=== PATIENT | male | born 1965 | race Caucasian/White ===

== ENCOUNTER 2016-10-26 11:47 | Emergency (ER) | payer MEDICAID, OTHER ==
[~2016-10-26 11:47] MED LIST: AMMO12CR4 TOP; ARTI99.0 OU; BUSP10TA PO; CETI10TA PO; COLA100C PO; DOCU100C PO; FLOM5CAP PO; FLUTISP; GABA300C3 PO; HYDR-3713 PO; IBUP600T26 PO; IRON65TA PO; LEVO75TA4 PO; LEXA1TAB PO; NAPR500T2 PO; OMEP40CA2 PO; ONDA4TAB6 PO; PERC5TAB6 PO; RISP0.5T3 PO; RISP2TAB3 PO; VITA500046 PO; VITMTA PO; ZOCO40TA PO
[2016-10-26] MEDS ORDERED: ONDANSETRON 4 MG ORAL DISINTEGRATING TAB (S0181) As Ordered ONE (12:34)
[2016-10-26] MEDS ORDERED: ACETAMINOPHEN 325 MG TAB As Ordered ONE (12:35)
--- NOTE | 2016-10-26 13:59 | EDDOCDS ---
Physician Documentation [facility] Name: Rinku Whelan Age: 51 yrs Sex: Male : 1965 Arrival Date: 10/26/2016 Time: 11:47 Bed I6 / 28 Private MD: Bladimir Ramirez MD Disposition: 10/26/16 13:41 Discharged to Home/Self Care. Impression: Nausea and vomiting - likely viral gastroenteritis, Diarrhea, unspecified, Other hemorrhoids - external, inflammed with mild bleeding. - Condition is Stable. - Discharge Instructions: Hemorrhoids, Viral Gastroenteritis. - Prescriptions for Anusol- HC 2.5 % Rectal Cream - Apply to affected area 1 application by TOPICAL route every 8 hours As needed; 30 gram. ZOFRAN ODT 4 mg Oral - dissolve 1 tablet by ORAL route every 8 hours As needed do not chew, do not swallow whole; 10 tablet. - Medication Reconciliation, Local Pharmacy Hours form. - Follow up: Bladimir Ramirez; When: Call to arrange an appointment; Reason: Recheck today's complaints. Follow up: Emergency Department; When: As needed; Reason: Worsening of conditions. - Problem is new. - Symptoms have improved. Historical: - Allergies: Codeine Sulfate (Vomit); - Home Meds: 1. buspirone 5 mg Oral tab 1 tab 2 times per day (Last dose: 10/26/2016 07:00) 2. docusate sodium 100 mg Oral cap 1 cap 2 times per day (Last dose: 10/26/2016 07:00) 3. ferrous sulfate 325 mg (65 mg iron) Oral tab 325 mg twice a day (Last dose: 10/26/2016 07:00) 4. Fish Oil 360-1,200 mg Oral cap twice a day (Last dose: 10/26/2016 07:00) 5. gabapentin 300 mg Oral cap 2 caps 2 caps in am, 2 caps at noon and 3 caps at HS (Last dose: 10/26/2016 07:00) 6. Lexapro 30 mg Oral once daily HS (Last dose: 10/25/2016) 7. risperidone 0.5 mg oral tab once daily HS (Last dose: 10/25/2016) 8. Synthroid 75 mcg Oral tab 1 tab once daily (Last dose: 10/26/2016 07:00) 9. tizanidine 4 mg oral cap 1 cap daily (Last dose: 10/25/2016) 10. Vitamin D Oral 1000 unit daily (Last dose: 10/26/2016 07:00) 11. Zocor 40 mg Oral tab 1 tab once daily (Last dose: 10/26/2016 07:00) 12. Zyrtec 10 mg Oral chew 1 tab once daily (Last dose: 10/26/2016 07:00) 13. aspirin 81 mg Oral tab 1 tab once daily (Last dose: 10/26/2016 07:00) 14. Protonix 40 mg Oral TbEC 1 tab once daily (Last dose: 10/26/2016 07:00) - PMHx: Depression; GERD; Hypercholesterolemia; Hypertension; Hypothyroidism; Kidney stones; Panic Attacks; Sciatica; - PSHx: Left foot surgery; Hemorrhoidectomy; Carpal Tunnel Repair- Right; - Social history: Smoking status: Patient states former smoker of tobacco. No barriers to communication noted, The patient speaks fluent Chilean, Speaks appropriately for age. - Family history: Not pertinent. - : The pt / caregiver states he / she is not on anticoagulants. Home medication list is obtained from the patient. - Exposure Risk Screening:: None identified. Vital Signs: 10/26 11:48 BP 134 / 83; Pulse 84; Resp 18 S; Temp 97.1(O); Pulse Ox 97% on R/A; Weight 129.27 kg / gr2 284.99 lbs (R); Height 5 ft. 8 in. (172.72 cm) (R); Pain 4/10; 13:41 BP 151 / 80; Pulse 57; Resp 20; Temp 97.6; Pulse Ox 96% ; Pain 4/10; jam1 11:48 Body Mass Index 43.33 (129.27 kg, 172.72 cm) gr2 MDM: 12:08 [facility] [place] was scanned into [employer] and attached to record. lg 12:32 Ondansetron ODT Oral Disintegrating Tablet 4 mg PO once ordered. ar2 12:32 Acetaminophen Tablet 975 mg PO once ordered. ar2 12:32 Undress patient appropriately for examination ordered. ar2 12:32 Misc. Nursing Order ordered. ar2 12:34 Financial registration complete. lg 13:00 Fluid Challenge ordered. ar2 Administered Medications: 12:38 Drug: Ondansetron ODT 4 mg [ondansetron 4 mg disintegrating tablet (1 tabs)] Route: PO; pml 12:38 Drug: Acetaminophen 975 mg [acetaminophen 325 mg tablet (3 tabs)] Route: PO; pml Signatures: Vivi Griffin RN RN dls Thom Curiel, Reg Reg lg Mariana Gallagher RN RN jo3 Rinku Alegria PA-C PAKeyshawn ar2 Fina Peterson RN RN pml The chart was reviewed and I authenticate all verbal orders and agree with the evaluation and treatment provided.Attachments: 12:08 [facility] Payment Agreement lg MTDD
--- NOTE | 2016-10-26 13:59 | EDDOCDS ---
Nurse's Notes [facility] Name: Rinku Whelan Age: 51 yrs Sex: Male : 1965 Arrival Date: 10/26/2016 Time: 11:47 Bed I6 / 28 Private MD: Bladimir Ramirez MD Diagnosis: Nausea and vomiting-likely viral gastroenteritis;Diarrhea, unspecified;Other hemorrhoids-external, inflammed with mild bleeding Presentation: 10/26 11:52 Presenting complaint: Patient states: Stomach cramps, STYLES and bright red blood rectally. jo3 No significant blood noted in toilet but has blood after a BM. History of bleeding hemorrhoids and hemorrhoidectomy. This patient has no additional risk factors. Adult Sepsis Screening: The patient does not have new or worsening altered mentation. Patient's respiratory rate is less than 22. Systolic blood pressure is greater than 100. Patient has a qSOFA score of 0- Negative Sepsis Screen. Suicide/Homicide risk assessment- the patient denies having any suicidal and/or homicidal ideations and does not present with any other emotional, behavioral or mental health complaints. Status: Patient is not a fast food services manager or dependent. Transition of care: patient was not received from another setting of care. 11:52 Acuity: PAULA Level 3 jo3 11:52 Method Of Arrival: Walkin/Carried/Asstd jo3 Triage Assessment: 11:58 Headache History: This headache is like all previous headaches. General: Appears in no jo3 apparent distress, comfortable, Behavior is appropriate for age, cooperative. Pain: Pain currently is 6 out of 10 on a pain scale. HIV screening NA for this visit Offered previously. Neurological: Level of Consciousness is awake, alert, Oriented to person, place, time. Respiratory: Airway is patent Respiratory effort is even, unlabored. Derm: Skin is pink, warm & dry. Historical: - Allergies: Codeine Sulfate (Vomit); - Home Meds: 1. buspirone 5 mg Oral tab 1 tab 2 times per day (Last dose: 10/26/2016 07:00) 2. docusate sodium 100 mg Oral cap 1 cap 2 times per day (Last dose: 10/26/2016 07:00) 3. ferrous sulfate 325 mg (65 mg iron) Oral tab 325 mg twice a day (Last dose: 10/26/2016 07:00) 4. Fish Oil 360-1,200 mg Oral cap twice a day (Last dose: 10/26/2016 07:00) 5. gabapentin 300 mg Oral cap 2 caps 2 caps in am, 2 caps at noon and 3 caps at HS (Last dose: 10/26/2016 07:00) 6. Lexapro 30 mg Oral once daily HS (Last dose: 10/25/2016) 7. risperidone 0.5 mg oral tab once daily HS (Last dose: 10/25/2016) 8. Synthroid 75 mcg Oral tab 1 tab once daily (Last dose: 10/26/2016 07:00) 9. tizanidine 4 mg oral cap 1 cap daily (Last dose: 10/25/2016) 10. Vitamin D Oral 1000 unit daily (Last dose: 10/26/2016 07:00) 11. Zocor 40 mg Oral tab 1 tab once daily (Last dose: 10/26/2016 07:00) 12. Zyrtec 10 mg Oral chew 1 tab once daily (Last dose: 10/26/2016 07:00) 13. aspirin 81 mg Oral tab 1 tab once daily (Last dose: 10/26/2016 07:00) 14. Protonix 40 mg Oral TbEC 1 tab once daily (Last dose: 10/26/2016 07:00) - PMHx: Depression; GERD; Hypercholesterolemia; Hypertension; Hypothyroidism; Kidney stones; Panic Attacks; Sciatica; - PSHx: Left foot surgery; Hemorrhoidectomy; Carpal Tunnel Repair- Right; - Social history: Smoking status: Patient states former smoker of tobacco. No barriers to communication noted, The patient speaks fluent French, Speaks appropriately for age. - Family history: Not pertinent. - : The pt / caregiver states he / she is not on anticoagulants. Home medication list is obtained from the patient. - Exposure Risk Screening:: None identified. Screenin:38 Screening information is obtained from the patient. Fall risk: No risks identified. pml Assistance ADL's: requires no assistance with activities of daily living. Abuse/DV Screen: The patient / caregiver reports he/she is: not in a situation that causes fear, pain or injury. Nutritional screening: No deficits noted. Advance Directives: Currently, there is no health care proxy. home support is adequate. Assessment: 12:38 General: Appears in no apparent distress, comfortable, Behavior is appropriate for age, pml cooperative. Pain: Location: scalp and abdomen Pain currently is 6 out of 10 on a pain scale. Neurological: Level of Consciousness is awake, alert, Oriented to person, place, time. Cardiovascular: Capillary refill < 3 seconds. Respiratory: Airway is patent Respiratory effort is even, unlabored, Respiratory pattern is regular, symmetrical. GI: Abdomen is non- distended. GI: Reports bloody stools. Derm: Skin is pink, warm & dry. Vital Signs: 11:48 BP 134 / 83; Pulse 84; Resp 18 S; Temp 97.1(O); Pulse Ox 97% on R/A; Weight 129.27 kg gr2 (R); Height 5 ft. 8 in. (172.72 cm) (R); Pain 4/10; 13:41 BP 151 / 80; Pulse 57; Resp 20; Temp 97.6; Pulse Ox 96% ; Pain 4/10; jam1 11:48 Body Mass Index 43.33 (129.27 kg, 172.72 cm) gr2 Vitals: 11:48 Log In Time: October 26, 2016 at 11:48. gr2 ED Course: 11:48 Patient visited by Marjorie Watts. gr2 11:48 Bladimir Ramirez is Private Physician. gr2 11:48 Patient moved to Waiting gr2 11:49 Patient visited by Marjorie Watts. gr2 11:49 Patient moved to Pre RCE gr2 11:54 Triage Initiated jo3 11:59 Patient visited by Mariana Gallagher RN. jo3 11:59 Patient moved to Triage 3 jo3 12:07 Patient name changed from Rinku\S\Shane\S\Eckerman\S\ to Rinku\S\J\S\Tip. EDMS 12:08 [facility] Payment Agreement was scanned into [employer] and attached to record. lg 12:26 Rinku Alegria PA-C is PHCP. ar2 12:26 Jordan Sy MD is Attending Physician. ar2 12:26 Patient visited by Rinku Alegria PA-C. ar2 12:36 Patient moved to I pml 12:38 The patient / caregiver is instructed regarding the plan of care and ED course. Patient pml has correct armband on for positive identification. Placed in gown. Bed in low position. Call light in reach. 12:40 Patient visited by Fina Peterson,ANNE. pml 13:40 Bladimir Ramirez is Referral Physician. ar2 13:58 No IV's were initiated during this patient's visit. No procedures done that require dls assistance. Administered Medications: 12:38 Drug: Ondansetron ODT 4 mg [ondansetron 4 mg disintegrating tablet (1 tabs)] Route: PO; pml 12:38 Drug: Acetaminophen 975 mg [acetaminophen 325 mg tablet (3 tabs)] Route: PO; pml Order Results: There are currently no results for this order. Outcome: 13:41 Discharge ordered by Provider. ar2 13:57 Discharge Assessment: Patient awake, alert and oriented x 3. No cognitive and/or dls functional deficits noted. Patient verbalized understanding of disposition instructions. patient administered narcotics - no. The following High Risk Discharge criteria are identified: None. Discharged to home ambulatory. Condition: stable. Discharge instructions given to patient, Instructed on discharge instructions, follow up and referral plans. medication usage, Demonstrated understanding of instructions, medications, Pt was receptive of discharge instructions/ teaching. Prescriptions given X 2. No special radiology studies were completed. Property :Personal belongings accompany Pt. 13:58 Patient left the ED. dls Signatures: Dispatcher [employer] EDMS Vivi Griffin RN RN Prerna Angeles, SYSTEMS ADMINISTRATOR SYSTEMS ADMINISTRATOR jam1 Thom Curiel, Reg Reg lg Mariana Gallagher RN RN jo3 Robertshaw, Aaron, PA-Renzo PA-C ar2 Fina Peterson,Marjorie Hernandez RN gr2 MTDD
--- NOTE | 2016-10-28 15:00 | EDDOCDS ---
Nurse's Notes [facility] Name: Rinku Whelan Age: 51 yrs Sex: Male : 1965 Arrival Date: 10/26/2016 Time: 11:47 Bed I6 / 28 Private MD: Bladimir Ramirez MD Diagnosis: Nausea and vomiting-likely viral gastroenteritis;Diarrhea, unspecified;Other hemorrhoids-external, inflammed with mild bleeding Presentation: 10/26 11:52 Presenting complaint: Patient states: Stomach cramps, STYLES and bright red blood rectally. jo3 No significant blood noted in toilet but has blood after a BM. History of bleeding hemorrhoids and hemorrhoidectomy. This patient has no additional risk factors. Adult Sepsis Screening: The patient does not have new or worsening altered mentation. Patient's respiratory rate is less than 22. Systolic blood pressure is greater than 100. Patient has a qSOFA score of 0- Negative Sepsis Screen. Suicide/Homicide risk assessment- the patient denies having any suicidal and/or homicidal ideations and does not present with any other emotional, behavioral or mental health complaints. Status: Patient is not a insurance service representative or dependent. Transition of care: patient was not received from another setting of care. 11:52 Acuity: PAULA Level 3 jo3 11:52 Method Of Arrival: Walkin/Carried/Asstd jo3 Triage Assessment: 11:58 Headache History: This headache is like all previous headaches. General: Appears in no jo3 apparent distress, comfortable, Behavior is appropriate for age, cooperative. Pain: Pain currently is 6 out of 10 on a pain scale. HIV screening NA for this visit Offered previously. Neurological: Level of Consciousness is awake, alert, Oriented to person, place, time. Respiratory: Airway is patent Respiratory effort is even, unlabored. Derm: Skin is pink, warm & dry. Historical: - Allergies: Codeine Sulfate (Vomit); - Home Meds: 1. buspirone 5 mg Oral tab 1 tab 2 times per day (Last dose: 10/26/2016 07:00) 2. docusate sodium 100 mg Oral cap 1 cap 2 times per day (Last dose: 10/26/2016 07:00) 3. ferrous sulfate 325 mg (65 mg iron) Oral tab 325 mg twice a day (Last dose: 10/26/2016 07:00) 4. Fish Oil 360-1,200 mg Oral cap twice a day (Last dose: 10/26/2016 07:00) 5. gabapentin 300 mg Oral cap 2 caps 2 caps in am, 2 caps at noon and 3 caps at HS (Last dose: 10/26/2016 07:00) 6. Lexapro 30 mg Oral once daily HS (Last dose: 10/25/2016) 7. risperidone 0.5 mg oral tab once daily HS (Last dose: 10/25/2016) 8. Synthroid 75 mcg Oral tab 1 tab once daily (Last dose: 10/26/2016 07:00) 9. tizanidine 4 mg oral cap 1 cap daily (Last dose: 10/25/2016) 10. Vitamin D Oral 1000 unit daily (Last dose: 10/26/2016 07:00) 11. Zocor 40 mg Oral tab 1 tab once daily (Last dose: 10/26/2016 07:00) 12. Zyrtec 10 mg Oral chew 1 tab once daily (Last dose: 10/26/2016 07:00) 13. aspirin 81 mg Oral tab 1 tab once daily (Last dose: 10/26/2016 07:00) 14. Protonix 40 mg Oral TbEC 1 tab once daily (Last dose: 10/26/2016 07:00) - PMHx: Depression; GERD; Hypercholesterolemia; Hypertension; Hypothyroidism; Kidney stones; Panic Attacks; Sciatica; - PSHx: Left foot surgery; Hemorrhoidectomy; Carpal Tunnel Repair- Right; - Social history: Smoking status: Patient states former smoker of tobacco. No barriers to communication noted, The patient speaks fluent Yoruba, Speaks appropriately for age. - Family history: Not pertinent. - : The pt / caregiver states he / she is not on anticoagulants. Home medication list is obtained from the patient. - Exposure Risk Screening:: None identified. Screenin:38 Screening information is obtained from the patient. Fall risk: No risks identified. pml Assistance ADL's: requires no assistance with activities of daily living. Abuse/DV Screen: The patient / caregiver reports he/she is: not in a situation that causes fear, pain or injury. Nutritional screening: No deficits noted. Advance Directives: Currently, there is no health care proxy. home support is adequate. Assessment: 12:38 General: Appears in no apparent distress, comfortable, Behavior is appropriate for age, pml cooperative. Pain: Location: scalp and abdomen Pain currently is 6 out of 10 on a pain scale. Neurological: Level of Consciousness is awake, alert, Oriented to person, place, time. Cardiovascular: Capillary refill < 3 seconds. Respiratory: Airway is patent Respiratory effort is even, unlabored, Respiratory pattern is regular, symmetrical. GI: Abdomen is non- distended. GI: Reports bloody stools. Derm: Skin is pink, warm & dry. Vital Signs: 11:48 BP 134 / 83; Pulse 84; Resp 18 S; Temp 97.1(O); Pulse Ox 97% on R/A; Weight 129.27 kg gr2 (R); Height 5 ft. 8 in. (172.72 cm) (R); Pain 4/10; 13:41 BP 151 / 80; Pulse 57; Resp 20; Temp 97.6; Pulse Ox 96% ; Pain 4/10; jam1 11:48 Body Mass Index 43.33 (129.27 kg, 172.72 cm) gr2 Vitals: 11:48 Log In Time: October 26, 2016 at 11:48. gr2 ED Course: 11:48 Patient visited by Marjorie Watts. gr2 11:48 Bladimir Ramirez is Private Physician. gr2 11:48 Patient moved to Waiting gr2 11:49 Patient visited by Marjorie Watts. gr2 11:49 Patient moved to Pre RCE gr2 11:54 Triage Initiated jo3 11:59 Patient visited by Mariana Gallagher RN. jo3 11:59 Patient moved to Triage 3 jo3 12:07 Patient name changed from Rinku\S\Shane\S\[place]\S\ to Rinku\S\J\S\Tip. EDMS 12:08 [facility] Payment Agreement was scanned into [employer] and attached to record. lg 12:26 Rinku Alegria PA-C is PHCP. ar2 12:26 Jordan Sy MD is Attending Physician. ar2 12:26 Patient visited by Rinku Alegria PA-C. ar2 12:36 Patient moved to I pml 12:38 The patient / caregiver is instructed regarding the plan of care and ED course. Patient pml has correct armband on for positive identification. Placed in gown. Bed in low position. Call light in reach. 12:40 Patient visited by Fina Peterson,ANNE. pml 13:40 Bladimir Ramirez is Referral Physician. ar2 13:58 No IV's were initiated during this patient's visit. No procedures done that require dls assistance. 20:47 T-Sheet-- Draft Copy was scanned into [employer] and attached to record. klr Administered Medications: 12:38 Drug: Ondansetron ODT 4 mg [ondansetron 4 mg disintegrating tablet (1 tabs)] Route: PO; pml 12:38 Drug: Acetaminophen 975 mg [acetaminophen 325 mg tablet (3 tabs)] Route: PO; pml Order Results: There are currently no results for this order. Outcome: 13:41 Discharge ordered by Provider. ar2 13:57 Discharge Assessment: Patient awake, alert and oriented x 3. No cognitive and/or dls functional deficits noted. Patient verbalized understanding of disposition instructions. patient administered narcotics - no. The following High Risk Discharge criteria are identified: None. Discharged to home ambulatory. Condition: stable. Discharge instructions given to patient, Instructed on discharge instructions, follow up and referral plans. medication usage, Demonstrated understanding of instructions, medications, Pt was receptive of discharge instructions/ teaching. Prescriptions given X 2. No special radiology studies were completed. Property :Personal belongings accompany Pt. 13:58 Patient left the ED. dls Signatures: Dispatcher [employer] EDMS Vivi Griffin RN RN dls Murphy, Jane, COOK PRESSURE COOK PRESSURE jam1 Thom Curiel, Colten Reg Mariana Marr RN RN jo3 Robertshaw, Aaron, PA-C PA-C ar2 Fina Peterson,Marjorie Hernandez RN gr2 Aster Andrade Chart Complete MTDD
--- NOTE | 2016-10-28 15:00 | EDDOCDS ---
Physician Documentation [facility] Name: Rinku Whelan Age: 51 yrs Sex: Male : 1965 Arrival Date: 10/26/2016 Time: 11:47 Bed I6 / 28 Private MD: Bladimir Ramirez MD Disposition: 10/26/16 13:41 Discharged to Home/Self Care. Impression: Nausea and vomiting - likely viral gastroenteritis, Diarrhea, unspecified, Other hemorrhoids - external, inflammed with mild bleeding. - Condition is Stable. - Discharge Instructions: Hemorrhoids, Viral Gastroenteritis. - Prescriptions for Anusol- HC 2.5 % Rectal Cream - Apply to affected area 1 application by TOPICAL route every 8 hours As needed; 30 gram. ZOFRAN ODT 4 mg Oral - dissolve 1 tablet by ORAL route every 8 hours As needed do not chew, do not swallow whole; 10 tablet. - Medication Reconciliation, Local Pharmacy Hours form. - Follow up: Bladimir Ramirez; When: Call to arrange an appointment; Reason: Recheck today's complaints. Follow up: Emergency Department; When: As needed; Reason: Worsening of conditions. - Problem is new. - Symptoms have improved. Historical: - Allergies: Codeine Sulfate (Vomit); - Home Meds: 1. buspirone 5 mg Oral tab 1 tab 2 times per day (Last dose: 10/26/2016 07:00) 2. docusate sodium 100 mg Oral cap 1 cap 2 times per day (Last dose: 10/26/2016 07:00) 3. ferrous sulfate 325 mg (65 mg iron) Oral tab 325 mg twice a day (Last dose: 10/26/2016 07:00) 4. Fish Oil 360-1,200 mg Oral cap twice a day (Last dose: 10/26/2016 07:00) 5. gabapentin 300 mg Oral cap 2 caps 2 caps in am, 2 caps at noon and 3 caps at HS (Last dose: 10/26/2016 07:00) 6. Lexapro 30 mg Oral once daily HS (Last dose: 10/25/2016) 7. risperidone 0.5 mg oral tab once daily HS (Last dose: 10/25/2016) 8. Synthroid 75 mcg Oral tab 1 tab once daily (Last dose: 10/26/2016 07:00) 9. tizanidine 4 mg oral cap 1 cap daily (Last dose: 10/25/2016) 10. Vitamin D Oral 1000 unit daily (Last dose: 10/26/2016 07:00) 11. Zocor 40 mg Oral tab 1 tab once daily (Last dose: 10/26/2016 07:00) 12. Zyrtec 10 mg Oral chew 1 tab once daily (Last dose: 10/26/2016 07:00) 13. aspirin 81 mg Oral tab 1 tab once daily (Last dose: 10/26/2016 07:00) 14. Protonix 40 mg Oral TbEC 1 tab once daily (Last dose: 10/26/2016 07:00) - PMHx: Depression; GERD; Hypercholesterolemia; Hypertension; Hypothyroidism; Kidney stones; Panic Attacks; Sciatica; - PSHx: Left foot surgery; Hemorrhoidectomy; Carpal Tunnel Repair- Right; - Social history: Smoking status: Patient states former smoker of tobacco. No barriers to communication noted, The patient speaks fluent Malian, Speaks appropriately for age. - Family history: Not pertinent. - : The pt / caregiver states he / she is not on anticoagulants. Home medication list is obtained from the patient. - Exposure Risk Screening:: None identified. Vital Signs: 10/26 11:48 BP 134 / 83; Pulse 84; Resp 18 S; Temp 97.1(O); Pulse Ox 97% on R/A; Weight 129.27 kg / gr2 284.99 lbs (R); Height 5 ft. 8 in. (172.72 cm) (R); Pain 4/10; 13:41 BP 151 / 80; Pulse 57; Resp 20; Temp 97.6; Pulse Ox 96% ; Pain 4/10; jam1 11:48 Body Mass Index 43.33 (129.27 kg, 172.72 cm) gr2 MDM: 12:08 [facility] [place] [place] Payment Agreement was scanned into [employer] and attached to record. lg 12:32 Ondansetron ODT Oral Disintegrating Tablet 4 mg PO once ordered. ar2 12:32 Acetaminophen Tablet 975 mg PO once ordered. ar2 12:32 Undress patient appropriately for examination ordered. ar2 12:32 Misc. Nursing Order ordered. ar2 12:34 Financial registration complete. lg 13:00 Fluid Challenge ordered. ar2 20:47 T-Sheet-- Draft Copy was scanned into [employer] and attached to record. klr Administered Medications: 12:38 Drug: Ondansetron ODT 4 mg [ondansetron 4 mg disintegrating tablet (1 tabs)] Route: PO; pml 12:38 Drug: Acetaminophen 975 mg [acetaminophen 325 mg tablet (3 tabs)] Route: PO; pml Signatures: Vivi Griffin RN RN dls Thom Curiel, Colten Reg lg Mariana Gallagher RN RN jo3 Rinku Alegria PA-C PAKeyshawn ar2 Fina Peterson RN RN pml Redder, Kathie klr The chart was reviewed and I authenticate all verbal orders and agree with the evaluation and treatment provided.Attachments: 12:08 [facility] Payment Agreement lg 20:47 T-Sheet-- Draft Copy klr Chart Complete MTDD
--- NOTE | 2016-10-28 15:00 | EDDOCDS ---
Physician Documentation [facility] Name: Rinku Whelan Age: 51 yrs Sex: Male : 1965 Arrival Date: 10/26/2016 Time: 11:47 Bed I6 / 28 Private MD: Bladimir Ramirez MD Disposition: 10/26/16 13:41 Discharged to Home/Self Care. Impression: Nausea and vomiting - likely viral gastroenteritis, Diarrhea, unspecified, Other hemorrhoids - external, inflammed with mild bleeding. - Condition is Stable. - Discharge Instructions: Hemorrhoids, Viral Gastroenteritis. - Prescriptions for Anusol- HC 2.5 % Rectal Cream - Apply to affected area 1 application by TOPICAL route every 8 hours As needed; 30 gram. ZOFRAN ODT 4 mg Oral - dissolve 1 tablet by ORAL route every 8 hours As needed do not chew, do not swallow whole; 10 tablet. - Medication Reconciliation, Local Pharmacy Hours form. - Follow up: Bladimir Ramirez; When: Call to arrange an appointment; Reason: Recheck today's complaints. Follow up: Emergency Department; When: As needed; Reason: Worsening of conditions. - Problem is new. - Symptoms have improved. Historical: - Allergies: Codeine Sulfate (Vomit); - Home Meds: 1. buspirone 5 mg Oral tab 1 tab 2 times per day (Last dose: 10/26/2016 07:00) 2. docusate sodium 100 mg Oral cap 1 cap 2 times per day (Last dose: 10/26/2016 07:00) 3. ferrous sulfate 325 mg (65 mg iron) Oral tab 325 mg twice a day (Last dose: 10/26/2016 07:00) 4. Fish Oil 360-1,200 mg Oral cap twice a day (Last dose: 10/26/2016 07:00) 5. gabapentin 300 mg Oral cap 2 caps 2 caps in am, 2 caps at noon and 3 caps at HS (Last dose: 10/26/2016 07:00) 6. Lexapro 30 mg Oral once daily HS (Last dose: 10/25/2016) 7. risperidone 0.5 mg oral tab once daily HS (Last dose: 10/25/2016) 8. Synthroid 75 mcg Oral tab 1 tab once daily (Last dose: 10/26/2016 07:00) 9. tizanidine 4 mg oral cap 1 cap daily (Last dose: 10/25/2016) 10. Vitamin D Oral 1000 unit daily (Last dose: 10/26/2016 07:00) 11. Zocor 40 mg Oral tab 1 tab once daily (Last dose: 10/26/2016 07:00) 12. Zyrtec 10 mg Oral chew 1 tab once daily (Last dose: 10/26/2016 07:00) 13. aspirin 81 mg Oral tab 1 tab once daily (Last dose: 10/26/2016 07:00) 14. Protonix 40 mg Oral TbEC 1 tab once daily (Last dose: 10/26/2016 07:00) - PMHx: Depression; GERD; Hypercholesterolemia; Hypertension; Hypothyroidism; Kidney stones; Panic Attacks; Sciatica; - PSHx: Left foot surgery; Hemorrhoidectomy; Carpal Tunnel Repair- Right; - Social history: Smoking status: Patient states former smoker of tobacco. No barriers to communication noted, The patient speaks fluent Ecuadorean, Speaks appropriately for age. - Family history: Not pertinent. - : The pt / caregiver states he / she is not on anticoagulants. Home medication list is obtained from the patient. - Exposure Risk Screening:: None identified. Vital Signs: 10/26 11:48 BP 134 / 83; Pulse 84; Resp 18 S; Temp 97.1(O); Pulse Ox 97% on R/A; Weight 129.27 kg / gr2 284.99 lbs (R); Height 5 ft. 8 in. (172.72 cm) (R); Pain 4/10; 13:41 BP 151 / 80; Pulse 57; Resp 20; Temp 97.6; Pulse Ox 96% ; Pain 4/10; jam1 11:48 Body Mass Index 43.33 (129.27 kg, 172.72 cm) gr2 MDM: 12:08 [facility] [place] Payment Agreement was scanned into [employer] and attached to record. lg 12:32 Ondansetron ODT Oral Disintegrating Tablet 4 mg PO once ordered. ar2 12:32 Acetaminophen Tablet 975 mg PO once ordered. ar2 12:32 Undress patient appropriately for examination ordered. ar2 12:32 Misc. Nursing Order ordered. ar2 12:34 Financial registration complete. lg 13:00 Fluid Challenge ordered. ar2 20:47 T-Sheet-- Draft Copy was scanned into [employer] and attached to record. klr Administered Medications: 12:38 Drug: Ondansetron ODT 4 mg [ondansetron 4 mg disintegrating tablet (1 tabs)] Route: PO; pml 12:38 Drug: Acetaminophen 975 mg [acetaminophen 325 mg tablet (3 tabs)] Route: PO; pml Signatures: Vivi Griffin RN RN dls Thom Curiel, Colten Reg lg Mariana Gallagher RN RN jo3 Rinku Alegria PA-C PAKeyshawn ar2 Fina Peterson RN RN pml Redder, Kathie klr The chart was reviewed and I authenticate all verbal orders and agree with the evaluation and treatment provided.Attachments: 12:08 [facility] Payment Agreement lg 20:47 T-Sheet-- Draft Copy klr Chart Complete MTDD
== END 2016-10-26 13:58 | disposition home or self-care (01) ==
LOC: M ED 11:47
DX: A08.4 Viral intestinal infection, unspecified (principal); K64.4 Residual hemorrhoidal skin tags; F32.9 Major depressive disorder, single episode, unspecified; K21.9 Gastro-esophageal reflux disease without esophagitis; E78.00 Pure hypercholesterolemia, unspecified; I10 Essential (primary) hypertension; F41.0 Panic disorder [episodic paroxysmal anxiety]; Z87.891 Personal history of nicotine dependence; Z79.82 Long term (current) use of aspirin; Z79.899 Other long term (current) drug therapy; Z88.5 Allergy status to narcotic agent

== ENCOUNTER 2016-11-05 10:01 | Emergency (ER) | payer OTHER ==
[2016-11-05] MEDS ORDERED: NITROGLYCERIN 0.4 MG SUBL TABLET As Ordered ONE (12:10)
[2016-11-05 12:15] LABS: BASO % 0.3 % (0.0-1.0); EOS # 0.1 K/mm3 (0.0-0.50); EOS % 1.2 % (0.0-3.0); LARGE UNSTAINED CELL # 0.2 K/mm3 (0.0-0.4); LYMPH # 1.1 K/mm3 (1.5-4.5); LYMPH % 15.8 % (24.0-44.0); MEAN CORPUSCULAR HEMOGLOBIN 30.7 pg (27.0-33.0); MEAN CORPUSCULAR VOLUME 93.1 fl (80.0-96.0); MONO # 0.7 K/mm3 (0.0-0.8); MONO % 9.2 % (0.0-5.0); NEUTROPHILS % 70.4 % (36.0-66.0); PLATELET COUNT, AUTOMATED 190 k/mm3 (150-450); WHITE BLOOD COUNT 7.2 K/mm3 (4.0-10.0)
[2016-11-05 12:28] LABS: ANION GAP 5 MEQ/L (8-16); BLOOD UREA NITROGEN 16 MG/DL (7-18); CALCIUM LEVEL 9.2 MG/DL (8.5-10.1); CARBON DIOXIDE LEVEL 30 MEQ/L (21-32); CHLORIDE LEVEL 106 MEQ/L (98-107); CREATININE FOR GFR 1.33 MG/DL (0.70-1.30); GLOMERULAR FILTRATION RATE > 60.0 (>60); GLUCOSE, FASTING 119 MG/DL (70-105); POTASSIUM SERUM 4.4 MEQ/L (3.5-5.1); SODIUM LEVEL 141 MEQ/L (136-145)
[2016-11-05] MEDS ORDERED: ACETAMINOPHEN 325 MG TAB As Ordered ONE (12:41)
--- NOTE | 2016-11-05 13:26 | REP ---
CHEST PA AND LATERAL: 11/05/2016. Clinical history: Chest pain. Comparison: portable chest 07/17/2016, two-view chest 07/16/2016. Findings: The lung johnson are well inflated. There is a bilateral lateral pleural thickening unchanged. There is no effusion or acute infiltrate. The heart, mediastinal and hilar contours are normal. I see no parenchymal nodule or mass. The airway is intact. The aorta is normal for age. There is no widening of the mediastinum. The bony thorax shows no compression deformity. There is no free air under the diaphragm. Impression: 1. No acute cardiopulmonary disease, stable chest compared to 07/2016 priors. Signed by Brannon Kim MD 11/05/2016 04:45 P
--- NOTE | 2016-11-05 16:55 | EDDOCDS ---
Physician Documentation [facility] Name: Rinku Whelan Age: 51 yrs Sex: Male : 1965 Arrival Date: 11/05/2016 Time: 10:01 Bed 14 Private MD: Bladimir Ramirez Disposition: 11/05/16 16:34 Discharged to Home/Self Care. Impression: Chest pain, unspecified. - Condition is Stable. - Discharge Instructions: Nonspecific Chest Pain. - Medication Reconciliation, Local Pharmacy Hours form. - Follow up: Bladimir Ramirez MD; When: 2 - 3 days; Reason: Recheck today's complaints. Follow up: Yasir Juárez MD; When: 2 - 3 days; Reason: Recheck today's complaints. - Problem is new. - Symptoms are resolved. - Notes: You were seen in the ED for chest pain. Bloodwork along with EKG of the heart and chest XRay showed no acute findings. We have discussed the case with your advertising columnist as well. As you are feeling better you may return home to follow up with your primary doctor and your advertising columnist for further evaluation - please call to arrange to be seen.
Return to the ED for any return of chest pain, trouble breathing, lightheadedness, loss of consciousness or any other concerns. Historical: - Allergies: Codeine Sulfate (Vomit); - Home Meds: 1. gabapentin 300 mg Oral cap 2 caps 2 caps in am, 2 caps at noon and 3 caps at HS (Last dose: 11/05/2016 06:30) 2. aspirin 81 mg Oral tab 1 tab once daily (Last dose: 11/05/2016 06:30) 3. docusate sodium 100 mg Oral cap 1 cap 2 times per day (Last dose: 11/04/2016) 4. buspirone 5 mg Oral tab 1 tab 2 times per day (Last dose: 11/05/2016 06:30) 5. ferrous sulfate 325 mg (65 mg iron) Oral tab 325 mg twice a day (Last dose: 11/05/2016 06:30) 6. Fish Oil 360-1,200 mg Oral cap twice a day (Last dose: 11/05/2016 06:30) 7. Synthroid 75 mcg Oral tab 1 tab once daily (Last dose: 11/05/2016 06:30) 8. risperidone 0.5 mg oral tab once daily HS (Last dose: 11/04/2016) 9. Lexapro 30 mg Oral once daily HS (Last dose: 11/04/2016) 10. Protonix 40 mg Oral TbEC 1 tab once daily (Last dose: 11/05/2016 06:30) 11. tizanidine 4 mg oral cap 1 cap daily (Last dose: 11/05/2016 06:30) 12. Vitamin D Oral 1000 unit daily (Last dose: 11/05/2016 06:30) 13. Zocor 40 mg Oral tab 1 tab once daily (Last dose: 11/05/2016 06:30) 14. Zyrtec 10 mg Oral chew 1 tab once daily (Last dose: 11/04/2016) - PMHx: GERD; Hypercholesterolemia; Hypertension; Depression; Panic Attacks; Hypothyroidism; Kidney stones; Sciatica; - PSHx: Left foot surgery; Hemorrhoidectomy; Carpal Tunnel Repair- Right; - Social history: Smoking status: Patient states former smoker of tobacco. No barriers to communication noted, The patient speaks fluent Beninese, Speaks appropriately for age. - Family history: Not pertinent. - : The pt / caregiver states he / she is not on anticoagulants. Home medication list is obtained from the patient. - Exposure Risk Screening:: None identified. Vital Signs: 11/05 10:10 BP 135 / 90 (auto/); Pulse 73; Pulse Ox 96% on R/A; Pain 7/10; dsf 10:14 Resp 18; Temp 98(O); Weight 117.03 kg / 258.01 lbs; Height 5 ft. 8 in. (172.72 cm); cmb Pain 7/10; 10:55 BP 137 / 85 (auto/); dsf 10:55 Pulse 64 MON; Pulse Ox 95% ; dsf 11:10 BP 126 / 78 (auto/); dsf 11:10 Pulse 64 MON; Pulse Ox 95% ; dsf 11:25 BP 132 / 80 (auto/); dsf 11:25 Pulse 64 MON; Pulse Ox 94% ; dsf 11:40 BP 120 / 73 (auto/); dsf 11:40 Pulse 60 MON; Pulse Ox 94% ; dsf 11:55 BP 126 / 75 (auto/); dsf 11:55 Pulse 60 MON; Pulse Ox 95% ; dsf 12:10 BP 128 / 73 (auto/); dsf 12:10 Pulse 64 MON; Pulse Ox 95% ; dsf 12:16 Pain 0/10; dsf 12:25 BP 120 / 74 (auto/); dsf 12:25 Pulse 58 MON; Pulse Ox 94% ; dsf 12:40 BP 124 / 77 (auto/); dsf 12:40 Pulse 64 MON; Pulse Ox 94% ; dsf 12:55 BP 132 / 81 (auto/); dsf 12:55 Pulse 58 MON; Pulse Ox 94% ; dsf 13:10 BP 126 / 76 (auto/); dsf 13:10 Pulse 60 MON; Pulse Ox 95% ; dsf 13:24 Pain 5/10; dsf 13:25 Pulse 76 MON; Pulse Ox 92% ; dsf 13:25 BP 117 / 74 (auto/); dsf 13:26 Pulse 74 MON; Pulse Ox 92% ; dsf 13:31 Pain 2/10; dsf 13:40 BP 109 / 61 (auto/); dsf 13:40 Pulse 66 MON; Pulse Ox 93% ; dsf 13:55 BP 105 / 63 (auto/); dsf 13:55 Pulse 58 MON; Pulse Ox 95% ; dsf 14:10 Pulse 64 MON; Pulse Ox 94% ; dsf 14:10 BP 109 / 71 (auto/); Resp 20; Temp 98.0(TE); Pain 2/10; dsf 14:25 BP 108 / 69 (auto/); dsf 14:25 Pulse 64 MON; Pulse Ox 94% ; dsf 14:40 BP 118 / 70 (auto/); dsf 14:40 Pulse 64 MON; Pulse Ox 95% ; dsf 14:55 BP 111 / 67 (auto/); dsf 14:55 Pulse 62 MON; Pulse Ox 95% ; dsf 15:10 Pulse 62 MON; Pulse Ox 95% ; dsf 15:10 BP 116 / 71 (auto/); dsf 15:25 BP 118 / 73 (auto/); dsf 15:25 Pulse 64 MON; Pulse Ox 94% ; dsf 15:39 Pulse 60 MON; Pulse Ox 95% ; dsf 15:40 Pulse 62 MON; Pulse Ox 95% ; dsf 15:40 BP 111 / 75 (auto/); dsf 15:55 BP 111 / 73 (auto/); dsf 15:55 Pulse 62 MON; Pulse Ox 95% ; dsf 16:10 BP 113 / 73 (auto/); dsf 16:10 Pulse 62 MON; Pulse Ox 95% ; dsf 16:43 BP 118 / 72; Pulse 69; Resp 20; Temp 98.9(TE); Pulse Ox 96% on R/A; Pain 0/10; dsf 10:14 Body Mass Index 39.23 (117.03 kg, 172.72 cm) cmb MDM: 10:07 ECG WITH READING ER PHYS+CARDIAG ordered. EDMS 12:04 Nitrostat 0.4 mg Sublingual every 5 minutes; hold if SBP<90mmHg.Document Pain Score br1 Response to Each Dose x3 ordered. 12:04 Web Retailer/Pulse Ox/q 30 min VS ordered. br1 12:04 IV Saline Lock ordered. br1 12:04 Rhythm Strip to chart ordered. br1 12:04 Undress patient appropriately for examination ordered. br1 12:05 Basic Metabolic Profile Ordered. EDMS 12:05 CBC with Diff Ordered. EDMS 12:05 Cardiac Injury Profile Ordered. EDMS 12:05 D-Dimer Quant Ordered. EDMS 12:05 Troponin Ordered. EDMS 12:05 Chest, 2 View (pa\E\lat) Ordered. EDMS 12:28 Acetaminophen Tablet 650 mg PO once; prn pain ordered. br1 12:28 CBC with Diff Reviewed. br1 12:28 D-Dimer Quant Reviewed. br1 13:07 Financial registration complete. mm15 13:17 Basic Metabolic Profile Reviewed. br1 13:17 Cardiac Injury Profile Reviewed. br1 13:17 Troponin Reviewed. br1 13:20 Repeat EKG (put time details section) ordered. br1 13:20 Redraw CIP &Troponin (put time in details section) ordered. br1 13:20 Admit to ED Observation status ordered. br1 13:27 Redraw CIP &Troponin (put time in details section) complete. cmb 13:27 Repeat EKG (put time details section) complete. cmb 13:27 CARDIAC INJURY PROFILE Ordered. EDMS 13:28 ECG WITH READING ER PHYS ordered. EDMS 13:34 TROPONIN Ordered. EDMS 14:17 [facility] [place] Payment Agreement was scanned into [employer] and attached to record. mm15 16:19 CARDIAC INJURY PROFILE Reviewed. br1 16:19 TROPONIN Reviewed. br1 16:19 Chest, 2 View (pa\E\lat) Reviewed. br1 Administered Medications: 12:11 Drug: Nitrostat 0.4 mg [Nitrostat 0.4 mg sublingual tablet (1 tabs)] Route: Sublingual; dsf 12:16 Follow up: Pain 0/10 Adult; see charted VS dsf 13:00 Drug: Acetaminophen 650 mg [acetaminophen 325 mg tablet (2 tabs)] Route: PO; dsf 13:19 Drug: Nitrostat 0.4 mg [Nitrostat 0.4 mg sublingual tablet (1 tabs)] Route: Sublingual; dsf 13:24 Follow up: Pain 5/10 Adult; see trend VS dsf 13:26 Drug: Nitrostat 0.4 mg [Nitrostat 0.4 mg sublingual tablet (1 tabs)] Route: Sublingual; dsf 13:31 Follow up: Pain 2/10 Adult dsf Signatures: Dispatcher [employer] EDMS Jordan Sy MD MD br1 Kathy Onofre RN RN dsf Nona Lopes Marlynn mm15 The chart was reviewed and I authenticate all verbal orders and agree with the evaluation and treatment provided.Corrections: (The following items were deleted from the chart) 13:32 13:27 TROPONIN ordered. EDMS EDMS Attachments: 14:17 [facility] [place] Payment Agreement mm15 MTDD
--- NOTE | 2016-11-05 16:55 | EDDOCDS ---
Nurse's Notes [facility] Name: Rinku Whelan Age: 51 yrs Sex: Male : 1965 Arrival Date: 11/05/2016 Time: 10:01 Bed 14 Private MD: Bladimir Ramirez Diagnosis: Chest pain, unspecified Presentation: 11/05 10:05 Presenting complaint: EMS states: pt woke up not feeling well this morning., pt c/o dsf chest pain 10. Pt tried to eat breakfast and vomited. EMS gave ASA. Aspirin was taken [employer]. Suicide/Homicide risk assessment- the patient denies having any suicidal and/or homicidal ideations and does not present with any other emotional, behavioral or mental health complaints. Status: Patient is not a patient service representative or dependent. Transition of care: patient was not received from another setting of care. 10:05 Acuity: PAULA Level 3 dsf 10:05 Method Of Arrival: Ambulance dsf 10:14 Adult Sepsis Screening: The patient does not have new or worsening altered mentation. dsf Patient's respiratory rate is less than 22. Systolic blood pressure is greater than 100. Patient has a qSOFA score of 0- Negative Sepsis Screen. Triage Assessment: 10:10 General: Appears in no apparent distress, Behavior is appropriate for age, cooperative. dsf Pain: Location: anterior aspect of left upper chest Pain currently is 7 out of 10 on a pain scale. Pain does not radiate. Quality of pain is described as sharp, Pain began 4 hours ago Is continuous Alleviated by nothing. Aggravated by nothing. HIV screening NA for this visit Offered previously. The patient is triaged at the bedside. See Assessment in Nurses Notes section of ED record. Neurological: Level of Consciousness is awake, alert, Oriented to person, place, time. Cardiovascular: Capillary refill < 3 seconds Heart tones S1 S2 present Rhythm is sinus rhythm No ectopy. Chest pain is described as Pain is 7 out of 10 on a pain scale. quality is sharp is located in left anterior chest wall radiates Does not radiate. episodes are continuous began 4 hours prior to arrival is aggravated by nothing is alleviated by nothing. Respiratory: Airway is patent Respiratory effort is even, unlabored, Respiratory pattern is regular, symmetrical, Breath sounds are clear bilaterally. Denies shortness of breath. GI: Abdomen is obese, Bowel sounds present X 4 quads. Abd is soft and non tender X 4 quads. Reports nausea. Derm: Skin is pink, warm & dry. Historical: - Allergies: Codeine Sulfate (Vomit); - Home Meds: 1. gabapentin 300 mg Oral cap 2 caps 2 caps in am, 2 caps at noon and 3 caps at HS (Last dose: 11/05/2016 06:30) 2. aspirin 81 mg Oral tab 1 tab once daily (Last dose: 11/05/2016 06:30) 3. docusate sodium 100 mg Oral cap 1 cap 2 times per day (Last dose: 11/04/2016) 4. buspirone 5 mg Oral tab 1 tab 2 times per day (Last dose: 11/05/2016 06:30) 5. ferrous sulfate 325 mg (65 mg iron) Oral tab 325 mg twice a day (Last dose: 11/05/2016 06:30) 6. Fish Oil 360-1,200 mg Oral cap twice a day (Last dose: 11/05/2016 06:30) 7. Synthroid 75 mcg Oral tab 1 tab once daily (Last dose: 11/05/2016 06:30) 8. risperidone 0.5 mg oral tab once daily HS (Last dose: 11/04/2016) 9. Lexapro 30 mg Oral once daily HS (Last dose: 11/04/2016) 10. Protonix 40 mg Oral TbEC 1 tab once daily (Last dose: 11/05/2016 06:30) 11. tizanidine 4 mg oral cap 1 cap daily (Last dose: 11/05/2016 06:30) 12. Vitamin D Oral 1000 unit daily (Last dose: 11/05/2016 06:30) 13. Zocor 40 mg Oral tab 1 tab once daily (Last dose: 11/05/2016 06:30) 14. Zyrtec 10 mg Oral chew 1 tab once daily (Last dose: 11/04/2016) - PMHx: GERD; Hypercholesterolemia; Hypertension; Depression; Panic Attacks; Hypothyroidism; Kidney stones; Sciatica; - PSHx: Left foot surgery; Hemorrhoidectomy; Carpal Tunnel Repair- Right; - Social history: Smoking status: Patient states former smoker of tobacco. No barriers to communication noted, The patient speaks fluent Uzbek, Speaks appropriately for age. - Family history: Not pertinent. - : The pt / caregiver states he / she is not on anticoagulants. Home medication list is obtained from the patient. - Exposure Risk Screening:: None identified. Screenin:12 Screening information is obtained from the patient. Fall risk: No risks identified. dsf Assistance ADL's: requires no assistance with activities of daily living. Abuse/DV Screen: The patient / caregiver reports he/she is: not in a situation that causes fear, pain or injury. Nutritional screening: No deficits noted. Advance Directives: Currently, there is no health care proxy. home support is adequate. Assessment: 10:10 General: see triage assessment . dsf 11:07 Adult Sepsis Screening: The patient does not have new or worsening altered mentation. dsf Patient's respiratory rate is less than 22. Systolic blood pressure is greater than 100. Patient has a qSOFA score of 0- Negative Sepsis Screen. General: Appears in no apparent distress, Behavior is appropriate for age, cooperative. Neurological: Level of Consciousness is awake, alert. Cardiovascular: Capillary refill < 3 seconds Rhythm is sinus rhythm No ectopy. Respiratory: Airway is patent Respiratory effort is even, unlabored, Respiratory pattern is regular, symmetrical. Derm: Skin is pink, warm & dry. 12:07 General: Appears in no apparent distress, comfortable, Behavior is appropriate for age, dsf cooperative. Pain: Location: anterior aspect of left upper chest Pain currently is 9 out of 10 on a pain scale. Quality of pain is described as sharp. Neurological: Level of Consciousness is awake, alert, Oriented to person, place, time. Cardiovascular: Capillary refill < 3 seconds Rhythm is sinus rhythm No ectopy. Respiratory: Airway is patent Respiratory effort is even, unlabored, Respiratory pattern is regular, symmetrical. Derm: Skin is pink, warm & dry. 12:37 Adult Sepsis Screening: The patient does not have new or worsening altered mentation. dsf Patient's respiratory rate is less than 22. Systolic blood pressure is greater than 100. Patient has a qSOFA score of 0- Negative Sepsis Screen. General: Appears in no apparent distress, comfortable, Behavior is appropriate for age, cooperative. Pain: Location: head Pain currently is 10 out of 10 on a pain scale. Neurological: Level of Consciousness is awake, alert. Cardiovascular: Capillary refill < 3 seconds Rhythm is sinus rhythm No ectopy. Chest pain is denied. Respiratory: Airway is patent Respiratory effort is even, unlabored, Respiratory pattern is regular, symmetrical. Derm: Skin is pink, warm & dry. 13:01 General: Appears in no apparent distress, comfortable, Behavior is appropriate for age, dsf cooperative. Pain: Location: anterior aspect of left upper chest Pain currently is 3 out of 10 on a pain scale. Cardiovascular: Capillary refill < 3 seconds Heart tones S1 S2 present Rhythm is sinus rhythm No ectopy. Respiratory: Airway is patent Respiratory effort is even, unlabored, Respiratory pattern is regular, symmetrical, Breath sounds are clear bilaterally. GI: Abdomen is non- distended Bowel sounds present X 4 quads. Abd is soft and non tender X 4 quads. Derm: Skin is pink, warm & dry. 14:01 General: Appears in no apparent distress, Behavior is appropriate for age, cooperative. dsf Neurological: Level of Consciousness is awake, alert. Cardiovascular: Capillary refill < 3 seconds Rhythm is sinus rhythm No ectopy. Respiratory: Airway is patent Respiratory effort is even, unlabored, Respiratory pattern is regular, symmetrical. Derm: Skin is pink, warm & dry. 15:01 General: Appears in no apparent distress, Behavior is appropriate for age, cooperative. dsf Neurological: Level of Consciousness is awake, alert. Cardiovascular: Capillary refill < 3 seconds Rhythm is sinus rhythm No ectopy. Respiratory: Airway is patent Respiratory effort is even, unlabored, Respiratory pattern is regular, symmetrical. Derm: Skin is pink, warm & dry. 16:01 Adult Sepsis Screening: The patient does not have new or worsening altered mentation. dsf Patient's respiratory rate is less than 22. Systolic blood pressure is greater than 100. Patient has a qSOFA score of 0- Negative Sepsis Screen. General: Appears in no apparent distress, Behavior is appropriate for age, cooperative. Neurological: Level of Consciousness is awake, alert. Cardiovascular: Capillary refill < 3 seconds Rhythm is sinus rhythm No ectopy. Respiratory: Airway is patent Respiratory effort is even, unlabored, Respiratory pattern is regular, symmetrical. Derm: Skin is pink, warm & dry. 16:44 General: Appears in no apparent distress, comfortable, Behavior is appropriate for age, dsf cooperative. Pain: Denies pain. Neurological: Level of Consciousness is awake, alert, Oriented to person, place, time. Cardiovascular: No deficits noted. Respiratory: No deficits noted. Derm: Skin is pink, warm & dry. Vital Signs: 10:10 BP 135 / 90 (auto/); Pulse 73; Pulse Ox 96% on R/A; Pain 7/10; dsf 10:14 Resp 18; Temp 98(O); Weight 117.03 kg; Height 5 ft. 8 in. (172.72 cm); Pain 7/10; cmb 10:55 BP 137 / 85 (auto/); dsf 10:55 Pulse 64 MON; Pulse Ox 95% ; dsf 11:10 BP 126 / 78 (auto/); dsf 11:10 Pulse 64 MON; Pulse Ox 95% ; dsf 11:25 BP 132 / 80 (auto/); dsf 11:25 Pulse 64 MON; Pulse Ox 94% ; dsf 11:40 BP 120 / 73 (auto/); dsf 11:40 Pulse 60 MON; Pulse Ox 94% ; dsf 11:55 BP 126 / 75 (auto/); dsf 11:55 Pulse 60 MON; Pulse Ox 95% ; dsf 12:10 BP 128 / 73 (auto/); dsf 12:10 Pulse 64 MON; Pulse Ox 95% ; dsf 12:16 Pain 0/10; dsf 12:25 BP 120 / 74 (auto/); dsf 12:25 Pulse 58 MON; Pulse Ox 94% ; dsf 12:40 BP 124 / 77 (auto/); dsf 12:40 Pulse 64 MON; Pulse Ox 94% ; dsf 12:55 BP 132 / 81 (auto/); dsf 12:55 Pulse 58 MON; Pulse Ox 94% ; dsf 13:10 BP 126 / 76 (auto/); dsf 13:10 Pulse 60 MON; Pulse Ox 95% ; dsf 13:24 Pain 5/10; dsf 13:25 Pulse 76 MON; Pulse Ox 92% ; dsf 13:25 BP 117 / 74 (auto/); dsf 13:26 Pulse 74 MON; Pulse Ox 92% ; dsf 13:31 Pain 2/10; dsf 13:40 BP 109 / 61 (auto/); dsf 13:40 Pulse 66 MON; Pulse Ox 93% ; dsf 13:55 BP 105 / 63 (auto/); dsf 13:55 Pulse 58 MON; Pulse Ox 95% ; dsf 14:10 Pulse 64 MON; Pulse Ox 94% ; dsf 14:10 BP 109 / 71 (auto/); Resp 20; Temp 98.0(TE); Pain 2/10; dsf 14:25 BP 108 / 69 (auto/); dsf 14:25 Pulse 64 MON; Pulse Ox 94% ; dsf 14:40 BP 118 / 70 (auto/); dsf 14:40 Pulse 64 MON; Pulse Ox 95% ; dsf 14:55 BP 111 / 67 (auto/); dsf 14:55 Pulse 62 MON; Pulse Ox 95% ; dsf 15:10 Pulse 62 MON; Pulse Ox 95% ; dsf 15:10 BP 116 / 71 (auto/); dsf 15:25 BP 118 / 73 (auto/); dsf 15:25 Pulse 64 MON; Pulse Ox 94% ; dsf 15:39 Pulse 60 MON; Pulse Ox 95% ; dsf 15:40 Pulse 62 MON; Pulse Ox 95% ; dsf 15:40 BP 111 / 75 (auto/); dsf 15:55 BP 111 / 73 (auto/); dsf 15:55 Pulse 62 MON; Pulse Ox 95% ; dsf 16:10 BP 113 / 73 (auto/); dsf 16:10 Pulse 62 MON; Pulse Ox 95% ; dsf 16:43 BP 118 / 72; Pulse 69; Resp 20; Temp 98.9(TE); Pulse Ox 96% on R/A; Pain 0/10; dsf 10:14 Body Mass Index 39.23 (117.03 kg, 172.72 cm) cmb Vitals: 10:12 Log In Time N/A - ambulance arrival. dsf ED Course: 10:02 Patient visited by Aide Vazquez, Jewel Supervisor. lbd 10:02 Patient moved to Waiting lbd 10:03 Bladimir Ramirez MD is Private Physician. lbd 10:03 Patient moved to 14 lbd 10:06 Triage Initiated dsf 10:09 EKG done. (by ED staff). Reviewed by Phuc Rosen MD. cmb 10:13 The patient / caregiver is instructed regarding the plan of care and ED course. Patient dsf has correct armband on for positive identification. Placed in gown. Bed in low position. Call light in reach. Side rails up X2. bus driver/monitor on. Pulse ox on. NIBP on. 10:14 No procedures done that require assistance. dsf 10:15 Patient visited by Nona Lopes. cmb 10:21 Inserted saline lock: 20 gauge in right antecubital area The patient tolerated the dsf procedure well. 11:07 Patient visited by Kathy Onofre RN. dsf 11:16 Patient visited by Nona Lopes. cmb 11:40 Phuc Rosen MD is Attending Physician. pc 11:58 Jordan Sy MD is Attending Physician. br1 12:04 Patient visited by Jordan Sy MD. br1 12:09 Basic Metabolic Profile Sent. dsf 12:09 CBC with Diff Sent. dsf 12:09 D-Dimer Quant Sent. dsf 12:09 Cardiac Injury Profile Sent. dsf 12:09 Troponin Sent. dsf 12:38 Patient visited by Kathy Onofre RN. dsf 12:46 Patient moved to Radiology dsf 13:01 Patient visited by Kathy Onofre RN. dsf 13:01 Patient moved to 14 dsf 14:16 Patient visited by Kathy Onofre RN. dsf 14:[address] [facility] Payment Agreement was scanned into [employer] and attached to record. mm15 14:18 Chest, 2 View (pa\E\lat) Returned. EDMS 14:19 Patient visited by Kathy Onofre RN. dsf 15:03 Patient visited by Kathy Onofre RN. dsf 15:55 Patient visited by Nona Lopes. cmb 15:55 EKG done. (by ED staff). Reviewed by Jordan Sy MD. cmb 16:20 Patient visited by Jordan Sy MD. br1 16:31 Patient visited by Kathy Onofre RN. dsf 16:34 Bladimir Ramirez MD is Referral Physician. br1 16:34 Yasir Juárez MD is Referral Physician. br1 16:44 Discontinued lock intact, bleeding controlled, pressure dressing applied, No dsf redness/swelling at site. Administered Medications: 12:11 Drug: Nitrostat 0.4 mg [Nitrostat 0.4 mg sublingual tablet (1 tabs)] Route: Sublingual; dsf 12:16 Follow up: Pain 0/10 Adult; see charted VS dsf 13:00 Drug: Acetaminophen 650 mg [acetaminophen 325 mg tablet (2 tabs)] Route: PO; dsf 13:19 Drug: Nitrostat 0.4 mg [Nitrostat 0.4 mg sublingual tablet (1 tabs)] Route: Sublingual; dsf 13:24 Follow up: Pain 5/10 Adult; see trend VS dsf 13:26 Drug: Nitrostat 0.4 mg [Nitrostat 0.4 mg sublingual tablet (1 tabs)] Route: Sublingual; dsf 13:31 Follow up: Pain 2/10 Adult dsf Intake: Output: 12:52 Urine: 225.00ml (Voided); Total: 225.00ml. dsf Order Results: Lab Order: Basic Metabolic Profile; SPEC'M 11/05/16 10:19 Test: GLUCOSE, FASTING; Value: 119; Range: 70-105; Abnormal: Above high normal; Units: MG/DL; Status: F Test: BLOOD UREA NITROGEN; Value: 16; Range: 7-18; Units: MG/DL; Status: F Test: CREATININE FOR GFR; Value: 1.33; Range: 0.70-1.30; Abnormal: Above high normal; Units: MG/DL; Status: F Test: GLOMERULAR FILTRATION RATE; Value: > 60.0; Range: >60; Status: F Test: SODIUM LEVEL; Value: 141; Range: 136-145; Units: MEQ/L; Status: F Test: POTASSIUM SERUM; Value: 4.4; Range: 3.5-5.1; Units: MEQ/L; Status: F Test: CHLORIDE LEVEL; Value: 106; Range: 98-107; Units: MEQ/L; Status: F Test: CARBON DIOXIDE LEVEL; Value: 30; Range: 21-32; Units: MEQ/L; Status: F Test: ANION GAP; Value: 5; Range: 8-16; Abnormal: Below low normal; Units: MEQ/L; Status: F Test: CALCIUM LEVEL; Value: 9.2; Range: 8.5-10.1; Units: MG/DL; Status: F Test Note: ; Units are mL/min/1.73 m2 Chronic Kidney Disease Staging per NKF: Stage I & II GFR >=60 Normal to Mildly Decreased Stage III GFR 30-59 Moderately Decreased Stage IV GFR 15-29 Severely Decreased Stage V GFR <15 Very Little GFR Left ESRD GFR <15 on 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 Lab Order: CBC with Diff; SPEC'M 11/05/16 10:19 Test: WHITE BLOOD COUNT; Value: 7.2; Range: 4.0-10.0; Units: K/mm3; Status: F Test: RED BLOOD COUNT; Value: 5.19; Range: 4.30-6.10; Units: M/mm3; Status: F Test: HEMOGLOBIN; Value: 15.9; Range: 14.0-18.0; Units: g/dl; Status: F Test: HEMATOCRIT; Value: 48.3; Range: 42.0-52.0; Units: %; Status: F Test: MEAN CORPUSCULAR VOLUME; Value: 93.1; Range: 80.0-96.0; Units: fl; Status: F Test: MEAN CORPUSCULAR HEMOGLOBIN; Value: 30.7; Range: 27.0-33.0; Units: pg; Status: F Test: MEAN CORPUSCULAR HGB CONC; Value: 33.0; Range: 32.0-36.5; Units: g/dl; Status: F Test: RED CELL DISTRIBUTION WIDTH; Value: 13.0; Range: 11.5-14.5; Units: %; Status: F Test: PLATELET COUNT, AUTOMATED; Value: 190; Range: 150-450; Units: k/mm3; Status: F Test: NEUTROPHILS %; Value: 70.4; Range: 36.0-66.0; Abnormal: Above high normal; Units: %; Status: F Test: LYMPH %; Value: 15.8; Range: 24.0-44.0; Abnormal: Below low normal; Units: %; Status: F Test: MONO %; Value: 9.2; Range: 0.0-5.0; Abnormal: Above high normal; Units: %; Status: F Test: EOS %; Value: 1.2; Range: 0.0-3.0; Units: %; Status: F Test: BASO %; Value: 0.3; Range: 0.0-1.0; Units: %; Status: F Test: LARGE UNSTAINED CELL %; Value: 3.0; Range: 0.0-4.0; Units: %; Status: F Test: NEUTROPHILS #; Value: 5.0; Range: 1.8-7.7; Units: K/mm3; Status: F Test: LYMPH #; Value: 1.1; Range: 1.5-4.5; Abnormal: Below low normal; Units: K/mm3; Status: F Test: MONO #; Value: 0.7; Range: 0.0-0.8; Units: K/mm3; Status: F Test: EOS #; Value: 0.1; Range: 0.0-0.50; Units: K/mm3; Status: F Test: BASO #; Value: 0.0; Range: 0.0-0.2; Units: K/mm3; Status: F Test: LARGE UNSTAINED CELL #; Value: 0.2; Range: 0.0-0.4; Units: K/mm3; Status: F Lab Order: Cardiac Injury Profile; [facility]' 11/05/16 10:19 Test: CPK CREATINE PHOSPHOKINASE; Value: 392; Range: 39-308; Abnormal: Above high normal; Units: U/L; Status: F Test: CK-MB VALUE MASS; Value: 3.4; Range: 0.0-3.6; Units: NG/ML; Status: F Test: MB/CK RELATIVE INDEX; Value: 0.86; Range: < OR =4; Status: F Test Note: ; DIAGNOSIS CRITERIA MMB ng/ml Relative Index (RI) NON-AMI < or = 5 N/A PAVON ZONE > 5 < or = 4 AMI > 5 > 4 Lab Order: D-Dimer Quant; [facility]' 11/05/16 10:19 Test: D-DIMER QUANT; Value: < 270.0; Range: <500; Units: ng/ml; Status: F Lab Order: Troponin; [facility]' 11/05/16 10:19 Test: TROPONIN I; Value: < 0.02; Range: < 0.10; Units: NG/ML; Status: F Test Note: ; Troponin I Reference Interval for Differential Dynamics LOCI: 99th Percentile= 0.00-0.045 ng/ml Risk Stratification: <= 0.10 ng/ml Decreased Risk for Adverse Clinical Events. 0.10-1.50 ng/ml Increased Risk for Adverse Clinical Events. Evaluation of additional criterion and/or repeat testing in 2-6 hours is suggested to rule out myocardial damage. >= 1.50 ng/ml Indicative of Myocardial Injury. Lab Order: CARDIAC INJURY PROFILE; SPEC'M 11/05/16 15:48 Test: CPK CREATINE PHOSPHOKINASE; Value: 346; Range: 39-308; Abnormal: Above high normal; Units: U/L; Status: F Test: CK-MB VALUE MASS; Value: 2.8; Range: 0.0-3.6; Units: NG/ML; Status: F Test: MB/CK RELATIVE INDEX; Value: 0.80; Range: < OR =4; Status: F Test Note: ; DIAGNOSIS CRITERIA MMB ng/ml Relative Index (RI) NON-AMI < or = 5 N/A PAVON ZONE > 5 < or = 4 AMI > 5 > 4 Lab Order: TROPONIN; SPEC'M 11/05/16 15:48 Test: TROPONIN I; Value: < 0.02; Range: < 0.10; Units: NG/ML; Status: F Test Note: ; Troponin I Reference Interval for Differential Dynamics LOCI: 99th Percentile= 0.00-0.045 ng/ml Risk Stratification: <= 0.10 ng/ml Decreased Risk for Adverse Clinical Events. 0.10-1.50 ng/ml Increased Risk for Adverse Clinical Events. Evaluation of additional criterion and/or repeat testing in 2-6 hours is suggested to rule out myocardial damage. >= 1.50 ng/ml Indicative of Myocardial Injury. Radiology Order: Chest, 2 View (pa\E\lat) Test: Chest, 2 View (pa\E\lat) REASON FOR EXAMINATION: Chest Pain; CHEST PA AND LATERAL: 11/05/2016.; ; Clinical history: Chest pain.; ; Comparison: portable chest 07/17/2016, two-view chest 07/16/2016.; ; Findings: The lung johnson are well inflated. There is a bilateral lateral; pleural thickening unchanged. There is no effusion or acute infiltrate. The; heart, mediastinal and hilar contours are normal. I see no parenchymal nodule or; mass. The airway is intact. The aorta is normal for age. There is no widening; of the mediastinum. The bony thorax shows no compression deformity. There is no; free air under the diaphragm.; ; Impression:; 1. No acute cardiopulmonary disease, stable chest compared to 07/2016 priors.; ; ; ; ; ; ; Unreviewed; Outcome: 16:34 Discharge ordered by Provider. br1 16:44 Discharge Assessment: Patient awake, alert and oriented x 3. No cognitive and/or dsf functional deficits noted. Patient verbalized understanding of disposition instructions. patient administered narcotics - no. The following High Risk Discharge criteria are identified: None. Discharged to home ambulatory. Condition: stable. Discharge instructions given to patient, Instructed on discharge instructions, follow up and referral plans. Demonstrated understanding of instructions, Pt was receptive of discharge instructions/ teaching. No special radiology studies were completed. Property sent home with patient. 16:54 Patient left the ED. dsf Signatures: Dispatcher [employer] EDMS Phuc Rosen MD MD pc Daly, Linda, Jewel Supervisor Unit lbd Jordan Sy MD MD br1 Kathy Onofre RN RN dsf Nona Lopes Marlynn mm15 GERALD
--- NOTE | 2016-11-07 08:54 | ECGEPIP ---
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
--- NOTE | 2016-11-07 08:58 | ECGEPIP ---
Stationary ECG Study [facility] - ED Test Date: 2016-11-05 Pat Name: DEANNA AN Department: Room: - Gender: M Pit Hand: : 1965 Requested By: MELISSA Guerrero Order Number: [id number] Reading MD: Purvi Cox Measurements Intervals [place] Rate: 59 P: -16 NH: 114 QRS: -21 QRSD: 82 T: 30 QT: 408 QTc: 405 Interpretive Statements SINUS BRADYCARDIA WITH SHORT NH INTERVAL BORDERLINE LEFT AXIS DEVIATION LOW QRS VOLTAGE IN PRECORDIAL LEADS DECREASED RATE 11/05/16 Electronically Signed On 11-07-2016 8:58:28 EST by Purvi Cox
--- NOTE | 2016-11-07 17:54 | EDDOCDS ---
Physician Documentation [facility] Name: Rinku Whelan Age: 51 yrs Sex: Male : 1965 Arrival Date: 11/05/2016 Time: 10:01 Bed 14 Private MD: Bladimir Ramirez Disposition: 11/05/16 16:34 Discharged to Home/Self Care. Impression: Chest pain, unspecified. - Condition is Stable. - Discharge Instructions: Nonspecific Chest Pain. - Medication Reconciliation, Local Pharmacy Hours form. - Follow up: Bladimir Ramirez MD; When: 2 - 3 days; Reason: Recheck today's complaints. Follow up: Yasir Juárez MD; When: 2 - 3 days; Reason: Recheck today's complaints. - Problem is new. - Symptoms are resolved. - Notes: You were seen in the ED for chest pain. Bloodwork along with EKG of the heart and chest XRay showed no acute findings. We have discussed the case with your airplane electrical repairer as well. As you are feeling better you may return home to follow up with your primary doctor and your airplane electrical repairer for further evaluation - please call to arrange to be seen.
Return to the ED for any return of chest pain, trouble breathing, lightheadedness, loss of consciousness or any other concerns. Historical: - Allergies: Codeine Sulfate (Vomit); - Home Meds: 1. gabapentin 300 mg Oral cap 2 caps 2 caps in am, 2 caps at noon and 3 caps at HS (Last dose: 11/05/2016 06:30) 2. aspirin 81 mg Oral tab 1 tab once daily (Last dose: 11/05/2016 06:30) 3. docusate sodium 100 mg Oral cap 1 cap 2 times per day (Last dose: 11/04/2016) 4. buspirone 5 mg Oral tab 1 tab 2 times per day (Last dose: 11/05/2016 06:30) 5. ferrous sulfate 325 mg (65 mg iron) Oral tab 325 mg twice a day (Last dose: 11/05/2016 06:30) 6. Fish Oil 360-1,200 mg Oral cap twice a day (Last dose: 11/05/2016 06:30) 7. Synthroid 75 mcg Oral tab 1 tab once daily (Last dose: 11/05/2016 06:30) 8. risperidone 0.5 mg oral tab once daily HS (Last dose: 11/04/2016) 9. Lexapro 30 mg Oral once daily HS (Last dose: 11/04/2016) 10. Protonix 40 mg Oral TbEC 1 tab once daily (Last dose: 11/05/2016 06:30) 11. tizanidine 4 mg oral cap 1 cap daily (Last dose: 11/05/2016 06:30) 12. Vitamin D Oral 1000 unit daily (Last dose: 11/05/2016 06:30) 13. Zocor 40 mg Oral tab 1 tab once daily (Last dose: 11/05/2016 06:30) 14. Zyrtec 10 mg Oral chew 1 tab once daily (Last dose: 11/04/2016) - PMHx: GERD; Hypercholesterolemia; Hypertension; Depression; Panic Attacks; Hypothyroidism; Kidney stones; Sciatica; - PSHx: Left foot surgery; Hemorrhoidectomy; Carpal Tunnel Repair- Right; - Social history: Smoking status: Patient states former smoker of tobacco. No barriers to communication noted, The patient speaks fluent Uzbek, Speaks appropriately for age. - Family history: Not pertinent. - : The pt / caregiver states he / she is not on anticoagulants. Home medication list is obtained from the patient. - Exposure Risk Screening:: None identified. Vital Signs: 11/05 10:10 BP 135 / 90 (auto/); Pulse 73; Pulse Ox 96% on R/A; Pain 7/10; dsf 10:14 Resp 18; Temp 98(O); Weight 117.03 kg / 258.01 lbs; Height 5 ft. 8 in. (172.72 cm); cmb Pain 7/10; 10:55 BP 137 / 85 (auto/); dsf 10:55 Pulse 64 MON; Pulse Ox 95% ; dsf 11:10 BP 126 / 78 (auto/); dsf 11:10 Pulse 64 MON; Pulse Ox 95% ; dsf 11:25 BP 132 / 80 (auto/); dsf 11:25 Pulse 64 MON; Pulse Ox 94% ; dsf 11:40 BP 120 / 73 (auto/); dsf 11:40 Pulse 60 MON; Pulse Ox 94% ; dsf 11:55 BP 126 / 75 (auto/); dsf 11:55 Pulse 60 MON; Pulse Ox 95% ; dsf 12:10 BP 128 / 73 (auto/); dsf 12:10 Pulse 64 MON; Pulse Ox 95% ; dsf 12:16 Pain 0/10; dsf 12:25 BP 120 / 74 (auto/); dsf 12:25 Pulse 58 MON; Pulse Ox 94% ; dsf 12:40 BP 124 / 77 (auto/); dsf 12:40 Pulse 64 MON; Pulse Ox 94% ; dsf 12:55 BP 132 / 81 (auto/); dsf 12:55 Pulse 58 MON; Pulse Ox 94% ; dsf 13:10 BP 126 / 76 (auto/); dsf 13:10 Pulse 60 MON; Pulse Ox 95% ; dsf 13:24 Pain 5/10; dsf 13:25 Pulse 76 MON; Pulse Ox 92% ; dsf 13:25 BP 117 / 74 (auto/); dsf 13:26 Pulse 74 MON; Pulse Ox 92% ; dsf 13:31 Pain 2/10; dsf 13:40 BP 109 / 61 (auto/); dsf 13:40 Pulse 66 MON; Pulse Ox 93% ; dsf 13:55 BP 105 / 63 (auto/); dsf 13:55 Pulse 58 MON; Pulse Ox 95% ; dsf 14:10 Pulse 64 MON; Pulse Ox 94% ; dsf 14:10 BP 109 / 71 (auto/); Resp 20; Temp 98.0(TE); Pain 2/10; dsf 14:25 BP 108 / 69 (auto/); dsf 14:25 Pulse 64 MON; Pulse Ox 94% ; dsf 14:40 BP 118 / 70 (auto/); dsf 14:40 Pulse 64 MON; Pulse Ox 95% ; dsf 14:55 BP 111 / 67 (auto/); dsf 14:55 Pulse 62 MON; Pulse Ox 95% ; dsf 15:10 Pulse 62 MON; Pulse Ox 95% ; dsf 15:10 BP 116 / 71 (auto/); dsf 15:25 BP 118 / 73 (auto/); dsf 15:25 Pulse 64 MON; Pulse Ox 94% ; dsf 15:39 Pulse 60 MON; Pulse Ox 95% ; dsf 15:40 Pulse 62 MON; Pulse Ox 95% ; dsf 15:40 BP 111 / 75 (auto/); dsf 15:55 BP 111 / 73 (auto/); dsf 15:55 Pulse 62 MON; Pulse Ox 95% ; dsf 16:10 BP 113 / 73 (auto/); dsf 16:10 Pulse 62 MON; Pulse Ox 95% ; dsf 16:43 BP 118 / 72; Pulse 69; Resp 20; Temp 98.9(TE); Pulse Ox 96% on R/A; Pain 0/10; dsf 10:14 Body Mass Index 39.23 (117.03 kg, 172.72 cm) cmb MDM: 10:07 ECG WITH READING ER PHYS+CARDIAG ordered. EDMS 12:04 Nitrostat 0.4 mg Sublingual every 5 minutes; hold if SBP<90mmHg.Document Pain Score br1 Response to Each Dose x3 ordered. 12:04 Dirt Contractor/Pulse Ox/q 30 min VS ordered. br1 12:04 IV Saline Lock ordered. br1 12:04 Rhythm Strip to chart ordered. br1 12:04 Undress patient appropriately for examination ordered. br1 12:05 Basic Metabolic Profile Ordered. EDMS 12:05 CBC with Diff Ordered. EDMS 12:05 Cardiac Injury Profile Ordered. EDMS 12:05 D-Dimer Quant Ordered. EDMS 12:05 Troponin Ordered. EDMS 12:05 Chest, 2 View (pa\E\lat) Ordered. EDMS 12:28 Acetaminophen Tablet 650 mg PO once; prn pain ordered. br1 12:28 CBC with Diff Reviewed. br1 12:28 D-Dimer Quant Reviewed. br1 13:07 Financial registration complete. mm15 13:17 Basic Metabolic Profile Reviewed. br1 13:17 Cardiac Injury Profile Reviewed. br1 13:17 Troponin Reviewed. br1 13:20 Repeat EKG (put time details section) ordered. br1 13:20 Redraw CIP &Troponin (put time in details section) ordered. br1 13:20 Admit to ED Observation status ordered. br1 13:27 Redraw CIP &Troponin (put time in details section) complete. cmb 13:27 Repeat EKG (put time details section) complete. cmb 13:27 CARDIAC INJURY PROFILE Ordered. EDMS 13:28 ECG WITH READING ER PHYS ordered. EDMS 13:34 TROPONIN Ordered. EDMS 14:17 [facility] Payment Agreement was scanned into [employer] and attached to record. mm15 16:19 CARDIAC INJURY PROFILE Reviewed. br1 16:19 TROPONIN Reviewed. br1 16:19 Chest, 2 View (pa\E\lat) Reviewed. br1 11/06 12:16 T-Sheet-- Draft Copy was scanned into [employer] and attached to record. gb 12:16 ECG/EKG was scanned into [employer] and attached to record. gb 12:17 Radiology Report was scanned into [employer] and attached to record. gb 12:17 Rhythm Strip was scanned into [employer] and attached to record. gb Administered Medications: 11/05 12:11 Drug: Nitrostat 0.4 mg [Nitrostat 0.4 mg sublingual tablet (1 tabs)] Route: Sublingual; dsf 12:16 Follow up: Pain 0/10 Adult; see charted VS dsf 13:00 Drug: Acetaminophen 650 mg [acetaminophen 325 mg tablet (2 tabs)] Route: PO; dsf 13:19 Drug: Nitrostat 0.4 mg [Nitrostat 0.4 mg sublingual tablet (1 tabs)] Route: Sublingual; dsf 13:24 Follow up: Pain 5/10 Adult; see trend VS dsf 13:26 Drug: Nitrostat 0.4 mg [Nitrostat 0.4 mg sublingual tablet (1 tabs)] Route: Sublingual; dsf 13:31 Follow up: Pain 2/10 Adult dsf Signatures: Dispatcher [employer] EDMS Evon Valverde, Reg Reg gb Jordan Sy MD MD br1 Kathy Onofre RN RN dsf Nona Lopes Marlynn mm15 The chart was reviewed and I authenticate all verbal orders and agree with the evaluation and treatment provided.Corrections: (The following items were deleted from the chart) 13:32 13:27 TROPONIN ordered. EDMS EDMS Attachments: 14:17 [facility] Payment Agreement mm15 11/06 12:16 T-Sheet-- Draft Copy gb 12:16 ECG/EKG gb Chart Complete MTDD
--- NOTE | 2016-11-07 17:54 | EDDOCDS ---
Physician Documentation [facility] Name: Rinku Whelan Age: 51 yrs Sex: Male : 1965 Arrival Date: 11/05/2016 Time: 10:01 Bed 14 Private MD: Bladimir Ramirez Disposition: 11/05/16 16:34 Discharged to Home/Self Care. Impression: Chest pain, unspecified. - Condition is Stable. - Discharge Instructions: Nonspecific Chest Pain. - Medication Reconciliation, Local Pharmacy Hours form. - Follow up: Bladimir Ramirez MD; When: 2 - 3 days; Reason: Recheck today's complaints. Follow up: Yasir Juárez MD; When: 2 - 3 days; Reason: Recheck today's complaints. - Problem is new. - Symptoms are resolved. - Notes: You were seen in the ED for chest pain. Bloodwork along with EKG of the heart and chest XRay showed no acute findings. We have discussed the case with your instrument/control technician as well. As you are feeling better you may return home to follow up with your primary doctor and your instrument/control technician for further evaluation - please call to arrange to be seen.
Return to the ED for any return of chest pain, trouble breathing, lightheadedness, loss of consciousness or any other concerns. Historical: - Allergies: Codeine Sulfate (Vomit); - Home Meds: 1. gabapentin 300 mg Oral cap 2 caps 2 caps in am, 2 caps at noon and 3 caps at HS (Last dose: 11/05/2016 06:30) 2. aspirin 81 mg Oral tab 1 tab once daily (Last dose: 11/05/2016 06:30) 3. docusate sodium 100 mg Oral cap 1 cap 2 times per day (Last dose: 11/04/2016) 4. buspirone 5 mg Oral tab 1 tab 2 times per day (Last dose: 11/05/2016 06:30) 5. ferrous sulfate 325 mg (65 mg iron) Oral tab 325 mg twice a day (Last dose: 11/05/2016 06:30) 6. Fish Oil 360-1,200 mg Oral cap twice a day (Last dose: 11/05/2016 06:30) 7. Synthroid 75 mcg Oral tab 1 tab once daily (Last dose: 11/05/2016 06:30) 8. risperidone 0.5 mg oral tab once daily HS (Last dose: 11/04/2016) 9. Lexapro 30 mg Oral once daily HS (Last dose: 11/04/2016) 10. Protonix 40 mg Oral TbEC 1 tab once daily (Last dose: 11/05/2016 06:30) 11. tizanidine 4 mg oral cap 1 cap daily (Last dose: 11/05/2016 06:30) 12. Vitamin D Oral 1000 unit daily (Last dose: 11/05/2016 06:30) 13. Zocor 40 mg Oral tab 1 tab once daily (Last dose: 11/05/2016 06:30) 14. Zyrtec 10 mg Oral chew 1 tab once daily (Last dose: 11/04/2016) - PMHx: GERD; Hypercholesterolemia; Hypertension; Depression; Panic Attacks; Hypothyroidism; Kidney stones; Sciatica; - PSHx: Left foot surgery; Hemorrhoidectomy; Carpal Tunnel Repair- Right; - Social history: Smoking status: Patient states former smoker of tobacco. No barriers to communication noted, The patient speaks fluent [place]inean, Speaks appropriately for age. - Family history: Not pertinent. - : The pt / caregiver states he / she is not on anticoagulants. Home medication list is obtained from the patient. - Exposure Risk Screening:: None identified. Vital Signs: 11/05 10:10 BP 135 / 90 (auto/); Pulse 73; Pulse Ox 96% on R/A; Pain 7/10; dsf 10:14 Resp 18; Temp 98(O); Weight 117.03 kg / 258.01 lbs; Height 5 ft. 8 in. (172.72 cm); cmb Pain 7/10; 10:55 BP 137 / 85 (auto/); dsf 10:55 Pulse 64 MON; Pulse Ox 95% ; dsf 11:10 BP 126 / 78 (auto/); dsf 11:10 Pulse 64 MON; Pulse Ox 95% ; dsf 11:25 BP 132 / 80 (auto/); dsf 11:25 Pulse 64 MON; Pulse Ox 94% ; dsf 11:40 BP 120 / 73 (auto/); dsf 11:40 Pulse 60 MON; Pulse Ox 94% ; dsf 11:55 BP 126 / 75 (auto/); dsf 11:55 Pulse 60 MON; Pulse Ox 95% ; dsf 12:10 BP 128 / 73 (auto/); dsf 12:10 Pulse 64 MON; Pulse Ox 95% ; dsf 12:16 Pain 0/10; dsf 12:25 BP 120 / 74 (auto/); dsf 12:25 Pulse 58 MON; Pulse Ox 94% ; dsf 12:40 BP 124 / 77 (auto/); dsf 12:40 Pulse 64 MON; Pulse Ox 94% ; dsf 12:55 BP 132 / 81 (auto/); dsf 12:55 Pulse 58 MON; Pulse Ox 94% ; dsf 13:10 BP 126 / 76 (auto/); dsf 13:10 Pulse 60 MON; Pulse Ox 95% ; dsf 13:24 Pain 5/10; dsf 13:25 Pulse 76 MON; Pulse Ox 92% ; dsf 13:25 BP 117 / 74 (auto/); dsf 13:26 Pulse 74 MON; Pulse Ox 92% ; dsf 13:31 Pain 2/10; dsf 13:40 BP 109 / 61 (auto/); dsf 13:40 Pulse 66 MON; Pulse Ox 93% ; dsf 13:55 BP 105 / 63 (auto/); dsf 13:55 Pulse 58 MON; Pulse Ox 95% ; dsf 14:10 Pulse 64 MON; Pulse Ox 94% ; dsf 14:10 BP 109 / 71 (auto/); Resp 20; Temp 98.0(TE); Pain 2/10; dsf 14:25 BP 108 / 69 (auto/); dsf 14:25 Pulse 64 MON; Pulse Ox 94% ; dsf 14:40 BP 118 / 70 (auto/); dsf 14:40 Pulse 64 MON; Pulse Ox 95% ; dsf 14:55 BP 111 / 67 (auto/); dsf 14:55 Pulse 62 MON; Pulse Ox 95% ; dsf 15:10 Pulse 62 MON; Pulse Ox 95% ; dsf 15:10 BP 116 / 71 (auto/); dsf 15:25 BP 118 / 73 (auto/); dsf 15:25 Pulse 64 MON; Pulse Ox 94% ; dsf 15:39 Pulse 60 MON; Pulse Ox 95% ; dsf 15:40 Pulse 62 MON; Pulse Ox 95% ; dsf 15:40 BP 111 / 75 (auto/); dsf 15:55 BP 111 / 73 (auto/); dsf 15:55 Pulse 62 MON; Pulse Ox 95% ; dsf 16:10 BP 113 / 73 (auto/); dsf 16:10 Pulse 62 MON; Pulse Ox 95% ; dsf 16:43 BP 118 / 72; Pulse 69; Resp 20; Temp 98.9(TE); Pulse Ox 96% on R/A; Pain 0/10; dsf 10:14 Body Mass Index 39.23 (117.03 kg, 172.72 cm) cmb MDM: 10:07 ECG WITH READING ER PHYS+CARDIAG ordered. EDMS 12:04 Nitrostat 0.4 mg Sublingual every 5 minutes; hold if SBP<90mmHg.Document Pain Score br1 Response to Each Dose x3 ordered. 12:04 Finish Production Manager/Pulse Ox/q 30 min VS ordered. br1 12:04 IV Saline Lock ordered. br1 12:04 Rhythm Strip to chart ordered. br1 12:04 Undress patient appropriately for examination ordered. br1 12:05 Basic Metabolic Profile Ordered. EDMS 12:05 CBC with Diff Ordered. EDMS 12:05 Cardiac Injury Profile Ordered. EDMS 12:05 D-Dimer Quant Ordered. EDMS 12:05 Troponin Ordered. EDMS 12:05 Chest, 2 View (pa\E\lat) Ordered. EDMS 12:28 Acetaminophen Tablet 650 mg PO once; prn pain ordered. br1 12:28 CBC with Diff Reviewed. br1 12:28 D-Dimer Quant Reviewed. br1 13:07 Financial registration complete. mm15 13:17 Basic Metabolic Profile Reviewed. br1 13:17 Cardiac Injury Profile Reviewed. br1 13:17 Troponin Reviewed. br1 13:20 Repeat EKG (put time details section) ordered. br1 13:20 Redraw CIP &Troponin (put time in details section) ordered. br1 13:20 Admit to ED Observation status ordered. br1 13:27 Redraw CIP &Troponin (put time in details section) complete. cmb 13:27 Repeat EKG (put time details section) complete. cmb 13:27 CARDIAC INJURY PROFILE Ordered. EDMS 13:28 ECG WITH READING ER PHYS ordered. EDMS 13:34 TROPONIN Ordered. EDMS 14:17 [facility] Payment Agreement was scanned into [employer] and attached to record. mm15 16:19 CARDIAC INJURY PROFILE Reviewed. br1 16:19 TROPONIN Reviewed. br1 16:19 Chest, 2 View (pa\E\lat) Reviewed. br1 11/06 12:16 T-Sheet-- Draft Copy was scanned into [employer] and attached to record. gb 12:16 ECG/EKG was scanned into [employer] and attached to record. gb 12:17 Radiology Report was scanned into [employer] and attached to record. gb 12:17 Rhythm Strip was scanned into [employer] and attached to record. gb Administered Medications: 11/05 12:11 Drug: Nitrostat 0.4 mg [Nitrostat 0.4 mg sublingual tablet (1 tabs)] Route: Sublingual; dsf 12:16 Follow up: Pain 0/10 Adult; see charted VS dsf 13:00 Drug: Acetaminophen 650 mg [acetaminophen 325 mg tablet (2 tabs)] Route: PO; dsf 13:19 Drug: Nitrostat 0.4 mg [Nitrostat 0.4 mg sublingual tablet (1 tabs)] Route: Sublingual; dsf 13:24 Follow up: Pain 5/10 Adult; see trend VS dsf 13:26 Drug: Nitrostat 0.4 mg [Nitrostat 0.4 mg sublingual tablet (1 tabs)] Route: Sublingual; dsf 13:31 Follow up: Pain 2/10 Adult dsf Signatures: Dispatcher [employer] EDMS Evon Valverde, Reg Reg gb Jordan Sy MD MD br1 Kathy Onofre RN RN dsf Nona Lopes Marlynn mm15 The chart was reviewed and I authenticate all verbal orders and agree with the evaluation and treatment provided.Corrections: (The following items were deleted from the chart) 13:32 13:27 TROPONIN ordered. EDMS EDMS Attachments: 14:17 [facility] Payment Agreement mm15 11/06 12:16 T-Sheet-- Draft Copy gb 12:16 ECG/EKG gb Chart Complete MTDD
--- NOTE | 2016-11-07 17:54 | EDDOCDS ---
Nurse's Notes [facility] Name: Rinku An Age: 51 yrs Sex: Male : 1965 Arrival Date: 11/05/2016 Time: 10:01 Bed 14 Private MD: Bladimir Ramirez Diagnosis: Chest pain, unspecified Presentation: 11/05 10:05 Presenting complaint: EMS states: pt woke up not feeling well this morning., pt c/o dsf chest pain 10. Pt tried to eat breakfast and vomited. EMS gave ASA. Aspirin was taken RHIA. Suicide/Homicide risk assessment- the patient denies having any suicidal and/or homicidal ideations and does not present with any other emotional, behavioral or mental health complaints. Status: Patient is not a healthcare advisory services manager or dependent. Transition of care: patient was not received from another setting of care. 10:05 Acuity: PAULA Level 3 dsf 10:05 Method Of Arrival: Ambulance dsf 10:14 Adult Sepsis Screening: The patient does not have new or worsening altered mentation. dsf Patient's respiratory rate is less than 22. Systolic blood pressure is greater than 100. Patient has a qSOFA score of 0- Negative Sepsis Screen. Triage Assessment: 10:10 General: Appears in no apparent distress, Behavior is appropriate for age, cooperative. dsf Pain: Location: anterior aspect of left upper chest Pain currently is 7 out of 10 on a pain scale. Pain does not radiate. Quality of pain is described as sharp, Pain began 4 hours ago Is continuous Alleviated by nothing. Aggravated by nothing. HIV screening NA for this visit Offered previously. The patient is triaged at the bedside. See Assessment in Nurses Notes section of ED record. Neurological: Level of Consciousness is awake, alert, Oriented to person, place, time. Cardiovascular: Capillary refill < 3 seconds Heart tones S1 S2 present Rhythm is sinus rhythm No ectopy. Chest pain is described as Pain is 7 out of 10 on a pain scale. quality is sharp is located in left anterior chest wall radiates Does not radiate. episodes are continuous began 4 hours prior to arrival is aggravated by nothing is alleviated by nothing. Respiratory: Airway is patent Respiratory effort is even, unlabored, Respiratory pattern is regular, symmetrical, Breath sounds are clear bilaterally. Denies shortness of breath. GI: Abdomen is obese, Bowel sounds present X 4 quads. Abd is soft and non tender X 4 quads. Reports nausea. Derm: Skin is pink, warm & dry. Historical: - Allergies: Codeine Sulfate (Vomit); - Home Meds: 1. gabapentin 300 mg Oral cap 2 caps 2 caps in am, 2 caps at noon and 3 caps at HS (Last dose: 11/05/2016 06:30) 2. aspirin 81 mg Oral tab 1 tab once daily (Last dose: 11/05/2016 06:30) 3. docusate sodium 100 mg Oral cap 1 cap 2 times per day (Last dose: 11/04/2016) 4. buspirone 5 mg Oral tab 1 tab 2 times per day (Last dose: 11/05/2016 06:30) 5. ferrous sulfate 325 mg (65 mg iron) Oral tab 325 mg twice a day (Last dose: 11/05/2016 06:30) 6. Fish Oil 360-1,200 mg Oral cap twice a day (Last dose: 11/05/2016 06:30) 7. Synthroid 75 mcg Oral tab 1 tab once daily (Last dose: 11/05/2016 06:30) 8. risperidone 0.5 mg oral tab once daily HS (Last dose: 11/04/2016) 9. Lexapro 30 mg Oral once daily HS (Last dose: 11/04/2016) 10. Protonix 40 mg Oral TbEC 1 tab once daily (Last dose: 11/05/2016 06:30) 11. tizanidine 4 mg oral cap 1 cap daily (Last dose: 11/05/2016 06:30) 12. Vitamin D Oral 1000 unit daily (Last dose: 11/05/2016 06:30) 13. Zocor 40 mg Oral tab 1 tab once daily (Last dose: 11/05/2016 06:30) 14. Zyrtec 10 mg Oral chew 1 tab once daily (Last dose: 11/04/2016) - PMHx: GERD; Hypercholesterolemia; Hypertension; Depression; Panic Attacks; Hypothyroidism; Kidney stones; Sciatica; - PSHx: Left foot surgery; Hemorrhoidectomy; Carpal Tunnel Repair- Right; - Social history: Smoking status: Patient states former smoker of tobacco. No barriers to communication noted, The patient speaks fluent Czech, Speaks appropriately for age. - Family history: Not pertinent. - : The pt / caregiver states he / she is not on anticoagulants. Home medication list is obtained from the patient. - Exposure Risk Screening:: None identified. Screenin:12 Screening information is obtained from the patient. Fall risk: No risks identified. dsf Assistance ADL's: requires no assistance with activities of daily living. Abuse/DV Screen: The patient / caregiver reports he/she is: not in a situation that causes fear, pain or injury. Nutritional screening: No deficits noted. Advance Directives: Currently, there is no health care proxy. home support is adequate. Assessment: 10:10 General: see triage assessment . dsf 11:07 Adult Sepsis Screening: The patient does not have new or worsening altered mentation. dsf Patient's respiratory rate is less than 22. Systolic blood pressure is greater than 100. Patient has a qSOFA score of 0- Negative Sepsis Screen. General: Appears in no apparent distress, Behavior is appropriate for age, cooperative. Neurological: Level of Consciousness is awake, alert. Cardiovascular: Capillary refill < 3 seconds Rhythm is sinus rhythm No ectopy. Respiratory: Airway is patent Respiratory effort is even, unlabored, Respiratory pattern is regular, symmetrical. Derm: Skin is pink, warm & dry. 12:07 General: Appears in no apparent distress, comfortable, Behavior is appropriate for age, dsf cooperative. Pain: Location: anterior aspect of left upper chest Pain currently is 9 out of 10 on a pain scale. Quality of pain is described as sharp. Neurological: Level of Consciousness is awake, alert, Oriented to person, place, time. Cardiovascular: Capillary refill < 3 seconds Rhythm is sinus rhythm No ectopy. Respiratory: Airway is patent Respiratory effort is even, unlabored, Respiratory pattern is regular, symmetrical. Derm: Skin is pink, warm & dry. 12:37 Adult Sepsis Screening: The patient does not have new or worsening altered mentation. dsf Patient's respiratory rate is less than 22. Systolic blood pressure is greater than 100. Patient has a qSOFA score of 0- Negative Sepsis Screen. General: Appears in no apparent distress, comfortable, Behavior is appropriate for age, cooperative. Pain: Location: head Pain currently is 10 out of 10 on a pain scale. Neurological: Level of Consciousness is awake, alert. Cardiovascular: Capillary refill < 3 seconds Rhythm is sinus rhythm No ectopy. Chest pain is denied. Respiratory: Airway is patent Respiratory effort is even, unlabored, Respiratory pattern is regular, symmetrical. Derm: Skin is pink, warm & dry. 13:01 General: Appears in no apparent distress, comfortable, Behavior is appropriate for age, dsf cooperative. Pain: Location: anterior aspect of left upper chest Pain currently is 3 out of 10 on a pain scale. Cardiovascular: Capillary refill < 3 seconds Heart tones S1 S2 present Rhythm is sinus rhythm No ectopy. Respiratory: Airway is patent Respiratory effort is even, unlabored, Respiratory pattern is regular, symmetrical, Breath sounds are clear bilaterally. GI: Abdomen is non- distended Bowel sounds present X 4 quads. Abd is soft and non tender X 4 quads. Derm: Skin is pink, warm & dry. 14:01 General: Appears in no apparent distress, Behavior is appropriate for age, cooperative. dsf Neurological: Level of Consciousness is awake, alert. Cardiovascular: Capillary refill < 3 seconds Rhythm is sinus rhythm No ectopy. Respiratory: Airway is patent Respiratory effort is even, unlabored, Respiratory pattern is regular, symmetrical. Derm: Skin is pink, warm & dry. 15:01 General: Appears in no apparent distress, Behavior is appropriate for age, cooperative. dsf Neurological: Level of Consciousness is awake, alert. Cardiovascular: Capillary refill < 3 seconds Rhythm is sinus rhythm No ectopy. Respiratory: Airway is patent Respiratory effort is even, unlabored, Respiratory pattern is regular, symmetrical. Derm: Skin is pink, warm & dry. 16:01 Adult Sepsis Screening: The patient does not have new or worsening altered mentation. dsf Patient's respiratory rate is less than 22. Systolic blood pressure is greater than 100. Patient has a qSOFA score of 0- Negative Sepsis Screen. General: Appears in no apparent distress, Behavior is appropriate for age, cooperative. Neurological: Level of Consciousness is awake, alert. Cardiovascular: Capillary refill < 3 seconds Rhythm is sinus rhythm No ectopy. Respiratory: Airway is patent Respiratory effort is even, unlabored, Respiratory pattern is regular, symmetrical. Derm: Skin is pink, warm & dry. 16:44 General: Appears in no apparent distress, comfortable, Behavior is appropriate for age, dsf cooperative. Pain: Denies pain. Neurological: Level of Consciousness is awake, alert, Oriented to person, place, time. Cardiovascular: No deficits noted. Respiratory: No deficits noted. Derm: Skin is pink, warm & dry. Vital Signs: 10:10 BP 135 / 90 (auto/); Pulse 73; Pulse Ox 96% on R/A; Pain 7/10; dsf 10:14 Resp 18; Temp 98(O); Weight 117.03 kg; Height 5 ft. 8 in. (172.72 cm); Pain 7/10; cmb 10:55 BP 137 / 85 (auto/); dsf 10:55 Pulse 64 MON; Pulse Ox 95% ; dsf 11:10 BP 126 / 78 (auto/); dsf 11:10 Pulse 64 MON; Pulse Ox 95% ; dsf 11:25 BP 132 / 80 (auto/); dsf 11:25 Pulse 64 MON; Pulse Ox 94% ; dsf 11:40 BP 120 / 73 (auto/); dsf 11:40 Pulse 60 MON; Pulse Ox 94% ; dsf 11:55 BP 126 / 75 (auto/); dsf 11:55 Pulse 60 MON; Pulse Ox 95% ; dsf 12:10 BP 128 / 73 (auto/); dsf 12:10 Pulse 64 MON; Pulse Ox 95% ; dsf 12:16 Pain 0/10; dsf 12:25 BP 120 / 74 (auto/); dsf 12:25 Pulse 58 MON; Pulse Ox 94% ; dsf 12:40 BP 124 / 77 (auto/); dsf 12:40 Pulse 64 MON; Pulse Ox 94% ; dsf 12:55 BP 132 / 81 (auto/); dsf 12:55 Pulse 58 MON; Pulse Ox 94% ; dsf 13:10 BP 126 / 76 (auto/); dsf 13:10 Pulse 60 MON; Pulse Ox 95% ; dsf 13:24 Pain 5/10; dsf 13:25 Pulse 76 MON; Pulse Ox 92% ; dsf 13:25 BP 117 / 74 (auto/); dsf 13:26 Pulse 74 MON; Pulse Ox 92% ; dsf 13:31 Pain 2/10; dsf 13:40 BP 109 / 61 (auto/); dsf 13:40 Pulse 66 MON; Pulse Ox 93% ; dsf 13:55 BP 105 / 63 (auto/); dsf 13:55 Pulse 58 MON; Pulse Ox 95% ; dsf 14:10 Pulse 64 MON; Pulse Ox 94% ; dsf 14:10 BP 109 / 71 (auto/); Resp 20; Temp 98.0(TE); Pain 2/10; dsf 14:25 BP 108 / 69 (auto/); dsf 14:25 Pulse 64 MON; Pulse Ox 94% ; dsf 14:40 BP 118 / 70 (auto/); dsf 14:40 Pulse 64 MON; Pulse Ox 95% ; dsf 14:55 BP 111 / 67 (auto/); dsf 14:55 Pulse 62 MON; Pulse Ox 95% ; dsf 15:10 Pulse 62 MON; Pulse Ox 95% ; dsf 15:10 BP 116 / 71 (auto/); dsf 15:25 BP 118 / 73 (auto/); dsf 15:25 Pulse 64 MON; Pulse Ox 94% ; dsf 15:39 Pulse 60 MON; Pulse Ox 95% ; dsf 15:40 Pulse 62 MON; Pulse Ox 95% ; dsf 15:40 BP 111 / 75 (auto/); dsf 15:55 BP 111 / 73 (auto/); dsf 15:55 Pulse 62 MON; Pulse Ox 95% ; dsf 16:10 BP 113 / 73 (auto/); dsf 16:10 Pulse 62 MON; Pulse Ox 95% ; dsf 16:43 BP 118 / 72; Pulse 69; Resp 20; Temp 98.9(TE); Pulse Ox 96% on R/A; Pain 0/10; dsf 10:14 Body Mass Index 39.23 (117.03 kg, 172.72 cm) cmb Vitals: 10:12 Log In Time N/A - ambulance arrival. dsf ED Course: 10:02 Patient visited by Aide Vazquez, Aircraft Log Clerk. lbd 10:02 Patient moved to Waiting lbd 10:03 Bladimir Ramirez MD is Private Physician. lbd 10:03 Patient moved to 14 lbd 10:06 Triage Initiated dsf 10:09 EKG done. (by ED staff). Reviewed by Phuc Rosen MD. cmb 10:13 The patient / caregiver is instructed regarding the plan of care and ED course. Patient dsf has correct armband on for positive identification. Placed in gown. Bed in low position. Call light in reach. Side rails up X2. lunchroom monitor on. Pulse ox on. NIBP on. 10:14 No procedures done that require assistance. dsf 10:15 Patient visited by Nona Lopes. cmb 10:21 Inserted saline lock: 20 gauge in right antecubital area The patient tolerated the dsf procedure well. 11:07 Patient visited by Kathy Onofre RN. dsf 11:16 Patient visited by Nona Lopes. cmb 11:40 Phuc Rosen MD is Attending Physician. pc 11:58 Jordan Sy MD is Attending Physician. br1 12:04 Patient visited by Jordan Sy MD. br1 12:09 Basic Metabolic Profile Sent. dsf 12:09 CBC with Diff Sent. dsf 12:09 D-Dimer Quant Sent. dsf 12:09 Cardiac Injury Profile Sent. dsf 12:09 Troponin Sent. dsf 12:38 Patient visited by Kathy Onofre RN. dsf 12:46 Patient moved to Radiology dsf 13:01 Patient visited by Kathy Onofre RN. dsf 13:01 Patient moved to 14 dsf 14:16 Patient visited by Kathy Onofre RN. dsf 14:17 [facility] [place] was scanned into Watch-Sites and attached to record. mm15 14:18 Chest, 2 View (pa\E\lat) Returned. EDMS 14:19 Patient visited by Kathy Onofre RN. dsf 15:03 Patient visited by Kathy Onofre RN. dsf 15:55 Patient visited by Nona Lopes. cmb 15:55 EKG done. (by ED staff). Reviewed by Jordan Sy MD. cmb 16:20 Patient visited by Jordan Sy MD. br1 16:31 Patient visited by Kathy Onofre RN. dsf 16:34 Bladimir Ramirez MD is Referral Physician. br1 16:34 Yasir Juárez MD is Referral Physician. br1 16:44 Discontinued lock intact, bleeding controlled, pressure dressing applied, No dsf redness/swelling at site. 17:15 Chest, 2 View (pa\E\lat) Returned. EDMS 02 12:16 T-Sheet-- Draft Copy was scanned into Watch-Sites and attached to record. gb 12:16 ECG/EKG was scanned into Watch-Sites and attached to record. gb 12:17 Radiology Report was scanned into Watch-Sites and attached to record. gb 12:17 Rhythm Strip was scanned into Watch-Sites and attached to record. gb 11/07 09:16 EKG-ADULT Returned. EDMS 09:17 ECG WITH READING ER PHYS Returned. EDMS Administered Medications: 11/05 12:11 Drug: Nitrostat 0.4 mg [Nitrostat 0.4 mg sublingual tablet (1 tabs)] Route: Sublingual; dsf 12:16 Follow up: Pain 0/10 Adult; see charted VS dsf 13:00 Drug: Acetaminophen 650 mg [acetaminophen 325 mg tablet (2 tabs)] Route: PO; dsf 13:19 Drug: Nitrostat 0.4 mg [Nitrostat 0.4 mg sublingual tablet (1 tabs)] Route: Sublingual; dsf 13:24 Follow up: Pain 5/10 Adult; see trend VS dsf 13:26 Drug: Nitrostat 0.4 mg [Nitrostat 0.4 mg sublingual tablet (1 tabs)] Route: Sublingual; dsf 13:31 Follow up: Pain 2/10 Adult dsf Attachments: 12:17 Rhythm Strip gb Intake: Output: 11/05 12:52 Urine: 225.00ml (Voided); Total: 225.00ml. dsf Order Results: Lab Order: Basic Metabolic Profile; SPEC'M 11/05/16 10:19 Test: GLUCOSE, FASTING; Value: 119; Range: 70-105; Abnormal: Above high normal; Units: MG/DL; Status: F Test: BLOOD UREA NITROGEN; Value: 16; Range: 7-18; Units: MG/DL; Status: F Test: CREATININE FOR GFR; Value: 1.33; Range: 0.70-1.30; Abnormal: Above high normal; Units: MG/DL; Status: F Test: GLOMERULAR FILTRATION RATE; Value: > 60.0; Range: >60; Status: F Test: SODIUM LEVEL; Value: 141; Range: 136-145; Units: MEQ/L; Status: F Test: POTASSIUM SERUM; Value: 4.4; Range: 3.5-5.1; Units: MEQ/L; Status: F Test: CHLORIDE LEVEL; Value: 106; Range: 98-107; Units: MEQ/L; Status: F Test: CARBON DIOXIDE LEVEL; Value: 30; Range: 21-32; Units: MEQ/L; Status: F Test: ANION GAP; Value: 5; Range: 8-16; Abnormal: Below low normal; Units: MEQ/L; Status: F Test: CALCIUM LEVEL; Value: 9.2; Range: 8.5-10.1; Units: MG/DL; Status: F Test Note: ; Units are mL/min/1.73 m2 Chronic Kidney Disease Staging per NKF: Stage I & II GFR >=60 Normal to Mildly Decreased Stage III GFR 30-59 Moderately Decreased Stage IV GFR 15-29 Severely Decreased Stage V GFR <15 Very Little GFR Left ESRD GFR <15 on POWER SHOVEL ENGINEER Lab Order: CBC with Diff; SPEC'M 11/05/16 10:19 Test: WHITE BLOOD COUNT; Value: 7.2; Range: 4.0-10.0; Units: K/mm3; Status: F Test: RED BLOOD COUNT; Value: 5.19; Range: 4.30-6.10; Units: M/mm3; Status: F Test: HEMOGLOBIN; Value: 15.9; Range: 14.0-18.0; Units: g/dl; Status: F Test: HEMATOCRIT; Value: 48.3; Range: 42.0-52.0; Units: %; Status: F Test: MEAN CORPUSCULAR VOLUME; Value: 93.1; Range: 80.0-96.0; Units: fl; Status: F Test: MEAN CORPUSCULAR HEMOGLOBIN; Value: 30.7; Range: 27.0-33.0; Units: pg; Status: F Test: MEAN CORPUSCULAR HGB CONC; Value: 33.0; Range: 32.0-36.5; Units: g/dl; Status: F Test: RED CELL DISTRIBUTION WIDTH; Value: 13.0; Range: 11.5-14.5; Units: %; Status: F Test: PLATELET COUNT, AUTOMATED; Value: 190; Range: 150-450; Units: k/mm3; Status: F Test: NEUTROPHILS %; Value: 70.4; Range: 36.0-66.0; Abnormal: Above high normal; Units: %; Status: F Test: LYMPH %; Value: 15.8; Range: 24.0-44.0; Abnormal: Below low normal; Units: %; Status: F Test: MONO %; Value: 9.2; Range: 0.0-5.0; Abnormal: Above high normal; Units: %; Status: F Test: EOS %; Value: 1.2; Range: 0.0-3.0; Units: %; Status: F Test: BASO %; Value: 0.3; Range: 0.0-1.0; Units: %; Status: F Test: LARGE UNSTAINED CELL %; Value: 3.0; Range: 0.0-4.0; Units: %; Status: F Test: NEUTROPHILS #; Value: 5.0; Range: 1.8-7.7; Units: K/mm3; Status: F Test: LYMPH #; Value: 1.1; Range: 1.5-4.5; Abnormal: Below low normal; Units: K/mm3; Status: F Test: MONO #; Value: 0.7; Range: 0.0-0.8; Units: K/mm3; Status: F Test: EOS #; Value: 0.1; Range: 0.0-0.50; Units: K/mm3; Status: F Test: BASO #; Value: 0.0; Range: 0.0-0.2; Units: K/mm3; Status: F Test: LARGE UNSTAINED CELL #; Value: 0.2; Range: 0.0-0.4; Units: K/mm3; Status: F Lab Order: Cardiac Injury Profile; SPEC'M 11/05/16 10:19 Test: CPK CREATINE PHOSPHOKINASE; Value: 392; Range: 39-308; Abnormal: Above high normal; Units: U/L; Status: F Test: CK-MB VALUE MASS; Value: 3.4; Range: 0.0-3.6; Units: NG/ML; Status: F Test: MB/CK RELATIVE INDEX; Value: 0.86; Range: < OR =4; Status: F Test Note: ; DIAGNOSIS CRITERIA MMB ng/ml Relative Index (RI) NON-AMI < or = 5 N/A PAVON ZONE > 5 < or = 4 AMI > 5 > 4 Lab Order: D-Dimer Quant; SPEC'M 11/05/16 10:19 Test: D-DIMER QUANT; Value: < 270.0; Range: <500; Units: ng/ml; Status: F Lab Order: Troponin; [facility] 11/05/16 10:19 Test: TROPONIN I; Value: < 0.02; Range: < 0.10; Units: NG/ML; Status: F Test Note: ; Troponin I Reference Interval for [employer]: 99th Percentile= 0.00-0.045 ng/ml Risk Stratification: <= 0.10 ng/ml Decreased Risk for Adverse Clinical Events. 0.10-1.50 ng/ml Increased Risk for Adverse Clinical Events. Evaluation of additional criterion and/or repeat testing in 2-6 hours is suggested to rule out myocardial damage. >= 1.50 ng/ml Indicative of Myocardial Injury. Lab Order: CARDIAC INJURY PROFILE; [facility] 11/05/16 15:48 Test: CPK CREATINE PHOSPHOKINASE; Value: 346; Range: 39-308; Abnormal: Above high normal; Units: U/L; Status: F Test: CK-MB VALUE MASS; Value: 2.8; Range: 0.0-3.6; Units: NG/ML; Status: F Test: MB/CK RELATIVE INDEX; Value: 0.80; Range: < OR =4; Status: F Test Note: ; DIAGNOSIS CRITERIA MMB ng/ml Relative Index (RI) NON-AMI < or = 5 N/A PAVON ZONE > 5 < or = 4 AMI > 5 > 4 Lab Order: TROPONIN; [facility] 11/05/16 15:48 Test: TROPONIN I; Value: < 0.02; Range: < 0.10; Units: NG/ML; Status: F Test Note: ; Troponin I Reference Interval for [employer]: 99th Percentile= 0.00-0.045 ng/ml Risk Stratification: <= 0.10 ng/ml Decreased Risk for Adverse Clinical Events. 0.10-1.50 ng/ml Increased Risk for Adverse Clinical Events. Evaluation of additional criterion and/or repeat testing in 2-6 hours is suggested to rule out myocardial damage. >= 1.50 ng/ml Indicative of Myocardial Injury. 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[place]; : 1965 Requested By: Phuc Benedict; Order Number: [id number] Reading MD: Purvi Cox; Measurements; Intervals [place]; Rate: 69 P: -4; OK: 121 QRS: -19; QRSD: 83 T: 29; QT: 393; QTc: 423; Interpretive Statements; SINUS RHYTHM; LOW QRS VOLTAGE IN PRECORDIAL LEADS; PRWP; INCREASED RATE 07/17/16; Electronically Signed On 11-07-2016 8:54:15 EST by Purvi Cox; Radiology Order: Chest, 2 View (pa\E\lat) Test: Chest, 2 View (pa\E\lat) REASON FOR EXAMINATION: Chest Pain; CHEST PA AND LATERAL: 11/05/2016.; ; Clinical history: Chest pain.; ; Comparison: portable chest 07/17/2016, two-view chest 07/16/2016.; ; Findings: The lung johnson are well inflated. There is a bilateral lateral; pleural thickening unchanged. There is no effusion or acute infiltrate. The; heart, mediastinal and hilar contours are normal. I see no parenchymal nodule or; mass. The airway is intact. The aorta is normal for age. There is no widening; of the mediastinum. The bony thorax shows no compression deformity. There is no; free air under the diaphragm.; ; Impression:; ; 1. 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 br1 16:44 Discharge Assessment: Patient awake, alert and oriented x 3. No cognitive and/or dsf functional deficits noted. Patient verbalized understanding of disposition instructions. patient administered narcotics - no. The following High Risk Discharge criteria are identified: None. Discharged to home ambulatory. Condition: stable. Discharge instructions given to patient, Instructed on discharge instructions, follow up and referral plans. Demonstrated understanding of instructions, Pt was receptive of discharge instructions/ teaching. No special radiology studies were completed. Property sent home with patient. 16:54 Patient left the ED. dsf Signatures: Dispatcher [employer] EDMS Phuc Rosen MD MD pc Daly, Linda, Aircraft Log Clerk Unit lbd Evon Valverde, Reg Reg gb Jordan Sy MD MD br1 Kathy Onofre,RN RN dsf Nona Lopes cmKarin Moreira mm15 Chart Complete MTDD
== END 2016-11-05 16:54 | disposition home or self-care (01) ==
LOC: M ED 10:01
DX: R07.9 Chest pain, unspecified (principal); K21.9 Gastro-esophageal reflux disease without esophagitis; E78.00 Pure hypercholesterolemia, unspecified; I10 Essential (primary) hypertension; F32.9 Major depressive disorder, single episode, unspecified; F41.0 Panic disorder [episodic paroxysmal anxiety]; E03.9 Hypothyroidism, unspecified; M54.30 Sciatica, unspecified side; Z87.442 Personal history of urinary calculi; Z87.891 Personal history of nicotine dependence; Z79.82 Long term (current) use of aspirin; Z79.899 Other long term (current) drug therapy; Z88.5 Allergy status to narcotic agent

== ENCOUNTER 2016-11-10 11:20 | Emergency (ER) | payer OTHER ==
[2016-11-10] MEDS ORDERED: NITROGLYCERIN 0.4 MG SUBL TABLET As Ordered ONE (12:10)
[2016-11-10] MEDS ORDERED: ASPIRIN 81 MG CHEW TABLET As Ordered ONE (12:10)
[2016-11-10 12:27] LABS: BASO % 0.3 % (0.0-1.0); EOS # 0.1 K/mm3 (0.0-0.50); EOS % 1.7 % (0.0-3.0); LARGE UNSTAINED CELL # 0.1 K/mm3 (0.0-0.4); LARGE UNSTAINED CELL % 1.7 % (0.0-4.0); LYMPH # 1.7 K/mm3 (1.5-4.5); LYMPH % 23.1 % (24.0-44.0); MEAN CORPUSCULAR HEMOGLOBIN 30.9 pg (27.0-33.0); MEAN CORPUSCULAR HGB CONC 33.3 g/dl (32.0-36.5); MONO # 0.6 K/mm3 (0.0-0.8); MONO % 9.5 % (0.0-5.0); NEUTROPHILS # 4.3 K/mm3 (1.8-7.7); NEUTROPHILS % 63.7 % (36.0-66.0); PLATELET COUNT, AUTOMATED 192 k/mm3 (150-450); RED CELL DISTRIBUTION WIDTH 13.4 % (11.5-14.5); WHITE BLOOD COUNT 6.7 K/mm3 (4.0-10.0)
--- NOTE | 2016-11-10 12:29 | REP ---
Chest one-view HISTORY: Chest pain Comparison: 11/05/2016 The lungs are clear. The heart is normal in size. The pulmonary vasculature is normal in appearance. Impression: No acute disease. Signed by Mitch Blum MD 11/10/2016 12:19 P
[2016-11-10 12:31] LABS: INR 1.04
[2016-11-10 12:42] LABS: ALBUMIN 3.9 GM/DL (3.2-5.2); ALBUMIN/GLOBULIN RATIO 1.08 (1.00-1.93); ALKALINE PHOSPHATASE 76 U/L (45-117); ALT/SGPT 40 U/L (12-78); ANION GAP 6 MEQ/L (8-16); AST/SGOT 29 U/L (15-37); BILIRUBIN,DIRECT < 0.1 MG/DL (0.0-0.2); BILIRUBIN,TOTAL 0.4 MG/DL (0.2-1.0); BLOOD UREA NITROGEN 14 MG/DL (7-18); CALCIUM LEVEL 8.8 MG/DL (8.5-10.1); CARBON DIOXIDE LEVEL 30 MEQ/L (21-32); CHLORIDE LEVEL 102 MEQ/L (98-107); CREATININE FOR GFR 1.37 MG/DL (0.70-1.30); GLOMERULAR FILTRATION RATE 58.8 (>60); GLUCOSE, FASTING 91 MG/DL (70-105); POTASSIUM SERUM 4.1 MEQ/L (3.5-5.1); SODIUM LEVEL 138 MEQ/L (136-145); TOTAL PROTEIN 7.5 GM/DL (6.4-8.2)
[2016-11-10] MEDS ORDERED: MORPHINE 2 MG/ML 1ML SYRINGE As Ordered ONE ×2 (13:13→14:07)
[2016-11-10] MEDS ORDERED: ISOVUE-370 76% 100ML VIAL (Q9967) As Ordered ONE (13:15)
--- NOTE | 2016-11-10 14:06 | REP ---
CT ANGIOGRAM OF THE CHEST: 11/10/2016. Comparison portable chest 11/10/2016, 11/05/2016. Clinical history: Chest pain, dyspnea. Technique. The patient received a bolus of 75 mL Isovue [address] angiogram protocol with coronal and sagittal thick slab reconstructions with MIP reformatting. Findings: Lung bases show dependent atelectatic change mid and posterior lower lung zones. There is no pleural effusion, acute infiltrate, parenchymal nodule or mass. Heart not grossly enlarged. There is no pericardial thickening or effusion. I see no hiatal hernia. The aorta is without aneurysm or dissection. The main, right and left pulmonary arteries and the mediastinum are without filling defect. The lobar, segmental pulmonary arteries and visible subsegmental arteries are without airspace opacification. There is no vessel cutoff or definite filling defect that would suggest pulmonary embolism in the lobar and segmental arteries. Those visible subsegmental arteries are intact. There is no pathologic sized mediastinal or hilar adenopathy and no axillary or supraclavicular mass. The bone windows show the sternum, manubrium, clavicles, humeral heads and scapula without any acute fracture. Spine was grossly intact. Visualized ribs without acute finding. Some respiratory motion limits evaluation of the upper abdomen and the chest that said adrenal glands are grossly normal. Upper poles of the kidneys, spleen and pancreas seen were unremarkable. Portion of the gallbladder is present and intact without calcified stone. Impression: 1. No compelling CT evidence for pulmonary thromboembolism in the central pulmonary arteries, lobar and segmental arteries as well as those visible subsegmental arteries. 2. There is no pleural effusion, definite infiltrate, pulmonary nodule or parenchymal mass. Minor dependent atelectatic changes are seen. There is some motion artifact limiting this evaluation. 3. No hiatal hernia. Upper abdomen grossly intact. No compression deformity or focal lesion in the spine. Signed by Brannon Kim MD 11/10/2016 04:25 P
[2016-11-10] MEDS ORDERED: CLOPIDOGREL 300 MG TAB (PLAVIX) As Ordered ONE (14:07)
--- NOTE | 2016-11-10 18:57 | EDDOCDS ---
Physician Documentation [facility] Name: Rinku Whelan Age: 51 yrs Sex: Male : 1965 Arrival Date: 11/10/2016 Time: 11:20 Bed 19 Private MD: Disposition: 11/10 14:12 Critical Care:. ml Disposition: 11/10/16 14:11 Transfer ordered to [facility]. Diagnosis is Other chest pain. - Reason for transfer: Higher level of care. - Accepting physician is Dr sade villaseñor. - Condition is Stable. - Problem is new. - Symptoms are unchanged. Historical: - Allergies: Codeine Sulfate (Vomit); - Home Meds: 1. aspirin 81 mg Oral tab 1 tab once daily (Last dose: 11/10/2016 06:00) 2. buspirone 5 mg Oral tab 1 tab 2 times per day (Last dose: 11/10/2016 06:00) 3. docusate sodium 100 mg Oral cap 1 cap once daily (Last dose: 11/09/2016) 4. ferrous sulfate 325 mg (65 mg iron) Oral tab 325 mg twice a day (Last dose: 11/10/2016 06:00) 5. Fish Oil 360-1,200 mg Oral cap twice a day 6. gabapentin 300 mg Oral cap 2 caps 2 caps in am, 2 caps at noon and 3 caps at HS (Last dose: 11/10/2016 06:00) 7. Lexapro 30 mg Oral once daily HS (Last dose: 11/09/2016) 8. Protonix 40 mg Oral TbEC 1 tab once daily (Last dose: 11/10/2016 06:00) 9. risperidone 0.5 mg oral tab once daily HS (Last dose: 11/09/2016) 10. Synthroid 75 mcg Oral tab 1 tab once daily (Last dose: 11/10/2016 06:00) 11. tizanidine 4 mg oral cap 1 cap daily (Last dose: 11/09/2016 19:00) 12. Vitamin D Oral 1000 unit daily (Last dose: 11/10/2016 06:00) 13. Zocor 40 mg Oral tab 1 tab once daily (Last dose: 11/10/2016 06:00) 14. Zyrtec 10 mg Oral chew 1 tab once daily (Last dose: 11/09/2016 19:00) - PMHx: Depression; GERD; Hypercholesterolemia; Hypertension; Hypothyroidism; Kidney stones; Panic Attacks; Sciatica; - PSHx: Left foot surgery; Hemorrhoidectomy; Carpal Tunnel Repair- Right; - Social history: Smoking status: Patient states former smoker of tobacco. No barriers to communication noted, The patient speaks fluent Yi. - Family history: Not pertinent. - : The pt / caregiver states he / she is not on anticoagulants. Home medication list is obtained from the patient, [email or web address] import data. - Exposure Risk Screening:: None identified. Vital Signs: 11:31 BP 126 / 86; Pulse 74; Resp 20; Temp 98.0(TE); Pulse Ox 97% on R/A; Weight 128.82 kg / jml1 284 lbs; Height 5 ft. 8 in. (172.72 cm); Pain 5/10; 11:42 Pulse 74 MON; Pulse Ox 96% ; jf3 11:43 BP 136 / 94 (auto/); jf3 11:58 BP 133 / 92 (auto/); jf3 11:58 Pulse 70 MON; Pulse Ox 98% ; jf3 12:13 BP 155 / 86 (auto/); jf3 12:13 Pulse 76 MON; Pulse Ox 97% ; jf3 12:19 BP 131 / 87 (auto/); jf3 12:19 Pulse 82 MON; Pulse Ox 97% ; jf3 12:21 BP 131 / 87; Pulse 76; Pain 5/10; jf3 12:28 BP 117 / 82 (auto/); jf3 12:28 Pulse 96 MON; Pulse Ox 95% ; jf3 12:28 BP 122 / 82; Pulse 96; Pain 4/10; jf3 12:29 BP 122 / 82 (auto/); jf3 12:29 Pulse 90 MON; Pulse Ox 96% ; jf3 12:35 Pulse 84 MON; Pulse Ox 96% ; jf3 12:36 BP 104 / 63 (auto/); jf3 12:36 BP 104 / 63; Pulse 87; Pain 2/10; jf3 12:42 Pulse 72 MON; Pulse Ox 96% ; jf3 12:43 BP 103 / 66 (auto/); jf3 12:57 Pulse 60 MON; Pulse Ox 96% ; jf3 12:58 BP 111 / 77 (auto/); jf3 13:12 Pulse 62 MON; Pulse Ox 97% ; jf3 13:13 BP 119 / 77 (auto/); jf3 13:24 Pulse 86 MON; Pulse Ox 96% ; jf3 13:28 BP 131 / 73 (auto/); jf3 13:43 BP 128 / 64 (auto/); jf3 13:43 Pulse 68 MON; Pulse Ox 98% ; jf3 13:53 BP 118 / 69 (auto/); jf3 13:54 Pulse 62 MON; Pulse Ox 99% ; jf3 13:57 Pulse 66 MON; Pulse Ox 98% ; jf3 13:58 BP 127 / 73 (auto/); jf3 14:08 BP 114 / 67 (auto/); jf3 14:09 Pulse 62 MON; Pulse Ox 100% ; jf3 14:12 Pulse 66 MON; Pulse Ox 98% ; jf3 14:13 BP 123 / 76 (auto/); jf3 14:23 BP 108 / 58 (auto/); jf3 14:24 Pulse 60 MON; Pulse Ox 99% ; jf3 14:27 Pulse 70 MON; Pulse Ox 98% ; jf3 14:28 BP 127 / 81 (auto/); jf3 14:38 BP 105 / 58 (auto/); jf3 14:38 Pulse 60 MON; Pulse Ox 99% ; jf3 14:40 Pulse 60 MON; Pulse Ox 98% ; jf3 14:42 Pulse 70 MON; Pulse Ox 98% ; jf3 14:43 BP 161 / 93 (auto/); jf3 15:01 BP 119 / 69 (auto/); jf3 15:08 BP 123 / 70 (auto/); jf3 15:08 Pulse 60 MON; Pulse Ox 96% ; jf3 15:23 BP 119 / 71 (auto/); jf3 15:23 Pulse 64 MON; Pulse Ox 95% ; jf3 16:54 Pulse 74 MON; Pulse Ox 97% ; jf3 16:56 BP 139 / 89 (auto/); jf3 18:40 Pulse 66 MON; Pulse Ox 98% ; jf3 18:41 BP 148 / 88 (auto/); jf3 18:53 BP 134 / 91; Pulse 75; Resp 18; Temp 97(O); Pulse Ox 98% on 2 lpm NC; Pain 0/10; jf3 11:31 Body Mass Index 43.18 (128.82 kg, 172.72 cm) jml1 12:21 pre NTG jf3 MDM: 11:35 ECG WITH READING ER PHYS+CARDIAG ordered. EDMS 11:44 Aspirin Chewable Tablet 243 mg PO once ordered. ml 11:44 Nitrostat 0.4 mg Sublingual every 5 minutes; hold if SBP<90mmHg.Document Pain Score ml Response to Each Dose x3 ordered. 11:44 Contracts Manager/Pulse Ox/q 15 min VS ordered. ml 11:44 IV Saline Lock ordered. ml 11:44 Oxygen at 4L/Min NC or Home dosage ordered. ml 11:44 Rhythm Strip to chart ordered. ml 11:44 Undress patient appropriately for examination ordered. ml 11:45 portable chest Ordered. EDMS 11:45 B-Type Natiuretic Peptide Ordered. EDMS 11:45 Basic Metabolic Profile Ordered. EDMS 11:45 CBC with Diff Ordered. EDMS 11:45 Cardiac Injury Profile Ordered. EDMS 11:45 D-Dimer Quant Ordered. EDMS 11:45 Partial Thromboplastin Time Ordered. EDMS 11:45 Prothrombin Time Profile\E\INR Ordered. EDMS 11:45 Troponin Ordered. EDMS 11:45 Liver Profile Ordered. EDMS 11:56 NS 0.9% 500 ml IV at 100 mL/hr once ordered. ml 13:05 Basic Metabolic Profile Reviewed. ml 13:05 CBC with Diff Reviewed. ml 13:05 B-Type Natiuretic Peptide Reviewed. ml 13:05 Cardiac Injury Profile Reviewed. ml 13:05 D-Dimer Quant Reviewed. ml 13:05 Partial Thromboplastin Time Reviewed. ml 13:05 Prothrombin Time Profile\E\INR Reviewed. ml 13:05 Troponin Reviewed. ml 13:05 Liver Profile Reviewed. ml 13:05 portable chest Reviewed. ml 13:07 CT Chest Angio R/O PE Ordered. EDMS 13:09 morphine 2 mg IVP every 5 minutes; Document pain score/vitals after each dose (Hold if ml SBP < 90mmHg) x5 ordered. 13:56 Plavix - Clopidogrel 300 mg PO once ordered. ml 13:58 Misc. Nursing Order ordered. ml 14:36 REGULAR+DIET ordered. EDMS 15:25 Financial registration complete. gjb 15:40 CT-[facility] Payment Agreement was scanned into [employer] and attached to record. gjb 16:33 T-Sheet-- Draft Copy was scanned into [employer] and attached to record. klr Administered Medications: 12:19 Drug: NS 0.9% 500 ml [sodium chloride 0.9 % injection solution] Route: IV; Rate: 100 jf3 mL/hr; Site: right antecubital; 12:20 Drug: Aspirin 243 mg [aspirin 81 mg chewable tablet (3 tabs)] Route: PO; jf3 12:21 Drug: Nitrostat 0.4 mg [Nitrostat 0.4 mg sublingual tablet (1 tabs)] Route: Sublingual; jf3 12:28 Follow up: BP 122 / 82; Pulse 96 bpm; Pain 4/10 Adult; Response: Pain is decreased jf3 12:30 Drug: Nitrostat 0.4 mg [Nitrostat 0.4 mg sublingual tablet (1 tabs)] Route: Sublingual; jf3 12:36 Follow up: BP 104 / 63; Pulse 87 bpm; Pain 2/10 Adult; Response: Pain is decreased jf3 13:18 Drug: morphine 2 mg [morphine 2 mg/mL intravenous cartridge (1 mL)] Route: IVP; Site: jf3 right antecubital; 13:46 Follow up: Response: Pain is decreased jf3 14:11 Drug: Plavix - Clopidogrel 300 mg [clopidogrel 75 mg tablet (4 tabs)] Route: PO; jf3 18:54 Follow up: Response: No Adverse Reaction jf3 14:12 Drug: morphine 2 mg [morphine 2 mg/mL intravenous cartridge (1 mL)] Route: IVP; Site: jf3 right antecubital; Critical Care Time: 14:12 Critical care time: Bedside Care: 90 minutes, Consultation: 10 minutes. Total time: 100 ml minutes Signatures: Dispatcher [employer] Yoshi Vasquez MD MD ml Farman, Justin, RN RN jf3 Lyssa Carpenter Aster Katz chalo The chart was reviewed and I authenticate all verbal orders and agree with the evaluation and treatment provided.Corrections: (The following items were deleted from the chart) 11:50 11:44 Contracts Manager/Pulse Ox/q 30 min VS ordered. ml jf3 Attachments: 15:40 [facility] Payment Agreement rebel 16:33 T-Sheet-- [facility]
--- NOTE | 2016-11-10 18:58 | EDDOCDS ---
Nurse's Notes [facility] Name: Rinku Whelan Age: 51 yrs Sex: Male : 1965 Arrival Date: 11/10/2016 Time: 11:20 Bed 19 Private MD: Diagnosis: Other chest pain Presentation: 11/10 11:29 Presenting complaint: Patient states: CP light headedness and dizziness that woke him jf3 up at [address] Juárez's office and was told to come to ER is having CP. Pt states he is going to [facility] for a cardiac cath that is scheduled for tomorrow at 1100. 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 pt took 81mg ASA x1 this AM. Adult Sepsis Screening: The patient jf3 does not have new or worsening altered mentation. Patient's respiratory rate is less than 22. Systolic blood pressure is greater than 100. Patient has a qSOFA score of 0- Negative Sepsis Screen. Suicide/Homicide risk assessment- the patient denies having any suicidal and/or homicidal ideations and does not present with any other emotional, behavioral or mental health complaints. 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 Transition of care: patient was not received from another setting of care. Care prior to arrival: See EMS report. IV initiated. Saline lock initiated. Glucose check. 123 mg/dl. 11:34 Acuity: PAULA Level 2 3 11:34 Method Of Arrival: Ambulance 3 Triage Assessment: 11:37 General: Appears in no apparent distress, comfortable, Behavior is cooperative. Pain: jf3 Location: anterior aspect of left upper chest Pain currently is 5 out of 10 on a pain scale. Pt Declines HIV testing. The patient is triaged at the bedside. See Assessment in Nurses Notes section of ED record. Cardiovascular: Chest pain is described as mild, radiates Does not radiate. episodes are continuous began 0200 today. Respiratory: Airway is patent Respiratory effort is even, unlabored, Respiratory pattern is regular, symmetrical. Respiratory: Reports shortness of breath. Derm: Skin is normal. Historical: - Allergies: Codeine Sulfate (Vomit); - Home Meds: 1. aspirin 81 mg Oral tab 1 tab once daily (Last dose: 11/10/2016 06:00) 2. buspirone 5 mg Oral tab 1 tab 2 times per day (Last dose: 11/10/2016 06:00) 3. docusate sodium 100 mg Oral cap 1 cap once daily (Last dose: 11/09/2016) 4. ferrous sulfate 325 mg (65 mg iron) Oral tab 325 mg twice a day (Last dose: 11/10/2016 06:00) 5. Fish Oil 360-1,200 mg Oral cap twice a day 6. gabapentin 300 mg Oral cap 2 caps 2 caps in am, 2 caps at noon and 3 caps at HS (Last dose: 11/10/2016 06:00) 7. Lexapro 30 mg Oral once daily HS (Last dose: 11/09/2016) 8. Protonix 40 mg Oral TbEC 1 tab once daily (Last dose: 11/10/2016 06:00) 9. risperidone 0.5 mg oral tab once daily HS (Last dose: 11/09/2016) 10. Synthroid 75 mcg Oral tab 1 tab once daily (Last dose: 11/10/2016 06:00) 11. tizanidine 4 mg oral cap 1 cap daily (Last dose: 11/09/2016 19:00) 12. Vitamin D Oral 1000 unit daily (Last dose: 11/10/2016 06:00) 13. Zocor 40 mg Oral tab 1 tab once daily (Last dose: 11/10/2016 06:00) 14. Zyrtec 10 mg Oral chew 1 tab once daily (Last dose: 11/09/2016 19:00) - PMHx: Depression; GERD; Hypercholesterolemia; Hypertension; Hypothyroidism; Kidney stones; Panic Attacks; Sciatica; - PSHx: Left foot surgery; Hemorrhoidectomy; Carpal Tunnel Repair- Right; - Social history: Smoking status: Patient states former smoker of tobacco. No barriers to communication noted, The patient speaks fluent Romansh. - Family history: Not pertinent. - : The pt / caregiver states he / she is not on anticoagulants. Home medication list is obtained from the patient, [employer] import data. - Exposure Risk Screening:: None identified. Screenin:42 Screening information is obtained from the patient. Fall risk: No risks identified. jf3 Assistance ADL's: requires no assistance with activities of daily living. Abuse/DV Screen: The patient / caregiver reports he/she is: not in a situation that causes fear, pain or injury. Nutritional screening: No deficits noted. Advance Directives: Currently, there is no health care proxy. There is no active DNR order. home support is adequate. Assessment: 11:44 General: Appears in no apparent distress, comfortable, Behavior is cooperative. Pain: jf3 Location: anterior aspect of left upper chest Pain currently is 5 out of 10 on a pain scale. Pain does not radiate. Pain began 0200 today. Neurological: Level of Consciousness is awake, alert, Oriented to person, place, time. Cardiovascular: Capillary refill < 3 seconds Heart tones S1 S2 present Rhythm is sinus rhythm Chest pain is described as mild, is located in left chest wall radiates Does not radiate. Respiratory: Airway is patent Respiratory effort is even, unlabored, Respiratory pattern is regular, symmetrical, Breath sounds are clear bilaterally. Reports shortness of breath. GI: Abdomen is obese, Bowel sounds present X 4 quads. Abd is soft and non tender X 4 quads. Derm: Skin is normal. 12:45 General: Appears in no apparent distress, comfortable, Behavior is cooperative, pt jf3 resting supine on stretcher. respirations easy and unlabored. CP decreased to 2/10, provider aware. Call light in reach. Will continue to monitor. 13:45 General: Appears in no apparent distress, comfortable, Behavior is cooperative. jf3 General: resting supine on stretcher with mother at bedside. Pt states pain is now 1-2/10 after morphine. Pt states he does not want any more pain meds at this time, his pain is tolerable. Respirations easy and unlabored. Call light in reach. Will continue to monitor. Pain:. 15:00 General: Appears in no apparent distress, comfortable, Behavior is cooperative. Pain: jf3 Denies pain. Neurological: Level of Consciousness is awake, alert, Oriented to person, place, time. Cardiovascular: Capillary refill < 3 seconds Chest pain is denied. Respiratory: Airway is patent Respiratory effort is even, unlabored, Respiratory pattern is regular, symmetrical. Derm: Skin is pink, warm & dry. 16:00 General: Appears in no apparent distress, comfortable, Behavior is cooperative, pt jf3 sitting at side of bed. Mother at bedside. respirations easy an unlabored. Denies CP. Call light in reach. 16:00 General: Call placed to [facility] to give report, nurse unavailable at this time. jf3 16:52 General: Appears in no apparent distress, comfortable, Behavior is cooperative, Pt jf3 supine on stretcher with mother at bedside. Respirations easy and unlabored. Denies CP. Call placed to [facility], nurse unavailable. 18:00 General: Appears in no apparent distress, comfortable, Behavior is cooperative, Mother jf3 at bedside. Respirations easy and unlabored. Call light in reach. Will continue to monitor. 18:50 Adult Sepsis Screening: The patient does not have new or worsening altered mentation. jf3 Patient's respiratory rate is less than 22. Systolic blood pressure is greater than 100. Patient has a qSOFA score of 0- Negative Sepsis Screen. General: Appears in no apparent distress, comfortable, Behavior is cooperative. Pain: Denies pain. Neurological: Level of Consciousness is awake, alert, Oriented to person, place, time. Cardiovascular: Capillary refill < 3 seconds Chest pain is denied. Respiratory: Airway is patent Respiratory effort is even, unlabored, Respiratory pattern is regular, symmetrical. Derm: Skin is pink, warm & dry. Vital Signs: 11:31 BP 126 / 86; Pulse 74; Resp 20; Temp 98.0(TE); Pulse Ox 97% on R/A; Weight 128.82 kg; jml1 Height 5 ft. 8 in. (172.72 cm); Pain 5/10; 11:42 Pulse 74 MON; Pulse Ox 96% ; jf3 11:43 BP 136 / 94 (auto/); jf3 11:58 BP 133 / 92 (auto/); jf3 11:58 Pulse 70 MON; Pulse Ox 98% ; jf3 12:13 BP 155 / 86 (auto/); jf3 12:13 Pulse 76 MON; Pulse Ox 97% ; jf3 12:19 BP 131 / 87 (auto/); jf3 12:19 Pulse 82 MON; Pulse Ox 97% ; jf3 12:21 BP 131 / 87; Pulse 76; Pain 5/10; jf3 12:28 BP 117 / 82 (auto/); jf3 12:28 Pulse 96 MON; Pulse Ox 95% ; jf3 12:28 BP 122 / 82; Pulse 96; Pain 4/10; jf3 12:29 BP 122 / 82 (auto/); jf3 12:29 Pulse 90 MON; Pulse Ox 96% ; jf3 12:35 Pulse 84 MON; Pulse Ox 96% ; jf3 12:36 BP 104 / 63 (auto/); jf3 12:36 BP 104 / 63; Pulse 87; Pain 2/10; jf3 12:42 Pulse 72 MON; Pulse Ox 96% ; jf3 12:43 BP 103 / 66 (auto/); jf3 12:57 Pulse 60 MON; Pulse Ox 96% ; jf3 12:58 BP 111 / 77 (auto/); jf3 13:12 Pulse 62 MON; Pulse Ox 97% ; jf3 13:13 BP 119 / 77 (auto/); jf3 13:24 Pulse 86 MON; Pulse Ox 96% ; jf3 13:28 BP 131 / 73 (auto/); jf3 13:43 BP 128 / 64 (auto/); jf3 13:43 Pulse 68 MON; Pulse Ox 98% ; jf3 13:53 BP 118 / 69 (auto/); jf3 13:54 Pulse 62 MON; Pulse Ox 99% ; jf3 13:57 Pulse 66 MON; Pulse Ox 98% ; jf3 13:58 BP 127 / 73 (auto/); jf3 14:08 BP 114 / 67 (auto/); jf3 14:09 Pulse 62 MON; Pulse Ox 100% ; jf3 14:12 Pulse 66 MON; Pulse Ox 98% ; jf3 14:13 BP 123 / 76 (auto/); jf3 14:23 BP 108 / 58 (auto/); jf3 14:24 Pulse 60 MON; Pulse Ox 99% ; jf3 14:27 Pulse 70 MON; Pulse Ox 98% ; jf3 14:28 BP 127 / 81 (auto/); jf3 14:38 BP 105 / 58 (auto/); jf3 14:38 Pulse 60 MON; Pulse Ox 99% ; jf3 14:40 Pulse 60 MON; Pulse Ox 98% ; jf3 14:42 Pulse 70 MON; Pulse Ox 98% ; jf3 14:43 BP 161 / 93 (auto/); jf3 15:01 BP 119 / 69 (auto/); jf3 15:08 BP 123 / 70 (auto/); jf3 15:08 Pulse 60 MON; Pulse Ox 96% ; jf3 15:23 BP 119 / 71 (auto/); jf3 15:23 Pulse 64 MON; Pulse Ox 95% ; jf3 16:54 Pulse 74 MON; Pulse Ox 97% ; jf3 16:56 BP 139 / 89 (auto/); jf3 18:40 Pulse 66 MON; Pulse Ox 98% ; jf3 18:41 BP 148 / 88 (auto/); jf3 18:53 BP 134 / 91; Pulse 75; Resp 18; Temp 97(O); Pulse Ox 98% on 2 lpm NC; Pain 0/10; jf3 11:31 Body Mass Index 43.18 (128.82 kg, 172.72 cm) jml1 12:21 pre NTG jf3 Vitals: 11:37 Log In Time N/A - ambulance arrival. jf3 ED Course: 11:21 Patient visited by Alise Mary, Applications Development Analyst. deg 11:21 Patient moved to Waiting deg 11:29 Patient moved to 19 deg 11:32 Patient visited by Miguel Russell. jml1 11:34 Yoshi Medina MD is Attending Physician. ml 11:34 Patient visited by Yoshi Medina MD. ml 11:35 Triage Initiated jf3 11:42 The patient / caregiver is instructed regarding the plan of care and ED course. Cardiac jf3 monitor on. Pulse ox on. Sitter at bedside. NIBP on. 11:42 Maintain field IV. Dressing intact. Good blood return noted. Site clean & dry. Gauge & jf3 site: 18g right AC. No procedures done that require assistance. 11:45 Patient visited by Miguel Russell. jml1 11:45 EKG done. (by ED staff). Reviewed by Yoshi Medina MD. jml1 11:52 Patient visited by Kb Dejesus,ANNE. jf3 12:07 Liver Profile Sent. jf3 12:07 B-Type Natiuretic Peptide Sent. jf3 12:07 Basic Metabolic Profile Sent. jf3 12:07 CBC with Diff Sent. jf3 12:07 Cardiac Injury Profile Sent. jf3 12:07 D-Dimer Quant Sent. jf3 12:07 Partial Thromboplastin Time Sent. jf3 12:07 Prothrombin Time Profile\E\INR Sent. jf3 12:08 Troponin Sent. jf3 12:24 Patient visited by Kb Dejesus,RN. jf3 12:33 Patient visited by Kb Dejesus,ANNE. jf3 12:39 portable chest Returned. EDMS 12:51 O2 via nasal cannula \T\ 2L/min. jf3 13:48 Patient visited by Kb Dejesus RN. jf3 14:42 CT Chest Angio R/O PE Returned. EDMS 15:33 Patient visited by Kb Dejesus RN. jf3 15:40 [facility] Payment Agreement was scanned into [employer] and attached to record. gjb 16:33 T-Sheet-- Draft Copy was scanned into [employer] and attached to record. klr 16:53 Patient visited by Kb Dejesus RN. jf3 Administered Medications: 12:19 Drug: NS 0.9% 500 ml [sodium chloride 0.9 % injection solution] Route: IV; Rate: 100 jf3 mL/hr; Site: right antecubital; 12:20 Drug: Aspirin 243 mg [aspirin 81 mg chewable tablet (3 tabs)] Route: PO; jf3 12:21 Drug: Nitrostat 0.4 mg [Nitrostat 0.4 mg sublingual tablet (1 tabs)] Route: Sublingual; jf3 12:28 Follow up: BP 122 / 82; Pulse 96 bpm; Pain 4/10 Adult; Response: Pain is decreased jf3 12:30 Drug: Nitrostat 0.4 mg [Nitrostat 0.4 mg sublingual tablet (1 tabs)] Route: Sublingual; jf3 12:36 Follow up: BP 104 / 63; Pulse 87 bpm; Pain 2/10 Adult; Response: Pain is decreased jf3 13:18 Drug: morphine 2 mg [morphine 2 mg/mL intravenous cartridge (1 mL)] Route: IVP; Site: jf3 right antecubital; 13:46 Follow up: Response: Pain is decreased jf3 14:11 Drug: Plavix - Clopidogrel 300 mg [clopidogrel 75 mg tablet (4 tabs)] Route: PO; jf3 18:54 Follow up: Response: No Adverse Reaction jf3 14:12 Drug: morphine 2 mg [morphine 2 mg/mL intravenous cartridge (1 mL)] Route: IVP; Site: 3 right antecubital; Order Results: Lab Order: B-Type Natiuretic Peptide; SPEC'M 11/10/16 12:04 Test: BRAIN NATRIURETIC PEPTIDE; Value: < 5.0; Range: <100; Units: PG/ML; Status: F Lab Order: Basic Metabolic Profile; SPEC'M 11/10/16 12:04 Test: GLUCOSE, FASTING; Value: 91; Range: 70-105; Units: MG/DL; Status: F Test: BLOOD UREA NITROGEN; Value: 14; Range: 7-18; Units: MG/DL; Status: F Test: CREATININE FOR GFR; Value: 1.37; Range: 0.70-1.30; Abnormal: Above high normal; Units: MG/DL; Status: F Test: GLOMERULAR FILTRATION RATE; Value: 58.8; Range: >60; Abnormal: Below low normal; Status: F Test: SODIUM LEVEL; Value: 138; Range: 136-145; Units: MEQ/L; Status: F Test: POTASSIUM SERUM; Value: 4.1; Range: 3.5-5.1; Units: MEQ/L; Status: F Test: CHLORIDE LEVEL; Value: 102; Range: 98-107; Units: MEQ/L; Status: F Test: CARBON DIOXIDE LEVEL; Value: 30; Range: 21-32; Units: MEQ/L; Status: F Test: ANION GAP; Value: 6; Range: 8-16; Abnormal: Below low normal; Units: MEQ/L; Status: F Test: CALCIUM LEVEL; Value: 8.8; Range: 8.5-10.1; Units: MG/DL; Status: F Test Note: ; Units are mL/min/1.73 m2 Chronic Kidney Disease Staging per NKF: Stage I & II GFR >=60 Normal to Mildly Decreased Stage III GFR 30-59 Moderately Decreased Stage IV GFR 15-29 Severely Decreased Stage V GFR <15 Very Little GFR Left ESRD GFR <15 on AUTOMOTIVE METALSMITH Lab Order: CBC with Diff; SPEC'M 11/10/16 12:04 Test: WHITE BLOOD COUNT; Value: 6.7; Range: 4.0-10.0; Units: K/mm3; Status: F Test: RED BLOOD COUNT; Value: 5.06; Range: 4.30-6.10; Units: M/mm3; Status: F Test: HEMOGLOBIN; Value: 15.6; Range: 14.0-18.0; Units: g/dl; Status: F Test: HEMATOCRIT; Value: 47.0; Range: 42.0-52.0; Units: %; Status: F Test: MEAN CORPUSCULAR VOLUME; Value: 93.0; Range: 80.0-96.0; Units: fl; Status: F Test: MEAN CORPUSCULAR HEMOGLOBIN; Value: 30.9; Range: 27.0-33.0; Units: pg; Status: F Test: MEAN CORPUSCULAR HGB CONC; Value: 33.3; Range: 32.0-36.5; Units: g/dl; Status: F Test: RED CELL DISTRIBUTION WIDTH; Value: 13.4; Range: 11.5-14.5; Units: %; Status: F Test: PLATELET COUNT, AUTOMATED; Value: 192; Range: 150-450; Units: k/mm3; Status: F Test: NEUTROPHILS %; Value: 63.7; Range: 36.0-66.0; Units: %; Status: F Test: LYMPH %; Value: 23.1; Range: 24.0-44.0; Abnormal: Below low normal; Units: %; Status: F Test: MONO %; Value: 9.5; Range: 0.0-5.0; Abnormal: Above high normal; Units: %; Status: F Test: EOS %; Value: 1.7; Range: 0.0-3.0; Units: %; Status: F Test: BASO %; Value: 0.3; Range: 0.0-1.0; Units: %; Status: F Test: LARGE UNSTAINED CELL %; Value: 1.7; Range: 0.0-4.0; Units: %; Status: F Test: NEUTROPHILS #; Value: 4.3; Range: 1.8-7.7; Units: K/mm3; Status: F Test: LYMPH #; Value: 1.7; Range: 1.5-4.5; Units: K/mm3; Status: F Test: MONO #; Value: 0.6; Range: 0.0-0.8; Units: K/mm3; Status: F Test: EOS #; Value: 0.1; Range: 0.0-0.50; Units: K/mm3; Status: F Test: BASO #; Value: 0.0; Range: 0.0-0.2; Units: K/mm3; Status: F Test: LARGE UNSTAINED CELL #; Value: 0.1; Range: 0.0-0.4; Units: K/mm3; Status: F Lab Order: Cardiac Injury Profile; [facility] 11/10/16 12:04 Test: CPK CREATINE PHOSPHOKINASE; Value: 270; Range: 39-308; Units: U/L; Status: F Test: CK-MB VALUE MASS; Value: 2.0; Range: 0.0-3.6; Units: NG/ML; Status: F Test: MB/CK RELATIVE INDEX; Value: 0.74; Range: < OR =4; Status: F Test Note: ; DIAGNOSIS CRITERIA MMB ng/ml Relative Index (RI) NON-AMI < or = 5 N/A PAVON ZONE > 5 < or = 4 AMI > 5 > 4 Lab Order: D-Dimer Quant; 11/10/16 12:04 Test: D-DIMER QUANT; Value: < 270.0; Range: <500; Units: ng/ml; Status: F Lab Order: Partial Thromboplastin Time; [facility] 11/10/16 12:04 Test: PARTIAL THROMBOPLASTIN TIME; Value: 29.0; Range: 26.6-37.1; Units: SECONDS; Status: F Lab Order: Prothrombin Time Profile\E\INR; [facility] 11/10/16 12:04 Test: PROTHROMBIN TIME; Value: 13.7; Range: 12.3-14.5; Units: SECONDS; Status: F Test: INR; Value: 1.04; Status: F Test Note: ; THERAPUTIC HUMAN INR VALUES INDICATIONS NORMAL RANGES PROPHYLAXIS/TREATMENT OF: VENOUS THROMBOSIS 2.0-3.0 PULMONARY EMBOLISM 2.0-3.0 PREVENTION OF SYSTEMIC EMBOLISM FROM: TISSUE HEART VALVES 2.0-3.0 ACUTE MYOCARDIAL INFARCTION 2.0-3.0 VALVULAR HEART DISEASE 2.0-3.0 ATRIAL FIBRILLATION 2.0-3.0 MECHANICAL VALVES(HIGH RISK) 2.5-3.5 RECURRENT MYOCARDIAL INFARCTION 2.5-3.5 Lab Order: Troponin; [facility]04 Test: TROPONIN I; Value: < 0.02; Range: < 0.10; Units: NG/ML; Status: F Test Note: ; Troponin I Reference Interval for [email or web address] LOCI: 99th Percentile= 0.00-0.045 ng/ml Risk Stratification: <= 0.10 ng/ml Decreased Risk for Adverse Clinical Events. 0.10-1.50 ng/ml Increased Risk for Adverse Clinical Events. Evaluation of additional criterion and/or repeat testing in 2-6 hours is suggested to rule out myocardial damage. >= 1.50 ng/ml Indicative of Myocardial Injury. Lab Order: Liver Profile; SPEC'M 11/10/16 12:04 Test: AST/SGOT; Value: 29; Range: 15-37; Units: U/L; Status: F Test: ALT/SGPT; Value: 40; Range: 12-78; Units: U/L; Status: F Test: ALKALINE PHOSPHATASE; Value: 76; Range: 45-117; Units: U/L; Status: F Test: BILIRUBIN,TOTAL; Value: 0.4; Range: 0.2-1.0; Units: MG/DL; Status: F Test: BILIRUBIN,DIRECT; Value: < 0.1; Range: 0.0-0.2; Units: MG/DL; Status: F Test: TOTAL PROTEIN; Value: 7.5; Range: 6.4-8.2; Units: GM/DL; Status: F Test: ALBUMIN; Value: 3.9; Range: 3.2-5.2; Units: GM/DL; Status: F Test: ALBUMIN/GLOBULIN RATIO; Value: 1.08; Range: 1.00-1.93; Status: F Radiology Order: portable chest Test: portable chest REASON FOR EXAMINATION: chst pain; Chest one-view; ; HISTORY: Chest pain; ; Comparison: 11/05/2016; ; The lungs are clear. The heart is normal in size. The pulmonary vasculature is; normal in appearance.; ; Impression: No acute disease.; ; ; Signed by; Mitch Blum MD 11/10/2016 12:19 P; Radiology Order: CT Chest Angio R/O PE Test: CT Chest Angio R/O PE REASON FOR EXAMINATION: Chest Pain; CT ANGIOGRAM OF THE CHEST: 11/10/2016.; ; Comparison portable chest 11/10/2016, 11/05/2016.; ; Clinical history: Chest pain, dyspnea.; ; Technique. The patient received a bolus of 75 mL Isovue 370 with our pulmonary; CT angiogram protocol with coronal and sagittal thick slab reconstructions with; MIP reformatting.; ; Findings: Lung bases show dependent atelectatic change mid and posterior lower; lung zones. There is no pleural effusion, acute infiltrate, parenchymal nodule; or mass. Heart not grossly enlarged. There is no pericardial thickening or; effusion. I see no hiatal hernia. The aorta is without aneurysm or dissection.; The main, right and left pulmonary arteries and the mediastinum are without; filling defect. The lobar, segmental pulmonary arteries and visible subsegmental; arteries are without airspace opacification. There is no vessel cutoff or; definite filling defect that would suggest pulmonary embolism in the lobar and; segmental arteries. Those visible subsegmental arteries are intact. There is no; pathologic sized mediastinal or hilar adenopathy and no axillary or; supraclavicular mass. The bone windows show the sternum, manubrium, clavicles,; humeral heads and scapula without any acute fracture. Spine was grossly intact.; Visualized ribs without acute finding. Some respiratory motion limits evaluation; of the upper abdomen and the chest that said adrenal glands are grossly normal.; Upper poles of the kidneys, spleen and pancreas seen were unremarkable. Portion; of the gallbladder is present and intact without calcified stone.; ; Impression:; ; 1. No compelling CT evidence for pulmonary thromboembolism in the central; pulmonary arteries, lobar and segmental arteries as well as those visible; subsegmental arteries.; ; 2. There is no pleural effusion, definite infiltrate, pulmonary nodule or; parenchymal mass. Minor dependent atelectatic changes are seen. There is some; motion artifact limiting this evaluation.; ; 3. No hiatal hernia. Upper abdomen grossly intact. No compression deformity or; focal lesion in the spine.; ; ; Signed by; Brannon Kim MD 11/10/2016 04:25 P; Outcome: 14:11 ER care complete, transfer ordered by Provider. 17:06 Admission hand-off: Report called to Antoinette Leiva RN \T\ [place] [id number] 18:51 Discharge Assessment: patient administered narcotics - yes. Patient was admitted to the [address] or transferred to another facility. The following High Risk Discharge criteria are identified: None. [facility] to accompanying personnel Jeronimo Muñiz Ship Mate, Transfer form completed. x-rays sent w/ patient. Condition: good. CT Study completed. Property :Personal belongings accompany Pt. 18:57 Patient left the ED. jf3 Signatures: Dispatcher [employer] Yoshi Vasquez MD MD ml Murray, Denise, Applications Development Analyst Unit deg Miguel Russelll1 Kb Dejesus RN RN jf3 Lyssa Carpenter Kathie klr Corrections: (The following items were deleted from the chart) 13:47 13:45 General: resting supine on stretcher with mother at bedside. Pt states pain is jf3 now 1-210 after morphine. Respirations easy and unlabored. Call light in reach. Will continue to monitor. jf3 MTDD
--- NOTE | 2016-11-10 20:06 | ECGEPIP ---
Stationary ECG Study [facility] - ED Test Date: 2016-11-10 Pat Name: DEANNA AN Department: Room: - Gender: M Slurry Control Tender: KULDEEP : 1965 Requested By: Yoshi Medina Order Number: [id number] Reading MD: Purvi Cox Measurements Intervals [place] Rate: 70 P: -21 PA: 113 QRS: -26 QRSD: 85 T: 29 QT: 370 QTc: 400 Interpretive Statements SINUS RHYTHM WITH SINUS ARRHYTHMIA WITH SHORT PA INTERVAL BORDERLINE LEFT AXIS DEVIATION LOW QRS VOLTAGE IN PRECORDIAL LEADS INCREASED RATE 11/05/16 Electronically Signed On 11-10-2016 20:05:53 EST by Purvi Cox
--- NOTE | 2016-11-12 19:57 | EDDOCDS ---
Physician Documentation [facility] Name: Rinku Whelan Age: 51 yrs Sex: Male : 1965 Arrival Date: 11/10/2016 Time: 11:20 Bed 19 Private MD: Disposition: 11/10 14:12 Critical Care:. ml Disposition: 11/10/16 14:11 Transfer ordered to [facility]. Diagnosis is Other chest pain. - Reason for transfer: Higher level of care. - Accepting physician is Dr sade villaseñor. - Condition is Stable. - Problem is new. - Symptoms are unchanged. Historical: - Allergies: Codeine Sulfate (Vomit); - Home Meds: 1. aspirin 81 mg Oral tab 1 tab once daily (Last dose: 11/10/2016 06:00) 2. buspirone 5 mg Oral tab 1 tab 2 times per day (Last dose: 11/10/2016 06:00) 3. docusate sodium 100 mg Oral cap 1 cap once daily (Last dose: 11/09/2016) 4. ferrous sulfate 325 mg (65 mg iron) Oral tab 325 mg twice a day (Last dose: 11/10/2016 06:00) 5. Fish Oil 360-1,200 mg Oral cap twice a day 6. gabapentin 300 mg Oral cap 2 caps 2 caps in am, 2 caps at noon and 3 caps at HS (Last dose: 11/10/2016 06:00) 7. Lexapro 30 mg Oral once daily HS (Last dose: 11/09/2016) 8. Protonix 40 mg Oral TbEC 1 tab once daily (Last dose: 11/10/2016 06:00) 9. risperidone 0.5 mg oral tab once daily HS (Last dose: 11/09/2016) 10. Synthroid 75 mcg Oral tab 1 tab once daily (Last dose: 11/10/2016 06:00) 11. tizanidine 4 mg oral cap 1 cap daily (Last dose: 11/09/2016 19:00) 12. Vitamin D Oral 1000 unit daily (Last dose: 11/10/2016 06:00) 13. Zocor 40 mg Oral tab 1 tab once daily (Last dose: 11/10/2016 06:00) 14. Zyrtec 10 mg Oral chew 1 tab once daily (Last dose: 11/09/2016 19:00) - PMHx: Depression; GERD; Hypercholesterolemia; Hypertension; Hypothyroidism; Kidney stones; Panic Attacks; Sciatica; - PSHx: Left foot surgery; Hemorrhoidectomy; Carpal Tunnel Repair- Right; - Social history: Smoking status: Patient states former smoker of tobacco. No barriers to communication noted, The patient speaks fluent Serbian. - Family history: Not pertinent. - : The pt / caregiver states he / she is not on anticoagulants. Home medication list is obtained from the patient, [email or web address] import data. - Exposure Risk Screening:: None identified. Vital Signs: 11:31 BP 126 / 86; Pulse 74; Resp 20; Temp 98.0(TE); Pulse Ox 97% on R/A; Weight 128.82 kg / jml1 284 lbs; Height 5 ft. 8 in. (172.72 cm); Pain 5/10; 11:42 Pulse 74 MON; Pulse Ox 96% ; jf3 11:43 BP 136 / 94 (auto/); jf3 11:58 BP 133 / 92 (auto/); jf3 11:58 Pulse 70 MON; Pulse Ox 98% ; jf3 12:13 BP 155 / 86 (auto/); jf3 12:13 Pulse 76 MON; Pulse Ox 97% ; jf3 12:19 BP 131 / 87 (auto/); jf3 12:19 Pulse 82 MON; Pulse Ox 97% ; jf3 12:21 BP 131 / 87; Pulse 76; Pain 5/10; jf3 12:28 BP 117 / 82 (auto/); jf3 12:28 Pulse 96 MON; Pulse Ox 95% ; jf3 12:28 BP 122 / 82; Pulse 96; Pain 4/10; jf3 12:29 BP 122 / 82 (auto/); jf3 12:29 Pulse 90 MON; Pulse Ox 96% ; jf3 12:35 Pulse 84 MON; Pulse Ox 96% ; jf3 12:36 BP 104 / 63 (auto/); jf3 12:36 BP 104 / 63; Pulse 87; Pain 2/10; jf3 12:42 Pulse 72 MON; Pulse Ox 96% ; jf3 12:43 BP 103 / 66 (auto/); jf3 12:57 Pulse 60 MON; Pulse Ox 96% ; jf3 12:58 BP 111 / 77 (auto/); jf3 13:12 Pulse 62 MON; Pulse Ox 97% ; jf3 13:13 BP 119 / 77 (auto/); jf3 13:24 Pulse 86 MON; Pulse Ox 96% ; jf3 13:28 BP 131 / 73 (auto/); jf3 13:43 BP 128 / 64 (auto/); jf3 13:43 Pulse 68 MON; Pulse Ox 98% ; jf3 13:53 BP 118 / 69 (auto/); jf3 13:54 Pulse 62 MON; Pulse Ox 99% ; jf3 13:57 Pulse 66 MON; Pulse Ox 98% ; jf3 13:58 BP 127 / 73 (auto/); jf3 14:08 BP 114 / 67 (auto/); jf3 14:09 Pulse 62 MON; Pulse Ox 100% ; jf3 14:12 Pulse 66 MON; Pulse Ox 98% ; jf3 14:13 BP 123 / 76 (auto/); jf3 14:23 BP 108 / 58 (auto/); jf3 14:24 Pulse 60 MON; Pulse Ox 99% ; jf3 14:27 Pulse 70 MON; Pulse Ox 98% ; jf3 14:28 BP 127 / 81 (auto/); jf3 14:38 BP 105 / 58 (auto/); jf3 14:38 Pulse 60 MON; Pulse Ox 99% ; jf3 14:40 Pulse 60 MON; Pulse Ox 98% ; jf3 14:42 Pulse 70 MON; Pulse Ox 98% ; jf3 14:43 BP 161 / 93 (auto/); jf3 15:01 BP 119 / 69 (auto/); jf3 15:08 BP 123 / 70 (auto/); jf3 15:08 Pulse 60 MON; Pulse Ox 96% ; jf3 15:23 BP 119 / 71 (auto/); jf3 15:23 Pulse 64 MON; Pulse Ox 95% ; jf3 16:54 Pulse 74 MON; Pulse Ox 97% ; jf3 16:56 BP 139 / 89 (auto/); jf3 18:40 Pulse 66 MON; Pulse Ox 98% ; jf3 18:41 BP 148 / 88 (auto/); jf3 18:53 BP 134 / 91; Pulse 75; Resp 18; Temp 97(O); Pulse Ox 98% on 2 lpm NC; Pain 0/10; jf3 11:31 Body Mass Index 43.18 (128.82 kg, 172.72 cm) jml1 12:21 pre NTG jf3 MDM: 11:35 ECG WITH READING ER PHYS+CARDIAG ordered. EDMS 11:44 Aspirin Chewable Tablet 243 mg PO once ordered. ml 11:44 Nitrostat 0.4 mg Sublingual every 5 minutes; hold if SBP<90mmHg.Document Pain Score ml Response to Each Dose x3 ordered. 11:44 Massage Coordinator/Pulse Ox/q 15 min VS ordered. ml 11:44 IV Saline Lock ordered. ml 11:44 Oxygen at 4L/Min NC or Home dosage ordered. ml 11:44 Rhythm Strip to chart ordered. ml 11:44 Undress patient appropriately for examination ordered. ml 11:45 portable chest Ordered. EDMS 11:45 B-Type Natiuretic Peptide Ordered. EDMS 11:45 Basic Metabolic Profile Ordered. EDMS 11:45 CBC with Diff Ordered. EDMS 11:45 Cardiac Injury Profile Ordered. EDMS 11:45 D-Dimer Quant Ordered. EDMS 11:45 Partial Thromboplastin Time Ordered. EDMS 11:45 Prothrombin Time Profile\E\INR Ordered. EDMS 11:45 Troponin Ordered. EDMS 11:45 Liver Profile Ordered. EDMS 11:56 NS 0.9% 500 ml IV at 100 mL/hr once ordered. ml 13:05 Basic Metabolic Profile Reviewed. ml 13:05 CBC with Diff Reviewed. ml 13:05 B-Type Natiuretic Peptide Reviewed. ml 13:05 Cardiac Injury Profile Reviewed. ml 13:05 D-Dimer Quant Reviewed. ml 13:05 Partial Thromboplastin Time Reviewed. ml 13:05 Prothrombin Time Profile\E\INR Reviewed. ml 13:05 Troponin Reviewed. ml 13:05 Liver Profile Reviewed. ml 13:05 portable chest Reviewed. ml 13:07 CT Chest Angio R/O PE Ordered. EDMS 13:09 morphine 2 mg IVP every 5 minutes; Document pain score/vitals after each dose (Hold if ml SBP < 90mmHg) x5 ordered. 13:56 Plavix - Clopidogrel 300 mg PO once ordered. ml 13:58 Misc. Nursing Order ordered. ml 14:36 REGULAR+DIET ordered. EDMS 15:25 Financial registration complete. gjb 15:40 [facility] Payment Agreement was scanned into [employer] and attached to record. gjb 16:33 T-Sheet-- Draft Copy was scanned into [employer] and attached to record. klr 11/11 11:55 ECG/EKG was scanned into [employer] and attached to record. gb 11:55 Trend VS was scanned into [employer] and attached to record. gb 11:56 Rhythm Strip was scanned into [employer] and attached to record. gb 11:56 Radiology Report was scanned into [employer] and attached to record. gb Administered Medications: 11/10 12:19 Drug: NS 0.9% 500 ml [sodium chloride 0.9 % injection solution] Route: IV; Rate: 100 jf3 mL/hr; Site: right antecubital; 12:20 Drug: Aspirin 243 mg [aspirin 81 mg chewable tablet (3 tabs)] Route: PO; jf3 12:21 Drug: Nitrostat 0.4 mg [Nitrostat 0.4 mg sublingual tablet (1 tabs)] Route: Sublingual; jf3 12:28 Follow up: BP 122 / 82; Pulse 96 bpm; Pain 4/10 Adult; Response: Pain is decreased jf3 12:30 Drug: Nitrostat 0.4 mg [Nitrostat 0.4 mg sublingual tablet (1 tabs)] Route: Sublingual; jf3 12:36 Follow up: BP 104 / 63; Pulse 87 bpm; Pain 2/10 Adult; Response: Pain is decreased jf3 13:18 Drug: morphine 2 mg [morphine 2 mg/mL intravenous cartridge (1 mL)] Route: IVP; Site: jf3 right antecubital; 13:46 Follow up: Response: Pain is decreased jf3 14:11 Drug: Plavix - Clopidogrel 300 mg [clopidogrel 75 mg tablet (4 tabs)] Route: PO; jf3 18:54 Follow up: Response: No Adverse Reaction jf3 14:12 Drug: morphine 2 mg [morphine 2 mg/mL intravenous cartridge (1 mL)] Route: IVP; Site: jf3 right antecubital; Critical Care Time: 14:12 Critical care time: Bedside Care: 90 minutes, Consultation: 10 minutes. Total time: 100 ml minutes Signatures: Dispatcher [employer] EDMS Yoshi Medina MD MD ml Barnhardt, Gloria, Reg Kb Rios RN RN jf3 Lyssa Carpenter Kathie klr The chart was reviewed and I authenticate all verbal orders and agree with the evaluation and treatment provided.Corrections: (The following items were deleted from the chart) 11:50 11:44 Massage Coordinator/Pulse Ox/q 30 min VS ordered. ml jf3 Attachments: 15:40 [facility] Payment Agreement gjb 16:33 T-Sheet-- Draft Copy r 11/11 11:55 ECG/EKG gb Chart Complete MTDD
--- NOTE | 2016-11-12 19:57 | EDDOCDS ---
Physician Documentation [facility] Name: Rinku Whelan Age: 51 yrs Sex: Male : 1965 Arrival Date: 11/10/2016 Time: 11:20 Bed 19 Private MD: Disposition: 11/10 14:12 Critical Care:. ml Disposition: 11/10/16 14:11 Transfer ordered to [facility]. Diagnosis is Other chest pain. - Reason for transfer: Higher level of care. - Accepting physician is Dr sade villaseñor. - Condition is Stable. - Problem is new. - Symptoms are unchanged. Historical: - Allergies: Codeine Sulfate (Vomit); - Home Meds: 1. aspirin 81 mg Oral tab 1 tab once daily (Last dose: 11/10/2016 06:00) 2. buspirone 5 mg Oral tab 1 tab 2 times per day (Last dose: 11/10/2016 06:00) 3. docusate sodium 100 mg Oral cap 1 cap once daily (Last dose: 11/09/2016) 4. ferrous sulfate 325 mg (65 mg iron) Oral tab 325 mg twice a day (Last dose: 11/10/2016 06:00) 5. Fish Oil 360-1,200 mg Oral cap twice a day 6. gabapentin 300 mg Oral cap 2 caps 2 caps in am, 2 caps at noon and 3 caps at HS (Last dose: 11/10/2016 06:00) 7. Lexapro 30 mg Oral once daily HS (Last dose: 11/09/2016) 8. Protonix 40 mg Oral TbEC 1 tab once daily (Last dose: 11/10/2016 06:00) 9. risperidone 0.5 mg oral tab once daily HS (Last dose: 11/09/2016) 10. Synthroid 75 mcg Oral tab 1 tab once daily (Last dose: 11/10/2016 06:00) 11. tizanidine 4 mg oral cap 1 cap daily (Last dose: 11/09/2016 19:00) 12. Vitamin D Oral 1000 unit daily (Last dose: 11/10/2016 06:00) 13. Zocor 40 mg Oral tab 1 tab once daily (Last dose: 11/10/2016 06:00) 14. Zyrtec 10 mg Oral chew 1 tab once daily (Last dose: 11/09/2016 19:00) - PMHx: Depression; GERD; Hypercholesterolemia; Hypertension; Hypothyroidism; Kidney stones; Panic Attacks; Sciatica; - PSHx: Left foot surgery; Hemorrhoidectomy; Carpal Tunnel Repair- Right; - Social history: Smoking status: Patient states former smoker of tobacco. No barriers to communication noted, The patient speaks fluent Welsh. - Family history: Not pertinent. - : The pt / caregiver states he / she is not on anticoagulants. Home medication list is obtained from the patient, [employer] import data. - Exposure Risk Screening:: None identified. Vital Signs: 11:31 BP 126 / 86; Pulse 74; Resp 20; Temp 98.0(TE); Pulse Ox 97% on R/A; Weight 128.82 kg / jml1 284 lbs; Height 5 ft. 8 in. (172.72 cm); Pain 5/10; 11:42 Pulse 74 MON; Pulse Ox 96% ; jf3 11:43 BP 136 / 94 (auto/); jf3 11:58 BP 133 / 92 (auto/); jf3 11:58 Pulse 70 MON; Pulse Ox 98% ; jf3 12:13 BP 155 / 86 (auto/); jf3 12:13 Pulse 76 MON; Pulse Ox 97% ; jf3 12:19 BP 131 / 87 (auto/); jf3 12:19 Pulse 82 MON; Pulse Ox 97% ; jf3 12:21 BP 131 / 87; Pulse 76; Pain 5/10; jf3 12:28 BP 117 / 82 (auto/); jf3 12:28 Pulse 96 MON; Pulse Ox 95% ; jf3 12:28 BP 122 / 82; Pulse 96; Pain 4/10; jf3 12:29 BP 122 / 82 (auto/); jf3 12:29 Pulse 90 MON; Pulse Ox 96% ; jf3 12:35 Pulse 84 MON; Pulse Ox 96% ; jf3 12:36 BP 104 / 63 (auto/); jf3 12:36 BP 104 / 63; Pulse 87; Pain 2/10; jf3 12:42 Pulse 72 MON; Pulse Ox 96% ; jf3 12:43 BP 103 / 66 (auto/); jf3 12:57 Pulse 60 MON; Pulse Ox 96% ; jf3 12:58 BP 111 / 77 (auto/); jf3 13:12 Pulse 62 MON; Pulse Ox 97% ; jf3 13:13 BP 119 / 77 (auto/); jf3 13:24 Pulse 86 MON; Pulse Ox 96% ; jf3 13:28 BP 131 / 73 (auto/); jf3 13:43 BP 128 / 64 (auto/); jf3 13:43 Pulse 68 MON; Pulse Ox 98% ; jf3 13:53 BP 118 / 69 (auto/); jf3 13:54 Pulse 62 MON; Pulse Ox 99% ; jf3 13:57 Pulse 66 MON; Pulse Ox 98% ; jf3 13:58 BP 127 / 73 (auto/); jf3 14:08 BP 114 / 67 (auto/); jf3 14:09 Pulse 62 MON; Pulse Ox 100% ; jf3 14:12 Pulse 66 MON; Pulse Ox 98% ; jf3 14:13 BP 123 / 76 (auto/); jf3 14:23 BP 108 / 58 (auto/); jf3 14:24 Pulse 60 MON; Pulse Ox 99% ; jf3 14:27 Pulse 70 MON; Pulse Ox 98% ; jf3 14:28 BP 127 / 81 (auto/); jf3 14:38 BP 105 / 58 (auto/); jf3 14:38 Pulse 60 MON; Pulse Ox 99% ; jf3 14:40 Pulse 60 MON; Pulse Ox 98% ; jf3 14:42 Pulse 70 MON; Pulse Ox 98% ; jf3 14:43 BP 161 / 93 (auto/); jf3 15:01 BP 119 / 69 (auto/); jf3 15:08 BP 123 / 70 (auto/); jf3 15:08 Pulse 60 MON; Pulse Ox 96% ; jf3 15:23 BP 119 / 71 (auto/); jf3 15:23 Pulse 64 MON; Pulse Ox 95% ; jf3 16:54 Pulse 74 MON; Pulse Ox 97% ; jf3 16:56 BP 139 / 89 (auto/); jf3 18:40 Pulse 66 MON; Pulse Ox 98% ; jf3 18:41 BP 148 / 88 (auto/); jf3 18:53 BP 134 / 91; Pulse 75; Resp 18; Temp 97(O); Pulse Ox 98% on 2 lpm NC; Pain 0/10; jf3 11:31 Body Mass Index 43.18 (128.82 kg, 172.72 cm) jml1 12:21 pre NTG jf3 MDM: 11:35 ECG WITH READING ER PHYS+CARDIAG ordered. EDMS 11:44 Aspirin Chewable Tablet 243 mg PO once ordered. ml 11:44 Nitrostat 0.4 mg Sublingual every 5 minutes; hold if SBP<90mmHg.Document Pain Score ml Response to Each Dose x3 ordered. 11:44 Sky Cap/Pulse Ox/q 15 min VS ordered. ml 11:44 IV Saline Lock ordered. ml 11:44 Oxygen at 4L/Min NC or Home dosage ordered. ml 11:44 Rhythm Strip to chart ordered. ml 11:44 Undress patient appropriately for examination ordered. ml 11:45 portable chest Ordered. EDMS 11:45 B-Type Natiuretic Peptide Ordered. EDMS 11:45 Basic Metabolic Profile Ordered. EDMS 11:45 CBC with Diff Ordered. EDMS 11:45 Cardiac Injury Profile Ordered. EDMS 11:45 D-Dimer Quant Ordered. EDMS 11:45 Partial Thromboplastin Time Ordered. EDMS 11:45 Prothrombin Time Profile\E\INR Ordered. EDMS 11:45 Troponin Ordered. EDMS 11:45 Liver Profile Ordered. EDMS 11:56 NS 0.9% 500 ml IV at 100 mL/hr once ordered. ml 13:05 Basic Metabolic Profile Reviewed. ml 13:05 CBC with Diff Reviewed. ml 13:05 B-Type Natiuretic Peptide Reviewed. ml 13:05 Cardiac Injury Profile Reviewed. ml 13:05 D-Dimer Quant Reviewed. ml 13:05 Partial Thromboplastin Time Reviewed. ml 13:05 Prothrombin Time Profile\E\INR Reviewed. ml 13:05 Troponin Reviewed. ml 13:05 Liver Profile Reviewed. ml 13:05 portable chest Reviewed. ml 13:07 CT Chest Angio R/O PE Ordered. EDMS 13:09 morphine 2 mg IVP every 5 minutes; Document pain score/vitals after each dose (Hold if ml SBP < 90mmHg) x5 ordered. 13:56 Plavix - Clopidogrel 300 mg PO once ordered. ml 13:58 Misc. Nursing Order ordered. ml 14:36 REGULAR+DIET ordered. EDMS 15:25 Financial registration complete. gjb 15:40 [facility] Payment Agreement was scanned into [email or web address] and attached to record. gjb 16:33 T-Sheet-- Draft Copy was scanned into [employer] and attached to record. klr 11/11 11:55 ECG/EKG was scanned into [employer] and attached to record. gb 11:55 Trend VS was scanned into [employer] and attached to record. gb 11:56 Rhythm Strip was scanned into [employer] and attached to record. gb 11:56 Radiology Report was scanned into [employer] and attached to record. gb Administered Medications: 11/10 12:19 Drug: NS 0.9% 500 ml [sodium chloride 0.9 % injection solution] Route: IV; Rate: 100 jf3 mL/hr; Site: right antecubital; 12:20 Drug: Aspirin 243 mg [aspirin 81 mg chewable tablet (3 tabs)] Route: PO; jf3 12:21 Drug: Nitrostat 0.4 mg [Nitrostat 0.4 mg sublingual tablet (1 tabs)] Route: Sublingual; jf3 12:28 Follow up: BP 122 / 82; Pulse 96 bpm; Pain 4/10 Adult; Response: Pain is decreased jf3 12:30 Drug: Nitrostat 0.4 mg [Nitrostat 0.4 mg sublingual tablet (1 tabs)] Route: Sublingual; jf3 12:36 Follow up: BP 104 / 63; Pulse 87 bpm; Pain 2/10 Adult; Response: Pain is decreased jf3 13:18 Drug: morphine 2 mg [morphine 2 mg/mL intravenous cartridge (1 mL)] Route: IVP; Site: jf3 right antecubital; 13:46 Follow up: Response: Pain is decreased jf3 14:11 Drug: Plavix - Clopidogrel 300 mg [clopidogrel 75 mg tablet (4 tabs)] Route: PO; jf3 18:54 Follow up: Response: No Adverse Reaction jf3 14:12 Drug: morphine 2 mg [morphine 2 mg/mL intravenous cartridge (1 mL)] Route: IVP; Site: jf3 right antecubital; Critical Care Time: 14:12 Critical care time: Bedside Care: 90 minutes, Consultation: 10 minutes. Total time: 100 ml minutes Signatures: Dispatcher [employer] EDMS Yoshi Medina MD MD ml Barnhardt, Gloria, Reg Kb Rios RN RN jf3 Lyssa Carpenter Kathie klr The chart was reviewed and I authenticate all verbal orders and agree with the evaluation and treatment provided.Corrections: (The following items were deleted from the chart) 11:50 11:44 Sky Cap/Pulse Ox/q 30 min VS ordered. ml jf3 Attachments: 15:40 [facility] Payment Agreement gjb 16:33 T-Sheet-- Draft Copy r 11/11 11:55 ECG/EKG gb Chart Complete MTDD
--- NOTE | 2016-11-12 19:57 | EDDOCDS ---
Nurse's Notes [facility] Name: Rinku An Age: 51 yrs Sex: Male : 1965 Arrival Date: 11/10/2016 Time: 11:20 Bed 19 Private MD: Diagnosis: Other chest pain Presentation: 11/10 11:29 Presenting complaint: Patient states: CP light headedness and dizziness that woke him jf3 up at [address] Juárez's office and was told to come to ER is having CP. Pt states he is going to [facility] for a cardiac cath that is scheduled for tomorrow at 1100. 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 pt took 81mg ASA x1 this AM. Adult Sepsis Screening: The patient jf3 does not have new or worsening altered mentation. Patient's respiratory rate is less than 22. Systolic blood pressure is greater than 100. Patient has a qSOFA score of 0- Negative Sepsis Screen. Suicide/Homicide risk assessment- the patient denies having any suicidal and/or homicidal ideations and does not present with any other emotional, behavioral or mental health complaints. Status: Patient is not a managed services consultant or dependent. Transition of care: patient was not received from another setting of care. Care prior to arrival: See EMS report. IV initiated. Saline lock initiated. Glucose check. 123 mg/dl. 11:34 Acuity: PAULA Level 2 3 11:34 Method Of Arrival: Ambulance 3 Triage Assessment: 11:37 General: Appears in no apparent distress, comfortable, Behavior is cooperative. Pain: jf3 Location: anterior aspect of left upper chest Pain currently is 5 out of 10 on a pain scale. Pt Declines HIV testing. The patient is triaged at the bedside. See Assessment in Nurses Notes section of ED record. Cardiovascular: Chest pain is described as mild, radiates Does not radiate. episodes are continuous began 0200 today. Respiratory: Airway is patent Respiratory effort is even, unlabored, Respiratory pattern is regular, symmetrical. Respiratory: Reports shortness of breath. Derm: Skin is normal. Historical: - Allergies: Codeine Sulfate (Vomit); - Home Meds: 1. aspirin 81 mg Oral tab 1 tab once daily (Last dose: 11/10/2016 06:00) 2. buspirone 5 mg Oral tab 1 tab 2 times per day (Last dose: 11/10/2016 06:00) 3. docusate sodium 100 mg Oral cap 1 cap once daily (Last dose: 11/09/2016) 4. ferrous sulfate 325 mg (65 mg iron) Oral tab 325 mg twice a day (Last dose: 11/10/2016 06:00) 5. Fish Oil 360-1,200 mg Oral cap twice a day 6. gabapentin 300 mg Oral cap 2 caps 2 caps in am, 2 caps at noon and 3 caps at HS (Last dose: 11/10/2016 06:00) 7. Lexapro 30 mg Oral once daily HS (Last dose: 11/09/2016) 8. Protonix 40 mg Oral TbEC 1 tab once daily (Last dose: 11/10/2016 06:00) 9. risperidone 0.5 mg oral tab once daily HS (Last dose: 11/09/2016) 10. Synthroid 75 mcg Oral tab 1 tab once daily (Last dose: 11/10/2016 06:00) 11. tizanidine 4 mg oral cap 1 cap daily (Last dose: 11/09/2016 19:00) 12. Vitamin D Oral 1000 unit daily (Last dose: 11/10/2016 06:00) 13. Zocor 40 mg Oral tab 1 tab once daily (Last dose: 11/10/2016 06:00) 14. Zyrtec 10 mg Oral chew 1 tab once daily (Last dose: 11/09/2016 19:00) - PMHx: Depression; GERD; Hypercholesterolemia; Hypertension; Hypothyroidism; Kidney stones; Panic Attacks; Sciatica; - PSHx: Left foot surgery; Hemorrhoidectomy; Carpal Tunnel Repair- Right; - Social history: Smoking status: Patient states former smoker of tobacco. No barriers to communication noted, The patient speaks fluent Danish. - Family history: Not pertinent. - : The pt / caregiver states he / she is not on anticoagulants. Home medication list is obtained from the patient, [employer] import data. - Exposure Risk Screening:: None identified. Screenin:42 Screening information is obtained from the patient. Fall risk: No risks identified. jf3 Assistance ADL's: requires no assistance with activities of daily living. Abuse/DV Screen: The patient / caregiver reports he/she is: not in a situation that causes fear, pain or injury. Nutritional screening: No deficits noted. Advance Directives: Currently, there is no health care proxy. There is no active DNR order. home support is adequate. Assessment: 11:44 General: Appears in no apparent distress, comfortable, Behavior is cooperative. Pain: jf3 Location: anterior aspect of left upper chest Pain currently is 5 out of 10 on a pain scale. Pain does not radiate. Pain began 0200 today. Neurological: Level of Consciousness is awake, alert, Oriented to person, place, time. Cardiovascular: Capillary refill < 3 seconds Heart tones S1 S2 present Rhythm is sinus rhythm Chest pain is described as mild, is located in left chest wall radiates Does not radiate. Respiratory: Airway is patent Respiratory effort is even, unlabored, Respiratory pattern is regular, symmetrical, Breath sounds are clear bilaterally. Reports shortness of breath. GI: Abdomen is obese, Bowel sounds present X 4 quads. Abd is soft and non tender X 4 quads. Derm: Skin is normal. 12:45 General: Appears in no apparent distress, comfortable, Behavior is cooperative, pt jf3 resting supine on stretcher. respirations easy and unlabored. CP decreased to 2/10, provider aware. Call light in reach. Will continue to monitor. 13:45 General: Appears in no apparent distress, comfortable, Behavior is cooperative. jf3 General: resting supine on stretcher with mother at bedside. Pt states pain is now 1-2/10 after morphine. Pt states he does not want any more pain meds at this time, his pain is tolerable. Respirations easy and unlabored. Call light in reach. Will continue to monitor. Pain:. 15:00 General: Appears in no apparent distress, comfortable, Behavior is cooperative. Pain: jf3 Denies pain. Neurological: Level of Consciousness is awake, alert, Oriented to person, place, time. Cardiovascular: Capillary refill < 3 seconds Chest pain is denied. Respiratory: Airway is patent Respiratory effort is even, unlabored, Respiratory pattern is regular, symmetrical. Derm: Skin is pink, warm & dry. 16:00 General: Appears in no apparent distress, comfortable, Behavior is cooperative, pt jf3 sitting at side of bed. Mother at bedside. respirations easy an unlabored. Denies CP. Call light in reach. 16:00 General: Call placed to [facility] to give report, nurse unavailable at this time. jf3 16:52 General: Appears in no apparent distress, comfortable, Behavior is cooperative, Pt jf3 supine on stretcher with mother at bedside. Respirations easy and unlabored. Denies CP. Call placed to [facility], nurse unavailable. 18:00 General: Appears in no apparent distress, comfortable, Behavior is cooperative, Mother jf3 at bedside. Respirations easy and unlabored. Call light in reach. Will continue to monitor. 18:50 Adult Sepsis Screening: The patient does not have new or worsening altered mentation. jf3 Patient's respiratory rate is less than 22. Systolic blood pressure is greater than 100. Patient has a qSOFA score of 0- Negative Sepsis Screen. General: Appears in no apparent distress, comfortable, Behavior is cooperative. Pain: Denies pain. Neurological: Level of Consciousness is awake, alert, Oriented to person, place, time. Cardiovascular: Capillary refill < 3 seconds Chest pain is denied. Respiratory: Airway is patent Respiratory effort is even, unlabored, Respiratory pattern is regular, symmetrical. Derm: Skin is pink, warm & dry. Vital Signs: 11:31 BP 126 / 86; Pulse 74; Resp 20; Temp 98.0(TE); Pulse Ox 97% on R/A; Weight 128.82 kg; jml1 Height 5 ft. 8 in. (172.72 cm); Pain 5/10; 11:42 Pulse 74 MON; Pulse Ox 96% ; jf3 11:43 BP 136 / 94 (auto/); jf3 11:58 BP 133 / 92 (auto/); jf3 11:58 Pulse 70 MON; Pulse Ox 98% ; jf3 12:13 BP 155 / 86 (auto/); jf3 12:13 Pulse 76 MON; Pulse Ox 97% ; jf3 12:19 BP 131 / 87 (auto/); jf3 12:19 Pulse 82 MON; Pulse Ox 97% ; jf3 12:21 BP 131 / 87; Pulse 76; Pain 5/10; jf3 12:28 BP 117 / 82 (auto/); jf3 12:28 Pulse 96 MON; Pulse Ox 95% ; jf3 12:28 BP 122 / 82; Pulse 96; Pain 4/10; jf3 12:29 BP 122 / 82 (auto/); jf3 12:29 Pulse 90 MON; Pulse Ox 96% ; jf3 12:35 Pulse 84 MON; Pulse Ox 96% ; jf3 12:36 BP 104 / 63 (auto/); jf3 12:36 BP 104 / 63; Pulse 87; Pain 2/10; jf3 12:42 Pulse 72 MON; Pulse Ox 96% ; jf3 12:43 BP 103 / 66 (auto/); jf3 12:57 Pulse 60 MON; Pulse Ox 96% ; jf3 12:58 BP 111 / 77 (auto/); jf3 13:12 Pulse 62 MON; Pulse Ox 97% ; jf3 13:13 BP 119 / 77 (auto/); jf3 13:24 Pulse 86 MON; Pulse Ox 96% ; jf3 13:28 BP 131 / 73 (auto/); jf3 13:43 BP 128 / 64 (auto/); jf3 13:43 Pulse 68 MON; Pulse Ox 98% ; jf3 13:53 BP 118 / 69 (auto/); jf3 13:54 Pulse 62 MON; Pulse Ox 99% ; jf3 13:57 Pulse 66 MON; Pulse Ox 98% ; jf3 13:58 BP 127 / 73 (auto/); jf3 14:08 BP 114 / 67 (auto/); jf3 14:09 Pulse 62 MON; Pulse Ox 100% ; jf3 14:12 Pulse 66 MON; Pulse Ox 98% ; jf3 14:13 BP 123 / 76 (auto/); jf3 14:23 BP 108 / 58 (auto/); jf3 14:24 Pulse 60 MON; Pulse Ox 99% ; jf3 14:27 Pulse 70 MON; Pulse Ox 98% ; jf3 14:28 BP 127 / 81 (auto/); jf3 14:38 BP 105 / 58 (auto/); jf3 14:38 Pulse 60 MON; Pulse Ox 99% ; jf3 14:40 Pulse 60 MON; Pulse Ox 98% ; jf3 14:42 Pulse 70 MON; Pulse Ox 98% ; jf3 14:43 BP 161 / 93 (auto/); jf3 15:01 BP 119 / 69 (auto/); jf3 15:08 BP 123 / 70 (auto/); jf3 15:08 Pulse 60 MON; Pulse Ox 96% ; jf3 15:23 BP 119 / 71 (auto/); jf3 15:23 Pulse 64 MON; Pulse Ox 95% ; jf3 16:54 Pulse 74 MON; Pulse Ox 97% ; jf3 16:56 BP 139 / 89 (auto/); jf3 18:40 Pulse 66 MON; Pulse Ox 98% ; jf3 18:41 BP 148 / 88 (auto/); jf3 18:53 BP 134 / 91; Pulse 75; Resp 18; Temp 97(O); Pulse Ox 98% on 2 lpm NC; Pain 0/10; jf3 11:31 Body Mass Index 43.18 (128.82 kg, 172.72 cm) jml1 12:21 pre NTG jf3 Vitals: 11:37 Log In Time N/A - ambulance arrival. jf3 ED Course: 11:21 Patient visited by Alise Mary, Grounds Maintenance Manager. deg 11:21 Patient moved to Waiting deg 11:29 Patient moved to 19 deg 11:32 Patient visited by Miguel Russell. jml1 11:34 Yoshi Medina MD is Attending Physician. ml 11:34 Patient visited by Yoshi Medina MD. ml 11:35 Triage Initiated jf3 11:42 The patient / caregiver is instructed regarding the plan of care and ED course. Cardiac jf3 monitor on. Pulse ox on. Sitter at bedside. NIBP on. 11:42 Maintain field IV. Dressing intact. Good blood return noted. Site clean & dry. Gauge & jf3 site: 18g right AC. No procedures done that require assistance. 11:45 Patient visited by Miguel Russell. jml1 11:45 EKG done. (by ED staff). Reviewed by Yoshi Medina MD. jml1 11:52 Patient visited by Kb Dejesus,ANNE. jf3 12:07 Liver Profile Sent. jf3 12:07 B-Type Natiuretic Peptide Sent. jf3 12:07 Basic Metabolic Profile Sent. jf3 12:07 CBC with Diff Sent. jf3 12:07 Cardiac Injury Profile Sent. jf3 12:07 D-Dimer Quant Sent. jf3 12:07 Partial Thromboplastin Time Sent. jf3 12:07 Prothrombin Time Profile\E\INR Sent. jf3 12:08 Troponin Sent. jf3 12:24 Patient visited by Kb Dejesus,RN. jf3 12:33 Patient visited by Kb Dejesus,ANNE. jf3 12:39 portable chest Returned. EDMS 12:51 O2 via nasal cannula \T\ 2L/min. jf3 13:48 Patient visited by Kb Dejesus RN. jf3 14:42 CT Chest Angio R/O PE Returned. EDMS 15:33 Patient visited by Kb Dejesus RN. jf3 15:40 [facility] Payment Agreement was scanned into [employer] and attached to record. gjb 16:33 T-Sheet-- Draft Copy was scanned into [employer] and attached to record. klr 16:53 Patient visited by Kb Dejesus RN. jf3 20:54 EKG-ADULT Returned. EDMS 02 11:55 ECG/EKG was scanned into [employer] and attached to record. gb 11:55 Trend VS was scanned into [employer] and attached to record. gb 11:56 Rhythm Strip was scanned into [employer] and attached to record. gb 11:56 Radiology Report was scanned into [employer] and attached to record. gb Administered Medications: 11/10 12:19 Drug: NS 0.9% 500 ml [sodium chloride 0.9 % injection solution] Route: IV; Rate: 100 jf3 mL/hr; Site: right antecubital; 12:20 Drug: Aspirin 243 mg [aspirin 81 mg chewable tablet (3 tabs)] Route: PO; jf3 12:21 Drug: Nitrostat 0.4 mg [Nitrostat 0.4 mg sublingual tablet (1 tabs)] Route: Sublingual; jf3 12:28 Follow up: BP 122 / 82; Pulse 96 bpm; Pain 4/10 Adult; Response: Pain is decreased jf3 12:30 Drug: Nitrostat 0.4 mg [Nitrostat 0.4 mg sublingual tablet (1 tabs)] Route: Sublingual; jf3 12:36 Follow up: BP 104 / 63; Pulse 87 bpm; Pain 2/10 Adult; Response: Pain is decreased jf3 13:18 Drug: morphine 2 mg [morphine 2 mg/mL intravenous cartridge (1 mL)] Route: IVP; Site: jf3 right antecubital; 13:46 Follow up: Response: Pain is decreased jf3 14:11 Drug: Plavix - Clopidogrel 300 mg [clopidogrel 75 mg tablet (4 tabs)] Route: PO; jf3 18:54 Follow up: Response: No Adverse Reaction jf3 14:12 Drug: morphine 2 mg [morphine 2 mg/mL intravenous cartridge (1 mL)] Route: IVP; Site: 3 right antecubital; Attachments: 11:55 Trend VS gb 11:56 Rhythm Strip gb Order Results: Lab Order: B-Type Natiuretic Peptide; SPEC'11/10/16 12:04 Test: BRAIN NATRIURETIC PEPTIDE; Value: < 5.0; Range: <100; Units: PG/ML; Status: F Lab Order: Basic Metabolic Profile; SPEC'11/10/16 12:04 Test: GLUCOSE, FASTING; Value: 91; Range: 70-105; Units: MG/DL; Status: F Test: BLOOD UREA NITROGEN; Value: 14; Range: 7-18; Units: MG/DL; Status: F Test: CREATININE FOR GFR; Value: 1.37; Range: 0.70-1.30; Abnormal: Above high normal; Units: MG/DL; Status: F Test: GLOMERULAR FILTRATION RATE; Value: 58.8; Range: >60; Abnormal: Below low normal; Status: F Test: SODIUM LEVEL; Value: 138; Range: 136-145; Units: MEQ/L; Status: F Test: POTASSIUM SERUM; Value: 4.1; Range: 3.5-5.1; Units: MEQ/L; Status: F Test: CHLORIDE LEVEL; Value: 102; Range: 98-107; Units: MEQ/L; Status: F Test: CARBON DIOXIDE LEVEL; Value: 30; Range: 21-32; Units: MEQ/L; Status: F Test: ANION GAP; Value: 6; Range: 8-16; Abnormal: Below low normal; Units: MEQ/L; Status: F Test: CALCIUM LEVEL; Value: 8.8; Range: 8.5-10.1; Units: MG/DL; Status: F Test Note: ; Units are mL/min/1.73 m2 Chronic Kidney Disease Staging per NKF: Stage I & II GFR >=60 Normal to Mildly Decreased Stage III GFR 30-59 Moderately Decreased Stage IV GFR 15-29 Severely Decreased Stage V GFR <15 Very Little GFR Left ESRD GFR <15 on SHEEP KILLER Lab Order: CBC with Diff; SPEC'11/10/16 12:04 Test: WHITE BLOOD COUNT; Value: 6.7; Range: 4.0-10.0; Units: K/mm3; Status: F Test: RED BLOOD COUNT; Value: 5.06; Range: 4.30-6.10; Units: M/mm3; Status: F Test: HEMOGLOBIN; Value: 15.6; Range: 14.0-18.0; Units: g/dl; Status: F Test: HEMATOCRIT; Value: 47.0; Range: 42.0-52.0; Units: %; Status: F Test: MEAN CORPUSCULAR VOLUME; Value: 93.0; Range: 80.0-96.0; Units: fl; Status: F Test: MEAN CORPUSCULAR HEMOGLOBIN; Value: 30.9; Range: 27.0-33.0; Units: pg; Status: F Test: MEAN CORPUSCULAR HGB CONC; Value: 33.3; Range: 32.0-36.5; Units: g/dl; Status: F Test: RED CELL DISTRIBUTION WIDTH; Value: 13.4; Range: 11.5-14.5; Units: %; Status: F Test: PLATELET COUNT, AUTOMATED; Value: 192; Range: 150-450; Units: k/mm3; Status: F Test: NEUTROPHILS %; Value: 63.7; Range: 36.0-66.0; Units: %; Status: F Test: LYMPH %; Value: 23.1; Range: 24.0-44.0; Abnormal: Below low normal; Units: %; Status: F Test: MONO %; Value: 9.5; Range: 0.0-5.0; Abnormal: Above high normal; Units: %; Status: F Test: EOS %; Value: 1.7; Range: 0.0-3.0; Units: %; Status: F Test: BASO %; Value: 0.3; Range: 0.0-1.0; Units: %; Status: F Test: LARGE UNSTAINED CELL %; Value: 1.7; Range: 0.0-4.0; Units: %; Status: F Test: NEUTROPHILS #; Value: 4.3; Range: 1.8-7.7; Units: K/mm3; Status: F Test: LYMPH #; Value: 1.7; Range: 1.5-4.5; Units: K/mm3; Status: F Test: MONO #; Value: 0.6; Range: 0.0-0.8; Units: K/mm3; Status: F Test: EOS #; Value: 0.1; Range: 0.0-0.50; Units: K/mm3; Status: F Test: BASO #; Value: 0.0; Range: 0.0-0.2; Units: K/mm3; Status: F Test: LARGE UNSTAINED CELL #; Value: 0.1; Range: 0.0-0.4; Units: K/mm3; Status: F Lab Order: Cardiac Injury Profile; [facility] 11/10/16 12:04 Test: CPK CREATINE PHOSPHOKINASE; Value: 270; Range: 39-308; Units: U/L; Status: F Test: CK-MB VALUE MASS; Value: 2.0; Range: 0.0-3.6; Units: NG/ML; Status: F Test: MB/CK RELATIVE INDEX; Value: 0.74; Range: < OR =4; Status: F Test Note: ; DIAGNOSIS CRITERIA MMB ng/ml Relative Index (RI) NON-AMI < or = 5 N/A PAVON ZONE > 5 < or = 4 AMI > 5 > 4 Lab Order: D-Dimer Quant; [facility] 11/10/16 12:04 Test: D-DIMER QUANT; Value: < 270.0; Range: <500; Units: ng/ml; Status: F Lab Order: Partial Thromboplastin Time; [facility] 11/10/16 12:04 Test: PARTIAL THROMBOPLASTIN TIME; Value: 29.0; Range: 26.6-37.1; Units: SECONDS; Status: F Lab Order: Prothrombin Time Profile\E\INR; [facility] 11/10/16 12:04 Test: PROTHROMBIN TIME; Value: 13.7; Range: 12.3-14.5; Units: SECONDS; Status: F Test: INR; Value: 1.04; Status: F Test Note: ; THERAPUTIC HUMAN INR VALUES INDICATIONS NORMAL RANGES PROPHYLAXIS/TREATMENT OF: VENOUS THROMBOSIS 2.0-3.0 PULMONARY EMBOLISM 2.0-3.0 PREVENTION OF SYSTEMIC EMBOLISM FROM: TISSUE HEART VALVES 2.0-3.0 ACUTE MYOCARDIAL INFARCTION 2.0-3.0 VALVULAR HEART DISEASE 2.0-3.0 ATRIAL FIBRILLATION 2.0-3.0 MECHANICAL VALVES(HIGH RISK) 2.5-3.5 RECURRENT MYOCARDIAL INFARCTION 2.5-3.5 Lab Order: Troponin; SPEC'M 11/10/16 12:04 Test: TROPONIN I; Value: < 0.02; Range: < 0.10; Units: NG/ML; Status: F Test Note: ; Troponin I Reference Interval for Siemens [place] LOCI: 99th Percentile= 0.00-0.045 ng/ml Risk Stratification: <= 0.10 ng/ml Decreased Risk for Adverse Clinical Events. 0.10-1.50 ng/ml Increased Risk for Adverse Clinical Events. Evaluation of additional criterion and/or repeat testing in 2-6 hours is suggested to rule out myocardial damage. >= 1.50 ng/ml Indicative of Myocardial Injury. Lab Order: Liver Profile; SPEC'M 11/10/16 12:04 Test: AST/SGOT; Value: 29; Range: 15-37; Units: U/L; Status: F Test: ALT/SGPT; Value: 40; Range: 12-78; Units: U/L; Status: F Test: ALKALINE PHOSPHATASE; Value: 76; Range: 45-117; Units: U/L; Status: F Test: BILIRUBIN,TOTAL; Value: 0.4; Range: 0.2-1.0; Units: MG/DL; Status: F Test: BILIRUBIN,DIRECT; Value: < 0.1; Range: 0.0-0.2; Units: MG/DL; Status: F Test: TOTAL PROTEIN; Value: 7.5; Range: 6.4-8.2; Units: GM/DL; Status: F Test: ALBUMIN; Value: 3.9; Range: 3.2-5.2; Units: GM/DL; Status: F Test: ALBUMIN/GLOBULIN RATIO; Value: 1.08; Range: 1.00-1.93; Status: F Radiology Order: EKG-ADULT Test: EKG-ADULT REASON FOR EXAMINATION: Chest Pain; Stationary ECG Study; [facility] - ED; ; Test Date: 2016-11-10; Pat Name: RINKU AN Department:; Room: -; Gender: M 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: KULDEEP; : 1965 Requested By: Yoshi Medina; Order Number: [id number] Reading MD: Purvi Cox; Measurements; Intervals [place]; Rate: 70 P: -21; OR: 113 QRS: -26; QRSD: 85 T: 29; QT: 370; QTc: 400; Interpretive Statements; SINUS RHYTHM WITH SINUS ARRHYTHMIA WITH SHORT OR INTERVAL; BORDERLINE LEFT AXIS DEVIATION; LOW QRS VOLTAGE IN PRECORDIAL LEADS; INCREASED RATE 11/05/16; Electronically Signed On 11-10-2016 20:05:53 EST by Purvi Cox; Radiology Order: portable chest Test: portable chest REASON FOR EXAMINATION: chst pain; Chest one-view; ; HISTORY: Chest pain; ; Comparison: 11/05/2016; ; The lungs are clear. The heart is normal in size. The pulmonary vasculature is; normal in appearance.; ; Impression: No acute disease.; ; ; Signed by; Mitch Blum MD 11/10/2016 12:19 P; Radiology Order: CT Chest Angio R/O PE Test: CT Chest Angio R/O PE REASON FOR EXAMINATION: Chest Pain; CT ANGIOGRAM OF THE CHEST: 11/10/2016.; ; Comparison portable chest 11/10/2016, 11/05/2016.; ; Clinical history: Chest pain, dyspnea.; ; Technique. The patient received a bolus of 75 mL Isovue 370 with our pulmonary; CT angiogram protocol with coronal and sagittal thick slab reconstructions with; MIP reformatting.; ; Findings: Lung bases show dependent atelectatic change mid and posterior lower; lung zones. There is no pleural effusion, acute infiltrate, parenchymal nodule; or mass. Heart not grossly enlarged. There is no pericardial thickening or; effusion. I see no hiatal hernia. The aorta is without aneurysm or dissection.; The main, right and left pulmonary arteries and the mediastinum are without; filling defect. The lobar, segmental pulmonary arteries and visible subsegmental; arteries are without airspace opacification. There is no vessel cutoff or; definite filling defect that would suggest pulmonary embolism in the lobar and; segmental arteries. Those visible subsegmental arteries are intact. There is no; pathologic sized mediastinal or hilar adenopathy and no axillary or; supraclavicular mass. The bone windows show the sternum, manubrium, clavicles,; humeral heads and scapula without any acute fracture. Spine was grossly intact.; Visualized ribs without acute finding. Some respiratory motion limits evaluation; of the upper abdomen and the chest that said adrenal glands are grossly normal.; Upper poles of the kidneys, spleen and pancreas seen were unremarkable. Portion; of the gallbladder is present and intact without calcified stone.; ; Impression:; ; 1. No compelling CT evidence for pulmonary thromboembolism in the central; pulmonary arteries, lobar and segmental arteries as well as those visible; subsegmental arteries.; ; 2. There is no pleural effusion, definite infiltrate, pulmonary nodule or; parenchymal mass. Minor dependent atelectatic changes are seen. There is some; motion artifact limiting this evaluation.; ; 3. No hiatal hernia. Upper abdomen grossly intact. No compression deformity or; focal lesion in the spine.; ; ; Signed by; Brannon Kim MD 11/10/2016 04:25 P; Outcome: 11/10 14:11 ER care complete, transfer ordered by Provider. 17:06 Admission hand-off: Report called to Antoinette Leiva RN \T\ [facility]. [facility] 18:51 Discharge Assessment: patient administered narcotics - yes. Patient was admitted to the [address] or transferred to another facility. The following High Risk Discharge criteria are identified: None. Transferred to [facility]. by EMS ground [facility] ambulance report to accompanying personnel Jeronimo Muñiz Shingle Grader, Transfer form completed. x-rays sent w/ patient. Condition: good. CT Study completed. Property :Personal belongings accompany Pt. 18:57 Patient left the ED. [facility] Signatures: Dispatcher [employer] EDMS Yoshi Medina MD MD ml Murray, Denise, Grounds Maintenance Manager Unit deg Evon Valverde, Reg Reg Miguel Lopez jml1 Kb Dejesus RN RN brady3 Lyssa Carpenter Kathie klr Corrections: (The following items were deleted from the chart) 13:47 13:45 General: resting supine on stretcher with mother at bedside. Pt states pain is jf3 now 1-2/10 after morphine. Respirations easy and unlabored. Call light in reach. Will continue to monitor. [facility] Chart Complete MTDD
== END 2016-11-10 18:57 | disposition short-term general hospital (02) ==
LOC: M ED 11:20
DX: R07.9 Chest pain, unspecified (principal); F32.9 Major depressive disorder, single episode, unspecified; K21.9 Gastro-esophageal reflux disease without esophagitis; E78.00 Pure hypercholesterolemia, unspecified; I10 Essential (primary) hypertension; E03.9 Hypothyroidism, unspecified; F41.0 Panic disorder [episodic paroxysmal anxiety]; M54.30 Sciatica, unspecified side; Z87.891 Personal history of nicotine dependence; Z79.82 Long term (current) use of aspirin; Z79.899 Other long term (current) drug therapy; Z88.5 Allergy status to narcotic agent
CPT/HCPCS: 71010; 71275; 80048; 80076; 82550; 82553; 83880; 85025; 85379; 85610; 85730; 93005; 93041; 96374; 96376; 99285; Q9967

== ENCOUNTER → 2016-12-03 | Outpatient (REF) | payer OTHER ==
[2016-12-03 14:00] LABS: BASO % 0.6 % (0.0-1.0); EOS # 0.2 K/mm3 (0.0-0.50); EOS % 3.2 % (0.0-3.0); LARGE UNSTAINED CELL # 0.2 K/mm3 (0.0-0.4); LARGE UNSTAINED CELL % 3.3 % (0.0-4.0); LYMPH # 1.1 K/mm3 (1.5-4.5); LYMPH % 17.9 % (24.0-44.0); MEAN CORPUSCULAR HEMOGLOBIN 30.1 pg (27.0-33.0); MEAN CORPUSCULAR HGB CONC 31.9 g/dl (32.0-36.5); MEAN CORPUSCULAR VOLUME 94.5 fl (80.0-96.0); MONO # 0.9 K/mm3 (0.0-0.8); MONO % 14.1 % (0.0-5.0); NEUTROPHILS # 3.8 K/mm3 (1.8-7.7); PLATELET COUNT, AUTOMATED 389 k/mm3 (150-450); WHITE BLOOD COUNT 6.2 K/mm3 (4.0-10.0)
[2016-12-03 14:15] LABS: ALBUMIN 3.9 GM/DL (3.2-5.2); ALBUMIN/GLOBULIN RATIO 1.3 (1.00-1.93); BILIRUBIN,TOTAL 0.4 MG/DL (0.2-1.0); CALCIUM LEVEL 8.9 MG/DL (8.5-10.1); CREATININE FOR GFR 1.35 MG/DL (0.70-1.30); FREE T4 1.16 NG/DL (0.76-1.46); GLOMERULAR FILTRATION RATE 59.8 (>60); POTASSIUM SERUM 4.4 MEQ/L (3.5-5.1); TOTAL PROTEIN 6.9 GM/DL (6.4-8.2)
== END ==
LOC: M SFHCPLAZ 11:23
PROVIDERS: ATTEND Nurse Practitioner Family
DX: D50.0 Iron deficiency anemia secondary to blood loss (chronic) (principal); E78.5 Hyperlipidemia, unspecified; E03.9 Hypothyroidism, unspecified

== ENCOUNTER 2017-01-01 08:47 | Outpatient (RCR) | payer OTHER | END 2017-01-02 | LOC: M CR 08:47 | PROVIDERS: ATTEND Internal Medicine Cardiovascular Disease | DX: Z51.89 Encounter for other specified aftercare (principal); Z95.1 Presence of aortocoronary bypass graft ==

== ENCOUNTER 2017-01-11 08:54 | Emergency (ER) | payer MEDICAID, OTHER ==
[~2017-01-11 08:54] MED LIST changes: -COLA100C PO; +COLA100C3 PO; +GABA-282 PO; -GABA300C3 PO
[2017-01-11] MEDS ORDERED: OXYC1TAB23 PO (09:08)
[2017-01-11] MEDS ORDERED: RANI15TA PO (09:08)
[2017-01-11] MEDS ORDERED: ASPI32ECTA PO (09:08)
[2017-01-11] MEDS ORDERED: METO-346 PO (09:08)
[2017-01-11 10:01] LABS: BASO % 0.6 % (0.0-1.0); EOS # 0.1 K/mm3 (0.0-0.50); EOS % 1.7 % (0.0-3.0); LARGE UNSTAINED CELL # 0.1 K/mm3 (0.0-0.4); LARGE UNSTAINED CELL % 1.4 % (0.0-4.0); LYMPH # 1.4 K/mm3 (1.5-4.5); LYMPH % 18.5 % (24.0-44.0); MEAN CORPUSCULAR HEMOGLOBIN 29.8 pg (27.0-33.0); MEAN CORPUSCULAR HGB CONC 31.9 g/dl (32.0-36.5); MEAN CORPUSCULAR VOLUME 93.3 fl (80.0-96.0); MONO # 0.7 K/mm3 (0.0-0.8); MONO % 9.6 % (0.0-5.0); NEUTROPHILS # 4.7 K/mm3 (1.8-7.7); NEUTROPHILS % 68.2 % (36.0-66.0); PLATELET COUNT, AUTOMATED 232 k/mm3 (150-450); RED CELL DISTRIBUTION WIDTH 13.8 % (11.5-14.5); WHITE BLOOD COUNT 6.9 K/mm3 (4.0-10.0)
[2017-01-11 10:08] LABS: ALBUMIN 3.8 GM/DL (3.2-5.2); ALBUMIN/GLOBULIN RATIO 1.12 (1.00-1.93); ALKALINE PHOSPHATASE 94 U/L (45-117); ALT/SGPT 31 U/L (12-78); ANION GAP 7 MEQ/L (8-16); AST/SGOT 22 U/L (15-37); BILIRUBIN,DIRECT < 0.1 MG/DL (0.0-0.2); BILIRUBIN,TOTAL 0.3 MG/DL (0.2-1.0); BLOOD UREA NITROGEN 23 MG/DL (7-18); CALCIUM LEVEL 8.4 MG/DL (8.5-10.1); CARBON DIOXIDE LEVEL 25 MEQ/L (21-32); CHLORIDE LEVEL 106 MEQ/L (98-107); CREATININE FOR GFR 1.09 MG/DL (0.70-1.30); GLOMERULAR FILTRATION RATE > 60.0 (>60); GLUCOSE, FASTING 112 MG/DL (70-105); POTASSIUM SERUM 4.4 MEQ/L (3.5-5.1); SODIUM LEVEL 138 MEQ/L (136-145); TOTAL PROTEIN 7.2 GM/DL (6.4-8.2)
--- NOTE | 2017-01-11 10:30 | REP ---
AP PORTABLE CHEST: 01/11/2017. Comparison 11/10/2016, 11/05/2016. CTA chest 11/10/2016. Clinical history: Chest pain. Findings: There has been interval sternotomy. A few mediastinal clips are seen. Some minor lateral pleural thickening bilaterally. CP angles are sharply defined without effusion. No dense consolidation. Heart size borderline. The aorta is mildly tortuous without aneurysm. Airway midline. No pulmonary edema or dense consolidation. No pneumothorax or pneumomediastinum. Impression: 1. Interval sternotomy from the November studies with borderline heart size for portable technique. No pulmonary edema, definite effusion or acute infiltrate. There is bilateral lateral pleural thickening noted. 2. No pneumothorax or pneumomediastinum. No widening of the mediastinum. Signed by Brannon Kim MD 01/11/2017 10:56 A
[2017-01-11 14:38] VITALS: BP 147/99
--- NOTE | 2017-01-11 21:08 | ECGEPIP ---
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
--- NOTE | 2017-01-11 21:16 | ECGEPIP ---
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
== END 2017-01-11 14:39 | disposition home or self-care (01) ==
LOC: M ED 09:55
DX: R07.89 Other chest pain (principal); I25.10 Atherosclerotic heart disease of native coronary artery without angina pectoris; G47.33 Obstructive sleep apnea (adult) (pediatric); I10 Essential (primary) hypertension; E78.5 Hyperlipidemia, unspecified; F32.9 Major depressive disorder, single episode, unspecified; F41.9 Anxiety disorder, unspecified; F17.210 Nicotine dependence, cigarettes, uncomplicated; Z88.5 Allergy status to narcotic agent; Z79.899 Other long term (current) drug therapy; Z79.1 Long term (current) use of non-steroidal anti-inflammatories (NSAID); Z79.82 Long term (current) use of aspirin; K21.9 Gastro-esophageal reflux disease without esophagitis

== ENCOUNTER 2017-01-19 12:43 | Emergency (ER) | payer OTHER ==
[~2017-01-19] VITALS: Ht 172.7 cm; Wt 122.5 kg
[~2017-01-19 12:43] MED LIST changes: +ASPI32ECTA PO; +METO-346 PO; +OXYC1TAB23 PO; +RANI15TA PO
[2017-01-19] MEDS ORDERED: FLUT1SPR2 (12:56)
[2017-01-19] MEDS ORDERED: ALBU17IN (12:56)
--- NOTE | 2017-01-19 14:40 | REP ---
Duplex extremity venous ultrasound: Right lower extremity History: Question thrombophlebitis. Findings: The deep veins are anechoic and fully compressible from the groin to the popliteal fossa in the right lower extremity. Color flow imaging is homogeneous. Spectral Doppler interrogation demonstrates intact respiratory variation in flow and normal manual augmentation of flow. There is no evidence of deep vein thrombosis. Scanning in the area of patient's pain in the medial aspect of the proximal calf in the region where by history a vein harvest for cardiac bypass was performed. Soft tissue edema is seen here but no fluid collection or other abnormality. Impression: Negative right lower extremity duplex venous ultrasound. No evidence of deep vein thrombosis. Soft tissue edema is seen in the area the patient's pain in proximal calf. No evidence of abscess or mass or other abnormality. Signed by Timothy Barragan MD 01/19/2017 06:27 P
[2017-01-19 15:13] VITALS: BP 116/85
== END 2017-01-19 15:26 | disposition home or self-care (01) ==
LOC: M ED 14:09
DX: M79.2 Neuralgia and neuritis, unspecified (principal); Z87.891 Personal history of nicotine dependence; Z95.1 Presence of aortocoronary bypass graft; R51 Headache; E78.00 Pure hypercholesterolemia, unspecified; I10 Essential (primary) hypertension; G47.30 Sleep apnea, unspecified; Z87.442 Personal history of urinary calculi; E03.9 Hypothyroidism, unspecified; K76.9 Liver disease, unspecified; M54.9 Dorsalgia, unspecified; F41.9 Anxiety disorder, unspecified; F32.9 Major depressive disorder, single episode, unspecified; Z79.82 Long term (current) use of aspirin; Z79.899 Other long term (current) drug therapy; Z88.5 Allergy status to narcotic agent

== ENCOUNTER 2017-01-30 12:51 | Outpatient (RCR) | payer OTHER ==
[~2017-01-30 12:51] MED LIST changes: +ALBU17IN; +FLUT1SPR2
== END 2017-02-01 ==
LOC: M CR 12:51
PROVIDERS: ATTEND Internal Medicine Cardiovascular Disease
DX: Z51.89 Encounter for other specified aftercare (principal); Z95.1 Presence of aortocoronary bypass graft

== ENCOUNTER 2017-02-11 10:30 | Outpatient (RCR) | payer OTHER ==
[2017-02-13] MEDS ORDERED: ATOR40TA PO (10:16)
[2017-02-13] MEDS ORDERED: FISH1000 PO (11:07)
[2017-02-13] MEDS ORDERED: AMLO25TA PO (11:07)
== END 2017-03-04 ==
LOC: M CR 10:30
PROVIDERS: ATTEND Internal Medicine Cardiovascular Disease
DX: Z51.89 Encounter for other specified aftercare (principal); Z95.1 Presence of aortocoronary bypass graft

== ENCOUNTER 2017-02-13 09:59 | Emergency (ER) | payer OTHER ==
[2017-02-13] MEDS ORDERED: ATOR40TA PO (10:16)
[2017-02-13] MEDS ORDERED: MORPHINE 2 MG/ML 1ML SYRINGE IV ONE (10:45)
[2017-02-13 10:55] LABS: MEAN CORPUSCULAR HEMOGLOBIN 30.2 pg (27.0-33.0); MEAN CORPUSCULAR HGB CONC 32.3 g/dl (32.0-36.5); MEAN CORPUSCULAR VOLUME 93.6 fl (80.0-96.0); RED CELL DISTRIBUTION WIDTH 14.1 % (11.5-14.5); WHITE BLOOD COUNT 8.1 K/mm3 (4.0-10.0)
[2017-02-13] MEDS ORDERED: AMLO25TA PO (11:07)
[2017-02-13] MEDS ORDERED: FISH1000 PO (11:07)
[2017-02-13 11:08] LABS: ANION GAP 4 MEQ/L (8-16); BLOOD UREA NITROGEN 22 MG/DL (7-18); CALCIUM LEVEL 8.6 MG/DL (8.5-10.1); CARBON DIOXIDE LEVEL 31 MEQ/L (21-32); CHLORIDE LEVEL 105 MEQ/L (98-107); CREATININE FOR GFR 1.22 MG/DL (0.70-1.30); GLOMERULAR FILTRATION RATE > 60.0 (>60); GLUCOSE, FASTING 94 MG/DL (70-105); POTASSIUM SERUM 4.4 MEQ/L (3.5-5.1); SODIUM LEVEL 140 MEQ/L (136-145)
--- NOTE | 2017-02-13 11:22 | REP ---
EMERGENCY NONCONTRAST HEAD CT. HISTORY: Headache. Patient on anticoagulant medication. No comparison brain CT. CT FINDINGS: Preliminary digital lateral acid patroller radiograph is unremarkable. Bone window settings demonstrate an intact bony calvarium. No bony destructive lesion is seen. Visualized paranasal sinuses are clear. No intraorbital abnormality is seen. On soft tissue window settings, the lateral, third, and fourth ventricles are normal in size and position. Romeo-white differentiation pattern is normal above below the tentorium. There is no evidence of intracranial hemorrhage. No infarct, extra-axial fluid collection or midline shift is seen. IMPRESSION: Normal noncontrast head CT. Signed by Timothy Barragan MD 02/13/2017 12:57 P
[2017-02-13] MEDS ORDERED: NS 500 ML IV ONE (11:45)
[2017-02-13 12:55] VITALS: BP 112/73
== END 2017-02-13 13:03 | disposition home or self-care (01) ==
LOC: M ED 10:44
DX: R51 Headache (principal); I25.10 Atherosclerotic heart disease of native coronary artery without angina pectoris; I25.2 Old myocardial infarction; F32.9 Major depressive disorder, single episode, unspecified; F41.9 Anxiety disorder, unspecified; F17.200 Nicotine dependence, unspecified, uncomplicated; Z79.82 Long term (current) use of aspirin; Z79.899 Other long term (current) drug therapy; Z88.5 Allergy status to narcotic agent

== ENCOUNTER → 2017-02-25 | Outpatient (CLI) | payer OTHER, MEDICAID ==
[~2017-02-25] MED LIST changes: +AMLO25TA PO; +ATOR40TA PO; +FISH1000 PO
== END ==
LOC: M LAB 11:28
PROVIDERS: ATTEND Podiatrist Foot & Ankle Surgery
DX: M10.079 Idiopathic gout, unspecified ankle and foot (principal)

== ENCOUNTER 2017-03-05 08:59 | Outpatient (RCR) | payer OTHER ==
[~2017-03-05 08:59] MED LIST changes: -ALBU17IN; +ALBU17IN INH; +ASPI325T24 PO; -ASPI32ECTA PO; -ATOR40TA PO; +ATOR40TA75 PO; -COLA100C3 PO; +COLA100C5 PO; -DOCU100C PO; +DOCU100C16 PO; +IBUP-1022 PO; -IBUP600T26 PO; -NAPR500T2 PO; +NAPR500T3 PO; +PERC5TAB12 PO; -PERC5TAB6 PO
[2017-08-03] MEDS ORDERED: OMEP40CA2 PO (17:10)
== END 2017-04-03 ==
LOC: M CR 08:59
PROVIDERS: ATTEND Internal Medicine Cardiovascular Disease
DX: Z51.89 Encounter for other specified aftercare (principal); Z95.1 Presence of aortocoronary bypass graft

== ENCOUNTER → 2017-03-26 | Outpatient (REF) | payer OTHER ==
[~2017-03-26] MED LIST changes: +ALBU17IN; -ALBU17IN INH; -ASPI325T24 PO; +ASPI32ECTA PO; +ATOR40TA PO; -ATOR40TA75 PO; +COLA100C3 PO; -COLA100C5 PO; +DOCU100C PO; -DOCU100C16 PO; -IBUP-1022 PO; +IBUP600T26 PO; +NAPR500T2 PO; -NAPR500T3 PO; -PERC5TAB12 PO; +PERC5TAB6 PO
[2017-03-26 12:21] LABS: ALBUMIN 3.5 GM/DL (3.2-5.2); ALBUMIN/GLOBULIN RATIO 1.09 (1.00-1.93); ALKALINE PHOSPHATASE 94 U/L (45-117); ALT/SGPT 26 U/L (12-78); ANION GAP 8 MEQ/L (8-16); AST/SGOT 16 U/L (15-37); BILIRUBIN,TOTAL 0.5 MG/DL (0.2-1.0); BLOOD UREA NITROGEN 17 MG/DL (7-18); CALCIUM LEVEL 8.7 MG/DL (8.5-10.1); CARBON DIOXIDE LEVEL 31 MEQ/L (21-32); CHLORIDE LEVEL 102 MEQ/L (98-107); CREATININE FOR GFR 1.32 MG/DL (0.70-1.30); GLOMERULAR FILTRATION RATE > 60.0 (>60); GLUCOSE, FASTING 111 MG/DL (70-105); POTASSIUM SERUM 4.4 MEQ/L (3.5-5.1); SODIUM LEVEL 141 MEQ/L (136-145); TOTAL PROTEIN 6.7 GM/DL (6.4-8.2)
== END ==
LOC: M SFHCPLAZ 08:10
PROVIDERS: ATTEND Nurse Practitioner Family
DX: K76.89 Other specified diseases of liver (principal); I10 Essential (primary) hypertension

== ENCOUNTER → 2017-04-08 | Outpatient (REF) | payer OTHER ==
[~2017-04-08] MED LIST changes: -ALBU17IN; +ALBU17IN INH; +ASPI325T24 PO; -ASPI32ECTA PO; -ATOR40TA PO; +ATOR40TA75 PO; +CLEO300C2 PO; -COLA100C3 PO; +COLA100C5 PO; +DIVA500T3 PO; -DOCU100C PO; +DOCU100C16 PO; +DULC5TAB PO; +GABA600T PO; +HYDROCODONE APAP PO; +IBUP-1022 PO; -IBUP600T26 PO; +IBUP80TA PO; +LEVO88TA3 PO; +METO1TAB87 PO; -NAPR500T2 PO; +NAPR500T3 PO; +PANT40TA2 PO; +PERC5TAB12 PO; -PERC5TAB6 PO; +PERCOCET PO; +SYNT75TA PO; +TIZA4CAP3 PO; +TRIH2TAB3 PO
[2017-04-08 11:40] LABS: ALBUMIN 3.3 GM/DL (3.2-5.2); ALBUMIN/GLOBULIN RATIO 1.06 (1.00-1.93); ALKALINE PHOSPHATASE 71 U/L (45-117); ALT/SGPT 39 U/L (12-78); ANION GAP 8 MEQ/L (8-16); AST/SGOT 39 U/L (15-37); BILIRUBIN,TOTAL 0.3 MG/DL (0.2-1.0); BLOOD UREA NITROGEN 16 MG/DL (7-18); CARBON DIOXIDE LEVEL 30 MEQ/L (21-32); CHLORIDE LEVEL 104 MEQ/L (98-107); CHOLESTEROL LEVEL 136 MG/DL (<200); CREATININE FOR GFR 1.24 MG/DL (0.70-1.30); GLOMERULAR FILTRATION RATE > 60.0 (>60); GLUCOSE, FASTING 110 MG/DL (70-105); POTASSIUM SERUM 4.2 MEQ/L (3.5-5.1); SODIUM LEVEL 142 MEQ/L (136-145); TOTAL PROTEIN 6.4 GM/DL (6.4-8.2); TRIGLYCERIDES LEVEL 130 MG/DL (<150)
== END ==
LOC: M SFHCPLAZ 08:23
PROVIDERS: ATTEND Nurse Practitioner Family
DX: I10 Essential (primary) hypertension (principal); E03.9 Hypothyroidism, unspecified; E78.5 Hyperlipidemia, unspecified

== ENCOUNTER → 2017-04-14 | Outpatient (CLI) | payer OTHER ==
--- NOTE | 2017-04-14 23:45 | REP ---
Clinical: Nodule. Technique: Real time frank scale and color evaluation using linear high frequency transducer. Comparison: 03/30/2015. Findings: The thyroid gland is essentially unchanged and appears diffusely heterogeneous with single nodule at the isthmus appearing stable. Right lobe measures 4.1 x 1.8 x 1.7 cm. Left lobe measures 4.5 x 1.5 x 1.7 cm. Isthmus measures 7.9 mm in width and includes 7 x 4 x 7 mm nonspecific nodule. Impression: Heterogeneous thyroid gland with solitary nodule at the isthmus essentially unchanged from 2014. Signed by Costa Meyers MD 04/14/2017 11:37 P
== END ==
LOC: M RAD 12:21
PROVIDERS: ATTEND Internal Medicine Endocrinology, Diabetes & Metabolism
DX: E04.1 Nontoxic single thyroid nodule (principal)

== ENCOUNTER 2017-04-28 08:49 | Emergency (ER) | payer MEDICAID, OTHER ==
[~2017-04-28] VITALS: Ht 172.7 cm; Wt 127.7 kg
[~2017-04-28 08:49] MED LIST changes: -CLEO300C2 PO; -DIVA500T3 PO; -DULC5TAB PO; -GABA600T PO; -HYDROCODONE APAP PO; -IBUP80TA PO; -LEVO88TA3 PO; -METO1TAB87 PO; -PANT40TA2 PO; -PERCOCET PO; -SYNT75TA PO; -TIZA4CAP3 PO; -TRIH2TAB3 PO
[2017-04-28] MEDS ORDERED: ONDANSETRON 4MG/2ML VIAL (J2405) IV ONE (09:00)
--- NOTE | 2017-04-28 09:10 | ECGEPIP ---
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
[2017-04-28] MEDS ORDERED: NS 500 ML IV ONE (09:15)
[2017-04-28] MEDS ORDERED: ASPIRIN 81 MG CHEW TABLET PO ONE (09:15)
[2017-04-28] MEDS ORDERED: DULC5TAB PO (09:16)
[2017-04-28] MEDS: MORPHINE 4 MG/ML 1ML SYRINGE IV PRN ×2 (09:33→10:03)
[2017-04-28 09:40] LABS: BASO % 0.6 % (0.0-1.0); EOS # 0.1 K/mm3 (0.0-0.50); EOS % 1.3 % (0.0-3.0); LARGE UNSTAINED CELL # 0.2 K/mm3 (0.0-0.4); LARGE UNSTAINED CELL % 2.6 % (0.0-4.0); LYMPH # 1.5 K/mm3 (1.5-4.5); LYMPH % 19.1 % (24.0-44.0); MEAN CORPUSCULAR HEMOGLOBIN 31.7 pg (27.0-33.0); MEAN CORPUSCULAR HGB CONC 34.3 g/dl (32.0-36.5); MEAN CORPUSCULAR VOLUME 92.2 fl (80.0-96.0); MONO # 0.9 K/mm3 (0.0-0.8); MONO % 12.8 % (0.0-5.0); NEUTROPHILS # 4.4 K/mm3 (1.8-7.7); NEUTROPHILS % 63.6 % (36.0-66.0); PLATELET COUNT, AUTOMATED 197 k/mm3 (150-450); RED CELL DISTRIBUTION WIDTH 15.9 % (11.5-14.5); WHITE BLOOD COUNT 6.9 K/mm3 (4.0-10.0)
[2017-04-28 09:47] LABS: INR 0.88
[2017-04-28 09:56] LABS: ALBUMIN 3.6 GM/DL (3.2-5.2); ALBUMIN/GLOBULIN RATIO 1.16 (1.00-1.93); ALKALINE PHOSPHATASE 74 U/L (45-117); ALT/SGPT 30 U/L (12-78); ANION GAP 5 MEQ/L (8-16); AST/SGOT 20 U/L (15-37); BILIRUBIN,DIRECT < 0.1 MG/DL (0.0-0.2); BILIRUBIN,TOTAL 0.3 MG/DL (0.2-1.0); BLOOD UREA NITROGEN 14 MG/DL (7-18); CALCIUM LEVEL 8.9 MG/DL (8.5-10.1); CARBON DIOXIDE LEVEL 31 MEQ/L (21-32); CHLORIDE LEVEL 100 MEQ/L (98-107); CREATININE FOR GFR 1.25 MG/DL (0.70-1.30); FREE T4 1.03 NG/DL (0.76-1.46); GLOMERULAR FILTRATION RATE > 60.0 (>60); GLUCOSE, FASTING 90 MG/DL (70-105); POTASSIUM SERUM 4.8 MEQ/L (3.5-5.1); SODIUM LEVEL 136 MEQ/L (136-145); TOTAL PROTEIN 6.7 GM/DL (6.4-8.2)
--- NOTE | 2017-04-28 10:14 | REP ---
PORTABLE CHEST: AP portable view of the chest is performed and compared to prior study of 01/11/2017. There is no evidence of acute infiltrate with mild bibasilar chronic interstitial changes. Cardiomediastinal silhouette is unremarkable and unchanged. Multiple sternal wires are present. IMPRESSION: No evidence of acute infiltrate. Signed by Joaquin Romeo MD 04/28/2017 03:28 P
[2017-04-28] MEDS ORDERED: ISOVUE-370 76% 100ML VIAL (Q9967) As Ordered ONE (10:43)
--- NOTE | 2017-04-28 12:04 | REP ---
CT ANGIOGRAM OF THE CHEST: COMPARISON: 11/10/2016. There has been interval sternotomy and thoracic surgery. I see no evidence of pulmonary embolism or aortic dissection. Heart is normal in size. There is no pleural or pericardial effusion. No adenopathy is seen in the chest. Scattered fibroatelectatic changes are seen bilaterally. The visualized upper abdominal structures are unchanged. IMPRESSION: No CT evidence of pulmonary embolism or aortic dissection. Scattered fibroatelectatic changes. Signed by Joaquin Romeo MD 04/28/2017 03:29 P
[2017-04-28] MEDS ORDERED: PERCOCET 5MG/325MG TAB PO ONE (12:45)
[2017-04-28] MEDS ORDERED: PERCOCET PO (13:43)
[2017-04-28 14:00] VITALS: BP 119/85
--- NOTE | 2017-04-30 11:08 | ECGEPIP ---
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
--- NOTE | 2017-04-30 19:05 | ECGEPIP ---
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
[2017-08-03] MEDS ORDERED: OMEP40CA2 PO (17:10)
== END 2017-04-28 14:21 | disposition home or self-care (01) ==
LOC: M ED 08:49
DX: R07.9 Chest pain, unspecified (principal); I25.10 Atherosclerotic heart disease of native coronary artery without angina pectoris; I25.2 Old myocardial infarction; Z86.73 Personal history of transient ischemic attack (TIA), and cerebral infarction without residual deficits; E78.5 Hyperlipidemia, unspecified; G47.30 Sleep apnea, unspecified; Z95.1 Presence of aortocoronary bypass graft; F17.200 Nicotine dependence, unspecified, uncomplicated; R94.31 Abnormal electrocardiogram [ECG] [EKG]; Z79.82 Long term (current) use of aspirin; Z79.899 Other long term (current) drug therapy; Z88.5 Allergy status to narcotic agent; Z91.89 Other specified personal risk factors, not elsewhere classified
CPT/HCPCS: 71010; 71275; 80048; 80076; 82550; 82553; 83690; 84439; 84443; 85025; 85379; 85610; 85730; 93000; 93041; 94760; 96361; 96374; 96375; 99285; J2405; Q9967

== ENCOUNTER → 2017-04-30 | Outpatient (CLI) | payer OTHER ==
[~2017-04-30] MED LIST changes: +CLEO300C2 PO; +DIVA500T3 PO; +DULC5TAB PO; +GABA600T PO; +HYDROCODONE APAP PO; +IBUP80TA PO; +LEVO88TA3 PO; +METO1TAB87 PO; +PANT40TA2 PO; +PERCOCET PO; +SYNT75TA PO; +TIZA4CAP3 PO; +TRIH2TAB3 PO
[2017-04-30 09:20] LABS: BASO # 0.1 K/mm3 (0.0-0.2); BASO % 0.7 % (0.0-1.0); EOS # 0.1 K/mm3 (0.0-0.50); EOS % 1.1 % (0.0-3.0); LARGE UNSTAINED CELL # 0.2 K/mm3 (0.0-0.4); LARGE UNSTAINED CELL % 2.4 % (0.0-4.0); LYMPH # 1.5 K/mm3 (1.5-4.5); LYMPH % 19.4 % (24.0-44.0); MEAN CORPUSCULAR HEMOGLOBIN 31.1 pg (27.0-33.0); MEAN CORPUSCULAR HGB CONC 33.6 g/dl (32.0-36.5); MEAN CORPUSCULAR VOLUME 92.6 fl (80.0-96.0); MONO # 0.9 K/mm3 (0.0-0.8); MONO % 12.2 % (0.0-5.0); NEUTROPHILS # 4.8 K/mm3 (1.8-7.7); NEUTROPHILS % 64.2 % (36.0-66.0); PLATELET COUNT, AUTOMATED 185 k/mm3 (150-450); RED CELL DISTRIBUTION WIDTH 15.8 % (11.5-14.5); WHITE BLOOD COUNT 7.5 K/mm3 (4.0-10.0)
[2017-04-30 09:47] LABS: ALBUMIN 3.4 GM/DL (3.2-5.2); ALBUMIN/GLOBULIN RATIO 1.21 (1.00-1.93); ALKALINE PHOSPHATASE 69 U/L (45-117); ALT/SGPT 29 U/L (12-78); ANION GAP 7 MEQ/L (8-16); AST/SGOT 31 U/L (15-37); BILIRUBIN,TOTAL 0.3 MG/DL (0.2-1.0); BLOOD UREA NITROGEN 17 MG/DL (7-18); CALCIUM LEVEL 8.6 MG/DL (8.5-10.1); CARBON DIOXIDE LEVEL 32 MEQ/L (21-32); CHLORIDE LEVEL 100 MEQ/L (98-107); CREATININE FOR GFR 1.29 MG/DL (0.70-1.30); GLOMERULAR FILTRATION RATE > 60.0 (>60); GLUCOSE, FASTING 90 MG/DL (70-105); POTASSIUM SERUM 4.4 MEQ/L (3.5-5.1); SODIUM LEVEL 139 MEQ/L (136-145); TOTAL PROTEIN 6.2 GM/DL (6.4-8.2)
== END ==
LOC: M LAB 08:14
PROVIDERS: ATTEND Psychiatry & Neurology Neurology
DX: G43.711 Chronic migraine without aura, intractable, with status migrainosus (principal)

== ENCOUNTER → 2017-04-30 | Outpatient (CLI) | payer OTHER ==
--- NOTE | 2017-04-30 08:15 | REP ---
Clinical: Liver cyst. Technique: Real time frank scale ultrasound examination using curved array transducer. Comparison: CT dated 05/09/2013. Findings: Liver and visualized pancreas are grossly unremarkable and without focal hepatic or pancreatic lesion identified. Exophytic hepatic cyst lateral to the right lobe measures 6 cm and appears stable compared to CT examinations dating through 2012. The gallbladder is contracted and without obvious wall thickening, pericholecystic fluid, or cholelithiasis. No biliary ductal dilatation is appreciated and the common bile duct measures approximately 7 mm maximal diameter. The right kidney is normal in reniform shape without hydronephrosis and measures 10.5 x 6.4 x 7.1 cm. No ascites. Impression: Stable septated and otherwise benign appearing 6 cm exophytic hepatic cyst unchanged compared to CT dated 2012. Signed by Costa Meyers MD 04/30/2017 08:07 A
== END ==
LOC: M RAD 07:12
PROVIDERS: ATTEND Nurse Practitioner Family
DX: K76.89 Other specified diseases of liver (principal)

== ENCOUNTER 2017-05-03 18:27 | Emergency (ER) | payer OTHER ==
[~2017-05-03] VITALS: Ht 172.7 cm; Wt 129.1 kg
[2017-05-03 18:27] VITALS: BP 148/77
[~2017-05-03 18:27] MED LIST changes: -CLEO300C2 PO; -DIVA500T3 PO; -GABA600T PO; -HYDROCODONE APAP PO; -IBUP80TA PO; -LEVO88TA3 PO; -METO1TAB87 PO; -PANT40TA2 PO; -SYNT75TA PO; -TIZA4CAP3 PO; -TRIH2TAB3 PO
[2017-05-03] MEDS ORDERED: CLEO300C2 PO (18:55)
[2017-05-03] MEDS ORDERED: CLINDAMYCIN 150 MG CAP PO ONE (19:00)
[2017-08-03] MEDS ORDERED: OMEP40CA2 PO (17:10)
== END 2017-05-03 19:05 | disposition home or self-care (01) ==
LOC: M ED 18:27
DX: L03.012 Cellulitis of left finger (principal); I51.9 Heart disease, unspecified; I10 Essential (primary) hypertension; Z95.1 Presence of aortocoronary bypass graft; E03.9 Hypothyroidism, unspecified; F41.9 Anxiety disorder, unspecified; F17.200 Nicotine dependence, unspecified, uncomplicated; Z79.82 Long term (current) use of aspirin; Z79.899 Other long term (current) drug therapy; Z88.5 Allergy status to narcotic agent; Z91.89 Other specified personal risk factors, not elsewhere classified

== ENCOUNTER 2017-05-09 11:32 | Emergency (ER) | payer MEDICAID, OTHER ==
[~2017-05-09] VITALS: Ht 172.7 cm; Wt 129.0 kg
[~2017-05-09 11:32] MED LIST changes: +CLEO300C2 PO
[2017-05-09 13:18] LABS: MEAN CORPUSCULAR HEMOGLOBIN 31.3 pg (27.0-33.0); MEAN CORPUSCULAR HGB CONC 34.7 g/dl (32.0-36.5); MEAN CORPUSCULAR VOLUME 90.3 fl (80.0-96.0); WHITE BLOOD COUNT 8.1 K/mm3 (4.0-10.0)
[2017-05-09 13:19] LABS: BASO # 0.1 K/mm3 (0.0-0.2); BASO % 0.6 % (0.0-1.0); EOS # 0.1 K/mm3 (0.0-0.50); EOS % 1.6 % (0.0-3.0); LARGE UNSTAINED CELL # 0.1 K/mm3 (0.0-0.4); LARGE UNSTAINED CELL % 1.1 % (0.0-4.0); LYMPH # 1.6 K/mm3 (1.5-4.5); LYMPH % 19.9 % (24.0-44.0); MONO # 0.8 K/mm3 (0.0-0.8); MONO % 9.6 % (0.0-5.0); NEUTROPHILS # 5.4 K/mm3 (1.8-7.7); NEUTROPHILS % 67.2 % (36.0-66.0); PLATELET COUNT, AUTOMATED 214 k/mm3 (150-450); RED CELL DISTRIBUTION WIDTH 16.1 % (11.5-14.5)
[2017-05-09 13:26] LABS: ANION GAP 8 MEQ/L (8-16); BLOOD UREA NITROGEN 24 MG/DL (7-18); CALCIUM LEVEL 9.1 MG/DL (8.5-10.1); CARBON DIOXIDE LEVEL 27 MEQ/L (21-32); CHLORIDE LEVEL 103 MEQ/L (98-107); CREATININE FOR GFR 1.18 MG/DL (0.70-1.30); GLOMERULAR FILTRATION RATE > 60.0 (>60); GLUCOSE, FASTING 97 MG/DL (70-105); POTASSIUM SERUM 4.2 MEQ/L (3.5-5.1); SODIUM LEVEL 138 MEQ/L (136-145)
[2017-05-09 14:30] LABS: ERYTHROCYTE SEDIMENTATION RATE 3 mm/hr (0-15)
[2017-05-09 14:49] VITALS: BP 124/79
[2017-08-03] MEDS ORDERED: OMEP40CA2 PO (17:10)
== END 2017-05-09 14:50 | disposition home or self-care (01) ==
LOC: M ED 11:32
DX: L03.114 Cellulitis of left upper limb (principal); I10 Essential (primary) hypertension; E78.5 Hyperlipidemia, unspecified; G47.33 Obstructive sleep apnea (adult) (pediatric); E03.9 Hypothyroidism, unspecified; K76.89 Other specified diseases of liver; I25.10 Atherosclerotic heart disease of native coronary artery without angina pectoris; F41.9 Anxiety disorder, unspecified; F33.8 Other recurrent depressive disorders; Z98.61 Coronary angioplasty status; Z87.891 Personal history of nicotine dependence; Z88.5 Allergy status to narcotic agent; Z91.048 Other nonmedicinal substance allergy status; Z79.82 Long term (current) use of aspirin; Z79.899 Other long term (current) drug therapy

== ENCOUNTER 2017-05-12 15:47 | Emergency (ER) | payer OTHER ==
[~2017-05-12] VITALS: Ht 172.7 cm; Wt 131.4 kg
[2017-05-12 15:48] VITALS: BP 109/70
[2017-05-12] MEDS ORDERED: TIZA4CAP3 PO (16:00)
[2017-05-12] MEDS ORDERED: PANT40TA2 PO (16:00)
[2017-05-12] MEDS ORDERED: DIVA500T3 PO (16:00)
[2017-05-12] MEDS ORDERED: SYNT75TA PO (16:00)
[2017-08-03] MEDS ORDERED: OMEP40CA2 PO (17:10)
== END 2017-05-12 17:40 | disposition home or self-care (01) ==
LOC: M ED 15:47
DX: Z47.81 Encounter for orthopedic aftercare following surgical amputation (principal); M96.830 Postprocedural hemorrhage of a musculoskeletal structure following a musculoskeletal system procedure; I25.10 Atherosclerotic heart disease of native coronary artery without angina pectoris; G47.30 Sleep apnea, unspecified; M54.9 Dorsalgia, unspecified; F32.9 Major depressive disorder, single episode, unspecified; F41.9 Anxiety disorder, unspecified; K21.9 Gastro-esophageal reflux disease without esophagitis; Z87.891 Personal history of nicotine dependence; Z79.82 Long term (current) use of aspirin; Z79.899 Other long term (current) drug therapy; Z88.5 Allergy status to narcotic agent; Z91.89 Other specified personal risk factors, not elsewhere classified

== ENCOUNTER 2017-05-13 12:57 | Emergency (ER) | payer OTHER ==
[~2017-05-13] VITALS: Ht 172.7 cm; Wt 131.4 kg
[~2017-05-13 12:57] MED LIST changes: +DIVA500T3 PO; +PANT40TA2 PO; +SYNT75TA PO; +TIZA4CAP3 PO
[2017-05-13] MEDS ORDERED: NS 500 ML IV ONE (14:15)
[2017-05-13 14:40] LABS: BASO % 0.6 % (0.0-1.0); EOS # 0.1 K/mm3 (0.0-0.50); EOS % 1.6 % (0.0-3.0); LARGE UNSTAINED CELL # 0.1 K/mm3 (0.0-0.4); LARGE UNSTAINED CELL % 1.7 % (0.0-4.0); LYMPH % 23.8 % (24.0-44.0); MEAN CORPUSCULAR HGB CONC 33.4 g/dl (32.0-36.5); MEAN CORPUSCULAR VOLUME 92.8 fl (80.0-96.0); MONO # 1.1 K/mm3 (0.0-0.8); MONO % 14.1 % (0.0-5.0); NEUTROPHILS # 4.5 K/mm3 (1.8-7.7); NEUTROPHILS % 58.1 % (36.0-66.0); PLATELET COUNT, AUTOMATED 186 k/mm3 (150-450); RED CELL DISTRIBUTION WIDTH 16.4 % (11.5-14.5); WHITE BLOOD COUNT 7.8 K/mm3 (4.0-10.0)
--- NOTE | 2017-05-13 14:59 | REP ---
Left lower extremity Duplex Doppler venous ultrasound: Real time compression and duplex Doppler interrogation of the left lower extremity deep venous system is performed. The left common femoral, superficial femoral and popliteal veins are fully compressible with transducer pressure and demonstrate normal spontaneous and phasic flow, without evidence of deep venous thrombosis. Impression: No evidence of deep venous thrombosis of the left lower extremity femoral popliteal venous system. Signed by Joaquin Romeo MD 05/13/2017 02:51 P
--- NOTE | 2017-05-13 15:09 | REP ---
PA and lateral chest: Comparison is 04/28/2017. There are sternotomy wires, unchanged. The lung johnson are clear. The cardiac size is normal The uriel, mediastinum, and bony thorax are unremarkable. Impression: Negative PA and lateral chest. There is no interval change. Signed by Joaquin Lundy MD 05/13/2017 03:01 P
[2017-05-13 15:11] LABS: ALBUMIN 3.5 GM/DL (3.2-5.2); ALKALINE PHOSPHATASE 73 U/L (45-117); ALT/SGPT 38 U/L (12-78); ANION GAP 8 MEQ/L (8-16); AST/SGOT 28 U/L (15-37); BILIRUBIN,TOTAL 0.4 MG/DL (0.2-1.0); BLOOD UREA NITROGEN 16 MG/DL (7-18); CALCIUM LEVEL 8.7 MG/DL (8.5-10.1); CARBON DIOXIDE LEVEL 27 MEQ/L (21-32); CHLORIDE LEVEL 105 MEQ/L (98-107); CREATININE FOR GFR 1.32 MG/DL (0.70-1.30); GLOMERULAR FILTRATION RATE > 60.0 (>56); POTASSIUM SERUM 4.5 MEQ/L (3.5-5.1); SODIUM LEVEL 140 MEQ/L (136-145)
[2017-05-13 15:16] LABS: GLUCOSE, FASTING 99 MG/DL (70-105)
--- NOTE | 2017-05-13 15:53 | REP ---
CT Head without contrast HISTORY: Syncope COMPARISON: 02/13/2017 There is no intraparenchymal hemorrhage, acute infarct, mass or midline shift. The ventricular system is normal in appearance. There is no extra cerebral collection. There is no fracture. The visualized sinuses are clear. IMPRESSION: There is no intracranial lesion. Signed by Mitch Blum MD 05/13/2017 03:44 P
[2017-05-13 17:01] VITALS: BP 135/80
--- NOTE | 2017-05-13 17:57 | REP ---
REASON: Pain after trauma. COMPARISON: None. FINDINGS: No acute fracture or destructive osseous lesion. The mortise is intact. There is lateral soft-tissue swelling which should be correlated clinically. Signed by John Fry DO 05/13/2017 06:58 P
--- NOTE | 2017-05-13 20:33 | ECGEPIP ---
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
[2017-08-03] MEDS ORDERED: OMEP40CA2 PO (17:10)
== END 2017-05-13 17:04 | disposition home or self-care (01) ==
LOC: M ED 12:57
DX: R55 Syncope and collapse (principal); E03.9 Hypothyroidism, unspecified; S93.402A Sprain of unspecified ligament of left ankle, initial encounter; X58.XXXA Exposure to other specified factors, initial encounter; Y92.59 Other trade areas as the place of occurrence of the external cause; Y93.89 Activity, other specified; Y99.9 Unspecified external cause status; Z79.82 Long term (current) use of aspirin; Z79.899 Other long term (current) drug therapy; Z88.5 Allergy status to narcotic agent; Z91.89 Other specified personal risk factors, not elsewhere classified

== ENCOUNTER 2017-05-20 11:02 | Inpatient (IN) | payer MEDICAID, OTHER ==
[~2017-05-20] VITALS: Ht 172.7 cm; Wt 133.0 kg
[2017-05-20] MEDS ORDERED: HYDROCODONE APAP PO (11:23)
[2017-05-20] MEDS ORDERED: LEVO88TA3 PO (11:23)
[2017-05-20 12:23] LABS: BASO % 0.6 % (0.0-1.0); EOS # 0.1 K/mm3 (0.0-0.50); EOS % 2.2 % (0.0-3.0); LARGE UNSTAINED CELL # 0.2 K/mm3 (0.0-0.4); LARGE UNSTAINED CELL % 2.8 % (0.0-4.0); LYMPH # 1.4 K/mm3 (1.5-4.5); LYMPH % 21.7 % (24.0-44.0); MEAN CORPUSCULAR HEMOGLOBIN 31.6 pg (27.0-33.0); MEAN CORPUSCULAR HGB CONC 33.5 g/dl (32.0-36.5); MEAN CORPUSCULAR VOLUME 94.3 fl (80.0-96.0); MONO # 0.8 K/mm3 (0.0-0.8); MONO % 12.2 % (0.0-5.0); NEUTROPHILS # 3.9 K/mm3 (1.8-7.7); NEUTROPHILS % 60.5 % (36.0-66.0); PLATELET COUNT, AUTOMATED 194 k/mm3 (150-450); RED CELL DISTRIBUTION WIDTH 15.7 % (11.5-14.5); WHITE BLOOD COUNT 6.4 K/mm3 (4.0-10.0)
--- NOTE | 2017-05-20 13:11 | REP ---
Portable chest x-ray: Single view. History: Syncope. Comparison chest x-ray: May 13, 2017. Findings: EKG monitoring electrodes overlie the chest. The patient is status post prior median sternotomy. Heart is not felt to be enlarged. There is some benign pleural thickening bilaterally unchanged. No pleural effusion is seen. Pulmonary vasculature is not increased. Impression: Prior sternotomy. Benign pleural thickening. No acute disease Signed by Timothy Barragan MD 05/20/2017 03:54 P
[2017-05-20 13:18] LABS: ANION GAP 3 MEQ/L (8-16); BLOOD UREA NITROGEN 12 MG/DL (7-18); CALCIUM LEVEL 9.4 MG/DL (8.5-10.1); CARBON DIOXIDE LEVEL 35 MEQ/L (21-32); CHLORIDE LEVEL 103 MEQ/L (98-107); CREATININE FOR GFR 1.29 MG/DL (0.70-1.30); FREE T4 1.04 NG/DL (0.76-1.46); GLOMERULAR FILTRATION RATE > 60.0 (>56); GLUCOSE, FASTING 84 MG/DL (70-105); MAGNESIUM LEVEL 2.2 MG/DL (1.8-2.4); POTASSIUM SERUM 4.9 MEQ/L (3.5-5.1); SODIUM LEVEL 141 MEQ/L (136-145)
--- NOTE | 2017-05-20 13:32 | REP ---
Head CT without contrast: History: Syncope, head injury. Comparison study: May 13, 2017. CT findings: Bone window settings demonstrate an intact bony calvarium. There is no evidence of skull fracture or incidental bony calvarial lesion. The visualized paranasal sinuses appear clear. No intraorbital abnormality is seen. On soft tissue window setting images; the lateral, third, and fourth ventricles are normal in size and position. Romeo-white differentiation pattern is normal above and below the tentorium. There are is no evidence of intracranial hemorrhage. No mass, edema, infarction, or midline shift is seen. No extra-axial fluid collection is appreciated. Impression: Negative noncontrast head CT. Signed by Timothy Barragan MD 05/20/2017 01:24 P
--- NOTE | 2017-05-20 13:43 | REP ---
Left lower extremity Duplex Doppler venous ultrasound: Real time compression and duplex Doppler interrogation of the left lower extremity deep venous system is performed. The left common femoral, superficial femoral and popliteal veins are fully compressible with transducer pressure and demonstrate normal spontaneous and phasic flow, without evidence of deep venous thrombosis. Impression: No evidence of deep venous thrombosis of the left lower extremity femoral popliteal venous system. Signed by Joaquin Romeo MD 05/20/2017 01:35 P
[2017-05-20] MEDS ORDERED: ISOVUE-370 76% 100ML VIAL (Q9967) As Ordered ONE (13:55)
--- NOTE | 2017-05-20 15:04 | REP ---
CT of the chest with IV contrast, CT pulmonary angiography: Comparisons 11/10/2016. There are no emboli in the pulmonary trunk or central pulmonary arteries. There are no emboli in the pulmonary lobe or segment branches. There are no infiltrates or effusions. There are no masses or nodules. There is a tiny 7 mm enhancing structure immediately adjacent to the anterior portion of the aortic arch of uncertain significance. Was not present previously. There are is a sternotomy and the patient has had an interim coronary bypass surgery with bypass graft seen coursing through the anterior mediastinum. The small enhancing structure could be related to coronary bypass surgery or could represent a tiny aortic arch, diverticulum, not present previously. There is no mediastinal hematoma. There is no adenopathy. There are no infiltrates, effusions, masses or nodules. Cardiac size is normal. In the upper abdomen there is a 6.5 cm cyst, likely arising from the anterior portion of the hepatic right lobe inferiorly. This previously measured 5.6 cm. The gallbladder is distended but otherwise unremarkable. Visualized portions of the pancreas, spleen and adrenals are unremarkable. Impression: There is no pulmonary embolus. There are no infiltrates or effusions. No masses. There is a tiny 7 mm opacifying structure anterior to the aortic arch of uncertain significance. There is may be related to the patient's coronary bypass surgery or possibly a small aortic arch diverticulum. It was not present on the comparison study. There is an hepatic cyst that has increased in size. Signed by Joaquin Lundy MD 05/20/2017 02:56 P
--- NOTE | 2017-05-20 15:20 | HPEPDOC ---
Medical History and Physical Date of Admission 05/20/17 History and Physical ATTENDING: Dr. Collazo PCP: Bhavani Snell WRAPPER OFF CC:Syncopal episode HPI: 52yoM with a past medical history significant for CAD/CABG, hypothyroid, HTN, HLD, FRAN. Pt was seen in ED 05/13/17. [place] syncopal episode. He states "the next thing I knew I was on the ground" He did not realize what had happened. [place] somewhat dizzy and came to ED. Today he states he was coming out of the [place], had LOC and then vomited. He states lasted about 1 min. No nausea prior. Denies unresponsive episodes, tongue biting, incontinence. Denies palpitations, SOB/CP. Denies any fevers, chills, weakness, fatigue, STYLES, cough,abdominal pain, N/V/D or changes in bowel or bladder habits. Upon presentation to the hospital the patient was found to have Syncopal episodes, thus the hospitalist team was consulted. PMHx: anxiety depression allergic rhinitis GERD COPD HLD hypothyroid h/o kidney stone h/o liver cyst CAD/CABG x4 Dr Juárez. FRAN/CPAP obesity BMI 45.3 chronic pain chronic sternum pain s/p CABG Chronic BP. chronic HAs. NCN. 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 SOCHX: Resides in: [facility] Marital Status: single Kids: none Employment: unemployed Tobacco use:denies ETOH: denies Illicit Drugs: Denies Recent travel: denies Advanced directives: denies FAMHX: Mother: Alive, well Father: [place]. Siblings: Alive, well ROS: As noted in HPI, otherwise 11pt ROS of systems reviewed and unremarkable. PE: GEN: 52yoM, appears stated age. Well-nourished, well developed. No acute distress. Alert and oriented x 3. Pleasant, interactive. HEENT: Normocephalic, atraumatic. Pupils are equal, round, and reactive to light. Extraocular movements are intact. No nystagmus appreciated. Sclera are nonicteric. Conjunctiva without injection. Nose midline. Nasal turbinates without bogginess. EACs both patent BL. No facial asymmetry. Moist mucous membranes. Dentition fair. Pharynx pink and moist, no cobblestoning. Neck supple , trachea midline. No lymphadenopathy or thyromegaly appreciated. CHEST: Regular rate and rhythm, +S1, +S2 LUNGS: Clear to auscultation bilaterally. No wheezes, rales, or rhonchi. Breathing appears symmetric and easy. Patient is speaking in full sentences. No accessory muscle use. ABD: Round, soft, non-tender, non-distended. +Bowel sounds throughout. No rebound or guarding. No costovertebral angle tenderness. EXT: Pulses 2+ bilaterally dorsalis pedis and radial. 2 mm lower extremity edema appreciated. SKIN: [place], dry, warm. Capillary refill <2sec. No rashes. NEURO: Alert and oriented x 3. Cranial nerves III-XII are intact. No focal deficits appreciated. CT Head Negative noncontrast head CT. CTA chest: There is no pulmonary embolus. There are no infiltrates or effusions. No masses. There is a tiny 7 mm opacifying structure anterior to the aortic arch of uncertain significance. There is may be related to the patient's coronary bypass surgery or possibly a small aortic arch diverticulum. It was not present on the comparison study. There is an hepatic cyst that has increased in size. EKG: SB 58 bpm. CXR Prior sternotomy. Benign pleural thickening. No acute disease LE U/S No evidence of deep venous thrombosis of the left lower extremity femoral popliteal venous system A&P: 52yoM with a past medical history significant for CAD/CABG, hypothyroid, HTN, HLD, FRAN. Pt was seen in ED 05/13/17. [place] had syncopal episode. He states "the next thing I knew I was on the ground" He did not realize what had happened. [place] somewhat dizzy and came to ED. Today he states he was coming out of the [place], had LOC and then vomited. He states lasted about 1 min. No nausea prior. 1. The patient will be admitted to PCU for at least [address] Collazo's service. 2. Syncopal episodes. Orthostatic VS. PCU/TM. MRI/MRA brain. EEG. Copy of Echo from Dr Juárez. Carotid U/S. 3. 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 Radiology again reviewed CTA chest. Dr Saavedra to review as well. Pending. 4. CAD/CABGx4. Serial CIP/trop. PCU/TM. Metoprolol/ASA. Consider cardiology Clt pending results above. 5. HLD. Statin. 6. hypothyroid. TSH WNL. Continue supplement. 7. Chronic pain/Back pain. Continue outpt regimen. 8. GERD. PPI. 9. Chronic STYLES. Depakote. Level WNL. DVT prophylaxis. Lovenox. MED REC PENDING AT THIS TIME. The patient is a Full code. Vital Signs Vital Signs Date Time Temp Pulse Resp B/P (MAP) Pulse Ox O2 Delivery O2 Flow Rate FiO2 05/20/17 15:06 56 05/20/17 14:10 115/64 (81) 05/20/17 13:51 95 05/20/17 11:03 97.4 18 Room Air Laboratory Data Labs 24H Laboratory Tests 2 05/20/17 12:12: White Blood Count 6.4, Red Blood Count 4.61, Hemoglobin 14.6, Hematocrit 43.5, Mean Corpuscular Volume 94.3, Mean Corpuscular Hemoglobin 31.6, Mean Corpuscular Hemoglobin Concent 33.5, Red Cell Distribution Width 15.7H, Platelet Count 194, Neutrophils (%) (Auto) 60.5, Lymphocytes (%) (Auto) 21.7L, Monocytes (%) (Auto) 12.2H, Eosinophils (%) (Auto) 2.2, Basophils (%) (Auto) 0.6 , Neutrophils # (Auto) 3.9, Lymphocytes # (Auto) 1.4L, Monocytes # (Auto) 0.8, Eosinophils # (Auto) 0.1, Basophils # (Auto) 0.0, Large Unclassified Cells % 2.8 , Large Unclassified Cells # 0.2, Anion Gap 3L, Glomerular Filtration Rate > 60.0, Blood Urea Nitrogen 12, Creatinine 1.29, Sodium Level 141, Potassium Level 4.9, Chloride Level 103, Carbon Dioxide Level 35H, Calcium Level 9.4, Magnesium Level 2.2, Total Creatine Kinase 266, Creatine Kinase MB 4.2H, Creatine Kinase MB Relative Index 1.57, Troponin I < 0.02, Thyroid Stimulating Hormone (TSH) 2.780, Free Thyroxine 1.04, Valproic Acid (Depakene) Level 52.6 CBC/BMP Laboratory Tests 05/20/17 12:12 Red Blood Count 4.61, Mean Corpuscular Volume 94.3, Mean Corpuscular Hemoglobin 31.6, Mean Corpuscular Hemoglobin Concent 33.5, Red Cell Distribution Width 15.7 H, Neutrophils (%) (Auto) 60.5, Lymphocytes (%) (Auto) 21.7 L, Monocytes (% ) (Auto) 12.2 H, Eosinophils (%) (Auto) 2.2, Basophils (%) (Auto) 0.6, Neutrophils # (Auto) 3.9, Lymphocytes # (Auto) 1.4 L, Monocytes # (Auto) 0.8, Eosinophils # (Auto) 0.1, Basophils # (Auto) 0.0, Calcium Level 9.4 Home Medications Scheduled (Risperidone) 0.5 Mg Tab, 0.5 MG PO QPM SEE COMMENTS (Iron) 325 Mg Tab, 325 MG PO BID Aspirin (Aspirin EC) 325 Mg Tabec, 325 MG PO DAILY Atorvastatin Calcium (Atorvastatin Calcium) 40 Mg Tab, 4 MG PO DAILY Buspirone HCl (Buspirone HCl) 10 Mg Tab, 10 MG PO BID Cetirizine HCl (Cetirizine HCl) 10 Mg Tab, 10 MG PO QPM Cholecalciferol (Vitamin D) 5,000 Unit Tab, 5,000 UNIT PO DAILY Escitalopram Oxalate (Lexapro) 10 Mg Tab, 30 MG PO QPM Fish Oil (Fish Oil) 1,000 Mg Cap, 1,200 MG PO BID Gabapentin (Gabapentin) 300 Mg Cap, 600 MG PO TID Metoprolol Tartrate (Metoprolol Tartrate) 12.5 Mg Halftab, 25 MG PO DAILY Multivitamins *[facility] STOCKED* (Thera M Plus *[facility] STOCKED*) 1 Tab Tab, 1 TAB PO DAILY Ranitidine Hcl (Zantac) 150 Mg Tab, 1 TAB PO BID Scheduled PRN Bisacodyl (Dulcolax) 5 Mg Tab, 5 MG PO for CONSTIPATION [---Hydrocodone-Apap] 5-325 , 1 TAB PO PRN PRN for SEE LABEL COMMENTS Miscellaneous Medications Albuterol Sulfate (Ventolin Hfa) 200 Puff/8 Gm Aers Divalproex Sodium (Divalproex Sodium Dr) 500 Mg Tab Fluticasone Propionate (Fluticasone Propionate 0.05%) 120 [place]/16 Gm Naspr Levothyroxine Sodium (Synthroid) 88 Mcg Tab Pantoprazole Sodium (Pantoprazole Sodium) 40 Mg Tab Tizanidine Hydrochloride (Tizanidine HCl) 4 Mg Cap Allergies Coded Allergies: TAPE (Verified Allergy, Mild, rash upon removal, 05/09/17) Codeine (Unverified Adverse Reaction, Mild, VOMIT, 05/09/17) Sole Yates May 20, 2017 15:20
[2017-05-20] MEDS: GABAPENTIN 300 MG CAP PO SCH ×2 (16:00→21:41)
[2017-05-20] MEDS ORDERED: METO1TAB87 PO (16:06)
[2017-05-20] MEDS ORDERED: GABA600T PO (16:06)
[2017-05-20] MEDS ORDERED: HYDR-3713 PO (16:10)
[2017-05-20] MEDS ORDERED: COLA100C5 PO (16:10)
[2017-05-20] MEDS ORDERED: IBUP80TA PO (16:10)
[2017-05-20] MEDS ORDERED: PERC5TAB12 PO (16:10)
[2017-05-20] MEDS ORDERED: TRIH2TAB3 PO (16:10)
[2017-05-20] MEDS ORDERED: BISACODYL 5 MG TAB PO PRN (18:30)
[2017-05-20] MEDS ORDERED: DOCUSATE SODIUM 100 MG CAP PO PRN (18:30)
[2017-05-20] MEDS ORDERED: FLUTICASONE PROP 0.05% NASAL SPRAY 16 GM (FLONASE) PRN (18:30)
[2017-05-20] MEDS ORDERED: ALBUTEROL 90 MCG/ACT 8GM HFA INHALER INH PRN (18:30)
[2017-05-20] MEDS ORDERED: PERCOCET 5MG/325MG TAB PO PRN (18:30)
[2017-05-20 20:49] VITALS: BP 128/73
[2017-05-20] MEDS: TRIHEXYPHENIDYL 2 MG TAB PO SCH (21:41)
[2017-05-20] MEDS: ESCITALOPRAM OXALATE 10 MG TAB (LEXAPRO) PO SCH (21:42)
[2017-05-20] MEDS: PANTOPRAZOLE 40MG TAB (PROTONIX) PO SCH (21:42)
[2017-05-20] MEDS: OMEGA-3 1050MG CAPSULE PO SCH (21:42)
[2017-05-20] MEDS: FAMOTIDINE 20 MG TAB PO SCH (21:42)
[2017-05-20] MEDS: FERROUS SULFATE 325MG TAB PO SCH (21:43)
[2017-05-20] MEDS: busPIRone 10 MG TAB PO SCH (21:43)
[2017-05-20] MEDS: CETIRIZINE (ZyrTEC) 10 MG TAB PO SCH (21:43)
[2017-05-20] MEDS: DIVALPROEX 500 MG TAB PO SCH (21:44)
[2017-05-20] MEDS: tiZANidine 4 MG TAB PO SCH (21:44)
[2017-05-20] MEDS: risperiDONE 0.5 MG TAB PO SCH (21:44)
[2017-05-20 23:59] VITALS: BP_SYST 100; BP_SYST 101; BP_DIAS 55; BP_DIAS 56; BP_DIAS 59
[2017-05-21] VITALS (7 sets, daily range): BP systolic 93–138; BP diastolic 52–78
[2017-05-21] MEDS: LEVOTHYROXINE 88MCG TABLET (0.088 MG) PO SCH (05:51)
[2017-05-21 05:57] LABS: MEAN CORPUSCULAR HEMOGLOBIN 31.3 pg (27.0-33.0); MEAN CORPUSCULAR HGB CONC 33.4 g/dl (32.0-36.5); MEAN CORPUSCULAR VOLUME 93.6 fl (80.0-96.0); RED CELL DISTRIBUTION WIDTH 15.6 % (11.5-14.5); WHITE BLOOD COUNT 5.2 K/mm3 (4.0-10.0)
[2017-05-21 06:16] LABS: ALBUMIN/GLOBULIN RATIO 0.94 (1.00-1.93); ALKALINE PHOSPHATASE 61 U/L (45-117); ALT/SGPT 34 U/L (12-78); ANION GAP 7 MEQ/L (8-16); AST/SGOT 25 U/L (15-37); BILIRUBIN,TOTAL 0.5 MG/DL (0.2-1.0); BLOOD UREA NITROGEN 14 MG/DL (7-18); CALCIUM LEVEL 8.5 MG/DL (8.5-10.1); CARBON DIOXIDE LEVEL 31 MEQ/L (21-32); CHLORIDE LEVEL 104 MEQ/L (98-107); CREATININE FOR GFR 1.11 MG/DL (0.70-1.30); GLOMERULAR FILTRATION RATE > 60.0 (>56); GLUCOSE, FASTING 77 MG/DL (70-105); SODIUM LEVEL 142 MEQ/L (136-145); TOTAL PROTEIN 6.2 GM/DL (6.4-8.2)
[2017-05-21] MEDS: ENOXAPARIN 40 MG/0.4 ML SYRINGE (J1650) SC SCH ×2 (09:27→09:30)
[2017-05-21] MEDS: ATORVASTATIN 20 MG TAB PO SCH (09:27)
[2017-05-21] MEDS: OMEGA-3 1050MG CAPSULE PO SCH ×2 (09:28→20:31)
[2017-05-21] MEDS: METOPROLOL TART 25 MG TABLET PO SCH (09:28)
[2017-05-21] MEDS: DIVALPROEX 500 MG TAB PO SCH ×2 (09:28→20:28)
[2017-05-21] MEDS: ASPIRIN ENTERIC 325 MG TAB PO SCH (09:28)
[2017-05-21] MEDS: GABAPENTIN 300 MG CAP PO SCH ×3 (09:28→20:30)
[2017-05-21] MEDS: PANTOPRAZOLE 40MG TAB (PROTONIX) PO SCH ×2 (09:29→20:31)
[2017-05-21] MEDS: MULTIVITAMINS/MINERALS THERAP 1 TAB PO SCH (09:29)
[2017-05-21] MEDS: VITAMIN D 1,000 INTERNATIONAL UNITS TABLET PO SCH (09:29)
[2017-05-21] MEDS: FERROUS SULFATE 325MG TAB PO SCH ×2 (09:29→20:28)
[2017-05-21] MEDS: busPIRone 10 MG TAB PO SCH ×2 (09:29→20:29)
[2017-05-21] MEDS ORDERED: LORazepam 2 MG/ML VIAL (J2060) IV ONE (10:00)
--- NOTE | 2017-05-21 10:48 | IPNPDOC ---
Subjective Date Seen The patient was seen on 05/21/17. Subjective Chief Complaint/HPI The patient is a 52-year-old male admitted with a reason for visit of Syncopal Episode. Events since last encounter s/p syncopal episode on 05/13 and again on 05/20/17. States no warning, + LOC. MRI/ MRA and EEG pending. Telemetry uneventful since admission. s/p LEft hand 5th digit amputation due to infection hardware and osteomyelitis 05/[address] Sundar Mejía. Organism unknown. Records unavailable. Constitutional: Denies: Chills, Fever, Night Sweats ENT: Denies: Head Aches, Ear Pain, Dysphagia Pulmonary: Denies: Dyspnea, Cough Gastrointestinal: Denies: Nausea, Vomiting, Abdominal Pain, Diarrhea, Constipation Genitourinary: Denies: Dysuria, Frequency, Incontinence, Retention Musculoskeletal: Denies: Neck Pain, Back Pain, Joint Pain, Muscle Pain, Spasms Neurological: Denies: Weakness, Numbness, Change in speech, Confusion Objective Physical Examination General Exam: Positive: Alert, No Acute Distress Eye Exam: Positive: PERRLA, Conjunctiva & lids normal, EOMI, Negative: Sclera icteric Neck Exam: Positive: Supple, Negative: JVD, thyromegaly Chest Exam: Positive: Clear to auscultation, Normal air movement Heart Exam: Positive: Rate Normal, Regular Rhythm, Normal S1, Normal S2, Negative: Murmurs, Rubs Telemetry: Positive: No significant arrhythmia Abdomen Exam: Positive: Normal bowel sounds, Soft, Negative: Tenderness, Hepatospenomegaly Extremity Exam: Positive: Other (Left hand 5th digit: stump erythematous, no warmth or tenderness. ) Skin Exam: Positive: Nl turgor and temperature, Negative: Rash, Breakdown Neuro Exam: Positive: Normal Gait, Normal Speech, Cranial Nerves 3-12 NL, Reflexes 2+ Psych Exam: Positive: Mental status NL, Mood NL, Oriented x 3 Assessment /Plan Problems (1) Syncope and collapse Status: Acute Problem Text: MRI/MRA pending. EEG pending. Eval ESR, CRP, blood cxs due to recent hx of osteomyelitis. will order echo to r/o vegetation. (2) CAD (coronary artery disease) Problem Text: s/p CABG at [facility] 11/2016. Follows with [facility] for cardiology needs. (3) Osteomyelitis of finger of left hand Problem Text: s/p recent amputation of left h and 5th finger with Dr. Sundar Mejía due to osteomyelitis. (4) Migraine Status: Chronic Problem Specific Plan: Monitor Clinically Problem Text: on Depakote for Chronic STYLES and migraine. Levels stable on toxicology (5) HTN (hypertension) Status: Chronic Problem Specific Plan: Monitor Clinically (6) Hypothyroidism Status: Chronic Problem Text: TSH and T4 stable (7) Hyperlipidemia Status: Chronic Problem Specific Plan: Monitor Clinically Problem Text: Atorvastatin 40 mg (8) Depression Status: Chronic Problem Specific Plan: Monitor Clinically (9) Anxiety Status: Chronic Problem Specific Plan: Monitor Clinically Plan/VTE VTE Prophylaxis Ordered?: Yes VS, I&O, 24H, Fishbone Vital Signs/I&O Vital Signs Date Time Temp Pulse Resp B/P (MAP) Pulse Ox O2 Delivery O2 Flow Rate FiO2 05/21/17 09:28 63 127/68 05/21/17 08:13 97.1 18 94 Room Air I&O- Last 24 Hours up to 6 AM 05/21/17 06:00 Intake Total 480 ml Output Total 500 ml Balance -20 ml Laboratory Data 24H LABS Laboratory Tests 2 05/20/17 12:12: White Blood Count 6.4, Red Blood Count 4.61, Hemoglobin 14.6, Hematocrit 43.5, Mean Corpuscular Volume 94.3, Mean Corpuscular Hemoglobin 31.6, Mean Corpuscular Hemoglobin Concent 33.5, Red Cell Distribution Width 15.7H, Platelet Count 194, Neutrophils (%) (Auto) 60.5, Lymphocytes (%) (Auto) 21.7L, Monocytes (%) (Auto) 12.2H, Eosinophils (%) (Auto) 2.2, Basophils (%) (Auto) 0.6 , Neutrophils # (Auto) 3.9, Lymphocytes # (Auto) 1.4L, Monocytes # (Auto) 0.8, Eosinophils # (Auto) 0.1, Basophils # (Auto) 0.0, Large Unclassified Cells % 2.8 , Large Unclassified Cells # 0.2, Anion Gap 3L, Glomerular Filtration Rate > 60.0, Blood Urea Nitrogen 12, Creatinine 1.29, Sodium Level 141, Potassium Level 4.9, Chloride Level 103, Carbon Dioxide Level 35H, Calcium Level 9.4, Magnesium Level 2.2, Total Creatine Kinase 266, Creatine Kinase MB 4.2H, Creatine Kinase MB Relative Index 1.57, Troponin I < 0.02, Thyroid Stimulating Hormone (TSH) 2.780, Free Thyroxine 1.04, Valproic Acid (Depakene) Level 52.6 05/20/17 19:50: Total Creatine Kinase 289, Creatine Kinase MB 3.5, Creatine Kinase MB Relative Index 1.21, Troponin I < 0.02 05/21/17 05:12: Anion Gap 7L, Glomerular Filtration Rate > 60.0, Blood Urea Nitrogen 14, Creatinine 1.11, Sodium Level 142, Potassium Level 4.0, Chloride Level 104, Carbon Dioxide Level 31, Calcium Level 8.5, Total Creatine Kinase 179, Creatine Kinase MB 2.4, Creatine Kinase MB Relative Index 1.34, Troponin I < 0.02, Aspartate Amino Transf (AST/SGOT) 25, Alanine Aminotransferase (ALT/SGPT) 34, Alkaline Phosphatase 61, Total Bilirubin 0.5, Total Protein 6.2L, Albumin 3.0L, Albumin/Globulin Ratio 0.94L CBC/BMP Laboratory Tests 05/20/17 12:12 Red Blood Count 4.61, Mean Corpuscular Volume 94.3, Mean Corpuscular Hemoglobin 31.6, Mean Corpuscular Hemoglobin Concent 33.5, Red Cell Distribution Width 15.7 H, Neutrophils (%) (Auto) 60.5, Lymphocytes (%) (Auto) 21.7 L, Monocytes (% ) (Auto) 12.2 H, Eosinophils (%) (Auto) 2.2, Basophils (%) (Auto) 0.6, Neutrophils # (Auto) 3.9, Lymphocytes # (Auto) 1.4 L, Monocytes # (Auto) 0.8, Eosinophils # (Auto) 0.1, Basophils # (Auto) 0.0, Calcium Level 9.4 05/21/17 05:12 Red Blood Count 4.49, Mean Corpuscular Volume 93.6, Mean Corpuscular Hemoglobin 31.3, Mean Corpuscular Hemoglobin Concent 33.4, Red Cell Distribution Width 15.6 H, Calcium Level 8.5, Aspartate Amino Transf (AST/SGOT) 25, Alanine Aminotransferase (ALT/SGPT) 34, Total Creatine Kinase 179, Alkaline Phosphatase 61, Total Bilirubin 0.5, Total Protein 6.2 L, Albumin 3.0 L Denita Menjivar [facility] May 21, 2017 10:48
[2017-05-21] MEDS: NORCO, ANEXSIA 5/325MG TABLET (HYDROcodone/ACETAMINOPHEN) PO PRN (12:36)
--- NOTE | 2017-05-21 13:16 | REP ---
CAROTID DUPLEX ULTRASOUND: 05/20/2017. Clinical history: Syncope. Findings: No prior study. Standard duplex techniques were utilized. The right common carotid shows no significant intimal thickening or plaque to the CCA. Trace amounts of plaque in the bulb, proximal ICA. No calcific plaque. The left internal carotid shows no significant intimal thickening or plaque. I do not see significant plaque at the bulb, proximal ICA on the left. [employer] RIGHT LEFT CCA Systolic 0.77 0.72 m/s ICA Systolic 0.62 0.42 m/s ICA Diastolic 0.12 0.11 m/s ECA Systolic 0.61 0.52 m/s ICA/CCA Ratio 0.80 0.59 Cranial directional flow in the vertebral arteries noted bilaterally. The Doppler waveform analysis shows no significant spectral broadening or filling in of the systolic window for either internal carotid. Impression: 1. Negative bilateral carotid duplex ultrasound, no evidence of stenosis, aneurysm or any significant plaque. No hemodynamically significant lesion. 2. Cranial direction of flow seen in both vertebral arteries. Signed by Brannon Kim MD 05/21/2017 09:04 A
[2017-05-21] MEDS: TRIHEXYPHENIDYL 2 MG TAB PO SCH ×2 (15:55→20:29)
--- NOTE | 2017-05-21 19:38 | ECHO ---
DATE OF PROCEDURE: 05/21/2017 REFERRING PHYSICIAN: Ki Townsend MD INDICATION: Syncope HEIGHT: 173 cm WEIGHT: 135 kg DIMENSIONS: IVS: 1.4 LV: 4.4 LVPW: 1.3 LA: 3.8 Aorta: 3.4 FINDINGS: The study is of rather limited technical quality corresponding to patient's body habitus. Left ventricle is of normal size and grossly preserved LV systolic function. I certainly cannot rule out subtle wall motion abnormalities with any degree of certainty. Right ventricle does not appear enlarged. Left atrium is at least mildly enlarged. Right atrium is probably normal. Aortic valve is sclerotic but appears to have grossly preserved mobility. Mitral and tricuspid valves appear normal. Pulmonic valve was not seen. No pericardial effusion is noted. Inferior vena cava is normal size. Aortic root is normal. Aortic arch and abdominal aorta were not seen. Doppler interrogation reveals no significant aortic stenosis or insufficiency. There is also no significant mitral valve disease and tricuspid valve disease. Mitral inflow pattern and tissue Doppler imaging of mitral annulus reveal probably normal diastolic function even though septal E prime velocity was reduced at 5.9 cm/s, but lateral was near normal at 10.1 cm/s. CONCLUSION 1. Study is of markedly limited technical quality. 2. Normal left ventricle (LV) size with mild left ventricular hypertrophy (LVH) and grossly preserved LV systolic function. Probably normal diastolic function. 3. Aortic sclerosis, but no significant stenosis. 4. No significant mitral and tricuspid valve disease. 5. Normal central venous pressure. 6. Unable to estimate pulmonary artery pressure. COMMENTS: Subacute bacterial endocarditis (SBE) prophylaxis is not recommended. Study does not provide obvious explanation for syncopal event. [facility]
--- NOTE | 2017-05-21 19:40 | REPUSA ---
CLINICAL HISTORY: Syncope. TECHNIQUE: MRI of the brain was performed without administration of intravenous contrast material. T1 spine echo, T2 fast spin echo, DWI and FLAIR sequences were obtained in sagittal, axial and coronal planes. FINDINGS: The sella and parasellar regions are unremarkable in appearance. The corpus callosum and cerebellar t onsils are of normal configuration and position. There are no intra or extra-axial collections. There is no mass effect or midline shift. There is no evidence of hematoma formation. There is no hydrocep halus. There is no evidence of restricted diffusion. The brain stem shows no mass effects, infarcts or hemorrhage. There are no cerebellopontine tumors. T he acoustic nerves are symmetrical. No cerebellar intra-axial pathology delineated. The fourth ventri gisell and aqueduct are normal. No abnormalities of the optic nerves are identified. There is no evidenc e of atrophic or degenerative changes. No dural or subdural masses or collections are detected. The visualized arterial structures demonstrate normal appearing flow voids. The VII and VIII nerve bu ndles are visualized and are unremarkable in appearance. There are no suspicious signal abnormalities within the infra or supratentorial space. Mucosal thickening is seen involving bilateral ethmoid and maxillary sinuses compatible with chronic sinusitis. IMPRESSION: Chronic ethmoid and maxillary sinusitis, otherwise normal MRI of the brain. Thank you for your kind referral of this patient.
--- NOTE | 2017-05-21 19:40 | REPUSA ---
CLINICAL HISTORY: Syncope. TECHNIQUE: Three dimensional [id number] angiography is performed of the [place]. The irma dy was performed without IV contrast agent. FINDINGS: The supraclinoid portions of the internal carotid arteries are of normal shape. The normal bifurcation is seen. The middle cerebral arteries are unremarkable in appearance. The posterior circu lation is visualized and shows no evidence of occlusion or aneurysm formation. The basilar tip is see n and shows no aneurysm formation. There is no evidence of beading to suggest vasculitis. IMPRESSION: MRA of the [place] is within normal limits. Thank you for your kind referral of this patient.
[2017-05-21] MEDS: ESCITALOPRAM OXALATE 10 MG TAB (LEXAPRO) PO SCH (20:29)
[2017-05-21] MEDS: tiZANidine 4 MG TAB PO SCH (20:30)
[2017-05-21] MEDS: CETIRIZINE (ZyrTEC) 10 MG TAB PO SCH (20:30)
[2017-05-21] MEDS: risperiDONE 0.5 MG TAB PO SCH (20:30)
[2017-05-21] MEDS: FAMOTIDINE 20 MG TAB PO SCH (20:31)
[2017-05-22] VITALS (7 sets, daily range): BP systolic 98–145; BP diastolic 52–90
[2017-05-22 05:41] LABS: MEAN CORPUSCULAR HGB CONC 34.2 g/dl (32.0-36.5); MEAN CORPUSCULAR VOLUME 93.5 fl (80.0-96.0); RED CELL DISTRIBUTION WIDTH 15.8 % (11.5-14.5)
[2017-05-22] MEDS: LEVOTHYROXINE 88MCG TABLET (0.088 MG) PO SCH (05:55)
[2017-05-22 05:56] LABS: ALBUMIN/GLOBULIN RATIO 0.91 (1.00-1.93); ALKALINE PHOSPHATASE 68 U/L (45-117); ALT/SGPT 33 U/L (12-78); ANION GAP 7 MEQ/L (8-16); AST/SGOT 21 U/L (15-37); BILIRUBIN,TOTAL 0.3 MG/DL (0.2-1.0); BLOOD UREA NITROGEN 15 MG/DL (7-18); CALCIUM LEVEL 8.3 MG/DL (8.5-10.1); CARBON DIOXIDE LEVEL 30 MEQ/L (21-32); CHLORIDE LEVEL 105 MEQ/L (98-107); CREATININE FOR GFR 1.26 MG/DL (0.70-1.30); GLOMERULAR FILTRATION RATE > 60.0 (>56); GLUCOSE, FASTING 97 MG/DL (70-105); SODIUM LEVEL 142 MEQ/L (136-145); TOTAL PROTEIN 6.3 GM/DL (6.4-8.2)
--- NOTE | 2017-05-22 08:19 | ECGEPIP ---
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
--- NOTE | 2017-05-22 08:49 | IPNPDOC ---
Subjective Date Seen The patient was seen on 05/22/17. Subjective Chief Complaint/HPI The patient is a 52-year-old male admitted with a reason for visit of Syncopal Episode. Events since last encounter States had approximately 30 second episode of right arm tremors yesterday that woke him out of a sleep. Echo: negative. EEG completed, results pending. ESR and CRP: WNL Constitutional: Denies: Chills, Fever, Night Sweats Eyes: Denies: Pain, Vision change Pulmonary: Denies: Dyspnea, Cough Cardiovascular: Denies: Chest Pain, Palpitations, Orthopnea, Paroxysmal Noc. Dyspnea, Lt Headedness Neurological: Reports: Other Symptoms (RUE tremor) Objective Physical Examination General Exam: Positive: Alert, No Acute Distress Eye Exam: Positive: PERRLA, Conjunctiva & lids normal, EOMI, Negative: Sclera icteric Neck Exam: Positive: Supple, Negative: JVD, thyromegaly Chest Exam: Positive: Clear to auscultation, Normal air movement Heart Exam: Positive: Rate Normal, Regular Rhythm, Normal S1, Normal S2, Negative: Murmurs, Rubs Telemetry: Positive: No significant arrhythmia Abdomen Exam: Positive: Normal bowel sounds, Soft, Negative: Tenderness, Hepatospenomegaly Extremity Exam: Positive: Other (left hand 5th digit amputation. ) Skin Exam: Positive: Nl turgor and temperature, Negative: Rash, Breakdown Neuro Exam: Positive: Normal Gait, Normal Speech, Cranial Nerves 3-12 NL, Reflexes 2+ Psych Exam: Positive: Mental status NL, Mood NL, Oriented x 3 Assessment /Plan Problems (1) Syncope and collapse Status: Acute Problem Text: 05/22/17: MRI/MRA: negative. EchoL negative. ESR and CRP negative. Blood cxs pending. EEG pending. MRI/MRA pending. EEG pending. Eval ESR, CRP, blood cxs due to recent hx of osteomyelitis. will order echo to r/o vegetation. (2) CAD (coronary artery disease) Problem Text: s/p CABG at [facility] 11/2016. Follows with [facility] for cardiology needs. (3) Osteomyelitis of finger of left hand Problem Text: s/p recent amputation of left h and 5th finger with Dr. Sundar Mejía due to osteomyelitis. (4) Migraine Status: Chronic Problem Specific Plan: Monitor Clinically Problem Text: on Depakote for Chronic STYLES and migraine. Levels stable on toxicology (5) HTN (hypertension) Status: Chronic Problem Specific Plan: Monitor Clinically (6) Hypothyroidism Status: Chronic Problem Text: TSH and T4 stable (7) Hyperlipidemia Status: Chronic Problem Specific Plan: Monitor Clinically Problem Text: Atorvastatin 40 mg (8) Depression Status: Chronic Problem Specific Plan: Monitor Clinically (9) Anxiety Status: Chronic Problem Specific Plan: Monitor Clinically Plan/VTE VTE Prophylaxis Ordered?: Yes VS, I&O, 24H, Fishbone Vital Signs/I&O Vital Signs Date Time Temp Pulse Resp B/P (MAP) Pulse Ox O2 Delivery O2 Flow Rate FiO2 05/22/17 08:00 85 132/68 (89) 97 123/80 (94) 122 131/90 (104) 05/22/17 08:00 98.8 20 94 05/22/17 04:00 Room Air I&O- Last 24 Hours up to 6 AM 05/22/17 06:00 Intake Total 1380 ml Output Total 1300 ml Balance 80 ml Laboratory Data 24H LABS Laboratory Tests 2 05/21/17 10:39: Erythrocyte Sedimentation Rate 3, C-Reactive Protein, Quantitative < 0.30 05/21/17 13:03: Total Creatine Kinase 189, Creatine Kinase MB 1.8, Creatine Kinase MB Relative Index 0.95, Troponin I < 0.02 05/22/17 04:58: Anion Gap 7L, Glomerular Filtration Rate > 60.0, Blood Urea Nitrogen 15, Creatinine 1.26, Sodium Level 142, Potassium Level 4.0, Chloride Level 105, Carbon Dioxide Level 30, Calcium Level 8.3L, Aspartate Amino Transf (AST/SGOT) 21, Alanine Aminotransferase (ALT/SGPT) 33, Alkaline Phosphatase 68, Total Bilirubin 0.3, Total Protein 6.3L, Albumin 3.0L, Albumin/Globulin Ratio 0.91L CBC/BMP Laboratory Tests 05/22/17 04:58 Red Blood Count 4.45, Mean Corpuscular Volume 93.5, Mean Corpuscular Hemoglobin 32.0, Mean Corpuscular Hemoglobin Concent 34.2, Red Cell Distribution Width 15.8 H, Calcium Level 8.3 L, Aspartate Amino Transf (AST/SGOT) 21, Alanine Aminotransferase (ALT/SGPT) 33, Alkaline Phosphatase 68, Total Bilirubin 0.3, Total Protein 6.3 L, Albumin 3.0 L Microbiology Microbiology 05/21/17 Blood Culture, Received Pending 05/21/17 Blood Culture, Received Pending Denita Menjivar [employer]PLI[employer] AUDITOR May 22, 2017 08:49
[2017-05-22] MEDS: TRIHEXYPHENIDYL 2 MG TAB PO SCH ×2 (09:17→20:28)
[2017-05-22] MEDS: ENOXAPARIN 40 MG/0.4 ML SYRINGE (J1650) SC SCH (09:17)
[2017-05-22] MEDS: FERROUS SULFATE 325MG TAB PO SCH ×2 (09:17→20:31)
[2017-05-22] MEDS: ASPIRIN ENTERIC 325 MG TAB PO SCH (09:18)
[2017-05-22] MEDS: GABAPENTIN 300 MG CAP PO SCH ×3 (09:18→20:29)
[2017-05-22] MEDS: busPIRone 10 MG TAB PO SCH ×2 (09:18→20:29)
[2017-05-22] MEDS: VITAMIN D 1,000 INTERNATIONAL UNITS TABLET PO SCH (09:18)
[2017-05-22] MEDS: PANTOPRAZOLE 40MG TAB (PROTONIX) PO SCH ×2 (09:19→20:30)
[2017-05-22] MEDS: METOPROLOL TART 25 MG TABLET PO SCH (09:19)
[2017-05-22] MEDS: OMEGA-3 1050MG CAPSULE PO SCH ×2 (09:19→20:29)
[2017-05-22] MEDS: ATORVASTATIN 20 MG TAB PO SCH (09:19)
[2017-05-22] MEDS: MULTIVITAMINS/MINERALS THERAP 1 TAB PO SCH (09:19)
[2017-05-22] MEDS: DIVALPROEX 500 MG TAB PO SCH ×2 (09:20→20:29)
[2017-05-22] MEDS ORDERED: SLF 3 ML SYR IV PRN (09:30)
[2017-05-22] MEDS: NORCO, ANEXSIA 5/325MG TABLET (HYDROcodone/ACETAMINOPHEN) PO PRN (11:36)
[2017-05-22] MEDS: SLF 3 ML SYR IV SCH ×2 (13:26→20:30)
--- NOTE | 2017-05-22 13:45 | REP ---
Right shoulder series: Three views. History: Pain with movement. Findings: The right glenohumeral and acromioclavicular joints are normally aligned. Periarticular soft tissues are unremarkable. No erosive changes seen. There is some pleural thickening along the right lateral chest wall. EKG electrodes are seen. Impression: No bony abnormality. Signed by Timothy Barragan MD 05/22/2017 04:42 P
[2017-05-22] MEDS: tiZANidine 4 MG TAB PO SCH (20:29)
[2017-05-22] MEDS: risperiDONE 0.5 MG TAB PO SCH (20:29)
[2017-05-22] MEDS: FAMOTIDINE 20 MG TAB PO SCH (20:30)
[2017-05-22] MEDS: ESCITALOPRAM OXALATE 10 MG TAB (LEXAPRO) PO SCH (20:30)
[2017-05-22] MEDS: CETIRIZINE (ZyrTEC) 10 MG TAB PO SCH (20:30)
[2017-05-23] MEDS: LEVOTHYROXINE 88MCG TABLET (0.088 MG) PO SCH (04:52)
[2017-05-23] MEDS: SLF 3 ML SYR IV SCH ×3 (04:52→21:58)
[2017-05-23 04:54] VITALS: BP_SYST 114; BP_SYST 95; BP_SYST 97; BP_DIAS 65; BP_DIAS 69; BP_DIAS 70
[2017-05-23 05:41] LABS: MEAN CORPUSCULAR HEMOGLOBIN 31.8 pg (27.0-33.0); MEAN CORPUSCULAR HGB CONC 33.8 g/dl (32.0-36.5); MEAN CORPUSCULAR VOLUME 94.1 fl (80.0-96.0); RED CELL DISTRIBUTION WIDTH 15.6 % (11.5-14.5); WHITE BLOOD COUNT 5.6 K/mm3 (4.0-10.0)
[2017-05-23 05:49] LABS: ALBUMIN 3.1 GM/DL (3.2-5.2); ALBUMIN/GLOBULIN RATIO 0.89 (1.00-1.93); ALKALINE PHOSPHATASE 63 U/L (45-117); ALT/SGPT 33 U/L (12-78); ANION GAP 10 MEQ/L (8-16); AST/SGOT 23 U/L (15-37); BILIRUBIN,TOTAL 0.3 MG/DL (0.2-1.0); BLOOD UREA NITROGEN 15 MG/DL (7-18); CALCIUM LEVEL 8.3 MG/DL (8.5-10.1); CARBON DIOXIDE LEVEL 26 MEQ/L (21-32); CHLORIDE LEVEL 108 MEQ/L (98-107); GLOMERULAR FILTRATION RATE > 60.0 (>56); GLUCOSE, FASTING 90 MG/DL (70-105); SODIUM LEVEL 144 MEQ/L (136-145); TOTAL PROTEIN 6.6 GM/DL (6.4-8.2)
[2017-05-23 08:00] VITALS: BP 111/66
--- NOTE | 2017-05-23 08:23 | EEG ---
DATE OF PROCEDURE: 05/21/2017 REFERRING PHYSICIAN: Ki Collazo MD DIAGNOSIS: Syncope. EEG NUMBER: [id number]. HISTORY: Patient is a 52-year-old man who was admitted at [facility] due to passing out spells. This EEG was done to rule out epileptic potential. He is currently taking aspirin, Lipitor, BuSpar, Depakote, gabapentin, tizanidine, trihexyphenidyl, risperidone, Lexapro, etc. TECHNICAL DESCRIPTION: This digital EEG was recorded by 21 scalp, ear and two EKG electrodes and was reviewed in bipolar and referential montages following reformatting in 10-20 international electrode placement system. INTERPRETATION: The patient was noted to be in awake and drowsy states during this EEG. Resting awake background rhythm consisted of 9 Hz alpha activity measuring 15-40 microvolts in amplitude, which was symmetric and reactive to eye opening. Attenuation of posterior dominant rhythm was seen during transition into drowsiness. Stage 1 and 2 sleep were reviewed and were symmetric bilaterally. Hyperventilation and photic stimulation were declined by the patient. No focal, lateralizing or epileptiform abnormalities were seen. No clinical or electrographic seizures were recorded. CONCLUSION: This EEG in awake, drowsy states, stage 1 and 2 sleep is within normal limits.
[2017-05-23] MEDS: ATORVASTATIN 20 MG TAB PO SCH (08:58)
[2017-05-23] MEDS: OMEGA-3 1050MG CAPSULE PO SCH ×2 (08:58→21:57)
[2017-05-23] MEDS: ENOXAPARIN 40 MG/0.4 ML SYRINGE (J1650) SC SCH (08:58)
[2017-05-23] MEDS: METOPROLOL TART 25 MG TABLET PO SCH (08:59)
[2017-05-23] MEDS: FERROUS SULFATE 325MG TAB PO SCH ×2 (08:59→21:58)
[2017-05-23] MEDS: VITAMIN D 1,000 INTERNATIONAL UNITS TABLET PO SCH (08:59)
[2017-05-23] MEDS: GABAPENTIN 300 MG CAP PO SCH ×3 (08:59→21:57)
[2017-05-23] MEDS: ASPIRIN ENTERIC 325 MG TAB PO SCH (08:59)
[2017-05-23] MEDS: TRIHEXYPHENIDYL 2 MG TAB PO SCH ×2 (09:00→21:56)
[2017-05-23] MEDS: DIVALPROEX 500 MG TAB PO SCH ×2 (09:00→21:57)
[2017-05-23] MEDS: PANTOPRAZOLE 40MG TAB (PROTONIX) PO SCH ×2 (09:00→21:57)
[2017-05-23] MEDS: MULTIVITAMINS/MINERALS THERAP 1 TAB PO SCH (09:00)
[2017-05-23] MEDS: busPIRone 10 MG TAB PO SCH ×2 (09:00→21:58)
[2017-05-23 12:00] VITALS: BP_SYST 117; BP_SYST 123; BP_DIAS 76; BP_DIAS 78; BP_DIAS 79
[2017-05-23 20:00] VITALS: BP_SYST 121; BP_SYST 124; BP_SYST 139; BP_DIAS 67; BP_DIAS 74; BP_DIAS 82
[2017-05-23] MEDS: ESCITALOPRAM OXALATE 10 MG TAB (LEXAPRO) PO SCH (21:57)
[2017-05-23] MEDS: risperiDONE 0.5 MG TAB PO SCH (21:57)
[2017-05-23] MEDS: FAMOTIDINE 20 MG TAB PO SCH (21:57)
[2017-05-23] MEDS: CETIRIZINE (ZyrTEC) 10 MG TAB PO SCH (21:57)
[2017-05-23] MEDS: tiZANidine 4 MG TAB PO SCH (21:57)
[2017-05-23 23:59] VITALS: BP 109/61
[2017-05-24 04:27] VITALS: BP_SYST 104; BP_SYST 112; BP_SYST 115; BP_DIAS 59; BP_DIAS 65; BP_DIAS 69
[2017-05-24] MEDS: LEVOTHYROXINE 88MCG TABLET (0.088 MG) PO SCH (05:06)
[2017-05-24] MEDS: SLF 3 ML SYR IV SCH (05:06)
[2017-05-24 05:42] LABS: MEAN CORPUSCULAR VOLUME 93.9 fl (80.0-96.0); RED CELL DISTRIBUTION WIDTH 15.8 % (11.5-14.5); WHITE BLOOD COUNT 5.5 K/mm3 (4.0-10.0)
[2017-05-24 06:27] LABS: ALBUMIN/GLOBULIN RATIO 0.88 (1.00-1.93); ALKALINE PHOSPHATASE 63 U/L (45-117); ALT/SGPT 32 U/L (12-78); ANION GAP 12 MEQ/L (8-16); AST/SGOT 20 U/L (15-37); BILIRUBIN,TOTAL 0.3 MG/DL (0.2-1.0); BLOOD UREA NITROGEN 13 MG/DL (7-18); CALCIUM LEVEL 8.5 MG/DL (8.5-10.1); CARBON DIOXIDE LEVEL 24 MEQ/L (21-32); CHLORIDE LEVEL 108 MEQ/L (98-107); CREATININE FOR GFR 1.09 MG/DL (0.70-1.30); GLOMERULAR FILTRATION RATE > 60.0 (>56); GLUCOSE, FASTING 94 MG/DL (70-105); POTASSIUM SERUM 3.9 MEQ/L (3.5-5.1); SODIUM LEVEL 144 MEQ/L (136-145); TOTAL PROTEIN 6.4 GM/DL (6.4-8.2)
[2017-05-24 08:00] VITALS: BP 111/65
[2017-05-24] MEDS: ENOXAPARIN 40 MG/0.4 ML SYRINGE (J1650) SC SCH (08:46)
[2017-05-24] MEDS: PANTOPRAZOLE 40MG TAB (PROTONIX) PO SCH (08:47)
[2017-05-24] MEDS: VITAMIN D 1,000 INTERNATIONAL UNITS TABLET PO SCH (08:47)
[2017-05-24] MEDS: TRIHEXYPHENIDYL 2 MG TAB PO SCH (08:47)
[2017-05-24] MEDS: GABAPENTIN 300 MG CAP PO SCH (08:47)
[2017-05-24] MEDS: FERROUS SULFATE 325MG TAB PO SCH (08:47)
[2017-05-24] MEDS: ASPIRIN ENTERIC 325 MG TAB PO SCH (08:47)
[2017-05-24] MEDS: DIVALPROEX 500 MG TAB PO SCH (08:47)
[2017-05-24 08:48] VITALS: BP 111/65
[2017-05-24] MEDS: MULTIVITAMINS/MINERALS THERAP 1 TAB PO SCH (08:48)
[2017-05-24] MEDS: ATORVASTATIN 20 MG TAB PO SCH (08:48)
[2017-05-24] MEDS: METOPROLOL TART 25 MG TABLET PO SCH (08:48)
[2017-05-24] MEDS: busPIRone 10 MG TAB PO SCH (08:48)
[2017-05-24] MEDS: OMEGA-3 1050MG CAPSULE PO SCH (08:48)
[2017-05-24 12:00] VITALS: BP_SYST 117; BP_SYST 119; BP_DIAS 65; BP_DIAS 69; BP_DIAS 72
--- NOTE | 2017-05-25 13:04 | IPN ---
DATE: 05/23/2017 The patient was seen today on rounds. He had been signed out to me by Dr. Collazo. He has a history of two episodes of syncope. He also has been having some issues with tremors in his right arm, which has then going on for few weeks. The neurologist had placed him on some medication, which he found was incompletely effective and seemed to wear off after a short time. Over the last 24 hours, he has not had any shortness of breath. No chest pains. He has not had any arrhythmias detected. He continues on a Holter monitor. He has been up out of bed in a very limited fashion. He was up with physical therapist today. His current medication regimen includes aspirin, Lipitor, vitamin D, metoprolol, multivitamin, Synthroid, BuSpar, cetirizine, Depakote, Lexapro, fish oil, iron, pantoprazole, Pepcid, risperidone, Zanaflex, trihexyphenidyl, [place] which is as needed, gabapentin, Lovenox. He also has as needed medication for Percocet. PHYSICAL EXAMINATION: On examination, his temperature is 97.5, pulse is 56, respiratory rate is 18, blood pressure 120s over 70s. Oxygen saturation 96% on room air. He is awake, alert, oriented and cooperative. He is not in any distress. He is obese. He does have an amputation of his left fifth finger, which is healing. His eyes are clear. There is no nystagmus. He does have some mild tremors of his right hand. No neck masses, tenderness or adenopathy. No carotid bruits. Lungs are clear. Heart has regular rhythm without any murmur, click or gallop. Abdomen is soft and nontender without any masses or organomegaly. Bowel sounds are active. There is no edema. He does have some mild tenderness to palpation of the left ankle. Laboratories today showed a hemoglobin of 15.3, WBCs 5600, BUN 15, creatinine 1.1, potassium 4.0. Liver functions normal. Albumin 3.1. ASSESSMENT: 1. Syncope, not recurrent. Monitors are negative. 2. Coronary artery disease. No chest pain symptoms. 3. Osteomyelitis of left fifth finger, status post amputation, seems to be doing okay 4. Hypertension, stable. 5. Hypothyroidism stable. 6. Hyperlipidemia, stable. 7. Depression and anxiety, stable. PLAN: The resident will continue on his current medication regimen. I have not made any changes today. 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
--- NOTE | 2017-05-26 08:12 | DSES ---
DATE OF ADMISSION: 05/20/2017 DATE OF DISCHARGE: 05/24/2017 DIAGNOSES: Syncopal episodes times two, no specific cause identified. Coronary artery disease status post coronary bypass times four. Hyperlipidemia. Hypothyroidism. Chronic back pain. Gastroesophageal reflux. Chronic headaches. BRIEF HISTORY AND PHYSICAL: This is a 52-year-old gentleman who came to the emergency room reporting two different episodes of syncope in the recent past. He had been seen the emergency room on 05/13 for [place] a bus. The day of this admission, he was coming out of the bathroom, had loss of consciousness and vomited. Denied having bitten his tongue or having been incontinent. He had no chest pains or palpitations. He had not been feverish, feeling like he was coming down with any illness. He had a history of coronary disease with coronary bypass. He had other chronic medical problems including hypothyroidism, chronic back pain, reflux, chronic headaches. Admission examination showed white male, no acute distress, alert, oriented times three. 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 Lungs were clear. Heart had a regular rhythm without any murmur, click or gallop. Abdomen is soft, nontender without any masses or organomegaly. Bowel sounds are active. There is no edema. He had good pedal pulses. LABORATORY DATA: Admission labs showed hemoglobin 14.6, WBCs 6400, BUN 12, creatinine 1.29, glucose 84, potassium 4.9, chloride 103, CO2 35. Chest x-ray showed prior sternotomy, benign pleural thickening, no acute disease process. Lower extremity ultrasound showed no evidence of deep venous thrombosis (DVT). CT angiogram of the chest showed no pulmonary embolism. There was a 7 mm opacifying area anterior to the anterior arch right above the aortic arch. There is a hepatic cyst that has increased in size from prior. CT of his head was negative also. There is no evidence pulmonary embolus, infiltrates or effusion on his CT angiogram of the chest. SUBSEQUENT LABS: His white count was never higher than 5600, his hemoglobin ranged between 13.8 and 15.3, a sed rate was 3. Albumin level 3.0. Liver functions were normal. Cardiac enzymes were negative. Valproic acid level was 52.6. He had two blood cultures that were negative. COURSE IN THE FACILITY: The patient was admitted to [facility] because of the two episodes of syncope within several days. He was kept on his regular medicines, he went to PCU for cardiac monitoring. He also had an MRI and MRA that were negative. He had an EEG that was negative, an echocardiogram that was negative. He has not had significant problems with headaches. Behavior was stable. I should note that his echocardiogram read by Dr. Dodson showed normal left ventricular size with mild left ventricular hypertrophy, preserved left ventricular systolic function, probably normal diastolic function, aortic sclerosis but no significant stenosis, mitral and tricuspid valves are normal. Normal central venous pressure. Unable to estimate pulmonary artery pressure. I first encountered him on rounds on 05/23 and he was quite comfortable and without any cardiac complaints and the staff had no reports of any abnormal rhythms. He was seen by physical therapy who felt that he was fine on basis to be able to return to his home. On 05/24, he was seen for followup and again reported no episodes of chest pain, syncope, shortness of breath, not having any edema or leg pain. Vitals show temperature 98.9, blood pressure 117/72, pulse 52 and regular. He is awake and alert, not in any distress. Lungs were clear. Heart: Regular rhythm without any murmur, click or gallop. Abdomen: Soft and nontender. There was no edema. Plan on discharging him home this date. He is to be on low cholesterol diet. Activity as tolerated. His medication regimen was unchanged from his home medications. He had been taking: - aspirin 325 mg daily - atorvastatin 40 mg daily - vitamin D 5000 units daily - metoprolol tartrate 25 mg daily - multivitamin daily - Synthroid 99 mcg daily - BuSpar 10 mg twice a day - cetirizine 10 mg daily - Depakote 500 mg twice a day - Lexapro 30 mg daily - fish oil 1000 mg twice daily - ferrous sulfate 325 mg daily - pantoprazole 40 mg twice a day - famotidine 40 mg at bedtime - risperidone 0.5 mg at bedtime - tizanidine 4 mg at bedtime - Artane 2 mg twice a day - oxycodone with acetaminophen one every 6 hours as needed for pain - as needed albuterol meter dose inhaler - bisacodyl 5 mg daily as needed for constipation - docusate 100 mg by mouth twice daily - gabapentin 600 mg three times a day He has an appointment already scheduled for followup with Dr. Juárez on 05/27/2017. He should return to see Bhavani Snell of the [facility] office within the next 4 weeks. It may be necessary to run a 1-month long event monitor in order to a catch any syncopal episodes. GERALD
[2017-08-03] MEDS ORDERED: OMEP40CA2 PO (17:10)
== END 2017-05-24 16:21 | disposition home or self-care (01) | DRG 204 ==
LOC: M ED 11:02 → M ED INP 16:05 → M PCU 20:38
PROVIDERS: ADMIT Internal Medicine; ATTEND Family Medicine
DX: R55 Syncope and collapse (principal); Z68.42 Body mass index [BMI] 45.0-49.9, adult; I10 Essential (primary) hypertension; E78.5 Hyperlipidemia, unspecified; E03.9 Hypothyroidism, unspecified; K21.9 Gastro-esophageal reflux disease without esophagitis; I25.10 Atherosclerotic heart disease of native coronary artery without angina pectoris; M54.9 Dorsalgia, unspecified; E66.9 Obesity, unspecified; G43.909 Migraine, unspecified, not intractable, without status migrainosus; G47.33 Obstructive sleep apnea (adult) (pediatric); Z87.442 Personal history of urinary calculi; Z99.89 Dependence on other enabling machines and devices; Z89.021 Acquired absence of right finger(s); Z95.5 Presence of coronary angioplasty implant and graft; Z79.899 Other long term (current) drug therapy; Z88.5 Allergy status to narcotic agent; Z91.048 Other nonmedicinal substance allergy status

== ENCOUNTER → 2017-06-17 | Outpatient (REF) | payer OTHER, MEDICAID ==
[~2017-06-17] MED LIST changes: +GABA600T PO; +HYDROCODONE APAP PO; +IBUP80TA PO; +LEVO88TA3 PO; +METO1TAB87 PO; +TRIH2TAB3 PO
== END ==
LOC: M SFHCPLAZ 15:50
PROVIDERS: ATTEND Nurse Practitioner Family
DX: J02.9 Acute pharyngitis, unspecified (principal); K21.9 Gastro-esophageal reflux disease without esophagitis

== ENCOUNTER → 2017-07-06 | Outpatient (REF) | payer OTHER ==
[2017-07-06 12:43] LABS: ALBUMIN 3.5 GM/DL (3.2-5.2); ALBUMIN/GLOBULIN RATIO 1.09 (1.00-1.93); ALKALINE PHOSPHATASE 71 U/L (45-117); ALT/SGPT 34 U/L (12-78); ANION GAP 6 MEQ/L (8-16); AST/SGOT 15 U/L (15-37); BILIRUBIN,TOTAL 0.4 MG/DL (0.2-1.0); BLOOD UREA NITROGEN 20 MG/DL (7-18); CALCIUM LEVEL 8.4 MG/DL (8.5-10.1); CARBON DIOXIDE LEVEL 33 MEQ/L (21-32); CHLORIDE LEVEL 101 MEQ/L (98-107); CREATININE FOR GFR 1.15 MG/DL (0.70-1.30); FREE T4 1.17 NG/DL (0.76-1.46); GLOMERULAR FILTRATION RATE > 60.0 (>56); GLUCOSE, FASTING 76 MG/DL (70-105); POTASSIUM SERUM 4.6 MEQ/L (3.5-5.1); SODIUM LEVEL 140 MEQ/L (136-145); TOTAL PROTEIN 6.7 GM/DL (6.4-8.2)
== END ==
LOC: M SFHCPLAZ 09:11
PROVIDERS: ATTEND Nurse Practitioner Family
DX: I10 Essential (primary) hypertension (principal); E78.5 Hyperlipidemia, unspecified; E03.9 Hypothyroidism, unspecified

== ENCOUNTER 2017-08-18 07:01 | Day surgery (SDC) | payer OTHER ==
[~2017-08-18] VITALS: Ht 172.7 cm; Wt 136.1 kg
[2017-08-18] MEDS ORDERED: LIDOCAINE 2% INJ 100 MG/5 ML SDV (FOR ANES.) As Ordered ONE (07:04)
[2017-08-18] MEDS ORDERED: PROPOFOL 200 MG/20 ML VIAL As Ordered ONE (07:04)
[2017-08-18] MEDS ORDERED: NS 1,000 ML IV ONE (08:00)
--- NOTE | 2017-08-18 09:39 | ROOR ---
Patient Name: Rinku Whelan Procedure Date: 08/18/2017 9:05 AM Date of : 1965 Age: 52 Room: [facility] Gender: Male Note Status: Finalized Procedure: Upper GI endoscopy Indications: Suspected gastro-esophageal reflux disease Providers: Lizandro Duron MD Referring MD: Bhavani Snell NP Requesting Provider: Medicines: Monitored Anesthesia Care Complications: No immediate complications. Procedure: Pre-Anesthesia Assessment: - Prior to the procedure, a History and Physical was performed, and patient medications and allergies were reviewed. The patient is competent. The risks and benefits of the procedure and the sedation options and risks were discussed with the patient. All questions were answered and informed consent was obtained. Patient identification and proposed procedure were verified by the physician, the nurse and the greenhouse florist in the procedure room. Mental Status Examination: alert and oriented. Airway Examination: normal oropharyngeal airway and neck mobility. Respiratory Examination: clear to auscultation. CV Examination: normal. Prophylactic Antibiotics: The patient does not require prophylactic antibiotics. Prior Anticoagulants: The patient has taken no previous anticoagulant or antiplatelet agents. ASA Grade Assessment: III - A patient with severe systemic disease. After reviewing the risks and benefits, the patient was deemed in satisfactory condition to undergo the procedure. The anesthesia plan was to use monitored anesthesia care (MAC). Immediately prior to administration of medications, the patient was re-assessed for adequacy to receive sedatives. The heart rate, respiratory rate, oxygen saturations, blood pressure, adequacy of pulmonary ventilation, and response to care were monitored throughout the procedure. The physical status of the patient was re-assessed after the procedure. The Endoscope was introduced through the mouth, and advanced to the second part of duodenum. The upper GI endoscopy was accomplished without difficulty. The patient tolerated the procedure well. Findings: Two tongues of salmon-colored mucosa were present from 39 to 41 cm. No other visible abnormalities were present. The maximum longitudinal extent of these esophageal mucosal changes was 2 cm in length. Biopsies were taken with a cold forceps for histology. Verification of patient identification for the specimen was done by the physician and nurse using the patient's name, date and medical record number. Estimated blood loss was minimal. Striped mildly erythematous mucosa without bleeding was found in the gastric antrum. Biopsies were taken with a cold forceps for histology. The duodenal bulb and second portion of the duodenum were normal. The NAVARRO capsule with delivery system was introduced through the mouth and advanced into the esophagus, such that the NAVARRO pH capsule was positioned 34 cm from the incisors, which was 6 cm proximal to the GE junction. Suction was applied to the well of the NAVARRO pH capsule to suck in the adjacent mucosa of the esophagus using the external vacuum pump set at a minimum vacuum pressure of 550 mmHg for 30 seconds. The NAVARRO pH capsule was then deployed by depressing the plunger on top of the handle to advance the locking pin into the mucosa, thereby attaching the capsule to the esophagus. The plunger was then rotated a quarter turn clockwise to release the capsule from the delivery system. The delivery system was then withdrawn. Endoscopy was utilized for placement of the probe only. Impression: - Talpa-colored mucosa classified as Diallo's stage C0-M2 per [place] criteria. Biopsied. - Erythematous mucosa in the antrum. Biopsied. - Normal duodenal bulb and second portion of the duodenum. - The NAVARRO pH capsule was positioned 34 cm from the incisors, which was 6 cm proximal to the GE junction. Recommendation: - Patient has a contact number available for emergencies. The signs and symptoms of potential delayed complications were discussed with the patient. Return to normal activities tomorrow. Written discharge instructions were provided to the patient. - Resume previous diet. - Continue present medications. - Await pathology results. - Return to GI clinic as previously scheduled on 09/14/2017 at 9:00 AM. - Return to primary care physician. Lizandro Duron MD Lizandro Duron MD 08/18/2017 9:39:01 AM This report has been signed electronically. Number of Addenda: 0 Note Initiated On: 08/18/2017 9:05 AM Estimated Blood Loss: Estimated blood loss was minimal.
[2017-08-18 09:50] VITALS: BP 124/80
== END 2017-08-18 10:04 | disposition home or self-care (01) ==
LOC: M OPP 07:01 → EDSTATUS 08-31 10:55
PROVIDERS: ATTEND Internal Medicine Gastroenterology
DX: K21.9 Gastro-esophageal reflux disease without esophagitis (principal); R12 Heartburn; K31.89 Other diseases of stomach and duodenum; K29.70 Gastritis, unspecified, without bleeding; I10 Essential (primary) hypertension; E78.5 Hyperlipidemia, unspecified; D50.9 Iron deficiency anemia, unspecified; Z95.2 Presence of prosthetic heart valve; M10.9 Gout, unspecified; E03.9 Hypothyroidism, unspecified; R11.0 Nausea; Z86.11 Personal history of tuberculosis; M19.90 Unspecified osteoarthritis, unspecified site; L30.9 Dermatitis, unspecified; M41.9 Scoliosis, unspecified; F41.9 Anxiety disorder, unspecified; F32.9 Major depressive disorder, single episode, unspecified; R51 Headache; J45.909 Unspecified asthma, uncomplicated; G47.30 Sleep apnea, unspecified; E66.9 Obesity, unspecified; Z87.891 Personal history of nicotine dependence; Z88.5 Allergy status to narcotic agent; Z91.048 Other nonmedicinal substance allergy status; Z79.82 Long term (current) use of aspirin; Z79.899 Other long term (current) drug therapy

== ENCOUNTER 2017-09-02 10:45 | Outpatient (RCR) | payer OTHER | END 2017-09-03 | LOC: M PT 10:45 | PROVIDERS: ATTEND Physician Assistant Surgical | DX: M25.562 Pain in left knee (principal); M22.42 Chondromalacia patellae, left knee ==

== ENCOUNTER 2017-09-05 11:42 | Emergency (ER) | payer OTHER ==
[~2017-09-05] VITALS: Ht 172.7 cm; Wt 138.6 kg
[2017-09-05] MEDS ORDERED: ZOFR8TAB PO (11:53)
[2017-09-05] MEDS ORDERED: SUCR1TA PO (11:53)
[2017-09-05] MEDS ORDERED: NS 1,000 ML IV ONE (12:15)
[2017-09-05] MEDS ORDERED: GI COCKTAIL 50ML BTL(HYOSCYAMINE/MAALOX/LIDOCAINE VISCOUS)(1:3:1) PO ONE (12:15)
[2017-09-05] MEDS ORDERED: ONDANSETRON 4MG/2ML VIAL (J2405) IV ONE (12:15)
[2017-09-05] MEDS ORDERED: PANTOPRAZOLE 40MG INJ (PROTONIX) (C9113) IV ONE (12:15)
[2017-09-05 12:42] LABS: BASO # 0.1 10^3/uL (0.0-0.2); BASO % 0.8 % (0.0-1.0); EOS # 0.1 10^3/uL (0.0-0.50); EOS % 0.9 % (0.0-3.0); IMMATURE GRANULOCYTE % 1.3 % (0-0); LYMPH # 1.6 10^3/uL (1.5-4.5); LYMPH % 25.7 % (24.0-44.0); MEAN CORPUSCULAR HEMOGLOBIN 31.3 pg (27.0-33.0); MEAN CORPUSCULAR HGB CONC 33.3 g/dl (32.0-36.5); MEAN CORPUSCULAR VOLUME 94.2 fl (80.0-96.0); MONO # 1.2 10^3/uL (0.0-0.8); MONO % 18.2 % (0.0-5.0); NEUTROPHILS # 3.4 10^3/uL (1.8-7.7); NEUTROPHILS % 53.1 % (36.0-66.0); PLATELET COUNT, AUTOMATED 219 10^3/uL (150-450); RED CELL DISTRIBUTION WIDTH 13.8 % (11.5-14.5); WHITE BLOOD COUNT 6.4 10^3/uL (4.0-10.0)
[2017-09-05 12:49] LABS: ALBUMIN 3.4 GM/DL (3.2-5.2); ALBUMIN/GLOBULIN RATIO 0.87 (1.00-1.93); ALKALINE PHOSPHATASE 69 U/L (45-117); ALT/SGPT 30 U/L (12-78); ANION GAP 2 MEQ/L (8-16); AST/SGOT 18 U/L (7-37); BILIRUBIN,DIRECT < 0.1 MG/DL (0.0-0.2); BILIRUBIN,TOTAL 0.3 MG/DL (0.2-1.0); BLOOD UREA NITROGEN 12 MG/DL (7-18); CALCIUM LEVEL 8.8 MG/DL (8.5-10.1); CARBON DIOXIDE LEVEL 33 MEQ/L (21-32); CHLORIDE LEVEL 104 MEQ/L (98-107); CREATININE FOR GFR 1.17 MG/DL (0.70-1.30); GLOMERULAR FILTRATION RATE > 60.0 (>56); GLUCOSE, FASTING 95 MG/DL (70-105); POTASSIUM SERUM 4.7 MEQ/L (3.5-5.1); SODIUM LEVEL 139 MEQ/L (136-145); TOTAL PROTEIN 7.3 GM/DL (6.4-8.2)
[2017-09-05 14:20] VITALS: BP 119/78
== END 2017-09-05 14:24 | disposition home or self-care (01) ==
LOC: M ED 11:42
DX: K29.70 Gastritis, unspecified, without bleeding (principal); I51.9 Heart disease, unspecified; I10 Essential (primary) hypertension; K21.9 Gastro-esophageal reflux disease without esophagitis; Z95.1 Presence of aortocoronary bypass graft; Z87.891 Personal history of nicotine dependence; Z82.49 Family history of ischemic heart disease and other diseases of the circulatory system; Z79.82 Long term (current) use of aspirin; Z79.899 Other long term (current) drug therapy; Z88.5 Allergy status to narcotic agent; Z91.89 Other specified personal risk factors, not elsewhere classified
CPT/HCPCS: 80048; 80076; 83690; 85025; 96374; 96375; 99284; C9113; J2405

== ENCOUNTER 2017-09-07 13:55 | Emergency (ER) | payer MEDICAID, OTHER ==
[~2017-09-07] VITALS: Ht 172.7 cm; Wt 138.6 kg
[~2017-09-07 13:55] MED LIST changes: +SUCR1TA PO; +ZOFR8TAB PO
[2017-09-07] MEDS ORDERED: INDO50CA (14:11)
[2017-09-07] MEDS ORDERED: NS 1,000 ML IV ONE (16:15)
[2017-09-07] MEDS ORDERED: PANTOPRAZOLE 40MG INJ (PROTONIX) (C9113) IV ONE (16:30)
[2017-09-07] MEDS ORDERED: PROMETHAZINE INJ 25 MG/ML VIAL (J2550) IV ONE (16:30)
[2017-09-07 16:47] LABS: BASO % 0.4 % (0.0-1.0); EOS # 0.1 10^3/uL (0.0-0.50); EOS % 0.7 % (0.0-3.0); IMMATURE GRANULOCYTE % 0.7 % (0-0); LYMPH # 1.8 10^3/uL (1.5-4.5); LYMPH % 20.2 % (24.0-44.0); MEAN CORPUSCULAR HEMOGLOBIN 31.1 pg (27.0-33.0); MEAN CORPUSCULAR HGB CONC 33.5 g/dl (32.0-36.5); MEAN CORPUSCULAR VOLUME 92.7 fl (80.0-96.0); MONO # 1.4 10^3/uL (0.0-0.8); MONO % 15.1 % (0.0-5.0); NEUTROPHILS # 5.7 10^3/uL (1.8-7.7); NEUTROPHILS % 62.9 % (36.0-66.0); PLATELET COUNT, AUTOMATED 203 10^3/uL (150-450); RED CELL DISTRIBUTION WIDTH 13.9 % (11.5-14.5); WHITE BLOOD COUNT 9.1 10^3/uL (4.0-10.0)
[2017-09-07 17:02] LABS: INR 1.01
[2017-09-07 17:04] LABS: ALBUMIN 3.6 GM/DL (3.2-5.2); ALBUMIN/GLOBULIN RATIO 1.06 (1.00-1.93); ALKALINE PHOSPHATASE 69 U/L (45-117); ALT/SGPT 35 U/L (12-78); ANION GAP 7 MEQ/L (8-16); AST/SGOT 36 U/L (7-37); BILIRUBIN,DIRECT < 0.1 MG/DL (0.0-0.2); BILIRUBIN,TOTAL 0.5 MG/DL (0.2-1.0); BLOOD UREA NITROGEN 12 MG/DL (7-18); CALCIUM LEVEL 8.8 MG/DL (8.5-10.1); CARBON DIOXIDE LEVEL 29 MEQ/L (21-32); CHLORIDE LEVEL 103 MEQ/L (98-107); CREATININE FOR GFR 1.28 MG/DL (0.70-1.30); GLOMERULAR FILTRATION RATE > 60.0 (>56); GLUCOSE, FASTING 82 MG/DL (70-105); POTASSIUM SERUM 4.9 MEQ/L (3.5-5.1); SODIUM LEVEL 139 MEQ/L (136-145)
[2017-09-07] MEDS ORDERED: ISOVUE-370 76% 100ML VIAL (Q9967) As Ordered ONE (17:10)
[2017-09-07 18:15] VITALS: BP 117/56
[2017-09-07] MEDS ORDERED: PROT1TAB2 PO (18:20)
--- NOTE | 2017-09-07 18:36 | REP ---
REASON FOR EXAM: Rectal bleeding. COMPARISON: Non contrast enhanced examination of 07/28/2016. CONTRAST: Contrast used today 100 mL Isovue-370. The lung bases are essentially clear and unchanged. Minimal subsegmental atelectatic change is seen in the right lower lobe. The liver, gallbladder, spleen, pancreas, adrenal glands, and kidneys are essentially unchanged. The abdominal aorta and paraaortic regions are essentially unchanged. Again remaining in normal limits. There is a cyst in the right upper quadrant of hepatic origin which is unchanged. There is no free fluid or free air. There is no intraabdominal mass or adenopathy. The bowel loops and their mesenteries are within normal limits. CT PELVIS: The bowel loops and their mesenteries are within normal limits. There is no mass or adenopathy. There is no free fluid or free air. Bone window throughout the examination shows the osseous structures to be stable and intact. IMPRESSION: There is no evidence of acute intraabdominal or intrapelvic disease. There is no significant change compared to the prior exam. The findings as described above. Signed by John Fry DO 09/07/2017 06:39 P
== END 2017-09-07 18:47 | disposition home or self-care (01) ==
LOC: M ED 13:55
DX: K92.1 Melena (principal); Z87.891 Personal history of nicotine dependence; Z79.82 Long term (current) use of aspirin; Z79.899 Other long term (current) drug therapy; Z88.5 Allergy status to narcotic agent; Z91.89 Other specified personal risk factors, not elsewhere classified
CPT/HCPCS: 36415; 74177; 80048; 80076; 83605; 83690; 85025; 85610; 85730; 96374; 96375; 99284; C9113; Q9967

== ENCOUNTER 2017-09-09 11:33 | Outpatient (RCR) | payer OTHER | END 2017-10-04 | LOC: M PT 11:33 | DX: Z51.89 Encounter for other specified aftercare (principal); M22.2X2 Patellofemoral disorders, left knee ==

== ENCOUNTER 2017-10-02 16:17 | Emergency (ER) | payer OTHER, MEDICAID ==
[2017-10-02] MEDS: NS 1,000 ML IV (17:39)
[2017-10-02] MEDS: ONDANSETRON 4MG/2ML VIAL (J2405) IV (17:40)
[2017-10-02] MEDS: KETOROLAC 30 MG/ML VIAL (J1885) IV (17:40)
[2017-10-02] MEDS: PANTOPRAZOLE 40MG INJ (PROTONIX) (C9113) IV (17:40)
[2017-10-02 17:50] LABS: BASO % 0.3 % (0.0-1.0); EOS # 0.1 10^3/uL (0.0-0.50); EOS % 1.1 % (0.0-3.0); IMMATURE GRANULOCYTE # 0.1 10^3/uL (0-0); IMMATURE GRANULOCYTE % 0.8 % (0-0); LYMPH # 1.7 10^3/uL (1.5-4.5); MEAN CORPUSCULAR HEMOGLOBIN 31.2 pg (27.0-33.0); MEAN CORPUSCULAR HGB CONC 33.5 g/dl (32.0-36.5); MONO # 1.3 10^3/uL (0.0-0.8); MONO % 19.1 % (0.0-5.0); NEUTROPHILS # 3.5 10^3/uL (1.8-7.7); NEUTROPHILS % 52.7 % (36.0-66.0); PLATELET COUNT, AUTOMATED 220 10^3/uL (150-450); RED CELL DISTRIBUTION WIDTH 14.4 % (11.5-14.5); WHITE BLOOD COUNT 6.6 10^3/uL (4.0-10.0)
[2017-10-02 17:54] LABS: KETONE, URINE AUTO RFX NEGATIVE (NEGATIVE); LEUKOCYTE ESTERASE UR AUTO RFX NEGATIVE (NEGATIVE); NITRITE, URINE AUTO RFX NEGATIVE (NEGATIVE); RBC, URINE AUTO RFX 2 /HPF (0-3); SPECIFIC GRAVITY UR AUTO RFX 1.014 (1.002-1.035); SQUAM EPITHELIAL CELL UR AURFX 0 /HPF (0-6); WBC, URINE AUTO RFX 0 /HPF (0-3)
[2017-10-02 18:17] LABS: ALBUMIN 3.8 GM/DL (3.2-5.2); ALBUMIN/GLOBULIN RATIO 1.19 (1.00-1.93); ALKALINE PHOSPHATASE 76 U/L (45-117); ALT/SGPT 29 U/L (12-78); ANION GAP 6 MEQ/L (8-16); AST/SGOT 17 U/L (7-37); BILIRUBIN,DIRECT 0.1 MG/DL (0.0-0.2); BILIRUBIN,TOTAL 0.4 MG/DL (0.2-1.0); BLOOD UREA NITROGEN 11 MG/DL (7-18); CARBON DIOXIDE LEVEL 31 MEQ/L (21-32); CHLORIDE LEVEL 104 MEQ/L (98-107); GLOMERULAR FILTRATION RATE > 60.0 (>56); GLUCOSE, FASTING 86 MG/DL (70-105); POTASSIUM SERUM 4.3 MEQ/L (3.5-5.1); SODIUM LEVEL 141 MEQ/L (136-145)
[2017-10-02] MEDS ORDERED: ISOVUE-370 76% 100ML VIAL (Q9967) As Ordered (18:19)
[2017-10-02] MEDS: GI COCKTAIL 50ML BTL(HYOSCYAMINE/MAALOX/LIDOCAINE VISCOUS)(1:3:1) PO (19:15)
== END 2017-10-02 20:32 | disposition home or self-care (01) ==
LOC: M ED 16:17
DX: K29.00 Acute gastritis without bleeding (principal); I25.10 Atherosclerotic heart disease of native coronary artery without angina pectoris; E55.9 Vitamin D deficiency, unspecified; I10 Essential (primary) hypertension; Z87.442 Personal history of urinary calculi; K21.9 Gastro-esophageal reflux disease without esophagitis; J45.909 Unspecified asthma, uncomplicated; G47.30 Sleep apnea, unspecified; E03.9 Hypothyroidism, unspecified; G89.29 Other chronic pain; M54.9 Dorsalgia, unspecified; F41.9 Anxiety disorder, unspecified; F32.9 Major depressive disorder, single episode, unspecified; K76.89 Other specified diseases of liver; H40.9 Unspecified glaucoma; Z87.891 Personal history of nicotine dependence; Z82.49 Family history of ischemic heart disease and other diseases of the circulatory system; Z79.82 Long term (current) use of aspirin; Z79.899 Other long term (current) drug therapy; Z88.5 Allergy status to narcotic agent; Z91.89 Other specified personal risk factors, not elsewhere classified
CPT/HCPCS: C9113

== ENCOUNTER 2017-10-09 14:28 | Emergency (ER) | payer OTHER ==
[2017-10-09] MEDS: ASPIRIN 81 MG CHEW TABLET PO (15:00)
[2017-10-09 15:09] LABS: BASO % 0.3 % (0.0-1.0); EOS # 0.1 10^3/uL (0.0-0.50); EOS % 0.8 % (0.0-3.0); HEMOGLOBIN 15.1 g/dl (14.0-18.0); IMMATURE GRANULOCYTE # 0.1 10^3/uL (0-0); IMMATURE GRANULOCYTE % 0.7 % (0-0); LYMPH # 1.6 10^3/uL (1.5-4.5); LYMPH % 21.4 % (24.0-44.0); MEAN CORPUSCULAR HEMOGLOBIN 31.1 pg (27.0-33.0); MEAN CORPUSCULAR HGB CONC 33.6 g/dl (32.0-36.5); MEAN CORPUSCULAR VOLUME 92.8 fl (80.0-96.0); MONO # 1.3 10^3/uL (0.0-0.8); MONO % 17.5 % (0.0-5.0); NEUTROPHILS # 4.5 10^3/uL (1.8-7.7); NEUTROPHILS % 59.3 % (36.0-66.0); PLATELET COUNT, AUTOMATED 199 10^3/uL (150-450); RED BLOOD COUNT 4.85 10^6/uL (4.30-6.10); RED CELL DISTRIBUTION WIDTH 14.3 % (11.5-14.5); WHITE BLOOD COUNT 7.6 10^3/uL (4.0-10.0)
[2017-10-09] MEDS: PANTOPRAZOLE 40MG INJ (PROTONIX) (C9113) IV (15:11)
[2017-10-09] MEDS: GI COCKTAIL 50ML BTL(HYOSCYAMINE/MAALOX/LIDOCAINE VISCOUS)(1:3:1) PO (15:11)
[2017-10-09] MEDS: NS 1,000 ML IV (15:12)
[2017-10-09 15:18] LABS: INR 1.02; PROTHROMBIN TIME 13.5 SECONDS (12.4-14.5)
[2017-10-09 15:36] LABS: ALBUMIN 3.6 GM/DL (3.2-5.2); ALBUMIN/GLOBULIN RATIO 1.13 (1.00-1.93); ALKALINE PHOSPHATASE 73 U/L (45-117); ALT/SGPT 30 U/L (12-78); ANION GAP 5 MEQ/L (8-16); AST/SGOT 21 U/L (7-37); BILIRUBIN,DIRECT < 0.1 MG/DL (0.0-0.2); BILIRUBIN,TOTAL 0.4 MG/DL (0.2-1.0); BLOOD UREA NITROGEN 14 MG/DL (7-18); CALCIUM LEVEL 8.6 MG/DL (8.5-10.1); CARBON DIOXIDE LEVEL 32 MEQ/L (21-32); CHLORIDE LEVEL 102 MEQ/L (98-107); CPK CREATINE PHOSPHOKINASE 162 U/L (39-308); CREATININE FOR GFR 1.29 MG/DL (0.70-1.30); GLOMERULAR FILTRATION RATE > 60.0 (>56); GLUCOSE, FASTING 93 MG/DL (70-105); LIPASE 143 U/L (73-393); POTASSIUM SERUM 4.2 MEQ/L (3.5-5.1); SODIUM LEVEL 139 MEQ/L (136-145); TOTAL PROTEIN 6.8 GM/DL (6.4-8.2); TROPONIN I < 0.02 NG/ML (< 0.10)
[2017-10-09 15:37] LABS: CK-MB VALUE MASS 1.2 NG/ML (0.0-3.6); MB/CK RELATIVE INDEX 0.74 (< OR =4)
== END 2017-10-09 16:40 | disposition home or self-care (01) ==
LOC: M ED 14:28
DX: K21.0 Gastro-esophageal reflux disease with esophagitis (principal); R00.1 Bradycardia, unspecified; E11.9 Type 2 diabetes mellitus without complications; I10 Essential (primary) hypertension; E78.5 Hyperlipidemia, unspecified; Z95.1 Presence of aortocoronary bypass graft; Z79.82 Long term (current) use of aspirin; Z79.899 Other long term (current) drug therapy; Z88.5 Allergy status to narcotic agent; Z91.89 Other specified personal risk factors, not elsewhere classified
CPT/HCPCS: C9113

== ENCOUNTER 2017-10-13 12:19 | Day surgery (SDC) | payer OTHER ==
[2017-10-13] MEDS ORDERED: NS 1,000 ML IV (13:00)
[2017-10-13] MEDS ORDERED: LIDOCAINE 2% INJ 100 MG/5 ML SDV (FOR ANES.) As Ordered (13:37)
[2017-10-13] MEDS ORDERED: PROPOFOL 200 MG/20 ML VIAL As Ordered ×2 (13:37→13:49)
== END 2017-10-13 14:27 | disposition home or self-care (01) ==
LOC: M OPP 12:19
DX: D12.0 Benign neoplasm of cecum (principal); D12.3 Benign neoplasm of transverse colon; K63.3 Ulcer of intestine; K92.1 Melena; K57.30 Diverticulosis of large intestine without perforation or abscess without bleeding; Z86.010 Personal history of colon polyps; R07.89 Other chest pain; K21.0 Gastro-esophageal reflux disease with esophagitis; G47.30 Sleep apnea, unspecified; M19.90 Unspecified osteoarthritis, unspecified site; M54.9 Dorsalgia, unspecified; E03.9 Hypothyroidism, unspecified; D50.0 Iron deficiency anemia secondary to blood loss (chronic); F32.9 Major depressive disorder, single episode, unspecified; I10 Essential (primary) hypertension; E78.00 Pure hypercholesterolemia, unspecified; Z79.82 Long term (current) use of aspirin; Z79.899 Other long term (current) drug therapy; Z88.5 Allergy status to narcotic agent; Z91.048 Other nonmedicinal substance allergy status; Z87.39 Personal history of other diseases of the musculoskeletal system and connective tissue; Z86.11 Personal history of tuberculosis; Z95.1 Presence of aortocoronary bypass graft; Z95.4 Presence of other heart-valve replacement; Z87.442 Personal history of urinary calculi
CPT/HCPCS: 45380

== ENCOUNTER 2017-10-27 18:18 | Emergency (ER) | payer OTHER, MEDICAID ==
[2017-10-27 18:57] LABS: BASO % 0.6 % (0.0-1.0); EOS # 0.1 10^3/uL (0.0-0.50); EOS % 1.1 % (0.0-3.0); HEMATOCRIT 44.3 % (42.0-52.0); HEMOGLOBIN 14.9 g/dl (14.0-18.0); IMMATURE GRANULOCYTE % 0.5 % (0-0); LYMPH # 1.6 10^3/uL (1.5-4.5); LYMPH % 25.9 % (24.0-44.0); MEAN CORPUSCULAR HEMOGLOBIN 31.1 pg (27.0-33.0); MEAN CORPUSCULAR HGB CONC 33.6 g/dl (32.0-36.5); MEAN CORPUSCULAR VOLUME 92.5 fl (80.0-96.0); MONO # 1.2 10^3/uL (0.0-0.8); MONO % 19.3 % (0.0-5.0); NEUTROPHILS # 3.3 10^3/uL (1.8-7.7); NEUTROPHILS % 52.6 % (36.0-66.0); PLATELET COUNT, AUTOMATED 180 10^3/uL (150-450); RED BLOOD COUNT 4.79 10^6/uL (4.30-6.10); RED CELL DISTRIBUTION WIDTH 13.5 % (11.5-14.5); WHITE BLOOD COUNT 6.3 10^3/uL (4.0-10.0)
[2017-10-27] MEDS: NS 1,000 ML IV (18:58)
[2017-10-27 19:14] LABS: INR 1.09; PROTHROMBIN TIME 14.3 SECONDS (12.4-14.5)
[2017-10-27 19:20] LABS: ALBUMIN 3.6 GM/DL (3.2-5.2); ALBUMIN/GLOBULIN RATIO 1.13 (1.00-1.93); ALKALINE PHOSPHATASE 76 U/L (45-117); ALT/SGPT 27 U/L (12-78); ANION GAP 4 MEQ/L (8-16); AST/SGOT 25 U/L (7-37); BILIRUBIN,DIRECT 0.2 MG/DL (0.0-0.2); BILIRUBIN,TOTAL 0.5 MG/DL (0.2-1.0); BLOOD UREA NITROGEN 12 MG/DL (7-18); CALCIUM LEVEL 8.9 MG/DL (8.5-10.1); CARBON DIOXIDE LEVEL 33 MEQ/L (21-32); CHLORIDE LEVEL 103 MEQ/L (98-107); CREATININE FOR GFR 1.36 MG/DL (0.70-1.30); GLOMERULAR FILTRATION RATE 59.1 (>56); GLUCOSE, FASTING 89 MG/DL (70-100); LIPASE 128 U/L (73-393); POTASSIUM SERUM 4.2 MEQ/L (3.5-5.1); SODIUM LEVEL 140 MEQ/L (136-145); TOTAL PROTEIN 6.8 GM/DL (6.4-8.2)
== END 2017-10-27 20:07 | disposition home or self-care (01) ==
LOC: M ED 18:18
DX: K29.50 Unspecified chronic gastritis without bleeding (principal); R00.1 Bradycardia, unspecified; I25.10 Atherosclerotic heart disease of native coronary artery without angina pectoris; I10 Essential (primary) hypertension; K21.9 Gastro-esophageal reflux disease without esophagitis; F32.9 Major depressive disorder, single episode, unspecified; E66.9 Obesity, unspecified; G47.30 Sleep apnea, unspecified; Z95.1 Presence of aortocoronary bypass graft; Z79.82 Long term (current) use of aspirin; Z79.899 Other long term (current) drug therapy; Z88.5 Allergy status to narcotic agent; Z91.89 Other specified personal risk factors, not elsewhere classified
CPT/HCPCS: 93005

== ENCOUNTER → 2017-11-04 | Outpatient (REF) | payer OTHER ==
[2017-11-04 16:20] LABS: ALBUMIN 3.7 GM/DL (3.2-5.2); ALBUMIN/GLOBULIN RATIO 1.23 (1.00-1.93); ALKALINE PHOSPHATASE 67 U/L (45-117); ALT/SGPT 30 U/L (12-78); ANION GAP 5 MEQ/L (8-16); AST/SGOT 25 U/L (7-37); BILIRUBIN,TOTAL 0.4 MG/DL (0.2-1.0); BLOOD UREA NITROGEN 16 MG/DL (7-18); CALCIUM LEVEL 8.6 MG/DL (8.5-10.1); CARBON DIOXIDE LEVEL 30 MEQ/L (21-32); CHLORIDE LEVEL 104 MEQ/L (98-107); GLOMERULAR FILTRATION RATE > 60.0 (>56); GLUCOSE, FASTING 86 MG/DL (70-100); POTASSIUM SERUM 4.5 MEQ/L (3.5-5.1); SODIUM LEVEL 139 MEQ/L (136-145); THYROID STIMULATING HORMONE 0.617 uIU/ML (0.358-3.740); TOTAL PROTEIN 6.7 GM/DL (6.4-8.2)
== END ==
LOC: M SFHCPLAZ 14:00
DX: E03.9 Hypothyroidism, unspecified (principal); I10 Essential (primary) hypertension

== ENCOUNTER 2017-11-18 20:18 | Emergency (ER) | payer OTHER, MEDICAID ==
[2017-11-18] MEDS: NITROGLYCERIN 0.4 MG SUBL TABLET SL (21:11)
[2017-11-18 21:17] LABS: BASO % 0.4 % (0.0-1.0); EOS # 0.1 10^3/uL (0.0-0.50); EOS % 1.3 % (0.0-3.0); HEMATOCRIT 46.8 % (42.0-52.0); HEMOGLOBIN 15.7 g/dl (14.0-18.0); IMMATURE GRANULOCYTE % 0.4 % (0-3.0); LYMPH # 1.9 10^3/uL (1.5-4.5); LYMPH % 26.9 % (24.0-44.0); MEAN CORPUSCULAR HGB CONC 33.5 g/dl (32.0-36.5); MEAN CORPUSCULAR VOLUME 92.5 fl (80.0-96.0); MONO # 1.2 10^3/uL (0.0-0.8); MONO % 16.4 % (0.0-5.0); NEUTROPHILS # 3.9 10^3/uL (1.8-7.7); NEUTROPHILS % 54.6 % (36.0-66.0); PLATELET COUNT, AUTOMATED 208 10^3/uL (150-450); RED BLOOD COUNT 5.06 10^6/uL (4.30-6.10); RED CELL DISTRIBUTION WIDTH 13.8 % (11.5-14.5); WHITE BLOOD COUNT 7.2 10^3/uL (4.0-10.0)
[2017-11-18 21:26] LABS: PROTHROMBIN TIME 13.3 SECONDS (12.4-14.5)
[2017-11-18 21:27] LABS: PARTIAL THROMBOPLASTIN TIME 27.7 SECONDS (26.8-37.9)
[2017-11-18 21:49] LABS: ALBUMIN 3.7 GM/DL (3.2-5.2); ALBUMIN/GLOBULIN RATIO 1.23 (1.00-1.93); ALKALINE PHOSPHATASE 75 U/L (45-117); ALT/SGPT 27 U/L (12-78); ANION GAP 7 MEQ/L (8-16); AST/SGOT 21 U/L (7-37); BILIRUBIN,DIRECT < 0.1 MG/DL (0.0-0.2); BILIRUBIN,TOTAL 0.3 MG/DL (0.2-1.0); BLOOD UREA NITROGEN 16 MG/DL (7-18); CALCIUM LEVEL 8.8 MG/DL (8.5-10.1); CARBON DIOXIDE LEVEL 31 MEQ/L (21-32); CHLORIDE LEVEL 103 MEQ/L (98-107); CK-MB VALUE MASS 1.4 NG/ML (0.0-3.6); CPK CREATINE PHOSPHOKINASE 193 U/L (39-308); CREATININE FOR GFR 1.14 MG/DL (0.70-1.30); GLOMERULAR FILTRATION RATE > 60.0 (>56); GLUCOSE, FASTING 93 MG/DL (70-100); LIPASE 150 U/L (73-393); MB/CK RELATIVE INDEX 0.72 (< OR =4); POTASSIUM SERUM 4.5 MEQ/L (3.5-5.1); SODIUM LEVEL 141 MEQ/L (136-145); TOTAL PROTEIN 6.7 GM/DL (6.4-8.2); TROPONIN I < 0.02 NG/ML (< 0.10)
[2017-11-18] MEDS ORDERED: ISOVUE-370 76% 100ML VIAL (Q9967) As Ordered (22:54)
[2017-11-19 02:34] LABS: CPK CREATINE PHOSPHOKINASE 171 U/L (39-308); TROPONIN I < 0.02 NG/ML (< 0.10)
[2017-11-19 02:35] LABS: CK-MB VALUE MASS 1.1 NG/ML (0.0-3.6); MB/CK RELATIVE INDEX 0.64 (< OR =4)
== END 2017-11-19 02:51 | disposition home or self-care (01) ==
LOC: M ED 11-19 02:51
DX: R00.1 Bradycardia, unspecified (principal); R07.89 Other chest pain; I25.10 Atherosclerotic heart disease of native coronary artery without angina pectoris; G47.30 Sleep apnea, unspecified; F32.9 Major depressive disorder, single episode, unspecified; F41.9 Anxiety disorder, unspecified; E55.9 Vitamin D deficiency, unspecified; Z95.1 Presence of aortocoronary bypass graft; Z87.891 Personal history of nicotine dependence; Z82.49 Family history of ischemic heart disease and other diseases of the circulatory system; Z79.82 Long term (current) use of aspirin; Z79.899 Other long term (current) drug therapy; Z88.5 Allergy status to narcotic agent; Z91.89 Other specified personal risk factors, not elsewhere classified
CPT/HCPCS: Q9967

== ENCOUNTER 2017-11-26 09:37 | Emergency (ER) | payer OTHER, MEDICAID | END 2017-11-26 11:53 | disposition home or self-care (01) | LOC: M ED 09:37 | DX: M79.661 Pain in right lower leg (principal); I10 Essential (primary) hypertension; I25.10 Atherosclerotic heart disease of native coronary artery without angina pectoris; E78.5 Hyperlipidemia, unspecified; F41.9 Anxiety disorder, unspecified; F33.9 Major depressive disorder, recurrent, unspecified; Z79.899 Other long term (current) drug therapy; Z79.82 Long term (current) use of aspirin; Z79.890 Hormone replacement therapy; Z88.5 Allergy status to narcotic agent; Z91.048 Other nonmedicinal substance allergy status; Z87.891 Personal history of nicotine dependence | CPT/HCPCS: 93971 ==

== ENCOUNTER 2017-12-01 18:56 | Emergency (ER) | payer OTHER | END 2017-12-01 20:33 | disposition home or self-care (01) | LOC: M ED 18:56 | DX: J02.9 Acute pharyngitis, unspecified (principal); I10 Essential (primary) hypertension; E03.9 Hypothyroidism, unspecified; E66.9 Obesity, unspecified; Z79.899 Other long term (current) drug therapy; Z79.82 Long term (current) use of aspirin; Z79.890 Hormone replacement therapy; Z88.5 Allergy status to narcotic agent; Z91.048 Other nonmedicinal substance allergy status; Z87.891 Personal history of nicotine dependence | CPT/HCPCS: 87880 ==

== ENCOUNTER → 2017-12-15 | Outpatient (REF) | payer OTHER, MEDICAID ==
[2017-12-15 15:02] LABS: BASO # 0.1 10^3/uL (0.0-0.2); BASO % 0.6 % (0.0-1.0); EOS # 0.1 10^3/uL (0.0-0.50); HEMATOCRIT 49.4 % (42.0-52.0); HEMOGLOBIN 16.3 g/dl (14.0-18.0); IMMATURE GRANULOCYTE % 1.2 % (0-3.0); LYMPH # 1.7 10^3/uL (1.5-4.5); LYMPH % 19.5 % (24.0-44.0); MEAN CORPUSCULAR HEMOGLOBIN 30.9 pg (27.0-33.0); MEAN CORPUSCULAR VOLUME 93.6 fl (80.0-96.0); MONO # 1.1 10^3/uL (0.0-0.8); MONO % 12.2 % (0.0-5.0); NEUTROPHILS # 5.8 10^3/uL (1.8-7.7); NEUTROPHILS % 65.5 % (36.0-66.0); PLATELET COUNT, AUTOMATED 227 10^3/uL (150-450); RED BLOOD COUNT 5.28 10^6/uL (4.30-6.10); RED CELL DISTRIBUTION WIDTH 14.2 % (11.5-14.5); WHITE BLOOD COUNT 8.8 10^3/uL (4.0-10.0)
[2017-12-15 15:33] LABS: ALBUMIN 3.7 GM/DL (3.2-5.2); ALBUMIN/GLOBULIN RATIO 1.06 (1.00-1.93); ALKALINE PHOSPHATASE 87 U/L (45-117); ALT/SGPT 31 U/L (12-78); ANION GAP 7 MEQ/L (8-16); AST/SGOT 23 U/L (7-37); BILIRUBIN,TOTAL 0.3 MG/DL (0.2-1.0); BLOOD UREA NITROGEN 16 MG/DL (7-18); CALCIUM LEVEL 8.8 MG/DL (8.5-10.1); CARBON DIOXIDE LEVEL 31 MEQ/L (21-32); CHLORIDE LEVEL 102 MEQ/L (98-107); CREATININE FOR GFR 1.17 MG/DL (0.70-1.30); GLOMERULAR FILTRATION RATE > 60.0 (>56); GLUCOSE, FASTING 79 MG/DL (70-100); POTASSIUM SERUM 4.7 MEQ/L (3.5-5.1); SODIUM LEVEL 140 MEQ/L (136-145); TOTAL PROTEIN 7.2 GM/DL (6.4-8.2); VALPROIC ACID (DEPAKOTE) 33.4 UG/ML (50.0-100.0)
== END ==
LOC: M LABNEURO 11:05
DX: G43.009 Migraine without aura, not intractable, without status migrainosus (principal); G44.229 Chronic tension-type headache, not intractable

== ENCOUNTER 2018-02-22 10:52 | Emergency (ER) | payer OTHER ==
[2018-02-22] MEDS: PERCOCET 5MG/325MG TAB PO (12:42)
[2018-02-22 14:09] LABS: BASO % 0.5 % (0.0-1.0); EOS # 0.1 10^3/uL (0.0-0.50); EOS % 0.9 % (0.0-3.0); HEMATOCRIT 48.4 % (42.0-52.0); HEMOGLOBIN 16.2 g/dl (13.5-17.5); IMMATURE GRANULOCYTE % 1.5 % (0-3.0); LYMPH % 24.2 % (24.0-44.0); MEAN CORPUSCULAR HEMOGLOBIN 31.2 pg (27.0-33.0); MEAN CORPUSCULAR HGB CONC 33.5 g/dl (32.0-36.5); MEAN CORPUSCULAR VOLUME 93.1 fl (80.0-96.0); MONO % 12.2 % (0.0-5.0); NEUTROPHILS # 4.9 10^3/uL (1.8-7.7); NEUTROPHILS % 60.7 % (36.0-66.0); PLATELET COUNT, AUTOMATED 195 10^3/uL (150-450); RED CELL DISTRIBUTION WIDTH 15.3 % (11.5-14.5); WHITE BLOOD COUNT 8.1 10^3/uL (4.0-10.0)
[2018-02-22 14:12] LABS: KETONE, URINE AUTO RFX NEGATIVE (NEGATIVE); LEUKOCYTE ESTERASE UR AUTO RFX NEGATIVE (NEGATIVE); MUCUS, URINE RFX SMALL (NEGATIVE); NITRITE, URINE AUTO RFX NEGATIVE (NEGATIVE); RBC, URINE AUTO RFX 2 /HPF (0-3); SPECIFIC GRAVITY UR AUTO RFX 1.012 (1.002-1.035); SQUAM EPITHELIAL CELL UR AURFX 0 /HPF (0-6); WBC, URINE AUTO RFX 1 /HPF (0-3)
[2018-02-22 14:24] LABS: ANION GAP 3 MEQ/L (8-16); BLOOD UREA NITROGEN 14 MG/DL (7-18); CALCIUM LEVEL 9.4 MG/DL (8.5-10.1); CARBON DIOXIDE LEVEL 34 MEQ/L (21-32); CHLORIDE LEVEL 103 MEQ/L (98-107); CREATININE FOR GFR 1.24 MG/DL (0.70-1.30); GLOMERULAR FILTRATION RATE > 60.0 (>56); GLUCOSE, FASTING 88 MG/DL (70-100); POTASSIUM SERUM 4.4 MEQ/L (3.5-5.1); SODIUM LEVEL 140 MEQ/L (136-145)
== END 2018-02-22 14:51 | disposition home or self-care (01) ==
LOC: M ED 10:52
DX: M54.5 Low back pain (principal); G89.29 Other chronic pain; R20.0 Anesthesia of skin; N50.82 Scrotal pain; I10 Essential (primary) hypertension; E78.5 Hyperlipidemia, unspecified; K21.9 Gastro-esophageal reflux disease without esophagitis; Z95.1 Presence of aortocoronary bypass graft; Z87.891 Personal history of nicotine dependence; Z88.5 Allergy status to narcotic agent; Z91.048 Other nonmedicinal substance allergy status; Z79.899 Other long term (current) drug therapy; Z79.82 Long term (current) use of aspirin
CPT/HCPCS: 76870

== ENCOUNTER 2018-03-05 16:41 | Emergency (ER) | payer OTHER ==
[2018-03-05] MEDS: GI COCKTAIL 50ML BTL(HYOSCYAMINE/MAALOX/LIDOCAINE VISCOUS)(1:3:1) PO (18:14)
== END 2018-03-05 19:18 | disposition home or self-care (01) ==
LOC: M ED 16:41
DX: K21.0 Gastro-esophageal reflux disease with esophagitis (principal); S39.011A Strain of muscle, fascia and tendon of abdomen, initial encounter; X58.XXXA Exposure to other specified factors, initial encounter; Y92.29 Other specified public building as the place of occurrence of the external cause; R11.2 Nausea with vomiting, unspecified; I10 Essential (primary) hypertension; G47.30 Sleep apnea, unspecified; R51 Headache; Z88.5 Allergy status to narcotic agent; Z91.048 Other nonmedicinal substance allergy status; Z79.899 Other long term (current) drug therapy; Z79.82 Long term (current) use of aspirin
CPT/HCPCS: 99283

== ENCOUNTER → 2018-03-19 | Outpatient (CLI) | payer OTHER | LOC: M PAIN 10:00 | DX: M51.16 Intervertebral disc disorders with radiculopathy, lumbar region (principal); M54.5 Low back pain; G89.29 Other chronic pain; F32.9 Major depressive disorder, single episode, unspecified; F41.9 Anxiety disorder, unspecified; E78.5 Hyperlipidemia, unspecified; E55.9 Vitamin D deficiency, unspecified; K21.9 Gastro-esophageal reflux disease without esophagitis; I10 Essential (primary) hypertension; I25.10 Atherosclerotic heart disease of native coronary artery without angina pectoris; Z79.52 Long term (current) use of systemic steroids; Z79.899 Other long term (current) drug therapy; Z88.5 Allergy status to narcotic agent; Z87.891 Personal history of nicotine dependence | CPT/HCPCS: G0463 ==

== ENCOUNTER 2018-03-20 18:16 | Emergency (ER) | payer OTHER ==
[2018-03-20 20:00] LABS: BASO % 0.5 % (0.0-1.0); EOS % 0.5 % (0.0-3.0); HEMATOCRIT 48.7 % (42.0-52.0); HEMOGLOBIN 16.3 g/dl (13.5-17.5); IMMATURE GRANULOCYTE % 0.8 % (0-3.0); LYMPH # 1.8 10^3/uL (1.5-4.5); MEAN CORPUSCULAR HEMOGLOBIN 31.1 pg (27.0-33.0); MEAN CORPUSCULAR HGB CONC 33.5 g/dl (32.0-36.5); MEAN CORPUSCULAR VOLUME 92.9 fl (80.0-96.0); MONO # 1.1 10^3/uL (0.0-0.8); MONO % 13.4 % (0.0-5.0); NEUTROPHILS # 4.8 10^3/uL (1.8-7.7); NEUTROPHILS % 61.8 % (36.0-66.0); PLATELET COUNT, AUTOMATED 214 10^3/uL (150-450); RED BLOOD COUNT 5.24 10^6/uL (4.30-6.10); RED CELL DISTRIBUTION WIDTH 14.5 % (11.5-14.5); WHITE BLOOD COUNT 7.8 10^3/uL (4.0-10.0)
[2018-03-20] MEDS: ONDANSETRON 4MG/2ML VIAL (J2405) IV (20:05)
[2018-03-20] MEDS: NS 1,000 ML IV (20:05)
[2018-03-20] MEDS: MORPHINE 2 MG/ML 1ML SYRINGE (J2270) IV (20:06)
[2018-03-20 20:08] LABS: KETONE, URINE AUTO RFX NEGATIVE (NEGATIVE); LEUKOCYTE ESTERASE UR AUTO RFX NEGATIVE (NEGATIVE); MUCUS, URINE RFX SMALL (NEGATIVE); NITRITE, URINE AUTO RFX NEGATIVE (NEGATIVE); RBC, URINE AUTO RFX 1 /HPF (0-3); SPECIFIC GRAVITY UR AUTO RFX 1.018 (1.002-1.035); SQUAM EPITHELIAL CELL UR AURFX 0 /HPF (0-6); WBC, URINE AUTO RFX 0 /HPF (0-3)
[2018-03-20 20:26] LABS: ALBUMIN 3.9 GM/DL (3.2-5.2); ALBUMIN/GLOBULIN RATIO 1.03 (1.00-1.93); ALKALINE PHOSPHATASE 75 U/L (45-117); ALT/SGPT 35 U/L (12-78); AMYLASE 34 U/L (25-115); ANION GAP 7 MEQ/L (8-16); AST/SGOT 23 U/L (7-37); BILIRUBIN,DIRECT < 0.1 MG/DL (0.0-0.2); BILIRUBIN,TOTAL 0.3 MG/DL (0.2-1.0); BLOOD UREA NITROGEN 17 MG/DL (7-18); CALCIUM LEVEL 8.9 MG/DL (8.5-10.1); CARBON DIOXIDE LEVEL 32 MEQ/L (21-32); CHLORIDE LEVEL 101 MEQ/L (98-107); CK-MB VALUE MASS 2.4 NG/ML (<3.6); CPK CREATINE PHOSPHOKINASE 256 U/L (39-308); CREATININE FOR GFR 1.22 MG/DL (0.70-1.30); GLOMERULAR FILTRATION RATE > 60.0 (>56); GLUCOSE, FASTING 91 MG/DL (70-100); LIPASE 146 U/L (73-393); MB/CK RELATIVE INDEX 0.93 (< OR =4); POTASSIUM SERUM 4.6 MEQ/L (3.5-5.1); SODIUM LEVEL 140 MEQ/L (136-145); TOTAL PROTEIN 7.7 GM/DL (6.4-8.2); TROPONIN I < 0.02 NG/ML (< 0.10)
== END 2018-03-20 21:12 | disposition home or self-care (01) ==
LOC: M ED 18:16
DX: K82.8 Other specified diseases of gallbladder (principal); R00.1 Bradycardia, unspecified; I10 Essential (primary) hypertension; K21.9 Gastro-esophageal reflux disease without esophagitis; R51 Headache; J45.909 Unspecified asthma, uncomplicated; M54.9 Dorsalgia, unspecified; E03.9 Hypothyroidism, unspecified; F41.9 Anxiety disorder, unspecified; K76.89 Other specified diseases of liver; Z87.442 Personal history of urinary calculi; Z87.891 Personal history of nicotine dependence; Z79.82 Long term (current) use of aspirin; Z79.899 Other long term (current) drug therapy; Z88.5 Allergy status to narcotic agent; Z91.89 Other specified personal risk factors, not elsewhere classified
CPT/HCPCS: J2405

== ENCOUNTER 2018-03-23 05:35 | Emergency (ER) | payer OTHER ==
[2018-03-23 06:29] LABS: BASO % 0.4 % (0.0-1.0); EOS # 0.1 10^3/uL (0.0-0.50); EOS % 1.1 % (0.0-3.0); HEMATOCRIT 46.3 % (42.0-52.0); HEMOGLOBIN 15.5 g/dl (13.5-17.5); IMMATURE GRANULOCYTE % 0.9 % (0-3.0); LYMPH # 1.8 10^3/uL (1.5-4.5); LYMPH % 32.7 % (24.0-44.0); MEAN CORPUSCULAR HEMOGLOBIN 31.4 pg (27.0-33.0); MEAN CORPUSCULAR HGB CONC 33.5 g/dl (32.0-36.5); MEAN CORPUSCULAR VOLUME 93.7 fl (80.0-96.0); MONO # 0.9 10^3/uL (0.0-0.8); MONO % 16.1 % (0.0-5.0); NEUTROPHILS # 2.6 10^3/uL (1.8-7.7); NEUTROPHILS % 48.8 % (36.0-66.0); PLATELET COUNT, AUTOMATED 197 10^3/uL (150-450); RED BLOOD COUNT 4.94 10^6/uL (4.30-6.10); RED CELL DISTRIBUTION WIDTH 14.8 % (11.5-14.5); WHITE BLOOD COUNT 5.4 10^3/uL (4.0-10.0)
[2018-03-23 06:42] LABS: ANION GAP 7 MEQ/L (8-16); BLOOD UREA NITROGEN 17 MG/DL (7-18); CALCIUM LEVEL 8.6 MG/DL (8.5-10.1); CARBON DIOXIDE LEVEL 34 MEQ/L (21-32); CHLORIDE LEVEL 102 MEQ/L (98-107); CREATININE FOR GFR 1.15 MG/DL (0.70-1.30); GLOMERULAR FILTRATION RATE > 60.0 (>56); GLUCOSE, FASTING 96 MG/DL (70-100); POTASSIUM SERUM 4.3 MEQ/L (3.5-5.1); SODIUM LEVEL 143 MEQ/L (136-145)
[2018-03-23 07:04] LABS: ALBUMIN 3.3 GM/DL (3.2-5.2); ALBUMIN/GLOBULIN RATIO 0.92 (1.00-1.93); ALKALINE PHOSPHATASE 68 U/L (45-117); ALT/SGPT 30 U/L (12-78); AST/SGOT 15 U/L (7-37); BILIRUBIN,DIRECT < 0.1 MG/DL (0.0-0.2); BILIRUBIN,TOTAL 0.3 MG/DL (0.2-1.0); LIPASE 112 U/L (73-393); TOTAL PROTEIN 6.9 GM/DL (6.4-8.2)
[2018-03-23 07:09] LABS: INR 0.94; PROTHROMBIN TIME 12.7 SECONDS (12.4-14.5)
[2018-03-23 07:10] LABS: PARTIAL THROMBOPLASTIN TIME 30.6 SECONDS (26.8-37.9)
[2018-03-23] MEDS: NS 1,000 ML IV (07:31)
[2018-03-23] MEDS: ONDANSETRON 4MG/2ML VIAL (J2405) IV (08:49)
[2018-03-23] MEDS: MORPHINE 4 MG/ML 1ML VIAL/SYRINGE (J2270) IV (08:51)
== END 2018-03-23 10:28 | disposition home or self-care (01) ==
LOC: M ED 05:35
DX: K83.8 Other specified diseases of biliary tract (principal); I25.10 Atherosclerotic heart disease of native coronary artery without angina pectoris; I10 Essential (primary) hypertension; E78.5 Hyperlipidemia, unspecified; K21.9 Gastro-esophageal reflux disease without esophagitis; G47.30 Sleep apnea, unspecified; F41.9 Anxiety disorder, unspecified; Z87.891 Personal history of nicotine dependence; Z79.82 Long term (current) use of aspirin; Z79.899 Other long term (current) drug therapy; Z88.5 Allergy status to narcotic agent; Z91.89 Other specified personal risk factors, not elsewhere classified
CPT/HCPCS: J2270

== ENCOUNTER 2018-03-29 15:21 | Emergency (ER) | payer OTHER ==
[2018-03-29 18:46] LABS: BASO % 0.4 % (0.0-1.0); EOS # 0.1 10^3/uL (0.0-0.50); EOS % 1.2 % (0.0-3.0); HEMATOCRIT 46.1 % (42.0-52.0); HEMOGLOBIN 15.7 g/dl (13.5-17.5); IMMATURE GRANULOCYTE % 0.8 % (0-3.0); LYMPH # 2.1 10^3/uL (1.5-4.5); MEAN CORPUSCULAR HEMOGLOBIN 31.8 pg (27.0-33.0); MEAN CORPUSCULAR HGB CONC 34.1 g/dl (32.0-36.5); MEAN CORPUSCULAR VOLUME 93.3 fl (80.0-96.0); MONO # 1.1 10^3/uL (0.0-0.8); MONO % 14.2 % (0.0-5.0); NEUTROPHILS # 4.4 10^3/uL (1.8-7.7); NEUTROPHILS % 56.4 % (36.0-66.0); PLATELET COUNT, AUTOMATED 206 10^3/uL (150-450); RED BLOOD COUNT 4.94 10^6/uL (4.30-6.10); RED CELL DISTRIBUTION WIDTH 14.7 % (11.5-14.5); WHITE BLOOD COUNT 7.7 10^3/uL (4.0-10.0)
[2018-03-29] MEDS: MORPHINE 4 MG/ML 1ML VIAL/SYRINGE (J2270) IV (18:49)
[2018-03-29] MEDS: ONDANSETRON 4MG/2ML VIAL (J2405) IV (18:50)
[2018-03-29] MEDS: NS 1,000 ML IV (19:13)
[2018-03-29 19:19] LABS: ALBUMIN 3.8 GM/DL (3.2-5.2); ALKALINE PHOSPHATASE 79 U/L (45-117); ALT/SGPT 33 U/L (12-78); AMYLASE 29 U/L (25-115); ANION GAP 6 MEQ/L (8-16); AST/SGOT 21 U/L (7-37); BILIRUBIN,DIRECT < 0.1 MG/DL (0.0-0.2); BILIRUBIN,TOTAL 0.3 MG/DL (0.2-1.0); BLOOD UREA NITROGEN 12 MG/DL (7-18); CALCIUM LEVEL 9.1 MG/DL (8.5-10.1); CARBON DIOXIDE LEVEL 33 MEQ/L (21-32); CHLORIDE LEVEL 101 MEQ/L (98-107); CK-MB VALUE MASS 2.4 NG/ML (<3.6); CPK CREATINE PHOSPHOKINASE 283 U/L (39-308); CREATININE FOR GFR 1.31 MG/DL (0.70-1.30); GLOMERULAR FILTRATION RATE > 60.0 (>56); GLUCOSE, FASTING 92 MG/DL (70-100); LIPASE 123 U/L (73-393); MB/CK RELATIVE INDEX 0.84 (< OR =4); POTASSIUM SERUM 4.3 MEQ/L (3.5-5.1); SODIUM LEVEL 140 MEQ/L (136-145); TOTAL PROTEIN 7.6 GM/DL (6.4-8.2); TROPONIN I < 0.02 NG/ML (< 0.10)
[2018-03-29 19:21] LABS: LACTIC ACID SEPSIS PROTOCOL 1.1 MMOL/L (0.4-2.0)
== END 2018-03-29 20:10 | disposition home or self-care (01) ==
LOC: M ED 15:21
DX: K83.8 Other specified diseases of biliary tract (principal); I10 Essential (primary) hypertension; J45.909 Unspecified asthma, uncomplicated; E03.9 Hypothyroidism, unspecified; G47.30 Sleep apnea, unspecified; K21.9 Gastro-esophageal reflux disease without esophagitis; F33.9 Major depressive disorder, recurrent, unspecified; F41.9 Anxiety disorder, unspecified; Z98.0 Intestinal bypass and anastomosis status; Z98.890 Other specified postprocedural states; Z87.442 Personal history of urinary calculi; Z87.19 Personal history of other diseases of the digestive system; Z87.891 Personal history of nicotine dependence; Z88.5 Allergy status to narcotic agent; Z91.048 Other nonmedicinal substance allergy status; Z79.899 Other long term (current) drug therapy; Z79.82 Long term (current) use of aspirin
CPT/HCPCS: J2270

== ENCOUNTER → 2018-04-01 | Outpatient (CLI) | payer OTHER | LOC: M RAD 09:10 | DX: R10.9 Unspecified abdominal pain (principal) | CPT/HCPCS: 74181 ==

== ENCOUNTER 2018-04-04 15:01 | Emergency (ER) | payer OTHER ==
[2018-04-04 16:15] LABS: KETONE, URINE AUTO RFX NEGATIVE (NEGATIVE); LEUKOCYTE ESTERASE UR AUTO RFX NEGATIVE (NEGATIVE); NITRITE, URINE AUTO RFX NEGATIVE (NEGATIVE); RBC, URINE AUTO RFX 2 /HPF (0-3); SPECIFIC GRAVITY UR AUTO RFX 1.012 (1.002-1.035); SQUAM EPITHELIAL CELL UR AURFX 0 /HPF (0-6); WBC, URINE AUTO RFX 0 /HPF (0-3)
[2018-04-04 16:34] LABS: BASO % 0.5 % (0.0-1.0); EOS # 0.1 10^3/uL (0.0-0.50); EOS % 1.1 % (0.0-3.0); HEMATOCRIT 47.3 % (42.0-52.0); HEMOGLOBIN 15.6 g/dl (13.5-17.5); IMMATURE GRANULOCYTE % 0.6 % (0-3.0); LYMPH # 1.8 10^3/uL (1.5-4.5); LYMPH % 28.4 % (24.0-44.0); MEAN CORPUSCULAR HEMOGLOBIN 31.6 pg (27.0-33.0); MEAN CORPUSCULAR VOLUME 95.7 fl (80.0-96.0); MONO # 1.1 10^3/uL (0.0-0.8); MONO % 16.9 % (0.0-5.0); NEUTROPHILS # 3.3 10^3/uL (1.8-7.7); NEUTROPHILS % 52.5 % (36.0-66.0); PLATELET COUNT, AUTOMATED 209 10^3/uL (150-450); RED BLOOD COUNT 4.94 10^6/uL (4.30-6.10); RED CELL DISTRIBUTION WIDTH 14.4 % (11.5-14.5); WHITE BLOOD COUNT 6.2 10^3/uL (4.0-10.0)
[2018-04-04] MEDS: NS 1,000 ML IV (16:39)
[2018-04-04] MEDS: MORPHINE 4 MG/ML 1ML VIAL/SYRINGE (J2270) IV (16:39)
[2018-04-04] MEDS: ONDANSETRON 4MG/2ML VIAL (J2405) IV (16:39)
[2018-04-04 17:05] LABS: ALBUMIN 3.7 GM/DL (3.2-5.2); ALBUMIN/GLOBULIN RATIO 1.06 (1.00-1.93); ALKALINE PHOSPHATASE 79 U/L (45-117); ALT/SGPT 31 U/L (12-78); ANION GAP 6 MEQ/L (8-16); AST/SGOT 23 U/L (7-37); BILIRUBIN,DIRECT < 0.1 MG/DL (0.0-0.2); BILIRUBIN,TOTAL 0.3 MG/DL (0.2-1.0); BLOOD UREA NITROGEN 12 MG/DL (7-18); CARBON DIOXIDE LEVEL 34 MEQ/L (21-32); CHLORIDE LEVEL 102 MEQ/L (98-107); CREATININE FOR GFR 1.29 MG/DL (0.70-1.30); GLOMERULAR FILTRATION RATE > 60.0 (>56); GLUCOSE, FASTING 96 MG/DL (70-100); LIPASE 108 U/L (73-393); POTASSIUM SERUM 4.3 MEQ/L (3.5-5.1); SODIUM LEVEL 142 MEQ/L (136-145); TOTAL PROTEIN 7.2 GM/DL (6.4-8.2)
== END 2018-04-04 17:40 | disposition home or self-care (01) ==
LOC: M ED 15:01
DX: K83.8 Other specified diseases of biliary tract (principal); E66.9 Obesity, unspecified; I10 Essential (primary) hypertension; E78.5 Hyperlipidemia, unspecified; G47.33 Obstructive sleep apnea (adult) (pediatric); E03.9 Hypothyroidism, unspecified; F33.9 Major depressive disorder, recurrent, unspecified; F41.9 Anxiety disorder, unspecified; Z87.442 Personal history of urinary calculi; Z87.891 Personal history of nicotine dependence; Z79.82 Long term (current) use of aspirin; Z79.899 Other long term (current) drug therapy
CPT/HCPCS: J2270

== ENCOUNTER → 2018-04-05 | Outpatient (REF) | payer OTHER | LOC: M SFHCPLAZ 11:49 | DX: R82.90 Unspecified abnormal findings in urine (principal) ==

== ENCOUNTER → 2018-04-13 | Outpatient (CLI) | payer OTHER | LOC: M PAIN 15:30 | DX: M51.16 Intervertebral disc disorders with radiculopathy, lumbar region (principal); G89.29 Other chronic pain; F32.9 Major depressive disorder, single episode, unspecified; F41.9 Anxiety disorder, unspecified; E78.5 Hyperlipidemia, unspecified; K21.9 Gastro-esophageal reflux disease without esophagitis; G47.33 Obstructive sleep apnea (adult) (pediatric); Z79.52 Long term (current) use of systemic steroids; Z79.899 Other long term (current) drug therapy; Z88.5 Allergy status to narcotic agent; Z87.891 Personal history of nicotine dependence | CPT/HCPCS: G0463 ==

== ENCOUNTER 2018-04-19 12:21 | Emergency (ER) | payer OTHER ==
[2018-04-19] MEDS: PERCOCET 5MG/325MG TAB PO (14:15)
== END 2018-04-19 14:22 | disposition home or self-care (01) ==
LOC: M ED 12:21
DX: M79.621 Pain in right upper arm (principal); I10 Essential (primary) hypertension; R51 Headache; J45.909 Unspecified asthma, uncomplicated; G47.33 Obstructive sleep apnea (adult) (pediatric); K21.9 Gastro-esophageal reflux disease without esophagitis; Z87.442 Personal history of urinary calculi; E03.9 Hypothyroidism, unspecified; M54.9 Dorsalgia, unspecified; F41.9 Anxiety disorder, unspecified; F32.9 Major depressive disorder, single episode, unspecified; Z95.1 Presence of aortocoronary bypass graft; Z87.891 Personal history of nicotine dependence; Z79.82 Long term (current) use of aspirin; Z79.899 Other long term (current) drug therapy; Z91.89 Other specified personal risk factors, not elsewhere classified; Z88.5 Allergy status to narcotic agent
CPT/HCPCS: 99283

== ENCOUNTER 2018-04-23 11:37 | Emergency (ER) | payer OTHER ==
[2018-04-23] MEDS: ONDANSETRON 4MG/2ML VIAL (J2405) IV (12:22)
[2018-04-23] MEDS: NS 1,000 ML IV (12:22)
[2018-04-23] MEDS: MORPHINE 4 MG/ML 1ML VIAL/SYRINGE (J2270) IV (12:23)
[2018-04-23 12:26] LABS: BASO % 0.5 % (0.0-1.0); EOS # 0.1 10^3/uL (0.0-0.50); EOS % 0.9 % (0.0-3.0); HEMATOCRIT 46.2 % (42.0-52.0); HEMOGLOBIN 15.8 g/dl (13.5-17.5); IMMATURE GRANULOCYTE % 1.2 % (0-3.0); LYMPH # 1.9 10^3/uL (1.5-4.5); LYMPH % 25.7 % (24.0-44.0); MEAN CORPUSCULAR HEMOGLOBIN 32.4 pg (27.0-33.0); MEAN CORPUSCULAR HGB CONC 34.2 g/dl (32.0-36.5); MEAN CORPUSCULAR VOLUME 94.7 fl (80.0-96.0); MONO % 13.7 % (0.0-5.0); NEUTROPHILS # 4.3 10^3/uL (1.8-7.7); PLATELET COUNT, AUTOMATED 217 10^3/uL (150-450); RED BLOOD COUNT 4.88 10^6/uL (4.30-6.10); RED CELL DISTRIBUTION WIDTH 14.1 % (11.5-14.5); WHITE BLOOD COUNT 7.5 10^3/uL (4.0-10.0)
[2018-04-23 12:49] LABS: ALBUMIN 3.5 GM/DL (3.2-5.2); ALBUMIN/GLOBULIN RATIO 0.95 (1.00-1.93); ALKALINE PHOSPHATASE 91 U/L (45-117); ALT/SGPT 28 U/L (12-78); AMYLASE 29 U/L (25-115); ANION GAP 7 MEQ/L (8-16); AST/SGOT 19 U/L (7-37); BILIRUBIN,DIRECT < 0.1 MG/DL (0.0-0.2); BILIRUBIN,TOTAL 0.3 MG/DL (0.2-1.0); BLOOD UREA NITROGEN 15 MG/DL (7-18); CALCIUM LEVEL 8.6 MG/DL (8.5-10.1); CARBON DIOXIDE LEVEL 30 MEQ/L (21-32); CHLORIDE LEVEL 103 MEQ/L (98-107); CREATININE FOR GFR 1.18 MG/DL (0.70-1.30); GLOMERULAR FILTRATION RATE > 60.0 (>56); GLUCOSE, FASTING 89 MG/DL (70-100); LIPASE 101 U/L (73-393); POTASSIUM SERUM 4.1 MEQ/L (3.5-5.1); SODIUM LEVEL 140 MEQ/L (136-145); TOTAL PROTEIN 7.2 GM/DL (6.4-8.2)
== END 2018-04-23 14:07 | disposition home or self-care (01) ==
LOC: M ED 11:37
DX: K83.8 Other specified diseases of biliary tract (principal); I10 Essential (primary) hypertension; J45.909 Unspecified asthma, uncomplicated; E03.9 Hypothyroidism, unspecified; K21.9 Gastro-esophageal reflux disease without esophagitis; F33.9 Major depressive disorder, recurrent, unspecified; F41.9 Anxiety disorder, unspecified; Z87.442 Personal history of urinary calculi; Z98.890 Other specified postprocedural states; Z95.1 Presence of aortocoronary bypass graft
CPT/HCPCS: J2270

== ENCOUNTER 2018-04-25 12:02 | Emergency (ER) | payer OTHER ==
[2018-04-25] MEDS: ONDANSETRON 4 MG ORAL DISINTEGRATING TAB (Q0162 PER 1MG) PO (14:39)
== END 2018-04-25 14:42 | disposition home or self-care (01) ==
LOC: M ED 12:02
DX: R11.2 Nausea with vomiting, unspecified (principal); R10.31 Right lower quadrant pain; I10 Essential (primary) hypertension; J45.909 Unspecified asthma, uncomplicated; E78.00 Pure hypercholesterolemia, unspecified; G47.30 Sleep apnea, unspecified; H40.9 Unspecified glaucoma; K21.9 Gastro-esophageal reflux disease without esophagitis; E03.9 Hypothyroidism, unspecified; K76.89 Other specified diseases of liver; F41.9 Anxiety disorder, unspecified; Z87.442 Personal history of urinary calculi; Z79.899 Other long term (current) drug therapy; Z79.82 Long term (current) use of aspirin; Z79.890 Hormone replacement therapy; Z88.5 Allergy status to narcotic agent; Z91.040 Latex allergy status; Z91.048 Other nonmedicinal substance allergy status
CPT/HCPCS: Q0162

== ENCOUNTER 2018-04-27 08:08 | Emergency (ER) | payer OTHER ==
[2018-04-27] MEDS: NS 1,000 ML IV (08:30)
[2018-04-27 08:51] LABS: BASO % 0.5 % (0.0-1.0); EOS # 0.1 10^3/uL (0.0-0.50); HEMATOCRIT 50.1 % (42.0-52.0); HEMOGLOBIN 16.5 g/dl (13.5-17.5); IMMATURE GRANULOCYTE % 1.2 % (0-3.0); LYMPH # 1.8 10^3/uL (1.5-4.5); LYMPH % 29.8 % (24.0-44.0); MEAN CORPUSCULAR HEMOGLOBIN 31.9 pg (27.0-33.0); MEAN CORPUSCULAR HGB CONC 32.9 g/dl (32.0-36.5); MEAN CORPUSCULAR VOLUME 96.7 fl (80.0-96.0); MONO # 0.5 10^3/uL (0.0-0.8); MONO % 8.1 % (0.0-5.0); NEUTROPHILS # 3.5 10^3/uL (1.8-7.7); NEUTROPHILS % 59.4 % (36.0-66.0); PLATELET COUNT, AUTOMATED 196 10^3/uL (150-450); RED BLOOD COUNT 5.18 10^6/uL (4.30-6.10); RED CELL DISTRIBUTION WIDTH 14.3 % (11.5-14.5); WHITE BLOOD COUNT 5.9 10^3/uL (4.0-10.0)
[2018-04-27] MEDS: ACETAMINOPHEN 325 MG TAB PO (08:55)
[2018-04-27] MEDS: diphenhydrAMINE INJ 50MG/ML VIAL (J1200) IV (08:58)
[2018-04-27] MEDS: PROMETHAZINE INJ 25 MG/ML VIAL (J2550) IV (08:58)
[2018-04-27 09:10] LABS: ALBUMIN 3.6 GM/DL (3.2-5.2); ALKALINE PHOSPHATASE 91 U/L (45-117); ALT/SGPT 32 U/L (12-78); ANION GAP 5 MEQ/L (8-16); AST/SGOT 21 U/L (7-37); BILIRUBIN,TOTAL 0.3 MG/DL (0.2-1.0); BLOOD UREA NITROGEN 16 MG/DL (7-18); CALCIUM LEVEL 8.8 MG/DL (8.5-10.1); CARBON DIOXIDE LEVEL 30 MEQ/L (21-32); CHLORIDE LEVEL 104 MEQ/L (98-107); CREATININE FOR GFR 1.33 MG/DL (0.70-1.30); GLOMERULAR FILTRATION RATE > 60.0 (>56); GLUCOSE, FASTING 124 MG/DL (70-100); POTASSIUM SERUM 3.9 MEQ/L (3.5-5.1); SODIUM LEVEL 139 MEQ/L (136-145); TOTAL PROTEIN 7.6 GM/DL (6.4-8.2)
[2018-04-27] MEDS: MECLIZINE 25 MG TABLET PO (09:58)
[2018-04-27 10:07] LABS: CK-MB VALUE MASS 2.3 NG/ML (<3.6); CPK CREATINE PHOSPHOKINASE 217 U/L (39-308); MB/CK RELATIVE INDEX 1.05 (< OR =4); TROPONIN I < 0.02 NG/ML (< 0.10)
== END 2018-04-27 13:03 | disposition home or self-care (01) ==
LOC: M ED 08:08
DX: R42 Dizziness and giddiness (principal); E07.9 Disorder of thyroid, unspecified; F99 Mental disorder, not otherwise specified; Z79.899 Other long term (current) drug therapy; Z79.82 Long term (current) use of aspirin; Z79.890 Hormone replacement therapy; Z88.5 Allergy status to narcotic agent; Z91.040 Latex allergy status; Z91.048 Other nonmedicinal substance allergy status; Z87.891 Personal history of nicotine dependence
CPT/HCPCS: J1200

== ENCOUNTER → 2018-04-30 | Outpatient (CLI) | payer OTHER | LOC: M RAD 14:02 | DX: M79.661 Pain in right lower leg (principal) | CPT/HCPCS: 93971 ==

== ENCOUNTER → 2018-05-04 | Outpatient (CLI) | payer OTHER ==
[~2018-05-04] MED LIST changes: -ALBU17IN INH; -AMLO25TA PO; -AMMO12CR4 TOP; -ARTI99.0 OU; -ASPI325T24 PO; -ATOR40TA75 PO; -BUSP10TA PO; -CETI10TA PO; -CLEO300C2 PO; -COLA100C5 PO; -DIVA500T3 PO; -DOCU100C16 PO; -DULC5TAB PO; -FISH1000 PO; -FLOM5CAP PO; -FLUT1SPR2; -FLUTISP; -GABA-282 PO; -GABA600T PO; -HYDR-3713 PO; -HYDROCODONE APAP PO; -IBUP-1022 PO; -IBUP80TA PO; -IRON65TA PO; +ISOVUE-M 300 61% 15ML VIAL (Q9967) As Ordered; -LEVO75TA4 PO; -LEVO88TA3 PO; -LEXA1TAB PO; +LIDOCAINE 1% SDV INJ 30 ML VIAL As Ordered; -METO-346 PO; -METO1TAB87 PO; -NAPR500T3 PO; -OMEP40CA2 PO; -ONDA4TAB6 PO; -OXYC1TAB23 PO; -PANT40TA2 PO; -PERC5TAB12 PO; -PERCOCET PO; -RANI15TA PO; -RISP0.5T3 PO; -RISP2TAB3 PO; -SUCR1TA PO; -SYNT75TA PO; -TIZA4CAP3 PO; -TRIH2TAB3 PO; -VITA500046 PO; -VITMTA PO; -ZOCO40TA PO; -ZOFR8TAB PO; +diazePAM 5 MG TAB As Ordered; +methylPREDNISolone SUSP 40 MG/ML (DEPO-medrol) VIAL (J1030) As Ordered; +oxyCODONE 5MG TAB As Ordered
== END ==
LOC: M PAIN 08:30
DX: G89.29 Other chronic pain (principal); M51.16 Intervertebral disc disorders with radiculopathy, lumbar region; F32.9 Major depressive disorder, single episode, unspecified; F41.9 Anxiety disorder, unspecified; E78.5 Hyperlipidemia, unspecified; K21.9 Gastro-esophageal reflux disease without esophagitis; E55.9 Vitamin D deficiency, unspecified; G47.33 Obstructive sleep apnea (adult) (pediatric); Z79.82 Long term (current) use of aspirin; Z79.899 Other long term (current) drug therapy; Z88.5 Allergy status to narcotic agent; Z91.040 Latex allergy status; Z86.79 Personal history of other diseases of the circulatory system
CPT/HCPCS: J1030

== ENCOUNTER → 2018-05-14 | Outpatient (CLI) | payer OTHER | LOC: M PAIN 09:00 | DX: M53.3 Sacrococcygeal disorders, not elsewhere classified (principal); M47.897 Other spondylosis, lumbosacral region; F32.9 Major depressive disorder, single episode, unspecified; F41.9 Anxiety disorder, unspecified; E78.5 Hyperlipidemia, unspecified; K21.9 Gastro-esophageal reflux disease without esophagitis; K22.70 Barrett's esophagus without dysplasia; E55.9 Vitamin D deficiency, unspecified; G47.33 Obstructive sleep apnea (adult) (pediatric); I25.10 Atherosclerotic heart disease of native coronary artery without angina pectoris; E04.2 Nontoxic multinodular goiter; Z95.1 Presence of aortocoronary bypass graft; Z87.891 Personal history of nicotine dependence; Z79.899 Other long term (current) drug therapy; Z79.82 Long term (current) use of aspirin; Z88.5 Allergy status to narcotic agent; Z91.040 Latex allergy status | CPT/HCPCS: G0463 ==

== ENCOUNTER 2018-05-24 10:47 | Emergency (ER) | payer OTHER ==
[2018-05-24] MEDS: BACLOFEN 10 MG TAB PO (12:53)
[2018-05-24] MEDS: KETOROLAC TROMETHAMINE 10 MG TAB PO (12:53)
== END 2018-05-24 13:00 | disposition home or self-care (01) ==
LOC: M ED 10:47
DX: M54.42 Lumbago with sciatica, left side (principal); G89.29 Other chronic pain; I10 Essential (primary) hypertension; J45.909 Unspecified asthma, uncomplicated; E78.5 Hyperlipidemia, unspecified; G47.33 Obstructive sleep apnea (adult) (pediatric); K21.9 Gastro-esophageal reflux disease without esophagitis; F41.9 Anxiety disorder, unspecified; F33.9 Major depressive disorder, recurrent, unspecified; Z98.890 Other specified postprocedural states; Z79.82 Long term (current) use of aspirin
CPT/HCPCS: 99283

== ENCOUNTER 2018-05-30 17:36 | Emergency (ER) | payer OTHER ==
[2018-05-30] MEDS: ONDANSETRON 4MG/2ML VIAL (J2405) IV (18:49)
[2018-05-30] MEDS: MORPHINE 4 MG/ML 1ML VIAL/SYRINGE (J2270) IV (18:49)
[2018-05-30] MEDS: NS 1,000 ML IV (18:49)
[2018-05-30 18:52] LABS: BASO % 0.4 % (0.0-1.0); EOS % 0.1 % (0.0-3.0); HEMATOCRIT 47.6 % (42.0-52.0); HEMOGLOBIN 15.9 g/dl (13.5-17.5); IMMATURE GRANULOCYTE % 1.3 % (0-3.0); LYMPH # 1.3 10^3/uL (1.5-4.5); LYMPH % 11.8 % (24.0-44.0); MEAN CORPUSCULAR HEMOGLOBIN 31.9 pg (27.0-33.0); MEAN CORPUSCULAR HGB CONC 33.4 g/dl (32.0-36.5); MEAN CORPUSCULAR VOLUME 95.6 fl (80.0-96.0); MONO # 1.7 10^3/uL (0.0-0.8); MONO % 15.1 % (0.0-5.0); NEUTROPHILS # 7.8 10^3/uL (1.8-7.7); NEUTROPHILS % 71.3 % (36.0-66.0); PLATELET COUNT, AUTOMATED 220 10^3/uL (150-450); RED BLOOD COUNT 4.98 10^6/uL (4.30-6.10); RED CELL DISTRIBUTION WIDTH 13.5 % (11.5-14.5)
[2018-05-30 18:53] LABS: KETONE, URINE AUTO RFX NEGATIVE (NEGATIVE); LEUKOCYTE ESTERASE UR AUTO RFX NEGATIVE (NEGATIVE); MUCUS, URINE RFX SMALL (NEGATIVE); NITRITE, URINE AUTO RFX NEGATIVE (NEGATIVE); RBC, URINE AUTO RFX 3 /HPF (0-3); SPECIFIC GRAVITY UR AUTO RFX 1.014 (1.002-1.035); SQUAM EPITHELIAL CELL UR AURFX 0 /HPF (0-6); WBC, URINE AUTO RFX 0 /HPF (0-3)
[2018-05-30] MEDS ORDERED: ISOVUE-370 76% 100ML VIAL (Q9967) As Ordered (19:07)
[2018-05-30 19:13] LABS: ALBUMIN 3.6 GM/DL (3.2-5.2); ALBUMIN/GLOBULIN RATIO 0.95 (1.00-1.93); ALKALINE PHOSPHATASE 76 U/L (45-117); ALT/SGPT 31 U/L (12-78); ANION GAP 7 MEQ/L (8-16); AST/SGOT 23 U/L (7-37); BILIRUBIN,TOTAL 0.3 MG/DL (0.2-1.0); BLOOD UREA NITROGEN 13 MG/DL (7-18); CALCIUM LEVEL 8.9 MG/DL (8.5-10.1); CARBON DIOXIDE LEVEL 32 MEQ/L (21-32); CHLORIDE LEVEL 105 MEQ/L (98-107); CREATININE FOR GFR 1.13 MG/DL (0.70-1.30); GLOMERULAR FILTRATION RATE > 60.0 (>56); GLUCOSE, FASTING 94 MG/DL (70-100); LIPASE 107 U/L (73-393); POTASSIUM SERUM 4.4 MEQ/L (3.5-5.1); SODIUM LEVEL 144 MEQ/L (136-145); TOTAL PROTEIN 7.4 GM/DL (6.4-8.2)
== END 2018-05-30 21:14 | disposition home or self-care (01) ==
LOC: M ED 17:36
DX: K92.1 Melena (principal); R19.4 Change in bowel habit; I10 Essential (primary) hypertension; E78.5 Hyperlipidemia, unspecified; E07.9 Disorder of thyroid, unspecified; K21.9 Gastro-esophageal reflux disease without esophagitis; M54.9 Dorsalgia, unspecified; G89.29 Other chronic pain; F99 Mental disorder, not otherwise specified; Z87.891 Personal history of nicotine dependence; Z95.1 Presence of aortocoronary bypass graft; Z98.890 Other specified postprocedural states; Z87.19 Personal history of other diseases of the digestive system; Z88.5 Allergy status to narcotic agent; Z91.040 Latex allergy status; Z91.048 Other nonmedicinal substance allergy status; Z79.899 Other long term (current) drug therapy; Z79.890 Hormone replacement therapy; Z79.82 Long term (current) use of aspirin; Z79.52 Long term (current) use of systemic steroids
CPT/HCPCS: J2270

== ENCOUNTER 2018-06-07 15:19 | Emergency (ER) | payer OTHER, MEDICAID ==
[2018-06-07 17:50] LABS: BASO % 0.6 % (0.0-1.0); EOS # 0.1 10^3/uL (0.0-0.50); EOS % 1.1 % (0.0-3.0); HEMATOCRIT 48.7 % (42.0-52.0); IMMATURE GRANULOCYTE % 2.5 % (0-3.0); LYMPH % 28.5 % (24.0-44.0); MEAN CORPUSCULAR HEMOGLOBIN 31.7 pg (27.0-33.0); MEAN CORPUSCULAR HGB CONC 32.9 g/dl (32.0-36.5); MEAN CORPUSCULAR VOLUME 96.6 fl (80.0-96.0); MONO # 1.2 10^3/uL (0.0-0.8); NEUTROPHILS # 3.6 10^3/uL (1.8-7.7); NEUTROPHILS % 50.3 % (36.0-66.0); PLATELET COUNT, AUTOMATED 186 10^3/uL (150-450); RED BLOOD COUNT 5.04 10^6/uL (4.30-6.10); RED CELL DISTRIBUTION WIDTH 13.8 % (11.5-14.5); WHITE BLOOD COUNT 7.2 10^3/uL (4.0-10.0)
[2018-06-07 17:55] LABS: KETONE, URINE AUTO RFX NEGATIVE (NEGATIVE); LEUKOCYTE ESTERASE UR AUTO RFX NEGATIVE (NEGATIVE); MUCUS, URINE RFX SMALL (NEGATIVE); NITRITE, URINE AUTO RFX NEGATIVE (NEGATIVE); RBC, URINE AUTO RFX 1 /HPF (0-3); SPECIFIC GRAVITY UR AUTO RFX 1.015 (1.002-1.035); SQUAM EPITHELIAL CELL UR AURFX 0 /HPF (0-6); WBC, URINE AUTO RFX 1 /HPF (0-3)
[2018-06-07 18:00] LABS: INR 0.93; PROTHROMBIN TIME 12.6 SECONDS (12.1-14.4)
[2018-06-07 18:01] LABS: PARTIAL THROMBOPLASTIN TIME 27.2 SECONDS (25.4-37.6)
[2018-06-07 18:11] LABS: ALBUMIN 3.5 GM/DL (3.2-5.2); ALBUMIN/GLOBULIN RATIO 0.97 (1.00-1.93); ALKALINE PHOSPHATASE 77 U/L (45-117); ALT/SGPT 31 U/L (12-78); AMYLASE 24 U/L (25-115); ANION GAP 6 MEQ/L (8-16); AST/SGOT 21 U/L (7-37); BILIRUBIN,DIRECT 0.1 MG/DL (0.0-0.2); BILIRUBIN,TOTAL 0.3 MG/DL (0.2-1.0); BLOOD UREA NITROGEN 9 MG/DL (7-18); CALCIUM LEVEL 8.7 MG/DL (8.5-10.1); CARBON DIOXIDE LEVEL 32 MEQ/L (21-32); CHLORIDE LEVEL 103 MEQ/L (98-107); CREATININE FOR GFR 1.16 MG/DL (0.70-1.30); GLOMERULAR FILTRATION RATE > 60.0 (>56); GLUCOSE, FASTING 83 MG/DL (70-100); LIPASE 122 U/L (73-393); POTASSIUM SERUM 4.4 MEQ/L (3.5-5.1); SODIUM LEVEL 141 MEQ/L (136-145); TOTAL PROTEIN 7.1 GM/DL (6.4-8.2)
[2018-06-07] MEDS: NS 1,000 ML IV (18:28)
[2018-06-07] MEDS ORDERED: ISOVUE-370 76% 100ML VIAL (Q9967) As Ordered (18:35)
[2018-06-07] MEDS: NORCO 5/325MG TABLET (BULK FOR ED) PO (20:48)
[2018-06-07] MEDS: NORCO, ANEXSIA 5/325MG TABLET (HYDROcodone/ACETAMINOPHEN) PO (20:48)
== END 2018-06-07 20:52 | disposition home or self-care (01) ==
LOC: M ED 15:19
DX: R10.31 Right lower quadrant pain (principal); N20.0 Calculus of kidney; E78.5 Hyperlipidemia, unspecified; F32.9 Major depressive disorder, single episode, unspecified; F41.9 Anxiety disorder, unspecified; K21.9 Gastro-esophageal reflux disease without esophagitis; K22.70 Barrett's esophagus without dysplasia; G47.33 Obstructive sleep apnea (adult) (pediatric); M79.606 Pain in leg, unspecified; G89.29 Other chronic pain; Z95.1 Presence of aortocoronary bypass graft; Z88.5 Allergy status to narcotic agent; Z91.040 Latex allergy status; Z91.048 Other nonmedicinal substance allergy status; Z79.899 Other long term (current) drug therapy; Z79.82 Long term (current) use of aspirin
CPT/HCPCS: Q9967

== ENCOUNTER → 2018-06-08 | Outpatient (CLI) | payer OTHER ==
[~2018-06-08] MED LIST changes: +BUPIVACAINE HCL 0.25% 30 ML VIAL As Ordered; +TRIAMCINOLONE ACETONIDE SUSP 40 MG/ML VIAL (J3301) As Ordered; -methylPREDNISolone SUSP 40 MG/ML (DEPO-medrol) VIAL (J1030) As Ordered
== END ==
LOC: M PAIN 10:30
DX: G89.29 Other chronic pain (principal); M46.1 Sacroiliitis, not elsewhere classified; M53.88 Other specified dorsopathies, sacral and sacrococcygeal region; F32.9 Major depressive disorder, single episode, unspecified; F41.9 Anxiety disorder, unspecified; E78.5 Hyperlipidemia, unspecified; K21.9 Gastro-esophageal reflux disease without esophagitis; K22.70 Barrett's esophagus without dysplasia; I25.10 Atherosclerotic heart disease of native coronary artery without angina pectoris; I10 Essential (primary) hypertension; E55.9 Vitamin D deficiency, unspecified; E66.01 Morbid (severe) obesity due to excess calories; Z68.42 Body mass index [BMI] 45.0-49.9, adult; Z79.82 Long term (current) use of aspirin; Z79.899 Other long term (current) drug therapy; Z88.5 Allergy status to narcotic agent; Z91.040 Latex allergy status; Z87.891 Personal history of nicotine dependence
CPT/HCPCS: J3301

== ENCOUNTER 2018-06-09 21:26 | Emergency (ER) | payer OTHER ==
[2018-06-10 00:51] LABS: BASO % 0.2 % (0.0-1.0); HEMATOCRIT 44.7 % (42.0-52.0); HEMOGLOBIN 15.1 g/dl (13.5-17.5); IMMATURE GRANULOCYTE % 1.5 % (0-3.0); LYMPH # 1.2 10^3/uL (1.5-4.5); LYMPH % 8.6 % (24.0-44.0); MEAN CORPUSCULAR HEMOGLOBIN 31.8 pg (27.0-33.0); MEAN CORPUSCULAR HGB CONC 33.8 g/dl (32.0-36.5); MEAN CORPUSCULAR VOLUME 94.1 fl (80.0-96.0); MONO # 1.8 10^3/uL (0.0-0.8); MONO % 12.7 % (0.0-5.0); NEUTROPHILS # 11.1 10^3/uL (1.8-7.7); PLATELET COUNT, AUTOMATED 197 10^3/uL (150-450); RED BLOOD COUNT 4.75 10^6/uL (4.30-6.10); RED CELL DISTRIBUTION WIDTH 13.7 % (11.5-14.5); WHITE BLOOD COUNT 14.4 10^3/uL (4.0-10.0)
[2018-06-10 01:03] LABS: ALBUMIN 3.6 GM/DL (3.2-5.2); ALBUMIN/GLOBULIN RATIO 0.97 (1.00-1.93); ALKALINE PHOSPHATASE 68 U/L (45-117); ALT/SGPT 36 U/L (12-78); ANION GAP 10 MEQ/L (8-16); AST/SGOT 48 U/L (7-37); BILIRUBIN,DIRECT < 0.1 MG/DL (0.0-0.2); BILIRUBIN,TOTAL 0.2 MG/DL (0.2-1.0); BLOOD UREA NITROGEN 14 MG/DL (7-18); CALCIUM LEVEL 8.8 MG/DL (8.5-10.1); CARBON DIOXIDE LEVEL 29 MEQ/L (21-32); CHLORIDE LEVEL 104 MEQ/L (98-107); CREATININE FOR GFR 1.09 MG/DL (0.70-1.30); GLOMERULAR FILTRATION RATE > 60.0 (>56); GLUCOSE, FASTING 127 MG/DL (70-100); LIPASE 99 U/L (73-393); POTASSIUM SERUM 4.6 MEQ/L (3.5-5.1); SODIUM LEVEL 143 MEQ/L (136-145); TOTAL PROTEIN 7.3 GM/DL (6.4-8.2)
[2018-06-10] MEDS: MORPHINE 4 MG/ML 1ML VIAL/SYRINGE (J2270) IV (01:41)
[2018-06-10] MEDS: ONDANSETRON 4MG/2ML VIAL (J2405) IV (01:41)
== END 2018-06-10 04:17 | disposition home or self-care (01) ==
LOC: M ED 21:26
DX: K80.50 Calculus of bile duct without cholangitis or cholecystitis without obstruction (principal); K76.89 Other specified diseases of liver; Z87.19 Personal history of other diseases of the digestive system; Z88.5 Allergy status to narcotic agent; Z91.040 Latex allergy status; Z91.048 Other nonmedicinal substance allergy status; Z79.899 Other long term (current) drug therapy; Z79.82 Long term (current) use of aspirin
CPT/HCPCS: J2270

== ENCOUNTER 2018-06-14 10:56 | Emergency (ER) | payer OTHER ==
[2018-06-14 11:45] LABS: BASO # 0.1 10^3/uL (0.0-0.2); BASO % 0.4 % (0.0-1.0); EOS % 0.3 % (0.0-3.0); HEMATOCRIT 48.1 % (42.0-52.0); HEMOGLOBIN 16.3 g/dl (13.5-17.5); IMMATURE GRANULOCYTE % 2.1 % (0-3.0); LYMPH # 2.1 10^3/uL (1.5-4.5); LYMPH % 16.5 % (24.0-44.0); MEAN CORPUSCULAR HEMOGLOBIN 31.6 pg (27.0-33.0); MEAN CORPUSCULAR HGB CONC 33.9 g/dl (32.0-36.5); MEAN CORPUSCULAR VOLUME 93.2 fl (80.0-96.0); MONO % 16.8 % (0.0-5.0); NEUTROPHILS # 7.9 10^3/uL (1.8-7.7); NEUTROPHILS % 63.9 % (36.0-66.0); PLATELET COUNT, AUTOMATED 226 10^3/uL (150-450); RED BLOOD COUNT 5.16 10^6/uL (4.30-6.10); RED CELL DISTRIBUTION WIDTH 13.6 % (11.5-14.5); WHITE BLOOD COUNT 12.4 10^3/uL (4.0-10.0)
[2018-06-14 11:52] LABS: APPEARANCE, URINE CLEAR (CLEAR); BACTERIA, URINE AUTO NEGATIVE (NEGATIVE); BILIRUBIN, URINE AUTO NEGATIVE (NEGATIVE); BLOOD, URINE BLOOD 1+ (NEGATIVE); COLOR, URINE YELLOW (YELLOW); GLUCOSE, URINE (UA) AUTO NEGATIVE (NEGATIVE); KETONE, URINE AUTO NEGATIVE (NEGATIVE); LEUKOCYTE ESTERASE, URINE AUTO NEGATIVE (NEGATIVE); NITRITE, URINE AUTO NEGATIVE (NEGATIVE); PROTEIN, URINE AUTO NEGATIVE (NEGATIVE); RBC, URINE AUTO 4 /HPF (0-3); SPECIFIC GRAVITY URINE AUTO 1.008 (1.002-1.035); SQUAMOUS EPITHELIAL CELL UR AU 0 /HPF (0-6); UROBILINOGEN, URINE AUTO 0.2 mg/dL (0.0-2.0); WBC, URINE AUTO 1 /HPF (0-3)
[2018-06-14 12:00] LABS: MONO # 2.1 10^3/uL (0.0-0.8); POSITIVE DIFF POS FLAG
[2018-06-14] MEDS: NS 1,000 ML IV (12:00)
[2018-06-14] MEDS: ONDANSETRON 4MG/2ML VIAL (J2405) IV (12:05)
[2018-06-14] MEDS: KETOROLAC 30 MG/ML VIAL (J1885) IV (12:06)
[2018-06-14] MEDS: GASTROGRAFIN SOLUTION 30ML PO ×2 (12:06→12:50)
[2018-06-14 12:09] LABS: ALBUMIN 3.7 GM/DL (3.2-5.2); ALKALINE PHOSPHATASE 71 U/L (45-117); ALT/SGPT 28 U/L (12-78); AST/SGOT 14 U/L (7-37); BILIRUBIN,TOTAL 0.3 MG/DL (0.2-1.0); BLOOD UREA NITROGEN 19 MG/DL (7-18); C REACTIVE PROTEIN QUANTITATIV < 0.30 MG/DL (0.00-0.30); CARBON DIOXIDE LEVEL 30 MEQ/L (21-32); CHLORIDE LEVEL 103 MEQ/L (98-107); CREATININE FOR GFR 1.22 MG/DL (0.70-1.30); GLOMERULAR FILTRATION RATE > 60.0 (>56); GLUCOSE, FASTING 72 MG/DL (70-100); LIPASE 133 U/L (73-393); POTASSIUM SERUM 4.4 MEQ/L (3.5-5.1); SODIUM LEVEL 140 MEQ/L (136-145); TOTAL PROTEIN 7.2 GM/DL (6.4-8.2)
[2018-06-14 12:11] LABS: LACTIC ACID SEPSIS PROTOCOL 1.2 MMOL/L (0.4-2.0)
[2018-06-14 12:23] LABS: ANION GAP 7 MEQ/L (8-16)
[2018-06-14 12:25] LABS: ALBUMIN/GLOBULIN RATIO 1.06 (1.00-1.93)
[2018-06-14] MEDS ORDERED: ISOVUE-370 76% 100ML VIAL (Q9967) As Ordered (13:31)
== END 2018-06-14 14:30 | disposition home or self-care (01) ==
LOC: M ED 10:56
DX: R10.31 Right lower quadrant pain (principal); R11.2 Nausea with vomiting, unspecified; I10 Essential (primary) hypertension; K21.9 Gastro-esophageal reflux disease without esophagitis; G47.30 Sleep apnea, unspecified; F32.9 Major depressive disorder, single episode, unspecified; Z95.1 Presence of aortocoronary bypass graft; Z87.442 Personal history of urinary calculi; Z88.5 Allergy status to narcotic agent; Z91.040 Latex allergy status; Z91.048 Other nonmedicinal substance allergy status; Z79.899 Other long term (current) drug therapy; Z79.82 Long term (current) use of aspirin
CPT/HCPCS: Q9963

== ENCOUNTER → 2018-06-17 | Outpatient (REF) | payer OTHER ==
[2018-06-17 17:02] LABS: FREE T4 0.88 NG/DL (0.76-1.46)
== END ==
LOC: M SFHCPLAZ 13:53
DX: E03.9 Hypothyroidism, unspecified (principal)

== ENCOUNTER → 2018-06-22 | Outpatient (REF) | payer OTHER ==
[2018-06-22 13:44] LABS: BASO # 0.1 10^3/uL (0.0-0.2); BASO % 0.6 % (0.0-1.0); EOS # 0.1 10^3/uL (0.0-0.50); EOS % 0.8 % (0.0-3.0); HEMATOCRIT 47.3 % (42.0-52.0); HEMOGLOBIN 15.5 g/dl (13.5-17.5); IMMATURE GRANULOCYTE % 2.8 % (0-3.0); LYMPH # 2.1 10^3/uL (1.5-4.5); MEAN CORPUSCULAR HEMOGLOBIN 31.4 pg (27.0-33.0); MEAN CORPUSCULAR HGB CONC 32.8 g/dl (32.0-36.5); MEAN CORPUSCULAR VOLUME 95.7 fl (80.0-96.0); MONO # 1.5 10^3/uL (0.0-0.8); MONO % 14.4 % (0.0-5.0); NEUTROPHILS # 6.5 10^3/uL (1.8-7.7); NEUTROPHILS % 61.4 % (36.0-66.0); PLATELET COUNT, AUTOMATED 209 10^3/uL (150-450); RED BLOOD COUNT 4.94 10^6/uL (4.30-6.10); RED CELL DISTRIBUTION WIDTH 14.5 % (11.5-14.5); WHITE BLOOD COUNT 10.6 10^3/uL (4.0-10.0)
[2018-06-22 14:19] LABS: ALBUMIN 3.1 GM/DL (3.2-5.2); ALBUMIN/GLOBULIN RATIO 0.94 (1.00-1.93); ALKALINE PHOSPHATASE 65 U/L (45-117); ALT/SGPT 25 U/L (12-78); AMYLASE 30 U/L (25-115); ANION GAP 6 MEQ/L (8-16); AST/SGOT 17 U/L (7-37); BILIRUBIN,TOTAL 0.4 MG/DL (0.2-1.0); BLOOD UREA NITROGEN 14 MG/DL (7-18); CALCIUM LEVEL 8.4 MG/DL (8.5-10.1); CARBON DIOXIDE LEVEL 33 MEQ/L (21-32); CHLORIDE LEVEL 101 MEQ/L (98-107); GLOMERULAR FILTRATION RATE > 60.0 (>56); GLUCOSE, FASTING 70 MG/DL (70-100); LIPASE 110 U/L (73-393); POTASSIUM SERUM 4.4 MEQ/L (3.5-5.1); SODIUM LEVEL 140 MEQ/L (136-145); TOTAL PROTEIN 6.4 GM/DL (6.4-8.2)
== END ==
LOC: M SFHCPLAZ 11:56
DX: R10.84 Generalized abdominal pain (principal)

== ENCOUNTER 2018-06-27 18:01 | Emergency (ER) | payer OTHER ==
[2018-06-27 19:02] LABS: BASO # 0.1 10^3/uL (0.0-0.2); BASO % 0.6 % (0.0-1.0); EOS # 0.1 10^3/uL (0.0-0.50); HEMATOCRIT 46.1 % (42.0-52.0); IMMATURE GRANULOCYTE % 1.2 % (0-3.0); LYMPH % 22.3 % (24.0-44.0); MEAN CORPUSCULAR HEMOGLOBIN 31.6 pg (27.0-33.0); MEAN CORPUSCULAR HGB CONC 32.5 g/dl (32.0-36.5); MEAN CORPUSCULAR VOLUME 97.3 fl (80.0-96.0); MONO # 1.5 10^3/uL (0.0-0.8); MONO % 16.6 % (0.0-5.0); NEUTROPHILS # 5.3 10^3/uL (1.8-7.7); NEUTROPHILS % 58.3 % (36.0-66.0); PLATELET COUNT, AUTOMATED 184 10^3/uL (150-450); RED BLOOD COUNT 4.74 10^6/uL (4.30-6.10); RED CELL DISTRIBUTION WIDTH 14.6 % (11.5-14.5)
[2018-06-27 19:14] LABS: INR 0.97
[2018-06-27 19:15] LABS: PARTIAL THROMBOPLASTIN TIME 26.6 SECONDS (25.4-37.6)
[2018-06-27] MEDS: ONDANSETRON 4 MG ORAL DISINTEGRATING TAB (Q0162 PER 1MG) PO (19:31)
[2018-06-27 19:42] LABS: ANION GAP 8 MEQ/L (8-16); BLOOD UREA NITROGEN 17 MG/DL (7-18); CALCIUM LEVEL 8.6 MG/DL (8.5-10.1); CARBON DIOXIDE LEVEL 31 MEQ/L (21-32); CHLORIDE LEVEL 105 MEQ/L (98-107); CREATININE FOR GFR 1.33 MG/DL (0.70-1.30); GLOMERULAR FILTRATION RATE > 60.0 (>56); GLUCOSE, FASTING 83 MG/DL (70-100); SODIUM LEVEL 144 MEQ/L (136-145)
== END 2018-06-27 19:57 | disposition home or self-care (01) ==
LOC: M ED 18:01
DX: K64.8 Other hemorrhoids (principal); K92.1 Melena; K62.89 Other specified diseases of anus and rectum; R25.1 Tremor, unspecified; R51 Headache; I10 Essential (primary) hypertension; E78.00 Pure hypercholesterolemia, unspecified; R07.9 Chest pain, unspecified; J45.909 Unspecified asthma, uncomplicated; G47.30 Sleep apnea, unspecified; H40.9 Unspecified glaucoma; K21.9 Gastro-esophageal reflux disease without esophagitis; Z87.442 Personal history of urinary calculi; M54.9 Dorsalgia, unspecified; E03.9 Hypothyroidism, unspecified; E05.90 Thyrotoxicosis, unspecified without thyrotoxic crisis or storm; K76.89 Other specified diseases of liver; F41.0 Panic disorder [episodic paroxysmal anxiety]; F32.9 Major depressive disorder, single episode, unspecified; Z87.891 Personal history of nicotine dependence; Z88.5 Allergy status to narcotic agent; Z91.040 Latex allergy status; Z91.048 Other nonmedicinal substance allergy status; Z79.899 Other long term (current) drug therapy; Z79.82 Long term (current) use of aspirin
CPT/HCPCS: Q0162

== ENCOUNTER 2018-06-29 15:11 | Emergency (ER) | payer OTHER ==
[2018-06-29 15:44] LABS: BASO # 0.1 10^3/uL (0.0-0.2); BASO % 0.6 % (0.0-1.0); EOS # 0.1 10^3/uL (0.0-0.50); EOS % 1.1 % (0.0-3.0); HEMATOCRIT 45.3 % (42.0-52.0); HEMOGLOBIN 14.7 g/dl (13.5-17.5); IMMATURE GRANULOCYTE % 1.3 % (0-3.0); LYMPH # 1.7 10^3/uL (1.5-4.5); LYMPH % 19.9 % (24.0-44.0); MEAN CORPUSCULAR HEMOGLOBIN 31.5 pg (27.0-33.0); MEAN CORPUSCULAR HGB CONC 32.5 g/dl (32.0-36.5); MONO # 1.2 10^3/uL (0.0-0.8); NEUTROPHILS # 5.3 10^3/uL (1.8-7.7); NEUTROPHILS % 63.1 % (36.0-66.0); PLATELET COUNT, AUTOMATED 183 10^3/uL (150-450); RED BLOOD COUNT 4.67 10^6/uL (4.30-6.10); RED CELL DISTRIBUTION WIDTH 14.8 % (11.5-14.5); WHITE BLOOD COUNT 8.4 10^3/uL (4.0-10.0)
[2018-06-29] MEDS: MORPHINE 4 MG/ML 1ML VIAL/SYRINGE (J2270) IV (15:53)
[2018-06-29 16:04] LABS: ANION GAP 8 MEQ/L (8-16); BLOOD UREA NITROGEN 12 MG/DL (7-18); CALCIUM LEVEL 8.6 MG/DL (8.5-10.1); CARBON DIOXIDE LEVEL 31 MEQ/L (21-32); CHLORIDE LEVEL 102 MEQ/L (98-107); GLOMERULAR FILTRATION RATE > 60.0 (>56); GLUCOSE, FASTING 91 MG/DL (70-100); POTASSIUM SERUM 4.3 MEQ/L (3.5-5.1); SODIUM LEVEL 141 MEQ/L (136-145)
== END 2018-06-29 16:32 | disposition home or self-care (01) ==
LOC: M ED 15:11
DX: M54.5 Low back pain (principal); I25.10 Atherosclerotic heart disease of native coronary artery without angina pectoris; E55.9 Vitamin D deficiency, unspecified; G47.30 Sleep apnea, unspecified; F32.9 Major depressive disorder, single episode, unspecified; F41.9 Anxiety disorder, unspecified; K21.9 Gastro-esophageal reflux disease without esophagitis; Z95.1 Presence of aortocoronary bypass graft; Z87.891 Personal history of nicotine dependence; Z79.82 Long term (current) use of aspirin; Z79.899 Other long term (current) drug therapy; Z88.5 Allergy status to narcotic agent; Z91.89 Other specified personal risk factors, not elsewhere classified; Z91.040 Latex allergy status
CPT/HCPCS: J2270

== ENCOUNTER → 2018-07-01 | Outpatient (CLI) | payer OTHER | LOC: M PAIN 08:30 | DX: M53.3 Sacrococcygeal disorders, not elsewhere classified (principal); M47.897 Other spondylosis, lumbosacral region; M51.16 Intervertebral disc disorders with radiculopathy, lumbar region; F32.9 Major depressive disorder, single episode, unspecified; F41.9 Anxiety disorder, unspecified; E78.5 Hyperlipidemia, unspecified; K21.9 Gastro-esophageal reflux disease without esophagitis; E55.9 Vitamin D deficiency, unspecified; G47.33 Obstructive sleep apnea (adult) (pediatric); E66.01 Morbid (severe) obesity due to excess calories; Z68.42 Body mass index [BMI] 45.0-49.9, adult; Z79.82 Long term (current) use of aspirin; Z79.899 Other long term (current) drug therapy; Z88.5 Allergy status to narcotic agent; Z91.040 Latex allergy status; Z87.891 Personal history of nicotine dependence | CPT/HCPCS: G0463 ==

== ENCOUNTER 2018-07-02 11:05 | Emergency (ER) | payer OTHER ==
[2018-07-02] MEDS: NS 1,000 ML IV (12:50)
[2018-07-02 12:58] LABS: BASO % 0.5 % (0.0-1.0); EOS # 0.1 10^3/uL (0.0-0.50); EOS % 0.8 % (0.0-3.0); HEMATOCRIT 48.4 % (42.0-52.0); HEMOGLOBIN 15.9 g/dl (13.5-17.5); IMMATURE GRANULOCYTE % 1.3 % (0-3.0); LYMPH # 1.9 10^3/uL (1.5-4.5); LYMPH % 24.8 % (24.0-44.0); MEAN CORPUSCULAR HEMOGLOBIN 31.5 pg (27.0-33.0); MEAN CORPUSCULAR HGB CONC 32.9 g/dl (32.0-36.5); MONO # 0.8 10^3/uL (0.0-0.8); MONO % 11.1 % (0.0-5.0); NEUTROPHILS # 4.6 10^3/uL (1.8-7.7); NEUTROPHILS % 61.5 % (36.0-66.0); PLATELET COUNT, AUTOMATED 190 10^3/uL (150-450); RED BLOOD COUNT 5.04 10^6/uL (4.30-6.10); RED CELL DISTRIBUTION WIDTH 14.6 % (11.5-14.5); WHITE BLOOD COUNT 7.5 10^3/uL (4.0-10.0)
[2018-07-02 13:01] LABS: APPEARANCE, URINE CLEAR (CLEAR); BACTERIA, URINE AUTO NEGATIVE (NEGATIVE); BILIRUBIN, URINE AUTO NEGATIVE (NEGATIVE); BLOOD, URINE BLOOD NEGATIVE (NEGATIVE); COLOR, URINE YELLOW (YELLOW); GLUCOSE, URINE (UA) AUTO NEGATIVE (NEGATIVE); KETONE, URINE AUTO NEGATIVE (NEGATIVE); LEUKOCYTE ESTERASE, URINE AUTO NEGATIVE (NEGATIVE); NITRITE, URINE AUTO NEGATIVE (NEGATIVE); PROTEIN, URINE AUTO NEGATIVE (NEGATIVE); RBC, URINE AUTO 2 /HPF (0-3); SPECIFIC GRAVITY URINE AUTO 1.008 (1.002-1.035); SQUAMOUS EPITHELIAL CELL UR AU 0 /HPF (0-6); UROBILINOGEN, URINE AUTO 0.2 mg/dL (0.0-2.0); WBC, URINE AUTO 1 /HPF (0-3)
[2018-07-02 13:32] LABS: ALBUMIN 3.4 GM/DL (3.2-5.2); ALBUMIN/GLOBULIN RATIO 0.97 (1.00-1.93); ALKALINE PHOSPHATASE 66 U/L (45-117); ALT/SGPT 25 U/L (12-78); AMYLASE 24 U/L (25-115); ANION GAP 6 MEQ/L (8-16); AST/SGOT 18 U/L (7-37); BILIRUBIN,DIRECT < 0.1 MG/DL (0.0-0.2); BILIRUBIN,TOTAL 0.5 MG/DL (0.2-1.0); BLOOD UREA NITROGEN 13 MG/DL (7-18); CALCIUM LEVEL 8.5 MG/DL (8.5-10.1); CARBON DIOXIDE LEVEL 31 MEQ/L (21-32); CHLORIDE LEVEL 102 MEQ/L (98-107); CREATININE FOR GFR 1.36 MG/DL (0.70-1.30); GLOMERULAR FILTRATION RATE 58.8 (>56); GLUCOSE, FASTING 89 MG/DL (70-100); LIPASE 90 U/L (73-393); SODIUM LEVEL 139 MEQ/L (136-145); TOTAL PROTEIN 6.9 GM/DL (6.4-8.2)
[2018-07-02] MEDS ORDERED: ISOVUE-370 76% 100ML VIAL (Q9967) As Ordered (13:35)
== END 2018-07-02 14:29 | disposition home or self-care (01) ==
LOC: M ED 11:05
DX: R10.31 Right lower quadrant pain (principal); K76.89 Other specified diseases of liver; Z88.5 Allergy status to narcotic agent; Z91.040 Latex allergy status; Z91.048 Other nonmedicinal substance allergy status; Z79.899 Other long term (current) drug therapy; Z79.82 Long term (current) use of aspirin; Z87.891 Personal history of nicotine dependence; Z95.5 Presence of coronary angioplasty implant and graft; Z98.890 Other specified postprocedural states
CPT/HCPCS: Q9967

== ENCOUNTER 2018-07-05 15:51 | Emergency (ER) | payer OTHER ==
[2018-07-05 16:46] LABS: BASO % 0.4 % (0.0-1.0); EOS # 0.1 10^3/uL (0.0-0.50); EOS % 1.3 % (0.0-3.0); HEMATOCRIT 44.7 % (42.0-52.0); HEMOGLOBIN 14.8 g/dl (13.5-17.5); IMMATURE GRANULOCYTE % 0.9 % (0-3.0); LYMPH # 1.6 10^3/uL (1.5-4.5); LYMPH % 20.6 % (24.0-44.0); MEAN CORPUSCULAR HEMOGLOBIN 31.6 pg (27.0-33.0); MEAN CORPUSCULAR HGB CONC 33.1 g/dl (32.0-36.5); MEAN CORPUSCULAR VOLUME 95.3 fl (80.0-96.0); MONO # 1.1 10^3/uL (0.0-0.8); MONO % 14.3 % (0.0-5.0); NEUTROPHILS # 4.9 10^3/uL (1.8-7.7); NEUTROPHILS % 62.5 % (36.0-66.0); PLATELET COUNT, AUTOMATED 192 10^3/uL (150-450); RED BLOOD COUNT 4.69 10^6/uL (4.30-6.10); RED CELL DISTRIBUTION WIDTH 14.5 % (11.5-14.5); WHITE BLOOD COUNT 7.8 10^3/uL (4.0-10.0)
[2018-07-05 17:02] LABS: D-DIMER QUANT 622.2 ng/ml (<500)
[2018-07-05 17:17] LABS: ANION GAP 6 MEQ/L (8-16); BLOOD UREA NITROGEN 15 MG/DL (7-18); CALCIUM LEVEL 8.9 MG/DL (8.5-10.1); CARBON DIOXIDE LEVEL 33 MEQ/L (21-32); CHLORIDE LEVEL 103 MEQ/L (98-107); CPK CREATINE PHOSPHOKINASE 219 U/L (39-308); CREATININE FOR GFR 1.32 MG/DL (0.70-1.30); GLOMERULAR FILTRATION RATE > 60.0 (>56); GLUCOSE, FASTING 85 MG/DL (70-100); POTASSIUM SERUM 4.5 MEQ/L (3.5-5.1); SODIUM LEVEL 142 MEQ/L (136-145); TROPONIN I < 0.02 NG/ML (< 0.10)
[2018-07-05] MEDS: ONDANSETRON 4MG/2ML VIAL (J2405) IV (19:20)
[2018-07-05] MEDS ORDERED: ISOVUE-370 76% 100ML VIAL (Q9967) As Ordered (19:21)
[2018-07-05 19:46] LABS: CPK CREATINE PHOSPHOKINASE 221 U/L (39-308); MB/CK RELATIVE INDEX 1.09 (< OR =4); TROPONIN I < 0.02 NG/ML (< 0.10)
[2018-07-05] MEDS: GI COCKTAIL 50ML BTL(HYOSCYAMINE/MAALOX/LIDOCAINE VISCOUS)(1:3:1) PO (21:03)
== END 2018-07-05 22:28 | disposition home or self-care (01) ==
LOC: M ED 15:51
DX: R10.13 Epigastric pain (principal); I25.10 Atherosclerotic heart disease of native coronary artery without angina pectoris; I10 Essential (primary) hypertension; E78.5 Hyperlipidemia, unspecified; Z95.5 Presence of coronary angioplasty implant and graft; Z79.82 Long term (current) use of aspirin; Z79.899 Other long term (current) drug therapy; Z88.5 Allergy status to narcotic agent; Z91.89 Other specified personal risk factors, not elsewhere classified; Z91.040 Latex allergy status
CPT/HCPCS: J2405

== ENCOUNTER → 2018-07-13 | Outpatient (REF) | payer OTHER ==
[2018-07-15 00:07] LABS: H PYLORI STOOL ANTIGEN Negative (Negative)
== END ==
LOC: M SFHCPLAZ 13:18
DX: K21.9 Gastro-esophageal reflux disease without esophagitis (principal)

== ENCOUNTER 2018-07-16 09:53 | Emergency (ER) | payer OTHER ==
[2018-07-16] MEDS: NS 1,000 ML IV (10:29)
[2018-07-16 10:59] LABS: BASO # 0.1 10^3/uL (0.0-0.2); BASO % 0.8 % (0.0-1.0); EOS # 0.1 10^3/uL (0.0-0.50); EOS % 0.8 % (0.0-3.0); HEMATOCRIT 46.9 % (42.0-52.0); HEMOGLOBIN 15.7 g/dl (13.5-17.5); IMMATURE GRANULOCYTE % 1.5 % (0-3.0); LYMPH # 1.6 10^3/uL (1.5-4.5); MEAN CORPUSCULAR HEMOGLOBIN 32.2 pg (27.0-33.0); MEAN CORPUSCULAR HGB CONC 33.5 g/dl (32.0-36.5); MEAN CORPUSCULAR VOLUME 96.1 fl (80.0-96.0); MONO # 1.3 10^3/uL (0.0-0.8); MONO % 19.6 % (0.0-5.0); NEUTROPHILS # 3.4 10^3/uL (1.8-7.7); NEUTROPHILS % 52.3 % (36.0-66.0); PLATELET COUNT, AUTOMATED 200 10^3/uL (150-450); RED BLOOD COUNT 4.88 10^6/uL (4.30-6.10); RED CELL DISTRIBUTION WIDTH 14.5 % (11.5-14.5); WHITE BLOOD COUNT 6.5 10^3/uL (4.0-10.0)
[2018-07-16 11:18] LABS: ALBUMIN 3.4 GM/DL (3.2-5.2); ALBUMIN/GLOBULIN RATIO 0.97 (1.00-1.93); ALKALINE PHOSPHATASE 61 U/L (45-117); ALT/SGPT 38 U/L (12-78); ANION GAP 6 MEQ/L (8-16); AST/SGOT 24 U/L (7-37); BILIRUBIN,DIRECT 0.1 MG/DL (0.0-0.2); BILIRUBIN,TOTAL 0.3 MG/DL (0.2-1.0); BLOOD UREA NITROGEN 12 MG/DL (7-18); CARBON DIOXIDE LEVEL 32 MEQ/L (21-32); CHLORIDE LEVEL 104 MEQ/L (98-107); CREATININE FOR GFR 1.22 MG/DL (0.70-1.30); GLOMERULAR FILTRATION RATE > 60.0 (>56); GLUCOSE, FASTING 83 MG/DL (70-100); LIPASE 138 U/L (73-393); POTASSIUM SERUM 4.3 MEQ/L (3.5-5.1); SODIUM LEVEL 142 MEQ/L (136-145); TOTAL PROTEIN 6.9 GM/DL (6.4-8.2)
== END 2018-07-16 12:03 | disposition home or self-care (01) ==
LOC: M ED 09:53
DX: R10.9 Unspecified abdominal pain (principal); G89.29 Other chronic pain; R11.10 Vomiting, unspecified; K83.8 Other specified diseases of biliary tract; I25.10 Atherosclerotic heart disease of native coronary artery without angina pectoris; G47.33 Obstructive sleep apnea (adult) (pediatric); F32.9 Major depressive disorder, single episode, unspecified; F41.9 Anxiety disorder, unspecified; K21.9 Gastro-esophageal reflux disease without esophagitis; K22.70 Barrett's esophagus without dysplasia; M54.9 Dorsalgia, unspecified; Z87.891 Personal history of nicotine dependence; Z88.5 Allergy status to narcotic agent; Z91.040 Latex allergy status; Z91.048 Other nonmedicinal substance allergy status; Z79.899 Other long term (current) drug therapy; Z79.82 Long term (current) use of aspirin
CPT/HCPCS: 83690

== ENCOUNTER → 2018-07-21 | Outpatient (CLI) | payer OTHER | LOC: M WUC 14:41 | DX: M79.652 Pain in left thigh (principal) | CPT/HCPCS: 73552 ==

== ENCOUNTER → 2018-07-23 | Outpatient (CLI) | payer OTHER | LOC: M RAD 06:59 | DX: R10.11 Right upper quadrant pain (principal) | CPT/HCPCS: J2805 ==

== ENCOUNTER → 2018-07-26 | Outpatient (REF) | payer OTHER ==
[2018-07-26 11:31] LABS: BASO # 0.1 10^3/uL (0.0-0.2); BASO % 0.8 % (0.0-1.0); EOS # 0.1 10^3/uL (0.0-0.50); EOS % 0.7 % (0.0-3.0); HEMATOCRIT 46.9 % (42.0-52.0); HEMOGLOBIN 15.4 g/dl (13.5-17.5); IMMATURE GRANULOCYTE % 1.4 % (0-3.0); LYMPH # 1.5 10^3/uL (1.5-4.5); LYMPH % 20.1 % (24.0-44.0); MEAN CORPUSCULAR HEMOGLOBIN 31.7 pg (27.0-33.0); MEAN CORPUSCULAR HGB CONC 32.8 g/dl (32.0-36.5); MEAN CORPUSCULAR VOLUME 96.5 fl (80.0-96.0); MONO # 1.1 10^3/uL (0.0-0.8); MONO % 14.6 % (0.0-5.0); NEUTROPHILS # 4.6 10^3/uL (1.8-7.7); NEUTROPHILS % 62.4 % (36.0-66.0); PLATELET COUNT, AUTOMATED 191 10^3/uL (150-450); RED BLOOD COUNT 4.86 10^6/uL (4.30-6.10); WHITE BLOOD COUNT 7.4 10^3/uL (4.0-10.0)
[2018-07-26 12:24] LABS: ALBUMIN 3.2 GM/DL (3.2-5.2); ALBUMIN/GLOBULIN RATIO 0.94 (1.00-1.93); ALKALINE PHOSPHATASE 73 U/L (45-117); ALT/SGPT 28 U/L (12-78); ANION GAP 5 MEQ/L (8-16); AST/SGOT 17 U/L (7-37); BILIRUBIN,TOTAL 0.3 MG/DL (0.2-1.0); BLOOD UREA NITROGEN 12 MG/DL (7-18); CALCIUM LEVEL 8.7 MG/DL (8.5-10.1); CARBON DIOXIDE LEVEL 33 MEQ/L (21-32); CHLORIDE LEVEL 103 MEQ/L (98-107); CHOLESTEROL LEVEL 151 MG/DL (<200); CHOLESTEROL RISK RATIO 3.775 (<5); CREATININE FOR GFR 1.21 MG/DL (0.70-1.30); FREE T4 1.01 NG/DL (0.76-1.46); GLOMERULAR FILTRATION RATE > 60.0 (>56); GLUCOSE, FASTING 90 MG/DL (70-100); HDL CHOLESTEROL 40 MG/DL (>40); IRON (FE) 76 UG/DL (65-175); LDL CHOLESTEROL 58 MG/DL (<100); NON-HDL-C 111 MG/DL; PERCENT SATURATION 22.6 % (19.7-50.0); POTASSIUM SERUM 4.2 MEQ/L (3.5-5.1); SODIUM LEVEL 141 MEQ/L (136-145); TOTAL IRON BINDING CAPACITY 336 UG/DL (250-450); TOTAL PROTEIN 6.6 GM/DL (6.4-8.2); TRIGLYCERIDES LEVEL 267 MG/DL (<150)
[2018-07-26 15:58] LABS: GOLD SPEC TUBE RECIEVED
== END ==
LOC: M SFHCPLAZ 10:08
DX: D50.0 Iron deficiency anemia secondary to blood loss (chronic) (principal); E78.5 Hyperlipidemia, unspecified; E03.9 Hypothyroidism, unspecified

== ENCOUNTER → 2018-07-29 | Outpatient (CLI) | payer OTHER | LOC: M PAIN 15:15 | DX: M47.897 Other spondylosis, lumbosacral region (principal); M51.16 Intervertebral disc disorders with radiculopathy, lumbar region; G89.29 Other chronic pain; F32.9 Major depressive disorder, single episode, unspecified; F41.9 Anxiety disorder, unspecified; E78.5 Hyperlipidemia, unspecified; K21.9 Gastro-esophageal reflux disease without esophagitis; E55.9 Vitamin D deficiency, unspecified; G47.33 Obstructive sleep apnea (adult) (pediatric); Z79.82 Long term (current) use of aspirin; Z79.899 Other long term (current) drug therapy; Z88.5 Allergy status to narcotic agent; Z91.040 Latex allergy status; Z87.891 Personal history of nicotine dependence | CPT/HCPCS: G0463 ==

== ENCOUNTER → 2018-08-02 | Outpatient (CLI) | payer OTHER | LOC: M RAD 11:29 | DX: M47.897 Other spondylosis, lumbosacral region (principal) | CPT/HCPCS: 73502 ==

== ENCOUNTER 2018-08-04 10:46 | Emergency (ER) | payer OTHER ==
[2018-08-04] MEDS: PROMETHAZINE INJ 25 MG/ML VIAL (J2550) IM (11:31)
== END 2018-08-04 12:09 | disposition home or self-care (01) ==
LOC: M ED 10:46
DX: R11.0 Nausea (principal); I50.9 Heart failure, unspecified; E11.9 Type 2 diabetes mellitus without complications; J45.909 Unspecified asthma, uncomplicated; J44.9 Chronic obstructive pulmonary disease, unspecified; E03.9 Hypothyroidism, unspecified; K76.9 Liver disease, unspecified; F41.9 Anxiety disorder, unspecified; F33.9 Major depressive disorder, recurrent, unspecified; G47.33 Obstructive sleep apnea (adult) (pediatric); Z87.442 Personal history of urinary calculi; Z95.1 Presence of aortocoronary bypass graft; Z87.891 Personal history of nicotine dependence; Z88.5 Allergy status to narcotic agent; Z91.040 Latex allergy status; Z91.048 Other nonmedicinal substance allergy status
CPT/HCPCS: 96372

== ENCOUNTER → 2018-08-18 | Outpatient (CLI) | payer OTHER ==
[~2018-08-18] MED LIST changes: -TRIAMCINOLONE ACETONIDE SUSP 40 MG/ML VIAL (J3301) As Ordered; -diazePAM 5 MG TAB As Ordered; -oxyCODONE 5MG TAB As Ordered
== END ==
LOC: M PAIN 11:15
DX: G89.29 Other chronic pain (principal); M47.816 Spondylosis without myelopathy or radiculopathy, lumbar region; M47.817 Spondylosis without myelopathy or radiculopathy, lumbosacral region; F32.9 Major depressive disorder, single episode, unspecified; E78.5 Hyperlipidemia, unspecified; K21.9 Gastro-esophageal reflux disease without esophagitis; K22.70 Barrett's esophagus without dysplasia; E55.9 Vitamin D deficiency, unspecified; G47.33 Obstructive sleep apnea (adult) (pediatric); E66.01 Morbid (severe) obesity due to excess calories; Z68.42 Body mass index [BMI] 45.0-49.9, adult; Z79.82 Long term (current) use of aspirin; Z79.899 Other long term (current) drug therapy; Z88.5 Allergy status to narcotic agent; Z91.040 Latex allergy status; Z87.891 Personal history of nicotine dependence; Z86.79 Personal history of other diseases of the circulatory system
CPT/HCPCS: Q9967

== ENCOUNTER 2018-08-23 19:29 | Emergency (ER) | payer OTHER ==
[2018-08-23] MEDS: ASPIRIN 325 MG TAB PO (19:56)
[2018-08-23 19:59] LABS: BASO % 0.3 % (0.0-1.0); EOS # 0.1 10^3/uL (0.0-0.50); EOS % 0.8 % (0.0-3.0); HEMATOCRIT 45.2 % (42.0-52.0); IMMATURE GRANULOCYTE % 0.6 % (0-3.0); LYMPH # 1.7 10^3/uL (1.5-4.5); LYMPH % 19.3 % (24.0-44.0); MEAN CORPUSCULAR HEMOGLOBIN 31.4 pg (27.0-33.0); MEAN CORPUSCULAR HGB CONC 33.2 g/dl (32.0-36.5); MEAN CORPUSCULAR VOLUME 94.8 fl (80.0-96.0); MONO # 1.5 10^3/uL (0.0-0.8); NEUTROPHILS # 5.5 10^3/uL (1.8-7.7); PLATELET COUNT, AUTOMATED 207 10^3/uL (150-450); RED BLOOD COUNT 4.77 10^6/uL (4.30-6.10); RED CELL DISTRIBUTION WIDTH 14.3 % (11.5-14.5); WHITE BLOOD COUNT 8.9 10^3/uL (4.0-10.0)
[2018-08-23 20:24] LABS: ANION GAP 4 MEQ/L (8-16); BLOOD UREA NITROGEN 13 MG/DL (7-18); CALCIUM LEVEL 8.7 MG/DL (8.5-10.1); CARBON DIOXIDE LEVEL 32 MEQ/L (21-32); CHLORIDE LEVEL 105 MEQ/L (98-107); CPK CREATINE PHOSPHOKINASE 550 U/L (39-308); CREATININE FOR GFR 1.33 MG/DL (0.70-1.30); GLOMERULAR FILTRATION RATE > 60.0 (>56); GLUCOSE, FASTING 91 MG/DL (70-100); MB/CK RELATIVE INDEX 1.22 (< OR =4); POTASSIUM SERUM 4.4 MEQ/L (3.5-5.1); SODIUM LEVEL 141 MEQ/L (136-145); TROPONIN I < 0.02 NG/ML (< 0.10)
[2018-08-23 20:26] LABS: INR 0.93; PROTHROMBIN TIME 12.6 SECONDS (12.1-14.4)
[2018-08-23 20:27] LABS: PARTIAL THROMBOPLASTIN TIME 27.8 SECONDS (25.4-37.6)
[2018-08-23] MEDS: NS 500 ML IV (20:30)
[2018-08-23] MEDS: KETOROLAC 30 MG/ML VIAL (J1885) IV (20:30)
[2018-08-23] MEDS ORDERED: ISOVUE-370 76% 100ML VIAL (Q9967) As Ordered (20:37)
[2018-08-24 00:04] LABS: CPK CREATINE PHOSPHOKINASE 523 U/L (39-308); MB/CK RELATIVE INDEX 0.99 (< OR =4); TROPONIN I < 0.02 NG/ML (< 0.10)
[2018-08-24] MEDS: MORPHINE 2 MG/ML 1ML SYRINGE (J2270) IV (00:15)
== END 2018-08-24 01:01 | disposition home or self-care (01) ==
LOC: M ED 08-24 01:01
DX: M94.0 Chondrocostal junction syndrome [Tietze] (principal); I25.10 Atherosclerotic heart disease of native coronary artery without angina pectoris; I10 Essential (primary) hypertension; E78.5 Hyperlipidemia, unspecified
CPT/HCPCS: Q9967

== ENCOUNTER 2018-08-25 11:53 | Emergency (ER) | payer OTHER ==
[2018-08-25] MEDS: ACETAMINOPHEN 325 MG TAB PO (13:15)
== END 2018-08-25 13:15 | disposition home or self-care (01) ==
LOC: M ED 11:53
DX: M94.0 Chondrocostal junction syndrome [Tietze] (principal); G89.4 Chronic pain syndrome; R00.1 Bradycardia, unspecified; I25.10 Atherosclerotic heart disease of native coronary artery without angina pectoris; I10 Essential (primary) hypertension; E87.5 Hyperkalemia; E11.9 Type 2 diabetes mellitus without complications; E66.9 Obesity, unspecified; F32.9 Major depressive disorder, single episode, unspecified; Z95.5 Presence of coronary angioplasty implant and graft; Z79.82 Long term (current) use of aspirin; Z79.899 Other long term (current) drug therapy; Z88.5 Allergy status to narcotic agent; Z91.89 Other specified personal risk factors, not elsewhere classified; Z91.040 Latex allergy status
CPT/HCPCS: 93005

== ENCOUNTER → 2018-09-01 | Outpatient (CLI) | payer OTHER | LOC: M PAIN 11:30 | DX: M53.3 Sacrococcygeal disorders, not elsewhere classified (principal); E78.5 Hyperlipidemia, unspecified; K21.9 Gastro-esophageal reflux disease without esophagitis; K22.70 Barrett's esophagus without dysplasia; E55.9 Vitamin D deficiency, unspecified; G47.33 Obstructive sleep apnea (adult) (pediatric); I25.10 Atherosclerotic heart disease of native coronary artery without angina pectoris; E03.9 Hypothyroidism, unspecified; E66.01 Morbid (severe) obesity due to excess calories; Z68.42 Body mass index [BMI] 45.0-49.9, adult; Z79.82 Long term (current) use of aspirin; Z79.899 Other long term (current) drug therapy; Z88.5 Allergy status to narcotic agent; Z91.040 Latex allergy status; Z87.891 Personal history of nicotine dependence; Z86.59 Personal history of other mental and behavioral disorders | CPT/HCPCS: G0463 ==

== ENCOUNTER 2018-09-13 13:35 | Emergency (ER) | payer OTHER, MEDICAID ==
[2018-09-13 14:56] LABS: KETONE, URINE AUTO RFX NEGATIVE (NEGATIVE); LEUKOCYTE ESTERASE UR AUTO RFX NEGATIVE (NEGATIVE); MUCUS, URINE RFX SMALL (NEGATIVE); NITRITE, URINE AUTO RFX NEGATIVE (NEGATIVE); RBC, URINE AUTO RFX 1 /HPF (0-3); SPECIFIC GRAVITY UR AUTO RFX 1.016 (1.002-1.035); SQUAM EPITHELIAL CELL UR AURFX 0 /HPF (0-6); WBC, URINE AUTO RFX 0 /HPF (0-3)
[2018-09-13] MEDS: ONDANSETRON 4 MG ORAL DISINTEGRATING TAB (Q0162 PER 1MG) PO (15:13)
[2018-09-13] MEDS: traMADol 50 MG TAB PO (15:16)
[2018-09-13 15:23] LABS: BASO % 0.5 % (0.0-1.0); EOS # 0.1 10^3/uL (0.0-0.50); EOS % 1.2 % (0.0-3.0); HEMATOCRIT 43.6 % (42.0-52.0); HEMOGLOBIN 14.5 g/dl (13.5-17.5); IMMATURE GRANULOCYTE % 0.8 % (0-3.0); LYMPH # 1.7 10^3/uL (1.5-4.5); MEAN CORPUSCULAR HEMOGLOBIN 31.3 pg (27.0-33.0); MEAN CORPUSCULAR HGB CONC 33.3 g/dl (32.0-36.5); MEAN CORPUSCULAR VOLUME 94.2 fl (80.0-96.0); MONO # 1.3 10^3/uL (0.0-0.8); MONO % 19.6 % (0.0-5.0); NEUTROPHILS # 3.3 10^3/uL (1.8-7.7); NEUTROPHILS % 50.9 % (36.0-66.0); PLATELET COUNT, AUTOMATED 208 10^3/uL (150-450); RED BLOOD COUNT 4.63 10^6/uL (4.30-6.10); RED CELL DISTRIBUTION WIDTH 14.4 % (11.5-14.5); WHITE BLOOD COUNT 6.4 10^3/uL (4.0-10.0)
[2018-09-13 15:47] LABS: ALBUMIN 3.5 GM/DL (3.2-5.2); ALBUMIN/GLOBULIN RATIO 1.17 (1.00-1.93); ALKALINE PHOSPHATASE 64 U/L (45-117); ALT/SGPT 31 U/L (12-78); ANION GAP 4 MEQ/L (8-16); AST/SGOT 27 U/L (7-37); BILIRUBIN,DIRECT < 0.1 MG/DL (0.0-0.2); BILIRUBIN,TOTAL 0.4 MG/DL (0.2-1.0); BLOOD UREA NITROGEN 13 MG/DL (7-18); CALCIUM LEVEL 9.1 MG/DL (8.5-10.1); CARBON DIOXIDE LEVEL 32 MEQ/L (21-32); CHLORIDE LEVEL 104 MEQ/L (98-107); CREATININE FOR GFR 1.23 MG/DL (0.70-1.30); GLOMERULAR FILTRATION RATE > 60.0 (>56); GLUCOSE, FASTING 94 MG/DL (70-100); LIPASE 130 U/L (73-393); POTASSIUM SERUM 4.9 MEQ/L (3.5-5.1); SODIUM LEVEL 140 MEQ/L (136-145); TOTAL PROTEIN 6.5 GM/DL (6.4-8.2)
== END 2018-09-13 16:15 | disposition home or self-care (01) ==
LOC: M ED 13:35
DX: R10.9 Unspecified abdominal pain (principal); G89.29 Other chronic pain; R11.0 Nausea; I10 Essential (primary) hypertension; K21.9 Gastro-esophageal reflux disease without esophagitis; F17.200 Nicotine dependence, unspecified, uncomplicated; Z79.890 Hormone replacement therapy; Z79.899 Other long term (current) drug therapy; Z82.49 Family history of ischemic heart disease and other diseases of the circulatory system; Z95.5 Presence of coronary angioplasty implant and graft; Z88.5 Allergy status to narcotic agent; Z91.040 Latex allergy status; Z91.048 Other nonmedicinal substance allergy status
CPT/HCPCS: Q0162

== ENCOUNTER 2018-09-15 10:13 | Emergency (ER) | payer OTHER | END 2018-09-15 13:49 | disposition home or self-care (01) | LOC: M ED 10:13 | DX: R60.9 Edema, unspecified (principal); M79.661 Pain in right lower leg; E11.9 Type 2 diabetes mellitus without complications; I11.0 Hypertensive heart disease with heart failure; I50.9 Heart failure, unspecified; I25.10 Atherosclerotic heart disease of native coronary artery without angina pectoris; Z79.899 Other long term (current) drug therapy; Z79.82 Long term (current) use of aspirin; Z88.8 Allergy status to other drugs, medicaments and biological substances; Z91.040 Latex allergy status; Z91.048 Other nonmedicinal substance allergy status | CPT/HCPCS: 93971 ==

== ENCOUNTER → 2018-09-20 | Outpatient (CLI) | payer OTHER ==
[~2018-09-20] MED LIST changes: +ACET500T15 PO; +ALBU17IN INH; +AMLO25TA PO; +AMMO12CR4 TOP; +AMOX500C; +ANUS25SU PR; +ARTI99.0 OU; +ASPI325T PO; +ASPI325T25 PO; +ATOR40TA75 PO; +BENT10CA PO; -BUPIVACAINE HCL 0.25% 30 ML VIAL As Ordered; +BUSP10TA PO; +BUTA-198 PO; +BUTATAB6 PO; +CETI10TA PO; +CLEO300C2 PO; +COLA100C5 PO; +DIVA250T67 PO; +DIVA500T94 PO; +DOCU100C16 PO; +DULC5TAB PO; +ESCI20TA PO; +FISH1000 PO; +FISH120012 PO; +FLOM0.4C39 PO; +FLUT1SPR2; +FLUTISP; +GABA-843 PO; +GABA600T PO; +HYDR-3713 PO; +HYDR-4571; +HYDROCODONE APAP PO; +IBUP-1022 PO; +IBUP80TA PO; +INDO50CA; +IRON65TA PO; -ISOVUE-M 300 61% 15ML VIAL (Q9967) As Ordered; +KETO10TAB PO; +LEVO75TA4 PO; +LEVO88TA3 PO; +LEXA1TAB PO; +LEXA1TAB2 PO; +LIDO1CRE2 EXT; -LIDOCAINE 1% SDV INJ 30 ML VIAL As Ordered; +MAGICMW SSP; +MESA50SU PR; +METO-346 PO; +METO1TAB87 PO; +MOBI4TAB PO; +NAPR-885 PO; +NORCOTAB PO; +OMEP40CA2 PO; +ONDA4TAB6 PO; +ONDA8TAB8; +OXYC1TAB23 PO; +PANT40TA3 PO; +PERC5TAB12 PO; +PERCOCET PO; +PRED10TA2; +PRED20TA PO; +PROT1TAB2 PO; +PX O20TA PO; +RANI15TA PO; +RISP0.5T3 PO; +RISP2TAB3 PO; +SUCR1TA PO; +SUCR1TAB56; +SYNT75TA PO; +TIZA4CAP PO; +TRIH2TAB3 PO; +TRIH5TAB PO; +VITA500046 PO; +VITMTA PO; +ZOCO40TA PO; +ZOFR4TAB14 PO; +ZOFR8TAB22 PO; +ZOFR8TAB24 PO; +[UNRECOGNIZED DRUG - CODE] EXT; +[UNRECOGNIZED DRUG - CODE] TD
[2018-09-20 15:31] LABS: BASO % 0.4 % (0.0-1.0); EOS # 0.1 10^3/uL (0.0-0.50); EOS % 1.1 % (0.0-3.0); HEMATOCRIT 45.3 % (42.0-52.0); HEMOGLOBIN 14.7 g/dl (13.5-17.5); LYMPH # 1.6 10^3/uL (1.5-4.5); MEAN CORPUSCULAR HEMOGLOBIN 30.8 pg (27.0-33.0); MEAN CORPUSCULAR HGB CONC 32.5 g/dl (32.0-36.5); MEAN CORPUSCULAR VOLUME 94.8 fl (80.0-96.0); MONO # 1.5 10^3/uL (0.0-0.8); MONO % 20.7 % (0.0-5.0); NEUTROPHILS % 54.8 % (36.0-66.0); PLATELET COUNT, AUTOMATED 213 10^3/uL (150-450); RED BLOOD COUNT 4.78 10^6/uL (4.30-6.10); WHITE BLOOD COUNT 7.2 10^3/uL (4.0-10.0)
[2018-09-20 15:39] LABS: ALBUMIN 3.5 GM/DL (3.2-5.2); ALT/SGPT 41 U/L (12-78); BILIRUBIN,TOTAL 0.3 MG/DL (0.2-1.0); BLOOD UREA NITROGEN 17 MG/DL (7-18); CARBON DIOXIDE LEVEL 33 MEQ/L (21-32); CHLORIDE LEVEL 103 MEQ/L (98-107); CREATININE FOR GFR 1.12 MG/DL (0.70-1.30); GLOMERULAR FILTRATION RATE > 60.0 (>56); GLUCOSE, FASTING 86 MG/DL (70-100); LIPASE 184 U/L (73-393); POTASSIUM SERUM 4.4 MEQ/L (3.5-5.1); SODIUM LEVEL 140 MEQ/L (136-145); TOTAL PROTEIN 6.5 GM/DL (6.4-8.2)
== END ==
LOC: M WUC 12:09
PROVIDERS: ATTEND Physician Assistant
DX: R11.2 Nausea with vomiting, unspecified (principal); R10.13 Epigastric pain

== ENCOUNTER → 2018-10-14 | Outpatient (REF) | payer OTHER, MEDICAID ==
[~2018-10-14] MED LIST changes: -GABA600T PO; +GABA600T4 PO
== END ==
LOC: M SFHCPLAZ 17:25
PROVIDERS: ATTEND Dermatology
DX: L13.0 Dermatitis herpetiformis (principal)

== ENCOUNTER → 2018-10-18 | Outpatient (CLI) | payer OTHER | LOC: M PAIN 10:45 | PROVIDERS: ATTEND Anesthesiology | DX: Z53.8 Procedure and treatment not carried out for other reasons (principal) ==

== ENCOUNTER → 2018-10-25 | Outpatient (REF) | payer OTHER ==
[2018-10-25 12:24] LABS: ALBUMIN 3.2 GM/DL (3.2-5.2); ALT/SGPT 36 U/L (12-78); BILIRUBIN,TOTAL 0.3 MG/DL (0.2-1.0); BLOOD UREA NITROGEN 22 MG/DL (7-18); CALCIUM LEVEL 8.8 MG/DL (8.5-10.1); CARBON DIOXIDE LEVEL 28 MEQ/L (21-32); CHLORIDE LEVEL 103 MEQ/L (98-107); CREATININE FOR GFR 1.29 MG/DL (0.70-1.30); GLOMERULAR FILTRATION RATE > 60.0 (>56); GLUCOSE, FASTING 123 MG/DL (70-100); POTASSIUM SERUM 4.2 MEQ/L (3.5-5.1); SODIUM LEVEL 139 MEQ/L (136-145); THYROID STIMULATING HORMONE 0.044 uIU/ML (0.358-3.740); TOTAL PROTEIN 6.3 GM/DL (6.4-8.2)
== END ==
LOC: M SFHCPLAZ 08:47
PROVIDERS: ATTEND Nurse Practitioner Family
DX: E66.9 Obesity, unspecified (principal); I10 Essential (primary) hypertension; R60.9 Edema, unspecified; E03.9 Hypothyroidism, unspecified

== ENCOUNTER → 2018-10-28 | Outpatient (REF) | payer OTHER ==
[2018-10-28 13:44] LABS: HEMATOCRIT 45.5 % (42.0-52.0); HEMOGLOBIN 14.7 g/dl (13.5-17.5); MEAN CORPUSCULAR HEMOGLOBIN 30.3 pg (27.0-33.0); MEAN CORPUSCULAR HGB CONC 32.3 g/dl (32.0-36.5); MEAN CORPUSCULAR VOLUME 93.8 fl (80.0-96.0); PLATELET COUNT, AUTOMATED 218 10^3/uL (150-450); RED BLOOD COUNT 4.85 10^6/uL (4.30-6.10); WHITE BLOOD COUNT 7.5 10^3/uL (4.0-10.0)
[2018-10-30 00:07] LABS: G6PD2 4.81 x10E6/uL (4.14-5.80); G6PD3 324 (146-376); TISSUE TRANSGLUTAMINASE IgA 17 U/mL (0-3); TISSUE TRANSGLUTAMINASE IgG 2 U/mL (0-5); UNITSIGA FOR GLIADIN IGA 179 units (0-19); UNITSIGG FOR GLIADIN IGG 148 units (0-19)
== END ==
LOC: M SFHCPLAZ 10:16
PROVIDERS: ATTEND Dermatology
DX: Z79.899 Other long term (current) drug therapy (principal)

== ENCOUNTER 2018-11-07 15:49 | Emergency (ER) | payer MEDICAID, OTHER ==
[~2018-11-07] VITALS: Ht 172.7 cm; Wt 143.6 kg
[2018-11-07 16:50] LABS: VENOUS BASE EXCESS 0.7 (-2.0-2.0); VENOUS HCO3 27.8 MEQ/L (23.0-27.0); VENOUS O2 SATURATION 55.3 % (60.0-80.0); VENOUS PARTIAL PRESSURE CO2 54.4 mmHg (38.0-50.0); VENOUS PARTIAL PRESSURE O2 31.8 mmHg (30.0-50.0); VENOUS PH 7.327 UNITS (7.330-7.430); VENOUS TOTAL CO2 29.5 MEQ/L (24.0-28.0)
[2018-11-07 16:53] LABS: BASO % 0.3 % (0.0-1.0); EOS # 0.1 10^3/uL (0.0-0.50); EOS % 1.6 % (0.0-3.0); HEMATOCRIT 44.3 % (42.0-52.0); HEMOGLOBIN 14.5 g/dl (13.5-17.5); LYMPH # 1.9 10^3/uL (1.5-4.5); LYMPH % 21.8 % (24.0-44.0); MEAN CORPUSCULAR HEMOGLOBIN 30.3 pg (27.0-33.0); MEAN CORPUSCULAR HGB CONC 32.7 g/dl (32.0-36.5); MEAN CORPUSCULAR VOLUME 92.7 fl (80.0-96.0); MONO # 1.1 10^3/uL (0.0-0.8); MONO % 12.5 % (0.0-5.0); NEUTROPHILS # 5.5 10^3/uL (1.8-7.7); NEUTROPHILS % 62.4 % (36.0-66.0); PLATELET COUNT, AUTOMATED 208 10^3/uL (150-450); RED BLOOD COUNT 4.78 10^6/uL (4.30-6.10); WHITE BLOOD COUNT 8.8 10^3/uL (4.0-10.0)
--- NOTE | 2018-11-07 17:02 | REP ---
Clinical: Syncope. Comparison: 05/20/2017 . Findings: Age-related atrophy and microvascular ischemic changes are appreciated. The ventricles and sulci are symmetric. Romeo-white differentiation is maintained. There is no evidence for acute intracranial hemorrhage, mass/mass effect, pathology or infarction. No extra-axial fluid collection. Calvarium is intact. Paranasal sinuses and mastoid air cells are clear. Impression: Age related atrophy and microvascular ischemic changes. No acute intracranial hemorrhage, infarction, or mass/mass effect. Electronically Signed by Costa Meyers MD 11/07/2018 04:54 P
[2018-11-07 17:03] LABS: INR 0.92; PROTHROMBIN TIME 12.4 SECONDS (12.1-14.4)
[2018-11-07 17:05] LABS: PARTIAL THROMBOPLASTIN TIME 28.7 SECONDS (25.4-37.6)
[2018-11-07 17:24] LABS: BLOOD UREA NITROGEN 13 MG/DL (7-18); CARBON DIOXIDE LEVEL 32 MEQ/L (21-32); CHLORIDE LEVEL 105 MEQ/L (98-107); CREATININE FOR GFR 1.34 MG/DL (0.70-1.30); GLOMERULAR FILTRATION RATE 59.8 (>56); GLUCOSE, FASTING 104 MG/DL (70-100); POTASSIUM SERUM 4.5 MEQ/L (3.5-5.1); SODIUM LEVEL 141 MEQ/L (136-145)
[2018-11-07 17:25] LABS: CALCIUM LEVEL 8.2 MG/DL (8.5-10.1); CK-MB VALUE MASS 2.4 NG/ML (<3.6); CPK CREATINE PHOSPHOKINASE 263 U/L (39-308); MB/CK RELATIVE INDEX 0.01 (< OR =4)
[2018-11-07 17:26] LABS: FREE T4 0.95 NG/DL (0.76-1.46); TROPONIN I < 0.02 NG/ML (< 0.10)
[2018-11-07] MEDS ORDERED: NS 1,000 ML IV ONE (18:00)
[2018-11-07] MEDS ORDERED: ACETAMINOPHEN TAB 650MG DOSE (2X325MG) PO ONE (18:00)
[2018-11-07 19:15] VITALS: BP 119/76
--- NOTE | 2018-11-08 08:24 | REP ---
CT study of the cervical spine without contrast: History: Syncope. Preliminary report is provided at the time examination by Dr. castellanos. Technique: Helical scanning is acquired and overlapping 2 mm high resolution axial images were generated and reviewed at bone and soft tissue window settings. Coronal and sagittal multiplanar re-formations images are generated. CT findings: There is no evidence of cervical spine element fracture. No skull base fracture is seen. Cervical vertebral body heights are preserved. Alignment is normal. Facet joints are normally aligned bilaterally at each cervical level on multiplanar re-formations images. There is no evidence of intraspinal or paraspinal hematoma. No extra vertebral abnormality is seen. There are degenerative spondylosis changes in the cervical spine mode, most pronounced at C5-6 and C6-7 where there is disc space narrowing and some spurring. There is straightening of the normal cervical lordosis. Impression: Degenerative spondylosis changes and straightening. Otherwise negative CT study of the cervical spine without contrast. No fracture seen. Electronically Signed by Timothy Barragan MD 11/08/2018 08:15 A
--- NOTE | 2018-11-08 08:40 | ECGEPIP ---
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
== END 2018-11-07 19:44 | disposition home or self-care (01) ==
LOC: EDBD 15:49 → M ED 15:49
DX: E86.0 Dehydration (principal); R55 Syncope and collapse; M47.812 Spondylosis without myelopathy or radiculopathy, cervical region; I25.10 Atherosclerotic heart disease of native coronary artery without angina pectoris; E03.9 Hypothyroidism, unspecified; K21.9 Gastro-esophageal reflux disease without esophagitis; K22.70 Barrett's esophagus without dysplasia; Z95.1 Presence of aortocoronary bypass graft; G47.30 Sleep apnea, unspecified; Z87.891 Personal history of nicotine dependence; Z79.82 Long term (current) use of aspirin; Z79.899 Other long term (current) drug therapy; Z88.5 Allergy status to narcotic agent; Z91.89 Other specified personal risk factors, not elsewhere classified; Z91.040 Latex allergy status

== ENCOUNTER → 2018-11-16 | Outpatient (REF) | payer OTHER ==
[2018-11-16 16:55] LABS: CREATININE FOR GFR 1.46 MG/DL (0.70-1.30); GLOMERULAR FILTRATION RATE 54.2 (>56); POTASSIUM SERUM 4.7 MEQ/L (3.5-5.1)
[2018-11-16 17:23] LABS: HEMOGLOBIN A1c 6.3 %
== END ==
LOC: M SFHCPLAZ 14:35
PROVIDERS: ATTEND Nurse Practitioner Family
DX: I10 Essential (primary) hypertension (principal); E78.5 Hyperlipidemia, unspecified; Z68.42 Body mass index [BMI] 45.0-49.9, adult; R73.09 Other abnormal glucose

== ENCOUNTER → 2018-11-18 | Outpatient (CLI) | payer OTHER ==
[~2018-11-18] MED LIST changes: +BUPIVACAINE HCL 0.25% 30 ML VIAL As Ordered ONE; +ISOVUE-M 300 61% 15ML VIAL (Q9967) As Ordered ONE; +LIDOCAINE 1% SDV INJ 30 ML VIAL As Ordered ONE; +TRIAMCINOLONE ACETONIDE SUSP 40 MG/ML VIAL (J3301) As Ordered ONE; +diazePAM 5 MG TAB As Ordered ONE; +oxyCODONE 5MG TAB As Ordered ONE
--- NOTE | 2018-11-19 11:41 | REP ---
C-ARM VIEWS RIGHT SACROILIAC JOINT: CLINICAL HISTORY: Pain. Two C-arm views are performed during injection by Dr. Woo. Needle is seen in the region of the right sacroiliac joint. A small amount of contrast is injected. 26 seconds fluoroscopy time utilized. Electronically Signed by Joaquin Romeo MD 11/19/2018 03:59 P
--- NOTE | 2018-12-06 00:49 | ECWPNPC ---
PATIENT NAME: DEANNA AN : 1965 GENDER: MALE VISIT DATE: 11/18/2018 DISCHARGE DATE: 11/18/18 1145 VISIT LOCKED DATE TIME: PHYSICIAN: CATRACHITA WILLIAMSON MD RESOURCE: CATRACHITA WILLIAMSON MD REASON FOR APPOINTMENT 1. SIJ HISTORY OF PRESENT ILLNESS HISTORY OF PRESENT ILLNESS: PAIN THE PATIENT DESCRIBES THE PAIN... 53 YEAR OLD MALE PATIENT WITH A HISTORY OF CHRONIC LOW BACK PAIN. THE PATIENT DESCRIBES THE PAIN SHARP, SHOOTING, AND INTERMITTENT WITH A PAIN SCORE OF 6-10/10 DEPENDING ON PHYSICAL ACTIVITY. THE PATIENT SAYS HIS PAIN IS MAINLY LOCATED OVER THE RIGHT SIDE OF HIS LOW BACK. PATIENT DENIES UNEXPLAINABLE WEIGHT LOSS, FEVER, CHILLS, NEW CHANGES ON HIS URINARY OR BOWEL CONTROL. FALL RISK SCREENING: SCREENING : NO FALLS IN THE PAST YEAR. CURRENT MEDICATIONS TAKING BETAMETHASONE DIPROPIONATE AUG 0.05 % OINTMENT 1 APPLICATION TO AFFECTED AREA EXTERNALLY BID TO RASH ON ELBOW, NOTES: 11/17/18 TAKING VENTOLIN HFA 108 (90 BASE) MCG/ACT AEROSOL SOLUTION INHALE TWO PUFFS BY MOUTH EVERY FOUR HOURS NEEDED INHALATION , NOTES: 11/14/18 TAKING ONDANSETRON HCL 4 MG TABLET TAKE ONE TABLET BY MOUTH 1-2 TIMES A DAY BEFORE MEAL TAKE ONLY WHEN NAUSEOUS ORAL , NOTES: 11/17/18 TAKING TIZANIDINE HCL 4 MG TABLET TAKE ONE TABLET BY MOUTH AT BEDTIME MAX DAILY DOSE ONE TABLET ORAL , NOTES: 11/17/18 TAKING TRIHEXYPHENIDYL HCL 5 MG TABLET TAKE ONE TABLET BY MOUTH TWICE DAILY ORAL , NOTES: 11/18/18 AM TAKING [id number] 50-325-40 MG TABLET TAKE 1 TO 2 TABLETS BY MOUTH TWICE DAILY NEEDED FOR SEVERE HEADACHES (MAX DAILY DOSE FOUR) ORAL , NOTES: NONE LATELY TAKING GABAPENTIN 600 MG TABLET TAKE ONE TABLET BY MOUTH @8AM AND TAKE ONE TABLET @12PM AND TAKE ONE TABLET @8PM ORAL , NOTES: 11/18/18 AM TAKING BUSPIRONE HCL 10 MG TABLET TAKE ONE TABLET BY MOUTH @8AM AND TAKE ONE TABLET @8PM ORAL , NOTES: 11/17/18 TAKING RISPERIDONE 0.5 MG TABLET TAKE ONE TABLET BY MOUTH @8PM ORAL , NOTES: 11/17/18 TAKING ZANTAC 150 MG TABLET 2 TABLET AT BEDTIME ORALLY ONCE A DAY, NOTES: 11/17/18 TAKING DAPSONE 25 MG TABLET 1 TABLET ORALLY ONCE A DAY, NOTES: 11/18/18 TAKING ATORVASTATIN CALCIUM 40 MG TABLET 1 TABLET ORALLY ONCE A DAY, NOTES: 11/18/18 AM TAKING AYR SALINE NASAL - GEL DIRECTED NASALLY TID, NOTES: 11/18/18 AM TAKING SUCRALFATE 1 GM TABLET TAKE ONE TABLET BY MOUTH FOUR TIMES DAILY AFTER MEALS ORAL , NOTES: 11/18/18 AM TAKING OMEPRAZOLE 40 MG CAPSULE DELAYED RELEASE TAKE ONE CAPSULE BY MOUTH @8AM ON AN EMPTY STOMACH ORAL , NOTES: 11/17/18 TAKING ESCITALOPRAM OXALATE 10 MG TABLET TAKE ONE TABLET BY MOUTH ONCE DAILY ORAL , NOTES: 11/18/18 AM TAKING DIVALPROEX SODIUM 250 MG TABLET DELAYED RELEASE TAKE THREE TABLETS BY MOUTH AT BEDTIME ORAL , NOTES: 11/18/18 AM TAKING LEVOTHYROXINE SODIUM 75 MCG TABLET TAKE ONE TABLET BY MOUTH @8AM ORALLY , NOTES: 11/18/18 AM TAKING ZYRTEC ALLERGY 10 MG TABLET 1 TABLET ORALLY ONCE A DAY, NOTES: 11/18/18 AM NOT-TAKING METOPROLOL TARTRATE 25 MG TABLET TAKE ONE TABLET BY MOUTH @8AM ORAL MEDICATION LIST REVIEWED AND RECONCILED WITH THE PATIENT PAST MEDICAL HISTORY DEPRESSION/ANXIETY- DR LAWLER. /THERAPIST Q2 WEEKS HYPERLIPIDEMIA GERD WITH BARRETTS: REPEAT EGD IN 07/2018 VITAMIN D DEF FRAN: FOLLOWING WITH PULMONOLOGY: COMPLIANT WITH CPAP CAD: BYPASS WITH AUTOLOGOUS VEIN: DR. VALENCIA AT [facility] ECHO 10/17/2016. HYPERTENSIVE HEART DISEASE CARDIAC PET NUCLEAR STRESS 09/26/2016. LVEF 66% BACK PAIN HISTORY OF [place], MEASLES, MUMPS LYTIC LESION ADJACENT TO RT LOBE LIVER APPEARING WITHIN GB FOSSA: NO SURGICAL INTERVENTION IDICATED: DR. DOMINIQUE THYROID U/S 09/16 DIFFUSE HETEROGENEITY 2 6MM NODULES AT [facility]. - DR HERMILA RAUSCH CARDIAC CATH WITH CABG 11/13/2016 SPECT STRESS LVEF 55%, NO EVIDENCE OF ISCHEMI, LEFT VENTRICULAR DIALATION WITH STRESS 08/26/2017 EUS HIDA SCAN FATTY LIVER WITH FATTY PANCREAS COLONOSCOPY 2017 UPPER ENDOSCOPY 2018 GALLBLADDER U/S 04/23/18: FATTY INFILTRATE OF LIVER AND EXOPHYTIC CYST ON THE RIGHT LOBE. NO HEPATIC SOLID MASS OR BILLARY DILATATION. GALLBLADDER WITHOUT ACUTE FINDINGS THYROID US WITH SMALL THYROID NODULE UNCHANGED ECHO: 12/20/17-NO SIGNIFICANT VALVULAR DISEASE, LEFT VENTRICULAR SYSTOLIC FUNCTION NORMAL, LEFT VENTRICULAR DIASTOLIC FUNCTION NORMAL, CONCENTRIC LEFT CENTRICULAR HYPERTROPHY MILD, HYPERTNESIVE HEART DISEASE MODERATE. MILDLY DILATED LEFT ATRIUM 4.3CM. MILDLY DILATED AORTIC ROOT AT 4.0CM. TRACE TO SMALL PERICARDAL EFFUSION NOTED POSTERIORLY IN LIMITED VIEWS, NO EVIDENCE OF CARDIAC TAMPONADE. LVEF 55-60% DERMATITIS HERPETIFORMIS ALLERGIES CODEINE PHOSPHATE (FOR ALLERGIES USE ONLY): NAUSEA/VOMITING: SIDE EFFECTS LATEX (FOR ALLERGY USE ONLY): RASH: ALLERGY ADHESIVE TAPE GLUTEN ALLERGY: RASH: ALLERGY SURGICAL HISTORY LEFT HAND, 5TH DIGIT, REMOVED TUMOR 1979 & 2016 TONSILLECTOMY CHILD COLONOSCOPY- INTERNAL HEMORRHOID, POLYP X 1- ADENOMATOUS 02/02/15 COLONOSCOPY - 2 TUBULAR ADENOMAS, MUCOSAL ULCERATION, MODERATE DIVERTICULOSIS IN THE SIGMOID COLON, EXTERNAL HEMORRHOIDS. SIGMOIDOSCOPY DUE 10/2018, REPEAT COLONOSCOPY 5 YRS 10/13/17 EGD- [facility] 02/02/15 HEMORRHOIDECTOMY 4-6-16 LEFT FOOT BUNIONECTOMY WITH FIRST METATARSAL OSTEOSTOMY-DR. IRIZARRY 03/31/16 CABG- 4 VESSEL AT [facility] 11/11/16 LEFT HAND CP SX, AND TENDON REMOVAL. [facility] 01/2018 UPPER ENDOSCOPIC ULTRASOUND WITH ANESTHESIA 07/2018 WIRES REMOVED FROM CHEST 09/29/2018 FAMILY HISTORY FATHER: 79 YRS, MS, HTN, DIAGNOSED WITH HYPERTENSION, HEART DISEASE IN 62 MOTHER: ALIVE 66 YRS, HTN, DIAGNOSED WITH HYPERTENSION, HEART DISEASE 1 BROTHER(S) , 1 SISTER(S) - HEALTHY. 3 HALF BROTHER, 1 HALF SISTER-HEALTHY, NO KNOWN FAMILY HISTORY OF ANY UROLOGICALLY RELATED DISEASES/CANCERS. DENIES ANY FAMILY HX SKIN CANCER OR PANCREATIC CANCER. SOCIAL HISTORY GENERAL: TOBACCO USE ARE YOU A:FORMER SMOKER HOW LONG HAS IT BEEN SINCE YOU LAST SMOKED?5-10 YEARS LUNG CANCER SCREENING SMOKING STATUS:FORMER SMOKER IS THE PATIENT BETWEEN THE AGE OF 57 AND 79?NO BMI CARE GOAL FOLLOW-UP ABOVE NORMAL BMI FOLLOW-UPDIETARY MANAGEMENT EDUCATION, GUIDANCE, AND COUNSELING ALCOHOL SCREENING DID YOU HAVE A DRINK CONTAINING ALCOHOL IN THE PAST YEAR?NO POINTS0 INTERPRETATIONNEGATIVE RECREATIONAL DRUG USE DRUG USE?NO CAFFEINE CAFFEINE USE?YES COFEE: 2 CUPS PER DAY SEXUAL HX HAD SEX IN THE LAST 12 MONTHS (VAGINAL, ORAL, OR ANAL)?: NO, HAVE YOU EVER HAD AN STD?: NO. 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 EDUCATION 3RD GRADE. STATES IS ABLE TO READ NEWSPAPER. WRITES BUT SPELLING IS NOT GOOD. . LEARNING BARRIERS / SPECIAL NEEDS CHANGE FROM LAST VISIT?NO BARRIERS TO LEARNING?YES COMMENTS LEARNING DISABILITY HEARING IMPAIRED?NO VISION IMPAIRED?YES COGNITIVELY IMPAIRED?NO :CORRECTIVE LENSES READINESS TO LEARN?YES LEARNING PREFERENCES?NO LEARNING CAPABILITIES PRESENT?YES EMOTIONAL BARRIERS?NO SPECIAL DEVICES?NO HEAVY EQUIPMENT DIESEL MECHANIC NEEDED?NO DOMESTIC VIOLENCE DO YOU FEEL SAFE IN YOUR ENVIRONMENT?YES OCCUPATION: DISABLED, SSI. DIET: NO ADDED SALT, LOW FAT, LOW CHOLESTEROL. EXERCISE: NO REGULAR EXERCISE. MARITAL STATUS: SINGLE. PAIN CLINIC PFS, CLERGY, PUBLIC HEALTH REFERRALS HAS THE PATIENT BEEN EDUCATED REGARDING HIS/HER PLAN OF CARE?YES HAS THE PATIENT BEEN EDUCATED REGARDING PAIN, THE RISK FOR PAIN, THE IMPORTANCE OF EFFECTIVE PAIN MANAGEMENT, AND THE PAIN ASSESSMENT PROCESS?YES ADVANCE DIRECTIVE ADVANCE DIRECTIVE DISCUSSED WITH PATIENT:YES PT DOES NOT HAVE ANY ADVANCED DIREDTIVES AND HE DECLINES INFORMATION ON HCP AT THIS TIME. REVIEWED WITH PT 05/14/18 0915 LAS09/01/18 1149 REVIEWED WITH PT. AD. HOSPITALIZATION/MAJOR DIAGNOSTIC PROCEDURE [facility]- DEPRESSION/ANXIETY 14 [facility] DEPRESSION 18 [facility]- [place] OF DEPRESSION. [age]YO HEMORRHOIDECTOMY WITH REMOVAL OF A MIXED HEMORRHOIDAL BUNDLES AT THE LEFT LATERAL AND RIGHT ANTERIOR AND POSTERIOR POSITIONS. 01/11/2016 CABG: [facility] 11/11/16 [facility] 11/21 REVIEW OF SYSTEMS REVIEWED BY: PROVIDER: CATRACHITA WILLIAMSON MD . CONSTITUTIONAL: ANY CHANGE IN YOUR MEDICAL CONDITION? NO . CHILLS NO . FEVER NO . INFECTION: DO YOU HAVE NEW INFECTIONS? NO . DO YOU HAVE HISTORY OF MRSA? NO . MUSCULOSKELETAL: ANY NEW PATTERNS OF PAIN OR NUMBNESS? NO . GASTROENTEROLOGY: ANY NEW CHANGE IN BOWEL CONTROL? NO . GENITOURINARY: ANY NEW CHANGE IN BLADDER CONTROL? NO . IS THERE A CHANCE YOU COULD BE ? NO . HEMATOLOGY/LYMPH: DO YOU TAKE ANY BLOOD THINNERS? (FOR EXAMPLE- COUMADIN, PLAVIX, AGGRENOX, PLATEL, PRADAXA, OR XARELTO) NO . WHEN WAS YOUR LAST DOSE? DATE: TIME: . NEUROLOGY: HAVE YOU FALLEN IN THE PAST 12 MONTHS? NO . ANY NEW EXTREMITY NUMBNESS OR WEAKNESS? YES, RIGHT LEG X >1 YEAR . CARDIOLOGY: DO YOU HAVE A PACEMAKER OR DEFIBRILLATOR? NO . RESPIRATORY: HAVE YOU BEEN SICK IN THE PAST WEEK? NO . FEVER NO . FLU LIKE SYMPTOMS? NO . COUGH NO . INTEGUMENTARY: DO YOU HAVE ANY RASHES OR OPEN SORES? NO . ALLERGIC/IMMUNO: ARE YOU ALLERGIC TO IV DYE? NO . ANY NEW ALLERGIES? NO . PSYCHIATRIC: DO YOU HAVE THOUGHTS OF HURTING YOURSELF OR SOMEONE ELSE? NO . ARE YOU ABUSED, NEGLECTED, OR IN AN UNSAFE ENVIRONMENT? NO . ENDOCRINOLOGY: ARE YOU DIABETIC? NO . OTHER: DO YOU NEED ANY PRESCRIPTIONS? NO . IF YES, PLEASE LIST: ____ . ANY NEW PROBLEMS WITH YOUR MEDICATIONS? NO . WHEN DID YOU LAST EAT? 11/17/18 1800 . WHEN DID YOU LAST DRINK? 11/18/18 0600 . WHAT DID YOU LAST DRINK? WATER . NAME OF PERSON DRIVING YOU HOME? [facility] . DO YOU HAVE ANY OTHER QUESTIONS OR CONCERNS NO . VITAL SIGNS WT 328.6 LBS, HT 68 IN, BMI 49.96 INDEX, BP 107/63 MM HG, HR 61 /MIN, RR 18 /MIN, TEMP 99.0 F, OXYGEN SAT % 97%, NA INITIALS SC 09:47, REVIEWED BY: EM. EXAMINATION GENERAL EXAMINATION: PATIENT IS ALERT O X 3 AND COOPERATIVE. TENDERNESS OVER THE RIGHT SACROILIAC JOINT. FABERE TEST IS POSITIVE FOR RIGHT SACROILIAC JOINT DYSFUNCTION. ASSESSMENTS SACROILIITIS, NOT ELSEWHERE CLASSIFIED - M46.1 (PRIMARY) TREATMENT SACROILIITIS, NOT ELSEWHERE CLASSIFIED CLINICAL NOTES: WE DISCUSSED SEVERAL ISSUES WITH MR. AN'S PAIN MANAGEMENT CASE. DUE TO THE SACROILIAC JOINT DYSFUNCTION OVER THE RIGHT SIDE, I WOULD LIKE TO MOVE FORWARD WITH A RIGHT SACROILIAC JOINT BLOCK AT THIS TIME. WE DISCUSSED THE BENEFITS, RISKS, AND ALTERNATIVES OF THE INJECTION AND THE PATIENT WOULD LIKE TO PROCEED. THE PATIENT WILL FOLLOW UP IN A FEW WEEKS. INSTRUCTIONS WERE GIVEN, QUESTIONS WERE ANSWERED, PATIENT REPORTS UNDERSTANDING AND AGREES WITH THE PLAN. I, JAILYN RAE, DOCUMENTED THE ABOVE INFORMATION ACTING A SCRIBE FOR DR. WILLIAMSON. I HAVE REVIEWED THE ABOVE DOCUMENT, WRITTEN BY JAILYN WU AND I VERIFY THAT IT IS ACCURATE. PROCEDURES PN SI PRE PROCEDURE DIAGNOSIS SACROILIITIS, SACROILIAC JOINT DYSFUNCTION POST PROCEDURE DIAGNOSIS SACROILIITIS, SACROILIAC JOINT DYSFUNCTION PROCEDURE RIGHT SACROILIAC JOINT BLOCK SURGEON DR. CATRACHITA WILLIAMSON LOG DATA TECHNICIAN NONE ANESTHESIA LOCAL PRE PROCEDURE NOTE PATIENT WITH HISTORY OF CHRONIC LOW BACK PAIN. I EVALUATED THE PATIENT AND REVIEWED THE CHART. I WENT OVER THE RISKS, ALTERNATIVES, AND BENEFITS ASSOCIATED WITH THIS PROCEDURE. THE PATIENT WOULD LIKE TO PROCEED AND GAVE CONSENT TO PERFORM THE PROCEDURE. THE PATIENT DENIES UNEXPLAINABLE WEIGHT LOSS, FEVER, CHILLS, OR NEW CHANGES IN URINARY OR BOWEL CONTROL DESCRIPTION OF PROCEDURE THE PATIENT WAS BROUGHT TO THE PROCEDURE ROOM AND PLACED IN THE PRONE POSITION. THE LUMBOSACRAL AREA WAS CLEANED WITH CHLORAPREP SOLUTION AND DRAPED ASEPTICALLY. THE PROCEDURE WAS DONE UNDER STERILE CONDITIONS. I CHECKED LATERALITY AND THE LEVEL WHERE THE PROCEDURE WAS GOING TO BE PERFORMED WITH THE PATIENT AND THE SUPPORTING STAFF AT THE MOMENT OF THE TIME OUT IN THE PROCEDURE ROOM. UNDER FLUOROSCOPIC GUIDANCE, TARGET POINT WAS SELECTED AT THE LOWER BORDER OF THE RIGHT SACROILIAC JOINT. TARGET POINT WAS SELECTED AFTER MEDIAL ROTATION AND TILT OF THE MAGNIFIER OF THE C-ARM. LIDOCAINE WAS USED TO NUMB THE SKIN AND SUBCUTANEOUS TISSUE BELOW IT. A SPINAL NEEDLE, 22-GAUGE, WAS ADVANCED UNDER FLUOROSCOPIC GUIDANCE AND FOLLOWING PATIENT FEEDBACK UNTIL THE TARGET AREA WAS TOUCHED. THE POSITION OF THE NEEDLE WAS VERIFIED WITH AP AND LATERAL VIEWS. AFTER PROPER POSITION OF THE NEEDLE WAS ACHIEVED, ISOVUE M DYE 30%, 0.25 ML, WAS INJECTED SHOWING SPREAD OF THE DYE. THEN, A SOLUTION OF 20 MG OF KENALOG WAS INJECTED IN RIGHT JOINT WITH 3 ML OF BUPIVACAINE 0.125%. THERE WAS NO EVIDENCE OF BLOOD, PARESTHESIA OR CEREBROSPINAL FLUID DURING THE PROCEDURE. THE PATIENT WAS SENT TO THE RECOVERY ROOM. THE PATIENT WAS MOVING THE EXTREMITIES AND DOING WELL. THERE WAS NO COMPLICATION DURING THE PROCEDURE. FLUOROSCOPY TIME WAS 26 SECONDS POST PROCEDURE NOTE THE PATIENT WILL BE SEEN IN A FOLLOW UP IN THE NEXT FEW WEEKS. INSTRUCTIONS WERE GIVEN, QUESTIONS WERE ANSWERED, AND THE PATIENT EXPRESSED UNDERSTANDING AND AGREED WITH THE PLAN. I, JAILYN RAE, DOCUMENTED THE ABOVE INFORMATION ACTING A SCRIBE FOR DR. WILLIAMSON. I HAVE REVIEWED THE ABOVE DOCUMENT, WRITTEN BY JAILYN RAE SCRIBE AND I VERIFY THAT IT IS ACCURATE. DIAGNOSTIC IMAGING [facility] FLUORO GUIDANCE (PAIN)[id number] PROCEDURE CODES 6045F RADXPS IN END [id number] PXD [id number] INJECT SACROILIAC JOINT, MODIFIERS: RT DISPOSITION & COMMUNICATION FOLLOW UP 3 WEEKS ELECTRONICALLY SIGNED BY CATRACHITA WILLIAMSON MD, ON 12/05/2018 AT 01:15 PM EST DISCLAIMER : THIS IS A VISIT SUMMARY EXTRACTED FROM THE [employer] CHART. IT IS NOT A COPY OF THE [employer] PROGRESS NOTE. [place]
== END ==
LOC: M PAIN 10:00
PROVIDERS: ATTEND Anesthesiology
DX: G89.29 Other chronic pain (principal); M46.1 Sacroiliitis, not elsewhere classified; M53.88 Other specified dorsopathies, sacral and sacrococcygeal region; F32.9 Major depressive disorder, single episode, unspecified; F41.9 Anxiety disorder, unspecified; E78.5 Hyperlipidemia, unspecified; K21.9 Gastro-esophageal reflux disease without esophagitis; K22.70 Barrett's esophagus without dysplasia; G47.33 Obstructive sleep apnea (adult) (pediatric); E66.01 Morbid (severe) obesity due to excess calories; Z68.42 Body mass index [BMI] 45.0-49.9, adult; Z79.899 Other long term (current) drug therapy; Z88.5 Allergy status to narcotic agent; Z91.040 Latex allergy status; Z91.09 Other allergy status, other than to drugs and biological substances; Z91.018 Allergy to other foods; Z87.891 Personal history of nicotine dependence; Z86.79 Personal history of other diseases of the circulatory system
CPT/HCPCS: 27096; J3301; Q9967

== ENCOUNTER → 2018-11-24 | Outpatient (CLI) | payer OTHER ==
[~2018-11-24] MED LIST changes: -BUPIVACAINE HCL 0.25% 30 ML VIAL As Ordered ONE; -ISOVUE-M 300 61% 15ML VIAL (Q9967) As Ordered ONE; -LIDOCAINE 1% SDV INJ 30 ML VIAL As Ordered ONE; -TRIAMCINOLONE ACETONIDE SUSP 40 MG/ML VIAL (J3301) As Ordered ONE; -diazePAM 5 MG TAB As Ordered ONE; -oxyCODONE 5MG TAB As Ordered ONE
[2018-11-24 15:39] LABS: HEMATOCRIT 47.9 % (42.0-52.0); HEMOGLOBIN 15.8 g/dl (13.5-17.5); MEAN CORPUSCULAR HEMOGLOBIN 30.4 pg (27.0-33.0); MEAN CORPUSCULAR VOLUME 92.3 fl (80.0-96.0); PLATELET COUNT, AUTOMATED 239 10^3/uL (150-450); RED BLOOD COUNT 5.19 10^6/uL (4.30-6.10)
== END ==
LOC: M LAB 14:35
PROVIDERS: ATTEND Dermatology
DX: L13.0 Dermatitis herpetiformis (principal); Z79.899 Other long term (current) drug therapy

== ENCOUNTER → 2018-11-24 | Outpatient (CLI) | payer OTHER ==
--- NOTE | 2018-11-25 05:57 | REP ---
Clinical: Acute renal failure with history of nephroureterolithiasis. Technique: Real time frank scale ultrasound examination using curved array transducer. Findings: Bladder is unremarkable. Bilateral kidneys are normal in reniform shape and demonstrate cortical thinning with increased central sinus fat suggesting chronic age-related changes. Right kidney measures 11.6 x 6.2 x 6.6 cm without hydronephrosis, cystic or renal mass lesion. Left kidney measures 12.3 x 6.0 x 6.3 cm without hydronephrosis, cystic or renal mass lesion. Small bilateral echogenic foci cannot exclude tiny nonobstructing renal calculi. Impression: 1. No hydronephrosis. 2. Findings to suggest chronic age-related changes. 3. No definite renal calcifications are appreciated although tiny nonobstructing intrarenal calculi cannot be excluded. Electronically Signed by Costa Meyers MD 11/25/2018 05:48 A
== END ==
LOC: M RAD 13:32
PROVIDERS: ATTEND Nurse Practitioner Family
DX: N17.9 Acute kidney failure, unspecified (principal); Z87.442 Personal history of urinary calculi

== ENCOUNTER 2018-11-26 09:58 | Emergency (ER) | payer OTHER ==
[~2018-11-26] VITALS: Ht 172.7 cm; Wt 140.0 kg
[2018-11-26 10:45] VITALS: BP 127/58
--- NOTE | 2018-11-26 11:36 | REP ---
PA CHEST AND RIGHT RIBS: 11/26/2018. Clinical history: Chest wall pain. Comparison: AP chest 07/05/2018. Findings: Sternotomy wires are present with no gross cardiomegaly, vascular redistribution or pulmonary edema. Some underlying mild basilar fibrotic changes, stable. No vascular redistribution or pulmonary edema. There is some bilateral lateral pleural thickening unchanged. Aorta is without aneurysm. Airway is intact. The clavicles and visualized portions of scapulae were intact. Visualized ribs show no acute finding. Right rib series: Posterior rib articulations, posterior lateral and anterior ribs all without visible or displaced fracture, focal lesion, pleural effusion or pneumothorax. Spine visualized shows some marginal osteophytes without destructive lesion. Impression: 1. There is no visible displaced fracture, destructive bone lesion, effusion or pneumothorax. Posterior rib articulations were intact. 2. Clavicle, visualized spine and right shoulder grossly intact. 3. Sternotomy wires. No cardiomegaly or edema. Some basilar chronic changes noted along with bilateral lateral pleural thickening also stable. Electronically Signed by Brannon Kim MD 11/26/2018 07:49 P
--- NOTE | 2018-11-26 12:05 | REP ---
RIGHT KNEE, FIVE VIEWS: HISTORY: Trauma. There is no acute fracture or dislocation. The joint spaces are normal in appearance. IMPRESSION: There is no acute fracture or dislocation. Electronically Signed by Mitch Blum MD 11/26/2018 12:10 P
== END 2018-11-26 11:41 | disposition home or self-care (01) ==
LOC: M ED 09:58 → EDBD 09:58 → M ED 11:41
DX: S80.211A Abrasion, right knee, initial encounter (principal); S80.01XA Contusion of right knee, initial encounter; S20.211A Contusion of right front wall of thorax, initial encounter; W00.0XXA Fall on same level due to ice and snow, initial encounter; Y92.410 Unspecified street and highway as the place of occurrence of the external cause; Z91.018 Allergy to other foods; Z88.5 Allergy status to narcotic agent; Z91.040 Latex allergy status; Z91.048 Other nonmedicinal substance allergy status; Z79.899 Other long term (current) drug therapy; Z79.82 Long term (current) use of aspirin

== ENCOUNTER → 2018-12-02 | Outpatient (REF) | payer OTHER ==
[2018-12-02 16:02] LABS: APPEARANCE, URINE CLEAR (CLEAR); BACTERIA, URINE AUTO NEGATIVE (NEGATIVE); BILIRUBIN, URINE AUTO NEGATIVE (NEGATIVE); BLOOD, URINE BLOOD NEGATIVE (NEGATIVE); COLOR, URINE YELLOW (YELLOW); GLUCOSE, URINE (UA) AUTO NEGATIVE (NEGATIVE); KETONE, URINE AUTO NEGATIVE (NEGATIVE); LEUKOCYTE ESTERASE, URINE AUTO NEGATIVE (NEGATIVE); NITRITE, URINE AUTO NEGATIVE (NEGATIVE); PROTEIN, URINE AUTO NEGATIVE (NEGATIVE); RBC, URINE AUTO 1 /HPF (0-3); SPECIFIC GRAVITY URINE AUTO 1.012 (1.002-1.035); SQUAMOUS EPITHELIAL CELL UR AU 0 /HPF (0-6); UROBILINOGEN, URINE AUTO 0.2 mg/dL (0.0-2.0); WBC, URINE AUTO 0 /HPF (0-3)
== END ==
LOC: M SFHCPLAZ 14:40
PROVIDERS: ATTEND Nurse Practitioner Family
DX: Z87.442 Personal history of urinary calculi (principal)

== ENCOUNTER → 2018-12-14 | Outpatient (REF) | payer OTHER ==
[2018-12-14 11:44] LABS: ALBUMIN 3.1 GM/DL (3.2-5.2); BLOOD UREA NITROGEN 17 MG/DL (7-18); CALCIUM LEVEL 8.6 MG/DL (8.5-10.1); CARBON DIOXIDE LEVEL 29 MEQ/L (21-32); CHLORIDE LEVEL 104 MEQ/L (98-107); CREATININE FOR GFR 1.25 MG/DL (0.70-1.30); GLOMERULAR FILTRATION RATE > 60.0 (>56); GLUCOSE, FASTING 93 MG/DL (70-100); PHOSPHORUS LEVEL 2.9 MG/DL (2.5-4.9); SODIUM LEVEL 140 MEQ/L (136-145)
== END ==
LOC: M SFHCPLAZ 08:21
PROVIDERS: ATTEND Nurse Practitioner Family
DX: N17.9 Acute kidney failure, unspecified (principal)

== ENCOUNTER → 2018-12-27 | Outpatient (CLI) | payer OTHER ==
--- NOTE | 2018-12-28 07:56 | REP ---
Chest x-ray: Two views. History: Wheezing. Vinson chest x-ray November 26, 2018. Findings: There is benign pleural thickening noted bilaterally. The patient is status post prior median sternotomy. The heart is not enlarged. Pleural angles are sharp. No infiltrate is seen in the lung johnson. No significant bony abnormality is noted. Impression: No acute disease. Prior sternotomy. Bilateral pleural plaquing. Electronically Signed by Timothy Barragan MD 12/27/2018 10:18 A
== END ==
LOC: M RAD 09:25
PROVIDERS: ATTEND Nurse Practitioner Family
DX: R06.2 Wheezing (principal)

== ENCOUNTER 2018-12-31 13:38 | Emergency (ER) | payer OTHER ==
[~2018-12-31] VITALS: Ht 172.7 cm; Wt 149.0 kg
[~2018-12-31 13:38] MED LIST changes: -AMMO12CR4 TOP; +AMMO12CR7 TOP; +ASPI-1 PO; +ASPI-255 PO; -ASPI325T PO; -ASPI325T25 PO; +FLUT50SP12; -FLUTISP; +HYDR-3715 PO; -NORCOTAB PO
[2018-12-31] MEDS ORDERED: ASPIRIN 81 MG CHEW TABLET PO ONE (14:15)
[2018-12-31] MEDS ORDERED: ONDANSETRON 4MG/2ML VIAL (J2405) IV ONE (14:15)
[2018-12-31] MEDS ORDERED: MORPHINE 2 MG/ML 1ML SYRINGE (J2270) IV ONE (14:15)
[2018-12-31] MEDS ORDERED: GI COCKTAIL 50ML BTL(HYOSCYAMINE/MAALOX/LIDOCAINE VISCOUS)(1:3:1) PO ONE (14:15)
[2018-12-31 14:47] LABS: BASO % 0.4 % (0.0-1.0); EOS % 0.4 % (0.0-3.0); HEMATOCRIT 45.3 % (42.0-52.0); HEMOGLOBIN 14.7 g/dl (13.5-17.5); LYMPH # 1.7 10^3/uL (1.5-4.5); LYMPH % 19.7 % (24.0-44.0); MEAN CORPUSCULAR HEMOGLOBIN 30.6 pg (27.0-33.0); MEAN CORPUSCULAR HGB CONC 32.5 g/dl (32.0-36.5); MEAN CORPUSCULAR VOLUME 94.4 fl (80.0-96.0); MONO # 1.1 10^3/uL (0.0-0.8); MONO % 13.3 % (0.0-5.0); NEUTROPHILS # 5.5 10^3/uL (1.8-7.7); NEUTROPHILS % 64.4 % (36.0-66.0); PLATELET COUNT, AUTOMATED 205 10^3/uL (150-450); WHITE BLOOD COUNT 8.5 10^3/uL (4.0-10.0)
--- NOTE | 2018-12-31 14:55 | REP ---
Clinical: Chest pain. Technique: PA and lateral. Comparison: 12/27/2018. Findings: Mediastinum and cardiac silhouette are stable. Trace basilar atelectasis cannot be excluded. No definite effusion. No pneumothorax. Skeletal structures are intact. Impression: Cannot exclude trace basilar atelectasis. Electronically Signed by Costa Meyers MD 12/31/2018 02:47 P
[2018-12-31 15:11] LABS: BLOOD UREA NITROGEN 12 MG/DL (7-18); CARBON DIOXIDE LEVEL 33 MEQ/L (21-32); CHLORIDE LEVEL 100 MEQ/L (98-107); CPK CREATINE PHOSPHOKINASE 169 U/L (39-308); CREATININE FOR GFR 1.27 MG/DL (0.70-1.30); GLOMERULAR FILTRATION RATE > 60.0 (>56); GLUCOSE, FASTING 81 MG/DL (70-100); MB/CK RELATIVE INDEX 0.83 (< OR =4); NT-PRO BNP 51 PG/ML (<125); POTASSIUM SERUM 4.3 MEQ/L (3.5-5.1); SODIUM LEVEL 139 MEQ/L (136-145); TROPONIN I < 0.02 NG/ML (< 0.10)
[2018-12-31 19:03] LABS: CPK CREATINE PHOSPHOKINASE 205 U/L (39-308); MB/CK RELATIVE INDEX 0.63 (< OR =4); TROPONIN I < 0.02 NG/ML (< 0.10)
[2018-12-31 19:25] VITALS: BP 114/67
--- NOTE | 2018-12-31 19:47 | ECGEPIP ---
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
--- NOTE | 2019-01-01 09:29 | ECGEPIP ---
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
[2019-01-04] MEDS ORDERED: ONDA8TAB8 PO (16:34)
[2019-01-04] MEDS ORDERED: FISH120016 PO (16:34)
[2019-01-04] MEDS ORDERED: PROAAER10 INH (16:34)
[2019-01-12] MEDS ORDERED: CHOL50003 PO (13:09)
== END 2018-12-31 19:34 | disposition home or self-care (01) ==
LOC: M ED 13:38
DX: R07.89 Other chest pain (principal); I10 Essential (primary) hypertension; E78.5 Hyperlipidemia, unspecified; K21.9 Gastro-esophageal reflux disease without esophagitis; E03.9 Hypothyroidism, unspecified; J30.2 Other seasonal allergic rhinitis; G47.30 Sleep apnea, unspecified; K22.70 Barrett's esophagus without dysplasia; E66.01 Morbid (severe) obesity due to excess calories; Z95.1 Presence of aortocoronary bypass graft; Z87.891 Personal history of nicotine dependence; Z79.82 Long term (current) use of aspirin; Z79.899 Other long term (current) drug therapy; Z91.040 Latex allergy status; Z91.018 Allergy to other foods; Z91.89 Other specified personal risk factors, not elsewhere classified; Z88.5 Allergy status to narcotic agent
CPT/HCPCS: 71046; 80048; 82550; 82553; 83880; 85025; 93005; 93041; 94760; 96374; 96375; 99285; J2270; J2405

== ENCOUNTER → 2019-01-04 | Outpatient (CLI) | payer OTHER ==
[~2019-01-04] MED LIST changes: +CHOL50003 PO; +FISH120016 PO; +ONDA8TAB8 PO; +PROAAER10 INH
[2019-01-04 19:46] LABS: BASO % 0.5 % (0.0-1.0); EOS # 0.1 10^3/uL (0.0-0.50); EOS % 1.2 % (0.0-3.0); HEMATOCRIT 45.7 % (42.0-52.0); HEMOGLOBIN 14.7 g/dl (13.5-17.5); LYMPH # 1.5 10^3/uL (1.5-4.5); LYMPH % 19.4 % (24.0-44.0); MEAN CORPUSCULAR HEMOGLOBIN 30.8 pg (27.0-33.0); MEAN CORPUSCULAR HGB CONC 32.2 g/dl (32.0-36.5); MEAN CORPUSCULAR VOLUME 95.8 fl (80.0-96.0); MONO # 1.3 10^3/uL (0.0-0.8); MONO % 16.8 % (0.0-5.0); NEUTROPHILS # 4.7 10^3/uL (1.8-7.7); NEUTROPHILS % 60.5 % (36.0-66.0); PLATELET COUNT, AUTOMATED 216 10^3/uL (150-450); RED BLOOD COUNT 4.77 10^6/uL (4.30-6.10); WHITE BLOOD COUNT 7.7 10^3/uL (4.0-10.0)
[2019-01-04 19:58] LABS: ALBUMIN 3.3 GM/DL (3.2-5.2); BILIRUBIN,TOTAL 0.4 MG/DL (0.2-1.0); CALCIUM LEVEL 8.6 MG/DL (8.5-10.1); CREATININE FOR GFR 1.39 MG/DL (0.70-1.30); GLOMERULAR FILTRATION RATE 57.4 (>56); POTASSIUM SERUM 4.6 MEQ/L (3.5-5.1); THYROID STIMULATING HORMONE 2.31 uIU/ML (0.358-3.740); TOTAL PROTEIN 6.5 GM/DL (6.4-8.2)
== END ==
LOC: M WUC 15:57
PROVIDERS: ATTEND Physician Assistant
DX: R10.13 Epigastric pain (principal)

== ENCOUNTER → 2019-01-13 | Outpatient (CLI) | payer OTHER ==
[~2019-01-13] MED LIST changes: -INDO50CA; +INDO50CA11; +METO25TA4; +TOPI50TA9; +TRIH2TAB3
--- NOTE | 2019-01-31 00:12 | ECWPNPC ---
PATIENT NAME: DEANNA AN : 1965 GENDER: MALE VISIT DATE: 01/13/2019 DISCHARGE DATE: 01/13/19 1542 VISIT LOCKED DATE TIME: PHYSICIAN: MINA HAYWOOD RESOURCE: MINA HAYWOOD REASON FOR APPOINTMENT 1. INCREASED LOW BACK PAIN PER LB HISTORY OF PRESENT ILLNESS HISTORY OF PRESENT ILLNESS: HERE FOR F/U OF CHRONIC LOW BACK PAIN.STATES HIS LEG SYMPTOMS HAVE SUBSIDED SINCE SIJ INJECTION IN NOVEMBER.LOW BACK PAIN PERSISTS R>L.RATING PAIN VAS 7/10.REVIEWED MRI AND DISCUSSED TREATMENT OPTIONS. PAIN THE PATIENT DESCRIBES THE PAIN... FALL RISK SCREENING: SCREENING :NO FALLS REPORTED IN THE LAST YEAR CURRENT MEDICATIONS TAKING DAPSONE 25 MG TABLET 1 TABLET ORALLY ONCE A DAY TAKING BETAMETHASONE DIPROPIONATE AUG 0.05 % OINTMENT 1 APPLICATION TO AFFECTED AREA EXTERNALLY BID TO RASH ON ELBOW TAKING TRIHEXYPHENIDYL HCL 5 MG TABLET TAKE ONE TABLET BY MOUTH TWICE DAILY ORAL TAKING [id number] 50-325-40 MG TABLET TAKE 1 TO 2 TABLETS BY MOUTH TWICE DAILY NEEDED FOR SEVERE HEADACHES (MAX DAILY DOSE FOUR) ORAL TAKING GABAPENTIN 600 MG TABLET TAKE ONE TABLET BY MOUTH @8AM AND TAKE ONE TABLET @12PM AND TAKE ONE TABLET @8PM ORAL TAKING BUSPIRONE HCL 10 MG TABLET TAKE ONE TABLET BY MOUTH @8AM AND TAKE ONE TABLET @8PM ORAL TAKING RISPERIDONE 0.5 MG TABLET TAKE ONE TABLET BY MOUTH @8PM ORAL TAKING AYR SALINE NASAL - GEL DIRECTED NASALLY TID TAKING SUCRALFATE 1 GM TABLET TAKE ONE TABLET BY MOUTH FOUR TIMES DAILY AFTER MEALS ORAL TAKING OMEPRAZOLE 40 MG CAPSULE DELAYED RELEASE TAKE ONE CAPSULE BY MOUTH @8AM ON AN EMPTY STOMACH ORAL TAKING ESCITALOPRAM OXALATE 10 MG TABLET TAKE ONE TABLET BY MOUTH ONCE DAILY ORAL TAKING DIVALPROEX SODIUM 250 MG TABLET DELAYED RELEASE TAKE THREE TABLETS BY MOUTH AT BEDTIME ORAL TAKING LEVOTHYROXINE SODIUM 75 MCG TABLET TAKE ONE TABLET BY MOUTH @8AM ORALLY TAKING ONDANSETRON HCL 4 MG TABLET TAKE ONE TABLET BY MOUTH 1-2 TIMES A DAY BEFORE MEAL TAKE ONLY WHEN NAUSEOUS ORAL TAKING E-Z SPACER - DEVICE DIRECTED _ DAILY TAKING FISH OIL + D3 [id number] MG-UNIT CAPSULE 1 CAPSULE ORALLY BID OTC TAKING MULTIVITAMIN ADULT - TABLET DIRECTED ORALLY TAKING VITAMIN D 1000 UNIT TABLET 1 TABLET ORALLY ONCE A DAY TAKING ZYRTEC ALLERGY 10 MG TABLET 1 TABLET ORALLY ONCE A DAY TAKING SYNTHROID 75 MCG TABLET 1 TABLET ON AN EMPTY STOMACH IN THE MORNING ORALLY ONCE A DAY TAKING ZANTAC 150 MG TABLET 2 TABLET AT BEDTIME ORALLY ONCE A DAY TAKING ATORVASTATIN CALCIUM 40 MG TABLET 1 TABLET ORALLY ONCE A DAY TAKING VENTOLIN HFA 108 (90 BASE) MCG/ACT AEROSOL SOLUTION INHALE TWO PUFFS BY MOUTH EVERY FOUR HOURS NEEDED INHALATION TAKING TIZANIDINE HCL 4 MG TABLET TAKE ONE TABLET BY MOUTH AT BEDTIME MAX DAILY DOSE ONE TABLET ORAL TAKE AT BEDTIME TAKING COLACE 100 MG CAPSULE 1 CAPSULE NEEDED ORALLY BID PRN NOT-TAKING AUGMENTIN 500-125 MG TABLET DIRECTED ORALLY , NOTES: DONE NOT-TAKING METOPROLOL TARTRATE 25 MG TABLET TAKE ONE TABLET BY MOUTH @8AM ORAL MEDICATION LIST REVIEWED AND RECONCILED WITH THE PATIENT PAST MEDICAL HISTORY DEPRESSION/ANXIETY- DR LAWLER. /THERAPIST Q2 WEEKS HYPERLIPIDEMIA GERD WITH BARRETTS: REPEAT EGD IN 07/2018 VITAMIN D DEF FRAN: FOLLOWING WITH PULMONOLOGY: COMPLIANT WITH CPAP CAD: BYPASS WITH AUTOLOGOUS VEIN: DR. VALENCIA AT [facility] ECHO 10/17/2016. HYPERTENSIVE HEART DISEASE CARDIAC PET NUCLEAR STRESS 09/26/2016. LVEF 66% BACK PAIN HISTORY OF CHICKENPOX, MEASLES, MUMPS LYTIC LESION ADJACENT TO RT LOBE LIVER APPEARING WITHIN GB FOSSA: NO SURGICAL INTERVENTION IDICATED: DR. DOMINIQUE THYROID U/S 09/16 DIFFUSE HETEROGENEITY 2 6MM NODULES AT [facility]. - DR HERMILA RAUSCH CARDIAC CATH WITH CABG 11/13/2016 SPECT STRESS LVEF 55%, NO EVIDENCE OF ISCHEMI, LEFT VENTRICULAR DIALATION WITH STRESS 08/26/2017 EUS HIDA SCAN FATTY LIVER WITH FATTY PANCREAS COLONOSCOPY 2017 UPPER ENDOSCOPY 2018 GALLBLADDER U/S 04/23/18: FATTY INFILTRATE OF LIVER AND EXOPHYTIC CYST ON THE RIGHT LOBE. NO HEPATIC SOLID MASS OR BILLARY DILATATION. GALLBLADDER WITHOUT ACUTE FINDINGS THYROID US WITH SMALL THYROID NODULE UNCHANGED ECHO: 12/20/17-NO SIGNIFICANT VALVULAR DISEASE, LEFT VENTRICULAR SYSTOLIC FUNCTION NORMAL, LEFT VENTRICULAR DIASTOLIC FUNCTION NORMAL, CONCENTRIC LEFT CENTRICULAR HYPERTROPHY MILD, HYPERTNESIVE HEART DISEASE MODERATE. MILDLY DILATED LEFT ATRIUM 4.3CM. MILDLY DILATED AORTIC ROOT AT 4.0CM. TRACE TO SMALL PERICARDAL EFFUSION NOTED POSTERIORLY IN LIMITED VIEWS, NO EVIDENCE OF CARDIAC TAMPONADE. LVEF 55-60% DERMATITIS HERPETIFORMIS ALLERGIES CODEINE PHOSPHATE (FOR ALLERGIES USE ONLY): NAUSEA/VOMITING - SIDE EFFECTS LATEX (FOR ALLERGY USE ONLY): RASH - ALLERGY ADHESIVE TAPE GLUTEN ALLERGY: RASH - ALLERGY SURGICAL HISTORY LEFT HAND, 5TH DIGIT, REMOVED TUMOR 1979 & 2016 TONSILLECTOMY CHILD COLONOSCOPY- INTERNAL HEMORRHOID, POLYP X 1- ADENOMATOUS 02/02/15 COLONOSCOPY - 2 TUBULAR ADENOMAS, MUCOSAL ULCERATION, MODERATE DIVERTICULOSIS IN THE SIGMOID COLON, EXTERNAL HEMORRHOIDS. SIGMOIDOSCOPY DUE 10/2018, REPEAT COLONOSCOPY 5 YRS 10/13/17 EGD- [facility] 02/02/15 HEMORRHOIDECTOMY 4-6- LEFT FOOT BUNIONECTOMY WITH FIRST METATARSAL OSTEOSTOMY-DR. IRIZARRY 03/31/16 CABG- 4 VESSEL AT [facility] 11/11/16 LEFT HAND CP SX, AND TENDON REMOVAL. [facility] 01/2018 UPPER ENDOSCOPIC ULTRASOUND WITH ANESTHESIA 07/2018 WIRES REMOVED FROM CHEST 09/29/2018 FAMILY HISTORY FATHER: 79 YRS, [place], HTN, DIAGNOSED WITH HYPERTENSION, HEART DISEASE IN 62 MOTHER: ALIVE 66 YRS, HTN, HYPERTENSION, HEART DISEASE 1 BROTHER(S) , 1 SISTER(S) - HEALTHY. 3 HALF BROTHER, 1 HALF SISTER-HEALTHY, NO KNOWN FAMILY HISTORY OF ANY UROLOGICALLY RELATED DISEASES\\\\\\\/CANCERS. DENIES ANY FAMILY HX SKIN CANCER OR PANCREATIC CANCER. SOCIAL HISTORY GENERAL: TOBACCO USE ARE YOU A:FORMER SMOKER HOW LONG HAS IT BEEN SINCE YOU LAST SMOKED?5-10 YEARS LATEX QUESTIONNAIRE LATEX ALLERGY : HAVE YOU EVER DEVELOPED ANY TYPE OF REACTION AFTER HANDLING LATEX PRODUCTS SUCH RUBBER GLOVES, CONDOMS, DIAPHRAGMS, BALLOONS, SOCKS, OR UNDERWEAR?YES LATEX ALLERGY : HAVE YOU EVER DEVELOPED ANY TYPE OF REACTION DURING OR AFTER DENTAL APPOINTMENT, VAGINAL/RECTAL EXAMINATION, SURGICAL PROCEDURE, OR ANY OTHER EXPOSURE?NO - PLEASE INDICATE :RUBBER GLOVES, CONDOMS, BALLOONS RASH DATE ASKED : 12/30/2018 LATEX RISK : HAVE YOU EVER HAD ANY DIFFICULTY BREATHING OR HIVES AFTER EATING OR HANDLING ANY FRUITS, OR VEGETABLES; SUCH KIWI, BANANAS, STONE FRUITS, OR CHESTNUTSNO LATEX RISK : DO YOU HAVE A PREVIOUS PERSONAL HISTORY OF MORE THAN NINE SURGERIES, SPINA BIFIDA, OR REPEATED CATHERTIZATIONS? NO LATEX RISK : ARE YOU FREQUENTLY EXPOSED TO LATEX PRODUCTS IN YOUR OCCUPATION?NO LUNG CANCER SCREENING SMOKING STATUS:FORMER SMOKER IS THE PATIENT BETWEEN THE AGE OF 57 AND 79?NO BMI CARE GOAL FOLLOW-UP ABOVE NORMAL BMI FOLLOW-UPDIETARY MANAGEMENT EDUCATION, GUIDANCE, AND COUNSELING ALCOHOL SCREENING DID YOU HAVE A DRINK CONTAINING ALCOHOL IN THE PAST YEAR?NO POINTS0 INTERPRETATIONNEGATIVE RECREATIONAL DRUG USE DRUG USE?NO CAFFEINE CAFFEINE USE?YES COFEE: 2 CUPS PER DAY SEXUAL HX HAD SEX IN THE LAST 12 MONTHS (VAGINAL, ORAL, OR ANAL)?: NO, HAVE YOU EVER HAD AN STD?: NO. HIV / HEP-C SCREENING HIV TEST OFFERED TO PATIENT:NO HEP-C TEST OFFERED TO PATIENT:NO CONFUCIANISM [id number] RELIGIOUS LANGUAGE CYMRO. EDUCATION 3RD GRADE. STATES IS ABLE TO READ NEWSPAPER. WRITES BUT SPELLING IS NOT GOOD. . LEARNING BARRIERS / SPECIAL NEEDS CHANGE FROM LAST VISIT?NO BARRIERS TO LEARNING?YES COMMENTS LEARNING DISABILITY HEARING IMPAIRED?NO VISION IMPAIRED?YES COGNITIVELY IMPAIRED?NO :CORRECTIVE LENSES READINESS TO LEARN?YES LEARNING PREFERENCES?NO LEARNING CAPABILITIES PRESENT?YES EMOTIONAL BARRIERS?NO SPECIAL DEVICES?NO PRODUCTION COST ESTIMATOR NEEDED?NO DOMESTIC VIOLENCE DO YOU FEEL SAFE IN YOUR ENVIRONMENT?YES OCCUPATION: DISABLED, SSI. DIET: NO ADDED SALT, LOW FAT, LOW CHOLESTEROL. EXERCISE: NO REGULAR EXERCISE. MARITAL STATUS: SINGLE. PAIN CLINIC PFS, CLERGY, PUBLIC HEALTH REFERRALS HAS THE PATIENT BEEN EDUCATED REGARDING HIS/HER PLAN OF CARE?YES HAS THE PATIENT BEEN EDUCATED REGARDING PAIN, THE RISK FOR PAIN, THE IMPORTANCE OF EFFECTIVE PAIN MANAGEMENT, AND THE PAIN ASSESSMENT PROCESS?YES HOUSING: RENTS APARTMENT. ADVANCE DIRECTIVE ADVANCE DIRECTIVE DISCUSSED WITH PATIENT:YES PT DOES NOT HAVE ANY ADVANCED DIREDTIVES AND HE DECLINES INFORMATION ON HCP AT THIS TIME. REVIEWED WITH PT 05/14/18 4415 [facility]09/01/18 9829 REVIEWED WITH PT. HERMES WITH PATIENT 01/13/19 0002 JS. HOSPITALIZATION/MAJOR DIAGNOSTIC PROCEDURE [facility]- DEPRESSION/ANXIETY 14 YO HOUSE OF KIRSTIN RAUSCH- [place]- DEPRESSION 18 YO FATHER RITA- INGRID- LOCKED FACILTY- [place] OF DEPRESSION. [age]YO HEMORRHOIDECTOMY WITH REMOVAL OF A MIXED HEMORRHOIDAL BUNDLES AT THE LEFT LATERAL AND RIGHT ANTERIOR AND POSTERIOR POSITIONS. 01/11/2016 CABG: [facility] 11/11/16 [facility] 11/21 REVIEW OF SYSTEMS REVIEWED BY: PROVIDER: MINA SHAH . CONSTITUTIONAL: ANY CHANGE IN YOUR MEDICAL CONDITION? NO . CHILLS NO . FEVER NO . INFECTION: DO YOU HAVE NEW INFECTIONS? NO . DO YOU HAVE HISTORY OF MRSA? NO . MUSCULOSKELETAL: ANY NEW PATTERNS OF PAIN OR NUMBNESS? YES, INCREASED LOW BACK PAIN. ALSO STATES WEAKNESS TO RIGHT LOW BACK. STATES PAIN IN LEG HAS BEEN GONE SINCE THE SACROILIAC JOINT INJECTION IN NOVEMBER . GASTROENTEROLOGY: ANY NEW CHANGE IN BOWEL CONTROL? NO . GENITOURINARY: ANY NEW CHANGE IN BLADDER CONTROL? NO . IS THERE A CHANCE YOU COULD BE ? NO . HEMATOLOGY/LYMPH: DO YOU TAKE ANY BLOOD THINNERS? (FOR EXAMPLE- COUMADIN, PLAVIX, AGGRENOX, PLATEL, PRADAXA, OR XARELTO) NO . WHEN WAS YOUR LAST DOSE? DATE: TIME: . NEUROLOGY: HAVE YOU FALLEN IN THE PAST 12 MONTHS? YES, STATES MULTIPLE FALLS IN DECEMBER. WENT TO ED AFTER SLIPPING ON ICE AND HITTING HIS FACE ON A BENCH. ED VISIT AFTER THE FALL WITH HEAD CT, STATES NEGATIVE IMAGING . ANY NEW EXTREMITY NUMBNESS OR WEAKNESS? NO . CARDIOLOGY: DO YOU HAVE A PACEMAKER OR DEFIBRILLATOR? NO . RESPIRATORY: HAVE YOU BEEN SICK IN THE PAST WEEK? NO . FEVER NO . FLU LIKE SYMPTOMS? NO . COUGH NO . INTEGUMENTARY: DO YOU HAVE ANY RASHES OR OPEN SORES? NO . ALLERGIC/IMMUNO: ARE YOU ALLERGIC TO IV DYE? NO . ANY NEW ALLERGIES? YES, GLUTEN . PSYCHIATRIC: DO YOU HAVE THOUGHTS OF HURTING YOURSELF OR SOMEONE ELSE? NO . ARE YOU ABUSED, NEGLECTED, OR IN AN UNSAFE ENVIRONMENT? NO . ENDOCRINOLOGY: ARE YOU DIABETIC? NO . OTHER: DO YOU NEED ANY PRESCRIPTIONS? NO . IF YES, PLEASE LIST: ____ . ANY NEW PROBLEMS WITH YOUR MEDICATIONS? NO . WHEN DID YOU LAST EAT? ____ . WHEN DID YOU LAST DRINK? ____ . WHAT DID YOU LAST DRINK? ____ . NAME OF PERSON DRIVING YOU HOME? ____ . DO YOU HAVE ANY OTHER QUESTIONS OR CONCERNS NO, SHINGLES VACCINE 12/21/18 . VITAL SIGNS WT 328 LBS, HT 68 IN, BMI 49.87 INDEX, BP 128/71 MM HG, HR 55 /MIN, RR 18 /MIN, TEMP 96.5 F, OXYGEN SAT % 96%, SAFE IN ENV? (Y/N) YES, NA INITIALS SC 14:52, REVIEWED BY: RACHELL. EXAMINATION GENERAL EXAMINATION: LUNGS: LUNG SOUNDS ARE CLEAR . HEART: HEART RATE REGULAR . MUSCULOSKELETAL:*, MUSCLE STRENGTH TESTING 5/5 BILATERAL LOWER EXTREMITIES., ,PALPATION: POSITIVE FOR PAIN OVER L/S SPINE. POSITIVE FOR PAIN OVER L/S PARSPINALS.SPECIFIC POINT TENDERNESS OVER BILAT L3/4-L4/5 LUMBR FACETS WITH FACET LOADING R>L. DIAGNOSTIC:MRI L/S SPINE . ASSESSMENTS OTHER SPONDYLOSIS, LUMBOSACRAL REGION - M47.897 (PRIMARY) TREATMENT OTHER SPONDYLOSIS, LUMBOSACRAL REGION NOTES: RIGHT L3/4-/L4/5 DX FACET BLOCK. PREVENTIVE MEDICINE PAIN CLINIC TEACHING: PROCEDURE TEACHING REVIEWED DIAGNOSTIC FACET BLOCK PROCEDURE INFORMATION WITH PATIENT. ALSO REVIEWED PRE-PROCEDURE INSTRUCTIONS. PATIENT VERBALIZED AN UNDERSTANDING. WILBER SANTIAGO 01/13/2019 4:08:25 PM > . PROCEDURE CODES FA211 ESTABILISHED PATIENT [facility] CHARGE DISPOSITION & COMMUNICATION FOLLOW UP POST (REASON: RIGHT L3/4-/L4/5 DX FACET BLOCK) ELECTRONICALLY SIGNED BY PABLO KAM ON 01/30/2019 AT 12:02 PM EDT DISCLAIMER : THIS IS A VISIT SUMMARY EXTRACTED FROM THE [employer] CHART. IT IS NOT A COPY OF THE [employer] PROGRESS NOTE. GERALD
== END ==
LOC: M PAIN 14:15
PROVIDERS: ATTEND Nurse Practitioner Family
DX: M47.897 Other spondylosis, lumbosacral region (principal); G89.29 Other chronic pain; E78.5 Hyperlipidemia, unspecified; K21.9 Gastro-esophageal reflux disease without esophagitis; G47.33 Obstructive sleep apnea (adult) (pediatric); E55.9 Vitamin D deficiency, unspecified; F32.9 Major depressive disorder, single episode, unspecified; F41.9 Anxiety disorder, unspecified; E66.01 Morbid (severe) obesity due to excess calories; Z68.42 Body mass index [BMI] 45.0-49.9, adult; Z79.899 Other long term (current) drug therapy; Z88.5 Allergy status to narcotic agent; Z91.018 Allergy to other foods; Z91.040 Latex allergy status; Z91.09 Other allergy status, other than to drugs and biological substances; Z86.79 Personal history of other diseases of the circulatory system; Z87.891 Personal history of nicotine dependence

== ENCOUNTER 2019-01-14 11:54 | Day surgery (SDC) | payer OTHER ==
[~2019-01-14] VITALS: Ht 172.7 cm; Wt 149.6 kg
[~2019-01-14 11:54] MED LIST changes: +INDO50CA; -INDO50CA11; -METO25TA4; +NS 1,000 ML IV ONE; -TOPI50TA9; -TRIH2TAB3
[2019-01-14] MEDS ORDERED: LIDOCAINE 2% MDV 20 ML VIAL As Ordered ONE (14:16)
[2019-01-14] MEDS ORDERED: PROPOFOL 200 MG/20 ML VIAL As Ordered ONE (14:16)
[2019-01-14 15:14] VITALS: BP 122/67
--- NOTE | 2019-01-14 15:19 | ROOR ---
Patient Name: Rinku Whelan Procedure Date: 01/14/2019 2:40 PM Date of : 1965 Age: 53 Room: [facility] Gender: Male Note Status: Finalized Procedure: Upper GI endoscopy Indications: Suspected celiac disease, Positive celiac serologies Providers: Lizandro Duron MD Referring MD: Bhavani Snell NP Requesting Provider: Medicines: Monitored Anesthesia Care Complications: No immediate complications. Procedure: Pre-Anesthesia Assessment: - Prior to the procedure, a History and Physical was performed, and patient medications and allergies were reviewed. The patient is competent. The risks and benefits of the procedure and the sedation options and risks were discussed with the patient. All questions were answered and informed consent was obtained. Patient identification and proposed procedure were verified by the physician, the nurse and the anesthesiologist in the procedure room. Mental Status Examination: alert and oriented. Airway Examination: normal oropharyngeal airway and neck mobility. Respiratory Examination: clear to auscultation. CV Examination: normal. Prophylactic Antibiotics: The patient does not require prophylactic antibiotics. Prior Anticoagulants: The patient has taken no previous anticoagulant or antiplatelet agents. ASA Grade Assessment: II - A patient with mild systemic disease. After reviewing the risks and benefits, the patient was deemed in satisfactory condition to undergo the procedure. The anesthesia plan was to use monitored anesthesia care (MAC). Immediately prior to administration of medications, the patient was re-assessed for adequacy to receive sedatives. The heart rate, respiratory rate, oxygen saturations, blood pressure, adequacy of pulmonary ventilation, and response to care were monitored throughout the procedure. The physical status of the patient was re-assessed after the procedure. The Endoscope was introduced through the mouth, and advanced to the second part of duodenum. The upper GI endoscopy was accomplished without difficulty. The patient tolerated the procedure well. Findings: One tongue of salmon-colored mucosa was present from 39 to 41 cm. No other visible abnormalities were present. The maximum longitudinal extent of these esophageal mucosal changes was 2 cm in length. Mucosa was biopsied with a cold forceps for histology. One specimen bottle was sent to pathology. Verification of patient identification for the specimen was done by the physician and nurse using the patient's name, date and medical record number. Estimated blood loss was minimal. Striped moderately erythematous mucosa without bleeding was found in the gastric antrum. Decreased folds were found in the duodenal bulb, decreased folds were found in the second portion of the duodenum, scalloped mucosa was found in the duodenal bulb and scalloped mucosa was found in the second portion of the duodenum. Biopsies for histology were taken with a cold forceps for evaluation of celiac disease. 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 Biopsied. - Erythematous mucosa in the antrum. - Duodenal mucosal changes seen, diagnostic of celiac disease. Biopsied. Recommendation: - Patient has a contact number available for emergencies. The signs and symptoms of potential delayed complications were discussed with the patient. Return to normal activities tomorrow. Written discharge instructions were provided to the patient. - Gluten free diet. - Continue present medications. - Follow an antireflux regimen. - Await pathology results. - Repeat upper endoscopy in 3 years for surveillance based on pathology results. - Based on the biopsy results you will receive a phone call from GI clinic in 2-3 weeks to review the pathology results AND/OR your results will be faxed to your Primary care physician. - Return to primary care physician. Lizandro Duron MD Lizandro Duron MD 01/14/2019 3:19:20 PM Electronically signed by Lizandro Duron MD Number of Addenda: 0 Note Initiated On: 01/14/2019 2:40 PM Estimated Blood Loss: Estimated blood loss was minimal.
== END 2019-01-14 15:58 | disposition home or self-care (01) ==
LOC: M OPP 11:54
PROVIDERS: ATTEND Internal Medicine Gastroenterology
DX: K22.70 Barrett's esophagus without dysplasia (principal); K31.89 Other diseases of stomach and duodenum; R76.8 Other specified abnormal immunological findings in serum

== ENCOUNTER 2019-01-31 15:05 | Emergency (ER) | payer MEDICAID, OTHER ==
[~2019-01-31] VITALS: Ht 172.7 cm; Wt 148.4 kg
[~2019-01-31 15:05] MED LIST changes: -INDO50CA; +INDO50CA11; -NS 1,000 ML IV ONE
[2019-01-31 15:39] LABS: BASO # 0.1 10^3/uL (0.0-0.2); BASO % 0.6 % (0.0-1.0); EOS # 0.1 10^3/uL (0.0-0.50); EOS % 0.8 % (0.0-3.0); HEMATOCRIT 48.3 % (42.0-52.0); HEMOGLOBIN 15.7 g/dl (13.5-17.5); LYMPH # 1.8 10^3/uL (1.5-4.5); MEAN CORPUSCULAR HEMOGLOBIN 30.7 pg (27.0-33.0); MEAN CORPUSCULAR HGB CONC 32.5 g/dl (32.0-36.5); MEAN CORPUSCULAR VOLUME 94.3 fl (80.0-96.0); MONO # 1.4 10^3/uL (0.0-0.8); MONO % 16.2 % (0.0-5.0); NEUTROPHILS # 5.4 10^3/uL (1.8-7.7); NEUTROPHILS % 61.1 % (36.0-66.0); PLATELET COUNT, AUTOMATED 210 10^3/uL (150-450); RED BLOOD COUNT 5.12 10^6/uL (4.30-6.10); WHITE BLOOD COUNT 8.8 10^3/uL (4.0-10.0)
[2019-01-31] MEDS ORDERED: TOPI50TA9 (15:42)
[2019-01-31] MEDS ORDERED: METO25TA4 (15:42)
[2019-01-31] MEDS ORDERED: TRIH2TAB3 (15:42)
[2019-01-31 16:18] LABS: ALBUMIN 3.4 GM/DL (3.2-5.2); BILIRUBIN,DIRECT 0.1 MG/DL (0.0-0.2); BILIRUBIN,TOTAL 0.4 MG/DL (0.2-1.0); CALCIUM LEVEL 8.8 MG/DL (8.5-10.1); CREATININE FOR GFR 1.5 MG/DL (0.70-1.30); GLOMERULAR FILTRATION RATE 52.5 (>56); POTASSIUM SERUM 4.7 MEQ/L (3.5-5.1); TOTAL PROTEIN 7.4 GM/DL (6.4-8.2)
[2019-01-31] MEDS ORDERED: ONDANSETRON 4MG/2ML VIAL (J2405) IV ONE (16:30)
[2019-01-31] MEDS ORDERED: NS 1,000 ML IV ONE (16:30)
[2019-01-31] MEDS ORDERED: KETOROLAC 30 MG/ML VIAL (J1885) IV ONE (16:30)
[2019-01-31] MEDS ORDERED: ISOVUE-370 76% 100ML VIAL (Q9967) As Ordered ONE (17:03)
[2019-01-31] MEDS ORDERED: GI COCKTAIL 50ML BTL(HYOSCYAMINE/MAALOX/LIDOCAINE VISCOUS)(1:3:1) PO ONE (18:00)
[2019-01-31 19:56] LABS: CALCIUM LEVEL 8.4 MG/DL (8.5-10.1); CREATININE FOR GFR 1.44 MG/DL (0.70-1.30); GLOMERULAR FILTRATION RATE 55.1 (>56); POTASSIUM SERUM 4.4 MEQ/L (3.5-5.1)
[2019-01-31 20:32] VITALS: BP 114/75
--- NOTE | 2019-02-01 07:21 | REP ---
REASON: Diffuse abdominal pain. COMPARISON: Multiple, the latest 09/13/2018, a noncontrast enhanced examination but the latest contrast enhanced examination of 07/02/2018 were both reviewed. CONTRAST: 100 mL Isovue-370. The lung bases are clear and unchanged. There is an hepatic cyst status quo. There are no enhancing hepatic lesions or significant changes in the appearance of the liver from the prior exam. There is no change in appearance of the gallbladder. There is no evidence of cholelithiasis or gallbladder wall thickening. The pancreas, spleen, adrenal glands and kidneys are unchanged and again seen to be within normal limits with the exception of the a tiny nonobstructing left intrarenal calculus which is stable. The abdominal aorta and paraortic regions are again seen to be within normal limits. They are stable. The bowel loops and the mesenteries are again seen to be within normal limits and unchanged. The appendix is well visualized and is normal. There is no free fluid or free air. There is no evidence of an intraabdominal mass or adenopathy. CT PELVIS: There is no evidence of a pelvic mass or adenopathy. There is no free fluid or free air. The bowel loops and their mesenteries are again seen to be within normal limits. The urinary bladder is decompressed. Bone window technique throughout the examination shows the osseous structures to be stable and intact. IMPRESSION: Essentially unchanged CT examination of the abdomen and pelvis. Findings as described above. There is no evidence of acute disease. Electronically Signed by John Fry DO 02/01/2019 04:29 P
== END 2019-01-31 20:35 | disposition home or self-care (01) ==
LOC: M ED 15:05
DX: R31.9 Hematuria, unspecified (principal); R19.7 Diarrhea, unspecified; R11.0 Nausea; R10.84 Generalized abdominal pain; E78.5 Hyperlipidemia, unspecified; M54.5 Low back pain; K21.9 Gastro-esophageal reflux disease without esophagitis; K76.0 Fatty (change of) liver, not elsewhere classified; K86.9 Disease of pancreas, unspecified; Z95.1 Presence of aortocoronary bypass graft; Z79.51 Long term (current) use of inhaled steroids; Z79.899 Other long term (current) drug therapy; Z79.82 Long term (current) use of aspirin; Z88.5 Allergy status to narcotic agent; Z91.018 Allergy to other foods; Z91.040 Latex allergy status; Z91.048 Other nonmedicinal substance allergy status
CPT/HCPCS: 74177; 80048; 80076; 81001; 83690; 85025; 96361; 96374; 96375; 99284; J1885; J2405; Q9967

== ENCOUNTER → 2019-02-02 | Outpatient (CLI) | payer OTHER ==
[~2019-02-02] MED LIST changes: +BUPIVACAINE HCL 0.25% 30 ML VIAL As Ordered ONE; +ISOVUE-M 300 61% 15ML VIAL (Q9967) As Ordered ONE; +LIDOCAINE 1% SDV INJ 30 ML VIAL As Ordered ONE; +MECL-68 PO; +METO25TA4; +TOPI50TA9; +TRIH2TAB3
--- NOTE | 2019-02-04 11:04 | REP ---
Facet block Images were reviewed with Dr. Romeo. The portable C-arm was provided in the OR for Dr. Volodymyr Cabello for fluoroscopic guidance. Two intraoperative last image hold fluoro spot films were obtained for needle placement verification for right lumbar facet injection. The films are on the PACS system and are available for review. 31 seconds of fluoroscopy time was utilized for this procedure. Reviewed by ALLISON Eli 02/02/2019 04:38 P Electronically Signed by Joaquin Romeo MD 02/04/2019 10:56 A
--- NOTE | 2019-02-21 00:12 | ECWPNPC ---
PATIENT NAME: EDANNA AN : 1965 GENDER: MALE VISIT DATE: 02/02/2019 DISCHARGE DATE: 02/02/19 1209 VISIT LOCKED DATE TIME: PHYSICIAN: CATRACHITA WILLIAMSON MD RESOURCE: CATRACHITA WILLIAMSON MD REASON FOR APPOINTMENT 1. RIGHT DX FACET BLOCK HISTORY OF PRESENT ILLNESS HISTORY OF PRESENT ILLNESS: PAIN THE PATIENT DESCRIBES THE PAIN... FALL RISK SCREENING: SCREENING :NO FALLS REPORTED IN THE LAST YEAR CURRENT MEDICATIONS TAKING DAPSONE 25 MG TABLET 1 TABLET ORALLY ONCE A DAY, NOTES: 02/02/19709 TAKING BETAMETHASONE DIPROPIONATE AUG 0.05 % OINTMENT 1 APPLICATION TO AFFECTED AREA EXTERNALLY BID TO RASH ON ELBOW, NOTES: 02/01/192199 TAKING TRIHEXYPHENIDYL HCL 5 MG TABLET TAKE ONE TABLET BY MOUTH TWICE DAILY ORAL , NOTES: 02/02/191039 TAKING BUSPIRONE HCL 10 MG TABLET TAKE ONE TABLET BY MOUTH @8AM AND TAKE ONE TABLET @8PM ORAL , NOTES: 02/02/19709 TAKING GABAPENTIN 600 MG TABLET TAKE ONE TABLET BY MOUTH @8AM AND TAKE ONE TABLET @12PM AND TAKE ONE TABLET @8PM ORAL , NOTES: 02/02/19709 TAKING RISPERIDONE 0.5 MG TABLET TAKE ONE TABLET BY MOUTH @8PM ORAL , NOTES: 02/01/191999 TAKING AYR SALINE NASAL - GEL DIRECTED NASALLY TID, NOTES: 02/01/192099 TAKING SUCRALFATE 1 GM TABLET TAKE ONE TABLET BY MOUTH FOUR TIMES DAILY AFTER MEALS ORAL , NOTES: 02/01/191999 TAKING OMEPRAZOLE 40 MG CAPSULE DELAYED RELEASE TAKE ONE CAPSULE BY MOUTH @8AM ON AN EMPTY STOMACH ORAL , NOTES: 02/02/19709 TAKING ESCITALOPRAM OXALATE 10 MG TABLET TAKE ONE TABLET BY MOUTH ONCE DAILY ORAL , NOTES: 02/01/192099 TAKING LEVOTHYROXINE SODIUM 75 MCG TABLET TAKE ONE TABLET BY MOUTH @8AM ORALLY , NOTES: 02/02/19709 TAKING ONDANSETRON HCL 4 MG TABLET TAKE ONE TABLET BY MOUTH 1-2 TIMES A DAY BEFORE MEAL TAKE ONLY WHEN NAUSEOUS ORAL , NOTES: >2 WEEKS TAKING E-Z SPACER - DEVICE DIRECTED _ DAILY TAKING FISH OIL + D3 [id number] MG-UNIT CAPSULE 1 CAPSULE ORALLY BID OTC, NOTES: 02/02/19709 TAKING MULTIVITAMIN ADULT - TABLET DIRECTED ORALLY , NOTES: 02/02/19709 TAKING VITAMIN D 1000 UNIT TABLET 1 TABLET ORALLY ONCE A DAY, NOTES: 02/02/19709 TAKING ZANTAC 150 MG TABLET 2 TABLET AT BEDTIME ORALLY ONCE A DAY, NOTES: 02/01/192099 TAKING VENTOLIN HFA 108 (90 BASE) MCG/ACT AEROSOL SOLUTION INHALE TWO PUFFS BY MOUTH EVERY FOUR HOURS NEEDED INHALATION , NOTES: 02/02/19 0800 TAKING TIZANIDINE HCL 4 MG TABLET TAKE ONE TABLET BY MOUTH AT BEDTIME MAX DAILY DOSE ONE TABLET ORAL Q8H, NOTES: 02/01/192099 TAKING ZYRTEC ALLERGY 10 MG TABLET 1 TABLET ORALLY ONCE A DAY, NOTES: 02/01/192099 TAKING ATORVASTATIN CALCIUM 40 MG TABLET 1 TABLET ORALLY ONCE A DAY, NOTES: 02/02/19709 TAKING METOPROLOL TARTRATE 25 MG TABLET TAKE ONE TABLET BY MOUTH @8AM ORAL , NOTES: 02/02/19709 NOT-TAKING [id number] 50-325-40 MG TABLET TAKE 1 TO 2 TABLETS BY MOUTH TWICE DAILY NEEDED FOR SEVERE HEADACHES (MAX DAILY DOSE FOUR) ORAL NOT-TAKING DIVALPROEX SODIUM 250 MG TABLET DELAYED RELEASE TAKE THREE TABLETS BY MOUTH AT BEDTIME ORAL NOT-TAKING COLACE 100 MG CAPSULE 1 CAPSULE NEEDED ORALLY BID PRN NOT-TAKING SYNTHROID 75 MCG TABLET 1 TABLET ON AN EMPTY STOMACH IN THE MORNING ORALLY ONCE A DAY, NOTES: DUPLICATE NOT-TAKING AUGMENTIN 500-125 MG TABLET DIRECTED ORALLY , NOTES: DONE MEDICATION LIST REVIEWED AND RECONCILED WITH THE PATIENT PAST MEDICAL HISTORY DEPRESSION/ANXIETY- DR LAWLER. /THERAPIST Q2 WEEKS HYPERLIPIDEMIA GERD WITH BARRETTS: REPEAT EGD IN 07/2018 VITAMIN D DEF FRAN: FOLLOWING WITH PULMONOLOGY: COMPLIANT WITH CPAP CAD: BYPASS WITH AUTOLOGOUS VEIN: DR. VALENCIA AT [facility] ECHO 10/17/2016. HYPERTENSIVE HEART DISEASE CARDIAC PET NUCLEAR STRESS 09/26/2016. LVEF 66% BACK PAIN HISTORY OF CHICKENPOX, MEASLES, MUMPS LYTIC LESION ADJACENT TO RT LOBE LIVER APPEARING WITHIN GB FOSSA: NO SURGICAL INTERVENTION IDICATED: DR. DOMINIQUE THYROID U/S 09/16 DIFFUSE HETEROGENEITY 2 6MM NODULES AT [facility]. - DR HERMILA RAUSCH CARDIAC CATH WITH CABG 11/13/2016 SPECT STRESS LVEF 55%, NO EVIDENCE OF ISCHEMI, LEFT VENTRICULAR DIALATION WITH STRESS 08/26/2017 EUS HIDA SCAN FATTY LIVER WITH FATTY PANCREAS COLONOSCOPY 2017 UPPER ENDOSCOPY 2018 GALLBLADDER U/S 04/23/18: FATTY INFILTRATE OF LIVER AND EXOPHYTIC CYST ON THE RIGHT LOBE. NO HEPATIC SOLID MASS OR BILLARY DILATATION. GALLBLADDER WITHOUT ACUTE FINDINGS THYROID US WITH SMALL THYROID NODULE UNCHANGED ECHO: 12/20/17-NO SIGNIFICANT VALVULAR DISEASE, LEFT VENTRICULAR SYSTOLIC FUNCTION NORMAL, LEFT VENTRICULAR DIASTOLIC FUNCTION NORMAL, CONCENTRIC LEFT CENTRICULAR HYPERTROPHY MILD, HYPERTNESIVE HEART DISEASE MODERATE. MILDLY DILATED LEFT ATRIUM 4.3CM. MILDLY DILATED AORTIC ROOT AT 4.0CM. TRACE TO SMALL PERICARDAL EFFUSION NOTED POSTERIORLY IN LIMITED VIEWS, NO EVIDENCE OF CARDIAC TAMPONADE. LVEF 55-60% DERMATITIS HERPETIFORMIS ALLERGIES CODEINE PHOSPHATE (FOR ALLERGIES USE ONLY): NAUSEA/VOMITING - SIDE EFFECTS LATEX (FOR ALLERGY USE ONLY): RASH - ALLERGY ADHESIVE TAPE GLUTEN ALLERGY: RASH - ALLERGY SURGICAL HISTORY LEFT HAND, 5TH DIGIT, REMOVED TUMOR 1979 & 2016 TONSILLECTOMY CHILD COLONOSCOPY- INTERNAL HEMORRHOID, POLYP X 1- ADENOMATOUS 02/02/15 COLONOSCOPY - 2 TUBULAR ADENOMAS, MUCOSAL ULCERATION, MODERATE DIVERTICULOSIS IN THE SIGMOID COLON, EXTERNAL HEMORRHOIDS. SIGMOIDOSCOPY DUE 10/2018, REPEAT COLONOSCOPY 5 YRS 10/13/17 EGD- [facility] 02/02/15 HEMORRHOIDECTOMY 4-6-16 LEFT FOOT BUNIONECTOMY WITH FIRST METATARSAL OSTEOSTOMY-DR. IRIZARRY 03/31/16 CABG- 4 VESSEL AT [facility] 11/11/16 LEFT HAND CP SX, AND TENDON REMOVAL. [facility] 01/2018 UPPER ENDOSCOPIC ULTRASOUND WITH ANESTHESIA 07/2018 WIRES REMOVED FROM CHEST 09/29/2018 FAMILY HISTORY FATHER: 79 YRS, [place], HTN, DIAGNOSED WITH HYPERTENSION, HEART DISEASE IN 62 MOTHER: ALIVE 66 YRS, HTN, HYPERTENSION, HEART DISEASE 1 BROTHER(S) , 1 SISTER(S) - HEALTHY. 3 HALF BROTHER, 1 HALF SISTER-HEALTHY, NO KNOWN FAMILY HISTORY OF ANY UROLOGICALLY RELATED DISEASES\\\\\\\\\\\\\\\/CANCERS. DENIES ANY FAMILY HX SKIN CANCER OR PANCREATIC CANCER. SOCIAL HISTORY GENERAL: TOBACCO USE ARE YOU A:FORMER SMOKER HOW LONG HAS IT BEEN SINCE YOU LAST SMOKED?5-10 YEARS HIV / HEP-C SCREENING HIV TEST OFFERED TO PATIENT:NO HEP-C TEST OFFERED TO PATIENT:NO HOUSING: RENTS APARTMENT. EDUCATION 3RD GRADE. STATES IS ABLE TO READ NEWSPAPER. WRITES BUT SPELLING IS NOT GOOD.. DIET: NO ADDED SALT, LOW FAT, LOW CHOLESTEROL. LANGUAGE BELARUSIAN. DOMESTIC VIOLENCE DO YOU FEEL SAFE IN YOUR ENVIRONMENT?YES BMI CARE GOAL FOLLOW-UP ABOVE NORMAL BMI FOLLOW-UPDIETARY MANAGEMENT EDUCATION, GUIDANCE, AND COUNSELING RECREATIONAL DRUG USE DRUG USE?NO EXERCISE: NO REGULAR EXERCISE. LEARNING BARRIERS / SPECIAL NEEDS CHANGE FROM LAST VISIT?NO BARRIERS TO LEARNING?YES COMMENTS LEARNING DISABILITY HEARING IMPAIRED?NO VISION IMPAIRED?YES COGNITIVELY IMPAIRED?NO :CORRECTIVE LENSES READINESS TO LEARN?YES LEARNING PREFERENCES?NO LEARNING CAPABILITIES PRESENT?YES EMOTIONAL BARRIERS?NO SPECIAL DEVICES?NO TRAFFIC ADMINISTRATOR NEEDED?NO LUNG CANCER SCREENING SMOKING STATUS:FORMER SMOKER IS THE PATIENT BETWEEN THE AGE OF 55 AND 77?NO PAIN CLINIC PFS, CLERGY, PUBLIC HEALTH REFERRALS HAS THE PATIENT BEEN EDUCATED REGARDING HIS/HER PLAN OF CARE?YES HAS THE PATIENT BEEN EDUCATED REGARDING PAIN, THE RISK FOR PAIN, THE IMPORTANCE OF EFFECTIVE PAIN MANAGEMENT, AND THE PAIN ASSESSMENT PROCESS?YES LATEX QUESTIONNAIRE LATEX ALLERGY : HAVE YOU EVER DEVELOPED ANY TYPE OF REACTION AFTER HANDLING LATEX PRODUCTS SUCH RUBBER GLOVES, CONDOMS, DIAPHRAGMS, BALLOONS, SOCKS, OR UNDERWEAR?YES LATEX ALLERGY : HAVE YOU EVER DEVELOPED ANY TYPE OF REACTION DURING OR AFTER DENTAL APPOINTMENT, VAGINAL/RECTAL EXAMINATION, SURGICAL PROCEDURE, OR ANY OTHER EXPOSURE?NO - PLEASE INDICATE :RUBBER GLOVES, CONDOMS, BALLOONS RASH DATE ASKED : 12/30/2018 LATEX RISK : HAVE YOU EVER HAD ANY DIFFICULTY BREATHING OR HIVES AFTER EATING OR HANDLING ANY FRUITS, OR VEGETABLES; SUCH KIWI, BANANAS, STONE FRUITS, OR CHESTNUTSNO LATEX RISK : DO YOU HAVE A PREVIOUS PERSONAL HISTORY OF MORE THAN NINE SURGERIES, SPINA BIFIDA, OR REPEATED CATHERTIZATIONS? NO LATEX RISK : ARE YOU FREQUENTLY EXPOSED TO LATEX PRODUCTS IN YOUR OCCUPATION?NO CAFFEINE CAFFEINE USE?YES COFEE: 2 CUPS PER DAY ADVANCE DIRECTIVE ADVANCE DIRECTIVE DISCUSSED WITH PATIENT:YES PT DOES NOT HAVE ANY ADVANCED DIREDTIVES AND HE DECLINES INFORMATION ON HCP AT THIS TIME. SIKHISM [id number] [facility] STATUS: SINGLE. ALCOHOL SCREENING DID YOU HAVE A DRINK CONTAINING ALCOHOL IN THE PAST YEAR?NO POINTS0 INTERPRETATIONNEGATIVE OCCUPATION: DISABLED, SSI. SEXUAL HX HAD SEX IN THE LAST 12 MONTHS (VAGINAL, ORAL, OR ANAL)?: NO, HAVE YOU EVER HAD AN STD?: NO. REVIEWED WITH PT 05/14/18 0915 LAS09/01/18 1149 REVIEWED WITH PT. ADREVIEWED WITH PATIENT 01/13/19 1455 JSREVIEWED WITH PATIENT 02/02/19 1048 LAS. HOSPITALIZATION/MAJOR DIAGNOSTIC PROCEDURE [facility]- DEPRESSION/ANXIETY 14 YO HOUSE OF KIRSTIN RAUSCH- [place]- DEPRESSION 18 YO FATHER RITA- INGRID- LOCKED FACILTY- [place] OF DEPRESSION. [age]YO HEMORRHOIDECTOMY WITH REMOVAL OF A MIXED HEMORRHOIDAL BUNDLES AT THE LEFT LATERAL AND RIGHT ANTERIOR AND POSTERIOR POSITIONS. 01/11/2016 CABG: [facility] 11/11/16 [facility] 11/21 REVIEW OF SYSTEMS REVIEWED BY: PROVIDER: . CONSTITUTIONAL: ANY CHANGE IN YOUR MEDICAL CONDITION? YES PT REPORTS A NEWLY DIAGNOSED GLUTEN ALLERGY . CHILLS NO . FEVER NO . INFECTION: DO YOU HAVE NEW INFECTIONS? NO . DO YOU HAVE HISTORY OF MRSA? NO . MUSCULOSKELETAL: ANY NEW PATTERNS OF PAIN OR NUMBNESS? PT REPORTS AN INCREASE IN PAIN OVER LAST COUPLE OF MONTHS . GASTROENTEROLOGY: ANY NEW CHANGE IN BOWEL CONTROL? NO . GENITOURINARY: ANY NEW CHANGE IN BLADDER CONTROL? NO . IS THERE A CHANCE YOU COULD BE ? NO . HEMATOLOGY/LYMPH: DO YOU TAKE ANY BLOOD THINNERS? (FOR EXAMPLE- COUMADIN, PLAVIX, AGGRENOX, PLATEL, PRADAXA, OR XARELTO) NO . WHEN WAS YOUR LAST DOSE? DATE: TIME: . NEUROLOGY: HAVE YOU FALLEN IN THE PAST 12 MONTHS? YES PT REPORTS HE SLIPPED AND FELL IN A PARKING LOT, PT WENT TO ED, XRAYS DONE ALL NEGATIVE PER PT. PT DENIES INJURY . ANY NEW EXTREMITY NUMBNESS OR WEAKNESS? NO . CARDIOLOGY: DO YOU HAVE A PACEMAKER OR DEFIBRILLATOR? NO . RESPIRATORY: HAVE YOU BEEN SICK IN THE PAST WEEK? NO . FEVER NO . FLU LIKE SYMPTOMS? NO . COUGH NO . INTEGUMENTARY: DO YOU HAVE ANY RASHES OR OPEN SORES? NO . ALLERGIC/IMMUNO: ARE YOU ALLERGIC TO IV DYE? NO . ANY NEW ALLERGIES? NO . PSYCHIATRIC: DO YOU HAVE THOUGHTS OF HURTING YOURSELF OR SOMEONE ELSE? NO . ARE YOU ABUSED, NEGLECTED, OR IN AN UNSAFE ENVIRONMENT? NO . ENDOCRINOLOGY: ARE YOU DIABETIC? NO . OTHER: DO YOU NEED ANY PRESCRIPTIONS? NO . IF YES, PLEASE LIST: ____ . ANY NEW PROBLEMS WITH YOUR MEDICATIONS? NO . WHEN DID YOU LAST EAT? ____02/01/19 1800 . WHEN DID YOU LAST DRINK? ____02/02/19 0700 . WHAT DID YOU LAST DRINK? ____WATER . NAME OF PERSON DRIVING YOU HOME? ____YELLOW CAB . DO YOU HAVE ANY OTHER QUESTIONS OR CONCERNS NO . VITAL SIGNS WT 333.2 LBS, HT 68 IN, BMI 50.66 INDEX, BP 119/88 MM HG, HR 98 /MIN, RR 18 /MIN, TEMP 97.7 F, OXYGEN SAT % 95, NA INITIALS MP 1007. ASSESSMENTS SPONDYLOSIS OF LUMBAR REGION WITHOUT MYELOPATHY OR RADICULOPATHY - M47.816 (PRIMARY) SPONDYLOSIS OF LUMBOSACRAL REGION WITHOUT MYELOPATHY OR RADICULOPATHY - M47.817 PROCEDURES PN LUMBAR FACET BLOCK DIAGNOSTIC PRE PROCEDURE DIAGNOSIS LUMBAR SPONDYLOSIS, LUMBOSACRAL SPONDYLOSIS POST PROCEDURE DIAGNOSIS LUMBAR SPONDYLOSIS, LUMBOSACRAL SPONDYLOSIS PROCEDURE RIGHT L4-L5 AND RIGHT L5-S1 FACET BLOCKS DIAGNOSTIC NUMBER [address] CATRACHITA WILLIAMSON REGULATOR TESTER NONE ANESTHESIA LOCAL PRE PROCEDURE NOTE THE PATIENT WITH HISTORY OF CHRONIC LOW BACK PAIN. I EVALUATED THE PATIENT AND REVIEWED THE CHART. I WENT OVER THE RISKS, ALTERNATIVES, AND BENEFITS ASSOCIATED WITH THIS PROCEDURE. THE PATIENT WOULD LIKE TO PROCEED AND GAVE CONSENT TO PERFORM THE PROCEDURE. AGREED WITH THE PATIENT WE ARE DOING THIS PROCEDURE TO DETERMINE IF THE PATIENT IS A CANDIDATE FOR A RADIOFREQUENCY ABLATION OF THE FACETS JOINTS. THE PATIENT DENIES UNEXPLAINABLE WEIGHT LOSS, FEVER, CHILLS, OR NEW CHANGES IN URINARY OR BOWEL CONTROL DESCRIPTION OF PROCEDURE THE PATIENT WAS BROUGHT TO THE PROCEDURE ROOM AND PLACED IN THE PRONE POSITION. THE LUMBOSACRAL AREA WAS CLEANED WITH CHLORAPREP SOLUTION AND DRAPED ASEPTICALLY. THE PROCEDURE WAS DONE UNDER STERILE CONDITIONS. I CHECKED LATERALITY AND THE LEVEL WHERE THE PROCEDURE WAS GOING TO BE PERFORMED WITH THE PATIENT AND THE SUPPORTING STAFF AT THE MOMENT OF THE TIME OUT IN THE PROCEDURE ROOM. UNDER FLUOROSCOPIC GUIDANCE, TARGETS WERE SELECTED AT THE INTERSECTION OF THE RIGHT TRANSVERSE PROCESS OF L4, L5 AND ALA OF S1 WITH ITS RESPECTIVE SUPERIOR ARTICULAR PROCESS. LIDOCAINE WAS USED TO NUMB THE SKIN AND THE SUBCUTANEOUS TISSUE BELOW IT. SPINAL NEEDLE, 22-GAUGE WAS ADVANCED UNDER FLUOROSCOPIC GUIDANCE AND FOLLOWING PATIENT FEEDBACK UNTIL THE TARGETS WERE REACHED. POSITION OF THE NEEDLES WAS VERIFIED WITH AP AND LATERAL VIEWS. AFTER PROPER POSITION OF THE NEEDLES WAS ACHIEVED, ISOVUE-M DYE 30% 0.1 ML WAS INJECTED AT EACH SITE SHOWING ADEQUATE SPREAD OF THE DYE. THEN A SOLUTION OF 0.4 ML OF BUPIVACAINE 0.25% WAS INJECTED AT EACH SITE. THERE WAS NO EVIDENCE OF BLOOD, PARESTHESIA OR CEREBROSPINAL FLUID DURING THE PROCEDURE. THE PATIENT WAS SENT TO THE RECOVERY ROOM. THE PATIENT WAS MOVING THE EXTREMITIES AND DOING WELL. THERE WAS NO COMPLICATION DURING THE PROCEDURE. FLUOROSCOPY TIME WAS 31 SECONDS POST PROCEDURE NOTE THE PATIENT WILL DOCUMENT HIS PAIN LEVEL AND RESPONSE TO THIS PROCEDURE EVERY 30 MINUTES. THE PATIENT WILL BE SEEN IN A FOLLOW UP IN THE NEXT FEW WEEKS. FURTHER DETERMINATION FOR HIS CASE WILL BE DONE AT THE NEXT VISIT. INSTRUCTIONS WERE GIVEN, QUESTIONS WERE ANSWERED, AND THE PATIENT EXPRESSED UNDERSTANDING AND AGREED WITH THE PLAN. I, ALLISON CHIANG, DOCUMENTED THE ABOVE INFORMATION ACTING A SCRIBE FOR DR. WILLIAMSON. I HAVE REVIEWED THE ABOVE DOCUMENT, WRITTEN BY ALLISON CHIANG SCRIBJuan Manuel AND I VERIFY THAT IT IS ACCURATE. DIAGNOSTIC IMAGING [facility] FACET BLOCK (PAIN)[id number] PROCEDURE CODES 15869 INJ PARAVERT F JNT L/S 1 LEV, [place]IF[place]: [place] [address] INJ PARAVERT F JNT L/S 2 LEV, MODIFIERS: RT [id number] RADXPS IN END [id number] PXD DISPOSITION & COMMUNICATION FOLLOW UP 3 WEEKS ELECTRONICALLY SIGNED BY CATRACHITA WILLIAMSON MD, MD ON 02/20/2019 AT 07:17 PM EDT DISCLAIMER : THIS IS A VISIT SUMMARY EXTRACTED FROM THE [facility] CHART. IT IS NOT A COPY OF THE [employer] PROGRESS NOTE. MTDD
== END ==
LOC: M PAIN 10:15
PROVIDERS: ATTEND Anesthesiology
DX: G89.29 Other chronic pain (principal); M47.816 Spondylosis without myelopathy or radiculopathy, lumbar region; M47.817 Spondylosis without myelopathy or radiculopathy, lumbosacral region; E78.5 Hyperlipidemia, unspecified; K21.9 Gastro-esophageal reflux disease without esophagitis; G47.33 Obstructive sleep apnea (adult) (pediatric); E66.01 Morbid (severe) obesity due to excess calories; Z68.43 Body mass index [BMI] 50.0-59.9, adult; Z79.899 Other long term (current) drug therapy; Z88.5 Allergy status to narcotic agent; Z91.02 Food additives allergy status; Z91.040 Latex allergy status; Z91.09 Other allergy status, other than to drugs and biological substances; Z87.891 Personal history of nicotine dependence; Z86.59 Personal history of other mental and behavioral disorders; Z86.79 Personal history of other diseases of the circulatory system
CPT/HCPCS: 64493; 64494; Q9967

== ENCOUNTER → 2019-02-04 | Outpatient (CLI) | payer OTHER ==
[~2019-02-04] MED LIST changes: -BUPIVACAINE HCL 0.25% 30 ML VIAL As Ordered ONE; -ISOVUE-M 300 61% 15ML VIAL (Q9967) As Ordered ONE; -LIDOCAINE 1% SDV INJ 30 ML VIAL As Ordered ONE; -MECL-68 PO
[2019-02-04 10:37] LABS: CALCIUM LEVEL 8.5 MG/DL (8.5-10.1); CREATININE FOR GFR 1.35 MG/DL (0.70-1.30); GLOMERULAR FILTRATION RATE 59.3 (>56); POTASSIUM SERUM 4.2 MEQ/L (3.5-5.1)
== END ==
LOC: M LAB 09:14
PROVIDERS: ATTEND Physician Assistant Medical
DX: R79.89 Other specified abnormal findings of blood chemistry (principal)

== ENCOUNTER → 2019-02-04 | Outpatient (CLI) | payer OTHER ==
[2019-02-04 10:33] LABS: HEMOGLOBIN A1c 5.8 %
[2019-02-04 10:47] LABS: FREE T4 0.83 NG/DL (0.76-1.46); TOTAL 25(OH) VITAMIN D 35.7 NG/ML (30.0-100.0); TOTAL PROTEIN 6.5 GM/DL (6.4-8.2)
[2019-02-08 13:31] LABS: ALBUMIN 3.64 GM/DL (3.29-5.55); ALPHA-1-GLOBULIN % 4.5 % (2.9-4.9); ALPHA-1-GLOBULINS 0.29 GM/DL (0.17-0.41); ALPHA-2-GLOBULINS 0.72 GM/DL (0.42-0.99); ALPHA-2-GLOBULINS % 11.1 % (7.1-11.8); BETA-1-GLOBULINS 0.44 GM/DL (0.28-0.60); BETA-1-GLOBULINS % 6.7 % (4.7-7.2); BETA-2-GLOBULINS 0.37 GM/DL (0.19-0.55); BETA-2-GLOBULINS % 5.7 % (3.2-6.5); GAMMA GLOBULINS 1.04 GM/DL (0.65-1.58)
[2019-02-09 14:11] LABS: ANTINUCLEAR ANTIBODIES DIRECT Negative (Negative); Methylmalonic Acid 226 nmol/L (0-378)
== END ==
LOC: M LAB 09:17
PROVIDERS: ATTEND Specialist
DX: Z13.1 Encounter for screening for diabetes mellitus (principal); E03.9 Hypothyroidism, unspecified; D51.3 Other dietary vitamin B12 deficiency anemia; D47.2 Monoclonal gammopathy; M12.9 Arthropathy, unspecified; M32.10 Systemic lupus erythematosus, organ or system involvement unspecified; E55.9 Vitamin D deficiency, unspecified

== ENCOUNTER → 2019-02-07 | Outpatient (CLI) | payer OTHER ==
--- NOTE | 2019-02-08 06:56 | PFTRPT ---
Site: [facility], [address] [place] [address], [id number] ID: [id number] Name: DEANNA AN Visit Date: 02/07/2019 Second ID: [id number] Referring Doctor: Bhavani Snell Reviewing Doctor: Haider Puentes MD Jalousie Installer: Rachna JUÁREZ RRT Age: 53 : 1965 Sex: Male Race: Height: 68.00 Inches Weight: 321.00 Lbs BSA: 2.50 Order IDs: [id number] Requested Test(s): <RESP-PFT.DLCO> Diagnosis: R05 of albuterol for postbronchodilator. IVC is less than 85% of VC. DLCO may be underestimated. Review Status: Not Reviewed Pre-Bronch Post-Bronch Pred Actual %Pred Actual %Chng SPIROMETRY FVC (L) 4.68 3.23 69 3.13 -3 FEV1 (L) 3.62 2.48 68 2.42 -2 FEV1/FVC (%) 77 77 99 77 FEF 25% (L/sec) 8.98 5.91 65 6.54 10 FEF 50% (L/sec) 6.08 2.52 41 2.40 -4 FEF 75% (L/sec) 1.90 0.80 42 0.64 -19 FEF 25-75% (L/sec) 3.20 2.03 63 1.83 -10 FEF Max (L/sec) 9.30 5.95 63 6.76 13 FIVC (L) 2.86 3.04 6 FIF 50% (L/sec) 4.93 3.55 72 3.69 3 FIF Max (L/sec) 3.99 4.13 3 MVV (L/min) 144 77 53 Expiratory Time (sec) 7.61 7.16 -5 Back Extrap Vol (L) 0.16 0.13 -23 Time To FEFmax (sec) 0.126 0.101 -20 LUNG VOLUMES SVC (L) 4.60 3.47 75 IC (L) 3.23 2.66 82 ERV (L) 1.37 0.80 58 TGV (L) 3.33 2.87 86 RV (Pleth) (L) 1.96 2.07 105 TLC (Pleth) (L) 6.56 5.53 84 RV/TLC (Pleth) (%) 30 37 124 DIFFUSION DLCOunc (ml/min/mmHg) 29.48 17.30 58 DL/VA (ml/min/mmHg/L) 4.49 4.92 109 VA (L) 6.56 3.52 53 BHT (sec) 10.22 IVC (L) 1.86 TLC (SB) (L) 3.67 AIRWAYS RESISTANCE Raw (cmH2O/L/s) 1.45 1.09 74 Gaw (L/s/cmH2O) 1.03 0.93 90 sRaw (cmH2O*s) 4.76 3.46 72 sGaw (1/cmH2O*s) 0.20 0.29 145
== END ==
LOC: M CARPUL 09:51
PROVIDERS: ATTEND Nurse Practitioner Family
DX: R05 Cough (principal); R06.2 Wheezing

== ENCOUNTER 2019-02-16 10:30 | Emergency (ER) | payer OTHER ==
[~2019-02-16] VITALS: Ht 172.7 cm; Wt 147.6 kg
[~2019-02-16 10:30] MED LIST changes: -MECL-68 PO
[2019-02-16 11:48] LABS: BASO % 0.5 % (0.0-1.0); EOS # 0.1 10^3/uL (0.0-0.50); EOS % 1.1 % (0.0-3.0); HEMOGLOBIN 14.9 g/dl (13.5-17.5); LYMPH # 1.6 10^3/uL (1.5-4.5); LYMPH % 24.9 % (24.0-44.0); MEAN CORPUSCULAR HEMOGLOBIN 31.3 pg (27.0-33.0); MEAN CORPUSCULAR HGB CONC 33.1 g/dl (32.0-36.5); MEAN CORPUSCULAR VOLUME 94.5 fl (80.0-96.0); MONO # 1.1 10^3/uL (0.0-0.8); MONO % 17.2 % (0.0-5.0); NEUTROPHILS # 3.5 10^3/uL (1.8-7.7); NEUTROPHILS % 55.8 % (36.0-66.0); PLATELET COUNT, AUTOMATED 197 10^3/uL (150-450); RED BLOOD COUNT 4.76 10^6/uL (4.30-6.10); WHITE BLOOD COUNT 6.3 10^3/uL (4.0-10.0)
[2019-02-16] MEDS ORDERED: MECLIZINE 25 MG TABLET PO ONE (12:30)
[2019-02-16 13:02] LABS: ALBUMIN 3.3 GM/DL (3.2-5.2); ALT/SGPT 33 U/L (12-78); BILIRUBIN,TOTAL 0.4 MG/DL (0.2-1.0); BLOOD UREA NITROGEN 13 MG/DL (7-18); CALCIUM LEVEL 8.7 MG/DL (8.5-10.1); CARBON DIOXIDE LEVEL 26 MEQ/L (21-32); CHLORIDE LEVEL 108 MEQ/L (98-107); CREATININE FOR GFR 1.33 MG/DL (0.70-1.30); GLOMERULAR FILTRATION RATE > 60.0 (>56); GLUCOSE, FASTING 113 MG/DL (70-100); POTASSIUM SERUM 3.9 MEQ/L (3.5-5.1); SODIUM LEVEL 141 MEQ/L (136-145)
[2019-02-16 13:16] LABS: INR 0.99; PROTHROMBIN TIME 13.2 SECONDS (12.1-14.4)
[2019-02-16 13:24] LABS: CPK CREATINE PHOSPHOKINASE 221 U/L (39-308); MB/CK RELATIVE INDEX 0.95 (< OR =4); TROPONIN I < 0.02 NG/ML (< 0.10)
[2019-02-16] MEDS ORDERED: MECL-68 PO (13:38)
[2019-02-16 13:41] VITALS: BP 120/72
--- NOTE | 2019-02-16 13:41 | ECGEPIP ---
Stationary ECG Study [facility] - ED Test Date: 2019-02-16 Pat Name: DEANNA AN Department: Room: - Gender: M Electrician Sound: : 1965 Requested By: MOISE SHAH Order Number: [id number] Reading MD: Purvi Cox Measurements Intervals [place] Rate: 63 P: -2 [place]: 134 QRS: -7 QRSD: 86 T: 40 QT: 415 QTc: 428 Interpretive Statements SINUS RHYTHM NSTTW ABNORMALITY SIMILAR 12/31/18 Electronically Signed On 02-16-2019 13:41:51 EDT by Purvi Cox
--- NOTE | 2019-02-16 14:08 | REP ---
CT brain without contrast: History: Dizziness. Comparison brain CT study November 07, 2018. Findings: Preliminary digital auto design checker radiograph is unremarkable. Bone window settings demonstrate an intact bony calvarium. There are foci of dural calcification at the vertex and in the anterior falx. There is minimal diffuse cerebral atrophy as before. There is no evidence of intracranial hemorrhage. No extra-axial fluid collection is seen. No mass, edema, or midline shift is seen. Impression: No acute intracranial abnormality. Electronically Signed by Timothy Barragan MD 02/16/2019 04:30 P
== END 2019-02-16 13:48 | disposition home or self-care (01) ==
LOC: M ED 10:30
DX: R42 Dizziness and giddiness (principal); I51.9 Heart disease, unspecified; E11.9 Type 2 diabetes mellitus without complications; I10 Essential (primary) hypertension; Z79.82 Long term (current) use of aspirin; Z79.84 Long term (current) use of oral hypoglycemic drugs; Z79.899 Other long term (current) drug therapy; Z91.89 Other specified personal risk factors, not elsewhere classified; Z91.040 Latex allergy status; Z91.018 Allergy to other foods; Z88.5 Allergy status to narcotic agent

== ENCOUNTER → 2019-02-16 | Outpatient (CLI) | payer OTHER ==
[~2019-02-16] MED LIST changes: +MECL-68 PO
--- NOTE | 2019-03-08 01:22 | ECWPNPC ---
PATIENT NAME: DEANNA AN : 1965 GENDER: MALE VISIT DATE: 02/16/2019 DISCHARGE DATE: 02/16/19 1015 VISIT LOCKED DATE TIME: PHYSICIAN: MINA HAYWOOD RESOURCE: MINA HAYWOOD REASON FOR APPOINTMENT 1. POST PROC HISTORY OF PRESENT ILLNESS HISTORY OF PRESENT ILLNESS: HERE FOR POST PROCEDURE F/U.HAD RIGHT L4/5-L5/S1 LFBDX #1 ON 02/02/19.REPORTING >80% IMPROVEMENT FOR >24HRS POST PROCEDURE.DESCRIBES PAIN INTERMITTENT STABBING ACROSS LOW BACK.PAIN IS AGGREVATED WITH CERTAIN ACTIVIRIES.RATING PAIN VAS 1-3/10.DISCUSSED DIAGNOSTIC TEST #2 AND RF. PAIN THE PATIENT DESCRIBES THE PAIN... FALL RISK SCREENING: SCREENING :NO FALLS REPORTED IN THE LAST YEAR CURRENT MEDICATIONS TAKING DAPSONE 25 MG TABLET 1 TABLET ORALLY ONCE A DAY TAKING BETAMETHASONE DIPROPIONATE AUG 0.05 % OINTMENT 1 APPLICATION TO AFFECTED AREA EXTERNALLY BID TO RASH ON ELBOW TAKING TRIHEXYPHENIDYL HCL 5 MG TABLET TAKE ONE TABLET BY MOUTH TWICE DAILY ORAL TAKING BUSPIRONE HCL 10 MG TABLET TAKE ONE TABLET BY MOUTH @8AM AND TAKE ONE TABLET @8PM ORAL TAKING GABAPENTIN 600 MG TABLET TAKE ONE TABLET BY MOUTH @8AM AND TAKE ONE TABLET @12PM AND TAKE ONE TABLET @8PM ORAL TAKING RISPERIDONE 0.5 MG TABLET TAKE ONE TABLET BY MOUTH @8PM ORAL TAKING AYR SALINE NASAL - GEL DIRECTED NASALLY TID TAKING SUCRALFATE 1 GM TABLET TAKE ONE TABLET BY MOUTH FOUR TIMES DAILY AFTER MEALS ORAL TAKING OMEPRAZOLE 40 MG CAPSULE DELAYED RELEASE TAKE ONE CAPSULE BY MOUTH @8AM ON AN EMPTY STOMACH ORAL TAKING ESCITALOPRAM OXALATE 10 MG TABLET TAKE ONE TABLET BY MOUTH ONCE DAILY ORAL TAKING LEVOTHYROXINE SODIUM 75 MCG TABLET TAKE ONE TABLET BY MOUTH @8AM ORALLY TAKING ONDANSETRON HCL 4 MG TABLET TAKE ONE TABLET BY MOUTH 1-2 TIMES A DAY BEFORE MEAL TAKE ONLY WHEN NAUSEOUS ORAL TAKING E-Z SPACER - DEVICE DIRECTED _ DAILY TAKING FISH OIL + D3 [id number] MG-UNIT CAPSULE 1 CAPSULE ORALLY BID OTC TAKING MULTIVITAMIN ADULT - TABLET DIRECTED ORALLY TAKING VITAMIN D 1000 UNIT TABLET 1 TABLET ORALLY ONCE A DAY TAKING ZANTAC 150 MG TABLET 2 TABLET AT BEDTIME ORALLY ONCE A DAY TAKING VENTOLIN HFA 108 (90 BASE) MCG/ACT AEROSOL SOLUTION INHALE TWO PUFFS BY MOUTH EVERY FOUR HOURS NEEDED INHALATION TAKING ZYRTEC ALLERGY 10 MG TABLET 1 TABLET ORALLY ONCE A DAY TAKING ATORVASTATIN CALCIUM 40 MG TABLET 1 TABLET ORALLY ONCE A DAY TAKING METOPROLOL TARTRATE 25 MG TABLET TAKE ONE TABLET BY MOUTH @8AM ORAL TAKING RANITIDINE HCL 150 MG TABLET TAKE TWO TABLETS BY MOUTH @8PM TAKING TIZANIDINE HCL 4 MG TABLET 1 TAB ORAL Q8H PRN PAIN #45 TAB SHOULD LAST 30 DAYS NOT-TAKING [id number] 50-325-40 MG TABLET TAKE 1 TO 2 TABLETS BY MOUTH TWICE DAILY NEEDED FOR SEVERE HEADACHES (MAX DAILY DOSE FOUR) ORAL NOT-TAKING DIVALPROEX SODIUM 250 MG TABLET DELAYED RELEASE TAKE THREE TABLETS BY MOUTH AT BEDTIME ORAL NOT-TAKING COLACE 100 MG CAPSULE 1 CAPSULE NEEDED ORALLY BID PRN NOT-TAKING SYNTHROID 75 MCG TABLET 1 TABLET ON AN EMPTY STOMACH IN THE MORNING ORALLY ONCE A DAY, NOTES: DUPLICATE NOT-TAKING AUGMENTIN 500-125 MG TABLET DIRECTED ORALLY , NOTES: DONE MEDICATION LIST REVIEWED AND RECONCILED WITH THE PATIENT PAST MEDICAL HISTORY DEPRESSION/ANXIETY- DR LAWLER. /THERAPIST Q2 WEEKS HYPERLIPIDEMIA GERD WITH BARRETTS: REPEAT EGD IN 07/2018 VITAMIN D DEF FRAN: FOLLOWING WITH PULMONOLOGY: COMPLIANT WITH CPAP CAD: BYPASS WITH AUTOLOGOUS VEIN: DR. VALENCIA AT [facility] ECHO 10/17/2016. HYPERTENSIVE HEART DISEASE CARDIAC PET NUCLEAR STRESS 09/26/2016. LVEF 66% BACK PAIN HISTORY OF CHICKENPOX, MEASLES, MUMPS LYTIC LESION ADJACENT TO RT LOBE LIVER APPEARING WITHIN GB FOSSA: NO SURGICAL INTERVENTION IDICATED: DR. DOMINIQUE THYROID U/S 09/16 DIFFUSE HETEROGENEITY 2 6MM NODULES AT [facility]. - DR HERMILA RAUSCH CARDIAC CATH WITH CABG 11/13/2016 SPECT STRESS LVEF 55%, NO EVIDENCE OF ISCHEMI, LEFT VENTRICULAR DIALATION WITH STRESS 08/26/2017 EUS HIDA SCAN FATTY LIVER WITH FATTY PANCREAS COLONOSCOPY 2017 UPPER ENDOSCOPY 2018 GALLBLADDER U/S 04/23/18: FATTY INFILTRATE OF LIVER AND EXOPHYTIC CYST ON THE RIGHT LOBE. NO HEPATIC SOLID MASS OR BILLARY DILATATION. GALLBLADDER WITHOUT ACUTE FINDINGS THYROID US WITH SMALL THYROID NODULE UNCHANGED ECHO: 12/20/17-NO SIGNIFICANT VALVULAR DISEASE, LEFT VENTRICULAR SYSTOLIC FUNCTION NORMAL, LEFT VENTRICULAR DIASTOLIC FUNCTION NORMAL, CONCENTRIC LEFT CENTRICULAR HYPERTROPHY MILD, HYPERTNESIVE HEART DISEASE MODERATE. MILDLY DILATED LEFT ATRIUM 4.3CM. MILDLY DILATED AORTIC ROOT AT 4.0CM. TRACE TO SMALL PERICARDAL EFFUSION NOTED POSTERIORLY IN LIMITED VIEWS, NO EVIDENCE OF CARDIAC TAMPONADE. LVEF 55-60% DERMATITIS HERPETIFORMIS ALLERGIES CODEINE PHOSPHATE (FOR ALLERGIES USE ONLY): NAUSEA/VOMITING - SIDE EFFECTS LATEX (FOR ALLERGY USE ONLY): RASH - ALLERGY ADHESIVE TAPE GLUTEN ALLERGY: RASH - ALLERGY SURGICAL HISTORY LEFT HAND, 5TH DIGIT, REMOVED TUMOR 1979 & 2016 TONSILLECTOMY CHILD COLONOSCOPY- INTERNAL HEMORRHOID, POLYP X 1- ADENOMATOUS 02/02/15 COLONOSCOPY - 2 TUBULAR ADENOMAS, MUCOSAL ULCERATION, MODERATE DIVERTICULOSIS IN THE SIGMOID COLON, EXTERNAL HEMORRHOIDS. SIGMOIDOSCOPY DUE 10/2018, REPEAT COLONOSCOPY 5 YRS 10/13/17 EGD- [facility] 02/02/15 HEMORRHOIDECTOMY 4-6 LEFT FOOT BUNIONECTOMY WITH FIRST METATARSAL OSTEOSTOMY-DR. IRIZARRY 03/31/16 CABG- 4 VESSEL AT [facility] 11/11/16 LEFT HAND CP SX, AND TENDON REMOVAL. [facility] 01/2018 UPPER ENDOSCOPIC ULTRASOUND WITH ANESTHESIA 07/2018 WIRES REMOVED FROM CHEST 09/29/2018 FAMILY HISTORY FATHER: 79 YRS, [place], HTN, DIAGNOSED WITH HEART DISEASE IN 62, HYPERTENSION MOTHER: ALIVE 66 YRS, HTN, HYPERTENSION, HEART DISEASE 1 BROTHER(S) , 1 SISTER(S) - HEALTHY. 3 HALF BROTHER, 1 HALF SISTER-HEALTHY, NO KNOWN FAMILY HISTORY OF ANY UROLOGICALLY RELATED DISEASES\\\\\\\\\\\\\\\/CANCERS. DENIES ANY FAMILY HX SKIN CANCER OR PANCREATIC CANCER. SOCIAL HISTORY GENERAL: TOBACCO USE ARE YOU A:FORMER SMOKER HOW LONG HAS IT BEEN SINCE YOU LAST SMOKED?5-10 YEARS HIV / HEP-C SCREENING HIV TEST OFFERED TO PATIENT:NO HEP-C TEST OFFERED TO PATIENT:NO HOUSING: RENTS APARTMENT. EDUCATION 3RD GRADE. STATES IS ABLE TO READ NEWSPAPER. WRITES BUT SPELLING IS NOT GOOD.. DIET: NO ADDED SALT, LOW FAT, LOW CHOLESTEROL. LANGUAGE BOTSWANAN. DOMESTIC VIOLENCE DO YOU FEEL SAFE IN YOUR ENVIRONMENT?YES BMI CARE GOAL FOLLOW-UP ABOVE NORMAL BMI FOLLOW-UPDIETARY MANAGEMENT EDUCATION, GUIDANCE, AND COUNSELING RECREATIONAL DRUG USE DRUG USE?NO EXERCISE: NO REGULAR EXERCISE. LEARNING BARRIERS / SPECIAL NEEDS CHANGE FROM LAST VISIT?NO BARRIERS TO LEARNING?YES COMMENTS LEARNING DISABILITY HEARING IMPAIRED?NO VISION IMPAIRED?YES COGNITIVELY IMPAIRED?NO :CORRECTIVE LENSES READINESS TO LEARN?YES LEARNING PREFERENCES?NO LEARNING CAPABILITIES PRESENT?YES EMOTIONAL BARRIERS?NO SPECIAL DEVICES?NO HEAD OF MAINTENANCE NEEDED?NO LUNG CANCER SCREENING SMOKING STATUS:FORMER SMOKER IS THE PATIENT BETWEEN THE AGE OF 57 AND 77?NO PAIN CLINIC PFS, CLERGY, PUBLIC HEALTH REFERRALS HAS THE PATIENT BEEN EDUCATED REGARDING HIS/HER PLAN OF CARE?YES HAS THE PATIENT BEEN EDUCATED REGARDING PAIN, THE RISK FOR PAIN, THE IMPORTANCE OF EFFECTIVE PAIN MANAGEMENT, AND THE PAIN ASSESSMENT PROCESS?YES LATEX QUESTIONNAIRE LATEX ALLERGY : HAVE YOU EVER DEVELOPED ANY TYPE OF REACTION AFTER HANDLING LATEX PRODUCTS SUCH RUBBER GLOVES, CONDOMS, DIAPHRAGMS, BALLOONS, SOCKS, OR UNDERWEAR?YES LATEX ALLERGY : HAVE YOU EVER DEVELOPED ANY TYPE OF REACTION DURING OR AFTER DENTAL APPOINTMENT, VAGINAL/RECTAL EXAMINATION, SURGICAL PROCEDURE, OR ANY OTHER EXPOSURE?NO - PLEASE INDICATE :RUBBER GLOVES, CONDOMS, BALLOONS RASH DATE ASKED : 12/30/2018 LATEX RISK : HAVE YOU EVER HAD ANY DIFFICULTY BREATHING OR HIVES AFTER EATING OR HANDLING ANY FRUITS, OR VEGETABLES; SUCH KIWI, BANANAS, STONE FRUITS, OR CHESTNUTSNO LATEX RISK : DO YOU HAVE A PREVIOUS PERSONAL HISTORY OF MORE THAN NINE SURGERIES, SPINA BIFIDA, OR REPEATED CATHERTIZATIONS? NO LATEX RISK : ARE YOU FREQUENTLY EXPOSED TO LATEX PRODUCTS IN YOUR OCCUPATION?NO CAFFEINE CAFFEINE USE?YES COFEE: 2 CUPS PER DAY ADVANCE DIRECTIVE ADVANCE DIRECTIVE DISCUSSED WITH PATIENT:YES PT DOES NOT HAVE ANY ADVANCED DIREDTIVES AND HE DECLINES INFORMATION ON HCP AT THIS TIME. [id number] STATUS: SINGLE. ALCOHOL SCREENING DID YOU HAVE A DRINK CONTAINING ALCOHOL IN THE PAST YEAR?NO POINTS0 INTERPRETATIONNEGATIVE OCCUPATION: DISABLED, SSI. SEXUAL HX HAD SEX IN THE LAST 12 MONTHS (VAGINAL, ORAL, OR ANAL)?: NO, HAVE YOU EVER HAD AN STD?: NO. REVIEWED WITH PT 05/14/18 0915 LAS09/01/18 1149 REVIEWED WITH PT. ADREVIEWED WITH PATIENT 01/13/19 1455 JSREVIEWED WITH PATIENT 02/02/19 1048 LAS. HOSPITALIZATION/MAJOR DIAGNOSTIC PROCEDURE [facility]- DEPRESSION/ANXIETY 14 YO HOUSE OF [facility]- [place]- DEPRESSION 18 YO FATHER SALINAS- [place]- LOCKED FACILTY- [place] OF DEPRESSION. [age]YO HEMORRHOIDECTOMY WITH REMOVAL OF A MIXED HEMORRHOIDAL BUNDLES AT THE LEFT LATERAL AND RIGHT ANTERIOR AND POSTERIOR POSITIONS. 01/11/2016 CABG: [facility] 11/11/16 [facility] 11/21 REVIEW OF SYSTEMS REVIEWED BY: PROVIDER: MINA SHAH . CONSTITUTIONAL: ANY CHANGE IN YOUR MEDICAL CONDITION? NO . CHILLS NO . FEVER NO . INFECTION: DO YOU HAVE NEW INFECTIONS? NO . DO YOU HAVE HISTORY OF MRSA? NO . MUSCULOSKELETAL: ANY NEW PATTERNS OF PAIN OR NUMBNESS? NO . GASTROENTEROLOGY: ANY NEW CHANGE IN BOWEL CONTROL? NO . GENITOURINARY: ANY NEW CHANGE IN BLADDER CONTROL? NO . IS THERE A CHANCE YOU COULD BE ? NO . HEMATOLOGY/LYMPH: DO YOU TAKE ANY BLOOD THINNERS? (FOR EXAMPLE- COUMADIN, PLAVIX, AGGRENOX, PLATEL, PRADAXA, OR XARELTO) NO . WHEN WAS YOUR LAST DOSE? DATE: TIME: . NEUROLOGY: HAVE YOU FALLEN IN THE PAST 12 MONTHS? NO . ANY NEW EXTREMITY NUMBNESS OR WEAKNESS? NO . CARDIOLOGY: DO YOU HAVE A PACEMAKER OR DEFIBRILLATOR? NO . RESPIRATORY: HAVE YOU BEEN SICK IN THE PAST WEEK? NO . FEVER NO . FLU LIKE SYMPTOMS? NO . COUGH NO . INTEGUMENTARY: DO YOU HAVE ANY RASHES OR OPEN SORES? NO . ALLERGIC/IMMUNO: ARE YOU ALLERGIC TO IV DYE? NO . ANY NEW ALLERGIES? NO . PSYCHIATRIC: DO YOU HAVE THOUGHTS OF HURTING YOURSELF OR SOMEONE ELSE? NO . ARE YOU ABUSED, NEGLECTED, OR IN AN UNSAFE ENVIRONMENT? NO . ENDOCRINOLOGY: ARE YOU DIABETIC? NO . OTHER: DO YOU NEED ANY PRESCRIPTIONS? NO . IF YES, PLEASE LIST: ____ . ANY NEW PROBLEMS WITH YOUR MEDICATIONS? NO . WHEN DID YOU LAST EAT? ____ . WHEN DID YOU LAST DRINK? ____ . WHAT DID YOU LAST DRINK? ____ . NAME OF PERSON DRIVING YOU HOME? ____ . DO YOU HAVE ANY OTHER QUESTIONS OR CONCERNS NO . VITAL SIGNS WT 328 LBS, HT 68 IN, BMI 49.87 INDEX, BP 135/70 MM HG, HR 66 /MIN, RR 18 /MIN, TEMP 97.5 F, OXYGEN SAT % 95, NA INITIALS MP 0944, REVIEWED BY: EM. EXAMINATION GENERAL EXAMINATION: LUNGS: LUNG SOUNDS ARE CLEAR . HEART: HEART RATE REGULAR . MUSCULOSKELETAL:*, MUSCLE STRENGTH TESTING 5/5 BILATERAL LOWER EXTREMITIES., ,PALPATION: POSITIVE FOR PAIN OVER L/S SPINE. POSITIVE FOR PAIN OVER L/S PARSPINALS.SPECIFIC POINT TENDERNESS OVER BILAT L4/5-L5/S1 LUMBR FACETS WITH FACET LOADING R>L. ASSESSMENTS SPONDYLOSIS OF LUMBAR REGION WITHOUT MYELOPATHY OR RADICULOPATHY - M47.816 (PRIMARY) TREATMENT SPONDYLOSIS OF LUMBAR REGION WITHOUT MYELOPATHY OR RADICULOPATHY NOTES: #2 DIAGNOSTIC L4/5-L5/S1 LFB RIGHT. PROCEDURE CODES FA211 ESTABILISHED PATIENT [facility] CHARGE DISPOSITION & COMMUNICATION FOLLOW UP POST (REASON: #2 DIAGNOSTIC L4/5-L5/S1 LFB) ELECTRONICALLY SIGNED BY PABLO KAM ON 03/07/2019 AT 08:24 AM EDT DISCLAIMER : THIS IS A VISIT SUMMARY EXTRACTED FROM THE [employer] CHART. IT IS NOT A COPY OF THE [employer] PROGRESS NOTE. GERALD
== END ==
LOC: M PAIN 09:45
PROVIDERS: ATTEND Nurse Practitioner Family
DX: M47.816 Spondylosis without myelopathy or radiculopathy, lumbar region (principal); E78.5 Hyperlipidemia, unspecified; K21.9 Gastro-esophageal reflux disease without esophagitis; K22.70 Barrett's esophagus without dysplasia; E55.9 Vitamin D deficiency, unspecified; E03.9 Hypothyroidism, unspecified; G47.33 Obstructive sleep apnea (adult) (pediatric); E66.01 Morbid (severe) obesity due to excess calories; Z68.42 Body mass index [BMI] 45.0-49.9, adult; Z79.899 Other long term (current) drug therapy; Z88.5 Allergy status to narcotic agent; Z88.8 Allergy status to other drugs, medicaments and biological substances; Z91.030 Bee allergy status; Z91.09 Other allergy status, other than to drugs and biological substances; Z87.891 Personal history of nicotine dependence; Z86.79 Personal history of other diseases of the circulatory system; Z86.59 Personal history of other mental and behavioral disorders

== ENCOUNTER 2019-03-14 12:06 | Emergency (ER) | payer MEDICAID, OTHER ==
[~2019-03-14] VITALS: Ht 172.7 cm; Wt 145.4 kg
[~2019-03-14 12:06] MED LIST changes: +MECL-68 PO; -METO25TA4; +METO25TA4 PO; -TOPI50TA9; +TOPI50TA9 PO; -TRIH2TAB3
[2019-03-14] MEDS ORDERED: KEFL500C17 PO (14:40)
[2019-03-14 14:48] VITALS: BP 95/54
[2019-03-25] MEDS ORDERED: LEVO75TA4 PO (11:06)
== END 2019-03-14 15:19 | disposition home or self-care (01) ==
LOC: M ED 14:54
DX: L03.113 Cellulitis of right upper limb (principal); E11.9 Type 2 diabetes mellitus without complications; I10 Essential (primary) hypertension; R25.1 Tremor, unspecified; K21.9 Gastro-esophageal reflux disease without esophagitis; H40.9 Unspecified glaucoma; Z87.442 Personal history of urinary calculi; Z79.899 Other long term (current) drug therapy; Z79.890 Hormone replacement therapy; Z79.82 Long term (current) use of aspirin; Z88.5 Allergy status to narcotic agent; Z91.040 Latex allergy status; Z87.891 Personal history of nicotine dependence

== ENCOUNTER → 2019-03-23 | Outpatient (CLI) | payer OTHER ==
[~2019-03-23] MED LIST changes: +BUPIVACAINE HCL 0.25% 30 ML VIAL As Ordered ONE; +CEPH500C; +HYDR-4571 PO; +ISOVUE-M 300 61% 15ML VIAL (Q9967) As Ordered ONE; +KEFL500C17 PO; +LIDOCAINE 1% SDV INJ 30 ML VIAL As Ordered ONE
--- NOTE | 2019-03-23 17:37 | REP ---
Limited lumbar spine: Single view. History: Right-sided lumbar facet injection procedure for pain. 9 seconds of fluoroscopy time is reported. Findings: A single last image hold fluoroscopically obtained spot radiograph of the lumbar spine documents various needle positions and contrast injections associated with lumbar facet injection procedure. Electronically Signed by Timothy Barragan MD 03/24/2019 10:02 A
--- NOTE | 2019-04-04 00:23 | ECWPNPC ---
PATIENT NAME: DEANNA AN : 1965 GENDER: MALE VISIT DATE: 03/23/2019 DISCHARGE DATE: 03/23/19 1345 VISIT LOCKED DATE TIME: PHYSICIAN: CATRACHITA WILLIAMSON MD RESOURCE: CATRACHITA WILLIAMSON MD REASON FOR APPOINTMENT 1. #2 DIAGNOSTIC L4/5-L5/S1 LFB HISTORY OF PRESENT ILLNESS HISTORY OF PRESENT ILLNESS: PAIN THE PATIENT DESCRIBES THE PAIN... FALL RISK SCREENING: SCREENING :NO FALLS REPORTED IN THE LAST YEAR CURRENT MEDICATIONS TAKING TRIHEXYPHENIDYL HCL 5 MG TABLET TAKE ONE TABLET BY MOUTH TWICE DAILY ORAL , NOTES: 03/23/19 AM TAKING BUSPIRONE HCL 10 MG TABLET TAKE ONE TABLET BY MOUTH @8AM AND TAKE ONE TABLET @8PM ORAL , NOTES: 03/23/19 AM TAKING GABAPENTIN 600 MG TABLET TAKE ONE TABLET BY MOUTH @8AM AND TAKE ONE TABLET @12PM AND TAKE ONE TABLET @8PM ORAL , NOTES: 03/22/19 TAKING AYR SALINE NASAL - GEL DIRECTED NASALLY TID, NOTES: 03/23/19 AM TAKING SUCRALFATE 1 GM TABLET TAKE ONE TABLET BY MOUTH FOUR TIMES DAILY AFTER MEALS ORAL , NOTES: 03/23/19 AM TAKING OMEPRAZOLE 40 MG CAPSULE DELAYED RELEASE TAKE ONE CAPSULE BY MOUTH @8AM ON AN EMPTY STOMACH ORAL , NOTES: 03/23/19 AM TAKING ESCITALOPRAM OXALATE 10 MG TABLET TAKE ONE TABLET BY MOUTH ONCE DAILY ORAL , NOTES: 03/23/19 AM TAKING LEVOTHYROXINE SODIUM 75 MCG TABLET TAKE ONE TABLET BY MOUTH @8AM ORALLY , NOTES: 03/23/19 AM TAKING ONDANSETRON HCL 4 MG TABLET TAKE ONE TABLET BY MOUTH 1-2 TIMES A DAY BEFORE MEAL TAKE ONLY WHEN NAUSEOUS ORAL , NOTES: 03/22/19 TAKING E-Z SPACER - DEVICE DIRECTED _ DAILY TAKING FISH OIL + D3 [id number] MG-UNIT CAPSULE 1 CAPSULE ORALLY BID OTC, NOTES: 03/23/19 AM TAKING MULTIVITAMIN ADULT - TABLET DIRECTED ORALLY , NOTES: 03/23/19 AM TAKING VITAMIN D 1000 UNIT TABLET 1 TABLET ORALLY ONCE A DAY, NOTES: 03/23/19 AM TAKING ZANTAC 150 MG TABLET 2 TABLET AT BEDTIME ORALLY ONCE A DAY, NOTES: 03/22/19 TAKING VENTOLIN HFA 108 (90 BASE) MCG/ACT AEROSOL SOLUTION INHALE TWO PUFFS BY MOUTH EVERY FOUR HOURS NEEDED INHALATION , NOTES: LAST WEEK TAKING METOPROLOL TARTRATE 25 MG TABLET TAKE ONE TABLET BY MOUTH @8AM ORAL , NOTES: 03/23/19 AM TAKING TIZANIDINE HCL 4 MG TABLET 1 TAB ORAL Q8H PRN PAIN #45 TAB SHOULD LAST 30 DAYS, NOTES: 03/22/19 TAKING MECLIZINE HCL 25 MG TABLET TAKE ONE TABLET BY MOUTH EVERY EIGHT HOURS ORAL , NOTES: NONE LATELY TAKING ATORVASTATIN CALCIUM 40 MG TABLET 1 TABLET ORALLY ONCE A DAY, NOTES: 03/23/19 AM TAKING BETAMETHASONE DIPROPIONATE AUG 0.05 % OINTMENT 1 APPLICATION TO AFFECTED AREA EXTERNALLY BID TO RASH ON ELBOW, NOTES: 03/22/19 TAKING DAPSONE 25 MG TABLET 1 TABLET ORALLY ONCE A DAY, NOTES: 03/23/19 NOT-TAKING RANITIDINE HCL 150 MG TABLET TAKE TWO TABLETS BY MOUTH @8PM , NOTES: DUPLICATE NOT-TAKING AIRBRXGFYU-VAKA-SUCADQSB 50-325-40 MG TABLET TAKE 1 TO 2 TABLETS BY MOUTH TWICE DAILY NEEDED FOR SEVERE HEADACHES (MAX DAILY DOSE FOUR) ORAL NOT-TAKING DIVALPROEX SODIUM 250 MG TABLET DELAYED RELEASE TAKE THREE TABLETS BY MOUTH AT BEDTIME ORAL NOT-TAKING COLACE 100 MG CAPSULE 1 CAPSULE NEEDED ORALLY BID PRN NOT-TAKING AUGMENTIN 500-125 MG TABLET DIRECTED ORALLY , NOTES: DONE DISCONTINUED RISPERIDONE 0.5 MG TABLET TAKE ONE TABLET BY MOUTH @8PM ORAL DISCONTINUED ZYRTEC ALLERGY 10 MG TABLET 1 TABLET ORALLY ONCE A DAY DISCONTINUED SYNTHROID 75 MCG TABLET 1 TABLET ON AN EMPTY STOMACH IN THE MORNING ORALLY ONCE A DAY, NOTES: DUPLICATE MEDICATION LIST REVIEWED AND RECONCILED WITH THE PATIENT PAST MEDICAL HISTORY DEPRESSION/ANXIETY- DR LAWLER. /THERAPIST Q2 WEEKS HYPERLIPIDEMIA GERD WITH BARRETTS: REPEAT EGD IN 07/2018 VITAMIN D DEF FRAN: FOLLOWING WITH PULMONOLOGY: COMPLIANT WITH CPAP CAD: BYPASS WITH AUTOLOGOUS VEIN: DR. VALENCIA AT [facility] ECHO 10/17/2016. HYPERTENSIVE HEART DISEASE CARDIAC PET NUCLEAR STRESS 09/26/2016. LVEF 66% BACK PAIN HISTORY OF CHICKENPOX, MEASLES, MUMPS LYTIC LESION ADJACENT TO RT LOBE LIVER APPEARING WITHIN GB FOSSA: NO SURGICAL INTERVENTION IDICATED: DR. DOMINIQUE THYROID U/S 09/16 DIFFUSE HETEROGENEITY 2 6MM NODULES AT [facility]. - DR HERMILA RAUSCH CARDIAC CATH WITH CABG 11/13/2016 SPECT STRESS LVEF 55%, NO EVIDENCE OF ISCHEMI, LEFT VENTRICULAR DIALATION WITH STRESS 08/26/2017 EUS HIDA SCAN FATTY LIVER WITH FATTY PANCREAS COLONOSCOPY 2017 UPPER ENDOSCOPY 2018 GALLBLADDER U/S 04/23/18: FATTY INFILTRATE OF LIVER AND EXOPHYTIC CYST ON THE RIGHT LOBE. NO HEPATIC SOLID MASS OR BILLARY DILATATION. GALLBLADDER WITHOUT ACUTE FINDINGS THYROID US WITH SMALL THYROID NODULE UNCHANGED ECHO: 12/20/17-NO SIGNIFICANT VALVULAR DISEASE, LEFT VENTRICULAR SYSTOLIC FUNCTION NORMAL, LEFT VENTRICULAR DIASTOLIC FUNCTION NORMAL, CONCENTRIC LEFT CENTRICULAR HYPERTROPHY MILD, HYPERTNESIVE HEART DISEASE MODERATE. MILDLY DILATED LEFT ATRIUM 4.3CM. MILDLY DILATED AORTIC ROOT AT 4.0CM. TRACE TO SMALL PERICARDAL EFFUSION NOTED POSTERIORLY IN LIMITED VIEWS, NO EVIDENCE OF CARDIAC TAMPONADE. LVEF 55-60% DERMATITIS HERPETIFORMIS ALLERGIES CODEINE PHOSPHATE (FOR ALLERGIES USE ONLY): NAUSEA/VOMITING - SIDE EFFECTS LATEX (FOR ALLERGY USE ONLY): RASH - ALLERGY ADHESIVE TAPE GLUTEN ALLERGY: RASH - ALLERGY SURGICAL HISTORY LEFT HAND, 5TH DIGIT, REMOVED TUMOR 1979 & 2016 TONSILLECTOMY CHILD COLONOSCOPY- INTERNAL HEMORRHOID, POLYP X 1- ADENOMATOUS 02/02/15 COLONOSCOPY - 2 TUBULAR ADENOMAS, MUCOSAL ULCERATION, MODERATE DIVERTICULOSIS IN THE SIGMOID COLON, EXTERNAL HEMORRHOIDS. SIGMOIDOSCOPY DUE 10/2018, REPEAT COLONOSCOPY 5 YRS 10/13/17 EGD- [facility] 02/02/15 HEMORRHOIDECTOMY 4-6-16 LEFT FOOT BUNIONECTOMY WITH FIRST METATARSAL OSTEOSTOMY-DR. IRIZARRY 03/31/16 CABG- [address] [facility] 11/11/16 LEFT HAND CP SX, AND TENDON REMOVAL. [facility] 01/2018 UPPER ENDOSCOPIC ULTRASOUND WITH ANESTHESIA 07/2018 WIRES REMOVED FROM CHEST 09/29/2018 FAMILY HISTORY FATHER: 79 YRS, [place], HTN, DIAGNOSED WITH HYPERTENSION, HEART DISEASE IN 62 MOTHER: ALIVE 66 YRS, HTN, HYPERTENSION, HEART DISEASE 1 BROTHER(S) , 1 SISTER(S) - HEALTHY. 3 HALF BROTHER, 1 HALF SISTER-HEALTHY, NO KNOWN FAMILY HISTORY OF ANY UROLOGICALLY RELATED DISEASES\\\\\\\\\\\\\\\/CANCERS. DENIES ANY FAMILY HX SKIN CANCER OR PANCREATIC CANCER. SOCIAL HISTORY GENERAL: TOBACCO USE ARE YOU A:FORMER SMOKER HOW LONG HAS IT BEEN SINCE YOU LAST SMOKED?5-10 YEARS HIV / HEP-C SCREENING HIV TEST OFFERED TO PATIENT:NO HEP-C TEST OFFERED TO PATIENT:NO HOUSING: RENTS APARTMENT. EDUCATION 3RD GRADE. STATES IS ABLE TO READ NEWSPAPER. WRITES BUT SPELLING IS NOT GOOD.. DIET: NO ADDED SALT, LOW FAT, LOW CHOLESTEROL. LANGUAGE TELUGU. DOMESTIC VIOLENCE DO YOU FEEL SAFE IN YOUR ENVIRONMENT?YES BMI CARE GOAL FOLLOW-UP ABOVE NORMAL BMI FOLLOW-UPDIETARY MANAGEMENT EDUCATION, GUIDANCE, AND COUNSELING RECREATIONAL DRUG USE DRUG USE?NO EXERCISE: NO REGULAR EXERCISE. LEARNING BARRIERS / SPECIAL NEEDS CHANGE FROM LAST VISIT?NO 03/07/19 BARRIERS TO LEARNING?YES COMMENTS LEARNING DISABILITY HEARING IMPAIRED?NO VISION IMPAIRED?YES COGNITIVELY IMPAIRED?NO :CORRECTIVE LENSES READINESS TO LEARN?YES LEARNING PREFERENCES?NO LEARNING CAPABILITIES PRESENT?YES EMOTIONAL BARRIERS?NO SPECIAL DEVICES?NO APPLICATION SUPPORT ANALYST NEEDED?NO LUNG CANCER SCREENING SMOKING STATUS:FORMER SMOKER IS THE PATIENT BETWEEN THE AGE OF 55 AND 77?NO PAIN CLINIC PFS, CLERGY, PUBLIC HEALTH REFERRALS HAS THE PATIENT BEEN EDUCATED REGARDING HIS/HER PLAN OF CARE?YES HAS THE PATIENT BEEN EDUCATED REGARDING PAIN, THE RISK FOR PAIN, THE IMPORTANCE OF EFFECTIVE PAIN MANAGEMENT, AND THE PAIN ASSESSMENT PROCESS?YES LATEX QUESTIONNAIRE LATEX ALLERGY : HAVE YOU EVER DEVELOPED ANY TYPE OF REACTION AFTER HANDLING LATEX PRODUCTS SUCH RUBBER GLOVES, CONDOMS, DIAPHRAGMS, BALLOONS, SOCKS, OR UNDERWEAR?YES LATEX ALLERGY : HAVE YOU EVER DEVELOPED ANY TYPE OF REACTION DURING OR AFTER DENTAL APPOINTMENT, VAGINAL/RECTAL EXAMINATION, SURGICAL PROCEDURE, OR ANY OTHER EXPOSURE?NO - PLEASE INDICATE :RUBBER GLOVES, CONDOMS, BALLOONS RASH DATE ASKED : 12/30/2018 LATEX RISK : HAVE YOU EVER HAD ANY DIFFICULTY BREATHING OR HIVES AFTER EATING OR HANDLING ANY FRUITS, OR VEGETABLES; SUCH KIWI, BANANAS, STONE FRUITS, OR CHESTNUTSNO LATEX RISK : DO YOU HAVE A PREVIOUS PERSONAL HISTORY OF MORE THAN NINE SURGERIES, SPINA BIFIDA, OR REPEATED CATHERTIZATIONS? NO LATEX RISK : ARE YOU FREQUENTLY EXPOSED TO LATEX PRODUCTS IN YOUR OCCUPATION?NO CAFFEINE CAFFEINE USE?YES COFEE: 2 CUPS PER DAY ADVANCE DIRECTIVE ADVANCE DIRECTIVE DISCUSSED WITH PATIENT:YES PT DOES NOT HAVE ANY ADVANCED DIREDTIVES AND HE DECLINES INFORMATION ON HCP AT THIS TIME. ORTHODOX [id number] [facility]VENT[facility] MARITAL STATUS: SINGLE. ALCOHOL SCREENING DID YOU HAVE A DRINK CONTAINING ALCOHOL IN THE PAST YEAR?NO POINTS0 INTERPRETATIONNEGATIVE OCCUPATION: DISABLED, SSI. SEXUAL HX HAD SEX IN THE LAST 12 MONTHS (VAGINAL, ORAL, OR ANAL)?: NO, HAVE YOU EVER HAD AN STD?: NO. REVIEWED WITH PT 05/14/18 0915 LAS09/01/18 1149 REVIEWED WITH PT. TAHMINAD WITH PATIENT 01/13/19 1455 JSREVIEWED WITH PATIENT 02/02/19 1048 LAS. HOSPITALIZATION/MAJOR DIAGNOSTIC PROCEDURE [facility]- DEPRESSION/ANXIETY 14 YO HOUSE OF KIRSTIN RAUSCH- [place]- DEPRESSION 18 YO FATHER RITA- INGRID- LOCKED FACILTY- [place] OF DEPRESSION. [age]YO HEMORRHOIDECTOMY WITH REMOVAL OF A MIXED HEMORRHOIDAL BUNDLES AT THE LEFT LATERAL AND RIGHT ANTERIOR AND POSTERIOR POSITIONS. 01/11/2016 CABG: [facility] REVIEW OF SYSTEMS REVIEWED BY: PROVIDER: . CONSTITUTIONAL: ANY CHANGE IN YOUR MEDICAL CONDITION? NO . CHILLS NO . FEVER NO . INFECTION: DO YOU HAVE NEW INFECTIONS? NO . DO YOU HAVE HISTORY OF MRSA? NO . MUSCULOSKELETAL: ANY NEW PATTERNS OF PAIN OR NUMBNESS? YES . GASTROENTEROLOGY: ANY NEW CHANGE IN BOWEL CONTROL? NO . GENITOURINARY: ANY NEW CHANGE IN BLADDER CONTROL? NO . IS THERE A CHANCE YOU COULD BE ? NO . HEMATOLOGY/LYMPH: DO YOU TAKE ANY BLOOD THINNERS? (FOR EXAMPLE- COUMADIN, PLAVIX, AGGRENOX, PLATEL, PRADAXA, OR XARELTO) NO . WHEN WAS YOUR LAST DOSE? DATE: TIME: . NEUROLOGY: HAVE YOU FALLEN IN THE PAST 12 MONTHS? NO . ANY NEW EXTREMITY NUMBNESS OR WEAKNESS? NO . CARDIOLOGY: DO YOU HAVE A PACEMAKER OR DEFIBRILLATOR? NO . RESPIRATORY: HAVE YOU BEEN SICK IN THE PAST WEEK? NO . FEVER NO . FLU LIKE SYMPTOMS? NO . COUGH NO . INTEGUMENTARY: DO YOU HAVE ANY RASHES OR OPEN SORES? NO . ALLERGIC/IMMUNO: ARE YOU ALLERGIC TO IV DYE? NO . ANY NEW ALLERGIES? NO . PSYCHIATRIC: DO YOU HAVE THOUGHTS OF HURTING YOURSELF OR SOMEONE ELSE? NO . ARE YOU ABUSED, NEGLECTED, OR IN AN UNSAFE ENVIRONMENT? NO . ENDOCRINOLOGY: ARE YOU DIABETIC? NO . OTHER: DO YOU NEED ANY PRESCRIPTIONS? NO . IF YES, PLEASE LIST: ____ . ANY NEW PROBLEMS WITH YOUR MEDICATIONS? NO . WHEN DID YOU LAST EAT? ____ . WHEN DID YOU LAST DRINK? ____ . WHAT DID YOU LAST DRINK? ____ . NAME OF PERSON DRIVING YOU HOME? ____ . DO YOU HAVE ANY OTHER QUESTIONS OR CONCERNS YES, RECEIVED SHINGLES VACCINE 2 WEEKS AGO, PT HAD REACTION, SITE GOT INFECTED, WAS PLACED ON ABX X 30 DAYS, STILL TAKING, NOT SURE NAME OF ABX . VITAL SIGNS WT 321.6 LBS, HT 68 IN, BMI 48.89 INDEX, BP 129/81 MM HG, HR 64 /MIN, RR 18 /MIN, TEMP 99 F, OXYGEN SAT % 94%, NA INITIALS SC 10:46, REVIEWED BY: EM. ASSESSMENTS SPONDYLOSIS OF LUMBAR REGION WITHOUT MYELOPATHY OR RADICULOPATHY - M47.816 (PRIMARY) SPONDYLOSIS OF LUMBOSACRAL REGION WITHOUT MYELOPATHY OR RADICULOPATHY - M47.817 TREATMENT SPONDYLOSIS OF LUMBOSACRAL REGION WITHOUT MYELOPATHY OR RADICULOPATHY SMC FACET BLOCK (PAIN)[id number] PROCEDURES PN LUMBAR FACET BLOCK DIAGNOSTIC PRE PROCEDURE DIAGNOSIS LUMBAR SPONDYLOSIS, LUMBOSACRAL SPONDYLOSIS POST PROCEDURE DIAGNOSIS LUMBAR SPONDYLOSIS, LUMBOSACRAL SPONDYLOSIS PROCEDURE RIGHT L4-L5 AND RIGHT L5-S1 FACET BLOCK DIAGNOSTIC NUMBER [address] CATRACHITA WILLIAMSON SUPERVISOR SHEET MANUFACTURING NONE ANESTHESIA LOCAL PRE PROCEDURE NOTE THE PATIENT WITH HISTORY OF CHRONIC LOW BACK PAIN. I EVALUATED THE PATIENT AND REVIEWED THE CHART. I WENT OVER THE RISKS, ALTERNATIVES, AND BENEFITS ASSOCIATED WITH THIS PROCEDURE. THE PATIENT WOULD LIKE TO PROCEED AND GAVE CONSENT TO PERFORM THE PROCEDURE. AGREED WITH THE PATIENT WE ARE DOING THIS PROCEDURE TO DETERMINE IF THE PATIENT IS A CANDIDATE FOR A RADIOFREQUENCY ABLATION OF THE FACETS JOINTS. THE PATIENT DENIES UNEXPLAINABLE WEIGHT LOSS, FEVER, CHILLS, OR NEW CHANGES IN URINARY OR BOWEL CONTROL DESCRIPTION OF PROCEDURE THE PATIENT WAS BROUGHT TO THE PROCEDURE ROOM AND PLACED IN THE PRONE POSITION. THE LUMBOSACRAL AREA WAS CLEANED WITH CHLORAPREP SOLUTION AND DRAPED ASEPTICALLY. THE PROCEDURE WAS DONE UNDER STERILE CONDITIONS. I CHECKED LATERALITY AND THE LEVEL WHERE THE PROCEDURE WAS GOING TO BE PERFORMED WITH THE PATIENT AND THE SUPPORTING STAFF AT THE MOMENT OF THE TIME OUT IN THE PROCEDURE ROOM. UNDER FLUOROSCOPIC GUIDANCE, TARGETS WERE SELECTED AT THE INTERSECTION OF THE RIGHT TRANSVERSE PROCESS OF L4, L5 AND ALA OF S1 WITH ITS RESPECTIVE SUPERIOR ARTICULAR PROCESS. LIDOCAINE WAS USED TO NUMB THE SKIN AND THE SUBCUTANEOUS TISSUE BELOW IT. SPINAL NEEDLE, 22-GAUGE WAS ADVANCED UNDER FLUOROSCOPIC GUIDANCE AND FOLLOWING PATIENT FEEDBACK UNTIL THE TARGETS WERE REACHED. POSITION OF THE NEEDLES WAS VERIFIED WITH AP AND LATERAL VIEWS. AFTER PROPER POSITION OF THE NEEDLES WAS ACHIEVED, ISOVUE-M DYE 30% 0.1 ML WAS INJECTED AT EACH SITE SHOWING ADEQUATE SPREAD OF THE DYE. THEN A SOLUTION OF 0.4 ML OF BUPIVACAINE 0.25% WAS INJECTED AT EACH SITE. THERE WAS NO EVIDENCE OF BLOOD, PARESTHESIA OR CEREBROSPINAL FLUID DURING THE PROCEDURE. THE PATIENT WAS SENT TO THE RECOVERY ROOM. THE PATIENT WAS MOVING THE EXTREMITIES AND DOING WELL. THERE WAS NO COMPLICATION DURING THE PROCEDURE. FLUOROSCOPY TIME WAS 9 SECONDS POST PROCEDURE NOTE THE PATIENT WILL DOCUMENT HIS PAIN LEVEL AND RESPONSE TO THIS PROCEDURE EVERY 30 MINUTES. THE PATIENT WILL BE SEEN IN A FOLLOW UP IN THE NEXT FEW WEEKS. FURTHER DETERMINATION FOR HIS CASE WILL BE DONE AT THE NEXT VISIT. INSTRUCTIONS WERE GIVEN, QUESTIONS WERE ANSWERED, AND THE PATIENT EXPRESSED UNDERSTANDING AND AGREED WITH THE PLAN. I, JAILYN RAE, DOCUMENTED THE ABOVE INFORMATION ACTING A SCRIBE FOR DR. WILLIAMSON. I HAVE REVIEWED THE ABOVE DOCUMENT, WRITTEN BY JAILYN SALINASIBJuan Manuel AND I VERIFY THAT IT IS ACCURATE. PROCEDURE CODES 6045F RADXPS IN END [id number] PXD 00602 INJ PARAVERT F JNT L/S 1 LEV, MODIFIERS: [place] [address] INJ PARAVERT F JNT L/S 2 LEV, MODIFIERS: RT DISPOSITION & COMMUNICATION FOLLOW UP 3 WEEKS ELECTRONICALLY SIGNED BY CATRACHITA WILLIAMSON MD, MD ON 04/03/2019 AT 07:42 PM EDT DISCLAIMER : THIS IS A VISIT SUMMARY EXTRACTED FROM THE [facility] CHART. IT IS NOT A COPY OF THE [employer] PROGRESS NOTE. MTDD
== END ==
LOC: M PAIN 10:45
PROVIDERS: ATTEND Anesthesiology
DX: M47.816 Spondylosis without myelopathy or radiculopathy, lumbar region (principal); M47.817 Spondylosis without myelopathy or radiculopathy, lumbosacral region; F32.9 Major depressive disorder, single episode, unspecified; F41.9 Anxiety disorder, unspecified; E78.5 Hyperlipidemia, unspecified; K21.9 Gastro-esophageal reflux disease without esophagitis; K22.70 Barrett's esophagus without dysplasia; E55.9 Vitamin D deficiency, unspecified; G47.33 Obstructive sleep apnea (adult) (pediatric); I25.10 Atherosclerotic heart disease of native coronary artery without angina pectoris; I11.9 Hypertensive heart disease without heart failure; K76.0 Fatty (change of) liver, not elsewhere classified; L13.0 Dermatitis herpetiformis; Z95.1 Presence of aortocoronary bypass graft; Z87.891 Personal history of nicotine dependence; Z79.899 Other long term (current) drug therapy; Z88.5 Allergy status to narcotic agent; Z91.048 Other nonmedicinal substance allergy status; Z91.018 Allergy to other foods
CPT/HCPCS: 64493; 64494; Q9967

== ENCOUNTER 2019-03-24 15:19 | Emergency (ER) | payer MEDICAID, OTHER ==
[~2019-03-24] VITALS: Ht 172.7 cm; Wt 145.0 kg
[~2019-03-24 15:19] MED LIST changes: -CEPH500C; -HYDR-4571 PO
[2019-03-24] MEDS ORDERED: CEPH500C (15:25)
[2019-03-24] MEDS ORDERED: KETOROLAC 30 MG/ML VIAL (J1885) IM ONE (16:00)
[2019-03-24] MEDS ORDERED: ONDANSETRON 4 MG ORAL DISINTEGRATING TAB (Q0162 PER 1MG) PO ONE (16:00)
[2019-03-24] MEDS ORDERED: ACETAMINOPHEN 500 MG TAB PO ONE (16:00)
[2019-03-24 16:41] VITALS: BP 113/57
[2019-03-25] MEDS ORDERED: LEVO75TA4 PO (11:06)
== END 2019-03-24 16:43 | disposition home or self-care (01) ==
LOC: M ED 15:19
DX: R51 Headache (principal); I10 Essential (primary) hypertension; E03.9 Hypothyroidism, unspecified; E11.9 Type 2 diabetes mellitus without complications; G47.30 Sleep apnea, unspecified; F41.0 Panic disorder [episodic paroxysmal anxiety]; F41.1 Generalized anxiety disorder; Z79.51 Long term (current) use of inhaled steroids; Z79.82 Long term (current) use of aspirin; Z79.891 Long term (current) use of opiate analgesic; Z79.899 Other long term (current) drug therapy; Z86.79 Personal history of other diseases of the circulatory system; Z91.018 Allergy to other foods; Z91.048 Other nonmedicinal substance allergy status
CPT/HCPCS: 96372; 99283; J1885; Q0162

== ENCOUNTER → 2019-03-24 | Outpatient (REF) | payer OTHER ==
[~2019-03-24] MED LIST changes: -BUPIVACAINE HCL 0.25% 30 ML VIAL As Ordered ONE; -ISOVUE-M 300 61% 15ML VIAL (Q9967) As Ordered ONE; -LIDOCAINE 1% SDV INJ 30 ML VIAL As Ordered ONE
[2019-03-24 09:55] LABS: HEMATOCRIT 48.9 % (42.0-52.0); HEMOGLOBIN 15.9 g/dl (13.5-17.5); MEAN CORPUSCULAR HEMOGLOBIN 31.6 pg (27.0-33.0); MEAN CORPUSCULAR HGB CONC 32.5 g/dl (32.0-36.5); MEAN CORPUSCULAR VOLUME 97.2 fl (80.0-96.0); PLATELET COUNT, AUTOMATED 224 10^3/uL (150-450); RED BLOOD COUNT 5.03 10^6/uL (4.30-6.10); WHITE BLOOD COUNT 6.5 10^3/uL (4.0-10.0)
[2019-03-24 10:23] LABS: CREATININE FOR GFR 1.47 MG/DL (0.70-1.30); GLOMERULAR FILTRATION RATE 53.8 (>56); POTASSIUM SERUM 4.1 MEQ/L (3.5-5.1)
== END ==
LOC: M SFHCPLAZ 07:55
PROVIDERS: ATTEND Family Medicine
DX: Z01.818 Encounter for other preprocedural examination (principal)

== ENCOUNTER 2019-03-30 08:18 | Day surgery (SDC) | payer OTHER ==
[~2019-03-30] VITALS: Ht 172.7 cm; Wt 144.2 kg
[~2019-03-30 08:18] MED LIST changes: +CEPH500C; +KETOROLAC 60 MG/2 ML VIAL (J1885) As Ordered ONE; +LIDOCAINE 2% INJ 100 MG/5 ML SDV (FOR ANES.) As Ordered ONE; +MIDAZOLAM INJ 2 MG/2 ML VIAL (J2250) As Ordered ONE; +ONDANSETRON 4MG/2ML VIAL (J2405) As Ordered ONE; +PROPOFOL 200 MG/20 ML VIAL As Ordered ONE; +fentaNYL 100 MCG/2 ML INJECTION (J3010) As Ordered ONE
[2019-03-30] MEDS ORDERED: ceFAZolin 2 GM/D5W 50 ML IV BAG (J0690 PER 500MG) As Ordered ONE (08:47)
[2019-03-30] MEDS ORDERED: BUPIVACAINE HCL 0.5% 10 ML VIAL As Ordered ONE (10:00)
[2019-03-30] MEDS ORDERED: dexameTHASONE 4 MG/ML 1ML VIAL (J1100) As Ordered ONE (10:00)
[2019-03-30] MEDS ORDERED: LIDOCAINE 2% MDV 20 ML VIAL As Ordered ONE (10:00)
[2019-03-30] MEDS ORDERED: HYDR-4571 PO (10:22)
[2019-03-30] MEDS ORDERED: oxyCODONE 5MG TAB As Ordered ONE (10:33)
[2019-03-30] MEDS ORDERED: fentaNYL 100 MCG/2 ML INJECTION (J3010) IV PRN (10:45)
[2019-03-30] MEDS ORDERED: oxyCODONE 5MG TAB PO PRN (10:45)
[2019-03-30] MEDS ORDERED: LR 1,000 ML IV SCH (10:45)
[2019-03-30 11:00] VITALS: BP 111/70
--- NOTE | 2019-03-30 12:20 | RO ---
DATE OF PROCEDURE: 03/30/2019 PREPROCEDURE DIAGNOSIS: Left 2nd hammertoe. POSTPROCEDURE DIAGNOSIS: Left 2nd hammertoe. PROCEDURE: Left 2nd hammertoe correction. SURGEON: Dylan Chand DPM SPECIAL EDUCATION AIDE: ANESTHESIA: Monitored anesthesia care. Preoperative injection of 10 mL of 1:1 mixture of 1% lidocaine and 0.5% Marcaine plain. ESTIMATED BLOOD LOSS: Minimal. MATERIALS: 4.5 K-wire, #3-0 Vicryl, #4-0 nylon. INJECTABLES: None. COMPLICATIONS: None. CONDITION: Stable. Rinku Whelan is a 53-year-old male who presents to [facility] with complaints of painful left 2nd toe. He presents today for surgical correction. The patient's site and side were identified and marked in preoperative holding area. Consent was reviewed and obtained. All risks, complications, and alternatives to the procedure were explained in detail. All questions were answered. DESCRIPTION OF PROCEDURE: The patient was brought to the operating room and placed on the operating room table in the supine position. Monitored anesthesia care was delivered by the anesthesia team. Preop injection of 10 mL of 1:1 mixture of 1% Lidocaine and 0.5% Marcaine plain were injected into the left foot. The left foot was prepped and draped in the usual sterile fashion. A tourniquet was applied to the left foot and inflated at 225 mmHg. A dorsal incision was drawn over the 2nd toe and carried through with a #15 blade. Dissection was carried until the extensor tendon was identified. This was transected at the proximal interphalangeal joint level. The tourniquet was accessed. The collateral ligaments were released exposing the proximal phalanx head. The proximal phalanx head and the base of the middle phalanx were resected with a sagittal saw. A 4.5 K-wire was thrown from the distal toe into the metatarsal head. Following this, the site was irrigated with normal saline. Extensor tendon was repaired with #3-0 Vicryl and skin closure with #4-0 nylon. Sterile dressings were applied. Tourniquet was deflated. The patient was brought to the postanesthesia care unit (PACU) awake, alert, stable and neurovascularly intact. He will be partial weightbearing. He will followup in office in 2 days.
== END 2019-03-30 11:28 | disposition home or self-care (01) ==
LOC: M SDC 08:18
PROVIDERS: ATTEND Podiatrist Foot & Ankle Surgery
DX: M20.42 Other hammer toe(s) (acquired), left foot (principal); I25.10 Atherosclerotic heart disease of native coronary artery without angina pectoris; Z95.1 Presence of aortocoronary bypass graft; I10 Essential (primary) hypertension; E78.5 Hyperlipidemia, unspecified; G47.30 Sleep apnea, unspecified; Z91.040 Latex allergy status; Z79.82 Long term (current) use of aspirin; K21.9 Gastro-esophageal reflux disease without esophagitis; K76.9 Liver disease, unspecified; F41.9 Anxiety disorder, unspecified; M41.9 Scoliosis, unspecified; Z87.891 Personal history of nicotine dependence; Z79.899 Other long term (current) drug therapy; F32.9 Major depressive disorder, single episode, unspecified
CPT/HCPCS: 28285; 88300; J0690; J1100; J1885; J2250; J2405; J3010

== ENCOUNTER 2019-04-15 14:08 | Emergency (ER) | payer OTHER ==
[~2019-04-15] VITALS: Ht 172.7 cm; Wt 142.3 kg
[~2019-04-15 14:08] MED LIST changes: +HYDR-4571 PO; -KETOROLAC 60 MG/2 ML VIAL (J1885) As Ordered ONE; -LIDOCAINE 2% INJ 100 MG/5 ML SDV (FOR ANES.) As Ordered ONE; -MIDAZOLAM INJ 2 MG/2 ML VIAL (J2250) As Ordered ONE; -ONDANSETRON 4MG/2ML VIAL (J2405) As Ordered ONE; -PROPOFOL 200 MG/20 ML VIAL As Ordered ONE; -fentaNYL 100 MCG/2 ML INJECTION (J3010) As Ordered ONE
[2019-04-15] MEDS ORDERED: OXYC1TAB23 PO (16:34)
[2019-04-15 17:37] VITALS: BP 114/74
== END 2019-04-15 17:35 | disposition home or self-care (01) ==
LOC: M ED 14:08
DX: Z48.89 Encounter for other specified surgical aftercare (principal); E11.9 Type 2 diabetes mellitus without complications; I11.0 Hypertensive heart disease with heart failure; I50.9 Heart failure, unspecified; G47.30 Sleep apnea, unspecified; F41.9 Anxiety disorder, unspecified; K21.9 Gastro-esophageal reflux disease without esophagitis; K90.0 Celiac disease; E03.9 Hypothyroidism, unspecified; Z79.899 Other long term (current) drug therapy; Z79.82 Long term (current) use of aspirin; Z88.5 Allergy status to narcotic agent; Z91.018 Allergy to other foods; Z91.040 Latex allergy status; Z91.048 Other nonmedicinal substance allergy status; Z87.891 Personal history of nicotine dependence

== ENCOUNTER → 2019-05-06 | Outpatient (REF) | payer OTHER ==
[2019-05-06 17:05] LABS: HEMATOCRIT 50.3 % (42.0-52.0); HEMOGLOBIN 16.4 g/dl (13.5-17.5); MEAN CORPUSCULAR HGB CONC 32.6 g/dl (32.0-36.5); MEAN CORPUSCULAR VOLUME 95.1 fl (80.0-96.0); PLATELET COUNT, AUTOMATED 232 10^3/uL (150-450); RED BLOOD COUNT 5.29 10^6/uL (4.30-6.10); WHITE BLOOD COUNT 7.4 10^3/uL (4.0-10.0)
[2019-05-06 17:08] LABS: APPEARANCE, URINE CLEAR (CLEAR); BACTERIA, URINE AUTO NEGATIVE (NEGATIVE); BILIRUBIN, URINE AUTO NEGATIVE (NEGATIVE); BLOOD, URINE BLOOD NEGATIVE (NEGATIVE); COLOR, URINE YELLOW (YELLOW); GLUCOSE, URINE (UA) AUTO NEGATIVE (NEGATIVE); KETONE, URINE AUTO NEGATIVE (NEGATIVE); LEUKOCYTE ESTERASE, URINE AUTO NEGATIVE (NEGATIVE); NITRITE, URINE AUTO NEGATIVE (NEGATIVE); PROTEIN, URINE AUTO NEGATIVE (NEGATIVE); RBC, URINE AUTO 2 /HPF (0-3); SPECIFIC GRAVITY URINE AUTO 1.018 (1.002-1.035); SQUAMOUS EPITHELIAL CELL UR AU 0 /HPF (0-6); UROBILINOGEN, URINE AUTO 0.2 mg/dL (0.0-2.0); WBC, URINE AUTO 1 /HPF (0-3)
[2019-05-06 17:47] LABS: ALBUMIN 3.9 GM/DL (3.2-5.2); BILIRUBIN,TOTAL 0.4 MG/DL (0.2-1.0); CALCIUM LEVEL 9.2 MG/DL (8.5-10.1); CREATININE FOR GFR 1.57 MG/DL (0.70-1.30); GLOMERULAR FILTRATION RATE 49.8 (>56); THYROID STIMULATING HORMONE 1.29 uIU/ML (0.358-3.740); TOTAL PROTEIN 7.4 GM/DL (6.4-8.2)
[2019-05-06 17:53] LABS: MALB URINE SIEMENS 12.5 MG/L; MAU/CREAT RATIO 4.6 MCG/MG (0.0-30.0)
== END ==
LOC: M SFHCPLAZ 14:48
PROVIDERS: ATTEND Nurse Practitioner Family
DX: Z51.81 Encounter for therapeutic drug level monitoring (principal); Z79.899 Other long term (current) drug therapy; I12.9 Hypertensive chronic kidney disease with stage 1 through stage 4 chronic kidney disease, or unspecified chronic kidney disease; E78.5 Hyperlipidemia, unspecified; N18.3 Chronic kidney disease, stage 3 (moderate); E03.9 Hypothyroidism, unspecified

== ENCOUNTER → 2019-05-16 | Outpatient (CLI) | payer OTHER ==
[~2019-05-16] MED LIST changes: -ARTI99.0 OU; +ARTIDRO2 OU; -INDO50CA11; +INDO50CA91
--- NOTE | 2019-06-01 23:59 | ECWPNPC ---
PATIENT NAME: DEANNA AN : 1965 GENDER: MALE VISIT DATE: 05/16/2019 DISCHARGE DATE: 05/16/19947 VISIT LOCKED DATE TIME: PHYSICIAN: MINA HAYWOOD RESOURCE: MINA HAYWOOD REASON FOR APPOINTMENT 1. POST PROC HISTORY OF PRESENT ILLNESS HISTORY OF PRESENT ILLNESS: HERE FOR POST PROCEDURE F/U.HAD RIGHT L4/5-L5/S1 LFBDX #2 ON 03/23/19.REPORTING >80% IMPROVEMENT FOR >24HRS POST PROCEDURE.DESCRIBES PAIN INTERMITTENT STABBING ACROSS LOW BACK.PAIN IS AGGREVATED WITH CERTAIN ACTIVIRIES.RATING PAIN VAS 1-3/10.DISCUSSED DIAGNOSTIC TEST #2 AND RF. PAIN THE PATIENT DESCRIBES THE PAIN... THE PATIENT DESCRIBES THE PAIN... FALL RISK SCREENING: SCREENING :NO FALLS REPORTED IN THE LAST YEAR CURRENT MEDICATIONS TAKING ESCITALOPRAM OXALATE 10 MG TABLET TAKE ONE TABLET BY MOUTH ONCE DAILY ORAL TAKING LEVOTHYROXINE SODIUM 75 MCG TABLET TAKE ONE TABLET BY MOUTH @8AM ORALLY TAKING METOPROLOL TARTRATE 25 MG TABLET 1/2 TAB ORAL DAILY, NOTES: 03/23/19 AM TAKING DAPSONE 25 MG TABLET 1 TABLET ORALLY ONCE A DAY, NOTES: 03/23/19 TAKING TRIHEXYPHENIDYL HCL 5 MG TABLET TAKE ONE TABLET BY MOUTH TWICE DAILY ORAL , NOTES: 03/23/19 AM TAKING BETAMETHASONE DIPROPIONATE AUG 0.05 % OINTMENT 1 APPLICATION TO AFFECTED AREA EXTERNALLY BID TO RASH ON ELBOW, NOTES: 03/22/19 TAKING MECLIZINE HCL 25 MG TABLET TAKE ONE TABLET BY MOUTH EVERY EIGHT HOURS ORAL , NOTES: NONE LATELY TAKING TIZANIDINE HCL 4 MG TABLET 1 TAB ORAL Q8H PRN PAIN #45 TAB SHOULD LAST 30 DAYS, NOTES: 03/22/19 TAKING VITAMIN D 1000 UNIT TABLET 1 TABLET ORALLY ONCE A DAY, NOTES: 03/23/19 AM TAKING MULTIVITAMIN ADULT - TABLET DIRECTED ORALLY , NOTES: 03/23/19 AM TAKING FISH OIL + D3 [id number] MG-UNIT CAPSULE 1 CAPSULE ORALLY BID OTC, NOTES: 03/23/19 AM TAKING E-Z SPACER - DEVICE DIRECTED _ DAILY TAKING VENTOLIN HFA 108 (90 BASE) MCG/ACT AEROSOL SOLUTION INHALE TWO PUFFS BY MOUTH EVERY FOUR HOURS NEEDED INHALATION , NOTES: LAST WEEK TAKING BUSPIRONE HCL 10 MG TABLET TAKE ONE TABLET BY MOUTH @8AM AND TAKE ONE TABLET @8PM ORAL , NOTES: 03/23/19 AM TAKING GABAPENTIN 600 MG TABLET TAKE ONE TABLET BY MOUTH @8AM AND TAKE ONE TABLET @12PM AND TAKE ONE TABLET @8PM ORAL , NOTES: 03/22/19 TAKING OMEPRAZOLE 40 MG CAPSULE DELAYED RELEASE TAKE ONE CAPSULE BY MOUTH @8AM ON AN EMPTY STOMACH ORAL TAKING SYNTHROID 75 MCG TABLET 1 TABLET ON AN EMPTY STOMACH IN THE MORNING ORALLY ONCE A DAY TAKING ZYRTEC ALLERGY 10 MG TABLET 1 TABLET ORALLY ONCE A DAY TAKING ATORVASTATIN CALCIUM 40 MG TABLET 1 TABLET ORALLY ONCE A DAY TAKING SUCRALFATE 1 GM TABLET TAKE ONE TABLET BY MOUTH FOUR TIMES DAILY AFTER MEALS ORAL , NOTES: 03/23/19 AM NOT-TAKING RANITIDINE HCL 150 MG TABLET TAKE TWO TABLETS BY MOUTH @8PM MEDICATION LIST REVIEWED AND RECONCILED WITH THE PATIENT PAST MEDICAL HISTORY DEPRESSION/ANXIETY- DR LAWLER. /THERAPIST Q2 WEEKS HYPERLIPIDEMIA GERD WITH BARRETTS: REPEAT EGD IN 07/2018 VITAMIN D DEF FRAN: FOLLOWING WITH PULMONOLOGY: COMPLIANT WITH CPAP CAD: BYPASS WITH AUTOLOGOUS VEIN: DR. VALENCIA AT [facility] ECHO 10/17/2016. HYPERTENSIVE HEART DISEASE CARDIAC PET NUCLEAR STRESS 09/26/2016. LVEF 66% BACK PAIN HISTORY OF CHICKENPOX, MEASLES, MUMPS LYTIC LESION ADJACENT TO RT LOBE LIVER APPEARING WITHIN GB FOSSA: NO SURGICAL INTERVENTION IDICATED: DR. DOMINIQUE THYROID U/S 09/16 DIFFUSE HETEROGENEITY 2 6MM NODULES AT [facility]. - DR HERMILA RAUSCH CARDIAC CATH WITH CABG 11/13/2016 SPECT STRESS LVEF 55%, NO EVIDENCE OF ISCHEMI, LEFT VENTRICULAR DIALATION WITH STRESS 08/26/2017 EUS (ENDOSCOPIC U/S-DR. LE)-NO PANCREATIC MASS OR COMMON BILE DUCT STRICTURE HIDA SCAN-UNREMARKABLE 2018, NORMAL GB AND EF, HYPERTONIC SPHINCTER OF ODDI FATTY LIVER WITH FATTY PANCREAS COLONOSCOPY 2017 UPPER ENDOSCOPY 2018 GALLBLADDER U/S 04/23/18: FATTY INFILTRATE OF LIVER AND EXOPHYTIC CYST ON THE RIGHT LOBE. NO HEPATIC SOLID MASS OR BILLARY DILATATION. GALLBLADDER WITHOUT ACUTE FINDINGS ECHO: 12/20/17-NO SIGNIFICANT VALVULAR DISEASE, LEFT VENTRICULAR SYSTOLIC FUNCTION NORMAL, LEFT VENTRICULAR DIASTOLIC FUNCTION NORMAL, CONCENTRIC LEFT CENTRICULAR HYPERTROPHY MILD, HYPERTNESIVE HEART DISEASE MODERATE. MILDLY DILATED LEFT ATRIUM 4.3CM. MILDLY DILATED AORTIC ROOT AT 4.0CM. TRACE TO SMALL PERICARDAL EFFUSION NOTED POSTERIORLY IN LIMITED VIEWS, NO EVIDENCE OF CARDIAC TAMPONADE. LVEF 55-60% DERMATITIS HERPETIFORMIS ALLERGIES CODEINE PHOSPHATE (FOR ALLERGIES USE ONLY): NAUSEA/VOMITING - SIDE EFFECTS LATEX (FOR ALLERGY USE ONLY): RASH - ALLERGY ADHESIVE TAPE GLUTEN ALLERGY: RASH - ALLERGY SURGICAL HISTORY LEFT HAND, 5TH DIGIT, REMOVED TUMOR 1979 & 2016 TONSILLECTOMY CHILD COLONOSCOPY- INTERNAL HEMORRHOID, POLYP X 1- ADENOMATOUS 02/02/15 COLONOSCOPY - 2 TUBULAR ADENOMAS, MUCOSAL ULCERATION, MODERATE DIVERTICULOSIS IN THE SIGMOID COLON, EXTERNAL HEMORRHOIDS. SIGMOIDOSCOPY DUE 10/2018, REPEAT COLONOSCOPY 5 YRS 10/13/17 EGD- [facility] 02/02/15 HEMORRHOIDECTOMY 4-03-20 LEFT FOOT BUNIONECTOMY WITH FIRST METATARSAL OSTEOSTOMY-DR. IRIZARRY 03/31/16 CABG- 4 VESSEL AT [facility] 11/11/16 LEFT HAND CP SX, AND TENDON REMOVAL. [facility] 01/2018 UPPER ENDOSCOPIC ULTRASOUND WITH ANESTHESIA 07/2018 WIRES REMOVED FROM CHEST 09/29/2018 HAMMER TOE, LEFT FOOT, DR. IRIZARRY 03/30/19 EGD-DR. BEGUM 01/2019 FAMILY HISTORY FATHER: 79 YRS, [place], HTN, DIAGNOSED WITH HYPERTENSION, HEART DISEASE IN 62 MOTHER: ALIVE 66 YRS, HTN, HYPERTENSION, HEART DISEASE 1 BROTHER(S) , 1 SISTER(S) - HEALTHY. 3 HALF BROTHER, 1 HALF SISTER-HEALTHY, NO KNOWN FAMILY HISTORY OF ANY UROLOGICALLY RELATED DISEASES CANCERS. DENIES ANY FAMILY HX SKIN CANCER OR PANCREATIC CANCER. SOCIAL HISTORY GENERAL: TOBACCO USE ARE YOU A:FORMER SMOKER HOW LONG HAS IT BEEN SINCE YOU LAST SMOKED?5-10 YEARS HIV / HEP-C SCREENING HIV TEST OFFERED TO PATIENT:NO HEP-C TEST OFFERED TO PATIENT:NO HOUSING: RENTS APARTMENT. EDUCATION 3RD GRADE. STATES IS ABLE TO READ NEWSPAPER. WRITES BUT SPELLING IS NOT GOOD.. DIET: NO ADDED SALT, LOW FAT, LOW CHOLESTEROL. LANGUAGE ITALIAN. DOMESTIC VIOLENCE DO YOU FEEL SAFE IN YOUR ENVIRONMENT?YES BMI CARE GOAL FOLLOW-UP ABOVE NORMAL BMI FOLLOW-UPDIETARY MANAGEMENT EDUCATION, GUIDANCE, AND COUNSELING RECREATIONAL DRUG USE DRUG USE?NO EXERCISE: NO REGULAR EXERCISE. LEARNING BARRIERS / SPECIAL NEEDS CHANGE FROM LAST VISIT?NO 03/07/19 BARRIERS TO LEARNING?YES COMMENTS LEARNING DISABILITY HEARING IMPAIRED?NO VISION IMPAIRED?YES COGNITIVELY IMPAIRED?NO :CORRECTIVE LENSES READINESS TO LEARN?YES LEARNING PREFERENCES?NO LEARNING CAPABILITIES PRESENT?YES EMOTIONAL BARRIERS?NO SPECIAL DEVICES?NO BLANKET INSPECTOR NEEDED?NO LUNG CANCER SCREENING SMOKING STATUS:FORMER SMOKER IS THE PATIENT BETWEEN THE AGE OF 55 AND 77?NO PAIN CLINIC PFS, CLERGY, PUBLIC HEALTH REFERRALS HAS THE PATIENT BEEN EDUCATED REGARDING HIS/HER PLAN OF CARE?YES HAS THE PATIENT BEEN EDUCATED REGARDING PAIN, THE RISK FOR PAIN, THE IMPORTANCE OF EFFECTIVE PAIN MANAGEMENT, AND THE PAIN ASSESSMENT PROCESS?YES LATEX QUESTIONNAIRE LATEX ALLERGY : HAVE YOU EVER DEVELOPED ANY TYPE OF REACTION AFTER HANDLING LATEX PRODUCTS SUCH RUBBER GLOVES, CONDOMS, DIAPHRAGMS, BALLOONS, SOCKS, OR UNDERWEAR?YES LATEX ALLERGY : HAVE YOU EVER DEVELOPED ANY TYPE OF REACTION DURING OR AFTER DENTAL APPOINTMENT, VAGINAL/RECTAL EXAMINATION, SURGICAL PROCEDURE, OR ANY OTHER EXPOSURE?NO - PLEASE INDICATE :RUBBER GLOVES, CONDOMS, BALLOONS RASH DATE ASKED : 12/30/2018 LATEX RISK : HAVE YOU EVER HAD ANY DIFFICULTY BREATHING OR HIVES AFTER EATING OR HANDLING ANY FRUITS, OR VEGETABLES; SUCH KIWI, BANANAS, STONE FRUITS, OR CHESTNUTSNO LATEX RISK : DO YOU HAVE A PREVIOUS PERSONAL HISTORY OF MORE THAN NINE SURGERIES, SPINA BIFIDA, OR REPEATED CATHERIZATIONS? NO LATEX RISK : ARE YOU FREQUENTLY EXPOSED TO LATEX PRODUCTS IN YOUR OCCUPATION?NO CAFFEINE CAFFEINE USE?YES COFEE: 2 CUPS PER DAY ADVANCE DIRECTIVE ADVANCE DIRECTIVE DISCUSSED WITH PATIENT:YES PT DOES NOT HAVE ANY ADVANCED DIREDTIVES AND HE DECLINES INFORMATION ON HCP AT THIS TIME. YARSANISM ADBISHBL40 DENOMINATIONAL MARITAL STATUS: SINGLE. ALCOHOL SCREENING DID YOU HAVE A DRINK CONTAINING ALCOHOL IN THE PAST YEAR?NO POINTS0 INTERPRETATIONNEGATIVE OCCUPATION: DISABLED, SSI. SEXUAL HX HAD SEX IN THE LAST 12 MONTHS (VAGINAL, ORAL, OR ANAL)?: NO, HAVE YOU EVER HAD AN STD?: NO. REVIEWED WITH PT 05/14/18 0915 LAS09/01/18 1149 REVIEWED WITH PT. ADREVIEWED WITH PATIENT 01/13/19 2885 JSREVIEWED WITH PATIENT 05/16/19 0855 LAS. HOSPITALIZATION/MAJOR DIAGNOSTIC PROCEDURE [facility]- DEPRESSION/ANXIETY 14 YO [facility] [place]- DEPRESSION 18 YO FATHER [facility]AC[facility]TY- [place] OF DEPRESSION. [age]YO HEMORRHOIDECTOMY WITH REMOVAL OF A MIXED HEMORRHOIDAL BUNDLES AT THE LEFT LATERAL AND RIGHT ANTERIOR AND POSTERIOR POSITIONS. 01/11/2016 CABG: [facility] 11/11/16 [facility] 11/21 REVIEW OF SYSTEMS REVIEWED BY: PROVIDER: MINA SHAH . CONSTITUTIONAL: ANY CHANGE IN YOUR MEDICAL CONDITION? NO . CHILLS NO . FEVER NO . INFECTION: DO YOU HAVE NEW INFECTIONS? NO . DO YOU HAVE HISTORY OF MRSA? NO . MUSCULOSKELETAL: ANY NEW PATTERNS OF PAIN OR NUMBNESS? YES . GASTROENTEROLOGY: ANY NEW CHANGE IN BOWEL CONTROL? NO . GENITOURINARY: ANY NEW CHANGE IN BLADDER CONTROL? NO . IS THERE A CHANCE YOU COULD BE ? NO . HEMATOLOGY/LYMPH: DO YOU TAKE ANY BLOOD THINNERS? (FOR EXAMPLE- COUMADIN, PLAVIX, AGGRENOX, PLATEL, PRADAXA, OR XARELTO) NO . WHEN WAS YOUR LAST DOSE? DATE: TIME: . NEUROLOGY: HAVE YOU FALLEN IN THE PAST 12 MONTHS? NO . ANY NEW EXTREMITY NUMBNESS OR WEAKNESS? YES . CARDIOLOGY: DO YOU HAVE A PACEMAKER OR DEFIBRILLATOR? NO . RESPIRATORY: HAVE YOU BEEN SICK IN THE PAST WEEK? NO . FEVER NO . FLU LIKE SYMPTOMS? NO . COUGH NO . INTEGUMENTARY: DO YOU HAVE ANY RASHES OR OPEN SORES? NO . ALLERGIC/IMMUNO: ARE YOU ALLERGIC TO IV DYE? NO . ANY NEW ALLERGIES? NO . PSYCHIATRIC: DO YOU HAVE THOUGHTS OF HURTING YOURSELF OR SOMEONE ELSE? NO . ARE YOU ABUSED, NEGLECTED, OR IN AN UNSAFE ENVIRONMENT? NO . ENDOCRINOLOGY: ARE YOU DIABETIC? NO . OTHER: DO YOU NEED ANY PRESCRIPTIONS? NO . IF YES, PLEASE LIST: ____ . ANY NEW PROBLEMS WITH YOUR MEDICATIONS? NO . WHEN DID YOU LAST EAT? ____ . WHEN DID YOU LAST DRINK? ____ . WHAT DID YOU LAST DRINK? ____ . NAME OF PERSON DRIVING YOU HOME? ____ . DO YOU HAVE ANY OTHER QUESTIONS OR CONCERNS NO . VITAL SIGNS WT 314.0 LBS, HT 68 IN, BMI 47.74 INDEX, BP 114/69 MM HG, HR 75 /MIN, RR 18 /MIN, TEMP 98.5 F, OXYGEN SAT % 97%, SAFE IN ENV? (Y/N) YES, NA INITIALS AW 0857, REVIEWED BY: MACI. EXAMINATION GENERAL EXAMINATION: LUNGS: LUNG SOUNDS ARE CLEAR . HEART: HEART RATE REGULAR . MUSCULOSKELETAL:*, MUSCLE STRENGTH TESTING 5/5 BILATERAL LOWER EXTREMITIES., ,PALPATION: POSITIVE FOR PAIN OVER L/S SPINE. POSITIVE FOR PAIN OVER L/S PARSPINALS.SPECIFIC POINT TENDERNESS OVER BILAT L4/5-L5/S1 LUMBR FACETS WITH FACET LOADING R>L. ASSESSMENTS SPONDYLOSIS OF LUMBAR REGION WITHOUT MYELOPATHY OR RADICULOPATHY - M47.816 (PRIMARY) TREATMENT SPONDYLOSIS OF LUMBAR REGION WITHOUT MYELOPATHY OR RADICULOPATHY NOTES: RF RIGHT L4/5-L5/[id number] BROCHURE PRINTED FOR PT AND REVIEWED, PT ACKNOWLEDGED UNDERSTANDING. PROCEDURE CODES FA211 ESTABILISHED PATIENT [facility] FACILITY CHARGE DISPOSITION & COMMUNICATION FOLLOW UP POST (REASON: RF RIGHT L4/5-L5/S1) ELECTRONICALLY SIGNED BY PABLO KAM ON 06/01/2019 AT 08:21 AM EDT DISCLAIMER : THIS IS A VISIT SUMMARY EXTRACTED FROM THE [employer] CHART. IT IS NOT A COPY OF THE [employer] PROGRESS NOTE. GERALD
== END ==
LOC: M PAIN 08:45
PROVIDERS: ATTEND Nurse Practitioner Family
DX: M47.816 Spondylosis without myelopathy or radiculopathy, lumbar region (principal); Z86.59 Personal history of other mental and behavioral disorders; E78.5 Hyperlipidemia, unspecified; K21.9 Gastro-esophageal reflux disease without esophagitis; E55.9 Vitamin D deficiency, unspecified; G47.33 Obstructive sleep apnea (adult) (pediatric); Z87.891 Personal history of nicotine dependence; Z88.5 Allergy status to narcotic agent; Z91.018 Allergy to other foods; Z91.040 Latex allergy status; Z91.09 Other allergy status, other than to drugs and biological substances; E66.01 Morbid (severe) obesity due to excess calories; Z68.42 Body mass index [BMI] 45.0-49.9, adult; Z79.899 Other long term (current) drug therapy

== ENCOUNTER 2019-05-17 10:55 | Emergency (ER) | payer OTHER ==
[~2019-05-17] VITALS: Ht 172.7 cm; Wt 141.6 kg
[~2019-05-17 10:55] MED LIST changes: -MECL-68 PO; +MECL1TAB31 PO; -OMEP40CA2 PO; +OMEP40CA97 PO
[2019-05-17] MEDS ORDERED: NS 1,000 ML IV ONE (11:45)
[2019-05-17] MEDS ORDERED: SUCRALFATE 1 GM TAB PO ONE (11:45)
[2019-05-17 12:09] LABS: BASO % 0.6 % (0.0-1.0); EOS # 0.1 10^3/uL (0.0-0.50); EOS % 0.9 % (0.0-3.0); HEMATOCRIT 46.1 % (42.0-52.0); HEMOGLOBIN 15.4 g/dl (13.5-17.5); LYMPH # 1.7 10^3/uL (1.5-4.5); LYMPH % 23.8 % (24.0-44.0); MEAN CORPUSCULAR HEMOGLOBIN 30.9 pg (27.0-33.0); MEAN CORPUSCULAR HGB CONC 33.4 g/dl (32.0-36.5); MEAN CORPUSCULAR VOLUME 92.6 fl (80.0-96.0); MONO # 1.1 10^3/uL (0.0-0.8); MONO % 15.6 % (0.0-5.0); NEUTROPHILS # 4.1 10^3/uL (1.8-7.7); NEUTROPHILS % 58.7 % (36.0-66.0); PLATELET COUNT, AUTOMATED 226 10^3/uL (150-450); RED BLOOD COUNT 4.98 10^6/uL (4.30-6.10)
[2019-05-17 12:31] LABS: ALBUMIN 3.5 GM/DL (3.2-5.2); ALT/SGPT 39 U/L (12-78); BILIRUBIN,DIRECT < 0.1 MG/DL (0.0-0.2); BILIRUBIN,TOTAL 0.2 MG/DL (0.2-1.0); LIPASE 139 U/L (73-393); TOTAL PROTEIN 6.7 GM/DL (6.4-8.2)
[2019-05-17 13:38] VITALS: BP 117/70
--- NOTE | 2019-05-18 07:15 | ECGEPIP ---
[facility] - ED Test Date: 2019-05-17 Pat Name: DEANNA AN Department: Room: - Gender: Male Location Manager: : 1965 Requested By: Phuc Benedict Order Number: [id number] Reading MD: Purvi Cox Measurements Intervals Honor Rate: 54 P: 1 ND: 150 QRS: -7 QRSD: 86 T: 37 QT: 425 QTc: 404 Interpretive Statements SINUS BRADYCARDIA NSTTW abnormalities DECREASED RATE 02/16/19 Electronically Signed on 05-18-2019 7:15:31 EDT by Purvi Cox
[2019-08-17] MEDS ORDERED: KETO10TAB PO (11:45)
== END 2019-05-17 13:40 | disposition home or self-care (01) ==
LOC: M ED 10:55
DX: K29.70 Gastritis, unspecified, without bleeding (principal); E11.9 Type 2 diabetes mellitus without complications; I10 Essential (primary) hypertension; E78.5 Hyperlipidemia, unspecified; K21.9 Gastro-esophageal reflux disease without esophagitis; F41.9 Anxiety disorder, unspecified; H40.9 Unspecified glaucoma; G47.33 Obstructive sleep apnea (adult) (pediatric); K76.89 Other specified diseases of liver; Z79.899 Other long term (current) drug therapy; Z79.890 Hormone replacement therapy; Z79.82 Long term (current) use of aspirin; Z88.5 Allergy status to narcotic agent; Z91.018 Allergy to other foods; Z91.040 Latex allergy status; Z91.048 Other nonmedicinal substance allergy status; Z87.891 Personal history of nicotine dependence

== ENCOUNTER → 2019-05-26 | Outpatient (REF) | payer OTHER, MEDICAID ==
[~2019-05-26] MED LIST changes: +ACET-837 PO; +FAMO1TAB11 PO; +HYDR1CRE2 TOP; +MEDR4PAK PO; +SODIGEL TOP; +SUCR1TAB56 PO; +TRAM50TA2 PO
== END ==
LOC: M SFHCPLAZ 18:09
PROVIDERS: ATTEND Dermatology
DX: L92.0 Granuloma annulare (principal)

== ENCOUNTER 2019-06-03 06:33 | Emergency (ER) | payer MEDICAID, OTHER ==
[~2019-06-03] VITALS: Ht 172.7 cm; Wt 142.7 kg
[~2019-06-03 06:33] MED LIST changes: -ACET-837 PO; -FAMO1TAB11 PO; -HYDR1CRE2 TOP; +MECL-68 PO; -MECL1TAB31 PO; -MEDR4PAK PO; +OMEP40CA2 PO; -OMEP40CA97 PO; -SODIGEL TOP; -SUCR1TAB56 PO; -TRAM50TA2 PO
[2019-06-03] MEDS ORDERED: ASPIRIN 325 MG TAB PO ONE (07:00)
[2019-06-03 07:02] LABS: BASO % 0.6 % (0.0-1.0); EOS # 0.1 10^3/uL (0.0-0.50); EOS % 1.1 % (0.0-3.0); HEMATOCRIT 49.8 % (42.0-52.0); HEMOGLOBIN 16.6 g/dl (13.5-17.5); LYMPH # 1.8 10^3/uL (1.5-4.5); LYMPH % 28.2 % (24.0-44.0); MEAN CORPUSCULAR HEMOGLOBIN 32.3 pg (27.0-33.0); MEAN CORPUSCULAR HGB CONC 33.3 g/dl (32.0-36.5); MEAN CORPUSCULAR VOLUME 96.9 fl (80.0-96.0); MONO # 0.7 10^3/uL (0.0-0.8); MONO % 11.8 % (0.0-5.0); NEUTROPHILS # 3.6 10^3/uL (1.8-7.7); NEUTROPHILS % 57.5 % (36.0-66.0); PLATELET COUNT, AUTOMATED 210 10^3/uL (150-450); RED BLOOD COUNT 5.14 10^6/uL (4.30-6.10); WHITE BLOOD COUNT 6.3 10^3/uL (4.0-10.0)
[2019-06-03 07:13] LABS: INR 1.01; PARTIAL THROMBOPLASTIN TIME 25.4 SECONDS (25.0-38.4)
[2019-06-03 07:27] LABS: BLOOD UREA NITROGEN 12 MG/DL (7-18); CALCIUM LEVEL 8.9 MG/DL (8.5-10.1); CARBON DIOXIDE LEVEL 29 MEQ/L (21-32); CHLORIDE LEVEL 107 MEQ/L (98-107); CK-MB VALUE MASS 2.1 NG/ML (<3.6); CPK CREATINE PHOSPHOKINASE 186 U/L (39-308); CREATININE FOR GFR 1.31 MG/DL (0.70-1.30); GLOMERULAR FILTRATION RATE > 60.0 (>56); GLUCOSE, FASTING 101 MG/DL (70-100); MB/CK RELATIVE INDEX 1.13 (< OR =4); NT-PRO BNP 66 PG/ML (<125); POTASSIUM SERUM 4.5 MEQ/L (3.5-5.1); SODIUM LEVEL 143 MEQ/L (136-145); TROPONIN I < 0.02 NG/ML (< 0.10)
--- NOTE | 2019-06-03 08:24 | REP ---
PA and lateral chest: Comparison is 12/31/2018. The lung johnson are clear. The there is slightly increased in density in the lower lung johnson likely from superimposed chest wall soft tissues. The cardiac size is normal. The uriel, mediastinum, and skeletal structures are unremarkable. Impression: Negative PA and lateral chest. There is no interval change. Electronically Signed by Joaquin Lundy MD 06/03/2019 08:15 A
--- NOTE | 2019-06-03 08:27 | ECGEPIP ---
[facility] - ED Test Date: 2019-06-03 Pat Name: DEANNA AN Department: Room: - Gender: Male Relations Director: KG : 1965 Requested By: MEÑO MATHEWS Order Number: [id number] Reading MD: Phuc Rosen Measurements Intervals [place] Rate: 56 P: -3 OR: 153 QRS: -14 QRSD: 85 T: 47 QT: 429 QTc: 415 Interpretive Statements SINUS BRADYCARDIA LOW QRS VOLTAGE IN PRECORDIAL LEADS NSTTW ABNORMALITIES SIMILAR TO 05/17/19 Electronically Signed on 06-03-2019 8:27:14 EDT by Phuc Rosen
[2019-06-03 09:45] LABS: CPK CREATINE PHOSPHOKINASE 174 U/L (39-308); MB/CK RELATIVE INDEX 1.15 (< OR =4); TROPONIN I < 0.02 NG/ML (< 0.10)
[2019-06-03] MEDS ORDERED: SUCRALFATE 1 GM TAB PO ONE (13:00)
[2019-06-03 13:50] LABS: CK-MB VALUE MASS 2.5 NG/ML (<3.6); CPK CREATINE PHOSPHOKINASE 201 U/L (39-308); MB/CK RELATIVE INDEX 1.24 (< OR =4); TROPONIN I < 0.02 NG/ML (< 0.10)
[2019-06-03 14:46] VITALS: BP 112/77
--- NOTE | 2019-06-03 19:27 | ECGEPIP ---
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
--- NOTE | 2019-06-03 19:30 | ECGEPIP ---
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
== END 2019-06-03 15:36 | disposition home or self-care (01) ==
LOC: M ED 06:33
DX: R07.9 Chest pain, unspecified (principal); I10 Essential (primary) hypertension; F33.9 Major depressive disorder, recurrent, unspecified; K21.9 Gastro-esophageal reflux disease without esophagitis; E03.9 Hypothyroidism, unspecified; G47.33 Obstructive sleep apnea (adult) (pediatric); E78.5 Hyperlipidemia, unspecified; I25.10 Atherosclerotic heart disease of native coronary artery without angina pectoris; Z95.1 Presence of aortocoronary bypass graft; Z79.899 Other long term (current) drug therapy; Z79.890 Hormone replacement therapy; Z79.82 Long term (current) use of aspirin; Z88.5 Allergy status to narcotic agent; Z91.018 Allergy to other foods; Z91.040 Latex allergy status; Z91.048 Other nonmedicinal substance allergy status; Z87.891 Personal history of nicotine dependence

== ENCOUNTER → 2019-06-13 | Outpatient (CLI) | payer OTHER ==
--- NOTE | 2019-06-27 23:58 | ECWPNPC ---
PATIENT NAME: DEANNA AN : 1965 GENDER: MALE VISIT DATE: 06/13/2019 DISCHARGE DATE: 06/13/19 1524 VISIT LOCKED DATE TIME: PHYSICIAN: MINA HAYWOOD RESOURCE: MINA HAYWOOD REASON FOR APPOINTMENT 1. INCREASED PAIN PER MINA HISTORY OF PRESENT ILLNESS HISTORY OF PRESENT ILLNESS: HERE FOR F/U ON AN URGENT BASIS FOR ACUTE FLARE UP OF LEFT SCIATIC PAIN.IS SCHEDULED FOR RIGHT RF.RATING PAIN VAS 8/10.DISCUSSED TREATMENT OPTIONS. PAIN THE PATIENT DESCRIBES THE PAIN... FALL RISK SCREENING: SCREENING :NO FALLS REPORTED IN THE LAST YEAR CURRENT MEDICATIONS TAKING BETAMETHASONE DIPROPIONATE AUG 0.05 % OINTMENT 1 APPLICATION TO AFFECTED AREA EXTERNALLY BID TO RASH ON ELBOW TAKING DAPSONE 25 MG TABLET 1 TABLET ORALLY ONCE A DAY TAKING BUSPIRONE HCL 10 MG TABLET TAKE ONE TABLET BY MOUTH @8AM AND TAKE ONE TABLET @8PM ORAL TAKING ESCITALOPRAM OXALATE 10 MG TABLET TAKE ONE TABLET BY MOUTH ONCE DAILY ORAL TAKING FISH OIL + D3 [id number] MG-UNIT CAPSULE 1 CAPSULE ORALLY BID OTC TAKING GABAPENTIN 600 MG TABLET TAKE ONE TABLET BY MOUTH @8AM AND TAKE ONE TABLET @12PM AND TAKE ONE TABLET @8PM ORAL TAKING LEVOTHYROXINE SODIUM 75 MCG TABLET TAKE ONE TABLET BY MOUTH @8AM ORALLY TAKING MECLIZINE HCL 25 MG TABLET TAKE ONE TABLET BY MOUTH EVERY EIGHT HOURS ORAL TAKING MULTIVITAMIN ADULT - TABLET DIRECTED ORALLY , NOTES: 03/23/19 AM TAKING OMEPRAZOLE 40 MG CAPSULE DELAYED RELEASE TAKE ONE CAPSULE BY MOUTH @8AM ON AN EMPTY STOMACH ORAL TAKING RANITIDINE HCL 150 MG TABLET TAKE TWO TABLETS BY MOUTH @8PM TAKING SYNTHROID 75 MCG TABLET 1 TABLET ON AN EMPTY STOMACH IN THE MORNING ORALLY ONCE A DAY TAKING TIZANIDINE HCL 4 MG TABLET 1 TAB ORAL Q8H PRN PAIN #45 TAB SHOULD LAST 30 DAYS TAKING TRIHEXYPHENIDYL HCL 5 MG TABLET TAKE ONE TABLET BY MOUTH TWICE DAILY ORAL TAKING VENTOLIN HFA 108 (90 BASE) MCG/ACT AEROSOL SOLUTION INHALE TWO PUFFS BY MOUTH EVERY FOUR HOURS NEEDED INHALATION TAKING VITAMIN D 1000 UNIT TABLET 1 TABLET ORALLY ONCE A DAY TAKING ZYRTEC ALLERGY 10 MG TABLET 1 TABLET ORALLY ONCE A DAY TAKING SUCRALFATE 1 GM TABLET TAKE ONE TABLET BY MOUTH FOUR TIMES DAILY AFTER MEALS ORAL TAKING METOPROLOL TARTRATE 25 MG TABLET 1/2 TAB ORAL DAILY TAKING ATORVASTATIN CALCIUM 40 MG TABLET 1 TABLET ORALLY ONCE A DAY MEDICATION LIST REVIEWED AND RECONCILED WITH THE PATIENT PAST MEDICAL HISTORY DEPRESSION/ANXIETY- DR LAWLER. /THERAPIST Q2 WEEKS HYPERLIPIDEMIA GERD WITH BARRETTS: REPEAT EGD IN 07/2018 VITAMIN D DEF FRAN: FOLLOWING WITH PULMONOLOGY: COMPLIANT WITH CPAP CAD: BYPASS WITH AUTOLOGOUS VEIN: DR. VALENCIA AT [facility] ECHO 10/17/2016. HYPERTENSIVE HEART DISEASE CARDIAC PET NUCLEAR STRESS 09/26/2016. LVEF 66% BACK PAIN HISTORY OF CHICKENPOX, MEASLES, MUMPS LYTIC LESION ADJACENT TO RT LOBE LIVER APPEARING WITHIN GB FOSSA: NO SURGICAL INTERVENTION IDICATED: DR. DOMINIQUE THYROID U/S 09/16 DIFFUSE HETEROGENEITY 2 6MM NODULES AT [facility]. - DR HERMILA RAUSCH CARDIAC CATH WITH CABG 11/13/2016 SPECT STRESS LVEF 55%, NO EVIDENCE OF ISCHEMI, LEFT VENTRICULAR DIALATION WITH STRESS 08/26/2017 EUS (ENDOSCOPIC U/S-DR. LE)-NO PANCREATIC MASS OR COMMON BILE DUCT STRICTURE HIDA SCAN-UNREMARKABLE 2017, NORMAL GB AND EF, HYPERTONIC SPHINCTER OF ODDI FATTY LIVER WITH FATTY PANCREAS COLONOSCOPY 2017 UPPER ENDOSCOPY 2018 GALLBLADDER U/S 04/23/18: FATTY INFILTRATE OF LIVER AND EXOPHYTIC CYST ON THE RIGHT LOBE. NO HEPATIC SOLID MASS OR BILLARY DILATATION. GALLBLADDER WITHOUT ACUTE FINDINGS ECHO: 12/20/17-NO SIGNIFICANT VALVULAR DISEASE, LEFT VENTRICULAR SYSTOLIC FUNCTION NORMAL, LEFT VENTRICULAR DIASTOLIC FUNCTION NORMAL, CONCENTRIC LEFT CENTRICULAR HYPERTROPHY MILD, HYPERTNESIVE HEART DISEASE MODERATE. MILDLY DILATED LEFT ATRIUM 4.3CM. MILDLY DILATED AORTIC ROOT AT 4.0CM. TRACE TO SMALL PERICARDAL EFFUSION NOTED POSTERIORLY IN LIMITED VIEWS, NO EVIDENCE OF CARDIAC TAMPONADE. LVEF 55-60% DERMATITIS HERPETIFORMIS ALLERGIES CODEINE PHOSPHATE (FOR ALLERGIES USE ONLY): NAUSEA/VOMITING - SIDE EFFECTS LATEX (FOR ALLERGY USE ONLY): RASH - ALLERGY ADHESIVE TAPE GLUTEN ALLERGY: RASH - ALLERGY SURGICAL HISTORY LEFT HAND, 5TH DIGIT, REMOVED TUMOR 1979 & 2016 TONSILLECTOMY CHILD COLONOSCOPY- INTERNAL HEMORRHOID, POLYP X 1- ADENOMATOUS 02/02/15 COLONOSCOPY - 2 TUBULAR ADENOMAS, MUCOSAL ULCERATION, MODERATE DIVERTICULOSIS IN THE SIGMOID COLON, EXTERNAL HEMORRHOIDS. SIGMOIDOSCOPY DUE 10/2018, REPEAT COLONOSCOPY 5 YRS 10/13/17 EGD- [facility] 02/02/15 HEMORRHOIDECTOMY 4-6-16 LEFT FOOT BUNIONECTOMY WITH FIRST METATARSAL OSTEOSTOMY-DR. IRIZARRY 03/31/16 CABG- 4 VESSEL AT [facility] 11/11/16 LEFT HAND CP SX, AND TENDON REMOVAL. [facility] 01/2018 UPPER ENDOSCOPIC ULTRASOUND WITH ANESTHESIA 07/2018 WIRES REMOVED FROM CHEST 09/29/2018 HAMMER TOE, LEFT FOOT, DR. IRIZARRY 03/30/19 EGD-DR. BEGUM 01/2019 YANG 03/2019 FAMILY HISTORY FATHER: 79 YRS, [place], HTN, DIAGNOSED WITH HYPERTENSION, UNSPECIFIED HEART DISEASE IN 62 MOTHER: ALIVE 66 YRS, HTN, HYPERTENSION, UNSPECIFIED HEART DISEASE 1 BROTHER(S) , 1 SISTER(S) - HEALTHY. 3 HALF BROTHER, 1 HALF SISTER-HEALTHY, NO KNOWN FAMILY HISTORY OF ANY UROLOGICALLY RELATED DISEASES CANCERS. DENIES ANY FAMILY HX SKIN CANCER OR PANCREATIC CANCER. SOCIAL HISTORY GENERAL: TOBACCO USE ARE YOU A:FORMER SMOKER HOW LONG HAS IT BEEN SINCE YOU LAST SMOKED?5-10 YEARS HIV / HEP-C SCREENING HIV TEST OFFERED TO PATIENT:NO HEP-C TEST OFFERED TO PATIENT:NO HOUSING: RENTS APARTMENT. EDUCATION 3RD GRADE. STATES IS ABLE TO READ NEWSPAPER. WRITES BUT SPELLING IS NOT GOOD.. DIET: NO ADDED SALT, LOW FAT, LOW CHOLESTEROL. LANGUAGE LUXEMBOURGISH. DOMESTIC VIOLENCE DO YOU FEEL SAFE IN YOUR ENVIRONMENT?YES BMI CARE GOAL FOLLOW-UP ABOVE NORMAL BMI FOLLOW-UPDIETARY MANAGEMENT EDUCATION, GUIDANCE, AND COUNSELING RECREATIONAL DRUG USE DRUG USE?NO EXERCISE: NO REGULAR EXERCISE. LEARNING BARRIERS / SPECIAL NEEDS CHANGE FROM LAST VISIT?NO 06/10/2019 BARRIERS TO LEARNING?YES COMMENTS LEARNING DISABILITY HEARING IMPAIRED?NO VISION IMPAIRED?YES COGNITIVELY IMPAIRED?NO :CORRECTIVE LENSES READINESS TO LEARN?YES LEARNING PREFERENCES?NO LEARNING CAPABILITIES PRESENT?YES EMOTIONAL BARRIERS?NO SPECIAL DEVICES?NO DIRECTOR PROSPECT NEEDED?NO LUNG CANCER SCREENING SMOKING STATUS:FORMER SMOKER IS THE PATIENT BETWEEN THE AGE OF 57 AND 79?NO PAIN CLINIC PFS, CLERGY, PUBLIC HEALTH REFERRALS HAS THE PATIENT BEEN EDUCATED REGARDING HIS/HER PLAN OF CARE?YES HAS THE PATIENT BEEN EDUCATED REGARDING PAIN, THE RISK FOR PAIN, THE IMPORTANCE OF EFFECTIVE PAIN MANAGEMENT, AND THE PAIN ASSESSMENT PROCESS?YES LATEX QUESTIONNAIRE LATEX ALLERGY : HAVE YOU EVER DEVELOPED ANY TYPE OF REACTION AFTER HANDLING LATEX PRODUCTS SUCH RUBBER GLOVES, CONDOMS, DIAPHRAGMS, BALLOONS, SOCKS, OR UNDERWEAR?YES LATEX ALLERGY : HAVE YOU EVER DEVELOPED ANY TYPE OF REACTION DURING OR AFTER DENTAL APPOINTMENT, VAGINAL/RECTAL EXAMINATION, SURGICAL PROCEDURE, OR ANY OTHER EXPOSURE?NO - PLEASE INDICATE :RUBBER GLOVES, CONDOMS, BALLOONS RASH DATE ASKED : 12/30/2018 LATEX RISK : HAVE YOU EVER HAD ANY DIFFICULTY BREATHING OR HIVES AFTER EATING OR HANDLING ANY FRUITS, OR VEGETABLES; SUCH KIWI, BANANAS, STONE FRUITS, OR CHESTNUTSNO LATEX RISK : DO YOU HAVE A PREVIOUS PERSONAL HISTORY OF MORE THAN NINE SURGERIES, SPINA BIFIDA, OR REPEATED CATHERIZATIONS? NO LATEX RISK : ARE YOU FREQUENTLY EXPOSED TO LATEX PRODUCTS IN YOUR OCCUPATION?NO CAFFEINE CAFFEINE USE?YES COFEE: 2 CUPS PER DAY ADVANCE DIRECTIVE ADVANCE DIRECTIVE DISCUSSED WITH PATIENT:YES PT DOES NOT HAVE ANY ADVANCED DIREDTIVES AND HE DECLINES INFORMATION ON HCP AT THIS TIME. RELIGIOUS [id number] YAZIDISM MARITAL STATUS: SINGLE. ALCOHOL SCREENING DID YOU HAVE A DRINK CONTAINING ALCOHOL IN THE PAST YEAR?NO POINTS0 INTERPRETATIONNEGATIVE OCCUPATION: DISABLED, SSI. SEXUAL HX HAD SEX IN THE LAST 12 MONTHS (VAGINAL, ORAL, OR ANAL)?: NO, HAVE YOU EVER HAD AN STD?: NO. REVIEWED WITH PT 05/14/18 0915 LAS09/01/18 1149 REVIEWED WITH PT. ADREVIEWED WITH PATIENT 01/13/19 1455 JSREVIEWED WITH PATIENT 05/16/19 0855 LAS. HOSPITALIZATION/MAJOR DIAGNOSTIC PROCEDURE [facility]- DEPRESSION/ANXIETY 14 YO HOUSE OF [facility] [place]- DEPRESSION 18 YO FATHER [facility]AC[facility]- [place] OF DEPRESSION. [age]YO HEMORRHOIDECTOMY WITH REMOVAL OF A MIXED HEMORRHOIDAL BUNDLES AT THE LEFT LATERAL AND RIGHT ANTERIOR AND POSTERIOR POSITIONS. 01/11/2016 CABG: [facility] 11/11/16 RE[facility]AB [facility] 11/21 REVIEW OF SYSTEMS REVIEWED BY: PROVIDER: MINA SHAH . CONSTITUTIONAL: ANY CHANGE IN YOUR MEDICAL CONDITION? NO . CHILLS NO . FEVER NO . INFECTION: DO YOU HAVE NEW INFECTIONS? NO . DO YOU HAVE HISTORY OF MRSA? NO . MUSCULOSKELETAL: ANY NEW PATTERNS OF PAIN OR NUMBNESS? YES, LEFT SCIATICA . GASTROENTEROLOGY: ANY NEW CHANGE IN BOWEL CONTROL? NO . GENITOURINARY: ANY NEW CHANGE IN BLADDER CONTROL? NO . IS THERE A CHANCE YOU COULD BE ? NO . HEMATOLOGY/LYMPH: DO YOU TAKE ANY BLOOD THINNERS? (FOR EXAMPLE- COUMADIN, PLAVIX, AGGRENOX, PLATEL, PRADAXA, OR XARELTO) NO . WHEN WAS YOUR LAST DOSE? DATE: TIME: . NEUROLOGY: HAVE YOU FALLEN IN THE PAST 12 MONTHS? NO . ANY NEW EXTREMITY NUMBNESS OR WEAKNESS? YES, LEFT LEG SCIATICA . CARDIOLOGY: DO YOU HAVE A PACEMAKER OR DEFIBRILLATOR? NO . RESPIRATORY: HAVE YOU BEEN SICK IN THE PAST WEEK? NO . FEVER NO . FLU LIKE SYMPTOMS? NO . COUGH NO . INTEGUMENTARY: DO YOU HAVE ANY RASHES OR OPEN SORES? YES, OPEN SORE TO RIGHT FOREARM . ALLERGIC/IMMUNO: ARE YOU ALLERGIC TO IV DYE? NO . ANY NEW ALLERGIES? NO . PSYCHIATRIC: DO YOU HAVE THOUGHTS OF HURTING YOURSELF OR SOMEONE ELSE? NO . ARE YOU ABUSED, NEGLECTED, OR IN AN UNSAFE ENVIRONMENT? NO . ENDOCRINOLOGY: ARE YOU DIABETIC? NO . OTHER: DO YOU NEED ANY PRESCRIPTIONS? NO . IF YES, PLEASE LIST: ____ . ANY NEW PROBLEMS WITH YOUR MEDICATIONS? NO . WHEN DID YOU LAST EAT? ____ . WHEN DID YOU LAST DRINK? ____ . WHAT DID YOU LAST DRINK? ____ . NAME OF PERSON DRIVING YOU HOME? ____ . DO YOU HAVE ANY OTHER QUESTIONS OR CONCERNS NO . VITAL SIGNS WT 309.2 LBS, HT 68 IN, BMI 47.01 INDEX, BP 117/72 MM HG, HR 70 /MIN, RR 18 /MIN, TEMP 96.7 F, OXYGEN SAT % 95%, NA INITIALS AW 1436, REVIEWED BY: EM. EXAMINATION GENERAL EXAMINATION: GENERAL ALERT,NO DISTRESS . PSYCH AFFECT NORMAL . LUNGS: LUNG SOUNDS ARE CLEAR . HEART: HEART RATE REGULAR . MUSCULOSKELETAL: MST 5/5 BILAT. LOWER EXTREMITIES . LUMBAR SACRAL SPINE TENDERNESS OVER LEFT SIJ /POSITIVE EMANI TESTING LEFT. DIAGNOSTIC TESTS REVIEWEDMRI L/S SPINE-04/08/18 . 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 /BRINGS IN MEDICATIONS WHICH IS APPROPRIATE FOR WHAT WAS DISPENSED. RECENT URINE TOXICOLOGY REVIEWED. NO UNAUTHORIZED MEDICATIONS. NO ILLICIT SUBSTANCES AND PRESCRIBED MEDICATIONS WERE PRESENT. , RISKS AND BENEFITS OF NARCOTIC/OPIOD MEDICATIONS WERE REVIEWED WITH PATIENT - THIS INCLUDES BUT IS NOT LIMITED TO RISK OF DEPENDANCE/DEVELOPMENT OF ADDICTION, MOOD DISTURBANCE AND DEPRESSION, OSTEOPOROSIS, HORMONAL AND LABIDAL CHANGES, RESPIRATORY DEPRESSION AND . PATIENT IS ADVISED NOT TO DRIVE OR DRINK ALCOHOL WHILE ON THESE MEDICATIONS. OTHERS NOTES: TRAMADOL MATERIAL WAS PRINTED. PROCEDURE CODES [id number] ESTABILISHED PATIENT [facility] CHARGE DISPOSITION & COMMUNICATION FOLLOW UP CANCEL RIGHT RF AND DO LEFT SIJ (REASON: LEFT SIJ) ELECTRONICALLY SIGNED BY PABLO KAM ON 06/27/2019 AT 02:20 PM EDT DISCLAIMER : THIS IS A VISIT SUMMARY EXTRACTED FROM THE ECLINICALWORKS CHART. IT IS NOT A COPY OF THE ECLINICALWORKS PROGRESS NOTE. GERALD
== END ==
LOC: M PAIN 14:00
PROVIDERS: ATTEND Nurse Practitioner Family
DX: M54.32 Sciatica, left side (principal); Z86.59 Personal history of other mental and behavioral disorders; E11.9 Type 2 diabetes mellitus without complications; K21.9 Gastro-esophageal reflux disease without esophagitis; E55.9 Vitamin D deficiency, unspecified; G47.33 Obstructive sleep apnea (adult) (pediatric); Z87.891 Personal history of nicotine dependence; Z88.5 Allergy status to narcotic agent; Z91.018 Allergy to other foods; Z91.040 Latex allergy status; Z91.09 Other allergy status, other than to drugs and biological substances; E66.01 Morbid (severe) obesity due to excess calories; Z68.42 Body mass index [BMI] 45.0-49.9, adult; Z79.899 Other long term (current) drug therapy

== ENCOUNTER 2019-09-13 15:23 | Emergency (ER) | payer MEDICAID, OTHER ==
[~2019-09-13] VITALS: Ht 172.7 cm; Wt 140.0 kg
[~2019-09-13 15:23] MED LIST changes: -OMEP40CA2 PO; +OMEP40CA97 PO
[2019-09-13] MEDS ORDERED: KETOROLAC 60 MG/2 ML VIAL (J1885) IM ONE (18:30)
[2019-09-13] MEDS ORDERED: ACETAMINOPHEN 325 MG TAB PO ONE (18:30)
[2019-09-13] MEDS ORDERED: MEDR4PAK PO (20:48)
[2019-09-13 20:51] VITALS: BP 127/79
== END 2019-09-13 21:07 | disposition home or self-care (01) ==
LOC: M ED 15:23
DX: M54.5 Low back pain (principal); Z87.891 Personal history of nicotine dependence; Z79.82 Long term (current) use of aspirin; Z79.899 Other long term (current) drug therapy; Z91.018 Allergy to other foods; Z91.89 Other specified personal risk factors, not elsewhere classified; Z91.040 Latex allergy status; Z88.5 Allergy status to narcotic agent
CPT/HCPCS: 96372; 99283; J1885

== ENCOUNTER 2019-09-23 19:16 | Emergency (ER) | payer OTHER ==
[~2019-09-23] VITALS: Ht 172.7 cm; Wt 139.1 kg
[~2019-09-23 19:16] MED LIST changes: -ACET-837 PO; -FAMO1TAB11 PO; -HYDR1CRE2 TOP; -SODIGEL TOP; -SUCR1TAB56 PO; -TRAM50TA2 PO
[2019-09-23] MEDS ORDERED: KETOROLAC 30 MG/ML VIAL (J1885) IV ONE (20:30)
[2019-09-23] MEDS ORDERED: GI COCKTAIL 50ML BTL(HYOSCYAMINE/MAALOX/LIDOCAINE VISCOUS)(1:3:1) PO ONE (20:30)
[2019-09-23] MEDS ORDERED: NS 1,000 ML IV ONE (20:30)
[2019-09-23 21:06] LABS: BASO % 0.5 % (0.0-1.0); EOS # 0.1 10^3/uL (0.0-0.5); EOS % 1.2 % (0.0-3.0); HEMATOCRIT 48.7 % (42.0-52.0); HEMOGLOBIN 15.5 g/dl (13.5-17.5); LYMPH # 1.6 10^3/uL (1.5-5.0); MEAN CORPUSCULAR HEMOGLOBIN 30.4 pg (27.0-33.0); MEAN CORPUSCULAR HGB CONC 31.8 g/dl (32.0-36.5); MEAN CORPUSCULAR VOLUME 95.5 fl (80.0-96.0); MONO % 13.5 % (0.0-5.0); NEUTROPHILS # 4.9 10^3/uL (1.5-8.5); NEUTROPHILS % 63.2 % (36.0-66.0); PLATELET COUNT, AUTOMATED 237 10^3/uL (150-450); WHITE BLOOD COUNT 7.7 10^3/uL (4.0-10.0)
[2019-09-23 21:12] VITALS: BP 152/93
[2019-09-23 21:35] LABS: ALBUMIN 3.9 GM/DL (3.2-5.2); BILIRUBIN,DIRECT 0.1 MG/DL (0.0-0.2); BILIRUBIN,TOTAL 0.4 MG/DL (0.2-1.0); TOTAL PROTEIN 7.5 GM/DL (6.4-8.2)
== END 2019-09-23 22:21 | disposition home or self-care (01) ==
LOC: M ED 19:16
DX: R10.9 Unspecified abdominal pain (principal); I25.10 Atherosclerotic heart disease of native coronary artery without angina pectoris; M54.9 Dorsalgia, unspecified; Z87.891 Personal history of nicotine dependence; Z79.82 Long term (current) use of aspirin; Z79.899 Other long term (current) drug therapy; Z91.018 Allergy to other foods; Z91.89 Other specified personal risk factors, not elsewhere classified; Z91.040 Latex allergy status; Z88.5 Allergy status to narcotic agent
CPT/HCPCS: 80047; 80076; 83690; 85025; 93041; 96361; 96374; 99284; J1885

== ENCOUNTER → 2019-09-23 | Outpatient (CLI) | payer OTHER ==
[~2019-09-23] MED LIST changes: +ACET-837 PO; +FAMO1TAB11 PO; +HYDR1CRE2 TOP; +MEDR4PAK PO; +SODIGEL TOP; +SUCR1TAB56 PO; +TRAM50TA2 PO
--- NOTE | 2019-10-12 01:12 | ECWPNPC ---
PATIENT NAME: DEANNA AN : 1965 GENDER: MALE VISIT DATE: 09/23/2019 DISCHARGE DATE: 09/23/19 1225 VISIT LOCKED DATE TIME: PHYSICIAN: MINA HAYWOOD RESOURCE: MINA HAYWOOD REASON FOR APPOINTMENT 1. POST PROC. HISTORY OF PRESENT ILLNESS HISTORY OF PRESENT ILLNESS: HERE FOR FOLLOW-UP OF ROUTINE RIGHT LOW BACK PAIN. RATING PAIN LEVEL AN 8/10. IS SCHEDULED FOR CARPAL TUNNEL SURGERY ON 10/18/2019. HAS BENEFITED FROM SACROILIAC JOINT INJECTIONS IN THE PAST. FINDINGS CURRENT MEDICATIONS SOMEWHAT EFFECTIVE IN REDUCING PAIN AND KEEPING HIM COMFORTABLE. DENIES SIDE EFFECTS. DISCUSSED DOING SACROILIAC BLOCK. AGAIN, AFTER HE RECUPERATES FROM UPCOMING SURGERY. PAIN THE PATIENT DESCRIBES THE PAIN... FALL RISK SCREENING: SCREENING :NO FALLS REPORTED IN THE LAST YEAR CURRENT MEDICATIONS TAKING BETAMETHASONE DIPROPIONATE AUG 0.05 % OINTMENT 1 APPLICATION TO AFFECTED AREA EXTERNALLY BID TO RASH ON ELBOW TAKING DAPSONE 25 MG TABLET 1 TABLET ORALLY ONCE A DAY TAKING ESCITALOPRAM OXALATE 10 MG TABLET 1 TABLET ORAL ONCE A DAY ALONG WITH A 20 MG TABLET TAKING SUCRALFATE 1 GM TABLET TAKE ONE TABLET BY MOUTH FOUR TIMES DAILY AFTER MEALS ORAL TAKING VENTOLIN HFA 108 (90 BASE) MCG/ACT AEROSOL SOLUTION INHALE TWO PUFFS BY MOUTH EVERY FOUR HOURS NEEDED INHALATION - TAKING RANITIDINE HCL 150 MG TABLET TAKE TWO TABLETS BY MOUTH @8PM - - TAKING ACETAMINOPHEN 500 MG CAPSULE 2 CAPSULE ORALLY EVERY 8 HRS NEEDED FOR PAIN TAKING METOPROLOL TARTRATE 25 MG TABLET 1/2 TAB ORAL DAILY TAKING ASPIRIN 325 MG TABLET 1 TABLET ORALLY ONCE A DAY TAKING ESCITALOPRAM OXALATE 10 MG TABLET 1 TABLET ORALLY ONCE A DAY TAKING ESCITALOPRAM OXALATE 20 MG TABLET 1 TABLET ORALLY ONCE A DAY TAKING TIZANIDINE HCL 4 MG TABLET 1 TAB ORAL Q8H PRN PAIN #45 TAB SHOULD LAST 30 DAYS TAKING SYNTHROID 75 MCG TABLET 1 TABLET ON AN EMPTY STOMACH IN THE MORNING ORALLY ONCE A DAY TAKING BUSPIRONE HCL 10 MG TABLET TAKE ONE TABLET BY MOUTH @8AM AND TAKE ONE TABLET @8PM ORAL TAKING FISH OIL + D3 [id number] MG-UNIT CAPSULE 1 CAPSULE ORALLY BID OTC TAKING MULTIVITAMIN ADULT - TABLET DIRECTED ORALLY , NOTES: 03/23/19 AM TAKING OMEPRAZOLE 40 MG CAPSULE DELAYED RELEASE TAKE ONE CAPSULE BY MOUTH @8AM ON AN EMPTY STOMACH ORAL TAKING TRIHEXYPHENIDYL HCL 2 MG TABLET TAKE ONE TABLET BY MOUTH TWICE DAILY ORALLY BID TAKING VITAMIN D 1000 UNIT TABLET 1 TABLET ORALLY ONCE A DAY TAKING LEVOTHYROXINE SODIUM 75 MCG TABLET TAKE ONE TABLET BY MOUTH @8AM ORALLY TAKING CETIRIZINE HCL 10 MG TABLET 1 TABLET ORALLY ONCE A DAY TAKING TOPIRAMATE 50 MG TABLET 1 TABLET ORALLY ONCE A DAY TAKING HYDROCORTISONE 1 % CREAM 1 APPLICATION RASH ONCE A DAY TAKING FAMOTIDINE 20 MG TABLET TAKE ONE TABLET BY MOUTH @8AM AND TAKE ONE TABLET BY MOUTH @8PM ORAL TAKING ONDANSETRON HCL 4 MG TABLET TAKE ONE TABLET BY MOUTH ONE TO TWO TIMES A DAY BEFORE MEALS, TAKE ONLY WHEN HAVING NAUSEA ORAL TAKING ESCITALOPRAM OXALATE 20 MG TABLET TAKE ONE TABLET BY MOUTH @5PM ORAL TAKING GABAPENTIN 600 MG TABLET TAKE ONE TABLET BY MOUTH @8AM AND TAKE ONE TABLET @12PM AND TAKE ONE TABLET @8PM ORAL Q8H TID TAKING ZYRTEC ALLERGY 10 MG TABLET 1 TABLET ORALLY ONCE A DAY TAKING ATORVASTATIN CALCIUM 40 MG TABLET 1 TABLET ORALLY ONCE A DAY NOT-TAKING MECLIZINE HCL 25 MG TABLET TAKE ONE TABLET BY MOUTH EVERY EIGHT HOURS ORAL MEDICATION LIST REVIEWED AND RECONCILED WITH THE PATIENT PAST MEDICAL HISTORY DEPRESSION/ANXIETY- DR LAWLER. /THERAPIST Q2 WEEKS HYPERLIPIDEMIA GERD WITH BARRETTS: REPEAT EGD IN 07/2018 VITAMIN D DEF FRAN: FOLLOWING WITH PULMONOLOGY: COMPLIANT WITH CPAP-PULMONOLOGY CAD: BYPASS WITH AUTOLOGOUS VEIN: DR. VALENCIA AT [facility] ECHO 10/17/2016. HYPERTENSIVE HEART DISEASE CARDIAC PET NUCLEAR STRESS 09/26/2016. LVEF 66% BACK PAIN HISTORY OF CHICKENPOX, MEASLES, MUMPS LYTIC LESION ADJACENT TO RT LOBE LIVER APPEARING WITHIN GB FOSSA: NO SURGICAL INTERVENTION IDICATED: DR. DOMINIQUE THYROID U/S 09/16 DIFFUSE HETEROGENEITY 2 6MM NODULES AT [facility]. - DR HERMILA RAUSCH CARDIAC CATH WITH CABG 11/13/2016 SPECT STRESS LVEF 55%, NO EVIDENCE OF ISCHEMI, LEFT VENTRICULAR DIALATION WITH STRESS 08/26/2017 EUS (ENDOSCOPIC U/S-DR. LE)-NO PANCREATIC MASS OR COMMON BILE DUCT STRICTURE HIDA SCAN-UNREMARKABLE 2018, NORMAL GB AND EF, HYPERTONIC SPHINCTER OF ODDI FATTY LIVER WITH FATTY PANCREAS COLONOSCOPY 2017 UPPER ENDOSCOPY 2018 GALLBLADDER U/S 04/23/18: FATTY INFILTRATE OF LIVER AND EXOPHYTIC CYST ON THE RIGHT LOBE. NO HEPATIC SOLID MASS OR BILLARY DILATATION. GALLBLADDER WITHOUT ACUTE FINDINGS ECHO: 12/20/17-NO SIGNIFICANT VALVULAR DISEASE, LEFT VENTRICULAR SYSTOLIC FUNCTION NORMAL, LEFT VENTRICULAR DIASTOLIC FUNCTION NORMAL, CONCENTRIC LEFT CENTRICULAR HYPERTROPHY MILD, HYPERTNESIVE HEART DISEASE MODERATE. MILDLY DILATED LEFT ATRIUM 4.3CM. MILDLY DILATED AORTIC ROOT AT 4.0CM. TRACE TO SMALL PERICARDAL EFFUSION NOTED POSTERIORLY IN LIMITED VIEWS, NO EVIDENCE OF CARDIAC TAMPONADE. LVEF 55-60% DERMATITIS HERPETIFORMIS CARPAL TUNNEL ALLERGIES CODEINE PHOSPHATE (FOR ALLERGIES USE ONLY): NAUSEA/VOMITING - SIDE EFFECTS LATEX (FOR ALLERGY USE ONLY): RASH - ALLERGY ADHESIVE TAPE: RASH - ALLERGY GLUTEN ALLERGY: RASH - ALLERGY SURGICAL HISTORY LEFT HAND, 5TH DIGIT, REMOVED TUMOR 1979 & 2016 TONSILLECTOMY CHILD COLONOSCOPY- INTERNAL HEMORRHOID, POLYP X 1- ADENOMATOUS 02/02/15 COLONOSCOPY - 2 TUBULAR ADENOMAS, MUCOSAL ULCERATION, MODERATE DIVERTICULOSIS IN THE SIGMOID COLON, EXTERNAL HEMORRHOIDS. SIGMOIDOSCOPY DUE 10/2018, REPEAT COLONOSCOPY 5 YRS 10/13/17 EGD- LG 02/02/15 HEMORRHOIDECTOMY 4-6- LEFT FOOT BUNIONECTOMY WITH FIRST METATARSAL OSTEOSTOMY-DR. IRIZARRY 03/31/16 CABG- 4 [facility]SEL [facility] 11/11/16 LEFT HAND CP SX, AND TENDON REMOVAL. [facility] 01/2018 UPPER ENDOSCOPIC ULTRASOUND WITH ANESTHESIA 07/2018 WIRES REMOVED FROM CHEST 09/29/2018 HAMMER TOE, LEFT FOOT, DR. IRIZARRY 03/30/19 [facility] FAMILY HISTORY FATHER: 79 YRS, [place], HTN, DIAGNOSED WITH HYPERTENSION, UNSPECIFIED HEART DISEASE IN 62 MOTHER: ALIVE 66 YRS, HTN, HYPERTENSION, UNSPECIFIED HEART DISEASE 1 BROTHER(S) , 1 SISTER(S) - HEALTHY. 3 HALF BROTHER, 1 HALF SISTER-HEALTHY, NO KNOWN FAMILY HISTORY OF ANY UROLOGICALLY RELATED DISEASES CANCERS. DENIES ANY FAMILY HX SKIN CANCER OR PANCREATIC CANCER. SOCIAL HISTORY GENERAL: TOBACCO USE ARE YOU A:FORMER SMOKER HOW LONG HAS IT BEEN SINCE YOU LAST SMOKED?5-10 YEARS HIV / HEP-C SCREENING HIV TEST OFFERED TO PATIENT:NO HEP-C TEST OFFERED TO PATIENT:NO HOUSING: RENTS APARTMENT. EDUCATION 3RD GRADE. STATES IS ABLE TO READ NEWSPAPER. WRITES BUT SPELLING IS NOT GOOD.. DIET: NO ADDED SALT, LOW FAT, LOW CHOLESTEROL. LANGUAGE LANGUAGES SPOKEN:[place] CITIZEN DOMESTIC VIOLENCE DO YOU FEEL SAFE IN YOUR ENVIRONMENT?YES BMI CARE GOAL FOLLOW-UP ABOVE NORMAL BMI FOLLOW-UPDIETARY MANAGEMENT EDUCATION, GUIDANCE, AND COUNSELING RECREATIONAL DRUG USE DRUG USE?NO EXERCISE: NO REGULAR EXERCISE. LEARNING BARRIERS / SPECIAL NEEDS CHANGE FROM LAST VISIT?NO 06/10/2019 BARRIERS TO LEARNING?YES COMMENTS LEARNING DISABILITY HEARING IMPAIRED?NO VISION IMPAIRED?YES COGNITIVELY IMPAIRED?NO :CORRECTIVE LENSES READINESS TO LEARN?YES LEARNING PREFERENCES?NO LEARNING CAPABILITIES PRESENT?YES EMOTIONAL BARRIERS?NO SPECIAL DEVICES?NO SAND TEMPERER NEEDED?NO LUNG CANCER SCREENING SMOKING STATUS:FORMER SMOKER IS THE PATIENT BETWEEN THE AGE OF 57 AND 79?NO PAIN CLINIC PFS, CLERGY, PUBLIC HEALTH REFERRALS HAS THE PATIENT BEEN EDUCATED REGARDING HIS/HER PLAN OF CARE?YES HAS THE PATIENT BEEN EDUCATED REGARDING PAIN, THE RISK FOR PAIN, THE IMPORTANCE OF EFFECTIVE PAIN MANAGEMENT, AND THE PAIN ASSESSMENT PROCESS?YES LATEX QUESTIONNAIRE LATEX ALLERGY : HAVE YOU EVER DEVELOPED ANY TYPE OF REACTION AFTER HANDLING LATEX PRODUCTS SUCH RUBBER GLOVES, CONDOMS, DIAPHRAGMS, BALLOONS, SOCKS, OR UNDERWEAR?YES LATEX ALLERGY : HAVE YOU EVER DEVELOPED ANY TYPE OF REACTION DURING OR AFTER DENTAL APPOINTMENT, VAGINAL/RECTAL EXAMINATION, SURGICAL PROCEDURE, OR ANY OTHER EXPOSURE?NO - PLEASE INDICATE :RUBBER GLOVES, CONDOMS, BALLOONS RASH DATE ASKED : 12/30/2018 LATEX RISK : HAVE YOU EVER HAD ANY DIFFICULTY BREATHING OR HIVES AFTER EATING OR HANDLING ANY FRUITS, OR VEGETABLES; SUCH KIWI, BANANAS, STONE FRUITS, OR CHESTNUTSNO LATEX RISK : DO YOU HAVE A PREVIOUS PERSONAL HISTORY OF MORE THAN NINE SURGERIES, SPINA BIFIDA, OR REPEATED CATHERIZATIONS? NO LATEX RISK : ARE YOU FREQUENTLY EXPOSED TO LATEX PRODUCTS IN YOUR OCCUPATION?NO CAFFEINE CAFFEINE USE?YES COFEE: 2 CUPS PER DAY ADVANCE DIRECTIVE ADVANCE DIRECTIVE DISCUSSED WITH PATIENT:YES PT DOES NOT HAVE ANY ADVANCED DIREDTIVES AND HE DECLINES INFORMATION ON HCP AT THIS TIME. BAPTIST [id number] SYNAGOGUE MARITAL STATUS: SINGLE. ALCOHOL SCREENING DID YOU HAVE A DRINK CONTAINING ALCOHOL IN THE PAST YEAR?NO POINTS0 INTERPRETATIONNEGATIVE OCCUPATION: DISABLED, SSI. SEXUAL HX HAD SEX IN THE LAST 12 MONTHS (VAGINAL, ORAL, OR ANAL)?: NO, HAVE YOU EVER HAD AN STD?: NO. REVIEWED WITH PT 05/14/18 0915 LAS09/01/18 1149 REVIEWED WITH PT. HERMES WITH PATIENT 01/13/19 1455 JSREVIEWED WITH PATIENT 05/16/19 3101 LAS. HOSPITALIZATION/MAJOR DIAGNOSTIC PROCEDURE [facility]- DEPRESSION/ANXIETY 14 YO HOUSE OF KIRSTIN RAUS[facility]- [place]- DEPRESSION 18 YO FATHER SARITA QUINTERO- LOCKED FACILTY- [place] OF DEPRESSION. [age]YO HEMORRHOIDECTOMY WITH REMOVAL OF A MIXED HEMORRHOIDAL BUNDLES AT THE LEFT LATERAL AND RIGHT ANTERIOR AND POSTERIOR POSITIONS. 01/11/2016 CABG: [facility] 11/11/16 [facility] 11/21 REVIEW OF SYSTEMS REVIEWED BY: PROVIDER: MINA SHAH . CONSTITUTIONAL: ANY CHANGE IN YOUR MEDICAL CONDITION? RIGHT CARPAL TUNNEL ..SURGERY 10-18-18 . CHILLS NO . FEVER NO . INFECTION: DO YOU HAVE NEW INFECTIONS? NO . DO YOU HAVE HISTORY OF MRSA? NO . MUSCULOSKELETAL: ANY NEW PATTERNS OF PAIN OR NUMBNESS? YES WAKING UP WITH RIGHT BUTTOCKS AREA . GASTROENTEROLOGY: ANY NEW CHANGE IN BOWEL CONTROL? NO . GENITOURINARY: ANY NEW CHANGE IN BLADDER CONTROL? NO . IS THERE A CHANCE YOU COULD BE ? NO . HEMATOLOGY/LYMPH: DO YOU TAKE ANY BLOOD THINNERS? (FOR EXAMPLE- COUMADIN, PLAVIX, AGGRENOX, PLATEL, PRADAXA, OR XARELTO) NO . WHEN WAS YOUR LAST DOSE? DATE: TIME: . NEUROLOGY: HAVE YOU FALLEN IN THE PAST 12 MONTHS? YES . ANY NEW EXTREMITY NUMBNESS OR WEAKNESS? NO . CARDIOLOGY: DO YOU HAVE A PACEMAKER OR DEFIBRILLATOR? NO . RESPIRATORY: HAVE YOU BEEN SICK IN THE PAST WEEK? NO . FEVER NO . FLU LIKE SYMPTOMS? NO . COUGH NO . INTEGUMENTARY: DO YOU HAVE ANY RASHES OR OPEN SORES? NO . ALLERGIC/IMMUNO: ARE YOU ALLERGIC TO IV DYE? NO . ANY NEW ALLERGIES? NO . PSYCHIATRIC: DO YOU HAVE THOUGHTS OF HURTING YOURSELF OR SOMEONE ELSE? NO . ARE YOU ABUSED, NEGLECTED, OR IN AN UNSAFE ENVIRONMENT? NO . ENDOCRINOLOGY: ARE YOU DIABETIC? NO . OTHER: DO YOU NEED ANY PRESCRIPTIONS? NO . IF YES, PLEASE LIST: ____ . ANY NEW PROBLEMS WITH YOUR MEDICATIONS? NO . WHEN DID YOU LAST EAT? ____ . WHEN DID YOU LAST DRINK? ____ . WHAT DID YOU LAST DRINK? ____ . NAME OF PERSON DRIVING YOU HOME? ____ . DO YOU HAVE ANY OTHER QUESTIONS OR CONCERNS NO . VITAL SIGNS WT 306.2 LBS, HT 68 IN, BMI 46.55 INDEX, BP 137/71 MM HG, HR 80 /MIN, RR 18 /MIN, TEMP 97.4 F, OXYGEN SAT % 95%, NA INITIALS AW 1146. EXAMINATION GENERAL EXAMINATION: GENERAL ALERT,NO DISTRESS . PSYCH AFFECT NORMAL . LUNGS: LUNG SOUNDS ARE CLEAR . HEART: HEART RATE REGULAR . MUSCULOSKELETAL: MST 02/06 BILAT. LOWER EXTREMITIES . FOR BILAT. SIJ TENDERNESS OVER LEFT SIJ /POSITIVE EMANI TESTING LEFT. DIAGNOSTIC TESTS REVIEWEDMRI L/S SPINE-04/08/18 . 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 PROCEDURE CODES FA211 ESTABILISHED [facility] CHARGE DISPOSITION & COMMUNICATION FOLLOW UP 2 MONTHS (REASON: LOW BACK PAIN) ELECTRONICALLY SIGNED BY PABLO KAM ON 10/11/2019 AT 04:35 PM EST DISCLAIMER : THIS IS A VISIT SUMMARY EXTRACTED FROM THE [employer] CHART. IT IS NOT A COPY OF THE [employer] PROGRESS NOTE. MTDD
== END ==
LOC: M PAIN 11:15
PROVIDERS: ATTEND Nurse Practitioner Family
DX: M51.16 Intervertebral disc disorders with radiculopathy, lumbar region (principal); M54.32 Sciatica, left side

== ENCOUNTER 2019-10-07 10:56 | Emergency (ER) | payer MEDICAID, OTHER ==
[~2019-10-07] VITALS: Ht 172.7 cm; Wt 137.0 kg
[2019-10-07] MEDS ORDERED: SODIGEL TOP (13:13)
[2019-10-07] MEDS ORDERED: SUCR1TAB56 PO (13:13)
[2019-10-07] MEDS ORDERED: ACET-837 PO (13:13)
[2019-10-07] MEDS ORDERED: FAMO1TAB11 PO (13:13)
[2019-10-07] MEDS ORDERED: TRAM50TA2 PO (13:13)
[2019-10-07] MEDS ORDERED: HYDR1CRE2 TOP (13:13)
[2019-10-07 13:22] LABS: INFLUENZA A AMPLIFICATION NEGATIVE (NEGATIVE); INFLUENZA B AMPLIFICATION NEGATIVE (NEGATIVE)
[2019-10-07 13:35] LABS: BASO % 0.5 % (0.0-1.0); EOS # 0.1 10^3/uL (0.0-0.5); EOS % 1.4 % (0.0-3.0); HEMATOCRIT 48.2 % (42.0-52.0); HEMOGLOBIN 15.3 g/dl (13.5-17.5); LYMPH # 1.6 10^3/uL (1.5-5.0); LYMPH % 25.3 % (24.0-44.0); MEAN CORPUSCULAR HEMOGLOBIN 30.1 pg (27.0-33.0); MEAN CORPUSCULAR HGB CONC 31.7 g/dl (32.0-36.5); MEAN CORPUSCULAR VOLUME 94.9 fl (80.0-96.0); MONO % 15.9 % (0.0-5.0); NEUTROPHILS # 3.6 10^3/uL (1.5-8.5); NEUTROPHILS % 56.6 % (36.0-66.0); PLATELET COUNT, AUTOMATED 240 10^3/uL (150-450); RED BLOOD COUNT 5.08 10^6/uL (4.30-6.10); WHITE BLOOD COUNT 6.4 10^3/uL (4.0-10.0)
[2019-10-07] MEDS ORDERED: ACETAMINOPHEN 325 MG TAB PO ONE (13:45)
[2019-10-07 14:25] VITALS: BP 108/64
== END 2019-10-07 14:58 | disposition home or self-care (01) ==
LOC: M ED 10:56
DX: J06.9 Acute upper respiratory infection, unspecified (principal); M79.10 Myalgia, unspecified site; R53.81 Other malaise; B34.9 Viral infection, unspecified; I50.9 Heart failure, unspecified; I25.10 Atherosclerotic heart disease of native coronary artery without angina pectoris; I10 Essential (primary) hypertension; E78.5 Hyperlipidemia, unspecified; E03.9 Hypothyroidism, unspecified; F41.9 Anxiety disorder, unspecified; F32.9 Major depressive disorder, single episode, unspecified; F41.0 Panic disorder [episodic paroxysmal anxiety]; K21.9 Gastro-esophageal reflux disease without esophagitis; G47.33 Obstructive sleep apnea (adult) (pediatric); H40.9 Unspecified glaucoma; Z95.1 Presence of aortocoronary bypass graft; Z87.891 Personal history of nicotine dependence; Z79.82 Long term (current) use of aspirin; Z79.899 Other long term (current) drug therapy; Z91.018 Allergy to other foods; Z91.89 Other specified personal risk factors, not elsewhere classified; Z91.040 Latex allergy status; Z88.5 Allergy status to narcotic agent

== ENCOUNTER 2019-11-16 14:07 | Emergency (ER) | payer MEDICAID, OTHER ==
[~2019-11-16] VITALS: Ht 172.7 cm; Wt 135.4 kg
[~2019-11-16 14:07] MED LIST changes: +ACET-837 PO; -ARTIDRO2 OU; +FAMO1TAB11 PO; +HYDR1CRE2 TOP; -MECL-68 PO; +MECL1TAB31 PO; +POLYOPD OU; +SODIGEL TOP; +SUCR1TAB56 PO; +TRAM50TA2 PO
[2019-11-16] MEDS ORDERED: OXYC1TAB23 PO (14:20)
[2019-11-16] MEDS ORDERED: KETOROLAC 60 MG/2 ML VIAL (J1885) IM ONE (19:45)
[2019-11-16] MEDS ORDERED: methocarbamoL 750 MG TAB PO ONE (19:45)
[2019-11-16 19:56] VITALS: BP 118/72
== END 2019-11-16 19:57 | disposition home or self-care (01) ==
LOC: M ED 14:07
DX: G89.29 Other chronic pain (principal); M54.5 Low back pain; E66.9 Obesity, unspecified; I10 Essential (primary) hypertension; E78.5 Hyperlipidemia, unspecified; Z87.442 Personal history of urinary calculi; R51 Headache; G47.33 Obstructive sleep apnea (adult) (pediatric); E03.9 Hypothyroidism, unspecified; F41.9 Anxiety disorder, unspecified; F32.9 Major depressive disorder, single episode, unspecified; R25.1 Tremor, unspecified; Z87.891 Personal history of nicotine dependence; Z79.899 Other long term (current) drug therapy; Z88.5 Allergy status to narcotic agent; Z91.89 Other specified personal risk factors, not elsewhere classified; Z91.018 Allergy to other foods; Z91.040 Latex allergy status
CPT/HCPCS: 96372; 99283; J1885

== ENCOUNTER → 2019-11-22 | Outpatient (CLI) | payer OTHER ==
[~2019-11-22] MED LIST changes: +CYCL10TA PO; +NAPR-837 PO
--- NOTE | 2019-12-06 02:02 | ECWPNPC ---
PATIENT NAME: DEANNA AN : 1965 GENDER: MALE VISIT DATE: 11/22/2019 DISCHARGE DATE: 11/22/19 1134 VISIT LOCKED DATE TIME: PHYSICIAN: MINA HAYWOOD RESOURCE: MINA HAYWOOD REASON FOR APPOINTMENT 1. INCREASED PAIN HISTORY OF PRESENT ILLNESS HISTORY OF PRESENT ILLNESS: BEING SEEN ON AN URGENT BASIS TODAY FOR AGGRAVATION IN RIGHT LOW BACK PAIN, RIGHT HIP PAIN. HE DID HAVE A VISIT TO THE ER DUE TO THIS OVER THE PAST WEEKEND. ALSO STATES THAT LEFT LEG SCIATIC PAIN HAS OCCURRED AGAIN. STATES RIGHT LOW BACK PAIN IS THE WORST AREA OF PAIN. HAS HAD SEVERAL MISSED FOLLOW-UP AND PROCEDURE VISITS CANCELED OUT OVER THE PAST 3 OR 4 MONTHS. DISCUSSED DOING RIGHT RADIOFREQUENCY PLANNED. PATIENT IS RECEPTIVE. DISCUSSED MEDICATION OPTIONS. RATING PAIN LEVEL AN 8-10 OVER 10 VAS. STATES ICE OR HEAT IS HELPFUL. PAIN THE PATIENT DESCRIBES THE PAIN... FALL RISK SCREENING: SCREENING :NO FALLS REPORTED IN THE LAST YEAR CURRENT MEDICATIONS TAKING IBUPROFEN 600 MG TABLET 1 TABLET WITH FOOD OR MILK NEEDED ORALLY BID NEEDED TAKING BETAMETHASONE DIPROPIONATE AUG 0.05 % OINTMENT 1 APPLICATION TO AFFECTED AREA EXTERNALLY BID TO RASH ON ELBOW TAKING DAPSONE 25 MG TABLET 1 TABLET ORALLY ONCE A DAY TAKING ESCITALOPRAM OXALATE 10 MG TABLET 1 TABLET ORAL ONCE A DAY ALONG WITH A 20 MG TABLET TAKING SUCRALFATE 1 GM TABLET TAKE ONE TABLET BY MOUTH FOUR TIMES DAILY AFTER MEALS ORAL TAKING VENTOLIN HFA 108 (90 BASE) MCG/ACT AEROSOL SOLUTION INHALE TWO PUFFS BY MOUTH EVERY FOUR HOURS NEEDED INHALATION - TAKING ACETAMINOPHEN 500 MG CAPSULE 2 CAPSULE ORALLY EVERY 8 HRS NEEDED FOR PAIN TAKING METOPROLOL TARTRATE 25 MG TABLET 1/2 TAB ORAL DAILY TAKING ASPIRIN 325 MG TABLET 1 TABLET ORALLY ONCE A DAY TAKING ESCITALOPRAM OXALATE 20 MG TABLET 1 TABLET ORALLY ONCE A DAY TAKING SYNTHROID 75 MCG TABLET 1 TABLET ON AN EMPTY STOMACH IN THE MORNING ORALLY ONCE A DAY TAKING BUSPIRONE HCL 10 MG TABLET TAKE ONE TABLET BY MOUTH @8AM AND TAKE ONE TABLET @8PM ORAL TAKING FISH OIL + D3 [id number] MG-UNIT CAPSULE 1 CAPSULE ORALLY BID OTC TAKING MULTIVITAMIN ADULT - TABLET DIRECTED ORALLY TAKING OMEPRAZOLE 40 MG CAPSULE DELAYED RELEASE TAKE ONE CAPSULE BY MOUTH @8AM ON AN EMPTY STOMACH ORAL TAKING TRIHEXYPHENIDYL HCL 2 MG TABLET TAKE ONE TABLET BY MOUTH TWICE DAILY ORALLY BID TAKING VITAMIN D 1000 UNIT TABLET 1 TABLET ORALLY ONCE A DAY TAKING CETIRIZINE HCL 10 MG TABLET 1 TABLET ORALLY ONCE A DAY TAKING TOPIRAMATE 50 MG TABLET 1 TABLET ORALLY ONCE A DAY TAKING HYDROCORTISONE 1 % CREAM 1 APPLICATION RASH ONCE A DAY TAKING FAMOTIDINE 20 MG TABLET TAKE ONE TABLET BY MOUTH @8AM AND TAKE ONE TABLET BY MOUTH @8PM ORAL TAKING ONDANSETRON HCL 4 MG TABLET TAKE ONE TABLET BY MOUTH ONE TO TWO TIMES A DAY BEFORE MEALS, TAKE ONLY WHEN HAVING NAUSEA ORAL TAKING ATORVASTATIN CALCIUM 40 MG TABLET 1 TABLET ORALLY ONCE A DAY TAKING TRAMADOL HCL 50 MG TABLET 1 TABLET NEEDED ORALLY Q6H PRN MDD4 TAKING TIZANIDINE HCL 4 MG TABLET 1 TAB ORAL Q8H PRN PAIN #45 TAB SHOULD LAST 30 DAYS TAKING LEVOTHYROXINE SODIUM 75 MCG TABLET TAKE ONE TABLET BY MOUTH @8AM ORALLY TAKING ZYRTEC ALLERGY 10 MG TABLET 1 TABLET ORALLY ONCE A DAY TAKING GABAPENTIN 600 MG TABLET TAKE ONE TABLET BY MOUTH @8AM AND TAKE ONE TABLET @12PM AND TAKE ONE TABLET @8PM ORAL Q8H TID UNKNOWN AYR SALINE NASAL - GEL USE DIRECTED DAILY NEEDED NASALLY FOUR TIMES DAILY MEDICATION LIST REVIEWED AND RECONCILED WITH THE PATIENT PAST MEDICAL HISTORY DEPRESSION/ANXIETY- DR LAWLER. /THERAPIST Q2 WEEKS HYPERLIPIDEMIA GERD WITH BARRETTS: REPEAT EGD IN 07/2018 VITAMIN D DEF FRAN: FOLLOWING WITH PULMONOLOGY: COMPLIANT WITH CPAP-PULMONOLOGY CAD: BYPASS WITH AUTOLOGOUS VEIN: DR. VALENCIA AT [facility] ECHO 10/17/2016. HYPERTENSIVE HEART DISEASE CARDIAC PET NUCLEAR STRESS 09/26/2016. LVEF 66% BACK PAIN HISTORY OF CHICKENPOX, MEASLES, MUMPS LYTIC LESION ADJACENT TO RT LOBE LIVER APPEARING WITHIN GB FOSSA: NO SURGICAL INTERVENTION IDICATED: DR. DOMINIQUE THYROID U/S 09/16 DIFFUSE HETEROGENEITY 2 6MM NODULES AT [facility]. - DR HERMILA RAUSCH CARDIAC CATH WITH CABG 11/13/2016 SPECT STRESS LVEF 55%, NO EVIDENCE OF ISCHEMI, LEFT VENTRICULAR DIALATION WITH STRESS 08/26/2017 EUS (ENDOSCOPIC U/S-DR. LE)-NO PANCREATIC MASS OR COMMON BILE DUCT STRICTURE HIDA SCAN-UNREMARKABLE 2018, NORMAL GB AND EF, HYPERTONIC SPHINCTER OF ODDI FATTY LIVER WITH FATTY PANCREAS COLONOSCOPY 2017 UPPER ENDOSCOPY 2018 GALLBLADDER U/S 04/23/18: FATTY INFILTRATE OF LIVER AND EXOPHYTIC CYST ON THE RIGHT LOBE. NO HEPATIC SOLID MASS OR BILLARY DILATATION. GALLBLADDER WITHOUT ACUTE FINDINGS ECHO: 12/20/17-NO SIGNIFICANT VALVULAR DISEASE, LEFT VENTRICULAR SYSTOLIC FUNCTION NORMAL, LEFT VENTRICULAR DIASTOLIC FUNCTION NORMAL, CONCENTRIC LEFT CENTRICULAR HYPERTROPHY MILD, HYPERTNESIVE HEART DISEASE MODERATE. MILDLY DILATED LEFT ATRIUM 4.3CM. MILDLY DILATED AORTIC ROOT AT 4.0CM. TRACE TO SMALL PERICARDAL EFFUSION NOTED POSTERIORLY IN LIMITED VIEWS, NO EVIDENCE OF CARDIAC TAMPONADE. LVEF 55-60% DERMATITIS HERPETIFORMIS CARPAL TUNNEL ALLERGIES CODEINE PHOSPHATE (FOR ALLERGIES USE ONLY): NAUSEA/VOMITING - SIDE EFFECTS LATEX (FOR ALLERGY USE ONLY): RASH - ALLERGY ADHESIVE TAPE: RASH - ALLERGY GLUTEN ALLERGY: RASH - ALLERGY SURGICAL HISTORY LEFT HAND, 5TH DIGIT, REMOVED TUMOR 1979 & 2016 TONSILLECTOMY CHILD COLONOSCOPY- INTERNAL HEMORRHOID, POLYP X 1- ADENOMATOUS 02/02/15 COLONOSCOPY - 2 TUBULAR ADENOMAS, MUCOSAL ULCERATION, MODERATE DIVERTICULOSIS IN THE SIGMOID COLON, EXTERNAL HEMORRHOIDS. SIGMOIDOSCOPY DUE 10/2018, REPEAT COLONOSCOPY 5 YRS 10/13/17 EGD- [facility] 02/02/15 HEMORRHOIDECTOMY 4-6- LEFT FOOT BUNIONECTOMY WITH FIRST METATARSAL OSTEOSTOMY-DR. IRIZARRY 03/31/16 CABG- 4 VESSEL AT [facility] 11/11/16 LEFT HAND CP SX, AND TENDON REMOVAL. [facility] 01/2018 UPPER ENDOSCOPIC ULTRASOUND WITH ANESTHESIA 07/2018 WIRES REMOVED FROM CHEST 09/29/2018 TITA TOE, LEFT FOOT, DR. IRIZARRY 03/30/19 EGD-DR. BEGUM 01/2019 [facility] 03/2019 RIGHT HAND TRIGGER AND CARPEL TUNNEL FAMILY HISTORY FATHER: 79 YRS, [place], HTN, DIAGNOSED WITH HYPERTENSION, UNSPECIFIED HEART DISEASE IN 62 MOTHER: ALIVE 66 YRS, HTN, HYPERTENSION, UNSPECIFIED HEART DISEASE 1 BROTHER(S) , 1 SISTER(S) - HEALTHY. 3 HALF BROTHER, 1 HALF SISTER-HEALTHY, NO KNOWN FAMILY HISTORY OF ANY UROLOGICALLY RELATED DISEASES CANCERS. DENIES ANY FAMILY HX SKIN CANCER OR PANCREATIC CANCER. HOSPITALIZATION/MAJOR DIAGNOSTIC PROCEDURE [facility]- DEPRESSION/ANXIETY 14 YO HOUSE OF [employer] [facility]- [place]- DEPRESSION 18 YO FATHER SALINAS- DEARING- LOCKED FACILTY- [place] OF DEPRESSION. [age]YO HEMORRHOIDECTOMY WITH REMOVAL OF A MIXED HEMORRHOIDAL BUNDLES AT THE LEFT LATERAL AND RIGHT ANTERIOR AND POSTERIOR POSITIONS. 01/11/2016 CABG: [facility] 11/11/16 [facility] 11/21 REVIEW OF SYSTEMS REVIEWED BY: PROVIDER: MINA SHAH . CONSTITUTIONAL: ANY CHANGE IN YOUR MEDICAL CONDITION? NO . CHILLS NO . FEVER NO . INFECTION: DO YOU HAVE NEW INFECTIONS? NO . DO YOU HAVE HISTORY OF MRSA? NO . MUSCULOSKELETAL: ANY NEW PATTERNS OF PAIN OR NUMBNESS? LEFT FOOT IS GOING NUMB INCREASED PAIN . GASTROENTEROLOGY: ANY NEW CHANGE IN BOWEL CONTROL? NO . GENITOURINARY: ANY NEW CHANGE IN BLADDER CONTROL? NO . IS THERE A CHANCE YOU COULD BE ? NO . HEMATOLOGY/LYMPH: DO YOU TAKE ANY BLOOD THINNERS? (FOR EXAMPLE- COUMADIN, PLAVIX, AGGRENOX, PLATEL, PRADAXA, OR XARELTO) NO . WHEN WAS YOUR LAST DOSE? DATE: TIME: . NEUROLOGY: HAVE YOU FALLEN IN THE PAST 12 MONTHS? NO . ANY NEW EXTREMITY NUMBNESS OR WEAKNESS? NO . CARDIOLOGY: DO YOU HAVE A PACEMAKER OR DEFIBRILLATOR? NO . RESPIRATORY: HAVE YOU BEEN SICK IN THE PAST WEEK? NO . FEVER NO . FLU LIKE SYMPTOMS? NO . COUGH NO . INTEGUMENTARY: DO YOU HAVE ANY RASHES OR OPEN SORES? LEFT ELBO AREA . ALLERGIC/IMMUNO: ARE YOU ALLERGIC TO IV DYE? NO . ANY NEW ALLERGIES? NO . PSYCHIATRIC: DO YOU HAVE THOUGHTS OF HURTING YOURSELF OR SOMEONE ELSE? NO . ARE YOU ABUSED, NEGLECTED, OR IN AN UNSAFE ENVIRONMENT? NO . ENDOCRINOLOGY: ARE YOU DIABETIC? NO . OTHER: DO YOU NEED ANY PRESCRIPTIONS? NO . IF YES, PLEASE LIST: ____ . ANY NEW PROBLEMS WITH YOUR MEDICATIONS? NO . WHEN DID YOU LAST EAT? ____ . WHEN DID YOU LAST DRINK? ____ . WHAT DID YOU LAST DRINK? ____ . NAME OF PERSON DRIVING YOU HOME? ____ . DO YOU HAVE ANY OTHER QUESTIONS OR CONCERNS NO . VITAL SIGNS WT 301.4 LBS, HT 68 IN, BMI 45.82 INDEX, BP 110/68 MM HG, HR 72 /MIN, RR 19 /MIN, TEMP 97.2 F, OXYGEN SAT % 95%, SAFE IN ENV? (Y/N) YES, NA INITIALS MS 1014, REVIEWED BY: KG. EXAMINATION GENERAL EXAMINATION: LUNGS: LUNG SOUNDS ARE CLEAR . HEART: HEART RATE REGULAR . MUSCULOSKELETAL:*, MUSCLE STRENGTH TESTING 5/5 BILATERAL LOWER EXTREMITIES., ,PALPATION: POSITIVE FOR PAIN OVER L/S SPINE. POSITIVE FOR PAIN OVER L/S PARSPINALS.SPECIFIC POINT TENDERNESS OVER BILAT L4/5-L5/S1 LUMBR FACETS WITH FACET LOADING R>L. DIAGNOSTIC TESTS REVIEWEDMRI LUMBAR SPINE 04/08/2018 . ASSESSMENTS SPONDYLOSIS OF LUMBAR REGION WITHOUT MYELOPATHY OR RADICULOPATHY - M47.816 (PRIMARY) TREATMENT SPONDYLOSIS OF LUMBAR REGION WITHOUT MYELOPATHY OR RADICULOPATHY REFILL IBUPROFEN TABLET, 600 MG, 1 TABLET WITH FOOD OR MILK NEEDED, ORALLY, BID NEEDED, 10 DAY(S), 20, REFILLS 0 REFILL TRAMADOL HCL TABLET, 50 MG, 1 TABLET NEEDED, ORALLY, Q6H PRN MDD4, 30 DAYS, 120, REFILLS 1 INCREASE TIZANIDINE HCL TABLET, 4 MG, 1 TAB, ORAL, Q8H TID, 30 DAYS, 90, REFILLS 1 NOTES: RIGHT L4-5L5-S1,RF, ISTOP REGISTRY REVIEWED AND DEMONSTRATES COMPLLIANCE. BRINGS IN MEDICATIONS WHICH IS APPROPRIATE FOR WHAT WAS DISPENSED. RECENT URINE TOXICOLOGY REVIEWED. NO UNAUTHORIZED MEDICATIONS. NO ILLICIT SUBSTANCES AND PRESCRIBED MEDICATIONS WERE PRESENT. , RISKS OF NARCOTIC/OPIOD MEDICATIONS INCLUDES BUT IS NOT LIMITED TO RISK OF DEPENDANCE/DEVELOPMENT OF ADDICTION, MOOD DISTURBANCE AND DEPRESSION, OSTEOPOROSIS, HORMONAL AND LABIDAL CHANGES, RESPIRATORY DEPRESSION AND . PATIENT IS ADVISED NOT TO DRIVE OR DRINK ALCOHOL WHILE ON THESE MEDICATIONS. PROCEDURE CODES FA211 ESTABILISHED PATIENT [facility] CHARGE DISPOSITION & COMMUNICATION FOLLOW UP POST (REASON: RIGHT L4-5L5-S1,RF) ELECTRONICALLY SIGNED BY PABLO KAM ON 12/05/2019 AT 09:42 AM EST DISCLAIMER : THIS IS A VISIT SUMMARY EXTRACTED FROM THE [employer] CHART. IT IS NOT A COPY OF THE [employer] PROGRESS NOTE. MTDD
== END ==
LOC: M PAIN 10:00
PROVIDERS: ATTEND Nurse Practitioner Family
DX: M47.816 Spondylosis without myelopathy or radiculopathy, lumbar region (principal); F32.9 Major depressive disorder, single episode, unspecified; E78.5 Hyperlipidemia, unspecified; K21.9 Gastro-esophageal reflux disease without esophagitis; E55.9 Vitamin D deficiency, unspecified; G47.33 Obstructive sleep apnea (adult) (pediatric); I25.10 Atherosclerotic heart disease of native coronary artery without angina pectoris; Z88.5 Allergy status to narcotic agent; Z88.8 Allergy status to other drugs, medicaments and biological substances; Z91.048 Other nonmedicinal substance allergy status; Z79.891 Long term (current) use of opiate analgesic; Z79.899 Other long term (current) drug therapy; Z79.82 Long term (current) use of aspirin

== ENCOUNTER 2019-11-30 13:19 | Emergency (ER) | payer MEDICAID, OTHER ==
[~2019-11-30 13:19] MED LIST changes: -CYCL10TA PO; -NAPR-837 PO
[2019-11-30] MEDS ORDERED: NAPROXEN 250 MG TAB PO ONE (14:15)
[2019-11-30] MEDS ORDERED: NAPR-837 PO (14:55)
[2019-11-30] MEDS ORDERED: CYCL10TA PO (14:55)
--- NOTE | 2019-11-30 15:08 | REP ---
THORACIC SPINE, AP AND LATERAL: AP and lateral views of the thoracic spine performed. No compression fracture is seen. There is normal alignment in thoracic kyphosis. There is mild diffuse spurring. There is mild diffuse disc space narrowing. Posterior elements are grossly intact. IMPRESSION: Mild diffuse degenerative changes without fracture or dislocation. Electronically Signed by Joaquin Romeo MD 11/30/2019 03:32 P
--- NOTE | 2019-11-30 15:10 | REP ---
LUMBOSACRAL SPINE: Five views of the lumbosacral spine performed. There is no compression fracture. There is normal lumbar lordosis. There is mild disc space narrowing and subchondral sclerosis at L5-S1. There is sclerosis and spurring at the facets at L4-5 and L5-S1. Posterior elements are intact. There is slight curvature toward the left. IMPRESSION: Degenerative changes without fracture or dislocation. Electronically Signed by Joaquin Romeo MD 11/30/2019 03:32 P
[2019-11-30 15:13] VITALS: BP 107/60
== END 2019-11-30 15:21 | disposition home or self-care (01) ==
LOC: EDBD 13:19 → M ED 13:19
DX: M54.5 Low back pain (principal); W19.XXXA Unspecified fall, initial encounter; Y92.099 Unspecified place in other non-institutional residence as the place of occurrence of the external cause; Y93.9 Activity, unspecified; Y99.9 Unspecified external cause status; M41.86 Other forms of scoliosis, lumbar region; M25.78 Osteophyte, vertebrae; M51.34 Other intervertebral disc degeneration, thoracic region; E11.9 Type 2 diabetes mellitus without complications; I10 Essential (primary) hypertension; K21.9 Gastro-esophageal reflux disease without esophagitis; E07.9 Disorder of thyroid, unspecified; Z87.891 Personal history of nicotine dependence; Z79.84 Long term (current) use of oral hypoglycemic drugs; Z79.899 Other long term (current) drug therapy; Z88.5 Allergy status to narcotic agent; Z91.89 Other specified personal risk factors, not elsewhere classified; Z91.040 Latex allergy status; Z91.018 Allergy to other foods

== ENCOUNTER → 2019-12-16 | Outpatient (REF) | payer OTHER ==
[~2019-12-16] MED LIST changes: +CYCL10TA PO; +ESCI10TA2 PO; +LEVO50TA5 PO; +NAPR-837 PO; +OXYC-517 PO
[2019-12-16 13:26] LABS: BASO % 0.4 % (0.0-1.0); EOS # 0.1 10^3/uL (0.0-0.5); EOS % 1.6 % (0.0-3.0); HEMATOCRIT 49.9 % (42.0-52.0); HEMOGLOBIN 16.2 g/dl (13.5-17.5); LYMPH # 1.6 10^3/uL (1.5-5.0); LYMPH % 22.6 % (24.0-44.0); MEAN CORPUSCULAR HEMOGLOBIN 30.3 pg (27.0-33.0); MEAN CORPUSCULAR HGB CONC 32.5 g/dl (32.0-36.5); MEAN CORPUSCULAR VOLUME 93.3 fl (80.0-96.0); MONO # 1.2 10^3/uL (0.0-0.8); MONO % 17.2 % (0.0-5.0); NEUTROPHILS # 4.1 10^3/uL (1.5-8.5); NEUTROPHILS % 58.1 % (36.0-66.0); PLATELET COUNT, AUTOMATED 257 10^3/uL (150-450); RED BLOOD COUNT 5.35 10^6/uL (4.30-6.10)
[2019-12-16 13:34] LABS: INR 1.04; PROTHROMBIN TIME 13.3 SECONDS (11.8-14.0)
[2019-12-16 13:51] LABS: HEMOGLOBIN A1c 6.1 %
[2019-12-16 13:55] LABS: ALBUMIN 3.7 GM/DL (3.2-5.2); ALT/SGPT 29 U/L (12-78); BILIRUBIN,TOTAL 0.4 MG/DL (0.2-1.0); BLOOD UREA NITROGEN 12 MG/DL (7-18); CALCIUM LEVEL 9.4 MG/DL (8.5-10.1); CARBON DIOXIDE LEVEL 30 MEQ/L (21-32); CHLORIDE LEVEL 107 MEQ/L (98-107); CREATININE FOR GFR 1.26 MG/DL (0.70-1.30); FREE T4 1.17 NG/DL (0.76-1.46); GLOMERULAR FILTRATION RATE > 60.0 (>56); GLUCOSE, FASTING 83 MG/DL (70-100); MAGNESIUM LEVEL 2.4 MG/DL (1.8-2.4); POTASSIUM SERUM 4.6 MEQ/L (3.5-5.1); SODIUM LEVEL 142 MEQ/L (136-145); TOTAL PROTEIN 7.2 GM/DL (6.4-8.2)
== END ==
LOC: M SFHCPLAZ 11:58
PROVIDERS: ATTEND Family Medicine
DX: I25.10 Atherosclerotic heart disease of native coronary artery without angina pectoris (principal); Z01.818 Encounter for other preprocedural examination

== ENCOUNTER 2019-12-18 16:50 | Emergency (ER) | payer OTHER ==
[~2019-12-18] VITALS: Ht 172.7 cm; Wt 132.8 kg
[~2019-12-18 16:50] MED LIST changes: -ESCI10TA2 PO; -LEVO50TA5 PO; -OXYC-517 PO
[2019-12-18] MEDS ORDERED: LEVO50TA5 PO (17:57)
[2019-12-18] MEDS ORDERED: IBUP-1022 PO (17:57)
[2019-12-18] MEDS ORDERED: ESCI10TA2 PO (17:57)
[2019-12-18] MEDS ORDERED: ESCI20TA PO (17:57)
[2019-12-18] MEDS ORDERED: LIDOCAINE 5% (LIDODERM) PATCH TD ONE (18:15)
[2019-12-18] MEDS ORDERED: traMADol 50 MG TAB PO ONE (18:15)
[2019-12-18 19:12] VITALS: BP 135/87
[2019-12-19] MEDS ORDERED: **NOTE PATIENT COMMENT** MISC XX ONE (06:15)
== END 2019-12-18 19:27 | disposition home or self-care (01) ==
LOC: M ED 18:20
DX: G89.29 Other chronic pain (principal); M54.5 Low back pain; Z95.1 Presence of aortocoronary bypass graft; Z79.899 Other long term (current) drug therapy; Z91.018 Allergy to other foods; Z91.040 Latex allergy status; Z91.89 Other specified personal risk factors, not elsewhere classified; Z88.5 Allergy status to narcotic agent

== ENCOUNTER 2019-12-20 12:09 | Day surgery (SDC) | payer OTHER ==
[~2019-12-20] VITALS: Ht 172.7 cm; Wt 130.2 kg
[~2019-12-20 12:09] MED LIST changes: +ESCI10TA2 PO; +LEVO50TA5 PO; +LIDOCAINE 1% MDV 20ML VIAL SQ PRN; +LR 1,000 ML IV SCH
[2019-12-20] MEDS ORDERED: LIDOCAINE 2% INJ 100 MG/5 ML SDV (FOR ANES.) As Ordered ONE (17:00)
[2019-12-20] MEDS ORDERED: propofoL 200 MG/20 ML VIAL As Ordered ONE (17:00)
[2019-12-20] MEDS ORDERED: ONDANSETRON 4MG/2ML VIAL (J2405) As Ordered ONE (17:00)
[2019-12-20] MEDS ORDERED: dexameTHASONE 4 MG/ML 1ML VIAL (J1100) As Ordered ONE (17:00)
[2019-12-20] MEDS ORDERED: ROCURONIUM BROMIDE 50 MG/5 ML VIAL As Ordered ONE (17:00)
[2019-12-20] MEDS ORDERED: fentaNYL 100 MCG/2 ML INJECTION (J3010) As Ordered ONE (17:59)
[2019-12-20] MEDS ORDERED: MIDAZOLAM INJ 2 MG/2 ML VIAL (J2250) As Ordered ONE (18:05)
[2019-12-20] MEDS ORDERED: BUPIVACAINE/EPIN 0.25% 30 ML VIAL As Ordered ONE (18:12)
[2019-12-20] MEDS ORDERED: SUGAMMADEX SODIUM 500 MG/5 ML VIAL (BRIDION) As Ordered ONE (18:29)
[2019-12-20] MEDS ORDERED: ACETAMINOPHEN 1000MG 100ML IV BTL (OFIRMEV) (J0131 PER 10MG) As Ordered ONE (18:32)
[2019-12-20] MEDS ORDERED: fentaNYL 100 MCG/2 ML INJECTION (J3010) IV PRN (19:00)
[2019-12-20] MEDS ORDERED: ONDANSETRON 4MG/2ML VIAL (J2405) IV PRN (19:00)
[2019-12-20] MEDS ORDERED: LR 1,000 ML IV SCH (19:00)
[2019-12-20] MEDS ORDERED: oxyCODONE 5MG TAB PO PRN ×3 (19:00→20:01)
[2019-12-20] MEDS ORDERED: ACETAMINOPHEN TAB 650MG DOSE (2X325MG) PO PRN (19:15)
[2019-12-20 20:30] VITALS: BP 146/96
[2019-12-20 20:33] VITALS: BP 137/77
[2019-12-20 21:00] VITALS: BP 137/77
[2019-12-20] MEDS ORDERED: tiZANidine 4 MG TAB PO ONE (21:00)
[2019-12-20] MEDS ORDERED: ESCITALOPRAM OXALATE 10 MG TAB (LEXAPRO) PO ONE (21:00)
[2019-12-20] MEDS ORDERED: GABAPENTIN 300 MG CAP PO ONE (21:00)
[2019-12-20] MEDS ORDERED: busPIRone 10 MG TAB PO ONE (21:00)
--- NOTE | 2019-12-20 21:52 | RO ---
DATE OF PROCEDURE: 12/20/2019 PREPROCEDURE DIAGNOSIS: Right cubital tunnel syndrome. POSTPROCEDURE DIAGNOSIS: Right cubital tunnel syndrome. PROCEDURE: Right open cubital tunnel release with anterior transposition. SURGEON: Jose De Jesus Scales MD LEAD COOK: ANESTHESIA: General. INDICATIONS: Patient failed nonoperative modes of treatment. We discussed the risks and benefits of surgical release, including, but not limited to, infection, damage to surrounding structures, incomplete relief. The patient wished to proceed. TOURNIQUET TIME: 13 minutes. COMPLICATIONS: None. PREOPERATIVE ANTIBIOTICS: None. BLOOD LOSS: Minimal. DESCRIPTION OF PROCEDURE: The patient was brought back to the operating room (OR) in the supine position, underwent general anesthesia at which point the right arm was prepped and draped in the usual fashion. We then had a time-out confirming the side, site and surgery. Once all in agreement, we injected 30 mL of 0.25% Marcaine with epinephrine under local anesthesia. We then made a longitudinal incision between the medial epicondyle and olecranon, at which point we sharply dissected through the subcutaneous tissue, careful to control superficial bleeding and monitoring for medial antebrachial cutaneous nerve. We then identified the ulnar nerve at the proximal extent of the incision anterior to the medial triceps. We then released it distally through Figueroa's ligament and through the superficial and deep fascia of the flexor carpi ulnaris (FCU), and proximally off the intermuscular septum. At which point, we ranged the elbow. It felt like the nerve started to sublux some, at which point we thoroughly neurolyzed the nerve and transposed it anteriorly, and closed Figueroa's ligament posteriorly with #3-0 Prolene. At which point, we ranged the elbow, the nerve did not want to sublux back into the groove, at which point we irrigated the wound thoroughly, closed with #3-0 Vicryl, #3-0 nylon, Adaptic gauze, Kerlix, Alan. Tourniquet was let down. The patient was awakened and taken to the post-anesthesia care unit (PACU) in stable condition. POSTOPERATIVE PLAN: The patient will work on pain control and range of motion. He will be seen in the office in 2 weeks for a repeat clinical check.
[2019-12-20 22:12] VITALS: BP 128/76
[2019-12-20 23:22] VITALS: BP 126/69
[2019-12-21] VITALS: BP 103/58
[2019-12-21 01:00] VITALS: BP 99/58
[2019-12-21 05:00] VITALS: BP 115/70
[2019-12-21] MEDS ORDERED: OXYC-517 PO (05:46)
[2019-12-21 10:00] VITALS: BP 115/70
== END 2019-12-21 13:00 | disposition home or self-care (01) ==
LOC: M SDC 12:09 → M MS5PR 20:18 → M SDC 12-21 13:00
PROVIDERS: ATTEND Orthopaedic Surgery Hand Surgery
DX: G56.21 Lesion of ulnar nerve, right upper limb (principal); I10 Essential (primary) hypertension; E78.5 Hyperlipidemia, unspecified; I25.10 Atherosclerotic heart disease of native coronary artery without angina pectoris; Z95.1 Presence of aortocoronary bypass graft; E03.9 Hypothyroidism, unspecified; K21.9 Gastro-esophageal reflux disease without esophagitis; M41.9 Scoliosis, unspecified; K74.60 Unspecified cirrhosis of liver; F41.9 Anxiety disorder, unspecified; F32.9 Major depressive disorder, single episode, unspecified; G47.30 Sleep apnea, unspecified; Z79.899 Other long term (current) drug therapy; Z88.5 Allergy status to narcotic agent; Z91.040 Latex allergy status
CPT/HCPCS: 64718; J0131; J1100; J2250; J2405; J3010

== ENCOUNTER 2020-01-04 17:37 | Emergency (ER) | payer MEDICAID, OTHER ==
[~2020-01-04] VITALS: Ht 172.7 cm; Wt 132.5 kg
[~2020-01-04 17:37] MED LIST changes: -LIDOCAINE 1% MDV 20ML VIAL SQ PRN; -LR 1,000 ML IV SCH; +OXYC-517 PO
[2020-01-04] MEDS ORDERED: METOCLOPRAMIDE INJ 10MG/2ML VIAL (J2765) IV ONE (18:15)
[2020-01-04] MEDS ORDERED: KETOROLAC 30 MG/ML VIAL (J1885) IV ONE (18:15)
[2020-01-04] MEDS ORDERED: NS 500 ML IV ONE (18:15)
[2020-01-04 18:36] LABS: BASO % 0.5 % (0.0-1.0); EOS # 0.1 10^3/uL (0.0-0.5); EOS % 1.2 % (0.0-3.0); HEMATOCRIT 46.7 % (42.0-52.0); LYMPH # 1.5 10^3/uL (1.5-5.0); LYMPH % 17.2 % (24.0-44.0); MEAN CORPUSCULAR HEMOGLOBIN 29.5 pg (27.0-33.0); MEAN CORPUSCULAR HGB CONC 32.1 g/dl (32.0-36.5); MEAN CORPUSCULAR VOLUME 91.7 fl (80.0-96.0); MONO # 1.1 10^3/uL (0.0-0.8); MONO % 12.3 % (0.0-5.0); NEUTROPHILS # 6.1 10^3/uL (1.5-8.5); NEUTROPHILS % 68.2 % (36.0-66.0); PLATELET COUNT, AUTOMATED 209 10^3/uL (150-450); RED BLOOD COUNT 5.09 10^6/uL (4.30-6.10); WHITE BLOOD COUNT 8.9 10^3/uL (4.0-10.0)
[2020-01-04 18:58] LABS: ALT/SGPT 25 U/L (12-78); BILIRUBIN,DIRECT < 0.1 MG/DL (0.0-0.2); BILIRUBIN,TOTAL 0.4 MG/DL (0.2-1.0); BLOOD UREA NITROGEN 9 MG/DL (7-18); CALCIUM LEVEL 8.7 MG/DL (8.5-10.1); CARBON DIOXIDE LEVEL 27 MEQ/L (21-32); CHLORIDE LEVEL 108 MEQ/L (98-107); CREATININE FOR GFR 1.47 MG/DL (0.70-1.30); GLOMERULAR FILTRATION RATE 53.6 (>56); GLUCOSE, FASTING 97 MG/DL (70-100); SODIUM LEVEL 141 MEQ/L (136-145); TOTAL PROTEIN 6.5 GM/DL (6.4-8.2)
[2020-01-04 19:44] VITALS: BP 146/78
== END 2020-01-04 19:55 | disposition home or self-care (01) ==
LOC: M ED 17:37
DX: R51 Headache (principal); R11.10 Vomiting, unspecified; R19.7 Diarrhea, unspecified; I25.10 Atherosclerotic heart disease of native coronary artery without angina pectoris; I10 Essential (primary) hypertension; K21.9 Gastro-esophageal reflux disease without esophagitis; Z87.442 Personal history of urinary calculi; Z95.2 Presence of prosthetic heart valve; Z79.899 Other long term (current) drug therapy; Z88.5 Allergy status to narcotic agent; Z91.040 Latex allergy status; Z91.89 Other specified personal risk factors, not elsewhere classified
CPT/HCPCS: 80048; 80076; 85025; 96361; 96374; 96375; 99284; J1885; J2765

== ENCOUNTER → 2020-01-10 | Outpatient (REF) | payer OTHER ==
[2020-01-10 13:31] LABS: BASO % 0.6 % (0.0-1.0); EOS # 0.1 10^3/uL (0.0-0.5); EOS % 1.5 % (0.0-3.0); HEMATOCRIT 47.1 % (42.0-52.0); HEMOGLOBIN 15.4 g/dl (13.5-17.5); LYMPH # 1.2 10^3/uL (1.5-5.0); LYMPH % 18.5 % (24.0-44.0); MEAN CORPUSCULAR HEMOGLOBIN 30.6 pg (27.0-33.0); MEAN CORPUSCULAR HGB CONC 32.7 g/dl (32.0-36.5); MEAN CORPUSCULAR VOLUME 93.5 fl (80.0-96.0); MONO # 0.9 10^3/uL (0.0-0.8); MONO % 13.7 % (0.0-5.0); NEUTROPHILS # 4.4 10^3/uL (1.5-8.5); NEUTROPHILS % 65.4 % (36.0-66.0); PLATELET COUNT, AUTOMATED 263 10^3/uL (150-450); RED BLOOD COUNT 5.04 10^6/uL (4.30-6.10); WHITE BLOOD COUNT 6.7 10^3/uL (4.0-10.0)
[2020-01-10 13:55] LABS: HEMOGLOBIN A1c 6.3 %
[2020-01-10 14:08] LABS: ALBUMIN 3.4 GM/DL (3.2-5.2); ALT/SGPT 31 U/L (12-78); BILIRUBIN,TOTAL 0.4 MG/DL (0.2-1.0); BLOOD UREA NITROGEN 9 MG/DL (7-18); CALCIUM LEVEL 8.9 MG/DL (8.5-10.1); CARBON DIOXIDE LEVEL 28 MEQ/L (21-32); CHLORIDE LEVEL 108 MEQ/L (98-107); CHOLESTEROL LEVEL 183 MG/DL (<200); CHOLESTEROL RISK RATIO 4.692 (<5); CREATININE FOR GFR 1.18 MG/DL (0.70-1.30); FREE T4 0.86 NG/DL (0.76-1.46); GLOMERULAR FILTRATION RATE > 60.0 (>56); GLUCOSE, FASTING 91 MG/DL (70-100); HDL CHOLESTEROL 39 MG/DL (>40); LDL CHOLESTEROL 84 MG/DL (<100); MAGNESIUM LEVEL 2.1 MG/DL (1.8-2.4); NON-HDL-C 144 MG/DL; POTASSIUM SERUM 4.4 MEQ/L (3.5-5.1); SODIUM LEVEL 141 MEQ/L (136-145); THYROID STIMULATING HORMONE 0.135 uIU/ML (0.358-3.740); TOTAL PROTEIN 6.7 GM/DL (6.4-8.2); TRIGLYCERIDES LEVEL 301 MG/DL (<150)
== END ==
LOC: M SFHCPLAZ 10:48
PROVIDERS: ATTEND Nurse Practitioner Family
DX: I10 Essential (primary) hypertension (principal); E03.9 Hypothyroidism, unspecified; R73.09 Other abnormal glucose; E78.5 Hyperlipidemia, unspecified

== ENCOUNTER → 2020-01-27 | Outpatient (CLI) | payer OTHER, MEDICAID ==
[~2020-01-27] MED LIST changes: +CYCL-707 PO; -CYCL10TA PO
[2020-01-27 18:10] LABS: BASO # 0.1 10^3/uL (0.0-0.2); BASO % 0.6 % (0.0-1.0); EOS # 0.1 10^3/uL (0.0-0.5); EOS % 0.7 % (0.0-3.0); HEMATOCRIT 48.9 % (42.0-52.0); HEMOGLOBIN 15.4 g/dl (13.5-17.5); LYMPH # 2.4 10^3/uL (1.5-5.0); LYMPH % 23.7 % (24.0-44.0); MEAN CORPUSCULAR HEMOGLOBIN 29.3 pg (27.0-33.0); MEAN CORPUSCULAR HGB CONC 31.5 g/dl (32.0-36.5); MONO % 9.8 % (0.0-5.0); NEUTROPHILS # 6.3 10^3/uL (1.5-8.5); NEUTROPHILS % 62.9 % (36.0-66.0); PLATELET COUNT, AUTOMATED 249 10^3/uL (150-450); RED BLOOD COUNT 5.26 10^6/uL (4.30-6.10); WHITE BLOOD COUNT 10.1 10^3/uL (4.0-10.0)
[2020-01-27 18:32] LABS: ERYTHROCYTE SEDIMENTATION RATE 3 mm/hr (0-20)
== END ==
LOC: M PLALAB 13:21
PROVIDERS: ATTEND Physician Assistant
DX: S93.421A Sprain of deltoid ligament of right ankle, initial encounter (principal); X58.XXXA Exposure to other specified factors, initial encounter; Y92.9 Unspecified place or not applicable

== ENCOUNTER → 2020-02-07 | Outpatient (CLI) | payer OTHER ==
--- NOTE | 2020-02-08 03:25 | REP ---
Clinical: Allergic rhinitis. Technique: Four views of the sinuses. Findings: The sinuses appear well-aerated and without significant mucosal thickening or fluid level. No foreign body. Osseous structures are intact. Impression: Normal sinus radiograph series. If the patient remains symptomatic consider maxillofacial CT for further investigation. Electronically Signed by Costa Meyers MD 02/08/2020 03:16 A
== END ==
LOC: M RAD 09:24
PROVIDERS: ATTEND Family Medicine
DX: J30.9 Allergic rhinitis, unspecified (principal)

== ENCOUNTER 2020-03-03 15:08 | Emergency (ER) | payer MEDICAID, OTHER ==
[~2020-03-03] VITALS: Ht 172.7 cm; Wt 136.2 kg
[~2020-03-03 15:08] MED LIST changes: +BUTA-199 PO; -BUTATAB6 PO; +ESCI10TA16 PO; -ESCI10TA2 PO; -ESCI20TA PO; +ESCI20TA16 PO; +GABA-282 PO; -GABA-843 PO; +OMEP-404 PO; +PANT40TA29 PO; -PANT40TA3 PO; -PX O20TA PO; +RISP-7 PO; +RISP-9 PO; -RISP0.5T3 PO; -RISP2TAB3 PO
[2020-03-03 15:54] LABS: BASO % 0.4 % (0.0-1.0); EOS # 0.1 10^3/uL (0.0-0.5); EOS % 0.7 % (0.0-3.0); HEMATOCRIT 47.1 % (42.0-52.0); HEMOGLOBIN 15.6 g/dl (13.5-17.5); LYMPH # 1.8 10^3/uL (1.5-5.0); LYMPH % 19.8 % (24.0-44.0); MEAN CORPUSCULAR HEMOGLOBIN 29.9 pg (27.0-33.0); MEAN CORPUSCULAR HGB CONC 33.1 g/dl (32.0-36.5); MEAN CORPUSCULAR VOLUME 90.4 fl (80.0-96.0); MONO % 10.9 % (0.0-5.0); NEUTROPHILS # 6.2 10^3/uL (1.5-8.5); NEUTROPHILS % 67.2 % (36.0-66.0); PLATELET COUNT, AUTOMATED 243 10^3/uL (150-450); RED BLOOD COUNT 5.21 10^6/uL (4.30-6.10); WHITE BLOOD COUNT 9.2 10^3/uL (4.0-10.0)
[2020-03-03] MEDS ORDERED: NITROGLYCERIN 0.4 MG SUBL TABLET As Ordered ONE (16:04)
[2020-03-03] MEDS ORDERED: NITROGLYCERIN 0.4 MG SUBL TABLET SL PRN (16:15)
[2020-03-03 18:09] LABS: INR 1.05; PROTHROMBIN TIME 13.4 SECONDS (11.8-14.0)
[2020-03-03 18:10] LABS: PARTIAL THROMBOPLASTIN TIME 29.7 SECONDS (25.0-38.4)
[2020-03-03 18:27] LABS: ALBUMIN 3.6 GM/DL (3.2-5.2); ALT/SGPT 32 U/L (12-78); BILIRUBIN,DIRECT 0.1 MG/DL (0.0-0.2); BILIRUBIN,TOTAL 0.4 MG/DL (0.2-1.0); BLOOD UREA NITROGEN 12 MG/DL (7-18); CALCIUM LEVEL 8.5 MG/DL (8.5-10.1); CARBON DIOXIDE LEVEL 25 MEQ/L (21-32); CHLORIDE LEVEL 108 MEQ/L (98-107); CK-MB VALUE MASS 2.9 NG/ML (<3.6); CPK CREATINE PHOSPHOKINASE 219 U/L (39-308); CREATININE FOR GFR 1.25 MG/DL (0.70-1.30); FREE T4 0.83 NG/DL (0.76-1.46); GLOMERULAR FILTRATION RATE > 60.0 (>56); GLUCOSE, FASTING 91 MG/DL (70-100); LIPASE 65 U/L (73-393); MB/CK RELATIVE INDEX 1.32 (< OR =4); POTASSIUM SERUM 3.9 MEQ/L (3.5-5.1); SODIUM LEVEL 140 MEQ/L (136-145); TOTAL PROTEIN 6.7 GM/DL (6.4-8.2); TROPONIN I < 0.02 NG/ML (< 0.10)
[2020-03-03] MEDS ORDERED: ISOVUE-370 76% 100ML VIAL As Ordered ONE ×2 (18:31→18:54)
--- NOTE | 2020-03-03 20:56 | REPVR ---
PROCEDURE INFORMATION: Exam: CT Chest Without Contrast Exam date and time: 03/03/2020 6:28 PM Age: 54 years old Clinical indication: Chest pain; Additional info: Chest pain, SOB TECHNIQUE: Imaging protocol: Computed tomography of the chest without contrast. 3D rendering: MIP and/or 3D reconstructed images were created by the technologist. Radiation optimization: All CT scans at this facility use at least one of these dose optimization techniques: automated exposure control; mA and/or kV adjustment per patient size (includes targeted exams where dose is matched to clinical indication); or iterative reconstruction. COMPARISON: CT ANGIO CHEST 08/23/2018 8:35 PM FINDINGS: Lungs: linear opacity right lung apex representing scar. Pleural space: Unremarkable. No pneumothorax. No pleural effusion. Heart: Calcification in the coronary arteries. Mediastinum: Surgical clips noted in the anterior mediastinal fat. Aorta: Unremarkable. No aortic aneurysm. Lymph nodes: Unremarkable. No enlarged lymph nodes. Liver: 5.9 cm cyst in the right lobe of the liver beneath the capsule. Spleen: 1 cm accessory spleen anterior to and above splenic hilum Bones/joints: There has been a median sternotomy. Soft tissues: Unremarkable. IMPRESSION: 1. No acute findings. 2. Liver cyst Electronically signed by: Lina Souza On 03/03/2020 20:55:45 PM
[2020-03-03 21:58] LABS: CK-MB VALUE MASS 2.6 NG/ML (<3.6); CPK CREATINE PHOSPHOKINASE 217 U/L (39-308); TROPONIN I < 0.02 NG/ML (< 0.10)
[2020-03-03 22:16] VITALS: BP 148/73
--- NOTE | 2020-03-04 08:24 | REP ---
CHEST, SINGLE VIEW: Single view of the chest is performed and compared to several prior studies, most recently 08/17/2019. There is some mild opacity along the right hemidiaphragm representing a small amount of atelectasis or infiltrate. Left lung is clear. Heart and mediastinum are unchanged. Sternal wires are present. IMPRESSION: I suspect a mild degree of atelectasis or infiltrate in the right lung base. Electronically Signed by Joaquin Romeo MD 03/04/2020 10:10 A
--- NOTE | 2020-03-04 19:46 | ECGEPIP ---
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
--- NOTE | 2020-03-04 19:49 | ECGEPIP ---
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
[2020-03-22] MEDS ORDERED: ESCI20TA16 PO (14:27)
[2020-06-12] MEDS ORDERED: ALBU8.5H INH (13:22)
[2020-07-04] MEDS ORDERED: MONT10TA10 PO (14:53)
[2020-07-11] MEDS ORDERED: CARA1TAB6 PO (08:45)
== END 2020-03-03 22:38 | disposition home or self-care (01) ==
LOC: EDBD 15:08 → M ED 15:08
DX: R07.89 Other chest pain (principal); R06.02 Shortness of breath; I25.10 Atherosclerotic heart disease of native coronary artery without angina pectoris; E78.5 Hyperlipidemia, unspecified; F33.9 Major depressive disorder, recurrent, unspecified; F41.9 Anxiety disorder, unspecified; K21.9 Gastro-esophageal reflux disease without esophagitis; K76.0 Fatty (change of) liver, not elsewhere classified; G47.33 Obstructive sleep apnea (adult) (pediatric); Z79.899 Other long term (current) drug therapy; Z79.890 Hormone replacement therapy; Z88.5 Allergy status to narcotic agent; Z91.040 Latex allergy status; Z91.048 Other nonmedicinal substance allergy status
CPT/HCPCS: 36415; 71045; 71250; 80048; 80076; 82550; 82553; 83690; 84439; 84443; 85025; 85610; 85730; 93005; 93041; 94760; 99285; Q9967

== ENCOUNTER → 2020-03-12 | Outpatient (CLI) | payer OTHER ==
[~2020-03-12] MED LIST changes: -BUTA-199 PO; +BUTATAB6 PO; -ESCI10TA16 PO; +ESCI10TA2 PO; +ESCI20TA PO; -ESCI20TA16 PO; -GABA-282 PO; +GABA-843 PO; -OMEP-404 PO; -PANT40TA29 PO; +PANT40TA3 PO; +PX O20TA PO; -RISP-7 PO; -RISP-9 PO; +RISP0.5T3 PO; +RISP2TAB3 PO
--- NOTE | 2020-03-13 23:40 | ECWPNPC ---
PATIENT NAME: DEANNA AN : 1965 GENDER: MALE VISIT DATE: 03/12/2020 DISCHARGE DATE: 03/12/20 1144 VISIT LOCKED DATE TIME: PHYSICIAN: MINA HAYWOOD RESOURCE: MINA HAYWOOD REASON FOR APPOINTMENT 1. WANTS PROC HISTORY OF PRESENT ILLNESS GENERAL: HERE FOR FOLLOW-UP OF CHRONIC LOW BACK PAIN. REPORTING INCREASE IN LOW BACK PAIN, RIGHT GREATER THAN LEFT. HAS HAD TO MISS RADIOFREQUENCY APPOINTMENT ON SEVERAL OCCASIONS DUE TO COVID 19. DISCUSSED TREATMENT PLAN. -. FALL RISK SCREENING: SCREENING :NO FALLS REPORTED IN THE LAST YEAR PAIN SCREENING: PATIENT HAS A COMPLAINT OF ACUTE OR CHRONIC PAIN :YES 03/12/20 INTENSITY OF PAIN (SCALE OF 1 TO 10):7 WHAT DOES YOUR PAIN FEEL LIKE:SHARP PAIN IS INCREASED BY: WALKING PAIN IS DECREASED BY: MEDS, HEAT NURSING NOTE: -. PAIN CENTER INTAKE QUESTIONS: DO YOU HAVE A HISTORY OF MRSA? :NO DO YOU TAKE A BLOOD THINNERS? :NO DO YOU HAVE ANY BLEEDING DISORDERS? :NO ANY NEW NUMBNESS OR WEAKNESS IN YOUR LEGS OR ARMS? :NO ANY PACEMAKER,DEFIBRILLATOR, OR DORSAL COLUMN STIMULATOR? :NO DO YOU HAVE ANY RASHES OR OPEN SORES? :YES RASH TO LEFT ELBOW X 1 WEEK, HAS MEDS FOR THIS ARE YOU ALLERGIC TO IV DYE? :NO ARE YOU DIABETIC? :NO ANY NEW PROBLEMS WITH YOUR MEDICATIONS? :NO HAVE YOU RECEIVED A VACCINE IN THE PAST 30 DAYS? :NO DO YOU PLAN TO RECEIVE A VACCINE IN THE NEXT 21 DAYS? :NO DO YOU NEED ANY PRESCRIPTION? :NO DO YOU TAKE ANY IMMUNOSUPPRESSIVE MEDICATIONS? :NO CURRENT MEDICATIONS TAKING BETAMETHASONE DIPROPIONATE AUG 0.05 % OINTMENT 1 APPLICATION TO AFFECTED AREA EXTERNALLY BID TO RASH ON ELBOW TAKING DAPSONE 25 MG TABLET 1 TABLET ORALLY ONCE A DAY TAKING ESCITALOPRAM OXALATE 10 MG TABLET 1 TABLET ORAL ONCE A DAY ALONG WITH A 20 MG TABLET TAKING SUCRALFATE 1 GM TABLET TAKE ONE TABLET BY MOUTH FOUR TIMES DAILY AFTER MEALS ORAL TAKING VENTOLIN HFA 108 (90 BASE) MCG/ACT AEROSOL SOLUTION INHALE TWO PUFFS BY MOUTH EVERY FOUR HOURS NEEDED INHALATION - TAKING ACETAMINOPHEN 500 MG CAPSULE 2 CAPSULE ORALLY EVERY 8 HRS NEEDED FOR PAIN TAKING ESCITALOPRAM OXALATE 20 MG TABLET 1 TABLET ORALLY ONCE A DAY TAKING BUSPIRONE HCL 10 MG TABLET TAKE ONE TABLET BY MOUTH @8AM AND TAKE ONE TABLET @8PM ORAL TAKING FISH OIL + D3 [id number] MG-UNIT CAPSULE 1 CAPSULE ORALLY BID OTC TAKING MULTIVITAMIN ADULT - TABLET DIRECTED ORALLY TAKING OMEPRAZOLE 40 MG CAPSULE DELAYED RELEASE TAKE ONE CAPSULE BY MOUTH @8AM ON AN EMPTY STOMACH ORAL TAKING TRIHEXYPHENIDYL HCL 2 MG TABLET TAKE ONE TABLET BY MOUTH TWICE DAILY ORALLY BID TAKING VITAMIN D 1000 UNIT TABLET 1 TABLET ORALLY ONCE A DAY TAKING HYDROCORTISONE 1 % CREAM 1 APPLICATION RASH ONCE A DAY TAKING FAMOTIDINE 20 MG TABLET TAKE ONE TABLET BY MOUTH @8AM AND TAKE ONE TABLET BY MOUTH @8PM ORAL TAKING ONDANSETRON HCL 4 MG TABLET TAKE ONE TABLET BY MOUTH ONE TO TWO TIMES A DAY BEFORE MEALS, TAKE ONLY WHEN HAVING NAUSEA ORAL TAKING IBUPROFEN 600 MG TABLET 1 TABLET WITH FOOD OR MILK NEEDED ORALLY BID NEEDED TAKING METOPROLOL TARTRATE 25 MG TABLET 1/2 TAB ORAL DAILY TAKING ASPIRIN 81 MG TABLET CHEWABLE 1 TABLET ORALLY ONCE A DAY TAKING ATORVASTATIN CALCIUM 40 MG TABLET 1 TABLET ORALLY ONCE A DAY TAKING GABAPENTIN 600 MG TABLET TAKE ONE TABLET BY MOUTH @8AM AND TAKE ONE TABLET @12PM AND TAKE ONE TABLET @8PM ORAL Q8H TID TAKING CETIRIZINE HCL 10 MG TABLET 1 TABLET ORALLY ONCE A DAY TAKING TOPIRAMATE 50 MG TABLET 1 TABLET ORALLY ONCE A DAY TAKING LEVOTHYROXINE SODIUM 25 MCG TABLET 1 TABLET IN THE MORNING ON AN EMPTY STOMACH ORALLY ONCE A DAY, NOTES: DECREASE DOSE FROM 50MCG TAKING TRAMADOL HCL 50 MG TABLET 1 TABLET NEEDED ORALLY Q6H PRN MDD4 TAKING FLUTICASONE PROPIONATE 50 MCG/ACT SUSPENSION 1 SPRAY IN EACH NOSTRIL NASALLY BID TAKING OCEAN NASAL SPRAY 0.65 % SOLUTION 2 SPRAYS IN EACH NOSTRIL NEEDED NASALLY 4X DAILY TAKING SINGULAIR 10 MG TABLET 1 TABLET ORALLY AT BEDTIME TAKING TIZANIDINE HCL 4 MG TABLET 1 TAB ORAL Q8H TID TAKING MONTELUKAST SODIUM 10 MG TABLET 1 TABLET ORALLY ONCE A DAY TAKING TOPIRAMATE 25 MG TABLET 1 TABLET ORALLY ONCE A DAY TAKING TOPIRAMATE 50 MG TABLET 1 TABLET ORALLY ONCE A DAY MEDICATION LIST REVIEWED AND RECONCILED WITH THE PATIENT PAST MEDICAL HISTORY DEPRESSION/ANXIETY- DR LAWLER. /THERAPIST Q2 WEEKS HYPERLIPIDEMIA GERD WITH BARRETTS: REPEAT EGD IN 07/2018 VITAMIN D DEF FRAN: FOLLOWING WITH PULMONOLOGY: COMPLIANT WITH CPAP-PULMONOLOGY CAD: BYPASS WITH AUTOLOGOUS VEIN: DR. VALENCIA AT [facility] ECHO 10/17/2016. HYPERTENSIVE HEART DISEASE CARDIAC PET NUCLEAR STRESS 09/26/2016. LVEF 66% BACK PAIN HISTORY OF [place], MEASLES, MUMPS LYTIC LESION ADJACENT TO RT LOBE LIVER APPEARING WITHIN GB FOSSA: NO SURGICAL INTERVENTION IDICATED: DR. DOMINIQUE THYROID U/S 09/16 DIFFUSE HETEROGENEITY 2 6MM NODULES AT [facility]. - DR HERMILA RAUSCH CARDIAC CATH WITH CABG 11/13/2016 SPECT STRESS LVEF 55%, NO EVIDENCE OF ISCHEMI, LEFT VENTRICULAR DIALATION WITH STRESS 08/26/2017 EUS (ENDOSCOPIC U/S-DR. LE)-NO PANCREATIC MASS OR COMMON BILE DUCT STRICTURE HIDA SCAN-UNREMARKABLE 2017, NORMAL GB AND EF, HYPERTONIC SPHINCTER OF ODDI FATTY LIVER WITH FATTY PANCREAS COLONOSCOPY 2017 UPPER ENDOSCOPY 2018 GALLBLADDER U/S 04/23/18: FATTY INFILTRATE OF LIVER AND EXOPHYTIC CYST ON THE RIGHT LOBE. NO HEPATIC SOLID MASS OR BILLARY DILATATION. GALLBLADDER WITHOUT ACUTE FINDINGS ECHO: 12/20/17-NO SIGNIFICANT VALVULAR DISEASE, LEFT VENTRICULAR SYSTOLIC FUNCTION NORMAL, LEFT VENTRICULAR DIASTOLIC FUNCTION NORMAL, CONCENTRIC LEFT CENTRICULAR HYPERTROPHY MILD, HYPERTNESIVE HEART DISEASE MODERATE. MILDLY DILATED LEFT ATRIUM 4.3CM. MILDLY DILATED AORTIC ROOT AT 4.0CM. TRACE TO SMALL PERICARDAL EFFUSION NOTED POSTERIORLY IN LIMITED VIEWS, NO EVIDENCE OF CARDIAC TAMPONADE. LVEF 55-60% DERMATITIS HERPETIFORMIS CARPAL TUNNEL ALLERGIES CODEINE PHOSPHATE (FOR ALLERGIES USE ONLY): NAUSEA/VOMITING - SIDE EFFECTS LATEX (FOR ALLERGY USE ONLY): RASH - ALLERGY ADHESIVE TAPE: RASH - ALLERGY GLUTEN ALLERGY: RASH - ALLERGY SURGICAL HISTORY LEFT HAND, 5TH DIGIT, REMOVED TUMOR 1979 & 2016 TONSILLECTOMY CHILD COLONOSCOPY- INTERNAL HEMORRHOID, POLYP X 1- ADENOMATOUS 02/02/15 COLONOSCOPY - 2 TUBULAR ADENOMAS, MUCOSAL ULCERATION, MODERATE DIVERTICULOSIS IN THE SIGMOID COLON, EXTERNAL HEMORRHOIDS. SIGMOIDOSCOPY DUE 10/2018, REPEAT COLONOSCOPY 5 YRS 10/13/17 EGD- [facility] 02/02/15 HEMORRHOIDECTOMY 4-6-16 LEFT FOOT BUNIONECTOMY WITH FIRST METATARSAL OSTEOSTOMY-DR. IRIZARRY 03/31/16 CABG- 4 VESSEL AT [facility] 11/11/16 LEFT HAND CP SX, AND TENDON REMOVAL. [facility] 01/2018 UPPER ENDOSCOPIC ULTRASOUND WITH ANESTHESIA 07/2018 WIRES REMOVED FROM CHEST 09/29/2018 HAMMER TOE, LEFT FOOT, DR. IRIZARRY 03/30/19 EGD-DR. BEGUM 01/2019 [place] 03/2019 RIGHT HAND TRIGGER AND CARPEL TUNNEL FAMILY HISTORY FATHER: 79 YRS, [place], HTN, DIAGNOSED WITH HYPERTENSION, UNSPECIFIED HEART DISEASE IN 62 MOTHER: ALIVE 66 YRS, HTN, HYPERTENSION, UNSPECIFIED HEART DISEASE 1 BROTHER(S) , 1 SISTER(S) - HEALTHY. 3 HALF BROTHER, 1 HALF SISTER-HEALTHY, NO KNOWN FAMILY HISTORY OF ANY UROLOGICALLY RELATED DISEASES CANCERS. DENIES ANY FAMILY HX SKIN CANCER OR PANCREATIC CANCER. SOCIAL HISTORY GENERAL: TOBACCO USE ARE YOU A:FORMER SMOKER HOW LONG HAS IT BEEN SINCE YOU LAST SMOKED?5-10 YEARS LATEX QUESTIONNAIRE LATEX ALLERGY : HAVE YOU EVER DEVELOPED ANY TYPE OF REACTION AFTER HANDLING LATEX PRODUCTS SUCH RUBBER GLOVES, CONDOMS, DIAPHRAGMS, BALLOONS, SOCKS, OR UNDERWEAR?YES LATEX ALLERGY : HAVE YOU EVER DEVELOPED ANY TYPE OF REACTION DURING OR AFTER DENTAL APPOINTMENT, VAGINAL/RECTAL EXAMINATION, SURGICAL PROCEDURE, OR ANY OTHER EXPOSURE?NO - PLEASE INDICATE :RUBBER GLOVES, CONDOMS, BALLOONS RASH DATE ASKED : 12/30/2018 LATEX RISK : HAVE YOU EVER HAD ANY DIFFICULTY BREATHING OR HIVES AFTER EATING OR HANDLING ANY FRUITS, OR VEGETABLES; SUCH KIWI, BANANAS, STONE FRUITS, OR CHESTNUTSNO LATEX RISK : DO YOU HAVE A PREVIOUS PERSONAL HISTORY OF MORE THAN NINE SURGERIES, SPINA BIFIDA, OR REPEATED CATHERIZATIONS? NO LATEX RISK : ARE YOU FREQUENTLY EXPOSED TO LATEX PRODUCTS IN YOUR OCCUPATION?NO LUNG CANCER SCREENING SMOKING STATUS:FORMER SMOKER IS THE PATIENT BETWEEN THE AGE OF 57 AND 79?NO BMI CARE GOAL FOLLOW-UP ABOVE NORMAL BMI FOLLOW-UPDIETARY MANAGEMENT EDUCATION, GUIDANCE, AND COUNSELING ALCOHOL SCREENING DID YOU HAVE A DRINK CONTAINING ALCOHOL IN THE PAST YEAR?NO POINTS0 INTERPRETATIONNEGATIVE RECREATIONAL DRUG USE DRUG USE?NO CAFFEINE CAFFEINE USE?YES COFEE: 2 CUPS PER DAY SEXUAL HX HAD SEX IN THE LAST 12 MONTHS (VAGINAL, ORAL, OR ANAL)?: NO, HAVE YOU EVER HAD AN STD?: NO. HIV / HEP-C SCREENING HIV TEST OFFERED TO PATIENT:NO HEP-C TEST OFFERED TO PATIENT:NO MORMON [id number] JUDAISM LANGUAGE LANGUAGES SPOKEN:[place] EDUCATION 3RD GRADE. STATES IS ABLE TO READ NEWSPAPER. WRITES BUT SPELLING IS NOT GOOD.. LEARNING BARRIERS / SPECIAL NEEDS CHANGE FROM LAST VISIT?NO 06/10/2019 BARRIERS TO LEARNING?YES COMMENTS LEARNING DISABILITY HEARING IMPAIRED?NO VISION IMPAIRED?YES COGNITIVELY IMPAIRED?NO :CORRECTIVE LENSES READINESS TO LEARN?YES LEARNING PREFERENCES?NO LEARNING CAPABILITIES PRESENT?YES EMOTIONAL BARRIERS?NO SPECIAL DEVICES?NO COGENERATION TECHNICIAN NEEDED?NO DOMESTIC VIOLENCE DO YOU FEEL SAFE IN YOUR ENVIRONMENT?YES OCCUPATION: DISABLED, SSI. DIET: NO ADDED SALT, LOW FAT, LOW CHOLESTEROL. EXERCISE: NO REGULAR EXERCISE. MARITAL STATUS: SINGLE. PAIN CLINIC PFS, CLERGY, PUBLIC HEALTH REFERRALS HAS THE PATIENT BEEN EDUCATED REGARDING HIS/HER PLAN OF CARE?YES HAS THE PATIENT BEEN EDUCATED REGARDING PAIN, THE RISK FOR PAIN, THE IMPORTANCE OF EFFECTIVE PAIN MANAGEMENT, AND THE PAIN ASSESSMENT PROCESS?YES HOUSING: RENTS APARTMENT. ADVANCE DIRECTIVE ADVANCE DIRECTIVE DISCUSSED WITH PATIENT:YES PT DOES NOT HAVE ANY ADVANCED DIREDTIVES AND HE DECLINES INFORMATION ON HCP AT THIS TIME. REVIEWED WITH PT 05/14/18 0915 LAS09/01/18 1149 REVIEWED WITH PT. ADREVIEWED WITH PATIENT 01/13/19 1455 JSREVIEWED WITH PATIENT 05/16/19 0829 LAS. HOSPITALIZATION/MAJOR DIAGNOSTIC PROCEDURE [facility]- DEPRESSION/ANXIETY 14 YO HOUSE OF [facility]- [place]- [facility]PRESSION 18 [facility] OF DEPRESSION. [age]YO HEMORRHOIDECTOMY WITH REMOVAL OF A MIXED HEMORRHOIDAL BUNDLES AT THE LEFT LATERAL AND RIGHT ANTERIOR AND POSTERIOR POSITIONS. 01/11/2016 CABG: [facility] 11/11/16 [facility] 11/21 REVIEW OF SYSTEMS CONSTITUTIONAL: ANY RECENT FEVER OR ILLNESS NO . CHILLS NO . GASTROENTEROLOGY: BOWEL INCONTINENCE NO . ANY NEW CHANGE IN BOWEL CONTROL? NO . ABDOMINAL PAIN NO . CONSTIPATION NO . GENITOURINARY: ANY NEW CHANGE IN BLADDER CONTROL? NO . IS THERE A CHANCE YOU COULD BE ? NO . URINARY INCONTINENCE NO . CARDIOLOGY: CHEST PRESSURE NO . CHEST PAIN NO . RESPIRATORY: COUGH NO . SHORTNESS OF BREATH NO . VITAL SIGNS WT 295.8 LBS, HT 68 IN, BMI 44.97 INDEX, BP 123/79 MM HG, HR 71 /MIN, RR 20 /MIN, TEMP 98.2 F, OXYGEN SAT % 95%, SAFE IN ENV? (Y/N) Y, NA INITIALS SC 10:56, REVIEWED BY: EM. EXAMINATION GENERAL EXAMINATION: LUNGS: LUNG SOUNDS ARE CLEAR . HEART: HEART RATE REGULAR . MUSCULOSKELETAL:*, MUSCLE STRENGTH TESTING 5/5 BILATERAL LOWER EXTREMITIES., ,PALPATION: POSITIVE FOR PAIN OVER L/S SPINE. POSITIVE FOR PAIN OVER L/S PARSPINALS.SPECIFIC POINT TENDERNESS OVER BILAT L4/5-L5/S1 LUMBR FACETS WITH FACET LOADING R>L. DIAGNOSTIC TESTS REVIEWEDI LUMBAR SPINE 04/08/2018 . ASSESSMENTS SPONDYLOSIS OF LUMBAR REGION WITHOUT MYELOPATHY OR RADICULOPATHY - M47.816 (PRIMARY) TREATMENT SPONDYLOSIS OF LUMBAR REGION WITHOUT MYELOPATHY OR RADICULOPATHY NOTES: RIGHT L4-5, L5-S1 RADIOFREQUENCY. PROCEDURE CODES FA211 ESTABILISHED PATIENT [facility] CHARGE DISPOSITION & COMMUNICATION FOLLOW UP POST (REASON: RIGHT L4-5, L5-S1 RADIOFREQUENCY) ELECTRONICALLY SIGNED BY PABLO KAM ON 03/13/2020 AT 03:03 PM EDT DISCLAIMER : THIS IS A VISIT SUMMARY EXTRACTED FROM THE [facility] CHART. IT IS NOT A COPY OF THE [facility] PROGRESS NOTE. GERALD
== END ==
LOC: M PAIN 10:30
PROVIDERS: ATTEND Nurse Practitioner Family
DX: M47.816 Spondylosis without myelopathy or radiculopathy, lumbar region (principal)

== ENCOUNTER 2020-03-22 14:16 | Emergency (ER) | payer MEDICAID, OTHER ==
[~2020-03-22] VITALS: Ht 172.7 cm; Wt 133.6 kg
[~2020-03-22 14:16] MED LIST changes: +OMEP-404 PO; +PANT40TA29 PO; -PANT40TA3 PO; -PX O20TA PO
[2020-03-22] MEDS ORDERED: ESCI20TA PO (14:27)
[2020-03-22] MEDS ORDERED: LIDOCAINE 5% (LIDODERM) PATCH TD ONE (15:00)
[2020-03-22] MEDS ORDERED: KETOROLAC 30 MG/ML 1ML VIAL IM ONE (15:00)
[2020-03-22] MEDS ORDERED: methocarbamoL 750 MG TAB PO ONE (15:00)
[2020-03-22 16:47] VITALS: BP 129/81
[2020-03-22] MEDS ORDERED: **NOTE PATIENT COMMENT** MISC XX SCH (21:00)
[2020-07-11] MEDS ORDERED: CARA1TAB6 PO (08:45)
== END 2020-03-22 17:04 | disposition home or self-care (01) ==
LOC: M ED 14:16
DX: M54.9 Dorsalgia, unspecified (principal); I10 Essential (primary) hypertension; E03.9 Hypothyroidism, unspecified; Z79.899 Other long term (current) drug therapy; Z88.5 Allergy status to narcotic agent; Z91.040 Latex allergy status; Z91.048 Other nonmedicinal substance allergy status
CPT/HCPCS: 96372; 99284; J1885

== ENCOUNTER 2020-04-10 13:21 | Emergency (ER) | payer MEDICAID, OTHER ==
[~2020-04-10 13:21] MED LIST changes: +ESCI20TA; -OMEP-404 PO; -PANT40TA29 PO; +PANT40TA3 PO; +PX O20TA PO
[2020-04-10] MEDS ORDERED: ASPIRIN 81 MG CHEW TABLET PO ONE (14:00)
[2020-04-10] MEDS ORDERED: NITROGLYCERIN 0.4 MG SUBL TABLET SL STA (14:01)
[2020-04-10 14:34] LABS: BASO % 0.6 % (0.0-1.0); EOS # 0.1 10^3/uL (0.0-0.5); EOS % 1.5 % (0.0-3.0); HEMATOCRIT 44.4 % (42.0-52.0); HEMOGLOBIN 14.3 g/dl (13.5-17.5); LYMPH # 1.6 10^3/uL (1.5-5.0); MEAN CORPUSCULAR HEMOGLOBIN 29.6 pg (27.0-33.0); MEAN CORPUSCULAR HGB CONC 32.2 g/dl (32.0-36.5); MEAN CORPUSCULAR VOLUME 91.9 fl (80.0-96.0); MONO # 0.8 10^3/uL (0.0-0.8); MONO % 14.7 % (0.0-5.0); NEUTROPHILS # 2.8 10^3/uL (1.5-8.5); NEUTROPHILS % 52.6 % (36.0-66.0); PLATELET COUNT, AUTOMATED 230 10^3/uL (150-450); RED BLOOD COUNT 4.83 10^6/uL (4.30-6.10); WHITE BLOOD COUNT 5.2 10^3/uL (4.0-10.0)
[2020-04-10 14:45] LABS: INR 1.05; PROTHROMBIN TIME 13.4 SECONDS (11.8-14.0)
[2020-04-10 14:46] LABS: PARTIAL THROMBOPLASTIN TIME 29.5 SECONDS (25.0-38.4)
[2020-04-10 14:50] VITALS: BP 127/58
[2020-04-10] MEDS ORDERED: NS 500 ML IV ONE (15:45)
[2020-04-10 16:12] LABS: ALBUMIN 3.3 GM/DL (3.2-5.2); ALT/SGPT 27 U/L (12-78); BILIRUBIN,DIRECT 0.1 MG/DL (0.0-0.2); BILIRUBIN,TOTAL 0.3 MG/DL (0.2-1.0); BLOOD UREA NITROGEN 10 MG/DL (7-18); CALCIUM LEVEL 8.4 MG/DL (8.5-10.1); CARBON DIOXIDE LEVEL 22 MEQ/L (21-32); CHLORIDE LEVEL 113 MEQ/L (98-107); CPK CREATINE PHOSPHOKINASE 268 U/L (39-308); CREATININE FOR GFR 1.14 MG/DL (0.70-1.30); FREE T4 0.78 NG/DL (0.76-1.46); GLOMERULAR FILTRATION RATE > 60.0 (>56); GLUCOSE, FASTING 81 MG/DL (70-100); LIPASE 78 U/L (73-393); MB/CK RELATIVE INDEX 1.12 (< OR =4); POTASSIUM SERUM 4.3 MEQ/L (3.5-5.1); SODIUM LEVEL 142 MEQ/L (136-145); TOTAL PROTEIN 6.3 GM/DL (6.4-8.2); TROPONIN I < 0.02 NG/ML (< 0.10)
[2020-04-10] MEDS ORDERED: ISOVUE-370 76% 100ML VIAL As Ordered ONE (16:54)
--- NOTE | 2020-04-10 17:45 | REPVR ---
PROCEDURE INFORMATION: Exam: CT Abdomen And Pelvis With Contrast Exam date and time: 04/10/2020 5:08 PM Age: 54 years old Clinical indication: Abdominal pain; Generalized; Additional info: General abdominal pain TECHNIQUE: Imaging protocol: Computed tomography of the abdomen and pelvis with intravenous contrast. Radiation optimization: All CT scans at this facility use at least one of these dose optimization techniques: automated exposure control; mA and/or kV adjustment per patient size (includes targeted exams where dose is matched to clinical indication); or iterative reconstruction. Contrast material: ISOVUE 370; Contrast volume: 100 ml; Contrast route: INTRAVENOUS (IV); COMPARISON: No relevant prior studies available. FINDINGS: Lungs: Noncalcified lower lobe nodules measuring up to 3.8 mm in the left lower lobe, likely postinflammatory. No follow-up suggested based on Fleischner guidelines (lung rads 2). Liver: There is a diffuse decrease in hepatic parenchymal density, consistent with steatosis. 6 cm cyst projects off of the anterior inferior aspect of the right lobe of the liver adjacent to the gallbladder without complex features. No follow-up suggested. Gallbladder and bile ducts: There is dilatation of the common bile duct measuring up to 14 mm without evidence of any significant intrahepatic biliary dilatation. There is no obvious choledocholithiasis although further evaluation with MRCP suggested depending upon clinical evaluation. Pancreas: Normal. No ductal dilation. Spleen: Normal. No splenomegaly. Adrenals: Normal. No mass. Kidneys and ureters: Small nonobstructive calculi left kidney. Stomach and bowel: Unremarkable. No obstruction. No mucosal thickening. Appendix: No evidence of appendicitis. Intraperitoneal space: Unremarkable. No free air. No significant fluid collection. Vasculature: Unremarkable. No abdominal aortic aneurysm. Lymph nodes: Unremarkable. No enlarged lymph nodes. Bladder: Unremarkable as visualized. Reproductive: Unremarkable as visualized. Bones/joints: Moderate central spinal stenosis L4-L5 and mild central spinal stenosis L3-L4. Mild retrolisthesis of L2 on L3. Soft tissues: There is a small umbilical hernia. There is no evidence of incarceration. IMPRESSION: 1. There is a diffuse decrease in hepatic parenchymal density, consistent with steatosis. 2. 6 cm cyst projects off of the anterior inferior aspect of the right lobe of the liver adjacent to the gallbladder without complex features. No follow-up suggested. 3. Small nonobstructive calculi left kidney. 4. There is dilatation of the common bile duct measuring up to 14 mm without evidence of any significant intrahepatic biliary dilatation. There is no obvious choledocholithiasis although further evaluation with MRCP suggested depending upon clinical evaluation. Electronically signed by: Jarod Rahman On 04/10/2020 17:45:19 PM
--- NOTE | 2020-04-10 17:53 | REPVR ---
PROCEDURE INFORMATION: Exam: CT Angiography Chest With Contrast Exam date and time: 04/10/2020 5:08 PM Age: 54 years old Clinical indication: Shortness of breath; Chest pain; Additional info: Chest pain, SOB TECHNIQUE: Imaging protocol: Computed tomographic angiography of the chest with intravenous contrast. 3D rendering: MIP and/or 3D reconstructed images were created by the technologist. Radiation optimization: All CT scans at this facility use at least one of these dose optimization techniques: automated exposure control; mA and/or kV adjustment per patient size (includes targeted exams where dose is matched to clinical indication); or iterative reconstruction. Contrast material: ISOVUE 370; Contrast volume: 100 ml; Contrast route: INTRAVENOUS (IV); COMPARISON: CT ANGIO CHEST 08/23/2018 8:35 PM FINDINGS: Pulmonary arteries: There are no pulmonary emboli. Aorta: There is fusiform dilatation of the ascending thoracic aorta which measures 3.9 cm. maximally. There is no dissection or saccular component. Lungs: Bibasilar atelectasis. No acute parenchymal infiltrates. Pleural space: Unremarkable. No pneumothorax. No pleural effusion. Heart: There is mild atherosclerotic calcification of the coronary arteries. Status post CABG. Lymph nodes: Unremarkable. No enlarged lymph nodes. Bones/joints: The spine demonstrates mild degenerative changes. Soft tissues: Unremarkable. IMPRESSION: 1. There is fusiform dilatation of the ascending thoracic aorta which measures 3.9 cm. maximally. There is no dissection or saccular component. 2. There are no pulmonary emboli. 3. No acute pulmonary parenchymal infiltrates. 4. Status post CABG. Electronically signed by: Jarod Rahman On 04/10/2020 17:52:58 PM
[2020-04-10 20:45] LABS: CK-MB VALUE MASS 3.1 NG/ML (<3.6); CPK CREATINE PHOSPHOKINASE 297 U/L (39-308); MB/CK RELATIVE INDEX 1.04 (< OR =4); TROPONIN I < 0.02 NG/ML (< 0.10)
[2020-04-10 21:16] VITALS: BP 125/71
--- NOTE | 2020-04-10 21:29 | ECGEPIP ---
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
--- NOTE | 2020-04-10 21:39 | ECGEPIP ---
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
--- NOTE | 2020-04-11 07:28 | REP ---
CHEST, TWO VIEWS: Two views of the chest are performed. There is no acute infiltrate. The heart and mediastinum are unchanged without significant cardiomegaly. Sternal wires are present as well as mediastinal clips. IMPRESSION: No acute infiltrate or pulmonary edema. Electronically Signed by Joaquin Romeo MD 04/12/2020 09:14 A
--- NOTE | 2020-04-12 15:24 | ED PDOC ---
Post-Departure Follow-Up guerrero osborn faxed formal report of cta chest for fu Yoshi Robles MD Apr 12, 2020 15:24
== END 2020-04-10 21:34 | disposition home or self-care (01) ==
LOC: M ED 13:21 → EDBD 13:21 → M ED 21:34
DX: R07.9 Chest pain, unspecified (principal); R00.1 Bradycardia, unspecified; R91.8 Other nonspecific abnormal finding of lung field; R93.2 Abnormal findings on diagnostic imaging of liver and biliary tract; N20.0 Calculus of kidney; I25.10 Atherosclerotic heart disease of native coronary artery without angina pectoris; K21.9 Gastro-esophageal reflux disease without esophagitis; F32.9 Major depressive disorder, single episode, unspecified; F41.9 Anxiety disorder, unspecified; M54.9 Dorsalgia, unspecified; Z95.1 Presence of aortocoronary bypass graft; Z87.891 Personal history of nicotine dependence; Z79.899 Other long term (current) drug therapy; Z91.89 Other specified personal risk factors, not elsewhere classified; Z91.040 Latex allergy status; Z88.5 Allergy status to narcotic agent
CPT/HCPCS: 71046; 71275; 74177; 80048; 80076; 82550; 82553; 83690; 84439; 84443; 85025; 85610; 85730; 93005; 93041; 94760; 96360; 99285; Q9967

== ENCOUNTER → 2020-04-12 | Outpatient (REF) | payer OTHER ==
[~2020-04-12] MED LIST changes: +ALBU8.5H; +CARA1TAB6 PO; -ESCI20TA; +FAMO20TA5 PO; +HYDR1CRE2; +LIDO1.1P TOP; +MONT10TA4 PO; +OMEP-404 PO; +PANT40TA29 PO; -PANT40TA3 PO; -PX O20TA PO; +TOPI25TA10 PO; +TYLENOL ES; +ULTR50TA8 PO; +UREA20CR4
== END ==
LOC: M LAB REF 10:17
PROVIDERS: ATTEND Podiatrist Foot & Ankle Surgery
DX: L03.032 Cellulitis of left toe (principal)

== ENCOUNTER → 2020-04-13 | Outpatient (CLI) | payer OTHER | LOC: M LABSMTC 13:48 | PROVIDERS: ATTEND Anesthesiology | DX: Z01.818 Encounter for other preprocedural examination (principal); Z11.59 Encounter for screening for other viral diseases | CPT/HCPCS: C9803; U0003 ==

== ENCOUNTER → 2020-04-17 | Outpatient (CLI) | payer OTHER ==
[~2020-04-17] MED LIST changes: +BUPIVACAINE HCL 0.25% 30ML VIAL As Ordered ONE; +ISOVUE-M 300 61% 15ML VIAL As Ordered ONE; +LIDOCAINE 1% SDV 30ML VIAL As Ordered ONE; +dexameTHASONE 10MG/1ML VIAL PRES.FREE (J1100 PER 1MG) As Ordered ONE
--- NOTE | 2020-04-18 01:24 | ECWPNPC ---
PATIENT NAME: DEANNA AN : 1965 GENDER: MALE VISIT DATE: 04/17/2020 DISCHARGE DATE: 04/17/20 1552 VISIT LOCKED DATE TIME: PHYSICIAN: CATRACHITA WILLIAMSON MD RESOURCE: CATRACHITA WILLIAMSON MD REASON FOR APPOINTMENT 1. RT L4/L5 L5/S1 STANDARD RF HISTORY OF PRESENT ILLNESS GENERAL: -. FALL RISK SCREENING: SCREENING :NO FALLS REPORTED IN THE LAST YEAR PAIN SCREENING: PATIENT HAS A COMPLAINT OF ACUTE OR CHRONIC PAIN :YES LOCATION OF PAIN:LOW BACK RIGHT SIDE LOW BACK INTENSITY OF PAIN (SCALE OF 1 TO 10):8 WHAT DOES YOUR PAIN FEEL LIKE:BURNING, CONTINOUS, SHARP DURATION:CONTINOUS PAIN IS INCREASED BY:OTHERS LYING DOWN PAIN IS DECREASED BY: NOTHING HELPS RIGHT NOW NURSING NOTE: -. PAIN CENTER INTAKE QUESTIONS: DO YOU HAVE A HISTORY OF MRSA? :NO DO YOU TAKE A BLOOD THINNERS? :NO DO YOU HAVE ANY BLEEDING DISORDERS? :NO ANY NEW NUMBNESS OR WEAKNESS IN YOUR LEGS OR ARMS? :NO ANY PACEMAKER,DEFIBRILLATOR, OR DORSAL COLUMN STIMULATOR? :NO DO YOU HAVE ANY RASHES OR OPEN SORES? :NO ARE YOU ALLERGIC TO IV DYE? :NO ARE YOU DIABETIC? :NO ANY NEW PROBLEMS WITH YOUR MEDICATIONS? :NO HAVE YOU RECEIVED A VACCINE IN THE PAST 30 DAYS? :NO DO YOU PLAN TO RECEIVE A VACCINE IN THE NEXT 21 DAYS? :NO DO YOU TAKE ANY IMMUNOSUPPRESSIVE MEDICATIONS? :NO ANY HISTORY OF SEIZURES? :NO ANY HISTORY OF CARDIAC ISSUES OR EVENTS? :YES CABG 2016 (4 VALVES) DO YOU HAVE SLEEP APNEA? :YES DO YOU WEAR A CPAP?YES ANY RECENT HEAD INJURY? :NO DO YOU HAVE ANY NEW INFECTIONS? :NO IS THERE A CHANCE YOU COULD BE ? :NO ARE YOU BREAST FEEDING? :NO WHEN DID YOU LAST EAT? : 04/16/20202099 WHEN DID YOU LAST DRINK? : 04/17/2020 0600 WHAT DID YOU LAST DRINK? : WATER NAME OF PERSON DRIVING YOU HOME? : MOTHER DO YOU HAVE ANY OTHER QUESTIONS OR CONCERNS? : - CURRENT MEDICATIONS TAKING BETAMETHASONE DIPROPIONATE AUG 0.05 % OINTMENT 1 APPLICATION TO AFFECTED AREA EXTERNALLY BID TO RASH ON ELBOW, NOTES: 1 WEEK AGO TAKING ESCITALOPRAM OXALATE 10 MG TABLET 1 TABLET ORAL ONCE A DAY ALONG WITH A 20 MG TABLET, NOTES: 04/16 2000 TAKING SUCRALFATE 1 GM TABLET TAKE ONE TABLET BY MOUTH FOUR TIMES DAILY AFTER MEALS ORAL , NOTES: 04/17 600 TAKING VENTOLIN HFA 108 (90 BASE) MCG/ACT AEROSOL SOLUTION INHALE TWO PUFFS BY MOUTH EVERY FOUR HOURS NEEDED INHALATION -, NOTES: 2 WEEKS AGO TAKING ACETAMINOPHEN 500 MG CAPSULE 2 CAPSULE ORALLY EVERY 8 HRS NEEDED FOR PAIN, NOTES: NONE RECENT TAKING ESCITALOPRAM OXALATE 20 MG TABLET 1 TABLET ORALLY ONCE A DAY, NOTES: 04/16 2000 TAKING BUSPIRONE HCL 10 MG TABLET TAKE ONE TABLET BY MOUTH @8AM AND TAKE ONE TABLET @8PM ORAL , NOTES: 04/17 600 TAKING FISH OIL + D3 [id number] MG-UNIT CAPSULE 1 CAPSULE ORALLY BID OTC, NOTES: 04/17 600 TAKING MULTIVITAMIN ADULT - TABLET DIRECTED ORALLY , NOTES: 04/17 600 TAKING OMEPRAZOLE 40 MG CAPSULE DELAYED RELEASE TAKE ONE CAPSULE BY MOUTH @8AM ON AN EMPTY STOMACH ORAL , NOTES: 04/17 600 TAKING TRIHEXYPHENIDYL HCL 2 MG TABLET TAKE ONE TABLET BY MOUTH TWICE DAILY ORALLY BID, NOTES: 04/17 600 TAKING VITAMIN D 1000 UNIT TABLET 1 TABLET ORALLY ONCE A DAY, NOTES: 04/17 600 TAKING HYDROCORTISONE 1 % CREAM 1 APPLICATION RASH ONCE A DAY, NOTES: 04/17 600 TAKING FAMOTIDINE 20 MG TABLET TAKE ONE TABLET BY MOUTH @8AM AND TAKE ONE TABLET BY MOUTH @8PM ORAL , NOTES: 04/17 600 TAKING ONDANSETRON HCL 4 MG TABLET TAKE ONE TABLET BY MOUTH ONE TO TWO TIMES A DAY BEFORE MEALS, TAKE ONLY WHEN HAVING NAUSEA ORAL , NOTES: 04/16 2000 TAKING IBUPROFEN 600 MG TABLET 1 TABLET WITH FOOD OR MILK NEEDED ORALLY BID NEEDED, NOTES: NONE RECENT TAKING METOPROLOL TARTRATE 25 MG TABLET 1/2 TAB ORAL DAILY, NOTES: 04/17 600 TAKING ASPIRIN 81 MG TABLET CHEWABLE 1 TABLET ORALLY ONCE A DAY, NOTES: 04/17 600 TAKING GABAPENTIN 600 MG TABLET TAKE ONE TABLET BY MOUTH @8AM AND TAKE ONE TABLET @12PM AND TAKE ONE TABLET @8PM ORAL Q8H TID, NOTES: 04/17 600 TAKING CETIRIZINE HCL 10 MG TABLET 1 TABLET ORALLY ONCE A DAY, NOTES: NONE RECENT TAKING TOPIRAMATE 50 MG TABLET 1 TABLET ORALLY ONCE A DAY, NOTES: 04/17 600 TAKING FLUTICASONE PROPIONATE 50 MCG/ACT SUSPENSION 1 SPRAY IN EACH NOSTRIL NASALLY BID, NOTES: 04/16 2000 TAKING OCEAN NASAL SPRAY 0.65 % SOLUTION 2 SPRAYS IN EACH NOSTRIL NEEDED NASALLY 4X DAILY, NOTES: 04/16 2000 TAKING SINGULAIR 10 MG TABLET 1 TABLET ORALLY AT BEDTIME, NOTES: 04/16 2000 TAKING TIZANIDINE HCL 4 MG TABLET 1 TAB ORAL Q8H TID, NOTES: 04/16 2000 TAKING MONTELUKAST SODIUM 10 MG TABLET 1 TABLET ORALLY ONCE A DAY, NOTES: 04/17 600 TAKING TOPIRAMATE 25 MG TABLET 1 TABLET ORALLY ONCE A DAY, NOTES: 04/16 2000 TAKING TRAMADOL HCL 50 MG TABLET 1 TABLET NEEDED ORALLY Q6H PRN MDD4, NOTES: 04/16 2000 TAKING LEVOTHYROXINE SODIUM 25 MCG TABLET 1 TABLET IN THE MORNING ON AN EMPTY STOMACH ORALLY ONCE A DAY, NOTES: 04/17 600 TAKING ATORVASTATIN CALCIUM 40 MG TABLET 1 TABLET ORALLY ONCE A DAY, NOTES: 04/17 600 NOT-TAKING DAPSONE 25 MG TABLET 1 TABLET ORALLY ONCE A DAY DISCONTINUED TOPIRAMATE 50 MG TABLET 1 TABLET ORALLY ONCE A DAY, NOTES: DUPLICATE MEDICATION LIST REVIEWED AND RECONCILED WITH THE PATIENT PAST MEDICAL HISTORY DEPRESSION/ANXIETY- DR LAWLER. /THERAPIST Q2 WEEKS HYPERLIPIDEMIA GERD WITH BARRETTS: REPEAT EGD IN 07/2018 VITAMIN D DEF FRAN: FOLLOWING WITH PULMONOLOGY: COMPLIANT WITH CPAP-PULMONOLOGY CAD: BYPASS WITH AUTOLOGOUS VEIN: DR. VALENCIA AT [facility] ECHO 10/17/2016. HYPERTENSIVE HEART DISEASE CARDIAC PET NUCLEAR STRESS 09/26/2016. LVEF 66% BACK PAIN HISTORY OF CHICKENPOX, MEASLES, MUMPS LYTIC LESION ADJACENT TO RT LOBE LIVER APPEARING WITHIN GB FOSSA: NO SURGICAL INTERVENTION IDICATED: DR. DOMINIQUE THYROID U/S 09/16 DIFFUSE HETEROGENEITY 2 6MM NODULES AT [facility]. - DR HERMILA RAUSCH CARDIAC CATH WITH CABG 11/13/2016 SPECT STRESS LVEF 55%, NO EVIDENCE OF ISCHEMI, LEFT VENTRICULAR DIALATION WITH STRESS 08/26/2017 EUS (ENDOSCOPIC U/S-DR. LE)-NO PANCREATIC MASS OR COMMON BILE DUCT STRICTURE HIDA SCAN-UNREMARKABLE 2017, NORMAL GB AND EF, HYPERTONIC SPHINCTER OF ODDI FATTY LIVER WITH FATTY PANCREAS COLONOSCOPY 2017 UPPER ENDOSCOPY 2018 GALLBLADDER U/S 04/23/18: FATTY INFILTRATE OF LIVER AND EXOPHYTIC CYST ON THE RIGHT LOBE. NO HEPATIC SOLID MASS OR BILLARY DILATATION. GALLBLADDER WITHOUT ACUTE FINDINGS ECHO: 12/20/17-NO SIGNIFICANT VALVULAR DISEASE, LEFT VENTRICULAR SYSTOLIC FUNCTION NORMAL, LEFT VENTRICULAR DIASTOLIC FUNCTION NORMAL, CONCENTRIC LEFT CENTRICULAR HYPERTROPHY MILD, HYPERTNESIVE HEART DISEASE MODERATE. MILDLY DILATED LEFT ATRIUM 4.3CM. MILDLY DILATED AORTIC ROOT AT 4.0CM. TRACE TO SMALL PERICARDAL EFFUSION NOTED POSTERIORLY IN LIMITED VIEWS, NO EVIDENCE OF CARDIAC TAMPONADE. LVEF 55-60% DERMATITIS HERPETIFORMIS CARPAL TUNNEL ALLERGIES CODEINE PHOSPHATE (FOR ALLERGIES USE ONLY): NAUSEA/VOMITING - SIDE EFFECTS LATEX (FOR ALLERGY USE ONLY): RASH - ALLERGY ADHESIVE TAPE: RASH - ALLERGY GLUTEN ALLERGY: RASH - ALLERGY SURGICAL HISTORY LEFT HAND, 5TH DIGIT, REMOVED TUMOR 1979 & 2016 TONSILLECTOMY CHILD COLONOSCOPY- INTERNAL HEMORRHOID, POLYP X 1- ADENOMATOUS 02/02/15 COLONOSCOPY - 2 TUBULAR ADENOMAS, MUCOSAL ULCERATION, MODERATE DIVERTICULOSIS IN THE SIGMOID COLON, EXTERNAL HEMORRHOIDS. SIGMOIDOSCOPY DUE 10/2018, REPEAT COLONOSCOPY 5 YRS 10/13/17 EGD- [facility] 02/02/15 HEMORRHOIDECTOMY 4-6- LEFT FOOT BUNIONECTOMY WITH FIRST METATARSAL OSTEOSTOMY-DR. IRIZARRY 03/31/16 CABG- 4 VESSEL AT [facility] 11/11/16 LEFT HAND CP SX, AND TENDON REMOVAL. [facility] 01/2018 UPPER ENDOSCOPIC ULTRASOUND WITH ANESTHESIA 07/2018 WIRES REMOVED FROM CHEST 09/29/2018 HAMMER TOE, LEFT FOOT, DR. IRIZARRY 03/30/19 EGD-DR. BEGUM 01/2019 [place] 03/2019 RIGHT HAND TRIGGER AND CARPEL TUNNEL FAMILY HISTORY FATHER: 79 YRS, [place], HTN, DIAGNOSED WITH HYPERTENSION, UNSPECIFIED HEART DISEASE IN 62 MOTHER: ALIVE 66 YRS, HTN, HYPERTENSION, UNSPECIFIED HEART DISEASE 1 BROTHER(S) , 1 SISTER(S) - HEALTHY. 3 HALF BROTHER, 1 HALF SISTER-HEALTHY, NO KNOWN FAMILY HISTORY OF ANY UROLOGICALLY RELATED DISEASES CANCERS. DENIES ANY FAMILY HX SKIN CANCER OR PANCREATIC CANCER. SOCIAL HISTORY GENERAL: TOBACCO USE ARE YOU A:FORMER SMOKER HOW LONG HAS IT BEEN SINCE YOU LAST SMOKED?5-10 YEARS LATEX QUESTIONNAIRE LATEX ALLERGY : HAVE YOU EVER DEVELOPED ANY TYPE OF REACTION AFTER HANDLING LATEX PRODUCTS SUCH RUBBER GLOVES, CONDOMS, DIAPHRAGMS, BALLOONS, SOCKS, OR UNDERWEAR?YES - PLEASE INDICATE :RUBBER GLOVES, CONDOMS, BALLOONS RASH LATEX ALLERGY : HAVE YOU EVER DEVELOPED ANY TYPE OF REACTION DURING OR AFTER DENTAL APPOINTMENT, VAGINAL/RECTAL EXAMINATION, SURGICAL PROCEDURE, OR ANY OTHER EXPOSURE?NO LATEX RISK : HAVE YOU EVER HAD ANY DIFFICULTY BREATHING OR HIVES AFTER EATING OR HANDLING ANY FRUITS, OR VEGETABLES; SUCH KIWI, BANANAS, STONE FRUITS, OR CHESTNUTSNO LATEX RISK : DO YOU HAVE A PREVIOUS PERSONAL HISTORY OF MORE THAN NINE SURGERIES, SPINA BIFIDA, OR REPEATED CATHERIZATIONS? NO LATEX RISK : ARE YOU FREQUENTLY EXPOSED TO LATEX PRODUCTS IN YOUR OCCUPATION?NO DATE ASKED : 04/17/2020 LUNG CANCER SCREENING SMOKING STATUS:FORMER SMOKER IS THE PATIENT BETWEEN THE AGE OF 57 AND 79?NO BMI CARE GOAL FOLLOW-UP ABOVE NORMAL BMI FOLLOW-UPDIETARY MANAGEMENT EDUCATION, GUIDANCE, AND COUNSELING ALCOHOL SCREENING DID YOU HAVE A DRINK CONTAINING ALCOHOL IN THE PAST YEAR?NO POINTS0 INTERPRETATIONNEGATIVE RECREATIONAL DRUG USE DRUG USE?NO CAFFEINE CAFFEINE USE?YES COFEE: 2 CUPS PER DAY SEXUAL HX HAD SEX IN THE LAST 12 MONTHS (VAGINAL, ORAL, OR ANAL)?: NO, HAVE YOU EVER HAD AN STD?: NO. HIV / HEP-C SCREENING HIV TEST OFFERED TO PATIENT:NO HEP-C TEST OFFERED TO PATIENT:NO GNOSTICIST [id number] JAINISM LANGUAGE LANGUAGES SPOKEN:CITIZEN OF [place] EDUCATION 3RD GRADE. STATES IS ABLE TO READ NEWSPAPER. WRITES BUT SPELLING IS NOT GOOD.. LEARNING BARRIERS / SPECIAL NEEDS CHANGE FROM LAST VISIT?NO 06/10/2019 BARRIERS TO LEARNING?YES COMMENTS LEARNING DISABILITY HEARING IMPAIRED?NO VISION IMPAIRED?YES COGNITIVELY IMPAIRED?NO :CORRECTIVE LENSES READINESS TO LEARN?YES LEARNING PREFERENCES?NO LEARNING CAPABILITIES PRESENT?YES EMOTIONAL BARRIERS?NO SPECIAL DEVICES?NO HEALTH UNIT SUPERVISOR NEEDED?NO DOMESTIC VIOLENCE DO YOU FEEL SAFE IN YOUR ENVIRONMENT?YES OCCUPATION: DISABLED, SSI. DIET: NO ADDED SALT, LOW FAT, LOW CHOLESTEROL. EXERCISE: NO REGULAR EXERCISE. MARITAL STATUS: SINGLE. PAIN CLINIC PFS, CLERGY, PUBLIC HEALTH REFERRALS HAS THE PATIENT BEEN EDUCATED REGARDING HIS/HER PLAN OF CARE?YES HAS THE PATIENT BEEN EDUCATED REGARDING PAIN, THE RISK FOR PAIN, THE IMPORTANCE OF EFFECTIVE PAIN MANAGEMENT, AND THE PAIN ASSESSMENT PROCESS?YES HOUSING: RENTS APARTMENT. ADVANCE DIRECTIVE ADVANCE DIRECTIVE DISCUSSED WITH PATIENT:YES PT DOES NOT HAVE ANY ADVANCED DIREDTIVES AND HE DECLINES INFORMATION ON HCP AT THIS TIME. REVIEWED WITH PT 05/14/18 0915 [facility]09/01/18 1149 REVIEWED WITH PT. ADREVIEWED WITH PATIENT 01/13/19 1455 JSREVIEWED WITH PATIENT 05/16/19 2172 LAS. HOSPITALIZATION/MAJOR DIAGNOSTIC PROCEDURE [facility] PSYCH ORIENT- DEPRESSION/ANXIETY 14 YO HOUSE OF KIRSTIN RAUSCH- [place]- DEPRESSION 18 YO FATHER SARITA QUINTERO- LOCKED FACILTY- TX OF DEPRESSION. [age]YO HEMORRHOIDECTOMY WITH REMOVAL OF A MIXED HEMORRHOIDAL BUNDLES AT THE LEFT LATERAL AND RIGHT ANTERIOR AND POSTERIOR POSITIONS. 01/11/2016 CABG: [facility] 11/11/16 [facility] 11/21 POST RIGHT HAND HAND AND ELBOW SURGERY 10/2019 VITAL SIGNS WT 292. LBS, HT 68 IN, BMI 44.39 INDEX, BP 116/65 MM HG, HR 79 /MIN, RR 20 /MIN, TEMP 97.5 F, OXYGEN SAT % 96%, SAFE IN ENV? (Y/N) YES, NA INITIALS SC 12:16, REVIEWED BY: TAINA. ASSESSMENTS SPONDYLOSIS OF LUMBAR REGION WITHOUT MYELOPATHY OR RADICULOPATHY - M47.816 (PRIMARY) SPONDYLOSIS WITHOUT MYELOPATHY OR RADICULOPATHY, LUMBOSACRAL REGION - M47.817 TREATMENT SPONDYLOSIS OF LUMBAR REGION WITHOUT MYELOPATHY OR RADICULOPATHY SMC FACET BLOCK (PAIN)[id number] PROCEDURES PAIN NURSING RECORD PRE-PROCEDURE IV SITE N/A PROCEDURE IN ROOM 1440, PHYSICIAN IN ROOM 1505, START 1508, FINISH 1527, PHYSICIAN OUT OF ROOM 1532, OUT OF ROOM 1544, STEROID DEXAMETHASONE, O2 RA, ECG NORMAL SINUS, PATIENT SHIELDED YES, SAFETY STRAP NO, PREP CHLOROPREP BY Casimiro ENRIQUE RN, IV INFUSED N/A, DRESSING TEGADERM BY DR WILLIAMSON LOC: JAILYN STANLEY 04/17/2020 2:49:45 PM > , 1. ALERT, ORIENTED RESP: JAILYN STANLEY 04/17/2020 2:49:48 PM > , 1. REGULAR, NO DYSPNEA COLOR: JAILYN STANLEY 04/17/2020 2:49:51 PM > , 1. PINK SKIN: JAILYN STANLEY 04/17/2020 2:49:55 PM > , 1. WARM, DRY POSITION: JAILYN STANLEY 04/17/2020 2:50:02 PM > , 1. PRONE VITALS: JAILYN STANLEY 04/17/2020 2:50:06 PM > 127/86-66-18-96% JAILYN STANLEY 04/17/2020 1500> 127/82-65-15-96% ADELINA STANLEY 04/17/2020 1515> 131/86-68-18-95% JAILYN STANLEY 04/17/2020 1530> 127/87-63-18-95% JAILYN STANLEY 04/17/2020 1545> 124/75-67-18-95% JAILYN STANLEY 04/17/2020 1548> 120/84-81-18-98% DISCHARGE: POST PAIN 0/10 RIGHT LOW BACK, DRESSING SITE DRY AND INTACT, IV N/A, GAIT STEADY, TEACHING COMPLETED, PATIENT ACKNOWLEDGES UNDERSTANDING YES, PATIENT DISCHARGED AT 1551 PN RADIOFREQUENCY DATE OF PROCEDURE 04/17/2020 THERMO LESION RADIOFREQUENCY > 80 DEGREES : STANDARD - THERMO LESION > 80*. CURVE NEEDLE SIDE: : RIGHT LEVELS: : L4-L5, L5-S1 NEEDLE/CATHETER/GAUGE: : 18 CANULA LENGTH: : 145 MM ACTIVE TIP: : 10 MM GROUNDING PAD PLACED ON AFFECTED SIDE (MUSCULAR AREA): : LUMBAR (POSTERIOR UPPER THIGH) RIGHT 1 ST LEVEL: : L3,INITAL POSTIVE SENSORY RESPONE (50 HZ) 0.2,MOTOR RESPONSE (2 HZ-UP TO 3 VOLTS) 3.0 ,PRE-LOCAL IMPEDENCE READING OHMS 217 ,POST-LOCAL IMPEDENCE READING OHMS 191 ,DURING RF IMPEDENCE READING OHMS 150 , 2 ND LEVEL: : L4,INITIAL POSITIVE SENSORY RESPONSE (50 HZ) 0.2,MOTOR RESPONSE (2 HZ- UP TO 3 VOLTS) 3.0 ,PRE-LOCAL IMPEDENCE READING OHMS 211 ,POST-LOCAL IMEPEDENCE READING OHMS 193 ,DURING RF IMPEDENCE READING OHMS 163 , 3 RD LEVEL: : L5,INITIAL POSITIVE SENSORY RESPONSE (50 HZ) 0.3,MOTOR RESPONSE (2HZ- UP TO 3 VOLTS) 3.0 ,PRE- LOCAL IMPEDENCE READING OHMS 166 ,POST-LOCAL IMPEDENCE READING OHMS 154 ,DURING RF IMPEDENCE READING OHMS 133 , PRE PROCEDURE DIAGNOSES 1. LUMBAR SPONDYLOSIS. 2. LUMBOSACRAL SPONDYLOSIS POST PROCEDURE DIAGNOSES 1. LUMBAR SPONDYLOSIS. 2. LUMBOSACRAL SPONDYLOSIS PROCEDURE RIGHT L4-L5 AND RIGHT L5-S1 LUMBAR FACET RADIOFREQUENCY SURGEON DR. CATRACHITA WILLIAMSON CSR TECHNICIAN NONE ANESTHESIA LOCAL PRE PROCEDURE REPORT THE PATIENT HAS HISTORY OF CHRONIC LOW BACK PAIN. I EVALUATED THE PATIENT AND REVIEWED THE CHART. I WENT OVER THE RISKS, ALTERNATIVES, AND BENEFITS ASSOCIATED WITH THIS PROCEDURE. I DISCUSSED THAT THE USE OF STEROIDS MAY CONTRIBUTE TO IMMUNOSUPPRESSION OF THE PATIENT'S BODY AGAINST INFECTIONS SUCH COVID-19. THE PATIENT IS AWARE OF THE POTENTIAL COMPLICATIONS ASSOCIATED WITH THIS VIRUS, INCLUDING, BUT NOT LIMITED TO, . THE PATIENT WOULD LIKE TO PROCEED AND GIVE CONSENT TO PERFORMED THE PROCEDURE. THE PATIENT DENIES UNEXPLAINABLE WEIGHT LOSS, FEVER, CHILLS, OR NEW CHANGES IN URINARY OR BOWEL CONTROL. THE PATIENT IS COVID-19 NEGATIVE DESCRIPTION OF PROCEDURE THE PATIENT WAS BROUGHT TO THE PROCEDURE ROOM AND PLACED IN THE PRONE POSITION. THE LUMBOSACRAL AREA WAS CLEANED WITH CHLORAPREP SOLUTION AND DRAPED ASEPTICALLY. THE PROCEDURE WAS DONE UNDER STERILE CONDITIONS. I CHECKED LATERALITY AND THE LEVEL WHERE THE PROCEDURE WAS GOING TO BE PERFORMED WITH THE PATIENT AND THE SUPPORTING STAFF AT THE MOMENT OF THE TIME OUT IN THE PROCEDURE ROOM. UNDER FLUOROSCOPIC GUIDANCE, TARGETS WERE SELECTED AT THE INTERSECTION OF THE RIGHT TRANSVERSE PROCESS OF L4, L5 AND ALA OF S1 WITH ITS RESPECTIVE SUPERIOR ARTICULAR PROCESS. LIDOCAINE WAS USED TO NUMB THE SKIN AND THE SUBCUTANEOUS TISSUE BELOW IT. RADIOFREQUENCY NEEDLES 22-GAUGE, 145 MM, LONG WITH 10 MM ACTIVE CURVE TIP WERE ADVANCED UNDER FLUOROSCOPIC GUIDANCE AND FOLLOWING PATIENT FEEDBACK UNTIL THE TARGET AREA WAS REACHED. POSITION OF THE NEEDLES WAS VERIFIED WITH AP AND LATERAL VIEWS. AFTER PROPER POSITION OF THE NEEDLE WAS ACHIEVED, WE WORKED WITH THE RIGHT SELECTED MEDIAN BRANCHES OF L3, L4 AND THE DORSAL RAMI OF L5. WE MEASURED THE CORRESPONDING IMPEDANCES, SENSORY STIMULATION AND MOTOR RESPONSES INDICATED IN THE RADIOFREQUENCY WORKSHEET. POSITION OF THE NEEDLES WAS VERIFIED AGAIN WITH AP AND LATERAL VIEWS. LIDOCAINE 1%, 2 ML, WAS INJECTED AT EACH LEVEL. RADIOFREQUENCY WAS DONE AT EACH LEVEL AT 80 DEGREES FOR 90 SECONDS. AFTER RADIOFREQUENCY WAS DONE, THE PATIENT RECEIVED BUPIVACAINE 0.125%, 1 ML, WITH DEXAMETHASONE 3 MG AT EACH SITE. THE MEDICATIONS WERE VERIFIED WITH THE NURSE. THERE WAS NO EVIDENCE OF BLOOD, PARESTHESIA OR CEREBROSPINAL FLUID DURING THE PROCEDURE. THE PATIENT WAS SENT TO THE RECOVERY ROOM. THE PATIENT WAS MOVING THE EXTREMITIES AND DOING WELL. THERE WAS NO COMPLICATION DURING THE PROCEDURE. ESTIMATED BLOOD LOSS WAS LESS THAN 5 ML. FLUOROSCOPY TIME WAS 33 SECONDS POST PROCEDURE NOTE THE PROCEDURE DONE WAS DISCUSSED WITH THE PATIENT. THE PATIENT WILL BE SEEN IN A FOLLOW UP IN THE NEXT FEW WEEKS. I AM LOOKING FOR LONG LASTING PAIN RELIEF FOR THE PATIENT WITH THIS INTERVENTION. INSTRUCTIONS WERE GIVEN, QUESTIONS WERE ANSWERED, AND THE PATIENT EXPRESSED UNDERSTANDING AND AGREES WITH THE PLAN. THE PATIENT IS AWARE TO STAY HOME FOR THE NEXT WEEK, IF POSSIBLE, DUE TO COVID-19. I, JOE VERA, DOCUMENTED THE ABOVE INFORMATION ACTING A SCRIBE FOR DR. WILLIAMSON. I HAVE REVIEWED THE ABOVE DOCUMENT, WRITTEN BY JOE VERA, RADIOLOGICAL TECHNICIAN, AND I VERIFY THAT IT IS ACCURATE PROCEDURE CODES 61781 DESTROY LUMB/SAC FACET JNT, [place]: [place] [address] DESTROY L/S FACET JNT ADDL, MODIFIERS: RT DISPOSITION & COMMUNICATION FOLLOW UP F/UP WITH DIRECTOR EMPLOYMENT (REASON: POST RT L4-L5, L5-S1 RF) ELECTRONICALLY SIGNED BY CATRACHITA WILLIAMSON MD, MD ON 04/17/2020 AT 05:19 PM EDT DISCLAIMER : THIS IS A VISIT SUMMARY EXTRACTED FROM THE [employer] CHART. IT IS NOT A COPY OF THE [employer] PROGRESS NOTE. GERALD
--- NOTE | 2020-04-18 05:35 | REP ---
C-ARM VIEWS LOWER LUMBAR SPINE: CLINICAL HISTORY: Pain. Three C-arm views lower lumbar spine performed during injection by Dr. Woo. [place] are seen along the lower lumbar spine. 33 seconds fluoroscopy time utilized. Electronically Signed by Joaquin Romeo MD 04/18/2020 11:12 P
== END ==
LOC: M PAIN 11:45
PROVIDERS: ATTEND Anesthesiology
DX: M47.816 Spondylosis without myelopathy or radiculopathy, lumbar region (principal); M47.817 Spondylosis without myelopathy or radiculopathy, lumbosacral region
CPT/HCPCS: 64635; 64636; J1100; Q9967

== ENCOUNTER 2020-04-18 09:05 | Emergency (ER) | payer OTHER ==
[~2020-04-18] VITALS: Ht 172.7 cm; Wt 131.5 kg
[~2020-04-18 09:05] MED LIST changes: -ALBU8.5H; -BUPIVACAINE HCL 0.25% 30ML VIAL As Ordered ONE; -CARA1TAB6 PO; +ESCI20TA; -FAMO20TA5 PO; -HYDR1CRE2; -ISOVUE-M 300 61% 15ML VIAL As Ordered ONE; -LIDO1.1P TOP; -LIDOCAINE 1% SDV 30ML VIAL As Ordered ONE; -MONT10TA4 PO; -OMEP-404 PO; -PANT40TA29 PO; +PANT40TA3 PO; +PX O20TA PO; -TOPI25TA10 PO; -TYLENOL ES; -ULTR50TA8 PO; -UREA20CR4; -dexameTHASONE 10MG/1ML VIAL PRES.FREE (J1100 PER 1MG) As Ordered ONE
[2020-04-18] MEDS ORDERED: NS 1,000 ML IV ONE (09:45)
[2020-04-18 10:12] LABS: BASO % 0.1 % (0.0-1.0); HEMATOCRIT 47.5 % (42.0-52.0); HEMOGLOBIN 15.4 g/dl (13.5-17.5); MEAN CORPUSCULAR HEMOGLOBIN 29.7 pg (27.0-33.0); MEAN CORPUSCULAR HGB CONC 32.4 g/dl (32.0-36.5); MEAN CORPUSCULAR VOLUME 91.5 fl (80.0-96.0); MONO # 1.2 10^3/uL (0.0-0.8); NEUTROPHILS # 14.1 10^3/uL (1.5-8.5); NEUTROPHILS % 86.2 % (36.0-66.0); PLATELET COUNT, AUTOMATED 272 10^3/uL (150-450); RED BLOOD COUNT 5.19 10^6/uL (4.30-6.10); WHITE BLOOD COUNT 16.4 10^3/uL (4.0-10.0)
[2020-04-18 10:56] LABS: ALBUMIN 3.7 GM/DL (3.2-5.2); BILIRUBIN,DIRECT 0.1 MG/DL (0.0-0.2); BILIRUBIN,TOTAL 0.5 MG/DL (0.2-1.0)
[2020-04-18] MEDS ORDERED: ISOVUE-370 76% 100ML VIAL As Ordered ONE (11:06)
[2020-04-18 12:57] VITALS: BP 117/65
--- NOTE | 2020-04-18 14:17 | REP ---
REASON FOR EXAM: Abdominal pain. COMPARISON EXAMINATIONS: 04/10/2020 and 01/31/2019. CONTRAST: 100 mL Isovue 370. Once again, the lung bases are clear. The liver, spleen, pancreas, adrenal glands and kidneys are unchanged compared to the prior exams. Hepatic cyst is stable. There is an unchanged tiny left nephrolith. The gallbladder is somewhat contracted today. The abdominal aorta and para-aortic regions are unchanged. No adenopathy has developed. The intra-abdominal and intra pelvic bowel loops and their mesenteries are again seen to be within normal limits. There is no free fluid or free air in the abdomen or pelvis. There is no evidence of an intra-abdominal or intrapelvic mass or adenopathy. There is no change in the osseous structures. IMPRESSION: Stable CT findings. There is no evidence of acute disease. Electronically Signed by John Fry DO 04/18/2020 04:09 P
== END 2020-04-18 13:14 | disposition home or self-care (01) ==
LOC: M ED 09:05
DX: R11.2 Nausea with vomiting, unspecified (principal); R19.7 Diarrhea, unspecified; R10.9 Unspecified abdominal pain; I25.10 Atherosclerotic heart disease of native coronary artery without angina pectoris; I10 Essential (primary) hypertension; E78.5 Hyperlipidemia, unspecified; G47.30 Sleep apnea, unspecified; E03.9 Hypothyroidism, unspecified; F32.9 Major depressive disorder, single episode, unspecified; F41.0 Panic disorder [episodic paroxysmal anxiety]; K21.9 Gastro-esophageal reflux disease without esophagitis; Z87.442 Personal history of urinary calculi; Z95.1 Presence of aortocoronary bypass graft; Z95.5 Presence of coronary angioplasty implant and graft; Z95.4 Presence of other heart-valve replacement; Z87.891 Personal history of nicotine dependence; Z79.899 Other long term (current) drug therapy; Z88.5 Allergy status to narcotic agent; Z91.89 Other specified personal risk factors, not elsewhere classified; Z91.040 Latex allergy status
CPT/HCPCS: 36415; 74177; 80047; 80076; 81001; 83690; 85025; 96360; 99284; Q9967

== ENCOUNTER → 2020-05-03 | Outpatient (POV) | payer OTHER, MEDICAID ==
[~2020-05-03] MED LIST changes: +ALBU8.5H; +CARA1TAB6 PO; -ESCI20TA; +FAMO20TA5 PO; +HYDR1CRE2; +LIDO1.1P TOP; +MONT10TA4 PO; +OMEP-404 PO; +PANT40TA29 PO; -PANT40TA3 PO; -PX O20TA PO; +TOPI25TA10 PO; +TYLENOL ES; +ULTR50TA8 PO; +UREA20CR4
== END ==
LOC: M PAIN 09:15
PROVIDERS: ATTEND Nurse Practitioner Family
DX: M47.817 Spondylosis without myelopathy or radiculopathy, lumbosacral region (principal)

== ENCOUNTER → 2020-05-10 | Outpatient (REF) | payer OTHER ==
[2020-06-08 23:41] LABS: APPEARANCE, URINE CLOUDY (CLEAR); BACTERIA, URINE AUTO NEGATIVE (NEGATIVE); BILIRUBIN, URINE AUTO NEGATIVE (NEGATIVE); BLOOD, URINE BLOOD NEGATIVE (NEGATIVE); CALCIUM OXALATE CRYSTALS SMALL; COLOR, URINE YELLOW (YELLOW); GLUCOSE, URINE (UA) AUTO NEGATIVE (NEGATIVE); KETONE, URINE AUTO TRACE mg/dL (NEGATIVE); LEUKOCYTE ESTERASE, URINE AUTO NEGATIVE (NEGATIVE); MUCUS, URINE SMALL (NEGATIVE); NITRITE, URINE AUTO NEGATIVE (NEGATIVE); PROTEIN, URINE AUTO NEGATIVE (NEGATIVE); RBC, URINE AUTO 6 /HPF (0-3); SPECIFIC GRAVITY URINE AUTO 1.019 (1.002-1.035); SQUAMOUS EPITHELIAL CELL UR AU 0 /HPF (0-6); UROBILINOGEN, URINE AUTO 0.2 mg/dL (0.0-2.0); WBC, URINE AUTO 5 /HPF (0-3)
== END ==
LOC: M SFHCPLAZ 12:04
PROVIDERS: ATTEND Nurse Practitioner Family
DX: R35.0 Frequency of micturition (principal)

== ENCOUNTER → 2020-05-13 | Emergency (ER) | payer OTHER, MEDICAID ==
[~2020-05-13] MED LIST changes: +APIXABAN 5 MG TAB (ELIQUIS) As Ordered ONE; +APIXABAN 5 MG TAB (ELIQUIS) ONE; +ISOVUE-370 76% 100ML VIAL As Ordered ONE
--- NOTE | 2020-06-21 10:26 | ECGEPIP ---
SINUS RHYTHM LOW QRS VOLTAGE IN PRECORDIAL LEADS BORDERLINE ECG SEE SCANNED DOWNTIME REPORT MTDD
[2020-06-28 08:58] LABS: INR 1.01; PROTHROMBIN TIME 13.5 SECONDS (12.5-14.3)
[2020-06-28 08:59] LABS: D-DIMER QUANT 605.66 ng/ml (<500)
[2020-06-28 18:37] LABS: HEMATOCRIT 45.5 % (42.0-52.0); HEMOGLOBIN 14.6 g/dl (13.5-17.5); MEAN CORPUSCULAR HGB CONC 32.1 g/dl (32.0-36.5); MEAN CORPUSCULAR VOLUME 93.4 fl (80.0-96.0); PLATELET COUNT, AUTOMATED 237 10^3/uL (150-450); RED BLOOD COUNT 4.87 10^6/uL (4.30-6.10)
== END | disposition home or self-care (01) ==
LOC: M ED 21:30
DX: I26.99 Other pulmonary embolism without acute cor pulmonale (principal); E78.5 Hyperlipidemia, unspecified; E66.9 Obesity, unspecified; I25.10 Atherosclerotic heart disease of native coronary artery without angina pectoris; Z79.01 Long term (current) use of anticoagulants; Z79.899 Other long term (current) drug therapy
CPT/HCPCS: 36415; 71275; 80047; 85027; 85379; 85610; 93005; 96374; 99284; Q9967

== ENCOUNTER 2020-05-21 11:50 | Emergency (ER) | payer OTHER, MEDICAID ==
[~2020-05-21 11:50] MED LIST changes: -ALBU8.5H; -APIXABAN 5 MG TAB (ELIQUIS) As Ordered ONE; -APIXABAN 5 MG TAB (ELIQUIS) ONE; -CARA1TAB6 PO; -FAMO20TA5 PO; -HYDR1CRE2; -ISOVUE-370 76% 100ML VIAL As Ordered ONE; -LIDO1.1P TOP; -MONT10TA4 PO; -TOPI25TA10 PO; -TYLENOL ES; -ULTR50TA8 PO; -UREA20CR4
[2020-07-03 11:13] LABS: INR 0.92; PARTIAL THROMBOPLASTIN TIME 31.9 SECONDS (24.2-38.5); PROTHROMBIN TIME 12.6 SECONDS (12.5-14.3)
[2020-07-03 11:30] LABS: APPEARANCE, URINE CLEAR (CLEAR); BACTERIA, URINE AUTO NEGATIVE (NEGATIVE); BILIRUBIN, URINE AUTO NEGATIVE (NEGATIVE); BLOOD, URINE BLOOD NEGATIVE (NEGATIVE); COLOR, URINE YELLOW (YELLOW); GLUCOSE, URINE (UA) AUTO NEGATIVE (NEGATIVE); KETONE, URINE AUTO NEGATIVE (NEGATIVE); LEUKOCYTE ESTERASE, URINE AUTO NEGATIVE (NEGATIVE); MUCUS, URINE SMALL (NEGATIVE); NITRITE, URINE AUTO NEGATIVE (NEGATIVE); PROTEIN, URINE AUTO NEGATIVE (NEGATIVE); RBC, URINE AUTO 2 /HPF (0-3); SPECIFIC GRAVITY URINE AUTO 1.017 (1.002-1.035); SQUAMOUS EPITHELIAL CELL UR AU 0 /HPF (0-6); UROBILINOGEN, URINE AUTO 0.2 mg/dL (0.0-2.0); WBC, URINE AUTO 2 /HPF (0-3)
[2020-07-05 11:55] LABS: BASO % 0.5 % (0.0-1.0); EOS # 0.1 10^3/uL (0.0-0.5); HEMATOCRIT 42.6 % (42.0-52.0); HEMOGLOBIN 13.6 g/dl (13.5-17.5); LYMPH # 1.5 10^3/uL (1.5-5.0); MEAN CORPUSCULAR HEMOGLOBIN 29.8 pg (27.0-33.0); MEAN CORPUSCULAR HGB CONC 31.9 g/dl (32.0-36.5); MEAN CORPUSCULAR VOLUME 93.4 fl (80.0-96.0); MONO # 0.7 10^3/uL (0.0-0.8); MONO % 11.9 % (0.0-5.0); NEUTROPHILS # 3.7 10^3/uL (1.5-8.5); NEUTROPHILS % 60.8 % (36.0-66.0); PLATELET COUNT, AUTOMATED 209 10^3/uL (150-450); RED BLOOD COUNT 4.56 10^6/uL (4.30-6.10); WHITE BLOOD COUNT 6.1 10^3/uL (4.0-10.0)
[2020-07-11] MEDS ORDERED: CARA1TAB6 PO (08:45)
[2020-08-12 16:16] LABS: ALBUMIN 3.5 GM/DL (3.2-5.2); ALT/SGPT 37 U/L (12-78); BILIRUBIN,DIRECT < 0.1 MG/DL (0.0-0.2); BILIRUBIN,TOTAL 0.3 MG/DL (0.2-1.0); BLOOD UREA NITROGEN 14 MG/DL (7-18); CALCIUM LEVEL 8.8 MG/DL (8.5-10.1); CARBON DIOXIDE LEVEL 28 MEQ/L (21-32); CHLORIDE LEVEL 110 MEQ/L (98-107); CREATININE FOR GFR 1.25 MG/DL (0.70-1.30); GLOMERULAR FILTRATION RATE > 60.0 (>56); GLUCOSE, FASTING 89 MG/DL (70-100); LIPASE 120 U/L (73-393); POTASSIUM SERUM 4.3 MEQ/L (3.5-5.1); SODIUM LEVEL 141 MEQ/L (136-145); TOTAL PROTEIN 6.7 GM/DL (6.4-8.2)
== END 2020-05-21 16:38 | disposition home or self-care (01) ==
LOC: M ED 11:50
DX: R30.0 Dysuria (principal); I25.10 Atherosclerotic heart disease of native coronary artery without angina pectoris; E78.5 Hyperlipidemia, unspecified; F41.0 Panic disorder [episodic paroxysmal anxiety]; E03.9 Hypothyroidism, unspecified; G47.33 Obstructive sleep apnea (adult) (pediatric); Z87.891 Personal history of nicotine dependence; Z79.899 Other long term (current) drug therapy; Z79.01 Long term (current) use of anticoagulants; Z88.5 Allergy status to narcotic agent; Z91.89 Other specified personal risk factors, not elsewhere classified; Z91.040 Latex allergy status

== ENCOUNTER 2020-06-12 13:15 | Emergency (ER) | payer OTHER ==
[~2020-06-12] VITALS: Ht 172.7 cm; Wt 134.5 kg
[2020-06-12 13:16] VITALS: BP 131/80
[2020-06-12] MEDS ORDERED: ALBU8.5H (13:22)
[2020-06-12] MEDS ORDERED: TYLENOL ES (13:22)
[2020-06-12] MEDS ORDERED: ULTR50TA8 PO (14:13)
[2020-06-12] MEDS ORDERED: traMADol 50 MG TAB PO ONE (14:15)
[2020-07-11] MEDS ORDERED: CARA1TAB6 PO (08:45)
== END 2020-06-12 14:50 | disposition home or self-care (01) ==
LOC: M ED 13:15
DX: M54.42 Lumbago with sciatica, left side (principal); Z79.899 Other long term (current) drug therapy; Z91.89 Other specified personal risk factors, not elsewhere classified; Z91.040 Latex allergy status; Z88.5 Allergy status to narcotic agent

== ENCOUNTER → 2020-06-14 | Outpatient (CLI) | payer OTHER ==
[~2020-06-14] MED LIST changes: +ALBU8.5H; +CARA1TAB6 PO; +FAMO20TA5 PO; +HYDR1CRE2; +LIDO1.1P TOP; +MONT10TA4 PO; +TOPI25TA10 PO; +TYLENOL ES; +ULTR50TA8 PO; +UREA20CR4
== END ==
LOC: M LABSMTC 09:38
PROVIDERS: ATTEND Orthopaedic Surgery
DX: Z20.828 Contact with and (suspected) exposure to other viral communicable diseases (principal)

== ENCOUNTER 2020-06-16 06:28 | Emergency (ER) | payer OTHER ==
[~2020-06-16] VITALS: Ht 172.7 cm; Wt 136.8 kg
[~2020-06-16 06:28] MED LIST changes: -CARA1TAB6 PO; -FAMO20TA5 PO; -HYDR1CRE2; -LIDO1.1P TOP; -MONT10TA4 PO; -TOPI25TA10 PO; -UREA20CR4
[2020-06-16] MEDS ORDERED: KETOROLAC 30 MG/ML 1ML VIAL IM ONE (07:00)
[2020-06-16 07:23] VITALS: BP 123/74
[2020-07-11] MEDS ORDERED: CARA1TAB6 PO (08:45)
== END 2020-06-16 07:31 | disposition home or self-care (01) ==
LOC: M ED 06:28
DX: S39.012A Strain of muscle, fascia and tendon of lower back, initial encounter (principal); X58.XXXA Exposure to other specified factors, initial encounter; Y92.9 Unspecified place or not applicable; Y93.9 Activity, unspecified; Y99.9 Unspecified external cause status; I10 Essential (primary) hypertension; I50.9 Heart failure, unspecified; E03.9 Hypothyroidism, unspecified; Z79.899 Other long term (current) drug therapy; Z91.89 Other specified personal risk factors, not elsewhere classified; Z91.040 Latex allergy status; Z88.5 Allergy status to narcotic agent
CPT/HCPCS: 96372; 99283; J1885

== ENCOUNTER 2020-06-23 13:49 | Emergency (ER) | payer MEDICAID, OTHER ==
[~2020-06-23] VITALS: Ht 172.7 cm; Wt 134.9 kg
[2020-06-23] MEDS ORDERED: HYDR1CRE2 (14:42)
[2020-06-23] MEDS ORDERED: UREA20CR4 (14:42)
[2020-06-23] MEDS ORDERED: HYDR-4571 PO (14:42)
--- NOTE | 2020-06-23 15:30 | REPVR ---
PROCEDURE INFORMATION: Exam: XR Right Ribs with PA Chest, 3 Views Exam date and time: 06/23/2020 2:36 PM Age: 55 years old Clinical indication: Other: Fell; Additional info: Fell into door frame TECHNIQUE: Imaging protocol: XR Right ribs 3 views with PA chest. COMPARISON: CR Chest, 2 view PA, Lat 04/10/2020 3:38 PM FINDINGS: Lungs: Surgical clips present in the perihilar regions. Pleural space: Pleural thickening noted in the left lateral and right lateral gerri thoraces. Heart/Mediastinum: Unremarkable. No cardiomegaly. Bones/joints: Sternal wires are noted. IMPRESSION: No acute findings Electronically signed by: Lina Souza On 06/23/2020 15:29:58 PM
[2020-06-23] MEDS ORDERED: LIDO1.1P TOP (15:39)
[2020-06-23 15:47] VITALS: BP 110/82
[2020-07-11] MEDS ORDERED: CARA1TAB6 PO (08:45)
== END 2020-06-23 15:50 | disposition home or self-care (01) ==
LOC: M ED 13:49
DX: S20.211A Contusion of right front wall of thorax, initial encounter (principal); X58.XXXA Exposure to other specified factors, initial encounter; Y92.9 Unspecified place or not applicable; Y93.9 Activity, unspecified; Y99.9 Unspecified external cause status; Z79.899 Other long term (current) drug therapy; Z91.89 Other specified personal risk factors, not elsewhere classified; Z88.5 Allergy status to narcotic agent; Z91.040 Latex allergy status

== ENCOUNTER 2020-07-04 14:35 | Emergency (ER) | payer OTHER ==
[~2020-07-04] VITALS: Ht 172.7 cm; Wt 134.4 kg
[~2020-07-04 14:35] MED LIST changes: +HYDR1CRE2; +LIDO1.1P TOP; +UREA20CR4
[2020-07-04] MEDS ORDERED: MONT10TA4 PO (14:53)
[2020-07-04] MEDS ORDERED: FAMO20TA5 PO (14:53)
[2020-07-04] MEDS ORDERED: TOPI50TA9 PO (14:53)
[2020-07-04] MEDS ORDERED: TOPI25TA10 PO (14:53)
[2020-07-04 17:14] LABS: BASO # 0.1 10^3/uL (0.0-0.2); BASO % 0.8 % (0.0-1.0); EOS # 0.1 10^3/uL (0.0-0.5); EOS % 1.9 % (0.0-3.0); HEMATOCRIT 47.2 % (42.0-52.0); HEMOGLOBIN 14.8 g/dl (13.5-17.5); LYMPH % 27.4 % (24.0-44.0); MEAN CORPUSCULAR HEMOGLOBIN 28.7 pg (27.0-33.0); MEAN CORPUSCULAR HGB CONC 31.4 g/dl (32.0-36.5); MEAN CORPUSCULAR VOLUME 91.5 fl (80.0-96.0); MONO % 13.1 % (0.0-5.0); NEUTROPHILS # 4.1 10^3/uL (1.5-8.5); NEUTROPHILS % 56.1 % (36.0-66.0); PLATELET COUNT, AUTOMATED 248 10^3/uL (150-450); RED BLOOD COUNT 5.16 10^6/uL (4.30-6.10); WHITE BLOOD COUNT 7.2 10^3/uL (4.0-10.0)
[2020-07-04] MEDS ORDERED: ISOVUE-370 76% 100ML VIAL As Ordered ONE (17:21)
[2020-07-04 17:26] LABS: INR 0.94; PROTHROMBIN TIME 12.8 SECONDS (12.5-14.3)
[2020-07-04 17:27] LABS: PARTIAL THROMBOPLASTIN TIME 27.7 SECONDS (24.2-38.5)
[2020-07-04 17:40] LABS: BILIRUBIN,DIRECT 0.1 MG/DL (0.0-0.2); BILIRUBIN,TOTAL 0.3 MG/DL (0.2-1.0); TOTAL PROTEIN 7.7 GM/DL (6.4-8.2)
--- NOTE | 2020-07-04 18:15 | REPVR ---
PROCEDURE INFORMATION: Exam: CT Abdomen And Pelvis With Contrast Exam date and time: 07/04/2020 5:43 PM Age: 55 years old Clinical indication: Abdominal pain; Generalized; Additional info: Abd pain with rectal bleeding R/O infectious process TECHNIQUE: Imaging protocol: Computed tomography of the abdomen and pelvis with intravenous contrast. Radiation optimization: All CT scans at this facility use at least one of these dose optimization techniques: automated exposure control; mA and/or kV adjustment per patient size (includes targeted exams where dose is matched to clinical indication); or iterative reconstruction. Contrast material: ISOVUE 370; Contrast volume: 100 ml; Contrast route: INTRAVENOUS (IV); COMPARISON: CT ABD/PEL W/IV CONTRAST ONLY 04/18/2020 11:10 AM FINDINGS: Liver: There is a diffuse decrease in hepatic parenchymal density, consistent with steatosis. Simple cyst right lobe of the liver measures 5.5 cm. Gallbladder and bile ducts: Normal. No calcified stones. No ductal dilation. Pancreas: Partial fatty replacement of the pancreas. Spleen: Normal. No splenomegaly. Adrenals: Normal. No mass. Kidneys and ureters: Nonobstructive calculi left kidney. Small simple cyst lower pole left kidney measures 1 cm. No follow-up suggested. Stomach and bowel: Unremarkable. No obstruction. No mucosal thickening. Appendix: No evidence of appendicitis. Intraperitoneal space: Unremarkable. No free air. No significant fluid collection. Vasculature: Unremarkable. No abdominal aortic aneurysm. Lymph nodes: Unremarkable. No enlarged lymph nodes. Urinary bladder: Unremarkable as visualized. Reproductive: Unremarkable as visualized. Bones/joints: Moderate central spinal stenosis L4-L5. Soft tissues: Unremarkable. IMPRESSION: 1. There is a diffuse decrease in hepatic parenchymal density, consistent with steatosis. 2. Simple cyst right lobe of the liver measures 5.5 cm. 3. Nonobstructive calculi left kidney. COMMENTS: Consistent with the [employer]'s Incidental Findings Committee white paper (J Am Bebe Radiol 2018): Any incidental renal lesion less than 1 cm or classified as too small to characterize, or any incidental cystic renal lesion characterized as simple-appearing, is likely benign. No follow-up imaging is recommended for these lesions per consensus recommendations based on imaging criteria. Electronically signed by: Jarod Rahman On 07/04/2020 18:14:24 PM
[2020-07-04 18:38] VITALS: BP 128/78
[2020-07-11] MEDS ORDERED: CARA1TAB6 PO (08:45)
== END 2020-07-04 18:46 | disposition home or self-care (01) ==
LOC: M ED 14:35
DX: K62.5 Hemorrhage of anus and rectum (principal); N20.0 Calculus of kidney; K76.89 Other specified diseases of liver; I25.10 Atherosclerotic heart disease of native coronary artery without angina pectoris; I10 Essential (primary) hypertension; E78.5 Hyperlipidemia, unspecified; K21.9 Gastro-esophageal reflux disease without esophagitis; F41.0 Panic disorder [episodic paroxysmal anxiety]; Z95.1 Presence of aortocoronary bypass graft; Z79.899 Other long term (current) drug therapy; Z91.89 Other specified personal risk factors, not elsewhere classified; Z88.5 Allergy status to narcotic agent; Z91.040 Latex allergy status
CPT/HCPCS: 74177; 80047; 80076; 83690; 85025; 85610; 85730; 99284; Q9967

== ENCOUNTER → 2020-07-13 | Outpatient (CLI) | payer OTHER ==
[~2020-07-13] MED LIST changes: +CARA1TAB6 PO; +FAMO20TA5 PO; +MONT10TA4 PO; +TOPI25TA10 PO
== END ==
LOC: M LABSMTC 11:28
PROVIDERS: ATTEND Anesthesiology
DX: Z01.812 Encounter for preprocedural laboratory examination (principal); Z20.828 Contact with and (suspected) exposure to other viral communicable diseases
CPT/HCPCS: C9803; U0003

== ENCOUNTER → 2020-07-17 | Outpatient (CLI) | payer OTHER, MEDICAID ==
[2020-07-17 12:58] LABS: HEMATOCRIT 46.7 % (42.0-52.0); HEMOGLOBIN 14.8 g/dl (13.5-17.5); MEAN CORPUSCULAR HEMOGLOBIN 28.6 pg (27.0-33.0); MEAN CORPUSCULAR HGB CONC 31.7 g/dl (32.0-36.5); MEAN CORPUSCULAR VOLUME 90.3 fl (80.0-96.0); PLATELET COUNT, AUTOMATED 250 10^3/uL (150-450); RED BLOOD COUNT 5.17 10^6/uL (4.30-6.10); WHITE BLOOD COUNT 6.9 10^3/uL (4.0-10.0)
[2020-07-17 13:19] LABS: BLOOD UREA NITROGEN 15 MG/DL (7-18); CALCIUM LEVEL 9.2 MG/DL (8.5-10.1); CARBON DIOXIDE LEVEL 27 MEQ/L (21-32); CHLORIDE LEVEL 110 MEQ/L (98-107); CREATININE FOR GFR 1.08 MG/DL (0.70-1.30); GLOMERULAR FILTRATION RATE > 60.0 (>56); GLUCOSE, FASTING 90 MG/DL (70-100); POTASSIUM SERUM 4.4 MEQ/L (3.5-5.1); SODIUM LEVEL 142 MEQ/L (136-145)
== END ==
LOC: M PLALAB 11:08
PROVIDERS: ATTEND Podiatrist Foot & Ankle Surgery
DX: M20.41 Other hammer toe(s) (acquired), right foot (principal); T84.84XA Pain due to internal orthopedic prosthetic devices, implants and grafts, initial encounter

== ENCOUNTER 2020-07-18 06:40 | Day surgery (SDC) | payer OTHER ==
[~2020-07-18] VITALS: Ht 172.7 cm; Wt 136.4 kg
[~2020-07-18 06:40] MED LIST changes: +LR 1,000 ML IV ONE; +ceFAZolin SOD 2 GM in IV 1 EA IV ONE
[2020-07-18] MEDS ORDERED: ceFAZolin SOD 1 GM in D5W MINI-BAG PLUS 50 ML IV ONE (07:00)
[2020-07-18] MEDS ORDERED: LIDOCAINE 1% MDV 20ML VIAL As Ordered ONE (08:42)
[2020-07-18] MEDS ORDERED: BUPIVACAINE HCL 0.5% 30 ML VIAL As Ordered ONE (08:42)
[2020-07-18] MEDS ORDERED: dexameTHASONE 4 MG/ML 1ML VIAL (J1100 PER 1MG) As Ordered ONE (08:43)
[2020-07-18] MEDS ORDERED: propofoL 200 MG/20 ML VIAL As Ordered ONE ×2 (09:10→09:36)
[2020-07-18] MEDS ORDERED: MIDAZOLAM INJ 2MG/2ML VIAL (J2250 PER 1MG) As Ordered ONE (09:10)
[2020-07-18] MEDS ORDERED: fentaNYL 100 MCG/2 ML INJECTION (J3010) As Ordered ONE (09:10)
[2020-07-18] MEDS ORDERED: HYDR-3713 PO (10:11)
[2020-07-18 11:00] VITALS: BP 110/66
--- NOTE | 2020-07-19 09:30 | RO ---
DATE OF OPERATION: 07/18/2020 SURGEON: Dylan Chand DPM AUTOMOTIVE PARTS INTERPRETER: None. PREOPERATIVE DIAGNOSIS: Left foot painful screw and exostosis and right foot second hammertoe. POSTOPERATIVE DIAGNOSIS: Left foot painful screw and exostosis and right foot second hammertoe. PROCEDURE: Right foot second hammertoe correction and left foot screw removal with exostectomy. ANESTHESIA: Monitored anesthesia, care and preop injection of 17 cc of 1:1 mixture of 1% lidocaine plain, 0.5 Marcaine plain. ESTIMATED BLOOD LOSS: Minimal. MATERIAL: Calin Smart Toe, 3 and 4 Vicryl and 4-0 nylon. INJECTABLES: 1 cc Decadron, 4 mg/ml COMPLICATIONS: None. CONDITION: Stable. INDICATIONS: 55-year-old presents with painful hardware in his left foot and painful hammertoe to his second right toe, presents today for surgical correction. The patient's side and site were identified and marked in the preoperative area. Consent was reviewed and obtained. Risks, complications and alternatives to the procedure explained to the patient in detail and all questions were answered. PROCEDURE: The patient was brought to the operating room and placed on the operative room table in supine position. Monitored anesthesia care was delivered by the anesthesia team. Preop injection of 17 cc of 1:1 mixture of 1% lidocaine plain, 0.5% Marcaine plan injected into the feet. Both feet were prepped and draped in the normal sterile fashion. Tourniquets were applied to both ankles, inflated to 250 mmHg. On the left side, a dorsal incision was made through previous scar with #15 blade. Dissection was carried until the bone and screw were identified. Overlying bone from the screw was removed with osteotome and dental pick and the screw was removed using the [employer] screw electric mule driver. The bone spurring was noted along the dorsal medial aspect of the first metatarsal and this was resected with sagittal saw and smooth with the rasp. Site was irrigated with normal saline. Deep closure was performed with 4-0 Vicryl and skin closed with 4-0 nylon. Attention was then paid to the right second toe. A dorsal incision was made of the proximal interphalangeal joint carried through with #15 blade. Dissection was carried until the sensor tendon was identified. This was transected at the level of the joint. The collateral ligaments of the joint were released and the proximal phalanx head was exposed. The head of the proximal phalanx and the cartilage of the base of the medial phalanx was removed with sagittal saw and the [employer] Smart Toe was inserted according to manufacture protocol. Following this, the extensor tendon was removed using 3-0 Vicryl and the skin with 4-0 nylon. Sterile dressings were applied, tourniquets were deflated and the patient was brought to the PACU with vital signs stable. Neurovascular status intact. weightbearing as tolerated. Will follow up in the office next week. GERALD
== END 2020-07-18 15:00 | disposition home or self-care (01) ==
LOC: M SDC 06:40
PROVIDERS: ATTEND Podiatrist Foot & Ankle Surgery
DX: M20.41 Other hammer toe(s) (acquired), right foot (principal); T84.84XA Pain due to internal orthopedic prosthetic devices, implants and grafts, initial encounter; M79.672 Pain in left foot; I10 Essential (primary) hypertension; K21.9 Gastro-esophageal reflux disease without esophagitis; K76.9 Liver disease, unspecified; I25.10 Atherosclerotic heart disease of native coronary artery without angina pectoris; G47.30 Sleep apnea, unspecified; E03.9 Hypothyroidism, unspecified; E78.5 Hyperlipidemia, unspecified; Z86.711 Personal history of pulmonary embolism; F41.9 Anxiety disorder, unspecified; F32.9 Major depressive disorder, single episode, unspecified; M41.9 Scoliosis, unspecified; Z87.891 Personal history of nicotine dependence; Z79.899 Other long term (current) drug therapy; Z91.040 Latex allergy status; Z88.5 Allergy status to narcotic agent
CPT/HCPCS: 20680; 28285; 28288; 88300; C1713; J0690; J1100; J2250; J3010

== ENCOUNTER 2020-07-21 13:55 | Emergency (ER) | payer OTHER ==
[~2020-07-21] VITALS: Ht 172.7 cm; Wt 136.4 kg
[~2020-07-21 13:55] MED LIST changes: -LR 1,000 ML IV ONE; -ceFAZolin SOD 2 GM in IV 1 EA IV ONE
[2020-07-21 13:57] VITALS: BP 116/71
== END 2020-07-21 15:15 | disposition home or self-care (01) ==
LOC: M ED 13:55
DX: Z48.817 Encounter for surgical aftercare following surgery on the skin and subcutaneous tissue (principal); I25.10 Atherosclerotic heart disease of native coronary artery without angina pectoris; I10 Essential (primary) hypertension; E78.5 Hyperlipidemia, unspecified; E03.9 Hypothyroidism, unspecified; Z79.899 Other long term (current) drug therapy; Z88.5 Allergy status to narcotic agent; Z91.89 Other specified personal risk factors, not elsewhere classified; Z91.040 Latex allergy status

== ENCOUNTER 2020-08-03 17:37 | Emergency (ER) | payer OTHER ==
[~2020-08-03] VITALS: Ht 172.7 cm; Wt 135.6 kg
[2020-08-03] MEDS ORDERED: CEPHALEXIN 500 MG CAP PO ONE (18:30)
[2020-08-03] MEDS ORDERED: KEFL500C17 PO (18:56)
[2020-08-03 18:58] VITALS: BP 101/59
== END 2020-08-03 19:04 | disposition home or self-care (01) ==
LOC: M ED 17:37
DX: L03.116 Cellulitis of left lower limb (principal); Z79.899 Other long term (current) drug therapy; Z91.040 Latex allergy status; Z91.89 Other specified personal risk factors, not elsewhere classified; Z88.5 Allergy status to narcotic agent

== ENCOUNTER → 2020-08-08 | Outpatient (CLI) | payer OTHER ==
--- NOTE | 2020-08-10 02:37 | ECWPNPC ---
PATIENT NAME: DEANNA AN : 1965 GENDER: MALE VISIT DATE: 08/08/2020 DISCHARGE DATE: 08/08/20 1027 VISIT LOCKED DATE TIME: PHYSICIAN: MINA HAYWOOD PHYSICIAN PAGER NO: ACTIVE RESOURCE: MINA HAYWOOD REASON FOR APPOINTMENT 1. 3MOS F/U HISTORY OF PRESENT ILLNESS DEPRESSION SCREENING: PHQ-2 (2015 EDITION) LITTLE INTEREST OR PLEASURE IN DOING THINGS?NOT AT ALL FEELING DOWN, DEPRESSED, OR HOPELESS?NOT AT ALL TOTAL SCORE0 GENERAL: HERE FOR FOLLOW-UP OF CHRONIC LOW BACK PAIN. CONTINUES TO DO WELL STATUS POST RIGHT STANDARD RADIOFREQUENCY DONE IN APRIL. CHIEF AREA OF PAIN IS LEFT LOW BACK THAT RADIATES INTO HIS LEFT LEG. CURRENTLY BEING TREATED WITH AN ANTIBIOTIC FOR INFECTION STATUS POST LEFT FOOT SURGERY DONE A FEW WEEKS AGO. DISCUSSED DOING SACROILIAC JOINT INJECTION ONCE HE IS STABILIZED POSTOP. -. FALL RISK SCREENING: SCREENING :NO FALLS REPORTED IN THE LAST YEAR NONE PAIN SCREENING: PATIENT HAS A COMPLAINT OF ACUTE OR CHRONIC PAIN :YES LOCATION OF PAIN:LEG(S) LEFT LEG INTENSITY OF PAIN (SCALE OF 1 TO 10):7 WHAT DOES YOUR PAIN FEEL LIKE:SHARP, STABBING, OTHER TINGLES WELL DURATION:STEADY PAIN IS INCREASED BY:ACTIVITIES, PROLONGED STANDING PAIN IS DECREASED BY:USE OF PAIN MEDICATIONS NURSING NOTE: -. PAIN CENTER INTAKE QUESTIONS: DO YOU HAVE A HISTORY OF MRSA? :NO DO YOU TAKE A BLOOD THINNERS? :NO DO YOU HAVE ANY BLEEDING DISORDERS? :NO ANY NEW NUMBNESS OR WEAKNESS IN YOUR LEGS OR ARMS? :NO ANY PACEMAKER,DEFIBRILLATOR, OR DORSAL COLUMN STIMULATOR? :NO DO YOU HAVE ANY RASHES OR OPEN SORES? :NO ARE YOU ALLERGIC TO IV DYE? :NO ARE YOU DIABETIC? :NO ANY NEW PROBLEMS WITH YOUR MEDICATIONS? :NO HAVE YOU RECEIVED A VACCINE IN THE PAST 30 DAYS? :YES FLU VAC SOME TIME IN JULY DO YOU PLAN TO RECEIVE A VACCINE IN THE NEXT 21 DAYS? :NO DO YOU NEED ANY PRESCRIPTION? :NO DO YOU TAKE ANY IMMUNOSUPPRESSIVE MEDICATIONS? :NO IS THERE A CHANCE YOU COULD BE ? :NO ARE YOU BREAST FEEDING? :NO CURRENT MEDICATIONS TAKING ESCITALOPRAM OXALATE 10 MG TABLET 1 TABLET ORAL ONCE A DAY ALONG WITH A 20 MG TABLET, NOTES: 04/16 2000 TAKING VENTOLIN HFA 108 (90 BASE) MCG/ACT AEROSOL SOLUTION INHALE TWO PUFFS BY MOUTH EVERY FOUR HOURS NEEDED INHALATION -, NOTES: 2 WEEKS AGO TAKING BUSPIRONE HCL 10 MG TABLET TAKE ONE TABLET BY MOUTH @8AM AND TAKE ONE TABLET @8PM ORAL , NOTES: 04/17 600 TAKING OMEPRAZOLE 40 MG CAPSULE DELAYED RELEASE TAKE ONE CAPSULE BY MOUTH @8AM ON AN EMPTY STOMACH ORAL , NOTES: 04/17 600 TAKING TRIHEXYPHENIDYL HCL 2 MG TABLET TAKE ONE TABLET BY MOUTH TWICE DAILY ORALLY BID, NOTES: 04/17 600 TAKING FAMOTIDINE 20 MG TABLET TAKE ONE TABLET BY MOUTH @8AM AND TAKE ONE TABLET BY MOUTH @8PM ORAL , NOTES: 04/17 600 TAKING METOPROLOL TARTRATE 25 MG TABLET 1/2 TAB ORAL DAILY, NOTES: 04/17 600 TAKING GABAPENTIN 600 MG TABLET TAKE ONE TABLET BY MOUTH @8AM AND TAKE ONE TABLET @12PM AND TAKE ONE TABLET @8PM ORAL Q8H TID, NOTES: 04/17 600 TAKING TOPIRAMATE 50 MG TABLET 1 TABLET ORALLY ONCE A DAY, NOTES: 04/17 600 TAKING ATORVASTATIN CALCIUM 40 MG TABLET 1 TABLET ORALLY ONCE A DAY, NOTES: 04/17 600 TAKING MONTELUKAST SODIUM 10 MG TABLET 1 TABLET ORALLY ONCE A DAY, NOTES: 04/17 600 TAKING LEVOTHYROXINE SODIUM 25 MCG TABLET 1 TABLET IN THE MORNING ON AN EMPTY STOMACH ORALLY ONCE A DAY TAKING CETIRIZINE HCL 10 MG TABLET TAKE ONE TABLET BY MOUTH @5PM TAKING TRAMADOL HCL 50 MG TABLET 1 TABLET NEEDED ORALLY ONCE A DAY TAKING DERMOTIC 0.01 % OIL 5 GTT INTO EACH EAR OTIC TWICE A DAY TAKING SULFAMETHOXAZOLE-TMP DS 1 TAB TWICE DAILY NOT-TAKING TRAMADOL HCL 50 MG TABLET 1 TABLET NEEDED ORALLY Q6H PRN MDD4, NOTES: 04/16 2000 NOT-TAKING DAPSONE 25 MG TABLET 1 TABLET ORALLY ONCE A DAY UNKNOWN BETAMETHASONE DIPROPIONATE AUG 0.05 % OINTMENT 1 APPLICATION TO AFFECTED AREA EXTERNALLY BID TO RASH ON ELBOW, NOTES: 1 WEEK AGO UNKNOWN SUCRALFATE 1 GM TABLET TAKE ONE TABLET BY MOUTH FOUR TIMES DAILY AFTER MEALS ORAL , NOTES: 04/17 600 UNKNOWN ACETAMINOPHEN 500 MG CAPSULE 2 CAPSULE ORALLY EVERY 8 HRS NEEDED FOR PAIN, NOTES: NONE RECENT UNKNOWN ESCITALOPRAM OXALATE 20 MG TABLET 1 TABLET ORALLY ONCE A DAY, NOTES: 04/16 2000 UNKNOWN FISH OIL + D3 [id number] MG-UNIT CAPSULE 1 CAPSULE ORALLY BID OTC, NOTES: 04/17 600 UNKNOWN MULTIVITAMIN ADULT - TABLET DIRECTED ORALLY , NOTES: 04/17 600 UNKNOWN VITAMIN D 1000 UNIT TABLET 1 TABLET ORALLY ONCE A DAY, NOTES: 04/17 600 UNKNOWN HYDROCORTISONE 1 % CREAM 1 APPLICATION RASH ONCE A DAY, NOTES: 04/17 600 UNKNOWN ONDANSETRON HCL 4 MG TABLET TAKE ONE TABLET BY MOUTH ONE TO TWO TIMES A DAY BEFORE MEALS, TAKE ONLY WHEN HAVING NAUSEA ORAL , NOTES: 04/16 2000 UNKNOWN IBUPROFEN 600 MG TABLET 1 TABLET WITH FOOD OR MILK NEEDED ORALLY BID NEEDED, NOTES: NONE RECENT UNKNOWN ASPIRIN 81 MG TABLET CHEWABLE 1 TABLET ORALLY ONCE A DAY, NOTES: 04/17 600 UNKNOWN FLUTICASONE PROPIONATE 50 MCG/ACT SUSPENSION 1 SPRAY IN EACH NOSTRIL NASALLY BID, NOTES: 04/16 2000 UNKNOWN OCEAN NASAL SPRAY 0.65 % SOLUTION 2 SPRAYS IN EACH NOSTRIL NEEDED NASALLY 4X DAILY, NOTES: 04/16 2000 UNKNOWN SINGULAIR 10 MG TABLET 1 TABLET ORALLY AT BEDTIME, NOTES: 04/16 2000 UNKNOWN TOPIRAMATE 25 MG TABLET 1 TABLET ORALLY ONCE A DAY, NOTES: 04/16 2000 UNKNOWN NITROGLYCERIN 0.4 MG TABLET SUBLINGUAL DIRECTED SUBLINGUAL UNKNOWN TIZANIDINE HCL 4 MG TABLET 1 TAB ORAL Q8H TID, NOTES: 04/16 2000 MEDICATION LIST REVIEWED AND RECONCILED WITH THE PATIENT PAST MEDICAL HISTORY DEPRESSION/ANXIETY- DR LAWLER. /THERAPIST Q2 WEEKS HYPERLIPIDEMIA GERD WITH BARRETTS: REPEAT EGD IN 07/2018 VITAMIN D DEF FRAN: FOLLOWING WITH PULMONOLOGY: COMPLIANT WITH CPAP-PULMONOLOGY CAD: BYPASS WITH AUTOLOGOUS VEIN: DR. VALENCIA AT [facility] ECHO 10/17/2016. HYPERTENSIVE HEART DISEASE CARDIAC PET NUCLEAR STRESS 09/26/2016. LVEF 66% BACK PAIN HISTORY OF CHICKENPOX, MEASLES, MUMPS LYTIC LESION ADJACENT TO RT LOBE LIVER APPEARING WITHIN GB FOSSA: NO SURGICAL INTERVENTION IDICATED: DR. DOMINIQUE THYROID U/S 09/16 DIFFUSE HETEROGENEITY 2 6MM NODULES AT [facility]. - DR HERMILA RAUSCH CARDIAC CATH WITH CABG 11/13/2016 SPECT STRESS LVEF 55%, NO EVIDENCE OF ISCHEMI, LEFT VENTRICULAR DIALATION WITH STRESS 08/26/2017 EUS (ENDOSCOPIC U/S-DR. LE)-NO PANCREATIC MASS OR COMMON BILE DUCT STRICTURE HIDA SCAN-UNREMARKABLE 2017, NORMAL GB AND EF, HYPERTONIC SPHINCTER OF ODDI FATTY LIVER WITH FATTY PANCREAS COLONOSCOPY 2017 UPPER ENDOSCOPY 2018 GALLBLADDER U/S 04/23/18: FATTY INFILTRATE OF LIVER AND EXOPHYTIC CYST ON THE RIGHT LOBE. NO HEPATIC SOLID MASS OR BILLARY DILATATION. GALLBLADDER WITHOUT ACUTE FINDINGS ECHO: 12/20/17-NO SIGNIFICANT VALVULAR DISEASE, LEFT VENTRICULAR SYSTOLIC FUNCTION NORMAL, LEFT VENTRICULAR DIASTOLIC FUNCTION NORMAL, CONCENTRIC LEFT CENTRICULAR HYPERTROPHY MILD, HYPERTNESIVE HEART DISEASE MODERATE. MILDLY DILATED LEFT ATRIUM 4.3CM. MILDLY DILATED AORTIC ROOT AT 4.0CM. TRACE TO SMALL PERICARDAL EFFUSION NOTED POSTERIORLY IN LIMITED VIEWS, NO EVIDENCE OF CARDIAC TAMPONADE. LVEF 55-60% DERMATITIS HERPETIFORMIS CARPAL TUNNEL HAMMER TOES ALLERGIES CODEINE PHOSPHATE (FOR ALLERGIES USE ONLY): NAUSEA/VOMITING - SIDE EFFECTS LATEX (FOR ALLERGY USE ONLY): RASH - ALLERGY ADHESIVE TAPE: RASH - ALLERGY GLUTEN ALLERGY: RASH - ALLERGY SURGICAL HISTORY LEFT HAND, 5TH DIGIT, REMOVED TUMOR 1979 & 2016 TONSILLECTOMY CHILD COLONOSCOPY- INTERNAL HEMORRHOID, POLYP X 1- ADENOMATOUS 02/02/15 COLONOSCOPY - 2 TUBULAR ADENOMAS, MUCOSAL ULCERATION, MODERATE DIVERTICULOSIS IN THE SIGMOID COLON, EXTERNAL HEMORRHOIDS. SIGMOIDOSCOPY DUE 10/2018, REPEAT COLONOSCOPY 5 YRS 10/13/17 EGD- [facility] 02/02/15 HEMORRHOIDECTOMY 4-03-20 LEFT FOOT BUNIONECTOMY WITH FIRST METATARSAL OSTEOSTOMY-DR. IRIZARRY 03/31/16 CABG- 4 VESSEL AT [facility] 11/11/16 LEFT HAND CP SX, AND TENDON REMOVAL. [facility] 01/2018 UPPER ENDOSCOPIC ULTRASOUND WITH ANESTHESIA 07/2018 WIRES REMOVED FROM CHEST 09/29/2018 HAMMER TOE, LEFT FOOT, DR. IRIZARRY 03/30/19 EGD-DR. BEGUM 01/2019 HAMMERTOE 03/2019 RIGHT HAND TRIGGER AND CARPEL TUNNEL -2019 R2ND TOE RGREAT TOE SURGERY 06/2020 SCREW REMOVAL FOOT FAMILY HISTORY FATHER: 79 YRS, [place], HTN, DIAGNOSED WITH HYPERTENSION, UNSPECIFIED HEART DISEASE IN 62 MOTHER: ALIVE 66 YRS, HTN, HYPERTENSION, UNSPECIFIED HEART DISEASE 1 BROTHER(S) , 1 SISTER(S) - HEALTHY. 3 HALF BROTHER, 1 HALF SISTER-HEALTHY, NO KNOWN FAMILY HISTORY OF ANY UROLOGICALLY RELATED DISEASES CANCERS. DENIES ANY FAMILY HX SKIN CANCER OR PANCREATIC CANCER. SOCIAL HISTORY GENERAL: TOBACCO USE ARE YOU A:FORMER SMOKER HOW LONG HAS IT BEEN SINCE YOU LAST SMOKED?5-10 YEARS LATEX QUESTIONNAIRE LATEX ALLERGY : HAVE YOU EVER DEVELOPED ANY TYPE OF REACTION AFTER HANDLING LATEX PRODUCTS SUCH RUBBER GLOVES, CONDOMS, DIAPHRAGMS, BALLOONS, SOCKS, OR UNDERWEAR?YES - PLEASE INDICATE :RUBBER GLOVES, CONDOMS, BALLOONS RASH LATEX ALLERGY : HAVE YOU EVER DEVELOPED ANY TYPE OF REACTION DURING OR AFTER DENTAL APPOINTMENT, VAGINAL/RECTAL EXAMINATION, SURGICAL PROCEDURE, OR ANY OTHER EXPOSURE?NO LATEX RISK : HAVE YOU EVER HAD ANY DIFFICULTY BREATHING OR HIVES AFTER EATING OR HANDLING ANY FRUITS, OR VEGETABLES; SUCH KIWI, BANANAS, STONE FRUITS, OR CHESTNUTSNO LATEX RISK : DO YOU HAVE A PREVIOUS PERSONAL HISTORY OF MORE THAN NINE SURGERIES, SPINA BIFIDA, OR REPEATED CATHERIZATIONS? NO LATEX RISK : ARE YOU FREQUENTLY EXPOSED TO LATEX PRODUCTS IN YOUR OCCUPATION?NO DATE ASKED : 08/08/2020 LUNG CANCER SCREENING SMOKING STATUS:FORMER SMOKER IS THE PATIENT BETWEEN THE AGE OF 57 AND 79?NO BMI CARE GOAL FOLLOW-UP ABOVE NORMAL BMI FOLLOW-UPDIETARY MANAGEMENT EDUCATION, GUIDANCE, AND COUNSELING ALCOHOL SCREENING DID YOU HAVE A DRINK CONTAINING ALCOHOL IN THE PAST YEAR?NO POINTS0 INTERPRETATIONNEGATIVE RECREATIONAL DRUG USE DRUG USE?NO CAFFEINE CAFFEINE USE?YES COFEE: 1 CUPS PER DAY SEXUAL HX HAD SEX IN THE LAST 12 MONTHS (VAGINAL, ORAL, OR ANAL)?: NO, HAVE YOU EVER HAD AN STD?: NO. HIV / HEP-C SCREENING HIV TEST OFFERED TO PATIENT:NO HEP-C TEST OFFERED TO PATIENT:NO [employer] [id number] LATTER-DAY NO RESTORATIONIST BELIEFS THAT WOULD IMPACT HEALTH CARE. LANGUAGE LANGUAGES SPOKEN:FAROESE EDUCATION 3RD GRADE. STATES IS ABLE TO READ NEWSPAPER. WRITES BUT SPELLING IS NOT GOOD.. LEARNING BARRIERS / SPECIAL NEEDS CHANGE FROM LAST VISIT?NO 06/10/2019 BARRIERS TO LEARNING?YES COMMENTS LEARNING DISABILITY HEARING IMPAIRED?NO VISION IMPAIRED?YES COGNITIVELY IMPAIRED?NO :CORRECTIVE LENSES READINESS TO LEARN?YES LEARNING PREFERENCES?NO LEARNING CAPABILITIES PRESENT?YES EMOTIONAL BARRIERS?NO SPECIAL DEVICES?NO INSURANCE ACCOUNT EXECUTIVE NEEDED?NO DOMESTIC VIOLENCE DO YOU FEEL SAFE IN YOUR ENVIRONMENT?YES OCCUPATION: DISABLED, SSI. DIET: REGULAR. EXERCISE: NO REGULAR EXERCISE. MARITAL STATUS: SINGLE. PAIN CLINIC PFS, CLERGY, PUBLIC HEALTH REFERRALS HAS THE PATIENT BEEN EDUCATED REGARDING HIS/HER PLAN OF CARE?YES HAS THE PATIENT BEEN EDUCATED REGARDING PAIN, THE RISK FOR PAIN, THE IMPORTANCE OF EFFECTIVE PAIN MANAGEMENT, AND THE PAIN ASSESSMENT PROCESS?YES HOUSING: RENTS APARTMENT. ADVANCE DIRECTIVE ADVANCE DIRECTIVE DISCUSSED WITH PATIENT:YES PT DOES NOT HAVE ANY ADVANCED DIREDTIVES AND HE DECLINES INFORMATION ON HCP AT THIS TIME. REVIEWED WITH PT 05/14/18 0915 LAS09/01/18 1149 REVIEWED WITH PT. ADREVIEWED WITH PATIENT 01/13/19 1455 JSREVIEWED WITH PATIENT 05/16/19 0855 LAS. HOSPITALIZATION/MAJOR DIAGNOSTIC PROCEDURE [facility]- DEPRESSION/ANXIETY 14 YO HOUSE OF KIRSTIN RAUSCH- [place]- DEPRESSION 18 YO FATHER RITA- INGRID- LOCKED FACILTY- [place] OF DEPRESSION. [age]YO HEMORRHOIDECTOMY WITH REMOVAL OF A MIXED HEMORRHOIDAL BUNDLES AT THE LEFT LATERAL AND RIGHT ANTERIOR AND POSTERIOR POSITIONS. 01/11/2016 CABG: [facility] 11/11/16 REHAB [facility] 11/21 POST RIGHT HAND HAND AND ELBOW SURGERY 10/2019 REVIEW OF SYSTEMS CONSTITUTIONAL: ANY RECENT FEVER NO . CHILLS NO . WEIGHT CHANGE OF UNKNOWN REASONS NO . GASTROENTEROLOGY: NEW UNEXPLAINABLE CHANGES IN BOWEL CONTROL NO . CONSTIPATION NO . GENITOURINARY: ANY NEW CHANGE IN BLADDER CONTROL? NO . NEUROLOGY: NEW ONSET DIZZINESS OR NEUROLOGICAL CHANGES NOT MENTIONED NO . NEW NUMBNESS OR PAIN PATTERNS NOT MENTIONED AND PERTINENT TO TODAY'S VISIT NO . CARDIOLOGY: NEW CHEST PRESSURE NO . NEW CHEST PAIN NO . RESPIRATORY: UNEXPLAINABLE COUGH NO . NEW SHORTNESS OF BREATH NO . VITAL SIGNS WT 301.2 LBS, HT 68 IN, BMI 45.79 INDEX, BP 115/68 MM HG, HR 68 /MIN, RR 18 /MIN, TEMP 98.4 F, OXYGEN SAT % 97%, SAFE IN ENV? (Y/N) YES, NA INITIALS AW 1000, REVIEWED BY: JS. EXAMINATION GENERAL EXAMINATION: GENERAL ALERT,NO DISTRESS . PSYCH AFFECT NORMAL . LUNGS: LUNG SOUNDS ARE CLEAR . HEART: HEART RATE REGULAR . MUSCULOSKELETAL: MST 5/5 BILAT. LOWER EXTREMITIES . LUMBAR: TENDERNESS LEFT SIJ . POSITIVE EMANI'S TESTING OVER LEFT LEG. DIAGNOSTIC TESTS REVIEWED CT L/S [id number] . ASSESSMENTS SACROILIITIS - M46.1 (PRIMARY) TREATMENT SACROILIITIS NOTES: CONTINUE FOLLOW-UP WITH DR. IRIZARRY, PODIATRY FOR LEFT FOOT INFECTION STATUS POST LEFT FOOT SURGERY A FEW WEEKS AGO. FOLLOW-UP IS SCHEDULED IN 2 MONTHS TO DISCUSS LEFT SACROILIAC JOINT BLOCK. PROCEDURE CODES FA211 ESTABILISHED PATIENT [facility] CHARGE DISPOSITION & COMMUNICATION FOLLOW UP 2 MONTHS (REASON: LEFT SACROILIAC JOINT BLOCK EVALUATION) ELECTRONICALLY SIGNED BY PABLO KAM ON 08/09/2020 AT 09:30 AM EST DISCLAIMER : THIS IS A VISIT SUMMARY EXTRACTED FROM THE [employer] CHART. IT IS NOT A COPY OF THE [employer] PROGRESS NOTE. GERALD
== END ==
LOC: M PAIN 10:00
PROVIDERS: ATTEND Nurse Practitioner Family
DX: M46.1 Sacroiliitis, not elsewhere classified (principal); G89.29 Other chronic pain; E78.5 Hyperlipidemia, unspecified; K21.9 Gastro-esophageal reflux disease without esophagitis; G47.33 Obstructive sleep apnea (adult) (pediatric); Z86.59 Personal history of other mental and behavioral disorders; Z87.891 Personal history of nicotine dependence; Z88.5 Allergy status to narcotic agent; Z91.018 Allergy to other foods; Z91.040 Latex allergy status; Z91.09 Other allergy status, other than to drugs and biological substances; E66.01 Morbid (severe) obesity due to excess calories; Z68.42 Body mass index [BMI] 45.0-49.9, adult; Z79.899 Other long term (current) drug therapy

== ENCOUNTER → 2020-08-17 | Outpatient (CLI) | payer OTHER ==
[2020-08-17 12:39] LABS: ALBUMIN 3.6 GM/DL (3.2-5.2); BILIRUBIN,TOTAL 0.3 MG/DL (0.2-1.0); CALCIUM LEVEL 8.8 MG/DL (8.5-10.1); CHOLESTEROL RISK RATIO 4.888 (<5); CREATININE FOR GFR 1.47 MG/DL (0.70-1.30); FREE T4 0.6 NG/DL (0.76-1.46); GLOMERULAR FILTRATION RATE 53.3 (>56); POTASSIUM SERUM 4.2 MEQ/L (3.5-5.1); THYROID STIMULATING HORMONE 2.24 uIU/ML (0.358-3.740); TOTAL PROTEIN 6.6 GM/DL (6.4-8.2)
[2020-08-17 12:40] LABS: TOTAL 25(OH) VITAMIN D 22.4 NG/ML (30.0-100.0)
== END ==
LOC: M LAB 11:36
PROVIDERS: ATTEND Nurse Practitioner Family
DX: I10 Essential (primary) hypertension (principal); E78.00 Pure hypercholesterolemia, unspecified; E03.9 Hypothyroidism, unspecified; K21.9 Gastro-esophageal reflux disease without esophagitis; E55.9 Vitamin D deficiency, unspecified

== ENCOUNTER 2020-08-18 16:23 | Emergency (ER) | payer OTHER ==
[~2020-08-18] VITALS: Ht 172.7 cm; Wt 136.4 kg
[2020-08-18] MEDS ORDERED: ASPIRIN 81 MG CHEW TABLET PO ONE (17:00)
[2020-08-18 17:06] LABS: HEMATOCRIT 45.2 % (42.0-52.0); HEMOGLOBIN 13.9 g/dl (13.5-17.5); MEAN CORPUSCULAR HEMOGLOBIN 28.5 pg (27.0-33.0); MEAN CORPUSCULAR HGB CONC 30.8 g/dl (32.0-36.5); MEAN CORPUSCULAR VOLUME 92.6 fl (80.0-96.0); PLATELET COUNT, AUTOMATED 225 10^3/uL (150-450); RED BLOOD COUNT 4.88 10^6/uL (4.30-6.10); WHITE BLOOD COUNT 5.1 10^3/uL (4.0-10.0)
--- NOTE | 2020-08-18 17:13 | REP ---
INDICATION: CHEST PAIN. COMPARISON: Frontal view obtained as part of a rib series 06/23/2020. FINDINGS: The technique utilized in obtaining the radiograph has magnified the cardiac silhouette and accentuated the interstitial markings. The superior mediastinal structures are midline. The cardiac silhouette is enlarged but accentuated by technique. Note is again made of previous median sternotomy.. The diaphragmatic surfaces of the lungs are regular, and the costophrenic angles are clear. The pulmonary johnson are clear. The imaged osseous structures are intact. IMPRESSION: There is no acute cardiopulmonary disease. <Electronically signed by John Fry > 08/18/20 [id number]
[2020-08-18 17:31] LABS: INR 0.94; PROTHROMBIN TIME 12.8 SECONDS (12.5-14.3)
[2020-08-18 17:33] LABS: ALBUMIN 3.5 GM/DL (3.2-5.2); ALT/SGPT 34 U/L (12-78); BILIRUBIN,DIRECT < 0.1 MG/DL (0.0-0.2); BILIRUBIN,TOTAL 0.4 MG/DL (0.2-1.0); LIPASE 101 U/L (73-393); NT-PRO BNP 132 PG/ML (<125); TOTAL PROTEIN 6.7 GM/DL (6.4-8.2)
[2020-08-18 17:34] LABS: D-DIMER QUANT 320.77 ng/ml (<500)
[2020-08-18 17:45] LABS: ATYPICAL LYMPH 4 % (0-5); EOSINOPHILS 3 % (0-3); LYMPHOCYTES 27 % (16-44); MONOCYTES 10 % (0-5); NEUTROPHILS 56 % (28-66)
[2020-08-18 17:46] LABS: HYPOCHROMASIA 1+
[2020-08-18 17:47] LABS: ANISOCYTOSIS 1+; PLATELET ESTIMATE NORMAL (NORMAL)
[2020-08-18] MEDS ORDERED: GI COCKTAIL 50ML BTL(HYOSCYAMINE/MAALOX/LIDOCAINE VISCOUS)(1:3:1) PO ONE (19:30)
[2020-08-18 20:46] VITALS: BP 111/65
--- NOTE | 2020-08-20 10:03 | ECGEPIP ---
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
--- NOTE | 2020-08-20 10:04 | ECGEPIP ---
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
== END 2020-08-18 22:05 | disposition home or self-care (01) ==
LOC: EDBD 16:23 → M ED 16:23
DX: R07.89 Other chest pain (principal); R00.1 Bradycardia, unspecified; K21.9 Gastro-esophageal reflux disease without esophagitis; E03.9 Hypothyroidism, unspecified; Z87.442 Personal history of urinary calculi; F41.0 Panic disorder [episodic paroxysmal anxiety]; Z95.4 Presence of other heart-valve replacement; Z86.711 Personal history of pulmonary embolism; Z79.899 Other long term (current) drug therapy; Z91.89 Other specified personal risk factors, not elsewhere classified; Z91.040 Latex allergy status; Z88.5 Allergy status to narcotic agent

== ENCOUNTER 2020-09-22 13:56 | Emergency (ER) | payer MEDICAID, OTHER ==
[~2020-09-22] VITALS: Ht 172.7 cm; Wt 136.4 kg
[~2020-09-22 13:56] MED LIST changes: -MONT10TA4 PO; +MONT5TAB2 PO; +RISP-7 PO; +RISP-9 PO; -RISP0.5T3 PO; -RISP2TAB3 PO
--- NOTE | 2020-09-22 14:44 | REP ---
INDICATION: trauma thumb COMPARISON: None. TECHNIQUE: AP, lateral, bilateral oblique views left 1st digit. FINDINGS: Age-related degenerative changes are appreciated. Examination is limited by positioning. No obvious acute fracture or dislocation identified. IMPRESSION: Degenerative changes. Limited evaluation for fracture. <Electronically signed by Costa Meyers > 09/22/20 [id number]
[2020-09-22 15:51] VITALS: BP 150/86
== END 2020-09-22 15:53 | disposition home or self-care (01) ==
LOC: M ED 13:56
DX: S63.602A Unspecified sprain of left thumb, initial encounter (principal); W23.0XXA Caught, crushed, jammed, or pinched between moving objects, initial encounter; Y92.89 Other specified places as the place of occurrence of the external cause; Y93.89 Activity, other specified; Y99.9 Unspecified external cause status; Z95.4 Presence of other heart-valve replacement; R51.9 Headache, unspecified; I50.9 Heart failure, unspecified; E78.00 Pure hypercholesterolemia, unspecified; I10 Essential (primary) hypertension; G47.30 Sleep apnea, unspecified; Z86.711 Personal history of pulmonary embolism; H40.9 Unspecified glaucoma; K21.9 Gastro-esophageal reflux disease without esophagitis; Z86.010 Personal history of colon polyps; Z87.442 Personal history of urinary calculi; E03.9 Hypothyroidism, unspecified; K76.9 Liver disease, unspecified; M54.9 Dorsalgia, unspecified; F41.0 Panic disorder [episodic paroxysmal anxiety]; F32.9 Major depressive disorder, single episode, unspecified; Z79.899 Other long term (current) drug therapy; Z91.89 Other specified personal risk factors, not elsewhere classified; Z91.040 Latex allergy status; Z88.5 Allergy status to narcotic agent

== ENCOUNTER → 2020-09-24 | Outpatient (CLI) | payer OTHER ==
--- NOTE | 2020-09-24 23:06 | ECWPNPC ---
PATIENT NAME: DEANNA AN : 1965 GENDER: MALE VISIT DATE: 09/24/2020 DISCHARGE DATE: 09/24/20 1113 VISIT LOCKED DATE TIME: PHYSICIAN: MINA HAYWOOD PHYSICIAN PAGER NO: ACTIVE RESOURCE: MINA HAYWOOD REASON FOR APPOINTMENT 1. LEFT SACROILIAC JOINT BLOCK EVALUATION HISTORY OF PRESENT ILLNESS PAIN CENTER INTAKE QUESTIONS: DO YOU HAVE A HISTORY OF MRSA? :NO DO YOU TAKE A BLOOD THINNERS? :NO DO YOU HAVE ANY BLEEDING DISORDERS? :NO ANY NEW NUMBNESS OR WEAKNESS IN YOUR LEGS OR ARMS? :NO ANY PACEMAKER,DEFIBRILLATOR, OR DORSAL COLUMN STIMULATOR? :NO DO YOU HAVE ANY RASHES OR OPEN SORES? :NO ARE YOU ALLERGIC TO IV DYE? :NO ARE YOU DIABETIC? :NO ANY NEW PROBLEMS WITH YOUR MEDICATIONS? :NO HAVE YOU RECEIVED A VACCINE IN THE PAST 30 DAYS? :NO DO YOU PLAN TO RECEIVE A VACCINE IN THE NEXT 21 DAYS? :NO DO YOU NEED ANY PRESCRIPTION? :YES TRAMADOL DO YOU TAKE ANY IMMUNOSUPPRESSIVE MEDICATIONS? :NO IS THERE A CHANCE YOU COULD BE ? :NO ARE YOU BREAST FEEDING? :NO GENERAL: HERE FOR FOLLOW-UP OF CHRONIC LOW BACK PAIN. REPORTING INCREASE IN LEFT LOW BACK PAIN THAT RADIATES INTO LEFT THIGH. HAS RESPONDED WELL TO LEFT SACROILIAC JOINT BLOCKS IN THE PAST. CURRENTLY USING TIZANIDINE OR TRAMADOL PERIODICALLY FOR SEVERE PAIN EPISODES. FINDS THIS MEDICATION SOMEWHAT HELPFUL. DENIES ADVERSE SIDE EFFECTS. REVIEWED MRI OF THE LS-SPINE AND DISCUSSED TREATMENT PLAN. -. FALL RISK SCREENING: SCREENING :NO FALLS REPORTED IN THE LAST YEAR PAIN SCREENING: PATIENT HAS A COMPLAINT OF ACUTE OR CHRONIC PAIN :YES LOCATION OF PAIN:LOW BACK, LEFT HIP LEFT LEG INTENSITY OF PAIN (SCALE OF 1 TO 10):10 WHAT DOES YOUR PAIN FEEL LIKE:SHARP, OTHER NUMBNESS DURATION:CONTINOUS, ALL DAY PAIN IS INCREASED BY:OTHERS WALKING PAIN IS DECREASED BY:OTHERS HEATING PADS NURSING NOTE: -. CURRENT MEDICATIONS TAKING ESCITALOPRAM OXALATE 10 MG TABLET 1 TABLET ORAL ONCE A DAY ALONG WITH A 20 MG TABLET TAKING VENTOLIN HFA 108 (90 BASE) MCG/ACT AEROSOL SOLUTION INHALE TWO PUFFS BY MOUTH EVERY FOUR HOURS NEEDED INHALATION - TAKING BUSPIRONE HCL 10 MG TABLET TAKE ONE TABLET BY MOUTH @8AM AND TAKE ONE TABLET @8PM ORAL TAKING OMEPRAZOLE 40 MG CAPSULE DELAYED RELEASE TAKE ONE CAPSULE BY MOUTH @8AM ON AN EMPTY STOMACH ORAL TAKING TRIHEXYPHENIDYL HCL 2 MG TABLET TAKE ONE TABLET BY MOUTH TWICE DAILY ORALLY BID TAKING FAMOTIDINE 20 MG TABLET TAKE ONE TABLET BY MOUTH @8AM AND TAKE ONE TABLET BY MOUTH @8PM ORAL TAKING METOPROLOL TARTRATE 25 MG TABLET 1/2 TAB ORAL DAILY TAKING GABAPENTIN 600 MG TABLET TAKE ONE TABLET BY MOUTH @8AM AND TAKE ONE TABLET @12PM AND TAKE ONE TABLET @8PM ORAL Q8H TID TAKING TOPIRAMATE 50 MG TABLET 1 TABLET ORALLY ONCE A DAY TAKING LEVOTHYROXINE SODIUM 25 MCG TABLET 1 TABLET IN THE MORNING ON AN EMPTY STOMACH ORALLY ONCE A DAY TAKING SULFAMETHOXAZOLE-TMP DS 1 TAB TWICE DAILY TAKING CETIRIZINE HCL 10 MG TABLET 1 TABLET ORALLY ONCE DAILY TAKING MONTELUKAST SODIUM 10 MG TABLET 1 TABLET ORALLY ONCE A DAY TAKING ATORVASTATIN CALCIUM 40 MG TABLET TAKE 1 TABLET BY MOUTH ONCE A DAY TAKING TRAMADOL HCL 50 MG TABLET 1 TABLET NEEDED ORALLY Q6H PRN MDD4 TAKING TIZANIDINE HCL 4 MG TABLET 1 TABLET NEEDED ORALLY THREE TIMES A DAY NOT-TAKING TRAMADOL HCL 50 MG TABLET 1 TABLET NEEDED ORALLY ONCE A DAY, NOTES: DUPLICATE NOT-TAKING DERMOTIC 0.01 % OIL 5 GTT INTO EACH EAR OTIC TWICE A DAY NOT-TAKING DAPSONE 25 MG TABLET 1 TABLET ORALLY ONCE A DAY UNKNOWN BETAMETHASONE DIPROPIONATE AUG 0.05 % OINTMENT 1 APPLICATION TO AFFECTED AREA EXTERNALLY BID TO RASH ON ELBOW, NOTES: 1 WEEK AGO UNKNOWN SUCRALFATE 1 GM TABLET TAKE ONE TABLET BY MOUTH FOUR TIMES DAILY AFTER MEALS ORAL , NOTES: 04/17 600 UNKNOWN ACETAMINOPHEN 500 MG CAPSULE 2 CAPSULE ORALLY EVERY 8 HRS NEEDED FOR PAIN, NOTES: NONE RECENT UNKNOWN ESCITALOPRAM OXALATE 20 MG TABLET 1 TABLET ORALLY ONCE A DAY, NOTES: 04/16 2000 UNKNOWN FISH OIL + D3 [id number] MG-UNIT CAPSULE 1 CAPSULE ORALLY BID OTC, NOTES: 04/17 600 UNKNOWN MULTIVITAMIN ADULT - TABLET DIRECTED ORALLY , NOTES: 04/17 600 UNKNOWN VITAMIN D 1000 UNIT TABLET 1 TABLET ORALLY ONCE A DAY, NOTES: 04/17 600 UNKNOWN HYDROCORTISONE 1 % CREAM 1 APPLICATION RASH ONCE A DAY, NOTES: 04/17 600 UNKNOWN ONDANSETRON HCL 4 MG TABLET TAKE ONE TABLET BY MOUTH ONE TO TWO TIMES A DAY BEFORE MEALS, TAKE ONLY WHEN HAVING NAUSEA ORAL , NOTES: 04/16 2000 UNKNOWN IBUPROFEN 600 MG TABLET 1 TABLET WITH FOOD OR MILK NEEDED ORALLY BID NEEDED, NOTES: NONE RECENT UNKNOWN ASPIRIN 81 MG TABLET CHEWABLE 1 TABLET ORALLY ONCE A DAY, NOTES: 04/17 0600 UNKNOWN FLUTICASONE PROPIONATE 50 MCG/ACT SUSPENSION 1 SPRAY IN EACH NOSTRIL NASALLY BID, NOTES: 04/16 2000 UNKNOWN OCEAN NASAL SPRAY 0.65 % SOLUTION 2 SPRAYS IN EACH NOSTRIL NEEDED NASALLY 4X DAILY, NOTES: 04/16 2000 UNKNOWN SINGULAIR 10 MG TABLET 1 TABLET ORALLY AT BEDTIME, NOTES: 04/16 2000 UNKNOWN TOPIRAMATE 25 MG TABLET 1 TABLET ORALLY ONCE A DAY, NOTES: 04/16 2000 UNKNOWN NITROGLYCERIN 0.4 MG TABLET SUBLINGUAL DIRECTED SUBLINGUAL UNKNOWN TIZANIDINE HCL 4 MG TABLET 1 TAB ORAL Q8H TID, NOTES: 04/16 2000 MEDICATION LIST REVIEWED AND RECONCILED WITH THE PATIENT PAST MEDICAL HISTORY DEPRESSION/ANXIETY- DR LAWLER. /THERAPIST Q2 WEEKS HYPERLIPIDEMIA GERD WITH BARRETTS: REPEAT EGD IN 07/2018 VITAMIN D DEF FRAN: FOLLOWING WITH PULMONOLOGY: COMPLIANT WITH CPAP-PULMONOLOGY CAD: BYPASS WITH AUTOLOGOUS VEIN: DR. VALENCIA AT [facility] ECHO 10/17/2016. HYPERTENSIVE HEART DISEASE CARDIAC PET NUCLEAR STRESS 09/26/2016. LVEF 66% BACK PAIN HISTORY OF [place], MEASLES, MUMPS LYTIC LESION ADJACENT TO RT LOBE LIVER APPEARING WITHIN GB FOSSA: NO SURGICAL INTERVENTION IDICATED: DR. DOMINIQUE THYROID U/S 09/16 DIFFUSE HETEROGENEITY 2 6MM NODULES AT [facility]. - DR HERMILA RAUSCH CARDIAC CATH WITH CABG 11/13/2016 SPECT STRESS LVEF 55%, NO EVIDENCE OF ISCHEMI, LEFT VENTRICULAR DIALATION WITH STRESS 08/26/2017 EUS (ENDOSCOPIC U/S-DR. LE)-NO PANCREATIC MASS OR COMMON BILE DUCT STRICTURE HIDA SCAN-UNREMARKABLE 2018, NORMAL GB AND EF, HYPERTONIC SPHINCTER OF ODDI FATTY LIVER WITH FATTY PANCREAS COLONOSCOPY 2017 UPPER ENDOSCOPY 2018 GALLBLADDER U/S 04/23/18: FATTY INFILTRATE OF LIVER AND EXOPHYTIC CYST ON THE RIGHT LOBE. NO HEPATIC SOLID MASS OR BILLARY DILATATION. GALLBLADDER WITHOUT ACUTE FINDINGS ECHO: 12/20/17-NO SIGNIFICANT VALVULAR DISEASE, LEFT VENTRICULAR SYSTOLIC FUNCTION NORMAL, LEFT VENTRICULAR DIASTOLIC FUNCTION NORMAL, CONCENTRIC LEFT CENTRICULAR HYPERTROPHY MILD, HYPERTNESIVE HEART DISEASE MODERATE. MILDLY DILATED LEFT ATRIUM 4.3CM. MILDLY DILATED AORTIC ROOT AT 4.0CM. TRACE TO SMALL PERICARDAL EFFUSION NOTED POSTERIORLY IN LIMITED VIEWS, NO EVIDENCE OF CARDIAC TAMPONADE. LVEF 55-60% DERMATITIS HERPETIFORMIS CARPAL TUNNEL HAMMER TOES ALLERGIES CODEINE PHOSPHATE (FOR ALLERGIES USE ONLY): NAUSEA/VOMITING - SIDE EFFECTS LATEX (FOR ALLERGY USE ONLY): RASH - ALLERGY ADHESIVE TAPE: RASH - ALLERGY GLUTEN ALLERGY: RASH - ALLERGY SURGICAL HISTORY LEFT HAND, 5TH DIGIT, REMOVED TUMOR 1979 & 2016 TONSILLECTOMY CHILD COLONOSCOPY- INTERNAL HEMORRHOID, POLYP X 1- ADENOMATOUS 02/02/15 COLONOSCOPY - 2 TUBULAR ADENOMAS, MUCOSAL ULCERATION, MODERATE DIVERTICULOSIS IN THE SIGMOID COLON, EXTERNAL HEMORRHOIDS. SIGMOIDOSCOPY DUE 10/2018, REPEAT COLONOSCOPY 5 YRS 10/13/17 EGD- [facility] 02/02/15 HEMORRHOIDECTOMY 4-- LEFT FOOT BUNIONECTOMY WITH FIRST METATARSAL OSTEOSTOMY-DR. IRIZARRY 03/31/16 CABG- 4 VESSEL AT [facility] 11/11/16 LEFT HAND CP SX, AND TENDON REMOVAL. BONE AND JOINT [facility] 01/2018 UPPER ENDOSCOPIC ULTRASOUND WITH ANESTHESIA 07/2018 WIRES REMOVED FROM CHEST 09/29/2018 HAMMER TOE, LEFT FOOT, DR. IRIZARRY 03/30/19 EGD-DR. BEGUM 01/2019 HAMMERTOE 03/2019 RIGHT HAND TRIGGER AND CARPEL TUNNEL -2019 R2ND TOE RGREAT TOE SURGERY 06/2020 SCREW REMOVAL FOOT RIGHT FOOT HAMMER TOE CORRECTION 07/2020 LEFT FOOT SCREW REMOVAL WITH BONE FILING 07/2020 FAMILY HISTORY FATHER: 79 YRS, [place], HTN, DIAGNOSED WITH HYPERTENSION, UNSPECIFIED HEART DISEASE IN 62 MOTHER: ALIVE 66 YRS, HTN, UNSPECIFIED HEART DISEASE, HYPERTENSION 1 BROTHER(S) , 1 SISTER(S) - HEALTHY. 3 HALF BROTHER, 1 HALF SISTER-HEALTHY, NO KNOWN FAMILY HISTORY OF ANY UROLOGICALLY RELATED DISEASES CANCERS. DENIES ANY FAMILY HX SKIN CANCER OR PANCREATIC CANCER. SOCIAL HISTORY GENERAL: TOBACCO USE ARE YOU A:FORMER SMOKER HOW LONG HAS IT BEEN SINCE YOU LAST SMOKED?5-10 YEARS LATEX QUESTIONNAIRE LATEX ALLERGY : HAVE YOU EVER DEVELOPED ANY TYPE OF REACTION AFTER HANDLING LATEX PRODUCTS SUCH RUBBER GLOVES, CONDOMS, DIAPHRAGMS, BALLOONS, SOCKS, OR UNDERWEAR?YES - PLEASE INDICATE :RUBBER GLOVES, CONDOMS, BALLOONS RASH LATEX ALLERGY : HAVE YOU EVER DEVELOPED ANY TYPE OF REACTION DURING OR AFTER DENTAL APPOINTMENT, VAGINAL/RECTAL EXAMINATION, SURGICAL PROCEDURE, OR ANY OTHER EXPOSURE?NO LATEX RISK : HAVE YOU EVER HAD ANY DIFFICULTY BREATHING OR HIVES AFTER EATING OR HANDLING ANY FRUITS, OR VEGETABLES; SUCH KIWI, BANANAS, STONE FRUITS, OR CHESTNUTSNO LATEX RISK : DO YOU HAVE A PREVIOUS PERSONAL HISTORY OF MORE THAN NINE SURGERIES, SPINA BIFIDA, OR REPEATED CATHERIZATIONS? NO LATEX RISK : ARE YOU FREQUENTLY EXPOSED TO LATEX PRODUCTS IN YOUR OCCUPATION?NO DATE ASKED : 08/08/2020 LUNG CANCER SCREENING SMOKING STATUS:FORMER SMOKER IS THE PATIENT BETWEEN THE AGE OF 57 AND 79?NO BMI CARE GOAL FOLLOW-UP ABOVE NORMAL BMI FOLLOW-UPDIETARY MANAGEMENT EDUCATION, GUIDANCE, AND COUNSELING ALCOHOL SCREENING DID YOU HAVE A DRINK CONTAINING ALCOHOL IN THE PAST YEAR?NO POINTS0 INTERPRETATIONNEGATIVE RECREATIONAL DRUG USE DRUG USE?NO CAFFEINE CAFFEINE USE?YES COFEE: 1 CUPS PER DAY SEXUAL HX HAD SEX IN THE LAST 12 MONTHS (VAGINAL, ORAL, OR ANAL)?: NO, HAVE YOU EVER HAD AN STD?: NO. HIV / HEP-C SCREENING HIV TEST OFFERED TO PATIENT:NO HEP-C TEST OFFERED TO PATIENT:NO BUDDHISM [id number] DRUZE NO PENTECOSTAL BELIEFS THAT WOULD IMPACT HEALTH CARE. LANGUAGE LANGUAGES SPOKEN:THAI EDUCATION 3RD GRADE. STATES IS ABLE TO READ NEWSPAPER. WRITES BUT SPELLING IS NOT GOOD.. LEARNING BARRIERS / SPECIAL NEEDS CHANGE FROM LAST VISIT?NO BARRIERS TO LEARNING?YES COMMENTS LEARNING DISABILITY HEARING IMPAIRED?NO VISION IMPAIRED?YES :CORRECTIVE LENSES COGNITIVELY IMPAIRED?NO READINESS TO LEARN?YES LEARNING PREFERENCES?NO LEARNING CAPABILITIES PRESENT?YES EMOTIONAL BARRIERS?NO SPECIAL DEVICES?NO THEATRE INSTRUCTOR NEEDED?NO OCCUPATION: DISABLED, SSI. DIET: REGULAR. EXERCISE: NO REGULAR EXERCISE. MARITAL STATUS: SINGLE. PAIN CLINIC PFS, CLERGY, PUBLIC HEALTH REFERRALS HAS THE PATIENT BEEN EDUCATED REGARDING HIS/HER PLAN OF CARE?YES HAS THE PATIENT BEEN EDUCATED REGARDING PAIN, THE RISK FOR PAIN, THE IMPORTANCE OF EFFECTIVE PAIN MANAGEMENT, AND THE PAIN ASSESSMENT PROCESS?YES HOUSING: RENTS APARTMENT. ADVANCE DIRECTIVE ADVANCE DIRECTIVE DISCUSSED WITH PATIENT:YES PT DOES NOT HAVE ANY ADVANCED DIREDTIVES AND HE DECLINES INFORMATION ON HCP AT THIS TIME. HOSPITALIZATION/MAJOR DIAGNOSTIC PROCEDURE [facility]- DEPRESSION/ANXIETY 14 YO HOUSE OF [facility]- DEPRESSION 18 YO [facility]- LOCKED FACILTY- [place] OF DEPRESSION. [age]YO HEMORRHOIDECTOMY WITH REMOVAL OF A MIXED HEMORRHOIDAL BUNDLES AT THE LEFT LATERAL AND RIGHT ANTERIOR AND POSTERIOR POSITIONS. 01/11/2016 CABG: [facility] 11/11/16 REHAB [facility] 11/21 POST RIGHT HAND HAND AND ELBOW SURGERY 10/2019 [facility] ED- POST-OP PROBLEM, LEFT FOOT CELLULITIS 08/03/2020 REVIEW OF SYSTEMS CONSTITUTIONAL: ANY RECENT FEVER NO . CHILLS NO . WEIGHT CHANGE OF UNKNOWN REASONS NO . GASTROENTEROLOGY: NEW UNEXPLAINABLE CHANGES IN BOWEL CONTROL NO . CONSTIPATION NO . GENITOURINARY: ANY NEW CHANGE IN BLADDER CONTROL? NO . NEUROLOGY: NEW ONSET DIZZINESS OR NEUROLOGICAL CHANGES NOT MENTIONED NO . NEW NUMBNESS OR PAIN PATTERNS NOT MENTIONED AND PERTINENT TO TODAY'S VISIT NO . CARDIOLOGY: NEW CHEST PRESSURE NO . NEW CHEST PAIN NO . RESPIRATORY: UNEXPLAINABLE COUGH NO . NEW SHORTNESS OF BREATH NO . VITAL SIGNS WT 305.0 LBS, HT 68 IN, BMI 46.37 INDEX, BP 121/76 MM HG, HR 85 /MIN, RR 18 /MIN, TEMP 96.9 F, OXYGEN SAT % 98%, SAFE IN ENV? (Y/N) YES, NA INITIALS AW 1009, REVIEWED BY: BOGDAN LEAHY. EXAMINATION GENERAL EXAMINATION: GENERAL ALERT,NO DISTRESS . PSYCH AFFECT NORMAL . LUNGS: LUNG SOUNDS ARE CLEAR . HEART: HEART RATE REGULAR . MUSCULOSKELETAL: MST 5/5 BILAT. LOWER EXTREMITIES . LUMBAR: TENDERNESS OVER LEFT SIJ . DIAGNOSTIC TESTS REVIEWEDMRI L/S SPINE 2018. ASSESSMENTS SACROILIITIS - M46.1 (PRIMARY) CHRONIC PRESCRIPTION OPIATE USE - Z79.891 TREATMENT SACROILIITIS REFILL TRAMADOL HCL TABLET, 50 MG, 1 TABLET NEEDED, ORALLY, Q6H PRN MDD4, 30 DAYS, 120, REFILLS 1 REFILL TIZANIDINE HCL TABLET, 4 MG, 1 TABLET NEEDED, ORALLY, THREE TIMES A DAY NEEDED FOR SEVERE PAIN, 30 DAYS, 45, REFILLS 1 NOTES: LEFT SACROILIAC JOINT BLOCK , ISTOP REGISTRY REVIEWED AND DEMONSTRATES COMPLLIANCE. URINE TOXICOLOGY TODAY , RISKS OF NARCOTIC/OPIOD MEDICATIONS INCLUDES BUT IS NOT LIMITED TO RISK OF DEPENDANCE/DEVELOPMENT OF ADDICTION, MOOD DISTURBANCE AND DEPRESSION, OSTEOPOROSIS, HORMONAL AND LABIDAL CHANGES, RESPIRATORY DEPRESSION AND . PATIENT IS ADVISED NOT TO DRIVE OR DRINK ALCOHOL WHILE ON THESE MEDICATIONS , [facility] NARCOTIC AGREEMENT WAS REVIEWED/UPDATED AND SIGNED TODAY BY THE PATIENT. SEE ATTACHED DOCUMENT FOR FULL DETAILS; SPECIFIC ISSUES WERE REVIEWED: 1) KEEP PAIN MEDS IN THEIR ORIGINAL BOTTLES AND ANY WEEKLY PLANNERS ARE TO BE BROUGHT TO THE PAIN CENTER AT EVERY VISIT. 2) THE PATIENT IS NOT TO INCREASE DOSING OR TIMING OF THEIR PAIN MEDICATION WITHOUT SPECIFIC DIRECTION OF THEIR PAIN CENTERPROVIDER (NOT ER OR OTHER PROVIDERS). 3) ALL PAIN MEDS ARE TO BE KEPT SECURED, IN A LOCKED BOX. 4) NO PAIN MEDS ARE TO BE SHARED WITH ANY OTHER PERSON FOR ANY REASON. 5) NO PAIN MEDS MAY BE TAKEN FROM ANY FRIENDS OR RELATIVES FOR ANY REASON 6) NO MEDS OR SUBSTANCES WHICH ARE NOT LEGAL ARE TO BE USED- NO MARIJUANA, NO COCAINE, AMPHETAMINES, HEROIN, OR OTHERS ARE EVER TO BE USED. 7)URINE TESTING IS DONE TO ACCOUNT FOR MEDS AND SUBSTANCES BEING TAKEN AND WILL BE DONE RANDOMLY.,SACROILIAC JOINT PAIN MATERIAL WAS PUBLISHED TO [employer] 09/24/2020 PATIENT GIVEN INFORMATION ON SACROILIAC JOINT INJECTION. REVIEWED PRE-PROCEDURE INSTRUCTIONS WITH PATIENT. PATIENT VERBALIZED AN UNDERSTANDING. David SANTIAGO RN. OTHERS NOTES: PATIENT EDUCATION WAS PRINTED. PROCEDURE CODES FA211 ESTABILISHED PATIENT [facility] CHARGE DISPOSITION & COMMUNICATION FOLLOW UP POST PROCEDURE (REASON: LEFT SACROILIAC JOINT BLOCK/REVIEW URINE TOXICOLOGY) ELECTRONICALLY SIGNED BY PABLO KAM ON 09/24/2020 AT 03:21 PM EST DISCLAIMER : THIS IS A VISIT SUMMARY EXTRACTED FROM THE [employer] CHART. IT IS NOT A COPY OF THE [employer] PROGRESS NOTE. GERALD
== END ==
LOC: M PAIN 10:30
PROVIDERS: ATTEND Nurse Practitioner Family
DX: M46.1 Sacroiliitis, not elsewhere classified (principal); G89.29 Other chronic pain; K21.9 Gastro-esophageal reflux disease without esophagitis; G47.33 Obstructive sleep apnea (adult) (pediatric); Z86.59 Personal history of other mental and behavioral disorders; Z87.891 Personal history of nicotine dependence; Z88.5 Allergy status to narcotic agent; Z91.018 Allergy to other foods; Z91.040 Latex allergy status; Z91.09 Other allergy status, other than to drugs and biological substances; E66.01 Morbid (severe) obesity due to excess calories; Z68.42 Body mass index [BMI] 45.0-49.9, adult; Z79.899 Other long term (current) drug therapy

== ENCOUNTER 2020-10-27 13:29 | Emergency (ER) | payer MEDICAID, OTHER ==
[~2020-10-27] VITALS: Ht 172.7 cm; Wt 139.4 kg
[~2020-10-27 13:29] MED LIST changes: -ALBU8.5H; +ALBU8.5H INH; +BUTA-199 PO; -BUTATAB6 PO; +ESCI10TA16 PO; -ESCI10TA2 PO; -ESCI20TA PO; +ESCI20TA16 PO; +GABA-282 PO; -GABA-843 PO; +MONT10TA10 PO; -MONT5TAB2 PO
[2020-10-27] MEDS ORDERED: FAMO1TAB11 PO (14:01)
[2020-10-27] MEDS ORDERED: ONDA-83 PO (14:01)
[2020-10-27] MEDS ORDERED: FLUTISP (14:01)
[2020-10-27] MEDS ORDERED: OMEP-221 PO (14:01)
[2020-10-27] MEDS ORDERED: ACETAMINOPHEN 325 MG TAB PO ONE (14:30)
--- NOTE | 2020-10-27 15:40 | REP ---
INDICATION: slammed thumb in door. COMPARISON: Left hand 1st digit obtained 09/22/2020 for same reason. TECHNIQUE: Four views of the hand FINDINGS: The joint spaces are symmetric and relatively well maintained. There is no evidence of acute fracture or destructive osseous lesion. 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 Degenerative changes are seen involving the 1st carpometacarpal joint status quo. IMPRESSION: The 1st carpometacarpal joint and the 1st digit appear unchanged. An age undetermined fracture involving the base of the 1st metacarpal cannot be ruled. The changes seen today appear chronic. Correlate clinically. <Electronically signed by John Fry > 10/27/20 [id number]
[2020-10-27 16:27] VITALS: BP 109/71
== END 2020-10-27 16:29 | disposition home or self-care (01) ==
LOC: M ED 13:29
DX: S62.232A Other displaced fracture of base of first metacarpal bone, left hand, initial encounter for closed fracture (principal); W23.0XXA Caught, crushed, jammed, or pinched between moving objects, initial encounter; Y92.099 Unspecified place in other non-institutional residence as the place of occurrence of the external cause; Y93.89 Activity, other specified; Y99.9 Unspecified external cause status; Z95.4 Presence of other heart-valve replacement; I10 Essential (primary) hypertension; K21.9 Gastro-esophageal reflux disease without esophagitis; F32.9 Major depressive disorder, single episode, unspecified; E78.5 Hyperlipidemia, unspecified; Z95.5 Presence of coronary angioplasty implant and graft; G47.33 Obstructive sleep apnea (adult) (pediatric); Z87.891 Personal history of nicotine dependence; Z87.442 Personal history of urinary calculi; Z79.899 Other long term (current) drug therapy; Z91.89 Other specified personal risk factors, not elsewhere classified; Z88.5 Allergy status to narcotic agent; Z91.040 Latex allergy status

== ENCOUNTER 2020-11-12 15:56 | Emergency (ER) | payer OTHER ==
[~2020-11-12] VITALS: Ht 172.7 cm; Wt 139.6 kg
[~2020-11-12 15:56] MED LIST changes: +FLUTISP; +OMEP-221 PO; +ONDA-83 PO
--- NOTE | 2020-11-12 16:40 | REP ---
INDICATION: CHEST PAIN COMPARISON: 08/18/2020 TECHNIQUE: Portable AP view of the chest FINDINGS: The mediastinum and cardiac silhouette are stable and again demonstrate prior sternotomy and cardiac valve repair. Lung johnson demonstrate stable chronic changes. No obvious acute consolidation, effusion, or pneumothorax. Skeletal structures intact. IMPRESSION: Chronic appearing changes. No obvious acute consolidation or effusion. <Electronically signed by Costa Meyers > 11/12/20 [id number]
[2020-11-12 16:42] LABS: BASO # 0.1 10^3/uL (0.0-0.2); BASO % 0.6 % (0.0-1.0); EOS # 0.1 10^3/uL (0.0-0.5); EOS % 1.5 % (0.0-3.0); HEMATOCRIT 46.5 % (42.0-52.0); HEMOGLOBIN 14.6 g/dl (13.5-17.5); LYMPH # 1.7 10^3/uL (1.5-5.0); MEAN CORPUSCULAR HEMOGLOBIN 28.9 pg (27.0-33.0); MEAN CORPUSCULAR HGB CONC 31.4 g/dl (32.0-36.5); MEAN CORPUSCULAR VOLUME 91.9 fl (80.0-96.0); MONO # 0.8 10^3/uL (0.0-0.8); MONO % 10.3 % (0.0-5.0); NEUTROPHILS # 5.4 10^3/uL (1.5-8.5); NEUTROPHILS % 65.7 % (36.0-66.0); PLATELET COUNT, AUTOMATED 245 10^3/uL (150-450); RED BLOOD COUNT 5.06 10^6/uL (4.30-6.10); WHITE BLOOD COUNT 8.2 10^3/uL (4.0-10.0)
[2020-11-12] MEDS ORDERED: GI COCKTAIL 50ML BTL(HYOSCYAMINE/MAALOX/LIDOCAINE VISCOUS)(1:3:1) PO ONE (16:45)
[2020-11-12 17:01] LABS: INR 1.04; PARTIAL THROMBOPLASTIN TIME 29.6 SECONDS (24.2-38.5); PROTHROMBIN TIME 13.8 SECONDS (12.5-14.3)
[2020-11-12 17:15] LABS: BLOOD UREA NITROGEN 13 MG/DL (7-18); CARBON DIOXIDE LEVEL 25 MEQ/L (21-32); CHLORIDE LEVEL 106 MEQ/L (98-107); CREATININE FOR GFR 1.43 MG/DL (0.70-1.30); GLOMERULAR FILTRATION RATE 55.1 (>56); GLUCOSE, FASTING 110 MG/DL (70-100); POTASSIUM SERUM 3.8 MEQ/L (3.5-5.1); SODIUM LEVEL 141 MEQ/L (136-145)
[2020-11-12 17:16] LABS: CALCIUM LEVEL 9.3 MG/DL (8.5-10.1); CK-MB VALUE MASS 3.4 NG/ML (<3.6); CPK CREATINE PHOSPHOKINASE 241 U/L (39-308); MB/CK RELATIVE INDEX 1.41 (< OR =4); TROPONIN I < 0.02 NG/ML (< 0.10)
[2020-11-12 21:20] LABS: CK-MB VALUE MASS 3.1 NG/ML (<3.6); CPK CREATINE PHOSPHOKINASE 232 U/L (39-308); MB/CK RELATIVE INDEX 1.34 (< OR =4); TROPONIN I < 0.02 NG/ML (< 0.10)
[2020-11-12 21:55] VITALS: BP 141/74
--- NOTE | 2020-11-13 08:54 | ECGEPIP ---
[facility] - ED Test Date: 2020-11-12 Pat Name: DEANNA AN Department: Room: - Gender: Male Cdl Service Technician: vera : 1965 Requested By: MOISE Hernandez Order Number: [id number] Reading MD: Purvi Cox Measurements Intervals [place] Rate: 93 P: -2 NH: 171 QRS: -20 QRSD: 90 T: 49 QT: 364 QTc: 453 Interpretive Statements SINUS RHYTHM POSSIBLE LEFT ATRIAL ENLARGEMENT INCREASED RATE 08/18/20 Electronically Signed on 11-13-2020 8:54:11 EST by Purvi Cox
--- NOTE | 2020-11-13 08:59 | ECGEPIP ---
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
== END 2020-11-12 21:56 | disposition home or self-care (01) ==
LOC: M ED 15:56
DX: R07.89 Other chest pain (principal); I51.9 Heart disease, unspecified; E11.9 Type 2 diabetes mellitus without complications; I10 Essential (primary) hypertension; E78.5 Hyperlipidemia, unspecified; K21.9 Gastro-esophageal reflux disease without esophagitis; Z95.1 Presence of aortocoronary bypass graft; Z87.891 Personal history of nicotine dependence; Z79.899 Other long term (current) drug therapy; Z88.5 Allergy status to narcotic agent; Z91.89 Other specified personal risk factors, not elsewhere classified; Z91.040 Latex allergy status

== ENCOUNTER 2020-11-19 14:40 | Emergency (ER) | payer OTHER ==
[~2020-11-19] VITALS: Ht 172.7 cm; Wt 138.8 kg
[2020-11-19 14:40] VITALS: BP 174/90
--- OUTSIDE RECORDS SUMMARY | 2020-11-19 14:48 | CCD ---
Author Author [facility] Organization [facility] Address Unknown Phone Unavailable Care Team Providers Care Marketing Programs Manager Name Role Phone Winifred Greco Unavailable PROBLEMS Type Condition ICD9-CM Code [id number] Code Onset Dates Condition S tatus W/U Status Risk SNOMED Code Notes Problem Allergic rhinitis J30.9 Active confirmed 61 538397 Problem Coronary artery disease invo [place]ving [place] coronary artery of [place] heart, angina presence unspecified I25.10 Active confirmed 3861070895762 Problem Depression F32.9 Active confirmed 26443701 Problem Anxiety disorder, unspecified F41.9 Active confirm ed 376666524 Problem Essential hypertension I10 Active confirmed 92524597 Problem Intervertebral disc disorder with radiculopathy of lumbar region M51.16 Active confirmed 29505661 Problem Obesity, unspecified E66.9 Active confirmed 69671447336493 Problem Obstructive sleep apnea on CPAP G47.33 Active confi rmed 47624902 Problem Obstructive sleep apnea (adult) (pediatric) G47.33 Active confirmed 96668545 Problem Granuloma annulare L92.0 Active confirmed 6 1466523 Problem Gastroesophageal reflux disease with esophagitis K 21.0 Active confirmed 016886941 Problem Melanocytic nevi of trunk D22.5 Active confirmed 623066047 Problem Sebaceous hyperplasia L73.8 Active confirmed 733292847 Problem Spondylosis of lumbar region without myelopathy or radiculopathy M47.816 Active confirmed 603901804 Problem 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 Active confirmed 846966366 Problem Stage 3 chronic kidney disease N18.3 Active confir med 096943895 Problem Celiac disease K90.0 Active confirmed 48929 1005 Problem Hyperlipidemia E78.5 Active confirmed 82353 004 Problem CKD (chronic kidney disease), stage III N18.3 Active confirmed 756838247 Problem Hypothyroidism, unspecified type E03.9 Active conf irmed 62916224 Problem Carpal tunnel syndrome of right wrist G56.01 Ac tive confirmed 35079773 Problem Bilateral serous otitis media, unspecified chronicity H65.93 Active confirmed 45914667 Problem Unspecified open wound of right buttock, subsequ ent encounter S31.819D Active confirmed 24304039463331042 Problem 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 Active confirmed 03122 01 Problem Inflammation of both ear canals H60.93 Active confi rmed 7366209 Problem Disc displacement, 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 Active confirmed 740540892888056 Problem Seborrheic keratoses L82.1 Active confirmed 898751831 Problem Dysfunction of both eustachian tubes H69.83 Act forrest confirmed 66489608 Problem Spondylosis without myelopathy or radiculopathy, lumbosacral region M47.817 Active confirmed 84307320 Problem Wound of right buttock, initial encounter S31.819A Active confirmed 000967427 Problem Sacroiliitis M46.1 Active confirmed 6124475 9 ALLERGIES Allergen (clinical drug ingredient) Drug/Non Drug Allergy do cumented on EMR Reaction Allergy Type Onset Date Status Latex (for allergy use only) Rash Drug Allergy Active Adhesive Tape rash Drug Allergy Active Gluten allergy Rash Non Drug Allergy Acti ve Codeine Phosphate (For Allergies Use Only) Nausea/Vomiting Drug Allergy Active ENCOUNTERS from 1967 to 2020-11-10 Encounter Location Date Provider Diagnosis [facility] [address] [place] [id number] Nov, Winifred Greco IMMUNIZATIONS Vaccine Route Administration Date Status Influenza (18 yrs & older) Flublok IM Intramuscular Jul 08, 2018 Administered Zoster 50mcg/0.5mL (Shingrix) Unknown December 21, 2018 Ad ministered Pneumococcal Adult 0.5mL (Pneumovax 23) IM Intramuscular Jul 27, 2019 Administered Influenza (6mo & up) Fluzone IM Intramuscular Jul 16, 2017 Ad ministered Influenza (6mo & up) Fluzone Unknown Jul 22, 2016 Adm inistered Influenza (6mo & up) Fluzone Unknown December 31, 2015 Ref used Influenza (18 yrs & older) Flublok IM Intramuscular Jul 27, 2019 Administered Influenza (6mo & up) Fluzone Unknown Nov 29, 2015 Ref used Influenza (6mo & up) Fluzone IM Intramuscular Jun 28, 2014 Ad ministered Influenza (6mo & up) Fluzone IM Intramuscular Aug 16, 2013 Ad ministered SOCIAL HISTORY Tobacco Use: Social History Observation Description Date Details (start date - stop date) Former Smoker Sex Assigned At : Social History Observation Description Sex Assigned At Unknown Audit Question Answer Notes Total Score: 0 Interpretation: Alcohol Education Language: Question Answer Notes Languages spoken: Luxembourgish Mormon: Question Answer Notes Mormon 05 Denominational No orthodox beliefs that would impact health care. Drug and Alcohol Question Answer Notes Total Score: 0 Interpretation: No problems reported Alcohol Screening: Question Answer Notes Did you have a drink containing alcohol in the past year? No Points 0 Interpretation Negative BMI Care Goal Follow-Up Question Answer Notes Above Normal BMI Follow-Up Dietary management educatio n, guidance, and counseling Tobacco Use: Question Answer Notes Are you a: former smoker How long has it been since you last smoked? 5-10 years REASON FOR REFERRAL No Information VITAL SIGNS No information MEDICATIONS Medication SIG (Take, Route, Frequency, Duration) Notes Start Da te End Date Status Famotidine 20 MG TAKE ONE TABLET BY MOUTH @8A M and TAKE ONE TABLET BY MOUTH @8PM Oral for 28 Active Multivitamin Adult - as directed Orally Dec, Active [place] Saline Nasal - USE DIRECTED DAILY NEE DED Nasally four times daily for 20 Active Fish Oil + D3 2417-2151 MG-UNIT 1 capsule Orally BID OTC Active Topiramate 50 MG 1 tablet Orally Once a day Active Trihexyphenidyl HCl 2 MG TAKE ONE TABLET BY MOUTH TWICE DAILY Orally bid Active Escitalopram Oxalate 10 MG 1 tablet Oral Once a day along with a 20 mg tablet Active Omeprazole 40 MG TAKE ONE CAPSULE BY MOUTH @8AM ON AN EMPTY STOMACH O ral Active Ventolin HFA 108 (90 Base) MCG/ACT INHALE TWO PUFFS BY MOUTH EVERY FOUR HOURS NEEDED Inhalation - for 30 days Active Tramadol HCl 50 MG 1 tablet as needed Orally q6h prn mdd4 for 30 Days Sep, Active Montelukast Sodium 10 MG 1 tablet Orally Once a day for 28 Active Gabapentin 600 MG TAKE ONE TABLET BY MOUTH @8A M and TAKE ONE TABLET @12PM and TAKE ONE TABLET @8PM Oral q8h TID for 30 Days Active Aspirin 81 MG 1 tablet Orally Once a day Aug, Active Atorvastatin Calcium 40 MG Take 1 tablet By Mouth once a day for 90 Active Metoprolol Tartrate 25 mg 1/2 tab Oral Daily Active BusPIRone HCl 10 MG TAKE ONE TABLET BY MOUTH @8A M and TAKE ONE TABLET @8PM Oral for 28 Active Fluticasone Propionate 50 MCG/ACT 1 spray in each nost ril Nasally bid for 30 Days Dec, Active Ondansetron HCl 4 MG TAKE ONE TABLET BY MOUTH ONE TO TWO TIMES A DAY BEFORE MEALS, TAKE ONLY WHEN HAVING NAUSEA Oral for 15 Active Levothyroxine Sodium 25 MCG 1 tablet in the morning on an empty stomach Orally Once a day for 90 Active Tizanidine HCl 4 MG 1 tablet as needed Orally Th ree times a day NEEDED FOR SEVERE PAIN for 30 Days Active Cetirizine HCl 10 MG 1 tablet Orally once daily for 28 Active [place] Nasal [place] 0.65 % 2 sprays in each nostril as needed Nasally 4x daily for 30 Days Jan, Active Vitamin D 1000 UNIT 1 tablet Orally Once a day Dec, 9 Active PROCEDURES No Information RESULTS No Results REASON FOR VISIT LEG NUMB AND TINGLING MEDICAL (GENERAL) HISTORY Type Description Date Medical History Depression/Anxiety- Dr Enriquez. /therapist Q2 weeks Medical History Hyperlipidemia Medical History GERD with Barretts: Repeat EGD in 8 Medical History vitamin d def Medical History FRAN: following with Pulmonol ogy: compliant with CPAP-pulmonology Medical History CAD: Bypass with autologous vein: Dr. Shelley munguia at [facility] Medical History ECHO 10/17/2016. Hypertensive heart disea se Medical History Cardiac PET nuclear stress 09/26/2016. L VEF 66% Medical History back pain Medical History history of chickenpox, measles, mumps Medical History lytic lesion adjacent to Rt lobe liver appearing within GB fossa: no surgical intervention idicated: Dr. Murphy Medical History Thyroid U/S 09/16 Diffuse he terogeneity 2 6mm nodules at isthmus. - Dr Wanda Berg Medical History Cardiac Cath with CABG 11/13/2016 Medical History SPECT Stress LVEF 55%, no ev idence of ischemi, left ventricular dialation with stress 08/26/2017 Medical History EUS (Endoscopic U/S-Dr. patel) -No pancreatic mass or common bile duct stricture Medical History HIDA Scan-unremarkable 2017, normal GB and EF, hypertonic sphincter of Oddi Medical History Fatty liver with fatty pancreas Medical History Colonoscopy 2017 Medical History Upper Endoscopy 2018 Medical History Gallbladder U/S 04/23/18: Fat ty infiltrate of liver and exophytic cyst on the right lobe. No hepatic solid mass or billary dilatation. Gallbladder without acute findings Medical History ECHO: 12/20/17-No significant valvular disease, left ventricular systolic function normal, left ventricular diastolic function normal, concentric left centricular hypertrophy mild, hypertnesive heart disease moderate. Mildly dilated left atrium 4.3cm. Mildly dilated aortic root at 4.0cm. Trace to small pericardal effusion noted posteriorly in limited views, no evidence of cardiac tamponade. LVEF 55-60% Medical History Dermatitis Herpetiformis Medical History carpal tunnel Medical History HAMMER TOES Surgical History left hand, 5th digit, removed tumor 1979 & 2016 Surgical History tonsillectomy child Surgical History Colonoscopy- internal hemorrhoid, polyp x 1- adenomatous 02/02/15 Surgical History Colonoscopy - 2 tubular stephen omas, mucosal ulceration, moderate diverticulosis in the sigmoid colon, external hemorrhoids. Sigmoidoscopy due 10/2018, Repeat colonoscopy 5 yrs 10/13/17 Surgical History EGD- Lg HH 02/02/15 Surgical History hemorrhoidectomy 4-6-16 Surgical History left foot bunionectomy with first metatarsal osteostomy-Dr. Chand 03/31/16 Surgical History CABG- 4 vessel at [place] 11/11/16 Surgical History Left hand CP sx, and tendon removal. Bone and joint [facility] 01/2018 Surgical History Upper Endoscopic Ultrasound with Anesthe penelope 07/2018 Surgical History Wires removed from chest 09/29/2018 Surgical History Hammer toe, Left foot, Dr. Chand 03/30/19 Surgical History EGD-Dr. Duron 01/2019 Surgical History HammerToe 03/2019 Surgical History RIGHT HAND TRIGGER AND CARPEL TUNNEL 1-2 020 Surgical History R2ND TOE RGREAT TOE SURGERY 06/2020 Surgical History screw removal foot Surgical History right foot hammer toe correction - Mannie 07/2020 Surgical History left foot screw removal with bone filing - Mannie 07/2020 Hospitalization History [facility]- Depression/A nxiety 14 yo Hospitalization History [facility] [place]- depre ssion 18 yo Hospitalization History Father [facility]- tx of depression. [age]yo Hospitalization History Hemorrhoidectomy with remova l of a mixed hemorrhoidal bundles at the left lateral and right anterior and posterior positions. 01/11/2016 Hospitalization History CABG: [facility] 11/11/16 Hospitalization History Rehab [facility] 11/21 Hospitalization History POST RIGHT HAND HAND AND ELBOW SURGE RY 10/2019 Hospitalization History [facility] ED- Post-op problem, left foot c ellulitis 08/03/2020 Goals Section No Information Health Concerns No Information MEDICAL EQUIPMENT No Information MENTAL STATUS No Information FUNCTIONAL STATUS No Information ASSESSMENTS No Information PLAN OF TREATMENT Medication Medication Name Sig Start Date Stop Date Montelukast Sodium 10 MG 1 tablet Orally Once a day for 28 Cetirizine HCl 10 MG 1 tablet Orally once daily for 28 [place] Saline Nasal - USE DIRECTED DAILY NEE DED Nasally four times daily for 20 Next Appt Details Provider Name:Lolis Choudhary, 2020-11-20 01:4 5:00 PM, [address] [place], [address], Insurance Providers Payer Name Payer Address Payer Phone Insured Name Patient Relati onship to Insured Coverage Start Date Coverage End Date [facility] [place] [address] [facility] [phone] DEANNA AN self
--- OUTSIDE RECORDS SUMMARY | 2020-11-19 14:48 | CCD | Continuity of Care Document ---
Author Author Rinku XIE MD Organization Unknown Address [address] [facility] [place] [address] Phone [phone] Care Team Providers Care Battery Mechanic Name Role Phone [facility] - [phone] AUTM [phone] Damaso Hampton MD AUTM [phone] Problems Description No Active Problems Social History Type Date Description Comments Sex Unknown ETOH Use Denies alcohol use Tobacco Use Start: Unknown End: Unknown Patient is a former smoker quit 33 yrs old Smoking Status Reviewed: 11/05/20 Patient is a former smoker qu it 33 yrs old Allergies, Adverse Reactions, Alerts Active Allergies Reaction Severity Comments Date Codeine 04/12/2015 Tape 12/09/2018 Latex 12/09/2018 Gluten 12/09/2018 Inactive Allergies NKDA 04/05/2015 Medications Active Medications SIG Qnty Indications Ordering Provide r Date Tramadol HCL 50mg Tablets One tab every 4- 6 hours for pain 30tabs Richard Xie MD 08/01/2020 Hydrocodone-Acetaminophen 5-325mg Tablets 1-2 tabs every 4-6 hours for as needed post op pain. (please do not fill until 06/19/2020). 20tabs Richard Xie MD 06/04/2020 Gabapentin 600mg Tablets Take One Tablet By Mouth @8Am and Take One Tablet By Mouth @12PM and Take One Tablet By Mouth @5PM 90tabs M51.26 Seth Parson MD 12/23/2016 Albuterol Sulfate (2 .5mg/3ML) 0.083% Nebulizer Unknown Urea 20 Intensive Hydrating Cream 20% Cream Unknown Cyclobenzaprine HCL 10mg Tablets Unknown Hydrocortisone 1% Cream Unknown Topiramate 50mg Tablets Unknown Atorvastatin Calcium 40mg Tablets Unknown Escitalopram Oxalate 10mg Tablets Unknown Tizanidine HCL 4mg Capsules 1 by mouth three times a day Unknown Trihexyphenidyl HCL 2mg Tablets Unknown Metoprolol Succinate ER 25mg Tablets ER 24HR 1 by mouth every day Unknown Levothyroxine Sodium 88mcg Tablets 1 by mouth every day Unknown Cetirizine HCL 10mg Tablets 1 by mouth every day Unknown Omeprazole 20mg Capsules DR 1 by mouth every day Unknown Fluticasone Propionate 50mcg/Act Suspension 2 puffs a day Unknown Buspirone HCL 10mg Tablets 1 by mouth twice a day Unknown Immunizations Description No Information Available Vital Signs Date Vital Result Comment 11/02/2020 9:22am Body Temperature 96.7 F 10/29/2020 2:20pm Body Temperature 97.3 F Results Test Acquired Date Facility Test Result H/L Range Note Order 11/05/2020 [facility] [address] [place] [address] Surgery <pending> Laboratory test finding 06/14/2020 [facility] [address] [place] [address] [phone] - Coronavirus 2019 Nasopharygeal This nucleic aci <SEE NOTE> 1 1 This nucleic acid amplificat ion test was developed and its performance characteristics determined by [facility]. Nucleic acid amplification tests include PCR and TMA. This test has not been FDA cleared or approved. This test has been authorized by FDA under an Emergency Use Authorization (EUA). This test is only authorized for the duration of time the declaration that circumstances exist justifying the authorization of the emergency use of in vitro diagnostic tests for detection of SARS-CoV-2 virus and/or diagnosis of COVID-19 infection under section 564(b)(1) of the Act, 21 U.S.C. 360bbb-3 (b) (1), unless the authorization is terminated or revoked sooner. When diagnostic testing is negative, the possibility of a false negative result should be considered in the context of a patient's recent exposures and the presence of clinical signs and symptoms consistent with COVID-19. An individual without symptoms of COVID-19 and who is not shedding SARS-CoV-2 virus would expect to have a negative (not detected) result in this assay. Performed at: [facility] [id number] Hot Saw Operator: Ruth Ann Gonzalez MD, Phone: [phone] Not Detected Procedures Date Code Description Status 11/14/2020 89289 X-Ray Hand Three Views Completed 10/29/2020 83848 FX Metacarpal W/O Manipulation C ompleted 10/12/2020 62092 Inject/Drain Joint/Bursa Small C ompleted 10/11/2020 88190 Inject/Drain Joint/Bursa Major C ompleted Medical Devices Description No Information Available Encounters Description No Information Available Assessments Date Code Description Provider 11/14/2020 S62.235D Other nondisplaced f racture of base of first metacarpal bone, left hand, subsequent encounter for fracture with routine healing Marielena Rivera PA-C 11/14/2020 M19.042 Primary osteoarthritis, left roland d Marielena Rivera PA-C 11/02/2020 M17.12 Unilateral primary osteoarthriti s, left knee Richard Xie MD 11/02/2020 M25.562 Pain in left knee Richard Xie MD 10/29/2020 S62.235A Other nondisplaced f racture of base of first metacarpal bone, left hand, initial encounter for closed fracture Marielena Rivera PA-C 10/29/2020 M19.042 Primary osteoarthritis, left roland d Marielena Rivera PA-C 10/12/2020 M19.042 Primary osteoarthritis, left roland d Marielena Rivera PA-C 10/12/2020 M19.042 Primary osteoarthritis, left roland d Marielena Rivera PA-C 10/11/2020 M17.12 Unilateral primary osteoarthriti s, left knee Marielena Rivera PA-C 06/18/2020 M25.562 Pain in left knee Richard Xie MD 05/29/2020 M75.41 [facility]ing[facility] Plan of Treatment Future Appointment(s):* 11/28/2020 11:15 am - Marielena Rivera PA-C at [place] 11/14/2020 - Marielena Rivera PA-C* S62.235D Other nondisplaced fracture of base of first metacarpal bone, left hand, subsequent encounter for fracture with routine healing* Follow up:* in 2 weeks for left hand recheck with xooc with bms * M19.042 Primary osteoarthritis, left hand Functional Status Description No Information Available Mental Status Description No Information Available Referrals Refer to Dr Reason for Referral Status Appt Date Richard Xie MD SURGERY PER [employer] [facility] NO A [facility] REQUIRED FOR LEFT KNEE SURGERY (23104) TO SURGERY NT Created [address] [place] [phone] Richard Xie MD authorization for physical t herapy evaluation [id number] 10037 Left knee. Patient coming here, passed to PT Dept. AC Created [address] [place] [phone] Richard Xie MD authorization for physical t herapy Left knee. Patient coming here. Created [address] [place] [phone]
--- OUTSIDE RECORDS SUMMARY | 2020-11-19 14:48 | CCD | Continuity of Care Document ---
Author Author Rinku MACEDO Organization Unknown Address [address] [place] [address] Phone [phone] Care Team Providers Care Brand Protection Manager Name Role Phone Lolis Choudhary THELMA AUTM [phone] Problems Description No Information Available Social History Type Date Description Comments Sex Unknown ETOH Use 04/28/2016 Denies alcohol use Tobacco Use Start: Unknown End: Unknown Patient is a former smoker quit 2012 Smoking Status Reviewed: 11/17/20 Patient is a former smoker qu it 2012 Allergies, Adverse Reactions, Alerts Active Allergies Reaction Severity Comments Date Codeine Nausea and Vomiting 04/28/20 16 Latex 07/21/2018 Adhesives 07/21/2018 Gluten 02/18/2019 Medications Active Medications SIG Qnty Indications Ordering Provide r Date Polymyxin B Sulfate/Trimethoprim Sulfate 35842-2.1Unit/ML-% Solution 1 drop left eye every 4-6 hours for 7 days. 10ml H10.32 Michael Azar JR., M.D. 11/17/2020 Meloxicam 15mg Tablets 1 by mouth every day 20tabs S20.211A Michael Azar JR., M.D. Flonase Allergy Relief Unknown Albuterol Sulfate Unknown 000 Tylenol 325mg Capsules this a m Unknown Duloxetine HCL Unknown Tizanidine HCL 4mg Capsules q hs Unknown Zofran 8mg Tablets 1 tab three times a day as needed Unknown Vitamin D every day Unknown Aspirin 325mg Tablets DR boland y day Unknown Fish Oil Unknown Carafate 1gm Tablets 1 by mouth four times a day Unknown Omeprazole 40mg Capsules DR 1 by mouth daily. take 1 hour before eating Unknown Zyrtec Allergy 10mg Tablets 1 by mouth every day Unknown Synthroid 75mcg Tablets 1 by mouth every day Unknown Zocor 40mg Tablets every day Unknown Gabapentin 300mg Capsules twi ce a day Unknown Buspirone HCL 10mg Tablets 2 tabs bid Unknown Lexapro 20mg & 10mg Tablets 1 by mouth every day Unknown History Medications Mupirocin 2% Ointment apply to affected area on buttock twice daily as directed [facility] S31.819A Michael Azar JR., M.D. 07/14/2020 - 07/28/2020 Immunizations Description No Information Available Vital Signs Date Vital Result Comment 11/17/2020 1:31pm BP Systolic 113 mmHg BP Diastolic 61 mmHg Heart Rate 58 /min Respiratory Rate 13 /min O2 % BldC Oximetry 96 % Body Temperature 95.1 F Weight 300.00 lb Height 68 inches 5'8" BMI (Body Mass Index) 45.6 kg/m2 07/14/2020 12:51pm BP Systolic 111 mmHg BP Diastolic 77 mmHg Heart Rate 67 /min Respiratory Rate 14 /min O2 % BldC Oximetry 7 % Body Temperature 97.6 F Weight 292.00 lb Height 68 inches 5'8" BMI (Body Mass Index) 44.4 kg/m2 Pain Level 8 Results Description No Information Available Procedures Description No Information Available Medical Devices Description No Information Available Encounters Type Date Location Provider Dx Diagnosis Office Visit 11/17/2020 9:35a Main Office Gareth Ambrose H1 0.32 Unspecified acute conjunctivitis, left eye Office Visit 07/14/2020 11:10a Main Office Gareth Ambrose S3 1.819A Unspecified open wound of right buttock, initial encounter Assessments Date Code Description Provider 11/17/2020 H10.32 Unspecified acute conjunctivitis , left eye Gareth Ambrose 07/14/2020 S31.819A Unspecified open wound of right buttock, initial encounter Gareth Ambrose Plan of Treatment 11/17/2020 - Gareth Ambrose* H10.32 Unspecified acute conjunctivitis, left eye* New Medication:* Polymyxin B Sulfate/Trimethoprim Sulfate 97871-2.1 Unit/ML-% - 1 drop left eye every 4-6 hours for 7 days. * Comments:* Good lid hygieneAvoid close contactFrequent hand washingFollow with PCPHe will need to see ophthalmology for persisting symptomsHe should report to ED for sudden increases in pain or photophobiaReturn as needed for increasing or persisting symptoms Functional Status Description No Information Available Mental Status Description No Information Available Referrals Description No Information Available
--- OUTSIDE RECORDS SUMMARY | 2020-11-19 14:48 | CCD | Continuity of Care Document ---
Author Author Rinku MACEDO Organization Unknown Address [address] [place] [address] Phone [phone] Care Team Providers Care Electric Pile Driver Operator Name Role Phone Lolis Choudhary THELMA AUTM [phone] Problems Description No Information Available Social History [...] Provide r Date Polymyxin B Sulfate/Trimethoprim Sulfate 36156-0.1Unit/ML-% Solution 1 drop left eye every 4-6 [...] area on buttock twice daily as directed [facility] S31.819A Michael Azar JR., M.D. 07/14/2020 - [...] eye* New Medication:* Polymyxin B Sulfate/Trimethoprim Sulfate 63996-5.1 Unit/ML-% - 1 drop left eye every [...]
--- OUTSIDE RECORDS SUMMARY | 2020-11-19 14:48 | CCD | Continuity of Care Document ---
Author Author Rinku RIVERA PA-C Organization Unknown Address [address] [place] [id number] Phone [phone] Care Team Providers Care Director Style Name Role Phone [facility] - [phone] AUTM Damaso Hampton MD AUTM [phone] Problems Description No Active Problems Social History [...] 4- 6 hours for pain 30tabs Richard Pond MD 08/01/2020 Hydrocodone-Acetaminophen 5-325mg Tablets 1-2 tabs every 4-6 hours for as needed post op pain. (please do not fill until 06/19/2020). 20tabs Richard Pond MD 06/04/2020 Gabapentin 600mg Tablets Take One [...] 11/05/2020 [facility] [address] [place] [address] Surgery <pending> Laboratory test finding 06/14/2020 [facility] [address] [place] [address] [phone] Coronavirus 2019 Nasopharygeal This nucleic aci <SEE NOTE> 1 1 This nucleic acid amplificat ion test was developed and its performance characteristics determined by [employer]. Nucleic acid amplification tests include PCR and [...] detected) result in this assay. Performed at: [facility] [id number] Press Offbearer: Ruth Ann Gonzalez MD, Phone: [phone] Not Detected Procedures Date Code Description Status 11/14/2020 01330 X-Ray Hand Three Views Completed 10/29/2020 32326 FX Metacarpal W/O Manipulation C ompleted 10/12/2020 56733 Inject/Drain Joint/Bursa Small C ompleted 10/11/2020 43946 Inject/Drain Joint/Bursa Major C ompleted Medical Devices [...] Unilateral primary osteoarthriti s, left knee Richard Pond MD 11/02/2020 M25.562 Pain in left knee Richard Pond MD 10/29/2020 S62.235A Other nondisplaced f racture [...] 06/18/2020 M25.562 Pain in left knee Richard Pond MD 05/29/2020 M75.41 Impingement syndrome of right [facility] Marielena Rivera PA-C Plan of Treatment 11/14/2020 - Marielena Rivera PA-C* S62.235D Other nondisplaced fracture of base of first metacarpal bone, left hand, subsequent encounter for fracture with routine healing* Follow up:* in 2 weeks for left hand recheck with xooc with bms * M19.042 Primary osteoarthritis, left hand Functional Status Description No Information Available Mental Status Description No Information Available Referrals Refer to Reason for Referral Status Appt Date Richard Pond MD SURGERY PER [facility] NO A [facility] REQUIRED FOR LEFT KNEE SURGERY (72557) TO SURGERY NT Created [address] [place] [phone] Richard Pond MD authorization for physical t herapy evaluation [phone] Left knee. Patient coming here, passed to PT Dept. AC Created [address] [place] [phone] Richard Pond MD authorization for physical t herapy Left knee. Patient coming here. AC Created [address] [place] [phone]
--- OUTSIDE RECORDS SUMMARY | 2020-11-19 14:48 | CCD | Continuity of Care Document ---
Author Author Rinku IRIZARRY DPGarcía Organization Unknown Address [address] [place] [address], [address] [place] [address] Phone [phone] Care Team Providers Care Expansion Joint Builder Name Role Phone Ashley Cano, Bladimir AUTM [phone] YAMILE Noe AUTM [phone] Daphne OPHTHALMIC SURGEON, Lolis AUTM [phone] Problems Active Problems Provider Date Hammer toe Dylan Irizarry DPM Onset: 12/02/2019 Pain due to internal orthopedic prosthet ic devices, implants and grafts, initial encounter Dylan Irizarry DPM Onset: 05/30/2020 Convalescence after surgery Dylan Irizarry DPM Onset: 08/05 Social History Type Date Description Comments Sex Unknown ETOH Use Denies alcohol use Tobacco Use Start: Unknown End: Unknown Patient is a former smoker HX 29N YEARS SMOKING, QUITTING NOW USING nICOTENE PATCH Allergies, Adverse Reactions, Alerts Description No Known Drug Allergies Medications Active Medications SIG Qnty Indications Ordering Provide r Date Betamethasone Dipropionate 0.05% C ream apply to rash on foot two times a day 45gm Dylan Irizarry DPM 11/06/2020 Linezolid 600mg Tablets 1 by mouth twice a day 28tabs Dylan Irizarry DPM 08/06/2020 Sulfamethoxazole/Trimethoprim DS 800-160mg Tablets 1 tab by mouth twice daily 20tabs Dylan ruiz DPM 08/06/2020 Cephalexin 500mg Tablets 1 by mouth twice a day 14tabs Dylan Irizarry DPM 04/12/2020 Mupirocin 2% Ointment apply to right foot wound daily 22gm Dylan Irizarry, DPM 04/12/2020 Naproxen 500mg Tablets 1 tab twice daily with food 60tabs Dylan Irizarry, [facility] 11/21/2019 Hydrocortisone 1% Cream Apply To Rash Once Daily 28.35units Dylan Irizarry, M 04/26/2019 Ammonium Lactate 12% Cream apply to feet twice daily 280units Dylan Irizarry, [facility] 11/16/2018 Prednisone 10mg Tablets prednisone taper: take 4 tabs for 5 days, 3 tabs for days 6 and 7, 2 tabs for days 8 and 9, and 1 tab days 10 and 11 32tabs Dylan Irizarry, [facility] 07/27/20 18 Urea 20 Intensive Hydrating Cream 20% Cream apply to callus on feet daily 85units Dylan ribeiro, [facility] 11/03/2017 Indomethacin 50mg Capsules one tab by mouth 3 times daily 45caps Dylan Irizarry, [facility] 017 Colcrys 0.6mg Tablets take twice daily 20tabs Dylan Irizarry, [facility] 02/25/2017 Prednisone 10mg Tablets prednisone taper: take 4 tabs for 5 days, 3 tabs for days 6 and 7, 2 tabs for days 8 and 9, and 1 tab days 10 and 11 32tabs Dylan Irizarry, [facility] 01/24/20 17 Ketoconazole 2% Cream apply to feet twice daily 60units Dylan Irizarry, [facility] 05/06/2016 Ibuprofen 600mg Tablets take 1 tablet by mouth every 4 hours as needed for pain 30tabs Dylan Irizarry, [facility] 04/18/2016 Lac-Hydrin 12% Cream apply twice a day to both feet 280g Dylan Irizarry, [facility] 01/31/2015 Silvadene 1% Cream apply twice a day to ulcer 60g Hansel Irizarry, [facility] 01/31/2015 Lac-Hydrin 12% Cream apply as directed twice a day to both feet 280g Hansel Irizarry, [facility] Loprox 0.77% Gel apply twice a day as directed 90gram Hansel Irizarry, [facility] 06/08/2014 Lac-Hydrin Twelve 12% Lotion Applied b.i.d. to dry skin on both feet 280grams Hansel GelyCristina Irizarry, DPM 11/08/2013 Oxycodone-Acetaminophen 5-325mg Ta blets Take One Tablet By Mouth Every 8 Hours as Needed For Pain Max Daily DO Unknown Gabapentin 600mg Tablets Take One Tablet By Mouth Three Times Daily Unknown Mitigare 0.6mg Capsules Take One Capsule By Mouth Twice Daily Unknown Ondansetron 4mg Tablets Dispers Take One Tablet By Mouth And allow To dissolve Every 8 Hours as Needed Unknown Amoxicillin/Clavulanate Potassium 875-125mg Tablets Take One Tablet By Mouth Twice Daily For 10 Days Unknown Pain Relief Extra Strength 500mg T ablets Take One Tablet By Mouth Every 6 Hours as Needed Unknown Fluticasone Propionate 50mcg/Act Suspension Instill Two Sprays In Each Nostril Once Daily Unknown Elidel 1% Cream Apply Small Amount To Face Twice Daily Unknown Ventolin HFA 108(90Base) mcg/Act A erosol Inhale Two Puffs By Mouth Every 4 Hours as Needed Unknown Simvastatin 40mg Tablets Take One Tablet By Mouth Every Evening Unknown 0 Amlodipine Besylate 5mg Tablets Take One Tablet By Mouth Once Daily Unknown Furosemide 40mg Tablets Take One Tablet By Mouth Once Daily Unknown Folic Acid 1mg Tablets Take One Tablet By Mouth Once Daily Unknown Potassium Chloride ER 10Meq Tablet s ER Take One Tablet By Mouth Once Daily Unknown Vitamin C 500mg Tablets Take One Tablet By Mouth Once Daily Unknown Vitamin D 1000Unit Tablets Take One Tablet By Mouth Once Daily Unknown Clopidogrel Bisulfate 75mg Tablets Take 4 Tablets By Mouth Night The Before Procedure Unkn own Gabapentin 300mg Capsules 2Caps every morning & evening 3Caps at bedtime Increase No More Than e Unknown Clobetasol Propionate 0.05% Soluti on Apply To The Affected Area(S) Twice Daily For 14 Days Unknown Aspirin Ec Low Dose 81mg Tablets D R Take One Tablet By Mouth Every Day Unknown Sucralfate 1gm Tablets Take One Tablet By Mouth Four Times Daily On Empty Stomach Unknown Lexapro Unknown Risperidone M-Tab Unknown 000 Flomax Unknown Hydrocodone-Acetaminophen 5-325mg Tablets Take One Or Two Tablets By Mouth Every Six Hours as Needed For Pain MA Unknown Ondansetron 8mg Tablets Dispers Take One Tablet By Mouth Every Eight Hours as Needed For Nausea And Vo Unknown Divalproex Sodium 500mg Tablets DR Take One Tablet By Mouth Twice Daily Max Daily Dose Two Tablets Unknown Levothyroxine Sodium 75mcg Tablets Take One Tablet By Mouth Once Daily Unknown 0 Atorvastatin Calcium 40mg Tablets Take One Tablet By Mouth Once Daily Unknown Cetirizine HCL 10mg Tablets Take One Tablet By Mouth Once Daily Unknown Dok 100mg Capsules Take One Capsule By Mouth Twice Daily as Needed Unknown Pantoprazole Sodium 40mg Tablets D R Take One Tablet By Mouth Twice Daily Unknown Trihexyphenidyl HCL 2mg Tablets take One- Half Tablet By Mouth Twice Daily For One Week Then One Tablet Unknown Tizanidine HCL 4mg Tablets Take One Tablet By Mouth AT Bedtime Unknown Risperidone 0.5mg Tablets Take One Tablet By Mouth AT Bedtime Unknown Ranitidine HCL 150mg Tablets Take Two Tablets By Mouth AT Bedtime Unknown Metoprolol Tartrate 25mg Tablets Take One Tablet By Mouth Once Daily Unknown Ferrous Sulfate 325(65Fe) mg Table ts Take One Tablet By Mouth Twice Daily Unknown Escitalopram Oxalate 20mg Tablets Take One Tablet By Mouth Once Daily Unknown Escitalopram Oxalate 10mg Tablets Take One Tablet By Mouth Once Daily Unknown Buspirone HCL 10mg Tablets Take One Tablet By Mouth Twice Daily Unknown Clindamycin HCL 300mg Capsules Take One Capsule By Mouth Every 6 Hours as Directed Unkno wn Medications Administered in Office Medication SIG Qnty Indications Ordering Provider Date Inject Triamcinolone Acetonide 10 ML, ND C 0622-2442-12 Injection Dylan barnes, DP 01/25/2018 Inject Dexamthosone Phosphate 72151-953- 30 Injection Dylan Irizarry, DP 018 Inject Triamcinolone Acetonide 10 ML, ND C 4491-5167-48 Injection Dylan barnes, DP 03/13/2017 Inject Dexamthosone Phosphate 06071-569- 30 Injection Dylan Irizarry, DP 017 Inject Triamcinolone Acetonide 10 ML, ND C 8497-6150-88 Injection Dylan barnes, DP 02/06/2017 Inject Dexamthosone Phosphate 70852-059- 30 Injection Dylan Irizarry, DP 017 Inject Dexamthosone Phosphate 40803-569- 30 Injection Dylan Irizarry, DP 016 Inject Triamcinolone Acetonide 10 ML, ND C 3989-6221-18 Injection Hansel barnes, DP 02/14/2015 Inject Dexamthosone Phosphate 68333-188- 30 Injection Hansel Irizarry, DP 015 Inject Triamcinolone Acetonide 10 ML, ND C 8503-5005-68 Injection Hansel barnes, DP 07/03/2014 Inject Dexamthosone Phosphate 06962-255- 30 Injection Hansel Irizarry, DP 014 Inject Triamcinolone Acetonide 10 ML, ND C 1340-5476-51 Injection Hansel barnes, DP 06/08/2014 Inject Dexamthosone Phosphate 08138-733- 30 Injection Hansel Irizarry, DP 014 Immunizations Description No Information Available Vital Signs Date Vital Result Comment 05/25/2020 3:28pm Height 68 inches 5'8" Weight 294.00 lb BP Systolic 120 mmHg BP Diastolic 94 mmHg Heart Rate 81 /min BMI (Body Mass Index) 44.7 kg/m2 03/03/2019 10:28am Height 68 inches 5'8" Weight 317.00 lb BP Systolic 118 mmHg BP Diastolic 70 mmHg Heart Rate 48 /min apical BMI (Body Mass Index) 48.2 kg/m2 Results Test Acquired Date Facility Test Result H/L Range Note Laboratory test finding 07/18/2020 [facility] Request For Service (SEE NOTE) 1 Complete Blood Count 07/17/2020 [facility] White Blood Count 6.9 10 Normal 4.0-10.0 Red Blood Count 5.17 10 Normal 4.30-6.10 Hemoglobin 14.8 g/dL Normal 13.5-17.5 Hematocrit 46.7 % Normal 42.0-52.0 Mean Corpuscular Volume 90.3 fl Normal 80.0-96.0 Mean Corpuscular Hemoglobin 28.6 pg Normal 27.0-33.0 Mean Corpuscular HGB Conc 31.7 g/dL Low 32.0-36.5 Red Cell Distribution Width 15.0 % High 11.5-14.5 Platelet Count, Automated 250 10 Normal 150-450 Nucleated Red Blood Cell % 0.0 % Normal 0-0 Basic Metabolic Profile 07/17/2020 [facility] Glucose, Fasting 90 mg/dL Normal 70-100 Blood Urea Nitrogen 15 mg/dL Normal 7-18 Creatinine For GFR 1.08 mg/dL Normal 0.70-1.30 Glomerular Filtration Rate > 60.0 Normal >56 2 Sodium Level 142 mEq/L Normal 136-145 Potassium Serum 4.4 mEq/L Normal 3.5-5.1 Chloride Level 110 mEq/L High 98-107 Carbon Dioxide Level 27 mEq/L Normal 21-32 Anion Gap 5 mEq/L Low 8-16 Calcium Level 9.2 mg/dL Normal 8.5-10.1 1 FINAL DIAGNOSIS Bone, bilateral feet, exostectomy: Bone, for gross examination only. 07/19/2020 - 899 CLINICAL DIAGNOSIS Pain due to internal orthopedic device 07/18/20201521 GROSS DIAGNOSIS Received in formalin labeled "bilateral feet bone" and consists of two pieces of munguai-white bone measuring 1.2 x 1.0 x 0.4 cm. in aggregate. The specimen is for gross exam only. -SV 07/18/20201521 Signed KIRSTY HEALY MD 07/19/2020899 2 Units are mL/min/1.73 m2 Chronic Kidney Disease Staging per NKF: Stage I & II GFR >=60 Normal to Mildly Decreased Stage III GFR 30-59 Moderately Decreased Stage IV GFR 15-29 Severely Decreased Stage V GFR <15 Very Little GFR Left ESRD GFR <15 on BOTTLER HELPER Procedures Date Code Description Status 07/23/2020 37614 X-Ray Foot Complete Completed 07/18/2020 59802 Ostectomy/Exostectomy/Condylecto my Metatarsal Head Completed 07/18/202095825 Hammertoe Proc One Toe Completed 07/18/2020 Remove Support Implant Deep Comp leted Medical Devices Description No Information Available Encounters Type Date Location Provider Dx Diagnosis Office Visit 11/06/2020 2:30p [facility] Dylan Irizarry DPM L30.8 Other specified dermatitis L84 Corns and callosities Office Visit 09/05/2020 10:30a [place] Dylan Irizarry DPM Z48.89 Encounter for other specified surgical aftercare Office Visit 08/16/2020 2:30p [place] Dylan Irizarry DPM Z48.89 Encounter for other specified surgical aftercare Office Visit 08/06/2020 3:00p [place] Dylan Irizarry DPM Z48.89 Encounter for other specified surgical aftercare Office Visit 07/23/2020 8:45a [place] CHIOMA MujicaM M20.41 Other hammer toe(s) (acquired), right foot Z48.89 Encounter for other specifie d surgical aftercare Office Visit 06/07/2020 2:45p [place] CHIOMA MujicaM M20.42 Other hammer toe(s) (acquired), left foot M79.675 Pain in left toe(s) Office Visit 05/25/2020 3:15p [facility] Dylan Irizarry DPM T84.84xA Pain due to internal orthopedic prosth dev/grft, init M20.42 Other hammer toe(s) (acquire d), left foot Assessments Date Code Description Provider 11/06/2020 L30.8 Other specified dermatitis Shyam Irizarry DPM 11/06/2020 L84 Corns and callosities Dylan Irizarry DPM 09/05/2020 Z48.89 Encounter for other specified cho rgical aftercare Dylan Irizarry DPM 08/16/2020 Z48.89 Encounter for other specified cho rgical aftercare Dylan Irizarry, DPM 08/06/2020 Z48.89 Encounter for other specified cho rgical aftercare Dylan Irizarry, DPM 07/23/2020 M20.41 Other hammer toe(s) (acquired), right foot Dylan Irizarry, DPM 07/23/2020 Z48.89 Encounter for other specified cho rgical aftercare Dylan Irizarry, [place]AM 07/18/2020 M77.52 Other enthesopathy of left foot and ankle Dylan Irizarry, DPM 07/18/2020 T84.84xA Pain due to internal orthopedic prosthetic devices, implants and grafts, initial encounter Dylan Irizarry, YAMILE 07/18/2020 M79.675 Pain in left toe(s) Dylan stahl, DPM 07/18/2020 M20.41 Other hammer toe(s) (acquired), right foot Dylan Irizarry, [place]AM 06/07/2020 M20.42 Other hammer toe(s) (acquired), left foot Dylan Irizarry, DPM 06/07/2020 M79.675 Pain in left toe(s) Dylan stahl, DPM 05/25/2020 T84.84xA Pain due to internal orthopedic prosthetic devices, implants and grafts, initial encounter Dylan Irizarry, YAMILE 05/25/2020 M20.42 Other hammer toe(s) (acquired), left foot Dylan Irizarry DPM Plan of Treatment Future Appointment(s):* 12/04/2020 2:45 pm - Dylan Irizarry DPM at [place] [facility] Functional Status Description No Information Available Mental Status Description No Information Available Referrals Description No Information Available
--- OUTSIDE RECORDS SUMMARY | 2020-11-19 14:49 | CCD ---
Author Author [facility] Organization [facility] Address Unknown Phone Unavailable Care Team Providers Care Front End Web Developer Name Role Phone Lolis Choudhary Unavailable PROBLEMS Type Condition ICD9-CM Code TSP27-NL Code Onset Dates Condition S tatus SNOMED Code Notes Problem Allergic rhinitis J30.9 Active 80365660 Problem Coronary artery disease invo [place]ving [place] coronary artery of [place] heart, angina presence unspecified I25.10 Active 1 847935579833 Problem Depression F32.9 Active 76176597 Problem Anxiety disorder, unspecified F41.9 Active 23 2095323 Problem Essential hypertension I10 Active 41513927 Problem Intervertebral disc disorder with radiculopathy of lumbar region M51.16 Active 39778128 Problem Obesity, unspecified E66.9 Active 29734005267 104 Problem Obstructive sleep apnea on CPAP G47.33 Active 87578955 Problem Obstructive sleep apnea (adult) (pediatric) G47.33 Active 48347378 Problem Granuloma annulare L92.0 Active 78188687 Problem Gastroesophageal reflux disease with esophagitis K 21.0 Active 273864642 Problem Melanocytic nevi of trunk D22.5 Active 946377 002 Problem Sebaceous hyperplasia L73.8 Active 188854891 Problem Spondylosis of lumbar region without myelopathy or radiculopathy M47.816 Active 974900982 Problem 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 Active 0763037 00 Problem Stage 3 chronic kidney disease N18.3 Active 4 49542085 Problem Celiac disease K90.0 Active 884086516 Problem Hyperlipidemia E78.5 Active 61495197 Problem CKD (chronic kidney disease), stage III N18.3 Active 665104163 Problem Hypothyroidism, unspecified type E03.9 Active 38767769 Problem Carpal tunnel syndrome of right wrist G56.01 Ac tive 56335942 Problem Bilateral serous otitis media, unspecified chronicity H65.93 Active 93717586 Problem Unspecified open wound of right buttock, subsequ ent encounter S31.819D Active 82099895154430262 Problem 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 Active 9032498 Problem Inflammation of both ear canals H60.93 Active 7975910 Problem Disc displacement, 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 Active 909548 751791431 Problem Seborrheic keratoses L82.1 Active 059790068 Problem Dysfunction of both eustachian tubes H69.83 Act forrest 43193591 Problem Spondylosis without myelopathy or radiculopathy, lumbosacral region M47.817 Active 18230125 Problem Wound of right buttock, initial encounter S31.819A Active 331720890 Problem Sacroiliitis M46.1 Active 11476894 ALLERGIES Allergen (clinical drug ingredient) Drug/Non Drug Allergy do cumented on EMR Reaction Allergy Type Onset Date Status Latex (for allergy use only) Rash Drug Allergy Active Adhesive Tape rash Drug Allergy Active Gluten allergy Rash Non Drug Allergy Acti ve Codeine Phosphate (For Allergies Use Only) Nausea/Vomiting Drug Allergy Active ENCOUNTERS from 1967 to 2020-10-11 Encounter Location Date Provider Diagnosis [address] [address] 05 Oct, [address] [facility] Essential hypertension I10 ; Hyperlipidemia E78.5 ; Hypothyroidism, unspecified type E03.9 ; Stage 3 chronic kidney disease N18.3 and Encounter for vitamin deficiency screening Z13.21 IMMUNIZATIONS Vaccine Route Administration Date Status Influenza (18 yrs & older) Flublok IM Intramuscular Jul 27, 2019 Administered Zoster 50mcg/0.5mL (Shingrix) Unknown December 21, [...] Flublok IM Intramuscular Jul 08, 2018 Administered Influenza (6mo & up) Fluzone Unknown [...] Education Language: Question Answer Notes Languages spoken: Jordanian Protestant: Question Answer Notes Protestant 05 Restorationist No hoahaoism beliefs that would impact health care. Drug [...] REASON FOR REFERRAL No Information VITAL SIGNS Weight 306 lbs Oct, Height 68 in Oct, BMI 46.52 kg/m2 Oct, Heart Rate 90 /min Oct, Respiratory Rate 20 /min Oct, Temperature 97 degrees Fahrenheit Oct, Oximetry 96 Oct, Blood pressure systolic 130 mm Hg Oct, Blood pressure diastolic 80 mm Hg Oct, MEDICATIONS Medication SIG (Take, Route, Frequency, Duration) Notes Start Da te End Date Status Famotidine 20 MG TAKE ONE TABLET BY MOUTH @8A M and TAKE ONE TABLET BY MOUTH @8PM Oral for Active Multivitamin Adult - as directed Orally Dec, Active Fish Oil + D3 9738-7408 MG-UNIT 1 capsule Orally BID OTC Active Topiramate 50 MG 1 tablet Orally Once a day Active Trihexyphenidyl HCl 2 MG TAKE ONE TABLET BY MOUTH TWICE DAILY Orally bid Active Montelukast Sodium 10 MG 1 tablet Orally Once a day for 28 Active Omeprazole 40 MG TAKE ONE CAPSULE BY MOUTH @8AM ON AN EMPTY STOMACH O ral Active Escitalopram Oxalate 10 MG 1 tablet Oral Once a day along with a 20 mg tablet Active Atorvastatin Calcium 40 MG Take 1 tablet By Mouth once a day for 90 Active Tramadol HCl 50 MG 1 tablet as needed Orally q6h prn mdd4 for 30 Days Sep, Active Gabapentin 600 MG TAKE ONE TABLET BY MOUTH @8A M and TAKE ONE TABLET @12PM and TAKE ONE TABLET @8PM Oral q8h TID for 30 Days Active Aspirin 81 MG 1 tablet Orally Once a day Aug, Active Zavala Nasal [place] 0.65 % 2 sprays in each nostril as needed Nasally 4x daily for 30 Days Jan, Active Metoprolol Tartrate 25 mg 1/2 tab [...] FOR SEVERE PAIN for 30 Days Active Ventolin HFA 108 (90 Base) MCG/ACT INHALE TWO PUFFS BY MOUTH EVERY FOUR HOURS NEEDED Inhalation - for 30 days Active Cetirizine HCl 10 MG 1 tablet Orally once daily for 28 days Active Vitamin D 1000 UNIT 1 tablet Orally Once a day Dec, 9 Active PROCEDURES No Information RESULTS No Results REASON FOR VISIT Transfer-Alis , f/up labs from Aug MEDICAL (GENERAL) HISTORY Type Description Date Medical History Depression/Anxiety- Dr Enriquez. /therapist Q2 weeks Medical History Hyperlipidemia Medical History GERD with Barretts: Repeat EGD in 8 Medical History vitamin d def Medical History FRAN: following with Pulmonol ogy: compliant with CPAP-pulmonology Medical History CAD: Bypass with autologous vein: Dr. Shelley munguia at [facility] Medical History ECHO 10/17/2016. Hypertensive heart disea [...] liver with fatty pancreas Medical History Colonoscopy 2016 Medical History Upper Endoscopy 2018 Medical History [...] EGD- Lg HH 02/02/15 Surgical History hemorrhoidectomy -03-20 Surgical History left foot bunionectomy with first metatarsal osteostomy-Dr. Chand 03/31/16 Surgical History CABG- 4 vessel at [place] 11/11/16 Surgical History Left hand CP sx, and tendon removal. Bone and joint [facility] 01/2018 Surgical History Upper Endoscopic Ultrasound with [...] History right foot hammer toe correction - [facility] 07/2020 Surgical History left foot screw removal with bone filing - [facility] 07/2020 Hospitalization History [facility]- Depression/A nxiety 14 yo Hospitalization History [facility]- Freddie- morales ssion 18 yo Hospitalization History Father [facility]- tx of depression. [age]yo Hospitalization History Hemorrhoidectomy with remova l of a mixed hemorrhoidal bundles at the left lateral and right anterior and posterior positions. 01/11/2016 Hospitalization History CABG: [facility] 11/11/16 Hospitalization History Rehab [facility] 11/21 Hospitalization History POST RIGHT HAND HAND AND ELBOW SURGE RY 10/2019 Hospitalization History [facility] ED- Post-op problem, left foot c ellulitis 08/03/2020 Goals Section No Information Health Concerns No Information MEDICAL EQUIPMENT No Information MENTAL STATUS No Information FUNCTIONAL STATUS No Information ASSESSMENTS Encounter Date Diagnosis Assessment Notes Treatment Notes Treatm ent Clinical Notes Oct, Essential hypertension (ICD-10 - I10) continue current meds and f/up with dr Juárez Oct, Hyperlipidemia (ICD-10 - E78.5) Continue statin, Monitor lipids - decrease sweets due to high Trig Oct, Hypothyroidism, unspecified type (ICD-10 - E03.9 ) continue current dose and monitor Oct, Stage 3 chronic kidney disease (ICD-10 - N18.3) will monitor - advised to avoid NSAIDs Oct, Encounter for vitamin deficiency screening (ICD- 10 - Z13.21) PLAN OF TREATMENT Treatment Notes Assessment Notes Clinical Notes Essential hypertension continue current meds and f/up with robinson Juárez Hyperlipidemia Continue statin, Monitor lip ids - decrease sweets due to high Trig Hypothyroidism, unspecified type continue current dose and m onitor Stage 3 chronic kidney disease will monitor - advised to fiordaliza id NSAIDs Future Test Test Name Order Date Basic Metabolic Profile (BMP) [id number] FREE T4 & TSH PANEL [id number] MICROALBUMIN RANDOM [id number] VITAMIN D 25-HYDROXY [id number] Next Appt Details 6 Weeks (30min) Reason:f/up labs/ discus s advanced directives Provider Name:Lolis Kenrick 2020-11-20 01:4 5:00 PM, [address] [place], [address], Follow Up:6 Weeks (30min)f/up labs/ discuss advanced directives Insurance Providers Payer Name Payer Address Payer Phone Insured Name Patient Relati onship to Insured Coverage Start Date Coverage End Date [facility] [employer] [address] [facility] [address] DEANNA AN self
--- OUTSIDE RECORDS SUMMARY | 2020-11-19 14:49 | CCD | Continuity of Care Document ---
Author Author Rinku RIVERA PA-C Organization Unknown Address [address] [place] [address] [address] [place] [address] Phone [phone] Care Team Providers Care Disability Advocate Name Role Phone [facility] - [phone] AUTM [phone] Damaso Hampton MD AUTM [phone] Problems Description No Active Problems Social History Type Date Description Comments Sex Unknown ETOH Use Denies alcohol use Tobacco Use Start: Unknown End: Unknown Patient is a former smoker quit 33 yrs old Smoking Status Reviewed: 12/09/18 Patient is a former smoker qu it [...] By Mouth @8Am and Take One Tablet @12PM and Take One Tablet @5PM 90tabs M51.26 Seth Parson MD 12/23/2016 [...] Available Vital Signs Date Vital Result Comment 10/12/2020 12:59pm Body Temperature 97.3 F Height 68 inches 5'8" Weight 306.00 lb BMI (Body Mass Index) 46.5 kg/m2 10/11/2020 10:42am Body Temperature 96.8 F Results Test Acquired Date Facility Test Result H/L Range Note Laboratory test finding 06/14/2020 [facility] [address] [place] [address] (315)- - Coronavirus 2019 Nasopharygeal This nucleic aci <SEE NOTE> 1 1 This nucleic acid amplificat ion test was developed and its performance characteristics determined by [employer]. Nucleic acid amplification tests include PCR and [...] detected) result in this assay. Performed at: [facility] [id number] Bar Examiner: Ruth Ann Gonzalez MD, Phone: [phone] Not Detected Procedures Date Code Description Status 10/12/2020 30077 Inject/Drain Joint/Bursa Small C ompleted 10/11/2020 25069 Inject/Drain Joint/Bursa Major C ompleted 05/01/2020 17734 X-Ray Shoulder Complete Complete d 05/01/2020 Inject/Drain Joint/Bursa Major C ompleted Medical Devices Description No Information Available Encounters Description No Information Available Assessments Date Code Description Provider 10/12/2020 M19.042 Primary osteoarthritis, left roland d Marielena Rivera PA-C 10/11/2020 M25.562 Pain in left knee Marielena eckert PA-C 06/18/2020 M25.562 Pain in left knee Richard Pond MD 05/29/2020 M75.41 Impingement syndrome of right sh [place]ulder Marielena Rivera PA-C 05/01/2020 M25.511 Pain in right shoulder Richard Pond MD Plan of Treatment Future Appointment(s):* 11/02/2020 9:00 am - Richard Pond MD at [facility] 10/12/2020 - Marielena Rivera PA-C* M19.042 Primary osteoarthritis, left hand * Follow up:* 2 weeks with BMS for left hand recheck Functional Status Description No Information Available Mental Status Description No Information Available Referrals Refer to Dr Reason for Referral Status Appt Date Richard Pond MD authorization for physical t herapy evaluation [phone] Left knee. Patient coming here, passed to PT Dept. AC Created [address] [facility] [address], [address] [place] [address] [phone] Richard Pond MD authorization for physical t herapy Left knee. Patient coming here. AC Created [address], [address] [place] [address] [phone]
--- OUTSIDE RECORDS SUMMARY | 2020-11-19 14:49 | CCD | Continuity of Care Document ---
Author Author Rinku IRIZARRY DPM Organization Unknown Address [address] [place] [address], [address] [place] [address] Phone [phone] Care Team Providers Care Call Or Contact Centre Team Leader Name Role Phone Bladimir Ramirez M.D. AUTM [phone] Bhavani Rossi AUTM [phone] YAMILE Noe AUTM [phone] MD Gauri Salcedo AUTM [phone] Problems Active Problems Provider Date Hammer toe [...] right foot wound daily 22gm Dylan Irizarry, M 04/12/2020 Naproxen 500mg Tablets 1 tab twice daily with food 60tabs Dylan Irizarry, M 11/21/2019 Hydrocortisone 1% Cream Apply To Rash Once Daily 28.35units Dylan Irizarry, M 04/26/2019 Ammonium Lactate 12% Cream apply to feet twice daily 280units Dylan Irizarry, M 11/16/2018 Prednisone 10mg Tablets prednisone taper: take 4 tabs for 5 days, 3 tabs for days 6 and 7, 2 tabs for days 8 and 9, and 1 tab days 10 and 11 32tabs Dylan Irizarry, [facility] 07/27/20 18 Urea 20 Intensive Hydrating Cream 20% Cream apply to callus on feet daily 85units Dylan ribeiro, M 11/03/2017 Indomethacin 50mg Capsules one tab by mouth 3 times daily 45caps Dylan Irizarry, [facility] 017 Colcrys 0.6mg Tablets take twice daily 20tabs Dylan Irizarry, [facility] 02/25/2017 Prednisone 10mg Tablets prednisone taper: take 4 tabs for 5 days, 3 tabs for days 6 and 7, 2 tabs for days 8 and 9, and 1 tab days 10 and 11 32tabs Dylan Irizarry, [facility] 01/24/20 17 Ketoconazole 2% Cream apply to feet twice daily 60units Dylan Irizarry, [facility] 05/06/2016 Ibuprofen 600mg Tablets take 1 tablet by mouth every 4 hours as needed for pain 30tabs Dylan Irizarry, CHIOMA 04/18/2016 Lac-Hydrin 12% Cream apply twice a day to both feet 280g Dylan Irizarry, CHIOMA 01/31/2015 Silvadene 1% Cream apply twice a day to ulcer 60g Hansel Irizarry, DP 01/31/2015 Lac-Hydrin 12% Cream apply as directed twice a day to both feet 280g Hansel Irizarry, CHIOMA Loprox 0.77% Gel apply twice a day as directed 90gram Hansel Hoffmannak, DPM 06/08/2014 Lac-Hydrin Twelve 12% Lotion Applied b.i.d. [...] Inject Triamcinolone Acetonide 10 ML, ND C 5048-3849-54 Injection Dylan barnes, DP 01/25/2018 Inject Dexamthosone Phosphate 94882-194- 30 Injection Dylan Irizarry, [facility] 018 Inject Triamcinolone Acetonide 10 ML, ND C 4489-6793-39 Injection Dylan barnes, DP 03/13/2017 Inject Dexamthosone Phosphate 18315-627- 30 Injection Dylan Irizarry, [facility] 017 Inject Triamcinolone Acetonide 10 ML, ND C 1327-8935-34 Injection Dylan barnes, DP 02/06/2017 Inject Dexamthosone Phosphate 00068-791- 30 Injection Dylan Irizarry, [facility] 017 Inject Dexamthosone Phosphate 40702-935- 30 Injection Dylan Irizarry, [facility] 016 Inject Triamcinolone Acetonide 10 ML, ND C 5132-0765-27 Injection Hansel barnes, DP 02/14/2015 Inject Dexamthosone Phosphate 68686-286- 30 Injection Hansel Irizarry, [facility] 015 Inject Triamcinolone Acetonide 10 ML, ND C 3048-6793-03 Injection Hansel barnes, DP 07/03/2014 Inject Dexamthosone Phosphate 37067-550- 30 Injection Hansel Irizarry, [facility] 014 Inject Triamcinolone Acetonide 10 ML, ND C 9275-7226-10 Injection Hansel barnes, DP 06/08/2014 Inject Dexamthosone Phosphate 42860-418- 30 Injection Hansel Irizarry, DP 014 Immunizations [...] H/L Range Note Laboratory test finding 07/18/2020 [facility] Pathology Request For Service (SEE NOTE) 1 Complete Blood Count 07/17/2020 [facility] White Blood Count 6.9 10 Normal 4.0-10.0 [...] % Normal 0-0 Basic Metabolic Profile 07/17/2020 [facility] Glucose, Fasting 90 mg/dL Normal 70-100 Blood [...] bone" and consists of two pieces of munguia-white bone measuring 1.2 x 1.0 x 0.4 cm. in aggregate. The specimen is for gross exam only. -SV 07/18/2020 - 1521 Signed KIRSTY HEALY MD 07/19/2020 09 2 Units are mL/min/1.73 m2 Chronic Kidney Disease Staging per NKF: Stage I & II GFR >=60 Normal to Mildly Decreased Stage III GFR 30-59 Moderately Decreased Stage IV GFR 15-29 Severely Decreased Stage V GFR <15 Very Little GFR Left ESRD GFR <15 on NICKEL PLATER Procedures Date Code Description Status 07/23/2020 73898 X-Ray Foot Complete Completed 07/18/2020 95687 Ostectomy/Exostectomy/Condylecto my Metatarsal Head Completed 07/18/2020 58067 Hammertoe Proc One Toe Completed 07/18/2020 Remove Support Implant Deep Comp leted Medical Devices Description No Information Available Encounters Type Date Location Provider Dx Diagnosis Office Visit 09/05/2020 10:30a [facility] Dylan Irizarry DPM Z48.89 Encounter for other specified surgical aftercare Office Visit 08/16/2020 2:30p [facility] Dylan Irizarry DPM Z48.89 Encounter for other specified surgical aftercare Office Visit 08/06/2020 3:00p [facility] Dylan Irizarry DPM Z48.89 Encounter for other specified surgical aftercare Office Visit 07/23/2020 8:45a [facility] Dylan Irizarry DPM M20.41 Other hammer toe(s) (acquired), right foot Z48.89 Encounter for other specifie d surgical aftercare Office Visit 06/07/2020 2:45p [facility] Dylan Irizarry DPM M20.42 Other hammer toe(s) (acquired), left foot M79.675 Pain in left toe(s) Office Visit 05/25/2020 3:15p [facility] Dylan Irizarry DPM T84.84xA Pain due to internal orthopedic prosth dev/grft, init M20.42 Other hammer toe(s) (acquire d), left foot Assessments Date Code Description Provider 09/05/2020 Z48.89 Encounter for other specified cho rgical aftercare Dylan Irizarry DPM 08/16/2020 Z48.89 Encounter for other specified cho rgical aftercare Dylan Irizarry DPM 08/06/2020 Z48.89 Encounter for other specified cho rgical aftercare Dylan Irizarry DPM 07/23/2020 M20.41 Other hammer toe(s) (acquired), right foot CHIOMA MujicaM 07/23/2020 Z48.89 Encounter for other specified cho rgical aftercare Dylan Irizarry, YAMILE 07/18/2020 M77.52 Other enthesopathy of left foot and ankle Dylan Irizarry, YAMILE 07/18/2020 T84.84xA Pain due to internal orthopedic prosthetic devices, implants and grafts, initial encounter Dylan Irizarry DPM 07/18/2020 M79.675 Pain in left toe(s) Dylan stahl, YAMILE 07/18/2020 M20.41 Other hammer toe(s) (acquired), right foot Dylan Irizarry, YAMILE 06/07/2020 M20.42 Other hammer toe(s) (acquired), left foot Dylan Irizarry, YAMILE 06/07/2020 M79.675 Pain in left toe(s) Dylan stahl, YAMILE 05/25/2020 T84.84xA Pain due to internal orthopedic prosthetic devices, implants and grafts, initial encounter Dylan Irizarry DPM 05/25/2020 M20.42 Other hammer toe(s) (acquired), left foot Dylan Irizarry DPM Plan of Treatment Future Appointment(s):* 12/04/2020 2:45 pm - Dylan Irizarry DPM at [facility] Functional Status Description No Information Available Mental Status Description No Information Available Referrals Description No Information Available
--- OUTSIDE RECORDS SUMMARY | 2020-11-19 14:49 | CCD | Continuity of Care Document ---
Author Author Rinku XIE MD Organization Unknown Address [address] [facility] [place] [address] Phone [phone] Care Team Providers Care Rags Laborer Name Role Phone [facility] - [phone] AUTM Damaso Hampton MD AUTM [phone] Problems Description No Active Problems Social History [...] One Tablet By Mouth @5PM 90tabs M51.26 Steh Parson MD 12/23/2016 Albuterol Sulfate (2 .5mg/3ML) [...] H/L Range Note Laboratory test finding 06/14/2020 [facility] [address] [place] [address] (802)- - Coronavirus 2019 Nasopharygeal This nucleic aci <SEE NOTE> 1 1 This nucleic acid amplificat ion test was developed and its performance characteristics determined by [facility] [facility]. Nucleic acid amplification tests include PCR and [...] detected) result in this assay. Performed at: - [facility] [id number] Inhalation Therapist: Ruth Ann Gonzalez MD, Phone: [phone] Not Detected Procedures Date Code Description Status 10/29/2020 26869 FX Metacarpal W/O Manipulation C ompleted 10/12/2020 54141 Inject/Drain Joint/Bursa Small C ompleted 10/11/2020 76946 Inject/Drain Joint/Bursa Major C ompleted Medical Devices Description No Information Available Encounters Description No Information Available Assessments Date Code Description Provider 11/02/2020 M17.12 Unilateral primary osteoarthriti s, left knee Richard Xie MD 11/02/2020 M25.562 Pain in left knee Richard Xie MD 10/29/2020 M19.042 Primary osteoarthritis, left roland robinson Rivera PA-C 10/29/2020 S62.235A Other nondisplaced f racture of base of first metacarpal bone, left hand, initial encounter for closed fracture Marielena Rivera PA-C 10/12/2020 M19.042 Primary osteoarthritis, left roland robinson Rivera PA-C 10/12/2020 M19.042 Primary osteoarthritis, left roland robinson Rivera PA-C 10/11/2020 M17.12 Unilateral primary osteoarthriti s, left knee Marielena Rivera PA-C 06/18/2020 M25.562 Pain in left knee Richard Xie MD 05/29/2020 M75.41 [facility]ing[facility] PA-C Plan of Treatment Future Appointment(s):* 11/06/2020 9:15 am - Marielena Rivera PA-C at [place] 11/02/2020 - Richard Xie MD* M17.12 Unilateral primary osteoarthritis, left knee* New Orders:* Surgery, Ordered: 11/02/20 * Follow up:* post op * M25.562 Pain in left knee Functional Status Description No Information Available Mental Status Description No Information Available Referrals Refer to Reason for Referral Status Appt Date Richard Xie MD authorization for physical t herapy evaluation [phone] Left knee. Patient coming here, passed to PT Dept. Created [address] [place] [address] [phone] Richard Xie MD authorization for physical t herapy Left knee. Patient coming here. Created [address] [place] [address] [phone]
--- OUTSIDE RECORDS SUMMARY | 2020-11-19 14:49 | CCD | Continuity of Care Document ---
Author Author Rinku RIVERA PA-C Organization Unknown Address [address] [place] [address] [address] [place] [address] Phone [phone] Care Team Providers Care Pediatric Assistant Name Role Phone [facility] - [phone] AUTM Damaso Hampton MD AUTM [phone] Problems Description No Active Problems Social History [...] H/L Range Note Laboratory test finding 06/14/2020 [facility] [address] [place] [address] (315)- - Coronavirus 2019 Nasopharygeal This nucleic aci <SEE NOTE> 1 1 This nucleic acid amplificat ion test was developed and its performance characteristics determined by [employer] Nucleic acid amplification tests include PCR and [...] detected) result in this assay. Performed at: [facility] [id number] Commissions Manager: Ruth Ann Gonzalez MD, Phone: [phone] Not Detected Procedures Date Code Description Status 10/12/2020 74696 Inject/Drain Joint/Bursa Small C ompleted 10/11/2020 67071 Inject/Drain Joint/Bursa Major C ompleted 05/01/2020 81476 X-Ray Shoulder Complete Complete d 05/01/2020 Inject/Drain [...] Pond MD Plan of Treatment Future Appointment(s):* 10/29/2020 2:15 pm - Marielena Rivera PA-C at [place] * 11/02/2020 9:00 am - Richard Pond MD at [place] 10/11/2020 - Marielena Rivera PA-C* M17.12 Unilateral primary osteoarthritis, left knee* Follow up:* 2-3 weeks with SBF for left knee Functional Status Description No Information Available Mental Status Description No Information Available Referrals Refer to Reason for Referral Status Appt Date Richard Pond MD authorization for physical t herapy evaluation [phone] Left knee. Patient coming here, passed to PT Dept. AC Created [address] [facility], [address] [place] [address] [phone] Richard Pond MD authorization for physical t herapy Left knee. Patient coming here. AC Created [address], [address] [place] [address] [phone]
--- OUTSIDE RECORDS SUMMARY | 2020-11-19 14:49 | CCD | Continuity of Care Document ---
Author Author Rinku RIVERA PA-C Organization Unknown Address [address] [place] [address] Phone [phone] Care Team Providers Care Cook Roast Name Role Phone [facility] - [phone] AUTM Damaso Hampton MD AUTM [phone] Problems Description No Active Problems Social History [...] Available Vital Signs Date Vital Result Comment 10/29/2020 2:20pm Body Temperature 97.3 F 10/12/2020 12:59pm Body Temperature 97.3 F Height 68 inches 5'8" Weight 306.00 lb BMI (Body Mass Index) 46.5 kg/m2 Results Test Acquired Date Facility Test Result H/L Range Note Laboratory test finding 06/14/2020 [facility] [address] [place] [address] (315)- - Coronavirus 2019 Nasopharygeal This nucleic aci <SEE NOTE> 1 1 This nucleic acid amplificat ion test was developed and its performance characteristics determined by [employer]. Nucleic acid amplification tests include PCR and [...] detected) result in this assay. Performed at: [facility] [id number] Pocket Machine Operator: Ruth Ann Gonzalez MD, Phone: [phone] Not Detected Procedures Date Code Description Status 10/29/2020 27661 FX Metacarpal W/O Manipulation C ompleted 10/12/2020 23233 Inject/Drain Joint/Bursa Small C ompleted 10/11/2020 87091 Inject/Drain Joint/Bursa Major C ompleted 05/01/2020 74671 X-Ray Shoulder Complete Complete d 05/01/202086421 Inject/Drain Joint/Bursa Major C ompleted Medical Devices Description No Information Available Encounters Description No Information Available Assessments Date Code Description Provider 10/29/2020 M19.042 Primary osteoarthritis, left roland robinson Marielena Rivera PA-C 10/29/2020 S62.235A Other nondisplaced f racture of base of first metacarpal bone, left hand, initial encounter for closed fracture Marielena Rivera PA-C 10/12/2020 M19.042 Primary osteoarthritis, left roland d Marielena Rivera PA-C 10/12/2020 M19.042 Primary osteoarthritis, left roland robinson Marielena Rivera PA-C 10/11/2020 M17.12 Unilateral primary osteoarthriti s, left knee Marielena Rivera PA-C 06/18/2020 M25.562 Pain in left knee Richard Pond MD 05/29/2020 M75.41 Impingement syndrome of right sh oulder Marielena Rivera PA-C 05/01/2020 M25.511 Pain in right shoulder Richard Pond MD Plan of Treatment Future Appointment(s):* 11/06/2020 9:15 am - Marielena Rivera PA-C at [place] * 11/02/2020 9:00 am - Richard Pond MD at [place] 10/29/2020 - Marielena Rivera PA-C* M19.042 Primary osteoarthritis, left hand * S62.235A Other nondisplaced fracture of base of first metacarpal bone, left hand, initial encounter for closed fracture* Follow up:* in 1 week with BMS with xrays in cast Functional Status Description No Information Available Mental Status Description No Information Available Referrals Refer to Dr Reason for Referral Status Appt Date Richard Pond MD authorization for physical t herapy evaluation [phone] Left knee. Patient coming here, passed to PT Dept. AC Created [address] [place] [address] [phone] Richard Pond MD authorization for physical t herapy Left knee. Patient coming here. AC Created [address] [place] [address] [phone]
--- OUTSIDE RECORDS SUMMARY | 2020-11-19 14:49 | CCD ---
Author Author [facility] Organization [facility] Address Unknown Phone Unavailable Care Team Providers Care Video Systems Engineer Name Role Phone Winifred Greco Unavailable PROBLEMS Type Condition ICD9-CM Code [id number] Code Onset Dates Condition S tatus SNOMED Code Notes Problem Allergic rhinitis J30.9 Active 28242149 Problem Coronary artery disease invo lving [place] coronary artery of [place] heart, angina presence unspecified I25.10 Active 1 737657410075 Problem Depression F32.9 Active 02057874 Problem Anxiety disorder, unspecified F41.9 Active 23 3193429 Problem Essential hypertension I10 Active 14814838 Problem Intervertebral disc disorder with radiculopathy of lumbar region M51.16 Active 29521600 Problem Obesity, unspecified E66.9 Active 09334095844 104 Problem Obstructive sleep apnea on CPAP G47.33 Active 23703042 Problem Obstructive sleep apnea (adult) (pediatric) G47.33 Active 69178273 Problem Granuloma annulare L92.0 Active 48903594 Problem Gastroesophageal reflux disease with esophagitis K 21.0 Active 324723372 Problem Melanocytic nevi of trunk D22.5 Active 615981 002 Problem Sebaceous hyperplasia L73.8 Active 245702210 Problem Spondylosis of lumbar region without myelopathy or radiculopathy M47.816 Active 718197558 Problem 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 Active 3487315 00 Problem Stage 3 chronic kidney disease N18.3 Active 4 24661810 Problem Celiac disease K90.0 Active 446899908 Problem Hyperlipidemia E78.5 Active 72872573 Problem CKD (chronic kidney disease), stage III N18.3 Active 229722585 Problem Hypothyroidism, unspecified type E03.9 Active 65912563 Problem Carpal tunnel syndrome of right wrist G56.01 Ac tive 63191427 Problem Bilateral serous otitis media, unspecified chronicity H65.93 Active 12386686 Problem Unspecified open wound of right buttock, subsequ ent encounter S31.819D Active 98336503141794731 Problem 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 Active 0514400 Problem Inflammation of both ear canals H60.93 Active 9189010 Problem Disc displacement, 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 Active 696521 983069509 Problem Seborrheic keratoses L82.1 Active 158364409 Problem Dysfunction of both eustachian tubes H69.83 Act forrest 96502950 Problem Spondylosis without myelopathy or radiculopathy, lumbosacral region M47.817 Active 99215469 Problem Wound of right buttock, initial encounter S31.819A Active 199279243 Problem Sacroiliitis M46.1 Active 94004991 ALLERGIES Allergen (clinical drug ingredient) Drug/Non Drug Allergy do cumented on EMR Reaction Allergy Type Onset Date Status Latex (for allergy use only) Rash Drug Allergy Active Adhesive Tape rash Drug Allergy Active Gluten allergy Rash Non Drug Allergy Acti ve Codeine Phosphate (For Allergies Use Only) Nausea/Vomiting Drug Allergy Active ENCOUNTERS from 1967 to 2020-10-31 Encounter Location Date Provider Diagnosis [facility] [address] [place] [phone] Oct, Winifred Greco IMMUNIZATIONS Vaccine Route Administration Date [...] Education Language: Question Answer Notes Languages spoken: Swedish Pentecostal: Question Answer Notes Pentecostal 05 [employer] No jehovah's witness beliefs that would impact health care. Drug [...] Adult - as directed Orally Dec, Active [place] Nasal - USE DIRECTED DAILY NEE DED Nasally four times daily for 20 Active Fish Oil + D3 2351-4677 MG-UNIT 1 capsule Orally BID OTC Active [...] tablet Orally Once a day Aug, Active Jeannette Nasal [place] 0.65 % 2 sprays in each nostril [...] Information RESULTS No Results REASON FOR VISIT INJURED ARM/PROCEDURE MEDICAL (GENERAL) HISTORY Type Description Date Medical History Depression/Anxiety- Dr Enriquez. /therapist Q2 weeks Medical History Hyperlipidemia Medical History GERD with Barretts: Repeat EGD in 8 Medical History vitamin d def Medical History FRAN: following with Pulmonol ogy: compliant with CPAP-pulmonology Medical History CAD: Bypass with autologous vein: Dr. Shelley munguia at [facility] Medical History ECHO 10/17/2016. Hypertensive heart [...] EGD- [facility] 02/02/15 Surgical History hemorrhoidectomy 4-- Surgical History left foot bunionectomy with first metatarsal osteostomy-Dr. Chand 03/31/16 Surgical History CABG- 4 vessel at [place] 11/11/16 Surgical History Left hand CP sx, and tendon removal. Bone and joint [facility] 01/2018 Surgical History Upper Endoscopic Ultrasound with [...] bone filing - Mannie 07/2020 Hospitalization History [facility]- Depression/A nxiety 14 yo Hospitalization History [facility]- [place]- depre ssion 18 yo Hospitalization History Father Verenice- Janki- ezequiel d facilty- tx of depression. [age]yo Hospitalization History Hemorrhoidectomy with remova l of a mixed hemorrhoidal bundles at the left lateral and right anterior and posterior positions. 01/11/2016 Hospitalization History CABG: [facility] 11/11/16 Hospitalization History Rehab [facility] 11/21 Hospitalization History POST RIGHT HAND HAND AND ELBOW SURGE RY 10/2019 Hospitalization History [facility] ED- Post-op problem, left foot c drewtis 08/03/2020 Goals Section No Information Health Concerns No Information MEDICAL EQUIPMENT No Information MENTAL STATUS No Information FUNCTIONAL STATUS No Information ASSESSMENTS No Information PLAN OF TREATMENT Medication Medication Name Sig Start Date Stop Date [place] Nasal - USE DIRECTED DAILY NEE DED Nasally four times daily for 20 Next Appt Details Provider Name:Lolis Choudhary, 2020-11-20 01:4 5:00 PM, [address] [place], [address], Insurance Providers Payer Name Payer Address Payer Phone Insured Name Patient Relati onship to Insured Coverage Start Date Coverage End Date [facility] [employer] [address] [facility] [address] DEANNA AN self
--- OUTSIDE RECORDS SUMMARY | 2020-11-19 14:50 | CCD ---
Author Author [facility] Organization [facility] Address Unknown Phone Unavailable Care Team Providers Care Licensing Worker Name Role Phone Lolis Choudhary Unavailable PROBLEMS Type Condition ICD9-CM Code [id number] Code Onset Dates Condition S tatus SNOMED Code Notes Problem Allergic rhinitis J30.9 Active 06443448 Problem Coronary artery disease invo lving [place] coronary artery of [place] heart, angina presence unspecified I25.10 Active 1 165143003217 Problem Depression F32.9 Active 39973201 Problem Anxiety disorder, unspecified F41.9 Active 23 8973745 Problem Essential hypertension I10 Active 17392809 Problem Intervertebral disc disorder with radiculopathy of lumbar region M51.16 Active 64536186 Problem Obesity, unspecified E66.9 Active 64231925288 104 Problem Obstructive sleep apnea on CPAP G47.33 Active 76538532 Problem Obstructive sleep apnea (adult) (pediatric) G47.33 Active 79052157 Problem Granuloma annulare L92.0 Active 83986096 Problem Gastroesophageal reflux disease with esophagitis K 21.0 Active 278386304 Problem Melanocytic nevi of trunk D22.5 Active 680260 002 Problem Sebaceous hyperplasia L73.8 Active 412790912 Problem Spondylosis of lumbar region without myelopathy or radiculopathy M47.816 Active 948664266 Problem 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 Active 4597460 00 Problem Stage 3 chronic kidney disease N18.3 Active 4 05486889 Problem Celiac disease K90.0 Active 511399870 Problem Hyperlipidemia E78.5 Active 72002913 Problem CKD (chronic kidney disease), stage III N18.3 Active 344891295 Problem Hypothyroidism, unspecified type E03.9 Active 42788230 Problem Carpal tunnel syndrome of right wrist G56.01 Ac tive 46913639 Problem Bilateral serous otitis media, unspecified chronicity H65.93 Active 09543798 Problem Unspecified open wound of right buttock, subsequ ent encounter S31.819D Active 17051908479608473 Problem 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 Active 1786487 Problem Inflammation of both ear canals H60.93 Active 9337693 Problem Disc displacement, 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 Active 647673 454225561 Problem Seborrheic keratoses L82.1 Active 321665306 Problem Dysfunction of both eustachian tubes H69.83 Act forrest 95120664 Problem Spondylosis without myelopathy or radiculopathy, lumbosacral region M47.817 Active 03638016 Problem Wound of right buttock, initial encounter S31.819A Active 556631157 Problem Sacroiliitis M46.1 Active 81096856 ALLERGIES Allergen (clinical drug ingredient) Drug/Non Drug Allergy do cumented on EMR Reaction Allergy Type Onset Date Status Latex (for allergy use only) Rash Drug Allergy Active Adhesive Tape rash Drug Allergy Active Gluten allergy Rash Non Drug Allergy Acti ve Codeine Phosphate (For Allergies Use Only) Nausea/Vomiting Drug Allergy Active ENCOUNTERS from 1967 to 2020-09-25 Encounter Location Date Provider Diagnosis [address] [address] Sep, 020 [facility] IMMUNIZATIONS Vaccine Route Administration Date Status Influenza (6mo & up) Fluzone IM Intramuscular Jul 16, 2017 Ad ministered Influenza (18 yrs & older) Flublok IM Intramuscular Jul 27, 2019 Administered Zoster 50mcg/0.5mL (Shingrix) Unknown December 21, 2018 Ad ministered Pneumococcal Adult 0.5mL (Pneumovax 23) IM Intramuscular Jul 27, 2019 Administered Influenza (6mo & up) Fluzone Unknown Jul [...] Education Language: Question Answer Notes Languages spoken: Lithuanian Congregational: Question Answer Notes Congregational 05 Rastafarian No adventism beliefs that would impact health care. Drug [...] Notes Start Da te End Date Status Fish Oil + D3 3105-6804 MG-UNIT 1 capsule Orally BID OTC Unknown Multivitamin Adult - as directed Orally Dec, Unknown Tramadol HCl 50 MG 1 tablet as needed Orally Once a day Not-Taking Escitalopram Oxalate 20 MG 1 tablet Orally Once a day for 30 day (s) Aug, Unknown Sulfamethoxazole-TMP DS 1 TAB TWICE DAILY Active Hydrocortisone 1 % 1 application rash Once a day Unknown BusPIRone HCl 10 MG TAKE ONE TABLET BY MOUTH @8A M and TAKE ONE TABLET @8PM Oral for 28 Active Montelukast Sodium 10 MG 1 tablet Orally Once a day for 28 Active Dapsone 25 MG 1 tablet Orally Once a day for 30 day(s) Not-Taking Escitalopram Oxalate 10 MG 1 tablet Oral Once a day along with a 20 mg tablet Active Nitroglycerin 0.4 MG as directed Sublingual Unknown Ondansetron HCl 4 MG TAKE ONE TABLET BY MOUTH ONE TO TWO TIMES A DAY BEFORE MEALS, TAKE ONLY WHEN HAVING NAUSEA Oral for 15 Unknown Vitamin D 1000 UNIT 1 tablet Orally Once a day Dec, 9 Unknown Betamethasone Dipropionate Aug 0.05 % 1 application to affected area Externally BID to rash on elbow for 30 day(s) Unknown Ventolin HFA 108 (90 Base) MCG/ACT INHALE TWO PUFFS BY MOUTH EVERY FOUR HOURS NEEDED Inhalation - for 30 days Active Cetirizine HCl 10 MG 1 tablet Orally once daily for 28 days Active DermOtic 0.01 % 5 gtt into each ear Otic Twice a day for 10 days Aug, Not-Taking Tizanidine HCl 4 MG 1 tab Oral Q8H TID for 30 Days Unknown Fluticasone Propionate 50 MCG/ACT 1 spray in each nost ril Nasally bid for 30 Days Dec, Unknown Levothyroxine Sodium 25 MCG 1 tablet in the morning on an empty stomach Orally Once a day for 30 Active Gabapentin 600 MG TAKE ONE TABLET BY MOUTH @8A M and TAKE ONE TABLET @12PM and TAKE ONE TABLET @8PM Oral q8h TID for 30 Days Active Acetaminophen 500 MG 2 capsule Orally every 8 hrs as needed for pain for 30 Days Aug, Unknown Omeprazole 40 MG TAKE ONE CAPSULE BY MOUTH @8AM ON AN EMPTY STOMACH O ral Active Sucralfate 1 GM TAKE ONE TABLET BY MOUTH FOUR TIMES DAILY AFTER MKIE LS Oral Unknown [place] Nasal [place] 0.65 % 2 sprays in each nostril as needed Nasally 4x daily for 30 Days Jan, Unknown Trihexyphenidyl HCl 2 MG TAKE ONE TABLET BY MOUTH TWICE DAILY Orally bid Active Topiramate 25 MG 1 tablet Orally Once a day for 30 day(s) Unknown Atorvastatin Calcium 40 MG Take 1 tablet By Mouth once a day for 90 Active Ibuprofen 600 MG 1 tablet with food or milk a s needed Orally bid as needed for 10 day(s) Sep, Unknown Singulair 10 MG 1 tablet Orally at bedtime for 30 day(s) 0 February, Unknown Aspirin 81 MG 1 tablet Orally Once a day Aug, Unknown Tizanidine HCl 4 MG 1 tablet as needed Orally Th ree times a day NEEDED FOR SEVERE PAIN for 30 Days Active Famotidine 20 MG TAKE ONE TABLET BY MOUTH @8A M and TAKE ONE TABLET BY MOUTH @8PM Oral for 28 Active Topiramate 50 MG 1 tablet Orally Once a day Active Metoprolol Tartrate 25 mg 1/2 tab Oral Daily Active Tramadol HCl 50 MG 1 tablet as needed Orally q6h prn mdd4 for 30 Days Sep, Active PROCEDURES No Information RESULTS No Results REASON FOR VISIT ER Visit [facility] D/C 09/22; Lt Hand Injury MEDICAL (GENERAL) HISTORY Type Description Date Medical History Depression/Anxiety- Dr Enriquez. /therapist Q2 weeks Medical History Hyperlipidemia Medical History GERD with Barretts: Repeat EGD in 8 Medical History vitamin d def Medical History FRAN: following with Pulmonol ogy: compliant with CPAP-pulmonology Medical History CAD: Bypass with autologous vein: [facility]. Shelley munguia at [facility] Medical History ECHO 10/17/2016. Hypertensive heart disea [...] 03/31/16 Surgical History CABG- 4 vessel at [place] 11/11/16 Surgical History Left hand CP sx, and tendon removal. Bone and joint center [facility] 01/2018 Surgical History Upper Endoscopic Ultrasound with [...] Surgical History right foot hammer toe correction 07/2020 Surgical History left foot screw removal with bone filing 07/2020 Hospitalization History [facility]- Depression/A nxiety 14 yo Hospitalization History [facility]- [place]- depre ssion 18 yo Hospitalization History Father Verenice- Janki- ezequiel d facilty- tx of depression. 16-18yo Hospitalization History Hemorrhoidectomy with remova l of a mixed hemorrhoidal bundles at the left lateral and right anterior and posterior positions. 01/11/2016 Hospitalization History CABG: [facility] 11/11/16 Hospitalization History Rehab [facility] 11/21 Hospitalization History POST RIGHT HAND HAND AND ELBOW SURGE RY 10/2019 Hospitalization History [facility] ED- Post-op problem, left foot c ellulitis 08/03/2020 Goals Section No Information Health Concerns No Information MEDICAL EQUIPMENT No Information MENTAL STATUS No Information FUNCTIONAL STATUS No Information ASSESSMENTS No Information PLAN OF TREATMENT Medication Medication Name Sig Start Date Stop Date Tizanidine HCl 4 MG 1 tablet as needed Orally Th ree times a day NEEDED FOR SEVERE PAIN for 30 Days Tramadol HCl 50 MG 1 tablet as needed Orally q6h prn mdd4 f or 30 Days Sep, Next Appt Details Provider Name:Lolis Choudhary, 2020-10-09 01:0 0:00 PM, [address] [place], [address], Insurance Providers Payer Name Payer Address Payer Phone Insured Name Patient Relati onship to Insured Coverage Start Date Coverage End Date [facility] [address] [facility] [phone] DEANNA AN self
--- OUTSIDE RECORDS SUMMARY | 2020-11-19 14:50 | CCD ---
Author Author [facility] Organization [facility] Address Unknown Phone Unavailable Care Team Providers Care Hemotherapist Name Role Phone Shane Armas Unavailable PROBLEMS Type Condition ICD9-CM Code [id number] Code Onset Dates Condition S tatus SNOMED Code Notes Problem Allergic rhinitis J30.9 Active 53624245 Problem Coronary artery disease invo lving [place] coronary artery of [place] heart, angina presence unspecified I25.10 Active 1 072356061996 Problem Depression F32.9 Active 69973159 Problem Anxiety disorder, unspecified F41.9 Active 23 3684420 Problem Essential hypertension I10 Active 78722590 Problem Intervertebral disc disorder with radiculopathy of lumbar region M51.16 Active 81020514 Problem Obesity, unspecified E66.9 Active 76183639937 104 Problem Obstructive sleep apnea on CPAP G47.33 Active 95479508 Problem Obstructive sleep apnea (adult) (pediatric) G47.33 Active 56714747 Problem Granuloma annulare L92.0 Active 31657586 Problem Gastroesophageal reflux disease with esophagitis K 21.0 Active 689182551 Problem Melanocytic nevi of trunk D22.5 Active 722217 002 Problem Sebaceous hyperplasia L73.8 Active 286381992 Problem Spondylosis of lumbar region without myelopathy or radiculopathy M47.816 Active 565306238 Problem 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 Active 5305833 00 Problem Stage 3 chronic kidney disease N18.3 Active 4 52511950 Problem Celiac disease K90.0 Active 337440002 Problem Hyperlipidemia E78.5 Active 47590213 Problem CKD (chronic kidney disease), stage III N18.3 Active 041890340 Problem Hypothyroidism, unspecified type E03.9 Active 94533035 Problem Carpal tunnel syndrome of right wrist G56.01 Ac tive 96177024 Problem Bilateral serous otitis media, unspecified chronicity H65.93 Active 27999913 Problem Unspecified open wound of right buttock, subsequ ent encounter S31.819D Active 72648088288086918 Problem 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 Active 3350804 Problem Inflammation of both ear canals H60.93 Active 8973585 Problem Disc displacement, 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 Active 535245 084880184 Problem Seborrheic keratoses L82.1 Active 742412912 Problem Dysfunction of both eustachian tubes H69.83 Act forrest 07184762 Problem Spondylosis without myelopathy or radiculopathy, lumbosacral region M47.817 Active 60896249 Problem Wound of right buttock, initial encounter S31.819A Active 473219648 Problem Sacroiliitis M46.1 Active 34017026 ALLERGIES Allergen (clinical drug ingredient) Drug/Non Drug Allergy do cumented on EMR Reaction Allergy Type Onset Date Status Latex (for allergy use only) Rash Drug Allergy Active Adhesive Tape rash Drug Allergy Active Gluten allergy Rash Non Drug Allergy Acti ve Codeine Phosphate (For Allergies Use Only) Nausea/Vomiting Drug Allergy Active ENCOUNTERS from 1967 to 2020-09-20 Encounter Location Date Provider Diagnosis [facility] [address] [place] [address] Aug Shane Armas IMMUNIZATIONS Vaccine Route Administration Date Status Influenza [...] Education Language: Question Answer Notes Languages spoken: Urdu Zoroastrian: Question Answer Notes Zoroastrian 05 Mandaeism No amish beliefs that would impact health care. Drug [...] Notes Start Da te End Date Status Ibuprofen 600 MG 1 tablet with food or milk a s needed Orally bid as needed for 10 day(s) Sep, Unknown Levothyroxine Sodium 25 MCG 1 tablet in the morning on an empty stomach Orally Once a day for 30 Active Dapsone 25 MG 1 tablet Orally Once a day for 30 day(s) Not-Taking Famotidine 20 MG TAKE ONE TABLET BY MOUTH @8A M and TAKE ONE TABLET BY MOUTH @8PM Oral for 28 Active Nitroglycerin 0.4 MG as directed Sublingual Unknown Cetirizine HCl 10 MG 1 tablet Orally once daily for 28 days Active Gabapentin 600 MG TAKE ONE TABLET BY MOUTH @8A M and TAKE ONE TABLET @12PM and TAKE ONE TABLET @8PM Oral q8h TID for 30 Days Active Sulfamethoxazole-TMP DS 1 TAB TWICE DAILY Active Sucralfate 1 GM TAKE ONE TABLET BY MOUTH FOUR TIMES DAILY AFTER MIKE LS Oral Unknown Topiramate 50 MG 1 tablet Orally Once a day Active Topiramate 25 MG 1 tablet Orally Once a day for 30 day(s) Unknown Tramadol HCl 50 MG 1 tablet as needed Orally q6h prn mdd4 for 30 Days Sep, Not-Taking Tizanidine HCl 4 MG 1 tab Oral Q8H TID for 30 Days Unknown Fluticasone Propionate 50 MCG/ACT 1 spray in each nost ril Nasally bid for 30 Days Dec, Unknown DermOtic 0.01 % 5 gtt into each ear Otic Twice a day for 10 days Aug, Active Betamethasone Dipropionate Aug 0.05 % 1 application to affected area Externally BID to rash on elbow for 30 day(s) Unknown Montelukast Sodium 10 MG 1 tablet Orally Once a day for 28 Active Omeprazole 40 MG TAKE ONE CAPSULE BY MOUTH @8AM ON AN EMPTY STOMACH O ral Active Ondansetron HCl 4 MG TAKE ONE TABLET BY MOUTH ONE TO TWO TIMES A DAY BEFORE MEALS, TAKE ONLY WHEN HAVING NAUSEA Oral for 15 Unknown Vitamin D 1000 UNIT 1 tablet Orally Once a day Dec, 9 Unknown Metoprolol Tartrate 25 mg 1/2 tab Oral Daily Active [place] Nasal [place] 0.65 % 2 sprays in each nostril as needed Nasally 4x daily for 30 Days Jan, Unknown Multivitamin Adult - as directed Orally Dec, Unknown Hydrocortisone 1 % 1 application rash Once a day Unknown Singulair 10 MG 1 tablet Orally at bedtime for 30 day(s) 0 February, Unknown Tramadol HCl 50 MG 1 tablet as needed Orally Once a day Active Atorvastatin Calcium 40 MG Take 1 tablet By Mouth once a day for 90 Active Ventolin HFA 108 (90 Base) MCG/ACT INHALE TWO PUFFS BY MOUTH EVERY FOUR HOURS NEEDED Inhalation - for 30 days Active Aspirin 81 MG 1 tablet Orally Once a day Aug, Unknown Trihexyphenidyl HCl 2 MG TAKE ONE TABLET BY MOUTH TWICE DAILY Orally bid Active BusPIRone HCl 10 MG TAKE ONE TABLET BY MOUTH @8A M and TAKE ONE TABLET @8PM Oral for 28 Active Fish Oil + D3 1260-6291 MG-UNIT 1 capsule Orally BID OTC Unknown Escitalopram Oxalate 20 MG 1 tablet Orally Once a day for 30 day (s) Aug, Unknown Escitalopram Oxalate 10 MG 1 tablet Oral Once a day along with a 20 mg tablet Active Acetaminophen 500 MG 2 capsule Orally every 8 hrs as needed for pain for 30 Days Aug, Unknown PROCEDURES No Information RESULTS No Results REASON FOR VISIT [facility] Apt. MEDICAL (GENERAL) HISTORY Type Description Date Medical History Depression/Anxiety- Dr Enriquez. /therapist Q2 weeks Medical History Hyperlipidemia Medical History GERD with Barretts: Repeat EGD in 8 Medical History vitamin d def Medical History FRAN: following with Pulmonol ogy: compliant with CPAP-pulmonology Medical History CAD: Bypass with autologous vein: Dr. Shelley munguia at [facility] Medical History ECHO 10/17/2016. Hypertensive heart [...] History Colonoscopy 2016 Medical History Upper Endoscopy 2017 Medical History Gallbladder U/S 04/23/18: Fat ty [...] 03/31/16 Surgical History CABG- 4 vessel at [place] 11/11/16 Surgical History Left hand CP sx, and tendon [facility] Surgical History Upper Endoscopic Ultrasound with Anesthe penelope 07/2018 Surgical History Wires removed from chest 09/29/2018 Surgical History Hammer toe, Left foot, Dr. Chand 03/30/19 Surgical History EGD-Dr. Duron 01/2019 Surgical History HammerToe 03/2019 Surgical History RIGHT HAND TRIGGER AND CARPEL TUNNEL 1-2 020 Surgical History R2ND TOE RGREAT TOE SURGERY 06/2020 Surgical History screw removal foot Hospitalization History [facility]- Depression/A nxiety 14 yo Hospitalization History [facility] [place]- depre ssion 18 yo Hospitalization History Father Caldera- [facility]- ezequiel d facilty- tx of depression. 16-20yo Hospitalization History Hemorrhoidectomy with remova l of a mixed hemorrhoidal bundles at the left lateral and right anterior and posterior positions. 01/11/2016 Hospitalization History CABG: [facility] 11/11/16 Hospitalization History Rehab [facility] 11/21 Hospitalization History POST RIGHT HAND HAND AND ELBOW SURGE RY 10/2019 Hospitalization History [facility] ED- Post-op problem, left foot c ellulitis 08/03/2020 Goals Section No Information Health Concerns No Information MEDICAL EQUIPMENT No Information MENTAL STATUS No Information FUNCTIONAL STATUS No Information ASSESSMENTS No Information PLAN OF TREATMENT Medication Medication Name Sig Start Date Stop Date Atorvastatin Calcium 40 MG Take 1 tablet By Mouth once a day for 90 Next Appt Details Provider Name:Winifred Greco, 2020-10-08 10 :00:00 AM, [address] [place], [address], Provider Name:Lolis Choudhary, 2020-10-09 01:0 0:00 PM, [address] [place], [address], Insurance Providers Payer Name Payer Address Payer Phone Insured Name Patient Relati onship to Insured Coverage Start Date Coverage End Date [facility] [address] [facility] [phone] DEANNA AN self
--- OUTSIDE RECORDS SUMMARY | 2020-11-19 14:50 | CCD ---
Author Author [facility] Organization [facility] Address Unknown Phone Unavailable Care Team Providers Care Roll Hauler Name Role Phone Winifred Greco Unavailable PROBLEMS Type Condition ICD9-CM Code [id number] Code Onset Dates Condition S tatus SNOMED Code Notes Problem Allergic rhinitis J30.9 Active 93650931 Problem Coronary artery disease invo lving [place] coronary artery of [place] heart, angina presence unspecified I25.10 Active 1 682565342837 Problem Depression F32.9 Active 00223979 Problem Anxiety disorder, unspecified F41.9 Active 23 6947238 Problem Essential hypertension I10 Active 62717073 Problem Intervertebral disc disorder with radiculopathy of lumbar region M51.16 Active 46754025 Problem Obesity, unspecified E66.9 Active 02269515041 104 Problem Obstructive sleep apnea on CPAP G47.33 Active 90662809 Problem Obstructive sleep apnea (adult) (pediatric) G47.33 Active 75153749 Problem Granuloma annulare L92.0 Active 56629656 Problem Gastroesophageal reflux disease with esophagitis K 21.0 Active 443456932 Problem Melanocytic nevi of trunk D22.5 Active 691865 002 Problem Sebaceous hyperplasia L73.8 Active 187162389 Problem Spondylosis of lumbar region without myelopathy or radiculopathy M47.816 Active 967950766 Problem 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 Active 0499719 00 Problem Stage 3 chronic kidney disease N18.3 Active 4 38614321 Problem Celiac disease K90.0 Active 203161435 Problem Hyperlipidemia E78.5 Active 11726013 Problem CKD (chronic kidney disease), stage III N18.3 Active 445030756 Problem Hypothyroidism, unspecified type E03.9 Active 16678548 Problem Carpal tunnel syndrome of right wrist G56.01 Ac tive 88297467 Problem Bilateral serous otitis media, unspecified chronicity H65.93 Active 63861229 Problem Unspecified open wound of right buttock, subsequ ent encounter S31.819D Active 09516396790530334 Problem 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 Active 7974663 Problem Inflammation of both ear canals H60.93 Active 7179230 Problem Disc displacement, 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 Active 943365 199251674 Problem Seborrheic keratoses L82.1 Active 434889529 Problem Dysfunction of both eustachian tubes H69.83 Act forrest 13361148 Problem Spondylosis without myelopathy or radiculopathy, lumbosacral region M47.817 Active 06881385 Problem Wound of right buttock, initial encounter S31.819A Active 380891029 Problem Sacroiliitis M46.1 Active 70130145 ALLERGIES Allergen (clinical drug ingredient) Drug/Non Drug Allergy do cumented on EMR Reaction Allergy Type Onset Date Status Latex (for allergy use only) Rash Drug Allergy Active Adhesive Tape rash Drug Allergy Active Gluten allergy Rash Non Drug Allergy Acti ve Codeine Phosphate (For Allergies Use Only) Nausea/Vomiting Drug Allergy Active ENCOUNTERS from 1967 to 2020-09-24 Encounter Location Date Provider Diagnosis [facility] [address] [place] [address] Sep, Winifred Greco Intervertebral disc disorder with radicu lopathy of lumbar region M51.16 IMMUNIZATIONS Vaccine Route Administration Date Status Influenza [...] Education Language: Question Answer Notes Languages spoken: Kenyan Roman Catholic: Question Answer Notes Roman Catholic 05 Congregational No mormon beliefs that would impact health care. Drug [...] End Date Status Fish Oil + D3 6926-7953 MG-UNIT 1 capsule Orally BID OTC Unknown [...] TIMES DAILY AFTER MIKE LS Oral Unknown [place] Nasal [place] 0.65 % 2 sprays in each nostril [...] Information RESULTS No Results REASON FOR VISIT Tramadol Refill MEDICAL (GENERAL) HISTORY Type Description Date Medical History Depression/Anxiety- Dr Enriquez. /therapist Q2 weeks Medical History Hyperlipidemia Medical History GERD with Barretts: Repeat EGD in 8 Medical History vitamin d def Medical History FRAN: following with Pulmonol ogy: compliant with CPAP-pulmonology Medical History CAD: Bypass with autologous vein: Dr. Shelley munguia at [facility] Medical History ECHO 10/17/2016. Hypertensive heart [...] 03/31/16 Surgical History CABG- 4 vessel at [place] 11/11/16 Surgical History Left hand CP sx, and tendon removal. [facility] 01/2018 Surgical History Upper Endoscopic Ultrasound [...] removal with bone filing 07/2020 Hospitalization History [facility]- Depression/A nxiety 14 yo Hospitalization History [facility] [place]- depre ssion 18 yo Hospitalization History Father [facility]- [facility]- ezequiel d facilty- tx of depression. 16-18yo Hospitalization History Hemorrhoidectomy with remova l of a mixed hemorrhoidal bundles at the left lateral and right anterior and posterior positions. 01/11/2016 Hospitalization History [facility]G: [facility] 11/11/16 Hospitalization History [facility] 11/21 Hospitalization History POST RIGHT HAND HAND AND ELBOW SURGE RY 10/2019 Hospitalization History [facility] ED- Post-op problem, left foot c ellulitis 08/03/2020 Goals Section No Information Health Concerns No Information MEDICAL EQUIPMENT No Information MENTAL STATUS No Information FUNCTIONAL STATUS No Information ASSESSMENTS Encounter Date Diagnosis Assessment Notes Treatment Notes Treatm ent Clinical Notes Sep, Intervertebral disc disorder with radiculopathy of lumbar region (ICD-10 - M51.16) PLAN OF TREATMENT Medication Medication Name Sig Start Date Stop Date Tizanidine HCl 4 MG 1 tablet as needed Orally Th ree times a day NEEDED FOR SEVERE PAIN for 30 Days Tramadol HCl 50 MG 1 tablet as needed Orally q6h prn mdd4 f or 30 Days Sep, Next Appt Details Provider Name:Lolis Choudhary, 2020-10-09 01:0 0:00 PM, [address] [place], [address], Insurance Providers Payer Name Payer Address Payer Phone Insured Name Patient Relati onship to Insured Coverage Start Date Coverage End Date [facility] [address] [facility] [address] [phone] DEANNA AN self
--- OUTSIDE RECORDS SUMMARY | 2020-11-19 14:50 | CCD ---
Author Author [facility] Organization [facility] Address Unknown Phone Unavailable Care Team Providers Care Student Outreach Coordinator Name Role Phone Lolis Choudhary Unavailable PROBLEMS Type Condition ICD9-CM Code JKG49-XF Code Onset Dates Condition S tatus SNOMED Code Notes Problem Allergic rhinitis J30.9 Active 35031293 Problem Coronary artery disease invo lving [place] coronary artery of [place] heart, angina presence unspecified I25.10 Active 1 925723370171 Problem Depression F32.9 Active 35948373 Problem Anxiety disorder, unspecified F41.9 Active 23 7945760 Problem Essential hypertension I10 Active 60221942 Problem Intervertebral disc disorder with radiculopathy of lumbar region M51.16 Active 64687561 Problem Obesity, unspecified E66.9 Active 84603094455 104 Problem Obstructive sleep apnea on CPAP G47.33 Active 61370534 Problem Obstructive sleep apnea (adult) (pediatric) G47.33 Active 93429768 Problem Granuloma annulare L92.0 Active 85016826 Problem Gastroesophageal reflux disease with esophagitis K 21.0 Active 154418355 Problem Melanocytic nevi of trunk D22.5 Active 495913 002 Problem Sebaceous hyperplasia L73.8 Active 285046518 Problem Spondylosis of lumbar region without myelopathy or radiculopathy M47.816 Active 157836249 Problem 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 Active 4825061 00 Problem Stage 3 chronic kidney disease N18.3 Active 4 56862278 Problem Celiac disease K90.0 Active 619739422 Problem Hyperlipidemia E78.5 Active 02250514 Problem CKD (chronic kidney disease), stage III N18.3 Active 597638589 Problem Hypothyroidism, unspecified type E03.9 Active 04551737 Problem Carpal tunnel syndrome of right wrist G56.01 Ac tive 38590679 Problem Bilateral serous otitis media, unspecified chronicity H65.93 Active 42486475 Problem Unspecified open wound of right buttock, subsequ ent encounter S31.819D Active 19401561165884019 Problem 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 Active 0985835 Problem Inflammation of both ear canals H60.93 Active 0672740 Problem Disc displacement, 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 Active 757196 285442203 Problem Seborrheic keratoses L82.1 Active 605225327 Problem Dysfunction of both eustachian tubes H69.83 Act forrest 36996565 Problem Spondylosis without myelopathy or radiculopathy, lumbosacral region M47.817 Active 61532853 Problem Wound of right buttock, initial encounter S31.819A Active 510945119 Problem Sacroiliitis M46.1 Active 70866154 ALLERGIES Allergen (clinical drug ingredient) Drug/Non Drug Allergy do cumented on EMR Reaction Allergy Type Onset Date Status Latex (for allergy use only) Rash Drug Allergy Active Adhesive Tape rash Drug Allergy Active Gluten allergy Rash Non Drug Allergy Acti ve Codeine Phosphate (For Allergies Use Only) Nausea/Vomiting Drug Allergy Active ENCOUNTERS from 1967 to 2020-09-12 Encounter Location Date Provider Diagnosis [address] [address] Sep, 2 020 [facility] IMMUNIZATIONS Vaccine Route Administration Date Status Influenza [...] Education Language: Question Answer Notes Languages spoken: Uruguayan Adventism: Question Answer Notes Adventism 05 Zoroastrian No baptist beliefs that would impact health care. Drug [...] 25 mg 1/2 tab Oral Daily Active [place] Nasal [place] 0.65 % 2 sprays in each nostril [...] for 28 Active Fish Oil + D3 0067-9567 MG-UNIT 1 capsule Orally BID OTC Unknown [...] Information RESULTS No Results REASON FOR VISIT 2014 Form MEDICAL (GENERAL) HISTORY Type Description Date Medical History Depression/Anxiety- Dr Enriquez. /therapist Q2 weeks Medical History Hyperlipidemia Medical History GERD with Barretts: Repeat EGD in 8 Medical History vitamin d def Medical History FRAN: following with Pulmonol ogy: compliant with CPAP-pulmonology Medical History CAD: Bypass with autologous vein: [facility]. Shelley munguia at [facility] Medical History ECHO 10/17/2016. Hypertensive heart disea [...] EGD- [facility] 02/02/15 Surgical History hemorrhoidectomy -- Surgical History left foot bunionectomy with first metatarsal osteostomy-Dr. Chand 03/31/16 Surgical History CABG- 4 vessel at [place] 11/11/16 Surgical History Left hand CP sx, and tendon removal. [facility] 01/2018 Surgical History Upper Endoscopic Ultrasound with Anesthe penelope 07/2018 Surgical History Wires removed from chest 09/29/2018 Surgical History Hammer toe, Left foot, Dr. Chand 03/30/19 Surgical History EGD-Dr. Duron 01/2019 Surgical History HammerToe 03/2019 Surgical History RIGHT HAND TRIGGER AND CARPEL TUNNEL 1-2 020 Surgical History R2ND TOE RGREAT TOE SURGERY 06/2020 Surgical History screw removal foot Hospitalization History [facility]- Depression/A nxiety 14 yo Hospitalization History [facility] [place]- depre ssion 18 yo Hospitalization History Father Verenice- [facility]- ezequiel d facilty- tx of depression. 16-18yo Hospitalization History Hemorrhoidectomy with remova l of a mixed hemorrhoidal bundles at the left lateral and right anterior and posterior positions. 01/11/2016 Hospitalization History CABG: [facility] 11/11/16 [facility] Hospitalization History POST RIGHT HAND HAND AND ELBOW SURGE RY 10/2019 Hospitalization History [facility]- Post-op problem, left foot c ellulitis [...] Name:Winifred Greco, 2020-10-08 10 :00:00 AM, [address] [place], [address], Provider Name:Lolis Choudhary, 2020-10-09 01:0 0:00 PM, [address] [place], [address], Insurance Providers Payer Name Payer Address Payer Phone Insured Name Patient Relati onship to Insured Coverage Start Date Coverage End Date [facility] [address] [facility] [phone] DEANNA AN self
--- OUTSIDE RECORDS SUMMARY | 2020-11-19 14:50 | CCD ---
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 Role Phone Lolis Choudhary Unavailable PROBLEMS Type Condition ICD9-CM Code [id number] Code Onset Dates Condition S tatus SNOMED Code Notes Problem Allergic rhinitis J30.9 Active 43640139 Problem Coronary artery disease invo lving [place] coronary artery of [place] heart, angina presence unspecified I25.10 Active 1 329995553024 Problem Depression F32.9 Active 16614190 Problem Anxiety disorder, unspecified F41.9 Active 23 5606540 Problem Essential hypertension I10 Active 80674937 Problem Intervertebral disc disorder with radiculopathy of lumbar region M51.16 Active 75455556 Problem Obesity, unspecified E66.9 Active 54749950912 104 Problem Obstructive sleep apnea on CPAP G47.33 Active 60470676 Problem Obstructive sleep apnea (adult) (pediatric) G47.33 Active 01396041 Problem Granuloma annulare L92.0 Active 02920679 Problem Gastroesophageal reflux disease with esophagitis K 21.0 Active 870893592 Problem Melanocytic nevi of trunk D22.5 Active 287915 002 Problem Sebaceous hyperplasia L73.8 Active 812373016 Problem Spondylosis of lumbar region without myelopathy or radiculopathy M47.816 Active 498022387 Problem 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 Active 1836286 00 Problem Stage 3 chronic kidney disease N18.3 Active 4 58714390 Problem Celiac disease K90.0 Active 367421130 Problem Hyperlipidemia E78.5 Active 80487730 Problem CKD (chronic kidney disease), stage III N18.3 Active 579541879 Problem Hypothyroidism, unspecified type E03.9 Active 84101723 Problem Carpal tunnel syndrome of right wrist G56.01 Ac tive 08389860 Problem Bilateral serous otitis media, unspecified chronicity H65.93 Active 97953342 Problem Unspecified open wound of right buttock, subsequ ent encounter S31.819D Active 09747112872610268 Problem 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 Active 0699649 Problem Inflammation of both ear canals H60.93 Active 9084444 Problem Disc displacement, 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 Active 435050 255116314 Problem Seborrheic keratoses L82.1 Active 675700611 Problem Dysfunction of both eustachian tubes H69.83 Act forrest 71644713 Problem Spondylosis without myelopathy or radiculopathy, lumbosacral region M47.817 Active 82572611 Problem Wound of right buttock, initial encounter S31.819A Active 776721975 Problem Sacroiliitis M46.1 Active 15058038 ALLERGIES Allergen (clinical drug ingredient) Drug/Non Drug Allergy do cumented on EMR Reaction Allergy Type Onset Date Status Latex (for allergy use only) Rash Drug Allergy Active Adhesive Tape rash Drug Allergy Active Gluten allergy Rash Non Drug Allergy Acti ve Codeine Phosphate (For Allergies Use Only) Nausea/Vomiting Drug Allergy Active ENCOUNTERS from 1967 to 2020-10-02 Encounter Location Date Provider Diagnosis [address] [address] Sep, 020 [facility] IMMUNIZATIONS Vaccine Route Administration Date Status [...] Education Language: Question Answer Notes Languages spoken: Bahraini Zoroastrian: Question Answer Notes Zoroastrian 05 Hoahaoism No spiritism beliefs that would impact health care. Drug [...] End Date Status Fish Oil + D3 5975-6070 MG-UNIT 1 capsule Orally BID OTC Unknown [...] TIMES DAILY AFTER MIKE LS Oral Unknown [place] Nasal [place] 0.65 % 2 sprays in each nostril [...] RESULTS No Results REASON FOR VISIT 2014 form MEDICAL (GENERAL) HISTORY Type Description Date Medical History Depression/Anxiety- Dr Enriquez. /therapist Q2 weeks Medical History Hyperlipidemia Medical History GERD with Barretts: Repeat EGD in 8 Medical History vitamin d def Medical History FRAN: following with Pulmonol ogy: compliant with CPAP-pulmonology Medical History CAD: Bypass with autologous vein: Dr. Shelley munguia at [facility] Medical History ECHO 10/17/2016. Hypertensive heart [...] EGD- [facility] 02/02/15 Surgical History hemorrhoidectomy 4--16 Surgical History left foot bunionectomy with first metatarsal osteostomy-Dr. Chand 03/31/16 Surgical History CABG- 4 vessel at [place] 11/11/16 Surgical History Left hand CP sx, and tendon removal. Bone and joint center [facility] 01/2018 Surgical History Upper Endoscopic Ultrasound [...] removal with bone filing 07/2020 Hospitalization History [facility]- Depression/A nxiety 14 yo Hospitalization History [facility]- Freddie- depre ssion 18 yo Hospitalization History Father Kel bowers facilty- tx of depression. [age]yo Hospitalization History Hemorrhoidectomy with remova l of a mixed hemorrhoidal bundles at the left lateral and right anterior and posterior positions. 01/11/2016 Hospitalization History CABG: [facility] 11/11/16 Hospitalization History Rehab [facility] 11/21 Hospitalization History POST RIGHT HAND HAND AND ELBOW SURGE RY 10/2019 Hospitalization History [facility] ED- Post-op problem, left foot c [...] Name:Lolis Choudhary, 2020-10-09 01:0 0:00 PM, [address] [place], [address], Insurance Providers Payer Name Payer Address Payer Phone Insured Name Patient Relati onship to Insured Coverage Start Date Coverage End Date FOR[facility]LY [facility] [address] [facility] [phone] [phone] DEANNA AN self
--- OUTSIDE RECORDS SUMMARY | 2020-11-19 14:50 | CCD ---
Author Author [facility] Organization [facility] Address Unknown Phone Unavailable Care Team Providers Care Hospitality Internship Name Role Phone Winifred Greco Unavailable PROBLEMS Type Condition ICD9-CM Code [id number] Code Onset Dates Condition S tatus SNOMED Code Notes Problem Allergic rhinitis J30.9 Active 16558652 Problem Coronary artery disease invo lving [place] coronary artery of [place] heart, angina presence unspecified I25.10 Active 1 602497535669 Problem Depression F32.9 Active 88660339 Problem Anxiety disorder, unspecified F41.9 Active 23 6712316 Problem Essential hypertension I10 Active 69694732 Problem Intervertebral disc disorder with radiculopathy of lumbar region M51.16 Active 77554518 Problem Obesity, unspecified E66.9 Active 73257239361 104 Problem Obstructive sleep apnea on CPAP G47.33 Active 44492919 Problem Obstructive sleep apnea (adult) (pediatric) G47.33 Active 80264923 Problem Granuloma annulare L92.0 Active 74137312 Problem Gastroesophageal reflux disease with esophagitis K 21.0 Active 214338819 Problem Melanocytic nevi of trunk D22.5 Active 223320 002 Problem Sebaceous hyperplasia L73.8 Active 438646922 Problem Spondylosis of lumbar region without myelopathy or radiculopathy M47.816 Active 231299582 Problem 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 Active 8187699 00 Problem Stage 3 chronic kidney disease N18.3 Active 4 94364735 Problem Celiac disease K90.0 Active 118637699 Problem Hyperlipidemia E78.5 Active 74353911 Problem CKD (chronic kidney disease), stage III N18.3 Active 195231020 Problem Hypothyroidism, unspecified type E03.9 Active 61730117 Problem Carpal tunnel syndrome of right wrist G56.01 Ac tive 23834474 Problem Bilateral serous otitis media, unspecified chronicity H65.93 Active 99501118 Problem Unspecified open wound of right buttock, subsequ ent encounter S31.819D Active 18400496436477238 Problem 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 Active 5966609 Problem Inflammation of both ear canals H60.93 Active 6473630 Problem Disc displacement, 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 Active 591571 391881406 Problem Seborrheic keratoses L82.1 Active 318799222 Problem Dysfunction of both eustachian tubes H69.83 Act forrest 34596039 Problem Spondylosis without myelopathy or radiculopathy, lumbosacral region M47.817 Active 31131958 Problem Wound of right buttock, initial encounter S31.819A Active 403552835 Problem Sacroiliitis M46.1 Active 51452825 ALLERGIES Allergen (clinical drug ingredient) Drug/Non Drug Allergy do cumented on EMR Reaction Allergy Type Onset Date Status Latex (for allergy use only) Rash Drug Allergy Active Adhesive Tape rash Drug Allergy Active Gluten allergy Rash Non Drug Allergy Acti ve Codeine Phosphate (For Allergies Use Only) Nausea/Vomiting Drug Allergy Active ENCOUNTERS from 1967 to 2020-09-25 Encounter Location Date Provider Diagnosis [facility] [address] [place] [id number] Sep, Winifred Greco Sacroiliitis M46.1 and Chronic prescript ion opiate use Z79.891 IMMUNIZATIONS Vaccine Route Administration Date Status Influenza [...] Education Language: Question Answer Notes Languages spoken: [place] Jain: Question Answer Notes Jain 05 Buddhism No anabaptist beliefs that would impact health care. Drug [...] FOR REFERRAL No Information VITAL SIGNS Weight 305.0 lbs Sep, Height 68 in Sep, BMI 46.37 kg/m2 Sep, Heart Rate 85 /min Sep, Respiratory Rate 18 /min Sep, Temperature 96.9 degrees Fahrenheit Sep, Oximetry 98% Sep, Blood pressure systolic 121 mm Hg Sep, Blood pressure diastolic 76 mm Hg Sep, MEDICATIONS Medication SIG (Take, Route, Frequency, Duration) Notes Start Da te End Date Status Fish Oil + D3 7228-1475 MG-UNIT 1 capsule Orally BID OTC Unknown [...] TIMES DAILY AFTER MIKE LS Oral Unknown [place] Nasal [place] 0.65 % 2 sprays in each nostril [...] Information RESULTS No Results REASON FOR VISIT left sacroiliac joint block evaluation MEDICAL (GENERAL) HISTORY Type Description Date Medical History Depression/Anxiety- Dr Enriquez. /therapist Q2 weeks Medical History Hyperlipidemia Medical History GERD with Barretts: Repeat EGD in 8 Medical History vitamin d def Medical History FRAN: following with Pulmonol ogy: compliant with CPAP-pulmonology Medical History CAD: Bypass with autologous vein: Dr. Shelley munguia at [facility] Medical History ECHO 10/17/2016. Hypertensive heart disea [...] 03/31/16 Surgical History CABG- 4 vessel at [place] 11/11/16 Surgical History Left hand CP sx, and tendon removal. Bone and joint center [facility] 01/2018 Surgical History Upper Endoscopic Ultrasound with [...] removal with bone filing 07/2020 Hospitalization History [facility] [place]- Depression/A nxiety 14 yo Hospitalization History [facility]- depre ssion 18 yo Hospitalization History Father Kel bowers facilty- tx of depression. [age]yo Hospitalization History Hemorrhoidectomy with remova l of a mixed hemorrhoidal bundles at the left lateral and right anterior and posterior positions. 01/11/2016 Hospitalization History CABG: [facility] 11/11/16 Hospitalization History [facility] 11/21 Hospitalization History POST RIGHT HAND HAND AND ELBOW SURGE RY 10/2019 Hospitalization History [facility] ED- Post-op problem, left foot c ellulitis 08/03/2020 Goals Section No Information Health Concerns No Information MEDICAL EQUIPMENT No Information MENTAL STATUS No Information FUNCTIONAL STATUS No Information ASSESSMENTS Encounter Date Diagnosis Assessment Notes Treatment Notes Treatm ent Clinical Notes Sep, Sacroiliitis (ICD-10 - M46.1) Left sacroiliac joint block , ISTOP registry reviewed and demonstrates complliance. Urine toxicology today , Risks of narcotic/opiod medications includes but is not limited to risk of dependance/development of addiction, mood disturbance and depression, osteoporosis, hormonal and labidal changes, respiratory depression and . Patient is advised NOT to DRIVE or drink ALCOHOL while on these medications , [facility] Narcotic agreement was reviewed/updated and signed today by the patient. See attached document for full details; Specific issues were reviewed: 1) Keep pain meds in their original bottles and any weekly planners are to be brought to the pain center at EVERY VISIT. 2) The patient is NOT to increase dosing or timing of their pain medication without specific direction of their Pain CenterProvider (not ER or other providers). 3) All pain meds are to be kept secured, in a locked box. 4) No pain meds are to be shared with any other person for any reason. 5) No pain meds may be taken from any friends or relatives for any reason 6) No meds or substances which are not legal are to be used- no marijuana, no cocaine, amphetamines, heroin, or others are ever to be used. 7)Urine testing is done to account for meds and substances being taken and will be done randomly.,Sacroiliac joint pain material was published to portal 09/24/2020 PATIENT GIVEN INFORMATION ON SACROILIAC JOINT INJECTION. REVIEWED PRE-PROCEDURE INSTRUCTIONS WITH PATIENT. PATIENT VERBALIZED AN UNDERSTANDING. David SANTIAGO RN Sep, Chronic prescription opiate use (ICD-10 - Z79.89 1) Sep, Other Patient Education was jina bowers PLAN OF TREATMENT Medication Medication Name Sig Start Date Stop Date Tizanidine HCl 4 MG 1 tablet as needed Orally Th ree times a day NEEDED FOR SEVERE PAIN for 30 Days Tramadol HCl 50 MG 1 tablet as needed Orally q6h prn mdd4 f or 30 Days Sep, Treatment Notes Assessment Notes Clinical Notes Sacroiliitis Left sacroiliac joint block, ISTOP registry reviewed and demonstrates complliance.Urine toxicology today, Risks of narcotic/opiod medications includes but is not limited to risk of dependance/development of addiction, mood disturbance and depression, osteoporosis, hormonal and labidal changes, respiratory depression and . Patient is advised NOT to DRIVE or drink ALCOHOL while on these medications, [facility] Narcotic agreement was reviewed/updated and signed today by the patient. See attached document for full details; Specific issues were reviewed: 1) Keep pain meds in their original bottles and any weekly planners are to be brought to the pain center at EVERY VISIT. 2) The patient is NOT to increase dosing or timing of their pain medication without specific direction of their Pain CenterProvider (not ER or other providers). 3) All pain meds are to be kept secured, in a locked box. 4) No pain meds are to be shared with any other person for any reason. 5) No pain meds may be taken from any friends or relatives for any reason 6) No meds or substances which are not legal are to be used- no marijuana, no cocaine, amphetamines, heroin, or others are ever to be used. 7)Urine testing is done to account for meds and substances being taken and will be done randomly.,Sacroiliac joint pain material was published to [id number]/24/2020 PATIENT GIVEN INFORMATION ON SACROILIAC JOINT INJECTION. REVIEWED PRE-PROCEDURE INSTRUCTIONS WITH PATIENT. PATIENT VERBALIZED AN UNDERSTANDING. David SANTIAGO RN Next Appt Details post procedure Reason:Left sacroiliac diya int block/review urine toxicology Provider Name:Lolis Choudhary, 2020-10-09 01:0 0:00 PM, [address] [place], [address], Follow Up:post procedureLeft sacroiliac joint block/review urine toxicology Insurance Providers Payer Name Payer Address Payer Phone Insured Name Patient Relati onship to Insured Coverage Start Date Coverage End Date [facility] [address] [facility] [address] DEANNA AN self
--- OUTSIDE RECORDS SUMMARY | 2020-11-19 14:50 | CCD ---
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 Role Phone Lolis Choudhary Unavailable PROBLEMS Type Condition ICD9-CM Code UGE83-PQ Code Onset Dates Condition S tatus SNOMED Code Notes Problem Allergic rhinitis J30.9 Active 27637929 Problem Coronary artery disease invo lving [place] coronary artery of [place] heart, angina presence unspecified I25.10 Active 1 572763269840 Problem Depression F32.9 Active 09300538 Problem Anxiety disorder, unspecified F41.9 Active 23 7505314 Problem Essential hypertension I10 Active 71756489 Problem Intervertebral disc disorder with radiculopathy of lumbar region M51.16 Active 25139711 Problem Obesity, unspecified E66.9 Active 58688379205 104 Problem Obstructive sleep apnea on CPAP G47.33 Active 53484440 Problem Obstructive sleep apnea (adult) (pediatric) G47.33 Active 23375771 Problem Granuloma annulare L92.0 Active 47241770 Problem Gastroesophageal reflux disease with esophagitis K 21.0 Active 811330257 Problem Melanocytic nevi of trunk D22.5 Active 912207 002 Problem Sebaceous hyperplasia L73.8 Active 162117579 Problem Spondylosis of lumbar region without myelopathy or radiculopathy M47.816 Active 715024491 Problem 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 Active 5620462 00 Problem Stage 3 chronic kidney disease N18.3 Active 4 66133083 Problem Celiac disease K90.0 Active 812256151 Problem Hyperlipidemia E78.5 Active 88983453 Problem CKD (chronic kidney disease), stage III N18.3 Active 299141865 Problem Hypothyroidism, unspecified type E03.9 Active 71000826 Problem Carpal tunnel syndrome of right wrist G56.01 Ac tive 24094776 Problem Bilateral serous otitis media, unspecified chronicity H65.93 Active 72386006 Problem Unspecified open wound of right buttock, subsequ ent encounter S31.819D Active 56136874295172745 Problem 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 Active 7124850 Problem Inflammation of both ear canals H60.93 Active 2043595 Problem Disc displacement, 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 Active 945756 207954377 Problem Seborrheic keratoses L82.1 Active 377841603 Problem Dysfunction of both eustachian tubes H69.83 Act forrest 47976296 Problem Spondylosis without myelopathy or radiculopathy, lumbosacral region M47.817 Active 85918661 Problem Wound of right buttock, initial encounter S31.819A Active 384666124 Problem Sacroiliitis M46.1 Active 56192739 ALLERGIES Allergen (clinical drug ingredient) Drug/Non Drug Allergy do cumented on EMR Reaction Allergy Type Onset Date Status Latex (for allergy use only) Rash Drug Allergy Active Adhesive Tape rash Drug Allergy Active Gluten allergy Rash Non Drug Allergy Acti ve Codeine Phosphate (For Allergies Use Only) Nausea/Vomiting Drug Allergy Active ENCOUNTERS from 1967 to 2020-10-03 Encounter Location Date Provider Diagnosis [address] [address] Sep, 020 [facility] IMMUNIZATIONS Vaccine Route Administration Date Status Influenza [...] Education Language: Question Answer Notes Languages spoken: Turkish Buddhism: Question Answer Notes Buddhism 05 Adventism No restoration beliefs that would impact health care. Drug [...] End Date Status Fish Oil + D3 7120-3498 MG-UNIT 1 capsule Orally BID OTC Unknown [...] TIMES DAILY AFTER MIKE LS Oral Unknown [place] Nasal [place] 0.65 % 2 sprays in each nostril [...] with autologous vein: Dr. Shelley munguia at [facility] Medical History ECHO 10/17/2016. Hypertensive heart disea [...] 03/31/16 Surgical History CABG- 4 vessel at [place] 11/11/16 Surgical History Left hand CP sx, and tendon removal. Bone and joint center [facility] 01/2018 Surgical History Upper Endoscopic Ultrasound with [...] removal with bone filing 07/[address] [facility]- Depression/A nxiety 14 yo Hospitalization History [facility]- Freddie- depre ssion 18 yo Hospitalization History Father Kel bowers facilty- tx of depression. 18-18yo Hospitalization History Hemorrhoidectomy with remova l of a mixed hemorrhoidal bundles at the left lateral and right anterior and posterior positions. 01/11/2016 Hospitalization History CABG: [facility] 11/11/16 Hospitalization History Rehab [facility] 11/21 Hospitalization History POST RIGHT HAND HAND AND ELBOW SURGE RY 10/2019 Hospitalization History [facility] ED- Post-op problem, left foot [...] Name:Lolis Choudhary, 2020-10-09 01:0 0:00 PM, [address] [place], [address], Insurance Providers Payer Name Payer Address Payer Phone Insured Name Patient Relati onship to Insured Coverage Start Date Coverage End Date [facility] [address] [facility] [id number] DEANNA AN self
--- OUTSIDE RECORDS SUMMARY | 2020-11-19 14:52 | CCD ---
Author Author [facility] Organization [facility] Address Unknown Phone Unavailable Care Team Providers Care Child Development Director Name Role Phone DRAZEK, I CATRACHITA PA Unavailable Unavailable DRAZEK, I CATRACHITA PA Unavailable Unavailable DRAZEK, I CATRACHITA PA Unavailable Unavailable DRAZEK, I CATRACHITA PA Unavailable Unavailable DRAZEK, I CATRACHITA PA Unavailable Unavailable DRAZEK, I CATRACHITA PA Unavailable Unavailable DRAZEK, I CATRACHITA PA Unavailable Unavailable DRAZEK, I CATRACHITA PA Unavailable Unavailable DRAZEK, I CATRACHITA PA Unavailable Unavailable DRAZEK, I CATRACHITA PA Unavailable Unavailable DRAZEK, I CATRACHITA PA Unavailable Unavailable DRAZEK, I CATRACHITA PA Unavailable Unavailable DRAZEK, I CATRACHITA PA Unavailable Unavailable DRAZEK, I CATRACHITA PA Unavailable Unavailable DRAZEK, I CATRACHITA PA Unavailable Unavailable DRAZEK, I CATRACHITA PA Unavailable Unavailable DRAZEK, I CATRACHITA PA Unavailable Unavailable DRAZEK, I CATRACHITA PA Unavailable Unavailable DRAZEK, I CATRACHITA PA Unavailable Unavailable DRAZEK, I CATRACHITA PA Unavailable Unavailable DRAZEK, I CATRACHITA PA Unavailable Unavailable DRAZEK, I CATRACHITA PA Unavailable Unavailable DRAZEK, I CATRACHITA PA Unavailable Unavailable DRAZEK, I CATRACHITA PA Unavailable Unavailable DRAZEK, I CATRACHITA PA Unavailable Unavailable DRAZEK, I CATRACHITA PA Unavailable Unavailable DRAZEK, I CATRACHITA PA Unavailable Unavailable DRAZEK, I CATRACHITA PA Unavailable Unavailable DRAZEK, I CATRACHITA PA Unavailable Unavailable DRAZEK, I CATRACHITA PA Unavailable Unavailable Nahun Cardenas MD Unavailable Unavailable Nahun Cardenas MD Unavailable Unavailable Nahun Cardenas MD Unavailable Unavailable Nahun Cardenas MD Unavailable Unavailable Nahun Cardenas MD Unavailable Unavailable Nahun Cardenas MD Unavailable Unavailable Nahun Cardenas MD Unavailable Unavailable Nahun Cardenas MD Unavailable Unavailable Nahun Cardenas MD Unavailable Unavailable Nahun Cardenas MD Unavailable Unavailable Nahun Cardenas MD Unavailable Unavailable Nahun Cardenas MD Unavailable Unavailable Nahun Cardenas MD Unavailable Unavailable Nahun Cardenas MD Unavailable Unavailable Nahun Cardenas MD Unavailable Unavailable Nahun Cardenas MD Unavailable Unavailable Nahun Cardenas MD Unavailable Unavailable Nahun Cardenas MD Unavailable Unavailable Nahun Cardenas MD Unavailable Unavailable Nahun Cardenas MD Unavailable Unavailable Nahun Cardenas MD Unavailable Unavailable Nahun Cardenas MD Unavailable Unavailable Nahun Cardenas MD Unavailable Unavailable Nahun Cardenas MD Unavailable Unavailable Nahun Cardenas MD Unavailable Unavailable Nahun Cardenas MD Unavailable Unavailable Nahun Cardenas MD Unavailable Unavailable Dinesh-Nahun Huff MD Unavailable Unavailable Dinesh-Nahun Huff MD Unavailable Unavailable Dinesh-Mahmod, Nahun SAVAGE Unavailable Unavailable Dinesh-Mahmod, Nahun SAVAGE Unavailable Unavailable Dinesh-Mahmod, Nahun SAVAGE Unavailable Unavailable Dinesh-Mahmod, Nahun SAVAGE Unavailable Unavailable Dinesh-Mahmod, Nahun SAVAGE Unavailable Unavailable Dinesh-Mahmod, Nahun SAVAGE Unavailable Unavailable Dinesh-Mahmod, Nahun SAVAGE Unavailable Unavailable Dinesh-Mahmod, Nahun SAVAGE Unavailable Unavailable Dinesh-Mahmod, Nahun SAVAGE Unavailable Unavailable Dinesh-Mahmod, Nahun SAVAGE Unavailable Unavailable Dinesh-Mahmod, Nahun SAVAGE Unavailable Unavailable Dinesh-Mahmod, Nahun SAVAGE Unavailable Unavailable Dinesh-Mahmod, Nahun SAVAGE Unavailable Unavailable Dinesh-Mahmod, Nahun SAVAGE Unavailable Unavailable Dinesh-Mahmod, Nahun SAVAGE Unavailable Unavailable Dinesh-Mahmod, Nahun SAVAGE Unavailable Unavailable Dinesh-Mahmod, Nahun SAVAGE Unavailable Unavailable Dinesh-Mahmod, Nahun SAVAGE Unavailable Unavailable Dinesh-Mahmod, Nahun SAVAGE Unavailable Unavailable Dinesh-Mahmod, Nahun SAVAGE Unavailable Unavailable Dinesh-Mahmod, Nahun SAVAGE Unavailable Unavailable Dinesh-Mahmod, Nahun SAVAGE Unavailable Unavailable Dinesh-Mahmod, Nahun SAVAGE Unavailable Unavailable Dinesh-Mahmod, Nahun SAVAGE Unavailable Unavailable Dinesh-Mahmod, Nahun SAVAGE Unavailable Unavailable Dinesh-Mahmod, Nahun SAVAGE Unavailable Unavailable Dinesh-Mahmod, Nahun SAVAGE Unavailable Unavailable Dinesh-Mahmod, Nahun SAVAGE Unavailable Unavailable Dinesh-Mahmod, Nahun SAVAGE Unavailable Unavailable Dinesh-Mahmod, Nahun SAVAGE Unavailable Unavailable Dinesh-Mahmod, Nahun SAVAGE Unavailable Unavailable Dinesh-Mahmod, Nahun SAVAGE Unavailable Unavailable Dinesh-Mahmod, Nahun SAVAGE Unavailable Unavailable Dinesh-Mahmod, Nahun SAVAGE Unavailable Unavailable Dinesh-Mahmod, Nahun SAVAGE Unavailable Unavailable Dinesh-Mahmod, Nahun SAVAGE Unavailable Unavailable Dinesh-Mahmod, Nahun SAVAGE Unavailable Unavailable Dinesh-Mahmod, Nahun SAVAGE Unavailable Unavailable Dinesh-Mahmod, Nahun SAVAGE Unavailable Unavailable Dinesh-Mahmod, Nahun SAVAGE Unavailable Unavailable Dinesh-Mahmod, Nahun SAVAGE Unavailable Unavailable Dinesh-Mahmod, Nahun SAVAGE Unavailable Unavailable Dinesh-Mahmod, Nahun SAVAGE Unavailable Unavailable Dinesh-Mahmod, Nahun SAVAGE Unavailable Unavailable Dinesh-Mahmod, Nahun SAVAGE Unavailable Unavailable Dinesh-Mahmod, Nahun SAVAGE Unavailable Unavailable Dinesh-Mahmod, Nahun SAVAGE Unavailable Unavailable Dinesh-Mahmod, Nahun SAVAGE Unavailable Unavailable Dinesh-Mahmod, Nahun SAVAGE Unavailable Unavailable Dinesh-Mahmod, Nahun SAVAGE Unavailable Unavailable Dinesh-Mahmod, Nahun SAVAGE Unavailable Unavailable Dinesh-Mahmod, Nahun SAVAGE Unavailable Unavailable Dinesh-Mahmod, Nahun SAVAGE Unavailable Unavailable Dinesh-Mahmod, Nahun SAVAGE Unavailable Unavailable Dinesh-Mahmod, Nahun SAVAGE Unavailable Unavailable Dinesh-Mahmod, Nahun SAVAGE Unavailable Unavailable Dinesh-Mahmod, Nahun SAVAGE Unavailable Unavailable Dinesh-Mahmod, Nahun SAVAGE Unavailable Unavailable Dinesh-Mahmod, Nahun SAVAGE Unavailable Unavailable Dinesh-Mahmod, Nahun SAVAGE Unavailable Unavailable Dinesh-Mahmod, Nahun SAVAGE Unavailable Unavailable Dinesh-Mahmod, Nahun SAVAGE Unavailable Unavailable Dinesh-Mahmod, Nahun SAVAGE Unavailable Unavailable Dinesh-Mahmod, Nahun SAVAGE Unavailable Unavailable Dinesh-Mahmod, Nahun SAVAGE Unavailable Unavailable Dinesh-Mahmod, Nahun SAVAGE Unavailable Unavailable Dinesh-Mahmod, Nahun SAVAGE Unavailable Unavailable Dinesh-Mahmod, Nahun SAVAGE Unavailable Unavailable Dinesh-Mahmod, Nahun SAVAGE Unavailable Unavailable Dinesh-Mahmod, Nahun SAVAGE Unavailable Unavailable Dinesh-Mahmod, Nahun SAVAGE Unavailable Unavailable Dinesh-Mahmod, Nahun SAVAGE Unavailable Unavailable Dinesh-Mahmod, Nahun SAVAGE Unavailable Unavailable Dinesh-Mahmod, Nahun SAVAGE Unavailable Unavailable Dinesh-Mahmod, Nahun SAVAGE Unavailable Unavailable Dinesh-Mahmod, Nahun SAVAGE Unavailable Unavailable DRAZEK, I CATRACHITA PA Unavailable Unavailable DRAZEK, I CATRACHITA PA Unavailable Unavailable DRAZEK, I CATRACHITA PA Unavailable Unavailable DRAZEK, I CATRACHITA PA Unavailable Unavailable DRAZEK, I CATRACHITA PA Unavailable Unavailable DRAZEK, I CATRACHITA PA Unavailable Unavailable DRAZEK, I CATRACHITA PA Unavailable Unavailable DRAZEK, I CATRACHITA PA Unavailable Unavailable DRAZEK, I CATRACHITA PA Unavailable Unavailable DRAZEK, I CATRACHITA PA Unavailable Unavailable DRAZEK, I CATRACHITA PA Unavailable Unavailable DRAZEK, I CATRACHITA PA Unavailable Unavailable DRAZEK, I CATRACHITA PA Unavailable Unavailable DRAZEK, I CATRACHITA PA Unavailable Unavailable DRAZEK, I CATRACHITA PA Unavailable Unavailable DRAZEK, I CATRACHITA PA Unavailable Unavailable DRAZEK, I CATRACHITA PA Unavailable Unavailable DRAZEK, I CATRACHITA PA Unavailable Unavailable DRAZEK, I CATRACHITA PA Unavailable Unavailable DRAZEK, I CATRACHITA PA Unavailable Unavailable DRAZEK, I CATRACHITA PA Unavailable Unavailable DRAZEK, I CATRACHITA PA Unavailable Unavailable DRAZEK, I CATRACHITA PA Unavailable Unavailable DRAZEK, I CATRACHITA PA Unavailable Unavailable DRAZEK, I CATRACHITA PA Unavailable Unavailable DRAZEK, I CATRACHITA PA Unavailable Unavailable DRAZEK, I CATRACHITA PA Unavailable Unavailable DRAZEK, I CATRACHITA PA Unavailable Unavailable DRAZEK, I CATRACHITA PA Unavailable Unavailable DRAZEK, I CATRACHITA PA Unavailable Unavailable Daniel Scales MD Unavailable Unavailable Daniel Scales MD Unavailable Unavailable Daniel Scales MD Unavailable Unavailable Daniel Scales MD Unavailable Unavailable Daniel Scales MD Unavailable Unavailable Daniel Scales MD Unavailable Unavailable Daniel Scales MD Unavailable Unavailable Daniel Scales MD Unavailable Unavailable Daniel Scales MD Unavailable Unavailable Daniel Scales MD Unavailable Unavailable Daniel Scales MD Unavailable Unavailable Daniel Scales MD Unavailable Unavailable Daniel Scales MD Unavailable Unavailable Daniel Scales MD Unavailable Unavailable Daniel Scales MD Unavailable Unavailable Daniel Scales MD Unavailable Unavailable Daniel Scales MD Unavailable Unavailable Daniel Scales MD Unavailable Unavailable Daniel Scales MD Unavailable Unavailable Daniel Scales MD Unavailable Unavailable Daniel Scales MD Unavailable Unavailable Daniel Scales MD Unavailable Unavailable Daniel Scales MD Unavailable Unavailable Daniel Scales MD Unavailable Unavailable Daniel Scales MD Unavailable Unavailable Daniel Scales MD Unavailable Unavailable REMINGTON, TANESHA PA Unavailable Unavailable REMINGTON, TANESHA PA Unavailable Unavailable REMINGTON, TANESHA PA Unavailable Unavailable REMINGTON, TANESHA PA Unavailable Unavailable REMINGTON, TANESHA PA Unavailable Unavailable REMINGTON, TANESHA PA Unavailable Unavailable REMINGTON, TANESHA PA Unavailable Unavailable REMINGTON, TANESHA PA Unavailable Unavailable REMINGTON, TANESHA PA Unavailable Unavailable REMINGTON, TANESHA PA Unavailable Unavailable REMINGTON, TANESHA PA Unavailable Unavailable REMINGTON, TANESHA PA Unavailable Unavailable REMINGTON, TANESHA PA Unavailable Unavailable REMINGTON, TANESHA PA Unavailable Unavailable REMINGTON, TANESHA PA Unavailable Unavailable REMINGTON, TANESHA PA Unavailable Unavailable REMINGTON, TANESHA PA Unavailable Unavailable REMINGTON, TANESHA PA Unavailable Unavailable REMINGTON, TANESHA PA Unavailable Unavailable REMINGTON, TANESHA PA Unavailable Unavailable REMINGTON, TANESHA PA Unavailable Unavailable REMINGTON, TANESHA PA Unavailable Unavailable REMINGTON, TANESHA PA Unavailable Unavailable REMINGTON, TANESHA PA Unavailable Unavailable REMINGTON, TANESHA PA Unavailable Unavailable REMINGTON, TANESHA PA Unavailable Unavailable REMINGTON, TANESHA PA Unavailable Unavailable REMINGTON, TANESHA PA Unavailable Unavailable REMINGTON, TANESHA PA Unavailable Unavailable REMINGTON, TANESHA PA Unavailable Unavailable REMINGTON, TANESHA PA Unavailable Unavailable REMINGTON, TANESHA PA Unavailable Unavailable REMINGTON, TANESHA PA Unavailable Unavailable REMINGTON, TANESHA PA Unavailable Unavailable REMINGTON, TANESHA PA Unavailable Unavailable REMINGTON, TANESHA PA Unavailable Unavailable REMINGTON, TANESHA PA Unavailable Unavailable REMINGTON, TANESHA PA Unavailable Unavailable Doremus, E Kaleigh PA Unavailable Unavailable Doremus, E Kaleigh PA Unavailable Unavailable Doremus, E Kaleigh PA Unavailable Unavailable Doremus, E Kaleigh PA Unavailable Unavailable Doremus, E Kaleigh PA Unavailable Unavailable Doremus, E Kaleigh PA Unavailable Unavailable Doremus, E Kaleigh PA Unavailable Unavailable Doremus, E Kaleigh PA Unavailable Unavailable Doremus, E Kaleigh PA Unavailable Unavailable Doremus, E Kaleigh PA Unavailable Unavailable Doremus, E Kaleigh PA Unavailable Unavailable Doremus, E Kaleigh PA Unavailable Unavailable Doremus, E Kaleigh PA Unavailable Unavailable Doremus, E Kaleigh PA Unavailable Unavailable Doremus, E Kaleigh PA Unavailable Unavailable Doremus, E Kaleigh PA Unavailable Unavailable Doremus, E Kaleigh PA Unavailable Unavailable Doremus, E Kaleigh PA Unavailable Unavailable Doremus, E Kaleigh PA Unavailable Unavailable CHOUDHARY, H LOLIS GAS TORCH BRAZIER Unavailable Unavailable CHOUDHARY, H LOLIS GAS TORCH BRAZIER Unavailable Unavailable CHOUDHARY, H LOLIS GAS TORCH BRAZIER Unavailable Unavailable CHOUDHARY, H LOLIS GAS TORCH BRAZIER Unavailable Unavailable CHOUDHARY, H LOLIS GAS TORCH BRAZIER Unavailable Unavailable CHOUDHARY, H LOLIS GAS TORCH BRAZIER Unavailable Unavailable CHOUDHARY, H LOLIS GAS TORCH BRAZIER Unavailable Unavailable CHOUDHARY, H LOLIS GAS TORCH BRAZIER Unavailable Unavailable CHOUDHARY, H LOLIS GAS TORCH BRAZIER Unavailable Unavailable CHOUDHARY, H LOLIS GAS TORCH BRAZIER Unavailable Unavailable CHOUDHARY, H LOLIS GAS TORCH BRAZIER Unavailable Unavailable CHOUDHARY, H LOLIS GAS TORCH BRAZIER Unavailable Unavailable CHOUDHARY, H LOLIS GAS TORCH BRAZIER Unavailable Unavailable CHOUDHARY, H LOLIS GAS TORCH BRAZIER Unavailable Unavailable CHOUDHARY, H LOLIS GAS TORCH BRAZIER Unavailable Unavailable CHOUDHARY, H LOLIS GAS TORCH BRAZIER Unavailable Unavailable CHOUDHARY, H LOLIS GAS TORCH BRAZIER Unavailable Unavailable CHOUDHARY, H LOLIS GAS TORCH BRAZIER Unavailable Unavailable CHOUDHARY, H LOLIS GAS TORCH BRAZIER Unavailable Unavailable CHOUDHARY, H LOLIS GAS TORCH BRAZIER Unavailable Unavailable CHOUDHARY, H LOLIS GAS TORCH BRAZIER Unavailable Unavailable CHOUDHARY, H LOLIS GAS TORCH BRAZIER Unavailable Unavailable CHOUDHARY, H LOLIS GAS TORCH BRAZIER Unavailable Unavailable CHOUDHARY, H LOLIS GAS TORCH BRAZIER Unavailable Unavailable CHOUDHARY, H LOLIS GAS TORCH BRAZIER Unavailable Unavailable CHOUDHARY, H LOLIS GAS TORCH BRAZIER Unavailable Unavailable CHOUDHARY, H LOLIS GAS TORCH BRAZIER Unavailable Unavailable CHOUDHARY, H LOLIS GAS TORCH BRAZIER Unavailable Unavailable CHOUDHARY, H LOLIS GAS TORCH BRAZIER Unavailable Unavailable CHOUDHARY, H LOLIS GAS TORCH BRAZIER Unavailable Unavailable CHOUDHARY, H LOLIS GAS TORCH BRAZIER Unavailable Unavailable CHOUDHARY, H LOLIS GAS TORCH BRAZIER Unavailable Unavailable CHOUDHARY, H LOLIS GAS TORCH BRAZIER Unavailable Unavailable CHOUDHARY, H LOLIS GAS TORCH BRAZIER Unavailable Unavailable CHOUDHARY, H LOLIS GAS TORCH BRAZIER Unavailable Unavailable CHOUDHARY, H LOLIS GAS TORCH BRAZIER Unavailable Unavailable CHOUDHARY, H LOLIS GAS TORCH BRAZIER Unavailable Unavailable CHOUDHARY, H LOLIS GAS TORCH BRAZIER Unavailable Unavailable CHOUDHARY, H LOLIS GAS TORCH BRAZIER Unavailable Unavailable CHOUDHARY, H LOLIS GAS TORCH BRAZIER Unavailable Unavailable CHOUDHARY, H LOLIS GAS TORCH BRAZIER Unavailable Unavailable CHOUDHARY, H LOLIS GAS TORCH BRAZIER Unavailable Unavailable CHOUDHARY, H LOLIS GAS TORCH BRAZIER Unavailable Unavailable CHOUDHARY, H LOLIS GAS TORCH BRAZIER Unavailable Unavailable CHOUDHARY, H LOLIS GAS TORCH BRAZIER Unavailable Unavailable CHOUDHARY, H LOLIS GAS TORCH BRAZIER Unavailable Unavailable CHOUDHARY, H LOLIS GAS TORCH BRAZIER Unavailable Unavailable CHOUDHARY, H LOLIS GAS TORCH BRAZIER Unavailable Unavailable CHOUDHARY, H LOLIS GAS TORCH BRAZIER Unavailable Unavailable CHOUDHARY, H LOLIS GAS TORCH BRAZIER Unavailable Unavailable CHOUDHARY, H LOLIS GAS TORCH BRAZIER Unavailable Unavailable CHOUDHARY, H LOLIS GAS TORCH BRAZIER Unavailable Unavailable CHOUDHARY, H LOLIS GAS TORCH BRAZIER Unavailable Unavailable CHOUDHARY, H LOLIS GAS TORCH BRAZIER Unavailable Unavailable CHOUDHARY, H LOLIS GAS TORCH BRAZIER Unavailable Unavailable Marely IRIZARRY DPM Unavailable Unavailable Marely IRIZARRY DPM Unavailable Unavailable MAJAK, R ITZEL DPM Unavailable Unavailable MAJAK, R ITZEL DPM Unavailable Unavailable MAJAK, R ITZEL DPM Unavailable Unavailable MAJAK, R ITZEL DPM Unavailable Unavailable MAJAK, R ITZEL DPM Unavailable Unavailable MAJAK, R ITZEL DPM Unavailable Unavailable MAJAK, R ITZEL DPM Unavailable Unavailable MAJAK, R ITZEL DPM Unavailable Unavailable MAJAK, R ITZEL DPM Unavailable Unavailable MAJAK, R ITZEL DPM Unavailable Unavailable MAJAK, R ITZEL DPM Unavailable Unavailable MAJAK, R ITZEL DPM Unavailable Unavailable MAJAK, R ITZEL DPM Unavailable Unavailable MAJAK, R ITZEL DPM Unavailable Unavailable MAJAK, R ITZEL DPM Unavailable Unavailable MAJAK, R ITZEL DPM Unavailable Unavailable MAJAK, R ITZEL DPM Unavailable Unavailable MAJAK, R ITZEL DPM Unavailable Unavailable MAJAK, R ITZEL DPM Unavailable Unavailable MAJAK, R ITZEL DPM Unavailable Unavailable MAJAK, R ITZEL DPM Unavailable Unavailable MAJAK, R ITZEL DPM Unavailable Unavailable MAJAK, R ITZEL DPM Unavailable Unavailable MAJAK, R ITZEL DPM Unavailable Unavailable MAJAK, R ITZEL DPM Unavailable Unavailable MAJAK, R ITZEL DPM Unavailable Unavailable MAJAK, R ITZEL DPM Unavailable Unavailable MAJAK, R ITZEL DPM Unavailable Unavailable Daniel Sacles MD Unavailable Unavailable Daniel Scales MD Unavailable Unavailable Daniel Scales MD Unavailable Unavailable Daniel Scales MD Unavailable Unavailable Daniel Scales MD Unavailable Unavailable Daniel Scales MD Unavailable Unavailable Daniel Scales MD Unavailable Unavailable Daniel Scales MD Unavailable Unavailable Daniel Scales MD Unavailable Unavailable Daniel Scales MD Unavailable Unavailable Daniel Scales MD Unavailable Unavailable Daniel Scales MD Unavailable Unavailable Daniel Scales MD Unavailable Unavailable Daniel Scales MD Unavailable Unavailable Daniel Scales MD Unavailable Unavailable Daniel Scales MD Unavailable Unavailable Daniel Scales MD Unavailable Unavailable Daniel Scales MD Unavailable Unavailable Daniel Scales MD Unavailable Unavailable Daniel Scales MD Unavailable Unavailable Daniel Scales MD Unavailable Unavailable Daniel Scales MD Unavailable Unavailable Daniel Scales MD Unavailable Unavailable Daniel Scales MD Unavailable Unavailable Daniel Scales MD Unavailable Unavailable Daniel Scales MD Unavailable Unavailable Swatsworth, A Sen PA Unavailable Unavailable Swatsworth, A Sen PA Unavailable Unavailable Swatsworth, A Sen PA Unavailable Unavailable Swatsworth, A Sen PA Unavailable Unavailable Swatsworth, A Sen PA Unavailable Unavailable Swatsworth, A Sen PA Unavailable Unavailable Swatsworth, A Sen PA Unavailable Unavailable Swatsworth, A Sen PA Unavailable Unavailable Swatsworth, A Sen PA Unavailable Unavailable Swatsworth, A Sen PA Unavailable Unavailable Swatsworth, A Sen PA Unavailable Unavailable Swatsworth, A Sen PA Unavailable Unavailable Swatsworth, A Sen PA Unavailable Unavailable Swatsworth, A Sen PA Unavailable Unavailable Mollison, Renate Griffin MD Unavailable Unavailable Mollison, Renate Griffin MD Unavailable Unavailable Mollison, Renate Griffin MD Unavailable Unavailable Mollison, Renate Griffin MD Unavailable Unavailable Mollison, Renate Griffin MD Unavailable Unavailable Mollison, Renate Griffin MD Unavailable Unavailable Mollison, Renate Griffin MD Unavailable Unavailable Mollison, Renate Griffin MD Unavailable Unavailable Mollison, Renate Griffin MD Unavailable Unavailable Mollison, Renate Griffin MD Unavailable Unavailable Mollison, Renate Griffin MD Unavailable Unavailable Mollison, Renate Griffin MD Unavailable Unavailable Mollison, Renate Griffin MD Unavailable Unavailable Mollison, Renate Griffin MD Unavailable Unavailable Mollison, Renate Griffin MD Unavailable Unavailable Mollison, Renate Griffin MD Unavailable Unavailable Mollison, Renate Griffin MD Unavailable Unavailable Mollison, Renate Griffin MD Unavailable Unavailable Mollison, Renate Griffin MD Unavailable Unavailable Mollison, Renate Griffin MD Unavailable Unavailable Mollison, Renate Griffin MD Unavailable Unavailable Mollison, Renate Griffin MD Unavailable Unavailable Mollison, Renate Griffin MD Unavailable Unavailable YVETTE VALENCIA MD Unavailable Unavailable YVETTE VALENCIA MD Unavailable Unavailable YVETTE VALENCIA MD Unavailable Unavailable YVETTE VALENCIA MD Unavailable Unavailable YVETTE VALENCIA MD Unavailable Unavailable YVETTE VALENCIA MD Unavailable Unavailable YVETTE VALENCIA MD Unavailable Unavailable YVETTE VALENCIA MD Unavailable Unavailable VYETTE VALENCIA MD Unavailable Unavailable YVETTE VALENCIA MD Unavailable Unavailable YVETTE VALENCIA MD Unavailable Unavailable YVETTE VALENCIA MD Unavailable Unavailable YVETTE VALENCIA MD Unavailable Unavailable YVETTE VALENCIA MD Unavailable Unavailable YVETTE VALENCIA MD Unavailable Unavailable YVETTE VALENCIA MD Unavailable Unavailable YVETTE VALENCIA MD Unavailable Unavailable YVETTE VALENCIA MD Unavailable Unavailable YVETTE VALENCIA MD Unavailable Unavailable YVETTE VALENCIA MD Unavailable Unavailable YVETTE VALENCIA MD Unavailable Unavailable ANNIEYVETTE MD Unavailable Unavailable ANNIEYVETTE MD Unavailable Unavailable ANNIEYVETTE MD Unavailable Unavailable ANNIE, YVETTE SAVAGE Unavailable Unavailable ANNIE, YVETTE SAVAGE Unavailable Unavailable ANNIE, YVETTE SAVAGE Unavailable Unavailable ANNIE, YVETTE SAVAGE Unavailable Unavailable ANNIE, YVETTE SAVAGE Unavailable Unavailable ANNIE, YVETTE MD Unavailable Unavailable ANNIE, CRAWFORD MD Unavailable Unavailable ANNIE, CRAWFORD MD Unavailable Unavailable ANNIE, CRAWFORD MD Unavailable Unavailable ANNIE, CRAWFORD MD Unavailable Unavailable ANNIE, CRAWFORD MD Unavailable Unavailable ANNIE, CRAWFORD MD Unavailable Unavailable ANNIE, CRAWFORD MD Unavailable Unavailable ANNIE, YVETTE MD Unavailable Unavailable ANNIE, CRAWFORD MD Unavailable Unavailable ANNIE, YVETTE SAVAGE Unavailable Unavailable ANNIE, YVETTE MD Unavailable Unavailable ANNIE, YVETTE MD Unavailable Unavailable ANNIE, YVETTE MD Unavailable Unavailable ANNIE, YVETTE MD Unavailable Unavailable ANNIE, YVETTE MD Unavailable Unavailable ANNIE, YVETTE MD Unavailable Unavailable ANNIE, YVETTE MD Unavailable Unavailable ANNIE, YVETTE MD Unavailable Unavailable ANNIE, YVETTE MD Unavailable Unavailable ANNIE, YVETTE MD Unavailable Unavailable ANNIE, YVETTE MD Unavailable Unavailable ANNIE, YVETTE MD Unavailable Unavailable ANNIE, YVETTE MD Unavailable Unavailable ANNIE, CRAWFORD MD Unavailable Unavailable Ilene, Arianne MD Unavailable Unavailable Ilene, Arianne MD Unavailable Unavailable Ilene, Arianne MD Unavailable Unavailable Ilene, Arianne MD Unavailable Unavailable Ilene, Arianne MD Unavailable Unavailable Ilene, Arianne MD Unavailable Unavailable Ilene, Arianne MD Unavailable Unavailable Ilene, Arianne MD Unavailable Unavailable Ilene, Arianne MD Unavailable Unavailable Ilene, Arianne MD Unavailable Unavailable Ilene, Arianne MD Unavailable Unavailable Ilene, Arianne MD Unavailable Unavailable Ilene, Arianne MD Unavailable Unavailable Ilene, Arianne MD Unavailable Unavailable Ilene, Arianne MD Unavailable Unavailable Ilene, Arianne MD Unavailable Unavailable Ilene, Arianne MD Unavailable Unavailable Ilene, Arianne MD Unavailable Unavailable Ilene, Arianne MD Unavailable Unavailable Ilene, Arianne MD Unavailable Unavailable Ilene, Arianne MD Unavailable Unavailable Ilene, Arianne MD Unavailable Unavailable Ilene, Arianne MD Unavailable Unavailable Ilene, Arianne MD Unavailable Unavailable Ilene, Arianne MD Unavailable Unavailable Ilene, Arianne MD Unavailable Unavailable Ilene, Arianne MD Unavailable Unavailable Ilene, Arianne MD Unavailable Unavailable Ilene, Arianne MD Unavailable Unavailable Ilene, Arianne MD Unavailable Unavailable Ilene, Arianne MD Unavailable Unavailable Ilene, Arianne MD Unavailable Unavailable Ilene, Arianne MD Unavailable Unavailable Ilene, Arianne MD Unavailable Unavailable Ilene, Arianne MD Unavailable Unavailable Ilene, Arianne MD Unavailable Unavailable Ilene, Arianne MD Unavailable Unavailable Ilene, Arianne MD Unavailable Unavailable Ilene, Arianne MD Unavailable Unavailable Ilene, Arianne MD Unavailable Unavailable Re-disclosure Warning The records that you are about to access may contain information from federally-assisted alcohol or drug abuse programs. If such information is present, then the following federally mandated warning applies: This information has been disclosed to you from records protected by federal confidentiality rules (42 CFR part 2). The federal rules prohibit you from making any further disclosure of this information unless further disclosure is expressly permitted by the written consent of the person to whom it pertains or as otherwise permitted by 42 CFR part 2. A general authorization for the release of medical or other information is NOT sufficient for this purpose. The Federal rules restrict any use of the information to criminally investigate or prosecute any alcohol or drug abuse patient.The records that you are about to access may contain highly sensitive health information, the redisclosure of which is protected by Article 27-F of the [facility] Public Health law. If you continue you may have access to information: Regarding HIV / AIDS; Provided by facilities licensed or operated by the [facility] Office of Mental Health; or Provided by the [facility] Office for People With Developmental Disabilities. If such information is present, then the following [facility] mandated warning applies: This information has been disclosed to you from confidential records which are protected by state law. State law prohibits you from making any further disclosure of this information without the specific written consent of the person to whom it pertains, or as otherwise permitted by law. Any unauthorized further disclosure in violation of state law may result in a fine or custodial sentence or both. A general authorization for the release of medical or other information is NOT sufficient authorization for further disc losure. Allergies and Adverse Reactions Type Description Substance Reaction Status Data Source(s ) Drug allergy Codeine Phosphate (For Allergies Use Only) Drug allergy Nausea/Vomiting Active eCW1 ([facility]) Adhesive Tape Adhesive Tape Adhesive Tape rash Active eCW1 ([facility]) Gluten allergy Gluten allergy Gluten allergy Rash Active eC W1 ([facility]) Latex (for allergy use only) Latex (for allergy use only) La omero (for allergy use only) Rash Active [facility] Adhesive Tape Adhesive Tape Adhesive Tape rash Active eCW1 ([facility]) Gluten allergy Gluten allergy Gluten allergy Rash Active eC W1 ([facility]) Latex (for allergy use only) Latex (for allergy use only) [place] (for allergy use only) Rash Active eCW1 ([facility]) Adhesive Tape Adhesive Tape Adhesive Tape rash Active eCW1 ([facility]) Gluten allergy Gluten allergy Gluten allergy Rash Active eC W1 ([facility]) Latex (for allergy use only) Latex (for allergy use only) [place] (for allergy use only) Rash Active eCW1 [facility]) Adhesive Tape Adhesive Tape Adhesive Tape rash Active eCW1 ([facility]) Gluten allergy Gluten allergy Gluten allergy Rash Active eC W1 ([facility]) Latex (for allergy use only) Latex (for allergy use only) [place] (for allergy use only) Rash Active eCW1 [facility]) Adhesive Tape Adhesive Tape Adhesive Tape rash Active eCW1 ([facility]) Gluten allergy Gluten allergy Gluten allergy Rash Active eC W1 ([facility]) Latex (for allergy use only) Latex (for allergy use only) [place] (for allergy use only) Rash Active eCW1 [facility]) Family History Family Member Name Family Member Gender Family Member Status Date o f Status Description Data Source(s) Unknown Unknown Problem MEDENT ([facility]) Encounters Encounter Providers Location Date Indications Data Source(s ) Office Visit Attender: TANESHA crow 11/17/2020 08:35:00 AM EST MEDENT ([facility]) Unknown [address] [facility] [place] [address] 11/09/2020 12:00:00 AM EST eCW1 ([facility]) Unknown [address] [facility] [place] [address] 10/30/2020 12:00:00 AM EST eCW1 ([facility]) [place]patient [address] [address] 10/09/2020 12:00:00 AM EST eCW1 ([facility]) [place] [address] [address] 10/02/2020 12:00:00 AM EST eCW1 ([facility]) [place] [address] [address] 09/24/2020 12:00:00 AM EST eCW1 ([facility]) Outpatient [address] [address] 09/24/2020 12:00:00 AM EST eCW1 ([facility]) [place] [address] [address] 09/21/2020 12:00:00 AM EST eCW1 ([facility]) Unknown [address] [address] 09/21/2020 12:00:00 AM EST eCW1 ([facility]) [place] [address] [address] 09/11/2020 12:00:00 AM EST eCW1 ([facility]) [place] [address] [address] 09/10/2020 12:00:00 AM EST eCW1 ([facility]) [place] [address] [address] 09/06/2020 12:00:00 AM EST eCW1 ([facility]) [place] [address] [address] 09/06/2020 12:00:00 AM EST eCW1 ([facility]) Office Visit Attender: ITZEL IRIZARRY [facility] Office 11/2019 09:30:00 AM EST MEDENT ([facility] [place] [address] [address] 09/03/2020 12:00:00 AM EST eCW1 ([facility]) Unknown [address] Y [address] 08/23/2020 12:00:00 AM EST eCW1 ([facility]) Unknown [address] [facility] [address] 08/20/2020 12:00:00 AM EST eCW1 ([facility]) Office Visit Attender: ITZEL IRIZARRY [facility] Office 08/05 01:30:00 PM EST MEDENT ([facility] Unknown [address] [facility] [address] 08/13/2020 12:00:00 AM EST eCW1 ([facility]) Unknown [address] [facility] [address] 08/09/2020 12:00:00 AM EST eCW1 ([facility]) (WNKristyn YOON) Stretcher Required Patients [address] [place] [address] 08/09/2020 12:00:00 AM EST eCW1 ([facility]) Unknown [address] [facility] [address] 08/08/2020 12:00:00 AM EST eCW1 ([facility]) Outpatient [address] [facility] [address] 08/08/2020 12:00:00 AM EST eCW1 ([facility]) Unknown [address] [facility] [address] 08/08/2020 12:00:00 AM EST eCW1 ([facility]) Outpatient [address] [facility] [address] 08/07/2020 12:00:00 AM EST eCW1 ([facility]) Unknown [address] [facility] [address] 08/07/2020 12:00:00 AM EST eCW1 ([facility]) Office Visit Attender: ITZEL IRIZARRY [facility] Office 11/2019 02:00:00 PM EST MEDENT ([facility] Unknown [address] [facility] [address] 08/06/2020 12:00:00 AM EST eCW1 ([facility]) (WND STRTCH) Stretcher Required Patients [address] [place] [address] 07/26/2020 12:00:00 AM EDT eCW1 ([facility]) Office Visit Attender: ITZEL IRIZARRY [facility] Office 07/05 08:45:00 AM EDT MEDENT ([facility] Outpatient [address] [facility] [address] 07/17/2020 12:00:00 AM EDT eCW1 ([facility]) Office Visit Attender: TANESHA Segura ry 07/14/2020 11:10:00 AM EDT MEDENT ([facility]) Unknown [address] [facility] [address] 07/10/2020 12:00:00 AM EDT eCW1 ([facility]) Outpatient Attender: YVETTE VALENCIA MDReferrer: YVETTE SANTILLAN .CT-YADIRAP 07/03/2020 11:53:21 AM EDT [facility] Outpatient JOYCE.KENDRA 06/29/2020 12:00:00 AM EDT [facility] Office Visit Attender: ITZEL IRIZARRY [facility] Office 12/2019 02:45:00 PM EDT MEDENT ([facility] Office Visit Attender: ITZEL IRIZARRY [facility] [place] [facility] 05/06 03:15:00 PM EDT MEDENT ([facility] Outpatient Attender: YVETTE ADAMSKENDRA-JACQUE.KENDRA 05/25/2020 01:45:13 PM EDT [facility] Outpatient Attender: TANESHA crow 04/30/2020 01:15:00 PM EDT MEDENT ([facility]) [facility] 02:30:00 PM EDT MEDENT ([facility] Unknown [address], [facility] [address] 04/25/2020 12:00:00 AM EDT eCW1 ([facility]) Outpatient [address] [facility] [address] 04/24/2020 12:00:00 AM EDT eCW1 ([facility]) Unknown [address], [facility] [address] 04/18/2020 12:00:00 AM EDT eCW1 ([facility]) [place]patient [address] [address] 04/17/2020 12:00:00 AM EDT eCW1 ([facility]) Outpatient Attender: Arianne Odom MD 04/16/2020 12:00:00 [facility] Outpatient Attender: ITZEL IRIZARRY [facility] Office 06/2020 08:30:00 AM EDT MEDENT ([facility] [place] [address], [facility] [address] 04/11/2020 12:00:00 AM EDT eCW1 ([facility]) Outpatient Attender: ITZEL IRIZARRY [facility] Office 03/07 01:15:00 PM EDT MEDENT ([facility] Emergency Attender: Sen Major PAConsultant: LOLIS Lopez NP 03/27/2020 04:32:00 PM EDT - 03/27/2020 07:47:00 PM EDT [facility] Patient discharged. [place] [address] [address] 03/26/2020 12:00:00 AM EDT eCW1 ([facility]) [place] [address] [address] 03/22/2020 12:00:00 AM EDT eCW1 ([facility]) Outpatient Attender: Elias Purcell/Giovanni/Rodri/Re indl 03/19/2020 09:20:00 AM EDT MEDENT ([facility] Outpatient Attender: CATRACHITA LANDRY Physical Therapy 03/14/2020 1 1:00:00 AM EDT MEDENT ([facility]) Outpatient Referrer: Jose De Jesus Scales MD 03/14/2020 05:34:00 AM EDT [facility] Outpatient [address] [address] 03/12/2020 12:00:00 AM EDT eCW1 ([facility]) Unknown [address] [address] 03/12/2020 12:00:00 AM EDT eCW1 ([facility]) Outpatient Referrer: Jose De Jesus Scales MD 03/09/2020 01:29:00 PM EDT [facility] Outpatient Referrer: Jose De Jesus Scales MD 03/09/2020 01:28:00 PM EDT [facility] Unknown [address] [address] 03/07/2020 12:00:00 AM EDT eCW1 ([facility]) Unknown [address] [address] 03/07/2020 12:00:00 AM EDT eCW1 ([facility]) Outpatient Referrer: Jose De Jesus Scales MD 03/06/2020 04:31:00 PM EDT [facility] Outpatient Referrer: Jose De Jesus Scales MD 03/05/2020 08:56:00 AM EDT [facility] Outpatient [address] [address] 03/05/2020 12:00:00 AM EDT eCW1 ([facility]) [facility] [address] [place] [address], [place] [address] 03/02/2020 12:00:00 AM EDT eCW1 ([facility]) [facility] [address] [address] 03/01/2020 12:00:00 AM EDT eCW1 ([facility]) Outpatient Referrer: Jose De Jesus Scales MD 02/24/2020 01:05:00 PM EDT [facility] Outpatient Referrer: CATRACHITA LANDRY 02/24/2020 01:00:00 PM EDT [facility] Pain [address] [address] 02/23/2020 12:00:00 AM EDT eCW1 ([facility]) Outpatient Referrer: CATRACHITA LANDRY 02/21/2020 05:47:00 AM EDT [facility] Outpatient Attender: Jose De Jesus Scales MD Physical Therapy 08:00:00 AM EDT MEDENT ([facility]) [address] [address] 02/20/2020 12:00:00 AM EDT eCW1 ([facility]) [address] [address] 02/13/2020 12:00:00 AM EDT eCW1 ([facility]) Outpatient Attender: Kaleigh LANDRY Physical Therapy 09:45:00 AM EDT MEDENT ([facility]) [facility] [address] [place] [address], [place] [address] 02/10/2020 12:00:00 AM EDT eCW1 ([facility]) [address] [address] 02/10/2020 12:00:00 AM EDT eCW1 ([facility]) [facility] [address] [address] 02/08/2020 12:00:00 AM EDT eCW1 ([facility]) [facility] [address] [address] 02/03/2020 12:00:00 AM EDT eCW1 ([facility]) [facility] [address] [address] 02/01/2020 12:00:00 AM EDT eCW1 ([facility]) [facility] [address] [address] 01/30/2020 12:00:00 AM EDT eCW1 ([facility]) [facility] [address] [address] 01/27/2020 12:00:00 AM EDT eCW1 ([facility]) [facility] [address] [address] 01/26/2020 12:00:00 AM EDT eCW1 ([facility]) [facility] [address] [address] 01/11/2020 12:00:00 AM EDT eCW1 ([facility]) [facility] [address] [address] 01/10/2020 12:00:00 AM EDT eCW1 ([facility]) [facility] [address] [place] [address], [place] [address] 01/10/2020 12:00:00 AM EDT eCW1 ([facility]) [facility] [address] [address] 01/10/2020 12:00:00 AM EDT eCW1 ([facility]) [facility] [address] [place] [address] 01/09/2020 12:00:00 AM EDT eCW1 ([facility]) Office Visit Attender: Jose De Jesus Scales MD Physical Therapy 11/2019 01:00:00 PM EDT MEDENT ([facility]) [address] [place] [address] 01/05/2020 12:00:00 AM EDT eCW1 ([facility]) [address] Y [address] 01/04/2020 12:00:00 AM EDT eCW1 ([facility]) [address] Y [address] 01/02/2020 12:00:00 AM EDT eCW1 ([facility]) [facility] Pain [address] [address] 01/02/2020 12:00:00 AM EDT eCW1 ([facility]) [address] Y [address] 01/02/2020 12:00:00 AM EDT eCW1 ([facility]) [address] Y [address] 12/26/2019 12:00:00 AM EDT eCW1 ([facility]) [facility] Pain [address] [address] 12/16/2019 12:00:00 AM EDT eCW1 ([facility]) [address] Y [address] 12/16/2019 12:00:00 AM EDT eCW1 ([facility]) [address] Y [address] 12/16/2019 12:00:00 AM EDT eCW1 ([facility]) Outpatient Referrer: CATRACHITA LANDRY 12/12/2019 07:12:00 AM EDT [facility] Center [address] [place] [address] 12/09/2019 12:00:00 AM EST eCW1 ([facility]) Outpatient Referrer: CATRACHITA LANDRY 12/08/2019 08:21:00 AM EST [facility] [address], [facility] [address] 12/07/2019 12:00:00 AM EST eCW1 ([facility]) Outpatient Referrer: CATRACHITA LANDRY 12/06/2019 01:16:00 PM EST [facility] Outpatient Referrer: CATRACHITA LANDRY 12/02/2019 12:31:00 PM EST [facility] Outpatient Referrer: CATRACHITA LANDRY 12/02/2019 11:49:00 AM EST [facility] [address] [address] 12/01/2019 12:00:00 AM EST eCW1 ([facility]) Outpatient Referrer: CATRACHITA LANDRY 11/28/2019 04:59:00 PM EST [facility] Outpatient Referrer: CATRACHITA LANDRY 11/28/2019 11:22:00 AM EST [facility] Outpatient Referrer: Nahun Cardenas MD 11/28/2019 11 :12:00 AM EST [facility] [address] [address] 11/24/2019 12:00:00 AM EST eCW1 ([facility]) [address] [address] 11/23/2019 12:00:00 AM EST eCW1 ([facility]) [address] [address] 11/22/2019 12:00:00 AM EST eCW1 ([facility]) Outpatient Attender: ITZEL IRIZARRY [facility] Office 11/05 08:30:00 AM EST MEDENT ([facility] [address] [address] 11/17/2019 12:00:00 AM EST eCW1 ([facility]) [facility] Center [address] [place] [address] 11/16/2019 12:00:00 AM EST eCW1 ([facility]) [facility] Center [address] [place] [address] 11/14/2019 12:00:00 AM EST eCW1 ([facility]) [facility] Center [address] [place] [address] 11/10/2019 12:00:00 AM EST eCW1 ([facility]) [address] [address] 11/10/2019 12:00:00 AM EST eCW1 ([facility]) [address] [address] 11/04/2019 12:00:00 AM EST eCW1 ([facility]) [facility] [address] [place] [address] 11/04/2019 12:00:00 AM EST eCW1 ([facility]) Outpatient Attender: ITZEL IRIZARRY [facility] Office 10/06 02:15:00 PM EST MEDENT ([facility] [address] [address] 10/28/2019 12:00:00 AM EST eCW1 ([facility]) [facility] [address] [place] [address] 10/28/2019 12:00:00 AM EST eCW1 ([facility]) [address] [address] 10/21/2019 12:00:00 AM EST eCW1 ([facility]) [address] [address] 10/17/2019 12:00:00 AM EST eCW1 ([facility]) [address] [address] 10/17/2019 12:00:00 AM EST eCW1 ([facility]) [facility] [address] [place] [address] 10/14/2019 12:00:00 AM EST eCW1 ([facility]) [address] [address] 10/07/2019 12:00:00 AM EST eCW1 ([facility]) Outpatient Attender: YVETTE SANTILLAN.KENDRA-SJRosa ElenaKENDRA 12:00:00 AM EST - 10/03/2019 02:55:15 PM EST [address] [address] 10/03/2019 12:00:00 AM EST eCW1 ([facility]) [address] [place] [address] 10/03/2019 12:00:00 AM EST eCW1 ([facility]) [address] [place] [address] 09/26/2019 12:00:00 AM EST eCW1 ([facility]) Outpatient [address] [place] [address] Y [address] 09/23/2019 12:00:00 AM EST eCW1 ([facility]) Outpatient Attender: ITZEL IRIZARRY [facility] Office 09/04 02:00:00 PM EST MEDENT ([facility] [address] [place] [address] 09/21/2019 12:00:00 AM EST eCW1 ([facility]) Medications Medication Brand Name Start Date Product Form Dose Route Admi nistrative Instructions Pharmacy Instructions Status Indications Reaction Description Data Source(s) Polymyxin B 84716 UNT/ML / Trimethoprim 1 MG/ML Ophtha lmic Solution Polymyxin B Sulfate/Trimethoprim Sulfate 11/17/2020 12:00:00 AM EST OPHT HALMIC active MEDENT ([facility], [facility]) Betamethasone 0.5 MG/ML Topical Cream Betamethasone Dipropio anjel 11/06/2020 12:00:00 AM EST active M EDENT ([facility] Fluocinolone Acetonide 0.1 MG/ML Otic Solution [Jeremy ic] DermOtic 0.01 % DermOtic 0.01 % 08/07/2020 12:00:00 AM EST active DermOtic 0.01 % eCW1 ([facility]) Fluocinolone Acetonide 0.1 MG/ML Otic Solution [Jeremy ic] DermOtic 0.01 % DermOtic 0.01 % 08/07/2020 12:00:00 AM EST active DermOtic 0.01 % eCW1 ([facility]) Fluocinolone Acetonide 0.1 MG/ML Otic Solution [Jeremy ic] DermOtic 0.01 % DermOtic 0.01 % 08/07/2020 12:00:00 AM EST active DermOtic 0.01 % eCW1 ([facility]) Fluocinolone Acetonide 0.1 MG/ML Otic Solution [Jeremy ic] DermOtic 0.01 % DermOtic 0.01 % 08/07/2020 12:00:00 AM EST active DermOtic 0.01 % eCW1 ([facility]) Fluocinolone Acetonide 0.1 MG/ML Otic Solution [Jeremy ic] DermOtic 0.01 % DermOtic 0.01 % 08/07/2020 12:00:00 AM EST active DermOtic 0.01 % eCW1 ([facility]) Fluocinolone Acetonide 0.1 MG/ML Otic Solution [Jeremy ic] DermOtic 0.01 % DermOtic 0.01 % 08/07/2020 12:00:00 AM EST cho spended DermOtic 0.01 % eCW1 ([facility]) Fluocinolone Acetonide 0.1 MG/ML Otic Solution [Jeremy ic] DermOtic 0.01 % DermOtic 0.01 % 08/07/2020 12:00:00 AM EST active DermOtic 0.01 % eCW1 ([facility]) Fluocinolone Acetonide 0.1 MG/ML Otic Solution [Jeremy ic] DermOtic 0.01 % DermOtic 0.01 % 08/07/2020 12:00:00 AM EST cho spended DermOtic 0.01 % eCW1 ([facility]) Fluocinolone Acetonide 0.1 MG/ML Otic Solution [Jeremy ic] DermOtic 0.01 % DermOtic 0.01 % 08/07/2020 12:00:00 AM EST active DermOtic 0.01 % eCW1 ([facility]) Fluocinolone Acetonide 0.1 MG/ML Otic Solution [Jeremy ic] DermOtic 0.01 % DermOtic 0.01 % 08/07/2020 12:00:00 AM EST active DermOtic 0.01 % eCW1 ([facility]) Fluocinolone Acetonide 0.1 MG/ML Otic Solution [Jeremy ic] DermOtic 0.01 % DermOtic 0.01 % 08/07/2020 12:00:00 AM EST active DermOtic 0.01 % eCW1 ([facility]) Fluocinolone Acetonide 0.1 MG/ML Otic Solution [Jeremy ic] DermOtic 0.01 % DermOtic 0.01 % 08/07/2020 12:00:00 AM EST active DermOtic 0.01 % eCW1 ([facility]) Fluocinolone Acetonide 0.1 MG/ML Otic Solution [Jeremy ic] DermOtic 0.01 % DermOtic 0.01 % 08/07/2020 12:00:00 AM EST cho spended DermOtic 0.01 % eCW1 ([facility]) Fluocinolone Acetonide 0.1 MG/ML Otic Solution [Jeremy ic] DermOtic 0.01 % DermOtic 0.01 % 08/07/2020 12:00:00 AM EST active DermOtic 0.01 % eCW1 ([facility]) Fluocinolone Acetonide 0.1 MG/ML Otic Solution [Jeremy ic] DermOtic 0.01 % DermOtic 0.01 % 08/07/2020 12:00:00 AM EST active DermOtic 0.01 % eCW1 ([facility]) Fluocinolone Acetonide 0.1 MG/ML Otic Solution [Jeremy ic] DermOtic 0.01 % DermOtic 0.01 % 08/07/2020 12:00:00 AM EST cho spended DermOtic 0.01 % eCW1 ([facility]) Fluocinolone Acetonide 0.1 MG/ML Otic Solution [Jeremy ic] DermOtic 0.01 % DermOtic 0.01 % 08/07/2020 12:00:00 AM EST cho spended DermOtic 0.01 % eCW1 ([facility]) Fluocinolone Acetonide 0.1 MG/ML Otic Solution [Jeremy ic] DermOtic 0.01 % DermOtic 0.01 % 08/07/2020 12:00:00 AM EST active DermOtic 0.01 % eCW1 ([facility]) Fluocinolone Acetonide 0.1 MG/ML Otic Solution [Jeremy ic] DermOtic 0.01 % DermOtic 0.01 % 08/07/2020 12:00:00 AM EST active DermOtic 0.01 % eCW1 ([facility]) Fluocinolone Acetonide 0.1 MG/ML Otic Solution [Jeremy ic] DermOtic 0.01 % DermOtic 0.01 % 08/07/2020 12:00:00 AM EST active DermOtic 0.01 % eCW1 ([facility]) Fluocinolone Acetonide 0.1 MG/ML Otic Solution [Jeremy ic] DermOtic 0.01 % DermOtic 0.01 % 08/07/2020 12:00:00 AM EST active DermOtic 0.01 % eCW1 ([facility]) Sulfamethoxazole 800 MG / Trimethoprim 160 MG Oral Tab let Sulfamethoxazole/Trimethoprim DS 08/06/2020 12:00:00 AM EST ORAL active MEDENT ([facility] linezolid 600 MG Oral Tablet Linezolid 08/06/2020 12:00:00 AM EST ORAL active MED[facility] ([facility] tramadol hydrochloride 50 MG Oral Tablet Tramadol HCL 08/01/2020 12:00:00 AM EDT active MEDENT ([facility]) Mupirocin 0.02 MG/MG Topical Ointment Mupirocin 07/14/2020 12:00:00 AM EDT completed MEDENT ([facility]) Acetaminophen 325 MG / Hydrocodone Bitartrate 5 MG Ora l Tablet Hydrocodone-Acetaminophen 06/04/2020 12:00:00 AM EDT active [facility] ([facility] [facility]) meloxicam 15 MG Oral Tablet Meloxicam 04/30/2020 12:00:00 AM EDT ORAL active [facility] ([facility]) Cephalexin 500 MG Oral Tablet Cephalexin 04/12/2020 12:00:00 AM EDT ORAL active [facility] ([facility] Mupirocin 0.02 MG/MG Topical Ointment Mupirocin 04/12/2020 12:00:00 AM EDT active [facility] ([facility] montelukast 10 MG Oral Tablet [Singulair] Singulair 10 MG Si ngulair 10 MG 02/03/2020 12:00:00 AM EDT 1.0 {tablet} active Singulair 10 MG eCW1 ([facility]) montelukast 10 MG Oral Tablet [Singulair] Singulair 10 MG Si ngulair 10 MG 02/03/2020 12:00:00 AM EDT 1.0 {tablet} active Singulair 10 MG eCW1 ([facility]) montelukast 10 MG Oral Tablet [Singulair] Singulair 10 MG Si ngulair 10 MG 02/03/2020 12:00:00 AM EDT 1.0 {tablet} active Singulair 10 MG eCW1 ([facility]) montelukast 10 MG Oral Tablet [Singulair] Singulair 10 MG Si ngulair 10 MG 02/03/2020 12:00:00 AM EDT 1.0 {tablet} active Singulair 10 MG eCW1 ([facility]) montelukast 10 MG Oral Tablet [Singulair] Singulair 10 MG Si ngulair 10 MG 02/03/2020 12:00:00 AM EDT 1.0 {tablet} active Singulair 10 MG eCW1 ([facility]) montelukast 10 MG Oral Tablet [Singulair] Singulair 10 MG Si ngulair 10 MG 02/03/2020 12:00:00 AM EDT 1.0 {tablet} active Singulair 10 MG eCW1 ([facility]) montelukast 10 MG Oral Tablet [Singulair] Singulair 10 MG Si ngulair 10 MG 02/03/2020 12:00:00 AM EDT 1.0 {tablet} active Singulair 10 MG eCW1 ([facility]) montelukast 10 MG Oral Tablet [Singulair] Singulair 10 MG Si ngulair 10 MG 02/03/2020 12:00:00 AM EDT 1.0 {tablet} active Singulair 10 MG eCW1 ([facility]) montelukast 10 MG Oral Tablet [Singulair] Singulair 10 MG Si ngulair 10 MG 02/03/2020 12:00:00 AM EDT 1.0 {tablet} active Singulair 10 MG eCW1 ([facility]) montelukast 10 MG Oral Tablet [Singulair] Singulair 10 MG Si ngulair 10 MG 02/03/2020 12:00:00 AM EDT 1.0 {tablet} active Singulair 10 MG eCW1 ([facility]) montelukast 10 MG Oral Tablet [Singulair] Singulair 10 MG Si ngulair 10 MG 02/03/2020 12:00:00 AM EDT 1.0 {tablet} active Singulair 10 MG eCW1 ([facility]) montelukast 10 MG Oral Tablet [Singulair] Singulair 10 MG Si ngulair 10 MG 02/03/2020 12:00:00 AM EDT 1.0 {tablet} active Singulair 10 MG eCW1 ([facility]) montelukast 10 MG Oral Tablet [Singulair] Singulair 10 MG Si ngulair 10 MG 02/03/2020 12:00:00 AM EDT 1.0 {tablet} active Singulair 10 MG eCW1 ([facility]) montelukast 10 MG Oral Tablet [Singulair] Singulair 10 MG Si ngulair 10 MG 02/03/2020 12:00:00 AM EDT 1.0 {tablet} active Singulair 10 MG eCW1 ([facility]) montelukast 10 MG Oral Tablet [Singulair] Singulair 10 MG Si ngulair 10 MG 02/03/2020 12:00:00 AM EDT 1.0 {tablet} active Singulair 10 MG eCW1 ([facility]) montelukast 10 MG Oral Tablet [Singulair] Singulair 10 MG Si ngulair 10 MG 02/03/2020 12:00:00 AM EDT 1.0 {tablet} active Singulair 10 MG eCW1 ([facility]) montelukast 10 MG Oral Tablet [Singulair] Singulair 10 MG Si ngulair 10 MG 02/03/2020 12:00:00 AM EDT 1.0 {tablet} active Singulair 10 MG eCW1 ([facility]) montelukast 10 MG Oral Tablet [Singulair] Singulair 10 MG Si ngulair 10 MG 02/03/2020 12:00:00 AM EDT 1.0 {tablet} active Singulair 10 MG eCW1 ([facility]) montelukast 10 MG Oral Tablet [Singulair] Singulair 10 MG Si ngulair 10 MG 02/03/2020 12:00:00 AM EDT 1.0 {tablet} active Singulair 10 MG eCW1 ([facility]) montelukast 10 MG Oral Tablet [Singulair] Singulair 10 MG Si ngulair 10 MG 02/03/2020 12:00:00 AM EDT 1.0 {tablet} active Singulair 10 MG eCW1 ([facility]) montelukast 10 MG Oral Tablet [Singulair] Singulair 10 MG Si ngulair 10 MG 02/03/2020 12:00:00 AM EDT 1.0 {tablet} active Singulair 10 MG eCW1 ([facility]) montelukast 10 MG Oral Tablet [Singulair] Singulair 10 MG Si ngulair 10 MG 02/03/2020 12:00:00 AM EDT 1.0 {tablet} active Singulair 10 MG eCW1 ([facility]) montelukast 10 MG Oral Tablet [Singulair] Singulair 10 MG Si ngulair 10 MG 02/03/2020 12:00:00 AM EDT 1.0 {tablet} active Singulair 10 MG eCW1 ([facility]) montelukast 10 MG Oral Tablet [Singulair] Singulair 10 MG Si ngulair 10 MG 02/03/2020 12:00:00 AM EDT 1.0 {tablet} active Singulair 10 MG eCW1 ([facility]) montelukast 10 MG Oral Tablet [Singulair] Singulair 10 MG Si ngulair 10 MG 02/03/2020 12:00:00 AM EDT 1.0 {tablet} active Singulair 10 MG eCW1 ([facility]) montelukast 10 MG Oral Tablet [Singulair] Singulair 10 MG Si ngulair 10 MG 02/03/2020 12:00:00 AM EDT 1.0 {tablet} active Singulair 10 MG eCW1 ([facility]) montelukast 10 MG Oral Tablet [Singulair] Singulair 10 MG Si ngulair 10 MG 02/03/2020 12:00:00 AM EDT 1.0 {tablet} active Singulair 10 MG eCW1 ([facility]) montelukast 10 MG Oral Tablet [Singulair] Singulair 10 MG Si ngulair 10 MG 02/03/2020 12:00:00 AM EDT 1.0 {tablet} active Singulair 10 MG eCW1 ([facility]) montelukast 10 MG Oral Tablet [Singulair] Singulair 10 MG Si ngulair 10 MG 02/03/2020 12:00:00 AM EDT active 1 tablet eCW1 ([facility]) montelukast 10 MG Oral Tablet [Singulair] Singulair 10 MG Si ngulair 10 MG 02/03/2020 12:00:00 AM EDT 1.0 {tablet} active Singulair 10 MG eCW1 ([facility]) montelukast 10 MG Oral Tablet [Singulair] Singulair 10 MG Si ngulair 10 MG 02/03/2020 12:00:00 AM EDT 1.0 {tablet} active Singulair 10 MG eCW1 ([facility]) montelukast 10 MG Oral Tablet [Singulair] Singulair 10 MG Si ngulair 10 MG 02/03/2020 12:00:00 AM EDT 1.0 {tablet} active Singulair 10 MG eCW1 ([facility]) montelukast 10 MG Oral Tablet [Singulair] Singulair 10 MG Si ngulair 10 MG 02/03/2020 12:00:00 AM EDT 1.0 {tablet} active Singulair 10 MG eCW1 ([facility]) montelukast 10 MG Oral Tablet [Singulair] Singulair 10 MG Si ngulair 10 MG 02/03/2020 12:00:00 AM EDT 1.0 {tablet} active Singulair 10 MG eCW1 ([facility]) montelukast 10 MG Oral Tablet [Singulair] Singulair 10 MG Si ngulair 10 MG 02/03/2020 12:00:00 AM EDT 1.0 {tablet} active Singulair 10 MG eCW1 ([facility]) Sodium Chloride 0.111 MEQ/ML Nasal [place] [[place] brand of sodium chloride] [place] Nasal [place] 0.65 % [place] Nasal [place] 0.65 % 01/27/2020 12:00:00 AM EDT active [place] Nas[place] 0.65 % eCW 1 ([facility]) Sodium Chloride 0.111 MEQ/ML Nasal [place] [[place] brand of sodium chloride] [place] Nasal [place] 0.65 % [place] Nas[place] 0.65 % 01/27/2020 12:00:00 AM EDT active [place] Nas[place] 0.65 % eCW 1 ([facility]) Sodium Chloride 0.111 MEQ/ML Nasal [place] [[place] brand of sodium chloride] [place] Nasal [place] 0.65 % [place] Nas[place] 0.65 % 01/27/2020 12:00:00 AM EDT active [place] Nas[place] 0.65 % eCW 1 ([facility]) Sodium Chloride 0.111 MEQ/ML Nasal [place] [[place] brand of sodium chloride] [place] Nasal [place] 0.65 % [place] Nas[place] 0.65 % 01/27/2020 12:00:00 AM EDT active [place] Nas[place] 0.65 % eCW 1 ([facility]) Sodium Chloride 0.111 MEQ/ML Nasal [place] [[place] brand of sodium chloride] [place] Nasal [place] 0.65 % [place] Nas[place] 0.65 % 01/27/2020 12:00:00 AM EDT active [place] Nas[place] 0.65 % eCW 1 ([facility]) Sodium Chloride 0.111 MEQ/ML Nasal [place] [[place] brand of sodium chloride] [place] Nasal [place] 0.65 % [place] Nas[place] 0.65 % 01/27/2020 12:00:00 AM EDT active [place] Nas[place] 0.65 % eCW 1 ([facility]) Sodium Chloride 0.111 MEQ/ML Nasal [place] [[place] brand of sodium chloride] [place] Nasal [place] 0.65 % [place] Nas[place] 0.65 % 01/27/2020 12:00:00 AM EDT active [place] Nas[place] 0.65 % eCW 1 ([facility]) Sodium Chloride 0.111 MEQ/ML Nasal [place] [[place] brand of sodium chloride] [place] Nasal [place] 0.65 % [place] Nas[place] 0.65 % 01/27/2020 12:00:00 AM EDT active [place] Nas[place] 0.65 % eCW 1 ([facility]) Sodium Chloride 0.111 MEQ/ML Nasal [place] [[place] brand of sodium chloride] [place] Nasal [place] 0.65 % [place] Nas[place] 0.65 % 01/27/2020 12:00:00 AM EDT active [place] Nas[place] 0.65 % eCW 1 ([facility]) Sodium Chloride 0.111 MEQ/ML Nasal [place] [[place] brand of sodium chloride] [place] Nasal [place] 0.65 % [place] Nas[place] 0.65 % 01/27/2020 12:00:00 AM EDT active [place] Nas[place] 0.65 % eCW 1 ([facility]) Sodium Chloride 0.111 MEQ/ML Nasal [place] [[place] brand of sodium chloride] [place] Nasal [place] 0.65 % [place] Nas[place] 0.65 % 01/27/2020 12:00:00 AM EDT active [place] Nas[place] 0.65 % eCW 1 ([facility]) Sodium Chloride 0.111 MEQ/ML Nasal [place] [[place] brand of sodium chloride] [place] Nasal [place] 0.65 % [place] Nas[place] 0.65 % 01/27/2020 12:00:00 AM EDT active [place] Nas[place] 0.65 % eCW 1 ([facility]) Sodium Chloride 0.111 MEQ/ML Nasal [place] [[place] brand of sodium chloride] [place] Nasal [place] 0.65 % [place] Nas[place] 0.65 % 01/27/2020 12:00:00 AM EDT active [place] 0.65 % eCW 1 ([facility]) Sodium Chloride 0.111 MEQ/ML Nasal [place] [[place] brand of sodium chloride] [place] Nasal [place] 0.65 % [place] Nas[place] 0.65 % 01/27/2020 12:00:00 AM EDT active [place] Nas[place] 0.65 % eCW 1 ([facility]) Sodium Chloride 0.111 MEQ/ML Nasal [place] [[place] brand of sodium chloride] [place] Nasal [place] 0.65 % [place] Nas[place] 0.65 % 01/27/2020 12:00:00 AM EDT active [place] Nas[place] 0.65 % eCW 1 ([facility]) Sodium Chloride 0.111 MEQ/ML Nasal [place] [[place] brand of sodium chloride] [place] Nasal [place] 0.65 % [place] Nas[place] 0.65 % 01/27/2020 12:00:00 AM EDT active [place] Nas[place] 0.65 % eCW 1 ([facility]) Sodium Chloride 0.111 MEQ/ML Nasal [place] [[place] brand of sodium chloride] [place] Nasal [place] 0.65 % [place] Nas[place] 0.65 % 01/27/2020 12:00:00 AM EDT active [place] 0.65 % eCW 1 ([facility]) Dexamethasone 2 MG Oral Tablet Dexamethasone 2 MG 01/27/2020 12:00: 00 AM EDT active 1 tablet eCW1 ([facility]) Sodium Chloride 0.111 MEQ/ML Nasal [place] [[place] brand of sodium chloride] [place] Nasal [place] 0.65 % [place] Nas[place] 0.65 % 01/27/2020 12:00:00 AM EDT active [place] Nas[place] 0.65 % eCW 1 ([facility]) Sodium Chloride 0.111 MEQ/ML Nasal [place] [[place] brand of sodium chloride] [place] Nasal [place] 0.65 % [place] Nas[place] 0.65 % 01/27/2020 12:00:00 AM EDT active [place] 0.65 % eCW 1 ([facility]) Sodium Chloride 0.111 MEQ/ML Nasal [place] [[place] brand of sodium chloride] [place] Nasal [place] 0.65 % [place] Nasal [place] 0.65 % 01/27/2020 12:00:00 AM EDT active [place] Nas[place] 0.65 % eCW 1 ([facility]) Sodium Chloride 0.111 MEQ/ML Nasal [place] [[place] brand of sodium chloride] [place] Nasal [place] 0.65 % [place] Nasal [place] 0.65 % 01/27/2020 12:00:00 AM EDT active 2 sprays in each nostril as needed eCW1 ([facility]) Sodium Chloride 0.111 MEQ/ML Nasal [place] [[place] brand of sodium chloride] [place] Nasal [place] 0.65 % [place] Nasal [place] 0.65 % 01/27/2020 12:00:00 AM EDT active [place] Nas[place] 0.65 % eCW 1 ([facility]) Sodium Chloride 0.111 MEQ/ML Nasal [place] [[place] brand of sodium chloride] [place] Nasal [place] 0.65 % [place] Nasal [place] 0.65 % 01/27/2020 12:00:00 AM EDT active [place] Nas[place] 0.65 % eCW 1 ([facility]) Sodium Chloride 0.111 MEQ/ML Nasal [place] [[place] brand of sodium chloride] [place] Nasal [place] 0.65 % [place] Nasal [place] 0.65 % 01/27/2020 12:00:00 AM EDT active [place] 0.65 % eCW 1 ([facility]) Sodium Chloride 0.111 MEQ/ML Nasal [place] [[place] brand of sodium chloride] [place] Nasal [place] 0.65 % [place] Nasal [place] 0.65 % 01/27/2020 12:00:00 AM EDT active [place] 0.65 % eCW 1 ([facility]) Sodium Chloride 0.111 MEQ/ML Nasal [place] [[place] brand of sodium chloride] [place] Nasal [place] 0.65 % [place] Nas[place] 0.65 % 01/27/2020 12:00:00 AM EDT active [place] 0.65 % eCW 1 ([facility]) Sodium Chloride 0.111 MEQ/ML Nasal [place] [[place] brand of sodium chloride] [place] Nasal [place] 0.65 % [place] Nasal [place] 0.65 % 01/27/2020 12:00:00 AM EDT active [place] 0.65 % eCW 1 ([facility]) Sodium Chloride 0.111 MEQ/ML Nasal [place] [[place] brand of sodium chloride] [place] Nasal [place] 0.65 % [place] Nas[place] 0.65 % 01/27/2020 12:00:00 AM EDT active [place] 0.65 % eCW 1 ([facility]) Sodium Chloride 0.111 MEQ/ML Nasal [place] [[place] brand of sodium chloride] [place] Nasal [place] 0.65 % [place] Nasal [place] 0.65 % 01/27/2020 12:00:00 AM EDT active [place] Nas[place] 0.65 % eCW 1 ([facility]) Sodium Chloride 0.111 MEQ/ML Nasal [place] [[place] brand of sodium chloride] [place] Nasal [place] 0.65 % [place] Nas[place] 0.65 % 01/27/2020 12:00:00 AM EDT active [place] 0.65 % eCW 1 ([facility]) Sodium Chloride 0.111 MEQ/ML Nasal [place] [[place] brand of sodium chloride] [place] Nasal [place] 0.65 % [place] Nas[place] 0.65 % 01/27/2020 12:00:00 AM EDT active [place] 0.65 % eCW 1 ([facility]) Sodium Chloride 0.111 MEQ/ML Nasal [place] [[place] brand of sodium chloride] [place] Nasal [place] 0.65 % [place] Nas[place] 0.65 % 01/27/2020 12:00:00 AM EDT active [place] 0.65 % eCW 1 ([facility]) Sodium Chloride 0.111 MEQ/ML Nasal [place] [[place] brand of sodium chloride] [place] Nasal [place] 0.65 % [place] Nas[place] 0.65 % 01/27/2020 12:00:00 AM EDT active [place] 0.65 % eCW 1 ([facility]) Sodium Chloride 0.111 MEQ/ML Nasal [place] [[place] brand of sodium chloride] [place] Nasal [place] 0.65 % [place] Nas[place] 0.65 % 01/27/2020 12:00:00 AM EDT active [place] 0.65 % eCW 1 ([facility]) Sodium Chloride 0.111 MEQ/ML Nasal [place] [[place] brand of sodium chloride] [place] Nasal [place] 0.65 % [place] Nas[place] 0.65 % 01/27/2020 12:00:00 AM EDT active [place] 0.65 % eCW 1 ([facility]) Sodium Chloride 0.111 MEQ/ML Nasal [place] [[place] brand of sodium chloride] [place] Nasal [place] 0.65 % [place] Nas[place] 0.65 % 01/27/2020 12:00:00 AM EDT active [place] 0.65 % eCW 1 ([facility]) Sodium Chloride 0.111 MEQ/ML Nasal [place] [[place] brand of sodium chloride] [place] Nasal [place] 0.65 % [place] Nas[place] 0.65 % 01/27/2020 12:00:00 AM EDT active [place] 0.65 % eCW 1 ([facility]) Sodium Chloride 0.111 MEQ/ML Nasal [place] [[place] brand of sodium chloride] [place] Nasal [place] 0.65 % [place] Nas[place] 0.65 % 01/27/2020 12:00:00 AM EDT active [place] 0.65 % eCW 1 ([facility]) Levothyroxine Sodium 0.025 MG Oral Tablet Levothyroxin e Sodium 25 MCG Levothyroxine Sodium 25 MCG 01/11/2020 12:00:00 AM EDT active Levothyroxine Sodium 25 MCG eCW1 ([facility]) Levothyroxine Sodium 0.025 MG Oral Tablet Levothyroxin e Sodium 25 MCG Levothyroxine Sodium 25 MCG 01/11/2020 12:00:00 AM EDT active Levothyroxine Sodium 25 MCG eCW1 ([facility]) Levothyroxine Sodium 0.025 MG Oral Tablet Levothyroxin e Sodium 25 MCG Levothyroxine Sodium 25 MCG 01/11/2020 12:00:00 AM EDT active 1 tablet in the morning on an empty stomach eCW1 ([facility]) Levothyroxine Sodium 0.025 MG Oral Tablet Levothyroxin e Sodium 25 MCG Levothyroxine Sodium 25 MCG 01/11/2020 12:00:00 AM EDT active Levothyroxine Sodium 25 MCG eCW1 ([facility]) Levothyroxine Sodium 0.025 MG Oral Tablet Levothyroxin e Sodium 25 MCG Levothyroxine Sodium 25 MCG 01/11/2020 12:00:00 AM EDT active Levothyroxine Sodium 25 MCG eCW1 ([facility]) Levothyroxine Sodium 0.025 MG Oral Tablet Levothyroxin e Sodium 25 MCG Levothyroxine Sodium 25 MCG 01/11/2020 12:00:00 AM EDT active Levothyroxine Sodium 25 MCG eCW1 ([facility]) Levothyroxine Sodium 0.025 MG Oral Tablet Levothyroxin e Sodium 25 MCG Levothyroxine Sodium 25 MCG 01/11/2020 12:00:00 AM EDT active 1 tablet in the morning on an empty stomach eCW1 ([facility]) Levothyroxine Sodium 0.025 MG Oral Tablet Levothyroxin e Sodium 25 MCG Levothyroxine Sodium 25 MCG 01/11/2020 12:00:00 AM EDT active Levothyroxine Sodium 25 MCG eCW1 ([facility]) Fluticasone Propionate 50 MCG/ACT Fluticasone Propionate 50 MCG/ACT 01/02/2020 12:00:00 AM EDT 1.0 {spray_in_each_nostril} acti ve Fluticasone Propionate 50 MCG/ACT eCW1 ([facility]) Fluticasone Propionate 50 MCG/ACT Fluticasone Propionate 50 MCG/ACT 01/02/2020 12:00:00 AM EDT 1.0 {spray_in_each_nostril} acti ve Fluticasone Propionate 50 MCG/ACT eCW1 ([facility]) Fluticasone Propionate 50 MCG/ACT Fluticasone Propionate 50 MCG/ACT 01/02/2020 12:00:00 AM EDT 1.0 {spray_in_each_nostril} acti ve Fluticasone Propionate 50 MCG/ACT eCW1 ([facility]) Fluticasone Propionate 50 MCG/ACT Fluticasone Propionate 50 MCG/ACT 01/02/2020 12:00:00 AM EDT 1.0 {spray_in_each_nostril} acti ve Fluticasone Propionate 50 MCG/ACT eCW1 ([facility]) Fluticasone Propionate 50 MCG/ACT Fluticasone Propionate 50 MCG/ACT 01/02/2020 12:00:00 AM EDT 1.0 {spray_in_each_nostril} acti ve Fluticasone Propionate 50 MCG/ACT eCW1 ([facility]) Fluticasone Propionate 50 MCG/ACT Fluticasone Propionate 50 MCG/ACT 01/02/2020 12:00:00 AM EDT 1.0 {spray_in_each_nostril} acti ve Fluticasone Propionate 50 MCG/ACT eCW1 ([facility]) Fluticasone Propionate 50 MCG/ACT Fluticasone Propionate 50 MCG/ACT 01/02/2020 12:00:00 AM EDT 1.0 {spray_in_each_nostril} acti ve Fluticasone Propionate 50 MCG/ACT eCW1 ([facility]) Fluticasone Propionate 50 MCG/ACT Fluticasone Propionate 50 MCG/ACT 01/02/2020 12:00:00 AM EDT 1.0 {spray_in_each_nostril} acti ve Fluticasone Propionate 50 MCG/ACT eCW1 ([facility]) Fluticasone Propionate 50 MCG/ACT Fluticasone Propionate 50 MCG/ACT 01/02/2020 12:00:00 AM EDT 1.0 {spray_in_each_nostril} acti ve Fluticasone Propionate 50 MCG/ACT eCW1 ([facility]) Fluticasone Propionate 50 MCG/ACT Fluticasone Propionate 50 MCG/ACT 01/02/2020 12:00:00 AM EDT 1.0 {spray_in_each_nostril} acti ve Fluticasone Propionate 50 MCG/ACT eCW1 ([facility]) Fluticasone Propionate 50 MCG/ACT Fluticasone Propionate 50 MCG/ACT 01/02/2020 12:00:00 AM EDT 1.0 {spray_in_each_nostril} acti ve Fluticasone Propionate 50 MCG/ACT eCW1 ([facility]) Fluticasone Propionate 50 MCG/ACT Fluticasone Propionate 50 MCG/ACT 01/02/2020 12:00:00 AM EDT 1.0 {spray_in_each_nostril} acti ve Fluticasone Propionate 50 MCG/ACT eCW1 ([facility]) Fluticasone Propionate 50 MCG/ACT Fluticasone Propionate 50 MCG/ACT 01/02/2020 12:00:00 AM EDT 1.0 {spray_in_each_nostril} acti ve Fluticasone Propionate 50 MCG/ACT eCW1 ([facility]) Fluticasone Propionate 50 MCG/ACT Fluticasone Propionate 50 MCG/ACT 01/02/2020 12:00:00 AM EDT 1.0 {spray_in_each_nostril} acti ve Fluticasone Propionate 50 MCG/ACT eCW1 ([facility]) Fluticasone Propionate 50 MCG/ACT Fluticasone Propionate 50 MCG/ACT 01/02/2020 12:00:00 AM EDT 1.0 {spray_in_each_nostril} acti ve Fluticasone Propionate 50 MCG/ACT eCW1 ([facility]) Fluticasone Propionate 50 MCG/ACT Fluticasone Propionate 50 MCG/ACT 01/02/2020 12:00:00 AM EDT 1.0 {spray_in_each_nostril} acti ve Fluticasone Propionate 50 MCG/ACT eCW1 ([facility]) Fluticasone Propionate 50 MCG/ACT Fluticasone Propionate 50 MCG/ACT 01/02/2020 12:00:00 AM EDT 1.0 {spray_in_each_nostril} acti ve Fluticasone Propionate 50 MCG/ACT eCW1 ([facility]) Fluticasone Propionate 50 MCG/ACT Fluticasone Propionate 50 MCG/ACT 01/02/2020 12:00:00 AM EDT 1.0 {spray_in_each_nostril} acti ve Fluticasone Propionate 50 MCG/ACT eCW1 ([facility]) Fluticasone Propionate 50 MCG/ACT Fluticasone Propionate 50 MCG/ACT 01/02/2020 12:00:00 AM EDT 1.0 {spray_in_each_nostril} acti ve Fluticasone Propionate 50 MCG/ACT eCW1 ([facility]) Fluticasone Propionate 50 MCG/ACT Fluticasone Propionate 50 MCG/ACT 01/02/2020 12:00:00 AM EDT 1.0 {spray_in_each_nostril} acti ve Fluticasone Propionate 50 MCG/ACT eCW1 ([facility]) Fluticasone Propionate 50 MCG/ACT Fluticasone Propionate 50 MCG/ACT 01/02/2020 12:00:00 AM EDT 1.0 {spray_in_each_nostril} acti ve Fluticasone Propionate 50 MCG/ACT eCW1 ([facility]) Fluticasone Propionate 50 MCG/ACT Fluticasone Propionate 50 MCG/ACT 01/02/2020 12:00:00 AM EDT 1.0 {spray_in_each_nostril} acti ve Fluticasone Propionate 50 MCG/ACT eCW1 ([facility]) Fluticasone Propionate 50 MCG/ACT Fluticasone Propionate 50 MCG/ACT 01/02/2020 12:00:00 AM EDT active 1 spray in each nostril eCW1 ([facility]) Fluticasone Propionate 50 MCG/ACT Fluticasone Propionate 50 MCG/ACT 01/02/2020 12:00:00 AM EDT 1.0 {spray_in_each_nostril} acti ve Fluticasone Propionate 50 MCG/ACT eCW1 ([facility]) Fluticasone Propionate 50 MCG/ACT Fluticasone Propionate 50 MCG/ACT 01/02/2020 12:00:00 AM EDT 1.0 {spray_in_each_nostril} acti ve Fluticasone Propionate 50 MCG/ACT eCW1 ([facility]) Fluticasone Propionate 50 MCG/ACT Fluticasone Propionate 50 MCG/ACT 01/02/2020 12:00:00 AM EDT 1.0 {spray_in_each_nostril} acti ve Fluticasone Propionate 50 MCG/ACT eCW1 ([facility]) Fluticasone Propionate 50 MCG/ACT Fluticasone Propionate 50 MCG/ACT 01/02/2020 12:00:00 AM EDT 1.0 {spray_in_each_nostril} acti ve Fluticasone Propionate 50 MCG/ACT eCW1 ([facility]) Fluticasone Propionate 50 MCG/ACT Fluticasone Propionate 50 MCG/ACT 01/02/2020 12:00:00 AM EDT 1.0 {spray_in_each_nostril} acti ve Fluticasone Propionate 50 MCG/ACT eCW1 ([facility]) Fluticasone Propionate 50 MCG/ACT Fluticasone Propionate 50 MCG/ACT 01/02/2020 12:00:00 AM EDT 1.0 {spray_in_each_nostril} acti ve Fluticasone Propionate 50 MCG/ACT eCW1 ([facility]) Fluticasone Propionate 50 MCG/ACT Fluticasone Propionate 50 MCG/ACT 01/02/2020 12:00:00 AM EDT 1.0 {spray_in_each_nostril} acti ve Fluticasone Propionate 50 MCG/ACT eCW1 ([facility]) Fluticasone Propionate 50 MCG/ACT Fluticasone Propionate 50 MCG/ACT 01/02/2020 12:00:00 AM EDT active 1 spray in each nostril eCW1 ([facility]) Fluticasone Propionate 50 MCG/ACT Fluticasone Propionate 50 MCG/ACT 01/02/2020 12:00:00 AM EDT 1.0 {spray_in_each_nostril} acti ve Fluticasone Propionate 50 MCG/ACT eCW1 ([facility]) Fluticasone Propionate 50 MCG/ACT Fluticasone Propionate 50 MCG/ACT 01/02/2020 12:00:00 AM EDT 1.0 {spray_in_each_nostril} acti ve Fluticasone Propionate 50 MCG/ACT eCW1 ([facility]) Fluticasone Propionate 50 MCG/ACT Fluticasone Propionate 50 MCG/ACT 01/02/2020 12:00:00 AM EDT 1.0 {spray_in_each_nostril} acti ve Fluticasone Propionate 50 MCG/ACT eCW1 ([facility]) Fluticasone Propionate 50 MCG/ACT Fluticasone Propionate 50 MCG/ACT 01/02/2020 12:00:00 AM EDT 1.0 {spray_in_each_nostril} acti ve Fluticasone Propionate 50 MCG/ACT eCW1 ([facility]) Fluticasone Propionate 50 MCG/ACT Fluticasone Propionate 50 MCG/ACT 01/02/2020 12:00:00 AM EDT 1.0 {spray_in_each_nostril} acti ve Fluticasone Propionate 50 MCG/ACT eCW1 ([facility]) Fluticasone Propionate 50 MCG/ACT Fluticasone Propionate 50 MCG/ACT 01/02/2020 12:00:00 AM EDT active 1 spray in each nostril eCW1 ([facility]) Fluticasone Propionate 50 MCG/ACT Fluticasone Propionate 50 MCG/ACT 01/02/2020 12:00:00 AM EDT 1.0 {spray_in_each_nostril} acti ve Fluticasone Propionate 50 MCG/ACT eCW1 ([facility]) Fluticasone Propionate 50 MCG/ACT Fluticasone Propionate 50 MCG/ACT 01/02/2020 12:00:00 AM EDT 1.0 {spray_in_each_nostril} acti ve Fluticasone Propionate 50 MCG/ACT eCW1 ([facility]) Fluticasone Propionate 50 MCG/ACT Fluticasone Propionate 50 MCG/ACT 01/02/2020 12:00:00 AM EDT 1.0 {spray_in_each_nostril} acti ve Fluticasone Propionate 50 MCG/ACT eCW1 ([facility]) Levothyroxine Sodium 0.05 MG Oral Tablet Levothyroxine Sodium 50 MCG Levothyroxine Sodium 50 MCG 12/16/2019 12:00:00 AM EDT active 1 tablet in the morning on an empty stomach eCW1 ([facility]) Levothyroxine Sodium 0.05 MG Oral Tablet Levothyroxine Sodium 50 MCG Levothyroxine Sodium 50 MCG 12/16/2019 12:00:00 AM EDT active 1 tablet in the morning on an empty stomach eCW1 ([facility]) Naproxen 500 MG Oral Tablet Naproxen 11/21/2019 12:00:00 AM EST active MEDENT ([facility] Ibuprofen 600 MG Oral Tablet Ibuprofen 600 MG 10/03/2019 12:00:[address] active Ibuprofen 600 MG eCW1 ([facility]) Ibuprofen 600 MG Oral Tablet Ibuprofen 600 MG 10/03/2019 12:00:[address] active Ibuprofen 600 MG eCW1 ([facility]) Ibuprofen 600 MG Oral Tablet Ibuprofen 600 MG 10/03/2019 12:00:[address] active Ibuprofen 600 MG eCW1 ([facility]) [place] Saline Nasal Gel 1 UNK 10/03/2019 12:00:00 AM EST active as directed eCW1 ([facility]) Ibuprofen 600 MG Oral Tablet Ibuprofen 600 MG 10/03/2019 12:00:[address] active Ibuprofen 600 MG eCW1 ([facility]) Ibuprofen 600 MG Oral Tablet Ibuprofen 600 MG 10/03/2019 12:00:[address] active Ibuprofen 600 MG eCW1 ([facility]) Ibuprofen 600 MG Oral Tablet Ibuprofen 600 MG 10/03/2019 12:00:[address] active Ibuprofen 600 MG eCW1 ([facility]) Ibuprofen 600 MG Oral Tablet Ibuprofen 600 MG 10/03/2019 12:00:[address] active Ibuprofen 600 MG eCW1 ([facility]) Ibuprofen 600 MG Oral Tablet Ibuprofen 600 MG 10/03/2019 12:00:[address] active Ibuprofen 600 MG eCW1 ([facility]) Ibuprofen 600 MG Oral Tablet Ibuprofen 600 MG 10/03/2019 12:00:[address] active 1 tablet with food or mil k as needed eCW1 ([facility]) Ibuprofen 600 MG Oral Tablet Ibuprofen 600 MG 10/03/2019 12:00:[address] active Ibuprofen 600 MG eCW1 ([facility]) Ibuprofen 600 MG Oral Tablet Ibuprofen 600 MG 10/03/2019 12:00:[address] active Ibuprofen 600 MG eCW1 ([facility]) Ibuprofen 600 MG Oral Tablet Ibuprofen 600 MG 10/03/2019 12:00:[address] active Ibuprofen 600 MG eCW1 ([facility]) Ibuprofen 600 MG Oral Tablet Ibuprofen 600 MG 10/03/2019 12:00:[address] active Ibuprofen 600 MG eCW1 ([facility]) Ibuprofen 600 MG Oral Tablet Ibuprofen 600 MG 10/03/2019 12:00:[address] active Ibuprofen 600 MG eCW1 ([facility]) Ibuprofen 600 MG Oral Tablet Ibuprofen 600 MG 10/03/2019 12:00:[address] active Ibuprofen 600 MG eCW1 ([facility]) Ibuprofen 600 MG Oral Tablet Ibuprofen 600 MG 10/03/2019 12:00:[address] active Ibuprofen 600 MG eCW1 ([facility]) Ibuprofen 600 MG Oral Tablet Ibuprofen 600 MG 10/03/2019 12:00:[address] active 1 tablet with food or mil k as needed eCW1 ([facility]) Ibuprofen 600 MG Oral Tablet Ibuprofen 600 MG 10/03/2019 12:00:[address] active Ibuprofen 600 MG eCW1 ([facility]) Ibuprofen 600 MG Oral Tablet Ibuprofen 600 MG 10/03/2019 12:00:[address] active 1 tablet with food or mil k as needed eCW1 ([facility]) Ibuprofen 600 MG Oral Tablet Ibuprofen 600 MG 10/03/2019 12:00:[address] active Ibuprofen 600 MG eCW1 ([facility]) Ibuprofen 600 MG Oral Tablet Ibuprofen 600 MG 10/03/2019 12:00:[address] active Ibuprofen 600 MG eCW1 ([facility]) Ibuprofen 600 MG Oral Tablet Ibuprofen 600 MG 10/03/2019 12:00:[address] active Ibuprofen 600 MG eCW1 ([facility]) Ibuprofen 600 MG Oral Tablet Ibuprofen 600 MG 10/03/2019 12:00:[address] active 1 tablet with food or mil k as needed eCW1 ([facility]) Ibuprofen 600 MG Oral Tablet Ibuprofen 600 MG 10/03/2019 12:00:[address] active Ibuprofen 600 MG eCW1 ([facility]) Ibuprofen 600 MG Oral Tablet Ibuprofen 600 MG 10/03/2019 12:00:[address] active Ibuprofen 600 MG eCW1 ([facility]) Ibuprofen 600 MG Oral Tablet Ibuprofen 600 MG 10/03/2019 12:00:[address] active Ibuprofen 600 MG eCW1 ([facility]) Ibuprofen 600 MG Oral Tablet Ibuprofen 600 MG 10/03/2019 12:00:[address] active Ibuprofen 600 MG eCW1 ([facility]) Ibuprofen 600 MG Oral Tablet Ibuprofen 600 MG 10/03/2019 12:00:[address] active Ibuprofen 600 MG eCW1 ([facility]) Ibuprofen 600 MG Oral Tablet Ibuprofen 600 MG 10/03/2019 12:00:[address] active Ibuprofen 600 MG eCW1 ([facility]) Ibuprofen 600 MG Oral Tablet Ibuprofen 600 MG 10/03/2019 12:00:[address] active Ibuprofen 600 MG eCW1 ([facility]) Ibuprofen 600 MG Oral Tablet Ibuprofen 600 MG 10/03/2019 12:00:[address] active Ibuprofen 600 MG eCW1 ([facility]) Ibuprofen 600 MG Oral Tablet Ibuprofen 600 MG 10/03/2019 12:00:[address] active 1 tablet with food or mil k as needed eCW1 ([facility]) Ibuprofen 600 MG Oral Tablet Ibuprofen 600 MG 10/03/2019 12:00:[address] active Ibuprofen 600 MG eCW1 ([facility]) Ibuprofen 600 MG Oral Tablet Ibuprofen 600 MG 10/03/2019 12:00:[address] active Ibuprofen 600 MG eCW1 ([facility]) Ibuprofen 600 MG Oral Tablet Ibuprofen 600 MG 10/03/2019 12:00:[address] active Ibuprofen 600 MG eCW1 ([facility]) Ibuprofen 600 MG Oral Tablet Ibuprofen 600 MG 10/03/2019 12:00:[address] active Ibuprofen 600 MG eCW1 ([facility]) Ibuprofen 600 MG Oral Tablet Ibuprofen 600 MG 10/03/2019 12:00:[address] active 1 tablet with food or mil k as needed eCW1 ([facility]) Ibuprofen 600 MG Oral Tablet Ibuprofen 600 MG 10/03/2019 12:00:[address] active Ibuprofen 600 MG eCW1 ([facility]) Ibuprofen 600 MG Oral Tablet Ibuprofen 600 MG 10/03/2019 12:00:[address] active Ibuprofen 600 MG eCW1 ([facility]) Ibuprofen 600 MG Oral Tablet Ibuprofen 600 MG 10/03/2019 12:00:[address] active Ibuprofen 600 MG eCW1 ([facility]) tramadol hydrochloride 50 MG Oral Tablet Tramadol HCl 50 MG Tramadol HCl 50 MG 09/23/2019 12:00:00 AM EST 1.0 {tablet_as_needed} suspended Tramadol HCl 50 MG eCW1 ([facility]) tramadol hydrochloride 50 MG Oral Tablet Tramadol HCl 50 MG Tramadol HCl 50 MG 09/23/2019 12:00:00 AM EST 1.0 {tablet_as_needed} suspended Tramadol HCl 50 MG eCW1 ([facility]) tramadol hydrochloride 50 MG Oral Tablet Tramadol HCl 50 MG Tramadol HCl 50 MG 09/23/2019 12:00:00 AM EST 1.0 {tablet_as_needed} active Tramadol HCl 50 MG eCW1 ([facility]) tramadol hydrochloride 50 MG Oral Tablet Tramadol HCl 50 MG Tramadol HCl 50 MG 09/23/2019 12:00:00 AM EST 1.0 {tablet_as_needed} suspended Tramadol HCl 50 MG eCW1 ([facility]) tramadol hydrochloride 50 MG Oral Tablet Tramadol HCl 50 MG Tramadol HCl 50 MG 09/23/2019 12:00:00 AM EST active 1 tablet as needed eCW1 ([facility]) tramadol hydrochloride 50 MG Oral Tablet Tramadol HCl 50 MG Tramadol HCl 50 MG 09/23/2019 12:00:00 AM EST 1.0 {tablet_as_needed} suspended Tramadol HCl 50 MG eCW1 ([facility]) tramadol hydrochloride 50 MG Oral Tablet Tramadol HCl 50 MG Tramadol HCl 50 MG 09/23/2019 12:00:00 AM EST 1.0 {tablet_as_needed} active Tramadol HCl 50 MG eCW1 ([facility]) tramadol hydrochloride 50 MG Oral Tablet Tramadol HCl 50 MG Tramadol HCl 50 MG 09/23/2019 12:00:00 AM EST 1.0 {tablet_as_needed} suspended Tramadol HCl 50 MG eCW1 ([facility]) tramadol hydrochloride 50 MG Oral Tablet Tramadol HCl 50 MG Tramadol HCl 50 MG 09/23/2019 12:00:00 AM EST 1.0 {tablet_as_needed} active Tramadol HCl 50 MG eCW1 ([facility]) tramadol hydrochloride 50 MG Oral Tablet Tramadol HCl 50 MG Tramadol HCl 50 MG 09/23/2019 12:00:00 AM EST 1.0 {tablet_as_needed} active Tramadol HCl 50 MG eCW1 ([facility]) tramadol hydrochloride 50 MG Oral Tablet Tramadol HCl 50 MG Tramadol HCl 50 MG 09/23/2019 12:00:00 AM EST 1.0 {tablet_as_needed} suspended Tramadol HCl 50 MG eCW1 ([facility]) tramadol hydrochloride 50 MG Oral Tablet Tramadol HCl 50 MG Tramadol HCl 50 MG 09/23/2019 12:00:00 AM EST 1.0 {tablet_as_needed} suspended Tramadol HCl 50 MG eCW1 ([facility]) tramadol hydrochloride 50 MG Oral Tablet Tramadol HCl 50 MG Tramadol HCl 50 MG 09/23/2019 12:00:00 AM EST 1.0 {tablet_as_needed} suspended Tramadol HCl 50 MG eCW1 ([facility]) tramadol hydrochloride 50 MG Oral Tablet Tramadol HCl 50 MG Tramadol HCl 50 MG 09/23/2019 12:00:00 AM EST 1.0 {tablet_as_needed} suspended Tramadol HCl 50 MG eCW1 ([facility]) tramadol hydrochloride 50 MG Oral Tablet Tramadol HCl 50 MG Tramadol HCl 50 MG 09/23/2019 12:00:00 AM EST 1.0 {tablet_as_needed} active Tramadol HCl 50 MG eCW1 ([facility]) tramadol hydrochloride 50 MG Oral Tablet Tramadol HCl 50 MG Tramadol HCl 50 MG 09/23/2019 12:00:00 AM EST 1.0 {tablet_as_needed} suspended Tramadol HCl 50 MG eCW1 ([facility]) tramadol hydrochloride 50 MG Oral Tablet Tramadol HCl 50 MG Tramadol HCl 50 MG 09/23/2019 12:00:00 AM EST 1.0 {tablet_as_needed} active Tramadol HCl 50 MG eCW1 ([facility]) tramadol hydrochloride 50 MG Oral Tablet Tramadol HCl 50 MG Tramadol HCl 50 MG 09/23/2019 12:00:00 AM EST active 1 tablet as needed eCW1 ([facility]) tramadol hydrochloride 50 MG Oral Tablet Tramadol HCl 50 MG Tramadol HCl 50 MG 09/23/2019 12:00:00 AM EST 1.0 {tablet_as_needed} suspended Tramadol HCl 50 MG eCW1 ([facility]) tramadol hydrochloride 50 MG Oral Tablet Tramadol HCl 50 MG Tramadol HCl 50 MG 09/23/2019 12:00:00 AM EST 1.0 {tablet_as_needed} active Tramadol HCl 50 MG eCW1 ([facility]) tramadol hydrochloride 50 MG Oral Tablet Tramadol HCl 50 MG Tramadol HCl 50 MG 09/23/2019 12:00:00 AM EST 1.0 {tablet_as_needed} active Tramadol HCl 50 MG eCW1 ([facility]) tramadol hydrochloride 50 MG Oral Tablet Tramadol HCl 50 MG Tramadol HCl 50 MG 09/23/2019 12:00:00 AM EST 1.0 {tablet_as_needed} active Tramadol HCl 50 MG eCW1 ([facility]) tramadol hydrochloride 50 MG Oral Tablet Tramadol HCl 50 MG Tramadol HCl 50 MG 09/23/2019 12:00:00 AM EST 1.0 {tablet_as_needed} active Tramadol HCl 50 MG eCW1 ([facility]) tramadol hydrochloride 50 MG Oral Tablet Tramadol HCl 50 MG Tramadol HCl 50 MG 09/23/2019 12:00:00 AM EST active 1 tablet as needed eCW1 ([facility]) tramadol hydrochloride 50 MG Oral Tablet Tramadol HCl 50 MG Tramadol HCl 50 MG 09/23/2019 12:00:00 AM EST 1.0 {tablet_as_needed} active Tramadol HCl 50 MG eCW1 ([facility]) tramadol hydrochloride 50 MG Oral Tablet Tramadol HCl 50 MG Tramadol HCl 50 MG 09/23/2019 12:00:00 AM EST 1.0 {tablet_as_needed} active Tramadol HCl 50 MG eCW1 ([facility]) tramadol hydrochloride 50 MG Oral Tablet Tramadol HCl 50 MG Tramadol HCl 50 MG 09/23/2019 12:00:00 AM EST 1.0 {tablet_as_needed} suspended Tramadol HCl 50 MG eCW1 ([facility]) tramadol hydrochloride 50 MG Oral Tablet Tramadol HCl 50 MG Tramadol HCl 50 MG 09/23/2019 12:00:00 AM EST 1.0 {tablet_as_needed} suspended Tramadol HCl 50 MG eCW1 ([facility]) tramadol hydrochloride 50 MG Oral Tablet Tramadol HCl 50 MG Tramadol HCl 50 MG 09/23/2019 12:00:00 AM EST 1.0 {tablet_as_needed} suspended Tramadol HCl 50 MG eCW1 ([facility]) tramadol hydrochloride 50 MG Oral Tablet Tramadol HCl 50 MG Tramadol HCl 50 MG 09/23/2019 12:00:00 AM EST 1.0 {tablet_as_needed} suspended Tramadol HCl 50 MG eCW1 ([facility]) tramadol hydrochloride 50 MG Oral Tablet Tramadol HCl 50 MG Tramadol HCl 50 MG 09/23/2019 12:00:00 AM EST 1.0 {tablet_as_needed} suspended Tramadol HCl 50 MG eCW1 ([facility]) tramadol hydrochloride 50 MG Oral Tablet Tramadol HCl 50 MG Tramadol HCl 50 MG 09/23/2019 12:00:00 AM EST active 1 tablet as needed eCW1 ([facility]) tramadol hydrochloride 50 MG Oral Tablet Tramadol HCl 50 MG Tramadol HCl 50 MG 09/23/2019 12:00:00 AM EST 1.0 {tablet_as_needed} suspended Tramadol HCl 50 MG eCW1 ([facility]) tramadol hydrochloride 50 MG Oral Tablet Tramadol HCl 50 MG Tramadol HCl 50 MG 09/23/2019 12:00:00 AM EST 1.0 {tablet_as_needed} suspended Tramadol HCl 50 MG eCW1 ([facility]) tramadol hydrochloride 50 MG Oral Tablet Tramadol HCl 50 MG Tramadol HCl 50 MG 09/23/2019 12:00:00 AM EST 1.0 {tablet_as_needed} suspended Tramadol HCl 50 MG eCW1 ([facility]) tramadol hydrochloride 50 MG Oral Tablet Tramadol HCl 50 MG Tramadol HCl 50 MG 09/23/2019 12:00:00 AM EST 1.0 {tablet_as_needed} suspended Tramadol HCl 50 MG eCW1 ([facility]) tramadol hydrochloride 50 MG Oral Tablet Tramadol HCl 50 MG Tramadol HCl 50 MG 09/23/2019 12:00:00 AM EST 1.0 {tablet_as_needed} suspended Tramadol HCl 50 MG eCW1 ([facility]) tramadol hydrochloride 50 MG Oral Tablet Tramadol HCl 50 MG Tramadol HCl 50 MG 09/23/2019 12:00:00 AM EST active 1 tablet as needed eCW1 ([facility]) tramadol hydrochloride 50 MG Oral Tablet Tramadol HCl 50 MG Tramadol HCl 50 MG 09/23/2019 12:00:00 AM EST 1.0 {tablet_as_needed} active Tramadol HCl 50 MG eCW1 ([facility]) tramadol hydrochloride 50 MG Oral Tablet Tramadol HCl 50 MG Tramadol HCl 50 MG 09/23/2019 12:00:00 AM EST 1.0 {tablet_as_needed} active Tramadol HCl 50 MG eCW1 ([facility]) tramadol hydrochloride 50 MG Oral Tablet Tramadol HCl 50 MG Tramadol HCl 50 MG 09/23/2019 12:00:00 AM EST 1.0 {tablet_as_needed} active Tramadol HCl 50 MG eCW1 ([facility]) tramadol hydrochloride 50 MG Oral Tablet Tramadol HCl 50 MG Tramadol HCl 50 MG 09/23/2019 12:00:00 AM EST active 1 tablet as needed eCW1 ([facility]) tramadol hydrochloride 50 MG Oral Tablet Tramadol HCl 50 MG Tramadol HCl 50 MG 09/23/2019 12:00:00 AM EST 1.0 {tablet_as_needed} active Tramadol HCl 50 MG eCW1 ([facility]) tramadol hydrochloride 50 MG Oral Tablet Tramadol HCl 50 MG Tramadol HCl 50 MG 09/23/2019 12:00:00 AM EST 1.0 {tablet_as_needed} active Tramadol HCl 50 MG eCW1 ([facility]) Insurance Providers Payer name Policy type / Coverage type Policy ID Covered alliance party ID Covered alliance party's relationship to uribe Policy Uribe Plan Information [employer] MCDHMO [id number] SP [id number] [facility] O [id number] S [id number] [employer] COMM[employer]AN MCDHMO [id number] SP [id number] [facility] MOE [id number] SP [id number] [facility] MOE [id number] SP [id number] [facility] MEDICAID [id number] Kisha [id number] 33 [facility] [id number] SP [id number] [facility] I [id number] Self [id number] [employer] COMM[employer] PLAN XIX [id number] 18 [id number] MEDICAID M [id number] ANSI-Medicaid [id number] ANSI-Medicaid [id number] ANSI-Medicaid [id number] ANSI-Medicaid [id number] ANSI-Medicaid [id number] [facility] Commercial [id number] Self [id number] ANSI-Medicaid [id number] ANSI-Medicaid [id number] Medicaid [place] Med[place] Part B [id number] Self [id number] BS Moe Hmo Blue Option Medigap Part B [id number] Self [id number] [facility] Community Plan Commercial [id number] Self [id number] ANSI-Medicaid [id number] [place] [id number] Self [id number] BS Moe Hmo Blue Option Medigap Part B [id number] Self [id number] ANSI-Medicaid [id number] ANSI-Medicaid [id number] ANSI-Medicaid [id number] [place] [id number] Self [id number] BS Moe Hmo Blue Option Medigap Part B [id number] Self [id number] ANSI-Medicaid [id number] ANSI-Medicaid [id number] ANSI-Medicaid [id number] ANSI-Medicaid [id number] ANSI-Medicaid [id number] [employer] COMMUNITY PLAN [facility] [id number] ANSI-Medicaid [id number] ANSI-Medicaid [id number] ANSI-Medicaid [id number] ANSI-Medicaid [id number] ANSI-Medicaid [id number] [facility] Health Maintenance Organization (HMO) [id number] Self [id number] [facility] Health Maintenance Organization (HMO) [id number] Self [id number] ANSI-Medicaid [id number] ANSI-Medicaid [id number] ANSI-Medicaid [id number] ANSI-Medicaid [id number] ANSI-Medicaid [id number] ANSI-Medicaid [id number] ANSI-Medicaid [id number] ANSI-Medicaid [id number] ANSI-Medicaid [id number] ANSI-Medicaid [id number] ANSI-Medicaid [id number] ANSI-Medicaid [id number] ANSI-Medicaid [id number] ANSI-Medicaid [id number] [facility] [employer] Maintenance Organization (HMO) [id number] Self [id number] [facility] Health Maintenance Organization (HMO) [id number] Self [id number] ANSI-Medicaid [id number] ANSI-Medicaid [id number] ANSI-Medicaid [id number] ANSI-Medicaid [id number] ANSI-Medicaid [id number] ANSI-Medicaid [id number] ANSI-Medicaid [id number] ANSI-Medicaid [id number] ANSI-Medicaid [id number] ANSI-Medicaid [id number] ANSI-Medicaid [id number] ANSI-Medicaid [id number] ANSI-Medicaid [id number] ANSI-Medicaid [id number] ANSI-Medicaid [id number] ANSI-Medicaid [id number] ANSI-Medicaid [id number] ANSI-Medicaid [id number] ANSI-Medicaid [id number] ANSI-Medicaid [id number] ANSI-Medicaid [id number] ANSI-Medicaid [id number] ANSI-Medicaid [id number]-9118-[id number]-[id number]-[id number]-[id number] ANSI-Medicaid [id number] ANSI-Medicaid [id number] ANSI-Medicaid [id number] ANSI-Medicaid [id number] ANSI-Medicaid [id number] ANSI-Medicaid [id number] ANSI-Medicaid [id number] [facility] Comm PLN Commercial [id number] Self [id number] [facility] Community Plan Commercial [id number] Self [id number] ANSI-Medicaid [id number] ANSI-Medicaid [id number] ANSI-Medicaid [id number] ANSI-Medicaid [id number] ANSI-Medicaid [id number] ANSI-Medicaid [id number] ANSI-Medicaid [id number] ANSI-Medicaid [id number] ANSI-Medicaid [id number] ANSI-Medicaid [id number] ANSI-Medicaid [id number] ANSI-Medicaid [id number] ANSI-Medicaid [id number] ANSI-Medicaid [id number] [facility] MEDICAID [id number] [facility] [id number] ANSI-Medicaid [id number] ANSI-Medicaid [id number] ANSI-Medicaid [id number] ANSI-Medicaid [id number] ANSI-Medicaid [id number] ANSI-Medicaid [id number] ANSI-Medicaid [id number] ANSI-Medicaid [id number] ANSI-Medicaid [id number] ANSI-Medicaid [id number] ANSI-Medicaid [id number] ANSI-Medicaid [id number] [facility] Health Maintenance Organization [place] [id number] Self [id number] ANSI-Medicaid [id number] ANSI-Medicaid [id number] ANSI-Medicaid [id number] ANSI-Medicaid [id number] ANSI-Medicaid [id number] ANSI-Medicaid [id number] ANSI-Medicaid [id number] ANSI-Medicaid [id number] [facility] Health Maintenance [facility] ([facility] [id number] Self [id number] ANSI-Medicaid [id number] ANSI-Medicaid [id number] ANSI-Medicaid [id number] ANSI-Medicaid [id number] [facility] Maintenance [facility] [place] [id number] Self [id number] ANSI-Medicaid [id number] ANSI-Medicaid [id number] ANSI-Medicaid [id number] ANSI-Medicaid [id number] ANSI-Medicaid [id number] ANS-Medicaid [id number] ANSI-Medicaid [id number] ANSI-Medicaid [id number] ANSI-Medicaid [id number] ANSI-Medicaid [id number] ANSI-Medicaid [id number] ANSI-Medicaid [id number] [facility] Health Maintenance Organization (O) [id number] Self [id number] ANSI-Medicaid [id number] ANSI-Medicaid [id number] ANSI-Medicaid [id number] [facility] Health Maintenance Organization [place] [id number] Self [id number] ANSI-Medicaid [id number] ANSI-Medicaid [id number] ANSI-Medicaid [id number] ANSI-Medicaid [id number] ANSI-Medicaid [id number] ANSI-Medicaid [id number] ANSI-Medicaid [id number] ANSI-Medicaid [id number] ANSI-Medicaid [id number]-te9c-9vi8-[id number] ANSI-Medicaid [id number] ANSI-Medicaid [id number] ANSI-Medicaid [id number] ANSI-Medicaid [id number] ANSI-Medicaid [id number] ANSI-Medicaid [id number] ANSI-Medicaid [id number] [facility] MEDICAID PI PI ANSI-Medicaid [id number] ANSI-Medicaid [id number] ANSI-Medicaid [id number] ANSI-Medicaid [id number] ANSI-Medicaid [id number] ANSI-Medicaid [id number] ANSI-Medicaid [id number] ANSI-Medicaid [id number] ANSI-Medicaid [id number] ANSI-Medicaid [id number] [facility] Health Maintenance Organization (O) [id number] Self [id number] ANSI-Medicaid [id number] ANSI-Medicaid [id number] [place] [id number] Self [id number] BS Moe Hmo Blue Option Medigap Part B [id number] Self [id number] ANSI-Medicaid [id number] ANSI-Medicaid [id number] ANSI-Medicaid [id number] ANSI-Medicaid [id number] ANSI-Medicaid [id number] ANSI-Medicaid [id number] ANSI-Medicaid [id number] ANSI-Medicaid [id number] ANSI-Medicaid [id number] ANSI-Medicaid [id number] ANSI-Medicaid [id number] ANSI-Medicaid [id number] ANSI-Medicaid [id number] ANSI-Medicaid [id number] ANSI-Medicaid [id number] ANSI-Medicaid [id number] [facility] COMMUNITY PLAN [facility] [id number] SP [id number] ANSI-Medicaid [id number] [facility] Health Maintenance Organization (O) [id number] Self [id number] [place] [id number] Self [id number] [facility]ig[facility] B [id number] Self [id number] [facility] Health Maintenance Organization (HMO) [id number] Self [id number] [place] [id number] Self [id number] BS Moe Hmo Blue Option Medigap Part B [id number] Self [id number] [facility] [id number] S [id number] [facility] Moe/MCR Health Maintenance Organization (HMO) [id number] Self [id number] [place] [id number] Self [id number] BS Moe Hmo Blue Option Medigap Part B [id number] Self [id number] [place] [id number] Self [id number] BS Moe Hmo Blue Option Medigap Part B [id number] Self [id number] UNHC COMMUNITY PLAN MCDHMO [id number] SP [id number] [facility] Community Plan Commercial [id number] Self [id number] [facility] Moe/MCR Health Maintenance Organization (HMO) [id number] Self [id number] [facility] Moe/MCR Health Maintenance Organization (HMO) [id number] Self [id number] [place] [id number] Self [id number] BS Moe Hmo Blue Option Medigap Part B [id number] Self [id number] UNHC COMMUNITY PLAN MCDHMO [id number] SP [id number] [place] Part B [id number] Self [id number] BS Moe Hmo Blue Option Medigap Part B [id number] Self [id number] UNHC COMMUNITY PLAN MCDHMO [id number] SP [id number] [facility] I [id number] Self [id number] [place] Part B [id number] Self [id number] BS Moe Hmo Blue Option Medigap Part B [id number] Self [id number] [place] [id number] Self [id number] BS Moe Hmo Blue Option Medigap Part B [id number] Self [id number] [place] Part B [id number] Self [id number] BS Moe Hmo Blue Option Medigap Part B [id number] Self [id number] [facility] MEDICAID MOE HMO [id number] S [id number] UNHC COMMUNITY PLAN MCDHMO [id number] SP [id number] UNHC COMMUNITY PLAN MCDHMO [id number] SP [id number] [place] Part B Self BS Moe Hmo Blue Option Medigap Part B [id number] Self [id number] [facility] Community Plan Commercial [id number] Self [id number] [facility] Hmo Commercial Self UNHC COMMUNITY PLAN MCDHMO [id number] SP [id number] [facility] Moe/MCR Health Maintenance Organization (HMO) Self [facility] Health Maintenance Organization (HMO) Self MEDICAID [id number] [facility] P UNAVAILABLE C UNAVAILABLE BLUE CROSS MCDERMOTT PLAN [id number] SP [id number] [employer]BS P [id number] S [id number] EXCELLUS BCBS P [id number] S [id number] EXCELLUS BCBS P UNAVAILABLE S UNAV AILABLE BC HMOBLUE OPTION MC 2 [id number] 1 [id number] [place] 3 [id number] 1 [id number] N BLUE CROSS MCDERMOTT PLAN [id number] SP [id number] SELF PAY 2 UNAVAILABLE 1 UNAVAILA BLE BC HMOBLUE OPTION MC 2 [id number] 1 [id number] Problems, Conditions, and Diagnoses Code Display Name Description Problem Type Effective Dates Data Source(s) 817920769 Convalescence after surgery Convalescence after surger y Problem 08/20/2020 12:00:00 AM EST MED[facility] ([facility] S31.819D [id number] Unspecified open wou nd of right buttock, subsequent encounter Problem 08/09/2020 12:00:00 AM EST eCW1 ([facility]) M46.1 15120140 Sacroiliitis Problem 08/08/2020 12:00:00 AM EST eCW1 ([facility]) H60.93 0847387 Inflammation of both ear canals Problem 08/07/2020 12:00:00 AM EST eCW1 ([facility]) S31.819A 048011773 Wound of right buttock, initial encounter Problem 07/26/2020 12:00:00 AM EDT eCW1 ([facility]) Pain due to internal orthope dic prosthetic devices, implants and grafts, initial encounter Pain due to internal orthopedic prosthet ic devices, implants and grafts, initial encounter Problem 05/30/2020 12:00:00 AM EDT MED E[facility] ([facility] Cellulitis of right toe Cellulitis of right toe Proble m 04/26/2020 12:00:00 AM EDT - 05/30/2020 12:00:00 AM EDT [facility] ([facility] 53047946 Pain in limb Pain in limb Problem 04/26/2020 12:0 0:00 AM EDT - 05/06/2020 12:00:00 AM EDT [facility] ([facility] 79995771 Ulcer of foot Ulcer of foot Problem 04/26/2020 12 :00:00 AM EDT - 05/06/2020 12:00:00 AM EDT [facility] ([facility] M47.817 91025039 Spondylosis without myelopathy or radiculopathy, lumbosacral region Problem 04/17/2020 12:00:00 AM EDT eCW1 ([facility]) 149923853 Foreign body in heel Foreign body in heel Problem 04/04/2020 12:00:00 AM EDT - 04/26/2020 12:00:00 AM EDT MED[facility] ([facility] 40282045 Superficial foreign body of foot without major open wound AND without infection Superficial foreign body of foot without major open wound AND without infection Problem 04/04/2020 12:00:00 AM EDT - 04/26/2020 12:00:00 AM EDT MED[facility] ([facility] H69.83 91378936 Dysfunction of both eustachian tubes Prob gaurang 01/27/2020 12:00:00 AM EDT eCW1 ([facility]) H65.93 25728840 Bilateral serous otitis media, unspecifie d chronicity Problem 01/27/2020 12:00:00 AM EDT eCW1 ([facility]) H69.83 56464315 Dysfunction of both eustachian tubes Prob gaurang 01/27/2020 12:00:00 AM EDT eCW1 ([facility]) H65.93 66611457 Bilateral serous otitis media, unspecifie d chronicity Problem 01/27/2020 12:00:00 AM EDT eCW1 ([facility]) 141833589 Hammer toe Hammer toe Problem 12/02/2019 12:00:00 AM ES T [facility] ([facility] [id number] Tinea pedis Tinea pedis Problem 12/02/2019 12:0 0:00 AM EST - 05/06/2020 12:00:00 AM EDT [facility] ([facility] Corns and callosities Corns and callosities Problem 10/02/2019 12:00:00 AM EST [facility] [id number] Plantar fascial fibromatosis Plantar fascial fibromato sis Problem 10/02/2019 12:00:00 AM EST [facility] R00.2 Palpitations Palpitations Diagnosis 07/03/2020 11:53:21 A M EDT [facility] I25.10 Atherosclerotic heart diseas e of [place] coronary artery without angina pectoris Atherosclerotic heart disease of [place] Diagnosis 07/03/2020 11:53:21 AM EDT [facility] Y[address] or not applicable Unspecified place or not applicable Diagnosis 03/27/2020 04:32:00 PM EDT [facility] [id number] Exposure to other specified factors, ini tial encounter Exposure to other specified factors, initial encounter Diagnosis 03/27/2020 04:32:00 PM EDT [facility] [id number] Personal history of nicotine dependence Personal history of nicotine dependence Diagnosis 03/27/2020 04:32:00 PM EDT [facility] [id number] Latex allergy status Latex allergy status Diagnosis 03/27/2020 04:32:00 PM EDT [facility] Z951 Presence of aortocoronary bypass graft P resence of aortocoronary bypass graft Diagnosis 03/27/2020 [facility] [place] [facility] snf (current) use of aspirin snf (cu rrent) use of aspirin Diagnosis 03/27/2020 04:32:[facility] [place] E039 Hypothyroidism, unspecified Hypothyroidism, unspecifie d Diagnosis 03/27/2020 04:32:[facility] [place] [id number] Strain of muscle and tendon of back wall of thorax, initial encounter Strain of muscle and tendon of back wall of thorax, initial encounter Diagnosis 03/27/2020 04:32:[address] [facility] [place] [id number] Strain of muscle, fascia and tendon of l ower back, initial encounter Strain of muscle, fascia and tendon of lower back, initial encounter Diagnosis 03/27/2020 04:32:[address] [facility] [place] [id number] Strain of muscle, fascia and tendon at n chantel level, initial encounter Strain of muscle, fascia and tendon at neck level, initial encounter Diagnosis 03/27/2020 04:32:[facility] [place] M542 Cervicalgia Cervicalgia Diagnosis 03/27/2020 04:32:00 PM [facility] I31.3 Pericardial effusion (noninflammatory) P ericardial effusion (noninflammatory) Diagnosis 10/03/2019 01:59:44 PM [facility] R55 Syncope and collapse Syncope and collapse Diagnosis 10/03/2019 01:59:44 PM [facility] G56.00 Carpal tunnel syndrome, unspecified uppe r limb Carpal tunnel syndrome, unspecified uppe Diagnosis 10/03/2019 01:59:44 PM [facility] M54.30 Sciatica, unspecified side Sciatica, unspecified side Diagnosis 10/03/2019 01:59:44 PM [facility] Z98.890 Other specified postprocedural states Ot her specified postprocedural states Diagnosis 10/03/2019 01:59:44 PM [facility] G47.30 Sleep apnea, unspecified Sleep apnea, unspecified Diag nosis 10/03/2019 01:59:44 PM [facility] K21.9 Gastro-esophageal reflux disease without esophagitis Gastro-esophageal reflux disease without Diagnosis 10/03/2019 01:59:44 PM [facility] F41.8 Other specified anxiety disorders Other specifie d anxiety disorders Diagnosis 10/03/2019 01:59:44 PM [facility] E03.9 Hypothyroidism, unspecified Hypothyroidism, unspecifie d Diagnosis 10/03/2019 01:59:44 PM [facility] I10 Essential (primary) hypertension Essential (primary) h ypertension Diagnosis 10/03/2019 01:59:44 PM [facility] E78.00 Pure hypercholesterolemia, unspecified P ure hypercholesterolemia, unspecified Diagnosis 10/03/2019 01:59:44 PM [facility] E78.5 Hyperlipidemia, unspecified Hyperlipidemia, unspecifie d Diagnosis 10/03/2019 01:59:44 PM [facility] Surgeries/Procedures Procedure Description Date Indications Data Source(s) RADEX HAND MINIMUM 3 VIEWS 11/14/2020 12:00:00 AM EST [facility] ([facility] ) CLTX METACARPAL FX W/O MANIPULATION EACH BONE 10/29/19 21 12:00:00 AM EST [facility] ([facility] ) ARTHROCENTESIS ASPIR&/INJECTION SMALL JT/BURSA 021 12:00:00 AM EST [facility] ([facility] ) ARTHROCENTESIS ASPIR&/INJECTION MAJOR JT/BURSA 021 12:00:00 AM EST [facility] ([facility] ) FINE NEEDLE ASPIRATION W/O IMAGING GUIDANCE 07/26/2020 12:00:00 AM EDT eCW1 ([facility]) RADEX FOOT COMPLETE MINIMUM 3 VIEWS 07/23/2020 12:00:0 0 AM EDT [facility] ([facility] Remove Support Implant Deep 07/18/2020 12:00:00 AM EDT [facility] ([facility] Hammertoe Proc One Toe 07/18/2020 12:00:00 AM EDT [facility] Ostectomy/Exostectomy/Condylectomy Metatarsal Head 07/18/2020 12:00:00 AM EDT [facility] ARTHROCENTESIS ASPIR&/INJECTION MAJOR JT/BURSA 12:00:00 AM EDT [facility] ([facility] ) RADEX SHOULDER COMPLETE MINIMUM 2 VIEWS 05/01/2020 12: 00:00 AM EDT [facility] ([facility]) Therapeutic, Prophylactic Or Diagnostic Injection Subq/Im 04/30/2020 12:00:00 AM EDT [facility] ([facility]) DEBRIDEMENT OPEN WOUND 20 SQ CM/< 04/12/2020 12:00:00 AM EDT [facility] RADIOLOGIC EXAM KNEE COMPLETE 4/MORE VIEWS 04/05/2020 12:00:00 AM EDT [facility] ([facility]) INCISION&REMOVAL FOREIGN BODY SUBQ TISS SIMPLE 12:00:00 AM EDT [facility] ([facility] ARTHROCENTESIS ASPIR&/INJECTION MAJOR JT/BURSA 12:00:00 AM EDT [facility] ([facility]) Neuroplasty/Transposition, Ulnar Nerve AT [place]bow 2019 12:00:00 AM EDT [facility] ([facility]) EKG- ALL NON MCR/TRI PAYERS 12/16/2019 12:00:00 AM EDT eCW1 ([facility]) RADEX FOOT COMPLETE MINIMUM 3 VIEWS 11/23/2019 12:00:0 0 AM EST [facility] ([facility] ) ESTABILISHED PATIENT [facility] FACILITY CHARGE 12:00:00 AM EST eCW1 ([facility]) RADEX FOOT COMPLETE MINIMUM 3 VIEWS 11/21/2019 12:00:0 0 AM EST [facility] ([facility] TENDON SHEATH INCISION 10/18/2019 12:00:00 AM EST [facility] ([facility]) TENDON SHEATH INCISION 10/18/2019 12:00:00 AM EST [facility] ([facility]) Endoscopy Wrist W/Release Transverse Carpal Ligament 10/18/2019 12:00:00 AM EST [facility] ([facility]) Results ID Date Data Source [id number] 11/05/2020 09:50:00 AM EST [facility] ([facility]) Name Value Range Interpretation Code Description Data Toma rce(s) Supporting Document(s) Laboratory test finding (navigational concept) Laboratory test result [facility] ([facility]) ID Date Data Source [id number] 07/21/2020 11:01:24 PM EDT [facility] Name Value Range Interpretation Code Description Data Toma rce(s) Supporting Document(s) &PDF [facility] LWIFXv4iIsESGkRo75/QCHktHSVom5MzXJzoTQx2HJfeOWCoQ7XebMipWTOGDR6WZNDKXPBVSc7WOFjd 0b3 XkEAGaCxNXsAM6ON0dUBTayxYzevB4mM6kCO9XFCQ+Td2ILP3nt0IrGQf2YWPwy3XeZAmeNJm7D2WruC KmwfBkKcpqgIIFSOHgKIIvO9widvn7iIVuAUL7Vx6IWpXdd1XuZDEdVWyLtk1eQ4/TWBB+X2n/w5H2YY gEriZhozxmzSJZeJv1sJlOQfGHPW1lnQXd2QRWk92m 5iQvKXfmqhTtugH8t1+Z+gL8zfUVIVr//0uZfBRFxgyq3iWMyjqZzZ+/dhwlf1gM8u/JomJVPc44shRN FQfbJx1An/UU2UkybT7VrNO+YosWNXsXr9I8jF+tC1j7XtoxPgplfBqDajkeR1RCI4b1vM9LTJa24vo3 c7sQfb5JH551v4HXHzaa50800orTc64R3+o7nz0f35 [file] ICAgICAgICAgICAgICAgICAgICAgICAgICAgICAgICAgICAgICAgICAgICAgICAgICAgICAgICAgICAg ICAgICAgICAgICAgICAgICAgICAgICAgDQogICAgICAgICAgICAgICAgICAgICAgICAgICAgICAgICAg ICAgICAgICAgICAgICAgICAgICAgICAgICAgICAgIC AgICAgICAgICAgICAgICAgICAgICAgICAgICAgICAgICAgDQogICAgICAgICAgICAgICAgICAgICAgIC AgICAgICAgICAgICAgICAgICAgICAgICAgICAgICAgICAgICAgICAgICAgICAgICAgICAgICAgICAgIC AgICAgICAgICAgICAgICAgDQogICAgICAgICAgICAg ICAgICAgICAgICAgICAgICAgICAgICAgICAgICAgICAgICAgICAgICAgICAgICAgICAgICAgICAgICAg ICAgICAgICAgICAgICAgICAgICAgICAgICAgDQogICAgICAgICAgICAgICAgICAgICAgICAgICAgICAg ICAgICAgICAgICAgICAgICAgICAgICAgICAgICAgIC AgICAgICAgICAgICAgICAgICAgICAgICAgICAgICAgICAgICAgDQogICAgICAgICAgICAgICAgICAgIC AgICAgICAgICAgICAgICAgICAgICAgICAgICAgICAgICAgICAgICAgICAgICAgICAgICAgICAgICAgIC AgICAgICAgICAgICAgICAgICAgDQogICAgICAgICAg ICAgICAgICAgICAgICAgICAgICAgICAgICAgICAgICAgICAgICAgICAgICAgICAgICAgICAgICAgICAg ICAgICAgICAgICAgICAgICAgICAgICAgICAgICAgDQogICAgICAgICAgICAgICAgICAgICAgICAgICAg ICAgICAgICAgICAgICAgICAgICAgICAgICAgICAgIC AgICAgICAgICAgICAgICAgICAgICAgICAgICAgICAgICAgICAgICAgDQogICAgICAgICAgICAgICAgIC AgICAgICAgICAgICAgICAgICAgICAgICAgICAgICAgICAgICAgICAgICAgICAgICAgICAgICAgICAgIC AgICAgICAgICAgICAgICAgICAgICAgDQogICAgICAg ICAgICAgICAgICAgICAgICAgICAgICAgICAgICAgICAgICAgICAgICAgICAgICAgICAgICAgICAgICAg QQQyRVYtYXVoFRNuEROmNHQxEHOaMFZcTXNsVYRlEIWyYHj0E9ekNAMiVIHhZJ1dYJv5Vt1+DQoNCmVu HIN4gyFzmE3BYL5ty0VbOOmrJXIdo4LhNOe0RC4DLU MxKWibHX8GZChsxw8TPCXvBSWlpEUUa2srExJpXBN6EKEfZkvfYW3CIOPgH5tyidDuABLcPWPSAMsnJB DMRY8OHcNjV6OiqH19FKHTUr1+BQbzbtFlFknZJsL1BNAuk1PnHUa6MN4VBJAhLZyiCT2HIOIkzD8sGR obOE3EYxFxDXUfHABJIeWqQ43qzLUrWXy2E2QgJyWa ZGVkRmlsZXMgPDwvTmFtZXMgWyBdDQogID4+ID4+WKivJS4KVCjqfcZpZGMnBu5VBZVbNXM7BHUghSKc XmLiLFUKJRvhBW4SuQUiESI3aP7sADejGFPzPLSaP0dBFdHwkMskIK71sXpxdxNdbMVoHNf+Ka1XOC3u n5BxIPa9xvKnKOwoGTZ2BZrnGKLbXANvKTPeTLY3TY R0CGRXKeHmQGJxIWZiNIpwRUNmFDFens5JLIZsPASgYrPgToRsMSDcKOBjDWcxWCVgUOK0Ltw3KVSnQQ YhKU6WImBaGHGuHRPlTRKsWOBdLCZbqe3RJDRcROQjBwWfMVMfLEJoDLUbDLgoCTJzIHElVuVlGRLeIX CfOG9JHqJfTLIfSBI0WvpfNGDwBQHqgx2JUVMsZLMg WWQbPFFcIFJfQRWfLFsgKHTcZOA0LTyaWTSxODVbDZ0NKkRbEIQsAQHmFNSzSZJcUNKlue4LKOHzSREy VPA5SjWcUHVeDTSyCCdlCNZiRCP4VRF3IDVwVNMzBW3HTxXlEBPzAOF5IsmnVUWwVMHsdd4PWVUoBIZj NjgxNiAwMDAwMCBuDQowMDAwMDExNjcyIDAwMDAwIG 8OLcSjVABaEQR6RDvyTMIaNSAzvs4QVZGfRNGiRdUcFVAhUCMzHYFuPHwfPNIxPAQkJIIoCMGbHKEtAX 7KEjOjRHWcMPJ4NRncLQVaVQWwgq8YAWPvLZRaYrUoCFJlLSKmHMMiWQtsTYCeHAAuIaF8QHKhAGNsEL 1KIgJoSRBpKXA6DUiaVDUbSPBdeo5MSSVaIITjSPO1 FtIjOIYqUJYvFDcfYWOsEJQyETxrWOEaGTPrUS4AVzAdHWHoOmRsDiajJVOgVZCrvs7FCMJsDFQsUCU8 ZUWzFRPxLTKjAKk5eqUxcKJmMNm9CS4PV5EbjeZgTytISw7Um681NVM6CSOeHd7JY6nzHx0sIWVlPHIE Oq8TDGa9ELF4WxPwLJs9YCBqWnX2MJM6AeE8WqOvN0 U3YIAjW6Q+RTeaHJqkIzA6CKgfZKCrFrceLqrkOJrsYDR1Yuw5ZoQoBJ9gKYZTQn6+DQpzdGFydHhyZW BZCzG2UrA1BXikGDSFPb3F ID Date Data Source [id number] 07/18/2020 10:02:00 AM EDT [facility] ([facility] Name Value Range Interpretation Code Description Data Toma rce(s) Supporting Document(s) Surgical pathology study Laboratory test result [facility] FINAL DIAGNOSIS Bone, bilateral feet, exostectomy: Bone, for gross examination only. 07/19/2020899 CLINICAL DIAGNOSIS Pain due to internal orthopedic device 07/18/20201521 GROSS DIAGNOSIS Received in formalin labeled "bilateral feet bone" and consists of two pieces of munguia-white bone measuring 1.2 x 1.0 x 0.4 cm. in aggregate. The specimen is for gross exam only. -SV 07/18/2020 - 1521 Signed KIRSTY HEALY MD 07/19/2020 09 ID Date Data Source [id number] 07/17/2020 11:13:00 AM EDT [facility] ([facility] Name Value Range Interpretation Code Description Data Toma rce(s) Supporting Document(s) Glucose, Fasting 90 mg/dL 70-100 [facility] ([facility] Blood Urea Nitrogen 15 mg/dL 7-18 [facility] ([facility] Creatinine For GFR 1.08 mg/dL 0.70-1.30 [facility] ([facility] Glomerular Filtration Rate Laboratory test result [facility] ([facility] <content>Units are mL/min/1.73 m2</content>
<content></content>
<content>Chronic Kidney Disease Staging per NKF:</content>
<content></content>
<content>Stage I & II GFR >=60 Normal to Mildly Decreased</content>
<content>Stage III GFR 30-59 Moderately Decreased</content>
<content>Stage IV GFR 15-29 Severely Decreased</content>
<content>Stage V GFR <15 Very Little GFR Left</content>
<content>ESRD GFR <15 on BARREL DRUM CUTTER</content>
<content></content> Sodium Level 142 meq/L 136-145 [facility] Potassium Serum 4.4 meq/L 3.5-5.1 [facility] ([facility] Chloride Level 110 meq/L 98-107 Above high normal [facility] ([facility] Carbon Dioxide Level 27 meq/L 21-32 [facility] Anion Gap 5 meq/L 8-16 [facility] ([facility] Calcium Level 9.2 mg/dL 8.5-10.1 [facility] ID Date Data Source [id number] 07/17/2020 11:13:00 AM EDT [facility] ([facility] Name Value Range Interpretation Code Description Data Toma rce(s) Supporting Document(s) Red Blood Count 5.17 10 4.30-6.10 [facility] ([facility] White Blood Count 6.9 10 4.0-10.0 [facility] ([facility] Hemoglobin 14.8 g/dL 13.5-17.5 [facility] ([facility] Mean Corpuscular Volume 90.3 fl 80.0-96.0 M [facility] ([facility] Hematocrit 46.7 % 42.0-52.0 [facility] ([facility] Mean Corpuscular Hemoglobin 28.6 pg 27.0-33.0 [facility] Mean Corpuscular HGB Conc 31.7 g/dL 32.0-36.5 [facility] ([facility] Red Cell Distribution Width 15.0 % 11.5-14.5 Above high normal [facility] ([facility] Platelet Count, Automated 250 10 150-450 [facility] Nucleated Red Blood Cell % 0.0 % 0-0 [facility] ID Date Data Source [id number] 07/13/2020 11:30:00 AM EDT [facility] Name Value Range Interpretation Code Description Data Toma rce(s) Supporting Document(s) SARS coronavirus 2 RNA [facility] This lab was ordered by [facility] and reported by [facility]. ID Date Data Source [id number] 06/14/2020 11:00:00 AM EDT [facility] ([facility]) Name Value Range Interpretation Code Description Data Toma rce(s) Supporting Document(s) Coronavirus 2019 Nasopharygeal Laboratory test result [facility] ([facility]) This nucleic acid amplification test was developed and its performance characteristics determined by [facility]. Nucleic acid amplification tests include PCR and [...] detected) result in this assay. Performed at: [facility] [address] [id number] Ocular Pathologist: Ruth Ann Gonzalez MD, Phone: [phone] Not Detected ID Date Data Source [id number] 06/14/2020 11:00:00 AM EDT [facility] Name Value Range Interpretation Code Description Data Toma rce(s) Supporting Document(s) SARS coronavirus 2 RNA [facility] This lab was ordered by [facility] and reported by [facility]. ID Date Data Source [id number] 04/13/2020 01:30:00 PM EDT [facility] Name Value Range Interpretation Code Description Data Toma rce(s) Supporting Document(s) SARS coronavirus 2 RNA [facility] This lab was ordered by [facility] and reported by [facility]. ID Date Data Source [id number] 04/12/2020 09:00:00 AM EDT [facility] ([facility] Name Value Range Interpretation Code Description Data Toma rce(s) Supporting Document(s) Wound Culture Laboratory test result [facility] ([facility] <content>FULL REPORT IN LAB NOTES ([facility]).</content>
<content></content>
<content>ORGANISM 1: STAPHYLOCOCCUS AUREUS</content>
<content></content>
<content>QUANTITY OF GROWTH HEAVY</content>
<content></content>
<content></content>
<content>ORG ANISM 1: STAPHYLOCOCCUS AUREUS</content>
<content></content>
<content> STAPHYLOCOCCUS AUREUS: REACTION</content>
<content>ICR (INDUCIBLE CC RESISTANCE) IV ICR TEST RESULT</content>
<content>TETRACYCLINE PO 250 mg qid <=1 S</content>
<content>PENICILLIN G IV 1 mu q6H 0.12 R</content>
<content>PENICILLIN G IV 1 mu q6h 0.12 R</content>
<content>PENICILLIN G PO 250mg q6h fasting 0.12 R</content>
<content>TRIMETHOPRIM/SULFAMETHOXAZOLE IV 160mg TMP & 800mg SMXq6h <=10 S</content>
<content>TRIMETHOPRIM/SULFAMETHOXAZOLE PO Bactrim DS Bid <=10 S</content>
<content>ERYTHROMYCIN IV 500mg q6h >=8 R</content>
<content>ERYTHROMYCIN PO 500mg q6h >=8 R</content>
<content>GENTAMICIN IV 80mg q8h <=0.5 S</content>
<content>CLINDAMYCIN IV 600mg q6h 0.25 R</content>
<content>CLINDAMYCIN PO 150mg q6h 0.25 R</content>
<content>OXACILLIN IV 500mg q6h <=0.25 S</content>
<content> VANCOMYCIN IV 500mg q8h 1 S</content>
<content>LINEZOLID (ZYVOX) IV 600MG Q12HR 2 S</content>
<content>LINEZOLID (ZYVOX) PO 600MG Q12HR 2 S</content>
<content>An isolate with a (+) POSITIVE ICR test is considered</content>
<content>CLINDAMYCIN RESISTANT; however, clindamycin may still</content>
<content>be effective in some patients.</content>
<content>An isolate with a (-) NEGATIVE ICR test is considered</content>
<content>CLIDAMYCIN SENSITIVE.</content>
<content>Oxacillin result predicts susceptibility to all penicillinase-stable</content>
<content>penicillins (Nafcillin, Dicloxacilin), Cephalosporins, Carbapenems,</content>
<content>Amoxicillin/Clavulanate & Ampicillin/Sulbactam per CSLI standards.</content>
<content></content> ID Date Data Source [id number] 04/11/2020 09:51:00 AM EDT [facility] ([facility]) Name Value Range Interpretation Code Description Data Toma rce(s) Supporting Document(s) Laboratory test finding (navigational concept) Laboratory test result [facility] ([facility]) ID Date Data Source [id number] 03/28/2020 12:06:00 PM EDT [facility] [address] [place] [address] PHONE: [phone] FAX: [phone] Name .................. : JUVE Hawthorne Acct Number.................. : [id number] ROOM. ................. : [place]-17 MR Number ................... : [id number] Stay type ............. : E/R Discharge Date......... ... : 03/27/20 Admit Date ......... : 03/27/20 Admit Phys .................... : STEVE Date of ....... : 1965 Family Phys ................... : [employer] Phone .................. : [phone] Age ................................ : 54 Film# .................. .:[id number] Sex ................................. : M Unsigned transcriptions are preliminary reports and do not represent a medical or legal document SPINE THORACIC [id number] COMPLETE:03/27/20 19:04 KBO 19562 Reason(s): Mid Back Pain THORACIC SPINE X-RAY: INDICATION: Pain. FINDINGS: Routine views show normal alignment. The vertebral bodies and disc spaces are well maintained. The pedicles and posterior elements appear intact. No paraspinal masses are seen. IMPRESSION: Negative thoracic spine. Electronically Reviewed and Signed By Ollie Stewart M.D. , 03/28/20 12:06, [facility] Transcribe Initials: DRE , Transcribe Date: 03/27/20 21:44, Dictation Date: Copy for: GEOVANNY YENI via fax Copy for: STEVE SEN via fax Copy for: EMERGENCY DEPT via modem Copy for: 710 MED REC DISCHARGED Page 1 of 1 Name Value Range Interpretation Code Description Data Toma rce(s) Supporting Document(s) ID Date Data Source [id number] 03/28/2020 12:06:00 [place] [address] PHONE: [phone] FAX: [phone] Name .................. : JUVE Hawthorne Acct Number.................. : [id number] ROOM. ................. : [address] Number ................... : [id number] Stay type ............. : E/R Discharge Date......... ... : 03/27/20 Admit Date ......... : 03/27/20 Admit Phys .................... : STEVE Date of ....... : 1965 Family Phys ................... : HAVEN RIVERA Phone .................. : [phone] Age ................................ : 54 Film# .................. .:[id number] Sex ................................. : M Unsigned transcriptions are preliminary reports and do not represent a medical or legal document SPINE CERV COMP-5 OR MORE VIE [id number] COMPLETE:03/27/20 19:03 KBO 75942 Reason(s): Neck Pain CERVICAL SPINE X-RAY: INDICATION: Pain. FINDINGS: Alignment is maintained. Anterior vertebral body heights are maintained. There is no evidence of fracture or dislocation. Flexion and extension images demonstrate no evidence of cervical instability. Oblique images demonstrate no significant neural foraminal narrowing. IMPRESSION: No acute osseous abnormality of the cervical spine. Electronically Reviewed and Signed By Ollie Stewart M.D. , 03/28/20 12:06, [place] Transcribe Initials: DRE , Transcribe Date: 03/27/20 21:43, Dictation Date: Copy for: GEOVANNY JAIME via fax Copy for: STEVE ROTHMAN via fax Copy for: EMERGENCY DEPT via modem Copy for: 710 MED REC DISCHARGED Page 1 of 1 Name Value Range Interpretation Code Description Data Toma rce(s) Supporting Document(s) ID Date Data Source [id number] 03/28/2020 12:06:00 [place] [address] PHONE: [phone] FAX: [phone] Name .................. : JUVE Hawthorne Acct Number.................. : [id number] ROOM. ................. : [place]-17 Number ................... : [id number] Stay type ............. : E/R Discharge Date......... ... : 03/27/20 Admit Date ......... : 03/27/20 Admit Phys .................... : STEVE Date of ....... : 1965 Family Phys ................... : HAVEN RIVERA Phone .................. : [phone] Age ................................ : 54 Film# .................. .:[id number] Sex ................................. : M Unsigned transcriptions are preliminary reports and do not represent a medical or legal document SPINE LS COMPLETE [id number] COMPLETE:03/27/20 19:03 KBO 50192 Reason(s): Lower Back Pain LUMBAR SPINE X-RAY: INDICATION: Low back pain. FINDINGS: There is no evidence of scoliosis. Oblique images are at a suboptimal angle. Alignment is maintained. Anterior vertebral body heights are maintained. There is no evidence of fracture or dislocation. Mild facet arthropathy is noted from L4 through S1. IMPRESSION: Mild degenerative changes. No acute osseous abnormality of the lumbar spine. Electronically Reviewed and Signed By Ollie Stewart M.D. , 03/28/20 12:06, [place] Transcribe Initials: DRE , Transcribe Date: 03/27/20 21:41, Dictation Date: Copy for: GEOVANNY JAIME via fax Copy for: STEVE ROTHMAN via fax Copy for: EMERGENCY DEPT via modem Copy for: 710 MED REC DISCHARGED Page 1 of 1 Name Value Range Interpretation Code Description Data Toma rce(s) Supporting Document(s) ID Date Data Source [id number] 03/27/2020 04:32:00 PM EDT [facility] 1 OrderSheet [facility] Emergency Department [address] [place] [address] Phone #: ext- [phone] 03/27/2020 16:32 Patient: RINKU WHELAN Sex: M : 1965 Age: 54yWEIGHT:132.4 kg (S) HEIGHT:68 inches (S) BMI:44.4ALLERGIES: adhesive talpe, Codeine Phosphate, LatexCHIEF COMPLAINT: back pain, chronic pain:, back, neck, neck painDIAGNOSIS: Backache, Neck painLAB ORDERSOrder Description Priority Entered Acknowledged InitialedUrine Drug Screen STAT 17:46 03/27/2020 17:46 Deborah Fernández Julie R.N.; R.N. Verbal order per; Sen Major PAUrinalysis (Clean STAT 17:46 03/27/2020 17:46 Ivis Fernández Julie R.N.; R.NCristina Verbal order per; Sen Major PADIAGNOSTIC STUDY ORDERSOrder Description Priority Entered Acknowledged InitialedSpine Cervical STAT 18:25 03/27/2020 18:43 Lior,Chetan Geiger R.N.(Oxygen?(No)) P.A.-C; Reason for Study: Neck PainSpine Lumbar STAT 18:25 03/27/2020 18:43 Lior,Chetan Geiger R.N.(Oxygen?(No)) P.A.-C; Reason for Study: Lower Back PainSpine Thoracic AP STAT 18:25 03/27/2020 18:43 Lior,And Lat Yeni SmythNCristina(Oxygen?(No)) P.A.-C; Reason for Study: Mid Back PainMEDICATION/IV/DRIP/FLUID ORDERSOrder Description Priority Entered Acknowledged InitialedToradol IM 30 mg 18:25 03/27/2020 18:59 Yeni Tinajero R.N. P.A.-C; 2 OrderSheet [facility] Emergency Department [address] [place] [address] Phone #: ext- [phone] 03/27/2020 16:32 Patient: RINKU WHELAN Sex: M : 1965 Age: 54yAtivan PO 1 mg 18:25 03/27/2020 18:59 Yeni Tinajero R.N., P.A.-C;GENERAL ORDERSOrder Description Priority Entered Acknowledged Initialed[Electronically signed by Fely Tinajero R.N. (19:46 03/27/2020)][Electronically signed by Yeni Pittman P.A.-C (20:45 03/27/2020)][Electronically locked by Fely Tinajero R.N. (:46 03/27/2020)] Name Value Range Interpretation Code Description Data Toma rce(s) Supporting Document(s) ID Date Data Source [id number] 03/27/2020 04:32:00 PM EDT [facility] 1 Medication Reconciliation Report [facility] Emergency Department [address] [place] [address] Phone #: ext- [phone] 03/27/2020 16:32 Patient: RINKU WHELAN Sex: García : 1965 Age: 54yWeight: 132.4 kgHeight/Length: 68 in.BMI: 44.4ALLERGIES: adhesive talpe, Codeine Phosphate, LatexThe patient's Home Medications are listed below:THE FOLLOWING MEDICATIONS NEED TO BE RECONCILED: Aspirin 81 Oral Atorvastatin Calcium Oral (40 mg), daily busPIRone HCl Oral (10 mg), daily Cetirizine HCl Oral (10 mg), daily Escitalopram Oxalate Oral 30mg, daily, at bedtime Gabapentin Oral (600 mg) 1 tablet, 3x a day Levothyroxine Sodium Oral (25 mcg), daily Metoprolol Tartrate Oral (25 mg) 1 tablet, daily Montelukast Sodium Oral (10 mg), daily Omeprazole Oral (40 mg), daily Topiramate Oral (50 mg), 3x a dayThe source(s) of the original Home Medication information:Not obtained.The following Medications were given to the patient in the Emergency Department:Toradol [IM] IM 30 mg, administered: 03/27/2020 6:59:00 PM 2 Medication Reconciliation Report [facility] Emergency Department [address] [place] [address] Phone #: ext- [phone] 03/27/2020 16:32 Patient: RINKU WHELAN Sex: M : 1965 Age: 54yAtivan [PO] PO 1 mg, administered: 03/27/2020 6:59:00 PMThe following Medications were prescribed to the patient:prednisone 50 mg ta blet Take 1 tablet once a day with meals for 5 days -- Dispense 5 tablet. Refills: 0.Substitution permitted.Pharmacy - [facility] [address] [phone]. FaxNumber: .cyclobenzaprine 10 mg tablet Take 1 tablet three times a day for 3 days -- Dispense 9 tablet. Refills: 0.Substitution permitted.Pharmacy - [facility] - [address] [place] [phone]. .Lidoderm 5 % topical patch Apply 1 patch single dose for 3 days -- Apply patch to area of pain and leaveon no more than 12hrs and remove. You are able to cut to size. Dispense 3 patch. Refills: 0. Substitutionpermitted.Pharmacy - [facility] - [address] [facility] ; [place], [place] [phone]. . -- Yeni Pittman P.A.-C Name Value Range Interpretation Code Description Data Toma e(s) Supporting Document(s) ID Date Data Source [id number] 03/27/2020 04:32:00 PM EDT [place] [address] Medication Administration Record [facility] Emergency Department [address] [place] [address] Phone #: ext [phone] 03/27/2020 16:32 Patient: RINKU WHELAN Sex: M : 1965 Age: 54yWeight: 132.4 kgHeight/Length: 68 inBMI: 44.4ALLERGIES: adhesive talpe, Latex, Codeine Phosphate Date/Time Medication Administered Medication OrderedGiven TORADOL [IM] (KETOROLAC Toradol IM 30 mg18:59 03/27/2020 TROMETHAMINE)Fely Tinajero R.N. Dose: 30 mg IMGiven ATIVAN [PO] (LORAZEPAM) Ativan PO 1 mg18:59 03/27/2020 Dose: 1 mg Tablets Fely Yanez R.N. Name Value Range Interpretation Code Description Data [facility](s) ID Date Data Source [id number] 03/27/2020 04:32:00 PM EDT [facility] 1 General Instructions [facility] Emergency Department [address] [place] [address] Phone #: ext [phone] 03/27/2020 16:32 Patient: RINKU WHELAN Sex: M : 1965 Age: 54yChronic neck pain associated with cervical strain.Chronic nontraumatic thoracic and lumbar back pain associated with muscle strain.INSTRUCTIONSApply heat and ice. No lifting greater than 5 lbs or no bending or stooping for- 1- weeks.No dietary restrictions.(Recommend to utilize OTC Motrin and Tylenol to control inflammation and pain management.Recommend to follow the instructions on the bottle and not to exceed.).Warnings: SEDATIVE MEDICATION: You were given sedative medication during your visit. Do not driveor operate dangerous machinery.GENERAL WARNINGS: Return or contact your physician immediately if your condition worsens orchanges unexpectedly, if not improving as expected, or if other problems arise.Prescription Medications:prednisone 50 mg tablet Take 1 tablet once a day with meals for 5 days -- Dispense 5 tablet. Refills: 0.Substitution permitted.[facility] [place] [address]. FaxNumber: .cyclobenzaprine 10 mg tablet Take 1 tablet three times a day for 3 days -- Dispense 9 tablet. Refills: 0.Substitution permitted.[place] [address]. .Lidoderm 5 % topical patch Apply 1 patch single dose for 3 days -- Apply patch to area of pain and leaveon no more than 12hrs and remove. You are able to cut to size. Dispense 3 patch. Refills: 0. Substitutionpermitted.[place] [address]. .Follow-up:Return to the emergency department as needed. Follow up with your healthcare provider in about twodays if not better. Call for an appointment. Follow up with a pain management clinic as scheduled.Understanding of the discharge instructions verbalized by patient. 2 General Instructions [facility] Emergency Department [address] [place] [address] Phone #: ext- [phone] 03/27/2020 16:32 Patient: RINKU WHELAN Sex: M : 1965 Age: 54y ADDITIONAL INFORMATIONNeck Pain There are several possible causes of neck pain when thereis no injury: You can get a minor ligament sprain or muscle strain from a sudden minor neck movement. Sleeping with your neck in an awkward position can also cause this. Some people respond to emotional stress by tensing the muscles of their neck, shoulders, and upper back. Chronic spasm in these muscles can cause neck pain and sometimes headaches. Gradual wear and tear of the joints in the spine can cause degenerative arthritis. This can be a source of occasional or chronic neck pain. The spinal disks may bulge and put pressure on a nearby spinal nerve. This can happen as a natural result of aging or repeated small injuries to the neck. The spinal disks are the cushions between each spinal bone. This causes tingling, pain, or numbness that spreads from the neck to the shoulder, arm, or hand on one side.Acute neck pain usually gets better in 1 to 2 weeks. Neck pain related to disk disease, arthritis in thespinal joints, or spinal stenosis can become chronic and last for months or years. Spinal stenosis isnarrowing of the spinal canal. 3 General Instructions [facility] Emergency Department [address] [place] [address] Phone #: ext- [phone] 03/27/2020 16:32 Patient: RINKU WHELAN Sex: M : 1965 Age: 54yX-rays are usually not ordered for the initial evaluation of neck pain. However, X-rays may be done ifyou had a forceful physical injury, such as a car accident or fall. If pain continues and doesn't respondto medical treatment, X- rays and other tests may be done at a later time.Home care Rest and relax the muscles. Use a comfortable pillow that supports the head. It should also help keep the spine in a neutral position. The position of the head should not be tilted forward or backward. A rolled up towel may help for a custom fit. Some people find relief with heat. Heat can be applied with either a warm shower or bath or a moist towel heated in the microwave and massage. Others prefer cold packs. You can make an ice pack by filling a plastic bag that seals at the top with ice cubes or crushed ice and then wrapping it with a thin towel. Try both and use the method that feels best for 15 to 20 minutes, several times a day. Whether using ice or heat, be careful that you do not injure your skin. Never put ice directly on the skin. Always wrap the ice in a towel or other type of cloth.This is very important, especially in people with poo r skin sensations. Try to reduce your stress level. Emotional stress can lead to neck muscle tension and get in the way of or delay the healing process. You may use bube-cef-yseaeou pain medicine to control pain, unless another medicine was prescribed. If you have chronic liver or kidney disease or ever had a stomach ulcer or GI bleeding, talk with your healthcare provider before using these medicines.Follow-up careFollow up with your healthcare provider if your symptoms do not show signs of improvement after oneweek. Physical therapy or further tests may be needed.If X-rays, CT scans, or MRI scans were taken, you will be told of any new findings that may affectyour care.Call [phone] if you have: Sudden weakness or numbness in one or both arms Neck swelling, difficulty or painful swallowing Difficulty breathing Chest pain 4 General Instructions [facility] Emergency Department [address] [place] [address] Phone #: [phone]- [phone] 03/27/2020 16:32 Patient: [id number] Sex: M : 1965 Age: 54yWhen to seek medical adviceCall your healthcare provider right away if any of these occur: Pain becomes worse or spreads into one or both arm Increasing headache Fever of 100.4F (38C) or higher, or as directed by your healthcare provider [phone] [employer]. [address] [place] [address]. All rights reserved. This information is not intended as asubstitute for professional medical care. Always follow your healthcare professional's instructions.Pinched Nerve in the NeckA pinched nerve in the neck (cervical radiculopathy) is caused when the nerve that goes from thespinal cord to the neck or arm is irritated or has pressure on it. This may be caused by a bulgingspinal disk. A spinal disk is the cushion between each spinal bone. Or it may be caused by anarrowing of the spinal joint because of osteoarthritis and wear and tear from repeated injuries.A pinched nerve can cause numbness, tingling, deep aching, or electrical shooting pain from the sideof the neck all the way down to the fingers on one side.A pinched nerve may start after a sudden turning or bending force (such as in a car accident) or aftera simple awkward movement. In either case, muscle spasm is commonly present and adds to thepain.Home careFollow these guidelines when caring for yourself at home: Rest and relax the muscles. Use a comfortable pillow that supports your head and keeps your spine in a natural (neutral) position. Your head shouldn't be tilted forward or backward. A rolled-up towel may help for a custom fit. When standing or sitting, keep your neck in line with your body. Keep your head up and shoulders down. Stay away from activities that require you to move your neck a lot. You can use heat and massage to help ease the pain. Take a hot shower or bath, or use a heating pad. You can also use a cold pack for relief. You can make a cold pack by wrapping a plastic bag of crushed or cubed ice in a thin towel. Try both heat and cold, and use the method that feels best. Do this for 20 minutes several times a day. You may use acetaminophen or ibuprofen to control pain, unless another pain medicine was prescribed. If you have chronic liver or kidney disease, talk with your healthcare provider before using these medicines. Also talk with your provider if you've had a stomach ulcer or gastrointestinal bleeding. 5 General Instructions [facility] Emergency Department [address] [place] [address] Phone #: ext- [phone] 03/27/2020 16:32 Patient: RINKU WHELAN Sex: M : 1965 Age: 54y Reduce stress. Stress can make it longer for your pain to go away. Do any exercises or stretches that were given to you as part of your discharge plan. Wear a soft collar, if prescribed. Physical therapy and massages are known to help. You may need surgery for a more serious injury.Follow-up careFollow up with your healthcare provider, or as advised, if you don't start to get better after 1 week.You may need more irlanda ts. Tell your provider about any fever, chills, or weight loss.If X-rays were taken, a radiologist may look at them. You will be told of any new findings that mayaffect your care.When to seek medical adviceCall your healthcare provider right away if any of these occur: Pain becomes worse even after taking prescribed pain medicine Weakness in the arm or legs Numbness in the arm gets worse Trouble breathing or swallowing [id number] [employer]. [address] [place] [address]. All rights reserved. This information is not intended as asubstitute for professional medical care. Always follow your healthcare professional's instructions.Back Pain (Acute or Chronic) 6 General Instructions [facility] Emergency Department [address] [place] [address] Phone #: ext- [phone] 03/27/2020 16:32 Patient: RINKU WHELAN Sex: M : 1965 Age: 54y Back pain is one of the most common problems. The good news is that most people feel better in 1 to2 weeks, and most of the rest in 1 to 2 months. Most people can remain active.People who have pain describe it differently--not everyone is the same. The pain can be sharp, stabbing, shooting, aching, cramping or burning. Movement, standing, bending, lifting, sitting, or walking may worsen pain. It can be localized to one spot or area, or it can be more generalized. It can spread or radiate upwards, to the front, or go down your arms or legs (sciatica). It can cause muscle spasm.Most of the time, mechanical problems with the muscles or spine cause the pain. Mechanicalproblems are usually caused by an injury to the muscles or ligaments. While illness can cause backpain, it is usually not caused by a serious illness. Mechanical problems include: 7 General Instructions [facility] Emergency Department [address] [place] [address] Phone #: ext- [phone] 03/27/2020 16:32 Patient: RINKU WHELAN Sex: M : 1965 Age: 54y Physical activity such as sports, exercise, work, or normal activity Overexertion, lifting, pushing, pulling incorrectly or too aggressively Sudden twisting, bending, or stretching from an accident, or accidental movement Poor posture Stretching or moving wrong, without noticing pain at the time Poor coordination, lack of regular exercise (check with your doctor about this) Spinal disc disease or arthritis StressPain can also be related to , or illness like appendicitis, bladder or kidney infections, pelvicinfections, and many other things.Acute back pain usually gets better in 1 to 2 weeks. Back pain related to disk disease, arthritis in thespinal joints or spinal stenosis (narrowing of the spinal canal) can become chronic and last for monthsor years.Unless you had a physical injury (for example, a car accident or fall) X-rays are usually not needed forthe initial evaluation of back pain. If pain continues and does not respond to medical treatment,X-rays and other tests may be needed.Home careTry these home care recommendations: When in bed, try to find a position of comfort. A firm mattress is best. Try lying flat on your back with pillows under your knees. You can also try lying on your side with your knees bent up towards your chest and a pillow between your knees. At first, do not try to stretch out the sore spots. If there is a strain, it is not like the good soreness you get after exercising without an injury. In this case, stretching may make it worse. Don't sit for long periods, as in a long car ride or during other travel. This puts more stress on the lower back than standing or walking. During the first 24 to 72 hours after an acute injury or flare up of chronic back pain, apply an ice pack to the painful area for 20 minutes and then fortunato ve it for 20 minutes. Do this over a period of 60 to 90 minutes or several times a day. This will reduce swelling and pain. Wrap the ice pack in a thin towel or plastic to protect your skin. You can start with ice, then switch to heat. Heat (hot shower, hot bath, or heating pad) reduces pain and works well for muscle spasms. Heat can be applied to the painful area for 20 8 General Instructions [facility] Emergency Department [address] [place] [address] Phone #: ext- [phone] 03/27/2020 16:32 Patient: RINKU WHELAN Sex: García : 1965 Age: 54y minutes then remove it for 20 minutes. Do this over a period of 60 to 90 minutes or several times a day. Do not sleep on a heating pad. It can lead to skin tate or tissue damage. You can alternate ice and heat therapy. Talk with your doctor about the best treatment for your back pain. Therapeutic massage can help relax the back muscles without stretching them. Be aware of safe lifting methods and do not lift anything without stretching first.MedicinesTalk to your doctor before using medicine, especially if you have other medical problems or are takingother medicines. You may use cgjw-fir-bspabjz medicine as directed on the bottle to control pain, unless another pain medicine was prescribed. If you have chronic conditions like diabetes, liver or kidney disease, stomach ulcers, or gastrointestinal bleeding, or are taking blood thinners, talk to your doctor before taking any medicine. Be careful if you are given a prescription medicines, narcotics, or medicine for muscle spasms. They can cause drowsiness, affect your coordination, reflexes, and judgement. Do not drive or operate heavy machinery.Follow-up careFollow up with your healthcare provider, or as advised.A radiologist will review any X-rays that were taken. Your provide will notify you of any new findingsthat may affect your care.Call [phone] if any of the following occur: Trouble breathing Confusion Very drowsy or trouble awakening Fainting or loss of consciousness Rapid or very slow heart rate Loss of bowel or bladder control 9 General Instructions [facility] Emergency Department [address] [place] [address] Phone #: ext- [phone] 03/27/2020 16:32 Patient: RINKU WHELAN Sex: García : 1965 Age: 54yWhen to seek medical adviceCall your healthcare provider right away if any of these occur: Pain becomes worse or spreads to your legs Weakness or numbness in one or both legs Numbness in the groin or genital area [id number] [employer]. [address] [place] [address], [place] [address]. All rights reserved. This information is not intended as asubstitute for professional medical care. Always follow your healthcare professional's instructions.Back Spasm (No Trauma)Spasm of the back muscles can occur after a sudden forceful twisting or bending force (such as in acar accident), after a simple awkward movement, or after lifting something heavy with poor body 10 General Instructions [facility] Department [address] [place] [address] Phone #: ext- [phone] 03/27/2020 16:32 Patient: [id number] Sex: M : 1965 Age: 54ypositioning. In any case, muscle spasm adds to the pain. Sleeping in an awkward position or on apoor quality mattress can also cause this. Some people respond to emotional stress by tensing themuscles of their back.Pain that continues may need further evaluation or other types of treatment such as physical therapy.You don't always need X-rays for the initial evaluation of back pain, unless you had a physical injurysuch as from a car accident or fall. If your pain continues and doesn't respond to medical treatment,X-rays and other tests may then be done.Home care As soon as possible, start sitting or walking again to avoid problems from prolonged bed rest (muscle weakness, worsening back stiffness and pain, blood clots in the legs). When in bed, try to find a position of comfort. A firm mattress is best. Try lying flat on your back with pillows under your knees. You can also try lying on your side with your knees bent up toward your chest and a pillow between your knees. Avoid prolonged sitting, long car rides, or travel. This puts more stress on the lower back than standing or walking. During the first 24 to 72 hours after an injury or flare-up, apply an ice pack to the painful area for 20 minutes, then remove it for 20 minutes. Do this over a period of 60 to 90 minutes or several times a day. This will reduce swelling and pain. Always wrap ice packs in a thin towel. You can start with ice, then switch to heat. Heat (hot shower, hot bath, or heating pad) reduces pain, and works well for muscle spasms. Apply heat to the painful area for 20 minutes, then remove it for 20 minutes. Do this over a period of 60 to 90 minutes or several times a day. Do not sleep on a heating pad as it can burn or damage skin. Alternate ice and heat therapies. Be aware of safe lifting methods and do not lift anything over 15 pounds until all the pain is gone.G entle stretching will help your back heal faster. Do this simple routine 2 to 3 times a day until yourback is feeling better. Lie on your back with your knees bent and both feet on the ground Slowly raise your left knee to your chest as you flatten your lower back against the floor. Hold for 20 to 30 seconds. Relax and repeat the exercise with your right knee. Do 2 to 3 of these exercises for each leg. 11 General Instructions [facility] Emergency Department [address] [place] [address] Phone #: ext- [phone] 03/27/2020 16:32 Patient: RINKU WHELAN Sex: M : 1965 Age: 54y Repeat, hugging both knees to your chest at the same time. Do not bounce, but use a gentle pull.MedicinesTalk to your doctor before using medicine, especially if you have other medical problems or are takingother medicines.You may use acetaminophen or ibuprofen to control pain, unless your healthcare provider prescribedanother pain medicine. If you have a chronic condition such as diabetes, liver or kidney disease,stomach ulcer, or gastrointestinal bleeding, or are taking blood thinners, talk with your healthcareprovider before taking any medicines.Be careful if you are given prescription pain medicine, narcotics, or medicine for muscle spasm. Theycan cause drowsiness, affect your coordination, reflexes, or judgment. Do not drive or operate heavymachinery when taking these medicines. Take pain medicine only as prescribed by your healthcareprovider.Follow-up careFollow up with your doctor, or as advised. Physical therapy or further tests may be needed.If X-rays were taken, they may be reviewed by a radiologist. You will be notified of any new findingsthat may affect your care.Call [phone] if any of these occur: Trouble breathing Confusion Drowsiness or trouble awakening Fainting or loss of consciousness Rapid or very slow heart rate Loss of bowel or bladder controlWhen to seek medical adviceCall your healthcare provider right away if any of these occur: Pain becomes worse or spreads to your legs 12 General Instructions [facility] Department [address] [place] [address] Phone #: [phone] 03/27/2020 16:32 -- Patient: RINKU WHELAN Sex: M : 1965 Age: 54y Weakness or numbness in one or both legs Numbness in the groin or genital area Fever of 100.4F (38C) or higher, or as directed by your healthcare provider Burning or pain when passing urine [phone] [employer]. [address] [place] [address], [place] [address]. All rights reserved. This information is not intended as asubstitute for professional medical care. Always follow your healthcare professional's instructions.Back Care TipsCaring for your backThese are things you can do to prevent a recurrence of acute back pain and to reduce symptomsfrom chronic back pain: 13 General Instructions [facility] Department [address] [place] [address] Phone #: ext- [phone] 03/27/2020 16:32 Patient: RINKU WHELAN [facility]#: [id number] Sex: M : 1965 Age: 54y Maintain a healthy weight. If you are overweight, losing weight will help most t ypes of back pain. Exercise is an important part of recovery from most types of back pain. The muscles behind and in front of the spine support the back. This means strengthening both the back muscles and the abdominal muscles will provide better support for your spine. Swimming and brisk walking are good overall exercises to improve your fitness level. Practice safe lifting methods (below). Practice good posture when sitting, standing and walking. Avoid prolonged sitting. This puts more stress on the lower back than standing or walking. Wear quality shoes with sufficient arch support. Foot and ankle alignment can affect back symptoms. Women should avoid wearing high heels. Therapeutic massage can help relax the back muscles without stretching them. During the first 24 to 72 hours after an acute injury or flare-up of chronic back pain, apply an ice pack to the painful area for 20 minutes and then remove it for 20 minutes, over a period of 60 to 90 minutes, or several times a day. As a safety precaution, do not use a heating pad at bedtime. Sleeping on a heating pad can lead to skin tate or tissue damage. You can alternate ice and heat therapies.MedicinesTalk to your healthcare provider before using medicines, especially if you have other medicalproblems or are taking other medicines. You may use acetaminophen or ibuprofen to control pain, unless your healthcare provider prescribed other pain medicine. If you have chronic conditions like diabetes, liver or kidney disease, stomach ulcers, or gastrointestinal bleeding, or are taking blood thinners, talk with your healthcare provider before taking any medicines. Be careful if you are given prescription pain medicines, narcotics, or medicine for muscle spasm. They can cause drowsiness, affect your coordination, reflexes, and judgment. Do not drive or operate heavy machinery while taking these types of medicines. Take prescription pain medicine only as prescribed by your healthcare provider.Lumbar stretchHere is a simple stretching exercise that will help relax muscle spasm and keep your back morelimber. If exercise makes your back pain worse, don't do it. 14 General Instructions [facility] Department [address] [place] [address], [place] [address] Phone #: ext- [phone] 03/27/2020 16:32 Patient: RINKU WHELAN Sex: M : 1965 Age: 54y Lie on your back with your knees bent and both feet on the ground. S lowly raise your left knee to your chest as you flatten your lower back against the floor. Hold for 5 seconds. Relax and repeat the exercise with your right knee. Do 10 of these exercises for each leg.Safe lifting method Don't bend over at the waist to lift an object off the floor. Instead, bend your knees and hips in a squat. Keep your back and head upright Hold the object close to your body, directly in front of you. Straighten your legs to lift the object. Lower the object to the floor in the reverse fashion. If you must slide something across the floor, push it.Posture tipsSittingSit in chairs with straight backs or low-back support. Keep your knees lower than your hips, with yourfeet flat on the floor.When driving, sit up straight. Adjust the seat forward so you are not leaning toward the steeringwheel. A small pillow or rolled towel behind your lower back may help if you are driving longdistances.StandingWhen standing for long periods, shift mos t of your weight to one leg at a time. Alternate legs everyfew minutes.SleepingThe best way to sleep is on your side with your knees bent. Put a low pillow under your head tosupport your neck in a neutral spine position. Avoid thick pillows that bend your neck to one side. Puta pillow between your legs to further relax your lower back. If you sleep on your back, put pillowsunder your knees to support your legs in a slightly flexed position. Use a firm mattress. If yourmattress sags, replace it, or use a 1/2-inch plywood board under the mattress to add support. 15 General Instructions [facility] Department [address] [place] [address] Phone #: ext- [phone] 03/27/2020 16:32 Patient: RINKU WHELAN Sex: M : 1965 Age: 54yFollow-up careFollow up with your healthcare provider, or as advised.If X-rays, a CT scan or an MRI scan were taken, they will be reviewed by a radiologist. You will benotified of any new findings that may affect your care.Call 911Call 911 if any of the following occur: Trouble breathing Confusion Very drowsy Fainting or loss of consciousness Rapid or very slow heart rate Loss of bowel or bladder controlWhen to seek medical adviceCall your healthcare provider right away if any of the following occur: Pain becomes worse or spreads to your arms or legs Weakness or numbness in one or both arms or legs Numbness in the groin area [phone] [employer]. [address] [place] [address]. All rights reserved. This information is not intended as asubstitute for professional medical care. Always follow your healthcare professional's instructions.Exercises to Strengthen Your Lower BackStrong lower back and abdominal muscles work together to support your spine. The exercises belowwill help strengthen the lower back. It is important that you begin exercising slowly and increaselevels gradually.Always begin any exercise program with stretching. If you feel pain while doing any of theseexercises, stop and talk to your doctor about a more specific exercise program that better suits yourcondition.Low back stretch 16 General Instructions [facility] Department [address] [place] [address] Phone #: ext- [phone] 03/27/2020 16:32 Patient: RINKU WHELAN [facility]#: [id number] Sex: M : 1965 Age: 54yThe point of stretching is to make you more flexible and increase your range of motion. Stretch onlyas much as you are able. Stretch slowly. Do not push your stretch to the limit. If at any point you feelpain while stretching, this is your (temporary) limit. Lie on your back with your knees bent and both feet on the ground. Slowly raise your left knee to your chest as you flatten your lower back against the floor. Hold for 5 seconds. Relax and repeat the exercise with your right knee. Do 10 of these exercises for each leg. Repeat hugging both knees to your chest at the same time.Building lower back strengthStart your exercise routine with 10 to 30 minutes a day, 1 to 3 times a day.Initial exercisesLying on your back:1. Ankle pumps: Move your foot up and down, towards your head, and then away. Repeat 10 times with each foot.2. Heel slides: Slowly bend your knee, drawing the heel of your foot towards you. Then slide your heel/foot from you, straightening your knee. Do not lift your foot off the floor (this is not a leg lift).3. Abdominal contraction: Bend your knees and put your hands on your stomach. Tighten your stomach muscles. Hold for 5 seconds, then relax. Repeat 10 times.4. Straight leg raise: Bend one leg at the knee and keep the other leg straight. Tighten your stomach muscles. Slowly lift your straight leg 6 to 12 inches off the floor and hold for up to 5 seconds. Repeat 10 times on each side.Standin. Wall squats: Stand with your back against the wall. Move your feet about 12 inches away from the wall. Tighten your stomach muscles, and slowly bend your knees until they are at about a 45 degree angle. Do not go down too far. Hold about 5 seconds. Then slowly return to your starting position. Repeat 10 times.2. Heel raises: Stand facing the wall. Slowly raise the heels of your feet up and down, while keeping your toes on the floor. If you have trouble balancing, you can touch the wall with your hands. Repeat 10 times. 17 General Instructions [facility] Department [address] [place] [address] Phone #: ext- [phone] 03/27/2020 16:32 Patient: RINKU WHELAN Sex: M : 1965 Age: 54yMore advanced exercisesWhen you feel comfortable enough, try these exercises. 1. Kneeling lumbar extension: Begin on your hands and knees. At the same time, raise and straighten your right arm and left leg until they are parallel to the ground. Hold for 2 seconds and come back slowly to a starting position. Repeat with left arm and right leg, alternating 10 times. 2. Prone lumbar extension: Lie face down, arms extended overhead, palms on the floor. At the same time, raise your right arm and left leg as high as comfortably possible. Hold for 10 seconds and slowly return to start. Repeat with left arm and right leg, alternating 10 times. Gradually build up to 20 times. (Advanced: Repeat this exercise raising both arms and both legs a few inches off the floor at the same time. Hold for 5 seconds and release.) 3. Pelvic tilt: Lie on the floor on your back with your knees bent at 90 degrees. Your feet should be flat on the floor. Inhale, exhale, then slowly contract your abdominal muscles bringing your navel toward your spine. Let your pelvis rock back until your lower back is flat on the floor. Hold for 10 seconds while breathing smoothly. 4. Abdominal crunch: Perform a pelvic tilt (above) flattening your lower back against the floor. Holding the tension in your abdominal muscles, take another breath and raise your shoulder blades off the ground (this is not a full sit-up). Keep your head in line with your body (don't bend your neck forward). Hold for 2 seconds, then slowly lower. [id number] [employer]. [address] [place] [address], [place] [address]. All rights reserved. This information is not intended as asubstitute for professional medical care. Always follow your healthcare professional's instructions. You have been given the following additional information: Neck Pain Radiculopathy, Cervical Back Pain (Acute or Chronic) Back Spasm, No Trauma Back Care Tips Back Exercises, Lumbar No lifting greater than 5 lbs or no bending or stooping for- 1- weeks.(Electronically signed by Yeni Pittman P.A.-C 03/27/2020 20:45) 18 General Instructions [facility] Emergency Department [address] [place] [address] Phone #: ext- [phone] 03/27/2020 16:32 Patient: DINAH WHELANDANIEL Hawthorne Sex: M : 1965 Age: 54y Name Value Range Interpretation Code Description Data Toma rce(s) Supporting Document(s) ID Date Data Source [id number] 03/27/2020 04:32:00 PM EDT [facility] 1 Clinical Report - Nurses [facility] Emergency Department [address] [place] [address] Phone #: ext- [phone] 03/27/2020 16:32 Patient: DINAH WHELANDANIEL Hawthorne Sex: M : 1965 Age: 54yTRIAGEArrived by EMS. Historian: patient. Unaccompanied. ( pain from neck to lower back with spasmsstarted at 6am states he has has back issues in past, em[facility] because they do not give him things to help his pain, also ems stated that ptwalked down 8 flights of steps and walked to ambulance).Acuity: LEVEL 3.Chief Complaint: BACK PAIN.Alert. No acute distress.This started today. He has had trouble walking. 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 Sepsis Screen negative. No suspected or confirmed signs ofinfection present. --16:53 03/27/20 Deborah Fernández R.N.16:40 03/27/20. BP: 152/86. MAP: 108. HR: 75. RR: 20. O2 saturation: 96% on room air. Temp: 98.1 F(oral). Pain level now: 07/14. --16:53 03/27/20 Deborah Fernández R.N.Weight: 132.4 kg stated. Height/Length: 68 inches Per Patient. BMI: 44.4. --16:39 03/27/20 Deborah Fernández R.N.MedicationsTopiramate Oral (Tablet 50 mg), 3x a day. --16:43 03/27/20 Marine Fernández R.N. Atorvastatin Calcium Oral (Tablet 40 mg), daily. --16:43 03/27/20 Deborah Fernández R.N. busPIRone HCl Oral (Tablet 10 mg), daily. --16:43 03/27/20 Deborah Fernández R.N. Cetirizine HCl Oral (Capsule 10 mg), daily. --16:44 03/27/20 Deborah Fernández R.N. Escitalopram Oxalate Oral 30mg, daily at bedtime. --16:45 03/27/20 Deborah Fernández R.N. Gabapentin Oral (Tablet 600 mg) 1 tablet, 3x a day. --16:45 03/27/20 Deborah Fernández R.N. Levothyroxine Sodium Oral (Tablet 25 mcg), daily. --16:45 03/27/20 Deborah Fernández R.N. Metoprolol Tartrate Oral (Tablet 25 mg) 1 tablet, daily. --16:45 03/27/20 Deborah Fernández R.N. Montelukast Sodium Oral (Tablet 10 mg), daily. --16:46 03/27/20 Deborah Fernández R.N. Aspirin 81 Oral. --16:46 03/27/20 Deborah Fernández R.N. Omeprazole Oral (Capsule Delayed Release 40 mg), daily. --16:46 03/27/20 Deborah Fernández R.N.AllergiesCodeine Phosphate.(hives) --16:42 03/27/20 Deborah Fernández R.N.Latex. --16:42 03/27/20 Deborah Fernández R.N. 2 Clinical Report - Nurses [facility] Emergency Department [address] [place] [address] Phone #: ext- [phone] 03/27/2020 16:32 Patient: RINKU WHELAN Sex: M : 1965 Age: 54yadhesidianna martinez. --16:42 03/27/20 Deborah Fernández R.N.PROBLEMS:Obesity.Hypercholesterolemia.Hypothyroidism.Back Pain. --16:48 03/27/20 Deborah Fernández R.N.ADDITIONAL SURGERIES:Carpal Tunnel Surgery.Finger rem forrest.Heart bypass.Screw in toe. --16:48 03/27/20 Deborah Fernández R.N.HistoryPAST MEDICAL HX: Immunizations: up-to-date.SOCIAL HX: Smoker- current status unknown (quit 6 years ago). Alcohol use. (quit 8 years ago). Nodrug use. He was offered HIV testing but declined and hepatitis C testing but declined. He has nottraveled outside the [place]Infectious disease exposure: No infectious disease exposure. Patient is not a known carrier of tuberculosis,hepatitis, HIV, MRSA or VRE. Patient is not a known carrier of CRE.SELF HARM ASSESSMENT: Self harm assessment was performed. The patient answered "no" to thequestion(s) "Have you recently felt down, depressed, or hopeless?", "Do you have thoughts of harming orkilling yourself?", "Do you have a plan for harming or killing yourself?", "Have you recently had thoughtsabout harming or killing others?", "Do you have any dangerous items in your possession?", "Have younoticed less interest or pleasure in doing things?", "Are you here because you tried to hurt yourself?" and"Have you ever tried to hurt yourself before today?".ABUSE ASSESSMENT: Abuse assessment. Abuse denied. No suspicion of abuse. No report of abuse.NUTRITIONAL RISK ASSESSMENT: The nutritional risk assessment revealed no deficiencies.FUNCTIONAL ASSESSMENT: Functional assessment: no impairments noted.LEARNING NEEDS ASSESSMENT: The learning needs assessment revealed no barriers.FALL RISK ASSESSMENT: Fall risk assessment completed. No risk factors identified.SKIN INTEGRITY ASSESSMENT: Skin integrity risk assessment completed. No skin integrity riskidentified. --16:53 03/27/20 Deborah Fernández R.N.InterventionsIdentification band on patient. To treatment room. --16:53 03/27/20 Deborah Fernández R.N. 3 Clinical Report - Nurses [facility] Emergency Department [address] [place] [address] Phone #: ext- [phone] 03/27/2020 16:32 Patient: RINKU WHELAN Sex: M : 1965 Age: 54yPHYSICAL ASSESSMENTGENERAL / NEURO / PSYCH: Alert. Oriented X 4.RESPIRATORY: Respirations not labored.GI / : Bowel sounds within normal limits.EXTREMITIES: ROM of extremities within normal limits.BACK: Normal inspection of the neck and back. No neck or back tenderness. ROM of neck and backwithin normal limits. --19:00 03/27/20 Fely Tinajero R.N.NURSING PROGRESS NOTESPatient ID band checked for patient name and birthdate: patient confirmed. Instructions provided to collectclean catch urine and patient verbalized understanding. Clean catch urine collected; sample sent to lab fordrug screen. Specimen labeled in the presence of the patient. --17:46 03/27/20 Deborah Fernández R.N. 17:59 03/27/20. BP: 145/78. MAP: 100. HR: 88. RR: 18. O2 saturation: 97%. --17:59 03/27/20 Deborah Fernández R.N. 17:30 03/27/20. ( waiting on bed at present pt informed). --17:59 03/27/20 Deborah Fernández R.N. 18:59 03/27/2020 Toradol (Ketorolac Tromethamine) IM 30 mg given. Given in the right deltoid. Allergies verified and confirmed 5 rights. Information reviewed with patient. Verbalizes understanding. --18:59 03/27/20 Fely Tinajero R.N. 18:59 03/27/2020 Ativan (LORazepam) PO Tablets 1 mg given. Allergies verified and confirmed 5 rights. Information reviewed with patient. Verbalizes understanding. --18:59 03/27/20 Fely Tinajero R.N.DISPOSITION / DISCHARGE No learning barriers present. Discharge instructions provided and reviewed with the patient. Reviewed medication(s). Patient verbalized understanding. Written instructions provided in Nigerian. The patient was discharged home. He left ambulatory. --19:41 03/27/20 Fely Tinajero R.N. 19:40 03/27/20. BP: 140/74. HR: 80. RR: 18. O2 saturation: 97%. Temp: 98.0 F. Pain level now 0/10. --19:41 03/27/20 Fely Tinajero R.N.Locked/Released at 03/27/2020 19:46 by Fely Tinajero R.N. Name Value Range Interpretation Code Description Data Toma rce(s) Supporting Document(s) ID Date Data Source [id number] 03/27/2020 04:32:00 PM EDT [facility] 1 Clinical Report - Physicians/Mid Levels [facility] Emergency Department [address] [place] [address] Phone #: ext- [phone] 03/27/2020 16:32 Patient: RINKU WHELAN Sex: M : 1965 Age: 54y Time Seen: 18:21 03/27/2020; initial patient contact, initial documentation. Arrived- By ambulance. Historian- patient. Disposition decision: 19:28 03/27/2020.HISTORY OF PRESENT ILLNESS Chief Complaint: NECK PAIN, BACK PAIN and CHRONIC BACK and NECK PAIN. Onset was today and it is still present. It is described as being mild. It is described as being in the area of the left side of the cervical spine, left side of the upper thoracic spine, left side of the mid-thoracic spine, right side of the cervical spine and right side of the upper thoracic spine. It is described as being in the area of the right side of the mid-thoracic spine, left side of the lower thoracic spine, left side of the upper lumbar spine, left side of the lower lumbar spine and right side of the lower thoracic spine. It is described as being in the area of the right side of the upper lumbar spine, left interscapular area and right interscapular area. The quality is noted to be sharp, dull, aching and "pain". No radiation. No bladder dysfunction, bowel dysfunction, sensory loss or motor loss. Additional history - Pt present to the ER via EMS with complaints of back pain from neck to lumbar region. Pt sts that he suffered from chronic back pain and has seen his PCP and PM. Sts that he gets flares from time to time and most recent was last month. Sts that he has appt with PM for surgyer to burn nerve ends on . Pt sts that he woke today with spasms and tightness of atruamatic and insidious onset. No other complaints other than excerbation of chronic back pain. No bladder/bowel dysfuntino. No gait disturbacne. Pt verbalizes dislike for [facility] as he typically goes there and sts he will not go there anymore as they don't tx his pain. Of note, EMS had relayed that stated pt walked down 8 flights of steps and walked to ambulance for pickup. Patient denies an injury. Similar symptoms previously. Recent medical care: The patient was seen recently by a health care provider.REVIEW OF SYSTEMSNo fever, chills, eye discomfort, headache or depression. No sore throat, cough, difficulty breathing, chestpain or skin rash. No abdominal pain, nausea, vomiting, diarrhea or black stools. No difficulty withurination, urinary frequency, hematuria, vaginal discharge or irregular periods. No bloody stools. Allother systems reviewed and are negative.PAST HISTORYSee nurses notes. The patient has had prior back pain and neck pain. 2 Clinical Report - Physicians/Mid Levels [facility] Emergency Department [address] [place] [address] Phone #: ext- [phone] 03/27/2020 16:32 Patient: RINKU WHELAN Sex: M : 1965 Age: 54y Problems: Obesity. Hypercholesterolemia. Hypothyroidism. Additional Surgeries: Carpal Tunnel Surgery. Finger removed. Heart bypass. Screw in toe. Medications: Omeprazole Oral (Capsule Delayed Release 40 mg), daily. Aspirin 81 Oral. Montelukast Sodium Oral (Tablet 10 mg), daily. Metoprolol Tartrate Oral (Tablet 25 mg) 1 tablet, daily. Levothyroxine Sodium Oral (Tablet 25 mcg), daily. Gabapentin Oral (Tablet 600 mg) 1 tablet, 3x a day. Escitalopram Oxalate Oral 30mg, daily at bedtime. Cetirizine HCl Oral (Capsule 10 mg), daily. busPIRone HCl Oral (Tablet 10 mg), daily. Atorvastatin Calcium Oral (Tablet 40 mg), daily. Topiramate Oral (Tablet 50 mg), 3x a day. Allergies: adhesive talpe. Codeine Phosphate.(hives) Latex.SOCIAL HISTORYFormer smoker. Alcohol use. (Stopped drinking). No drug use.ADDITIONAL NOTESThe nursing notes have been reviewed.PHYSICAL EXAMVital Signs: 03/27/2020 16:40 BP: 152/86. MAP: 108. HR: 75. RR: 20. O2 saturation: 96% on room air.Temp: 98.1 F. Pain level now: 07/14. Have been reviewed.Appearance: Alert. No acute distress.ENT: Voice normal.Neck: Normal inspection. Pain in the neck upon movement. Muscle spasm of the neck. Painless ROM.No vertebral tenderness. Soft tissue tenderness.CVS: Normal heart rate and rhythm. No JVD present. Pulses normal. Capillary refill normal. Strongperipheral pulses. Heart sounds normal. Pulses: right radial 2+; left radial 2+; right dorsalis pedis 2+; leftdorsalis pedis 2+; right posterior tibial 2+; left posterior tibial 2+. 3 Clinical Report - Physicians/Mid Levels [facility] Emergency Department [address] [place] [address] Phone #: ext- [phone] 03/27/2020 16:32 Patient: RINKU WHELAN Sex: M : 1965 Age: 54y Respiratory: Chest normal on inspection. No respiratory distress. Unlabored respirations. Lungs clear. Good chest movement. Breath sounds normal and equal. Chest nontender. Back: Soft tissue tenderness. Muscle spasm present. No vertebral point tenderness. Skin: Skin warm and dry. Extremities: Extremities exhibit normal ROM. No lower extremity edema. Extremities nontender. No calf tenderness. Neuro: Awake. Alert. Mood/affect nor mal. Speech normal. No motor deficit. No sensory deficit. Reflexes normal. Reflex exam: right triceps 2+, left triceps 2+, right biceps 2+, left biceps 2+, right brachioradialis 2+, left brachioradialis 2+, right patellar 2+, left patellar 2+, right Achilles 2+ and left Achilles 2+. No Babinski present on the right or left. No clonus present. Psych: Cognition normal. Thought process and content normal. Insight and judgement normal.LABS, X-RAYS, AND EKGC-Spine X- rays: (Terry dangelo Neal - 03/27/2020 7:20:12 PMnad). The X-rays were interpreted by the radiologist.T-Spine X-rays: (Terry dangelo Neal - 03/27/2020 7:20:30 PMnad). The X-rays were interpreted by the radiologist.LS-Spine X-rays: (Terry dangelo Neal - 03/27/2020 7:19:27 PMnad). The X-rays were interpreted by the radiologist.PROGRESS AND PROCEDURESCourse of Care: VSS, NAD, AOx3, interacting well and appropriately, no use of accessory muscle, able tospeak full sentences, stable, non-toxic looking. Enter room and pt lying peacefully in bed in NAD. Patient stable. Denies any new issues, concerns, or complaints. PE dmeos NV intact b/l UE and LE. No neuro deficits noted. Pt demos TTP of various points of back, no spinal tenderness. Pt sts has a chronic hx of back pain and occasional excerbations much similar to today. Voices dislike for [facility]. Reviewed and noted no imaigng at our facility. will attempt to review via Jed. If not, will obtina iamgign to eval and tx currently. Pending results. Reviewed [employer]. This report was requested by: Yeni Pittman Reference #: [id number] Others' Prescriptions Patient Name: Rinku WhelanBirth Date: 1965 Address: [address] [place] [id number]: Male Rx Written Rx Dispensed Drug Quantity Days Supply Prescriber Name Payment Method Dispenser 01/12/2020 01/14/2020 tramadol hcl 50 mg tablet 120 30 Lolis Choudhary NP Medicaid [facility] 12/21/2019 12/29/2019 oxycodone hcl 5 mg tablet 20 3 [facility]llano [facility] 11/22/2019 11/22/2019 tramadol hcl 50 mg tablet 120 30 Winifred Greco Medicaid [facility] 09/23/2019 11/15/2019 tramadol hcl 50 mg tablet 28 7 Winifred Greco Medicaid [facility] 4 Clinical Report - Physicians/Mid Levels [facility] Emergency Department [address] [place] [address] Phone #: ext- [phone] 03/27/2020 16:32 Patient: RINKU WHELAN Sex: M : 1965 Age: 54y 09/23/2019 10/28/2019 tramadol hcl 50 mg tablet 28 7 Winifred Greco Medicaid [facility] 10/17/2019 10/19/2019 oxycodone-acetaminophen 5-325 mg tab 10 3 Jose De Jesus Scales Medicaid [facility] 09/23/2019 09/23/2019 tramadol hcl 50 mg tablet 28 7 Winifred Greco Medicaid [facility] 07/12/2019 07/12/2019 tramadol hcl 50 mg tablet 30 10 Winifred Greco Medicaid [facility] 06/13/2019 06/13/2019 tramadol hcl 50 mg tablet 21 7 Winifred Greco Medicaid [facility] 03/30/2019 03/30/2019 hydrocodone- acetaminophen 5-325 mg tablet 20 3 Itzel Irizarry [facility] Medicaid [facility] Reviewed resutls. Was able to review a T and L spine in Nov 2019 from [facility] that demoed degenerative chagnes w/o fracture or dislocations. This is a chronic issue that pt sees PCP and PM and has upcoming appt. No CP, SOB, dyspnea, or palsp. 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 Enter room and patient lying peacefully in bed in NAD. Patient stable. Denies any new issues, concerns, or complaints. Discussed results with pt. Discussed tx plan with pt. Discussed and counseled on stable condition. Discussed importance of a f/u with PCP. Discussed return to ER criteria. Answered their questions. Indicates and verbalizes that they understand, agree, and will comply with above. Denies any new questions or concerns. Patient has capacity to understand. Discharge decision based on the following: patient's condition is stable; patient's exam is stable; social support is adequate; transportation is available; follow-up is available. Discussed of OTC Motrin and Tylenol to control inflammation and pain management. Informed to follow directions on bottle that are appropriate for age and/or weight. Disposition: Discharged home in good and improved condition. Condition: good and stable.CLINICAL IMPRESSION Chronic neck pain associated with cervical strain. Chronic nontraumatic thoracic and lumbar back pain associated with muscle strain.INSTRUCTIONS Apply heat and ice. No lifting greater than 5 lbs or no bending or stooping for- 1- weeks. No dietary restrictions. (Recommend to utilize OTC Motrin and Tylenol to control inflammation and pain management. Recommend to follow the instructions on the bottle and not to exceed.). 5 Clinical Report - Physicians/Mid Levels [facility] Emergency Department [address] [place] [address] Phone #: ext- [phone] 03/27/2020 16:32 Patient: RINKU WHELAN Sex: M : 1965 Age: 54y Warnings: SEDATIVE MEDICATION: You were given sedative medication during your visit. Do not drive or operate dangerous machinery. GENERAL WARNINGS: Return or contact your physician immediately if your condition worsens or changes unexpectedly, if not improving as expected, or if other pro blems arise. Prescription Medications: prednisone 50 mg tablet Take 1 tablet once a day with meals for 5 days -- Dispense 5 tablet. Refills: 0. Substitution permitted. Pharmacy - [facility] - [address] [place] [address] [phone]. . cyclobenzaprine 10 mg tablet Take 1 tablet three times a day for 3 days -- Dispense 9 tablet. Refills: 0. Substitution permitted. Pharmacy - [facility] - [address] [place] [address] [phone]. FaxNumber: [phone]. Lidoderm 5 % topical patch Apply 1 patch single dose for 3 days -- Apply patch to area of pain and leave on no more than 12hrs and remove. You are able to cut to size. Dispense 3 patch. Refills: 0. Substitution permitted. Pharmacy - [facility] - [address] [place] [address] [phone]. . Follow-up: Return to the emergency department as needed. Follow up with your healthcare provider in about two days if not better. Call for an appointment. Follow up with a pain management clinic as scheduled. Understanding of the discharge instructions verbalized by patient.(Electronically signed by Yeni Pittman P.A.-C 03/27/2020 20:45) Name Value Range Interpretation Code Description Data [facility] rce(s) Supporting Document(s) ID Date Data Source [id number] 03/27/2020 06:26:00 PM EDT [facility] Name Value Range Interpretation Code Description Data [facility](s) Supporting Document(s) DRUG SCREEN URINE [facility] URINE DRUG SCREEN Amphetamine [Presence] in Urine by Screen method NEGATIVE NORMAL: N EGATIVE [facility] BARBITURATES NEGATIVE NORMAL: NEGATIVE [facility] BENZO NEGATIVE NORMAL: NEGATIVE [facility] COCAINE NEGATIVE NORMAL: NEGATIVE [facility] Tetrahydrocannabinol [Presence] in Urine NEGATIVE NORMAL: NEGATIVE [facility] OPIATES NEGATIVE NORMAL: NEGATIVE [facility] Phencyclidine [Presence] in Urine by Screen method NEGATIVE NOR MAL: NEGATIVE [facility] \\BLDo\\URINE DRUG SCR EEN INTERPRETATION\\BLDx\\ THE CUTOFFF LEVELS FOR DETECTION ARE FOLLOWS: AMPHETAMINES 1000 ng/ml BARBITUARATES 200 ng/ml BENZODIAZEPINES 100 ng/ml THC 50 ng/ml PHENCYCLIDINE 25 ng/ml OPIATES 300 ng/ml COCAINE 300 ng/ml ALL POSITIVES ARE CONSIDERED PRESUMPTIVE POSITIVE CONFIRMATION WILL BE PERFORMED AT PHYSICIAN REQUEST. ID Date Data Source [id number] 03/27/2020 06:01:00 PM EDT [facility] Name Value Range Interpretation Code Description Data Toma rce(s) Supporting Document(s) UR[facility]ALYSIS [facility]IN[facility] COL[facility] yellow NORMAL: Yellow [facility] CLARITY clear NORMAL: Clear [facility] Specific gravity of Urine by Test strip 1.015 1.001 - 1.030 [facility] pH 6 5 - 9 [facility] al Glucose [Mass/volume] in Urine by Test strip NORM NORMAL: Negat [facility] Bilirubin.total [Presence] in Urine by Test strip NEG NORMAL: Negative [facility] Ketones [Presence] in Urine by Test strip NEG NORMAL: Negative [facility] Protein [Mass/volume] in Urine by Test strip NEG NORMAL: Negat [facility] Nitrite [Presence] in Urine by Test strip NEG NORMAL: Negative [facility] BLOOD NEG NORMAL: Negative [facility] Leukocyte esterase [Presence] in Urine by Test strip NEG HENRY L: Negative [facility] Urobilinogen [Mass/volume] in Urine by Test strip NOR less angela n 1.0 mg/dL [facility] MICROSCOPIC Not Indicate [facility] ID Date Data Source [id number] 03/09/2020 12:00:00 AM EDT [facility] Jose De Jesus Scales MD Patient Name: RE WHELAN [facility] Date of : 1965[address] Date of Exam: 03/09/2020CHALO Samuel [id number]#: Fax: [phone] EXAM: MRI KNEE LEFT WITHOUT CONTRASTCLINICAL INFORMATION: Knee pain.3T multiplanar MRI imaging of the left knee was obtained using varioussequences.There are no prior left knee MRI's for comparison.The anterior and posterior horns of the lateral meniscus are within normallimits. The anterior and posterior horns of the medial meniscus are withinnormal limits. The anterior and posterior cruciate ligaments are intact.The quadriceps and patellar tendons are intact. The medial and lateralcollateral ligaments are intact. The medial and lateral patellarretinacula are intact. There is thinning, irregularity, and fissuringinvolving the patellar articular cartilage. Thinning and irregularity isseen involving the cartilaginous surface of the trochlear groove. There ismedial and lateral compartmental cartilaginous t hinning. There is a slightjoint effusion and a tiny Caldera's cyst. There is a focus of T2 hypersignalseen in the subchondral patella over the lateral facet and a like findinginvolving the anterior lateral femoral condyle in a kissing- type fashion tothe patella.IMPRESSION:1. There is no evidence of acute internal derangement.2. 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 Correlate clinically.3. There is a slight joint effusion and a tiny Caldera's cyst.4. O ther findings as described above.Accredited by the [employer] in MR.GRECIA Mao/Louann you for referring RINKU WHELAN to our office. Electronically Signed - PAUL CHIU DO 03/12/20 10:49 Name Value Range Interpretation Code Description Data Toma rce(s) Supporting Document(s) ID Date Data Source [id number] 01/27/2020 01:27:00 PM EDT [facility] Name Value Range Interpretation Code Description Data Toma rce(s) Supporting Document(s) C reactive protein [Mass/volume] in Serum or Plasma by High sensitivity method 0.42 mg/dL 0.00-0.30 [facility] ([facility]) Erythrocyte sedimentation rate by Westergren method 3 mm/hr 0-20 [facility] ([facility]) ID Date Data Source [id number] 01/27/2020 01:27:00 PM EDT [facility] ([facility]) Name Value Range Interpretation Code Description Data Toma rce(s) Supporting Document(s) Red Blood Count 5.26 10 4.30-6.10 [facility] ([facility]) White Blood Count 10.1 10 4.0-10.0 [facility] ([facility]) Hemoglobin 15.4 g/dL 13.5-17.5 [facility] ([facility]) Hematocrit 48.9 % 42.0-52.0 [facility] ([facility]) Mean Corpuscular Volume 93.0 fl 80.0-96.0 M EDENT ([facility]) Mean Corpuscular Hemoglobin 29.3 pg 27.0-33.0 [facility] ([facility]) Red Cell Distribution Width 15.4 % 11.5-14.5 [facility] ([facility]) Mean Corpuscular HGB Conc 31.5 g/dL 32.0-36.5 [facility] ([facility]) Platelet Count, Automated 249 10 150-450 [facility] ([facility]) Neutrophils % 62.9 % 36.0-66.0 [facility] ([facility] Lymph % 23.7 % 24.0-44.0 [facility] ([facility]) Baso % 0.6 % 0.0-1.0 [facility] ([facility]) Sutter % 9.8 % 0.0-5.0 [facility] ([facility]) Eos % 0.7 % 0.0-3.0 [facility] ([facility]) Immature Granulocyte % 2.3 % 0-3.0 [facility] ([facility]) Nucleated Red Blood Cell % 0.0 % 0-0 MED [facility] ([facility]) Lymph # 2.4 10 1.5-5.0 [facility] ([facility]) Neutrophils # 6.3 10 1.5-8.5 [facility] ([facility]) Sutter # 1.0 10 0.0-0.8 [facility] Eos # 0.1 10 0.0-0.5 [facility] Baso # 0.1 10 0.0-0.2 [facility] ID Date Data Source MAGNESIUM LEVEL 12/16/2019 12:00:00 AM EDT eCW1 ([facility]) Name Value Range Interpretation Code Description Data Toma rce(s) Supporting Document(s) 2.4 1.8-2.4 MAGNESIUM LEVEL eCW1 ([facility]) ID Date Data Source PT & APTT 12/16/2019 12:00:00 AM EDT eCW1 ([facility]) Name Value Range Interpretation Code Description Data Toma rce(s) Supporting Document(s) 13.3 11.8-14.0 PROTHROMBIN TIME eCW1 ([facility]) 1.04 INR eCW1 ([facility]) 30.0 25.0-38.4 PARTIAL THROMBOPLASTIN TI ME eCW1 ([facility]) ID Date Data Source [id number] 12/16/2019 12:00:00 AM EDT eCW1 ([facility]) Name Value Range Interpretation Code Description Data Toma rce(s) Supporting Document(s) Hemoglobin A1c/Hemoglobin.total in Blood 6.1 HEMOGLOBIN A1c eCW1 ([facility]) ID Date Data Source FREE T4 & TSH PANEL 12/16/2019 12:00:00 AM EDT eCW1 ([facility]) Name Value Range Interpretation Code Description Data Toma rce(s) Supporting Document(s) 0.020 0.358-3.740 THYROID STIMULATING HORM ONE eCW1 ([facility]) 1.17 0.76-1.46 FREE T4 eCW1 ([facility]) ID Date Data Source Comprehensive Metabolic Profile (CMP) 12/16/2019 12:00:00 AM EDT eCW1 ([facility]) Name Value Range Interpretation Code Description Data Toma rce(s) Supporting Document(s) 83 70-100 GLUCOSE, FASTING eCW1 ([facility]) 12 7-18 BLOOD UREA NITROGEN eCW1 ([facility]) 1.26 0.70-1.30 CREATININE FOR GFR eCW1 ([facility]) > 60.0 >56 GLOMERULAR FILTRATION RATE eCW 1 ([facility]) 4.6 3.5-5.1 POTASSIUM SERUM eCW1 ([facility]) 142 136-145 SODIUM LEVEL eCW1 ([facility]) 107 98-107 CHLORIDE LEVEL eCW1 ([facility]) 9.4 8.5-10.1 CALCIUM LEVEL eCW1 ([facility]) 30 21-32 CARBON DIOXIDE LEVEL eCW1 ([facility]) 20 7-37 AST/SGOT eCW1 ([facility]) 29 12-78 ALT/SGPT eCW1 ([facility]) 122 45-117 ALKALINE PHOSPHATASE eCW1 ([facility]) 0.4 0.2-1.0 BILIRUBIN,TOTAL eCW1 ([facility]) 7.2 6.4-8.2 TOTAL PROTEIN eCW1 ([facility]) 3.7 3.2-5.2 ALBUMIN eCW1 ([facility] hospital) 1.06 1.00-1.93 ALBUMIN/GLOBULIN RATIO eCW1 ([facility]) ID Date Data Source CBC with Differential 12/16/2019 12:00:00 AM EDT eCW1 ([facility]) Name Value Range Interpretation Code Description Data Toma rce(s) Supporting Document(s) 7.0 4.0-10.0 WHITE BLOOD COUNT eCW1 ([facility]) 5.35 4.30-6.10 RED BLOOD COUNT eCW1 ([facility]) 16.2 13.5-17.5 HEMOGLOBIN eCW1 ([facility]) 93.3 80.0-96.0 MEAN CORPUSCULAR VOLUME e CW1 ([facility]) 30.3 27.0-33.0 MEAN CORPUSCULAR HEMOGLOB IN eCW1 ([facility]) 49.9 42.0-52.0 HEMATOCRIT eCW1 ([facility]) 257 150-450 PLATELET COUNT, AUTOMATED eCW1 ([facility]) 32.5 32.0-36.5 MEAN CORPUSCULAR HGB CONC eCW1 ([facility]) 14.4 11.5-14.5 RED CELL DISTRIBUTION WID TH eCW1 ([facility]) 22.6 24.0-44.0 LYMPH % eCW1 ([facility] hospital) 58.1 36.0-66.0 NEUTROPHILS % eCW1 ([facility]) 17.2 0.0-5.0 MONO % eCW1 ([facility]) 4.1 1.5-8.5 NEUTROPHILS # eCW1 ([facility]) 1.6 0.0-3.0 EOS % eCW1 ([facility]) 0.4 0.0-1.0 BASO % eCW1 ([facility]) 1.6 1.5-5.0 LYMPH # eCW1 ([facility]) 1.2 0.0-0.8 MONO # eCW1 ([facility]) 0.1 0.0-0.5 EOS # eCW1 ([facility] hospital) 0.0 0.0-0.2 BASO # eCW1 ([facility]) ID Date Data Source [id number] 12/12/2019 12:00:00 AM EDT [facility] Catrachita LANDRY Patient Name: SHERIN WHELAN1 [facility] Date of : 1965[place] [address] Date of Exam: 12/12/2019PH#: Fax: [phone] EXAM: MRI FOOT RIGHT WITHOUT CONTRASTPROCEDURE INFORMATION:Exam: MR Right Lower Extremity Other Than Joint Without Contrast; FootExam date and time: 12/12/2019 7:28 AM Age: 54 years oldClinical indication: Pain; Foot; Right, right foot pain x1 month withouttrauma.TECHNIQUE: Imaging protocol: MR of the Right lower extremity withoutcontrast. Exam focused on the foot.COMPARISON: No relevant prior studies available.FINDINGS:Bones and cartilage: Minor focal subcortical cystic change is present atthe medial margin of the first metatarsal head. There is also low-gradeedema signal at the plantar calcaneus immediately distal to the plantarfascia origin. There is mild partial-thickness cartilage loss over thefirst metatarsophalangeal joint notably at the medial metatarsal head. Atype II accessory navicular is present, with early secondary degen erativechanges across the synchondrosis. There is no articular cartilage defect atthe midfoot joints.Joint spaces: Effusions are present at the tibiotalar, posterior subtalar,talonavicular, and first metatarsophalangeal joints. There is no apparentsynovial hypertrophy or irregularity to suggest synovitis.LIGAMENTS:Distal tibiofibular syndesmosis: No evidence of posterior tibiofibularligament tear.Anterior talofibular ligament: The anterior talofibular ligament isincompletely visualized related to the plane of imaging.Posterior talofibular ligament: The posterior talofibular ligament isintact.Calcaneofibular ligament: The calcaneofibular ligament is attenuated but isnot torn.Deltoid ligament complex: Mild edema of the deltoid ligament deep fibers isdemonstrated.Spring ligament complex: The spring ligament is intact.Lisfranc ligament: The Lisfranc ligament is intact.Collateral ligaments of the digits: Mild thickened remodeling of the firstMTP joint medial collateral ligament is demonstrated, with low-gradepericapsular induration. Lateral collateral ligaments are intact.TENDONS:Flexor tendons of foot: Flexor tendons are intact.Tibialis posterior tendon: Insertional tendinopathy involves the tib ialisposterior at the accessory navicular insertion.Peroneal tendons: The peroneal tendons are intact.Extensor tendons of foot: Dorsal extensor tendons are intact.Tibialis anterior tendon: Normal.Achilles tendon: The Achilles tendon is intact.Tarsal canal (Sinus tarsi): Signal within the sinus Tarsi is preserved andsinus Tarsi ligaments are intact.Tarsal tunnel: Prominent veins or varices are present in the tarsal tunnel.There is no secondary evidence of plantar neuritis.Bursae: Trace retrocalcaneal bursitis is present.Plantar fascia: The plantar fascia is intact. There is no fascialthickening or tasha a.IMPRESSION:1. First metatarsophalangeal joint mild primary osteoarthritis, with medialcollateral ligament remodeling.2. 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 Mild sprain of the deltoid ligament deep fibers.4. Small effusions of the tibiotalar, posterior subtalar, talonavicular,and first metatarsophalangeal joints without synovitis.Thank you for allowing us to participate in the care of your patient.Dictated and Authenticated by: Julita Lafleur MD 12/14/2019 2:13 PMEastern Time ([place] & [place])VradV/jmcThank you for referring RINKU WHELAN to our office. Electronically Signed - [facility] 12/14/19 14:37 Name Value Range Interpretation Code Description Data Toma rce(s) Supporting Document(s) Procedure Social History Code Duration Value Status Description Data Source(s ) Smoking 11/17/2020 12:00:00 AM EST Patient is a former smoker completed Patient is a former smoker [facility] ([facility]) Smoking 11/05/2020 12:00:00 AM EST Patient is a former smoker completed Patient is a former smoker [facility] ([facility] ) Smoking 10/09/2020 12:00:00 AM EST Former Smoker completed Former Smoker eCW1 ([facility]) Smoking 10/09/2020 12:00:00 AM EST Former Smoker completed Former Smoker eCW1 ([facility]) Smoking 10/09/2020 12:00:00 AM EST Former Smoker completed Former Smoker eCW1 ([facility]) Smoking 09/24/2020 12:00:00 AM EST Former Smoker completed Former Smoker eCW1 ([facility]) Smoking 09/24/2020 12:00:00 AM EST Former Smoker completed Former Smoker eCW1 ([facility]) Smoking 09/24/2020 12:00:00 AM EST Former Smoker completed Former Smoker eCW1 ([facility]) Smoking 09/24/2020 12:00:00 AM EST Former Smoker completed Former Smoker eCW1 ([facility]) Smoking 09/24/2020 12:00:00 AM EST Former Smoker completed Former Smoker eCW1 ([facility]) Smoking 08/15/2020 12:00:00 AM EST Former Smoker completed Former Smoker eCW1 ([facility]) Smoking 08/15/2020 12:00:00 AM EST Former Smoker completed Former Smoker eCW1 ([facility]) Smoking 08/15/2020 12:00:00 AM EST Former Smoker completed Former Smoker eCW1 ([facility]) Smoking 08/15/2020 12:00:00 AM EST Former Smoker completed Former Smoker eCW1 ([facility]) Smoking 08/15/2020 12:00:00 AM EST Former Smoker completed Former Smoker eCW1 ([facility]) Smoking 08/15/2020 12:00:00 AM EST Former Smoker completed Former Smoker eCW1 ([facility]) Smoking 08/15/2020 12:00:00 AM EST Former Smoker completed Former Smoker eCW1 ([facility]) Smoking 08/15/2020 12:00:00 AM EST Former Smoker completed Former Smoker eCW1 ([facility]) Smoking 08/15/2020 12:00:00 AM EST Former Smoker completed Former Smoker eCW1 ([facility]) Smoking 08/09/2020 12:00:00 AM EST Former Smoker completed Former Smoker eCW1 ([facility]) Smoking 08/09/2020 12:00:00 AM EST Former Smoker completed Former Smoker eCW1 ([facility]) Smoking 08/09/2020 12:00:00 AM EST Former Smoker completed Former Smoker eCW1 ([facility]) Smoking 08/09/2020 12:00:00 AM EST Former Smoker completed Former Smoker eCW1 ([facility]) Smoking 08/09/2020 12:00:00 AM EST Former Smoker completed Former Smoker eCW1 ([facility]) Smoking 08/08/2020 12:00:00 AM EST Former Smoker completed Former Smoker eCW1 ([facility]) Smoking 08/07/2020 12:00:00 AM EST Former Smoker completed Former Smoker eCW1 ([facility]) Smoking 07/26/2020 12:00:00 AM EDT Former Smoker completed Former Smoker eCW1 ([facility]) Smoking 07/17/2020 12:00:00 AM EDT Former Smoker completed Former Smoker eCW1 ([facility]) Smoking 05/16/2020 12:00:00 AM EDT Patient is a former smoker completed Patient is a former smoker [facility] ([facility] ) Smoking 04/24/2020 12:00:00 AM EDT Former Smoker completed Former Smoker eCW1 ([facility]) Smoking 04/24/2020 12:00:00 AM EDT Former Smoker completed Former Smoker eCW1 ([facility]) Smoking 04/24/2020 12:00:00 AM EDT Former Smoker completed Former Smoker eCW1 ([facility]) Smoking 04/17/2020 12:00:00 AM EDT Former Smoker completed Former Smoker eCW1 ([facility]) Smoking 04/17/2020 12:00:00 AM EDT Former Smoker completed Former Smoker eCW1 ([facility]) Smoking 03/12/2020 12:00:00 AM EDT Former Smoker completed Former Smoker eCW1 ([facility]) Smoking 03/12/2020 12:00:00 AM EDT Former Smoker completed Former Smoker eCW1 ([facility]) Smoking 03/12/2020 12:00:00 AM EDT Former Smoker completed Former Smoker eCW1 ([facility]) Smoking 03/12/2020 12:00:00 AM EDT Former Smoker completed Former Smoker eCW1 ([facility]) Smoking 03/05/2020 12:00:00 AM EDT Former Smoker completed Former Smoker eCW1 ([facility]) Smoking 03/05/2020 12:00:00 AM EDT Former Smoker completed Former Smoker eCW1 ([facility]) Vital Signs ID Date Data Source UNK Name Value Range Interpretation Code Description Data Source(s) Body mass index (BMI) [Ratio] 45.6 kg/m2 45.6 k g/m2 [facility] ([facility]) Body height 68 [in_i] 68 [in_i] MED[facility] ([facility]) 5'8" Body weight 300.00 [lb_av] 300.00 [lb_av] MEDEN T ([facility], [facility]) Body temperature 95.1 [degF] 95.1 [degF] [facility] ([facility]) Oxygen saturation in Arterial blood by Pulse oximetry 96 % 96 % [facility] ([facility], [facility]) Respiratory rate 13 /min 13 /min [facility] ( [facility]) Heart rate 58 /min 58 /min [facility] ([facility]) Diastolic blood pressure 61 mm[Hg] 61 mm[Hg] [facility] ([facility], [facility]) Systolic blood pressure 113 mm[Hg] 113 mm[Hg] EDENT ([facility], [facility]) Body temperature 96.7 [degF] 96.7 [degF] [facility] ([facility] ) Body temperature 97.3 [degF] 97.3 [degF] [facility] ([facility] ) Body mass index (BMI) [Ratio] 46.5 kg/m2 46.5 k g/m2 [facility] ([facility] ) Body weight 306.00 [lb_av] 306.00 [lb_av] MEDEN T ([facility] ) Body height 68 [in_i] 68 [in_i] [facility] ([facility] ) 5'8" Body temperature 97.3 [degF] 97.3 [degF] [facility] ([facility]) Body temperature 96.8 [degF] 96.8 [degF] [facility] ([facility]) Diastolic blood pressure 80 mm[Hg] 80 mm[Hg] eCW1 ([facility]) Systolic blood pressure 130 mm[Hg] 130 mm[Hg] e CW1 ([facility]) Body temperature 97 [degF] 97 [degF] eCW1 ([facility]) Respiratory rate 20 /min 20 /min eCW1 ([facility]) Heart rate 90 /min 90 /min eCW1 ([facility]) Body mass index (BMI) [Ratio] 46.52 kg/m2 46.52 kg/m2 eCW1 ([facility]) Body height 68 [in_i] 68 [in_i] eCW1 ([facility]) Body weight 306 [lb_av] 306 [lb_av] eCW1 ([facility]) Diastolic blood pressure 76 mm[Hg] 76 mm[Hg] eCW1 ([facility]) Systolic blood pressure 121 mm[Hg] 121 mm[Hg] e CW1 ([facility]) Body temperature 96.9 [degF] 96.9 [degF] eCW1 ( [facility]) Respiratory rate 18 /min 18 /min eCW1 ([facility]) Heart rate 85 /min 85 /min eCW1 ([facility]) Body mass index (BMI) [Ratio] 46.37 kg/m2 46.37 kg/m2 eCW1 ([facility]) Body height 68 [in_i] 68 [in_i] eCW1 ([facility]) Body weight 305.0 [lb_av] 305.0 [lb_av] eCW1 ([facility]) Diastolic blood pressure 68 mm[Hg] 68 mm[Hg] eCW1 ([facility]) Systolic blood pressure 118 mm[Hg] 118 mm[Hg] e CW1 ([facility]) Body temperature 97.9 [degF] 97.9 [degF] eCW1 ( [facility]) Respiratory rate 18 /min 18 /min eCW1 ([facility]) Heart rate 69 /min 69 /min eCW1 ([facility]) Body mass index (BMI) [Ratio] 45.61 kg/m2 45.61 kg/m2 eCW1 ([facility]) Body height 68 [in_i] 68 [in_i] eCW1 ([facility]) Body weight 300 [lb_av] 300 [lb_av] eCW1 ([facility]) Diastolic blood pressure 68 mm[Hg] 68 mm[Hg] eCW1 ([facility]) Systolic blood pressure 115 mm[Hg] 115 mm[Hg] e CW1 ([facility]) Body temperature 98.4 [degF] 98.4 [degF] eCW1 ( [facility]) Respiratory rate 18 /min 18 /min eCW1 ([facility]) Heart rate 68 /min 68 /min eCW1 ([facility]) Body mass index (BMI) [Ratio] 45.79 kg/m2 45.79 kg/m2 eCW1 ([facility]) Body height 68 [in_i] 68 [in_i] eCW1 ([facility]) Body weight 301.2 [lb_av] 301.2 [lb_av] eCW1 ([facility]) Diastolic blood pressure 80 mm[Hg] 80 mm[Hg] eCW1 ([facility]) Systolic blood pressure 112 mm[Hg] 112 mm[Hg] e CW1 ([facility]) Body temperature 97.9 [degF] 97.9 [degF] eCW1 ( [facility]) Respiratory rate 18 /min 18 /min eCW1 ([facility]) Heart rate 110 /min 110 /min eCW1 ([facility]) Body mass index (BMI) [Ratio] 44.85 kg/m2 44.85 kg/m2 eCW1 ([facility]) Body height 68 [in_i] 68 [in_i] eCW1 ([facility]) Body weight 295 [lb_av] 295 [lb_av] eCW1 ([facility]) Diastolic blood pressure 56 mm[Hg] 56 mm[Hg] eCW1 ([facility]) Systolic blood pressure 113 mm[Hg] 113 mm[Hg] e CW1 ([facility]) Body temperature 97.2 [degF] 97.2 [degF] eCW1 ( [facility]) Respiratory rate 20 /min 20 /min eCW1 ([facility]) Heart rate 78 /min 78 /min eCW1 ([facility]) Body mass index (BMI) [Ratio] 45.21 kg/m2 45.21 kg/m2 eCW1 ([facility]) Body height 68 [in_i] 68 [in_i] eCW1 ([facility]) Body weight 297.4 [lb_av] 297.4 [lb_av] eCW1 ([facility]) Diastolic blood pressure 70 mm[Hg] 70 mm[Hg] eCW1 ([facility]) Systolic blood pressure 104 mm[Hg] 104 mm[Hg] e CW1 ([facility]) Body temperature 98.5 [degF] 98.5 [degF] eCW1 ( [facility]) Respiratory rate 20 /min 20 /min eCW1 ([facility]) Heart rate 99 /min 99 /min eCW1 ([facility]) Body mass index (BMI) [Ratio] 45.21 kg/m2 45.21 kg/m2 eCW1 ([facility]) Body height 68 [in_i] 68 [in_i] eCW1 ([facility]) Body weight 297.4 [lb_av] 297.4 [lb_av] eCW1 ([facility]) Body mass index (BMI) [Ratio] 44.4 kg/m2 44.4 k g/m2 MEDENT ([facility], [facility]) Body height 68 [in_i] 68 [in_i] MEDENT ([facility]) 5'8" Body weight 292.00 [lb_av] 292.00 [lb_av] MEDEN T ([facility]) Body temperature 97.6 [degF] 97.6 [degF] MEDENT ([facility]) Oxygen saturation in Arterial blood by Pulse oximetry 7 % 7 % MED[facility] ([facility]) Respiratory rate 14 /min 14 /min MED[facility] ( [facility]) Heart rate 67 /min 67 /min [facility] ([facility]) Diastolic blood pressure 77 mm[Hg] 77 mm[facility]Hg[facility] Systolic blood pressure 111 mm[Hg] 111 mm[Hg] EDENT ([facility]) Body mass index (BMI) [Ratio] 44.7 kg/m2 44.7 k g/m2 MEDENT ([facility] Heart rate 81 /min 81 /min MED[facility] ([facility] Diastolic blood pressure 94 mm[Hg] 94 mm[Hg[facility] Systolic blood pressure 120 mm[Hg] 120 mm[Hg] [facility] Body weight 294.00 [lb_av] 294.00 [lb_av] MEDEN T ([facility] Body height 68 [in_i] 68 [in_i] MEDENT ([facility] 5'8" Body weight 135.626 kg 135.626 kg MEDENT ([facility], ) Body mass index (BMI) [Ratio] 45.5 kg/m2 45.5 k g/m2 MED[facility] ([facility], ) Body weight 299.00 [lb_av] 299.00 [lb_av] MEDEN T ([facility], ) Body height 68 [in_i] 68 [in_i] [facility], ) 5'8" Body temperature 97.9 [degF] 97.9 [degF] [facility] ([facility]) Oxygen saturation in Arterial blood by Pulse oximetry 96 % 96 % [facility] ([facility]) Room Air Heart rate 78 /min 78 /min [facility] ([facility]) Diastolic blood pressure 80 mm[Hg] 80 mm[Hg] [facility] ([facility]) Systolic blood pressure 118 mm[Hg] 118 mm[Hg] [facility] ([facility]) Body mass index (BMI) [Ratio] 44.7 kg/m2 44.7 k g/m2 [facility]) Body weight 294.00 [lb_av] 294.00 [lb_av] MEDEN T ([facility]) Body height 68 [in_i] 68 [in_i] [facility] ([facility]) 5'8" Body temperature 97.2 [degF] 97.2 [degF] [facility]) Body mass index (BMI) [Ratio] 44.7 kg/m2 44.7 k g/m2 [facility] ([facility]) Body height 68 [in_i] 68 [in_i] [facility] ([facility] [facility], [facility]) 5'8" Body weight 294.00 [lb_av] 294.00 [lb_av] MEDEN T ([facility], [facility]) Body temperature 97.3 [degF] 97.3 [degF] MEDENT ([facility], [facility]) Oxygen saturation in Arterial blood by Pulse oximetry 94 % 94 % [facility] ([facility], [facility]) Respiratory rate 18 /min 18 /min [facility] ( [facility]) Heart rate 74 /min 74 /min [facility] ([facility], [facility]) Diastolic blood pressure 66 mm[Hg] 66 mm[Hg] [facility] ([facility]) Systolic blood pressure 101 mm[Hg] 101 mm[Hg] [facility] ([facility], [facility]) Diastolic blood pressure 72 mm[Hg] 72 mm[Hg] eCW1 ([facility]) Systolic blood pressure 118 mm[Hg] 118 mm[Hg] e CW1 ([facility]) Body temperature 98.2 [degF] 98.2 [degF] eCW1 ( [facility]) Respiratory rate 20 /min 20 /min eCW1 ([facility]) Heart rate 74 /min 74 /min eCW1 ([facility]) Body mass index (BMI) [Ratio] 44.79 kg/m2 44.79 kg/m2 eCW1 ([facility]) Body height 68 [in_i] 68 [in_i] eCW1 ([facility]) Body weight 294.6 [lb_av] 294.6 [lb_av] eCW1 ([facility]) Diastolic blood pressure 65 mm[Hg] 65 mm[Hg] eCW1 ([facility]) Systolic blood pressure 116 mm[Hg] 116 mm[Hg] e CW1 ([facility]) Body temperature 97.5 [degF] 97.5 [degF] eCW1 ( [facility]) Respiratory rate 20 /min 20 /min eCW1 ([facility]) Heart rate 79 /min 79 /min eCW1 ([facility]) Body mass index (BMI) [Ratio] 44.39 kg/m2 44.39 kg/m2 eCW1 ([facility]) Body height 68 [in_i] 68 [in_i] eCW1 ([facility]) Body weight 292 [lb_av] 292 [lb_av] eCW1 ([facility]) Body weight 133.358 kg 133.358 kg MEDENT ([facility], ) Body mass index (BMI) [Ratio] 44.7 kg/m2 44.7 k g/m2 MEDENT ([facility], ) Body weight 294.00 [lb_av] 294.00 [lb_av] MEDEN T ([facility], ) Body height 68 [in_i] 68 [in_i] MEDENT ([facility]) 5'8" Diastolic blood pressure 79 mm[Hg] 79 mm[Hg] eCW1 ([facility]) Systolic blood pressure 123 mm[Hg] 123 mm[Hg] e CW1 ([facility]) Body temperature 98.2 [degF] 98.2 [degF] eCW1 ( [facility]) Respiratory rate 20 /min 20 /min eCW1 ([facility]) Heart rate 71 /min 71 /min eCW1 ([facility]) Body mass index (BMI) [Ratio] 44.97 kg/m2 44.97 kg/m2 eCW1 ([facility]) Body height 68 [in_i] 68 [in_i] eCW1 ([facility]) Body weight 295.8 [lb_av] 295.8 [lb_av] eCW1 ([facility]) Diastolic blood pressure 78 mm[Hg] 78 mm[Hg] eCW1 ([facility]) Systolic blood pressure 120 mm[Hg] 120 mm[Hg] e CW1 ([facility]) Body temperature 97.6 [degF] 97.6 [degF] eCW1 ( [facility]) Respiratory rate 18 /min 18 /min eCW1 ([facility]) Heart rate 87 /min 87 /min eCW1 ([facility]) Body mass index (BMI) [Ratio] 44.97 kg/m2 44.97 kg/m2 eCW1 ([facility]) Body height 68 [in_i] 68 [in_i] eCW1 ([facility]) Body weight 295.8 [lb_av] 295.8 [lb_av] eCW1 ([facility]) Body mass index (BMI) [Ratio] 44.2 kg/m2 44.2 k g/m2 MEDENT ([facility] ) Body weight 291.00 [lb_av] 291.00 [lb_av] MEDEN T ([facility]) Body height 68 [in_i] 68 [in_i] MEDENT ([facility]) 5'8" Body temperature 98.6 [degF] 98.6 [degF] MEDENT ([facility]) Diastolic blood pressure 70 mm[Hg] 70 mm[Hg] eCW1 ([facility]) Systolic blood pressure 122 mm[Hg] 122 mm[Hg] e CW1 ([facility]) Body temperature 98.5 [degF] 98.5 [degF] eCW1 ( [facility]) Respiratory rate 20 /min 20 /min eCW1 ([facility]) Heart rate 94 /min 94 /min eCW1 ([facility]) Body mass index (BMI) [Ratio] 44.39 kg/m2 44.39 kg/m2 eCW1 ([facility]) Body height 68 [in_us] 68 [in_us] eCW1 ([facility]) Body weight Measured 292.0 [lb_av] 292.0 [lb_av ] eCW1 ([facility]) Diastolic blood pressure 78 mm[Hg] 78 mm[Hg] eCW1 ([facility]) Systolic blood pressure 118 mm[Hg] 118 mm[Hg] e CW1 ([facility]) Body temperature 97.4 [degF] 97.4 [degF] eCW1 ( [facility]) Respiratory rate 18 /min 18 /min eCW1 ([facility]) Heart rate 94 /min 94 /min eCW1 ([facility]) Body mass index (BMI) [Ratio] 44.73 kg/m2 44.73 kg/m2 eCW1 ([facility]) Body height 68 [in_us] 68 [in_us] eCW1 ([facility]) Body weight Measured 294.2 [lb_av] 294.2 [lb_av ] eCW1 ([facility]) Diastolic blood pressure 80 mm[Hg] 80 mm[Hg] eCW1 ([facility]) Systolic blood pressure 120 mm[Hg] 120 mm[Hg] e CW1 ([facility]) Body temperature 97.6 [degF] 97.6 [degF] eCW1 ( [facility]) Respiratory rate 20 /min 20 /min eCW1 ([facility]) Heart rate 90 /min 90 /min eCW1 ([facility]) Body mass index (BMI) [Ratio] 44.21 kg/m2 44.21 kg/m2 eCW1 ([facility]) Body height 68 [in_us] 68 [in_us] eCW1 ([facility]) Body weight Measured 290.8 [lb_av] 290.8 [lb_av ] eCW1 ([facility]) Diastolic blood pressure 68 mm[Hg] 68 mm[Hg] eCW1 ([facility]) Systolic blood pressure 110 mm[Hg] 110 mm[Hg] e CW1 ([facility]) Body temperature 97.2 [degF] 97.2 [degF] eCW1 ( [facility]) Respiratory rate 19 /min 19 /min eCW1 ([facility]) Heart rate 72 /min 72 /min eCW1 ([facility]) Body mass index (BMI) [Ratio] 45.82 kg/m2 45.82 kg/m2 eCW1 ([facility]) Body height 68 [in_us] 68 [in_us] eCW1 ([facility]) Body weight Measured 301.4 [lb_av] 301.4 [lb_av ] eCW1 ([facility]) Body temperature 99.0 [degF] 99.0 [degF] MEDENT ([facility]) Diastolic blood pressure 78 mm[Hg] 78 mm[Hg] eCW1 ([facility]) Systolic blood pressure 114 mm[Hg] 114 mm[Hg] e CW1 ([facility]) Body temperature 97.2 [degF] 97.2 [degF] eCW1 ( [facility]) Respiratory rate 18 /min 18 /min eCW1 ([facility]) Heart rate 90 /min 90 /min eCW1 ([facility]) Body mass index (BMI) [Ratio] 45.88 kg/m2 45.88 kg/m2 eCW1 ([facility]) Body height 68 [in_us] 68 [in_us] eCW1 ([facility]) Body weight Measured 301.8 [lb_av] 301.8 [lb_av ] eCW1 ([facility]) Diastolic blood pressure 71 mm[Hg] 71 mm[Hg] eCW1 ([facility]) Systolic blood pressure 137 mm[Hg] 137 mm[Hg] e CW1 ([facility]) Body temperature 97.4 [degF] 97.4 [degF] eCW1 ( [facility]) Respiratory rate 18 /min 18 /min eCW1 ([facility]) Heart rate 80 /min 80 /min eCW1 ([facility]) Body mass index (BMI) [Ratio] 46.55 kg/m2 46.55 kg/m2 eCW1 ([facility]) Body height 68 [in_i] 68 [in_i] eCW1 ([facility]) Body weight 306.2 [lb_av] 306.2 [lb_av] eCW1 ([facility]) Patient Treatment Plan of Care Planned Activity Planned Date Details Description Data Source (s) Fluocinolone Acetonide 0.1 MG/ML Otic Solution [[facility] ic] 08/07/2020 12:00:00 AM EST eCW1 [facility] montelukast 10 MG Oral Tablet [Singulair] 02/03/2020 12:00:00 AM ED T eCW1 ([facility]) Sodium Chloride 0.111 MEQ/ML Nasal [place] [[place] brand of sodium chloride] 01/27/2020 12:00:00 AM EDT eCW1 ([facility]) Dexamethasone 2 MG Oral Tablet 01/27/2020 12:00:00 AM EDT eCW1 ([facility]) Levothyroxine Sodium 0.025 MG Oral Tablet 01/11/2020 12:00:00 AM ED T eCW1 ([facility]) Levothyroxine Sodium 0.025 MG Oral Tablet 01/11/2020 12:00:00 AM ED T eCW1 ([facility]) Levothyroxine Sodium 0.025 MG Oral Tablet 01/11/2020 12:00:00 AM ED T eCW1 ([facility]) Fluticasone Propionate 50 MCG/ACT 01/02/2020 12:00:00 AM EDT eCW1 ([facility]) Fluticasone Propionate 50 MCG/ACT 01/02/2020 12:00:00 AM EDT eCW1 ([facility]) Levothyroxine Sodium 0.05 MG Oral Tablet 12/16/2019 12:00:00 AM EDT eCW1 ([facility]) Levothyroxine Sodium 0.05 MG Oral Tablet 12/16/2019 12:00:00 AM EDT eCW1 ([facility]) Ibuprofen 600 MG Oral Tablet 10/03/2019 12:00:00 AM EST eCW1 ([facility]) Ibuprofen 600 MG Oral Tablet 10/03/2019 12:00:00 AM EST eCW1 ([facility]) Ibuprofen 600 MG Oral Tablet 10/03/2019 12:00:00 AM EST eCW1 ([facility]) [place] Saline Nasal Gel 1 10/03/2019 12:00:00 AM EST eCW1 ([facility]) tramadol hydrochloride 50 MG Oral Tablet 09/23/2019 12:00:00 AM EST eCW1 ([facility]) tramadol hydrochloride 50 MG Oral Tablet 09/23/2019 12:00:00 AM EST eCW1 ([facility]) tramadol hydrochloride 50 MG Oral Tablet 09/23/2019 12:00:00 AM EST eCW1 ([facility]) tramadol hydrochloride 50 MG Oral Tablet 09/23/2019 12:00:00 AM EST eCW1 ([facility]) tramadol hydrochloride 50 MG Oral Tablet 09/23/2019 12:00:00 AM EST eCW1 ([facility]) tramadol hydrochloride 50 MG Oral Tablet 09/23/2019 12:00:00 AM EST eCW1 ([facility]) tramadol hydrochloride 50 MG Oral Tablet 09/23/2019 12:00:00 AM EST eCW1 ([facility]) tramadol hydrochloride 50 MG Oral Tablet 09/23/2019 12:00:00 AM EST eCW1 ([facility]) tramadol hydrochloride 50 MG Oral Tablet 09/23/2019 12:00:00 AM EST eCW1 ([facility])
--- OUTSIDE RECORDS SUMMARY | 2020-11-19 15:27 | CCD ---
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 Cork Name Role Phone DRAZEK, I CATRACHITA PA [...] Unavailable Unavailable Nahun Cardenas MD Unavailable Unavailable Nahnu Cardenas MD Unavailable Unavailable Nahun Cardenas MD [...] Kaleigh PA Unavailable Unavailable CHOUDHARY, H LOLIS ON AIR DIRECTOR Unavailable Unavailable CHOUDHARY, H LOLIS ON AIR DIRECTOR Unavailable Unavailable CHOUDHARY, H LOLIS ON AIR DIRECTOR Unavailable Unavailable CHOUDHARY, H LOLIS ON AIR DIRECTOR Unavailable Unavailable CHOUDHARY, H LOLIS ON AIR DIRECTOR Unavailable Unavailable CHOUDHARY, H LOLIS ON AIR DIRECTOR Unavailable Unavailable CHOUDHARY, H LOLIS ON AIR DIRECTOR Unavailable Unavailable CHOUDHARY, H LOLIS ON AIR DIRECTOR Unavailable Unavailable CHOUDHARY, H LOLIS ON AIR DIRECTOR Unavailable Unavailable CHOUDHARY, H LOLIS ON AIR DIRECTOR Unavailable Unavailable CHOUDHARY, H LOLIS ON AIR DIRECTOR Unavailable Unavailable CHOUDHARY, H LOLIS ON AIR DIRECTOR Unavailable Unavailable CHOUDHARY, H LOLIS ON AIR DIRECTOR Unavailable Unavailable CHOUDHARY, H LOLIS ON AIR DIRECTOR Unavailable Unavailable CHOUDHARY, H LOLIS ON AIR DIRECTOR Unavailable Unavailable CHOUDHARY, H LOLIS ON AIR DIRECTOR Unavailable Unavailable CHOUDHARY, H LOLIS ON AIR DIRECTOR Unavailable Unavailable CHOUDHARY, H LOLIS ON AIR DIRECTOR Unavailable Unavailable CHOUDHARY, H LOLIS ON AIR DIRECTOR Unavailable Unavailable CHOUDHARY, H LOLIS ON AIR DIRECTOR Unavailable Unavailable CHOUDHARY, H LOLIS ON AIR DIRECTOR Unavailable Unavailable CHOUDHARY, H LOLIS ON AIR DIRECTOR Unavailable Unavailable CHOUDHARY, H LOLIS ON AIR DIRECTOR Unavailable Unavailable CHOUDHARY, H LOLIS ON AIR DIRECTOR Unavailable Unavailable CHOUDHARY, H LOLIS ON AIR DIRECTOR Unavailable Unavailable CHOUDHARY, H LOLIS ON AIR DIRECTOR Unavailable Unavailable CHOUDHARY, H LOLIS ON AIR DIRECTOR Unavailable Unavailable CHOUDHARY, H LOLIS ON AIR DIRECTOR Unavailable Unavailable CHOUDHARY, H LOLIS ON AIR DIRECTOR Unavailable Unavailable CHOUDHARY, H LOLIS ON AIR DIRECTOR Unavailable Unavailable CHOUDHARY, H LOLIS ON AIR DIRECTOR Unavailable Unavailable CHOUDHARY, H LOLIS ON AIR DIRECTOR Unavailable Unavailable CHOUDHARY, H LOLIS ON AIR DIRECTOR Unavailable Unavailable CHOUDHARY, H LOLIS ON AIR DIRECTOR Unavailable Unavailable CHOUDHARY, H LOLIS ON AIR DIRECTOR Unavailable Unavailable CHOUDHARY, H LOLIS ON AIR DIRECTOR Unavailable Unavailable CHOUDHARY, H LOLIS ON AIR DIRECTOR Unavailable Unavailable CHOUDHARY, H LOLIS ON AIR DIRECTOR Unavailable Unavailable CHOUDHARY, H LOLIS ON AIR DIRECTOR Unavailable Unavailable CHOUDHARY, H LOLIS ON AIR DIRECTOR Unavailable Unavailable CHOUDHARY, H LOLIS ON AIR DIRECTOR Unavailable Unavailable CHOUDHARY, H LOLIS ON AIR DIRECTOR Unavailable Unavailable CHOUDHARY, H LOLIS ON AIR DIRECTOR Unavailable Unavailable CHOUDHARY, H LOLIS ON AIR DIRECTOR Unavailable Unavailable CHOUDHARY, H LOLIS ON AIR DIRECTOR Unavailable Unavailable CHUODHARY, H LOLIS ON AIR DIRECTOR Unavailable Unavailable CHOUDHARY, H LOLIS ON AIR DIRECTOR Unavailable Unavailable CHOUDHARY, H LOLIS ON AIR DIRECTOR Unavailable Unavailable CHOUDHARY, H LOLIS ON AIR DIRECTOR Unavailable Unavailable CHOUDHARY, H LOLIS ON AIR DIRECTOR Unavailable Unavailable CHOUDHARY, H LOLIS ON AIR DIRECTOR Unavailable Unavailable CHOUDHARY, H LOLIS ON AIR DIRECTOR Unavailable Unavailable CHOUDHARY, H LOLIS ON AIR DIRECTOR Unavailable Unavailable CHOUDHARY, H LOLIS ON AIR DIRECTOR Unavailable Unavailable CHOUDHARY, H LOLIS ON AIR DIRECTOR Unavailable Unavailable Marely IRIZARRY DPM Unavailable Unavailable [...] MAJAK, R ITZEL DPM Unavailable Unavailable Daniel Scales MD Unavailable Unavailable [...] is protected by Article 27-F of the [facility] Public Health law. If you continue you may have access to information: Regarding HIV / AIDS; Provided by facilities licensed or operated by the [facility] Office of Mental Health; or Provided by the [facility] Office for People With Developmental Disabilities. If such information is present, then the following [facility] mandated warning applies: This information has been [...] law may result in a fine or mcfp sentence or both. A general authorization for the release of medical or other information is NOT sufficient authorization for further disc losure. Allergies and Adverse Reactions Type Description Substance Reaction Status Data Source(s ) Drug allergy Codeine Phosphate (For Allergies Use Only) Drug allergy Nausea/Vomiting Active eCW1 ([facility]) Adhesive Tape Adhesive Tape Adhesive Tape rash Active eCW1 ([facility]) Gluten allergy Gluten allergy Gluten allergy Rash Active eC W1 ([facility]) Latex (for allergy use only) Latex (for allergy use only) La omero (for allergy use only) Rash Active eCW1 ([facility]) Adhesive Tape Adhesive Tape Adhesive Tape rash Active eCW1 ([facility]) Gluten allergy Gluten allergy Gluten allergy Rash Active eC W1 ([facility]) Latex (for allergy use only) Latex (for allergy use only) [place] omero (for allergy use only) Rash Active eCW1 ([facility]) Adhesive Tape Adhesive Tape Adhesive Tape rash Active eCW1 ([facility]) Gluten allergy Gluten allergy Gluten allergy Rash Active eC W1 ([facility]) Latex (for allergy use only) Latex (for allergy use only) La omero (for allergy use only) Rash Active eCW1 ([facility]) Adhesive Tape Adhesive Tape Adhesive Tape rash Active eCW1 ([facility]) Gluten allergy Gluten allergy Gluten allergy Rash Active eC W1 ([facility]) Latex (for allergy use only) Latex (for allergy use only) [place] omero (for allergy use only) Rash Active eCW1 ([facility]) Adhesive Tape Adhesive Tape Adhesive Tape rash Active eCW1 ([facility]) Gluten allergy Gluten allergy Gluten allergy Rash Active eC W1 ([facility]) Latex (for allergy use only) Latex (for allergy use only) La omero (for allergy use only) Rash Active eCW1 ([facility]) Family History Family Member Name Family Member Gender Family Member Status Date o f Status Description Data Source(s) Unknown Unknown Problem MEDENT ([facility]) Encounters Encounter Providers Location Date Indications Data Source(s ) Office Visit Attender: TANESHA crow 11/17/2020 08:35:00 AM EST MEDENT ([facility]) Unknown [address] [place] [address] 11/09/2020 12:00:00 AM EST eCW1 ([facility]) Unknown [address] [place] [address] 10/30/2020 12:00:00 AM EST eCW1 ([facility]) Outpatient [address] [facility] [address] 10/09/2020 12:00:00 AM EST eCW1 ([facility]) Unknown [address] [facility] [address] 10/02/2020 12:00:00 AM EST eCW1 ([facility]) Unknown [address] [facility] [address] 09/24/2020 12:00:00 AM EST eCW1 ([facility]) Outpatient [address] [facility] [address] 09/24/2020 12:00:00 AM EST eCW1 ([facility]) Unknown [address] [facility] [address] 09/21/2020 12:00:00 AM EST eCW1 ([facility]) Unknown [address] [facility] [address] 09/21/2020 12:00:00 AM EST eCW1 ([facility]) Unknown [address] [facility] [address] 09/11/2020 12:00:00 AM EST eCW1 ([facility]) Unknown [address] [facility] [address] 09/10/2020 12:00:00 AM EST eCW1 ([facility]) Unknown [address] [facility] [address] 09/06/2020 12:00:00 AM EST eCW1 ([facility]) Unknown [address] [facility] [address] 09/06/2020 12:00:00 AM EST eCW1 ([facility]) Office Visit Attender: ITZEL IRIZARRY [facility] Office 11/2019 09:30:00 AM EST MEDENT ([facility] Unknown [address] [facility] [address] 09/03/2020 12:00:00 AM EST eCW1 ([facility]) Unknown [address] [facility] [place] [address] 08/23/2020 12:00:00 AM EST eCW1 ([facility]) Unknown [address] [facility] [address] 08/20/2020 12:00:00 AM EST eCW1 ([facility]) Office Visit Attender: ITZEL IRIZARRY [facility] Office 08/05 01:30:00 PM EST MEDENT ([facility] Unknown [address] [facility] [address] 08/13/2020 12:00:00 AM EST eCW1 ([facility]) Unknown [address] [facility] [address] 08/09/2020 12:00:00 AM EST eCW1 ([facility]) (WNKristyn YOON) Stretcher Required Patients [address] [place] [address] 08/09/2020 12:00:00 AM EST eCW1 ([facility]) Unknown [address] [facility] [address] 08/08/2020 12:00:00 AM EST eCW1 ([facility]) Outpatient [address] [facility] [address] 08/08/2020 12:00:00 AM EST eCW1 ([facility]) Unknown [address] [facility] [address] 08/08/2020 12:00:00 AM EST eCW1 ([facility]) Outpatient [address] [facility] [address] 08/07/2020 12:00:00 AM EST eCW1 ([facility]) Unknown [address] [facility] [address] 08/07/2020 12:00:00 AM EST eCW1 ([facility]) Office Visit Attender: ITZEL IRIZARRY [facility] Office 11/2019 02:00:00 PM EST MEDENT ([facility] Unknown [address] [facility] [address] 08/06/2020 12:00:00 AM EST eCW1 ([facility]) (WND STRTCH) Stretcher Required Patients [address] [place] [address] 07/26/2020 12:00:00 AM EDT eCW1 ([facility]) Office Visit Attender: ITZEL IRIZARRY [facility] Office 07/05 08:45:00 AM EDT MEDENT ([facility] Outpatient [address] [facility] [address] 07/17/2020 12:00:00 AM EDT eCW1 ([facility]) Office Visit Attender: TANESHA Segura ry 07/14/2020 11:10:00 AM EDT MEDENT ([facility]) Unknown [address] [facility] [address] 07/10/2020 12:00:00 AM EDT eCW1 ([facility]) Outpatient Attender: YVETTE VALENCIA MDReferrer: YVETTE SANTILLAN .CT-YADIRAP 07/03/2020 11:53:21 AM EDT [facility] Outpatient JOYCE.KENDRA 06/29/2020 12:00:00 AM EDT [facility] Office Visit Attender: ITZEL IRIZARRY [facility] Office 12/2019 02:45:00 PM EDT MEDENT ([facility] Office Visit Attender: ITZEL IRIZARRY DPM [facility] 05/06 03:15:00 PM EDT MEDENT ([facility] Outpatient Attender: YVETTE ADAMSKENDRA-JACQUE.KENDRA 05/25/2020 01:45:13 PM EDT [facility] Outpatient Attender: TANESHA crow 04/30/2020 01:15:00 PM EDT MEDENT ([facility]) [facility] 02:30:00 PM EDT MEDENT ([facility] Unknown [address] [facility], [facility] [address] 04/25/2020 12:00:00 AM EDT eCW1 [facility]) Outpatient [address] [facility] [address] 04/24/2020 12:00:00 AM EDT eCW1 ([facility]) Unknown [address] [facility], [facility] [address] 04/18/2020 12:00:00 AM EDT eCW1 ([facility]) Outpatient [address] [facility] [address] 04/17/2020 12:00:00 AM EDT eCW1 ([facility]) Outpatient Attender: Arianne Odom MD 04/16/2020 12:00:00 A [facility] Outpatient Attender: ITZEL IRIZARRY [facility] Office 06/2020 08:30:00 AM EDT MEDENT ([facility] [place] [address] [facility], [facility] [address] 04/11/2020 12:00:00 AM EDT eCW1 ([facility]) Outpatient Attender: ITZEL IRIZARRY [facility] Office 03/07 01:15:00 PM EDT MEDENT ([facility] Emergency Attender: Sen Major PAConsultant: LOLIS Lopez NP 03/27/2020 04:32:00 PM EDT - 03/27/2020 07:47:00 PM EDT [facility] Patient discharged. Unknown [address] [facility] [address] 03/26/2020 12:00:00 AM EDT eCW1 ([facility]) Unknown [address] [facility] [address] 03/22/2020 12:00:00 AM EDT eCW1 ([facility]) Outpatient Attender: Elias Purcell/Giovanni/Rodri/Re indl 03/19/2020 09:20:00 AM EDT MEDENT ([facility] Outpatient Attender: CATRACHITA LANDRY Physical Therapy 03/14/2020 1 1:00:00 AM EDT MEDENT ([facility]) Outpatient Referrer: Jose De Jesus Scales MD 03/14/2020 05:34:00 AM EDT [facility] Outpatient [address] [facility] [address] 03/12/2020 12:00:00 AM EDT eCW1 ([facility]) Unknown [address] [facility] [address] 03/12/2020 12:00:00 AM EDT eCW1 ([facility]) Outpatient Referrer: Jose De Jesus Scales MD 03/09/2020 01:29:00 PM EDT [facility] Outpatient Referrer: Jose De Jesus Scales MD 03/09/2020 01:28:00 PM EDT [facility] Unknown [address] [facility] [address] 03/07/2020 12:00:00 AM EDT eCW1 ([facility]) Unknown [address] [facility] [address] 03/07/2020 12:00:00 AM EDT eCW1 ([facility]) Outpatient Referrer: Jose De Jesus Scales MD 03/06/2020 04:31:00 PM EDT [facility] Outpatient Referrer: Joes De Jesus Scales MD 03/05/2020 08:56:00 AM EDT [facility] Outpatient [address] [facility] [address] 03/05/2020 12:00:00 AM EDT [facility]CW1 ([facility] [address] [place] [address], [place] [address] 03/02/2020 12:00:00 AM EDT eCW1 ([facility] [address] [facility] [address] 03/01/2020 12:00:00 AM EDT eCW1 ([facility]) Outpatient Referrer: Jose De Jesus Scales MD 02/24/2020 01:05:00 PM EDT [facility] Outpatient Referrer: CATRACHITA LANDRY 02/24/2020 01:00:00 PM EDT [facility] Pain [address] [address] 02/23/2020 12:00:00 AM EDT eCW1 ([facility]) Outpatient Referrer: CATRACHITA LANDRY 02/21/2020 05:47:00 AM EDT [facility] Outpatient Attender: Jose De Jesus Scales MD Physical Therapy 08:00:00 AM EDT MEDENT ([facility]) [address] [address] 02/20/2020 12:00:00 AM EDT eCW1 ([facility]) [address] [address] 02/13/2020 12:00:00 AM EDT eCW1 ([facility]) Outpatient Attender: Kaleigh LANDRY Physical Therapy 09:45:00 AM EDT MEDENT ([facility]) [facility] [address] [place] [address], [place] [address] 02/10/2020 12:00:00 AM EDT eCW1 ([facility]) [address] [address] 02/10/2020 12:00:00 AM EDT eCW1 ([facility]) [facility] [address] [facility] [address] 02/08/2020 12:00:00 AM EDT eCW1 ([facility]) [facility] [address] [facility] [address] 02/03/2020 12:00:00 AM EDT eCW1 ([facility]) [facility] [address] [facility] [address] 02/01/2020 12:00:00 AM EDT eCW1 ([facility]) [facility] [address] [facility] [address] 01/30/2020 12:00:00 AM EDT eCW1 ([facility]) [facility] [address] [facility] [address] 01/27/2020 12:00:00 AM EDT eCW1 ([facility]) [facility] [address] [facility] [address] 01/26/2020 12:00:00 AM EDT eCW1 ([facility]) [facility] [address] [facility] [address] 01/11/2020 12:00:00 AM EDT eCW1 ([facility]) [facility] [address] [facility] [address] 01/10/2020 12:00:00 AM EDT eCW1 ([facility]) [facility] [address] [place] [address], [place] [address] 01/10/2020 12:00:00 AM EDT eCW1 ([facility]) [facility] [address] [facility] [address] 01/10/2020 12:00:00 AM EDT eCW1 ([facility]) [facility] [address] [facility] [place] [address] 01/09/2020 12:00:00 AM EDT eCW1 ([facility]) Office Visit Attender: Jose De Jesus Scales MD Physical Therapy 11/2019 01:00:00 PM EDT MEDENT ([facility]) [address] [place] [address] 01/05/2020 12:00:00 AM EDT eCW1 ([facility]) [address] [place] [address] 01/04/2020 12:00:00 AM EDT eCW1 ([facility]) [address] [place] [address] 01/02/2020 12:00:00 AM EDT eCW1 ([facility]) [facility] Pain [address] [address] 01/02/2020 12:00:00 AM EDT eCW1 ([facility]) [address] [place] [address] 01/02/2020 12:00:00 AM EDT eCW1 ([facility]) [address] [place] [address] 12/26/2019 12:00:00 AM EDT eCW1 ([facility]) [facility] Pain [address] [address] 12/16/2019 12:00:00 AM EDT eCW1 ([facility]) [address] [place] [address] 12/16/2019 12:00:00 AM EDT eCW1 ([facility]) [address] [place] [address] 12/16/2019 12:00:00 AM EDT eCW1 ([facility]) Outpatient Referrer: CATRACHITA LANDRY 12/12/2019 07:12:00 AM EDT [facility] Pain Center [address] [place] [address] 12/09/2019 12:00:00 AM EST eCW1 ([facility]) Outpatient Referrer: CATRACHITA LANDRY 12/08/2019 08:21:00 AM EST [facility] [address], [facility] [address] 12/07/2019 12:00:00 AM EST eCW1 ([facility]) Outpatient Referrer: CATRACHITA LANDRY 12/06/2019 01:16:00 PM EST [facility] Outpatient Referrer: CATRACHITA LANDRY 12/02/2019 12:31:00 PM EST [facility] Outpatient Referrer: CATRACHITA LANDRY 12/02/2019 11:49:00 AM EST [facility] [address] [address] 12/01/2019 12:00:00 AM EST eCW1 ([facility]) Outpatient Referrer: CATRACHITA LANDRY 11/28/2019 04:59:00 PM EST [facility] Outpatient Referrer: CATRACHITA LANDRY 11/28/2019 11:22:00 AM EST [facility] Outpatient Referrer: Nahun Cardenas MD 11/28/2019 11 :12:00 AM EST [facility] [address] [address] 11/24/2019 12:00:00 AM EST eCW1 ([facility]) [address] [address] 11/23/2019 12:00:00 AM EST eCW1 ([facility]) [address] [address] 11/22/2019 12:00:00 AM EST eCW1 ([facility]) Outpatient Attender: ITZEL IRIZARRY [facility] Office 11/05 08:30:00 AM EST MEDENT ([facility] [address] [address] 11/17/2019 12:00:00 AM EST eCW1 ([facility]) [facility] Pain Center [address] [place] [address] 11/16/2019 12:00:00 AM EST eCW1 ([facility]) [facility] Pain Center [address] [place] [address] 11/14/2019 12:00:00 AM EST eCW1 ([facility]) [facility] Pain Center [address] [place] [address] 11/10/2019 12:00:00 AM EST eCW1 ([facility]) [address] [address] 11/10/2019 12:00:00 AM EST eCW1 ([facility]) [address] [address] 11/04/2019 12:00:00 AM EST eCW1 ([facility]) [facility] Pain Center [address] [place] [address] 11/04/2019 12:00:00 AM EST eCW1 ([facility]) Outpatient Attender: ITZEL IRIZARRY [facility] Office 10/06 02:15:00 PM EST MEDENT ([facility] [address] [address] 10/28/2019 12:00:00 AM EST eCW1 ([facility]) [facility] Pain Center [address] [place] [address] 10/28/2019 12:00:00 AM EST eCW1 ([facility]) [address] [address] 10/21/2019 12:00:00 AM EST eCW1 ([facility]) [address] [address] 10/17/2019 12:00:00 AM EST eCW1 ([facility]) [address] [address] 10/17/2019 12:00:00 AM EST eCW1 ([facility]) [facility] [address] [place] [address] 10/14/2019 12:00:00 AM EST eCW1 ([facility]) [address] [address] 10/07/2019 12:00:00 AM EST eCW1 ([facility]) Outpatient Attender: YVETTE SANTILLAN.KENDRA-SJRosa ElenaKENDRA 12:00:00 AM EST - 10/03/2019 02:55:15 PM EST [address] [address] 10/03/2019 12:00:00 AM EST eCW1 ([facility]) [address] [place] [address] 10/03/2019 12:00:00 AM EST eCW1 ([facility]) [address] [place] [address] 09/26/2019 12:00:00 AM EST eCW1 ([facility]) Outpatient [address] [place] [address] [place] [address] 09/23/2019 12:00:00 AM EST eCW1 ([facility]) Outpatient Attender: ITZEL IRIZARRY [facility] Office 09/04 02:00:00 PM EST MEDENT ([facility] [address] [place] [address] 09/21/2019 12:00:00 AM EST eCW1 ([facility]) Medications Medication Brand Name Start Date Product Form Dose Route Admi nistrative Instructions Pharmacy Instructions Status Indications Reaction Description Data Source(s) Polymyxin B 69719 UNT/ML / Trimethoprim 1 MG/ML Ophtha lmic Solution Polymyxin B Sulfate/Trimethoprim Sulfate 11/17/2020 12:00:00 AM EST OPHT HALMIC active MEDENT ([facility], [facility]) Betamethasone 0.5 MG/ML Topical Cream Betamethasone Dipropio anjel 11/06/2020 12:00:00 AM EST active M EDENT ([facility] Fluocinolone Acetonide 0.1 MG/ML Otic Solution [Jeremy ic] DermOtic 0.01 % DermOtic 0.01 % 08/07/2020 12:00:00 AM EST active DermOtic 0.01 % eCW1 ([facility]) Fluocinolone Acetonide 0.1 MG/ML Otic Solution [Jeremy ic] DermOtic 0.01 % DermOtic 0.01 % 08/07/2020 12:00:00 AM EST active DermOtic 0.01 % eCW1 ([facility]) Fluocinolone Acetonide 0.1 MG/ML Otic Solution [Jeremy ic] DermOtic 0.01 % DermOtic 0.01 % 08/07/2020 12:00:00 AM EST active DermOtic 0.01 % eCW1 ([facility]) Fluocinolone Acetonide 0.1 MG/ML Otic Solution [Jeremy ic] DermOtic 0.01 % DermOtic 0.01 % 08/07/2020 12:00:00 AM EST active DermOtic 0.01 % eCW1 ([facility]) Fluocinolone Acetonide 0.1 MG/ML Otic Solution [Jeremy ic] DermOtic 0.01 % DermOtic 0.01 % 08/07/2020 12:00:00 AM EST active DermOtic 0.01 % eCW1 ([facility]) Fluocinolone Acetonide 0.1 MG/ML Otic Solution [[facility]y ic] DermOtic 0.01 % DermOtic 0.01 % 08/07/2020 12:00:00 AM EST cho spended DermOtic 0.01 % eCW1 ([facility]) Fluocinolone Acetonide 0.1 MG/ML Otic Solution [[place] ic] DermOtic 0.01 % DermOtic 0.01 % 08/07/2020 12:00:00 AM EST active DermOtic 0.01 % eCW1 ([facility]) Fluocinolone Acetonide 0.1 MG/ML Otic Solution [[place] ic] DermOtic 0.01 % DermOtic 0.01 % 08/07/2020 12:00:00 AM EST cho spended DermOtic 0.01 % eCW1 ([facility]) Fluocinolone Acetonide 0.1 MG/ML Otic Solution [[place] ic] DermOtic 0.01 % DermOtic 0.01 % 08/07/2020 12:00:00 AM EST active DermOtic 0.01 % eCW1 ([facility]) Fluocinolone Acetonide 0.1 MG/ML Otic Solution [[place] ic] DermOtic 0.01 % DermOtic 0.01 % 08/07/2020 12:00:00 AM EST active DermOtic 0.01 % eCW1 ([facility]) Fluocinolone Acetonide 0.1 MG/ML Otic Solution [[place] ic] DermOtic 0.01 % DermOtic 0.01 % 08/07/2020 12:00:00 AM EST active DermOtic 0.01 % eCW1 ([facility]) Fluocinolone Acetonide 0.1 MG/ML Otic Solution [[place] ic] DermOtic 0.01 % DermOtic 0.01 % 08/07/2020 12:00:00 AM EST active DermOtic 0.01 % eCW1 ([facility]) Fluocinolone Acetonide 0.1 MG/ML Otic Solution [[place] ic] DermOtic 0.01 % DermOtic 0.01 % 08/07/2020 12:00:00 AM EST cho spended DermOtic 0.01 % eCW1 ([facility]) Fluocinolone Acetonide 0.1 MG/ML Otic Solution [[place] ic] DermOtic 0.01 % DermOtic 0.01 % 08/07/2020 12:00:00 AM EST active DermOtic 0.01 % eCW1 ([facility]) Fluocinolone Acetonide 0.1 MG/ML Otic Solution [[place] ic] DermOtic 0.01 % DermOtic 0.01 % 08/07/2020 12:00:00 AM EST active DermOtic 0.01 % eCW1 ([facility]) Fluocinolone Acetonide 0.1 MG/ML Otic Solution [[place] ic] DermOtic 0.01 % DermOtic 0.01 % 08/07/2020 12:00:00 AM EST cho spended DermOtic 0.01 % eCW1 ([facility]) Fluocinolone Acetonide 0.1 MG/ML Otic Solution [[place] ic] DermOtic 0.01 % DermOtic 0.01 % 08/07/2020 12:00:00 AM EST cho spended DermOtic 0.01 % eCW1 ([facility]) Fluocinolone Acetonide 0.1 MG/ML Otic Solution [[place] ic] DermOtic 0.01 % DermOtic 0.01 % 08/07/2020 12:00:00 AM EST active DermOtic 0.01 % eCW1 ([facility]) Fluocinolone Acetonide 0.1 MG/ML Otic Solution [[place] ic] DermOtic 0.01 % DermOtic 0.01 % 08/07/2020 12:00:00 AM EST active DermOtic 0.01 % eCW1 ([facility]) Fluocinolone Acetonide 0.1 MG/ML Otic Solution [[place] ic] DermOtic 0.01 % DermOtic 0.01 % 08/07/2020 12:00:00 AM EST active DermOtic 0.01 % eCW1 ([facility]) Fluocinolone Acetonide 0.1 MG/ML Otic Solution [[place] ic] DermOtic 0.01 % DermOtic 0.01 % 08/07/2020 12:00:00 AM EST active DermOtic 0.01 % eCW1 ([facility]) Sulfamethoxazole 800 MG / Trimethoprim 160 MG Oral Tab let Sulfamethoxazole/Trimethoprim DS 08/06/2020 12:00:00 AM EST ORAL active [facility] ([facility] linezolid 600 MG Oral Tablet Linezolid 08/06/2020 12:00:00 AM EST ORAL active [facility] ([facility] tramadol hydrochloride 50 MG Oral Tablet Tramadol HCL 08/01/2020 12:00:00 AM EDT active [facility] ([facility]) Mupirocin 0.02 MG/MG Topical Ointment Mupirocin 07/14/2020 12:00:00 AM EDT completed [facility] ([facility]) Acetaminophen 325 MG / Hydrocodone Bitartrate 5 MG Ora l Tablet Hydrocodone-Acetaminophen 06/04/2020 12:00:00 AM EDT active [facility] ([facility]) meloxicam 15 MG Oral Tablet Meloxicam 04/30/2020 12:00:00 AM EDT ORAL active [facility] ([facility]) Cephalexin 500 MG Oral Tablet Cephalexin 04/12/2020 12:00:00 AM EDT ORAL active [facility] ([facility] Mupirocin 0.02 MG/MG Topical Ointment Mupirocin 04/12/2020 12:00:00 AM EDT active [facility] ([facility] montelukast 10 MG Oral Tablet [Singulair] Singulair 10 MG Si ngulair 10 MG 02/03/2020 12:00:00 AM EDT 1.0 {tablet} active Singulair 10 MG eCW1 ([facility]) montelukast 10 MG Oral Tablet [Singulair] Singulair 10 MG Si ngulair 10 MG 02/03/2020 12:00:00 AM EDT 1.0 {tablet} active Singulair 10 MG eCW1 ([facility]) montelukast 10 MG Oral Tablet [Singulair] Singulair 10 MG Si ngulair 10 MG 02/03/2020 12:00:00 AM EDT 1.0 {tablet} active Singulair 10 MG eCW1 ([facility]) montelukast 10 MG Oral Tablet [Singulair] Singulair 10 MG Si ngulair 10 MG 02/03/2020 12:00:00 AM EDT 1.0 {tablet} active Singulair 10 MG eCW1 ([facility]) montelukast 10 MG Oral Tablet [Singulair] Singulair 10 MG Si ngulair 10 MG 02/03/2020 12:00:00 AM EDT 1.0 {tablet} active Singulair 10 MG eCW1 ([facility]) montelukast 10 MG Oral Tablet [Singulair] Singulair 10 MG Si ngulair 10 MG 02/03/2020 12:00:00 AM EDT 1.0 {tablet} active Singulair 10 MG eCW1 ([facility]) montelukast 10 MG Oral Tablet [Singulair] Singulair 10 MG Si ngulair 10 MG 02/03/2020 12:00:00 AM EDT 1.0 {tablet} active Singulair 10 MG eCW1 ([facility]) montelukast 10 MG Oral Tablet [Singulair] Singulair 10 MG Si ngulair 10 MG 02/03/2020 12:00:00 AM EDT 1.0 {tablet} active Singulair 10 MG eCW1 ([facility]) montelukast 10 MG Oral Tablet [Singulair] Singulair 10 MG Si ngulair 10 MG 02/03/2020 12:00:00 AM EDT 1.0 {tablet} active Singulair 10 MG eCW1 ([facility]) montelukast 10 MG Oral Tablet [Singulair] Singulair 10 MG Si ngulair 10 MG 02/03/2020 12:00:00 AM EDT 1.0 {tablet} active Singulair 10 MG eCW1 ([facility]) montelukast 10 MG Oral Tablet [Singulair] Singulair 10 MG Si ngulair 10 MG 02/03/2020 12:00:00 AM EDT 1.0 {tablet} active Singulair 10 MG eCW1 ([facility]) montelukast 10 MG Oral Tablet [Singulair] Singulair 10 MG Si ngulair 10 MG 02/03/2020 12:00:00 AM EDT 1.0 {tablet} active Singulair 10 MG eCW1 ([facility]) montelukast 10 MG Oral Tablet [Singulair] Singulair 10 MG Si ngulair 10 MG 02/03/2020 12:00:00 AM EDT 1.0 {tablet} active Singulair 10 MG eCW1 ([facility]) montelukast 10 MG Oral Tablet [Singulair] Singulair 10 MG Si ngulair 10 MG 02/03/2020 12:00:00 AM EDT 1.0 {tablet} active Singulair 10 MG eCW1 ([facility]) montelukast 10 MG Oral Tablet [Singulair] Singulair 10 MG Si ngulair 10 MG 02/03/2020 12:00:00 AM EDT 1.0 {tablet} active Singulair 10 MG eCW1 ([facility]) montelukast 10 MG Oral Tablet [Singulair] Singulair 10 MG Si ngulair 10 MG 02/03/2020 12:00:00 AM EDT 1.0 {tablet} active Singulair 10 MG eCW1 ([facility]) montelukast 10 MG Oral Tablet [Singulair] Singulair 10 MG Si ngulair 10 MG 02/03/2020 12:00:00 AM EDT 1.0 {tablet} active Singulair 10 MG eCW1 ([facility]) montelukast 10 MG Oral Tablet [Singulair] Singulair 10 MG Si ngulair 10 MG 02/03/2020 12:00:00 AM EDT 1.0 {tablet} active Singulair 10 MG eCW1 ([facility]) montelukast 10 MG Oral Tablet [Singulair] Singulair 10 MG Si ngulair 10 MG 02/03/2020 12:00:00 AM EDT 1.0 {tablet} active Singulair 10 MG eCW1 ([facility]) montelukast 10 MG Oral Tablet [Singulair] Singulair 10 MG Si ngulair 10 MG 02/03/2020 12:00:00 AM EDT 1.0 {tablet} active Singulair 10 MG eCW1 ([facility]) montelukast 10 MG Oral Tablet [Singulair] Singulair 10 MG Si ngulair 10 MG 02/03/2020 12:00:00 AM EDT 1.0 {tablet} active Singulair 10 MG eCW1 ([facility]) montelukast 10 MG Oral Tablet [Singulair] Singulair 10 MG Si ngulair 10 MG 02/03/2020 12:00:00 AM EDT 1.0 {tablet} active Singulair 10 MG eCW1 ([facility]) montelukast 10 MG Oral Tablet [Singulair] Singulair 10 MG Si ngulair 10 MG 02/03/2020 12:00:00 AM EDT 1.0 {tablet} active Singulair 10 MG eCW1 ([facility]) montelukast 10 MG Oral Tablet [Singulair] Singulair 10 MG Si ngulair 10 MG 02/03/2020 12:00:00 AM EDT 1.0 {tablet} active Singulair 10 MG eCW1 ([facility]) montelukast 10 MG Oral Tablet [Singulair] Singulair 10 MG Si ngulair 10 MG 02/03/2020 12:00:00 AM EDT 1.0 {tablet} active Singulair 10 MG eCW1 ([facility]) montelukast 10 MG Oral Tablet [Singulair] Singulair 10 MG Si ngulair 10 MG 02/03/2020 12:00:00 AM EDT 1.0 {tablet} active Singulair 10 MG eCW1 ([facility]) montelukast 10 MG Oral Tablet [Singulair] Singulair 10 MG Si ngulair 10 MG 02/03/2020 12:00:00 AM EDT 1.0 {tablet} active Singulair 10 MG eCW1 ([facility]) montelukast 10 MG Oral Tablet [Singulair] Singulair 10 MG Si ngulair 10 MG 02/03/2020 12:00:00 AM EDT 1.0 {tablet} active Singulair 10 MG eCW1 ([facility]) montelukast 10 MG Oral Tablet [Singulair] Singulair 10 MG Si ngulair 10 MG 02/03/2020 12:00:00 AM EDT active 1 tablet eCW1 ([facility]) montelukast 10 MG Oral Tablet [Singulair] Singulair 10 MG Si ngulair 10 MG 02/03/2020 12:00:00 AM EDT 1.0 {tablet} active Singulair 10 MG eCW1 ([facility]) montelukast 10 MG Oral Tablet [Singulair] Singulair 10 MG Si ngulair 10 MG 02/03/2020 12:00:00 AM EDT 1.0 {tablet} active Singulair 10 MG eCW1 ([facility]) montelukast 10 MG Oral Tablet [Singulair] Singulair 10 MG Si ngulair 10 MG 02/03/2020 12:00:00 AM EDT 1.0 {tablet} active Singulair 10 MG eCW1 ([facility]) montelukast 10 MG Oral Tablet [Singulair] Singulair 10 MG Si ngulair 10 MG 02/03/2020 12:00:00 AM EDT 1.0 {tablet} active Singulair 10 MG eCW1 ([facility]) montelukast 10 MG Oral Tablet [Singulair] Singulair 10 MG Si ngulair 10 MG 02/03/2020 12:00:00 AM EDT 1.0 {tablet} active Singulair 10 MG eCW1 ([facility]) montelukast 10 MG Oral Tablet [Singulair] Singulair 10 MG Si ngulair 10 MG 02/03/2020 12:00:00 AM EDT 1.0 {tablet} active Singulair 10 MG eCW1 ([facility]) Sodium Chloride 0.111 MEQ/ML Nasal [place] [[place] brand of sodium chloride] [place] Nasal [place] 0.65 % [place] Nasal [place] 0.65 % 01/27/2020 12:00:00 AM EDT active [place] Nasal [place] 0.65 % eCW 1 ([facility]) Sodium Chloride 0.111 MEQ/ML Nasal [place] [[place] brand of sodium chloride] [place] Nasal [place] 0.65 % [place] Nasal [place] 0.65 % 01/27/2020 12:00:00 AM EDT active [place] Nasal [place] 0.65 % eCW 1 ([facility]) Sodium Chloride 0.111 MEQ/ML Nasal [place] [[place] brand of sodium chloride] [place] Nasal [place] 0.65 % [place] Nasal [place] 0.65 % 01/27/2020 12:00:00 AM EDT active [place] Nasal [place] 0.65 % eCW 1 ([facility]) Sodium Chloride 0.111 MEQ/ML Nasal [place] [[place] brand of sodium chloride] [place] Nasal [place] 0.65 % [place] Nasal [place] 0.65 % 01/27/2020 12:00:00 AM EDT active [place] Nasal [place] 0.65 % eCW 1 ([facility]) Sodium Chloride 0.111 MEQ/ML Nasal [place] [[place] brand of sodium chloride] [place] Nasal [place] 0.65 % [place] Nasal [place] 0.65 % 01/27/2020 12:00:00 AM EDT active [place] Nasal [place] 0.65 % eCW 1 ([facility]) Sodium Chloride 0.111 MEQ/ML Nasal [place] [[place] brand of sodium chloride] [place] Nasal [place] 0.65 % [place] Nasal [place] 0.65 % 01/27/2020 12:00:00 AM EDT active [place] Nasal [place] 0.65 % eCW 1 ([facility]) Sodium Chloride 0.111 MEQ/ML Nasal [place] [[place] brand of sodium chloride] [place] Nasal [place] 0.65 % [place] Nasal [place] 0.65 % 01/27/2020 12:00:00 AM EDT active [place] Nasal [place] 0.65 % eCW 1 ([facility]) Sodium Chloride 0.111 MEQ/ML Nasal [place] [[place] brand of sodium chloride] [place] Nasal [place] 0.65 % [place] Nasal [place] 0.65 % 01/27/2020 12:00:00 AM EDT active [place] Nasal [place] 0.65 % eCW 1 ([facility]) Sodium Chloride 0.111 MEQ/ML Nasal [place] [[place] brand of sodium chloride] [place] Nasal [place] 0.65 % [place] Nasal [place] 0.65 % 01/27/2020 12:00:00 AM EDT active [place] Nasal [place] 0.65 % eCW 1 ([facility]) Sodium Chloride 0.111 MEQ/ML Nasal [place] [[place] brand of sodium chloride] [place] Nasal [place] 0.65 % [place] Nasal [place] 0.65 % 01/27/2020 12:00:00 AM EDT active [place] Nasal [place] 0.65 % eCW 1 ([facility]) Sodium Chloride 0.111 MEQ/ML Nasal [place] [[place] brand of sodium chloride] [place] Nasal [place] 0.65 % [place] Nasal [place] 0.65 % 01/27/2020 12:00:00 AM EDT active [place] Nasal [place] 0.65 % eCW 1 ([facility]) Sodium Chloride 0.111 MEQ/ML Nasal [place] [[place] brand of sodium chloride] [place] Nasal [place] 0.65 % [place] Nasal [place] 0.65 % 01/27/2020 12:00:00 AM EDT active [place] Nasal [place] 0.65 % eCW 1 ([facility]) Sodium Chloride 0.111 MEQ/ML Nasal [place] [[place] brand of sodium chloride] [place] Nasal [place] 0.65 % [place] Nasal [place] 0.65 % 01/27/2020 12:00:00 AM EDT active [place] Nasal [place] 0.65 % eCW 1 ([facility]) Sodium Chloride 0.111 MEQ/ML Nasal [place] [[place] brand of sodium chloride] [place] Nasal [place] 0.65 % [place] Nasal [place] 0.65 % 01/27/2020 12:00:00 AM EDT active [place] Nasal [place] 0.65 % eCW 1 ([facility]) Sodium Chloride 0.111 MEQ/ML Nasal [place] [[place] brand of sodium chloride] [place] Nasal [place] 0.65 % [place] Nasal [place] 0.65 % 01/27/2020 12:00:00 AM EDT active [place] Nasal [place] 0.65 % eCW 1 ([facility]) Sodium Chloride 0.111 MEQ/ML Nasal [place] [[place] brand of sodium chloride] [place] Nasal [place] 0.65 % [place] Nasal [place] 0.65 % 01/27/2020 12:00:00 AM EDT active [place] Nasal [place] 0.65 % eCW 1 ([facility]) Sodium Chloride 0.111 MEQ/ML Nasal [place] [[place] brand of sodium chloride] [place] Nasal [place] 0.65 % [place] Nasal [place] 0.65 % 01/27/2020 12:00:00 AM EDT active [place] Nasal [place] 0.65 % eCW 1 ([facility]) Dexamethasone 2 MG Oral Tablet Dexamethasone 2 MG 01/27/2020 12:00: 00 AM EDT active 1 tablet eCW1 ([facility]) Sodium Chloride 0.111 MEQ/ML Nasal [place] [[place] brand of sodium chloride] [place] Nasal [place] 0.65 % [place] Nasal [place] 0.65 % 01/27/2020 12:00:00 AM EDT active [place] Nasal [place] 0.65 % eCW 1 ([facility]) Sodium Chloride 0.111 MEQ/ML Nasal [place] [[place] brand of sodium chloride] [place] Nasal [place] 0.65 % [place] Nasal [place] 0.65 % 01/27/2020 12:00:00 AM EDT active [place] Nasal [place] 0.65 % eCW 1 ([facility]) Sodium Chloride 0.111 MEQ/ML Nasal [place] [[place] brand of sodium chloride] [place] Nasal [place] 0.65 % [place] Nasal [place] 0.65 % 01/27/2020 12:00:00 AM EDT active [place] Nasal [place] 0.65 % eCW 1 ([facility]) Sodium Chloride 0.111 MEQ/ML Nasal [place] [[place] brand of sodium chloride] [place] Nasal [place] 0.65 % [place] Nasal [place] 0.65 % 01/27/2020 12:00:00 AM EDT active 2 sprays in each nostril as needed eCW1 ([facility]) Sodium Chloride 0.111 MEQ/ML Nasal [place] [[place] brand of sodium chloride] [place] Nasal [place] 0.65 % [place] Nasal [place] 0.65 % 01/27/2020 12:00:00 AM EDT active [place] Nasal [place] 0.65 % eCW 1 ([facility]) Sodium Chloride 0.111 MEQ/ML Nasal [place] [[place] brand of sodium chloride] [place] Nasal [place] 0.65 % [place] Nasal [place] 0.65 % 01/27/2020 12:00:00 AM EDT active [place] Nasal [place] 0.65 % eCW 1 ([facility]) Sodium Chloride 0.111 MEQ/ML Nasal [place] [[place] brand of sodium chloride] [place] Nasal [place] 0.65 % [place] Nasal [place] 0.65 % 01/27/2020 12:00:00 AM EDT active [place] Nasal [place] 0.65 % eCW 1 ([facility]) Sodium Chloride 0.111 MEQ/ML Nasal [place] [[place] brand of sodium chloride] [place] Nasal [place] 0.65 % [place] Nasal [place] 0.65 % 01/27/2020 12:00:00 AM EDT active [place] Nasal [place] 0.65 % eCW 1 ([facility]) Sodium Chloride 0.111 MEQ/ML Nasal [place] [[place] brand of sodium chloride] [place] Nasal [place] 0.65 % [place] Nasal [place] 0.65 % 01/27/2020 12:00:00 AM EDT active [place] Nasal [place] 0.65 % eCW 1 ([facility]) Sodium Chloride 0.111 MEQ/ML Nasal [place] [[place] brand of sodium chloride] [place] Nasal [place] 0.65 % [place] Nasal [place] 0.65 % 01/27/2020 12:00:00 AM EDT active [place] Nasal [place] 0.65 % eCW 1 ([facility]) Sodium Chloride 0.111 MEQ/ML Nasal [place] [[place] brand of sodium chloride] [place] Nasal [place] 0.65 % [place] Nasal [place] 0.65 % 01/27/2020 12:00:00 AM EDT active [place] Nasal [place] 0.65 % eCW 1 ([facility]) Sodium Chloride 0.111 MEQ/ML Nasal [place] [[place] brand of sodium chloride] [place] Nasal [place] 0.65 % [place] Nasal [place] 0.65 % 01/27/2020 12:00:00 AM EDT active [place] Nasal [place] 0.65 % eCW 1 ([facility]) Sodium Chloride 0.111 MEQ/ML Nasal [place] [[place] brand of sodium chloride] [place] Nasal [place] 0.65 % [place] Nasal [place] 0.65 % 01/27/2020 12:00:00 AM EDT active [place] Nasal [place] 0.65 % eCW 1 ([facility]) Sodium Chloride 0.111 MEQ/ML Nasal [place] [[place] brand of sodium chloride] [place] Nasal [place] 0.65 % [place] Nasal [place] 0.65 % 01/27/2020 12:00:00 AM EDT active [place] Nasal [place] 0.65 % eCW 1 ([facility]) Sodium Chloride 0.111 MEQ/ML Nasal [place] [[place] brand of sodium chloride] [place] Nasal [place] 0.65 % [place] Nasal [place] 0.65 % 01/27/2020 12:00:00 AM EDT active [place] Nasal [place] 0.65 % eCW 1 ([facility]) Sodium Chloride 0.111 MEQ/ML Nasal [place] [[place] brand of sodium chloride] [place] Nasal [place] 0.65 % [place] Nasal [place] 0.65 % 01/27/2020 12:00:00 AM EDT active [place] Nasal [place] 0.65 % eCW 1 ([facility]) Sodium Chloride 0.111 MEQ/ML Nasal [place] [[place] brand of sodium chloride] [place] Nasal [place] 0.65 % [place] Nasal [place] 0.65 % 01/27/2020 12:00:00 AM EDT active [place] Nasal [place] 0.65 % eCW 1 ([facility]) Sodium Chloride 0.111 MEQ/ML Nasal [place] [[place] brand of sodium chloride] [place] Nasal [place] 0.65 % [place] Nasal [place] 0.65 % 01/27/2020 12:00:00 AM EDT active [place] Nasal [place] 0.65 % eCW 1 ([facility]) Sodium Chloride 0.111 MEQ/ML Nasal [place] [[place] brand of sodium chloride] [place] Nasal [place] 0.65 % [place] Nasal [place] 0.65 % 01/27/2020 12:00:00 AM EDT active [place] Nasal [place] 0.65 % eCW 1 ([facility]) Sodium Chloride 0.111 MEQ/ML Nasal [place] [[place] brand of sodium chloride] [place] Nasal [place] 0.65 % [place] Nasal [place] 0.65 % 01/27/2020 12:00:00 AM EDT active [place] Nasal [place] 0.65 % eCW 1 ([facility]) Sodium Chloride 0.111 MEQ/ML Nasal [place] [[place] brand of sodium chloride] [place] Nasal [place] 0.65 % [place] Nasal [place] 0.65 % 01/27/2020 12:00:00 AM EDT active [place] Nasal [place] 0.65 % eCW 1 ([facility]) Levothyroxine Sodium 0.025 MG Oral Tablet Levothyroxin e Sodium 25 MCG Levothyroxine Sodium 25 MCG 01/11/2020 12:00:00 AM EDT active Levothyroxine Sodium 25 MCG eCW1 ([facility]) Levothyroxine Sodium 0.025 MG Oral Tablet Levothyroxin e Sodium 25 MCG Levothyroxine Sodium 25 MCG 01/11/2020 12:00:00 AM EDT active Levothyroxine Sodium 25 MCG eCW1 ([facility]) Levothyroxine Sodium 0.025 MG Oral Tablet Levothyroxin e Sodium 25 MCG Levothyroxine Sodium 25 MCG 01/11/2020 12:00:00 AM EDT active 1 tablet in the morning on an empty stomach eCW1 ([facility]) Levothyroxine Sodium 0.025 MG Oral Tablet Levothyroxin e Sodium 25 MCG Levothyroxine Sodium 25 MCG 01/11/2020 12:00:00 AM EDT active Levothyroxine Sodium 25 MCG eCW1 ([facility]) Levothyroxine Sodium 0.025 MG Oral Tablet Levothyroxin e Sodium 25 MCG Levothyroxine Sodium 25 MCG 01/11/2020 12:00:00 AM EDT active Levothyroxine Sodium 25 MCG eCW1 ([facility]) Levothyroxine Sodium 0.025 MG Oral Tablet Levothyroxin e Sodium 25 MCG Levothyroxine Sodium 25 MCG 01/11/2020 12:00:00 AM EDT active Levothyroxine Sodium 25 MCG eCW1 ([facility]) Levothyroxine Sodium 0.025 MG Oral Tablet Levothyroxin e Sodium 25 MCG Levothyroxine Sodium 25 MCG 01/11/2020 12:00:00 AM EDT active 1 tablet in the morning on an empty stomach eCW1 ([facility]) Levothyroxine Sodium 0.025 MG Oral Tablet Levothyroxin e Sodium 25 MCG Levothyroxine Sodium 25 MCG 01/11/2020 12:00:00 AM EDT active Levothyroxine Sodium 25 MCG eCW1 ([facility]) Fluticasone Propionate 50 MCG/ACT Fluticasone Propionate 50 MCG/ACT 01/02/2020 12:00:00 AM EDT 1.0 {spray_in_each_nostril} acti ve Fluticasone Propionate 50 MCG/ACT eCW1 ([facility]) Fluticasone Propionate 50 MCG/ACT Fluticasone Propionate 50 MCG/ACT 01/02/2020 12:00:00 AM EDT 1.0 {spray_in_each_nostril} acti ve Fluticasone Propionate 50 MCG/ACT eCW1 ([facility]) Fluticasone Propionate 50 MCG/ACT Fluticasone Propionate 50 MCG/ACT 01/02/2020 12:00:00 AM EDT 1.0 {spray_in_each_nostril} acti ve Fluticasone Propionate 50 MCG/ACT eCW1 ([facility]) Fluticasone Propionate 50 MCG/ACT Fluticasone Propionate 50 MCG/ACT 01/02/2020 12:00:00 AM EDT 1.0 {spray_in_each_nostril} acti ve Fluticasone Propionate 50 MCG/ACT eCW1 ([facility]) Fluticasone Propionate 50 MCG/ACT Fluticasone Propionate 50 MCG/ACT 01/02/2020 12:00:00 AM EDT 1.0 {spray_in_each_nostril} acti ve Fluticasone Propionate 50 MCG/ACT eCW1 ([facility]) Fluticasone Propionate 50 MCG/ACT Fluticasone Propionate 50 MCG/ACT 01/02/2020 12:00:00 AM EDT 1.0 {spray_in_each_nostril} acti ve Fluticasone Propionate 50 MCG/ACT eCW1 ([facility]) Fluticasone Propionate 50 MCG/ACT Fluticasone Propionate 50 MCG/ACT 01/02/2020 12:00:00 AM EDT 1.0 {spray_in_each_nostril} acti ve Fluticasone Propionate 50 MCG/ACT eCW1 ([facility]) Fluticasone Propionate 50 MCG/ACT Fluticasone Propionate 50 MCG/ACT 01/02/2020 12:00:00 AM EDT 1.0 {spray_in_each_nostril} acti ve Fluticasone Propionate 50 MCG/ACT eCW1 ([facility]) Fluticasone Propionate 50 MCG/ACT Fluticasone Propionate 50 MCG/ACT 01/02/2020 12:00:00 AM EDT 1.0 {spray_in_each_nostril} acti ve Fluticasone Propionate 50 MCG/ACT eCW1 ([facility]) Fluticasone Propionate 50 MCG/ACT Fluticasone Propionate 50 MCG/ACT 01/02/2020 12:00:00 AM EDT 1.0 {spray_in_each_nostril} acti ve Fluticasone Propionate 50 MCG/ACT eCW1 ([facility]) Fluticasone Propionate 50 MCG/ACT Fluticasone Propionate 50 MCG/ACT 01/02/2020 12:00:00 AM EDT 1.0 {spray_in_each_nostril} acti ve Fluticasone Propionate 50 MCG/ACT eCW1 ([facility]) Fluticasone Propionate 50 MCG/ACT Fluticasone Propionate 50 MCG/ACT 01/02/2020 12:00:00 AM EDT 1.0 {spray_in_each_nostril} acti ve Fluticasone Propionate 50 MCG/ACT eCW1 ([facility]) Fluticasone Propionate 50 MCG/ACT Fluticasone Propionate 50 MCG/ACT 01/02/2020 12:00:00 AM EDT 1.0 {spray_in_each_nostril} acti ve Fluticasone Propionate 50 MCG/ACT eCW1 ([facility]) Fluticasone Propionate 50 MCG/ACT Fluticasone Propionate 50 MCG/ACT 01/02/2020 12:00:00 AM EDT 1.0 {spray_in_each_nostril} acti ve Fluticasone Propionate 50 MCG/ACT eCW1 ([facility]) Fluticasone Propionate 50 MCG/ACT Fluticasone Propionate 50 MCG/ACT 01/02/2020 12:00:00 AM EDT 1.0 {spray_in_each_nostril} acti ve Fluticasone Propionate 50 MCG/ACT eCW1 ([facility]) Fluticasone Propionate 50 MCG/ACT Fluticasone Propionate 50 MCG/ACT 01/02/2020 12:00:00 AM EDT 1.0 {spray_in_each_nostril} acti ve Fluticasone Propionate 50 MCG/ACT eCW1 ([facility]) Fluticasone Propionate 50 MCG/ACT Fluticasone Propionate 50 MCG/ACT 01/02/2020 12:00:00 AM EDT 1.0 {spray_in_each_nostril} acti ve Fluticasone Propionate 50 MCG/ACT eCW1 ([facility]) Fluticasone Propionate 50 MCG/ACT Fluticasone Propionate 50 MCG/ACT 01/02/2020 12:00:00 AM EDT 1.0 {spray_in_each_nostril} acti ve Fluticasone Propionate 50 MCG/ACT eCW1 ([facility]) Fluticasone Propionate 50 MCG/ACT Fluticasone Propionate 50 MCG/ACT 01/02/2020 12:00:00 AM EDT 1.0 {spray_in_each_nostril} acti ve Fluticasone Propionate 50 MCG/ACT eCW1 ([facility]) Fluticasone Propionate 50 MCG/ACT Fluticasone Propionate 50 MCG/ACT 01/02/2020 12:00:00 AM EDT 1.0 {spray_in_each_nostril} acti ve Fluticasone Propionate 50 MCG/ACT eCW1 ([facility]) Fluticasone Propionate 50 MCG/ACT Fluticasone Propionate 50 MCG/ACT 01/02/2020 12:00:00 AM EDT 1.0 {spray_in_each_nostril} acti ve Fluticasone Propionate 50 MCG/ACT eCW1 ([facility]) Fluticasone Propionate 50 MCG/ACT Fluticasone Propionate 50 MCG/ACT 01/02/2020 12:00:00 AM EDT 1.0 {spray_in_each_nostril} acti ve Fluticasone Propionate 50 MCG/ACT eCW1 ([facility]) Fluticasone Propionate 50 MCG/ACT Fluticasone Propionate 50 MCG/ACT 01/02/2020 12:00:00 AM EDT active 1 spray in each nostril eCW1 ([facility]) Fluticasone Propionate 50 MCG/ACT Fluticasone Propionate 50 MCG/ACT 01/02/2020 12:00:00 AM EDT 1.0 {spray_in_each_nostril} acti ve Fluticasone Propionate 50 MCG/ACT eCW1 ([facility]) Fluticasone Propionate 50 MCG/ACT Fluticasone Propionate 50 MCG/ACT 01/02/2020 12:00:00 AM EDT 1.0 {spray_in_each_nostril} acti ve Fluticasone Propionate 50 MCG/ACT eCW1 ([facility]) Fluticasone Propionate 50 MCG/ACT Fluticasone Propionate 50 MCG/ACT 01/02/2020 12:00:00 AM EDT 1.0 {spray_in_each_nostril} acti ve Fluticasone Propionate 50 MCG/ACT eCW1 ([facility]) Fluticasone Propionate 50 MCG/ACT Fluticasone Propionate 50 MCG/ACT 01/02/2020 12:00:00 AM EDT 1.0 {spray_in_each_nostril} acti ve Fluticasone Propionate 50 MCG/ACT eCW1 ([facility]) Fluticasone Propionate 50 MCG/ACT Fluticasone Propionate 50 MCG/ACT 01/02/2020 12:00:00 AM EDT 1.0 {spray_in_each_nostril} acti ve Fluticasone Propionate 50 MCG/ACT eCW1 ([facility]) Fluticasone Propionate 50 MCG/ACT Fluticasone Propionate 50 MCG/ACT 01/02/2020 12:00:00 AM EDT 1.0 {spray_in_each_nostril} acti ve Fluticasone Propionate 50 MCG/ACT eCW1 ([facility]) Fluticasone Propionate 50 MCG/ACT Fluticasone Propionate 50 MCG/ACT 01/02/2020 12:00:00 AM EDT 1.0 {spray_in_each_nostril} acti ve Fluticasone Propionate 50 MCG/ACT eCW1 ([facility]) Fluticasone Propionate 50 MCG/ACT Fluticasone Propionate 50 MCG/ACT 01/02/2020 12:00:00 AM EDT active 1 spray in each nostril eCW1 ([facility]) Fluticasone Propionate 50 MCG/ACT Fluticasone Propionate 50 MCG/ACT 01/02/2020 12:00:00 AM EDT 1.0 {spray_in_each_nostril} acti ve Fluticasone Propionate 50 MCG/ACT eCW1 ([facility]) Fluticasone Propionate 50 MCG/ACT Fluticasone Propionate 50 MCG/ACT 01/02/2020 12:00:00 AM EDT 1.0 {spray_in_each_nostril} acti ve Fluticasone Propionate 50 MCG/ACT eCW1 ([facility]) Fluticasone Propionate 50 MCG/ACT Fluticasone Propionate 50 MCG/ACT 01/02/2020 12:00:00 AM EDT 1.0 {spray_in_each_nostril} acti ve Fluticasone Propionate 50 MCG/ACT eCW1 ([facility]) Fluticasone Propionate 50 MCG/ACT Fluticasone Propionate 50 MCG/ACT 01/02/2020 12:00:00 AM EDT 1.0 {spray_in_each_nostril} acti ve Fluticasone Propionate 50 MCG/ACT eCW1 ([facility]) Fluticasone Propionate 50 MCG/ACT Fluticasone Propionate 50 MCG/ACT 01/02/2020 12:00:00 AM EDT 1.0 {spray_in_each_nostril} acti ve Fluticasone Propionate 50 MCG/ACT eCW1 ([facility]) Fluticasone Propionate 50 MCG/ACT Fluticasone Propionate 50 MCG/ACT 01/02/2020 12:00:00 AM EDT active 1 spray in each nostril eCW1 ([facility]) Fluticasone Propionate 50 MCG/ACT Fluticasone Propionate 50 MCG/ACT 01/02/2020 12:00:00 AM EDT 1.0 {spray_in_each_nostril} acti ve Fluticasone Propionate 50 MCG/ACT eCW1 ([facility]) Fluticasone Propionate 50 MCG/ACT Fluticasone Propionate 50 MCG/ACT 01/02/2020 12:00:00 AM EDT 1.0 {spray_in_each_nostril} acti ve Fluticasone Propionate 50 MCG/ACT eCW1 ([facility]) Fluticasone Propionate 50 MCG/ACT Fluticasone Propionate 50 MCG/ACT 01/02/2020 12:00:00 AM EDT 1.0 {spray_in_each_nostril} acti ve Fluticasone Propionate 50 MCG/ACT eCW1 ([facility]) Levothyroxine Sodium 0.05 MG Oral Tablet Levothyroxine Sodium 50 MCG Levothyroxine Sodium 50 MCG 12/16/2019 12:00:00 AM EDT active 1 tablet in the morning on an empty stomach eCW1 ([facility]) Levothyroxine Sodium 0.05 MG Oral Tablet Levothyroxine Sodium 50 MCG Levothyroxine Sodium 50 MCG 12/16/2019 12:00:00 AM EDT active 1 tablet in the morning on an empty stomach eCW1 ([facility]) Naproxen 500 MG Oral Tablet Naproxen 11/21/2019 12:00:00 AM EST active [facility] ([facility] Ibuprofen 600 MG Oral Tablet Ibuprofen 600 MG 10/03/2019 12:00:[address] active Ibuprofen 600 MG eCW1 ([facility]) Ibuprofen 600 MG Oral Tablet Ibuprofen 600 MG 10/03/2019 12:00:[address] active Ibuprofen 600 MG eCW1 ([facility]) Ibuprofen 600 MG Oral Tablet Ibuprofen 600 MG 10/03/2019 12:00:[address] active Ibuprofen 600 MG eCW1 ([facility]) [place] Saline Nasal Gel 1 UNK 10/03/2019 12:00:00 AM EST active as directed eCW1 ([facility]) Ibuprofen 600 MG Oral Tablet Ibuprofen 600 MG 10/03/2019 12:00:[address] active Ibuprofen 600 MG eCW1 ([facility]) Ibuprofen 600 MG Oral Tablet Ibuprofen 600 MG 10/03/2019 12:00:[address] active Ibuprofen 600 MG eCW1 ([facility]) Ibuprofen 600 MG Oral Tablet Ibuprofen 600 MG 10/03/2019 12:00:[address] active Ibuprofen 600 MG eCW1 ([facility]) Ibuprofen 600 MG Oral Tablet Ibuprofen 600 MG 10/03/2019 12:00:[address] active Ibuprofen 600 MG eCW1 ([facility]) Ibuprofen 600 MG Oral Tablet Ibuprofen 600 MG 10/03/2019 12:00:[address] active Ibuprofen 600 MG eCW1 ([facility]) Ibuprofen 600 MG Oral Tablet Ibuprofen 600 MG 10/03/2019 12:00:[address] active 1 tablet with food or mil k as needed eCW1 ([facility]) Ibuprofen 600 MG Oral Tablet Ibuprofen 600 MG 10/03/2019 12:00:[address] active Ibuprofen 600 MG eCW1 ([facility]) Ibuprofen 600 MG Oral Tablet Ibuprofen 600 MG 10/03/2019 12:00:[address] active Ibuprofen 600 MG eCW1 ([facility]) Ibuprofen 600 MG Oral Tablet Ibuprofen 600 MG 10/03/2019 12:00:[address] active Ibuprofen 600 MG eCW1 ([facility]) Ibuprofen 600 MG Oral Tablet Ibuprofen 600 MG 10/03/2019 12:00:[address] active Ibuprofen 600 MG eCW1 ([facility]) Ibuprofen 600 MG Oral Tablet Ibuprofen 600 MG 10/03/2019 12:00:[address] active Ibuprofen 600 MG eCW1 ([facility]) Ibuprofen 600 MG Oral Tablet Ibuprofen 600 MG 10/03/2019 12:00:[address] active Ibuprofen 600 MG eCW1 ([facility]) Ibuprofen 600 MG Oral Tablet Ibuprofen 600 MG 10/03/2019 12:00:[address] active Ibuprofen 600 MG eCW1 ([facility]) Ibuprofen 600 MG Oral Tablet Ibuprofen 600 MG 10/03/2019 12:00:[address] active 1 tablet with food or mil k as needed eCW1 ([facility]) Ibuprofen 600 MG Oral Tablet Ibuprofen 600 MG 10/03/2019 12:00:[address] active Ibuprofen 600 MG eCW1 ([facility]) Ibuprofen 600 MG Oral Tablet Ibuprofen 600 MG 10/03/2019 12:00:[address] active 1 tablet with food or mil k as needed eCW1 ([facility]) Ibuprofen 600 MG Oral Tablet Ibuprofen 600 MG 10/03/2019 12:00:[address] active Ibuprofen 600 MG eCW1 ([facility]) Ibuprofen 600 MG Oral Tablet Ibuprofen 600 MG 10/03/2019 12:00:[address] active Ibuprofen 600 MG eCW1 ([facility]) Ibuprofen 600 MG Oral Tablet Ibuprofen 600 MG 10/03/2019 12:00:[address] active Ibuprofen 600 MG eCW1 ([facility]) Ibuprofen 600 MG Oral Tablet Ibuprofen 600 MG 10/03/2019 12:00:[address] active 1 tablet with food or mil k as needed eCW1 ([facility]) Ibuprofen 600 MG Oral Tablet Ibuprofen 600 MG 10/03/2019 12:00:[address] active Ibuprofen 600 MG eCW1 ([facility]) Ibuprofen 600 MG Oral Tablet Ibuprofen 600 MG 10/03/2019 12:00:[address] active Ibuprofen 600 MG eCW1 ([facility]) Ibuprofen 600 MG Oral Tablet Ibuprofen 600 MG 10/03/2019 12:00:[address] active Ibuprofen 600 MG eCW1 ([facility]) Ibuprofen 600 MG Oral Tablet Ibuprofen 600 MG 10/03/2019 12:00:[address] active Ibuprofen 600 MG eCW1 ([facility]) Ibuprofen 600 MG Oral Tablet Ibuprofen 600 MG 10/03/2019 12:00:[address] active Ibuprofen 600 MG eCW1 ([facility]) Ibuprofen 600 MG Oral Tablet Ibuprofen 600 MG 10/03/2019 12:00:[address] active Ibuprofen 600 MG eCW1 ([facility]) Ibuprofen 600 MG Oral Tablet Ibuprofen 600 MG 10/03/2019 12:00:[address] active Ibuprofen 600 MG eCW1 ([facility]) Ibuprofen 600 MG Oral Tablet Ibuprofen 600 MG 10/03/2019 12:00:[address] active Ibuprofen 600 MG eCW1 ([facility]) Ibuprofen 600 MG Oral Tablet Ibuprofen 600 MG 10/03/2019 12:00:[address] active 1 tablet with food or mil k as needed eCW1 ([facility]) Ibuprofen 600 MG Oral Tablet Ibuprofen 600 MG 10/03/2019 12:00:[address] active Ibuprofen 600 MG eCW1 ([facility]) Ibuprofen 600 MG Oral Tablet Ibuprofen 600 MG 10/03/2019 12:00:[address] active Ibuprofen 600 MG eCW1 ([facility]) Ibuprofen 600 MG Oral Tablet Ibuprofen 600 MG 10/03/2019 12:00:[address] active Ibuprofen 600 MG eCW1 ([facility]) Ibuprofen 600 MG Oral Tablet Ibuprofen 600 MG 10/03/2019 12:00:[address] active Ibuprofen 600 MG eCW1 ([facility]) Ibuprofen 600 MG Oral Tablet Ibuprofen 600 MG 10/03/2019 12:00:[address] active 1 tablet with food or mil k as needed eCW1 ([facility]) Ibuprofen 600 MG Oral Tablet Ibuprofen 600 MG 10/03/2019 12:00:[address] active Ibuprofen 600 MG eCW1 ([facility]) Ibuprofen 600 MG Oral Tablet Ibuprofen 600 MG 10/03/2019 12:00:[address] active Ibuprofen 600 MG eCW1 ([facility]) Ibuprofen 600 MG Oral Tablet Ibuprofen 600 MG 10/03/2019 12:00:[address] active Ibuprofen 600 MG eCW1 ([facility]) tramadol hydrochloride 50 MG Oral Tablet Tramadol HCl 50 MG Tramadol HCl 50 MG 09/23/2019 12:00:00 AM EST 1.0 {tablet_as_needed} suspended Tramadol HCl 50 MG eCW1 ([facility]) tramadol hydrochloride 50 MG Oral Tablet Tramadol HCl 50 MG Tramadol HCl 50 MG 09/23/2019 12:00:00 AM EST 1.0 {tablet_as_needed} suspended Tramadol HCl 50 MG eCW1 ([facility]) tramadol hydrochloride 50 MG Oral Tablet Tramadol HCl 50 MG Tramadol HCl 50 MG 09/23/2019 12:00:00 AM EST 1.0 {tablet_as_needed} active Tramadol HCl 50 MG eCW1 ([facility]) tramadol hydrochloride 50 MG Oral Tablet Tramadol HCl 50 MG Tramadol HCl 50 MG 09/23/2019 12:00:00 AM EST 1.0 {tablet_as_needed} suspended Tramadol HCl 50 MG eCW1 ([facility]) tramadol hydrochloride 50 MG Oral Tablet Tramadol HCl 50 MG Tramadol HCl 50 MG 09/23/2019 12:00:00 AM EST active 1 tablet as needed eCW1 ([facility]) tramadol hydrochloride 50 MG Oral Tablet Tramadol HCl 50 MG Tramadol HCl 50 MG 09/23/2019 12:00:00 AM EST 1.0 {tablet_as_needed} suspended Tramadol HCl 50 MG eCW1 ([facility]) tramadol hydrochloride 50 MG Oral Tablet Tramadol HCl 50 MG Tramadol HCl 50 MG 09/23/2019 12:00:00 AM EST 1.0 {tablet_as_needed} active Tramadol HCl 50 MG eCW1 ([facility]) tramadol hydrochloride 50 MG Oral Tablet Tramadol HCl 50 MG Tramadol HCl 50 MG 09/23/2019 12:00:00 AM EST 1.0 {tablet_as_needed} suspended Tramadol HCl 50 MG eCW1 ([facility]) tramadol hydrochloride 50 MG Oral Tablet Tramadol HCl 50 MG Tramadol HCl 50 MG 09/23/2019 12:00:00 AM EST 1.0 {tablet_as_needed} active Tramadol HCl 50 MG eCW1 ([facility]) tramadol hydrochloride 50 MG Oral Tablet Tramadol HCl 50 MG Tramadol HCl 50 MG 09/23/2019 12:00:00 AM EST 1.0 {tablet_as_needed} active Tramadol HCl 50 MG eCW1 ([facility]) tramadol hydrochloride 50 MG Oral Tablet Tramadol HCl 50 MG Tramadol HCl 50 MG 09/23/2019 12:00:00 AM EST 1.0 {tablet_as_needed} suspended Tramadol HCl 50 MG eCW1 ([facility]) tramadol hydrochloride 50 MG Oral Tablet Tramadol HCl 50 MG Tramadol HCl 50 MG 09/23/2019 12:00:00 AM EST 1.0 {tablet_as_needed} suspended Tramadol HCl 50 MG eCW1 ([facility]) tramadol hydrochloride 50 MG Oral Tablet Tramadol HCl 50 MG Tramadol HCl 50 MG 09/23/2019 12:00:00 AM EST 1.0 {tablet_as_needed} suspended Tramadol HCl 50 MG eCW1 ([facility]) tramadol hydrochloride 50 MG Oral Tablet Tramadol HCl 50 MG Tramadol HCl 50 MG 09/23/2019 12:00:00 AM EST 1.0 {tablet_as_needed} suspended Tramadol HCl 50 MG eCW1 ([facility]) tramadol hydrochloride 50 MG Oral Tablet Tramadol HCl 50 MG Tramadol HCl 50 MG 09/23/2019 12:00:00 AM EST 1.0 {tablet_as_needed} active Tramadol HCl 50 MG eCW1 ([facility]) tramadol hydrochloride 50 MG Oral Tablet Tramadol HCl 50 MG Tramadol HCl 50 MG 09/23/2019 12:00:00 AM EST 1.0 {tablet_as_needed} suspended Tramadol HCl 50 MG eCW1 ([facility]) tramadol hydrochloride 50 MG Oral Tablet Tramadol HCl 50 MG Tramadol HCl 50 MG 09/23/2019 12:00:00 AM EST 1.0 {tablet_as_needed} active Tramadol HCl 50 MG eCW1 ([facility]) tramadol hydrochloride 50 MG Oral Tablet Tramadol HCl 50 MG Tramadol HCl 50 MG 09/23/2019 12:00:00 AM EST active 1 tablet as needed eCW1 ([facility]) tramadol hydrochloride 50 MG Oral Tablet Tramadol HCl 50 MG Tramadol HCl 50 MG 09/23/2019 12:00:00 AM EST 1.0 {tablet_as_needed} suspended Tramadol HCl 50 MG eCW1 ([facility]) tramadol hydrochloride 50 MG Oral Tablet Tramadol HCl 50 MG Tramadol HCl 50 MG 09/23/2019 12:00:00 AM EST 1.0 {tablet_as_needed} active Tramadol HCl 50 MG eCW1 ([facility]) tramadol hydrochloride 50 MG Oral Tablet Tramadol HCl 50 MG Tramadol HCl 50 MG 09/23/2019 12:00:00 AM EST 1.0 {tablet_as_needed} active Tramadol HCl 50 MG eCW1 ([facility]) tramadol hydrochloride 50 MG Oral Tablet Tramadol HCl 50 MG Tramadol HCl 50 MG 09/23/2019 12:00:00 AM EST 1.0 {tablet_as_needed} active Tramadol HCl 50 MG eCW1 ([facility]) tramadol hydrochloride 50 MG Oral Tablet Tramadol HCl 50 MG Tramadol HCl 50 MG 09/23/2019 12:00:00 AM EST 1.0 {tablet_as_needed} active Tramadol HCl 50 MG eCW1 ([facility]) tramadol hydrochloride 50 MG Oral Tablet Tramadol HCl 50 MG Tramadol HCl 50 MG 09/23/2019 12:00:00 AM EST active 1 tablet as needed eCW1 ([facility]) tramadol hydrochloride 50 MG Oral Tablet Tramadol HCl 50 MG Tramadol HCl 50 MG 09/23/2019 12:00:00 AM EST 1.0 {tablet_as_needed} active Tramadol HCl 50 MG eCW1 ([facility]) tramadol hydrochloride 50 MG Oral Tablet Tramadol HCl 50 MG Tramadol HCl 50 MG 09/23/2019 12:00:00 AM EST 1.0 {tablet_as_needed} active Tramadol HCl 50 MG eCW1 ([facility]) tramadol hydrochloride 50 MG Oral Tablet Tramadol HCl 50 MG Tramadol HCl 50 MG 09/23/2019 12:00:00 AM EST 1.0 {tablet_as_needed} suspended Tramadol HCl 50 MG eCW1 ([facility]) tramadol hydrochloride 50 MG Oral Tablet Tramadol HCl 50 MG Tramadol HCl 50 MG 09/23/2019 12:00:00 AM EST 1.0 {tablet_as_needed} suspended Tramadol HCl 50 MG eCW1 ([facility]) tramadol hydrochloride 50 MG Oral Tablet Tramadol HCl 50 MG Tramadol HCl 50 MG 09/23/2019 12:00:00 AM EST 1.0 {tablet_as_needed} suspended Tramadol HCl 50 MG eCW1 ([facility]) tramadol hydrochloride 50 MG Oral Tablet Tramadol HCl 50 MG Tramadol HCl 50 MG 09/23/2019 12:00:00 AM EST 1.0 {tablet_as_needed} suspended Tramadol HCl 50 MG eCW1 ([facility]) tramadol hydrochloride 50 MG Oral Tablet Tramadol HCl 50 MG Tramadol HCl 50 MG 09/23/2019 12:00:00 AM EST 1.0 {tablet_as_needed} suspended Tramadol HCl 50 MG eCW1 ([facility]) tramadol hydrochloride 50 MG Oral Tablet Tramadol HCl 50 MG Tramadol HCl 50 MG 09/23/2019 12:00:00 AM EST active 1 tablet as needed eCW1 ([facility]) tramadol hydrochloride 50 MG Oral Tablet Tramadol HCl 50 MG Tramadol HCl 50 MG 09/23/2019 12:00:00 AM EST 1.0 {tablet_as_needed} suspended Tramadol HCl 50 MG eCW1 ([facility]) tramadol hydrochloride 50 MG Oral Tablet Tramadol HCl 50 MG Tramadol HCl 50 MG 09/23/2019 12:00:00 AM EST 1.0 {tablet_as_needed} suspended Tramadol HCl 50 MG eCW1 ([facility]) tramadol hydrochloride 50 MG Oral Tablet Tramadol HCl 50 MG Tramadol HCl 50 MG 09/23/2019 12:00:00 AM EST 1.0 {tablet_as_needed} suspended Tramadol HCl 50 MG eCW1 ([facility]) tramadol hydrochloride 50 MG Oral Tablet Tramadol HCl 50 MG Tramadol HCl 50 MG 09/23/2019 12:00:00 AM EST 1.0 {tablet_as_needed} suspended Tramadol HCl 50 MG eCW1 ([facility]) tramadol hydrochloride 50 MG Oral Tablet Tramadol HCl 50 MG Tramadol HCl 50 MG 09/23/2019 12:00:00 AM EST 1.0 {tablet_as_needed} suspended Tramadol HCl 50 MG eCW1 ([facility]) tramadol hydrochloride 50 MG Oral Tablet Tramadol HCl 50 MG Tramadol HCl 50 MG 09/23/2019 12:00:00 AM EST active 1 tablet as needed eCW1 ([facility]) tramadol hydrochloride 50 MG Oral Tablet Tramadol HCl 50 MG Tramadol HCl 50 MG 09/23/2019 12:00:00 AM EST 1.0 {tablet_as_needed} active Tramadol HCl 50 MG eCW1 ([facility]) tramadol hydrochloride 50 MG Oral Tablet Tramadol HCl 50 MG Tramadol HCl 50 MG 09/23/2019 12:00:00 AM EST 1.0 {tablet_as_needed} active Tramadol HCl 50 MG eCW1 ([facility]) tramadol hydrochloride 50 MG Oral Tablet Tramadol HCl 50 MG Tramadol HCl 50 MG 09/23/2019 12:00:00 AM EST 1.0 {tablet_as_needed} active Tramadol HCl 50 MG eCW1 ([facility]) tramadol hydrochloride 50 MG Oral Tablet Tramadol HCl 50 MG Tramadol HCl 50 MG 09/23/2019 12:00:00 AM EST active 1 tablet as needed eCW1 ([facility]) tramadol hydrochloride 50 MG Oral Tablet Tramadol HCl 50 MG Tramadol HCl 50 MG 09/23/2019 12:00:00 AM EST 1.0 {tablet_as_needed} active Tramadol HCl 50 MG eCW1 ([facility]) tramadol hydrochloride 50 MG Oral Tablet Tramadol HCl 50 MG Tramadol HCl 50 MG 09/23/2019 12:00:00 AM EST 1.0 {tablet_as_needed} active Tramadol HCl 50 MG eCW1 ([facility]) Insurance Providers Payer name Policy type / Coverage type Policy ID Covered constitution party ID Covered constitution party's relationship to uribe Policy Uribe Plan Information [employer] MCDHMO [id number] SP [id number] [facility] O [id number] S [id number] [employer]AN MCDHMO [id number] SP [id number] [facility] MOE [id number] SP [id number] [facility] MOE [id number] SP [id number] [facility] MEDICAID [id number] Kisha [id number] [facility] [id number] SP [id number] [facility] I [id number] Self [id number] [employer] COMM[employer]ITY PLAN XIX [id number] 18 [id number] MEDICAID M [id number] S [id number] ANSI-Medicaid [id number] ANSI-Medicaid [id number] ANSI-Medicaid [id number] ANSI-Medicaid [id number] ANSI-Medicaid [id number] [facility] Commercial [id number] Self [id number] ANSI-Medicaid [id number] ANSI-Medicaid [id number] Medicaid [place] Medig[place] Part B [id number] Self [id number] BS Moe Hmo Blue Option Medigap Part B [id number] Self [id number] [facility] Community Plan Commercial [id number] Self [id number] ANSI-Medicaid [id number] [place] B [id number] Self [id number] BS Moe Hmo Blue Option Medigap Part B [id number] Self [id number] ANSI-Medicaid [id number] ANSI-Medicaid [id number] ANSI-Medicaid [id number] [place] [id number] Self [id number] BS Moe H[employer] Blue Option Medigap Part B [id number] Self [id number] ANSI-Medicaid [id number] ANSI-Medicaid [id number] ANSI-Medicaid [id number] ANSI-Medicaid [id number] ANSI-Medicaid [id number] [place] [facility] [id number] ANSI-Medicaid [id number] ANSI-Medicaid [id number] ANSI-Medicaid [id number] ANSI-Medicaid [id number] ANSI-Medicaid [id number] [facility] Health Maintenance Organization (HMO) [id number] Self [id number] [facility] Health Maintenance Organization (HMO) [id number] Self [id number] ANSI-Medicaid [id number] ANSI-Medicaid [id number] ANSI-Medicaid [id number] ANSI-Medicaid [id number] ANSI-Medicaid [id number] ANSI-Medicaid [id number] ANSI-Medicaid [id number] ANSI-Medicaid [id number] ANSI-Medicaid [id number] ANSI-Medicaid [id number] ANSI-Medicaid [id number] ANSI-Medicaid [id number] ANSI-Medicaid [id number] ANSI-Medicaid [id number] [facility] [employer] (HMO) [id number] Self [id number] [facility] [employer] (HMO) [id number] Self [id number] ANSI-Medicaid [id number] ANSI-Medicaid [id number] ANSI-Medicaid [id number] ANSI-Medicaid [id number] ANSI-Medicaid [id number] ANSI-Medicaid [id number] ANSI-Medicaid [id number] ANSI-Medicaid [id number] ANSI-Medicaid [id number] ANSI-Medicaid [id number] ANSI-Medicaid [id number] ANSI-Medicaid [id number] ANSI-Medicaid [id number] ANSI-Medicaid [id number] ANSI-Medicaid [id number] ANSI-Medicaid [id number] ANSI-Medicaid [id number] ANSI-Medicaid [id number] ANSI-Medicaid [id number] ANSI-Medicaid [id number] ANSI-Medicaid [id number] ANSI-Medicaid [id number] ANSI-Medicaid [id number] ANSI-Medicaid [id number] ANSI-Medicaid [id number] ANSI-Medicaid [id number] ANSI-Medicaid [id number] ANSI-Medicaid [id number] ANSI-Medicaid [id number] ANSI-Medicaid [id number] [place] [facility] Comm PLN Commercial [id number] Self [id number] [facility] Community Plan Commercial [id number] Self [id number] ANSI-Medicaid [id number] ANSI-Medicaid [id number] ANSI-Medicaid [id number] ANSI-Medicaid [id number] ANSI-Medicaid [id number] ANSI-Medicaid [id number] ANSI-Medicaid [id number] ANSI-Medicaid [id number] ANSI-Medicaid [id number] ANSI-Medicaid [id number] ANSI-Medicaid [id number] ANSI-Medicaid [id number] ANSI-Medicaid [id number] ANSI-Medicaid [id number] [facility] MEDICAID [id number] [facility] [id number] ANSI-Medicaid [id number] ANSI-Medicaid [id number] ANSI-Medicaid [id number] ANSI-Medicaid [id number] ANSI-Medicaid [id number] ANSI-Medicaid [id number] ANSI-Medicaid [id number] ANSI-Medicaid [id number] ANSI-Medicaid [id number] ANSI-Medicaid [id number] ANSI-Medicaid [id number] ANSI-Medicaid [id number] [facility] Health Maintenance Organization [place] [id number] Self [id number] ANSI-Medicaid [id number] ANSI-Medicaid [id number] ANSI-Medicaid [id number] ANSI-Medicaid [id number] ANSI-Medicaid [id number] ANSI-Medicaid [id number] ANSI-Medicaid [id number] ANSI-Medicaid [id number] [facility] Health Maintenance [facility] ([facility] [id number] Self [id number] ANSI-Medicaid [id number] ANSI-Medicaid [id number] ANSI-Medicaid [id number] ANSI-Medicaid [id number] [facility] Maintenance [facility] [place] [id number] Self [id number] ANSI-Medicaid [id number] ANSI-Medicaid [id number] ANSI-Medicaid [id number] ANSI-Medicaid [id number] ANSI-Medicaid [id number] ANS-Medicaid [id number] ANSI-Medicaid [id number] ANSI-Medicaid [id number] ANSI-Medicaid [id number] ANSI-Medicaid [id number] ANSI-Medicaid [id number] ANSI-Medicaid [id number] [facility] Health Maintenance Organization (O) [id number] Self [id number] ANSI-Medicaid [id number] ANSI-Medicaid [id number] ANSI-Medicaid [id number] [facility] Health Maintenance Organization [place] [id number] Self [id number] ANSI-Medicaid [id number] ANSI-Medicaid [id number] ANSI-Medicaid [id number] ANSI-Medicaid [id number] ANSI-Medicaid [id number] ANSI-Medicaid [id number] ANSI-Medicaid [id number] ANSI-Medicaid [id number] ANSI-Medicaid [id number] ANSI-Medicaid [id number] ANSI-Medicaid [id number] ANSI-Medicaid [id number] ANSI-Medicaid [id number] ANSI-Medicaid [id number] ANSI-Medicaid [id number] ANSI-Medicaid [id number] [facility] MEDICAID PI PI ANSI-Medicaid [id number] ANSI-Medicaid [id number] ANSI-Medicaid [id number] ANSI-Medicaid [id number] ANSI-Medicaid [id number] ANSI-Medicaid [id number] ANSI-Medicaid [id number] ANSI-Medicaid [id number] ANSI-Medicaid [id number] ANSI-Medicaid [id number] [facility] Health Maintenance Organization (O) [id number] Self [id number] ANSI-Medicaid [id number] ANSI-Medicaid [id number] Medicaid [place] [id number] Self [id number] [place] Moe Hmo Blue Option Medigap Part B [id number] Self [id number] ANSI-Medicaid [id number] ANSI-Medicaid [id number] ANSI-Medicaid [id number] ANSI-Medicaid [id number] ANSI-Medicaid [id number] ANSI-Medicaid [id number] ANSI-Medicaid [id number] ANSI-Medicaid [id number] ANSI-Medicaid [id number] ANSI-Medicaid [id number] ANSI-Medicaid [id number] ANSI-Medicaid [id number] ANSI-Medicaid [id number] ANSI-Medicaid [id number] ANSI-Medicaid [id number] ANSI-Medicaid [id number] [facility] COMMUNITY PLAN [facility] [id number] SP [id number] ANSI-Medicaid [id number] [facility] Health Maintenance Organization (O) [id number] Self [id number] [place] [id number] Self [id number] BS [facility] Medigap Part B [id number] Self [id number] [facility] Health Maintenance Organization (HMO) [id number] Self [id number] [place] [id number] Self [id number] BS Moe Hmo Blue Option Medigap Part B [id number] Self [id number] [facility] [id number] S [id number] [facility] Moe/[facility] Health Maintenance Organization (HMO) [id number] Self [id number] [place] [id number] Self [id number] BS Moe Hmo Blue Option Medigap Part B [id number] Self [id number] [place] B [id number] Self [id number] BS Moe Hmo Blue Option Medigap Part B [id number] Self [id number] UNHC COMMUNITY PLAN MCDHMO [id number] SP [id number] [facility] Community Plan Commercial [id number] Self [id number] [facility] Moe/[facility] Health Maintenance Organization (HMO) [id number] Self [id number] [facility] Moe/[facility] Health Maintenance Organization (HMO) [id number] Self [id number] [place] [id number] Self [id number] BS Moe Hmo Blue Option Medigap Part B [id number] Self [id number] UNHC COMMUNITY PLAN MCDHMO [id number] SP [id number] [place] Part B [id number] Self [id number] BS Moe Hmo Blue Option Medigap Part B [id number] Self [id number] UNHC COMMUNITY PLAN MCDHMO [id number] SP [id number] [facility] I [id number] Self [id number] [place] [id number] Self [id number] BS Moe Hmo Blue Option Medigap Part B [id number] Self [id number] [place] Part B [id number] Self [id number] BS Moe Hmo Blue Option Medigap Part B [id number] Self [id number] [place] B [id number] Self [id number] BS Moe Hmo Blue Option Medigap Part B [id number] Self [id number] [facility] MEDICAID MOE HMO [id number] S [id number] UNHC COMMUNITY PLAN MCDHMO [id number] SP [id number] UNHC COMMUNITY PLAN MCDHMO [id number] SP [id number] [place] Part B Self BS oMe Hmo Blue Option Medigap Part B [id number] Self [id number] [facility] Community Plan Commercial [id number] Self [id number] [facility] Hmo Commercial Self UNHC COMMUNITY PLAN MCDHMO [id number] SP [id number] [facility] Moe/[facility] Health Maintenance Organization (HMO) Self [facility] [place] Health Maintenance Organization (HMO) Self MEDICAID [id number] [facility] P UNAVAILABLE C UNAVAILABLE BLUE CROSS MCDERMOTT PLAN [id number] SP [id number] EXCELLUS BCBS P [id number] S [id number] EXCELLUS BCBS P [id number] S [id number] EXCELLUS BCBS P UNAVAILABLE S UNAV AILABLE BC HMOBLUE OPTION MC 2 [id number] 1 [id number] [place] 3 [id number] N BLUE CROSS MCDERMOTT PLAN [id number] SP [id number] SELF PAY 2 UNAVAILABLE 1 UNAVAILA BLE BC HMOBLUE OPTION MC 2 [id number] 1 [id number] Problems, Conditions, and Diagnoses Code Display Name Description Problem Type Effective Dates Data Source(s) 517448340 Convalescence after surgery Convalescence after surger y Problem 08/20/2020 12:00:00 AM EST [facility] ([facility] S31.819D [id number] Unspecified open wou nd of right buttock, subsequent encounter Problem 08/09/2020 12:00:00 AM EST eCW1 ([facility]) M46.1 49615197 Sacroiliitis Problem 08/08/2020 12:00:00 AM EST eCW1 ([facility]) H60.93 4687491 Inflammation of both ear canals Problem 08/07/2020 12:00:00 AM EST eCW1 ([facility]) S31.819A 161648271 Wound of right buttock, initial encounter Problem 07/26/2020 12:00:00 AM EDT eCW1 ([facility]) Pain due to internal orthope dic prosthetic devices, implants and grafts, initial encounter Pain due to internal orthopedic prosthet ic devices, implants and grafts, initial encounter Problem 05/30/2020 12:00:00 AM EDT MED [facility] ([facility] Cellulitis of right toe Cellulitis of right toe Proble m 04/26/2020 12:00:00 AM EDT - 05/30/2020 12:00:00 AM EDT [facility] ([facility] 62267993 Pain in limb Pain in limb Problem 04/26/2020 12:0 0:00 AM EDT - 05/06/2020 12:00:00 AM EDT [facility] ([facility] 17069396 Ulcer of foot Ulcer of foot Problem 04/26/2020 12 :00:00 AM EDT - 05/06/2020 12:00:00 AM EDT [facility] ([facility] M47.817 32943724 Spondylosis without myelopathy or radiculopathy, lumbosacral region Problem 04/17/2020 12:00:00 AM EDT eCW1 ([facility]) 322531558 Foreign body in heel Foreign body in heel Problem 04/04/2020 12:00:00 AM EDT - 04/26/2020 12:00:00 AM EDT [facility] ([facility] 30278878 Superficial foreign body of foot without major open wound AND without infection Superficial foreign body of foot without major open wound AND without infection Problem 04/04/2020 12:00:00 AM EDT - 04/26/2020 12:00:00 AM EDT [facility] ([facility] H69.83 16096415 Dysfunction of both eustachian tubes Prob gaurang 01/27/2020 12:00:00 AM EDT eCW1 ([facility]) H65.93 61834252 Bilateral serous otitis media, unspecifie d chronicity Problem 01/27/2020 12:00:00 AM EDT eCW1 ([facility]) H69.83 91434159 Dysfunction of both eustachian tubes Prob gaurang 01/27/2020 12:00:00 AM EDT eCW1 ([facility]) H65.93 46064054 Bilateral serous otitis media, unspecifie d chronicity Problem 01/27/2020 12:00:00 AM EDT eCW1 ([facility]) 945272394 Hammer toe Hammer toe Problem 12/02/2019 12:00:00 AM ES T [facility] ([facility] 8932541 Tinea pedis Tinea pedis Problem 12/02/2019 12:0 0:00 AM EST - 05/06/2020 12:00:00 AM EDT [facility] ([facility] Corns and callosities Corns and callosities Problem 10/02/2019 12:00:00 AM EST [facility] ([facility] 54127856 Plantar fascial fibromatosis Plantar fascial fibromato sis Problem 10/02/2019 12:00:00 AM EST [facility] ([facility] R00.2 Palpitations Palpitations Diagnosis 07/03/2020 11:53:21 A M EDT [facility] 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 Atherosclerotic heart disease of k[place] Diagnosis 07/03/2020 11:53:21 AM EDT [facility] Y[address] or not applicable Unspecified place or not applicable Diagnosis 03/27/2020 04:32:00 PM EDT [facility] [id number] Exposure to other specified factors, ini tial encounter Exposure to other specified factors, initial encounter Diagnosis 03/27/2020 04:32:00 PM EDT [facility] X14435 Personal history of nicotine dependence Personal history of nicotine dependence Diagnosis 03/27/2020 04:32:00 PM EDT [facility] I66722 Latex allergy status Latex allergy status Diagnosis 03/27/2020 04:32:00 PM EDT [facility] Z951 Presence of aortocoronary bypass graft P resence of aortocoronary bypass graft Diagnosis [facility]/27[facility]2020 [facility] (current) use of aspirin residential (cu rrent) use of aspirin Diagnosis [facility]/27[facility]2020 [facility] Hypothyroidism, unspecified Hypothyroidism, unspecifie d Diagnosis 03/27/2020 04[id number] Strain of muscle and tendon of back wall of thorax, initial encounter Strain of muscle and tendon of back wall of thorax, initial encounter Diagnosis 03/27/2020 04[facility] [id number] Strain of muscle, fascia and tendon of l ower back, initial encounter Strain of muscle, fascia and tendon of lower back, initial encounter Diagnosis 03/27/2020 04:[facility] [id number] Strain of muscle, fascia and tendon at n chantel level, initial encounter Strain of muscle, fascia and tendon at neck level, initial encounter Diagnosis 03/27/2020 04[facility]32[facility] M542 Cervicalgia Cervicalgia Diagnosis 03/27/2020 04:32:00 PM [facility] I31.3 Pericardial effusion (noninflammatory) P ericardial effusion (noninflammatory) Diagnosis 10/03/2019 01:59:44 PM [facility] R55 Syncope and collapse Syncope and collapse Diagnosis 10/03/2019 01:59:44 PM [facility] G56.00 Carpal tunnel syndrome, unspecified uppe r limb Carpal tunnel syndrome, unspecified uppe Diagnosis 10/03/2019 01:59:44 PM [facility] M54.30 Sciatica, unspecified side Sciatica, unspecified side Diagnosis 10/03/2019 01:59:44 PM [facility] Z98.890 Other specified postprocedural states Ot her specified postprocedural states Diagnosis 10/03/2019 01:59:44 PM [facility] G47.30 Sleep apnea, unspecified Sleep apnea, unspecified Diag nosis 10/03/2019 01:59:44 PM [facility] K21.9 Gastro-esophageal reflux disease without esophagitis Gastro-esophageal reflux disease without Diagnosis 10/03/2019 01:59:44 PM [facility] F41.8 Other specified anxiety disorders Other specifie d anxiety disorders Diagnosis 10/03/2019 01:59:44 PM [facility] E03.9 Hypothyroidism, unspecified Hypothyroidism, unspecifie d Diagnosis 10/03/2019 01:59:44 PM [facility] I10 Essential (primary) hypertension Essential (primary) h ypertension Diagnosis 10/03/2019 01:59:44 PM [facility] E78.00 Pure hypercholesterolemia, unspecified P ure hypercholesterolemia, unspecified Diagnosis 10/03/2019 01:59:44 PM [facility] E78.5 Hyperlipidemia, unspecified Hyperlipidemia, unspecifie d Diagnosis 10/03/2019 01:59:44 PM [facility] Surgeries/Procedures Procedure Description Date Indications Data Source(s) RADEX HAND MINIMUM 3 VIEWS 11/14/2020 12:00:00 AM EST [facility] ([facility] ) CLTX METACARPAL FX W/O MANIPULATION EACH BONE 10/29/19 21 12:00:00 AM EST [facility] ([facility] ) ARTHROCENTESIS ASPIR&/INJECTION SMALL JT/BURSA 021 12:00:00 AM EST [facility] ([facility] ) ARTHROCENTESIS ASPIR&/INJECTION MAJOR JT/BURSA 021 12:00:00 AM EST [facility] ([facility] ) FINE NEEDLE ASPIRATION W/O IMAGING GUIDANCE 07/26/2020 12:00:00 AM EDT eCW1 ([facility]) RADEX FOOT COMPLETE MINIMUM 3 VIEWS 07/23/2020 12:00:0 0 AM EDT [facility] ([facility] Remove Support Implant Deep 07/18/2020 12:00:00 AM EDT [facility] ([facility] Hammertoe Proc One Toe 07/18/2020 12:00:00 AM EDT [facility] Ostectomy/Exostectomy/Condylectomy Metatarsal Head 07/18/2020 12:00:00 AM EDT [facility] ARTHROCENTESIS ASPIR&/INJECTION MAJOR JT/BURSA 12:00:00 AM EDT [facility] ([facility] ) RADEX SHOULDER COMPLETE MINIMUM 2 VIEWS 05/01/2020 12: 00:00 AM EDT [facility] ([facility]) Therapeutic, Prophylactic Or Diagnostic Injection Subq/Im 04/30/2020 12:00:00 AM EDT [facility] ([facility]) DEBRIDEMENT OPEN WOUND 20 SQ CM/< 04/12/2020 12:00:00 AM EDT [facility] RADIOLOGIC EXAM KNEE COMPLETE 4/MORE VIEWS 04/05/2020 12:00:00 AM EDT [facility] ([facility]) INCISION&REMOVAL FOREIGN BODY SUBQ TISS SIMPLE 12:00:00 AM EDT [facility] ([facility] ARTHROCENTESIS ASPIR&/INJECTION MAJOR JT/BURSA 12:00:00 AM EDT [facility] ([facility]) Neuroplasty/Transposition, Ulnar Nerve AT Elbow 2019 12:00:00 AM EDT [facility] ([facility]) EKG- ALL NON MCR/TRI PAYERS 12/16/2019 12:00:00 AM EDT eCW1 ([facility]) RADEX FOOT COMPLETE MINIMUM 3 VIEWS 11/23/2019 12:00:0 0 AM EST [facility] ([facility] ) ESTABILISHED PATIENT [facility] CHARGE 12:00:00 AM EST eCW1 ([facility]) RADEX FOOT COMPLETE MINIMUM 3 VIEWS 11/21/2019 12:00:0 0 AM EST [facility] ([facility] TENDON SHEATH INCISION 10/18/2019 12:00:00 AM EST [facility] ([facility]) TENDON SHEATH INCISION 10/18/2019 12:00:00 AM EST [facility] ([facility]) Endoscopy Wrist W/Release Transverse Carpal Ligament 10/18/2019 12:00:00 AM EST [facility] ([facility]) Results ID Date Data Source [id number] 11/05/2020 09:50:00 AM EST [facility] ([facility]) Name Value Range Interpretation Code Description Data Toma rce(s) Supporting Document(s) Laboratory test finding (navigational concept) Laboratory test result [facility] ([facility]) ID Date Data Source [id number] 07/21/2020 11:01:24 PM EDT [facility] Name Value Range Interpretation Code Description Data Toma rce(s) Supporting Document(s) &PDF [facility] BSRNVe1tTyZOOlNf19/VIHocLHIqm5XbLPioCWz0RNceFSXoT2LgwBhcEUQVIL0FTCICPNSNEi2VHCds 0b3 TkRQXpXoUWzMN3GA8dBAXfyrJdcsH5fQ6eLH5MHTO+Zp6HZB3ll1CxFOz2FPTsm9XhIOuvZCt5W4SlvB FatuUwGnpevMIMRMRbYBGoW1djkxt7kBZcJMA2Dy0NAdJkt0CyTASuFSzBjf6gE5/TWBB+X2n/w5H2YY hCflHbvepmpLTHjDy6zYvFDkJICF8afWLg0UHTx20g 2jWpAQyzksLpxuT5u3+Z+fE8xyCGJOx//2wMxNCTqyye6zKMrpbZvR+/dtlqk6aA0v/TqfKVTy85sbCZ GFeeVg0Rv/MH8OloqS4QrOG+QcxZWVfTi1N3hH+fK4j3KlybNbcqxVvDpqwmT3XMR1n0xB3AEOt39de3 l4nSpq2YW168e9ZDKgus52506icSw66E2+q7ly0r72 [file] ICAgICAgICAgICAgICAgICAgICAgICAgICAgICAgICAgICAgICAgICAgICAgICAgICAgICAgICAgICAg ICAgICAgICAgICAgICAgICAgICAgICAgDQogICAgICAgICAgICAgICAgICAgICAgICAgICAgICAgICAg ICAgICAgICAgICAgICAgICAgICAgICAgICAgICAgIC AgICAgICAgICAgICAgICAgICAgICAgICAgICAgICAgICAgDQogICAgICAgICAgICAgICAgICAgICAgIC AgICAgICAgICAgICAgICAgICAgICAgICAgICAgICAgICAgICAgICAgICAgICAgICAgICAgICAgICAgIC AgICAgICAgICAgICAgICAgDQogICAgICAgICAgICAg ICAgICAgICAgICAgICAgICAgICAgICAgICAgICAgICAgICAgICAgICAgICAgICAgICAgICAgICAgICAg ICAgICAgICAgICAgICAgICAgICAgICAgICAgDQogICAgICAgICAgICAgICAgICAgICAgICAgICAgICAg ICAgICAgICAgICAgICAgICAgICAgICAgICAgICAgIC AgICAgICAgICAgICAgICAgICAgICAgICAgICAgICAgICAgICAgDQogICAgICAgICAgICAgICAgICAgIC AgICAgICAgICAgICAgICAgICAgICAgICAgICAgICAgICAgICAgICAgICAgICAgICAgICAgICAgICAgIC AgICAgICAgICAgICAgICAgICAgDQogICAgICAgICAg ICAgICAgICAgICAgICAgICAgICAgICAgICAgICAgICAgICAgICAgICAgICAgICAgICAgICAgICAgICAg ICAgICAgICAgICAgICAgICAgICAgICAgICAgICAgDQogICAgICAgICAgICAgICAgICAgICAgICAgICAg ICAgICAgICAgICAgICAgICAgICAgICAgICAgICAgIC AgICAgICAgICAgICAgICAgICAgICAgICAgICAgICAgICAgICAgICAgDQogICAgICAgICAgICAgICAgIC AgICAgICAgICAgICAgICAgICAgICAgICAgICAgICAgICAgICAgICAgICAgICAgICAgICAgICAgICAgIC AgICAgICAgICAgICAgICAgICAgICAgDQogICAgICAg ICAgICAgICAgICAgICAgICAgICAgICAgICAgICAgICAgICAgICAgICAgICAgICAgICAgICAgICAgICAg SKNcBEPoRFAlNRPdQMJtTJIcMYHsRPDnPIIfITGxEWKpVWs9V1ysQYKdPNDgZL6sRMv6Wk3+DQoNCmVu IOK6uiIylU7UMM7dy2LaDDnpWSSlx0DnRDh0XC0DAT YeCSglWD3CIPwxkg0AEQEdBXZbmRTBh9lqSiPyMOB6KLWyZwlcTL3DJPLyW7mhayDoHGBsEUQMYEibIB MFEY3VLbZiM8GdtY60WXUHXc6+RYzfhySyZueUIuC5VKVbn0PkEMh3DG2NCGQwFOoqCO8OSEImjX2vTB fjSO1HDlBuYMYlZEKBHjNpD40liGVcCUn1N1UsYkSl ZGVkRmlsZXMgPDwvTmFtZXMgWyBdDQogID4+ID4+PJyvKV1DCZhzqaLaCKIpBs0SXHIrHPZ9NRNarOKs LcPfPUDAPQboGY0BeRObKOA2qL4yZJinSSHoFQLfI5cXWzGruXbtHE37vHgnrmUgsYUgJMl+Md5RGO3r h7QcSIh9mcStGQxhELX9MNmrAFTrPYSvWNBdBBE3IL M0HPNLIrPuHIDdPVOnNKqfSEGnLAAsrk0QGACfZVXeUsGzThOxRZEaUBZlENmxMXUeUHB3Shr4MXCmUA HrGJ8FYaJoOUMqNUZcWOXtKKYrOHIhyt1LOVXuGNOrHuZdJVLeJFLlKJOmSRndBSFaPQMeFaMyTKDeMM DjVJ5MFrXeOCUtJOM5OoomCJOvJZWajy9ZYYQiNLMt KNIpXZBgTBZlHNHbDXoeWLXiIHR2XRqySDZuUDGfLX7ZAeUeJEKcEESvUJMmJDVxOHBdfw1DUDZzODSe KGR9TbRzTRRqFWJgTAoiAWWyOAE5KHA5YMElAPOrVB5WCjJjPBTuCTX8OmtyFJLgTUZppi5VMIMnBLDw NjgxNiAwMDAwMCBuDQowMDAwMDExNjcyIDAwMDAwIG 7NRbFwWJUwVDM0TRnuPBChUMNror7EDYJmWUFuPjHiZGLvJUPvCKKzUDmlKDTfZCUtUEUvNRTbXYIeHU 9OWkVpFNIbPTZ7XFdrMYYdSHAopp6GHYPxDLAsCiOuGIHgVFDpTDYbBCwrUUIpHSHmSdY7OQJrJEZtTH 0AScVqSABgCCL1XShrDZCiCNDavv1OPCRaJFWcFTP9 CaOiUDSjTDHxQSwqGWZjDWRwUZgkSFFdEOMyQA8TXqBwQBPjCwMcWxkoMTCuJQCuid2LEJEuEBVeWFD5 EOPkYJBnIHMmWBc6vdPalHMrIVl9PV4QM0JputYsQtlUJq6Li187KEV7BEAjJt7FT6vtYp8bOTYiKCXZ Ug4XTEd9VBU0XgWoGOo7TEIfYkB0CDB6HhD2IjTmG9 F1GSLoC7O+KKmwRXygFpH3DWddTCTnZbogIatrSIrqTXK5Zhw3EuBmMB6iXABLHf8+DQpzdGFydHhyZW FNXeE5CrO9WApcOGEDSf4L ID Date Data Source [id number] 07/18/2020 10:02:00 AM EDT [facility] (Kristyn Joe.P.M., [...] MD 07/19/2020 09 ID Date Data Source [id number] 07/17/2020 11:13:00 AM EDT [facility] ([facility]yn Joe.P.Jeronimo, [...] Little GFR Left</content>
<content>ESRD GFR <15 on DOUBLE END SEWER</content>
<content></content> Sodium Level 142 meq/L 136-145 [facility] [...] ([facility] ID Date Data Source [id number] 07/17/2020 11:13:00 AM EDT [facility] ([facility]yn Joe.P.Jeronimo, [...] ([facility] ID Date Data Source [id number] 07/13/2020 11:30:00 AM EDT [facility] Name Value Range Interpretation Code Description Data Toma rce(s) Supporting Document(s) SARS coronavirus 2 RNA [facility] This lab was ordered by [facility] and reported by [facility]. ID Date Data Source [id number] 06/14/2020 11:00:00 AM EDT [facility] ([facility]) Name Value Range Interpretation Code Description Data Toma rce(s) Supporting Document(s) Coronavirus 2019 Nasopharygeal Laboratory [facility]) This nucleic acid amplification test was developed and its performance characteristics determined by [facility]. Nucleic acid amplification tests include PCR and [...] detected) result in this assay. Performed at: [facility] [id number] Process Engineering Technician: Ruth Ann Gonzalez MD, Phone: [phone] Not Detected ID Date Data Source [id number] 06/14/2020 11:00:00 AM EDT [facility] Name Value Range Interpretation Code Description Data Toma rce(s) Supporting Document(s) SARS coronavirus 2 RNA [facility] This lab was ordered by [facility] and reported by [facility]. ID Date Data Source [id number] 04/13/2020 01:30:00 PM EDT [facility] Name Value Range Interpretation Code Description Data Toma rce(s) Supporting Document(s) SARS coronavirus 2 RNA [facility] This lab was ordered by [facility] and reported by [facility]. ID Date Data Source [id number] 04/12/2020 09:00:00 AM EDT [facility] ([facility]yn Joe.P.M., [...] CSLI standards.</content>
<content></content> ID Date Data Source [id number] 04/11/2020 09:51:00 AM EDT [facility] ([facility]) Name Value Range Interpretation Code Description Data Toma rce(s) Supporting Document(s) Laboratory test finding (navigational concept) Laboratory test result [facility] ([facility]) ID Date Data Source [id number] 03/28/2020 12:06:00 PM EDT [facility] [address] [place] [address] PHONE: [phone] FAX: [phone] Name .................. : JUVE Hawthorne Acct Number.................. : [id number] ROOM. ................. : VA-17 MR Number ................... : [id number] Stay type ............. : E/R Discharge Date......... ... : 03/27/20 Admit Date ......... : 03/27/20 Admit Phys .................... : STEVE Date of ....... : 1965 Family Phys ................... : [employer] Phone .................. : [phone] Age ................................ : 54 Film# .................. .:[id number] Sex ................................. : M Unsigned transcriptions are preliminary reports and do not represent a medical or legal document SPINE THORACIC [id number] COMPLETE:03/27/20 19:04 KBO [id number] Reason(s): Mid Back Pain THORACIC SPINE X-RAY: INDICATION: Pain. FINDINGS: Routine views show normal alignment. The vertebral bodies and disc spaces are well maintained. The pedicles and posterior elements appear intact. No paraspinal masses are seen. IMPRESSION: Negative thoracic spine. Electronically Reviewed and Signed By Ollie Stewart M.D. , 03/28/20 12:06, [facility] Transcribe Initials: DRE , Transcribe Date: 03/27/20 21:44, Dictation Date: Copy for: GEOVANNY YENI via fax Copy for: STEVE SEN via fax Copy for: EMERGENCY DEPT via modem Copy for: 710 MED REC DISCHARGED Page 1 of 1 Name Value Range Interpretation Code Description Data Toma rce(s) Supporting Document(s) ID Date Data Source [id number] 03/28/2020 12:06:00 [place] [address] PHONE: [phone] FAX: [phone] Name .................. : JUVE Hawthorne Acct Number.................. : [id number] ROOM. ................. : [address] Number ................... : [id number] Stay type ............. : E/R Discharge Date......... ... : 03/27/20 Admit Date ......... : 03/27/20 Admit Phys .................... : STEVE Date of ....... : 1965 Family Phys ................... : HAVEN RIVERA Phone .................. : [phone] Age ................................ : 54 Film# .................. .:[id number] Sex ................................. : M Unsigned transcriptions are preliminary reports and do not represent a medical or legal document SPINE CERV COMP-5 OR MORE VIE [id number] COMPLETE:03/27/20 19:03 KBO 94518 Reason(s): Neck Pain CERVICAL SPINE X-RAY: INDICATION: [...] By Ollie Stewart M.D. , 03/28/20 12:06, [facility] Transcribe Initials: DRE , Transcribe Date: 03/27/20 21:43, Dictation Date: Copy for: GEOVANNY JAIME via fax Copy for: STEVE ROTHMAN via fax Copy for: EMERGENCY DEPT via modem Copy for: 710 MED REC DISCHARGED Page 1 of 1 Name Value Range Interpretation Code Description Data Toma rce(s) Supporting Document(s) ID Date Data Source [id number] 03/28/2020 12:06:00 [place] [address] PHONE: [phone] FAX: [phone] Name .................. : JUVE Hawthorne Acct Number.................. : [id number] ROOM. ................. : VT-17 Number ................... : [id number] Stay type ............. : E/R Discharge Date......... ... : 03/27/20 Admit Date ......... : 03/27/20 Admit Phys .................... : STEVE Date of ....... : 1965 Family Phys ................... : HAVEN RIVERA Phone .................. : [phone] Age ................................ : 54 Film# .................. .:[id number] Sex ................................. : M Unsigned transcriptions are preliminary reports and do not represent a medical or legal document SPINE LS COMPLETE [id number] COMPLETE:03/27/20 19:03 KBO 70927 Reason(s): Lower Back Pain LUMBAR SPINE X-RAY: [...] By Ollie Stewart M.D. , 03/28/20 12:06, [facility] Transcribe Initials: DRE , Transcribe Date: 03/27/20 21:41, Dictation Date: Copy for: GEOVANNY JAIME via fax Copy for: STEVE ROTHMAN via fax Copy for: EMERGENCY DEPT via modem Copy for: 710 MED REC DISCHARGED Page 1 of 1 Name Value Range Interpretation Code Description Data Toma rce(s) Supporting Document(s) ID Date Data Source [id number] 03/27/2020 04:32:00 PM EDT [facility] 1 OrderSheet [facility] Emergency Department [address] [place] [address] Phone #: ext- [phone] 03/27/2020 16:32 Patient: RINKU WHELAN Sex: M [...] 18:59 Yeni Tinajero R.N. P.A.-C; 2 OrderSheet [facility] Emergency Department [address] [place] [address] Phone #: ext- [phone] 03/27/2020 16:32 Patient: [...] rce(s) Supporting Document(s) ID Date Data Source [id number] 03/27/2020 04:32:00 PM EDT [facility] 1 Medication Reconciliation Report [facility] Emergency Department [address] [place] [address] Phone #: ext- [phone] 03/27/2020 16:32 Patient: [...] 03/27/2020 6:59:00 PM 2 Medication Reconciliation Report [facility] Emergency Department [address] [place] [address] Phone #: ext- [phone] 03/27/2020 16:32 Patient: RINKU WHELAN Sex: M : 1965 Age: 54yAtivan [PO] PO 1 mg, administered: 03/27/2020 6:59:00 PMThe following Medications were prescribed to the patient:prednisone 50 mg ta blet Take 1 tablet once a day with meals for 5 days -- Dispense 5 tablet. Refills: 0.Substitution permitted.Pharmacy - [facility] [address] [phone]. FaxNumber: .cyclobenzaprine 10 mg tablet Take 1 tablet three times a day for 3 days -- Dispense 9 tablet. Refills: 0.Substitution permitted.Pharmacy - [facility] - [address] [place] [phone]. .Lidoderm 5 % topical patch Apply 1 patch single dose for 3 days -- Apply patch to area of pain and leaveon no more than 12hrs and remove. You are able to cut to size. Dispense 3 patch. Refills: 0. Substitutionpermitted.Pharmacy - [facility] - [address] [facility] ; [place], [place] [id number]. . -- Yeni Pittman P.A.-C Name Value Range Interpretation Code Description Data Toma e(s) Supporting Document(s) ID Date Data Source [id number] 03/27/2020 04:32:00 PM EDT [place] [address] Medication Administration Record [facility] Emergency Department [address] [place] [address] Phone #: ext [phone] 03/27/2020 16:32 Patient: RINKU WHELAN Sex: M : 1965 Age: 54yWeight: 132.4 kgHeight/Length: 68 inBMI: 44.4ALLERGIES: adhesive talpe, Latex, Codeine Phosphate Date/Time Medication Administered Medication OrderedGiven TORADOL [IM] (KETOROLAC Toradol IM 30 mg18:59 03/27/2020 TROMETHAMINE)Fely Tinajero R.N. Dose: 30 mg IMGiven ATIVAN [PO] (LORAZEPAM) Ativan PO 1 mg18:59 03/27/2020 Dose: 1 mg Tablets Fely Yanez R.N. Name Value Range Interpretation Code Description Data [facility](s) ID Date Data Source [id number] 03/27/2020 04:32:00 PM EDT [facility] 1 General Instructions [facility] Emergency Department [address] [place] [address] Phone #: ext [phone] 03/27/2020 16:32 Patient: RINKU WHELAN Sex: M [...] days -- Dispense 5 tablet. Refills: 0.Substitution permitted.[facility] [place] [address]. FaxNumber: .cyclobenzaprine 10 mg tablet Take 1 tablet three times a day for 3 days -- Dispense 9 tablet. Refills: 0.Substitution permitted.[place] [address]. .Lidoderm 5 % topical patch Apply 1 patch single dose for 3 days -- Apply patch to area of pain and leaveon no more than 12hrs and remove. You are able to cut to size. Dispense 3 patch. Refills: 0. Substitutionpermitted.[place] [address]. .Follow-up:Return to the emergency department as needed. Follow up with your healthcare provider in about twodays if not better. Call for an appointment. Follow up with a pain management clinic as scheduled.Understanding of the discharge instructions verbalized by patient. 2 General Instructions [facility] Emergency Department [address] [place] [address] Phone #: ext- [phone] 03/27/2020 16:32 Patient: [...] of the spinal canal. 3 General Instructions [facility] Emergency Department [address] [place] [address] Phone #: ext- [phone] 03/27/2020 16:32 Patient: [...] delay the healing process. You may use fufs-nmc-xjfrani pain medicine to control pain, unless another [...] any new findings that may affectyour care.Call [phone] if you have: Sudden weakness or numbness in one or both arms Neck swelling, difficulty or painful swallowing Difficulty breathing Chest pain 4 General Instructions [facility] Emergency Department [address] [place] [address] Phone #: [phone] rog- [phone] 03/27/2020 16:32 [id number] Sex: M : 1965 Age: 54yWhen to seek medical adviceCall your healthcare provider right away if any of these occur: Pain becomes worse or spreads into one or both arm Increasing headache Fever of 100.4F (38C) or higher, or as directed by your healthcare provider [phone] [employer]. [address] [place] [address]. All rights reserved. This information is not [...] ulcer or gastrointestinal bleeding. 5 General Instructions [facility] Emergency Department [address] [place] [address] Phone #: ext- [phone] 03/27/2020 16:32 Patient: [...] arm gets worse Trouble breathing or swallowing [phone] [employer]. [address] [place] [address]. All rights reserved. This information is not intended as asubstitute for professional medical care. Always follow your healthcare professional's instructions.Back Pain (Acute or Chronic) 6 General Instructions [facility] Emergency Department [address] [place] [address] Phone #: [phone] ext- [phone] 03/27/2020 16:32 Patient: RINKU WHELAN Sex: M [...] illness. Mechanical problems include: 7 General Instructions [facility] Emergency Department [address] [place] [address] Phone #: ext- [phone] 03/27/2020 16:32 Patient: RINKU WHELAN Sex: M [...] painful area for 20 8 General Instructions [facility] Emergency Department [address] [place] [address] Phone #: ext- [phone] 03/27/2020 16:32 Patient: [...] or are takingother medicines. You may use zesj-nap-eaxlqlc medicine as directed on the bottle to [...] any new findingsthat may affect your care.Call [phone] if any of the following occur: Trouble breathing Confusion Very drowsy or trouble awakening Fainting or loss of consciousness Rapid or very slow heart rate Loss of bowel or bladder control 9 General Instructions [facility] Emergency Department [address] [place] [address] Phone #: ext- [phone] 03/27/2020 16:32 Patient: RINKU WHELAN Sex: García : 1965 Age: 54yWhen to seek medical adviceCall your healthcare provider right away if any of these occur: Pain becomes worse or spreads to your legs Weakness or numbness in one or both legs Numbness in the groin or genital area [phone] [employer]. [address] [place] [address], [place] [address]. All rights reserved. This information is not intended as asubstitute for professional medical care. Always follow your healthcare professional's instructions.Back Spasm (No Trauma)Spasm of the back muscles can occur after a sudden forceful twisting or bending force (such as in acar accident), after a simple awkward movement, or after lifting something heavy with poor body 10 General Instructions [facility] Emergency Department [address] [place] [address] Phone #: ext- [phone] 03/27/2020 16:32 [facility]: [id number] Sex: M : 1965 Age: 54ypositioning. In [...] exercises for each leg. 11 General Instructions [facility] Emergency Department [address] [place] [address] Phone #: ext- [phone] 03/27/2020 16:32 Patient: [...] any new findingsthat may affect your care.Call [phone] if any of these occur: Trouble breathing Confusion Drowsiness or trouble awakening Fainting or loss of consciousness Rapid or very slow heart rate Loss of bowel or bladder controlWhen to seek medical adviceCall your healthcare provider right away if any of these occur: Pain becomes worse or spreads to your legs 12 General Instructions [facility] Emergency Department [address] [place] [address] Phone #: ads- [phone] 03/27/2020 16:32 -- Patient: RINKU WHELAN Sex: M : 1965 Age: 54y Weakness or numbness in one or both legs Numbness in the groin or genital area Fever of 100.4F (38C) or higher, or as directed by your healthcare provider Burning or pain when passing urine [phone] [employer]. [address] [place] [address], [place] [address]. All rights reserved. This information is not intended as asubstitute for professional medical care. Always follow your healthcare professional's instructions.Back Care TipsCaring for your backThese are things you can do to prevent a recurrence of acute back pain and to reduce symptomsfrom chronic back pain: 13 General Instructions [facility] Emergency Department [address] [place] [address] Phone #: ext- [phone] 03/27/2020 16:32 Patient: RINKU WHELAN [facility]#: [id number] Sex: M : 1965 Age: 54y Maintain [...] worse, don't do it. 14 General Instructions [facility] Emergency Department [address] [place] [address], [place] [address] Phone #: ext- [phone] 03/27/2020 16:32 Patient: RINKU WHELAN Sex: M [...] mattress to add support. 15 General Instructions [facility] Emergency Department [address] [place] [address] Phone #: ext- [phone] 03/27/2020 16:32 Patient: [...] or legs Numbness in the groin area [phone] [employer] [address] [place] [address]. All rights reserved. This information is not [...] suits yourcondition.Low back stretch 16 General Instructions [facility] Emergency Department [address] [place] [address] Phone #: ext- [phone] 03/27/2020 16:32 Patient: RINKU WHELAN [facility]#: [id number] Sex: M : 1965 Age: 54yThe point [...] hands. Repeat 10 times. 17 General Instructions [facility] Emergency Department [address] [place] [address] Phone #: ext- [phone] 03/27/2020 16:32 Patient: [...] Hold for 2 seconds, then slowly lower. [phone] [employer] [address] [place] [address], [place] [address]. All rights reserved. This information is not [...] Pittman P.A.-C 03/27/2020 20:45) 18 General Instructions [facility] Emergency Department [address] [place] [address] Phone #: ext- [phone] 03/27/2020 16:32 Patient: DINAH WHELANDANIEL Hawthorne Sex: M : 1965 Age: 54y Name Value Range Interpretation Code Description Data Toma rce(s) Supporting Document(s) ID Date Data Source [id number] 03/27/2020 04:32:00 PM EDT [facility] 1 Clinical Report - Nurses [facility] Emergency Department [address] [place] [address] Phone #: ext- [phone] 03/27/2020 16:32 Patient: DINAH WHELANDANIEL Hawthorne Sex: M : 1965 Age: 54yTRIAGEArrived by EMS. Historian: patient. Unaccompanied. ( pain from neck to lower back with spasmsstarted at 6am states he has has back issues in past, [facility] because they do not give him things to help his pain, also ems stated that ptwalked down 8 flights of [address] and walked to ambulance).Acuity: LEVEL 3.Chief Complaint: BACK PAIN.Alert. No acute distress.This started today. He has had trouble walking. 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 Sepsis Screen negative. No suspected or confirmed signs ofinfection present. --16:53 03/27/20 Deborah Fenrández R.N.16:40 03/27/20. BP: 152/86. MAP: 108. HR: [...] Fernández R.N. 2 Clinical Report - Nurses [facility] Emergency Department [address] [place] [address] Phone #: ext- [phone] 03/27/2020 16:32 Patient: [...] Fernández R.N. 3 Clinical Report - Nurses [facility] Emergency Department [address] [place] [address] Phone #: ext- [phone] 03/27/2020 16:32 Patient: [...] Patient verbalized understanding. Written instructions provided in Palauan. The patient was discharged home. He left ambulatory. --19:41 03/27/20 Fely Tinajero R.N. 19:40 03/27/20. BP: 140/74. HR: 80. RR: 18. O2 saturation: 97%. Temp: 98.0 F. Pain level now 0/10. --19:41 03/27/20 Fely Tinajero R.N.Locked/Released at 03/27/2020 19:46 by Fely Tinajero R.N. Name Value Range Interpretation Code Description Data Toma rce(s) Supporting Document(s) ID Date Data Source [id number] 03/27/2020 04:32:00 PM EDT [facility] 1 Clinical Report - Physicians/Mid Levels [facility] Emergency Department [address] [place] [address] Phone #: ext- [phone] 03/27/2020 16:32 Patient: RINKU WHELAN Sex: M [...] No gait disturbacne. Pt verbalizes dislike for [facility] as he typically goes there and sts [...] pain. 2 Clinical Report - Physicians/Mid Levels [facility] Emergency Department [address] [place] [address] Phone #: ext- [phone] 03/27/2020 16:32 Patient: [...] 2+. 3 Clinical Report - Physicians/Mid Levels [facility] Emergency Department [address] [place] [address] Phone #: ext- [phone] 03/27/2020 16:32 Patient: RINKU WHELAN Sex: M [...] much similar to today. Voices dislike for [facility]. Reviewed and noted no imaigng at our facility. will attempt to review via Jed. If not, will obtina iamgign to eval and tx currently. Pending results. 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 This report was requested by: Yeni Pittman Reference #: [id number] Others' Prescriptions Patient Name: Rinku WhelanBirth Date: 1965 Address: [address] [place] [id number]: Male Rx Written Rx Dispensed Drug Quantity Days Supply Prescriber Name Payment Method Dispenser 01/12/2020 01/14/2020 tramadol hcl 50 mg tablet 120 30 Lolis Choudhary NP Medicaid [facility] 12/21/2019 12/29/2019 oxycodone hcl 5 mg tablet 20 3 Yanet [facility]llano [facility] 11/22/2019 11/22/2019 tramadol hcl 50 mg tablet 120 30 [facility]red Greco [facility] 09/23/2019 11/15/2019 tramadol hcl 50 mg tablet 28 7 Winifred Greco Medicaid [facility] 4 Clinical Report - Physicians/Mid Levels [facility] Emergency Department [address] [place] [address] Phone #: ext- [phone] 03/27/2020 16:32 Patient: RINKU WHELAN Sex: M : 1965 Age: 54y 09/23/2019 10/28/2019 tramadol hcl 50 mg tablet 28 7 Winifred Greco Medicaid [facility] 10/17/2019 10/19/2019 oxycodone-acetaminophen 5-325 mg tab 10 3 Jose De Jesus Scales Medicaid [facility] 09/23/2019 09/23/2019 tramadol hcl 50 mg tablet 28 7 Winifred Greco Medicaid [facility] 07/12/2019 07/12/2019 tramadol hcl 50 mg tablet 30 10 Winifred Greco Medicaid [facility] 06/13/2019 06/13/2019 tramadol hcl 50 mg tablet 21 7 Winifred Greco Medicaid [facility] 03/30/2019 03/30/2019 hydrocodone- acetaminophen 5-325 mg tablet 20 3 Itzel Irizarry [facility] Medicaid [facility] Reviewed resutls. Was able to review a T and L spine in Nov 2019 from [facility] that demoed degenerative chagnes w/o fracture or [...] exceed.). 5 Clinical Report - Physicians/Mid Levels [facility] Emergency Department [address] [place] [address] Phone #: ext- [phone] 03/27/2020 16:32 Patient: [...] tablet. Refills: 0. Substitution permitted. Pharmacy - [facility] - [address] [place] [address] [phone]. . cyclobenzaprine 10 mg tablet Take 1 tablet three times a day for 3 days -- Dispense 9 tablet. Refills: 0. Substitution permitted. Pharmacy - [facility] - [address] [place] [address] [phone]. FaxNumber: . Lidoderm 5 % topical patch Apply 1 patch single dose for 3 days -- Apply patch to area of pain and leave on no more than 12hrs and remove. You are able to cut to size. Dispense 3 patch. Refills: 0. Substitution permitted. Pharmacy - [facility] - [address] [place] [address] [phone]. . Follow-up: Return to the emergency department as needed. Follow up with your healthcare provider in about two days if not better. Call for an appointment. Follow up with a pain management clinic as scheduled. Understanding of the discharge instructions verbalized by patient.(Electronically signed by Yeni Pittman P.A.-C 03/27/2020 20:45) Name Value Range Interpretation Code Description Data [facility] rce(s) Supporting Document(s) ID Date Data Source [id number] 03/27/2020 06:26:00 PM EDT [facility] Name Value Range Interpretation Code Description Data [facility](s) Supporting Document(s) DRUG SCREEN URINE [facility] URINE DRUG SCREEN Amphetamine [Presence] in Urine by Screen method NEGATIVE NORMAL: N EGATIVE [facility] BARBITURATES NEGATIVE NORMAL: NEGATIVE [facility] BENZO NEGATIVE NORMAL: NEGATIVE [facility] COCAINE NEGATIVE NORMAL: NEGATIVE [facility] Tetrahydrocannabinol [Presence] in Urine NEGATIVE NORMAL: NEGATIVE [facility] OPIATES NEGATIVE NORMAL: NEGATIVE [facility] Phencyclidine [Presence] in Urine by Screen method NEGATIVE NOR MAL: NEGATIVE [facility] \\BLDo\\URINE DRUG SCR EEN INTERPRETATION\\BLDx\\ THE CUTOFFF LEVELS FOR DETECTION ARE FOLLOWS: AMPHETAMINES 1000 ng/ml BARBITUARATES 200 ng/ml BENZODIAZEPINES 100 ng/ml THC 50 ng/ml PHENCYCLIDINE 25 ng/ml OPIATES 300 ng/ml COCAINE 300 ng/ml ALL POSITIVES ARE CONSIDERED PRESUMPTIVE POSITIVE CONFIRMATION WILL BE PERFORMED AT PHYSICIAN REQUEST. ID Date Data Source [id number] 03/27/2020 06:01:00 PM EDT [facility] Name Value Range Interpretation Code Description Data Toma rce(s) Supporting Document(s) URINALYSIS [facility] yellow NORMAL: Yellow [facility] CLARITY clear NORMAL: Clear [facility] Specific gravity of Urine by Test strip 1.015 1.001 - 1.030 [facility] pH 6 5 - 9 [facility] al Glucose [Mass/volume] in Urine by Test strip NORM NORMAL: Negat [facility] Bilirubin.total [Presence] in Urine by Test strip NEG NORMAL: Negative [facility] Ketones [Presence] in Urine by Test strip NEG NORMAL: Negative [facility] Protein [Mass/volume] in Urine by Test strip NEG NORMAL: Negat [facility] Nitrite [Presence] in Urine by Test strip NEG NORMAL: Negative [facility] BLOOD NEG NORMAL: Negative [facility] Leukocyte esterase [Presence] in Urine by Test strip NEG HENRY L: Negative [facility] Urobilinogen [Mass/volume] in Urine by Test strip NOR less angela n 1.0 mg/dL [facility] MICROSCOPIC Not Indicate [facility] ID Date Data Source [id number] 03/09/2020 12:00:00 AM EDT [facility] Jose De Jesus Scales MD Patient Name: RE WHELAN [facility] Date of : 1965[address] Date of Exam: 03/09/2020CHALO Samuel [id number]#: Fax: [phone] EXAM: MRI KNEE LEFT WITHOUT [...] ther findings as described above.Accredited by the [employer] in MR.GRECIA Mao/Louann you for referring RINKU WHELAN to our office. Electronically Signed - PAUL CHIU DO 03/12/20 10:49 Name Value Range Interpretation Code Description Data Toma rce(s) Supporting Document(s) ID Date Data Source [id number] 01/27/2020 01:27:00 PM EDT [facility] Name Value Range Interpretation Code Description Data Toma rce(s) Supporting Document(s) C reactive protein [Mass/volume] in Serum or Plasma by High sensitivity method 0.42 mg/dL 0.00-0.30 [facility] ([facility]) Erythrocyte sedimentation rate by Westergren method 3 mm/hr 0-20 [facility] ([facility]) ID Date Data Source [id number] 01/27/2020 01:27:00 PM EDT [facility] ([facility]) Name Value Range Interpretation Code Description Data Toma rce(s) Supporting Document(s) Red Blood Count 5.26 10 4.30-6.10 [facility] ([facility]) White Blood Count 10.1 10 4.0-10.0 [facility] ([facility]) Hemoglobin 15.4 g/dL 13.5-17.5 [facility] ([facility]) Hematocrit 48.9 % 42.0-52.0 [facility] ([facility]) Mean Corpuscular Volume 93.0 fl 80.0-96.0 M EDENT ([facility]) Mean Corpuscular Hemoglobin 29.3 pg 27.0-33.0 [facility] ([facility]) Red Cell Distribution Width 15.4 % 11.5-14.5 [facility] ([facility]) Mean Corpuscular HGB Conc 31.5 g/dL 32.0-36.5 [facility] ([facility]) Platelet Count, Automated 249 10 150-450 [facility] ([facility]) Neutrophils % 62.9 % 36.0-66.0 [facility] Lymph % 23.7 % 24.0-44.0 [facility] ([facility] Baso % 0.6 % 0.0-1.0 [facility] ([facility]) [place] % 9.8 % 0.0-5.0 [facility] ([facility]) Eos % 0.7 % 0.0-3.0 [facility] ([facility]) Immature Granulocyte % 2.3 % 0-3.0 [facility] ([facility]) Nucleated Red Blood Cell % 0.0 % 0-0 [facility] ([facility]) Lymph # 2.4 10 1.5-5.0 [facility] ([facility] Neutrophils # 6.3 10 1.5-8.5 [facility] ([facility] [place] # 1.0 10 0.0-0.8 [facility] Eos # 0.1 10 0.0-0.5 [facility] Baso # 0.1 10 0.0-0.2 [facility] ID Date Data Source MAGNESIUM LEVEL 12/16/2019 12:00:00 AM EDT eCW1 ([facility]) Name Value Range Interpretation Code Description Data Toma rce(s) Supporting Document(s) 2.4 1.8-2.4 MAGNESIUM LEVEL eCW1 ([facility]) ID Date Data Source PT & APTT 12/16/2019 12:00:00 AM EDT eCW1 ([facility]) Name Value Range Interpretation Code Description Data Toma rce(s) Supporting Document(s) 13.3 11.8-14.0 PROTHROMBIN TIME eCW1 ([facility]) 1.04 INR eCW1 ([facility]) 30.0 25.0-38.4 PARTIAL THROMBOPLASTIN TI ME eCW1 ([facility]) ID Date Data Source [id number] 12/16/2019 12:00:00 AM EDT eCW1 ([facility]) Name Value Range Interpretation Code Description Data Toma rce(s) Supporting Document(s) Hemoglobin A1c/Hemoglobin.total in Blood 6.1 HEMOGLOBIN A1c eCW1 ([facility]) ID Date Data Source FREE T4 & TSH PANEL 12/16/2019 12:00:00 AM EDT eCW1 ([facility]) Name Value Range Interpretation Code Description Data Toma rce(s) Supporting Document(s) 0.020 0.358-3.740 THYROID STIMULATING HORM ONE eCW1 ([facility]) 1.17 0.76-1.46 FREE T4 eCW1 ([facility]) ID Date Data Source Comprehensive Metabolic Profile (CMP) 12/16/2019 12:00:00 AM EDT eCW1 ([facility]) Name Value Range Interpretation Code Description Data Toma rce(s) Supporting Document(s) 83 70-100 GLUCOSE, FASTING eCW1 ([facility]) 12 7-18 BLOOD UREA NITROGEN eCW1 ([facility]) 1.26 0.70-1.30 CREATININE FOR GFR eCW1 ([facility]) > 60.0 >56 GLOMERULAR FILTRATION RATE eCW 1 ([facility]) 4.6 3.5-5.1 POTASSIUM SERUM eCW1 ([facility]) 142 136-145 SODIUM LEVEL eCW1 ([facility]) 107 98-107 CHLORIDE LEVEL eCW1 ([facility]) 9.4 8.5-10.1 CALCIUM LEVEL eCW1 ([facility]) 30 21-32 CARBON DIOXIDE LEVEL eCW1 ([facility]) 20 7-37 AST/SGOT eCW1 ([facility]) 29 12-78 ALT/SGPT eCW1 ([facility]) 122 45-117 ALKALINE PHOSPHATASE eCW1 ([facility]) 0.4 0.2-1.0 BILIRUBIN,TOTAL eCW1 ([facility]) 7.2 6.4-8.2 TOTAL PROTEIN eCW1 ([facility]) 3.7 3.2-5.2 ALBUMIN eCW1 ([facility]) 1.06 1.00-1.93 ALBUMIN/GLOBULIN RATIO eCW1 ([facility]) ID Date Data Source CBC with Differential 12/16/2019 12:00:00 AM EDT eCW1 ([facility]) Name Value Range Interpretation Code Description Data Toma rce(s) Supporting Document(s) 7.0 4.0-10.0 WHITE BLOOD COUNT eCW1 ([facility]) 5.35 4.30-6.10 RED BLOOD COUNT eCW1 ([facility]) 16.2 13.5-17.5 HEMOGLOBIN eCW1 ([facility]) 93.3 80.0-96.0 MEAN CORPUSCULAR VOLUME e CW1 ([facility]) 30.3 27.0-33.0 MEAN CORPUSCULAR HEMOGLOB IN eCW1 ([facility]) 49.9 42.0-52.0 HEMATOCRIT eCW1 ([facility]) 257 150-450 PLATELET COUNT, AUTOMATED eCW1 ([facility]) 32.5 32.0-36.5 MEAN CORPUSCULAR HGB CONC eCW1 ([facility]) 14.4 11.5-14.5 RED CELL DISTRIBUTION WID TH eCW1 ([facility]) 22.6 24.0-44.0 LYMPH % eCW1 ([facility]) 58.1 36.0-66.0 NEUTROPHILS % eCW1 ([facility]) 17.2 0.0-5.0 MONO % eCW1 ([facility]) 4.1 1.5-8.5 NEUTROPHILS # eCW1 ([facility]) 1.6 0.0-3.0 EOS % eCW1 ([facility]) 0.4 0.0-1.0 BASO % eCW1 ([facility]) 1.6 1.5-5.0 LYMPH # eCW1 ([facility]) 1.2 0.0-0.8 MONO # eCW1 ([facility]) 0.1 0.0-0.5 EOS # eCW1 ([facility]) 0.0 0.0-0.2 BASO # eCW1 ([facility]) ID Date Data Source [id number] 12/12/2019 12:00:00 AM EDT [facility] Catrachita LANDRY Patient Name: SHERIN WHELAN1 [facility] Date of : 1965[place] [address] Date of Exam: 12/12/2019PH#: Fax: [phone] EXAM: [...] is intact. There is no fascialthickening or tasah a.IMPRESSION:1. First metatarsophalangeal joint mild primary osteoarthritis, [...] completed Patient is a former smoker [facility] ([facility], [facility]) Smoking 11/05/2020 12:00:00 AM EST Patient is a former smoker completed Patient is a former smoker [facility] ([facility] ) Smoking 10/09/2020 12:00:00 AM EST Former Smoker completed Former Smoker eCW1 ([facility]) Smoking 10/09/2020 12:00:00 AM EST Former Smoker completed Former Smoker eCW1 ([facility]) Smoking 10/09/2020 12:00:00 AM EST Former Smoker completed Former Smoker eCW1 ([facility]) Smoking 09/24/2020 12:00:00 AM EST Former Smoker completed Former Smoker eCW1 ([facility]) Smoking 09/24/2020 12:00:00 AM EST Former Smoker completed Former Smoker eCW1 ([facility]) Smoking 09/24/2020 12:00:00 AM EST Former Smoker completed Former Smoker eCW1 ([facility]) Smoking 09/24/2020 12:00:00 AM EST Former Smoker completed Former Smoker eCW1 ([facility]) Smoking 09/24/2020 12:00:00 AM EST Former Smoker completed Former Smoker eCW1 ([facility]) Smoking 08/15/2020 12:00:00 AM EST Former Smoker completed Former Smoker eCW1 ([facility]) Smoking 08/15/2020 12:00:00 AM EST Former Smoker completed Former Smoker eCW1 ([facility]) Smoking 08/15/2020 12:00:00 AM EST Former Smoker completed Former Smoker eCW1 ([facility]) Smoking 08/15/2020 12:00:00 AM EST Former Smoker completed Former Smoker eCW1 ([facility]) Smoking 08/15/2020 12:00:00 AM EST Former Smoker completed Former Smoker eCW1 ([facility]) Smoking 08/15/2020 12:00:00 AM EST Former Smoker completed Former Smoker eCW1 ([facility]) Smoking 08/15/2020 12:00:00 AM EST Former Smoker completed Former Smoker eCW1 ([facility]) Smoking 08/15/2020 12:00:00 AM EST Former Smoker completed Former Smoker eCW1 ([facility]) Smoking 08/15/2020 12:00:00 AM EST Former Smoker completed Former Smoker eCW1 ([facility]) Smoking 08/09/2020 12:00:00 AM EST Former Smoker completed Former Smoker eCW1 ([facility]) Smoking 08/09/2020 12:00:00 AM EST Former Smoker completed Former Smoker eCW1 ([facility]) Smoking 08/09/2020 12:00:00 AM EST Former Smoker completed Former Smoker eCW1 ([facility]) Smoking 08/09/2020 12:00:00 AM EST Former Smoker completed Former Smoker eCW1 ([facility]) Smoking 08/09/2020 12:00:00 AM EST Former Smoker completed Former Smoker eCW1 ([facility]) Smoking 08/08/2020 12:00:00 AM EST Former Smoker completed Former Smoker eCW1 ([facility]) Smoking 08/07/2020 12:00:00 AM EST Former Smoker completed Former Smoker eCW1 ([facility]) Smoking 07/26/2020 12:00:00 AM EDT Former Smoker completed Former Smoker eCW1 ([facility]) Smoking 07/17/2020 12:00:00 AM EDT Former Smoker completed Former Smoker eCW1 ([facility]) Smoking 05/16/2020 12:00:00 AM EDT Patient is a former smoker completed Patient is a former smoker [facility] ([facility] ) Smoking 04/24/2020 12:00:00 AM EDT Former Smoker completed Former Smoker eCW1 ([facility]) Smoking 04/24/2020 12:00:00 AM EDT Former Smoker completed Former Smoker eCW1 ([facility]) Smoking 04/24/2020 12:00:00 AM EDT Former Smoker completed Former Smoker eCW1 ([facility]) Smoking 04/17/2020 12:00:00 AM EDT Former Smoker completed Former Smoker eCW1 ([facility]) Smoking 04/17/2020 12:00:00 AM EDT Former Smoker completed Former Smoker eCW1 ([facility]) Smoking 03/12/2020 12:00:00 AM EDT Former Smoker completed Former Smoker eCW1 ([facility]) Smoking 03/12/2020 12:00:00 AM EDT Former Smoker completed Former Smoker eCW1 ([facility]) Smoking 03/12/2020 12:00:00 AM EDT Former Smoker completed Former Smoker eCW1 ([facility]) Smoking 03/12/2020 12:00:00 AM EDT Former Smoker completed Former Smoker eCW1 ([facility]) Smoking 03/05/2020 12:00:00 AM EDT Former Smoker completed Former Smoker eCW1 ([facility]) Smoking 03/05/2020 12:00:00 AM EDT Former Smoker completed Former Smoker eCW1 ([facility]) Vital Signs ID Date Data Source UNK Name Value Range Interpretation Code Description Data Source(s) Body mass index (BMI) [Ratio] 45.6 kg/m2 45.6 k g/m2 [facility] ([facility], [facility]) Body height 68 [in_i] 68 [in_i] [facility] ([facility]) 5'8" Body weight 300.00 [lb_av] 300.00 [lb_av] MEDEN T ([facility], [facility]) Body temperature 95.1 [degF] 95.1 [degF] [facility] ([facility]) Oxygen saturation in Arterial blood by Pulse oximetry 96 % 96 % [facility] ([facility], [facility]) Respiratory rate 13 /min 13 /min [facility] ( [facility], [facility]) Heart rate 58 /min 58 /min [facility] ([facility], [facility]) Diastolic blood pressure 61 mm[Hg] 61 mm[Hg] [facility] ([facility], [facility]) Systolic blood pressure 113 mm[Hg] 113 mm[Hg] EDENT ([facility], [facility]) Body temperature 96.7 [degF] 96.7 [degF] [facility] ([facility] ) Body temperature 97.3 [degF] 97.3 [degF] [facility] ([facility] ) Body mass index (BMI) [Ratio] 46.5 kg/m2 46.5 k g/m2 [facility] ([facility] ) Body weight 306.00 [lb_av] 306.00 [lb_av] MEDEN T ([facility] ) Body height 68 [in_i] 68 [in_i] [facility] ([facility] ) 5'8" Body temperature 97.3 [degF] 97.3 [degF] [facility] ([facility]) Body temperature 96.8 [degF] 96.8 [degF] [facility] ([facility]) Diastolic blood pressure 80 mm[Hg] 80 mm[Hg] eCW1 ([facility]) Systolic blood pressure 130 mm[Hg] 130 mm[Hg] e CW1 ([facility]) Body temperature 97 [degF] 97 [degF] eCW1 ([facility]) Respiratory rate 20 /min 20 /min eCW1 ([facility]) Heart rate 90 /min 90 /min eCW1 ([facility]) Body mass index (BMI) [Ratio] 46.52 kg/m2 46.52 kg/m2 eCW1 ([facility]) Body height 68 [in_i] 68 [in_i] eCW1 ([facility]) Body weight 306 [lb_av] 306 [lb_av] eCW1 ([facility]) Diastolic blood pressure 76 mm[Hg] 76 mm[Hg] eCW1 ([facility]) Systolic blood pressure 121 mm[Hg] 121 mm[Hg] e CW1 ([facility]) Body temperature 96.9 [degF] 96.9 [degF] eCW1 ( [facility]) Respiratory rate 18 /min 18 /min eCW1 ([facility]) Heart rate 85 /min 85 /min eCW1 ([facility]) Body mass index (BMI) [Ratio] 46.37 kg/m2 46.37 kg/m2 eCW1 ([facility]) Body height 68 [in_i] 68 [in_i] eCW1 ([facility]) Body weight 305.0 [lb_av] 305.0 [lb_av] eCW1 ([facility]) Diastolic blood pressure 68 mm[Hg] 68 mm[Hg] eCW1 ([facility]) Systolic blood pressure 118 mm[Hg] 118 mm[Hg] e CW1 ([facility]) Body temperature 97.9 [degF] 97.9 [degF] eCW1 ( [facility]) Respiratory rate 18 /min 18 /min eCW1 ([facility]) Heart rate 69 /min 69 /min eCW1 ([facility]) Body mass index (BMI) [Ratio] 45.61 kg/m2 45.61 kg/m2 eCW1 ([facility]) Body height 68 [in_i] 68 [in_i] eCW1 ([facility]) Body weight 300 [lb_av] 300 [lb_av] eCW1 ([facility]) Diastolic blood pressure 68 mm[Hg] 68 mm[Hg] eCW1 ([facility]) Systolic blood pressure 115 mm[Hg] 115 mm[Hg] e CW1 ([facility]) Body temperature 98.4 [degF] 98.4 [degF] eCW1 ( [facility]) Respiratory rate 18 /min 18 /min eCW1 ([facility]) Heart rate 68 /min 68 /min eCW1 ([facility]) Body mass index (BMI) [Ratio] 45.79 kg/m2 45.79 kg/m2 eCW1 ([facility]) Body height 68 [in_i] 68 [in_i] eCW1 ([facility]) Body weight 301.2 [lb_av] 301.2 [lb_av] eCW1 ([facility]) Diastolic blood pressure 80 mm[Hg] 80 mm[Hg] eCW1 ([facility]) Systolic blood pressure 112 mm[Hg] 112 mm[Hg] e CW1 ([facility]) Body temperature 97.9 [degF] 97.9 [degF] eCW1 ( [facility]) Respiratory rate 18 /min 18 /min eCW1 ([facility]) Heart rate 110 /min 110 /min eCW1 ([facility]) Body mass index (BMI) [Ratio] 44.85 kg/m2 44.85 kg/m2 eCW1 ([facility]) Body height 68 [in_i] 68 [in_i] eCW1 ([facility]) Body weight 295 [lb_av] 295 [lb_av] eCW1 ([facility]) Diastolic blood pressure 56 mm[Hg] 56 mm[Hg] eCW1 ([facility]) Systolic blood pressure 113 mm[Hg] 113 mm[Hg] e CW1 ([facility]) Body temperature 97.2 [degF] 97.2 [degF] eCW1 ( [facility]) Respiratory rate 20 /min 20 /min eCW1 ([facility]) Heart rate 78 /min 78 /min eCW1 ([facility]) Body mass index (BMI) [Ratio] 45.21 kg/m2 45.21 kg/m2 eCW1 ([facility]) Body height 68 [in_i] 68 [in_i] eCW1 ([facility]) Body weight 297.4 [lb_av] 297.4 [lb_av] eCW1 ([facility]) Diastolic blood pressure 70 mm[Hg] 70 mm[Hg] eCW1 ([facility]) Systolic blood pressure 104 mm[Hg] 104 mm[Hg] e CW1 ([facility]) Body temperature 98.5 [degF] 98.5 [degF] eCW1 ( [facility]) Respiratory rate 20 /min 20 /min eCW1 ([facility]) Heart rate 99 /min 99 /min eCW1 ([facility]) Body mass index (BMI) [Ratio] 45.21 kg/m2 45.21 kg/m2 eCW1 ([facility]) Body height 68 [in_i] 68 [in_i] eCW1 ([facility]) Body weight 297.4 [lb_av] 297.4 [lb_av] eCW1 ([facility]) Body mass index (BMI) [Ratio] 44.4 kg/m2 44.4 k g/m2 MED[facility] ([facility], [facility]) Body height 68 [in_i] 68 [in_i] MEDENT ([facility]) 5'8" Body weight 292.00 [lb_av] 292.00 [lb_av] MEDEN T ([facility]) Body temperature 97.6 [degF] 97.6 [degF] [facility] ([facility]) Oxygen saturation in Arterial blood by Pulse oximetry 7 % 7 % [facility] ([facility]) Respiratory rate 14 /min 14 /min [facility] ( [facility]) Heart rate 67 /min 67 /min [facility] ([facility]) Diastolic blood pressure 77 mm[Hg] 77 mm[Hg] [facility] Systolic blood pressure 111 mm[Hg] 111 mm[Hg] EDENT ([facility]) Body mass index (BMI) [Ratio] 44.7 kg/m2 44.7 k g/m2 [facility] ([facility] Heart rate 81 /min 81 /min [facility] ([facility] Diastolic blood pressure 94 mm[Hg] 94 mm[Hg] [facility] Systolic blood pressure 120 mm[Hg] 120 mm[Hg] [facility] Body weight 294.00 [lb_av] 294.00 [lb_av] MEDEN T ([facility] Body height 68 [in_i] 68 [in_i] MEDENT ([facility] 5'8" Body weight 135.626 kg 135.626 kg MEDENT ([facility], ) Body mass index (BMI) [Ratio] 45.5 kg/m2 45.5 k g/m2 MED[facility] ([facility], ) Body weight 299.00 [lb_av] 299.00 [lb_av] MEDEN T ([facility], ) Body height 68 [in_i] 68 [in_i] [facility] 5'8" Body temperature 97.9 [degF] 97.9 [degF] [facility] ([facility]) Oxygen saturation in Arterial blood by Pulse oximetry 96 % 96 % [facility] ([facility]) Room Air Heart rate 78 /min 78 /min [facility] ([facility]) Diastolic blood pressure 80 mm[Hg] 80 mm[Hg] [facility] ([facility]) Systolic blood pressure 118 mm[Hg] 118 mm[Hg] [facility] ([facility]) Body mass index (BMI) [Ratio] 44.7 kg/m2 44.7 k g/m2 [facility] Body weight 294.00 [lb_av] 294.00 [lb_av] MEDEN T ([facility]) Body height 68 [in_i] 68 [in_i] MED[facility] ([facility]) 5'8" Body temperature 97.2 [degF] 97.2 [degF] [facility] Body mass index (BMI) [Ratio] 44.7 kg/m2 44.7 k g/m2 [facility] ([facility], [facility]) Body height 68 [in_i] 68 [in_i] MED[facility] ([facility], [facility]) 5'8" Body weight 294.00 [lb_av] 294.00 [lb_av] MEDEN T ([facility], [facility]) Body temperature 97.3 [degF] 97.3 [degF] MED[facility] ([facility], [facility]) Oxygen saturation in Arterial blood by Pulse oximetry 94 % 94 % [facility] ([facility]) Respiratory rate 18 /min 18 /min [facility] ( [facility]) Heart rate 74 /min 74 /min [facility] ([facility]) Diastolic blood pressure 66 mm[Hg] 66 mm[Hg] [facility] Urgent Care, [facility]) Systolic blood pressure 101 mm[Hg] 101 mm[Hg] [facility], [facility]) Diastolic blood pressure 72 mm[Hg] 72 mm[Hg] eCW1 ([facility]) Systolic blood pressure 118 mm[Hg] 118 mm[Hg] e CW1 ([facility]) Body temperature 98.2 [degF] 98.2 [degF] eCW1 ( [facility]) Respiratory rate 20 /min 20 /min eCW1 ([facility]) Heart rate 74 /min 74 /min eCW1 ([facility]) Body mass index (BMI) [Ratio] 44.79 kg/m2 44.79 kg/m2 eCW1 ([facility]) Body height 68 [in_i] 68 [in_i] eCW1 ([facility]) Body weight 294.6 [lb_av] 294.6 [lb_av] eCW1 ([facility]) Diastolic blood pressure 65 mm[Hg] 65 mm[Hg] eCW1 ([facility]) Systolic blood pressure 116 mm[Hg] 116 mm[Hg] e CW1 ([facility]) Body temperature 97.5 [degF] 97.5 [degF] eCW1 ( [facility]) Respiratory rate 20 /min 20 /min eCW1 ([facility]) Heart rate 79 /min 79 /min eCW1 ([facility]) Body mass index (BMI) [Ratio] 44.39 kg/m2 44.39 kg/m2 eCW1 ([facility]) Body height 68 [in_i] 68 [in_i] eCW1 ([facility]) Body weight 292 [lb_av] 292 [lb_av] eCW1 ([facility]) Body weight 133.358 kg 133.358 kg MEDENT ([facility], ) Body mass index (BMI) [Ratio] 44.7 kg/m2 44.7 k g/m2 MEDENT ([facility], ) Body weight 294.00 [lb_av] 294.00 [lb_av] MEDEN T ([facility], ) Body height 68 [in_i] 68 [in_i] MEDENT ([facility]) 5'8" Diastolic blood pressure 79 mm[Hg] 79 mm[Hg] eCW1 ([facility]) Systolic blood pressure 123 mm[Hg] 123 mm[Hg] e CW1 ([facility]) Body temperature 98.2 [degF] 98.2 [degF] eCW1 ( [facility]) Respiratory rate 20 /min 20 /min eCW1 ([facility]) Heart rate 71 /min 71 /min eCW1 ([facility]) Body mass index (BMI) [Ratio] 44.97 kg/m2 44.97 kg/m2 eCW1 ([facility]) Body height 68 [in_i] 68 [in_i] eCW1 ([facility]) Body weight 295.8 [lb_av] 295.8 [lb_av] eCW1 ([facility]) Diastolic blood pressure 78 mm[Hg] 78 mm[Hg] eCW1 ([facility]) Systolic blood pressure 120 mm[Hg] 120 mm[Hg] e CW1 ([facility]) Body temperature 97.6 [degF] 97.6 [degF] eCW1 ( [facility]) Respiratory rate 18 /min 18 /min eCW1 ([facility]) Heart rate 87 /min 87 /min eCW1 ([facility]) Body mass index (BMI) [Ratio] 44.97 kg/m2 44.97 kg/m2 eCW1 ([facility]) Body height 68 [in_i] 68 [in_i] eCW1 ([facility]) Body weight 295.8 [lb_av] 295.8 [lb_av] eCW1 ([facility]) Body mass index (BMI) [Ratio] 44.2 kg/m2 44.2 k g/m2 MEDENT ([facility] ) Body weight 291.00 [lb_av] 291.00 [lb_av] MEDEN T ([facility]) Body height 68 [in_i] 68 [in_i] MEDENT ([facility]) 5'8" Body temperature 98.6 [degF] 98.6 [degF] MEDENT ([facility]) Diastolic blood pressure 70 mm[Hg] 70 mm[Hg] eCW1 ([facility]) Systolic blood pressure 122 mm[Hg] 122 mm[Hg] e CW1 ([facility]) Body temperature 98.5 [degF] 98.5 [degF] eCW1 ( [facility]) Respiratory rate 20 /min 20 /min eCW1 ([facility]) Heart rate 94 /min 94 /min eCW1 ([facility]) Body mass index (BMI) [Ratio] 44.39 kg/m2 44.39 kg/m2 eCW1 ([facility]) Body height 68 [in_us] 68 [in_us] eCW1 ([facility]) Body weight Measured 292.0 [lb_av] 292.0 [lb_av ] eCW1 ([facility]) Diastolic blood pressure 78 mm[Hg] 78 mm[Hg] eCW1 ([facility]) Systolic blood pressure 118 mm[Hg] 118 mm[Hg] e CW1 ([facility]) Body temperature 97.4 [degF] 97.4 [degF] eCW1 ( [facility]) Respiratory rate 18 /min 18 /min eCW1 ([facility]) Heart rate 94 /min 94 /min eCW1 ([facility]) Body mass index (BMI) [Ratio] 44.73 kg/m2 44.73 kg/m2 eCW1 ([facility]) Body height 68 [in_us] 68 [in_us] eCW1 ([facility]) Body weight Measured 294.2 [lb_av] 294.2 [lb_av ] eCW1 ([facility]) Diastolic blood pressure 80 mm[Hg] 80 mm[Hg] eCW1 ([facility]) Systolic blood pressure 120 mm[Hg] 120 mm[Hg] e CW1 ([facility]) Body temperature 97.6 [degF] 97.6 [degF] eCW1 ( [facility]) Respiratory rate 20 /min 20 /min eCW1 ([facility]) Heart rate 90 /min 90 /min eCW1 ([facility]) Body mass index (BMI) [Ratio] 44.21 kg/m2 44.21 kg/m2 eCW1 ([facility]) Body height 68 [in_us] 68 [in_us] eCW1 ([facility]) Body weight Measured 290.8 [lb_av] 290.8 [lb_av ] eCW1 ([facility]) Diastolic blood pressure 68 mm[Hg] 68 mm[Hg] eCW1 ([facility]) Systolic blood pressure 110 mm[Hg] 110 mm[Hg] e CW1 ([facility]) Body temperature 97.2 [degF] 97.2 [degF] eCW1 ( [facility]) Respiratory rate 19 /min 19 /min eCW1 ([facility]) Heart rate 72 /min 72 /min eCW1 ([facility]) Body mass index (BMI) [Ratio] 45.82 kg/m2 45.82 kg/m2 eCW1 ([facility]) Body height 68 [in_us] 68 [in_us] eCW1 ([facility]) Body weight Measured 301.4 [lb_av] 301.4 [lb_av ] eCW1 ([facility]) Body temperature 99.0 [degF] 99.0 [degF] MEDENT ([facility]) Diastolic blood pressure 78 mm[Hg] 78 mm[Hg] eCW1 ([facility]) Systolic blood pressure 114 mm[Hg] 114 mm[Hg] e CW1 ([facility]) Body temperature 97.2 [degF] 97.2 [degF] eCW1 ( [facility]) Respiratory rate 18 /min 18 /min eCW1 ([facility]) Heart rate 90 /min 90 /min eCW1 ([facility]) Body mass index (BMI) [Ratio] 45.88 kg/m2 45.88 kg/m2 eCW1 ([facility]) Body height 68 [in_us] 68 [in_us] eCW1 ([facility]) Body weight Measured 301.8 [lb_av] 301.8 [lb_av ] eCW1 ([facility]) Diastolic blood pressure 71 mm[Hg] 71 mm[Hg] eCW1 ([facility]) Systolic blood pressure 137 mm[Hg] 137 mm[Hg] e CW1 ([facility]) Body temperature 97.4 [degF] 97.4 [degF] eCW1 ( [facility]) Respiratory rate 18 /min 18 /min eCW1 ([facility]) Heart rate 80 /min 80 /min eCW1 ([facility]) Body mass index (BMI) [Ratio] 46.55 kg/m2 46.55 kg/m2 eCW1 ([facility]) Body height 68 [in_i] 68 [in_i] eCW1 ([facility]) Body weight 306.2 [lb_av] 306.2 [lb_av] eCW1 ([facility]) Patient Treatment Plan of Care Planned Activity Planned Date Details Description Data Source (s) Fluocinolone Acetonide 0.1 MG/ML Otic Solution [Jeremy ic] 08/07/2020 12:00:00 AM EST eCW1 ([facility]) montelukast 10 MG Oral Tablet [Singulair] 02/03/2020 12:00:00 AM ED T eCW1 ([facility]) Sodium Chloride 0.111 MEQ/ML Nasal [place] [[place] brand of sodium chloride] 01/27/2020 12:00:00 AM EDT eCW1 ([facility]) Dexamethasone 2 MG Oral Tablet 01/27/2020 12:00:00 AM EDT eCW1 ([facility]) Levothyroxine Sodium 0.025 MG Oral Tablet 01/11/2020 12:00:00 AM ED T eCW1 ([facility]) Levothyroxine Sodium 0.025 MG Oral Tablet 01/11/2020 12:00:00 AM ED T eCW1 ([facility]) Levothyroxine Sodium 0.025 MG Oral Tablet 01/11/2020 12:00:00 AM ED T eCW1 ([facility]) Fluticasone Propionate 50 MCG/ACT 01/02/2020 12:00:00 AM EDT eCW1 ([facility]) Fluticasone Propionate 50 MCG/ACT 01/02/2020 12:00:00 AM EDT eCW1 ([facility]) Levothyroxine Sodium 0.05 MG Oral Tablet 12/16/2019 12:00:00 AM EDT eCW1 ([facility]) Levothyroxine Sodium 0.05 MG Oral Tablet 12/16/2019 12:00:00 AM EDT eCW1 ([facility]) Ibuprofen 600 MG Oral Tablet 10/03/2019 12:00:00 AM EST eCW1 ([facility]) Ibuprofen 600 MG Oral Tablet 10/03/2019 12:00:00 AM EST eCW1 ([facility]) Ibuprofen 600 MG Oral Tablet 10/03/2019 12:00:00 AM EST eCW1 ([facility]) [place] Saline Nasal Gel 1 10/03/2019 12:00:00 AM EST eCW1 ([facility]) tramadol hydrochloride 50 MG Oral Tablet 09/23/2019 12:00:00 AM EST eCW1 ([facility]) tramadol hydrochloride 50 MG Oral Tablet 09/23/2019 12:00:00 AM EST eCW1 ([facility]) tramadol hydrochloride 50 MG Oral Tablet 09/23/2019 12:00:00 AM EST eCW1 ([facility]) tramadol hydrochloride 50 MG Oral Tablet 09/23/2019 12:00:00 AM EST eCW1 ([facility]) tramadol hydrochloride 50 MG Oral Tablet 09/23/2019 12:00:00 AM EST eCW1 ([facility]) tramadol hydrochloride 50 MG Oral Tablet 09/23/2019 12:00:00 AM EST eCW1 ([facility]) tramadol hydrochloride 50 MG Oral Tablet 09/23/2019 12:00:00 AM EST eCW1 ([facility]) tramadol hydrochloride 50 MG Oral Tablet 09/23/2019 12:00:00 AM EST eCW1 ([facility]) tramadol hydrochloride 50 MG Oral Tablet 09/23/2019 12:00:00 AM EST eCW1 ([facility])
== END 2020-11-19 16:39 | disposition home or self-care (01) ==
LOC: M ED 14:40
DX: H10.32 Unspecified acute conjunctivitis, left eye (principal); I51.9 Heart disease, unspecified; E11.9 Type 2 diabetes mellitus without complications; I10 Essential (primary) hypertension; Z79.899 Other long term (current) drug therapy; Z91.89 Other specified personal risk factors, not elsewhere classified; Z88.5 Allergy status to narcotic agent; Z91.040 Latex allergy status

== ENCOUNTER → 2020-11-20 | Outpatient (REF) | payer OTHER ==
[2020-11-20 18:16] LABS: BLOOD UREA NITROGEN 10 MG/DL (7-18); CALCIUM LEVEL 9.1 MG/DL (8.5-10.1); CARBON DIOXIDE LEVEL 29 MEQ/L (21-32); CHLORIDE LEVEL 109 MEQ/L (98-107); CREATININE FOR GFR 1.29 MG/DL (0.70-1.30); FREE T4 0.71 NG/DL (0.76-1.46); GLOMERULAR FILTRATION RATE > 60.0 (>56); GLUCOSE, FASTING 81 MG/DL (70-100); POTASSIUM SERUM 4.4 MEQ/L (3.5-5.1); SODIUM LEVEL 143 MEQ/L (136-145)
== END ==
LOC: M SFHCPLAZ 14:46
PROVIDERS: ATTEND Nurse Practitioner Family
DX: E03.9 Hypothyroidism, unspecified (principal); I12.9 Hypertensive chronic kidney disease with stage 1 through stage 4 chronic kidney disease, or unspecified chronic kidney disease; N18.30 Chronic kidney disease, stage 3 unspecified; Z13.21 Encounter for screening for nutritional disorder

== ENCOUNTER 2020-12-05 18:53 | Emergency (ER) | payer MEDICAID, OTHER ==
[~2020-12-05] VITALS: Ht 172.7 cm; Wt 140.3 kg
[2020-12-05] MEDS ORDERED: LIDOCAINE 5% (LIDODERM) PATCH TD ONE (19:30)
[2020-12-05] MEDS ORDERED: LIDO5DIS41 TOP (20:26)
[2020-12-05 20:40] VITALS: BP 124/71
[2020-12-05] MEDS ORDERED: **NOTE PATIENT COMMENT** MISC XX SCH (21:00)
== END 2020-12-05 20:54 | disposition home or self-care (01) ==
LOC: M ED 18:53
DX: M62.830 Muscle spasm of back (principal); I50.9 Heart failure, unspecified; F41.9 Anxiety disorder, unspecified; E78.5 Hyperlipidemia, unspecified; K21.9 Gastro-esophageal reflux disease without esophagitis; Z79.899 Other long term (current) drug therapy; Z79.890 Hormone replacement therapy; Z88.5 Allergy status to narcotic agent; Z91.040 Latex allergy status; Z91.048 Other nonmedicinal substance allergy status

== ENCOUNTER → 2020-12-10 | Outpatient (CLI) | payer OTHER ==
[~2020-12-10] MED LIST changes: +LIDO5DIS41 TOP
--- NOTE | 2020-12-14 23:59 | ECWPNPC ---
PATIENT NAME: DEANNA AN : 1965 GENDER: MALE VISIT DATE: 12/10/2020 DISCHARGE DATE: 12/10/20 1239 VISIT LOCKED DATE TIME: PHYSICIAN: MINA HAYWOOD PHYSICIAN PAGER NO: ACTIVE RESOURCE: MINA HAYWOOD REASON FOR APPOINTMENT 1. F/U HISTORY OF PRESENT ILLNESS GENERAL: HERE FOR FOLLOW-UP OF CHRONIC LOW BACK PAIN. REPORTS SIGNIFICANT INCREASE IN LEFT-SIDED LOW BACK PAIN OVER THE PAST FEW MONTHS. DENIES PRECIPITATING EVENT. HAS RESPONDED WELL TO SACROILIAC JOINT BLOCKS DONE IN THE PAST. FINDS MEDICATION SOMEWHAT HELPFUL AT REDUCING PAIN.-. FALL RISK SCREENING: SCREENING : NO FALLS REPORTED IN THE LAST YEAR. PAIN SCREENING: PATIENT HAS A COMPLAINT OF ACUTE OR CHRONIC PAIN :YES LOCATION OF PAIN:LOW BACK INTENSITY OF PAIN (SCALE OF 1 TO 10):8 WHAT DOES YOUR PAIN FEEL LIKE:SHARP, THROBBING DURATION:CONTINOUS, CONSTANT, ALL DAY PAIN IS INCREASED BY:ACTIVITIES PAIN IS DECREASED BY:USE OF PAIN MEDICATIONS NURSING NOTE: -. PAIN CENTER INTAKE QUESTIONS: DO YOU HAVE A HISTORY OF MRSA? :NO DO YOU TAKE A BLOOD THINNERS? :NO DO YOU HAVE ANY BLEEDING DISORDERS? :NO ANY NEW NUMBNESS OR WEAKNESS IN YOUR LEGS OR ARMS? :NO ANY PACEMAKER,DEFIBRILLATOR, OR DORSAL COLUMN STIMULATOR? :NO DO YOU HAVE ANY RASHES OR OPEN SORES? :NO ARE YOU ALLERGIC TO IV DYE? :NO ARE YOU DIABETIC? :NO ANY NEW PROBLEMS WITH YOUR MEDICATIONS? :NO HAVE YOU RECEIVED A VACCINE IN THE PAST 30 DAYS? :NO DO YOU PLAN TO RECEIVE A VACCINE IN THE NEXT 21 DAYS? :NO DO YOU NEED ANY PRESCRIPTION? :YES TRAMADOL AND TIZANDINE DO YOU TAKE ANY IMMUNOSUPPRESSIVE MEDICATIONS? :NO IS THERE A CHANCE YOU COULD BE ? :NO ARE YOU BREAST FEEDING? :NO CURRENT MEDICATIONS TAKING ESCITALOPRAM OXALATE 10 MG TABLET 1 TABLET ORAL ONCE A DAY ALONG WITH A 20 MG TABLET TAKING BUSPIRONE HCL 10 MG TABLET TAKE ONE TABLET BY MOUTH @8AM AND TAKE ONE TABLET @8PM ORAL TAKING OMEPRAZOLE 40 MG CAPSULE DELAYED RELEASE TAKE ONE CAPSULE BY MOUTH @8AM ON AN EMPTY STOMACH ORAL TAKING TRIHEXYPHENIDYL HCL 2 MG TABLET TAKE ONE TABLET BY MOUTH TWICE DAILY ORALLY BID TAKING FAMOTIDINE 20 MG TABLET TAKE ONE TABLET BY MOUTH @8AM AND TAKE ONE TABLET BY MOUTH @8PM ORAL TAKING METOPROLOL TARTRATE 25 MG TABLET 1/2 TAB ORAL DAILY TAKING GABAPENTIN 600 MG TABLET TAKE ONE TABLET BY MOUTH @8AM AND TAKE ONE TABLET @12PM AND TAKE ONE TABLET @8PM ORAL Q8H TID TAKING TOPIRAMATE 50 MG TABLET 1 TABLET ORALLY ONCE A DAY TAKING TRAMADOL HCL 50 MG TABLET 1 TABLET NEEDED ORALLY Q6H PRN MDD4 TAKING TIZANIDINE HCL 4 MG TABLET 1 TABLET NEEDED ORALLY THREE TIMES A DAY NEEDED FOR SEVERE PAIN TAKING LEVOTHYROXINE SODIUM 25 MCG TABLET 1 TABLET IN THE MORNING ON AN EMPTY STOMACH ORALLY ONCE A DAY TAKING FISH OIL + D3 [id number] MG-UNIT CAPSULE 1 CAPSULE ORALLY BID OTC TAKING MULTIVITAMIN ADULT - TABLET DIRECTED ORALLY TAKING ONDANSETRON HCL 4 MG TABLET TAKE ONE TABLET BY MOUTH ONE TO TWO TIMES A DAY BEFORE MEALS, TAKE ONLY WHEN HAVING NAUSEA ORAL TAKING ASPIRIN 81 MG TABLET CHEWABLE 1 TABLET ORALLY ONCE A DAY TAKING OCEAN NASAL SPRAY 0.65 % SOLUTION 2 SPRAYS IN EACH NOSTRIL NEEDED NASALLY 4X DAILY TAKING AYR SALINE NASAL - GEL USE DIRECTED DAILY NEEDED NASALLY FOUR TIMES DAILY TAKING CETIRIZINE HCL 10 MG TABLET 1 TABLET ORALLY ONCE DAILY TAKING FLUTICASONE PROPIONATE 50 MCG/ACT SUSPENSION 1 SPRAY IN EACH NOSTRIL NASALLY BID TAKING MONTELUKAST SODIUM 10 MG TABLET 1 TABLET ORALLY ONCE A DAY TAKING VENTOLIN HFA 108 (90 BASE) MCG/ACT AEROSOL SOLUTION INHALE TWO PUFFS BY MOUTH EVERY FOUR HOURS NEEDED INHALATION - TAKING ATORVASTATIN CALCIUM 40 MG TABLET TAKE 1 TABLET BY MOUTH ONCE A DAY TAKING VITAMIN D 1000 UNIT TABLET 2 TABLETS WITH MEAL ORALLY ONCE A DAY MEDICATION LIST REVIEWED AND RECONCILED WITH THE PATIENT PAST MEDICAL HISTORY DEPRESSION/ANXIETY- DR LAWLER. /THERAPIST Q2 WEEKS HYPERLIPIDEMIA GERD WITH BARRETTS: REPEAT EGD IN 07/2018 VITAMIN D DEF FRAN: FOLLOWING WITH PULMONOLOGY: COMPLIANT WITH CPAP-PULMONOLOGY CAD: BYPASS WITH AUTOLOGOUS VEIN: DR. VALENCIA AT [facility] ECHO 10/17/2016. HYPERTENSIVE HEART DISEASE CARDIAC PET NUCLEAR STRESS 09/26/2016. LVEF 66% BACK PAIN HISTORY OF CHICKENPOX, MEASLES, MUMPS LYTIC LESION ADJACENT TO RT LOBE LIVER APPEARING WITHIN GB FOSSA: NO SURGICAL INTERVENTION IDICATED: DR. DOMINIQUE THYROID U/S 09/16 DIFFUSE HETEROGENEITY 2 6MM NODULES AT [facility]. - DR HERMILA RAUSCH CARDIAC CATH WITH CABG 11/13/2016 SPECT STRESS LVEF 55%, NO EVIDENCE OF ISCHEMI, LEFT VENTRICULAR DIALATION WITH STRESS 08/26/2017 EUS (ENDOSCOPIC U/S-DR. LE)-NO PANCREATIC MASS OR COMMON BILE DUCT STRICTURE HIDA SCAN-UNREMARKABLE 2017, NORMAL GB AND EF, HYPERTONIC SPHINCTER OF ODDI FATTY LIVER WITH FATTY PANCREAS COLONOSCOPY 2016 UPPER ENDOSCOPY 2018 GALLBLADDER U/S 04/23/18: FATTY INFILTRATE OF LIVER AND EXOPHYTIC CYST ON THE RIGHT LOBE. NO HEPATIC SOLID MASS OR BILLARY DILATATION. GALLBLADDER WITHOUT ACUTE FINDINGS ECHO: 12/20/17-NO SIGNIFICANT VALVULAR DISEASE, LEFT VENTRICULAR SYSTOLIC FUNCTION NORMAL, LEFT VENTRICULAR DIASTOLIC FUNCTION NORMAL, CONCENTRIC LEFT CENTRICULAR HYPERTROPHY MILD, HYPERTNESIVE HEART DISEASE MODERATE. MILDLY DILATED LEFT ATRIUM 4.3CM. MILDLY DILATED AORTIC ROOT AT 4.0CM. TRACE TO SMALL PERICARDAL EFFUSION NOTED POSTERIORLY IN LIMITED VIEWS, NO EVIDENCE OF CARDIAC TAMPONADE. LVEF 55-60% DERMATITIS HERPETIFORMIS CARPAL TUNNEL HAMMER TOES FRATURE THUMB ALLERGIES CODEINE PHOSPHATE (FOR ALLERGIES USE ONLY): NAUSEA/VOMITING - SIDE EFFECTS LATEX (FOR ALLERGY USE ONLY): RASH - ALLERGY ADHESIVE TAPE: RASH - ALLERGY GLUTEN ALLERGY: RASH - ALLERGY SOCIAL HISTORY GENERAL: TOBACCO USE ARE YOU A:FORMER SMOKER HOW LONG HAS IT BEEN SINCE YOU LAST SMOKED?5-10 YEARS LATEX QUESTIONNAIRE LATEX ALLERGY : HAVE YOU EVER DEVELOPED ANY TYPE OF REACTION AFTER HANDLING LATEX PRODUCTS SUCH RUBBER GLOVES, CONDOMS, DIAPHRAGMS, BALLOONS, SOCKS, OR UNDERWEAR?YES - PLEASE INDICATE :RUBBER GLOVES, CONDOMS, BALLOONS RASH LATEX ALLERGY : HAVE YOU EVER DEVELOPED ANY TYPE OF REACTION DURING OR AFTER DENTAL APPOINTMENT, VAGINAL/RECTAL EXAMINATION, SURGICAL PROCEDURE, OR ANY OTHER EXPOSURE?NO LATEX RISK : HAVE YOU EVER HAD ANY DIFFICULTY BREATHING OR HIVES AFTER EATING OR HANDLING ANY FRUITS, OR VEGETABLES; SUCH KIWI, BANANAS, STONE FRUITS, OR CHESTNUTSNO LATEX RISK : DO YOU HAVE A PREVIOUS PERSONAL HISTORY OF MORE THAN NINE SURGERIES, SPINA BIFIDA, OR REPEATED CATHERIZATIONS? NO LATEX RISK : ARE YOU FREQUENTLY EXPOSED TO LATEX PRODUCTS IN YOUR OCCUPATION?NO DATE ASKED : 12/10/2020 ALCOHOL USE: NO. LUNG CANCER SCREENING SMOKING STATUS:FORMER SMOKER IS THE PATIENT BETWEEN THE AGE OF 57 AND 79?NO BMI CARE GOAL FOLLOW-UP ABOVE NORMAL BMI FOLLOW-UPDIETARY MANAGEMENT EDUCATION, GUIDANCE, AND COUNSELING ALCOHOL SCREENING DID YOU HAVE A DRINK CONTAINING ALCOHOL IN THE PAST YEAR?NO POINTS0 INTERPRETATIONNEGATIVE RECREATIONAL DRUG USE DRUG USE?NO CAFFEINE CAFFEINE USE?YES COFEE: 1 CUPS PER DAY SEXUAL HX HAD SEX IN THE LAST 12 MONTHS (VAGINAL, ORAL, OR ANAL)?: NO, HAVE YOU EVER HAD AN STD?: NO. HIV / HEP-C SCREENING HIV TEST OFFERED TO PATIENT:NO HEP-C TEST OFFERED TO PATIENT:NO HOLINESS [id number] GNOSTICIST NO WORSHIP BELIEFS THAT WOULD IMPACT HEALTH CARE. LANGUAGE LANGUAGES SPOKEN:[employer]AL[place]OREAN EDUCATION 3RD GRADE. STATES IS ABLE TO READ NEWSPAPER. WRITES BUT SPELLING IS NOT GOOD.. LEARNING BARRIERS / SPECIAL NEEDS CHANGE FROM LAST VISIT?NO BARRIERS TO LEARNING?YES COMMENTS LEARNING DISABILITY HEARING IMPAIRED?NO VISION IMPAIRED?YES :CORRECTIVE LENSES READER COGNITIVELY IMPAIRED?NO READINESS TO LEARN?YES LEARNING PREFERENCES?NO LEARNING CAPABILITIES PRESENT?YES EMOTIONAL BARRIERS?NO SPECIAL DEVICES?NO CRACKER SPRAYER NEEDED?NO OCCUPATION: DISABLED, SSI. DIET: REGULAR. EXERCISE: NO REGULAR EXERCISE. MARITAL STATUS: SINGLE. - HAS THE PATIENT BEEN EDUCATED REGARDING HIS/HER PLAN OF CARE?YES HAS THE PATIENT BEEN EDUCATED REGARDING PAIN, THE RISK FOR PAIN, THE IMPORTANCE OF EFFECTIVE PAIN MANAGEMENT, AND THE PAIN ASSESSMENT PROCESS?YES HOUSING: RENTS APARTMENT. ADVANCE DIRECTIVE ADVANCE DIRECTIVE DISCUSSED WITH PATIENT:YES PT DOES NOT HAVE ANY ADVANCED DIREDTIVES AND HE DECLINES INFORMATION ON HCP AT THIS TIME. REVIEW OF SYSTEMS CONSTITUTIONAL: ANY RECENT FEVER NO . CHILLS NO . WEIGHT CHANGE OF UNKNOWN REASONS NO . GASTROENTEROLOGY: NEW UNEXPLAINABLE CHANGES IN BOWEL CONTROL NO . CONSTIPATION NO . GENITOURINARY: ANY NEW CHANGE IN BLADDER CONTROL? NO . NEUROLOGY: NEW ONSET DIZZINESS OR NEUROLOGICAL CHANGES NOT MENTIONED NO . NEW NUMBNESS OR PAIN PATTERNS NOT MENTIONED AND PERTINENT TO TODAY'S VISIT NO . CARDIOLOGY: NEW CHEST PRESSURE NO . PATIENT DENIES NO . RESPIRATORY: UNEXPLAINABLE COUGH NO . NEW SHORTNESS OF BREATH NO . VITAL SIGNS WT 304 LBS, HT 68 IN, BMI 46.22 INDEX, BP 121/76 MM HG, HR 85 /MIN, RR 18 /MIN, TEMP 97.6 F, OXYGEN SAT % 95%, SAFE IN ENV? (Y/N) YEST.VALENTIN LEAHY. EXAMINATION GENERAL EXAMINATION: GENERAL ALERT,NO DISTRESS . PSYCH AFFECT NORMAL . LUNGS: LUNG SOUNDS ARE CLEAR . HEART: HEART RATE REGULAR . MUSCULOSKELETAL: MST 5/5 BILAT. LOWER EXTREMITIES . LUMBAR: TENDERNESS OVER LEFT SIJ . DIAGNOSTIC TESTS REVIEWEDMRI L/S SPINE 2018. ASSESSMENTS SACROILIITIS - M46.1 (PRIMARY) TREATMENT SACROILIITIS REFILL TRAMADOL HCL TABLET, 50 MG, 1 TABLET NEEDED, ORALLY, Q6H PRN MDD4, 30 DAYS, 120, REFILLS 1 REFILL TIZANIDINE HCL TABLET, 4 MG, 1 TABLET NEEDED, ORALLY, THREE TIMES A DAY NEEDED FOR SEVERE PAIN, 30 DAYS, 45, REFILLS 1 NOTES: LEFT SACROILIAC JOINT BLOCK /PT DOESNT WANT PRE SEDATE PRINTED AND REVIEWED PRE PROCEDURE WITH PATIENT LisaDAYAN LEAHY , ISTOP REGISTRY REVIEWED AND DEMONSTRATES COMPLLIANCE. BRINGS IN MEDICATIONS WHICH IS APPROPRIATE FOR WHAT WAS DISPENSED. RECENT URINE TOXICOLOGY REVIEWED. NO UNAUTHORIZED MEDICATIONS. NO ILLICIT SUBSTANCES AND PRESCRIBED MEDICATIONS WERE PRESENT. , RISKS OF NARCOTIC/OPIOD MEDICATIONS INCLUDES BUT IS NOT LIMITED TO RISK OF DEPENDANCE/DEVELOPMENT OF ADDICTION, MOOD DISTURBANCE AND DEPRESSION, OSTEOPOROSIS, HORMONAL AND LABIDAL CHANGES, RESPIRATORY DEPRESSION AND . PATIENT IS ADVISED NOT TO DRIVE OR DRINK ALCOHOL WHILE ON THESE MEDICATIONS. PROCEDURE CODES FA211 ESTABILISHED PATIENT [facility] FACILITY CHARGE DISPOSITION & COMMUNICATION FOLLOW UP POST (REASON: LEFT SACROILIAC JOINT BLOCK /PT DOESNT WANT PRE SEDATE) ELECTRONICALLY SIGNED BY PABLO KAM ON 12/14/2020 AT 02:56 PM EST DISCLAIMER : THIS IS A VISIT SUMMARY EXTRACTED FROM THE [employer] CHART. IT IS NOT A COPY OF THE [employer] PROGRESS NOTE. GERALD
== END ==
LOC: M PAIN 11:30
PROVIDERS: ATTEND Nurse Practitioner Family
DX: M46.1 Sacroiliitis, not elsewhere classified (principal); G89.29 Other chronic pain; K21.9 Gastro-esophageal reflux disease without esophagitis; E55.9 Vitamin D deficiency, unspecified; G47.33 Obstructive sleep apnea (adult) (pediatric); Z86.59 Personal history of other mental and behavioral disorders; Z87.891 Personal history of nicotine dependence; Z88.5 Allergy status to narcotic agent; Z91.018 Allergy to other foods; Z91.040 Latex allergy status; Z91.09 Other allergy status, other than to drugs and biological substances; E66.01 Morbid (severe) obesity due to excess calories; Z68.42 Body mass index [BMI] 45.0-49.9, adult; Z79.82 Long term (current) use of aspirin; Z79.899 Other long term (current) drug therapy

== ENCOUNTER → 2021-01-17 | Outpatient (CLI) | payer OTHER | LOC: M LABSMTC 10:32 | PROVIDERS: ATTEND Anesthesiology | DX: Z20.822 Contact with and (suspected) exposure to COVID-19 (principal) ==

== ENCOUNTER 2021-01-21 15:51 | Emergency (ER) | payer OTHER ==
[~2021-01-21] VITALS: Ht 172.7 cm; Wt 142.1 kg
[2021-01-21 15:51] VITALS: BP 141/90
== END 2021-01-21 19:06 | disposition left against medical advice (07) ==
LOC: M ED 15:51
DX: Z53.21 Procedure and treatment not carried out due to patient leaving prior to being seen by health care provider (principal)

== ENCOUNTER → 2021-01-22 | Outpatient (CLI) | payer OTHER ==
[~2021-01-22] MED LIST changes: +ANEC4CRE3 TOP; +BUPIVACAINE HCL 0.25% 30ML VIAL As Ordered ONE; +ISOVUE-M 300 61% 15ML VIAL As Ordered ONE; +LIDOCAINE 1% SDV 30ML VIAL As Ordered ONE; +TRIAMCINOLONE ACETONIDE SUSP 40 MG/ML VIAL (J3301) As Ordered ONE
--- NOTE | 2021-01-22 11:56 | REP ---
INDICATION: LEFT SACROILIAC JOINT BLOCK. COMPARISON: None. TECHNIQUE: Single-view. 8.7 seconds of fluoroscopy time is reported. FINDINGS: A single last image hold fluoroscopically obtained spot radiograph of the left SI joint document needle position associated with injection procedure. IMPRESSION: Procedural imaging. <Electronically signed by Marquez Barragan > 01/22/21 [id number]
--- NOTE | 2021-01-29 05:07 | ECWPNPC ---
PATIENT NAME: DEANNA AN : 1965 GENDER: MALE VISIT DATE: 01/22/2021 DISCHARGE DATE: 01/22/21 1135 VISIT LOCKED DATE TIME: PHYSICIAN: CATRACHITA WILLIAMSON MD PHYSICIAN PAGER NO: ACTIVE RESOURCE: CATRACHITA WILLIAMSON MD REASON FOR APPOINTMENT 1. LEFT SACROILIAC JOINT BLOCK HISTORY OF PRESENT ILLNESS GENERAL: -. FALL RISK SCREENING: SCREENING : NO FALLS REPORTED IN THE LAST YEAR. PAIN SCREENING: PATIENT HAS A COMPLAINT OF ACUTE OR CHRONIC PAIN :YES LOCATION OF PAIN:LEFT HIP, LEG(S) DOWN ENTIRE LEFT LEG INTENSITY OF PAIN (SCALE OF 1 TO 10):7 AVERAGE 7-/10 WHAT DOES YOUR PAIN FEEL LIKE:CONTINOUS, SHARP, TENDER, THROBBING, SORE "NUMBNESS" DURATION:CONTINOUS, CONSTANT PAIN IS INCREASED BY:ACTIVITIES, PROLONGED STANDING, OTHERS PROLONGED SITTING AND WALKING PAIN IS DECREASED BY:USE OF PAIN MEDICATIONS, OTHERS HEAT PAIN HAS INTERFERED WITH THE FOLLOWING: EVERYTHING NURSING NOTE: -. PAIN CENTER INTAKE QUESTIONS: DO YOU HAVE A HISTORY OF MRSA? :NO DO YOU TAKE A BLOOD THINNERS? :NO DO YOU HAVE ANY BLEEDING DISORDERS? :NO ANY NEW NUMBNESS OR WEAKNESS IN YOUR LEGS OR ARMS? :NO ANY PACEMAKER,DEFIBRILLATOR, OR DORSAL COLUMN STIMULATOR? :NO DO YOU HAVE ANY RASHES OR OPEN SORES? :YES RASH RIGHT HAND AND FOOT-FOR QUITE A WHILE, STATES IT ITCHES. NO OPEN AREAS NOTED. DR WILLIAMSON AWARE AND INTO SEE PT. OKAY TO PROCEED WITH THE PROCEDURE ARE YOU ALLERGIC TO IV DYE? :NO ARE YOU DIABETIC? :NO ANY NEW PROBLEMS WITH YOUR MEDICATIONS? :NO HAVE YOU RECEIVED A VACCINE IN THE PAST 30 DAYS? :NO DO YOU PLAN TO RECEIVE A VACCINE IN THE NEXT 21 DAYS? :YES IF SO WHAT VACCINE AND WHEN? 2ND COVID 01/07/21-DR. WILLIAMSON AWARE DO YOU TAKE ANY IMMUNOSUPPRESSIVE MEDICATIONS? :NO ANY HISTORY OF SEIZURES? :NO ANY HISTORY OF CARDIAC ISSUES OR EVENTS? :YES NO RECENT PROBLEMS DO YOU HAVE ANY KIDNEY OR LIVER DISEASE? :YES FATTY LIVER DO YOU HAVE SLEEP APNEA? :NO ANY RECENT HEAD INJURY? :NO DO YOU HAVE ANY NEW INFECTIONS? :NO IS THERE A CHANCE YOU COULD BE ? :NO ARE YOU BREAST FEEDING? :NO WHEN DID YOU LAST EAT? : 01/21 1700 WHEN DID YOU LAST DRINK? : 01/22 08 WHAT DID YOU LAST DRINK? : BLACK COFFEE AND WATER NAME OF PERSON DRIVING YOU HOME? : CAB DO YOU HAVE ANY OTHER QUESTIONS OR CONCERNS? : - CURRENT MEDICATIONS TAKING ESCITALOPRAM OXALATE 10 MG TABLET 1 TABLET ORAL ONCE A DAY ALONG WITH A 20 MG TABLET TAKING BUSPIRONE HCL 10 MG TABLET TAKE ONE TABLET BY MOUTH @8AM AND TAKE ONE TABLET @8PM ORAL TAKING OMEPRAZOLE 40 MG CAPSULE DELAYED RELEASE TAKE ONE CAPSULE BY MOUTH @8AM ON AN EMPTY STOMACH ORAL TAKING TRIHEXYPHENIDYL HCL 2 MG TABLET TAKE ONE TABLET BY MOUTH TWICE DAILY ORALLY BID TAKING FAMOTIDINE 20 MG TABLET TAKE ONE TABLET BY MOUTH @8AM AND TAKE ONE TABLET BY MOUTH @8PM ORAL TAKING METOPROLOL TARTRATE 25 MG TABLET 1/2 TAB ORAL DAILY, NOTES: 01/23 800 TAKING GABAPENTIN 600 MG TABLET TAKE ONE TABLET BY MOUTH @8AM AND TAKE ONE TABLET @12PM AND TAKE ONE TABLET @8PM ORAL Q8H TID, NOTES: 01/23 800 TAKING TOPIRAMATE 50 MG TABLET WITH A 25 MG TAB FOR TOTAL OF 75 MGS ORALLY @ 1700 TAKING FISH OIL + D3 [id number] MG-UNIT CAPSULE 1 CAPSULE ORALLY BID OTC TAKING MULTIVITAMIN ADULT - TABLET DIRECTED ORALLY TAKING ONDANSETRON HCL 4 MG TABLET TAKE ONE TABLET BY MOUTH ONE TO TWO TIMES A DAY BEFORE MEALS, TAKE ONLY WHEN HAVING NAUSEA ORAL TAKING ASPIRIN 81 MG TABLET CHEWABLE 1 TABLET ORALLY ONCE A DAY TAKING OCEAN NASAL SPRAY 0.65 % SOLUTION 2 SPRAYS IN EACH NOSTRIL NEEDED NASALLY 4X DAILY TAKING AYR SALINE NASAL - GEL USE DIRECTED DAILY NEEDED NASALLY FOUR TIMES DAILY TAKING VENTOLIN HFA 108 (90 BASE) MCG/ACT AEROSOL SOLUTION INHALE TWO PUFFS BY MOUTH EVERY FOUR HOURS NEEDED INHALATION -, NOTES: 2 DAYS AGO TAKING ATORVASTATIN CALCIUM 40 MG TABLET TAKE 1 TABLET BY MOUTH ONCE A DAY TAKING VITAMIN D 1000 UNIT TABLET 2 TABLETS WITH MEAL ORALLY ONCE A DAY TAKING TRAMADOL HCL 50 MG TABLET 1 TABLET NEEDED ORALLY Q6H PRN MDD4 TAKING MONTELUKAST SODIUM 10 MG TABLET 1 TABLET ORALLY ONCE A DAY TAKING FLUTICASONE PROPIONATE 50 MCG/ACT SUSPENSION 1 SPRAY IN EACH NOSTRIL NASALLY BID TAKING CETIRIZINE HCL 10 MG TABLET 1 TABLET ORALLY ONCE DAILY TAKING LEVOTHYROXINE SODIUM 25 MCG TABLET 1 TABLET IN THE MORNING ON AN EMPTY STOMACH ORALLY ONCE A DAY TAKING TIZANIDINE HCL 4 MG TABLET 1 TABLET NEEDED ORALLY THREE TIMES A DAY NEEDED FOR SEVERE PAIN, NOTES: 01/21 0800 MEDICATION LIST REVIEWED AND RECONCILED WITH THE PATIENT PAST MEDICAL HISTORY DEPRESSION/ANXIETY- DR LAWLER. /THERAPIST Q2 WEEKS HYPERLIPIDEMIA GERD WITH BARRETTS: REPEAT EGD IN 07/2018 VITAMIN D DEF FRAN: FOLLOWING WITH PULMONOLOGY: COMPLIANT WITH CPAP-PULMONOLOGY CAD: BYPASS WITH AUTOLOGOUS VEIN: DR. VALENCIA AT [facility] ECHO 10/17/2016. HYPERTENSIVE HEART DISEASE CARDIAC PET NUCLEAR STRESS 09/26/2016. LVEF 66% BACK PAIN HISTORY OF CHICKENPOX, MEASLES, MUMPS LYTIC LESION ADJACENT TO RT LOBE LIVER APPEARING WITHIN GB FOSSA: NO SURGICAL INTERVENTION IDICATED: DR. DOMINIQUE THYROID U/S 09/16 DIFFUSE HETEROGENEITY 2 6MM NODULES AT [facility]. - DR HERMILA RAUSCH CARDIAC CATH WITH CABG 11/13/2016 SPECT STRESS LVEF 55%, NO EVIDENCE OF ISCHEMI, LEFT VENTRICULAR DIALATION WITH STRESS 08/26/2017 EUS (ENDOSCOPIC U/S-DR. LE)-NO PANCREATIC MASS OR COMMON BILE DUCT STRICTURE HIDA SCAN-UNREMARKABLE 2017, NORMAL GB AND EF, HYPERTONIC SPHINCTER OF ODDI FATTY LIVER WITH FATTY PANCREAS COLONOSCOPY 2017 UPPER ENDOSCOPY 2018 GALLBLADDER U/S 04/23/18: FATTY INFILTRATE OF LIVER AND EXOPHYTIC CYST ON THE RIGHT LOBE. NO HEPATIC SOLID MASS OR BILLARY DILATATION. GALLBLADDER WITHOUT ACUTE FINDINGS ECHO: 12/20/17-NO SIGNIFICANT VALVULAR DISEASE, LEFT VENTRICULAR SYSTOLIC FUNCTION NORMAL, LEFT VENTRICULAR DIASTOLIC FUNCTION NORMAL, CONCENTRIC LEFT CENTRICULAR HYPERTROPHY MILD, HYPERTNESIVE HEART DISEASE MODERATE. MILDLY DILATED LEFT ATRIUM 4.3CM. MILDLY DILATED AORTIC ROOT AT 4.0CM. TRACE TO SMALL PERICARDAL EFFUSION NOTED POSTERIORLY IN LIMITED VIEWS, NO EVIDENCE OF CARDIAC TAMPONADE. LVEF 55-60% DERMATITIS HERPETIFORMIS CARPAL TUNNEL HAMMER TOES FRATURE THUMB-LEFT ALLERGIES CODEINE PHOSPHATE (FOR ALLERGIES USE ONLY): NAUSEA/VOMITING - SIDE EFFECTS LATEX (FOR ALLERGY USE ONLY): RASH - ALLERGY ADHESIVE TAPE: RASH - ALLERGY GLUTEN ALLERGY: RASH - ALLERGY SURGICAL HISTORY LEFT HAND, 5TH DIGIT, REMOVED TUMOR 1979 & 2017 TONSILLECTOMY CHILD COLONOSCOPY- INTERNAL HEMORRHOID, POLYP X 1- ADENOMATOUS 02/02/15 COLONOSCOPY - 2 TUBULAR ADENOMAS, MUCOSAL ULCERATION, MODERATE DIVERTICULOSIS IN THE SIGMOID COLON, EXTERNAL HEMORRHOIDS. REPEAT COLONOSCOPY 5 YRS 10/13/17 EGD- [facility] 02/02/15 HEMORRHOIDECTOMY 4-03-20 LEFT FOOT BUNIONECTOMY WITH FIRST METATARSAL OSTEOSTOMY-DR. IRIZARRY 03/31/16 CABG- 4 VESSEL AT [facility] 11/11/16 LEFT HAND CP SX, AND TENDON REMOVAL. [facility] 01/2018 UPPER ENDOSCOPIC ULTRASOUND WITH ANESTHESIA 07/2018 WIRES REMOVED FROM CHEST 09/29/2018 HAMMER TOE, LEFT FOOT, DR. IRIZARRY 03/30/19 EGD-DR. BEGUM 01/2019 HAMMERTOE 03/2019 RIGHT HAND TRIGGER AND CARPEL TUNNEL -2019 R2ND TOE RGREAT TOE SURGERY 06/2020 SCREW REMOVAL FOOT RIGHT FOOT HAMMER TOE CORRECTION - EDIE 07/2020 LEFT FOOT SCREW REMOVAL WITH BONE FILING - [facility] 07/2020 RIGHT ULNAR NERVE 01/2020 SOCIAL HISTORY GENERAL: TOBACCO USE ARE YOU A:FORMER SMOKER HOW LONG HAS IT BEEN SINCE YOU LAST SMOKED?5-10 YEARS LATEX QUESTIONNAIRE LATEX ALLERGY : HAVE YOU EVER DEVELOPED ANY TYPE OF REACTION AFTER HANDLING LATEX PRODUCTS SUCH RUBBER GLOVES, CONDOMS, DIAPHRAGMS, BALLOONS, SOCKS, OR UNDERWEAR?YES - PLEASE INDICATE :RUBBER GLOVES, CONDOMS, BALLOONS RASH LATEX ALLERGY : HAVE YOU EVER DEVELOPED ANY TYPE OF REACTION DURING OR AFTER DENTAL APPOINTMENT, VAGINAL/RECTAL EXAMINATION, SURGICAL PROCEDURE, OR ANY OTHER EXPOSURE?NO LATEX RISK : HAVE YOU EVER HAD ANY DIFFICULTY BREATHING OR HIVES AFTER EATING OR HANDLING ANY FRUITS, OR VEGETABLES; SUCH KIWI, BANANAS, STONE FRUITS, OR CHESTNUTSNO LATEX RISK : DO YOU HAVE A PREVIOUS PERSONAL HISTORY OF MORE THAN NINE SURGERIES, SPINA BIFIDA, OR REPEATED CATHERIZATIONS? NO LATEX RISK : ARE YOU FREQUENTLY EXPOSED TO LATEX PRODUCTS IN YOUR OCCUPATION?NO DATE ASKED : 01/22/2021 ALCOHOL USE: NO. LUNG CANCER SCREENING SMOKING STATUS:FORMER SMOKER IS THE PATIENT BETWEEN THE AGE OF 57 AND 79?NO BMI CARE GOAL FOLLOW-UP ABOVE NORMAL BMI FOLLOW-UPDIETARY MANAGEMENT EDUCATION, GUIDANCE, AND COUNSELING ALCOHOL SCREENING DID YOU HAVE A DRINK CONTAINING ALCOHOL IN THE PAST YEAR?NO POINTS0 INTERPRETATIONNEGATIVE RECREATIONAL DRUG USE DRUG USE?NO CAFFEINE CAFFEINE USE?YES COFEE: 1 CUPS PER DAY SEXUAL HX HAD SEX IN THE LAST 12 MONTHS (VAGINAL, ORAL, OR ANAL)?: NO, HAVE YOU EVER HAD AN STD?: NO. HIV / HEP-C SCREENING HIV TEST OFFERED TO PATIENT:NO HEP-C TEST OFFERED TO PATIENT:NO HINDU [id number] LUTHERAN NO SABIANISM BELIEFS THAT WOULD IMPACT HEALTH CARE. LANGUAGE LANGUAGES SPOKEN:BURUNDIAN EDUCATION 3RD GRADE. STATES IS ABLE TO READ NEWSPAPER. WRITES BUT SPELLING IS NOT GOOD.. LEARNING BARRIERS / SPECIAL NEEDS CHANGE FROM LAST VISIT?NO BARRIERS TO LEARNING?YES COMMENTS LEARNING DISABILITY HEARING IMPAIRED?NO VISION IMPAIRED?YES :CORRECTIVE LENSES READER COGNITIVELY IMPAIRED?NO READINESS TO LEARN?YES LEARNING PREFERENCES?NO LEARNING CAPABILITIES PRESENT?YES EMOTIONAL BARRIERS?NO SPECIAL DEVICES?NO DIRECTOR INSTITUTION NEEDED?NO OCCUPATION: DISABLED, SSI. DIET: REGULAR. EXERCISE: NO REGULAR EXERCISE. MARITAL STATUS: SINGLE. - HAS THE PATIENT BEEN EDUCATED REGARDING HIS/HER PLAN OF CARE?YES HAS THE PATIENT BEEN EDUCATED REGARDING PAIN, THE RISK FOR PAIN, THE IMPORTANCE OF EFFECTIVE PAIN MANAGEMENT, AND THE PAIN ASSESSMENT PROCESS?YES HOUSING: RENTS APARTMENT. ADVANCE DIRECTIVE ADVANCE DIRECTIVE DISCUSSED WITH PATIENT:YES PT DOES NOT HAVE ANY ADVANCED DIREDTIVES AND HE DECLINES INFORMATION ON HCP AT THIS TIME. HOSPITALIZATION/MAJOR DIAGNOSTIC PROCEDURE [facility]- DEPRESSION[facility]ETY 14 [facility] 18 [facility]- [place] OF DEPRESSION. [age]YO HEMORRHOIDECTOMY WITH REMOVAL OF A MIXED HEMORRHOIDAL BUNDLES AT THE LEFT LATERAL AND RIGHT ANTERIOR AND POSTERIOR POSITIONS. 01/11/2016 CABG: [facility] 11/11/16 [facility] 11/21 POST RIGHT HAND HAND AND ELBOW SURGERY 10/2019 [facility] ED- POST-OP PROBLEM, LEFT FOOT CELLULITIS 08/03/2020 RIGHT ULNAR NERVE 01/2020 VITAL SIGNS WT 311.6 LBS, HT 68 IN, BMI 47.37 INDEX, BP 131/82 MM HG, HR 83 /MIN, RR 18 /MIN, TEMP 96.0 F, OXYGEN SAT % 95%, SAFE IN ENV? (Y/N) Y, NA INITIALS AW 0919, REVIEWED BY: Jak TRAYLOR RN. EXAMINATION GENERAL: A HISTORY AND PHYSICAL EXAM ON THE PATIENT WAS DONE ON 12/10/2020(DATE OF ORIGINAL ASSESSMENT) IN PREPARATION OF SURGERY/PROCEDURE. I HAVE NOW REASSESSED THIS PATIENT'S HEALTH STATUS AND PERFORMED AN UPDATED EXAM TODAY. ALL CHANGES IN THE PATIENT'S HISTORY, PHYSICAL EXAM, PRE-EXISTING CONDITONS, AND INDICATIONS/CONTRAINDICATIONS TO THE PLANNED PROCEDURE AND ANESTHESIA ARE DOCUMENTED AND EVALUATED BELOW. I ATTEST TO THE ADEQUACY AND APPROPRIATENESS OF MY ASSESSMENT, AND CONFIRM THE NECESSITY FOR THE PLANNED PROCEDURE. THE PATIENT IS ALERT, ORIENTED TIMES THREE AND COOPERATIVE. LUNGS ARE CLEAR TO AUSCULTATION. HEART SHOWS REGULAR RHYTHM, NO MURMURS AND NO GALLOPS. ASSESSMENTS SACROILIITIS - M46.1 (PRIMARY) TREATMENT SACROILIITIS [facility] FLUORO GUIDANCE (PAIN)[id number] COMPLETION OF PROCEDURAL VISIT WHEN MEETS CRITERIADEWANDA SHANKAR 01/22/2021 11:36:00 AM > CRITERIA MET PROCEDURES PAIN NURSING RECORD PROCEDURE IN ROOM 1035, PHYSICIAN IN ROOM 1047, START 1055, FINISH 1057, PHYSICIAN OUT OF ROOM 1057, OUT OF ROOM 1107, ECG NORMAL SINUS, PATIENT SHIELDED YES, SAFETY STRAP YES, PREP CHLOROPREP Jak TRAYLOR RN, DRESSING TEGADERM DR. WILLIAMSON LOC: WANDA TRAYLOR 01/22/2021 9:57:18 AM > 1. ALERT, ORIENTED WANDA TRAYLOR 01/22/2021 11:13:22 AM > 1. ALERT, ORIENTED RESP: WANDA TRAYLOR 01/22/2021 9:57:25 AM > 1. REGULAR, NO DYSPNEA WANDA TRAYLOR 01/22/2021 11:13:29 AM > 1. REGULAR, NO DYSPNEA COLOR: WANDA TRAYLOR 01/22/2021 9:57:29 AM > 1. PINK WANDA TRAYLOR 01/22/2021 11:13:36 AM > 1. PINK SKIN: WANDA TRAYLOR 01/22/2021 9:57:33 AM > 1. WARM, DRY WANDA TRAYLOR 01/22/2021 11:13:41 AM > 1. WARM, DRY POSITION: WANDA TRAYLOR 01/22/2021 9:57:38 AM > 5. SITTING WANDA TRAYLOR 01/22/2021 10:35:05 AM > 1. PRONE WANDA TRAYLOR 01/22/2021 11:14:08 AM > 5. SITTING VITALS: WANDA TRAYLOR 01/22/2021 10:40:21 AM > 130,61,18,100% WANDA TRAYLOR 01/22/2021 10:56:52 AM > 130/78,59,18.96% KYMBERLY,WANDA 01/22/2021 11:02:04 AM > 135/68P, 61,18,96% WANDA TRAYLOR 01/22/2021 11:20:09 AM > 123/75,62,18,96% COMPLETION OF PROCEDURE APPOINTMENT: POST PAIN 0, DRESSING SITE DRY AND INTACT, IV N/A, GAIT STEADY LEFT VIA W/C DUE TO PROCEDURE, TEACHING COMPLETED, PATIENT ACKNOWLEDGES UNDERSTANDING YES, PROCEDURE APPOINTMENT COMPLETED AT 1135 BY: Jak TRAYLOR RN PRE PROCEDURE DIAGNOSIS SACROILITIS, SACROILIAC JOINT DYSFUNCTION POST PROCEDURE DIAGNOSIS SACROILIITIS, SACROILIAC JOINT DYSFUNCTION PROCEDURE LEFT SACROILIAC JOINT BLOCK SURGEON DR. CATRACHITA WILLIAMSON STORES LABORER NONE ANESTHESIA LOCAL PRE PROCEDURE NOTE THE PATIENT HAS A HISTORY OF CHRONIC LOW BACK PAIN. I EVALUATED THE PATIENT AND REVIEWED THE CHART. I WENT OVER THE RISKS, BENEFITS AND ALTERNATIVES ASSOCIATED WITH THIS PROCEDURE. THE PATIENT WOULD LIKE TO PROCEED AND GIVES CONSENT TO PERFORM THE PROCEDURE. THE PATIENT DENIES UNEXPLAINABLE WEIGHT LOSS, FEVER, CHILLS OR NEW CHANGES IN URINARY OR BOWEL CONTROL. THE PATIENT IS COVID-19 NEGATIVE. DESCRIPTION OF PROCEDURE THE PATIENT WAS BROUGHT TO THE PROCEDURE ROOM AND PLACED IN THE PRONE POSITION. THE LUMBOSACRAL AREA WAS CLEANED WITH CHLORAPREP SOLUTION AND DRAPED ASEPTICALLY. THE PROCEDURE WAS DONE UNDER STERILE CONDITIONS. A TIMEOUT WAS PERFORMED WHERE THE CONSENTED SITE WAS VERIFIED WITH EVERYONE IN THE ROOM UNDER FLUOROSCOPIC GUIDANCE, THE TARGET POINT WAS SELECTED AT THE LOWER BORDER OF THE LEFT SACROILIAC JOINT. TARGET POINT WAS SELECTED AFTER MEDIAL ROTATION AND TILT OF THE MAGNIFIER OR THE C-ARM. I CONFIRMED AGAIN THE SITE OF TARGET. LIDOCAINE 0.5% WAS USED TO NUMB THE SKIN AND THE SUBCUTANEOUS TISSUE BELOW IT. SPINAL NEEDLE, 22-GAUGE, WAS ADVANCED UNDER FLUOROSCOPIC GUIDANCE AND FOLLOWING PATIENT FEEDBACK UNTIL THE TARGET WAS TOUCHED. THE POSITION OF THE NEEDLE WAS VERIFIED WITH AP AND OBLIQUE VIEWS. AFTER PROPER POSITION OF THE NEEDLE WAS ACHIEVED, ISOVUE-M DYE 30%, 0.1 ML, WAS INJECTED SHOWING ADEQUATE SPREAD OF THE DYE. KENALOG 40 MG WAS INJECTED. THEN, A SOLUTION OF 3.0 ML OF BUPIVACAINE 0.125% WAS USED TO FLUSH THE NEEDLE. THE MEDICATIONS WERE VERIFIED WITH THE NURSE. THERE WAS NO EVIDENCE OF BLOOD, PARESTHESIA OR CEREBROSPINAL FLUID DURING THE PROCEDURE. THE PATIENT WAS SENT TO THE RECOVERY ROOM. THE PATIENT WAS MOVING THE EXTREMITIES AND DOING WELL. THERE WERE NO COMPLICATIONS DURING THE PROCEDURE. ESTIMATED BLOOD LOSS WAS LESS THAN 5 ML. FLUOROSCOPIC TIME WAS 9 SECONDS. POST PROCEDURE NOTE I AM LOOKING FOR LONG LASTING PAIN RELIEF. DEPENDING ON THE RESULTS, CONSIDER DOING AN EPIDURAL. THE PATIENT WILL BE SEEN IN A FOLLOW UP IN THE NEXT FEW WEEKS. INSTRUCTIONS WERE GIVEN, QUESTIONS WERE ANSWERED AND THE PATIENT EXPRESSED UNDERSTANDING AND AGREES WITH THE PAIN. I, JOE VERA, DOCUMENTED THE ABOVE INFORMATION ACTING A SCRIBE FOR DR. WILLIAMSON. I HAVE REVIEWED THE ABOVE DOCUMENT WRITTEN BY JOE VERA, AUTO TRANSMISSION MECHANIC, AND I VERIFY THAT IT IS ACCURATE. PROCEDURE CODES 95033 INJECT SACROILIAC JOINT, MODIFIERS: LT DISPOSITION & COMMUNICATION FOLLOW UP FOLLOW UP WITH MONUMENT ERECTOR (REASON: POST LEFT SACROILIAC JOINT BLOCK) ELECTRONICALLY SIGNED BY CATRACHITA WILLIAMSON MD, MD ON 01/28/2021 AT 07:21 PM EDT DISCLAIMER : THIS IS A VISIT SUMMARY EXTRACTED FROM THE [employer] CHART. IT IS NOT A COPY OF THE [employer] PROGRESS NOTE. GERALD
== END ==
LOC: M PAIN 10:20
PROVIDERS: ATTEND Anesthesiology
DX: M46.1 Sacroiliitis, not elsewhere classified (principal); K21.9 Gastro-esophageal reflux disease without esophagitis; E55.9 Vitamin D deficiency, unspecified; G47.33 Obstructive sleep apnea (adult) (pediatric); Z86.59 Personal history of other mental and behavioral disorders; Z87.891 Personal history of nicotine dependence; Z88.5 Allergy status to narcotic agent; Z91.018 Allergy to other foods; Z91.040 Latex allergy status; Z91.09 Other allergy status, other than to drugs and biological substances; E66.01 Morbid (severe) obesity due to excess calories; Z68.42 Body mass index [BMI] 45.0-49.9, adult; Z79.82 Long term (current) use of aspirin; Z79.899 Other long term (current) drug therapy
CPT/HCPCS: 27096; J3301; Q9967

== ENCOUNTER 2021-01-29 18:41 | Emergency (ER) | payer MEDICAID, OTHER ==
[~2021-01-29] VITALS: Ht 172.7 cm; Wt 139.7 kg
[~2021-01-29 18:41] MED LIST changes: -ANEC4CRE3 TOP; -BUPIVACAINE HCL 0.25% 30ML VIAL As Ordered ONE; -ISOVUE-M 300 61% 15ML VIAL As Ordered ONE; -LIDOCAINE 1% SDV 30ML VIAL As Ordered ONE; -TRIAMCINOLONE ACETONIDE SUSP 40 MG/ML VIAL (J3301) As Ordered ONE
[2021-01-29] MEDS ORDERED: LIDOCAINE 4% CREAM 5GM (LMX4) TOP ONE (20:10)
[2021-01-29] MEDS ORDERED: NORCO, ANEXSIA 5/325MG TABLET (HYDROcodone/ACETAMINOPHEN) PO ONE (20:10)
--- NOTE | 2021-01-29 21:17 | REPVR ---
PROCEDURE INFORMATION: Exam: XR Right Shoulder Exam date and time: 01/29/2021 8:20 PM Age: 55 years old Clinical indication: Pain; Shoulder; Right; Additional info: Bullitt pop while sweeping and broom broke TECHNIQUE: Imaging protocol: XR Right shoulder. Views: 2 or more views. COMPARISON: CR Shoulder, complete RIGHT 05/22/2017 12:28 PM FINDINGS: Bones/joints: Normal. Soft tissues: Normal. IMPRESSION: No acute findings. Electronically signed by: Jarod Rahman On 01/29/2021 21:17:15 PM
[2021-01-29] MEDS ORDERED: ANEC4CRE3 TOP (22:46)
[2021-01-29 23:06] VITALS: BP 134/81
== END 2021-01-29 23:12 | disposition home or self-care (01) ==
LOC: M ED 18:41
DX: S49.91XA Unspecified injury of right shoulder and upper arm, initial encounter (principal); X58.XXXA Exposure to other specified factors, initial encounter; Y92.009 Unspecified place in unspecified non-institutional (private) residence as the place of occurrence of the external cause; Y93.9 Activity, unspecified; Y99.9 Unspecified external cause status; R51.9 Headache, unspecified; I51.9 Heart disease, unspecified; E78.00 Pure hypercholesterolemia, unspecified; I10 Essential (primary) hypertension; G47.33 Obstructive sleep apnea (adult) (pediatric); Z86.711 Personal history of pulmonary embolism; K21.9 Gastro-esophageal reflux disease without esophagitis; H40.9 Unspecified glaucoma; Z86.010 Personal history of colon polyps; Z87.442 Personal history of urinary calculi; E03.9 Hypothyroidism, unspecified; K76.9 Liver disease, unspecified; M54.9 Dorsalgia, unspecified; F41.9 Anxiety disorder, unspecified; F32.9 Major depressive disorder, single episode, unspecified; F41.0 Panic disorder [episodic paroxysmal anxiety]; Z79.899 Other long term (current) drug therapy; Z91.89 Other specified personal risk factors, not elsewhere classified; Z91.040 Latex allergy status; Z88.5 Allergy status to narcotic agent

== ENCOUNTER 2021-02-05 12:32 | Emergency (ER) | payer OTHER ==
[~2021-02-05] VITALS: Ht 170.2 cm; Wt 140.8 kg
[2021-02-05] MEDS ORDERED: KETOROLAC 60MG 2ML VIAL IM ONE (14:10)
[2021-02-05 14:27] LABS: BASO % 0.4 % (0.0-1.0); EOS # 0.1 10^3/uL (0.0-0.5); EOS % 1.3 % (0.0-3.0); HEMATOCRIT 45.1 % (42.0-52.0); HEMOGLOBIN 14.2 g/dl (13.5-17.5); LYMPH # 1.7 10^3/uL (1.5-5.0); LYMPH % 18.5 % (24.0-44.0); MEAN CORPUSCULAR HEMOGLOBIN 28.9 pg (27.0-33.0); MEAN CORPUSCULAR HGB CONC 31.5 g/dl (32.0-36.5); MEAN CORPUSCULAR VOLUME 91.7 fl (80.0-96.0); MONO # 1.1 10^3/uL (0.0-0.8); MONO % 11.7 % (2.0-8.0); NEUTROPHILS # 6.3 10^3/uL (1.5-8.5); NEUTROPHILS % 67.1 % (36.0-66.0); PLATELET COUNT, AUTOMATED 247 10^3/uL (150-450); RED BLOOD COUNT 4.92 10^6/uL (4.30-6.10); WHITE BLOOD COUNT 9.4 10^3/uL (4.0-10.0)
[2021-02-05 14:52] LABS: BLOOD UREA NITROGEN 14 MG/DL (7-18); CALCIUM LEVEL 8.8 MG/DL (8.5-10.1); CARBON DIOXIDE LEVEL 26 MEQ/L (21-32); CHLORIDE LEVEL 106 MEQ/L (98-107); CREATININE FOR GFR 1.24 MG/DL (0.70-1.30); GLOMERULAR FILTRATION RATE > 60.0 (>56); GLUCOSE, FASTING 111 MG/DL (70-100); POTASSIUM SERUM 4.1 MEQ/L (3.5-5.1); SODIUM LEVEL 139 MEQ/L (136-145); URIC ACID 6.5 MG/DL (3.5-7.2)
[2021-02-05 15:08] LABS: ERYTHROCYTE SEDIMENTATION RATE 9 mm/hr (0-20)
--- NOTE | 2021-02-05 15:35 | REP ---
INDICATION: eval for stress fracture. COMPARISON: None. TECHNIQUE: Four views FINDINGS: There is been previous intra digital fusion of the 2nd digit fusing the proximal phalanx to the middle phalanx. There is a type 2 os naviculare. There is no acute fracture, dislocation, or subluxation. IMPRESSION: Findings as described above. No acute abnormality is identified. If a stress fracture is of clinical concern then an MRI would be warranted. <Electronically signed by John Fry > 02/05/21 1219
[2021-02-05 15:50] VITALS: BP 119/76
--- NOTE | 2021-02-06 06:41 | ED PDOC ---
Post-Departure Follow-Up right foot film faxed to [facility] for fu Yoshi Robles MD February 06, 2021 06:41
== END 2021-02-05 16:04 | disposition home or self-care (01) ==
LOC: M ED 12:32
DX: M79.671 Pain in right foot (principal); I50.9 Heart failure, unspecified; I10 Essential (primary) hypertension; E78.5 Hyperlipidemia, unspecified; G89.29 Other chronic pain; M54.9 Dorsalgia, unspecified; E03.9 Hypothyroidism, unspecified; F41.0 Panic disorder [episodic paroxysmal anxiety]; G47.33 Obstructive sleep apnea (adult) (pediatric); Z79.899 Other long term (current) drug therapy; Z88.5 Allergy status to narcotic agent; Z91.040 Latex allergy status; Z91.89 Other specified personal risk factors, not elsewhere classified
CPT/HCPCS: 36415; 73630; 80048; 84550; 85025; 85652; 86140; 96372; 99284; J1885

== ENCOUNTER → 2021-02-05 | Outpatient (CLI) | payer OTHER ==
[~2021-02-05] MED LIST changes: +ANEC4CRE3 TOP
--- NOTE | 2021-02-07 04:40 | ECWPNPC ---
PATIENT NAME: DEANNA AN : 1965 GENDER: MALE VISIT DATE: 02/05/2021 DISCHARGE DATE: 02/05/21 1128 VISIT LOCKED DATE TIME: PHYSICIAN: MINA HAYWOOD PHYSICIAN PAGER NO: ACTIVE RESOURCE: MINA HAYWOOD REASON FOR APPOINTMENT 1. POST LEFT SACROILIAC JOINT BLOCK HISTORY OF PRESENT ILLNESS GENERAL: HERE FOR POST PROCEDURE FOLLOW-UP. HAD LEFT SACROILIAC JOINT BLOCK ON 01/22/2021. REPORTING MARKED REDUCTION IN PAIN THAT CONTINUES TODAY. RATING PAIN LEVEL A 0/10 VAS. REVIEWED TREATMENT PLAN. -. FALL RISK SCREENING: SCREENING : NO FALLS REPORTED IN THE LAST YEAR. PAIN SCREENING: PATIENT HAS A COMPLAINT OF ACUTE OR CHRONIC PAIN :YES LOCATION OF PAIN:LOW BACK INTENSITY OF PAIN (SCALE OF 1 TO 10):2 WHAT DOES YOUR PAIN FEEL LIKE:SORE DURATION:INTERMITTENT PAIN IS INCREASED BY:PROLONGED STANDING PAIN IS DECREASED BY:USE OF PAIN MEDICATIONS NURSING NOTE: -. PAIN CENTER INTAKE QUESTIONS: DO YOU HAVE A HISTORY OF MRSA? :NO DO YOU TAKE A BLOOD THINNERS? :NO DO YOU HAVE ANY BLEEDING DISORDERS? :NO ANY NEW NUMBNESS OR WEAKNESS IN YOUR LEGS OR ARMS? :NO ANY PACEMAKER,DEFIBRILLATOR, OR DORSAL COLUMN STIMULATOR? :NO DO YOU HAVE ANY RASHES OR OPEN SORES? :YES RASH ON BOTH FEET BEHIND THE HEEL ARE YOU ALLERGIC TO IV DYE? :NO ARE YOU DIABETIC? :NO ANY NEW PROBLEMS WITH YOUR MEDICATIONS? :NO HAVE YOU RECEIVED A VACCINE IN THE PAST 30 DAYS? :YES 2ND COVID 01/07/2021 DO YOU PLAN TO RECEIVE A VACCINE IN THE NEXT 21 DAYS? :NO DO YOU NEED ANY PRESCRIPTION? :YES TRAMADOL DO YOU TAKE ANY IMMUNOSUPPRESSIVE MEDICATIONS? :NO IS THERE A CHANCE YOU COULD BE ? :NO ARE YOU BREAST FEEDING? :NO CURRENT MEDICATIONS TAKING ESCITALOPRAM OXALATE 10 MG TABLET 1 TABLET ORAL ONCE A DAY ALONG WITH A 20 MG TABLET TAKING BUSPIRONE HCL 10 MG TABLET TAKE ONE TABLET BY MOUTH @8AM AND TAKE ONE TABLET @8PM ORAL TAKING OMEPRAZOLE 40 MG CAPSULE DELAYED RELEASE TAKE ONE CAPSULE BY MOUTH @8AM ON AN EMPTY STOMACH ORAL TAKING TRIHEXYPHENIDYL HCL 2 MG TABLET TAKE ONE TABLET BY MOUTH TWICE DAILY ORALLY BID TAKING FAMOTIDINE 20 MG TABLET TAKE ONE TABLET BY MOUTH @8AM AND TAKE ONE TABLET BY MOUTH @8PM ORAL TAKING METOPROLOL TARTRATE 25 MG TABLET 1/2 TAB ORAL DAILY TAKING GABAPENTIN 600 MG TABLET TAKE ONE TABLET BY MOUTH @8AM AND TAKE ONE TABLET @12PM AND TAKE ONE TABLET @8PM ORAL Q8H TID TAKING TOPIRAMATE 50 MG TABLET WITH A 25 MG TAB FOR TOTAL OF 75 MGS ORALLY @ 1700 TAKING FISH OIL + D3 [id number] MG-UNIT CAPSULE 1 CAPSULE ORALLY BID OTC TAKING MULTIVITAMIN ADULT - TABLET DIRECTED ORALLY TAKING ONDANSETRON HCL 4 MG TABLET TAKE ONE TABLET BY MOUTH ONE TO TWO TIMES A DAY BEFORE MEALS, TAKE ONLY WHEN HAVING NAUSEA ORAL TAKING ASPIRIN 81 MG TABLET CHEWABLE 1 TABLET ORALLY ONCE A DAY TAKING OCEAN NASAL SPRAY 0.65 % SOLUTION 2 SPRAYS IN EACH NOSTRIL NEEDED NASALLY 4X DAILY TAKING AYR SALINE NASAL - GEL USE DIRECTED DAILY NEEDED NASALLY FOUR TIMES DAILY TAKING VENTOLIN HFA 108 (90 BASE) MCG/ACT AEROSOL SOLUTION INHALE TWO PUFFS BY MOUTH EVERY FOUR HOURS NEEDED INHALATION -, NOTES: 2 DAYS AGO TAKING ATORVASTATIN CALCIUM 40 MG TABLET TAKE 1 TABLET BY MOUTH ONCE A DAY TAKING VITAMIN D 1000 UNIT TABLET 2 TABLETS WITH MEAL ORALLY ONCE A DAY TAKING TRAMADOL HCL 50 MG TABLET 1 TABLET NEEDED ORALLY Q6H PRN MDD4 TAKING FLUTICASONE PROPIONATE 50 MCG/ACT SUSPENSION 1 SPRAY IN EACH NOSTRIL NASALLY BID TAKING LEVOTHYROXINE SODIUM 25 MCG TABLET 1 TABLET IN THE MORNING ON AN EMPTY STOMACH ORALLY ONCE A DAY TAKING TIZANIDINE HCL 4 MG TABLET 1 TABLET NEEDED ORALLY THREE TIMES A DAY NEEDED FOR SEVERE PAIN TAKING CETIRIZINE HCL 10 MG TABLET 1 TABLET ORALLY ONCE DAILY TAKING MONTELUKAST SODIUM 10 MG TABLET 1 TABLET ORALLY ONCE A DAY TAKING CLOBETASOL PROPIONATE 0.05 % CREAM APPLY THIN LAYER TO AFFECTED AREAS ON BOTH FEET EXTERNALLY TWICE A DAY MEDICATION LIST REVIEWED AND RECONCILED WITH THE PATIENT PAST MEDICAL HISTORY DEPRESSION/ANXIETY- DR LAWLER. /THERAPIST Q2 WEEKS HYPERLIPIDEMIA GERD WITH BARRETTS: REPEAT EGD IN 07/2018 VITAMIN D DEF FRAN: FOLLOWING WITH PULMONOLOGY: COMPLIANT WITH CPAP-PULMONOLOGY CAD: BYPASS WITH AUTOLOGOUS VEIN: DR. VALENCIA AT [facility] ECHO 10/17/2016. HYPERTENSIVE HEART DISEASE CARDIAC PET NUCLEAR STRESS 09/26/2016. LVEF 66% BACK PAIN HISTORY OF CHICKENPOX, MEASLES, MUMPS LYTIC LESION ADJACENT TO RT LOBE LIVER APPEARING WITHIN GB FOSSA: NO SURGICAL INTERVENTION IDICATED: DR. DOMINIQUE THYROID U/S 09/16 DIFFUSE HETEROGENEITY 2 6MM NODULES AT [facility]. - DR HERMILA RAUSCH CARDIAC CATH WITH CABG 11/13/2016 SPECT STRESS LVEF 55%, NO EVIDENCE OF ISCHEMI, LEFT VENTRICULAR DIALATION WITH STRESS 08/26/2017 EUS (ENDOSCOPIC U/S-DR. LE)-NO PANCREATIC MASS OR COMMON BILE DUCT STRICTURE HIDA SCAN-UNREMARKABLE 2017, NORMAL GB AND EF, HYPERTONIC SPHINCTER OF ODDI FATTY LIVER WITH FATTY PANCREAS COLONOSCOPY 2017 UPPER ENDOSCOPY 2018 GALLBLADDER U/S 04/23/18: FATTY INFILTRATE OF LIVER AND EXOPHYTIC CYST ON THE RIGHT LOBE. NO HEPATIC SOLID MASS OR BILLARY DILATATION. GALLBLADDER WITHOUT ACUTE FINDINGS ECHO: 12/20/17-NO SIGNIFICANT VALVULAR DISEASE, LEFT VENTRICULAR SYSTOLIC FUNCTION NORMAL, LEFT VENTRICULAR DIASTOLIC FUNCTION NORMAL, CONCENTRIC LEFT CENTRICULAR HYPERTROPHY MILD, HYPERTNESIVE HEART DISEASE MODERATE. MILDLY DILATED LEFT ATRIUM 4.3CM. MILDLY DILATED AORTIC ROOT AT 4.0CM. TRACE TO SMALL PERICARDAL EFFUSION NOTED POSTERIORLY IN LIMITED VIEWS, NO EVIDENCE OF CARDIAC TAMPONADE. LVEF 55-60% DERMATITIS HERPETIFORMIS CARPAL TUNNEL HAMMER TOES FRATURE THUMB-LEFT ALLERGIES CODEINE PHOSPHATE (FOR ALLERGIES USE ONLY): NAUSEA/VOMITING - SIDE EFFECTS LATEX (FOR ALLERGY USE ONLY): RASH - ALLERGY ADHESIVE TAPE: RASH - ALLERGY GLUTEN ALLERGY: RASH - ALLERGY FAMILY HISTORY FATHER: 79 YRS, [place], HTN, DIAGNOSED WITH HYPERTENSION, UNSPECIFIED HEART DISEASE IN 62 MOTHER: ALIVE 66 YRS, HTN, HYPERTENSION, UNSPECIFIED HEART DISEASE PATERNAL GRAND MOTHER: 1 BROTHER(S) , 1 SISTER(S) - HEALTHY. 3 HALF BROTHER, 1 HALF SISTER-HEALTHY, NO KNOWN FAMILY HISTORY OF ANY UROLOGICALLY RELATED DISEASES CANCERS. DENIES ANY FAMILY HX SKIN CANCER OR PANCREATIC CANCER PATERNAL GRANDMOTHER . SOCIAL HISTORY GENERAL: TOBACCO USE ARE YOU A:FORMER SMOKER HOW LONG HAS IT BEEN SINCE YOU LAST SMOKED?5-10 YEARS LATEX QUESTIONNAIRE LATEX ALLERGY : HAVE YOU EVER DEVELOPED ANY TYPE OF REACTION AFTER HANDLING LATEX PRODUCTS SUCH RUBBER GLOVES, CONDOMS, DIAPHRAGMS, BALLOONS, SOCKS, OR UNDERWEAR?YES - PLEASE INDICATE :RUBBER GLOVES, CONDOMS, BALLOONS RASH LATEX ALLERGY : HAVE YOU EVER DEVELOPED ANY TYPE OF REACTION DURING OR AFTER DENTAL APPOINTMENT, VAGINAL/RECTAL EXAMINATION, SURGICAL PROCEDURE, OR ANY OTHER EXPOSURE?NO LATEX RISK : HAVE YOU EVER HAD ANY DIFFICULTY BREATHING OR HIVES AFTER EATING OR HANDLING ANY FRUITS, OR VEGETABLES; SUCH KIWI, BANANAS, STONE FRUITS, OR CHESTNUTSNO LATEX RISK : DO YOU HAVE A PREVIOUS PERSONAL HISTORY OF MORE THAN NINE SURGERIES, SPINA BIFIDA, OR REPEATED CATHERIZATIONS? NO LATEX RISK : ARE YOU FREQUENTLY EXPOSED TO LATEX PRODUCTS IN YOUR OCCUPATION?NO DATE ASKED : 02/05/2021 ALCOHOL USE: NO. LUNG CANCER SCREENING SMOKING STATUS:FORMER SMOKER IS THE PATIENT BETWEEN THE AGE OF 57 AND 79?NO BMI CARE GOAL FOLLOW-UP ABOVE NORMAL BMI FOLLOW-UPDIETARY MANAGEMENT EDUCATION, GUIDANCE, AND COUNSELING ALCOHOL SCREENING DID YOU HAVE A DRINK CONTAINING ALCOHOL IN THE PAST YEAR?NO POINTS0 INTERPRETATIONNEGATIVE RECREATIONAL DRUG USE DRUG USE?NO CAFFEINE CAFFEINE USE?YES COFEE: 1 CUPS PER DAY SEXUAL HX HAD SEX IN THE LAST 12 MONTHS (VAGINAL, ORAL, OR ANAL)?: NO, HAVE YOU EVER HAD AN STD?: NO. HIV / HEP-C SCREENING HIV TEST OFFERED TO PATIENT:NO HEP-C TEST OFFERED TO PATIENT:NO ALEVISM [id number] CONGREGATIONAL NO SCIENTOLOGY BELIEFS THAT WOULD IMPACT HEALTH CARE. LANGUAGE LANGUAGES SPOKEN:[employer] 3RD GRADE. STATES IS ABLE TO READ NEWSPAPER. WRITES BUT SPELLING IS NOT GOOD.. LEARNING BARRIERS / SPECIAL NEEDS CHANGE FROM LAST VISIT?NO BARRIERS TO LEARNING?YES COMMENTS LEARNING DISABILITY HEARING IMPAIRED?NO VISION IMPAIRED?YES :CORRECTIVE LENSES READER COGNITIVELY IMPAIRED?NO READINESS TO LEARN?YES LEARNING PREFERENCES?NO LEARNING CAPABILITIES PRESENT?YES EMOTIONAL BARRIERS?NO SPECIAL DEVICES?NO NEW PATIENT ESCORT NEEDED?NO OCCUPATION: DISABLED, SSI. DIET: REGULAR. EXERCISE: NO REGULAR EXERCISE. MARITAL STATUS: SINGLE. - HAS THE PATIENT BEEN EDUCATED REGARDING HIS/HER PLAN OF CARE?YES HAS THE PATIENT BEEN EDUCATED REGARDING PAIN, THE RISK FOR PAIN, THE IMPORTANCE OF EFFECTIVE PAIN MANAGEMENT, AND THE PAIN ASSESSMENT PROCESS?YES HOUSING: RENTS APARTMENT. ADVANCE DIRECTIVE ADVANCE DIRECTIVE DISCUSSED WITH PATIENT:YES PT DOES NOT HAVE ANY ADVANCED DIREDTIVES AND HE DECLINES INFORMATION ON HCP AT THIS TIME. REVIEW OF SYSTEMS CONSTITUTIONAL: ANY RECENT FEVER NO . CHILLS NO . WEIGHT CHANGE OF UNKNOWN REASONS NO . GASTROENTEROLOGY: NEW UNEXPLAINABLE CHANGES IN BOWEL CONTROL NO . CONSTIPATION NO . GENITOURINARY: ANY NEW CHANGE IN BLADDER CONTROL? NO . NEUROLOGY: NEW ONSET DIZZINESS OR NEUROLOGICAL CHANGES NOT MENTIONED NO . NEW NUMBNESS OR PAIN PATTERNS NOT MENTIONED AND PERTINENT TO TODAY'S VISIT NO . CARDIOLOGY: NEW CHEST PRESSURE NO . PATIENT DENIES NO . RESPIRATORY: UNEXPLAINABLE COUGH NO . NEW SHORTNESS OF BREATH NO . VITAL SIGNS WT 313 LBS, HT 68 IN, BMI 47.59 INDEX, BP 120/64 MM HG, HR 76 /MIN, RR 18 /MIN, TEMP 96.2 F, OXYGEN SAT % 95%, SAFE IN ENV? (Y/N) YEST.VALENTIN LEAHY. EXAMINATION GENERAL EXAMINATION: GENERALAWAKE,ALERT ,PLEASANT . PSYCHAFFECT NORMAL . LUNGS:LUNG LAMB ARE CLEAR TO AUSCULTATION BILATERALLY. GOOD MOVEMENT OF AIR . HEART:S1, S2 IN A REGULAR RATE AND RHYTHM. NO SIGNIFICANT MURMURS, RUBS OR GALLOPS NOTED . 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 IT IS NOT A COPY OF THE [employer] PROGRESS NOTE. GERALD
== END ==
LOC: M PAIN 10:45
PROVIDERS: ATTEND Nurse Practitioner Family
DX: M46.1 Sacroiliitis, not elsewhere classified (principal); G89.29 Other chronic pain; K21.9 Gastro-esophageal reflux disease without esophagitis; E55.9 Vitamin D deficiency, unspecified; G47.33 Obstructive sleep apnea (adult) (pediatric); Z86.59 Personal history of other mental and behavioral disorders; Z87.891 Personal history of nicotine dependence; Z88.5 Allergy status to narcotic agent; Z91.018 Allergy to other foods; Z91.040 Latex allergy status; Z91.09 Other allergy status, other than to drugs and biological substances; E66.01 Morbid (severe) obesity due to excess calories; Z68.42 Body mass index [BMI] 45.0-49.9, adult; Z79.82 Long term (current) use of aspirin; Z79.899 Other long term (current) drug therapy

== ENCOUNTER → 2021-02-06 | Outpatient (CLI) | payer OTHER ==
[~2021-02-06] MED LIST changes: +ISOVUE-300 61% 50ML VIAL As Ordered ONE; +PROHANCE 279.3MG/ML 5ML VIAL As Ordered ONE
--- NOTE | 2021-02-06 11:38 | REP ---
INDICATION: RT SHOULDER TRAUMATIC FX W/ PAIN ? RCT VS [facility]- LABS 1ST. COMPARISON: Radiographs 01/29/2021. TECHNIQUE: Coronal oblique T1, T2 fat sat, sagittal oblique T2 fat sat, axial T2 fat sat, gradient echo. Post arthrogram T1 fat sat and T2 fat sat in multiple planes. FINDINGS: Rotator cuff: There is a partial undersurface tear of the anterior supraspinatus tendon. Acromioclavicular joint: There are moderate hypertrophic degenerative changes of the acromioclavicular joint with a tiny amount of fluid in the joint. Acromion: Type 2 Biceps Tendon: In bicipital groove, no tenosynovitis. Hill Sach's deformity: None. Deltoid muscle: No abnormal signal. Biceps labral complex: Intact. Labrum: No tear. Cartilage: No defects. Bone marrow: No abnormal signal. Joint fluid: No effusion. IMPRESSION: Partial undersurface tear anterior supraspinatus tendon. Moderate hypertrophic degenerative changes acromioclavicular joint. Type 2 acromion. No evidence of labral tear. <Electronically signed by Joaquin Romeo > 02/06/21 1131
--- NOTE | 2021-02-06 16:23 | REP ---
INDICATION: RT SHOULDER TRAUMATIC FX W/ PAIN ? RCT VS [facility]- LABS 1ST. COMPARISON: None TECHNIQUE: The procedure was performed by ALLISON Canales, under the direct supervision of Dr. Romeo. The benefits and risks of the procedure were explained to the patient, and an informed consent was obtained. Directly prior to the start of the procedure, a formal time-out was completed in the procedure room. The right glenohumeral joint space was localized using fluoroscopic guidance. The skin was prepped and draped in a sterile fashion. Approximately 5 mL of 1% Lidocaine 10 mg/ml was used as a local anesthetic. Using fluoroscopic guidance, a #22 gauge spinal needle was inserted and advanced into the right glenohumeral joint space. Approximately 1 mL of Isovue 300 was injected to verify placement. Twelve mL of a solution containing 20 mL of sterile saline and 0.15 mL of ProHance was injected into the joint space. The needle was removed and the patient was taken to MRI for post procedural imaging. FINDINGS: The patient tolerated the procedure well and there were no immediate complications. IMPRESSION: Fluoroscopic guided right shoulder MRI arthrogram injection. 0.3 minutes of fluoroscopy time was utilized for this procedure. Some fluoroscopic images are performed with last image hold technology. These images require no additional radiation. <Electronically signed by Daisy Hood > 02/06/21 1035 <Electronically signed by Joaquin Romeo > 02/06/21 [id number]
== END ==
LOC: M RADPRO 08:38
PROVIDERS: ATTEND Physician Assistant
DX: M75.111 Incomplete rotator cuff tear or rupture of right shoulder, not specified as traumatic (principal); M19.011 Primary osteoarthritis, right shoulder; Z87.81 Personal history of (healed) traumatic fracture
CPT/HCPCS: 23350; 73223; 77002; A9576; Q9967

== ENCOUNTER → 2021-02-06 | Outpatient (CLI) | payer OTHER ==
[~2021-02-06] MED LIST changes: -ISOVUE-300 61% 50ML VIAL As Ordered ONE; -PROHANCE 279.3MG/ML 5ML VIAL As Ordered ONE
[2021-02-06 09:31] LABS: BASO # 0.1 10^3/uL (0.0-0.2); BASO % 0.9 % (0.0-1.0); EOS # 0.1 10^3/uL (0.0-0.5); HEMATOCRIT 46.2 % (42.0-52.0); HEMOGLOBIN 14.4 g/dl (13.5-17.5); LYMPH # 1.8 10^3/uL (1.5-5.0); LYMPH % 25.7 % (24.0-44.0); MEAN CORPUSCULAR HEMOGLOBIN 28.7 pg (27.0-33.0); MEAN CORPUSCULAR HGB CONC 31.2 g/dl (32.0-36.5); MONO % 13.8 % (2.0-8.0); NEUTROPHILS # 3.9 10^3/uL (1.5-8.5); NEUTROPHILS % 56.6 % (36.0-66.0); PLATELET COUNT, AUTOMATED 260 10^3/uL (150-450); RED BLOOD COUNT 5.02 10^6/uL (4.30-6.10); WHITE BLOOD COUNT 6.9 10^3/uL (4.0-10.0)
[2021-02-06 09:57] LABS: ERYTHROCYTE SEDIMENTATION RATE 8 mm/hr (0-20)
[2021-02-06 10:05] LABS: HEMOGLOBIN A1c 5.9 %
[2021-02-06 10:26] LABS: ALBUMIN 3.5 GM/DL (3.2-5.2); ALT/SGPT 25 U/L (12-78); BILIRUBIN,TOTAL 0.3 MG/DL (0.2-1.0); BLOOD UREA NITROGEN 18 MG/DL (7-18); CARBON DIOXIDE LEVEL 26 MEQ/L (21-32); CHLORIDE LEVEL 108 MEQ/L (98-107); CREATININE FOR GFR 1.29 MG/DL (0.70-1.30); FREE T4 0.74 NG/DL (0.76-1.46); GLOMERULAR FILTRATION RATE > 60.0 (>56); GLUCOSE, FASTING 91 MG/DL (70-100); IRON (FE) 52 UG/DL (65-175); POTASSIUM SERUM 4.1 MEQ/L (3.5-5.1); SODIUM LEVEL 140 MEQ/L (136-145); TOTAL PROTEIN 6.9 GM/DL (6.4-8.2)
[2021-02-07 15:09] LABS: TISSUE TRANSGLUTAMINASE IgA 3 U/mL (0-3)
== END ==
LOC: M LAB 08:41
PROVIDERS: ATTEND Physician Assistant
DX: L30.9 Dermatitis, unspecified (principal); L13.0 Dermatitis herpetiformis; K90.0 Celiac disease; R73.09 Other abnormal glucose; K76.89 Other specified diseases of liver

== ENCOUNTER 2021-02-19 13:31 | Emergency (ER) | payer MEDICAID, OTHER ==
[~2021-02-19] VITALS: Ht 172.7 cm; Wt 143.2 kg
[2021-02-19] MEDS ORDERED: TRAM50TA2 PO (14:08)
[2021-02-19] MEDS ORDERED: KETOROLAC TROMETHAMINE 10 MG TAB PO ONE (15:25)
--- NOTE | 2021-02-19 15:52 | REP ---
INDICATION: pain/swelling COMPARISON: None. TECHNIQUE: Four views right ankle. FINDINGS: There is no evidence of acute fracture, dislocation, or intrinsic bone disease.The ankle mortise is anatomic. There is mild soft tissue swelling. IMPRESSION: No fracture or dislocation. Mild soft tissue swelling. <Electronically signed by Joaquin Romeo > 02/19/21 [id number]
--- NOTE | 2021-02-19 16:05 | REP ---
INDICATION: pain/swelling. COMPARISON: None. TECHNIQUE: Multiple ultrasonographic images of the deep venous structures of the right thigh were obtained from the common femoral vein to the popliteal vein along with Doppler interrogation and color flow Doppler images. FINDINGS: There is no abnormal echogenic material seen within any of the visualized deep venous structures that would suggest acute thrombosis. Coaptation is unremarkable throughout. Doppler interrogation shows an expected response to respiratory variability and augmentation. The color flow images show what appears to be a normal vascular pattern throughout. IMPRESSION: There is no ultrasonographic evidence of deep venous thrombosis involving any of the visualized deep venous structures of the right thigh, as described above. <Electronically signed by John Fry > 02/19/21 [id number]
[2021-02-19] MEDS ORDERED: PRED20TA PO (16:25)
[2021-02-19 16:30] VITALS: BP 151/84
== END 2021-02-19 16:33 | disposition home or self-care (01) ==
LOC: M ED 13:31
DX: M25.571 Pain in right ankle and joints of right foot (principal); E66.9 Obesity, unspecified; I50.9 Heart failure, unspecified; I11.0 Hypertensive heart disease with heart failure; E78.5 Hyperlipidemia, unspecified; K21.9 Gastro-esophageal reflux disease without esophagitis; G47.33 Obstructive sleep apnea (adult) (pediatric); E03.9 Hypothyroidism, unspecified; F41.9 Anxiety disorder, unspecified; F33.9 Major depressive disorder, recurrent, unspecified; Z79.51 Long term (current) use of inhaled steroids; Z79.890 Hormone replacement therapy; Z79.899 Other long term (current) drug therapy; Z91.048 Other nonmedicinal substance allergy status; Z88.5 Allergy status to narcotic agent; Z91.040 Latex allergy status; Z98.890 Other specified postprocedural states

== ENCOUNTER 2021-02-22 18:19 | Emergency (ER) | payer MEDICAID, OTHER ==
[~2021-02-22] VITALS: Ht 172.7 cm; Wt 141.3 kg
[2021-02-22 18:20] VITALS: BP 144/89
[2021-02-22] MEDS ORDERED: KETOROLAC 30 MG/ML 1ML VIAL IM ONE (21:40)
== END 2021-02-22 22:00 | disposition home or self-care (01) ==
LOC: M ED 18:19
DX: M79.671 Pain in right foot (principal); E78.5 Hyperlipidemia, unspecified; G47.33 Obstructive sleep apnea (adult) (pediatric); I11.9 Hypertensive heart disease without heart failure; K21.9 Gastro-esophageal reflux disease without esophagitis; Z88.6 Allergy status to analgesic agent; Z91.040 Latex allergy status
CPT/HCPCS: 96372; 99283; J1885

== ENCOUNTER 2021-02-28 14:00 | Inpatient (IN) | payer OTHER ==
[~2021-02-28] VITALS: Ht 172.7 cm; Wt 141.7 kg
[2021-02-28] MEDS ORDERED: ONDANSETRON 4MG/2ML VIAL IV ONE (14:50)
[2021-02-28] MEDS ORDERED: KETOROLAC 30 MG/ML 1ML VIAL IV ONE (14:50)
[2021-02-28] MEDS ORDERED: NS 1,000 ML IV ONE (14:50)
[2021-02-28 16:14] LABS: HEMATOCRIT 48.3 % (42.0-52.0); HEMOGLOBIN 15.4 g/dl (13.5-17.5); MEAN CORPUSCULAR HEMOGLOBIN 28.9 pg (27.0-33.0); MEAN CORPUSCULAR HGB CONC 31.9 g/dl (32.0-36.5); MEAN CORPUSCULAR VOLUME 90.8 fl (80.0-96.0); PLATELET COUNT, AUTOMATED 235 10^3/uL (150-450); RED BLOOD COUNT 5.32 10^6/uL (4.30-6.10); WHITE BLOOD COUNT 12.7 10^3/uL (4.0-10.0)
[2021-02-28] MEDS ORDERED: ISOVUE-370 76% 100ML VIAL As Ordered ONE (16:18)
[2021-02-28 16:39] LABS: ALBUMIN 3.1 GM/DL (3.2-5.2); BILIRUBIN,DIRECT 0.2 MG/DL (0.0-0.2); BILIRUBIN,TOTAL 0.8 MG/DL (0.2-1.0); CK-MB VALUE MASS 2.3 NG/ML (<3.6); MB/CK RELATIVE INDEX 2.3 (< OR =4); TOTAL PROTEIN 6.2 GM/DL (6.4-8.2); TROPONIN I 0.02 NG/ML (< 0.10)
--- NOTE | 2021-02-28 16:54 | REP ---
INDICATION: roght abd pain. COMPARISON: 07/04/2020 TECHNIQUE: Axial contrast-enhanced images from the lung bases to the pubic symphysis using 100 cc Isovue 370 intravenous contrast material. Coronal and sagittal reformations obtained. This CT examination was performed using the following dose reduction techniques: Automated exposure control, adjustment of mA and/or kv according to the patient's size, and the use of iterative reconstruction technique. FINDINGS: Liver demonstrates fatty infiltration and stable benign cyst measuring approximately 5.5 cm adjacent to the gallbladder fossa within the anterior right hepatic segment. The spleen, pancreas, gallbladder, bilateral adrenal glands and right kidney are normal. Left kidney includes multiple small nonobstructing calculi up to 4.5 mm. Small stable subcentimeter hypodensity along the anterior margin of the right kidney remains stable. Fluid-filled dilated small bowel is appreciated with collapsed small bowel in the right lower quadrant suggesting early acute small bowel obstruction with point of transition suggested in the right lower quadrant. No free air. No ascites.. Pelvis demonstrates normal bladder and age-appropriate prostate/seminal vesicles. No ascites. No free air. No intraperitoneal or retroperitoneal adenopathy. Abdominal aorta and vasculature appear normal. Musculoskeletal structures are intact and without acute osseous abnormality. IMPRESSION: 1. Findings suggesting small-bowel obstruction with transition suggested in the right lower quadrant. No ascites. No free air to suggest perforation. 2. Nonacute stable findings as above. <Electronically signed by Costa Meyers > 02/28/21 [id number]
[2021-02-28 17:13] LABS: LYMPHOCYTES 13 % (16-44); MONOCYTES 13 % (0-5); NEUTROPHILS 72 % (28-66); PLATELET ESTIMATE NORMAL (NORMAL)
[2021-02-28] MEDS ORDERED: PIPERACILLIN/TAZOBACTAM SOD 3.375 GM in D5W MINI-BAG PLUS 50 ML IV ONE (17:15)
[2021-02-28] MEDS ORDERED: LEXA1TAB2 PO (18:21)
[2021-02-28] MEDS ORDERED: LEXA1TAB PO (18:21)
[2021-02-28] MEDS ORDERED: PRED20TA PO (18:21)
[2021-02-28] MEDS ORDERED: LEVO25TA34 PO (18:21)
[2021-02-28] MEDS ORDERED: MOM 30ML SUSPENSION UDC PO PRN (18:40)
[2021-02-28] MEDS ORDERED: SODIUM CHLORIDE 0.9% 1000ML IV SCH (18:40)
[2021-02-28] MEDS ORDERED: MAALOX 30 ML SUSP *UDC PO PRN (18:40)
[2021-02-28] MEDS ORDERED: ACETAMINOPHEN TAB 650MG DOSE (2X325MG) PO PRN (18:40)
[2021-02-28] MEDS ORDERED: ALBUTEROL 90 MCG/ACT 8GM HFA INHALER INH PRN (18:55)
[2021-02-28 19:01] LABS: RSV AMPLIFICATION NEGATIVE (NEGATIVE)
[2021-02-28] MEDS ORDERED: ONDANSETRON 4MG/2ML VIAL IV PRN (19:40)
--- NOTE | 2021-02-28 19:43 | HPEPDOC ---
[facility] Medical History & Physical Date of Admission February 28, 2021 Date of Service: February 28, 2021 History and Physical CHIEF COMPLAINT: Abdominal pain, intractable nausea and vomiting HISTORY OF PRESENT ILLNESS: Patient reports that he has had intractable nausea and vomiting since last night. He is not been able to tolerate anything orally since that time as well. He apparently has not had anything like this in the past. The CT scan of the abdomen and pelvis performed in the emergency department shows what appears to be a small bowel obstruction, however he has never had any abdominal surgery, therefore ileus is more likely. There is no obvious etiology for this based on his history, he does have an elevated white count and lactic acidosis, therefore infectious is certainly a possibility. CODE STATUS: Full code PAST MEDICAL HISTORY: Depression Anxiety Hyperlipidemia GERD with Diallo's esophagus Vitamin D deficiency Obstructive sleep apnea and wears CPAP at night Coronary artery disease status post cardiac bypass surgery with autologous vein Hypertensive heart disease Chronic back pain Known history of lytic lesion adjacent to right lobe of the liver appearing within the gallbladder fossa, outpatient notes state no surgical intervention indicated Hypertonic sphincter [place] Fatty liver Fatty pancreas Most recent echocardiogram 2018 with normal systolic and diastolic function, estimated LVEF 55-60% Dermatitis herpetiformis Carpal tunnel syndrome 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 Denies alcohol or drug use. FAMILY HISTORY: Hypertension REVIEW OF SYSTEMS: Constitutional: Patient denies fevers, chills, night sweats, recent weight gain/ loss. HEENT: Patient denies blurred or double vision, transient visual disturbances, postnasal drip, epistaxis, sore throat, difficulty chewing or swallowing food. Cardiovascular: Patient denies chest discomfort/pain, palpitations, exertional dyspnea, orthopnea, edema of the extremities, claudication. Respiratory: Patient denies dyspnea, wheezing, cough, hemoptysis, sputum production. Gastrointestinal: Patient admits to nausea, vomiting, abdominal pain without diarrhea, constipation, melena, hematochezia, hematemesis, jaundice. PHYSICAL EXAMINATION: General: Awake, alert, oriented 3. HEENT: Head normocephalic atraumatic, conjunctiva are pink, sclera are nonicteric, buccal mucosa is pink and moist with no lesions in the oropharynx. Hearing is grossly intact to conversation. Respiratory: Clear to auscultation bilaterally with no wheezes, rales, or rhonchi. Cardiovascular: Regular rate and rhythm, with no rubs, gallops, or murmur. Abdomen: Soft, minimally tender, nondistended, no hepatosplenomegaly appreciated. Bowel sounds are quiet but present. Extremities: 2+ pulses in the radial and dorsalis pedis bilaterally. No evidence of clubbing or cyanosis. IMAGING: CT of the abdomen and pelvis with IV contrast only IMPRESSION: 1. Findings suggesting small-bowel obstruction with transition suggested in the right lower quadrant. No ascites. No free air to suggest perforation. 2. Nonacute stable findings as above. ASSESSMENT: Ileus versus small bowel obstruction (given that the patient has never had a bdominal surgery I am more prone to believe that this is an ileus) Sepsis Leukocytosis Lactic acidosis Depression Anxiety Hyperlipidemia GERD with Diallo's esophagus Vitamin D deficiency Obstructive sleep apnea and wears CPAP at night Coronary artery disease status post cardiac bypass surgery with autologous vein Hypertensive heart disease Chronic back pain DVT prophylaxis with Lovenox PLAN: Will admit the patient to MedSurg him. His nausea has improved with administration of Zofran, and is not actively vomiting anymore, so we'll keep that going. I did discuss the case with Dr. Kelly over the phone but did not request official consult, we feel that since his belly is not distended, and he is not actively vomiting, we can hold off on putting an NG tube in for now. We'll keep him nothing by mouth, and keep fluids running until resolution of sym ptoms. Given possibility of infectious etiology will treat empirically with Zosyn. Will order KUB for the morning. If patient's condition worsens, then recommend official consult to surgery. Otherwise continue the remainder of his home medications at their usual doses for his chronic conditions. Vital Signs Vital Signs Date Time Temp Pulse Resp B/P (MAP) Pulse Ox O2 Delivery O2 Flow Rate FiO2 02/28/21 14:30 124/78 (93) 02/28/21 14:29 97.8 122 20 100 Room Air Laboratory Data Labs 24H Laboratory Tests 2 02/28/21 14:46: Lactic Acid Level 2.6*H, Total Bilirubin 0.8, Direct Bilirubin 0.2, Aspartate Amino Transf (AST/SGOT) 15, Alanine Aminotransferase (ALT/SGPT) 24, Alkaline Phosphatase 122H, Total Creatine Kinase 100, Creatine Kinase MB 2.3, Creatine Kinase MB Relative Index 2.30, Troponin I 0.02, Total Protein 6.2L, Albumin 3.1L, Albumin/Globulin Ratio 1.0, Lipase 68L 02/28/21 15:55: Neutrophils (%) (Auto) , Nucleated Red Blood Cells % (auto) 0.0, Neutrophils 72H, Band Neutrophils 2, Lymphocytes (Manual) 13L, Monocytes (Manual) 13H, Platelet Estimate NORMAL 02/28/21 16:02: POC Glucose (Misc Panel) 113H, POC Sodium (Misc Panel) 142, POC Potassium (Misc Panel) 3.5, POC Chloride (Misc Panel) 106, POC Total CO2 (Misc Panel) 24.0, POC Blood Urea Nitrogen (Misc Panel 25, POC Ionized Calcium (Misc Panel) 4.1L, POC Creatinine (Misc Panel) 1.1, POC Hematocrit (Misc Panel) 48.0 02/28/21 18:02: Urine Color YELLOW, Urine Appearance HAZY, Urine pH 5.0, Urine Specific West 1.056, Urine Protein 1+H, Urine Glucose (UA) NEGATIVE, Urine Ketones NEGATIVE, Urine Blood 3+H, Urine Nitrite NEGATIVE, Urine Bilirubin NEGATIVE, Urine Urobilinogen 0.2, Urine Leukocyte Esterase NEGATIVE, Urine WBC (Auto) 1, Urine RBC (Auto) 54H, Urine Hyaline Casts (Auto) 0, Urine Bacteria (Auto) NEGATIVE, Urine Squamous Epithelial Cells 0, Urine Mucus (Auto) SMALL, Urine Sperm (Auto) , Coronavirus (COVID-19)(PCR) NEGATIVE, Influenza Type A (RT-PCR) NEGATIVE, Influenza Type B (RT-PCR) NEGATIVE, Respiratory Syncytial Virus (PCR) NEGATIVE CBC/BMP Laboratory Tests 02/28/21 15:55 Home Medications Scheduled Atorvastatin Calcium (Atorvastatin Calcium) 40 Mg Tab, 40 MG PO DAILY Buspirone HCl (Buspirone HCl) 10 Mg Tab, 10 MG PO BID Cetirizine HCl (Cetirizine HCl) 10 Mg Tab, 10 MG PO QPM Escitalopram Oxalate (Lexapro) 20 Mg Tablet, 20 MG PO QPM 30MG TOTAL DAILY Escitalopram Oxalate (Lexapro) 10 Mg Tablet, 10 MG PO QPM 30MG TOTAL DAILY Famotidine (Famotidine) 20 Mg Tablet, 20 MG PO BID Gabapentin (Gabapentin) 600 Mg Tab, 600 MG PO TID Levothyroxine Sodium (Levoxyl) 25 Mcg Tablet, 25 MCG PO DAILY Metoprolol Tartrate (Metoprolol Tartrate) 25 Mg Tablet, 12.5 MG PO DAILY Montelukast Sodium (Montelukast Sodium) 10 Mg Tablet, 10 MG PO QPM Omeprazole (Omeprazole) 40 Mg Capsule.dr, 40 MG PO DAILY Prednisone (Prednisone) 20 Mg Tablet, 20 MG PO DAILY PATIENT WAS ON TAPER DOSE, HAS 2 TABLETS LEFT Tizanidine HCl (Tizanidine HCl) 4 Mg Cap, 4 MG PO QHS Topiramate (Topiramate) 50 Mg Tablet, 50 MG PO BID 75MG TOTAL IN THE EVENING Topiramate (Topiramate) 25 Mg Tablet, 25 MG PO QPM 75MG TOTAL IN THE EVENING Trihexyphenidyl HCl (Trihexyphenidyl HCl) 2 Mg Tablet, 2 MG PO BID Scheduled PRN Albuterol Sulfate (Albuterol Sulfate Hfa) 8.5 Gm Hfa.aer.ad, 2 PUFF INH Q4H PRN for SHORTNESS OF BREATH Tramadol HCl (Tramadol HCl) 50 Mg Tablet, 1 TAB PO Q6H PRN for PAIN Allergies Coded Allergies: latex (Verified Allergy, Intermediate, rash, 07/18/20) TAPE (Verified Allergy, Mild, rash upon removal, 07/18/20) codeine (Verified Adverse Reaction, Mild, n/v, 07/18/20) A-FIB/CHADSVASC A-FIB History Current/History of A-Fib/PAF?: No JOIE OSORIO DO February 28, 2021 19:43
[2021-02-28] MEDS: traMADol 50 MG TAB PO PRN (20:16)
[2021-02-28] MEDS: TRIHEXYPHENIDYL 2 MG TAB PO SCH (21:00)
[2021-02-28] MEDS: TOPIRAMATE (TopAMAX) 25 MG TAB PO SCH ×2 (21:00)
[2021-02-28 22:00] VITALS: BP 120/70
[2021-02-28] MEDS: MONTELUKAST 10 MG TAB PO SCH (22:11)
[2021-02-28] MEDS: NS 1,000 ML IV SCH (22:11)
[2021-02-28] MEDS: PIPERACILLIN/TAZOBACTAM SOD 4.5 GM in D5W MINI-BAG PLUS 50 ML IV SCH (22:11)
[2021-02-28] MEDS: busPIRone 10 MG TAB PO SCH (22:12)
[2021-02-28] MEDS: FAMOTIDINE 20 MG TAB PO SCH (22:12)
[2021-02-28] MEDS: tiZANidine 4 MG TAB PO SCH (22:12)
[2021-02-28] MEDS: GABAPENTIN 300 MG CAP PO SCH (22:12)
[2021-02-28] MEDS: ESCITALOPRAM OXALATE 10 MG TAB (LEXAPRO) PO SCH (22:12)
[2021-03-01 05:00] VITALS: BP 118/78
[2021-03-01] MEDS: PIPERACILLIN/TAZOBACTAM SOD 4.5 GM in D5W MINI-BAG PLUS 50 ML IV SCH ×4 (05:04→21:15)
[2021-03-01] MEDS: LEVOTHYROXINE 25MCG TABLET (0.025MG) PO SCH (05:04)
[2021-03-01 06:51] LABS: HEMATOCRIT 43.6 % (42.0-52.0); HEMOGLOBIN 13.8 g/dl (13.5-17.5); MEAN CORPUSCULAR HEMOGLOBIN 28.3 pg (27.0-33.0); MEAN CORPUSCULAR HGB CONC 31.7 g/dl (32.0-36.5); MEAN CORPUSCULAR VOLUME 89.5 fl (80.0-96.0); PLATELET COUNT, AUTOMATED 202 10^3/uL (150-450); RED BLOOD COUNT 4.87 10^6/uL (4.30-6.10); WHITE BLOOD COUNT 6.3 10^3/uL (4.0-10.0)
[2021-03-01 07:14] LABS: BLOOD UREA NITROGEN 23 MG/DL (7-18); CALCIUM LEVEL 7.7 MG/DL (8.5-10.1); CARBON DIOXIDE LEVEL 23 MEQ/L (21-32); CHLORIDE LEVEL 112 MEQ/L (98-107); CREATININE FOR GFR 1.04 MG/DL (0.70-1.30); GLOMERULAR FILTRATION RATE > 60.0 (>56); GLUCOSE, FASTING 113 MG/DL (70-100); POTASSIUM SERUM 3.4 MEQ/L (3.5-5.1); SODIUM LEVEL 142 MEQ/L (136-145)
[2021-03-01] MEDS: NS 1,000 ML IV SCH ×3 (08:05→18:17)
[2021-03-01] MEDS: TOPIRAMATE (TopAMAX) 25 MG TAB PO SCH ×3 (08:07→21:14)
[2021-03-01] MEDS: OMEPRAZOLE 20 MG CAP PO SCH (08:08)
[2021-03-01] MEDS: METOPROLOL TART 12.5 MG PER 1/2 TAB PO SCH (08:09)
[2021-03-01] MEDS: GABAPENTIN 300 MG CAP PO SCH ×3 (08:09→21:14)
[2021-03-01] MEDS: busPIRone 10 MG TAB PO SCH ×2 (08:09→21:14)
[2021-03-01] MEDS: FAMOTIDINE 20 MG TAB PO SCH ×2 (08:10→21:14)
[2021-03-01] MEDS: TRIHEXYPHENIDYL 2 MG TAB PO SCH ×2 (08:10→21:14)
[2021-03-01] MEDS: ATORVASTATIN 20 MG TAB PO SCH (08:10)
[2021-03-01] MEDS: ENOXAPARIN 40MG/0.4ML SYRINGE (J1650 PER 10MG) SC SCH (08:11)
--- NOTE | 2021-03-01 09:33 | REP ---
INDICATION: Ileus COMPARISON: None. TECHNIQUE: Supine views of the abdomen and pelvis. FINDINGS: Dilated air-filled loops of small bowel noted along with normal appearance to the colon. Differential diagnosis includes early/partial small bowel obstruction and ileus. No organomegaly. No obvious pneumoperitoneum. Skeletal structures intact. IMPRESSION: Findings cannot differentiate between small bowel obstruction and ileus. <Electronically signed by Costa Meyers > 03/01/21 0929
[2021-03-01] MEDS ORDERED: MIRALAX *UNIT DOSE* 17GM PACKET PO PRN (17:40)
[2021-03-01] MEDS ORDERED: BISACODYL 5 MG TAB PO ONE (17:40)
--- NOTE | 2021-03-01 17:49 | IPNPDOC ---
Text Note Date of Service The patient was seen on 03/01/21. NOTE Subjective: Patient continues to have nausea and complains of diffuse mild ab dominal pain. Patient reported one large bowel movement overnight. Objective: GENERAL APPEARANCE: NAD HEENT: no scleral icterus, no JVD, EOMI CARDIOVASCULAR: S1S2 LUNGS: CTA ABDOMEN: Obese, soft mildly tender on palpation MUSCULOSKELETAL: no cyanosis, no swelling INTEGUMENT: no generalized pallor NEUROLOGICAL: cranial nerve function from 2-12 intact intact, follows commands, speech not dysarthric Assessment and plan Patient is 55 years old male with past history of depression, anxiety, hyper lipidemia, GERD presented to the hospital with abdominal pain. Abdominal pain/ileus Differential diagnosis included small bowel obstruction versus ileus KUB on 03/01 showed Dilated air-filled loops of small bowel noted along with normal appearance to the colon. Differential diagnosis includes early/partial small bowel obstruction and ileus. Patient did have large bowel movement overnight. Continue to monitor vital signs, will repeat KUB tomorrow Continue nothing by mouth, bisacodyl Continue IV fluid Leukocytosis Resolved Patient afebrile, not tachycardic. Hyperlipidemia Continue statin Lactic acidosis Resolved Coronary artery disease status post cardiac bypass surgery with autologous vein Continue home cardioprotective medications GERD with Diallo's esophagus Continue PPI Hypertensive heart diseases Blood pressure under control Continue home meds Anxiety/depression Continue home meds Chronic back pain Continue pain management VS,Fishbone, I+O VS, Fishbone, I+O Laboratory Tests 03/01/21 06:16 Vital Signs Date Time Temp Pulse Resp B/P (MAP) Pulse Ox O2 Delivery O2 Flow Rate FiO2 03/01/21 08:09 88 118/78 03/01/21 05:00 98.3 18 96 Room Air I&O- Last 24 Hours up to 6 AM 03/01/21 06:00 Intake Total 2350 ml Output Total 250 ml Balance 2100 ml LINDA BARR DO March 01, 2021 17:49
[2021-03-01] MEDS: ESCITALOPRAM OXALATE 10 MG TAB (LEXAPRO) PO SCH (21:14)
[2021-03-01] MEDS: MONTELUKAST 10 MG TAB PO SCH (21:14)
[2021-03-01] MEDS: tiZANidine 4 MG TAB PO SCH (21:14)
[2021-03-01 21:28] VITALS: BP 120/78
[2021-03-02] MEDS: NS 1,000 ML IV SCH (02:37)
[2021-03-02] MEDS: LEVOTHYROXINE 25MCG TABLET (0.025MG) PO SCH (05:02)
[2021-03-02] MEDS: PIPERACILLIN/TAZOBACTAM SOD 4.5 GM in D5W MINI-BAG PLUS 50 ML IV SCH (05:03)
[2021-03-02 05:05] VITALS: BP 125/74
[2021-03-02 06:38] LABS: HEMATOCRIT 44.2 % (42.0-52.0); HEMOGLOBIN 13.4 g/dl (13.5-17.5); MEAN CORPUSCULAR HGB CONC 30.3 g/dl (32.0-36.5); MEAN CORPUSCULAR VOLUME 92.3 fl (80.0-96.0); PLATELET COUNT, AUTOMATED 214 10^3/uL (150-450); RED BLOOD COUNT 4.79 10^6/uL (4.30-6.10); WHITE BLOOD COUNT 6.3 10^3/uL (4.0-10.0)
[2021-03-02 07:30] LABS: BLOOD UREA NITROGEN 17 MG/DL (7-18); CALCIUM LEVEL 8.6 MG/DL (8.5-10.1); CARBON DIOXIDE LEVEL 22 MEQ/L (21-32); CHLORIDE LEVEL 111 MEQ/L (98-107); CREATININE FOR GFR 1.06 MG/DL (0.70-1.30); GLOMERULAR FILTRATION RATE > 60.0 (>56); GLUCOSE, FASTING 87 MG/DL (70-100); POTASSIUM SERUM 4.1 MEQ/L (3.5-5.1); SODIUM LEVEL 143 MEQ/L (136-145)
[2021-03-02] MEDS: ATORVASTATIN 20 MG TAB PO SCH (08:37)
[2021-03-02] MEDS: GABAPENTIN 300 MG CAP PO SCH ×3 (08:37→20:29)
[2021-03-02] MEDS: TOPIRAMATE (TopAMAX) 25 MG TAB PO SCH ×3 (08:37→20:30)
[2021-03-02] MEDS: BISACODYL 5 MG TAB PO SCH (08:38)
[2021-03-02] MEDS: FAMOTIDINE 20 MG TAB PO SCH ×2 (08:38→20:29)
[2021-03-02] MEDS: OMEPRAZOLE 20 MG CAP PO SCH (08:38)
[2021-03-02] MEDS: busPIRone 10 MG TAB PO SCH ×2 (08:38→20:29)
[2021-03-02] MEDS: METOPROLOL TART 12.5 MG PER 1/2 TAB PO SCH (08:38)
[2021-03-02] MEDS: TRIHEXYPHENIDYL 2 MG TAB PO SCH ×2 (08:38→20:29)
[2021-03-02] MEDS: ENOXAPARIN 40MG/0.4ML SYRINGE (J1650 PER 10MG) SC SCH (08:39)
[2021-03-02] MEDS: traMADol 50 MG TAB PO PRN (08:40)
--- NOTE | 2021-03-02 09:21 | REP ---
INDICATION: ileus COMPARISON: 03/01/2021 TECHNIQUE: Supine view of the abdomen and pelvis. FINDINGS: Bowel gas pattern again demonstrates dilated air/fluid-filled loops of small bowel similar to prior examination. Large bowel is relatively normal in appearance. No obvious free air. IMPRESSION: Bowel gas pattern is essentially unchanged. Differential diagnosis again must include element of small-bowel obstruction and ileus. <Electronically signed by Costa Meyers > 03/02/21 0918
[2021-03-02] MEDS ORDERED: ZOFR4TAB16 PO (09:44)
[2021-03-02] MEDS ORDERED: ACET1TAB55 PO (09:44)
[2021-03-02] MEDS ORDERED: BISAC5TA PO (09:44)
--- NOTE | 2021-03-02 12:20 | DS.PDOC ---
Discharge Summary General Date of Admission February 28, 2021 at 18:39 Date of Discharge 03/02/21 Discharge Summary PROCEDURES PERFORMED DURING STAY: [None]. ADMITTING DIAGNOSES: Abdominal pain/ileus Leukocytosis Hyperlipidemia Lactic acidosis Coronary artery disease status post cardiac bypass surgery with autologous vein Hypertensive heart diseases GERD with Diallo's esophagus Chronic back pain Anxiety/depression DISCHARGE DIAGNOSES: Abdominal pain/ileus Leukocytosis Hyperlipidemia Lactic acidosis Coronary artery disease status post cardiac bypass surgery with autologous vein Hypertensive heart diseases GERD with Diallo's esophagus Chronic back pain Anxiety/depression COMPLICATIONS/CHIEF COMPLAINT: ILEUS. HISTORY OF PRESENT ILLNESS: Patient is 55 years old male with past history of depression, anxiety, hyperlipidemia, GERD presented to the hospital with abdominal pain. Patient reports that he has had intractable nausea and vomiting since last night. He is not been able to tolerate anything orally since that time as well. He apparently has not had anything like this in the past. The CT scan of the abdomen and pelvis performed in the emergency department shows what appears to be a small bowel obstruction, however he has never had any abdominal surgery, therefore ileus is more likely. There is no obvious etiology for this based on his history, he does have an elevated white count and lactic acidosis, therefore infectious is certainly a possibility HOSPITAL COURSE: During the hospital course following issue addressed Abdominal pain/ileus Differential diagnosis included small bowel obstruction versus ileus KUB on 03/01 showed Dilated air-filled loops of small bowel noted along with normal appearance to the colon. Differential diagnosis includes early/partial small bowel obstruction and ileus. Patient did have large bowel movement overnight. Today overnight patient had 3 bowel movements Soft mechanical diet was introduced and patient tolerated it well Leukocytosis Resolved Patient afebrile, not tachycardic. Hyperlipidemia Continue statin Lactic acidosis Resolved Coronary artery disease status post cardiac bypass surgery with autologous vein Continue home cardioprotective medications GERD with Diallo's esophagus Continue PPI Hypertensive heart diseases Blood pressure under control Continue home meds Anxiety/depression Continue home meds Chronic back pain Continue pain management Patient reports that he has wheatley DISCHARGE MEDICATIONS: Please see below. ALLERGIES: Please see below. PHYSICAL EXAMINATION ON DISCHARGE: VITAL SIGNS: Please see below. GENERAL APPEARANCE: NAD HEENT: no scleral icterus, no JVD, EOMI CARDIOVASCULAR: S1S2 LUNGS: CTA ABDOMEN: Obese, soft mildly tender on palpation MUSCULOSKELETAL: no cyanosis, no swelling INTEGUMENT: no generalized pallor NEUROLOGICAL: cranial nerve function from 2-12 intact intact, follows commands, speech not dysarthric LABORATORY DATA: Please see below. IMAGING: INDICATION: ileus COMPARISON: 03/01/2021 TECHNIQUE: Supine view of the abdomen and pelvis. FINDINGS: Bowel gas pattern again demonstrates dilated air/fluid-filled loops of small bowel similar to prior examination. Large bowel is relatively normal in appearance. No obvious free air. IMPRESSION: Bowel gas pattern is essentially unchanged. Differential diagnosis again must include element of small-bowel obstruction and ileus. PROGNOSIS: Fair ACTIVITY: [As tolerated]. DIET: Cardiac diet DISCHARGE PLAN: Home DISCHARGE INSTRUCTIONS: Soft mechanical diet for next 3 days ITEMS TO FOLLOWUP ON ON OUTPATIENT: Follow-up with PCP in 3-5 days DISCHARGE CONDITION: [Stable]. TIME SPENT ON DISCHARGE: 40minutes. Vital Signs/I&Os Vital Signs Date Time Temp Pulse Resp B/P (MAP) Pulse Ox O2 Delivery O2 Flow Rate FiO2 03/02/21 08:40 16 Room Air 03/02/21 08:38 67 125/74 03/02/21 05:05 97.9 96 I&O- Last 24 Hours up to 6 AM 03/02/21 06:00 Intake Total 2200 ml Output Total 1600 ml Balance 600 ml Laboratory Data Labs 24H Laboratory Tests 2 03/02/21 06:23: Nucleated Red Blood Cells % (auto) 0.0, Anion Gap 10, Glomerular Filtration Rate > 60.0, Calcium Level 8.6 CBC/BMP Laboratory Tests 03/02/21 06:23 Microbiology Microbiology 02/28/21 Blood Culture - Preliminary, Resulted No growth after 24 hours . All specim... 02/28/21 Blood Culture - Preliminary, Resulted No growth after 24 hours . All specim... Discharge Medications Scheduled Atorvastatin Calcium (Atorvastatin Calcium) 40 Mg Tab, 40 MG PO DAILY, (Reported) Bisacodyl (Bisacodyl) 5 Mg Tablet.dr, 10 MG PO DAILY Buspirone HCl (Buspirone HCl) 10 Mg Tab, 10 MG PO BID, (Reported) Cetirizine HCl (Cetirizine HCl) 10 Mg Tab, 10 MG PO QPM, (Reported) Escitalopram Oxalate (Lexapro) 20 Mg Tablet, 20 MG PO QPM, (Reported) 30MG TOTAL DAILY Escitalopram Oxalate (Lexapro) 10 Mg Tablet, 10 MG PO QPM, (Reported) 30MG TOTAL DAILY Famotidine (Famotidine) 20 Mg Tablet, 20 MG PO BID, (Reported) Gabapentin (Gabapentin) 600 Mg Tab, 600 MG PO TID, (Reported) Levothyroxine Sodium (Levoxyl) 25 Mcg Tablet, 25 MCG PO DAILY, (Reported) Metoprolol Tartrate (Metoprolol Tartrate) 25 Mg Tablet, 12.5 MG PO DAILY, (Reported) Montelukast Sodium (Montelukast Sodium) 10 Mg Tablet, 10 MG PO QPM, (Reported) Omeprazole (Omeprazole) 40 Mg Capsule.dr, 40 MG PO DAILY, (Reported) Ondansetron HCl (Zofran) 4 Mg Tablet, 1 TAB PO Q6H Tizanidine HCl (Tizanidine HCl) 4 Mg Cap, 4 MG PO QHS, (Reported) Topiramate (Topiramate) 50 Mg Tablet, 50 MG PO BID, (Reported) 75MG TOTAL IN THE EVENING Topiramate (Topiramate) 25 Mg Tablet, 25 MG PO QPM, (Reported) 75MG TOTAL IN THE EVENING Trihexyphenidyl HCl (Trihexyphenidyl HCl) 2 Mg Tablet, 2 MG PO BID, (Reported) Scheduled PRN Acetaminophen (Acetaminophen) 325 Mg Tablet, 650 MG PO Q4H PRN for PAIN OR FEVER Albuterol Sulfate (Albuterol Sulfate Hfa) 8.5 Gm Hfa.aer.ad, 2 PUFF INH Q4H PRN for SHORTNESS OF BREATH, (Reported) Tramadol HCl (Tramadol HCl) 50 Mg Tablet, 1 TAB PO Q6H PRN for PAIN, (Reported) Allergies Coded Allergies: latex (Verified Allergy, Intermediate, rash, 07/18/20) TAPE (Verified Allergy, Mild, rash upon removal, 07/18/20) codeine (Verified Adverse Reaction, Mild, n/v, 07/18/20) LINDA BARR DO March 02, 2021 12:20
[2021-03-02 14:00] VITALS: BP 147/84
[2021-03-02] MEDS: SIMETHICONE 80MG CHEW TAB PO SCH ×3 (14:09→20:30)
[2021-03-02] MEDS: tiZANidine 4 MG TAB PO SCH (20:29)
[2021-03-02] MEDS: MONTELUKAST 10 MG TAB PO SCH (20:29)
[2021-03-02] MEDS: ESCITALOPRAM OXALATE 10 MG TAB (LEXAPRO) PO SCH (20:29)
[2021-03-02 22:00] VITALS: BP 128/58
[2021-03-03 05:53] LABS: HEMATOCRIT 44.3 % (42.0-52.0); HEMOGLOBIN 13.6 g/dl (13.5-17.5); MEAN CORPUSCULAR HEMOGLOBIN 27.9 pg (27.0-33.0); MEAN CORPUSCULAR HGB CONC 30.7 g/dl (32.0-36.5); MEAN CORPUSCULAR VOLUME 90.8 fl (80.0-96.0); PLATELET COUNT, AUTOMATED 212 10^3/uL (150-450); RED BLOOD COUNT 4.88 10^6/uL (4.30-6.10); WHITE BLOOD COUNT 6.6 10^3/uL (4.0-10.0)
[2021-03-03 06:00] VITALS: BP 131/80
[2021-03-03 06:04] LABS: BLOOD UREA NITROGEN 12 MG/DL (7-18); CALCIUM LEVEL 8.6 MG/DL (8.5-10.1); CARBON DIOXIDE LEVEL 22 MEQ/L (21-32); CHLORIDE LEVEL 110 MEQ/L (98-107); CREATININE FOR GFR 1.01 MG/DL (0.70-1.30); GLOMERULAR FILTRATION RATE > 60.0 (>56); GLUCOSE, FASTING 85 MG/DL (70-100); POTASSIUM SERUM 3.7 MEQ/L (3.5-5.1); SODIUM LEVEL 140 MEQ/L (136-145)
[2021-03-03] MEDS: LEVOTHYROXINE 25MCG TABLET (0.025MG) PO SCH (06:06)
[2021-03-03 09:04] VITALS: BP 130/80
[2021-03-03] MEDS: METOPROLOL TART 12.5 MG PER 1/2 TAB PO SCH (09:04)
[2021-03-03] MEDS: FAMOTIDINE 20 MG TAB PO SCH (09:04)
[2021-03-03] MEDS: ATORVASTATIN 20 MG TAB PO SCH (09:04)
[2021-03-03] MEDS: TOPIRAMATE (TopAMAX) 25 MG TAB PO SCH (09:04)
[2021-03-03] MEDS: busPIRone 10 MG TAB PO SCH (09:04)
[2021-03-03] MEDS: BISACODYL 5 MG TAB PO SCH (09:05)
[2021-03-03] MEDS: OMEPRAZOLE 20 MG CAP PO SCH (09:05)
[2021-03-03] MEDS: GABAPENTIN 300 MG CAP PO SCH (09:05)
[2021-03-03] MEDS: SIMETHICONE 80MG CHEW TAB PO SCH (09:05)
[2021-03-03] MEDS: ENOXAPARIN 40MG/0.4ML SYRINGE (J1650 PER 10MG) SC SCH (09:05)
[2021-03-03] MEDS: TRIHEXYPHENIDYL 2 MG TAB PO SCH (09:05)
== END 2021-03-03 12:55 | disposition home or self-care (01) | DRG 247 ==
LOC: M ED 14:00 → M ED INP 18:39 → ENRESERV 20:40 → M MS5PR 21:40
PROVIDERS: ADMIT Neuromusculoskeletal Medicine & OMM; ATTEND Internal Medicine
DX: K56.7 Ileus, unspecified (principal); R11.2 Nausea with vomiting, unspecified; F32.9 Major depressive disorder, single episode, unspecified; F41.9 Anxiety disorder, unspecified; E78.5 Hyperlipidemia, unspecified; K22.70 Barrett's esophagus without dysplasia; K21.9 Gastro-esophageal reflux disease without esophagitis; E55.9 Vitamin D deficiency, unspecified; G47.33 Obstructive sleep apnea (adult) (pediatric); I25.10 Atherosclerotic heart disease of native coronary artery without angina pectoris; Z95.5 Presence of coronary angioplasty implant and graft; I10 Essential (primary) hypertension; M54.9 Dorsalgia, unspecified; K62.89 Other specified diseases of anus and rectum; K76.0 Fatty (change of) liver, not elsewhere classified; L13.0 Dermatitis herpetiformis; M20.42 Other hammer toe(s) (acquired), left foot; M21.542 Acquired clubfoot, left foot; Z87.891 Personal history of nicotine dependence; D72.829 Elevated white blood cell count, unspecified; E87.2 Acidosis; G24.01 Drug induced subacute dyskinesia

== ENCOUNTER 2021-03-08 19:11 | Inpatient (IN) | payer OTHER ==
[~2021-03-08] VITALS: Ht 172.7 cm; Wt 136.0 kg
[~2021-03-08 19:11] MED LIST changes: +ACET1TAB55 PO; +BISAC5TA PO; +LEVO25TA34 PO; +ZOFR4TAB16 PO
[2021-03-08 21:29] LABS: BASO # 0.1 10^3/uL (0.0-0.2); BASO % 0.7 % (0.0-1.0); EOS # 0.1 10^3/uL (0.0-0.5); EOS % 0.6 % (0.0-3.0); HEMATOCRIT 49.1 % (42.0-52.0); HEMOGLOBIN 15.5 g/dl (13.5-17.5); LYMPH # 1.5 10^3/uL (1.5-5.0); LYMPH % 15.4 % (24.0-44.0); MEAN CORPUSCULAR HEMOGLOBIN 28.6 pg (27.0-33.0); MEAN CORPUSCULAR HGB CONC 31.6 g/dl (32.0-36.5); MEAN CORPUSCULAR VOLUME 90.6 fl (80.0-96.0); MONO # 0.9 10^3/uL (0.0-0.8); MONO % 9.3 % (2.0-8.0); NEUTROPHILS # 7.3 10^3/uL (1.5-8.5); NEUTROPHILS % 72.3 % (36.0-66.0); PLATELET COUNT, AUTOMATED 237 10^3/uL (150-450); RED BLOOD COUNT 5.42 10^6/uL (4.30-6.10)
[2021-03-08 22:13] LABS: ALBUMIN 3.5 GM/DL (3.2-5.2); ALT/SGPT 51 U/L (12-78); BILIRUBIN,DIRECT < 0.1 MG/DL (0.0-0.2); BILIRUBIN,TOTAL 0.6 MG/DL (0.2-1.0); BLOOD UREA NITROGEN 16 MG/DL (7-18); CALCIUM LEVEL 9.2 MG/DL (8.5-10.1); CARBON DIOXIDE LEVEL 23 MEQ/L (21-32); CHLORIDE LEVEL 109 MEQ/L (98-107); CREATININE FOR GFR 1.29 MG/DL (0.70-1.30); GLOMERULAR FILTRATION RATE > 60.0 (>56); GLUCOSE, FASTING 101 MG/DL (70-100); LIPASE 122 U/L (73-393); SODIUM LEVEL 141 MEQ/L (136-145); TOTAL PROTEIN 6.9 GM/DL (6.4-8.2)
[2021-03-08] MEDS ORDERED: ISOVUE-370 76% 100ML VIAL As Ordered ONE (23:37)
[2021-03-09] MEDS ORDERED: HALOPERIDOL 5MG/ML VIAL (J1630 PER 1) IV ONE
--- NOTE | 2021-03-09 01:12 | REPVR ---
PROCEDURE INFORMATION: Exam: CT Abdomen And Pelvis With Contrast Exam date and time: 03/09/2021 12:16 AM Age: 55 years old Clinical indication: Abdominal pain; Generalized; Additional info: Abd pain, n/v/d TECHNIQUE: Imaging protocol: Computed tomography of the abdomen and pelvis with contrast. Radiation optimization: All CT scans at this facility use at least one of these dose optimization techniques: automated exposure control; mA and/or kV adjustment per patient size (includes targeted exams where dose is matched to clinical indication); or iterative reconstruction. Contrast material: ISOVUE 370; Contrast volume: 100 ml; Contrast route: INTRAVENOUS (IV); COMPARISON: CT ABD/PEL W/IV CONTRAST ONLY 02/28/2021 4:31 PM FINDINGS: Lungs: Atelectasis is present at the left lung base. Liver: Liver appears normal with no focal abnormality. Gallbladder and bile ducts: Gallbladder is present and shows no evidence of gallstone. Pancreas: Pancreas appears normal. No focal mass or peripancreatic inflammation. Spleen: Spleen appears homogeneous without focal mass. Adrenal glands: Adrenal glands are normal in appearance. Kidneys and ureters: Kidneys are unremarkable aside from nonobstructive left renal calculi. No hydronephrosis or ureter stone. Stomach and bowel: Small bowel loops are fluid-filled and dilated measuring up to 4.8 cm with inspissated enteric contents within distal bowel and no identifiable mass. Transition point is in the anterior right lower abdomen on approximately coronal image [id number] No evidence of acute diverticulitis. Appendix: Normal caliber appendix is identified, with no adjacent inflammation. Intraperitoneal space: . No free air. Vasculature: No aortic aneurysm. Main portal and splenic veins enhance normally. Lymph nodes: No enlarged lymph nodes. Urinary bladder: Urinary bladder appears normal. Bones/joints: Bony structures are normal except for lumbar spine degenerative disc changes. Soft tissues: Fat containing umbilical hernia is present. IMPRESSION: 1. Partial small bowel obstruction with small bowel dilated up to 4.8 cm, possibly secondary to adhesions. I do not see evidence of an obstructing mass or volvulus. 2. Nonobstructing left renal calculi. Electronically signed by: Roderick Quezada On 03/09/2021 01:12:40 AM
[2021-03-09] MEDS ORDERED: KETOROLAC 30 MG/ML 1ML VIAL IV PRN ×4 (02:35)
[2021-03-09] MEDS ORDERED: METOCLOPRAMIDE INJ 10MG/2ML VIAL (J2765 PER 1) IV PRN ×2 (02:35)
[2021-03-09] MEDS ORDERED: NS 1,000 ML IV SCH (02:35)
[2021-03-09] MEDS ORDERED: ONDANSETRON 4MG/2ML VIAL IV PRN ×2 (02:35)
[2021-03-09] MEDS ORDERED: ONDA-83 PO (03:01)
[2021-03-09] MEDS ORDERED: BISA5TAB15 PO (03:01)
[2021-03-09] MEDS ORDERED: ACET1TAB55 PO (03:01)
[2021-03-09] MEDS: NS 1,000 ML IV SCH ×2 (03:17→06:05)
[2021-03-09 03:44] LABS: RSV AMPLIFICATION NEGATIVE (NEGATIVE)
[2021-03-09 05:00] VITALS: BP 137/67
[2021-03-09] MEDS ORDERED: GI COCKTAIL 50ML BTL(HYOSCYAMINE/MAALOX/LIDOCAINE VISCOUS)(1:3:1) PO ONE (05:00)
[2021-03-09] MEDS ORDERED: LIDOCAINE VISCOUS 2% SOLN 15ML UDC TOP ONE (05:00)
[2021-03-09] MEDS ORDERED: LEVOTHYROXINE 25MCG TABLET (0.025MG) PO SCH (06:00)
--- NOTE | 2021-03-09 06:25 | HPEPDOC ---
General Date of Admission 03/09/21 Date of Service: Mar 09, 2021 Chief Complaint The patient is a 55-year-old male admitted with a reason for visit of N/V/D. Timing/Duration: Day(s), Getting worse Associated Symptoms: Malaise, Nausea, Vomiting, Dizziness, Other (abdominal pain) History of Present Illness Mr. Whelan is a 55 year-old morbidly obese male with significant PMH of Cataracts bilateral, glaucoma, syncope, headache, old [place], CAD with CABG - Quadruple Bypass, CHF, Hx TB, PE, Sleep Apnea on cPAP at bedtime, GERD, Baretts Esophagus, Hypercholesterolemia, HTN, Chest pain, RA, DDD, Gout, Fatty Liver, Hypothyroidism, Panic Disorder, ADHD, and Anxiety Depression, Chronic back pain, presents to [facility] with nausea, vomiting, diarrhea, RLQ and Umbilical abdominal pain that has continued since his hospital discharge on Thursday. He says his s ymptoms never improve to only become worse as the days went on. In reviewing his latest labs, his WBC is normal 10.0, absolute neutrophil is elevated 72.3 with normal lactic acid of 1.2. His CT ABD/PELV w IV contrast, I personally reviewed shows infiltrate in left base lobe of his lung, small int estines are enlarged. The official reading from Radiologist states: small bowel loops are filled with filled and dilated measuring 4.8 cm with enteric contents in the distal bowel. No acute diverticulitis and umbilical hernia composed of fat. He has partial small bowel obstruction with small bowel dilated 4.8 cm, with possible adhesions. Dr. Duque, General Surgeon, consulted and will follow patient during his hospital admission as patient will be admitted to Medical-Surgical unit on Telemetry with continuous pulse oximetry due to his chronic co-morbidities and is no NPO with NG tube ordered for low intermittent suction per recommendations from Dr. Duque. Home Medications Scheduled Atorvastatin Calcium (Atorvastatin Calcium) 40 Mg Tab, 40 MG PO DAILY, (Reported) Bisacodyl (Bisacodyl) 5 Mg Tablet.dr, 10 MG PO DAILY, (Reported) Buspirone HCl (Buspirone HCl) 10 Mg Tab, 10 MG PO BID, (Reported) Cetirizine HCl (Cetirizine HCl) 10 Mg Tab, 10 MG PO QPM, (Reported) Escitalopram Oxalate (Lexapro) 20 Mg Tablet, 20 MG PO QPM, (Reported) 30MG TOTAL DAILY Escitalopram Oxalate (Lexapro) 10 Mg Tablet, 10 MG PO QPM, (Reported) 30MG TOTAL DAILY Famotidine (Famotidine) 20 Mg Tablet, 20 MG PO BID, (Reported) Gabapentin (Gabapentin) 600 Mg Tab, 600 MG PO TID, (Reported) Levothyroxine Sodium (Levoxyl) 25 Mcg Tablet, 25 MCG PO DAILY, (Reported) Metoprolol Tartrate (Metoprolol Tartrate) 25 Mg Tablet, 12.5 MG PO DAILY, (Reported) Montelukast Sodium (Montelukast Sodium) 10 Mg Tablet, 10 MG PO QPM, (Reported) Omeprazole (Omeprazole) 40 Mg Capsule.dr, 40 MG PO DAILY, (Reported) Tizanidine HCl (Tizanidine HCl) 4 Mg Cap, 4 MG PO QHS, (Reported) Topiramate (Topiramate) 50 Mg Tablet, 50 MG PO BID, (Reported) 75MG TOTAL IN THE EVENING Topiramate (Topiramate) 25 Mg Tablet, 25 MG PO QPM, (Reported) 75MG TOTAL IN THE EVENING Trihexyphenidyl HCl (Trihexyphenidyl HCl) 2 Mg Tablet, 2 MG PO BID, (Reported) Scheduled PRN Acetaminophen (Acetaminophen) 325 Mg Tablet, 650 MG PO Q4H PRN for PAIN, (Reported) Albuterol Sulfate (Albuterol Sulfate Hfa) 8.5 Gm Hfa.aer.ad, 2 PUFF INH Q4H PRN for SHORTNESS OF BREATH, (Reported) Ondansetron HCl (Ondansetron HCl) 4 Mg Tablet, 4 MG PO Q6H PRN for NAUSEA OR VOMITING, (Reported) Tramadol HCl (Tramadol HCl) 50 Mg Tablet, 1 TAB PO Q6H PRN for PAIN, (Reported) Allergies Coded Allergies: latex (Verified Allergy, Intermediate, rash, 07/18/20) TAPE (Verified Allergy, Mild, rash upon removal, 07/18/20) codeine (Verified Adverse Reaction, Mild, n/v, 07/18/20) Past Medical History Medical History Cataracts bilateral, glaucoma, syncope, headache, old [place], CAD with CABG - Quadruple Bypass, CHF, Hx TB, PE, Sleep Apnea on cPAP at bedtime, GERD, Baretts Esophagus, Hypercholesterolemia, HTN, Chest pain, RA, DDD, Gout, Fatty Liver, Hypothyroidism, Panic Disorder, ADHD, and Anxiety Depression, Chronic back pain. 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 deficit disorder, Decreased mood, Depres misael, Other (Panic disorder) A-FIB/CHADSVASC A-FIB History Current/History of A-Fib/PAF?: No Review of Systems Constitutional: Reports: Malaise, Weakness, Fatigue Eyes: Denies: Pain, Vision change, Conjunctivae inflammation, Eyelid inflammation, Redness, Other ENT: Reports: Head Aches, Sore Throat Skin: Denies: Rash, Lesions, Jaundice, Bruising, Itching, Dry, Breakdown, Nail Changes, Other Pulmonary: Denies: Dyspnea, Cough, Pleuritic Chest Pain, Other Symptoms Cardiovascular: Reports: Lt Headedness Gastrointestinal: Reports: Nausea, Vomiting, Abdominal Pain, Diarrhea Genitourinary: Denies: Dysuria, Frequency, Incontinence, Hematuria, Retention, Other Symptoms Hematologic: Denies: Bruising, Bleeding Excessively, Petecchia, Purpura, Enl arged Lymph Nodes, Other Hematologic Endocrine: Denies: Polydipsia, Polyphagia, Polyuria, Heat Intolerance, Cold Intolerance, Other Endocrine Sx Neurological: Reports: Weakness Physical Examination General Exam: Positive: Alert, Mild Distress, Other (no cooperative; unkempt and dishovel) Eye Exam: Positive: PERRLA, Conjunctiva & lids normal ENT Exam: Positive: Atraumatic Neck Exam: Positive: Supple Chest Exam: Positive: Clear to auscultation, Normal air movement Abdomen Exam: Positive: BS Hypoactive, Tenderness, Other (distended, semi-firm) Skin Exam: Positive: Nl turgor and temperature Neuro Exam: Positive: Normal Speech, Cranial Nerves 3-12 NL Psych Exam: Positive: Oriented x 3 Vital Signs Vital Signs Date Time Temp Pulse Resp B/P (MAP) Pulse Ox O2 Delivery O2 Flow Rate FiO2 03/08/21 19:13 97.9 111 18 156/91 (112) 97 Room Air Laboratory Data Labs 24H Laboratory Tests 2 03/08/21 21:09: Immature Granulocyte % (Auto) 1.7, Neutrophils (%) (Auto) 72.3H, Lymphocytes (%) (Auto) 15.4L, Monocytes (%) (Auto) 9.3H, Eosinophils (%) (Auto) 0.6, Basophils (%) (Auto) 0.7, Neutrophils # (Auto) 7.3, Lymphocytes # (Auto) 1.5, Monocytes # (Auto) 0.9H, Eosinophils # (Auto) 0.1, Basophils # (Auto) 0.1, Nucleated Red Blood Cells % (auto) 0.0, Anion Gap 9, Glomerular Filtration Rate > 60.0, Lactic Acid Level 1.2, Calcium Level 9.2, Total Bilirubin 0.6, Direct Bilirubin < 0.1, Aspartate Amino Transf (AST/SGOT) 25, Alanine Aminotransferase (ALT/SGPT) 51, Alkaline Phosphatase 95, Total Protein 6.9, Albumin 3.5, Albumin/Globulin Ratio 1.0, Lipase 122 CBC/BMP Laboratory Tests 03/08/21 21:09 Problems (1) Partial small bowel obstruction Status: Acute Discussed With: Patient Problem Specific Plan: Consult Specialist, Monitor Clinically Problem Text: Mr. Whelan is a 55 year-old admitted to [facility] for partial Small bowel Obstruction with Illeus and dehydration. HOLD ALL PO MEDICATIONS. Small bowel Obstruction (partial) with Ileus-Acute Plan Admit to Inpatient Med-Surgical Unit NPO Place NG tube to LIS after placement is verified by chest x-ray (patient stated NG tube placement/trial hurt and request medication, ordered viscous lidocaine 2% to place pea size on NG tube before placement. Chest x-ray ordered to check placement Dr. Walters will see patient in AM IVF NS at 125 ml/hr (re-hydration due to n/v/d ) AM provider will decide on po medications to give GERD with Diallo Esophagus-Chronic Ordered GI cocktail x 1 Continue home medication: Pepcid 20 mg bid; Omeprazole 40 mg po qd; Zofran 4 mg po q 6 hours n/v Hypertensive Heart Disease with CHF-Chronic monitor bp continue home BP medication: Metoprolol tartrate 12.5 mg po qd; Weigh daily CAD with old [place] and CABG x 4 quadruple bypass and HLD-chronic Cardiac diet when no longer NPO Continue Atorvastatin 40 mg po qhs Chronic Back pain-chronic continue Tizanidine 4 mg po HS back spasm (muscle); Tramadol 50 mg po q 6 hours prn pain (hold with illeus) Hypothyroidism-chronic check TSH continue home : levothyroxine 25 mcg daily Anxiety and Depression-chronic continue home Meds: Buspirone 10 mg po bid; Lexapro 30 mg q HS; Migraine-chronic continue Topiramate 75 mg po q HS (when not NPO) Seasonal allergies-chronic continue singular 10mg po qd Obstructive Sleep Apnea-chronic on CPAP at home continue at bedtime Neuropathy-chronic continue Gabapentin 600 mg po TID Chronic constipation-chronic hold laxative Bisacodyl 10 mg daily po PPI: continue home medication- Omeprazole 40 mg DVT Prophylaxis: SCDS BLE w RAVINDRA SANCHEZ Discharge: Pending clinical course (2) Ileus Status: Acute Discussed With: Patient Problem Specific Plan: Consult Specialist, Monitor Clinically, Repeat Labs (3) Vomiting and diarrhea Status: Acute Problem Specific Plan: Monitor Clinically (4) Dehydration Status: Acute Discussed With: Patient Problem Specific Plan: Monitor Clinically (5) Abdominal pain Status: Acute Discussed With: Patient Problem Specific Plan: Monitor Clinically (6) Benign positional vertigo Status: Chronic Problem Specific Plan: Monitor Clinically Plan / VTE VTE Prophylaxis Ordered?: Yes Plan IVF: Initiate Diet: Make NPO Activity: Bedrest Medications: Change to IV Diagnostics: Check Labs, Repeat Labs in AM JOSÉ NAIDU Mar 09, 2021 02:39
[2021-03-09 07:28] LABS: BASO % 0.7 % (0.0-1.0); EOS # 0.1 10^3/uL (0.0-0.5); EOS % 1.1 % (0.0-3.0); HEMATOCRIT 43.7 % (42.0-52.0); HEMOGLOBIN 13.9 g/dl (13.5-17.5); LYMPH # 1.5 10^3/uL (1.5-5.0); LYMPH % 25.8 % (24.0-44.0); MEAN CORPUSCULAR HEMOGLOBIN 28.9 pg (27.0-33.0); MEAN CORPUSCULAR HGB CONC 31.8 g/dl (32.0-36.5); MEAN CORPUSCULAR VOLUME 90.9 fl (80.0-96.0); MONO # 0.8 10^3/uL (0.0-0.8); MONO % 13.5 % (2.0-8.0); NEUTROPHILS # 3.3 10^3/uL (1.5-8.5); NEUTROPHILS % 57.7 % (36.0-66.0); PLATELET COUNT, AUTOMATED 213 10^3/uL (150-450); RED BLOOD COUNT 4.81 10^6/uL (4.30-6.10); WHITE BLOOD COUNT 5.7 10^3/uL (4.0-10.0)
[2021-03-09 07:55] LABS: ALT/SGPT 42 U/L (12-78); BILIRUBIN,TOTAL 0.4 MG/DL (0.2-1.0); BLOOD UREA NITROGEN 14 MG/DL (7-18); CALCIUM LEVEL 8.2 MG/DL (8.5-10.1); CARBON DIOXIDE LEVEL 25 MEQ/L (21-32); CHLORIDE LEVEL 113 MEQ/L (98-107); CREATININE FOR GFR 1.13 MG/DL (0.70-1.30); GLOMERULAR FILTRATION RATE > 60.0 (>56); GLUCOSE, FASTING 91 MG/DL (70-100); POTASSIUM SERUM 3.8 MEQ/L (3.5-5.1); SODIUM LEVEL 144 MEQ/L (136-145); TOTAL PROTEIN 5.9 GM/DL (6.4-8.2); TRIGLYCERIDES LEVEL 104 MG/DL (<150)
[2021-03-09] MEDS ORDERED: busPIRone 10 MG TAB PO SCH (09:00)
[2021-03-09] MEDS ORDERED: METOPROLOL SUCC *XL* 12.5MG PER 1/2 TAB (TopROL *XL*) PO SCH (09:00)
[2021-03-09] MEDS ORDERED: FAMOTIDINE 20 MG TAB PO SCH (09:00)
[2021-03-09] MEDS ORDERED: TOPIRAMATE (TopAMAX) 25 MG TAB PO SCH ×2 (09:00→21:00)
[2021-03-09] MEDS ORDERED: ENOXAPARIN 40MG/0.4ML SYRINGE (J1650 PER 10MG) SC SCH (09:00)
[2021-03-09] MEDS ORDERED: ATORVASTATIN 20 MG TAB PO SCH (09:00)
[2021-03-09] MEDS ORDERED: TRIHEXYPHENIDYL 2 MG TAB PO SCH (09:00)
--- NOTE | 2021-03-09 10:50 | CR.PDOC ---
General Surgery Consultation Date of Consultation 03/09/21 History and Physical CONSULT REPORT FOR: hospitalist service REASON FOR CONSULTATION: abdominal pain, ?partial small bowel obstruction HISTORY OF PRESENT ILLNESS: PAST MEDICAL HISTORY: 1. . PAST SURGICAL HISTORY: INCLUDES: 1. . PREVIOUS ANESTHESIA REACTIONS: ALLERGIES: Please see below. FAMILY HISTORY: . HOME MEDICATIONS: Please see below. REVIEW OF SYSTEMS: GENERAL: [Denies chills, reports weight gain, reports feeling febrile yesterday]. HEENT: [Denies blurred vision and double vision. Denies ear symptoms. Denies hoarseness]. NECK: Denies any neck pain]. CARDIOVASCULAR: [Denies chest pain and palpitations]. MUSCULOSKELETAL: [Denies arthralgias, back pain and thrombophlebitis]. SKIN: [Denies rash]. NEUROLOGIC: [Denies headache, stroke and transient ischemic attack]. PSYCHIATRIC: [Denies anxiety and depression]. ENDOCRINE: [Denies thyroid disease]. HEMATOLOGY/ONCOLOGY: [Denies bleeding or clotting disorder]. HEART: [Denies any chest pains, palpitations, paroxysmal dyspnea, orthopnea]. PULMONARY: [Denies chronic cough, dyspnea and wheezing]. GASTROINTESTINAL: [Denies rectal bleeding, family history of colon cancer, constipation, diarrhea, dysphagia, heartburn and jaundice]. GENITOURINARY: [Denies dysuria, frequency, hematuria and nocturia]. ENDOCRINE: [Denies polydipsia, polyphagia, polyuria, heat or cold intolerance]. INFECTIOUS: [Denies any recent upper respiratory tract infection, UTI, need for use of antibiotics]. NUTRITION: [Reports good appetite]. PHYSICAL EXAMINATION: VITALS SIGNS: Please see below. GENERAL APPEARANCE:[Patient seen, laying in bed, awake, alert, and oriented. Comfortable, in no acute distress]. SKIN: [Warm and moist]. HEENT: [Normocephalic, atraumatic. [place] Neck palpebral conjunctiva, anicteric sclerae. Lips and mucosa appear moist]. NECK: [Supple, no thyromegaly. No obvious jugular venous distention]. LUNGS: [Clear to auscultation bilaterally. No wheezing appreciated]. HEART: [No chest wall abnormalities. Regular rate and rhythm with no murmurs appreciated]. ABDOMEN: Abdomen is , soft, . [No hepatosplenomegaly. No umbilical or groin herniations, nondistended. No noticeable rebound or guarding. No grimacing with palpation. No rebound tenderness. No masses appreciated]. EXTREMITIES: [Extremities have no deformities. No edema identified] ANCILLARIES: . LABORATORY DATA: Please see below. IMAGING STUDIES: . IMPRESSION AND PLAN: . Vital Signs Vital Signs Date Time Temp Pulse Resp B/P (MAP) Pulse Ox O2 Delivery O2 Flow Rate FiO2 03/09/21 05:00 97.6 66 18 137/67 (90) 97 Room Air I&Os I&O- Last 24 Hours up to 6 AM 03/09/21 06:00 Intake Total 500 ml Output Total 0 ml Balance 500 ml Laboratory Data Labs 24H Laboratory Tests 2 03/08/21 21:09: Immature Granulocyte % (Auto) 1.7, Neutrophils (%) (Auto) 72.3H, Lymphocytes (%) (Auto) 15.4L, Monocytes (%) (Auto) 9.3H, Eosinophils (%) (Auto) 0.6, Basophils (%) (Auto) 0.7, Neutrophils # (Auto) 7.3, Lymphocytes # (Auto) 1.5, Monocytes # (Auto) 0.9H, Eosinophils # (Auto) 0.1, Basophils # (Auto) 0.1, Nucleated Red Blood Cells % (auto) 0.0, Urine Color YELLOW, Urine Appearance CLOUDYH, Urine pH 5.0, Urine Specific Liberal 1.030, Urine Protein 1+H, Urine Glucose (UA) NEGATIVE, Urine Ketones NEGATIVE, Urine Blood 2+H, Urine Nitrite NEGATIVE, Urine Bilirubin NEGATIVE, Urine Urobilinogen 0.2, Urine Leukocyte Esterase NEGATIVE, Urine WBC (Auto) 9H, Urine RBC (Auto) 45H, Urine Hyaline Casts (Auto) 10, Urine Bacteria (Auto) NEGATIVE, Urine Squamous Epithelial Cells 0, Urine Calcium Oxalate Cryst (Auto) MODERATE, Urine Mucus (Auto) LARGE, Urine Sperm (Auto) , Anion Gap 9, Glomerular Filtration Rate > 60.0, Lactic Acid Level 1.2, Calcium Level 9.2, Total Bilirubin 0.6, Direct Bilirubin < 0.1, Aspartate Amino Transf (AST/SGOT) 25, Alanine Aminotransferase (ALT/SGPT) 51, Alkaline Phosphatase 95, Total Protein 6.9, Albumin 3.5, Albumin/Globulin Ratio 1.0, Lipase 122 03/09/21 02:54: Coronavirus (COVID-19)(PCR) NEGATIVE, Influenza Type A (RT-PCR) NEGATIVE, Influenza Type B (RT-PCR) NEGATIVE, Respiratory Syncytial Virus (PCR) NEGATIVE 03/09/21 07:07: Immature Granulocyte % (Auto) 1.2, Neutrophils (%) (Auto) 57.7, Lymphocytes (%) (Auto) 25.8, Monocytes (%) (Auto) 13.5H, Eosinophils (%) (Auto) 1.1, Basophils (%) (Auto) 0.7, Neutrophils # (Auto) 3.3, Lymphocytes # (Auto) 1.5, Monocytes # (Auto) 0.8, Eosinophils # (Auto) 0.1, Basophils # (Auto) 0.0, Nucleated Red Blood Cells % (auto) 0.0, Anion Gap 6L, Glomerular Filtration Rate > 60.0, Calcium Level 8.2L, Total Bilirubin 0.4, Aspartate Amino Transf (AST/SGOT) 15, Alanine Aminotransferase (ALT/SGPT) 42, Alkaline Phosphatase 89, Total Protein 5.9L, Albumin 3.0L, Albumin/Globulin Ratio 1.0, Magnesium Level 2.0, Triglycerides Level 104 CBC/BMP Laboratory Tests 03/08/21 21:09 03/09/21 07:07 Home Medications Scheduled Atorvastatin Calcium (Atorvastatin Calcium) 40 Mg Tab, 40 MG PO DAILY, (Reported) Bisacodyl (Bisacodyl) 5 Mg Tablet.dr, 10 MG PO DAILY, (Reported) Buspirone HCl (Buspirone HCl) 10 Mg Tab, 10 MG PO BID, (Reported) Cetirizine HCl (Cetirizine HCl) 10 Mg Tab, 10 MG PO QPM, (Reported) Escitalopram Oxalate (Lexapro) 20 Mg Tablet, 20 MG PO QPM, (Reported) 30MG TOTAL DAILY Escitalopram Oxalate (Lexapro) 10 Mg Tablet, 10 MG PO QPM, (Reported) 30MG TOTAL DAILY Famotidine (Famotidine) 20 Mg Tablet, 20 MG PO BID, (Reported) Gabapentin (Gabapentin) 600 Mg Tab, 600 MG PO TID, (Reported) Levothyroxine Sodium (Levoxyl) 25 Mcg Tablet, 25 MCG PO DAILY, (Reported) Metoprolol Tartrate (Metoprolol Tartrate) 25 Mg Tablet, 12.5 MG PO DAILY, (Reported) Montelukast Sodium (Montelukast Sodium) 10 Mg Tablet, 10 MG PO QPM, (Reported) Omeprazole (Omeprazole) 40 Mg Capsule.dr, 40 MG PO DAILY, (Reported) Tizanidine HCl (Tizanidine HCl) 4 Mg Cap, 4 MG PO QHS, (Reported) Topiramate (Topiramate) 50 Mg Tablet, 50 MG PO BID, (Reported) 75MG TOTAL IN THE EVENING Topiramate (Topiramate) 25 Mg Tablet, 25 MG PO QPM, (Reported) 75MG TOTAL IN THE EVENING Trihexyphenidyl HCl (Trihexyphenidyl HCl) 2 Mg Tablet, 2 MG PO BID, (Reported) Scheduled PRN Acetaminophen (Acetaminophen) 325 Mg Tablet, 650 MG PO Q4H PRN for PAIN, (Reported) Albuterol Sulfate (Albuterol Sulfate Hfa) 8.5 Gm Hfa.aer.ad, 2 PUFF INH Q4H PRN for SHORTNESS OF BREATH, (Reported) Ondansetron HCl (Ondansetron HCl) 4 Mg Tablet, 4 MG PO Q6H PRN for NAUSEA OR VOMITING, (Reported) Tramadol HCl (Tramadol HCl) 50 Mg Tablet, 1 TAB PO Q6H PRN for PAIN, (Reported) Allergies Coded Allergies: latex (Verified Allergy, Intermediate, rash, 07/18/20) TAPE (Verified Allergy, Mild, rash upon removal, 07/18/20) codeine (Verified Adverse Reaction, Mild, n/v, 07/18/20) ALISSA MNAN MD Mar 09, 2021 10:50
--- NOTE | 2021-03-09 11:21 | REP ---
INDICATION: ?ileus vs sbo COMPARISON: None. TECHNIQUE: Supine views of the abdomen and pelvis. FINDINGS: Bowel gas pattern is nonspecific and without obstruction or perforation. No organomegaly. No abnormal calcifications. Skeletal structures intact. IMPRESSION: Normal abdominal radiograph. No evidence for bowel obstruction. <Electronically signed by Costa Meyers > 03/09/21 [id number]
--- NOTE | 2021-03-09 11:31 | IPNPDOC ---
Text Note Date of Service The patient was seen on 03/09/21. NOTE Subjective: No any acute events overnight. Patient refused NG tube placement. Objective: GENERAL APPEARANCE: NAD HEENT: no scleral icterus, no JVD, EOMI CARDIOVASCULAR: S1S2 LUNGS: CTA ABDOMEN: Obese, abdomen soft and moderately distended MUSCULOSKELETAL: no cyanosis, no swelling INTEGUMENT: no generalized pallor NEUROLOGICAL: cranial nerve function from 2-12 intact intact, follows commands, speech not dysarthric Assessment and plan Patient is 55 years old male with past history of depression, anxiety, hyperlipidemia, GERD presented to the hospital with abdominal distention Abdominal pain/partial small bowel obstruction CT abdomen and pelvis showed 1. Partial small bowel obstruction with small bowel dilated up to 4.8 cm, possibly secondary to adhesions Talked Dr. Duque, he thinks it's unlikely small bowel obstruction surgical team upgraded his diet to full liquid Hyperlipidemia Continue statin Coronary artery disease status post cardiac bypass surgery with autologous vein Continue home cardioprotective medications GERD with Diallo's esophagus Continue PPI Hypertensive heart diseases Blood pressure under control Continue home meds Anxiety/depression Continue home meds Chronic back pain Continue pain management VS,Fishbone, I+O VS, Fishbone, I+O Laboratory Tests 03/08/21 21:09 03/09/21 07:07 Vital Signs Date Time Temp Pulse Resp B/P (MAP) Pulse Ox O2 Delivery O2 Flow Rate FiO2 03/09/21 05:00 97.6 66 18 137/67 (90) 97 Room Air I&O- Last 24 Hours up to 6 AM 03/09/21 06:00 Intake Total 500 ml Output Total 0 ml Balance 500 ml LINDA BARR DO Mar 09, 2021 11:31
[2021-03-09] MEDS ORDERED: ONDANSETRON 4 MG TAB PO PRN (11:40)
[2021-03-09] MEDS ORDERED: ACETAMINOPHEN TAB 650MG DOSE (2X325MG) PO PRN (11:40)
[2021-03-09] MEDS ORDERED: ALBUTEROL 90 MCG/ACT 8GM HFA INHALER INH PRN (11:40)
[2021-03-09 14:00] VITALS: BP 119/62
[2021-03-09] MEDS ORDERED: GABAPENTIN 300 MG CAP PO SCH (16:00)
[2021-03-09] MEDS ORDERED: tiZANidine 4 MG TAB PO SCH (21:00)
[2021-03-09] MEDS ORDERED: ESCITALOPRAM OXALATE 10 MG TAB (LEXAPRO) PO SCH ×2 (21:00)
[2021-03-09] MEDS ORDERED: MONTELUKAST 10 MG TAB PO SCH (21:00)
[2021-03-09] MEDS ORDERED: CETIRIZINE (ZyrTEC) 10 MG TAB PO SCH (21:00)
== END 2021-03-09 18:01 | disposition left against medical advice (07) | DRG 247 ==
LOC: M ED 19:11 → M ED INP 03-09 02:28 → ENRESERV 03-09 04:17 → M MS5PR 03-09 04:47
PROVIDERS: ADMIT Family Medicine; ATTEND Family Medicine
DX: K56.600 Partial intestinal obstruction, unspecified as to cause (principal); I11.0 Hypertensive heart disease with heart failure; I50.9 Heart failure, unspecified; K76.0 Fatty (change of) liver, not elsewhere classified; F41.9 Anxiety disorder, unspecified; F32.9 Major depressive disorder, single episode, unspecified; E78.5 Hyperlipidemia, unspecified; K21.9 Gastro-esophageal reflux disease without esophagitis; I25.10 Atherosclerotic heart disease of native coronary artery without angina pectoris; Z95.1 Presence of aortocoronary bypass graft; K22.70 Barrett's esophagus without dysplasia; M54.5 Low back pain; M10.9 Gout, unspecified; I25.2 Old myocardial infarction; M06.9 Rheumatoid arthritis, unspecified; E03.9 Hypothyroidism, unspecified; Z79.899 Other long term (current) drug therapy; Z91.040 Latex allergy status; Z88.5 Allergy status to narcotic agent; Z88.8 Allergy status to other drugs, medicaments and biological substances; Z89.022 Acquired absence of left finger(s); G43.909 Migraine, unspecified, not intractable, without status migrainosus; E86.0 Dehydration; H81.10 Benign paroxysmal vertigo, unspecified ear

== ENCOUNTER 2021-03-22 10:17 | Emergency (ER) | payer MEDICAID, OTHER ==
[~2021-03-22] VITALS: Ht 172.7 cm; Wt 136.4 kg
[~2021-03-22 10:17] MED LIST changes: +BISA5TAB15 PO; +OMEP40CA4 PO; -OMEP40CA97 PO
[2021-03-22 10:18] VITALS: BP 151/93
== END 2021-03-22 13:44 | disposition left against medical advice (07) ==
LOC: M ED 10:17
DX: Z53.21 Procedure and treatment not carried out due to patient leaving prior to being seen by health care provider (principal)

== ENCOUNTER 2021-03-25 15:23 | Emergency (ER) | payer OTHER ==
[~2021-03-25] VITALS: Ht 172.7 cm; Wt 140.9 kg
--- NOTE | 2021-03-25 15:55 | ECGEPIP ---
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
--- NOTE | 2021-03-25 16:03 | REP ---
INDICATION: CHEST PAIN. COMPARISON: Multiple the latest 11/12/2020 TECHNIQUE: Portable FINDINGS: The technique utilized in obtaining the radiograph has magnified the cardiac silhouette and accentuated the interstitial markings. The cardiomediastinal silhouette is unchanged. There is cardiomegaly accentuated by technique. Note is again made of previous median sternotomy. The lung johnson are clear and stable. No acute patchy parenchymal opacities or pleural effusions have developed. Pleural angles are again seen to be sharp. There is no significant change in the osseous structures. IMPRESSION: There is no acute cardiopulmonary disease. <Electronically signed by John Fry > 03/25/21 1318
[2021-03-25 16:27] LABS: BASO # 0.1 10^3/uL (0.0-0.2); BASO % 0.9 % (0.0-1.0); EOS # 0.1 10^3/uL (0.0-0.5); EOS % 1.3 % (0.0-3.0); HEMATOCRIT 42.9 % (42.0-52.0); HEMOGLOBIN 13.5 g/dl (13.5-17.5); LYMPH # 1.5 10^3/uL (1.5-5.0); MEAN CORPUSCULAR HEMOGLOBIN 28.8 pg (27.0-33.0); MEAN CORPUSCULAR HGB CONC 31.5 g/dl (32.0-36.5); MEAN CORPUSCULAR VOLUME 91.5 fl (80.0-96.0); MONO # 1.2 10^3/uL (0.0-0.8); MONO % 17.8 % (2.0-8.0); PLATELET COUNT, AUTOMATED 254 10^3/uL (150-450); RED BLOOD COUNT 4.69 10^6/uL (4.30-6.10)
[2021-03-25 16:43] LABS: INR 0.98; PROTHROMBIN TIME 13.2 SECONDS (12.5-14.3)
[2021-03-25 17:00] LABS: ALBUMIN 3.3 GM/DL (3.2-5.2); ALT/SGPT 27 U/L (12-78); BILIRUBIN,DIRECT 0.2 MG/DL (0.0-0.2); BILIRUBIN,TOTAL 0.5 MG/DL (0.2-1.0); BLOOD UREA NITROGEN 11 MG/DL (7-18); CALCIUM LEVEL 8.3 MG/DL (8.5-10.1); CARBON DIOXIDE LEVEL 25 MEQ/L (21-32); CHLORIDE LEVEL 110 MEQ/L (98-107); CK-MB VALUE MASS 2.6 NG/ML (<3.6); CPK CREATINE PHOSPHOKINASE 387 U/L (39-308); CREATININE FOR GFR 1.23 MG/DL (0.70-1.30); GLOMERULAR FILTRATION RATE > 60.0 (>56); GLUCOSE, FASTING 94 MG/DL (70-100); LIPASE 76 U/L (73-393); MB/CK RELATIVE INDEX 0.67 (< OR =4); POTASSIUM SERUM 3.7 MEQ/L (3.5-5.1); SODIUM LEVEL 141 MEQ/L (136-145); TOTAL PROTEIN 6.3 GM/DL (6.4-8.2); TROPONIN I < 0.02 NG/ML (< 0.10)
[2021-03-25] MEDS ORDERED: ACETAMINOPHEN 325 MG TAB PO ONE (17:10)
[2021-03-25 21:55] LABS: CK-MB VALUE MASS 2.1 NG/ML (<3.6); CPK CREATINE PHOSPHOKINASE 332 U/L (39-308); MB/CK RELATIVE INDEX 0.63 (< OR =4); TROPONIN I < 0.02 NG/ML (< 0.10)
[2021-03-25 22:31] VITALS: BP 150/100
--- NOTE | 2021-03-26 07:57 | ECGEPIP ---
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
== END 2021-03-25 23:11 | disposition home or self-care (01) ==
LOC: M ED 15:23
DX: R07.89 Other chest pain (principal); R00.0 Tachycardia, unspecified; I50.9 Heart failure, unspecified; I25.2 Old myocardial infarction; I10 Essential (primary) hypertension; E78.5 Hyperlipidemia, unspecified; K21.9 Gastro-esophageal reflux disease without esophagitis; F90.9 Attention-deficit hyperactivity disorder, unspecified type; Z87.442 Personal history of urinary calculi; Z95.1 Presence of aortocoronary bypass graft; Z87.891 Personal history of nicotine dependence; Z79.899 Other long term (current) drug therapy; Z91.89 Other specified personal risk factors, not elsewhere classified; Z91.040 Latex allergy status; Z88.5 Allergy status to narcotic agent

== ENCOUNTER 2021-03-28 18:26 | Emergency (ER) | payer OTHER ==
[~2021-03-28] VITALS: Ht 172.7 cm; Wt 139.9 kg
[~2021-03-28 18:26] MED LIST changes: -ISOVUE-300 61% 50ML VIAL As Ordered ONE; -LIDOCAINE 1% MDV 20ML VIAL As Ordered ONE; -methylPREDNISolone SUSP 40MG/ML 1ML VIAL (DEPO MEDROL) As Ordered ONE
[2021-03-28 18:27] VITALS: BP 122/70
== END 2021-03-28 22:33 | disposition left against medical advice (07) ==
LOC: M ED 18:26
DX: Z53.21 Procedure and treatment not carried out due to patient leaving prior to being seen by health care provider (principal)

== ENCOUNTER → 2021-03-28 | Outpatient (CLI) | payer OTHER ==
[~2021-03-28] MED LIST changes: +ISOVUE-300 61% 50ML VIAL As Ordered ONE; +LIDOCAINE 1% MDV 20ML VIAL As Ordered ONE; +methylPREDNISolone SUSP 40MG/ML 1ML VIAL (DEPO MEDROL) As Ordered ONE
--- NOTE | 2021-03-28 12:22 | REP ---
INDICATION: INCOMPLETE ROTA CUFF TEAR RIGHT SHOULDER. COMPARISON: None TECHNIQUE: The procedure was performed by ALLISON Canales, under the direct supervision of Dr. Romeo. The benefits and risks of the procedure were explained to the patient, and an informed consent was obtained. Directly prior to the start of the procedure, a formal time-out was completed in the procedure room. The right glenohumeral joint space was localized using fluoroscopic guidance. The skin was prepped and draped in a sterile fashion. Approximately 5 mL of 1% Lidocaine 10 mg/ml was used as a local anesthetic. Using fluoroscopic guidance, a #22 gauge spinal needle was inserted and advanced into the right glenohumeral joint space. Approximately 1 mL of Isovue 300 was injected to verify placement. Seven mL of a solution containing 5 mL 1% lidocaine 10 mg/ml and 2 mL Depo-Medrol 40 milligrams/milliliter was injected into the joint space. The needle was removed and hemostasis was achieved. FINDINGS: The patient tolerated the procedure well and there were no immediate complications. IMPRESSION: 1. Fluoroscopically guided intra-articular right shoulder injection. 0.1 minutes of fluoroscopy time was utilized for this procedure. Some fluoroscopic images are performed with last image hold technology. These images require no additional radiation. <Electronically signed by Daisy Hood > 03/28/21 1030 <Electronically signed by Joaquin Romeo > 03/28/21 121
== END ==
LOC: M RADPRO 09:19
PROVIDERS: ATTEND Physician Assistant
DX: M75.111 Incomplete rotator cuff tear or rupture of right shoulder, not specified as traumatic (principal)
CPT/HCPCS: 20610; 77002; J1030; Q9967

== ENCOUNTER → 2021-04-15 | Outpatient (CLI) | payer OTHER ==
[~2021-04-15] MED LIST changes: +ACET-1415 PO; -ACET-837 PO; +ASPE4PAD TOP; +ASPI81TA26 PO; +CIPR-249 PO; +HYDR-3363 PO; -MONT10TA10 PO; +MONT10TA97 PO; -OMEP-221 PO; +OMEP40CA5 PO; +PROM25TA12 PO; +TAMS1CAP17 PO
== END ==
LOC: M PAIN 11:15
PROVIDERS: ATTEND Nurse Practitioner Family
DX: M46.1 Sacroiliitis, not elsewhere classified (principal); G89.29 Other chronic pain; K21.9 Gastro-esophageal reflux disease without esophagitis; E55.9 Vitamin D deficiency, unspecified; G47.33 Obstructive sleep apnea (adult) (pediatric); Z86.59 Personal history of other mental and behavioral disorders; Z87.891 Personal history of nicotine dependence; Z88.5 Allergy status to narcotic agent; Z91.018 Allergy to other foods; Z91.040 Latex allergy status; Z91.09 Other allergy status, other than to drugs and biological substances; E66.01 Morbid (severe) obesity due to excess calories; Z68.42 Body mass index [BMI] 45.0-49.9, adult; Z79.82 Long term (current) use of aspirin; Z79.899 Other long term (current) drug therapy

== ENCOUNTER → 2021-04-25 | Outpatient (CLI) | payer OTHER ==
[~2021-04-25] MED LIST changes: -ASPE4PAD TOP; -ASPI81TA26 PO; -CIPR-249 PO; -HYDR-3363 PO; +MONT10TA10 PO; -MONT10TA97 PO; +OMEP-221 PO; -OMEP40CA5 PO; -PROM25TA12 PO; -TAMS1CAP17 PO
[2021-04-25 17:38] LABS: ALBUMIN 3.6 GM/DL (3.2-5.2); ALT/SGPT 30 U/L (12-78); BILIRUBIN,TOTAL 0.3 MG/DL (0.2-1.0); BLOOD UREA NITROGEN 13 MG/DL (7-18); CALCIUM LEVEL 9.1 MG/DL (8.5-10.1); CARBON DIOXIDE LEVEL 29 MEQ/L (21-32); CHLORIDE LEVEL 106 MEQ/L (98-107); CHOLESTEROL LEVEL 162 MG/DL (<200); CHOLESTEROL RISK RATIO 3.681 (<5); FREE T4 0.76 NG/DL (0.76-1.46); GLOMERULAR FILTRATION RATE > 60.0 (>56); GLUCOSE, FASTING 88 MG/DL (70-100); HDL CHOLESTEROL 44 MG/DL (>40); LDL CHOLESTEROL 85 MG/DL (<100); NON-HDL-C 118 MG/DL; POTASSIUM SERUM 4.6 MEQ/L (3.5-5.1); SODIUM LEVEL 140 MEQ/L (136-145); TOTAL PROTEIN 6.8 GM/DL (6.4-8.2); TRIGLYCERIDES LEVEL 163 MG/DL (<150)
== END ==
LOC: M PLALAB 15:15
PROVIDERS: ATTEND Nurse Practitioner Family
DX: I10 Essential (primary) hypertension (principal)

== ENCOUNTER → 2021-04-29 | Outpatient (CLI) | payer OTHER ==
--- NOTE | 2021-04-29 11:07 | REP ---
INDICATION: RIGHT ANKLE SPRAIN. COMPARISON: Comparison radiographs of the right ankle are from February 19, 2021.. TECHNIQUE: Axial, coronal, and sagittal imaging planes utilized. T1 and T2 weighted scans are included with and without fat saturation in the usual fashion. FINDINGS: Cortical and medullary bone signal intensity is normal in the distal fibula and distal tibia except for a very small zone of marrow edema in the medial malleolus. The tibial plafond and talar dome are intact. Signal intensity in the talus and calcaneus is normal on T2 weighted scans. There is no occult tarsal fracture. An os naviculare is noted. Intertarsal joints are normally aligned. There is no evidence to suggest tarsal coalition. Achilles tendon is unremarkable. Plantar fascia is smooth. There is no evidence of flexor or or extents or tendinopathy. There is heterogeneous increased signal intensity and thickening of the anterior talofibular ligament consistent with ligament injury. Posterior talofibular ligament appears intact. The anterior inferior tibiofibular ligament appears intact as does the posteroinferior tibiofibular ligament. There is no visible disruption of deltoid ligamentous complex components. The calcaneofibular ligament is not well seen and there is heterogeneous signal intensity in its expected location. This may be torn as well. There is moderate extra-articular soft tissue edema and some loculated heterogeneous fluid in the subcutaneous space anterolateral to the ankle. This is suggestive of hematoma or conceivably, complex ganglion cyst. This measures 2.5 cm craniocaudal by 3.8 cm medial to lateral by 1.7 cm in anteroposterior thickness. It appears to be superficial to the extensor tendons. There is a small ankle joint effusion. IMPRESSION: No occult fracture. Findings consistent with traumatic disruption of the anterior talofibular and possibly the calcaneofibular ligaments. There is moderate extra articular soft tissue edema and a complex fluid collection is seen anterolateral at the level of the ankle superficial to the extensor tendons. Hematoma versus complex ganglion cyst. <Electronically signed by Marquez Barragan > 04/29/21 4340
== END ==
LOC: M PLARAD 09:28
PROVIDERS: ATTEND Podiatrist Foot & Ankle Surgery
DX: S93.401A Sprain of unspecified ligament of right ankle, initial encounter (principal); M25.471 Effusion, right ankle; X58.XXXA Exposure to other specified factors, initial encounter; Y92.9 Unspecified place or not applicable

== ENCOUNTER → 2021-06-13 | Outpatient (CLI) | payer OTHER | LOC: M PAIN 10:45 | PROVIDERS: ATTEND Anesthesiology | DX: M51.16 Intervertebral disc disorders with radiculopathy, lumbar region (principal); F32.9 Major depressive disorder, single episode, unspecified; E78.5 Hyperlipidemia, unspecified; K21.9 Gastro-esophageal reflux disease without esophagitis; K22.70 Barrett's esophagus without dysplasia; E55.9 Vitamin D deficiency, unspecified; G47.33 Obstructive sleep apnea (adult) (pediatric); I25.10 Atherosclerotic heart disease of native coronary artery without angina pectoris; Z79.82 Long term (current) use of aspirin; Z79.899 Other long term (current) drug therapy; Z87.891 Personal history of nicotine dependence; Z88.5 Allergy status to narcotic agent; Z91.040 Latex allergy status; Z91.048 Other nonmedicinal substance allergy status ==

== ENCOUNTER 2021-07-02 13:22 | Emergency (ER) | payer OTHER, MEDICAID ==
[~2021-07-02] VITALS: Ht 172.7 cm; Wt 143.6 kg
--- NOTE | 2021-07-02 17:40 | REP ---
INDICATION: trauma. COMPARISON: None. TECHNIQUE: Five views of the left knee are provided FINDINGS: Five views of the left knee demonstrate mild articular spurring of the patella consistent with patellofemoral osteoarthritis. No fracture or subluxation is seen.. No opaque foreign body noted. No visible joint effusion. IMPRESSION: No fracture or subluxation seen. Patellar spurring. <Electronically signed by Marquez Barragan > 07/02/21 5571
[2021-07-02 18:27] VITALS: BP 125/74
== END 2021-07-02 18:30 | disposition home or self-care (01) ==
LOC: M ED 13:22
DX: S09.90XA Unspecified injury of head, initial encounter (principal); M23.92 Unspecified internal derangement of left knee; X58.XXXA Exposure to other specified factors, initial encounter; Y92.410 Unspecified street and highway as the place of occurrence of the external cause; Y93.9 Activity, unspecified; Y99.9 Unspecified external cause status; I10 Essential (primary) hypertension; E78.5 Hyperlipidemia, unspecified; E03.9 Hypothyroidism, unspecified; Z95.1 Presence of aortocoronary bypass graft; Z79.899 Other long term (current) drug therapy; Z91.89 Other specified personal risk factors, not elsewhere classified; Z91.040 Latex allergy status; Z88.5 Allergy status to narcotic agent

== ENCOUNTER 2021-08-01 20:06 | Emergency (ER) | payer OTHER, MEDICAID ==
[~2021-08-01] VITALS: Ht 172.7 cm; Wt 140.8 kg
[2021-08-01 20:07] VITALS: BP 132/79
== END 2021-08-02 03:56 | disposition left against medical advice (07) ==
LOC: M ED 20:06
DX: Z53.21 Procedure and treatment not carried out due to patient leaving prior to being seen by health care provider (principal)

== ENCOUNTER 2021-08-10 14:15 | Emergency (ER) | payer MEDICAID, OTHER ==
[~2021-08-10] VITALS: Ht 172.7 cm; Wt 140.8 kg
--- OUTSIDE RECORDS SUMMARY | 2021-08-10 14:24 | CCD | Continuity of Care Document ---
Author Author Rinku IRIZARRY DPM Organization Unknown Address [address] [place] [address], [address] [place] [address] Phone [phone] Care Team Providers Care Mold Injector Name Role Phone Bladimir Ramirez M.D. AUTM [phone] YAMILE Noe AUTM [phone] MD Gauri Salcedo AUTM [phone] [place] RENEE AUTM [phone] [facility] Problems Active Problems Provider Date Callosity Dylan Irizarry DPM Onset: 02/03/2021 Plantar fascial fibromatosis Dylan Irizarry DPM Onset: Pronation Dylan Irizarry DPM Onset: 02/26/2021 Sprain of ankle Dylan Irizarry DPM Onset: 04/18/2021 Social History Type Date Description Comments Sex Unknown ETOH Use Denies alcohol use Tobacco Use Start: Unknown End: Unknown Patient is a former smoker HX 29N YEARS SMOKING, QUITTING NOW USING nICOTENE PATCH Allergies and adverse reactions Description No Known Drug Allergies Medications Active Medications SIG Qnty Indications Ordering Provide r Date Prednisone 10mg Tablets prednisone taper: take 4 tabs for 5 days, 3 tabs for days 6 and 7, 2 tabs for days 8 and 9, and 1 tab days 10 and 11 32tabs Dylan Irizarry DPM 08/05/20 21 Diclofenac Sodium 1% Gel apply 1 gram to toe 2-3 times per day 100gm Dylan Irziarry DPM 12/07 Betamethasone Dipropionate 0.05% C ream apply to rash on foot two times a day 45gm Dylan Irizarry, YAMILE 11/06/2020 Naproxen 500mg Tablets 1 tab twice daily with food 60tabs Dylan Irizarry, [place] 11/21/2019 Ammonium Lactate 12% Cream apply to feet twice daily 280units Dylan Irizarry, [place] 11/16/2018 Indomethacin 50mg Capsules one tab by mouth 3 times daily 45caps Dylan Irizarry, YAMILE 017 Gabapentin 600mg Tablets Take One Tablet By Mouth Three Times Daily Unknown Escitalopram Oxalate 10mg Tablets Take One Tablet By Mouth Once Daily Unknown Mitigare 0.6mg Capsules Take One [...] Four Times Daily On Empty Stomach Unknown Clindamycin HCL 300mg Capsules Take One Capsule By Mouth Every 6 Hours as Directed Unkno wn Lexapro Unknown Risperidone M-Tab Unknown 000 Flomax [...] One Tablet By Mouth Twice Daily Unknown Oxycodone-Acetaminophen 5-325mg Ta blets Take One Tablet By Mouth Every 8 Hours as Needed For Pain Max Daily DO Unknown History Medications Prednisone 10mg Tablets prednisone taper: take 4 tabs for 5 days, 3 tabs for days 6 and 7, 2 tabs for days 8 and 9, and 1 tab days 10 and 11 32tabs Dylan Irizarry, [facility] 02/13/20 21 - 03/20/2021 Medications Administered in Office Medication SIG Qnty Indications Ordering Provider Date Inject Triamcinolone Acetonide 10 ML, ND C 4441-6682-17 Injection Dylan barnes, [facility] 06/04/2021 Inject Dexamthosone Phosphate 31754-050- 30 Injection Dylan Irizarry, [facility] 021 Inject Triamcinolone Acetonide 10 ML, ND C 0193-5308-66 Injection Dylan barnes, [facility] 02/26/2021 Inject Dexamthosone Phosphate 49160-640- 30 Injection Dylan Irizarry, [facility] 021 Inject Triamcinolone Acetonide 10 ML, ND C 8429-0632-41 Injection Dylan barnes, [facility] 01/25/2018 Inject Dexamthosone Phosphate 08074-595- 30 Injection Dylan Irizarry, [facility] 018 Inject Triamcinolone Acetonide 10 ML, ND C 0088-5440-33 Injection Dylan barnes, [facility] 03/13/2017 Inject Dexamthosone Phosphate 27578-838- 30 Injection Dylan Irizarry, [facility] 017 Inject Triamcinolone Acetonide 10 ML, ND C 1185-6937-13 Injection Dylan barnes, DP 02/06/2017 Inject Dexamthosone Phosphate 15376-674- 30 Injection Dylan Irizarry, DP 017 Inject Dexamthosone Phosphate 69246-279- 30 Injection Dylan Irizarry, [facility] 016 Inject Triamcinolone Acetonide 10 ML, ND C 9941-9610-55 Injection Hansel barnes, DPM 02/14/2015 Inject Dexamthosone Phosphate 66921-534- 30 Injection Hansel Henning Mannie, DPM 015 Inject Triamcinolone Acetonide 10 ML, ND C 2484-3172-13 Injection Hansel Hoffmann cameron, DPM 07/03/2014 Inject Dexamthosone Phosphate 64837-752- 30 Injection Hansel Henning Mannie, DPM 014 Inject Triamcinolone Acetonide 10 ML, ND C 1773-1128-45 Injection Hansel barnes, DPM 06/08/2014 Inject Dexamthosone Phosphate 68275-062- 30 Injection Hansel Iriazrry, DPM 014 Immunizations Description No Information Available Vital [...] BMI (Body Mass Index) 48.2 kg/m2 Results Description No Information Available Procedures Date Code Description Status 07/02/2021 99074 Office/Outpatient Established SF MDM 10-19 Min Completed 06/04/2021 70938 Office/Outpatient Established SF MDM 10-19 Min Completed 06/04/2021 58587 Inject Tendon/Ligament/Cyst Comp leted 05/02/2021 85228 Office/Outpatient Established Lo w MDM 20-29 Min Completed 04/18/2021 40271 Office/Outpatient Established SF MDM 10-19 Min Completed 03/20/2021 62471 Office/Outpatient Established SF MDM 10-19 Min Completed 03/20/2021 11958 X-Ray Foot Complete Completed 03/12/2021 99486 Office/Outpatient Established SF MDM 10-19 Min Completed 02/26/2021 05463 Office/Outpatient Established SF MDM 10-19 Min Completed 02/26/2021 22448 Inject Tendon/Ligament/Cyst Comp leted 02/12/2021 61655 Office/Outpatient Established SF MDM 10-19 Min Completed 02/12/2021 24919 Strapping Foot Or Ankle Complete d Medical Devices Description No Information Available Encounters Type Date Location Provider Dx Diagnosis Office Visit 07/02/2021 10:45a [place] Dylan Irizarry DPM M67.00 Short Achilles tendon (acquired), unspecified ankle M65.879 Other synovitis and tenosyno vitis, unsp ankle and foot Office Visit 06/04/2021 11:00a [facility] Dylan Irizarry DPM M65.871 Other synovitis and tenosynovitis, right ankle and foot Office Visit 05/02/2021 10:30a [facility] Dylan Irizarry DPM S93.401D Sprain of unspecified ligament of right ankle, subs encntr M21.6x1 Other acquired deformities o f right foot Office Visit 04/18/2021 11:15a [place] Dylan Irizarry DPM S93.401D Sprain of unspecified ligament of right ankle, subs encntr Office Visit 03/20/2021 1:00p [facility] Dylan Irizarry DPM S93.401D Sprain of unspecified ligament of right ankle, subs encntr M65.871 Other synovitis and tenosyno vitis, right ankle and foot Office Visit 03/12/2021 10:30a [place] Dylan Irizarry DPM S93.401D Sprain of unspecified ligament of right ankle, subs encntr M65.871 Other synovitis and tenosyno vitis, right ankle and foot Office Visit 02/26/2021 10:30a [facility] Dylan Irizarry DPM S93.402D Sprain of unspecified ligament of left ankle, subs encntr M65.872 Other synovitis and tenosyno vitis, left ankle and foot Office Visit 02/12/2021 11:00a [facility] Dylan Irizarry DPM M72.2 Plantar fascial fibromatosis M21.6x1 Other acquired deformities o f right foot Assessments Date Code Description Provider 07/02/2021 M67.00 Short Achilles tendon (acquired) , unspecified ankle Dylan Irizarry DPM 07/02/2021 M65.879 Other synovitis and tenosynovitis, unspecified ankle and foot Dylan Irizarry, DPM 06/04/2021 M65.871 Other synovitis and tenosynoviti s, right ankle and foot Dylan Irizarry, DPM 05/02/2021 S93.401D Sprain of unspecifie d ligament of right ankle, subsequent encounter Dylan Irizarry, [place] 05/02/2021 M21.6x1 Other acquired deformities of ri ght foot Dylan Irizarry, DPM 04/18/2021 S93.401D Sprain of unspecifie d ligament of right ankle, subsequent encounter Dylan Irizarry, [place] 03/20/2021 S93.401D Sprain of unspecifie d ligament of right ankle, subsequent encounter Dylan Irizarry, DPM 03/20/2021 M65.871 Other synovitis and tenosynoviti s, right ankle and foot Dylan Irizarry, DPM 03/12/2021 S93.401D Sprain of unspecifie d ligament of right ankle, subsequent encounter Dylan Irizarry, DPM 03/12/2021 M65.871 Other synovitis and tenosynoviti s, right ankle and foot Dylan Irizarry, DPM 02/26/2021 S93.402D Sprain of unspecifie d ligament of left ankle, subsequent encounter Dylan Irizarry, DPM 02/26/2021 M65.872 Other synovitis and tenosynoviti s, left ankle and foot Dylan Irizarry, YAMILE 02/12/2021 M72.2 Plantar fascial fibromatosis And junior Irizarry, DPM 02/12/2021 M21.6x1 Other acquired deformities of ri ght foot Dylan Irizarry DPM Plan of Treatment Future Appointment(s):* 09/10/2021 10:45 am - Dylan Irizarry DPM at [place] [facility] Functional Status Description No Information Available Mental Status Description No Information Available Referrals Refer to Dr Reason for Referral Status Appt Date Dylan Irizarry DPM Created [address] [address] [phone]
--- OUTSIDE RECORDS SUMMARY | 2021-08-10 14:24 | CCD ---
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 Active confirmed 66661 01 Problem Disc displacement, 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 Active confirmed 378294640137229 Problem Seborrheic keratoses L82.1 Active confirmed 838486038 Problem Sebaceous hyperplasia L73.8 Active confirmed 069727722 Problem Spondylosis without myelopathy or radiculopathy, lumbosacral region M47.817 Active confirmed 44309609 Problem Depression F32.9 Active confirmed 10090850 Problem Bilateral serous otitis media, unspecified chronicity H65.93 Active confirmed 82327644 Problem Allergic rhinitis J30.9 Active confirmed 61 915261 Problem Essential hypertension I10 Active confirmed 71150836 Problem Coronary artery disease invo lving ione coronary artery of ione heart, angina presence unspecified I25.10 Active confirmed 8879374132744 Problem Stage 3 chronic kidney disease N18.3 Active confir med 720725768 Problem Celiac disease K90.0 Active confirmed 34633 1005 Problem Obstructive sleep apnea on CPAP G47.33 Active confi rmed 73987702 Problem CKD (chronic kidney disease), stage III N18.3 Active confirmed 704448143 Problem Hyperlipidemia E78.5 Active confirmed 97709 004 Problem Hypothyroidism, unspecified type E03.9 Active conf irmed 91198510 Problem Dysfunction of both eustachian tubes H69.83 Act forrest confirmed 68386189 Problem Gastroesophageal reflux disease with esophagitis K 21.0 Active confirmed 067827331 Problem Carpal tunnel syndrome of right wrist G56.01 Ac tive confirmed 51142674 Problem Granuloma annulare L92.0 Active confirmed 6 7781796 Problem Wound of right buttock, initial encounter S31.819A Active confirmed 936565338 Problem Sacroiliitis M46.1 Active confirmed 8692356 9 Problem Unspecified open wound of right buttock, subsequ ent encounter S31.819D Active confirmed 59577186270831845 Problem Arthritis of lumbosacral spine M47.817 Active confi rmed 915405564 Problem 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 Active confirmed 164104641 Problem Allergic contact dermatitis, unspecified trigger L 23.9 Active confirmed 216913115 Problem Melanocytic nevi of trunk D22.5 Active confirmed 278124040 Problem Spondylosis of lumbar region without myelopathy or radiculopathy M47.816 Active confirmed 945729799 Problem Inflammation of both ear canals H60.93 Active confi rmed 7698845 Problem Other chronic pain G89.29 Active confirmed 8 1101396 Problem Other hammer toe(s) (acquired), right foot M20.41 Active confirmed 46817265 Problem Liver cyst K76.89 Active confirmed 03643391 ALLERGIES Allergen (clinical drug ingredient) Drug/Non Drug Allergy do cumented on EMR Reaction Allergy Type Onset Date Status Latex Latex Rash Drug Allergy Active Gluten Gluten Rash Drug Allergy Active Adhesive Tape rash Drug Allergy Active Codeine Phosphate (For Allergies Use Only) Nausea/Vomiting Drug Allergy Active ENCOUNTERS from 1967 to 2021-07-30 Encounter Location Date Provider Diagnosis [address] [phone] [place] [address] Jul, Lolis Choudhary IMMUNIZATIONS Vaccine Route Administration Date Status COVID-19 dose #1 given elsewhere Unspecified Unknown Mar 2020 Administered COVID-19 dose #2 given elsewhere Unspecified Unknown Apr 2020 Administered Influenza 18 yrs & older Flublok IM Intramuscular Jul 27, 2019 Administered Influenza 18 yrs & older Flublok IM Intramuscular Jun 29, 2020 Administered Influenza 18 yrs & older Flublok Unknown Nov 20, 2020 Administered Influenza 6mo & up Fluzone IM Intramuscular Aug 16, 2013 Admi nistered Influenza 18 yrs & older Flublok IM Intramuscular Jul 08, 2018 Administered Zoster 50mcg/0.5mL Shingrix Unknown December 21, 2018 Admi nistered Pneumococcal Adult 0.5mL Pneumovax 23 IM Intramuscular Jul 27 019 Administered Influenza 6mo & up Fluzone IM Intramuscular Jul 16, 2017 Admi nistered Influenza 6mo & up Fluzone Unknown Jul 22, 2016 Admin istered Influenza 6mo & up Fluzone Unknown December 31, 2015 Refus ed Influenza 6mo & up Fluzone Unknown Nov 29, 2015 Refus ed Influenza 6mo & up Fluzone IM Intramuscular Jun 28, 2014 Admi nistered SOCIAL HISTORY Tobacco Use: Social History Observation Description Date Details (start date - stop date) Former Smoker Sex Assigned At : Social History Observation Description Sex Assigned At Unknown Audit Question Answer Notes Total Score: 0 Interpretation: Alcohol Education Language: Question Answer Notes Languages spoken: Romanian Confucianism: Question Answer Notes Confucianism 21 Zoroastrianism No yazdanism beliefs that would impact health care. Drug [...] Notes Start Da te End Date Status Omeprazole 40 MG TAKE ONE CAPSULE BY MOUTH @8AM ON AN EMPTY STOMACH O ral Active Levothyroxine Sodium 25 MCG TAKE ONE TABLET BY MOUTH @8AM for 28 Active MiraLax 17 GM/SCOOP 17gm scoop mixed with water Orally Once a day as needed for 30 Days Mar, Active Montelukast Sodium 10 MG TAKE ONE TABLET BY MOUTH @5PM for 28 Active traMADol HCl 50 MG 1 tablet as needed Orally q6h prn mdd4 for 30 Days Sep, Active Cetirizine HCl 10 MG TAKE ONE TABLET BY MOUTH @5PM for 28 Active Fluticasone Propionate 50 MCG/ACT instill ONE SPRAY IN EACH NOSTRIL TWICE DAILY NEEDED for 30 Active hydrOXYzine HCl 25 MG 1 tablet 30 at bedtime for 30 day(s) Jul, Active Metoprolol Tartrate 25 mg 1/2 tab Oral Daily Active Atorvastatin Calcium 40 MG Take 1 tablet By Mouth once a day for 90 Active Aspirin 81 MG 1 tablet Orally Once a day Aug, Active Docusate Sodium 100 MG TAKE ONE CAPSULE BY MOUTH @8AM for 28 Active tiZANidine HCl 4 MG 1 tablet as needed Orally Th ree times a day NEEDED FOR SEVERE PAIN for 30 Days Active Ventolin HFA 108 (90 Base) MCG/ACT INHALE TWO PUFFS BY MOUTH EVERY FOUR HOURS NEEDED Inhalation - for 30 days 2 days ago Active Trihexyphenidyl HCl 2 MG TAKE ONE TABLET BY MOUTH TWICE DAILY Orally bid Active Zpfzrgnm-Bzopmpjut-CF 3.5-32143-4 4 drops into affecte d ear Otic Three times a day for 7 day(s) Mar, Active Topiramate 50 MG with a 25 mg tab for total of 75 mgs Orally @ 1700 Active Mcbrides Saline Nasal - USE DIRECTED DAILY FOUR TIMES DAILY NEEDED for 20 Active Multivitamin Adult - as directed Orally Dec, Active Vitamin D 1000 UNIT 2 tablets with meal Orally Once a day for 90 day(s) Dec, Active Ondansetron HCl 8 MG 1 tablet as needed Orally th ree times daily only as needed for nausea or vomiting for 10 day(s) May, Active Triamcinolone Acetonide 0.1 % 1 application Externally Twice a day to dorsal hands for 14 days May, Active busPIRone HCl 10 MG TAKE ONE TABLET BY MOUTH @8A M and TAKE ONE TABLET @8PM Oral for 28 Active Escitalopram Oxalate 10 MG 1 tablet Oral Once a day along with a 20 mg tablet Active Famotidine 20 MG TAKE ONE TABLET BY MOUTH @8A M and TAKE ONE TABLET BY MOUTH @8PM Oral for 28 Active Gabapentin 600 MG TAKE ONE TABLET BY MOUTH @8A M and TAKE ONE TABLET @12PM and TAKE ONE TABLET @8PM Oral q8h TID for 30 Days Active PROCEDURES No Information RESULTS No Results REASON FOR VISIT [facility] Referral Ortho MEDICAL (GENERAL) HISTORY Type Description Date Medical History Depression/Anxiety- Dr Enriquez. /therapist Q2 weeks Medical History Hyperlipidemia Medical History GERD with Barretts: Repeat EGD in 8 Medical History vitamin d def Medical History FRAN: following with Pulmonol ogy: compliant with CPAP-pulmonology Medical History CAD: Bypass with autologous vein: Dr. Shelley munguia at [facility] Medical History ECHO 10/17/2016. Hypertensive heart disea [...] bile duct stricture Medical History HIDA Scan-unremarkable 2018, normal GB and EF, hypertonic sphincter of [...] History carpal tunnel Medical History HAMMER TOES Medical History Frature thumb-left Medical History one since the last visit on 02/05/2021 did not go the ER, Went to see his foot doctor , the right leg is now swollen, will be getting and MRI. Surgical History left hand, 5th digit, removed tumor 1979 & 2016 Surgical History tonsillectomy child Surgical History Colonoscopy- internal hemorrhoid, polyp x 1- adenomatous 02/02/15 Surgical History Colonoscopy - 2 tubular stephen omas, mucosal ulceration, moderate diverticulosis in the sigmoid colon, external hemorrhoids. Repeat colonoscopy 5 yrs 10/13/17 Surgical History EGD- Lg HH 02/02/15 Surgical History hemorrhoidectomy 4-- Surgical History left foot bunionectomy with first metatarsal osteostomy-Dr. Chand 03/31/16 Surgical History CABG- 4 vessel at [place] 11/11/16 Surgical History Left hand CP sx, and tendon removal. Bone and joint center [facility] 01/2018 Surgical History Upper Endoscopic Ultrasound with [...] removal with bone filing - [facility] 07/2020 Surgical History Right Ulnar Nerve 01/2020 Surgical History Left knee diagnostic arthroscopy-Dr. Merrill 03/07/2021 Hospitalization History [facility]- Depression/A nxiety 14 yo Hospitalization History [facility] [place]- depre ssion 18 yo Hospitalization History Father Verenice- Janki- ezequiel d facilty- tx of depression. [age]yo Hospitalization History Hemorrhoidectomy with remova l of a mixed hemorrhoidal bundles at the left lateral and right anterior and posterior positions. 01/11/2016 Hospitalization History CABG: [facility] 11/11/16 Hospitalization History Rehab [facility] 11/21 Hospitalization History POST RIGHT HAND HAND AND ELBOW SURGE RY 10/2019 Hospitalization History [facility] ED- Post-op problem, left foot c ellulitis 08/03/2020 Hospitalization History Right Ulnar Nerve 01/2020 Hospitalization History [facility] ED-AMA 01/21/2021 Hospitalization History [facility] ED-Right shoulder injury 021 Hospitalization History [facility] ED-Right foot pain 02/05/2021 Hospitalization History [facility] ED-Right ankle pain 02/19/2021 Hospitalization History [facility] ED-Right foot pain 02/22/2021 Hospitalization History [facility] ileus, small bowel obstruction Hospitalization History [facility] - partial small bowel obstructio n 03/09/21 Hospitalization History [facility] - atypical chest pains 03/2021 Goals Section No Information Health Concerns No Information MEDICAL EQUIPMENT No Information MENTAL STATUS No Information FUNCTIONAL STATUS No Information ASSESSMENTS No Information PLAN OF TREATMENT Medication Medication Name Sig Start Date Stop Date hydrOXYzine HCl 25 MG 1 tablet 30 at bedtime for 30 day(s) 18 Oc t, 2020 Next Appt Details Provider Name:García Reganvo, 2021-08-02 10:00:00 AM, [address], , [place], [address], Provider Name:Lolis Choudhary, 2021-08-08 10:3 0:00 AM, [address] [facility], , [place], [address], Provider Name:Debbie Thomson, 2021-09-04 01:15:00 PM, [address] [facility], , [place], [address], Insurance Providers Payer Name Payer Address Payer Phone Insured Name Patient Relati onship to Insured Coverage Start Date Coverage End Date [employer] [address] [facility] [phone] DEANNA AN self
--- OUTSIDE RECORDS SUMMARY | 2021-08-10 14:24 | CCD ---
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 Active confirmed 65385 01 Problem Disc displacement, 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 Active confirmed 076525128517780 Problem Seborrheic keratoses L82.1 Active confirmed 294126429 Problem Sebaceous hyperplasia L73.8 Active confirmed 720060382 Problem Spondylosis without myelopathy or radiculopathy, lumbosacral region M47.817 Active confirmed 61180879 Problem Depression F32.9 Active confirmed 07043262 Problem Bilateral serous otitis media, unspecified chronicity H65.93 Active confirmed 00450044 Problem Allergic rhinitis J30.9 Active confirmed 61 757782 Problem Essential hypertension I10 Active confirmed 14529353 Problem Coronary artery disease invo lving [place] coronary artery of [place] heart, angina presence unspecified I25.10 Active confirmed 2815005073657 Problem Stage 3 chronic kidney disease N18.3 Active confir med 339332121 Problem Celiac disease K90.0 Active confirmed 95987 1005 Problem Obstructive sleep apnea on CPAP G47.33 Active confi rmed 50089701 Problem CKD (chronic kidney disease), stage III N18.3 Active confirmed 838269506 Problem Hyperlipidemia E78.5 Active confirmed 52004 004 Problem Hypothyroidism, unspecified type E03.9 Active conf irmed 20345382 Problem Dysfunction of both eustachian tubes H69.83 Act forrest confirmed 73927789 Problem Gastroesophageal reflux disease with esophagitis K 21.0 Active confirmed 054404016 Problem Carpal tunnel syndrome of right wrist G56.01 Ac tive confirmed 16656414 Problem Granuloma annulare L92.0 Active confirmed 6 5883632 Problem Wound of right buttock, initial encounter S31.819A Active confirmed 904617627 Problem Sacroiliitis M46.1 Active confirmed 6842050 9 Problem Unspecified open wound of right buttock, subsequ ent encounter S31.819D Active confirmed 00136988094539785 Problem Arthritis of lumbosacral spine M47.817 Active confi rmed 915182581 Problem 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 Active confirmed 036779147 Problem Allergic contact dermatitis, unspecified trigger L 23.9 Active confirmed 691753971 Problem Melanocytic nevi of trunk D22.5 Active confirmed 980912461 Problem Spondylosis of lumbar region without myelopathy or radiculopathy M47.816 Active confirmed 972823126 Problem Inflammation of both ear canals H60.93 Active confi rmed 6596413 Problem Other chronic pain G89.29 Active confirmed 8 6105403 Problem Other hammer toe(s) (acquired), right foot M20.41 Active confirmed 18118139 Problem Liver cyst K76.89 Active confirmed 49522298 ALLERGIES Allergen (clinical drug ingredient) Drug/Non Drug Allergy do cumented on EMR Reaction Allergy Type Onset Date Status Latex Latex Rash Drug Allergy Active Gluten Gluten Rash Drug Allergy Active Adhesive Tape rash Drug Allergy Active Codeine Phosphate (For Allergies Use Only) Nausea/Vomiting Drug Allergy Active ENCOUNTERS from 1967 to 2021-08-07 Encounter Location Date Provider Diagnosis [address] [phone] [place] [address] Jun, Lolis hCoudhary IMMUNIZATIONS Vaccine Route Administration Date Status Influenza 6mo & up Fluzone IM Intramuscular Jul 16, 2017 Admi nistered Influenza 18 yrs & older Flublok IM Intramuscular Jul 08, 2018 Administered COVID-19 dose #2 given elsewhere Unspecified Unknown Apr 2020 Administered Pneumococcal Adult 0.5mL Pneumovax 23 IM Intramuscular Jul 27 019 Administered Zoster 50mcg/0.5mL Shingrix Unknown December 21, 2018 Admi nistered Influenza 6mo & up Fluzone IM Intramuscular Aug 16, 2013 Admi nistered COVID-19 dose #1 given elsewhere Unspecified Unknown Dec Administered Influenza 18 yrs & older Flublok Unknown Nov 20, 2020 Administered Influenza 18 yrs & older Flublok IM Intramuscular Jun 29, 2020 Administered Influenza 18 yrs & older Flublok IM Intramuscular Jul 27, 2019 Administered Influenza 6mo & up Fluzone Unknown Jul [...] Education Language: Question Answer Notes Languages spoken: Bulgarian Congregation: Question Answer Notes Congregation 21 Protestant No christian beliefs that would impact health care. Drug [...] BY MOUTH TWICE DAILY Orally bid Active Pntxoumm-Ilytlqhnv-AH 3.5-51439-5 4 drops into affecte d ear Otic Three times a day for 7 day(s) Mar, Active Topiramate 50 MG with a 25 mg tab for total of 75 mgs Orally @ 1700 Active [place] Saline Nasal - USE DIRECTED DAILY FOUR [...] Information RESULTS No Results REASON FOR VISIT discharge? MEDICAL (GENERAL) HISTORY Type Description Date Medical History Depression/Anxiety- Dr Enriquez. /therapist Q2 weeks Medical History Hyperlipidemia Medical History GERD with Barretts: Repeat EGD in 8 Medical History vitamin d def Medical History FRAN: following with Pulmonol ogy: compliant with CPAP-pulmonology Medical History CAD: Bypass with autologous vein: Dr. Shelley munguia at [facility] Medical History ECHO 10/17/2016. Hypertensive [...] 03/31/16 Surgical History CABG- 4 vessel at [place] 11/11/16 Surgical History Left hand CP sx, and tendon removal. Bone and joint center [facility] 01/2018 Surgical History Upper Endoscopic Ultrasound with Anesthe penelope 07/2018 Surgical History Wires removed from chest 09/29/2018 Surgical History Hammer toe, Left foot, Dr. Chand 03/30/19 Surgical History EGD-Dr. uDron 01/2019 Surgical History HammerToe 03/2019 Surgical History [...] knee diagnostic arthroscopy-Dr. Merrill 03/07/2021 Hospitalization History [facility]- Depression/A nxiety 14 yo Hospitalization History [facility]- [place]- depre ssion 18 yo Hospitalization History Father Verenice- Janki- ezequiel d facilty- tx of depression. 16-18yo Hospitalization History Hemorrhoidectomy with remova l of a mixed hemorrhoidal bundles at the left lateral and right anterior and posterior positions. 01/11/2016 Hospitalization History CABG: [facility] 11/11/16 Hospitalization History Rehab [facility] 11/21 Hospitalization History POST RIGHT HAND HAND AND ELBOW SURGE RY 10/2019 Hospitalization History [facility] ED- Post-op problem, left foot c ellulitis 08/03/2020 Hospitalization History Right Ulnar Nerve 01/2020 Hospitalization History [facility] ED-AMA 01/21/2021 Hospitalization History [facility] ED-Right shoulder injury 021 Hospitalization History [facility] ED-Right foot pain 02/05/2021 Hospitalization History [facility] ED-Right ankle pain 02/19/2021 Hospitalization History [facility] ED-Right foot pain 02/22/2021 Hospitalization History [facility] ileus, small bowel obstruction Hospitalization History [facility] - partial small bowel obstructio n [...] Oc t, 2020 Next Appt Details Provider Name:Debbie Thomson, 2021-09-04 01:15:00 PM, [address] [facility], , [place], [place], [facility] [phone] Provider Name:Gauri Salcedo, 2022-02-06 09:00:00 AM, [address] [facility], , [place], [address], Insurance Providers Payer Name Payer Address Payer Phone Insured Name Patient Relati onship to Insured Coverage Start Date Coverage End Date [facility] [address] [facility] [phone] DEANNA AN self
--- OUTSIDE RECORDS SUMMARY | 2021-08-10 14:25 | CCD ---
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 Active confirmed 44541 01 Problem Disc displacement, 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 Active confirmed 222540664753555 Problem Seborrheic keratoses L82.1 Active confirmed 268463326 Problem Sebaceous hyperplasia L73.8 Active confirmed 215990238 Problem Spondylosis without myelopathy or radiculopathy, lumbosacral region M47.817 Active confirmed 20867243 Problem Depression F32.9 Active confirmed 00013908 Problem Bilateral serous otitis media, unspecified chronicity H65.93 Active confirmed 29858219 Problem Allergic rhinitis J30.9 Active confirmed 61 733625 Problem Essential hypertension I10 Active confirmed 74391469 Problem Coronary artery disease invo lving [place] coronary artery of [place] heart, angina presence unspecified I25.10 Active confirmed 2444126680740 Problem Stage 3 chronic kidney disease N18.3 Active confir med 597843699 Problem Celiac disease K90.0 Active confirmed 28848 1005 Problem Obstructive sleep apnea on CPAP G47.33 Active confi rmed 49613268 Problem CKD (chronic kidney disease), stage III N18.3 Active confirmed 800567496 Problem Hyperlipidemia E78.5 Active confirmed 50707 004 Problem Hypothyroidism, unspecified type E03.9 Active conf irmed 82201344 Problem Dysfunction of both eustachian tubes H69.83 Act forrest confirmed 89373025 Problem Gastroesophageal reflux disease with esophagitis K 21.0 Active confirmed 094789858 Problem Carpal tunnel syndrome of right wrist G56.01 Ac tive confirmed 47258377 Problem Granuloma annulare L92.0 Active confirmed 6 2464953 Problem Wound of right buttock, initial encounter S31.819A Active confirmed 533456931 Problem Sacroiliitis M46.1 Active confirmed 4276838 9 Problem Unspecified open wound of right buttock, subsequ ent encounter S31.819D Active confirmed 33177081701146885 Problem Arthritis of lumbosacral spine M47.817 Active confi rmed 122977737 Problem 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 Active confirmed 175046556 Problem Allergic contact dermatitis, unspecified trigger L 23.9 Active confirmed 755433618 Problem Melanocytic nevi of trunk D22.5 Active confirmed 192361025 Problem Spondylosis of lumbar region without myelopathy or radiculopathy M47.816 Active confirmed 902559639 Problem Inflammation of both ear canals H60.93 Active confi rmed 7515650 Problem Other chronic pain G89.29 Active confirmed 8 9879495 Problem Other hammer toe(s) (acquired), right foot M20.41 Active confirmed 96412640 Problem Liver cyst K76.89 Active confirmed 25343575 ALLERGIES Allergen (clinical drug ingredient) Drug/Non Drug Allergy do cumented on EMR Reaction Allergy Type Onset Date Status Latex Latex Rash Drug Allergy Active Gluten Gluten Rash Drug Allergy Active Adhesive Tape rash Drug Allergy Active Codeine Phosphate (For Allergies Use Only) Nausea/Vomiting Drug Allergy Active ENCOUNTERS from 1967 to 2021-07-30 Encounter Location Date Provider Diagnosis [facility] [address] Floor [phone] [place] [address] Jul, García Helm IMMUNIZATIONS Vaccine Route Administration Date Status Zoster 50mcg/0.5mL Shingrix Unknown December 21, 2018 Admi nistered Influenza 18 yrs & older Flublok IM Intramuscular Jul 08, 2018 Administered COVID-19 dose #1 given elsewhere Unspecified Unknown Dec Administered COVID-19 dose #2 given elsewhere Unspecified Unknown Jan Administered Pneumococcal Adult 0.5mL Pneumovax 23 IM Intramuscular Jul 27 019 Administered Influenza 6mo & up Fluzone IM Intramuscular Aug 16, 2013 Admi nistered Influenza 18 yrs & older Flublok Unknown Nov 20, 2020 Administered Influenza 18 yrs & older Flublok IM Intramuscular Jun 29, 2020 Administered Influenza 18 yrs & older Flublok IM Intramuscular Jul 27, 2019 Administered Influenza 6mo & up Fluzone IM [...] Education Language: Question Answer Notes Languages spoken: Upper Sorbian Yazdanism: Question Answer Notes Yazdanism 21 Buddhism No christian beliefs that would impact health [...] BY MOUTH TWICE DAILY Orally bid Active Tnyqmpsb-Vdqusobuc-QT 3.5-31218-5 4 drops into affecte d ear Otic Three times a day for 7 day(s) Mar, Active Topiramate 50 MG with a 25 mg tab for total of 75 mgs Orally @ 1700 Active [place] Saline Nasal - USE DIRECTED DAILY FOUR [...] Information RESULTS No Results REASON FOR VISIT NUMBNESS/TINGLING IN LEG MEDICAL (GENERAL) HISTORY Type Description Date Medical History Depression/Anxiety- Dr Enriquez. /therapist Q2 weeks Medical History Hyperlipidemia Medical History GERD with Barretts: Repeat EGD in Medical History vitamin d def Medical History FRAN: following with Pulmonol ogy: compliant with CPAP-pulmonology Medical History CAD: Bypass with autologous vein: Dr. Shelley munguia at [facility] Medical History ECHO 10/17/2016. Hypertensive heart [...] 03/31/16 Surgical History CABG- 4 vessel at [place] 11/11/16 Surgical History Left hand CP sx, and tendon removal. [facility] 01/2018 Surgical History Upper Endoscopic Ultrasound with [...] knee diagnostic arthroscopy-Dr. Merrill 03/07/2021 Hospitalization History [facility] [place]- Depression/A nxiety 14 yo Hospitalization History [facility] [place]- depre ssion 18 yo Hospitalization History Father Kel [facility] facilty- tx of depression. [age]yo Hospitalization History Hemorrhoidectomy with remova l of a mixed hemorrhoidal bundles at the left lateral and right anterior and posterior positions. 01/11/2016 Hospitalization History CABG: [facility] 11/11/16 Hospitalization History Rehab [facility] 11/21 Hospitalization History POST RIGHT HAND HAND AND ELBOW SURGE RY 10/2019 Hospitalization History [facility] ED- Post-op problem, left foot c ellulitis 08/03/2020 Hospitalization History Right Ulnar Nerve 01/2020 Hospitalization History [facility] ED-AMA 01/21/2021 Hospitalization History [facility] ED-Right shoulder injury 021 Hospitalization History [facility] ED-Right foot pain 02/05/2021 Hospitalization History [facility] ED-Right ankle pain 02/19/2021 Hospitalization History [facility] ED-Right foot pain 02/22/2021 Hospitalization History [facility] ileus, small bowel obstruction Hospitalization History [facility] - partial small bowel obstructio n 03/09/21 [...] t, 2020 Next Appt Details Provider Name:García Helm, 2021-08-02 10:00:00 AM, [address], , [place], [address], Provider Name:Lolis Choudhary, 2021-08-08 10:3 0:00 AM, [address] [facility], , [place], [address], Provider Name:Debbie Thomson, 2021-09-04 01:15:00 PM, [address] [facility], , [place], [address], Insurance Providers Payer Name Payer Address Payer Phone Insured Name Patient Relati onship to Insured Coverage Start Date Coverage End Date [facility] [address] [facility] [phone] DEANNA AN self
--- OUTSIDE RECORDS SUMMARY | 2021-08-10 14:25 | CCD | Continuity of Care Document ---
Author Author Rinku IRIZARRY DPM Organization Unknown Address [address] [place] [address], [address] [place] [address] Phone [phone] Care Team Providers Care State [employer] Agent Name Role Phone Ashley Cano, Bladimir AUTM [phone] YAMILE Noe AUTM [phone] [place] THELMA, Lolis AUTM [phone] [facility] Problems Active Problems Provider Date [...] SIG Qnty Indications Ordering Provide r Date Diclofenac Sodium 1% Gel apply 1 gram to toe 2-3 times per day 100gm Dylan Irizarry DPM 12/07 Betamethasone Dipropionate 0.05% C ream apply to rash on foot two times a day 45gm Dylan Irizarry DPM 11/06/2020 Naproxen 500mg Tablets 1 tab twice daily with food 60tabs Dylan Irizarry DPM 11/21/2019 Ammonium Lactate 12% Cream apply to feet twice daily 280units Dylan Irizarry, DPM 11/16/2018 Indomethacin 50mg Capsules one tab by mouth 3 times daily 45caps Dylan Irizarry, [place] 017 Gabapentin 600mg Tablets Take One Tablet By Mouth Three Times Daily Unknown Buspirone HCL 10mg Tablets Take One Tablet By Mouth Twice Daily Unknown Mitigare 0.6mg Capsules Take One [...] One Tablet By Mouth Once Daily Unknown Oxycodone-Acetaminophen 5-325mg Ta blets Take One Tablet By Mouth Every 8 Hours as Needed For Pain Max Daily DO Unknown History Medications Prednisone 10mg Tablets prednisone taper: take 4 tabs for 5 days, 3 tabs for days 6 and 7, 2 tabs for days 8 and 9, and 1 tab days 10 and 11 32tabs Dylan Irizarry, [facility] 02/13/20 21 - 03/20/2021 Clotrimazole/Betamethasone Dipropionate 1-0.05% Cream apply to affected area of foot twice daily. 45gm Dylan Irizarry, [facility] 12/31/2020 - 03/20/2021 Medications Administered in Office Medication SIG Qnty Indications Ordering Provider Date Inject Triamcinolone Acetonide 10 ML, ND C 1265-5008-28 Injection Dylan barnes, [facility] 06/04/2021 Inject Dexamthosone Phosphate 88727-812- 30 Injection Dylan Irizarry, [facility] 021 Inject Triamcinolone Acetonide 10 ML, ND C 8429-5079-28 Injection Dylan barnes, [facility] 02/26/2021 Inject Dexamthosone Phosphate 29706-007- 30 Injection Dylan Irizarry, [facility] 021 Inject Triamcinolone Acetonide 10 ML, ND C 5970-8193-92 Injection Dylan barnes, DP 01/25/2018 Inject Dexamthosone Phosphate 88889-383- 30 Injection Dylan Irizarry, DP 018 Inject Triamcinolone Acetonide 10 ML, ND C 1071-6489-02 Injection Dylan barnes, [facility] 03/13/2017 Inject Dexamthosone Phosphate 10715-536- 30 Injection Dylan Irizarry, DP 017 Inject Triamcinolone Acetonide 10 ML, ND C 8632-5548-70 Injection Dylan barnes, DP 02/06/2017 Inject Dexamthosone Phosphate 98008-890- 30 Injection Dylan Irizarry, DP 017 Inject Dexamthosone Phosphate 73765-109- 30 Injection Dylan Irizarry, [facility] 016 Inject Triamcinolone Acetonide 10 ML, ND C 0259-6384-16 Injection Hansel barnes, DP 02/14/2015 Inject Dexamthosone Phosphate 19572-615- 30 Injection Hansel Irizarry, DPM 015 Inject Triamcinolone Acetonide 10 ML, ND C 6586-9044-60 Injection Hansel HCristina barnes, DPM 07/03/2014 Inject Dexamthosone Phosphate 01748-429- 30 Injection Hansel GelyCristina Irizarry, DPM 014 Inject Triamcinolone Acetonide 10 ML, ND C 0674-0939-17 Injection Hansel GelyCristina barnes, DPM 06/08/2014 Inject Dexamthosone Phosphate 70107-192- 30 Injection Hansel GelyCristina Irizarry, DPM 014 Immunizations Description No Information Available [...] Information Available Procedures Date Code Description Status 06/04/2021 55526 Office/Outpatient Established SF MDM 10-19 Min Completed 06/04/2021 48599 Inject Tendon/Ligament/Cyst Comp leted 05/02/2021 38249 Office/Outpatient Established Lo w MDM 20-29 Min Completed 04/18/2021 35525 Office/Outpatient Established SF MDM 10-19 Min Completed 03/20/2021 86207 Office/Outpatient Established SF MDM 10-19 Min Completed 03/20/2021 28950 X-Ray Foot Complete Completed 03/12/2021 71994 Office/Outpatient Established SF MDM 10-19 Min Completed 02/26/2021 43321 Office/Outpatient Established SF MDM 10-19 Min Completed 02/26/2021 45027 Inject Tendon/Ligament/Cyst Comp leted 02/12/2021 96480 Office/Outpatient Established SF MDM 10-19 Min Completed 02/12/2021 87144 Strapping Foot Or Ankle Complete d 02/01/2021 96458 Office/Outpatient Established SF MDM 10-19 Min Completed Medical Devices Description No Information Available Encounters Type Date Location Provider Dx Diagnosis Office Visit 06/04/2021 11:00a [facility] Dylan Irizarry DPM M65.871 Other synovitis and tenosynovitis, right ankle and foot Office Visit 05/02/2021 10:30a [facility] Dylan Irizarry DPM S93.401D Sprain of unspecified ligament of right ankle, subs encntr M21.6x1 Other acquired deformities o f right foot Office Visit 04/18/2021 11:15a [facility] Dylan Irizarry DPM S93.401D Sprain of unspecified ligament of right ankle, subs encntr Office Visit 03/20/2021 1:00p [facility] Dylan Irizarry DPM S93.401D Sprain of unspecified ligament of right ankle, subs encntr M65.871 Other synovitis and tenosyno vitis, right ankle and foot Office Visit 03/12/2021 10:30a [facility] Dylan Irizarry DPM S93.401D Sprain of unspecified ligament of right ankle, subs encntr M65.871 Other synovitis and tenosyno vitis, right ankle and foot Office Visit 02/26/2021 10:30a [facility] Dylan Irizarry DPM S93.402D Sprain of unspecified ligament of left ankle, subs encntr M65.872 Other synovitis and tenosyno vitis, left ankle and foot Office Visit 02/12/2021 11:00a [facility] Dylan Irizarry DPM M72.2 Plantar fascial fibromatosis M21.6x1 Other acquired deformities o f right foot Office Visit 02/01/2021 11:15a [facility] Dylan Irizarry DPM M20.40 Other hammer toe(s) (acquired), unspecified foot L84 Corns and callosities Assessments Date Code Description Provider 06/04/2021 M65.871 Other synovitis and tenosynoviti s, right ankle and foot Dylan Irizarry DPM 05/02/2021 S93.401D Sprain of unspecifie d ligament of right ankle, subsequent encounter Dylan Irizarry DPM 05/02/2021 M21.6x1 Other acquired deformities of ri ght foot Dylan Irizarry, [place] 04/18/2021 S93.401D Sprain of unspecifie d ligament of right ankle, subsequent encounter Dylan Irizarry, DPM 03/20/2021 S93.401D Sprain of unspecifie d ligament of right ankle, subsequent encounter Dylan Irizarry, [place] 03/20/2021 M65.871 Other synovitis and tenosynoviti s, right ankle and foot Dylan Irizarry, DPM 03/12/2021 S93.401D Sprain of unspecifie d ligament of right ankle, subsequent encounter Dylan Irizarry, [place] 03/12/2021 M65.871 Other synovitis and tenosynoviti s, right ankle and foot Dylan Irizarry, [place] 02/26/2021 S93.402D Sprain of unspecifie d ligament of left ankle, subsequent encounter Dylan Irizarry, [place] 02/26/2021 M65.872 Other synovitis and tenosynoviti s, left ankle and foot Dylan Irizarry, [place] 02/12/2021 M72.2 Plantar fascial fibromatosis And junior Irizarry, [place] 02/12/2021 M21.6x1 Other acquired deformities of ri ght foot Dylan Irizarry, YAMILE 02/01/2021 M20.40 Other hammer toe(s) (acquired), unspecified foot Dylan Irizarry DPM 02/01/2021 L84 Corns and callosities Dylan Irizarry DPM Plan of Treatment Future Appointment(s):* 09/10/2021 10:45 am - Dylan Irizarry DPM at [facility] Functional Status Description No Information Available Mental Status Description No Information Available Referrals Refer to Reason for Referral Status Appt Date Dylan Irizarry DPM Created [address] [address] [phone] Dylan Irizarry DPM Created [address] [address] [phone]
--- OUTSIDE RECORDS SUMMARY | 2021-08-10 14:25 | CCD ---
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 Active confirmed 41499 01 Problem Disc displacement, 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 Active confirmed 564613756939748 Problem Seborrheic keratoses L82.1 Active confirmed 135020136 Problem Sebaceous hyperplasia L73.8 Active confirmed 059274406 Problem Spondylosis without myelopathy or radiculopathy, lumbosacral region M47.817 Active confirmed 39901310 Problem Depression F32.9 Active confirmed 94461849 Problem Bilateral serous otitis media, unspecified chronicity H65.93 Active confirmed 28729348 Problem Allergic rhinitis J30.9 Active confirmed 61 043039 Problem Essential hypertension I10 Active confirmed 24889385 Problem Coronary artery disease invo lving [place] coronary artery of [place] heart, angina presence unspecified I25.10 Active confirmed 8655264686087 Problem Stage 3 chronic kidney disease N18.3 Active confir med 257209897 Problem Celiac disease K90.0 Active confirmed 87401 1005 Problem Obstructive sleep apnea on CPAP G47.33 Active confi rmed 75881748 Problem CKD (chronic kidney disease), stage III N18.3 Active confirmed 096459675 Problem Hyperlipidemia E78.5 Active confirmed 49352 004 Problem Hypothyroidism, unspecified type E03.9 Active conf irmed 09796208 Problem Dysfunction of both eustachian tubes H69.83 Act forrest confirmed 66304299 Problem Gastroesophageal reflux disease with esophagitis K 21.0 Active confirmed 796017626 Problem Carpal tunnel syndrome of right wrist G56.01 Ac tive confirmed 51878221 Problem Granuloma annulare L92.0 Active confirmed 6 7605526 Problem Wound of right buttock, initial encounter S31.819A Active confirmed 586390607 Problem Sacroiliitis M46.1 Active confirmed 6514059 9 Problem Unspecified open wound of right buttock, subsequ ent encounter S31.819D Active confirmed 25089869095332552 Problem Arthritis of lumbosacral spine M47.817 Active confi rmed 781366947 Problem 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 Active confirmed 102771566 Problem Allergic contact dermatitis, unspecified trigger L 23.9 Active confirmed 228366740 Problem Melanocytic nevi of trunk D22.5 Active confirmed 840242770 Problem Spondylosis of lumbar region without myelopathy or radiculopathy M47.816 Active confirmed 561262859 Problem Inflammation of both ear canals H60.93 Active confi rmed 7947301 Problem Other chronic pain G89.29 Active confirmed 8 5971819 Problem Other hammer toe(s) (acquired), right foot M20.41 Active confirmed 88589082 Problem Liver cyst K76.89 Active confirmed 07467342 ALLERGIES Allergen (clinical drug ingredient) Drug/Non Drug Allergy do cumented on EMR Reaction Allergy Type Onset Date Status Latex Latex Rash Drug Allergy Active Gluten Gluten Rash Drug Allergy Active Adhesive Tape rash Drug Allergy Active Codeine Phosphate (For Allergies Use Only) Nausea/Vomiting Drug Allergy Active ENCOUNTERS from 1967 to 2021-07-25 Encounter Location Date Provider Diagnosis [address] [phone] [place] [address] Jul, Gauri Tylerkeisha IMMUNIZATIONS Vaccine Route Administration Date Status COVID-19 [...] Education Language: Question Answer Notes Languages spoken: Latvian Faith: Question Answer Notes Faith 21 Congregation No denominational beliefs that would impact health care. Drug [...] BY MOUTH TWICE DAILY Orally bid Active Rxfowrwc-Kkzvppoko-XZ 3.5-23007-9 4 drops into affecte d ear Otic Three times a day for 7 day(s) Mar, Active Topiramate 50 MG with a 25 mg tab for total of 75 mgs Orally @ 1700 Active [place] Saline Nasal - USE DIRECTED DAILY FOUR [...] Information RESULTS No Results REASON FOR VISIT N/s Discharge? MEDICAL (GENERAL) HISTORY Type Description Date Medical [...] 03/31/16 Surgical History CABG- 4 vessel at [place] 11/11/16 Surgical History Left hand CP sx, and tendon removal. Bone and joint center [facility] 01/2018 Surgical History Upper Endoscopic Ultrasound [...] knee diagnostic arthroscopy-Dr. Merrill 03/07/2021 Hospitalization History [facility]- Depression/A nxiety 14 yo Hospitalization History [facility] [place]- depre ssion 18 yo Hospitalization History Father Kel [facility] facilty- tx of depression. 16-18yo Hospitalization History Hemorrhoidectomy with remova l of a mixed hemorrhoidal bundles at the left lateral and right anterior and posterior positions. 01/11/2016 Hospitalization History CABG: [facility] 11/11/16 Hospitalization History Rehab [facility] 11/21 Hospitalization History POST RIGHT HAND HAND AND ELBOW SURGE RY 10/2019 Hospitalization History [facility] ED- Post-op problem, left foot c ellulitis 08/03/2020 Hospitalization History Right Ulnar Nerve 01/2020 Hospitalization History [facility] ED-AMA 01/21/2021 Hospitalization History [facility] ED-Right shoulder injury 021 Hospitalization History [facility] ED-Right foot pain 02/05/2021 Hospitalization History [facility] ED-Right ankle pain 02/19/2021 Hospitalization History [facility] ED-Right foot pain 02/22/2021 Hospitalization History [facility] ileus, small bowel obstruction Hospitalization History [facility] - partial small bowel obstructio n [...] t, 2020 Next Appt Details Provider Name:García Sternalvo, 2021-08-02 10:00:00 AM, [address], , [place], [address], Provider Name:Lolis Choudhary, 2021-08-08 10:3 0:00 AM, [address] [facility], , [place], [address], Provider Name:Debbie Thomson, 2021-09-04 01:15:00 PM, [address] [facility], , [place], [address], Insurance Providers Payer Name Payer Address Payer Phone Insured Name Patient Relati onship to Insured Coverage Start Date Coverage End Date [facility] [address] [facility] [phone] DEANNA AN self
--- OUTSIDE RECORDS SUMMARY | 2021-08-10 14:25 | CCD | Continuity of Care Document ---
Author Author Rinku XIE PA-C Organization Unknown Address [address] [place] [address] [address] [place] [address] Phone [phone] Care Team Providers Care Anodizer Name Role Phone Lolis Choudhary NEONATAL INTENSIVE CARE UNIT NURSE-C AUTM [phone] Formerly [facility] - [phone] AUTM [phone] Damaso Hampton MD AUTM [phone] Problems Description No Active Problems Social History Type Date Description Comments Sex Unknown ETOH Use Denies alcohol use Tobacco Use Start: Unknown End: Unknown Patient is a former smoker quit 33 yrs old Smoking Status Reviewed: 11/05/20 Patient is a former smoker qu it 33 yrs old Allergies and adverse reactions Active Allergies Criticality Reaction | Severity Comments Date Codeine Unable to assess criticality 04/12/2015 Tape Unable to assess criticality 12/09/2018 Latex Unable to assess criticality 12/09/2018 Gluten Unable to assess criticality 12/09/2018 Inactive Allergies NKDA Unable to assess criticality 04/05/2015 Medications Active Medications SIG Qnty Indications Ordering Provide r Date Meloxicam 15mg Tablets 1 by mouth every day with food or milk 30tabs Efrain Vidal MD 021 Medrol 4mg TBPK take as directed in the packet. 21 pills total. 21units Efrain Vidal MD 03/20 Tramadol HCL 50mg Tablets One tab every 4- 6 hours for pain 30tabs Richard Xie MD 08/01/2020 Gabapentin 600mg Tablets Take One Tablet By [...] 24HR 1 by mouth every day Unknown 000 Levothyroxine Sodium 88mcg Tablets 1 by mouth every day Unknown Cetirizine HCL 10mg Tablets 1 by mouth every day Unknown Omeprazole 20mg Capsules DR 1 by mouth every day Unknown Fluticasone Propionate 50mcg/Act Suspension 2 puffs a day Unknown Buspirone HCL 10mg Tablets 1 by mouth twice a day Unknown Immunizations Description No Information Available Vital Signs Date Vital Result Comment 06/12/2021 4:01pm Height 68 inches 5'8" Weight 315.00 lb BMI (Body Mass Index) 47.9 kg/m2 11/02/2020 9:22am Body Temperature 96.7 F Results Description No Information Available Procedures Date Code Description Status 07/19/2021 70946 Office/Outpatient Established Lo w MDM 20-29 Min Completed 07/03/2021 20705 Office/Outpatient Established Lo w MDM 20-29 Min Completed 06/21/2021 82076 Office/Outpatient Established Mo d MDM 30-39 Min Completed 06/12/2021 04188 Office/Outpatient Established Lo w MDM 20-29 Min Completed 06/12/2021 42416 X-Ray Hand Three Views Completed 05/21/2021 15642 Office/Outpatient Established Lo w MDM 20-29 Min Completed 05/21/2021 60263 X-Ray Hand Three Views Completed 05/21/2021 62662 Apply Cast Short Arm Completed 03/20/2021 27872 Office/Outpatient Established Lo w MDM 20-29 Min Completed 02/21/2021 44301 Office/Outpatient Established Mo d MDM 30-39 Min Completed Medical Devices Description No Information Available Encounters Type Date Location Provider Dx Diagnosis Office Visit 07/19/2021 1:00p [place] Aidee Xie PA-C S67.02x D Crushing injury of left thumb, subsequent encounter M18.12 Unil primary osteoarth of fi rst carpometacarp joint, l hand Office Visit 07/03/2021 1:45p [place] FRANTZ Willingham S80.02xA Contusion of left knee, initial encounter M17.12 Unilateral primary osteoarth ritis, left knee Office Visit 06/21/2021 3:30p [place] Aidee Xie PA-C S67.02x D Crushing injury of left thumb, subsequent encounter M18.12 Unil primary osteoarth of fi rst carpometacarp joint, l hand Office Visit 05/21/2021 2:45p [place] Marielena Rivera PA-C S6 7.02xA Crushing injury of left thumb, initial encounter M18.12 Unil primary osteoarth of fi rst carpometacarp joint, l hand M17.12 Unilateral primary osteoarth ritis, left knee Office Visit 02/21/2021 3:45p [place] Marielena Rivera PA-C M7 5.111 Incomplete rotatr-cuff tear/ruptr of r shoulder, not trauma M19.011 Primary osteoarthritis, righ t shoulder Assessments Date Code Description Provider 07/19/2021 S67.02xD Crushing injury of left thumb, s ubsequent encounter Aidee Xie PA-C 07/19/2021 M18.12 Unilateral primary o steoarthritis of first carpometacarpal joint, left hand Aidee Xie PA-C 07/03/2021 S80.02xA Contusion of left knee, initial encounter FRANTZ Willingham 07/03/2021 S80.02xA Contusion of left knee, initial encounter FRANTZ Willingham 07/03/2021 M17.12 Unilateral primary osteoarthriti s, left knee FRANTZ Willingham 06/21/2021 S67.02xD Crushing injury of left thumb, s ubsequent encounter [facility] 06/21/2021 M18.12 Unilateral primary o steoarthritis of first carpometacarpal joint, left hand [facility] 06/19/2021 S67.02xD Crushing injury of left thumb, s ubsequent encounter [facility] 06/19/2021 M18.12 Unilateral primary o steoarthritis of first carpometacarpal joint, left hand [facility] 06/12/2021 S67.02xD Crushing injury of left thumb, s ubsequent encounter [facility] 06/12/2021 S67.02xD Crushing injury of left thumb, s ubsequent encounter [facility], [facility] 06/12/2021 M18.12 Unilateral primary o steoarthritis of first carpometacarpal joint, left hand [facility], [facility] 06/12/2021 M18.12 Unilateral primary o steoarthritis of first carpometacarpal joint, left hand [facility]. [facility], [facility] 05/21/2021 M17.12 Unilateral primary osteoarthriti s, left knee Marielena Rivera, [facility] 05/21/2021 S67.02xA Crushing injury of left thumb, i nitial encounter Marielena Rivera PA-C 05/21/2021 M18.12 Unilateral primary o steoarthritis of first carpometacarpal joint, left hand Marielena Rivera, [facility] 05/21/2021 M17.12 Unilateral primary osteoarthriti s, left knee Marielena Rivera, [facility] 03/20/2021 M75.111 Incomplete rotator c uff tear or rupture of right shoulder, not specified as traumatic Enrique Ahuja, P.A. 03/20/2021 M19.011 Primary osteoarthritis, right [facility] Enrique Ahuja, P.A. 02/21/2021 M75.111 Incomplete rotator c uff tear or rupture of right shoulder, not specified as traumatic Marielena Rivera PA-C 02/21/2021 M19.011 Primary osteoarthritis, right [place] Marielena Rivera PA-C Plan of Treatment Future Appointment(s):* 08/06/2021 2:15 pm - FRANTZ Willingham at [place] * 07/24/2021 8:45 am - Marielena Rivera PA-C at [place] 07/19/2021 - Aidee Xie PA-C* S67.02xD Crushing injury of left thumb, subsequent encounter* New Orders:* Referral, Ordered: 07/19/21 * Follow up:* f/u please put all images on disc for patient. Thank you * M18.12 Unilateral primary osteoarthritis of first carpometacarpal joint, left hand Functional Status Description No Information Available Mental Status Description No Information Available Referrals Refer to Dr Reason for Referral Status Appt Date Aidee Xie PA-C MRI APPROVED PER [facility] FOR MRI OF LEFT HAND (91557) TO TRIAGE. DG Created [address] [place] [address] [phone] Efrain Vidal MD M79.645 PAIN IN LEFT FINGER(S) Created [address] [facility], [address] [place] [address] [phone] Marielena Rivera PA-C FLUORO INJ NO AUTH REQUIRED PER [facility]B FOR FLUOROSCOPIC INJECTION TO RIGHT SHOULDER (61382, 89419) TO VICENTE eMade DG Created [place] [address] [phone] Marielena Rivera PA-C SURGERY PER [place] [employer] NO AU TH REQUIRED FOR LEFT KNEE SURGERY (84618) TO SURGERY NT Created [address] [place] [address] [phone] Marielena Rivera PA-C OV - M47.817 LOW BACK Created [address] [place] [address] [phone] Richard Xie MD OV - M17.12 LT KNEE Created [address] [place], [place] [address] [phone] Enrique Ahuja PA OV M47.817 BACK Created [address] [place] [address] [phone] Efrain Vidal MD OV M75.471 RT SHLDR Created [address] [place] [address] [phone] Marielena Rivera PA-C OV M20.41 RT TOE Created [address] [place] [address] [phone]
--- OUTSIDE RECORDS SUMMARY | 2021-08-10 14:25 | CCD | Continuity of Care Document ---
Author Author Rinku XIE PA-C Organization Unknown Address [address] [place] [address] [address] [place] [address] Phone [phone] Care Team Providers Care Plan Consultant Name Role Phone Lolis Choudhary VALUE ANALYSIS COORDINATOR-C AUTM [phone] [facility] - [phone] AUTM [phone] Damaso Hampton MD AUTM [phone] Problems Description No Active Problems Social History [...] Available Procedures Date Code Description Status 07/19/2021 24980 Office/Outpatient Established Lo w MDM 20-29 Min Completed 07/03/2021 98712 Office/Outpatient Established Lo w MDM 20-29 Min Completed 06/21/2021 70076 Office/Outpatient Established Mo d MDM 30-39 Min Completed 06/12/2021 74869 Office/Outpatient Established Lo w MDM 20-29 Min Completed 06/12/2021 78003 X-Ray Hand Three Views Completed 05/21/2021 38222 Office/Outpatient Established Lo w MDM 20-29 Min Completed 05/21/2021 62273 X-Ray Hand Three Views Completed 05/21/2021 34316 Apply Cast Short Arm Completed 03/20/2021 84358 Office/Outpatient Established Lo w MDM 20-29 Min Completed 02/21/2021 43067 Office/Outpatient Established Mo d MDM 30-39 Min Completed Medical Devices Description No Information Available Encounters Type Date Location Provider Dx Diagnosis Office Visit 07/19/2021 1:00p [place] Aidee Xie PA-C S67.02x D Crushing injury of left thumb, subsequent encounter M18.12 Unil primary osteoarth of fi rst carpometacarp joint, l hand Office Visit 07/03/2021 1:45p [place] FRANTZ Willingham S80.02xA Contusion of left knee, initial encounter M17.12 Unilateral primary osteoarth ritis, left knee Office Visit 06/21/2021 3:30p [place] Aidee Xie PA-C S67.02x D Crushing injury of left thumb, subsequent encounter M18.12 Unil primary osteoarth of fi rst carpometacarp joint, l hand Office Visit 05/21/2021 2:45p [place] Marielena Rivera PA-C S6 7.02xA Crushing injury of left thumb, initial encounter M18.12 Unil primary osteoarth of fi rst carpometacarp joint, l hand M17.12 Unilateral primary osteoarth ritis, left knee Office Visit 02/21/2021 3:45p [place] Marielena Rivera PA-C M7 5.111 Incomplete rotatr-cuff [...] thumb, s ubsequent encounter [facility] 06/21/2021 M18.12 Unilateral primary o steoarthritis of first carpometacarpal joint, left hand [facility] L. Fish, [facility] 06/19/2021 S67.02xD Crushing injury of left thumb, s ubsequent encounter [facility] L. Fish, [facility] 06/19/2021 M18.12 Unilateral primary o steoarthritis of first carpometacarpal joint, left hand [facility] L. Fish, [facility] 06/12/2021 S67.02xD Crushing injury of left thumb, s ubsequent encounter [facility] L. Fish, [facility] 06/12/2021 S67.02xD Crushing injury of left thumb, s ubsequent encounter [facility] L. Fish, [facility] 06/12/2021 M18.12 Unilateral primary o steoarthritis of first carpometacarpal joint, left hand [facility] L. Fish, [facility] 06/12/2021 M18.12 Unilateral primary o steoarthritis of first carpometacarpal joint, left hand [facility] L. Fish, [facility] 05/21/2021 M17.12 Unilateral primary osteoarthriti s, left [...] Ahuja, P.A. 03/20/2021 M19.011 Primary osteoarthritis, right [facility] Enrique Ahuja, P.A. 02/21/2021 M75.111 Incomplete rotator c uff tear or rupture of right shoulder, not specified as traumatic Marielena Rivera PA-C 02/21/2021 M19.011 Primary osteoarthritis, right [place] Marielena Rivera PA-C Plan of Treatment Future Appointment(s):* 08/06/2021 2:15 pm - FRANTZ Willingham at [place] 07/19/2021 - Aidee iXe PA-C* S67.02xD Crushing injury of left thumb, subsequent encounter* Follow up:* f/u please put all images on disc for patient. Thank you * M18.12 Unilateral primary osteoarthritis of first carpometacarpal joint, left hand Functional Status Description No Information Available Mental Status Description No Information Available Referrals Refer to Dr Reason for Referral Status Appt Date Aidee Xie PA-C MRI APPROVED PER [facility] WEB FOR MRI OF LEFT HAND (38522) TO TRIAGE. DG Created [address] [place] [address] [phone] Efrain Vidal MD M79.645 PAIN IN LEFT FINGER(S) Created [address] [place] [address], [place] [address] [phone] Marielena Rivera PA-C FLUORO INJ NO AUTH REQUIRED PER [facility] WEB FOR FLUOROSCOPIC INJECTION TO RIGHT SHOULDER (36938, 26891) TO VICENTE S. DG Created [address] [place] [address] [phone] Marielena Rivera PA-C SURGERY PER [facility] NO AU TH REQUIRED FOR LEFT KNEE SURGERY (89702) TO SURGERY NT Created [address] [place] [address] [phone] Marielena Rivera PA-C OV - M47.817 LOW BACK Created [address] [place] [address] [phone] Richard Xie MD OV - M17.12 LT KNEE Created [address] [place] [address], [address] [address] [phone] Enrique Ahuja PA OV M47.817 BACK Created [address] [place] [address] [address] [place] [address] [phone] Efrain Vidal MD OV M75.471 RT SHLDR Created [address] [place] [address], [address] [place] [address] [phone] Marielena Rivera PA-C OV M20.41 RT TOE Created [address] [place], [place] [id number] [place] [address] [phone]
--- OUTSIDE RECORDS SUMMARY | 2021-08-10 14:25 | CCD | Continuity of Care Document ---
Author Author Rinku OLIVER PA Organization Unknown Address [address] [facility], [address] [place] [address] Phone [phone] Care Team Providers Care Livestock Buyer Name Role Phone Lolis Choudhary TITLE I INSTRUCTIONAL ASSISTANT-C AUTM [phone] [facility] - [phone] AUTM [phone] Damaso Hampton MD AUTM [phone] Problems Description No Active Problems Social History Type Date Description Comments Sex Unknown ETOH Use Denies alcohol use Tobacco Use Start: Unknown End: Unknown Patient is a former smoker quit 33 yrs old Smoking Status Reviewed: 11/05/20 Patient is a former smoker qu it 33 yrs old Allergies, Adverse Reactions, Alerts Active Allergies Criticality Reaction | Severity Comments [...] for pain 30tabs Richard Pond MD 08/01/2020 Gabapentin 600mg Tablets Take One [...] Information Available Procedures Date Code Description Status 07/03/2021 04187 Office/Outpatient New Moderate M DM 45-59 Minutes Completed 06/21/2021 07728 Office/Outpatient Established Mo d MDM 30-39 Min Completed 06/12/2021 01433 Office/Outpatient Established Lo w MDM 20-29 Min Completed 06/12/2021 97614 X-Ray Hand Three Views Completed 05/21/2021 79984 Office/Outpatient Established Lo w MDM 20-29 Min Completed 05/21/2021 54046 X-Ray Hand Three Views Completed 05/21/2021 65205 Apply Cast Short Arm Completed 03/20/2021 88940 Office/Outpatient Established Lo w MDM 20-29 Min Completed 02/21/2021 43541 Office/Outpatient Established Mo d MDM 30-39 Min Completed Medical Devices Description No Information Available Encounters Type Date Location Provider Dx Diagnosis Office Visit 07/03/2021 1:45p [place] FRANTZ Willingham M17.12 Unilateral primary osteoarthritis, left knee S80.02xA Contusion of left knee, init ial encounter Office Visit 06/21/2021 3:30p [place] Aidee Pond PA-C S67.02x D Crushing injury of left thumb, subsequent encounter M18.12 Unil primary osteoarth of fi rst carpometacarp joint, l hand Office Visit 05/21/2021 2:45p [place] Marielena Rivera PA-C S6 7.02xA Crushing injury of left thumb, initial encounter M18.12 Unil primary osteoarth of fi rst carpometacarp joint, l hand M17.12 Unilateral primary osteoarth ritis, left knee Office Visit 02/21/2021 3:45p [place] Marielena Rivera PA-C M7 5.111 Incomplete rotatr-cuff tear/ruptr of r shoulder, not trauma M19.011 Primary osteoarthritis, righ t shoulder Assessments Date Code Description Provider 07/03/2021 M17.12 Unilateral primary osteoarthriti s, left knee FRANTZ Willingham 07/03/2021 S80.02xA Contusion of left knee, initial encounter FRANTZ Willingham 06/21/2021 S67.02xD Crushing injury of left thumb, s ubsequent encounter Aidee Pond PA-C 06/21/2021 M18.12 Unilateral primary o steoarthritis of first carpometacarpal joint, left hand Aidee Pond PA-C 06/19/2021 S67.02xD Crushing injury of left thumb, s ubsequent encounter Aidee Pond PA-C 06/19/2021 M18.12 Unilateral primary o steoarthritis of first carpometacarpal joint, left hand Aidee Pond PA-C 06/12/2021 S67.02xD Crushing injury of left thumb, s ubsequent encounter Aidee Pond PA-C 06/12/2021 S67.02xD Crushing injury of left thumb, s ubsequent encounter Aidee Briscoe JODI Pond 06/12/2021 M18.12 Unilateral primary o steoarthritis of first carpometacarpal joint, left hand Aidee Briscoe JODI Pond 06/12/2021 M18.12 Unilateral primary o steoarthritis of first carpometacarpal joint, left hand Aidee Briscoe JODI Pond 05/21/2021 M17.12 Unilateral primary osteoarthriti s, left knee Marielena Rivera PA-C 05/21/2021 S67.02xA Crushing injury of left thumb, i nitial encounter Marielena Rivera PA-C 05/21/2021 M18.12 Unilateral primary o steoarthritis of first carpometacarpal joint, left hand Marielena Rivera PA-C 05/21/2021 M17.12 Unilateral primary osteoarthriti s, left knee Marielena Rivera PA-C 03/20/2021 M75.111 Incomplete rotator c uff tear or rupture of right shoulder, not specified as traumatic Enrique Ahuja, P.A. 03/20/2021 M19.011 Primary osteoarthritis, right [facility] Enrique Ahuja, P.A. 02/21/2021 M75.111 Incomplete rotator c uff tear or rupture of right shoulder, not specified as traumatic Marielena Rivera PA-C 02/21/2021 M19.011 Primary osteoarthritis, right [facility] Marielena Rivera PA-C Plan of Treatment Future Appointment(s):* 07/24/2021 8:45 am - Marielena Rivera PA-C at [place] * 07/19/2021 1:00 pm - Aidee Pond PA-C at [place] 07/03/2021 - [facility] [place]* M17.12 Unilateral primary osteoarthritis, left knee* New Orders:* Knee Immobilizer - Left, Ordered: 07/03/21 * Cane, Ordered: 07/03/21 * Follow up:* 2 week Lt. knee lucila with IID. * S80.02xA Contusion of left knee, initial encounter Functional Status Description No Information Available Mental Status Description No Information Available Referrals Refer to Reason for Referral Status Appt Date Aidee Pond PA-C MRI APPROVED PER [facility] WEB FOR MRI OF LEFT HAND (45275) TO TRIAGE. DG Created [address] [place] [address] [phone] Efrain Vidal MD M79.645 PAIN IN LEFT FINGER(S) Created [facility] [place] [address] [phone] Marielena Rivera PA-C FLUORO INJ NO AUTH REQUIRED PER [facility] WEB FOR FLUOROSCOPIC INJECTION TO RIGHT SHOULDER (39283, 84465) TO VICENTE S. DG Created [facility] [address] [phone] Marielena Rivera PA-C SURGERY PER [facility] NO AU TH REQUIRED FOR LEFT KNEE SURGERY (71344) TO SURGERY NT Created [facility] [address] [phone] Marielena Rivera PA-C OV - M47.817 LOW BACK Created [facility] [address] [phone] Richard Pond MD OV - M17.12 LT KNEE Created [address] [place] [address] [phone] Enrique Ahuja PA OV M47.817 BACK Created [facility] [address] [phone] Efrain Vidal MD OV M75.471 RT SHLDR Created [facility] [place] [address] [phone] Marielena Rivera PA-C OV M20.41 RT TOE Created [facility] [address] [phone] Marielena Rivera PA-C MRI ARTHRO APPROVED PER [facility] FOR MRI ARTHROGRAM OF RIGHT SHOULDER (54503) TO VICENTE Gallardo [facility] [address] [place] [address] [phone]
--- OUTSIDE RECORDS SUMMARY | 2021-08-10 14:25 | CCD | Continuity of Care Document ---
Author Author Rinku OLIVER PA Organization Unknown Address [address] [facility], [address] [place] [address] Phone [phone] Care Team Providers Care Assurance Manager Name Role Phone Lolis Choudhary VICE PRESIDENT RESIDENTIAL SOLAR SALES-C AUTM [phone] [facility] - [phone] AUTM Damaso Hampton MD AUTM [phone] Problems Description No Active Problems Social History [...] Available Procedures Date Code Description Status 07/03/2021 24334 Office/Outpatient Established Lo w MDM 20-29 Min Completed 06/21/2021 86008 Office/Outpatient Established Mo d MDM 30-39 Min Completed 06/12/2021 78309 Office/Outpatient Established Lo w MDM 20-29 Min Completed 06/12/2021 38018 X-Ray Hand Three Views Completed 05/21/2021 29832 Office/Outpatient Established Lo w MDM 20-29 Min Completed 05/21/2021 94679 X-Ray Hand Three Views Completed 05/21/2021 37411 Apply Cast Short Arm Completed 03/20/2021 45550 Office/Outpatient Established Lo w MDM 20-29 Min Completed 02/21/2021 90800 Office/Outpatient Established Mo d MDM 30-39 Min Completed Medical Devices Description No Information Available Encounters Type Date Location Provider Dx Diagnosis Office Visit 07/03/2021 1:45p [place] FRANTZ Willingham S80.02xA Contusion of left knee, initial encounter M17.12 Unilateral primary osteoarth ritis, left knee Office Visit 06/21/2021 3:30p [place] Aidee Pond PA-C S67.02x D Crushing injury of left thumb, subsequent encounter M18.12 Unil primary osteoarth of fi rst carpometacarp joint, l hand Office Visit 05/21/2021 2:45p [place] Marielena Rivera PA-C S6 7.02xA Crushing injury of left thumb, initial encounter M18.12 Unil primary osteoarth of fi rst carpometacarp joint, l hand M17.12 Unilateral primary osteoarth ritis, left knee Office Visit 02/21/2021 3:45p [place] Marielena Rivera PA-C M7 5.111 Incomplete rotatr-cuff tear/ruptr of r shoulder, not trauma M19.011 Primary osteoarthritis, righ t shoulder Assessments Date Code Description Provider 07/03/2021 S80.02xA Contusion of left knee, initial encounter FRANTZ Willingham 07/03/2021 S80.02xA Contusion of left knee, initial encounter FRANTZ Willingham 07/03/2021 M17.12 Unilateral primary osteoarthriti s, left knee FRANTZ Willignham 06/21/2021 S67.02xD Crushing injury of left thumb, [...] of left thumb, s ubsequent encounter Aidee PondJODI 06/12/2021 S67.02xD Crushing injury of left thumb, s ubsequent encounter Aidee Briscoe KRYSTA PondC 06/12/2021 M18.12 Unilateral primary o steoarthritis of first carpometacarpal joint, left hand Aidee Pond, KRYSTAC 06/12/2021 M18.12 Unilateral primary o steoarthritis of [...] Ahuja, P.A. 03/20/2021 M19.011 Primary osteoarthritis, right [facility] Enrique Ahuja, P.A. 02/21/2021 M75.111 Incomplete rotator c uff tear or rupture of right shoulder, not specified as traumatic Marielena Rivera PA-C 02/21/2021 M19.011 [facility] oste[facility] Marielena Rivera PA-C Plan of Treatment Future Appointment(s):* 07/17/2021 4:15 pm - FRANTZ Willingham at [place] * 07/24/2021 8:45 am - Marielena Rivera PA-C at [place] * 07/19/2021 1:00 pm - Aidee LopezCristina JODI Pond at [place] 07/03/2021 - FRANTZ Willingham* S80.02xA Contusion of left knee, initial encounter * M17.12 Unilateral primary osteoarthritis, left knee Functional Status Description No Information Available Mental Status Description No Information Available Referrals Refer to Reason for Referral Status Appt Date Aidee Pond PA-C MRI APPROVED PER [facility] WEB FOR MRI OF LEFT HAND (12907) TO TRIAGE. DG Created [address] [place] [address] [phone] Efrain Vidal MD M79.645 PAIN IN LEFT FINGER(S) Created [facility] [place] [address] [phone] Marielena Rivera PA-C FLUORO INJ NO AUTH REQUIRED PER [facility] WEB FOR FLUOROSCOPIC INJECTION TO RIGHT SHOULDER (20370, 80824) TO VICENTE S. DG Created [facility] [place] [address] [phone] Marielena Rivera PA-C SURGERY PER [place] WEB NO AU TH REQUIRED FOR LEFT KNEE SURGERY (16069) TO SURGERY NT Created [facility] [place] [address] [phone] Marielena Rivera PA-C OV - M47.817 LOW BACK Created [facility] [place] [address] [phone] Richard Pond MD OV - M17.12 LT KNEE Created [facility] [place] [address] [phone] Enrique Ahuja PA OV M47.817 BACK Created [facility] [place] [address] [phone] Efrain Vidal MD OV M75.471 RT SHLDR Created [facility] [place] [address] [phone] Marielena Rivera PA-C OV M20.41 RT TOE Created [facility] [place] [address] [phone]
--- OUTSIDE RECORDS SUMMARY | 2021-08-10 14:25 | CCD | Continuity of Care Document ---
Author Author Rinku XIE PA-C Organization Unknown Address [address] [place] [address] [address] [place] [address] Phone [phone] Care Team Providers Care Citrus Picker Name Role Phone Lolis Choudhary ASSISTANT PLANT CONTROL OPERATOR-C AUTM [phone] [facility] - [phone] AUTM Damaso Hampton MD AUTM [phone] Problems Description No Active Problems Social History [...] 4- 6 hours for pain 30tabs Richard Xei MD 08/01/2020 Gabapentin 600mg Tablets Take One [...] Available Procedures Date Code Description Status 07/19/2021 91680 Office/Outpatient Established Lo w MDM 20-29 Min Completed 07/03/2021 03466 Office/Outpatient Established Lo w MDM 20-29 Min Completed 06/21/2021 12249 Office/Outpatient Established Mo d MDM 30-39 Min Completed 06/12/2021 56359 Office/Outpatient Established Lo w MDM 20-29 Min Completed 06/12/2021 08829 X-Ray Hand Three Views Completed 05/21/2021 56996 Office/Outpatient Established Lo w MDM 20-29 Min Completed 05/21/2021 73702 X-Ray Hand Three Views Completed 05/21/2021 60949 Apply Cast Short Arm Completed 03/20/2021 46788 Office/Outpatient Established Lo w MDM 20-29 Min Completed 02/21/2021 49592 Office/Outpatient Established Mo d MDM 30-39 Min Completed Medical Devices Description No Information Available Encounters Type Date Location Provider Dx Diagnosis Office Visit 07/19/2021 1:00p [place] Aidee Xie PA-C S67.02x D Crushing injury of left thumb, subsequent encounter M18.12 Unil primary osteoarth of fi rst carpometacarp joint, l hand Office Visit 07/03/2021 1:45p [place] FRANTZ Willingham S80.02xA Contusion of left knee, initial encounter M17.12 Unilateral primary osteoarth ritis, left knee Office Visit 06/21/2021 3:30p [place] Aidee Xie PA-C S67.02x D Crushing injury of left thumb, subsequent encounter M18.12 Unil primary osteoarth of fi rst carpometacarp joint, l hand Office Visit 05/21/2021 2:45p [place] Marielena Rivera PA-C S6 7.02xA Crushing injury of left thumb, initial encounter M18.12 Unil primary osteoarth of fi rst carpometacarp joint, l hand M17.12 Unilateral primary osteoarth ritis, left knee Office Visit 02/21/2021 3:45p [place] Marielena Rivera PA-C M7 5.111 Incomplete rotatr-cuff [...] thumb, s ubsequent encounter Aidee L. Fish, [facility] 06/21/2021 M18.12 Unilateral primary o steoarthritis of first carpometacarpal joint, left hand Aidee L. Fish, [facility] 06/19/2021 S67.02xD Crushing injury of left thumb, s ubsequent encounter Aidee L. Fish, [facility] 06/19/2021 M18.12 Unilateral primary o steoarthritis of first carpometacarpal joint, left hand Aidee L. Fish, [facility] 06/12/2021 S67.02xD Crushing injury of left thumb, s ubsequent encounter Aidee L. Fish, [facility] 06/12/2021 S67.02xD Crushing injury of left thumb, s ubsequent encounter Aidee L. Fish, [facility] 06/12/2021 M18.12 Unilateral primary o steoarthritis of first carpometacarpal joint, left hand Aidee L. Fish, [facility] 06/12/2021 M18.12 Unilateral primary o steoarthritis of first carpometacarpal joint, left hand Aidee L. Fish, [facility] 05/21/2021 M17.12 Unilateral primary osteoarthriti s, left [...] Ahuja, P.A. 03/20/2021 M19.011 Primary osteoarthritis, right [facility] Enrique Ahuja, P.A. 02/21/2021 M75.111 Incomplete rotator c uff tear or rupture of right shoulder, not specified as traumatic Marielena Rivera PA-C 02/21/2021 M19.011 Primary osteoarthritis, right [place] Marielena Rivera PA-C Plan of Treatment Future Appointment(s):* 08/06/2021 2:15 pm - FRANTZ Willingham at [place] * 07/24/2021 8:45 am - Marielena Rivera PA-C at [place] 07/19/2021 - Aidee Xie PA-C* S67.02xD Crushing [...] Date Aidee Xie PA-C MRI APPROVED PER [facility] WEB FOR MRI OF LEFT HAND (18314) TO TRIAGE. DG Created [address] [place] [address] [phone] Efrain Vidal MD M79.645 PAIN IN LEFT FINGER(S) Created [address] [facility], [address] [place] [address] [phone] Marielena Rivera PA-C FLUORO INJ NO AUTH REQUIRED PER [facility] WEB FOR FLUOROSCOPIC INJECTION TO RIGHT SHOULDER (18795, 92646) TO VICENTE Me[place] DG Created [facility] [place] [address] [phone] Marielena Rivera PA-C SURGERY PER [place] [employer] NO AU TH REQUIRED FOR LEFT KNEE SURGERY (79326) TO SURGERY NT Created [address] [place] [address] [phone] Marielena Rivera PA-C OV - M47.817 LOW BACK Created [address] [place] [address] [phone] Richard Xie MD OV - M17.12 LT KNEE Created [address] [place], [place] [address] [phone] Enrique Ahuja PA OV M47.817 BACK Created [address] [place] [address] [phone] Efrain Vidal MD OV M75.471 RT SHLDR Created [address] [place] [address] [phone] Marielena Rivera PA-C OV M20.41 RT TOE Created [address] [place] [address] [phone]
--- OUTSIDE RECORDS SUMMARY | 2021-08-10 14:25 | CCD ---
Author Author [facility] Organization [facility] Address Unknown Phone Unavailable Care Team Providers Care Design Agent Name Role Phone García Helm Unavailable PROBLEMS Type Condition ICD9-CM Code [id number] Code Onset Dates Condition S tatus W/U Status Risk SNOMED Code Notes Problem Anxiety disorder, unspecified F41.9 Active confirm ed 594052196 Problem Intervertebral disc disorder with radiculopathy of lumbar region M51.16 Active confirmed 68637261 Problem Obesity, unspecified E66.9 Active confirmed 11400526213550 Problem 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 Active confirmed 90306 01 Problem Disc displacement, 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 Active confirmed 320603663002159 Problem Seborrheic keratoses L82.1 Active confirmed 248997989 Problem Sebaceous hyperplasia L73.8 Active confirmed 748170161 Problem Spondylosis without myelopathy or radiculopathy, lumbosacral region M47.817 Active confirmed 73714755 Problem Depression F32.9 Active confirmed 97964937 Problem Bilateral serous otitis media, unspecified chronicity H65.93 Active confirmed 36673496 Problem Allergic rhinitis J30.9 Active confirmed 61 044367 Problem Essential hypertension I10 Active confirmed 83567214 Problem Coronary artery disease invo lving [place] coronary artery of [place] heart, angina presence unspecified I25.10 Active confirmed 5185367772594 Problem Stage 3 chronic kidney disease N18.3 Active confir med 033006532 Problem Celiac disease K90.0 Active confirmed 56207 1005 Problem Obstructive sleep apnea on CPAP G47.33 Active confi rmed 18156001 Problem CKD (chronic kidney disease), stage III N18.3 Active confirmed 348508872 Problem Hyperlipidemia E78.5 Active confirmed 87248 004 Problem Hypothyroidism, unspecified type E03.9 Active conf irmed 32407426 Problem Dysfunction of both eustachian tubes H69.83 Act forrest confirmed 41463619 Problem Gastroesophageal reflux disease with esophagitis K 21.0 Active confirmed 778938559 Problem Carpal tunnel syndrome of right wrist G56.01 Ac tive confirmed 50828684 Problem Granuloma annulare L92.0 Active confirmed 6 5481528 Problem Wound of right buttock, initial encounter S31.819A Active confirmed 657043868 Problem Sacroiliitis M46.1 Active confirmed 0293960 9 Problem Unspecified open wound of right buttock, subsequ ent encounter S31.819D Active confirmed 91418557318525253 Problem Arthritis of lumbosacral spine M47.817 Active confi rmed 605926469 Problem 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 Active confirmed 999491344 Problem Allergic contact dermatitis, unspecified trigger L 23.9 Active confirmed 296428137 Problem Melanocytic nevi of trunk D22.5 Active confirmed 151833238 Problem Spondylosis of lumbar region without myelopathy or radiculopathy M47.816 Active confirmed 649672104 Problem Inflammation of both ear canals H60.93 Active confi rmed 3660351 Problem Other chronic pain G89.29 Active confirmed 8 6007928 Problem Other hammer toe(s) (acquired), right foot M20.41 Active confirmed 08906754 Problem Liver cyst K76.89 Active confirmed 52356150 ALLERGIES Allergen (clinical drug ingredient) Drug/Non Drug Allergy do cumented on EMR Reaction Allergy Type Onset Date Status Latex (for allergy use only) Rash Drug Allergy Active Adhesive Tape rash Drug Allergy Active Gluten allergy Rash Non Drug Allergy Acti ve Codeine Phosphate (For Allergies Use Only) Nausea/Vomiting Drug Allergy Active ENCOUNTERS from 1967 to 2021-07-03 Encounter Location Date Provider Diagnosis [facility] [address] [facility] 3[address] [phone] [place] [address] Jun, García Helm IMMUNIZATIONS Vaccine Route Administration Date Status COVID-19 dose #2 given elsewhere Unspecified Unknown Jan Administered Influenza 18 yrs & older Flublok IM Intramuscular Jul 08, 2018 Administered Influenza 18 yrs & older Flublok IM Intramuscular Jun 29, 2020 Administered Influenza 18 yrs & older Flublok Unknown Nov 20, 2020 Administered COVID-19 dose #1 given elsewhere Unspecified Unknown Dec Administered Influenza 6mo & up Fluzone IM Intramuscular Aug 16, 2013 Admi nistered Influenza 18 yrs & older Flublok IM Intramuscular Jul 27, 2019 Administered Zoster 50mcg/0.5mL Shingrix Unknown December 21, [...] Education Language: Question Answer Notes Languages spoken: Afghan Mormonism: Question Answer Notes Mormonism 21 Tenriism No scientology beliefs that would impact health care. Drug [...] Notes Start Da te End Date Status Aspirin 81 MG 1 tablet Orally Once a day Aug, Active Famotidine 20 MG TAKE ONE TABLET BY MOUTH @8A M and TAKE ONE TABLET BY MOUTH @8PM Oral for 28 Active Fluticasone Propionate 50 MCG/ACT instill ONE SPRAY IN EACH NOSTRIL TWICE DAILY NEEDED for 30 Active Cetirizine HCl 10 MG 1 tablet Orally once daily for 28 Active Triamcinolone Acetonide 0.1 % 1 application Externally Twice a day to dorsal hands for 14 days May, Active Docusate Sodium 100 MG TAKE ONE CAPSULE BY MOUTH @8AM for 28 Active Gabapentin 600 MG TAKE ONE TABLET BY MOUTH @8A M and TAKE ONE TABLET @12PM and TAKE ONE TABLET @8PM Oral q8h TID for 30 Days Active busPIRone HCl 10 MG TAKE ONE TABLET BY MOUTH @8A M and TAKE ONE TABLET @8PM Oral for 28 Active Betamethasone Dipropionate 0.05 % 1 application Journeyman Pipefitter ally Twice a day to rash on abdomen and back for 14 days Jun, Active traMADol HCl 50 MG 1 tablet as needed Orally q6h prn mdd4 for 30 Days Sep, Active Vitamin D 1000 UNIT 2 tablets with meal Orally Once a day for 90 day(s) Dec, Active Omeprazole 40 MG TAKE ONE CAPSULE BY MOUTH @8AM ON AN EMPTY STOMACH O ral Active Levothyroxine Sodium 25 MCG TAKE ONE TABLET BY MOUTH @8AM for Active Kgpsptyp-Trbwehrcr-YC 3.5-96068-3 4 drops into affecte d ear Otic Three times a day for 7 day(s) Mar, Active Montelukast Sodium 10 MG 1 tablet Orally Once a day for 28 Active Atorvastatin Calcium 40 MG Take 1 tablet By Mouth once a day for 90 Active Escitalopram Oxalate 10 MG 1 tablet Oral Once a day along with a 20 mg tablet Active tiZANidine HCl 4 MG 1 tablet as needed Orally Th ree times a day NEEDED FOR SEVERE PAIN for 30 Days Active Ondansetron HCl 8 MG 1 tablet as needed Orally th ree times daily only as needed for nausea or vomiting for 10 day(s) May, Active Metoprolol Tartrate 25 mg 1/2 tab Oral Daily Active MiraLax 17 GM/SCOOP 17gm scoop mixed with water Orally Once a day as needed for 30 Days Mar, Active Ventolin HFA 108 (90 Base) MCG/ACT INHALE TWO PUFFS BY MOUTH EVERY FOUR HOURS NEEDED Inhalation - for 30 days 2 days ago Active Topiramate 50 MG with a 25 mg tab for total of 75 mgs Orally @ 1700 Active Multivitamin Adult - as directed Orally Dec, Active Trihexyphenidyl HCl 2 MG TAKE ONE TABLET BY MOUTH TWICE DAILY Orally bid Active PROCEDURES No Information RESULTS No Results REASON FOR VISIT PAIN MEDICAL (GENERAL) HISTORY Type Description Date Medical History Depression/Anxiety- Dr Enriquez. /therapist Q2 weeks Medical History Hyperlipidemia Medical History GERD with Barretts: Repeat EGD in 8 Medical History vitamin d def Medical History FRAN: following with Pulmonol ogy: compliant with CPAP-pulmonology Medical History CAD: Bypass with autologous vein: Dr. Shelley munguia at [facility] Medical History ECHO 10/17/2016. Hypertensive [...] 03/31/16 Surgical History CABG- 4 vessel at [facility] 11/11/16 Surgical History Left hand CP sx, and tendon removal. [facility] 01/2018 Surgical History Upper Endoscopic Ultrasound with [...] knee diagnostic arthroscopy-Dr. Merrill 03/07/2021 Hospitalization History [facility]- Depression/A nxiety 14 yo Hospitalization History [facility] [place]- depre ssion 18 yo Hospitalization History Father Verenice- [facility]- ezequiel d facilty- tx of depression. 16-20yo Hospitalization History Hemorrhoidectomy with remova l of a mixed hemorrhoidal bundles at the left lateral and right anterior and posterior positions. 01/11/2016 Hospitalization History CABG: [facility] 11/11/16 Hospitalization History Rehab [facility] 11/21 Hospitalization History POST RIGHT HAND HAND AND ELBOW SURGE RY 10/2019 Hospitalization History [facility] ED- Post-op problem, left foot c ellulitis 08/03/2020 Hospitalization History Right Ulnar Nerve 01/2020 Hospitalization History [facility] ED-AMA 01/21/2021 Hospitalization History [facility] ED-Right shoulder injury 021 Hospitalization History [facility] ED-Right foot pain 02/05/2021 Hospitalization History [facility] ED-Right ankle pain 02/19/2021 Hospitalization History [facility] ED-Right foot pain 02/22/2021 Hospitalization History [facility] ileus, small bowel obstruction Hospitalization History [facility] - partial small bowel obstructio n 03/09/21 Hospitalization History [facility] - atypical chest pains 03/2021 Goals Section No Information Health Concerns No Information MEDICAL EQUIPMENT No Information MENTAL STATUS No Information FUNCTIONAL STATUS No Information ASSESSMENTS No Information PLAN OF TREATMENT Medication Medication Name Sig Start Date Stop Date Betamethasone Dipropionate 0.05 % 1 application Journeyman Pipefitter ally Twice a day to rash on abdomen and back for 14 days Jun, Next Appt Details Provider Name:Lolis Choudhary, 2021-07-04 03:3 0:00 PM, [facility] [facility], , [place], [address], Provider Name:Debbie Thomson, 2021-07-22 04:30:00 PM, [address] [facility], , [place], [address], Provider Name:García Helm, 2021-08-02 10:00:00 AM, [address], , [place], [address], Provider Name:Lolis Choudhary, 2021-08-08 10:3 0:00 AM, [facility] [phone], [place], [address], Insurance Providers Payer Name Payer Address Payer Phone Insured Name Patient Relati onship to Insured Coverage Start Date Coverage End Date [facility] [address] [facility] [phone] DEANNA AN self
--- OUTSIDE RECORDS SUMMARY | 2021-08-10 14:25 | CCD ---
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 Active confirmed 15776 01 Problem Disc displacement, 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 Active confirmed 565459829988238 Problem Seborrheic keratoses L82.1 Active confirmed 364956558 Problem Sebaceous hyperplasia L73.8 Active confirmed 289622164 Problem Spondylosis without myelopathy or radiculopathy, lumbosacral region M47.817 Active confirmed 01508707 Problem Depression F32.9 Active confirmed 24476980 Problem Bilateral serous otitis media, unspecified chronicity H65.93 Active confirmed 24952076 Problem Allergic rhinitis J30.9 Active confirmed 61 983401 Problem Essential hypertension I10 Active confirmed 25261527 Problem Coronary artery disease invo lving [place] coronary artery of [place] heart, angina presence unspecified I25.10 Active confirmed 1633190178838 Problem Stage 3 chronic kidney disease N18.3 Active confir med 029756069 Problem Celiac disease K90.0 Active confirmed 65075 1005 Problem Obstructive sleep apnea on CPAP G47.33 Active confi rmed 66831205 Problem CKD (chronic kidney disease), stage III N18.3 Active confirmed 407252288 Problem Hyperlipidemia E78.5 Active confirmed 85375 004 Problem Hypothyroidism, unspecified type E03.9 Active conf irmed 18385207 Problem Dysfunction of both eustachian tubes H69.83 Act forrest confirmed 16757139 Problem Gastroesophageal reflux disease with esophagitis K 21.0 Active confirmed 689757595 Problem Carpal tunnel syndrome of right wrist G56.01 Ac tive confirmed 76413111 Problem Granuloma annulare L92.0 Active confirmed 6 9566712 Problem Wound of right buttock, initial encounter S31.819A Active confirmed 652260639 Problem Sacroiliitis M46.1 Active confirmed 6983814 9 Problem Unspecified open wound of right buttock, subsequ ent encounter S31.819D Active confirmed 15679080720660617 Problem Arthritis of lumbosacral spine M47.817 Active confi rmed 330364958 Problem 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 Active confirmed 298180035 Problem Allergic contact dermatitis, unspecified trigger L 23.9 Active confirmed 152642532 Problem Melanocytic nevi of trunk D22.5 Active confirmed 558548977 Problem Spondylosis of lumbar region without myelopathy or radiculopathy M47.816 Active confirmed 044423128 Problem Inflammation of both ear canals H60.93 Active confi rmed 0599623 Problem Other chronic pain G89.29 Active confirmed 8 2578996 Problem Other hammer toe(s) (acquired), right foot M20.41 Active confirmed 86018130 Problem Liver cyst K76.89 Active confirmed 06948023 ALLERGIES Allergen (clinical drug ingredient) Drug/Non Drug Allergy do cumented on EMR Reaction Allergy Type Onset Date Status Latex Latex Rash Drug Allergy Active Adhesive Tape rash Drug Allergy Active Gluten allergy Rash Non Drug Allergy Acti ve Codeine Phosphate (For Allergies Use Only) Nausea/Vomiting Drug Allergy Active ENCOUNTERS from 1967 to 2021-07-22 Encounter Location Date Provider Diagnosis [place] [address] [facility] [phone] [place] [address] Jul, Lolis Choudhary IMMUNIZATIONS Vaccine Route Administration Date Status Zoster [...] Education Language: Question Answer Notes Languages spoken: Nepali Quaker: Question Answer Notes Quaker 21 Restoration No gnosticism beliefs that would impact health care. Drug [...] BY MOUTH TWICE DAILY Orally bid Active Znhpukoa-Zvukupijt-OZ 3.5-04217-4 4 drops into affecte d ear Otic Three times a day for 7 day(s) Mar, Active Topiramate 50 MG with a 25 mg tab for total of 75 mgs Orally @ 1700 Active [place] Saline Nasal - USE DIRECTED DAILY FOUR [...] Information RESULTS No Results REASON FOR VISIT Admin Review Letter MEDICAL (GENERAL) HISTORY Type Description Date Medical History Depression/Anxiety- Dr Enriquez. /therapist Q2 weeks Medical History Hyperlipidemia Medical History GERD with Barretts: Repeat EGD in Medical History vitamin d def Medical History FRAN: following with Pulmonol ogy: compliant with CPAP-pulmonology Medical History CAD: Bypass with autologous vein: Dr. Shelley munguia at [facility] Medical History ECHO 10/17/2016. Hypertensive heart [...] 03/31/16 Surgical History CABG- 4 vessel at [place] 11/11/16 Surgical History Left hand CP sx, and tendon removal. [facility] 01/2018 Surgical History Upper Endoscopic Ultrasound with [...] knee diagnostic arthroscopy-Dr. Merrill 03/07/2021 Hospitalization History [facility]- Depression/A nxiety 14 yo Hospitalization History [facility]- depre ssion 18 yo Hospitalization History Father Kel Shearer- ezequiel d facilty- tx of depression. [age]yo Hospitalization History Hemorrhoidectomy with remova l of a mixed hemorrhoidal bundles at the left lateral and right anterior and posterior positions. 01/11/2016 Hospitalization History CABG: [facility] 11/11/16 Hospitalization History Rehab [facility] 11/21 Hospitalization History POST RIGHT HAND HAND AND ELBOW SURGE RY 10/2019 Hospitalization History [facility] ED- Post-op problem, left foot c ellulitis 08/03/2020 Hospitalization History Right Ulnar Nerve 01/2020 Hospitalization History [facility] ED-AMA 01/21/2021 Hospitalization History [facility] ED-Right shoulder injury 021 Hospitalization History [facility] ED-Right foot pain 02/05/2021 Hospitalization History [facility] ED-Right ankle pain 02/19/2021 Hospitalization History [facility] ED-Right foot pain 02/22/2021 Hospitalization History [facility] ileus, small bowel obstruction Hospitalization History [facility] - partial small bowel obstructio n 03/09/21 [...] Oc t, 2020 Next Appt Details Provider Name:Gauri Salcedo, 2021-07-23 11:15:00 AM, [address] [facility], , [place], [address], Provider Name:García Helm, 2021-08-02 10:00:00 AM, [address], , [place], [address], Provider Name:Lolis Choudhary, 2021-08-08 10:3 0:00 AM, [address] [facility], , [place], [address], Provider Name:Debbie Thomson, 2021-09-04 01:15:00 PM, [address] [facility], , [place], [address], Insurance Providers Payer Name Payer Address Payer Phone Insured Name Patient Relati onship to Insured Coverage Start Date Coverage End Date [facility] [address] [facility] [phone] DEANNA AN self
--- OUTSIDE RECORDS SUMMARY | 2021-08-10 14:25 | CCD | Continuity of Care Document ---
Author Author Rinku XIE PA-C Organization Unknown Address [address] [place] [address] Phone [phone] Care Team Providers Care Volunteer Coordinator Name Role Phone Lolis Choudhary FIXED ROUTE BUS OPERATOR-C AUTM [phone] [facility] - [phone] AUTM Damaso Hampton MD AUTM [phone] Problems Description No Active Problems Social History [...] every 4- 6 hours for pain 30tabs Richrad Xie MD 08/01/2020 Gabapentin 600mg Tablets Take [...] Information Available Procedures Date Code Description Status 06/21/2021 31050 Office/Outpatient Established Mo d MDM 30-39 Min Completed 06/12/2021 74041 Office/Outpatient Established Lo w MDM 20-29 Min Completed 06/12/2021 39880 X-Ray Hand Three Views Completed 05/21/2021 94117 Office/Outpatient Established Lo w MDM 20-29 Min Completed 05/21/2021 32632 X-Ray Hand Three Views Completed 05/21/2021 41287 Apply Cast Short Arm Completed 03/20/2021 41856 Office/Outpatient Established Lo w MDM 20-29 Min Completed 02/21/2021 83659 Office/Outpatient Established Mo d MDM 30-39 Min Completed Medical Devices Description No Information Available Encounters Type Date Location Provider Dx Diagnosis Office Visit 06/21/2021 3:30p [place] Aidee Lopez. JODI Xie S67.02x D Crushing injury of left thumb, subsequent encounter M18.12 Unil primary osteoarth of fi rst carpometacarp joint, l hand Office Visit 05/21/2021 2:45p [place] Marielena Rivera PA-C S6 7.02xA Crushing injury of left thumb, initial encounter M18.12 Unil primary osteoarth of fi rst carpometacarp joint, l hand M17.12 Unilateral primary osteoarth ritis, left knee Office Visit 02/21/2021 3:45p [place] Marielena Rivera PA-C M7 5.111 Incomplete rotatr-cuff tear/ruptr of r shoulder, not trauma M19.011 Primary osteoarthritis, righ t shoulder Assessments Date Code Description Provider 06/21/2021 S67.02xD Crushing injury of left thumb, s ubsequent encounter Aidee Lopez. JODI Xie 06/21/2021 M18.12 Unilateral primary o steoarthritis of first carpometacarpal joint, left hand Aidee L. KRYSTA XieC 06/19/2021 S67.02xD Crushing injury of left thumb, s ubsequent encounter Aidee L. KRYSTA XieC 06/19/2021 M18.12 Unilateral primary o steoarthritis of first carpometacarpal joint, left hand Aidee L. KRYSTA XieC 06/12/2021 S67.02xD Crushing injury of left thumb, s ubsequent encounter Aidee L. KRYSTA XieC 06/12/2021 S67.02xD Crushing injury of left thumb, s ubsequent encounter Aidee L. KRYSTA XieC 06/12/2021 M18.12 Unilateral primary o steoarthritis of first carpometacarpal joint, left hand Aidee L. KRYSTA XieC 06/12/2021 M18.12 Unilateral primary o steoarthritis of first carpometacarpal joint, left hand Aidee L. KRYSTA XieC 05/21/2021 M17.12 Unilateral primary osteoarthriti s, left [...] Ahuja, P.A. 03/20/2021 M19.011 Primary osteoarthritis, right sh oulder Enrique Ahuja, P.ACristina 02/21/2021 M75.111 Incomplete rotator c uff tear or rupture of right shoulder, not specified as traumatic Marielena Rivera PA-C 02/21/2021 M19.011 Primary osteoarthritis, right sh mo Marielena Rivera PA-C Plan of Treatment Future Appointment(s):* 07/24/2021 8:45 am - Marielena Rivera PA-C at [place] * 07/19/2021 1:00 pm - Aidee Xie PA-C at [place] Functional Status Description No Information Available Mental Status Description No Information Available Referrals Refer to Dr Reason for Referral Status Appt Date Aidee Xie PA-C MRI APPROVED PER [facility] FOR MRI OF LEFT HAND (20162) TO TRIAGE. DG Created [facility] [address] [address] [phone] Efrain Vidal MD M79.645 PAIN IN LEFT FINGER(S) Created [facility], [address] [place] [address] [phone] Marielena Rivera PA-C FLUORO INJ NO AUTH REQUIRED PER [facility] FOR FLUOROSCOPIC INJECTION TO RIGHT SHOULDER (40448, 03424) TO VICENTE S. DG Created [address] [place] [address] [phone] Marielena Rivera PA-C SURGERY PER [facility] NO AU TH REQUIRED FOR LEFT KNEE SURGERY (38911) TO SURGERY NT Created [address] [place] [address] [phone] Marielena Rivera PA-C OV - M47.817 LOW BACK Created [address] [place] [address] [phone] Richard Xie MD OV - M17.12 LT KNEE Created [address] [place] [address] [phone] Enrique Ahuja PA OV M47.817 BACK Created [address] [place] [address] [phone] Efrain Vidal MD OV M75.471 RT SHLDR Created [address] [place] [address] [phone] Marielena Rivera PA-C OV M20.41 RT TOE Created [address] [place] [address] [phone] Marielena Rivera PA-C MRI ARTHRO APPROVED PER [facility] FOR MRI ARTHROGRAM OF RIGHT SHOULDER (24822) TO VICENTE Meade DG Created [address] [place] [address] [phone]
--- OUTSIDE RECORDS SUMMARY | 2021-08-10 14:25 | CCD | Continuity of Care Document ---
Author Author Rinku IRIZARRY DPM Organization Unknown Address [address] [place] [address], [address] [place] [address] Phone [phone] Care Team Providers Care Hard Tile Setter Apprentice Name Role Phone Ashley Cano, Bladimir AUTM [phone] YAMILE Noe AUTM [phone] Kent THELMA, Lolis AUTM [phone] [facility] Problems Active Problems Provider Date [...] 1 tab days 10 and 11 32tabs Dylna Irizarry, [facility] 02/13/20 - 03/20/2021 Medications Administered in Office Medication SIG Qnty Indications Ordering Provider Date Inject Triamcinolone Acetonide 10 ML, ND C 4908-5279-94 Injection Dylan barnes, [facility] 06/04/2021 Inject Dexamthosone Phosphate 99185-103- 30 Injection Dylan Irizarry, [facility] 021 Inject Triamcinolone Acetonide 10 ML, ND C 7527-4034-99 Injection Dylan barnes, [facility] 02/26/2021 Inject Dexamthosone Phosphate 30596-328- 30 Injection Dylan Irizarry, [facility] 021 Inject Triamcinolone Acetonide 10 ML, ND C 2720-0634-98 Injection Dylan barnes, [facility] 01/25/2018 Inject Dexamthosone Phosphate 82631-066- 30 Injection Dylan Irizarry, [facility] 018 Inject Triamcinolone Acetonide 10 ML, ND C 1533-4973-71 Injection Dylan barnes, [facility] 03/13/2017 Inject Dexamthosone Phosphate 09925-927- 30 Injection Dylan Irizarry, [facility] 017 Inject Triamcinolone Acetonide 10 ML, ND C 8654-6788-09 Injection Dylan barnes, [facility] 02/06/2017 Inject Dexamthosone Phosphate 24992-976- 30 Injection Dylan Irizarry, [facility] 017 Inject Dexamthosone Phosphate 47484-593- 30 Injection Dylan Irizarry, [facility] 016 Inject Triamcinolone Acetonide 10 ML, ND C 0726-7609-25 Injection Hansel barnes, DP 02/14/2015 Inject Dexamthosone Phosphate 58902-216- 30 Injection Hansel Irizarry, DP 015 Inject Triamcinolone Acetonide 10 ML, ND C 9277-2882-93 Injection Hansel barnes, DP 07/03/2014 Inject Dexamthosone Phosphate 85881-177- 30 Injection Hansel Irizarry, DPM 014 Inject Triamcinolone Acetonide 10 ML, ND C 1504-7146-33 Injection Hansel barnes, DPM 06/08/2014 Inject Dexamthosone Phosphate 95280-352- 30 Injection Hansel Irizarry, DPM 014 Immunizations Description No Information [...] Available Procedures Date Code Description Status 07/02/2021 47358 Office/Outpatient Established SF MDM 10-19 Min Completed 06/04/2021 02487 Office/Outpatient Established SF MDM 10-19 Min Completed 06/04/2021 18353 Inject Tendon/Ligament/Cyst Comp leted 05/02/2021 95918 Office/Outpatient Established Lo w MDM 20-29 Min Completed 04/18/2021 29704 Office/Outpatient Established SF MDM 10-19 Min Completed 03/20/2021 35605 Office/Outpatient Established SF MDM 10-19 Min Completed 03/20/2021 13406 X-Ray Foot Complete Completed 03/12/2021 43385 Office/Outpatient Established SF MDM 10-19 Min Completed 02/26/2021 46922 Office/Outpatient Established SF MDM 10-19 Min Completed 02/26/2021 42297 Inject Tendon/Ligament/Cyst Comp leted 02/12/2021 26060 Office/Outpatient Established SF MDM 10-19 Min Completed 02/12/2021 94019 Strapping Foot Or Ankle Complete d 02/01/2021 60661 Office/Outpatient Established SF MDM 10-19 Min Completed Medical Devices Description No Information Available Encounters Type Date Location Provider Dx Diagnosis Office Visit 07/02/2021 10:45a [place] [facility] Dylan Irizarry, DPM M67.00 Short Achilles tendon (acquired), unspecified ankle M65.879 Other synovitis and tenosyno vitis, unsp ankle and foot Office Visit 06/04/2021 11:00a [place] [facility] Dylan Irizarry DPM M65.871 Other synovitis and tenosynovitis, right ankle and foot Office Visit 05/02/2021 10:30a [place] [facility] Dylan Irizarry DPM S93.401D Sprain of unspecified ligament of right ankle, subs encntr M21.6x1 Other acquired deformities o f right foot Office Visit 04/18/2021 11:15a [place] [facility] Dylan Irizarry DPM S93.401D Sprain of unspecified ligament of right ankle, subs encntr Office Visit 03/20/2021 1:00p [place] [facility] Dylan Irizarry DPM S93.401D Sprain of unspecified ligament of right ankle, subs encntr M65.871 Other synovitis and tenosyno vitis, right ankle and foot Office Visit 03/12/2021 10:30a [place] [facility] Dylan Irizarry DPM S93.401D Sprain of unspecified ligament of right ankle, subs encntr M65.871 Other synovitis and tenosyno vitis, right ankle and foot Office Visit 02/26/2021 10:30a [place] [facility] Dylan Irizarry DPM S93.402D Sprain of unspecified ligament of left ankle, subs encntr M65.872 Other synovitis and tenosyno vitis, left ankle and foot Office Visit 02/12/2021 11:00a [place] [facility] Dylan Irizarry DPM M72.2 Plantar fascial fibromatosis M21.6x1 Other acquired deformities o f right foot Office Visit 02/01/2021 11:15a [place] [facility] Dylan Irizarry DPM M20.40 Other hammer toe(s) (acquired), unspecified foot L84 Corns and callosities Assessments Date Code Description Provider 07/02/2021 M67.00 Short Achilles tendon (acquired) , unspecified ankle Dylan Irizarry DPM 07/02/2021 M65.879 Other synovitis and tenosynovitis, unspecified ankle and foot Dylan Irizarry, DPM 06/04/2021 M65.871 Other synovitis and tenosynoviti s, right ankle and foot Dylan Irizarry, DPM 05/02/2021 S93.401D Sprain of unspecifie d ligament of right ankle, subsequent encounter Dylan Irizarry, DPM 05/02/2021 M21.6x1 Other acquired deformities of [...] s, left ankle and foot Dylan Irizarry, DPM 02/12/2021 M72.2 Plantar fascial fibromatosis And junior Irizarry, DPM 02/12/2021 M21.6x1 Other acquired deformities of ri ght foot Dylan Irizarry, YAMILE 02/01/2021 M20.40 Other hammer toe(s) (acquired), unspecified foot Dylan Irizarry, [place] 02/01/2021 L84 Corns and callosities Dylan Irizarry DPM Plan of Treatment Future Appointment(s):* 09/10/2021 10:45 am - Dylan Irizarry DPM at [place] [facility] Functional Status Description No Information Available Mental Status Description No Information Available Referrals Refer to Reason for Referral Status Appt Date Dylan Irizarry DPM Created [address] [id number] [phone] Dylan Irizarry DPM Created [address] [id number] [phone]
--- OUTSIDE RECORDS SUMMARY | 2021-08-10 14:25 | CCD ---
Author Author [facility] Organization [facility] Syst ems Address Unknown Phone Unavailable Care Team Providers Care Content Designer Name Role Phone Debbie Thomson Unavailable PROBLEMS Type Condition ICD9-CM Code [id number] Code Onset Dates Condition S tatus W/U Status Risk SNOMED Code Notes Problem Anxiety disorder, unspecified F41.9 Active confirm ed 157433413 Problem Intervertebral disc disorder with radiculopathy of lumbar region M51.16 Active confirmed 17582473 Problem Obesity, unspecified E66.9 Active confirmed 51878054787496 Problem 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 Active confirmed 82540 01 Problem Disc displacement, 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 Active confirmed 349174143154987 Problem Seborrheic keratoses L82.1 Active confirmed 521277689 Problem Sebaceous hyperplasia L73.8 Active confirmed 282537934 Problem Spondylosis without myelopathy or radiculopathy, lumbosacral region M47.817 Active confirmed 76661137 Problem Depression F32.9 Active confirmed 03319805 Problem Bilateral serous otitis media, unspecified chronicity H65.93 Active confirmed 64606363 Problem Allergic rhinitis J30.9 Active confirmed 61 339840 Problem Essential hypertension I10 Active confirmed 17507148 Problem Coronary artery disease invo lving [place] coronary artery of [place] heart, angina presence unspecified I25.10 Active confirmed 3090932470486 Problem Stage 3 chronic kidney disease N18.3 Active confir med 163734943 Problem Celiac disease K90.0 Active confirmed 35621 1005 Problem Obstructive sleep apnea on CPAP G47.33 Active confi rmed 98709368 Problem CKD (chronic kidney disease), stage III N18.3 Active confirmed 271155285 Problem Hyperlipidemia E78.5 Active confirmed 92933 004 Problem Hypothyroidism, unspecified type E03.9 Active conf irmed 16708050 Problem Dysfunction of both eustachian tubes H69.83 Act forrest confirmed 65858212 Problem Gastroesophageal reflux disease with esophagitis K 21.0 Active confirmed 086643062 Problem Carpal tunnel syndrome of right wrist G56.01 Ac tive confirmed 40789103 Problem Granuloma annulare L92.0 Active confirmed 6 8069750 Problem Wound of right buttock, initial encounter S31.819A Active confirmed 630512708 Problem Sacroiliitis M46.1 Active confirmed 4477450 9 Problem Unspecified open wound of right buttock, subsequ ent encounter S31.819D Active confirmed 88688263231191887 Problem Arthritis of lumbosacral spine M47.817 Active confi rmed 329394909 Problem 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 Active confirmed 669548669 Problem Allergic contact dermatitis, unspecified trigger L 23.9 Active confirmed 327932184 Problem Melanocytic nevi of trunk D22.5 Active confirmed 751501553 Problem Spondylosis of lumbar region without myelopathy or radiculopathy M47.816 Active confirmed 067050793 Problem Inflammation of both ear canals H60.93 Active confi rmed 5182917 Problem Other chronic pain G89.29 Active confirmed 8 6625663 Problem Other hammer toe(s) (acquired), right foot M20.41 Active confirmed 79962555 Problem Liver cyst K76.89 Active confirmed 80651996 ALLERGIES Allergen (clinical drug ingredient) Drug/Non Drug Allergy do cumented on EMR Reaction Allergy Type Onset Date Status Latex Latex Rash Drug Allergy Active Gluten Gluten Rash Drug Allergy Active Adhesive Tape rash Drug Allergy Active Codeine Phosphate (For Allergies Use Only) Nausea/Vomiting Drug Allergy Active ENCOUNTERS from 1967 to 2021-07-23 Encounter Location Date Provider Diagnosis [facility] Dermatology [address] [place] [address] [place] [address] Jul, Debbie Berto Granuloma annulare L92.0 and Allergic contact dermatitis, unspecified trigger L23.9 IMMUNIZATIONS Vaccine Route Administration Date Status COVID-19 [...] Education Language: Question Answer Notes Languages spoken: Mongolian Church: Question Answer Notes Church 21 Mormon No hinduism beliefs that would impact health care. Drug [...] FOR REFERRAL No Information VITAL SIGNS Weight 312.0 lbs Jul, Height 68 in Jul, BMI 47.43 kg/m2 Jul, Blood pressure systolic 132 mm Hg Jul, Blood pressure diastolic 84 mm Hg Jul, MEDICATIONS Medication SIG (Take, Route, Frequency, Duration) [...] BY MOUTH TWICE DAILY Orally bid Active Tvhppcdi-Sxnfsvnki-OZ 3.5-31379-4 4 drops into affecte d ear Otic Three times a day for 7 day(s) Mar, Active Topiramate 50 MG with a 25 mg tab for total of 75 mgs Orally @ 1700 Active [place] Saline Nasal - USE DIRECTED DAILY FOUR [...] Information RESULTS No Results REASON FOR VISIT rash f/u MEDICAL (GENERAL) HISTORY Type Description Date Medical History Depression/Anxiety- Dr Enriquez. /therapist Q2 weeks Medical History Hyperlipidemia Medical History GERD with Barretts: Repeat EGD in 8 Medical History vitamin d def Medical History FRAN: following with Pulmonol ogy: compliant with CPAP-pulmonology Medical History CAD: Bypass with autologous vein: Dr. Shelley munguia at [facility] Medical History ECHO 10/17/2016. Hypertensive heart [...] 03/31/16 Surgical History CABG- 4 vessel at [place] 11/11/16 Surgical History Left hand CP sx, and tendon removal. Bone and joint center [facility] 01/2018 Surgical History Upper Endoscopic [...] knee diagnostic arthroscopy-Dr. Merrill 03/07/2021 Hospitalization History [facility] Psych herscher- Depression/A nxiety 14 yo Hospitalization History [facility] [place]- depre ssion 18 yo Hospitalization History Father Verenice- [facility]- ezequiel d facilty- tx of depression. [age]yo Hospitalization History Hemorrhoidectomy with remova l of a mixed hemorrhoidal bundles at the left lateral and right anterior and posterior positions. 01/11/2016 Hospitalization History CABG: [facility] 11/11/16 Hospitalization History Rehab [facility] 11/21 Hospitalization History POST RIGHT HAND HAND AND ELBOW SURGE RY 10/2019 Hospitalization History [facility] ED- Post-op problem, left foot c ellulitis 08/03/2020 Hospitalization History Right Ulnar Nerve 01/2020 Hospitalization History [facility] ED-AMA 01/21/2021 Hospitalization History [facility] ED-Right shoulder injury 021 Hospitalization History [facility] ED-Right foot pain 02/05/2021 Hospitalization History [facility] ED-Right ankle pain 02/19/2021 Hospitalization History [facility] ED-Right foot pain 02/22/2021 Hospitalization History [facility] ileus, small bowel obstruction Hospitalization History [facility] - partial small bowel obstructio n 03/09/21 Hospitalization History [facility] - atypical chest pains 03/2021 Goals Section No Information Health Concerns No Information MEDICAL EQUIPMENT No Information MENTAL STATUS No Information FUNCTIONAL STATUS No Information ASSESSMENTS Encounter Date Diagnosis Assessment Notes Treatment Notes Treatm ent Clinical Notes Jul, Granuloma annulare (ICD-10 - L92.0) Improved with ILK at [facility]. No additional treatment required today Jul, Allergic contact dermatitis, unspecified trigger (ICD-10 - L23.9) Mild cleansers and moisturizers (sampled given). Add hydroxyzine nightly. PLAN OF TREATMENT Medication Medication Name Sig Start Date Stop Date hydrOXYzine HCl 25 MG 1 tablet 30 at bedtime for 30 day(s) 2020 Treatment Notes Assessment Notes Clinical Notes Granuloma annulare Improved with ILK at [facility]. No additional treatment required today Allergic contact dermatitis, unspecified trigger Mild cleansers and moisturizers (sampled given). Add hydroxyzine nightly. Next Appt Details 6 Weeks Reason:Rash Provider Name:García Helm, 2021-08-02 10:00:00 AM, [address], , [place], [address], Provider Name:Lolis Choudhary, 2021-08-08 10:3 0:00 AM, [address] [facility], , [place], [address], Provider Name:Debbie Thomson, 2021-09-04 01:15:00 PM, [address] [facility], , [place], [address], Follow Up:6 WeeksRash Insurance Providers Payer Name Payer Address Payer Phone Insured Name Patient Relati onship to Insured Coverage Start Date Coverage End Date COUNTS INCLUDE 234 BEDS AT THE [facility] [address] [facility] [phone] DEANNA AN self
--- OUTSIDE RECORDS SUMMARY | 2021-08-10 14:25 | CCD ---
Author Author [facility] Organization [facility] Address Unknown Phone Unavailable Care Team Providers Care Candy Dipper Hand Name Role Phone Lolis Choudhary Unavailable PROBLEMS Type Condition ICD9-CM Code [id number] Code Onset Dates Condition S tatus W/U Status Risk SNOMED Code Notes Problem Anxiety disorder, unspecified F41.9 Active confirm ed 573469565 Problem Intervertebral disc disorder with radiculopathy of lumbar region M51.16 Active confirmed 42805445 Problem Obesity, unspecified E66.9 Active confirmed 91822480103884 Problem 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 Active confirmed 41498 01 Problem Disc displacement, 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 Active confirmed 440853064274019 Problem Seborrheic keratoses L82.1 Active confirmed 755335333 Problem Sebaceous hyperplasia L73.8 Active confirmed 603226368 Problem Spondylosis without myelopathy or radiculopathy, lumbosacral region M47.817 Active confirmed 39084397 Problem Depression F32.9 Active confirmed 46412087 Problem Bilateral serous otitis media, unspecified chronicity H65.93 Active confirmed 20755487 Problem Allergic rhinitis J30.9 Active confirmed 61 410430 Problem Essential hypertension I10 Active confirmed 77059093 Problem Coronary artery disease invo lving [place] coronary artery of [place] heart, angina presence unspecified I25.10 Active confirmed 7787072342939 Problem Stage 3 chronic kidney disease N18.3 Active confir med 024028159 Problem Celiac disease K90.0 Active confirmed 98346 1005 Problem Obstructive sleep apnea on CPAP G47.33 Active confi rmed 63809706 Problem CKD (chronic kidney disease), stage III N18.3 Active confirmed 504295670 Problem Hyperlipidemia E78.5 Active confirmed 69196 004 Problem Hypothyroidism, unspecified type E03.9 Active conf irmed 67158127 Problem Dysfunction of both eustachian tubes H69.83 Act forrest confirmed 73358026 Problem Gastroesophageal reflux disease with esophagitis K 21.0 Active confirmed 447485163 Problem Carpal tunnel syndrome of right wrist G56.01 Ac tive confirmed 28197170 Problem Granuloma annulare L92.0 Active confirmed 6 1169075 Problem Wound of right buttock, initial encounter S31.819A Active confirmed 107059652 Problem Sacroiliitis M46.1 Active confirmed 3933561 9 Problem Unspecified open wound of right buttock, subsequ ent encounter S31.819D Active confirmed 18895504227756780 Problem Arthritis of lumbosacral spine M47.817 Active confi rmed 079312762 Problem 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 Active confirmed 442287872 Problem Allergic contact dermatitis, unspecified trigger L 23.9 Active confirmed 560604242 Problem Melanocytic nevi of trunk D22.5 Active confirmed 920670281 Problem Spondylosis of lumbar region without myelopathy or radiculopathy M47.816 Active confirmed 564087784 Problem Inflammation of both ear canals H60.93 Active confi rmed 8274448 Problem Other chronic pain G89.29 Active confirmed 8 8815592 Problem Other hammer toe(s) (acquired), right foot M20.41 Active confirmed 80335977 Problem Liver cyst K76.89 Active confirmed 07638813 ALLERGIES Allergen (clinical drug ingredient) Drug/Non Drug Allergy do cumented on EMR Reaction Allergy Type Onset Date Status Latex (for allergy use only) Rash Drug Allergy Active Adhesive Tape rash Drug Allergy Active Gluten allergy Rash Non Drug Allergy Acti ve Codeine Phosphate (For Allergies Use Only) Nausea/Vomiting Drug Allergy Active ENCOUNTERS from 1967 to 2021-07-17 Encounter Location Date Provider Diagnosis [address] [phone] [place] [address] Jul, Lolis Choudhary IMMUNIZATIONS Vaccine Route Administration Date Status Influenza [...] Education Language: Question Answer Notes Languages spoken: [place] Islander Jain: Question Answer Notes Jain 21 Yarsanism No latter day beliefs that would impact health care. Drug [...] Notes Start Da te End Date Status Ondansetron HCl 8 MG 1 tablet as needed Orally th ree times daily only as needed for nausea or vomiting for 10 day(s) May, Active Escitalopram Oxalate 10 MG 1 tablet Oral Once a day along with a 20 mg tablet Active Omeprazole 40 MG TAKE ONE CAPSULE BY MOUTH @8AM ON AN EMPTY STOMACH O ral Active Levothyroxine Sodium 25 MCG TAKE ONE TABLET BY MOUTH @8AM for 28 Active Aspirin 81 MG 1 tablet Orally Once a day Aug, Active Gabapentin 600 MG TAKE ONE TABLET BY MOUTH @8A M and TAKE ONE TABLET @12PM and TAKE ONE TABLET @8PM Oral q8h TID for 30 Days Active Fluticasone Propionate 50 MCG/ACT instill ONE SPRAY IN EACH NOSTRIL TWICE DAILY NEEDED for 30 Active Famotidine 20 MG TAKE ONE TABLET BY MOUTH @8A M and TAKE ONE TABLET BY MOUTH @8PM Oral for 28 Active Docusate Sodium 100 MG TAKE ONE CAPSULE BY MOUTH @8AM for 28 Active traMADol HCl 50 MG 1 tablet as needed Orally q6h prn mdd4 for 30 Days Sep, Active Metoprolol Tartrate 25 mg 1/2 tab Oral Daily Active MiraLax 17 GM/SCOOP 17gm scoop mixed with water Orally Once a day as needed for 30 Days Mar, Active Cetirizine HCl 10 MG TAKE ONE TABLET BY MOUTH @5PM for 28 Active busPIRone HCl 10 MG TAKE ONE TABLET BY MOUTH @8A M and TAKE ONE TABLET @8PM Oral for 28 Active tiZANidine HCl 4 MG 1 tablet as needed Orally Th ree times a day NEEDED FOR SEVERE PAIN for 30 Days Active Betamethasone Dipropionate 0.05 % 1 application Attending Ambulatory Care ally Twice a day to rash on abdomen and back for 14 days Jun, Active Triamcinolone Acetonide 0.1 % 1 application Externally Twice a day to dorsal hands for 14 days May, Active Atorvastatin Calcium 40 MG Take 1 tablet By Mouth once a day for 90 Active Vitamin D 1000 UNIT 2 tablets with meal Orally Once a day for 90 day(s) Dec, Active Montelukast Sodium 10 MG TAKE ONE TABLET BY MOUTH @5PM for 28 Active Jywifluc-Wqepbpqco-MZ 3.5-68425-1 4 drops into affecte d ear Otic Three times a day for 7 day(s) Mar, Active Topiramate 50 MG with a 25 mg tab for total of 75 mgs Orally @ 1700 Active Multivitamin Adult - as directed Orally Dec, Active Ventolin HFA 108 (90 Base) MCG/ACT INHALE TWO PUFFS BY MOUTH EVERY FOUR HOURS NEEDED Inhalation - for 30 days 2 days ago Active Trihexyphenidyl HCl 2 MG TAKE ONE TABLET BY MOUTH TWICE DAILY Orally bid Active Lamar Saline Nasal - USE DIRECTED DAILY FOUR TIMES DAILY NEEDED for 20 Active PROCEDURES No Information RESULTS No Results REASON FOR VISIT Note for [facility] MEDICAL (GENERAL) HISTORY Type Description Date Medical History Depression/Anxiety- Dr Enriquez. /therapist Q2 weeks Medical History Hyperlipidemia Medical History GERD with Barretts: Repeat EGD in Medical History vitamin d def Medical History FRAN: following with Pulmonol ogy: compliant with CPAP-pulmonology Medical History CAD: Bypass with autologous vein: Dr. Shelley munguia at [facility] Medical History ECHO 10/17/2016. Hypertensive heart disea [...] Colonoscopy- internal hemorrhoid, polyp x 1- adenomatous 5/1/15 Surgical History Colonoscopy - 2 tubular stephen omas, mucosal ulceration, moderate diverticulosis in the sigmoid colon, external hemorrhoids. Repeat colonoscopy 5 yrs 10/13/17 Surgical History EGD- [facility] 02/02/15 Surgical History hemorrhoidectomy 4--16 Surgical History left foot bunionectomy with first metatarsal osteostomy-Dr. Chand 03/31/16 Surgical History CABG- 4 vessel at [place] 11/11/16 Surgical History Left hand CP sx, and tendon removal. Bone and joint center [facility] 01/2018 Surgical History Upper Endoscopic Ultrasound [...] knee diagnostic arthroscopy-Dr. Merrill 03/07/2021 Hospitalization History [facility]- Depression/A nxiety 14 yo Hospitalization History [facility] [place]- depre ssion 18 yo Hospitalization History Father Kel Shearer- ezequiel d facilty- tx of depression. [age]yo Hospitalization History Hemorrhoidectomy with remova l of a mixed hemorrhoidal bundles at the left lateral and right anterior and posterior positions. 01/11/2016 Hospitalization History CABG: [facility] 11/11/16 Hospitalization History Rehab [facility] 11/21 Hospitalization History POST RIGHT HAND HAND AND ELBOW SURGE RY 10/2019 Hospitalization History [facility] ED- Post-op problem, left foot c ellulitis 08/03/2020 Hospitalization History Right Ulnar Nerve 01/2020 Hospitalization History [facility] ED-AMA 01/21/2021 Hospitalization History [facility] ED-Right shoulder injury 021 Hospitalization History [facility] ED-Right foot pain 02/05/2021 Hospitalization History [facility] ED-Right ankle pain 02/19/2021 Hospitalization History [facility] ED-Right foot pain 02/22/2021 Hospitalization History [facility] ileus, small bowel obstruction Hospitalization History [facility] - partial small bowel obstructio n 03/09/21 Hospitalization History [facility] - atypical chest pains 03/2021 Goals Section No Information Health Concerns No Information MEDICAL EQUIPMENT No Information MENTAL STATUS No Information FUNCTIONAL STATUS No Information ASSESSMENTS No Information PLAN OF TREATMENT Medication Medication Name Sig Start Date Stop Date Betamethasone Dipropionate 0.05 % 1 application Attending Ambulatory Care ally Twice a day to rash on abdomen and back for 14 days Jun, Lamar Saline Nasal - USE DIRECTED DAILY FOUR TIMES DAILY NEE DED for 20 Montelukast Sodium 10 MG TAKE ONE TABLET BY MOUTH @5PM for 28 Cetirizine HCl 10 MG TAKE ONE TABLET BY MOUTH @5PM for 28 Next Appt Details Provider Name:Debbie Thomson, 2021-07-22 04:30:00 PM, [address] [facility], , [place], [address], Provider Name:Gauri Salcedo, 2021-07-23 11:15:00 AM, [facility] [phone], [place], [address], Provider Name:García Helm, 2021-08-02 10:00:00 AM, [address], , [place], [address], Provider Name:Lolis Choudhary, 2021-08-08 10:3 0:00 AM, [address] [facility] [phone], [place], [address], Insurance Providers Payer Name Payer Address Payer Phone Insured Name Patient Relati onship to Insured Coverage Start Date Coverage End Date [facility] [address] [facility] [phone] DEANNA AN self
--- OUTSIDE RECORDS SUMMARY | 2021-08-10 14:25 | CCD | Continuity of Care Document ---
Author Author Rinku OLIVER PA Organization Unknown Address [address] [facility] [place] [address] Phone [phone] Care Team Providers Care Hot Dimpling Machine Operator Name Role Phone Lolis Choudhary RIM TURNING MACHINE OPERATOR-C AUTM [phone] [facility] - [phone] AUTM Damaso Hampton MD AUTM [phone] Problems Description No Active Problems Social History [...] Available Procedures Date Code Description Status 07/03/2021 85238 Office/Outpatient Established Lo w MDM 20-29 Min Completed 06/21/2021 11699 Office/Outpatient Established Mo d MDM 30-39 Min Completed 06/12/2021 40523 Office/Outpatient Established Lo w MDM 20-29 Min Completed 06/12/2021 61511 X-Ray Hand Three Views Completed 05/21/2021 90355 Office/Outpatient Established Lo w MDM 20-29 Min Completed 05/21/2021 43251 X-Ray Hand Three Views Completed 05/21/2021 87947 Apply Cast Short Arm Completed 03/20/2021 02630 Office/Outpatient Established Lo w MDM 20-29 Min Completed 02/21/2021 90572 Office/Outpatient Established Mo d MDM 30-39 Min Completed Medical Devices Description No Information Available Encounters Type Date Location Provider Dx Diagnosis Office Visit 07/03/2021 1:45p [facility] FRANTZ Willingham S80.02xA Contusion of left knee, initial encounter M17.12 Unilateral primary osteoarth ritis, left knee Office Visit 06/21/2021 3:30p [facility] Aidee Pond PA-C S67.02x D Crushing injury of left thumb, subsequent encounter M18.12 Unil primary osteoarth of fi rst carpometacarp joint, l hand Office Visit 05/21/2021 2:45p [facility] Marielena Rivera PA-C S6 7.02xA Crushing injury of left thumb, initial encounter M18.12 Unil primary osteoarth of fi rst carpometacarp joint, l hand M17.12 Unilateral primary osteoarth ritis, left knee Office Visit 02/21/2021 3:45p [facility] Marielena Rivera PA-C M7 5.111 Incomplete rotatr-cuff [...] Ahuja, P.A. 03/20/2021 M19.011 Primary osteoarthritis, right [facility] Enrique Ahuja, P.A. 02/21/2021 M75.111 Incomplete rotator c uff tear or rupture of right shoulder, not specified as traumatic Marielena Rivera PA-C 02/21/2021 M19.011 Primary osteoarthritis, right [facility] Marielena Rivera PA-C Plan of Treatment Future Appointment(s):* 07/17/2021 4:15 pm - FRANTZ Willingham at [facility] * 07/24/2021 8:45 am - Marielena Rivera PA-C at [facility] * 07/19/2021 1:00 pm - Aidee LopezCristina JODI Pond at [facility] 07/03/2021 - FRANTZ [facility]* S80.02xA Contusion of left knee, initial encounter * M17.12 Unilateral primary osteoarthritis, left knee Functional Status Description No Information Available Mental Status Description No Information Available Referrals Refer to Reason for Referral Status Appt Date Aidee Pond PA-C MRI APPROVED PER [facility] WEB FOR MRI OF LEFT HAND (83715) TO TRIAGE. DG Created [address] [place] [address] [phone] Efrain Vidal MD M79.645 PAIN IN LEFT FINGER(S) Created [facility] [address] [phone] Marielena Rivera PA-C FLUORO INJ NO AUTH REQUIRED PER [facility] WEB FOR FLUOROSCOPIC INJECTION TO RIGHT SHOULDER (56356, 98267) TO VICENTE S. DG Created [place] [address] [phone] Marielena Rivera PA-C SURGERY PER [facility] WE[facility] NO AU TH REQUIRED FOR LEFT KNEE SURGERY (63933) TO SURGERY NT [place] [facility] [address] [phone] Marielena Rivera PA-C OV - M47.817 LOW BACK [place] [facility] [address] [phone] Richard Pond MD OV - M17.12 LT KNEE Created [facility] [place] [address] [phone] Enrique Ahuja PA OV M47.817 BACK [place] [facility] [address] [phone] Efrain Vidal MD OV M75.471 RT SHLDR Created [facility] [place] [address] [phone] Marielena Rivera PA-C OV M20.41 RT TOE [place] [address] [phone]
--- OUTSIDE RECORDS SUMMARY | 2021-08-10 14:25 | CCD ---
Author Author [employer] [facility] Syst ems Organization [facility] Syst ems Address Unknown Phone Unavailable Care Team Providers Care Special Distribution Clerk Name Role Phone García Helm Unavailable PROBLEMS Type Condition ICD9-CM Code [id number] Code Onset Dates Condition S tatus W/U Status Risk SNOMED Code Notes Problem Anxiety disorder, unspecified F41.9 Active confirm ed 972259690 Problem Intervertebral disc disorder with radiculopathy of lumbar region M51.16 Active confirmed 74956753 Problem Obesity, unspecified E66.9 Active confirmed 05019023336134 Problem 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 Active confirmed 75272 01 Problem Disc displacement, 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 Active confirmed 440820246964769 Problem Seborrheic keratoses L82.1 Active confirmed 434061552 Problem Sebaceous hyperplasia L73.8 Active confirmed 105497902 Problem Spondylosis without myelopathy or radiculopathy, lumbosacral region M47.817 Active confirmed 71095985 Problem Depression F32.9 Active confirmed 18306313 Problem Bilateral serous otitis media, unspecified chronicity H65.93 Active confirmed 33657828 Problem Allergic rhinitis J30.9 Active confirmed 61 538548 Problem Essential hypertension I10 Active confirmed 13599615 Problem Coronary artery disease invo lving [place] coronary artery of [place] heart, angina presence unspecified I25.10 Active confirmed 0680196114749 Problem Stage 3 chronic kidney disease N18.3 Active confir med 729404190 Problem Celiac disease K90.0 Active confirmed 64193 1005 Problem Obstructive sleep apnea on CPAP G47.33 Active confi rmed 72705290 Problem CKD (chronic kidney disease), stage III N18.3 Active confirmed 109245302 Problem Hyperlipidemia E78.5 Active confirmed 62064 004 Problem Hypothyroidism, unspecified type E03.9 Active conf irmed 19238057 Problem Dysfunction of both eustachian tubes H69.83 Act forrest confirmed 39069659 Problem Gastroesophageal reflux disease with esophagitis K 21.0 Active confirmed 627475116 Problem Carpal tunnel syndrome of right wrist G56.01 Ac tive confirmed 40971520 Problem Granuloma annulare L92.0 Active confirmed 6 5096203 Problem Wound of right buttock, initial encounter S31.819A Active confirmed 972825703 Problem Sacroiliitis M46.1 Active confirmed 7029390 9 Problem Unspecified open wound of right buttock, subsequ ent encounter S31.819D Active confirmed 64856426149643449 Problem Arthritis of lumbosacral spine M47.817 Active confi rmed 325515647 Problem 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 Active confirmed 294714418 Problem Allergic contact dermatitis, unspecified trigger L 23.9 Active confirmed 443411588 Problem Melanocytic nevi of trunk D22.5 Active confirmed 109680672 Problem Spondylosis of lumbar region without myelopathy or radiculopathy M47.816 Active confirmed 817450743 Problem Inflammation of both ear canals H60.93 Active confi rmed 1039292 Problem Other chronic pain G89.29 Active confirmed 8 5580772 Problem Other hammer toe(s) (acquired), right foot M20.41 Active confirmed 59633488 Problem Liver cyst K76.89 Active confirmed 11918740 ALLERGIES Allergen (clinical drug ingredient) Drug/Non Drug Allergy do cumented on EMR Reaction Allergy Type Onset Date Status Latex (for allergy use only) Rash Drug Allergy Active Adhesive Tape rash Drug Allergy Active Gluten allergy Rash Non Drug Allergy Acti ve Codeine Phosphate (For Allergies Use Only) Nausea/Vomiting Drug Allergy Active ENCOUNTERS from 1967 to 2021-07-12 Encounter Location Date Provider Diagnosis [facility] [address] Floor [phone] [place] [address] 08 Jul, 2021 García Helm IMMUNIZATIONS Vaccine Route Administration Date [...] Education Language: Question Answer Notes Languages spoken: Finnish Adventism: Question Answer Notes Adventism 21 Christianity No druze beliefs that would impact health care. Drug [...] Notes Start Da te End Date Status Fluticasone Propionate 50 MCG/ACT instill ONE SPRAY IN EACH NOSTRIL TWICE DAILY NEEDED for 30 Active Cetirizine HCl 10 MG 1 tablet Orally once daily for 28 Active Ondansetron HCl 8 MG 1 tablet as needed Orally th ree times daily only as needed for nausea or vomiting for 10 day(s) May, Active Escitalopram Oxalate 10 MG 1 tablet Oral Once a day along with a 20 mg tablet Active Docusate Sodium 100 MG TAKE ONE [...] BY MOUTH @8PM Oral for 28 Active Triamcinolone Acetonide 0.1 % 1 application Externally Twice a day to dorsal hands for 14 days May, Active traMADol HCl 50 MG 1 tablet as needed Orally q6h prn mdd4 for 30 Days Sep, Active Metoprolol Tartrate 25 mg 1/2 tab Oral Daily Active MiraLax 17 GM/SCOOP 17gm scoop mixed with water Orally Once a day as needed for 30 Days Mar, Active Montelukast Sodium 10 MG 1 tablet Orally Once a day for 28 Active Atorvastatin Calcium 40 MG Take 1 tablet By Mouth once a day for 90 Active tiZANidine HCl 4 MG 1 tablet as needed Orally Th ree times a day NEEDED FOR SEVERE PAIN for 30 Days Active Betamethasone Dipropionate 0.05 % 1 application Vp [employer] ally Twice a day to rash on abdomen and back for 14 days Jun, Active busPIRone HCl 10 MG TAKE ONE TABLET BY MOUTH @8A M and TAKE ONE TABLET @8PM Oral for Active Levothyroxine Sodium 25 MCG TAKE ONE TABLET BY MOUTH @8AM for 28 Active Vitamin D 1000 UNIT 2 tablets with meal Orally Once a day for 90 day(s) Dec, Active Omeprazole 40 MG TAKE ONE CAPSULE BY MOUTH @8AM ON AN EMPTY STOMACH O ral Active Euwmqzwz-Hfheseufs-VC 3.5-32996-9 4 drops into affecte d ear Otic [...] BY MOUTH TWICE DAILY Orally bid Active Randolph Saline Nasal - USE DIRECTED DAILY FOUR [...] with autologous vein: Dr. Shelley munguia at [facility] Medical History ECHO 10/17/2016. Hypertensive heart [...] 03/31/16 Surgical History CABG- 4 vessel at [place] [facility] 11/11/16 Surgical History Left hand CP sx, and tendon removal. [facility] 01/2018 Surgical History Upper Endoscopic Ultrasound with [...] knee diagnostic arthroscopy-Dr. Merrill 03/07/2021 Hospitalization History [facility]- Depression/A nxiety 14 yo Hospitalization History [facility]- [facility]- depre ssion 18 yo Hospitalization History Father Kel Shearer- ezequiel d facilty- tx of depression. [age]yo Hospitalization History Hemorrhoidectomy with remova l of a mixed hemorrhoidal bundles at the left lateral and right anterior and posterior positions. 01/11/2016 Hospitalization History CABG: [facility] 11/11/16 Hospitalization History Rehab [facility] 11/21 Hospitalization History POST RIGHT HAND HAND AND ELBOW SURGE RY 10/2019 Hospitalization History [facility] ED- Post-op problem, left foot c ellulitis 08/03/2020 Hospitalization History Right Ulnar Nerve 01/2020 Hospitalization History [facility] ED-AMA 01/21/2021 Hospitalization History [facility] ED-Right shoulder injury 021 Hospitalization History [facility] ED-Right foot pain 02/05/2021 Hospitalization History [facility] ED-Right ankle pain 02/19/2021 Hospitalization History [facility] ED-Right foot pain 02/22/2021 Hospitalization History [facility] ileus, small bowel obstruction Hospitalization [...] Date Betamethasone Dipropionate 0.05 % 1 application [employer] ally Twice a day to rash on abdomen and back for 14 days Jun, Randolph Saline Nasal - USE DIRECTED DAILY FOUR TIMES DAILY NEE DED for 20 Next Appt Details Provider Name:Debbie Thomson, 2021-07-22 04:30:00 PM, [address] [place] [address], , [place], [place], [facility] [phone] Provider Name:Gauri Salcedo, 2021-07-23 11:15:00 AM, [address] [place] [address], , [place], [address], Provider Name:García Helm, 2021-08-02 10:00:00 AM, [address], , [place], [address], Provider Name:Lolis Choudhary, 2021-08-08 10:3 0:00 AM, [facility], , [place], [address], Insurance Providers Payer Name Payer Address Payer Phone Insured Name Patient Relati onship to Insured Coverage Start Date Coverage End Date [facility] COMMUNITY PLAN [facility] [address] [facility] [phone] DEANNA AN self
--- OUTSIDE RECORDS SUMMARY | 2021-08-10 14:26 | CCD ---
Author Author [employer] Syst ems Organization [facility] Syst ems Address Unknown Phone Unavailable Care Team Providers Care Degreasing Solution Reclaimer Name Role Phone Maribell Black Unavailable PROBLEMS Type Condition ICD9-CM Code FSQ90-FI Code Onset Dates Condition S tatus W/U Status Risk SNOMED Code Notes Problem Anxiety disorder, unspecified F41.9 Active confirm ed 430004738 Problem Intervertebral disc disorder with radiculopathy of lumbar region M51.16 Active confirmed 31012809 Problem Obesity, unspecified E66.9 Active confirmed 41727699791331 Problem 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 Active confirmed 46563 01 Problem Disc displacement, 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 Active confirmed 219284546959277 Problem Seborrheic keratoses L82.1 Active confirmed 835095122 Problem Sebaceous hyperplasia L73.8 Active confirmed 560834764 Problem Spondylosis without myelopathy or radiculopathy, lumbosacral region M47.817 Active confirmed 21908923 Problem Depression F32.9 Active confirmed 91428042 Problem Bilateral serous otitis media, unspecified chronicity H65.93 Active confirmed 23733902 Problem Allergic rhinitis J30.9 Active confirmed 61 567973 Problem Essential hypertension I10 Active confirmed 74313465 Problem Coronary artery disease invo lving [place] coronary artery of [place] heart, angina presence unspecified I25.10 Active confirmed 9844152567730 Problem Stage 3 chronic kidney disease N18.3 Active confir med 818025689 Problem Celiac disease K90.0 Active confirmed 46908 1005 Problem Obstructive sleep apnea on CPAP G47.33 Active confi rmed 54705879 Problem CKD (chronic kidney disease), stage III N18.3 Active confirmed 933983439 Problem Hyperlipidemia E78.5 Active confirmed 86317 004 Problem Hypothyroidism, unspecified type E03.9 Active conf irmed 14914677 Problem Dysfunction of both eustachian tubes H69.83 Act forrest confirmed 57921372 Problem Gastroesophageal reflux disease with esophagitis K 21.0 Active confirmed 886848452 Problem Carpal tunnel syndrome of right wrist G56.01 Ac tive confirmed 50884909 Problem Granuloma annulare L92.0 Active confirmed 6 9124044 Problem Wound of right buttock, initial encounter S31.819A Active confirmed 463992528 Problem Sacroiliitis M46.1 Active confirmed 2901493 9 Problem Unspecified open wound of right buttock, subsequ ent encounter S31.819D Active confirmed 31589864979011817 Problem Arthritis of lumbosacral spine M47.817 Active confi rmed 982080005 Problem 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 Active confirmed 364960799 Problem Allergic contact dermatitis, unspecified trigger L 23.9 Active confirmed 383371662 Problem Melanocytic nevi of trunk D22.5 Active confirmed 248565255 Problem Spondylosis of lumbar region without myelopathy or radiculopathy M47.816 Active confirmed 081402789 Problem Inflammation of both ear canals H60.93 Active confi rmed 9530160 Problem Other chronic pain G89.29 Active confirmed 8 0313921 Problem Other hammer toe(s) (acquired), right foot M20.41 Active confirmed 07436525 Problem Liver cyst K76.89 Active confirmed 97552745 ALLERGIES Allergen (clinical drug ingredient) Drug/Non Drug Allergy do cumented on EMR Reaction Allergy Type Onset Date Status Latex (for allergy use only) Rash Drug Allergy Active Adhesive Tape rash Drug Allergy Active Gluten allergy Rash Non Drug Allergy Acti ve Codeine Phosphate (For Allergies Use Only) Nausea/Vomiting Drug Allergy Active ENCOUNTERS from 1967 to 2021-07-01 Encounter Location Date Provider Diagnosis [facility] Dermatology [address] [facility] [phone] [place] [address] Jun, Maribell Rocki Granuloma annulare L92.0 and Allergic contact dermatitis, [...] IM Intramuscular Jul 08, 2018 Administered Influenza 6mo & up Fluzone IM Intramuscular Aug 16, 2013 Admi nistered Influenza 18 yrs & older Flublok IM Intramuscular Jun 29, 2020 Administered Influenza 18 yrs & older Flublok IM Intramuscular Jul 27, 2019 Administered Zoster 50mcg/0.5mL Shingrix Unknown December 21, 2018 Admi nistered Pneumococcal Adult 0.5mL Pneumovax 23 IM Intramuscular Jul 27 019 Administered Influenza 6mo & up Fluzone Unknown [...] Education Language: Question Answer Notes Languages spoken: [place]i Mandaen: Question Answer Notes Mandaen 21 Pentecostalism No taoist beliefs that would impact health care. 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 /therapist Q2 weeks Medical History Hyperlipidemia Medical History GERD with Barretts: Repeat EGD in Medical History vitamin d def Medical History FRAN: following with Pulmonol ogy: compliant with CPAP-pulmonology Medical History CAD: Bypass with autologous vein: Dr. Shelley munguia at [facility] Medical History ECHO 10/17/2016. Hypertensive heart [...] 03/31/16 Surgical History CABG- 4 vessel at [facility] 11/11/16 Surgical History Left hand CP sx, and tendon removal. Bone [facility] joint center [facility] 01/2018 Surgical History Upper Endoscopic [...] knee diagnostic arthroscopy-Dr. Merrill 03/07/2021 Hospitalization History [facility]- Depression/A nxiety 14 yo Hospitalization History [facility] [place]- depre ssion 18 yo Hospitalization History Father Kel Shearer- ezequiel d facilty- tx of depression. 18-18yo Hospitalization History Hemorrhoidectomy with remova l of a mixed hemorrhoidal bundles at the left lateral and right anterior and posterior positions. 01/11/2016 Hospitalization History CABG: [facility] 11/11/16 Hospitalization History Rehab [facility] 11/21 Hospitalization History POST RIGHT HAND HAND AND ELBOW SURGE RY 10/2019 Hospitalization History [facility] ED- Post-op problem, left foot c ellulitis 08/03/2020 Hospitalization History Right Ulnar Nerve 01/2020 Hospitalization History [facility] ED-AMA 01/21/2021 Hospitalization History [facility] ED-Right shoulder injury 021 Hospitalization History [facility] ED-Right foot pain 02/05/2021 Hospitalization History [facility] ED-Right ankle pain 02/19/2021 Hospitalization History [facility] ED-Right foot pain 02/22/2021 Hospitalization History [facility] ileus, small bowel obstruction Hospitalization History [facility] - partial small bowel obstructio n 03/09/21 Hospitalization History [facility] - atypical chest pains 03/2021 Goals Section No Information Health Concerns No Information MEDICAL EQUIPMENT No Information MENTAL STATUS No Information FUNCTIONAL STATUS No Information ASSESSMENTS Encounter Date Diagnosis Assessment Notes Treatment Notes Treatm ent Clinical Notes Jun, Granuloma annulare (ICD-10 - L92.0) Consent: The benefits, risks, and complications of intralesional Kenalog injection were thoroughly reviewed prior to carrying out the procedure. Specifically, the risk of skin atrophy which may be permanent was reviewed. It was also emphasized that multiple treatments may be necessary. # lesions injected: [ 1 ]. Kenalog concentration: [ 5 ] mg/cc. Sterile saline [ was ] used to reach this concentration [facility] for Kenalog 10: 7857-6313-46 Method:Area to be treated cleansed with chlorhexidine. Intralesional Kenalog at the concentration above was carefully injected into affected areas and sites massaged well to distribute the steroid evenly. Patient tolerated well. Total of [ 0.5 ] cc's injected today. Post-procedure:The patient was instructed to gently massage the treatment site(s). Should any problems occur the patient is to call the office immediately Jun, Allergic contact dermatitis, unspecified trigger (ICD-10 - L23.9) T/c allergy testing if not better at next visit PLAN OF TREATMENT Medication Medication Name Sig Start Date Stop Date Betamethasone Dipropionate 0.05 % 1 application Master Esthetician ally Twice a day to rash on abdomen and back for 14 days Jun, Treatment Notes Assessment Notes Clinical Notes Granuloma annulare Consent: The benefit s, risks, and complications of intralesional Kenalog injection were thoroughly reviewed prior to carrying out the procedure. Specifically, the risk of skin atrophy which may be permanent was reviewed. It was also emphasized that multiple treatments may be necessary.# lesions injected: [ 1 ].Kenalog concentration: [ 5 ] mg/cc. Sterile saline [ was ] used to reach this concentrationNDC for Kenalog 10: 2161-3712-50Zixkcm:Area to be treated cleansed with chlorhexidine. Intralesional Kenalog at the concentration above was carefully injected into affected areas and sites massaged well to distribute the steroid evenly. Patient tolerated well. Total of [ 0.5 ] cc's injected today.Post-procedure:The patient was instructed to gently massage the treatment site(s). Should any problems occur the patient is to call the office immediately Allergic contact dermatitis, unspecified trigger T/c allergy testing if not better at next visit Next Appt Details 4 Weeks (pt has appt)-recheck rash [place] n: Provider Name:Debbie Thomson, 2021-07-22 04:30:00 PM, [address] [facility], , [place], [place], [facility] [phone] Provider Name:García Helm, 2021-08-02 10:00:00 AM, [address], , [place], [address], Provider Name:Lolis Choudhary, 2021-08-08 10:3 0:00 AM, [address] [facility], , [place], [address], Insurance Providers Payer Name Payer Address Payer Phone Insured Name Patient Relati onship to Insured Coverage Start Date Coverage End Date [facility] COMMUNITY PLAN [facility] [address] [facility] [id number] DEANNA AN self
--- OUTSIDE RECORDS SUMMARY | 2021-08-10 14:26 | CCD ---
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 Active confirmed 49592 01 Problem Disc displacement, 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 Active confirmed 609527787308099 Problem Seborrheic keratoses L82.1 Active confirmed 956667035 Problem Sebaceous hyperplasia L73.8 Active confirmed 993902045 Problem Spondylosis without myelopathy or radiculopathy, lumbosacral region M47.817 Active confirmed 10427382 Problem Depression F32.9 Active confirmed 92331870 Problem Bilateral serous otitis media, unspecified chronicity H65.93 Active confirmed 29303295 Problem Allergic rhinitis J30.9 Active confirmed 61 993576 Problem Essential hypertension I10 Active confirmed 84831778 Problem Coronary artery disease invo lving [place] coronary artery of [place] heart, angina presence unspecified I25.10 Active confirmed 0173100317892 Problem Stage 3 chronic kidney disease N18.3 Active confir med 784181927 Problem Celiac disease K90.0 Active confirmed 92063 1005 Problem Obstructive sleep apnea on CPAP G47.33 Active confi rmed 25810359 Problem CKD (chronic kidney disease), stage III N18.3 Active confirmed 957094922 Problem Hyperlipidemia E78.5 Active confirmed 92944 004 Problem Hypothyroidism, unspecified type E03.9 Active conf irmed 03512878 Problem Dysfunction of both eustachian tubes H69.83 Act forrest confirmed 83181031 Problem Gastroesophageal reflux disease with esophagitis K 21.0 Active confirmed 752115798 Problem Carpal tunnel syndrome of right wrist G56.01 Ac tive confirmed 73511059 Problem Granuloma annulare L92.0 Active confirmed 6 2581562 Problem Wound of right buttock, initial encounter S31.819A Active confirmed 963129363 Problem Sacroiliitis M46.1 Active confirmed 6877342 9 Problem Unspecified open wound of right buttock, subsequ ent encounter S31.819D Active confirmed 90804770230630974 Problem Arthritis of lumbosacral spine M47.817 Active confi rmed 348489814 Problem 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 Active confirmed 484098071 Problem Allergic contact dermatitis, unspecified trigger L 23.9 Active confirmed 805381866 Problem Melanocytic nevi of trunk D22.5 Active confirmed 879209303 Problem Spondylosis of lumbar region without myelopathy or radiculopathy M47.816 Active confirmed 362629817 Problem Inflammation of both ear canals H60.93 Active confi rmed 1290771 Problem Other chronic pain G89.29 Active confirmed 8 0767482 Problem Other hammer toe(s) (acquired), right foot M20.41 Active confirmed 03909966 Problem Liver cyst K76.89 Active confirmed 19020102 ALLERGIES Allergen (clinical drug ingredient) Drug/Non Drug Allergy do cumented on EMR Reaction Allergy Type Onset Date Status Latex (for allergy use only) Rash Drug Allergy Active Adhesive Tape rash Drug Allergy Active Gluten allergy Rash Non Drug Allergy Acti ve Codeine Phosphate (For Allergies Use Only) Nausea/Vomiting Drug Allergy Active ENCOUNTERS from 1967 to 2021-07-01 Encounter Location Date Provider Diagnosis [facility] Dermatology [address] [facility] [phone] [place] [address] Jun, Maribell Black IMMUNIZATIONS Vaccine Route Administration Date Status COVID-19 [...] Language: Question Answer Notes Languages spoken: Romanian Buddhism: Question Answer Notes Buddhism 21 Yarsanism No moravian beliefs that would impact health care. Drug [...] Active Betamethasone Dipropionate 0.05 % 1 application [employer] Of Training ally Twice a day to rash on [...] ONE TABLET BY MOUTH @8AM for Active Muqgloan-Ihllbpebf-DG 3.5-46863-7 4 drops into affecte d ear Otic [...] Information RESULTS No Results REASON FOR VISIT Betamethasone Dipr approved MEDICAL (GENERAL) HISTORY Type Description Date Medical History Depression/Anxiety- Dr Enriquez. /therapist Q2 weeks Medical History Hyperlipidemia Medical History GERD with Barretts: Repeat EGD in 10 Medical History vitamin d def Medical History FRAN: following with Pulmonol ogy: compliant with CPAP-pulmonology Medical History CAD: Bypass with autologous vein: Dr. Shelley munguia at [facility] Medical History ECHO 10/17/2016. Hypertensive heart [...] 03/31/16 Surgical History CABG- 4 vessel at [facility] 11/11/16 Surgical History Left hand CP sx, and tendon removal. [facility] 01/2018 Surgical History Upper Endoscopic Ultrasound [...] knee diagnostic arthroscopy-Dr. Merrill 03/07/2021 Hospitalization History [facility]- Depression/A nxiety 14 yo Hospitalization History [facility]- Felt- depre ssion 18 yo Hospitalization History Father Verenice- [facility]- ezequiel d facilty- tx of depression. 16-20yo Hospitalization History Hemorrhoidectomy with remova l of a mixed hemorrhoidal bundles at the left lateral and right anterior and posterior positions. 01/11/2016 Hospitalization History CABG: [facility] 11/11/16 Hospitalization History Rehab [facility] 11/21 Hospitalization History POST RIGHT HAND HAND AND ELBOW SURGE RY 10/2019 Hospitalization History [facility]- Post-op problem, left foot c ellulitis 08/03/2020 Hospitalization History Right Ulnar Nerve 01/2020 Hospitalization History [facility]-AMA 01/21/2021 Hospitalization History [facility] ED-Right shoulder injury 021 Hospitalization History [facility] ED-Right foot pain 02/05/2021 Hospitalization History [facility] ED-Right ankle pain 02/19/2021 Hospitalization History [facility] ED-Right foot pain 02/22/2021 Hospitalization History [facility] ileus, small bowel obstruction Hospitalization History [facility] - partial small bowel obstructio n 03/09/21 Hospitalization History [facility] - atypical chest pains 03/2021 Goals Section No Information Health Concerns No Information MEDICAL EQUIPMENT No Information MENTAL STATUS No Information FUNCTIONAL STATUS No Information ASSESSMENTS No Information PLAN OF TREATMENT Medication Medication Name Sig Start Date Stop Date Betamethasone Dipropionate 0.05 % 1 application Manager Of Training ally Twice a day to rash on abdomen and back for 14 days Jun, Next Appt Details Provider Name:Debbie Thomson, 2021-07-22 04:30:00 PM, [address] [facility], , [place], [address], Provider Name:García Helm, 2021-08-02 10:00:00 AM, [address], , [place], [address], Provider Name:Lolis Choudhary, 2021-08-08 10:3 0:00 AM, [address] [facility] [place], , [place], [address], Insurance Providers Payer Name Payer Address Payer Phone Insured Name Patient Relati onship to Insured Coverage Start Date Coverage End Date [facility] [address] [facility] [phone] DEANNA AN self
--- OUTSIDE RECORDS SUMMARY | 2021-08-10 14:28 | CCD ---
Author Author [facility] Address Unknown Phone Unavailable Care Team Providers Care Body Recall Instructor Name Role Phone Lashonda Pond, PA-C Unavailable Unavailabl e FishLashonda, PA-C Unavailable Unavailabl e FishLashonda, PA-C Unavailable Unavailabl e FishLashonda, PA-C Unavailable Unavailabl e Lashonda Pond, PA-C Unavailable Unavailabl e FishLashonda, PA-C Unavailable Unavailabl e Lashonda Pond, PA-C Unavailable Unavailabl e FishLashonad, PA-C Unavailable Unavailabl e FishLashonda, PA-C Unavailable Unavailabl e FishLashonda, PA-C Unavailable Unavailabl e Fish, [facility], PA-C Unavailable Unavailabl e Fish, [facility], PA-C Unavailable Unavailabl e Fish, [facility], PA-C Unavailable Unavailabl e Fish, [facility], PA-C Unavailable Unavailabl e Fish, [facility], PA-C Unavailable Unavailabl e Fish, [facility], PA-C Unavailable Unavailabl e Fish, [facility], PA-C Unavailable Unavailabl e Fish, [facility], PA-C Unavailable Unavailabl e Fish, [facility], PA-C Unavailable Unavailabl e Fish, [facility], PA-C Unavailable Unavailabl e Fish, [facility], PA-C Unavailable Unavailabl e Fish, [facility], PA-C Unavailable Unavailabl e Fish, [facility], PA-C Unavailable Unavailabl e Fish, [facility], PA-C Unavailable Unavailabl e Fish, [facility], PA-C Unavailable Unavailabl e Fish, [facility], PA-C Unavailable Unavailabl e Fish, [facility], PA-C Unavailable Unavailabl e Fish, [facility], PA-C Unavailable Unavailabl e Fish, [facility], PA-C Unavailable Unavailabl e Fish, [facility], PA-C Unavailable Unavailabl e Fish, [facility], PA-C Unavailable Unavailabl e Fish, [facility], PA-C Unavailable Unavailabl e Fish, [facility], PA-C Unavailable Unavailabl e Fish, [facility], PA-C Unavailable Unavailabl e Fish, [facility], PA-C Unavailable Unavailabl e Fish, [facility], PA-C Unavailable Unavailabl e HAVEN H NICOLE CHEMICAL PROCESSING EQUIPMENT REPAIRER Unavailable Unavailable HAVEN, H [employer] PROCESS[employer] EQUIPMENT REPAIRER Unavailable Unavailable HAVEN, H NICOLE [employer] PROCESSING EQUIPMENT REPAIRER Unavailable Unavailable HAVEN, H NICO[employer] PROCESSING EQUIPMENT REPAIRER Unavailable Unavailable OROURKE, H NICOLE CHEMICAL PROCESSING EQUIPMENT REPAIRER Unavailable Unavailable OROURKE, H NICOLE CHEMICAL PROCESSING EQUIPMENT REPAIRER Unavailable Unavailable OROURKE, H NICOLE CHEMICAL PROCESSING EQUIPMENT REPAIRER Unavailable Unavailable OROURKE, H NICLOE CHEMICAL PROCESSING EQUIPMENT REPAIRER Unavailable Unavailable OROURKE, H NICOLE CHEMICAL PROCESSING EQUIPMENT REPAIRER Unavailable Unavailable OROURKE, H NICOLE CHEMICAL PROCESSING EQUIPMENT REPAIRER Unavailable Unavailable OROURKE, H NICOLE CHEMICAL PROCESSING EQUIPMENT REPAIRER Unavailable Unavailable OROURKE, H NICOLE CHEMICAL PROCESSING EQUIPMENT REPAIRER Unavailable Unavailable OROURKE, H NICOLE CHEMICAL PROCESSING EQUIPMENT REPAIRER Unavailable Unavailable OROURKE, H NICOLE CHEMICAL PROCESSING EQUIPMENT REPAIRER Unavailable Unavailable OROURKE, H NICOLE CHEMICAL PROCESSING EQUIPMENT REPAIRER Unavailable Unavailable OROURKE, H NICOLE CHEMICAL PROCESSING EQUIPMENT REPAIRER Unavailable Unavailable OROURKE, H NICOLE CHEMICAL PROCESSING EQUIPMENT REPAIRER Unavailable Unavailable OROURKE, H NICOLE CHEMICAL PROCESSING EQUIPMENT REPAIRER Unavailable Unavailable OROURKE, H NICOLE CHEMICAL PROCESSING EQUIPMENT REPAIRER Unavailable Unavailable OROURKE, H NICOLE CHEMICAL PROCESSING EQUIPMENT REPAIRER Unavailable Unavailable OROURKE, H NICOLE CHEMICAL PROCESSING EQUIPMENT REPAIRER Unavailable Unavailable OROURKE, H NICOLE CHEMICAL PROCESSING EQUIPMENT REPAIRER Unavailable Unavailable OROURKE, H NICOLE CHEMICAL PROCESSING EQUIPMENT REPAIRER Unavailable Unavailable OROURKE, H NICOLE CHEMICAL PROCESSING EQUIPMENT REPAIRER Unavailable Unavailable OROURKE, H NICOLE CHEMICAL PROCESSING EQUIPMENT REPAIRER Unavailable Unavailable OROURKE, H NICOLE CHEMICAL PROCESSING EQUIPMENT REPAIRER Unavailable Unavailable OROURKE, H NICOLE CHEMICAL PROCESSING EQUIPMENT REPAIRER Unavailable Unavailable OROURKE, H NICOLE CHEMICAL PROCESSING EQUIPMENT REPAIRER Unavailable Unavailable OROURKE, H NICOLE CHEMICAL PROCESSING EQUIPMENT REPAIRER Unavailable Unavailable OROURKE, H NICOLE CHEMICAL PROCESSING EQUIPMENT REPAIRER Unavailable Unavailable OROURKE, H NICOLE CHEMICAL PROCESSING EQUIPMENT REPAIRER Unavailable Unavailable OROURKE, H NICOLE CHEMICAL PROCESSING EQUIPMENT REPAIRER Unavailable Unavailable OROURKE, H NICOLE CHEMICAL PROCESSING EQUIPMENT REPAIRER Unavailable Unavailable OROURKE, H NICOLE CHEMICAL PROCESSING EQUIPMENT REPAIRER Unavailable Unavailable OROURKE, H NICOLE CHEMICAL PROCESSING EQUIPMENT REPAIRER Unavailable Unavailable OROURKE, H NICOLE CHEMICAL PROCESSING EQUIPMENT REPAIRER Unavailable Unavailable OROURKE, H NICOLE CHEMICAL PROCESSING EQUIPMENT REPAIRER Unavailable Unavailable OROURKE, H NICOLE CHEMICAL PROCESSING EQUIPMENT REPAIRER Unavailable Unavailable OROURKE, H NICOLE CHEMICAL PROCESSING EQUIPMENT REPAIRER Unavailable Unavailable OROURKE, H NICOLE CHEMICAL PROCESSING EQUIPMENT REPAIRER Unavailable Unavailable OROURKE, H NICOLE CHEMICAL PROCESSING EQUIPMENT REPAIRER Unavailable Unavailable OROURKE, H NICOLE CHEMICAL PROCESSING EQUIPMENT REPAIRER Unavailable Unavailable OROURKE, H NICOLE CHEMICAL PROCESSING EQUIPMENT REPAIRER Unavailable Unavailable OROURKE, H NICOLE CHEMICAL PROCESSING EQUIPMENT REPAIRER Unavailable Unavailable OROURKE, H NICOLE CHEMICAL PROCESSING EQUIPMENT REPAIRER Unavailable Unavailable OROURKE, H NICOLE CHEMICAL PROCESSING EQUIPMENT REPAIRER Unavailable Unavailable OROURKE, H NICOLE CHEMICAL PROCESSING EQUIPMENT REPAIRER Unavailable Unavailable OROURKE, H NICOLE CHEMICAL PROCESSING EQUIPMENT REPAIRER Unavailable Unavailable OROURKE, H NICOLE CHEMICAL PROCESSING EQUIPMENT REPAIRER Unavailable Unavailable OROURKE, H NICOLE CHEMICAL PROCESSING EQUIPMENT REPAIRER Unavailable Unavailable OROURKE, H NICOLE CHEMICAL PROCESSING EQUIPMENT REPAIRER Unavailable Unavailable OROURKE, H NICOLE CHEMICAL PROCESSING EQUIPMENT REPAIRER Unavailable Unavailable OROURKE, H NICOLE CHEMICAL PROCESSING EQUIPMENT REPAIRER Unavailable Unavailable OROURKE, H NICOLE CHEMICAL PROCESSING EQUIPMENT REPAIRER Unavailable Unavailable OROURKE, H NICOLE CHEMICAL PROCESSING EQUIPMENT REPAIRER Unavailable Unavailable OROURKE, H NICOLE CHEMICAL PROCESSING EQUIPMENT REPAIRER Unavailable Unavailable OROURKE, H NICOLE CHEMICAL PROCESSING EQUIPMENT REPAIRER Unavailable Unavailable OROURKE, H NICOLE CHEMICAL PROCESSING EQUIPMENT REPAIRER Unavailable Unavailable OROURKE, H NICOLE CHEMICAL PROCESSING EQUIPMENT REPAIRER Unavailable Unavailable OROURKE, H NICOLE CHEMICAL PROCESSING EQUIPMENT REPAIRER Unavailable Unavailable OROURKE, H NICOLE CHEMICAL PROCESSING EQUIPMENT REPAIRER Unavailable Unavailable OROURKE, H NICOLE CHEMICAL PROCESSING EQUIPMENT REPAIRER Unavailable Unavailable OROURKE, H NICOLE CHEMICAL PROCESSING EQUIPMENT REPAIRER Unavailable Unavailable OROURKE, H NICOLE CHEMICAL PROCESSING EQUIPMENT REPAIRER Unavailable Unavailable OROURKE, H NICOLE CHEMICAL PROCESSING EQUIPMENT REPAIRER Unavailable Unavailable OROURKE, H NICOLE CHEMICAL PROCESSING EQUIPMENT REPAIRER Unavailable Unavailable OROURKE, H NICOLE CHEMICAL PROCESSING EQUIPMENT REPAIRER Unavailable Unavailable OROURKE, H NICOLE CHEMICAL PROCESSING EQUIPMENT REPAIRER Unavailable Unavailable OROURKE, H NICOLE CHEMICAL PROCESSING EQUIPMENT REPAIRER Unavailable Unavailable OROURKE, H NICOLE CHEMICAL PROCESSING EQUIPMENT REPAIRER Unavailable Unavailable OROURKE, H NICOLE CHEMICAL PROCESSING EQUIPMENT REPAIRER Unavailable Unavailable OROURKE, H NICOLE CHEMICAL PROCESSING EQUIPMENT REPAIRER Unavailable Unavailable OROURKE, H NICOEL CHEMICAL PROCESSING EQUIPMENT REPAIRER Unavailable Unavailable OROURKE, H NICOLE CHEMICAL PROCESSING EQUIPMENT REPAIRER Unavailable Unavailable OROURKE, H NICOLE CHEMICAL PROCESSING EQUIPMENT REPAIRER Unavailable Unavailable OROURKE, H NICOLE CHEMICAL PROCESSING EQUIPMENT REPAIRER Unavailable Unavailable OROURKE, H NICOLE CHEMICAL PROCESSING EQUIPMENT REPAIRER Unavailable Unavailable OROURKE, H NICOLE CHEMICAL PROCESSING EQUIPMENT REPAIRER Unavailable Unavailable OROURKE, H NICOLE CHEMICAL PROCESSING EQUIPMENT REPAIRER Unavailable Unavailable OROURKE, H NICOLE CHEMICAL PROCESSING EQUIPMENT REPAIRER Unavailable Unavailable OROURKE, H NICOLE CHEMICAL PROCESSING EQUIPMENT REPAIRER Unavailable Unavailable OROURKE, H NICOLE CHEMICAL PROCESSING EQUIPMENT REPAIRER Unavailable Unavailable OROURKE, H NICOLE CHEMICAL PROCESSING EQUIPMENT REPAIRER Unavailable Unavailable OROURKE, H NICOLE CHEMICAL PROCESSING EQUIPMENT REPAIRER Unavailable Unavailable OROURKE, H NICOLE CHEMICAL PROCESSING EQUIPMENT REPAIRER Unavailable Unavailable OROURKE, H NICOEL CHEMICAL PROCESSING EQUIPMENT REPAIRER Unavailable Unavailable OROURKE, H NICOLE CHEMICAL PROCESSING EQUIPMENT REPAIRER Unavailable Unavailable OROURKE, H NICOLE CHEMICAL PROCESSING EQUIPMENT REPAIRER Unavailable Unavailable OROURKE, H NICOLE CHEMICAL PROCESSING EQUIPMENT REPAIRER Unavailable Unavailable OROURKE, H NICOLE CHEMICAL PROCESSING EQUIPMENT REPAIRER Unavailable Unavailable OROURKE, H NICOLE CHEMICAL PROCESSING EQUIPMENT REPAIRER Unavailable Unavailable OROURKE, H NICOLE CHEMICAL PROCESSING EQUIPMENT REPAIRER Unavailable Unavailable OROURKE, H NICOLE CHEMICAL PROCESSING EQUIPMENT REPAIRER Unavailable Unavailable OROURKE, H NICOLE CHEMICAL PROCESSING EQUIPMENT REPAIRER Unavailable Unavailable OROURKE, H NICOLE CHEMICAL PROCESSING EQUIPMENT REPAIRER Unavailable Unavailable OROURKE, H NICOLE CHEMICAL PROCESSING EQUIPMENT REPAIRER Unavailable Unavailable OROURKE, H NICOLE CHEMICAL PROCESSING EQUIPMENT REPAIRER Unavailable Unavailable OROURKE, H NICOLE CHEMICAL PROCESSING EQUIPMENT REPAIRER Unavailable Unavailable OROURKE, H NICOLE CHEMICAL PROCESSING EQUIPMENT REPAIRER Unavailable Unavailable OROURKE, H NICOLE CHEMICAL PROCESSING EQUIPMENT REPAIRER Unavailable Unavailable OROURKE, H NICOLE CHEMICAL PROCESSING EQUIPMENT REPAIRER Unavailable Unavailable OROURKE, H NICOLE CHEMICAL PROCESSING EQUIPMENT REPAIRER Unavailable Unavailable OROURKE, H NICOLE CHEMICAL PROCESSING EQUIPMENT REPAIRER Unavailable Unavailable OROURKE, H NICOLE CHEMICAL PROCESSING EQUIPMENT REPAIRER Unavailable Unavailable ORORUKE, H NICOLE CHEMICAL PROCESSING EQUIPMENT REPAIRER Unavailable Unavailable OROURKE, H NICOLE CHEMICAL PROCESSING EQUIPMENT REPAIRER Unavailable Unavailable OROURKE, H NICOLE CHEMICAL PROCESSING EQUIPMENT REPAIRER Unavailable Unavailable OROURKE, H NICOLE CHEMICAL PROCESSING EQUIPMENT REPAIRER Unavailable Unavailable OROURKE, H NICOLE CHEMICAL PROCESSING EQUIPMENT REPAIRER Unavailable Unavailable OROURKE, H NICOLE CHEMICAL PROCESSING EQUIPMENT REPAIRER Unavailable Unavailable OROURKE, H NICOLE CHEMICAL PROCESSING EQUIPMENT REPAIRER Unavailable Unavailable OROURKE, H NICOLE CHEMICAL PROCESSING EQUIPMENT REPAIRER Unavailable Unavailable Marely IRIZARRY DPM Unavailable Unavailable Marely IRIZARRY DPM Unavailable Unavailable Marely IRIZARRY DPM Unavailable Unavailable Marely IRIZARRY DPM Unavailable Unavailable Marely IRIZARRY DPM Unavailable Unavailable Marely IRIZARRY DPM Unavailable Unavailable Marely IRIZARRY DPM Unavailable Unavailable Marely IRIZARRY DPM Unavailable Unavailable Marely IRIZARRY DPM Unavailable Unavailable Marely IRIZARRY DPM Unavailable Unavailable Marely IRIZARRY DPM Unavailable Unavailable Marely IIRZARRY DPM Unavailable Unavailable Marely IRIZARRY DPM Unavailable [...] Unavailable MAJAK, R ITZEL DPM Unavailable Unavailable Rivera, M Barratt PA Unavailable Unavailable Rivera, M Barratt PA Unavailable Unavailable Rivera, M Barratt PA Unavailable Unavailable Rivera, M Barratt PA Unavailable Unavailable Rivera, M Barratt PA Unavailable Unavailable Rivera, M Barratt PA Unavailable Unavailable Rivera, M Barratt PA Unavailable Unavailable Rivera, M Barratt PA Unavailable Unavailable Rivera, M Barratt PA Unavailable Unavailable Rivera, M Barratt PA Unavailable Unavailable Rivera, M Barratt PA Unavailable Unavailable Rivera, M Barratt PA Unavailable Unavailable Rivera, M Barratt PA Unavailable Unavailable Rivera, M Barratt PA Unavailable Unavailable Rivera, M Barratt PA Unavailable Unavailable Rivera, M Barratt PA Unavailable Unavailable Rivera, M Barratt PA Unavailable Unavailable Rivera, M Barratt PA Unavailable Unavailable Rivera, M Barratt PA Unavailable Unavailable Rivera, M Barratt PA Unavailable Unavailable Rivera, M Barratt PA Unavailable Unavailable Rivera, M Barratt PA Unavailable Unavailable Rivera, M Barratt PA Unavailable Unavailable Rivera, M Barratt PA Unavailable Unavailable Rivera, M Barratt PA Unavailable Unavailable Rivera, M Barratt PA Unavailable Unavailable Rivera, M Barratt PA Unavailable Unavailable Rivera, M Barratt PA Unavailable Unavailable Rivera, M Barratt PA Unavailable Unavailable REMINGTON, TANESHA PA Unavailable [...] Unavailable Unavailable REMINGTON, TANESHA PA Unavailable Unavailable Natividad BEGUM MD Unavailable Unavailable Natividad BEGUM MD Unavailable Unavailable Natividad BEGUM MD Unavailable Unavailable Natividad BEGUM MD Unavailable Unavailable Natividad BEGUM MD Unavailable Unavailable Natividad BEGUM MD Unavailable Unavailable Natividad BEGUM MD Unavailable Unavailable Natividad BEGUM MD Unavailable Unavailable Natividad BEGUM MD Unavailable Unavailable Natividad BEGUM MD Unavailable Unavailable Natividad BEGUM MD Unavailable Unavailable Natividad BEGUM MD Unavailable Unavailable Natividad BEGUM MD Unavailable Unavailable Natividad BEGUM MD Unavailable Unavailable Natividad BEGUM MD Unavailable Unavailable Natividad BEGUM MD Unavailable Unavailable Natividad BEGUM MD Unavailable Unavailable Natividad BEGUM MD Unavailable Unavailable Natividad BEGUM MD Unavailable Unavailable Natividad BEGUM MD Unavailable Unavailable Natividad BEGUM MD Unavailable Unavailable Natividad BEGUM MD Unavailable Unavailable Natividad BEGUM MD Unavailable Unavailable Natividad BEGUM MD Unavailable Unavailable Natividad BEGUM MD Unavailable Unavailable Natividad BEGUM MD Unavailable Unavailable Natividad BEGUM MD Unavailable Unavailable Natividad BEGUM MD Unavailable Unavailable Natividad BEGUM MD Unavailable Unavailable Natividad BEGUM MD Unavailable Unavailable Natividad BEGUM MD Unavailable Unavailable Natividad BEGUM MD Unavailable Unavailable Natividad BEGUM MD Unavailable Unavailable KRISTIN, L YOHANA MD Unavailable Unavailable KRISTIN, L YOHANA MD Unavailable Unavailable KRISTIN, L YOHANA MD Unavailable Unavailable KRISTIN, L YOHANA MD Unavailable Unavailable KRISTIN, L YOHANA MD Unavailable Unavailable KRISTIN, L YOHANA MD Unavailable Unavailable KRISTIN, L YOHANA MD Unavailable Unavailable KRISTIN, L YOHANA MD Unavailable Unavailable KRISTIN, L YOHANA MD Unavailable Unavailable KRISTIN, L YOHANA MD Unavailable Unavailable KRISTIN, L YOHANA MD Unavailable Unavailable KRISTIN, L YOHANA MD Unavailable Unavailable KRISTIN, L YOHANA MD Unavailable Unavailable KRISTIN, L YOHANA MD Unavailable Unavailable KRISTIN, L YOHANA MD Unavailable Unavailable KRISTIN, L YOHANA MD Unavailable Unavailable KRISTIN, L YOHANA MD Unavailable Unavailable KRISTIN, L YOHANA MD Unavailable Unavailable KRISTIN, L YOHANA MD Unavailable Unavailable KRISTIN, L YOHANA MD Unavailable Unavailable Daviston Falanga, A Jerrica HVAC MAINTENANCE TECHNICIAN Unavailable Unavailable Daviston Falanga, A Jerrica HVAC MAINTENANCE TECHNICIAN Unavailable Unavailable Daviston Falanga, A Jerrica HVAC MAINTENANCE TECHNICIAN Unavailable Unavailable Daviston Falanga, A Jerrica HVAC MAINTENANCE TECHNICIAN Unavailable Unavailable Juanita Falanga, A Jerrica HVAC MAINTENANCE TECHNICIAN Unavailable Unavailable Juanita Falanga, A Jerrica HVAC MAINTENANCE TECHNICIAN Unavailable Unavailable Juanita Falanga, A Jerrica HVAC MAINTENANCE TECHNICIAN Unavailable Unavailable Daviston Falanga, A Jerrica HVAC MAINTENANCE TECHNICIAN Unavailable Unavailable Daviston Falanga, A Jerrica HVAC MAINTENANCE TECHNICIAN Unavailable Unavailable Juanita Falanga, A Jerrica HVAC MAINTENANCE TECHNICIAN Unavailable Unavailable Juanita Falanga, A Jerrica HVAC MAINTENANCE TECHNICIAN Unavailable Unavailable Daviston Falanga, A Jerrica HVAC MAINTENANCE TECHNICIAN Unavailable Unavailable Daviston Falanga, A Jerrica HVAC MAINTENANCE TECHNICIAN Unavailable Unavailable Daviston Falanga, A Jerrica HVAC MAINTENANCE TECHNICIAN Unavailable Unavailable Daviston Falanga, A Jerrica HVAC MAINTENANCE TECHNICIAN Unavailable Unavailable Daviston Falanga, A Jerrica HVAC MAINTENANCE TECHNICIAN Unavailable Unavailable Juanita Falanga, A Jerrica HVAC MAINTENANCE TECHNICIAN Unavailable Unavailable Juanita Falanga, A Jerrica HVAC MAINTENANCE TECHNICIAN Unavailable Unavailable Juanita Falanga, A Jerrica HVAC MAINTENANCE TECHNICIAN Unavailable Unavailable Juanita Falanga, A Jerrica HVAC MAINTENANCE TECHNICIAN Unavailable Unavailable Juanita Falanga, A Jerrica HVAC MAINTENANCE TECHNICIAN Unavailable Unavailable Daviston Falanga, A Jerrica HVAC MAINTENANCE TECHNICIAN Unavailable Unavailable Daviston Falanga, A Jerrica HVAC MAINTENANCE TECHNICIAN Unavailable Unavailable Juanita Falanga, A Jerrica HVAC MAINTENANCE TECHNICIAN Unavailable Unavailable Juanita Falanga, A Jerrica HVAC MAINTENANCE TECHNICIAN Unavailable Unavailable Daviston Falanga, A Jerrica HVAC MAINTENANCE TECHNICIAN Unavailable Unavailable Daviston Falanga, A Jerrica HVAC MAINTENANCE TECHNICIAN Unavailable Unavailable Juanita Faldannya, A Jerrica HVAC MAINTENANCE TECHNICIAN Unavailable Unavailable Daviston Falanga, A Jerrica HVAC MAINTENANCE TECHNICIAN Unavailable Unavailable ANNIE, YVETTE SAVAGE Unavailable Unavailable [...] Unavailable ANNIE, YVETTE SAVAGE Unavailable Unavailable ANNIE, CRAWFORD MD Unavailable Unavailable YVETTE VALENCIA MD Unavailable Unavailable YVETTE VALENCIA MD Unavailable Unavailable YVETTE VALENCIA MD Unavailable Unavailable YVETTE VALENCIA MD Unavailable Unavailable YVETTE VALENCIA MD Unavailable Unavailable YVETTE VALENCIA MD Unavailable Unavailable DRAZEK, I CATRACHITA PA Unavailable [...] Unavailable DRAZEK, I CATRACHITA PA Unavailable Unavailable Zoey Pond MD Unavailable Unavailable Zoey Pond MD Unavailable Unavailable Zoey Pond MD Unavailable Unavailable Zoey Pond MD Unavailable Unavailable Zoey Pond MD Unavailable Unavailable Zoey Pond MD Unavailable Unavailable Zoey Pond MD Unavailable Unavailable Zoey Pond MD Unavailable Unavailable Zoey Pond MD Unavailable Unavailable Zoey Pond MD Unavailable Unavailable Zoey Pond MD Unavailable Unavailable Zoey Pond MD Unavailable Unavailable Zoey Pond MD Unavailable Unavailable Zoey Pond MD Unavailable Unavailable Zoey Pond MD Unavailable Unavailable Zoey Pond MD Unavailable Unavailable Zoey Pond MD Unavailable Unavailable Zoey Pond MD Unavailable Unavailable Fish, Zoey Ramos MD Unavailable Unavailable Fish, Zoey Ramos MD Unavailable Unavailable Fish, Zoey Ramos MD Unavailable Unavailable Fish, Zoey Ramos MD Unavailable Unavailable Fish, Zoey Ramos MD Unavailable Unavailable Fish, Zoey Ramos MD Unavailable Unavailable Fish, Zoey Ramos MD Unavailable Unavailable Fish, Zoey Ramos MD Unavailable Unavailable Fish, Zoey Ramos MD Unavailable Unavailable Fish, Zoey Ramos MD Unavailable Unavailable Fish, Zoey Ramos MD Unavailable Unavailable Fish, Zoey Ramos MD Unavailable Unavailable Fish, Zoey Ramos MD Unavailable Unavailable Fish, Zoey Rmaos MD Unavailable Unavailable Fish, Zoey Ramos MD Unavailable Unavailable Fish, Zoey Ramos MD Unavailable Unavailable Fish, Zoey Ramos MD Unavailable Unavailable Fish, Zoey Ramos MD Unavailable Unavailable Fish, Zoey Ramos MD Unavailable Unavailable Fish, Zoey Ramos MD Unavailable Unavailable Fish, Zoey Ramos MD Unavailable Unavailable Fish, Zoey Ramos MD Unavailable Unavailable Fish, Zoey Ramos MD Unavailable Unavailable Fish, Zoey Ramos MD Unavailable Unavailable Fish, Zoey Ramos MD Unavailable Unavailable Fish, Zoey Ramos MD Unavailable Unavailable Fish, Zoey Ramos MD Unavailable Unavailable Fish, Zoey Ramos MD Unavailable Unavailable Fish, Zoey Ramos MD Unavailable Unavailable Fish, Zoey Ramos MD Unavailable Unavailable Fish, Zoey Ramos MD Unavailable Unavailable Fish, Zoey Ramos MD Unavailable Unavailable Fish, Zoey Ramos MD Unavailable Unavailable Fish, Zoey Ramos MD Unavailable Unavailable Fish, Zoey Ramos MD Unavailable Unavailable Fish, Zoey Ramos MD Unavailable Unavailable Fish, Zoey Ramos MD Unavailable Unavailable Fish, Zoey Ramos MD Unavailable Unavailable Trent Puentes MD Unavailable Unavailable Trent Puentes MD Unavailable Unavailable Trent Puentes MD Unavailable Unavailable Trent Puentes MD Unavailable Unavailable Trent Puentes MD Unavailable Unavailable Trent Puentes MD Unavailable Unavailable Trent Puentes MD Unavailable Unavailable Trent Puentes MD Unavailable Unavailable Trent Puentes MD Unavailable Unavailable Trent Puentes MD Unavailable Unavailable Trent Puentes MD Unavailable Unavailable Trent Puentes MD Unavailable Unavailable Trent Puentes MD Unavailable Unavailable Trent Puentes MD Unavailable Unavailable Trent Puentes MD Unavailable Unavailable Trent Puentes MD Unavailable Unavailable Trent Puentes MD Unavailable Unavailable Trent Puentes MD Unavailable Unavailable Trent Puentes MD Unavailable Unavailable Trent Puentes MD Unavailable Unavailable Trent Puentes MD Unavailable Unavailable Trent Puentes MD Unavailable Unavailable Trent Puentes MD Unavailable Unavailable Trent Puentes MD Unavailable Unavailable Trent Puentes MD Unavailable Unavailable Trent Puentes MD Unavailable Unavailable Trent Puentes MD Unavailable Unavailable Trent Puentes MD Unavailable Unavailable Puentes, Trent Maloney MD Unavailable Unavailable Puentes, Trent Maloney MD Unavailable Unavailable Puentes, Trent Maloney MD Unavailable Unavailable Puentes, Trent Maloney MD Unavailable Unavailable Puentes, Trent Maloney MD Unavailable Unavailable Puentes, Trent Maloney MD Unavailable Unavailable Puentes, Trent Maloney MD Unavailable Unavailable Puentes, Trent Maloney MD Unavailable Unavailable Puentes, Trent Maloney MD Unavailable Unavailable Puentes, Trent Maloney MD Unavailable Unavailable Puentes, Trent Maloney MD Unavailable Unavailable Puentes, Trent Maloney MD Unavailable Unavailable Puentes, Trent Maloney MD Unavailable Unavailable Puentes, Trent Maloney MD Unavailable Unavailable Puentes, Trent Maloney MD Unavailable Unavailable Puentes, Trent Maloney MD Unavailable Unavailable Puentes, Trent Maloney MD Unavailable Unavailable Puentes, Trent Maloney MD Unavailable Unavailable Puentes, Trent Maloney MD Unavailable Unavailable Puentes, Trent Maloney MD Unavailable Unavailable Puentes, Trent Maloney MD Unavailable Unavailable Puentes, Trent Maloney MD Unavailable Unavailable Puentes, Trent Maloney MD Unavailable Unavailable Puentes, Trent Maloney MD Unavailable Unavailable Puentes, Trent Maloney MD Unavailable Unavailable Puentes, Trent Maloney MD Unavailable Unavailable CHANLIECCO, C KRISTAN MD Unavailable Unavailable CHANLIECCO, C KRISTAN MD Unavailable Unavailable CHANLIECCO, C KRISTAN MD Unavailable Unavailable CHANLIECCO, C KRISTAN MD Unavailable Unavailable CHANLIECCO, C KRISTAN MD Unavailable Unavailable CHANLIECCO, C KRISTAN MD Unavailable Unavailable CHANLIECCO, C KRISTAN MD Unavailable Unavailable CHANLIECCO, C KRISTAN MD Unavailable Unavailable CHANLIECCO, C KRISTAN MD Unavailable Unavailable CHANLIECCO, C KRISTAN MD Unavailable Unavailable CHANLIECCO, C KRISTAN MD Unavailable Unavailable Re-disclosure Warning The records [...] is protected by Article 27-F of the [facility] [facility] Public Health law. If you continue you may have access to information: Regarding HIV / AIDS; Provided by facilities licensed or operated by the [facility] Office of Mental Health; or Provided by the [facility] Office for People With Developmental Disabilities. If such information is present, then the following [facility] mandated warning applies: This information has [...] law may result in a fine or fpc sentence or both. A general authorization for the release of medical or other information is NOT sufficient authorization for further disc losure. Allergies and Adverse Reactions Type Description Substance Reaction Status Data Source(s ) Propensity to adverse reactions LATEX LATEX [facility] Propensity to adverse reactions ADHESIVE ADHESIVE [facility] Drug allergy CODEINE CODEINE [facility] Family History Family Member Name Family Member Gender Family Member Status Date o f Status Description Data Source(s) Unknown Unknown Problem MEDENT ([facility]) Encounters Encounter Providers Location Date Indications Data Source(s ) Unknown [address] [facility] [place] [address] 07/30/2021 12:00:00 AM EDT eCW1 ([facility]) Unknown [address] [facility] Y [address] 07/29/2021 12:00:00 AM EDT eCW1 ([facility]) Unknown [address] [facility] Y [address] 07/23/2021 12:00:00 AM EDT eCW1 ([facility]) Outpatient [address] [facility] [id number] 07/22/2021 12:00:00 AM EDT eCW1 ([facility]) Unknown [address] [facility] Y [address] 07/22/2021 12:00:00 AM EDT eCW1 ([facility]) OFFICE OUTPATIENT VISIT 15 MINUTES Attender: Aidee GANT PA-C Physical Therapy 07/19/2021 01:00:00 PM EDT MEDENT ([facility]) Unknown [address] [facility] Y [address] 07/15/2021 12:00:00 AM EDT eCW1 ([facility]) Unknown [address] [facility] [place] [address] 07/12/2021 12:00:00 AM EDT eCW1 ([facility]) Unknown [address] [facility] [place] [address] 07/04/2021 12:00:00 AM EDT eCW1 ([facility]) OFFICE OUTPATIENT VISIT 15 MINUTES Attender: CATRACHITA Smart ical Therapy 07/03/2021 01:45:00 PM EDT MEDENT ([facility]) Unknown [address] [facility] Y [address] 07/03/2021 12:00:00 AM EDT eCW1 ([facility]) Outpatient Attender: ITZEL IRIZARRY [facility] Office 06/06 10:45:00 AM EDT MEDENT ([facility] Unknown [address] [facility] Y [address] 06/28/2021 12:00:00 AM EDT eCW1 ([facility]) Outpatient [address] [facility] Y [address] 06/28/2021 12:00:00 AM EDT eCW1 ([facility]) Outpatient Attender: Aidee GANT PA-C Physical Therapy 06/21/2021 03:30:00 PM EDT MEDENT ([facility]) Unknown [address] [facility] [place] [address] 06/21/2021 12:00:00 AM EDT eCW1 ([facility]) Unknown [address] [facility] [place] [address] 06/17/2021 12:00:00 AM EDT eCW1 ([facility]) Outpatient [address] [facility] Y [address] 06/13/2021 12:00:00 AM EDT eCW1 ([facility]) Unknown [address] [facility] [place] [address] 06/07/2021 12:00:00 AM EDT eCW1 ([facility]) Outpatient Attender: ITZEL IRIZARRY [facility] Office 05/07 11:00:00 AM EDT MEDENT ([facility] Outpatient Referrer: YVETTE VALENCIA MD SJP.KENDRA-[email or web address].KENDRA 07:40:13 AM EDT - 05/31/2021 11:52:12 AM EDT [facility] Unknown [address] [facility] [place] [address] 05/27/2021 12:00:00 AM EDT eCW1 ([facility]) Outpatient Attender: Haider Purcell/Giovanni/Rodri/Marely gray 05/23/2021 01:15:00 PM EDT MEDENT ([facility] OFFICE OUTPATIENT VISIT 15 MINUTES Attender: Marielena LANDRY Physical Therapy 05/21/2021 02:45:00 PM EDT MEDENT ([facility]) Unknown [address] [facility] [place] [address] 05/17/2021 12:00:00 AM EDT eCW1 ([facility]) Outpatient [address] [facility] [place] [address] 05/16/2021 12:00:00 AM EDT eCW1 ([facility]) Unknown [address] [facility] [place] [address] 05/16/2021 12:00:00 AM EDT eCW1 ([facility]) Unknown [address] [facility] [place] [address] 05/15/2021 12:00:00 AM EDT eCW1 ([facility]) Unknown [address] [facility] [place] [address] 05/08/2021 12:00:00 AM EDT eCW1 ([facility]) Unknown [address] [facility] [address] 05/08/2021 12:00:00 AM EDT eCW1 ([facility]) Unknown [address] [facility] [address] 05/08/2021 12:00:00 AM EDT eCW1 ([facility]) Outpatient Attender: ITZEL IRIZARRY [facility] Office 04/05 10:30:00 AM EDT MEDENT ([facility] Unknown [address] [facility] [id number] 04/29/2021 12:00:00 AM EDT eCW1 ([facility]) Outpatient [address] [facility] [id number] 04/25/2021 12:00:00 AM EDT eCW1 ([facility]) Outpatient Attender: YVETTE AUGUSTEeferrer: NICOLE OROURKE NP SJP .KENDRA-SJP.KENDRA 04/19/2021 12:58:45 PM EDT - 04/19/2021 01:45:40 PM EDT [facility] Outpatient Attender: ITZEL IRIZARRY [facility] Office 04/04 11:15:00 AM EDT MEDENT ([facility] Unknown [address] [facility] [id number] 04/17/2021 12:00:00 AM EDT eCW1 ([facility]) Unknown [address] [facility] [id number] 04/15/2021 12:00:00 AM EDT eCW1 ([facility]) Outpatient [address] [facility] [id number] 04/15/2021 12:00:00 AM EDT eCW1 ([facility]) Unknown [address] [facility] Y [address] 04/11/2021 12:00:00 AM EDT eCW1 ([facility]) Outpatient [address] [facility] Y [address] 04/10/2021 12:00:00 AM EDT eCW1 ([facility]) Unknown [address] [facility] [address] 04/04/2021 12:00:00 AM EDT eCW1 ([facility]) Outpatient Attender: Jerrica almanzar FNPAttender: KRISTAN SWAIN MDConsultant: NICOLE OROURKE CHEMICAL PROCESSING EQUIPMENT REPAIRER 03/29/2021 01:56:00 PM EDT - 03/30/2021 02:35:00 PM EDT [facility] Patient discharged. Unknown [address] [facility] [id number] 03/29/2021 12:00:00 AM EDT eCW1 ([facility]) Emergency Attender: YOHANA CASON MDConsultant: NICOLE Kirkpatrick P 03/22/2021 04:02:00 PM EDT - 03/22/2021 06:26:00 PM EDT [facility] Patient discharged. Outpatient Attender: ITZEL IRIZARRY [facility] Office 03/05 01:00:00 PM EDT MEDENT ([facility] Unknown [address] [facility] [id number] 03/18/2021 12:00:00 AM EDT eCW1 ([facility]) (TCM) Transition of Care Visit [address] [place] [address] 03/15/2021 12:00:00 AM EDT eCW1 ([facility]) Outpatient Attender: ITZEL IRIZARRY [facility] Office 05/2021 10:30:00 AM EDT MEDENT ([facility] Unknown [address] [facility] [address] 03/11/2021 12:00:00 AM EDT eCW1 ([facility]) Unknown [address] [facility] Y [address] 03/07/2021 12:00:00 AM EDT eCW1 ([facility]) Outpatient Attender: ITZEL IRIZARRY [facility] Office 02/03 10:30:00 AM EDT MEDENT ([facility] Outpatient Attender: Richard Pond MDConsultant: NICOLE OROURKE NP 02/25/2021 12:08:27 PM EDT [facility] Unknown [address] [facility] [id number] 02/25/2021 12:00:00 AM EDT [facility]CW1 [facility] Outpatient Attender: Marielena LANDRY Physical Therapy 03:45:00 PM EDT MEDENT ([facility]) Unknown [address] [facility], [facility] [address] 02/14/2021 12:00:00 AM EDT eCW1 ([facility]) Unknown [address] [facility] Y [address] 02/14/2021 12:00:00 AM EDT eCW1 ([facility]) Outpatient Attender: ITZEL IRIZARRY [facility] Office 02/02 11:00:00 AM EDT MEDENT ([facility] Unknown [address] [facility] Y [address] 02/12/2021 12:00:00 AM EDT eCW1 ([facility]) Unknown [address] [facility] Y [address] 02/12/2021 12:00:00 AM EDT eCW1 ([facility]) Unknown [address] [facility] Y [address] 02/11/2021 12:00:00 AM EDT eCW1 ([facility]) Outpatient Attender: ITZEL IRIZARRY [facility] Office 01/05 11:15:00 AM EDT MEDENT ([facility] Unknown [address] [facility] [place] [address] 01/28/2021 12:00:00 AM EDT eCW1 ([facility]) Outpatient [address] [facility] Y [address] 01/25/2021 12:00:00 AM EDT eCW1 ([facility]) Unknown [address] [facility] Y [address] 01/24/2021 12:00:00 AM EDT eCW1 ([facility]) Unknown [address] [facility] Y [address] 01/21/2021 12:00:00 AM EDT eCW1 ([facility]) Unknown [address] [facility] Y [address] 01/21/2021 12:00:00 AM EDT eCW1 ([facility]) Unknown [address] [facility] Y [address] 01/15/2021 12:00:00 AM EDT eCW1 ([facility]) Unknown [address] [facility] Y [address] 01/08/2021 12:00:00 AM EDT eCW1 ([facility]) Outpatient Attender: JEFFREY Purcell/Giovanni/Danny stuart/Reinmarifer 12/26/2020 11:30:00 AM EDT MEDENT ([facility]) Unknown [address] [facility] Y [address] 12/26/2020 12:00:00 AM EDT eCW1 ([facility]) Unknown [address] [facility] Y [address] 12/25/2020 12:00:00 AM EDT eCW1 ([facility]) Office Visit Attender: Marielena LANDRY Physical Therapy 03:45:00 PM EDT MEDENT ([facility]) Unknown [address] [facility] [place] [address] 12/12/2020 12:00:00 AM EST eCW1 ([facility]) Unknown [address] [facility] Y [address] 12/12/2020 12:00:00 AM EST eCW1 ([facility]) Outpatient [address] [facility] Y [address] 12/11/2020 12:00:00 AM EST [facility] Unknown [address] [facility] Y [address] 12/11/2020 12:00:00 AM EST eCW1 ([facility]) Outpatient [address] [facility] Y [address] 12/10/2020 12:00:00 AM EST [facility]CW1 [facility] Outpatient Attender: ITZEL IRIZARRY [facility] Office 02/2021 02:15:00 PM EST MEDENT ([facility] Unknown [address] [facility] Y [address] 12/07/2020 12:00:00 AM EST eCW1 ([facility]) Unknown [address] [facility] Y [address] 12/07/2020 12:00:00 AM EST eCW1 ([facility]) Unknown [address] [facility] Y [address] 12/06/2020 12:00:00 AM EST eCW1 ([facility]) Unknown [address] [facility] Y [id number] 12/05/2020 12:00:00 AM EST eCW1 ([facility]) Unknown [address] [facility] Y [address] 12/03/2020 12:00:00 AM EST [facility]CW1 [facility] Unknown [address] [facility] Y [address] 11/29/2020 12:00:00 AM EST [facility]CW1 ([facility]) Unknown [address] [facility] Y [address] 11/27/2020 12:00:00 AM EST eCW1 ([facility]) Unknown [address] [facility] [place] [address] 11/22/2020 12:00:00 AM EST eCW1 ([facility]) Outpatient [address] [facility] Y [address] 11/20/2020 12:00:00 AM EST eCW1 ([facility]) Outpatient Attender: TANESHA crow 11/17/2020 08:35:00 AM EST MEDENT ([facility]) Unknown [address] [facility] Y [address] 11/09/2020 12:00:00 AM EST eCW1 ([facility]) Outpatient Attender: ITZEL IRIZARRY [facility] Office 11/2020 01:30:00 PM EST MEDENT ([facility] Unknown [address] [facility] Y [address] 10/30/2020 12:00:00 AM EST [facility]CW1 ([facility]) Outpatient [address] [facility] Y [address] 10/09/2020 12:00:00 AM EST eCW1 ([facility]) Unknown [address] [facility] Y [address] 10/02/2020 12:00:00 AM EST [facility]CW1 [facility]) Unknown [address] [facility] Y [address] 09/24/2020 12:00:00 AM EST eCW1 ([facility]) Outpatient [address] [facility] [place] [address] 09/24/2020 12:00:00 AM EST eCW1 ([facility]) Unknown [address] [facility] [place] [address] 09/21/2020 12:00:00 AM EST eCW1 ([facility]) Unknown [address] [facility] [place] [address] 09/21/2020 12:00:00 AM EST eCW1 ([facility]) Unknown [address] [facility] [place] [address] 09/11/2020 12:00:00 AM EST eCW1 ([facility]) Unknown [address] [facility] [place] [address] 09/10/2020 12:00:00 AM EST eCW1 ([facility]) Unknown [address] [facility] [place] [address] 09/06/2020 12:00:00 AM EST eCW1 ([facility]) Unknown [address] [facility] [place] [address] 09/06/2020 12:00:00 AM EST eCW1 ([facility]) Office Visit Attender: ITZEL IRIZARRY [facility] Office 11/2019 09:30:00 AM EST MEDENT ([facility] Unknown [address] [facility] [place] [address] 09/03/2020 12:00:00 AM EST eCW1 ([facility]) Unknown [address] [facility] Y [address] 08/23/2020 12:00:00 AM EST eCW1 ([facility]) Unknown [address] [facility] Y [address] 08/20/2020 12:00:00 AM EST eCW1 ([facility]) Office Visit Attender: ITZEL IRIZARRY [facility] Office 08/05 01:30:00 PM EST MEDENT ([facility] Unknown [address] [facility] [address] 08/13/2020 12:00:00 AM EST eCW1 ([facility]) Unknown [address] [facility] [address] 08/09/2020 12:00:00 AM EST eCW1 ([facility]) (WND STRALINA) Stretcher Required Patients [address] [place] [address] 08/09/2020 12:00:00 AM EST eCW1 ([facility]) Unknown [address] [facility] [id number] 08/08/2020 12:00:00 AM EST eCW1 ([facility]) Outpatient [address] [facility] [id number] 08/08/2020 12:00:00 AM EST eCW1 ([facility]) Unknown [address] [facility] [id number] 08/08/2020 12:00:00 AM EST eCW1 ([facility]) Outpatient [address] [facility] [address] 08/07/2020 12:00:00 AM EST eCW1 ([facility]) Unknown [address] [facility] [id number] 08/07/2020 12:00:00 AM EST eCW1 ([facility]) Office Visit Attender: ITZEL IRIZARRY [facility] Office 11/2019 02:00:00 PM EST MEDENT ([facility] Unknown [address] [facility] [id number] 08/06/2020 12:00:00 AM EST eCW1 ([facility]) (WND STRTCH) Stretcher Required Patients [address] [place] [address] 07/26/2020 12:00:00 AM EDT eCW1 ([facility]) Office [facility]: [facility] 08:45:00 AM EDT MEDENT ([facility] Outpatient [address] [facility] [place] [address] 07/17/2020 12:00:00 AM EDT eCW1 ([facility]) Outpatient Attender: TANESHA Segura ry 07/14/2020 11:10:00 AM EDT MEDENT ([facility]) Unknown [address] [facility] [place] [address] 07/10/2020 12:00:00 AM EDT eCW1 ([facility]) Outpatient Attender: YVETTE VALENCIA MDReferrer: YVETTE SANTILLAN .CT-SJP 07/03/2020 11:53:21 AM EDT [facility] Outpatient JACQUE.[email or web address] 06/29/2020 12:00:00 AM EDT [facility] Immunizations Vaccine Date Status Description Data Source(s) COVID-19 dose #2 given elsewhere Unspecified 01/07/2021 03:4 8:00 PM EDT completed eCW1 ([facility]) COVID-19 dose #2 given elsewhere Unspecified 01/07/2021 03:4 8:00 PM EDT completed eCW1 ([facility]) COVID-19 dose #2 given elsewhere Unspecified 01/07/2021 03:4 8:00 PM EDT completed eCW1 ([facility]) COVID-19 dose #2 given elsewhere Unspecified 01/07/2021 03:4 8:00 PM EDT completed eCW1 ([facility]) COVID-19 dose #2 given elsewhere Unspecified 01/07/2021 03:4 8:00 PM EDT completed eCW1 ([facility]) COVID-19 dose #2 given elsewhere Unspecified 01/07/2021 03:4 8:00 PM EDT completed eCW1 ([facility]) COVID-19 dose #2 given elsewhere Unspecified 01/07/2021 03:4 8:00 PM EDT completed eCW1 ([facility]) COVID-19 dose #2 given elsewhere Unspecified 01/07/2021 03:4 8:00 PM EDT completed eCW1 ([facility]) COVID-19 dose #2 given elsewhere Unspecified 01/07/2021 03:4 8:00 PM EDT completed eCW1 ([facility]) COVID-19 dose #2 given elsewhere Unspecified 01/07/2021 03:4 8:00 PM EDT completed eCW1 ([facility]) COVID-19 dose #2 given elsewhere Unspecified 01/07/2021 03:4 8:00 PM EDT completed eCW1 ([facility]) COVID-19 dose #2 given elsewhere Unspecified 01/07/2021 03:4 8:00 PM EDT completed eCW1 ([facility]) COVID-19 dose #2 given elsewhere Unspecified 01/07/2021 03:4 8:00 PM EDT completed eCW1 ([facility]) COVID-19 dose #2 given elsewhere Unspecified 01/07/2021 03:4 8:00 PM EDT completed eCW1 ([facility]) COVID-19 dose #2 given elsewhere Unspecified 01/07/2021 03:4 8:00 PM EDT completed eCW1 ([facility]) COVID-19 dose #2 given elsewhere Unspecified 01/07/2021 03:4 8:00 PM EDT completed eCW1 ([facility]) COVID-19 dose #2 given elsewhere Unspecified 01/07/2021 03:4 8:00 PM EDT completed eCW1 ([facility]) COVID-19 dose #2 given elsewhere Unspecified 01/07/2021 03:4 8:00 PM EDT completed eCW1 ([facility]) COVID-19 dose #2 given elsewhere Unspecified 01/07/2021 03:4 8:00 PM EDT completed eCW1 ([facility]) COVID-19 dose #2 given elsewhere Unspecified 01/07/2021 03:4 8:00 PM EDT completed eCW1 ([facility]) COVID-19 dose #2 given elsewhere Unspecified 01/07/2021 03:4 8:00 PM EDT completed eCW1 ([facility]) COVID-19 dose #2 given elsewhere Unspecified 01/07/2021 03:4 8:00 PM EDT completed eCW1 ([facility]) COVID-19 dose #2 given elsewhere Unspecified 01/07/2021 03:4 8:00 PM EDT completed eCW1 ([facility]) COVID-19 dose #2 given elsewhere Unspecified 01/07/2021 03:4 8:00 PM EDT completed eCW1 ([facility]) COVID-19 dose #2 given elsewhere Unspecified 01/07/2021 03:4 8:00 PM EDT completed eCW1 ([facility]) COVID-19 dose #2 given elsewhere Unspecified 01/07/2021 03:4 8:00 PM EDT completed eCW1 ([facility]) COVID-19 dose #2 given elsewhere Unspecified 01/07/2021 03:4 8:00 PM EDT completed eCW1 ([facility]) COVID-19 dose #2 given elsewhere Unspecified 01/07/2021 03:4 8:00 PM EDT completed eCW1 ([facility]) COVID-19 dose #2 given elsewhere Unspecified 01/07/2021 03:4 8:00 PM EDT completed eCW1 ([facility]) COVID-19 dose #2 given elsewhere Unspecified 01/07/2021 03:4 8:00 PM EDT completed eCW1 ([facility]) COVID-19 dose #2 given elsewhere Unspecified 01/07/2021 03:4 8:00 PM EDT completed eCW1 ([facility]) COVID-19 dose #2 given elsewhere Unspecified 01/07/2021 03:4 8:00 PM EDT completed eCW1 ([facility]) COVID-19 dose #2 given elsewhere Unspecified 01/07/2021 03:4 8:00 PM EDT completed eCW1 ([facility]) COVID-19 dose #2 given elsewhere Unspecified 01/07/2021 03:4 8:00 PM EDT completed eCW1 ([facility]) COVID-19 dose #2 given elsewhere Unspecified 01/07/2021 03:4 8:00 PM EDT completed eCW1 ([facility]) COVID-19 dose #2 given elsewhere Unspecified 01/07/2021 03:4 8:00 PM EDT completed eCW1 ([facility]) COVID-19 dose #2 given elsewhere Unspecified 01/07/2021 03:4 8:00 PM EDT completed eCW1 ([facility]) COVID-19 dose #2 given elsewhere Unspecified 01/07/2021 03:4 8:00 PM EDT completed eCW1 ([facility]) COVID-19 dose #2 given elsewhere Unspecified 01/07/2021 03:4 8:00 PM EDT completed eCW1 ([facility]) COVID-19 dose #2 given elsewhere Unspecified 01/07/2021 03:4 8:00 PM EDT completed eCW1 ([facility]) COVID-19 dose #2 given elsewhere Unspecified 01/07/2021 03:4 8:00 PM EDT completed eCW1 ([facility]) COVID-19 dose #2 given elsewhere Unspecified 01/07/2021 03:4 8:00 PM EDT completed eCW1 ([facility]) COVID-19 dose #2 given elsewhere Unspecified 01/07/2021 03:4 8:00 PM EDT completed eCW1 ([facility]) COVID-19 dose #2 given elsewhere Unspecified 01/07/2021 03:4 8:00 PM EDT completed eCW1 ([facility]) COVID-19 VACCINE Moderna 01/07/2021 12:00:00 AM EDT completed [employer] Vaccine Series Complete: YESThis Data wa s Submitted to [facility] Via [employer]. COVID-19 dose #1 given elsewhere Unspecified 12/11/2020 10:0 8:00 AM EST completed eCW1 ([facility]) COVID-19 dose #1 given elsewhere Unspecified 12/11/2020 10:0 8:00 AM EST completed eCW1 ([facility]) COVID-19 dose #1 given elsewhere Unspecified 12/11/2020 10:0 8:00 AM EST completed eCW1 ([facility]) COVID-19 dose #1 given elsewhere Unspecified 12/11/2020 10:0 8:00 AM EST completed eCW1 ([facility]) COVID-19 dose #1 given elsewhere Unspecified 12/11/2020 10:0 8:00 AM EST completed eCW1 ([facility]) COVID-19 dose #1 given elsewhere Unspecified 12/11/2020 10:0 8:00 AM EST completed eCW1 ([facility]) COVID-19 dose #1 given elsewhere Unspecified 12/11/2020 10:0 8:00 AM EST completed eCW1 ([facility]) COVID-19 dose #1 given elsewhere Unspecified 12/11/2020 10:0 8:00 AM EST completed eCW1 ([facility]) COVID-19 dose #1 given elsewhere Unspecified 12/11/2020 10:0 8:00 AM EST completed eCW1 ([facility]) COVID-19 dose #1 given elsewhere Unspecified 12/11/2020 10:0 8:00 AM EST completed eCW1 ([facility]) COVID-19 dose #1 given elsewhere Unspecified 12/11/2020 10:0 8:00 AM EST completed eCW1 ([facility]) COVID-19 dose #1 given elsewhere Unspecified 12/11/2020 10:0 8:00 AM EST completed eCW1 ([facility]) COVID-19 dose #1 given elsewhere Unspecified 12/11/2020 10:0 8:00 AM EST completed eCW1 ([facility]) COVID-19 dose #1 given elsewhere Unspecified 12/11/2020 10:0 8:00 AM EST completed eCW1 ([facility]) COVID-19 dose #1 given elsewhere Unspecified 12/11/2020 10:0 8:00 AM EST completed eCW1 ([facility] [facility] COVID-19 dose #1 given elsewhere Unspecified 12/11/2020 10:0 8:00 AM EST completed eCW1 ([facility]) COVID-19 dose #1 given elsewhere Unspecified 12/11/2020 10:0 8:00 AM EST completed eCW1 ([facility]) COVID-19 dose #1 given elsewhere Unspecified 12/11/2020 10:0 8:00 AM EST completed eCW1 ([facility]) COVID-19 dose #1 given elsewhere Unspecified 12/11/2020 10:0 8:00 AM EST completed eCW1 ([facility]) COVID-19 dose #1 given elsewhere Unspecified 12/11/2020 10:0 8:00 AM EST completed eCW1 ([facility]) COVID-19 dose #1 given elsewhere Unspecified 12/11/2020 10:0 8:00 AM EST completed eCW1 ([facility]) COVID-19 dose #1 given elsewhere Unspecified 12/11/2020 10:0 8:00 AM EST completed eCW1 ([facility]) COVID-19 dose #1 given elsewhere Unspecified 12/11/2020 10:0 8:00 AM EST completed eCW1 ([facility]) COVID-19 dose #1 given elsewhere Unspecified 12/11/2020 10:0 8:00 AM EST completed eCW1 ([facility]) COVID-19 dose #1 given elsewhere Unspecified 12/11/2020 10:0 8:00 AM EST completed eCW1 ([facility]) COVID-19 dose #1 given elsewhere Unspecified 12/11/2020 10:0 8:00 AM EST completed eCW1 ([facility]) COVID-19 dose #1 given elsewhere Unspecified 12/11/2020 10:0 8:00 AM EST completed eCW1 ([facility]) COVID-19 dose #1 given elsewhere Unspecified 12/11/2020 10:0 8:00 AM EST completed eCW1 ([facility]) COVID-19 dose #1 given elsewhere Unspecified 12/11/2020 10:0 8:00 AM EST completed eCW1 ([facility]) COVID-19 dose #1 given elsewhere Unspecified 12/11/2020 10:0 8:00 AM EST completed eCW1 ([facility]) COVID-19 dose #1 given elsewhere Unspecified 12/11/2020 10:0 8:00 AM EST completed eCW1 ([facility]) COVID-19 dose #1 given elsewhere Unspecified 12/11/2020 10:0 8:00 AM EST completed eCW1 ([facility]) COVID-19 dose #1 given elsewhere Unspecified 12/11/2020 10:0 8:00 AM EST completed eCW1 ([facility]) COVID-19 dose #1 given elsewhere Unspecified 12/11/2020 10:0 8:00 AM EST completed eCW1 ([facility]) COVID-19 dose #1 given elsewhere Unspecified 12/11/2020 10:0 8:00 AM EST completed eCW1 ([facility]) COVID-19 dose #1 given elsewhere Unspecified 12/11/2020 10:0 8:00 AM EST completed eCW1 ([facility]) COVID-19 dose #1 given elsewhere Unspecified 12/11/2020 10:0 8:00 AM EST completed eCW1 ([facility]) COVID-19 dose #1 given elsewhere Unspecified 12/11/2020 10:0 8:00 AM EST completed eCW1 ([facility]) COVID-19 dose #1 given elsewhere Unspecified 12/11/2020 10:0 8:00 AM EST completed eCW1 ([facility]) COVID-19 dose #1 given elsewhere Unspecified 12/11/2020 10:0 8:00 AM EST completed eCW1 ([facility]) COVID-19 dose #1 given elsewhere Unspecified 12/11/2020 10:0 8:00 AM EST completed eCW1 ([facility]) COVID-19 dose #1 given elsewhere Unspecified 12/11/2020 10:0 8:00 AM EST completed eCW1 ([facility]) COVID-19 dose #1 given elsewhere Unspecified 12/11/2020 10:0 8:00 AM EST completed eCW1 ([facility]) COVID-19 dose #1 given elsewhere Unspecified 12/11/2020 10:0 8:00 AM EST completed eCW1 ([facility]) COVID-19 dose #1 given elsewhere Unspecified 12/11/2020 10:0 8:00 AM EST completed eCW1 ([facility]) COVID-19 dose #1 given elsewhere Unspecified 12/11/2020 10:0 8:00 AM EST completed eCW1 ([facility]) COVID-19 dose #1 given elsewhere Unspecified 12/11/2020 10:0 8:00 AM EST completed eCW1 ([facility]) COVID-19 dose #1 given elsewhere Unspecified 12/11/2020 10:0 8:00 AM EST completed eCW1 ([facility]) COVID-19 dose #1 given elsewhere Unspecified 12/11/2020 10:0 8:00 AM EST completed eCW1 ([facility]) COVID-19 dose #1 given elsewhere Unspecified 12/11/2020 10:0 8:00 AM EST completed eCW1 ([facility]) COVID-19 dose #1 given elsewhere Unspecified 12/11/2020 10:0 8:00 AM EST completed eCW1 ([facility]) COVID-19 dose #1 given elsewhere Unspecified 12/11/2020 10:0 8:00 AM EST completed eCW1 ([facility]) COVID-19 dose #1 given elsewhere Unspecified 12/11/2020 10:0 8:00 AM EST completed eCW1 ([facility]) COVID-19 dose #1 given elsewhere Unspecified 12/11/2020 10:0 8:00 AM EST completed eCW1 ([facility]) COVID-19 dose #1 given elsewhere Unspecified 12/11/2020 10:0 8:00 AM EST completed eCW1 ([facility]) COVID-19 dose #1 given elsewhere Unspecified 12/11/2020 10:0 8:00 AM EST completed eCW1 ([facility]) COVID-19 VACCINE Moderna 12/10/2020 12:00:00 AM EST completed [employer] Vaccine Series Complete: NOThis Data was Submitted to [facility] Via [employer]. influenza, recombinant, quadrIvalent,injectable, prese rvative free 11/20/2020 01:35:00 PM EST completed eCW1 ([facility]) influenza, recombinant, quadrIvalent,injectable, prese rvative free 11/20/2020 01:35:00 PM EST completed eCW1 ([facility]) influenza, recombinant, quadrIvalent,injectable, prese rvative free 11/20/2020 01:35:00 PM EST completed eCW1 ([facility]) influenza, recombinant, quadrIvalent,injectable, prese rvative free 11/20/2020 01:35:00 PM EST completed eCW1 ([facility]) influenza, recombinant, quadrIvalent,injectable, prese rvative free 11/20/2020 01:35:00 PM EST completed eCW1 ([facility]) influenza, recombinant, quadrIvalent,injectable, prese rvative free 11/20/2020 01:35:00 PM EST completed eCW1 ([facility]) influenza, recombinant, quadrIvalent,injectable, prese rvative free 11/20/2020 01:35:00 PM EST completed eCW1 ([facility]) influenza, recombinant, quadrIvalent,injectable, prese rvative free 11/20/2020 01:35:00 PM EST completed eCW1 ([facility]) influenza, recombinant, quadrIvalent,injectable, prese rvative free 11/20/2020 01:35:00 PM EST completed eCW1 ([facility]) influenza, recombinant, quadrIvalent,injectable, prese rvative free 11/20/2020 01:35:00 PM EST completed eCW1 ([facility]) influenza, recombinant, quadrIvalent,injectable, prese rvative free 11/20/2020 01:35:00 PM EST completed eCW1 ([facility]) influenza, recombinant, quadrIvalent,injectable, prese rvative free 11/20/2020 01:35:00 PM EST completed eCW1 ([facility]) influenza, recombinant, quadrIvalent,injectable, prese rvative free 11/20/2020 01:35:00 PM EST completed eCW1 ([facility]) influenza, recombinant, quadrIvalent,injectable, prese rvative free 11/20/2020 01:35:00 PM EST completed eCW1 ([facility]) influenza, recombinant, quadrIvalent,injectable, prese rvative free 11/20/2020 01:35:00 PM EST completed eCW1 ([facility]) influenza, recombinant, quadrIvalent,injectable, prese rvative free 11/20/2020 01:35:00 PM EST completed eCW1 ([facility]) influenza, recombinant, quadrIvalent,injectable, prese rvative free 11/20/2020 01:35:00 PM EST completed eCW1 ([facility]) influenza, recombinant, quadrIvalent,injectable, prese rvative free 11/20/2020 01:35:00 PM EST completed eCW1 ([facility]) influenza, recombinant, quadrIvalent,injectable, prese rvative free 11/20/2020 01:35:00 PM EST completed eCW1 ([facility]) influenza, recombinant, quadrIvalent,injectable, prese rvative free 11/20/2020 01:35:00 PM EST completed eCW1 ([facility]) influenza, recombinant, quadrIvalent,injectable, prese rvative free 11/20/2020 01:35:00 PM EST completed eCW1 ([facility]) influenza, recombinant, quadrIvalent,injectable, prese rvative free 11/20/2020 01:35:00 PM EST completed eCW1 ([facility]) influenza, recombinant, quadrIvalent,injectable, prese rvative free 11/20/2020 01:35:00 PM EST completed eCW1 ([facility]) influenza, recombinant, quadrIvalent,injectable, prese rvative free 11/20/2020 01:35:00 PM EST completed eCW1 ([facility]) influenza, recombinant, quadrIvalent,injectable, prese rvative free 11/20/2020 01:35:00 PM EST completed eCW1 ([facility]) influenza, recombinant, quadrIvalent,injectable, prese rvative free 11/20/2020 01:35:00 PM EST completed eCW1 ([facility]) influenza, recombinant, quadrIvalent,injectable, prese rvative free 11/20/2020 01:35:00 PM EST completed eCW1 ([facility]) influenza, recombinant, quadrIvalent,injectable, prese rvative free 11/20/2020 01:35:00 PM EST completed eCW1 ([facility]) influenza, recombinant, quadrIvalent,injectable, prese rvative free 11/20/2020 01:35:00 PM EST completed eCW1 ([facility]) influenza, recombinant, quadrIvalent,injectable, prese rvative free 11/20/2020 01:35:00 PM EST completed eCW1 ([facility]) influenza, recombinant, quadrIvalent,injectable, prese rvative free 11/20/2020 01:35:00 PM EST completed eCW1 ([facility]) influenza, recombinant, quadrIvalent,injectable, prese rvative free 11/20/2020 01:35:00 PM EST completed eCW1 ([facility]) influenza, recombinant, quadrIvalent,injectable, prese rvative free 11/20/2020 01:35:00 PM EST completed eCW1 ([facility]) influenza, recombinant, quadrIvalent,injectable, prese rvative free 11/20/2020 01:35:00 PM EST completed eCW1 ([facility]) influenza, recombinant, quadrIvalent,injectable, prese rvative free 11/20/2020 01:35:00 PM EST completed eCW1 ([facility]) influenza, recombinant, quadrIvalent,injectable, prese rvative free 11/20/2020 01:35:00 PM EST completed eCW1 ([facility]) influenza, recombinant, quadrIvalent,injectable, prese rvative free 11/20/2020 01:35:00 PM EST completed eCW1 ([facility]) influenza, recombinant, quadrIvalent,injectable, prese rvative free 11/20/2020 01:35:00 PM EST completed eCW1 ([facility]) influenza, recombinant, quadrIvalent,injectable, prese rvative free 11/20/2020 01:35:00 PM EST completed eCW1 ([facility]) influenza, recombinant, quadrIvalent,injectable, prese rvative free 11/20/2020 01:35:00 PM EST completed eCW1 ([facility]) influenza, recombinant, quadrIvalent,injectable, prese rvative free 11/20/2020 01:35:00 PM EST completed eCW1 ([facility]) influenza, recombinant, quadrIvalent,injectable, prese rvative free 11/20/2020 01:35:00 PM EST completed eCW1 ([facility]) influenza, recombinant, quadrIvalent,injectable, prese rvative free 11/20/2020 01:35:00 PM EST completed eCW1 ([facility]) influenza, recombinant, quadrIvalent,injectable, prese rvative free 11/20/2020 01:35:00 PM EST completed eCW1 ([facility]) influenza, recombinant, quadrIvalent,injectable, prese rvative free 11/20/2020 01:35:00 PM EST completed eCW1 ([facility]) influenza, recombinant, quadrIvalent,injectable, prese rvative free 11/20/2020 01:35:00 PM EST completed eCW1 ([facility]) influenza, recombinant, quadrIvalent,injectable, prese rvative free 11/20/2020 01:35:00 PM EST completed eCW1 ([facility]) influenza, recombinant, quadrIvalent,injectable, prese rvative free 11/20/2020 01:35:00 PM EST completed eCW1 ([facility]) influenza, recombinant, quadrIvalent,injectable, prese rvative free 11/20/2020 01:35:00 PM EST completed eCW1 ([facility]) influenza, recombinant, quadrIvalent,injectable, prese rvative free 11/20/2020 01:35:00 PM EST completed eCW1 ([facility]) influenza, recombinant, quadrIvalent,injectable, prese rvative free 11/20/2020 01:35:00 PM EST completed eCW1 ([facility]) influenza, recombinant, quadrIvalent,injectable, prese rvative free 11/20/2020 01:35:00 PM EST completed eCW1 ([facility]) influenza, recombinant, quadrIvalent,injectable, prese rvative free 11/20/2020 01:35:00 PM EST completed eCW1 ([facility]) influenza, recombinant, quadrIvalent,injectable, prese rvative free 11/20/2020 01:35:00 PM EST completed eCW1 ([facility]) influenza, recombinant, quadrIvalent,injectable, prese rvative free 11/20/2020 01:35:00 PM EST completed eCW1 ([facility]) influenza, recombinant, quadrIvalent,injectable, prese rvative free 11/20/2020 01:35:00 PM EST completed eCW1 ([facility]) influenza, recombinant, quadrIvalent,injectable, prese rvative free 11/20/2020 01:35:00 PM EST completed eCW1 ([facility]) influenza, recombinant, quadrIvalent,injectable, prese rvative free 11/20/2020 01:35:00 PM EST completed eCW1 ([facility]) influenza, recombinant, quadrIvalent,injectable, prese rvative free 11/20/2020 01:35:00 PM EST completed eCW1 ([facility]) influenza, recombinant, quadrIvalent,injectable, prese rvative free 11/20/2020 01:35:00 PM EST completed eCW1 ([facility]) influenza, recombinant, quadrIvalent,injectable, prese rvative free 11/20/2020 01:35:00 PM EST completed eCW1 ([facility]) influenza, recombinant, quadrIvalent,injectable, prese rvative free 11/20/2020 01:35:00 PM EST completed eCW1 ([facility]) influenza, recombinant, quadrIvalent,injectable, prese rvative free 11/20/2020 01:35:00 PM EST completed eCW1 ([facility]) influenza, recombinant, quadrIvalent,injectable, prese rvative free 11/20/2020 01:35:00 PM EST completed eCW1 ([facility]) influenza, recombinant, quadrIvalent,injectable, prese rvative free 11/20/2020 01:35:00 PM EST completed eCW1 ([facility]) influenza, recombinant, quadrIvalent,injectable, prese rvative free 06/29/2020 02:19:00 PM EDT completed eCW1 ([facility]) influenza, recombinant, quadrIvalent,injectable, prese rvative free 06/29/2020 02:19:00 PM EDT completed eCW1 ([facility]) influenza, recombinant, quadrIvalent,injectable, prese rvative free 06/29/2020 02:19:00 PM EDT completed eCW1 ([facility]) influenza, recombinant, quadrIvalent,injectable, prese rvative free 06/29/2020 02:19:00 PM EDT completed eCW1 ([facility]) influenza, recombinant, quadrIvalent,injectable, prese rvative free 06/29/2020 02:19:00 PM EDT completed eCW1 ([facility]) influenza, recombinant, quadrIvalent,injectable, prese rvative free 06/29/2020 02:19:00 PM EDT completed eCW1 ([facility]) influenza, recombinant, quadrIvalent,injectable, prese rvative free 06/29/2020 02:19:00 PM EDT completed eCW1 ([facility]) influenza, recombinant, quadrIvalent,injectable, prese rvative free 06/29/2020 02:19:00 PM EDT completed eCW1 ([facility]) influenza, recombinant, quadrIvalent,injectable, prese rvative free 06/29/2020 02:19:00 PM EDT completed eCW1 ([facility]) influenza, recombinant, quadrIvalent,injectable, prese rvative free 06/29/2020 02:19:00 PM EDT completed eCW1 ([facility]) influenza, recombinant, quadrIvalent,injectable, prese rvative free 06/29/2020 02:19:00 PM EDT completed eCW1 ([facility]) influenza, recombinant, quadrIvalent,injectable, prese rvative free 06/29/2020 02:19:00 PM EDT completed eCW1 ([facility]) influenza, recombinant, quadrIvalent,injectable, prese rvative free 06/29/2020 02:19:00 PM EDT completed eCW1 ([facility]) influenza, recombinant, quadrIvalent,injectable, prese rvative free 06/29/2020 02:19:00 PM EDT completed eCW1 ([facility]) influenza, recombinant, quadrIvalent,injectable, prese rvative free 06/29/2020 02:19:00 PM EDT completed eCW1 ([facility]) influenza, recombinant, quadrIvalent,injectable, prese rvative free 06/29/2020 02:19:00 PM EDT completed eCW1 ([facility]) influenza, recombinant, quadrIvalent,injectable, prese rvative free 06/29/2020 02:19:00 PM EDT completed eCW1 ([facility]) influenza, recombinant, quadrIvalent,injectable, prese rvative free 06/29/2020 02:19:00 PM EDT completed eCW1 ([facility]) influenza, recombinant, quadrIvalent,injectable, prese rvative free 06/29/2020 02:19:00 PM EDT completed eCW1 ([facility]) influenza, recombinant, quadrIvalent,injectable, prese rvative free 06/29/2020 02:19:00 PM EDT completed eCW1 ([facility]) influenza, recombinant, quadrIvalent,injectable, prese rvative free 06/29/2020 02:19:00 PM EDT completed eCW1 ([facility]) influenza, recombinant, quadrIvalent,injectable, prese rvative free 06/29/2020 02:19:00 PM EDT completed eCW1 ([facility]) influenza, recombinant, quadrIvalent,injectable, prese rvative free 06/29/2020 02:19:00 PM EDT completed eCW1 ([facility]) influenza, recombinant, quadrIvalent,injectable, prese rvative free 06/29/2020 02:19:00 PM EDT completed eCW1 ([facility]) influenza, recombinant, quadrIvalent,injectable, prese rvative free 06/29/2020 02:19:00 PM EDT completed eCW1 ([facility]) influenza, recombinant, quadrIvalent,injectable, prese rvative free 06/29/2020 02:19:00 PM EDT completed eCW1 ([facility]) influenza, recombinant, quadrIvalent,injectable, prese rvative free 06/29/2020 02:19:00 PM EDT completed eCW1 ([facility]) influenza, recombinant, quadrIvalent,injectable, prese rvative free 06/29/2020 02:19:00 PM EDT completed eCW1 ([facility]) influenza, recombinant, quadrIvalent,injectable, prese rvative free 06/29/2020 02:19:00 PM EDT completed eCW1 ([facility]) influenza, recombinant, quadrIvalent,injectable, prese rvative free 06/29/2020 02:19:00 PM EDT completed eCW1 ([facility]) influenza, recombinant, quadrIvalent,injectable, prese rvative free 06/29/2020 02:19:00 PM EDT completed eCW1 ([facility]) influenza, recombinant, quadrIvalent,injectable, prese rvative free 06/29/2020 02:19:00 PM EDT completed eCW1 ([facility]) influenza, recombinant, quadrIvalent,injectable, prese rvative free 06/29/2020 02:19:00 PM EDT completed eCW1 ([facility]) influenza, recombinant, quadrIvalent,injectable, prese rvative free 06/29/2020 02:19:00 PM EDT completed eCW1 ([facility]) influenza, recombinant, quadrIvalent,injectable, prese rvative free 06/29/2020 02:19:00 PM EDT completed eCW1 ([facility]) influenza, recombinant, quadrIvalent,injectable, prese rvative free 06/29/2020 02:19:00 PM EDT completed eCW1 ([facility]) influenza, recombinant, quadrIvalent,injectable, prese rvative free 06/29/2020 02:19:00 PM EDT completed eCW1 ([facility]) influenza, recombinant, quadrIvalent,injectable, prese rvative free 06/29/2020 02:19:00 PM EDT completed eCW1 ([facility]) influenza, recombinant, quadrIvalent,injectable, prese rvative free 06/29/2020 02:19:00 PM EDT completed eCW1 ([facility]) influenza, recombinant, quadrIvalent,injectable, prese rvative free 06/29/2020 02:19:00 PM EDT completed eCW1 ([facility]) influenza, recombinant, quadrIvalent,injectable, prese rvative free 06/29/2020 02:19:00 PM EDT completed eCW1 ([facility]) influenza, recombinant, quadrIvalent,injectable, prese rvative free 06/29/2020 02:19:00 PM EDT completed eCW1 ([facility]) influenza, recombinant, quadrIvalent,injectable, prese rvative free 06/29/2020 02:19:00 PM EDT completed eCW1 ([facility]) influenza, recombinant, quadrIvalent,injectable, prese rvative free 06/29/2020 02:19:00 PM EDT completed eCW1 ([facility]) influenza, recombinant, quadrIvalent,injectable, prese rvative free 06/29/2020 02:19:00 PM EDT completed eCW1 ([facility]) influenza, recombinant, quadrIvalent,injectable, prese rvative free 06/29/2020 02:19:00 PM EDT completed eCW1 ([facility]) influenza, recombinant, quadrIvalent,injectable, prese rvative free 06/29/2020 02:19:00 PM EDT completed eCW1 ([facility]) influenza, recombinant, quadrIvalent,injectable, prese rvative free 06/29/2020 02:19:00 PM EDT completed eCW1 ([facility]) influenza, recombinant, quadrIvalent,injectable, prese rvative free 06/29/2020 02:19:00 PM EDT completed eCW1 ([facility]) influenza, recombinant, quadrIvalent,injectable, prese rvative free 06/29/2020 02:19:00 PM EDT completed eCW1 ([facility]) influenza, recombinant, quadrIvalent,injectable, prese rvative free 06/29/2020 02:19:00 PM EDT completed eCW1 ([facility]) influenza, recombinant, quadrIvalent,injectable, prese rvative free 06/29/2020 02:19:00 PM EDT completed eCW1 ([facility]) influenza, recombinant, quadrIvalent,injectable, prese rvative free 06/29/2020 02:19:00 PM EDT completed eCW1 ([facility]) influenza, recombinant, quadrIvalent,injectable, prese rvative free 06/29/2020 02:19:00 PM EDT completed eCW1 ([facility]) influenza, recombinant, quadrIvalent,injectable, prese rvative free 06/29/2020 02:19:00 PM EDT completed eCW1 ([facility]) influenza, recombinant, quadrIvalent,injectable, prese rvative free 06/29/2020 02:19:00 PM EDT completed eCW1 ([facility]) Medications Medication Brand Name Start Date Product Form Dose Route Admi nistrative Instructions Pharmacy Instructions Status Indications Reaction Description Data Source(s) Prednisone 10 MG Oral Tablet Prednisone 08/05/2021 12:00:00 AM EDT active [facility] ([facility] Hydroxyzine Hydrochloride 25 MG Oral Tablet hydrOXYzin e HCl 25 MG hydrOXYzine HCl 25 MG 07/22/2021 12:00:00 AM EDT 1.0 {tablet} ac tive hydrOXYzine HCl 25 MG eCW1 ([facility]) Hydroxyzine Hydrochloride 25 MG Oral Tablet hydrOXYzin e HCl 25 MG hydrOXYzine HCl 25 MG 07/22/2021 12:00:00 AM EDT 1.0 {tablet} ac tive hydrOXYzine HCl 25 MG eCW1 ([facility]) Hydroxyzine Hydrochloride 25 MG Oral Tablet hydrOXYzin e HCl 25 MG hydrOXYzine HCl 25 MG 07/22/2021 12:00:00 AM EDT 1.0 {tablet} ac tive hydrOXYzine HCl 25 MG eCW1 ([facility]) Hydroxyzine Hydrochloride 25 MG Oral Tablet hydrOXYzin e HCl 25 MG hydrOXYzine HCl 25 MG 07/22/2021 12:00:00 AM EDT 1.0 {tablet} ac tive hydrOXYzine HCl 25 MG eCW1 ([facility]) Hydroxyzine Hydrochloride 25 MG Oral Tablet hydrOXYzin e HCl 25 MG hydrOXYzine HCl 25 MG 07/22/2021 12:00:00 AM EDT 1.0 {tablet} ac tive hydrOXYzine HCl 25 MG eCW1 ([facility]) Hydroxyzine Hydrochloride 25 MG Oral Tablet hydrOXYzin e HCl 25 MG hydrOXYzine HCl 25 MG 07/22/2021 12:00:00 AM EDT 1.0 {tablet} ac tive hydrOXYzine HCl 25 MG eCW1 ([facility]) Betamethasone 0.5 MG/ML Topical Cream Betamethasone Di propionate 0.05 % Betamethasone Dipropionate 0.05 % 06/28/2021 12:00:00 AM EDT 1.0 {application} active Betamethasone Dipropiona te 0.05 % eCW1 ([facility]) Betamethasone 0.5 MG/ML Topical Cream Betamethasone Di propionate 0.05 % Betamethasone Dipropionate 0.05 % 06/28/2021 12:00:00 AM EDT 1.0 {application} active Betamethasone Dipropiona te 0.05 % eCW1 ([facility]) Betamethasone 0.5 MG/ML Topical Cream Betamethasone Di propionate 0.05 % Betamethasone Dipropionate 0.05 % 06/28/2021 12:00:00 AM EDT 1.0 {application} active Betamethasone Dipropiona te 0.05 % eCW1 ([facility]) Betamethasone 0.5 MG/ML Topical Cream Betamethasone Di propionate 0.05 % Betamethasone Dipropionate 0.05 % 06/28/2021 12:00:00 AM EDT 1.0 {application} active Betamethasone Dipropiona te 0.05 % eCW1 ([facility]) Betamethasone 0.5 MG/ML Topical Cream Betamethasone Di propionate 0.05 % Betamethasone Dipropionate 0.05 % 06/28/2021 12:00:00 AM EDT 1.0 {application} active Betamethasone Dipropiona te 0.05 % eCW1 ([facility]) meloxicam 15 MG Oral Tablet Meloxicam 06/21/2021 12:00:00 AM EDT ORAL active MEDENT ([facility]) Inject Triamcinolone Acetonide 10 ML, [facility] 4434-8138-77 06/04/2021 12:00:00 AM EDT completed MEDENT ([facility] Medication administered onsite Inject Dexamthosone Phosphate 42833-538-08 06/04/2021 12:00:00 A M EDT completed MEDENT ([facility] Medication administered onsite Triamcinolone Acetonide 1 MG/ML Topical Cream Triamcin olone Acetonide 0.1 % Triamcinolone Acetonide 0.1 % 05/16/2021 12:00:00 AM EDT 1.0 {appli cation} active Triamcinolone Acetonide 0 .1 % eCW1 ([facility]) Triamcinolone Acetonide 1 MG/ML Topical Cream Triamcin olone Acetonide 0.1 % Triamcinolone Acetonide 0.1 % 05/16/2021 12:00:00 AM EDT 1.0 {appli cation} active Triamcinolone Acetonide 0 .1 % eCW1 ([facility]) Triamcinolone Acetonide 1 MG/ML Topical Cream Triamcin olone Acetonide 0.1 % Triamcinolone Acetonide 0.1 % 05/16/2021 12:00:00 AM EDT 1.0 {appli cation} active Triamcinolone Acetonide 0 .1 % eCW1 ([facility]) Triamcinolone Acetonide 1 MG/ML Topical Cream Triamcin olone Acetonide 0.1 % Triamcinolone Acetonide 0.1 % 05/16/2021 12:00:00 AM EDT 1.0 {appli cation} active Triamcinolone Acetonide 0 .1 % eCW1 ([facility]) Triamcinolone Acetonide 1 MG/ML Topical Cream Triamcin olone Acetonide 0.1 % Triamcinolone Acetonide 0.1 % 05/16/2021 12:00:00 AM EDT 1.0 {appli cation} active Triamcinolone Acetonide 0 .1 % eCW1 ([facility]) Triamcinolone Acetonide 1 MG/ML Topical Cream Triamcin olone Acetonide 0.1 % Triamcinolone Acetonide 0.1 % 05/16/2021 12:00:00 AM EDT 1.0 {appli cation} active Triamcinolone Acetonide 0 .1 % eCW1 ([facility]) Triamcinolone Acetonide 1 MG/ML Topical Cream Triamcin olone Acetonide 0.1 % Triamcinolone Acetonide 0.1 % 05/16/2021 12:00:00 AM EDT 1.0 {appli cation} active Triamcinolone Acetonide 0 .1 % eCW1 ([facility]) Triamcinolone Acetonide 1 MG/ML Topical Cream Triamcin olone Acetonide 0.1 % Triamcinolone Acetonide 0.1 % 05/16/2021 12:00:00 AM EDT 1.0 {appli cation} active Triamcinolone Acetonide 0 .1 % eCW1 ([facility]) Triamcinolone Acetonide 1 MG/ML Topical Cream Triamcin olone Acetonide 0.1 % Triamcinolone Acetonide 0.1 % 05/16/2021 12:00:00 AM EDT 1.0 {appli cation} active Triamcinolone Acetonide 0 .1 % eCW1 ([facility]) Triamcinolone Acetonide 1 MG/ML Topical Cream Triamcin olone Acetonide 0.1 % Triamcinolone Acetonide 0.1 % 05/16/2021 12:00:00 AM EDT 1.0 {appli cation} active Triamcinolone Acetonide 0 .1 % eCW1 ([facility]) Triamcinolone Acetonide 1 MG/ML Topical Cream Triamcin olone Acetonide 0.1 % Triamcinolone Acetonide 0.1 % 05/16/2021 12:00:00 AM EDT 1.0 {appli cation} active Triamcinolone Acetonide 0 .1 % eCW1 ([facility]) Triamcinolone Acetonide 1 MG/ML Topical Cream Triamcin olone Acetonide 0.1 % Triamcinolone Acetonide 0.1 % 05/16/2021 12:00:00 AM EDT 1.0 {appli cation} active Triamcinolone Acetonide 0 .1 % eCW1 ([facility]) Triamcinolone Acetonide 1 MG/ML Topical Cream Triamcin olone Acetonide 0.1 % Triamcinolone Acetonide 0.1 % 05/16/2021 12:00:00 AM EDT 1.0 {appli cation} active Triamcinolone Acetonide 0 .1 % eCW1 ([facility]) Triamcinolone Acetonide 1 MG/ML Topical Cream Triamcin olone Acetonide 0.1 % Triamcinolone Acetonide 0.1 % 05/16/2021 12:00:00 AM EDT 1.0 {appli cation} active Triamcinolone Acetonide 0 .1 % eCW1 ([facility]) Triamcinolone Acetonide 1 MG/ML Topical Cream Triamcin olone Acetonide 0.1 % Triamcinolone Acetonide 0.1 % 05/16/2021 12:00:00 AM EDT 1.0 {appli cation} active Triamcinolone Acetonide 0 .1 % eCW1 ([facility]) Triamcinolone Acetonide 1 MG/ML Topical Cream Triamcin olone Acetonide 0.1 % Triamcinolone Acetonide 0.1 % 05/16/2021 12:00:00 AM EDT 1.0 {appli cation} active Triamcinolone Acetonide 0 .1 % eCW1 ([facility]) Triamcinolone Acetonide 1 MG/ML Topical Cream Triamcin olone Acetonide 0.1 % Triamcinolone Acetonide 0.1 % 05/16/2021 12:00:00 AM EDT 1.0 {appli cation} active Triamcinolone Acetonide 0 .1 % eCW1 ([facility]) Triamcinolone Acetonide 1 MG/ML Topical Cream Triamcin olone Acetonide 0.1 % Triamcinolone Acetonide 0.1 % 05/16/2021 12:00:00 AM EDT 1.0 {appli cation} active Triamcinolone Acetonide 0 .1 % eCW1 ([facility]) Triamcinolone Acetonide 1 MG/ML Topical Cream Triamcin olone Acetonide 0.1 % Triamcinolone Acetonide 0.1 % 05/16/2021 12:00:00 AM EDT 1.0 {appli cation} active Triamcinolone Acetonide 0 .1 % eCW1 ([facility]) Ondansetron 8 MG Oral Tablet Ondansetron HCl 8 MG Ondansetro n HCl 8 MG 05/15/2021 12:00:00 AM EDT 1.0 {tablet_as_needed} active Ondansetron HCl 8 MG eCW1 ([facility]) Ondansetron 8 MG Oral Tablet Ondansetron HCl 8 MG Ondansetro n HCl 8 MG 05/15/2021 12:00:00 AM EDT 1.0 {tablet_as_needed} active Ondansetron HCl 8 MG eCW1 ([facility]) Ondansetron 8 MG Oral Tablet Ondansetron HCl 8 MG Ondansetro n HCl 8 MG 05/15/2021 12:00:00 AM EDT 1.0 {tablet_as_needed} active Ondansetron HCl 8 MG eCW1 ([facility]) Ondansetron 8 MG Oral Tablet Ondansetron HCl 8 MG Ondansetro n HCl 8 MG 05/15/2021 12:00:00 AM EDT 1.0 {tablet_as_needed} active Ondansetron HCl 8 MG eCW1 ([facility]) Ondansetron 8 MG Oral Tablet Ondansetron HCl 8 MG Ondansetro n HCl 8 MG 05/15/2021 12:00:00 AM EDT 1.0 {tablet_as_needed} active Ondansetron HCl 8 MG eCW1 ([facility]) Ondansetron 8 MG Oral Tablet Ondansetron HCl 8 MG Ondansetro n HCl 8 MG 05/15/2021 12:00:00 AM EDT 1.0 {tablet_as_needed} active Ondansetron HCl 8 MG eCW1 ([facility]) Ondansetron 8 MG Oral Tablet Ondansetron HCl 8 MG Ondansetro n HCl 8 MG 05/15/2021 12:00:00 AM EDT 1.0 {tablet_as_needed} active Ondansetron HCl 8 MG eCW1 ([facility]) Ondansetron 8 MG Oral Tablet Ondansetron HCl 8 MG Ondansetro n HCl 8 MG 05/15/2021 12:00:00 AM EDT 1.0 {tablet_as_needed} active Ondansetron HCl 8 MG eCW1 ([facility]) Ondansetron 8 MG Oral Tablet Ondansetron HCl 8 MG Ondansetro n HCl 8 MG 05/15/2021 12:00:00 AM EDT 1.0 {tablet_as_needed} active Ondansetron HCl 8 MG eCW1 ([facility]) Ondansetron 8 MG Oral Tablet Ondansetron HCl 8 MG Ondansetro n HCl 8 MG 05/15/2021 12:00:00 AM EDT 1.0 {tablet_as_needed} active Ondansetron HCl 8 MG eCW1 ([facility]) Ondansetron 8 MG Oral Tablet Ondansetron HCl 8 MG Ondansetro n HCl 8 MG 05/15/2021 12:00:00 AM EDT 1.0 {tablet_as_needed} active Ondansetron HCl 8 MG eCW1 ([facility]) Ondansetron 8 MG Oral Tablet Ondansetron HCl 8 MG Ondansetro n HCl 8 MG 05/15/2021 12:00:00 AM EDT 1.0 {tablet_as_needed} active Ondansetron HCl 8 MG eCW1 ([facility]) Ondansetron 8 MG Oral Tablet Ondansetron HCl 8 MG Ondansetro n HCl 8 MG 05/15/2021 12:00:00 AM EDT 1.0 {tablet_as_needed} active Ondansetron HCl 8 MG eCW1 ([facility]) Ondansetron 8 MG Oral Tablet Ondansetron HCl 8 MG Ondansetro n HCl 8 MG 05/15/2021 12:00:00 AM EDT 1.0 {tablet_as_needed} active Ondansetron HCl 8 MG eCW1 ([facility]) Ondansetron 8 MG Oral Tablet Ondansetron HCl 8 MG Ondansetro n HCl 8 MG 05/15/2021 12:00:00 AM EDT 1.0 {tablet_as_needed} active Ondansetron HCl 8 MG eCW1 ([facility]) Ondansetron 8 MG Oral Tablet Ondansetron HCl 8 MG Ondansetro n HCl 8 MG 05/15/2021 12:00:00 AM EDT 1.0 {tablet_as_needed} active Ondansetron HCl 8 MG eCW1 ([facility]) Ondansetron 8 MG Oral Tablet Ondansetron HCl 8 MG Ondansetro n HCl 8 MG 05/15/2021 12:00:00 AM EDT 1.0 {tablet_as_needed} active Ondansetron HCl 8 MG eCW1 ([facility]) Ondansetron 8 MG Oral Tablet Ondansetron HCl 8 MG Ondansetro n HCl 8 MG 05/15/2021 12:00:00 AM EDT 1.0 {tablet_as_needed} active Ondansetron HCl 8 MG eCW1 ([facility]) Ondansetron 8 MG Oral Tablet Ondansetron HCl 8 MG Ondansetro n HCl 8 MG 05/15/2021 12:00:00 AM EDT 1.0 {tablet_as_needed} active Ondansetron HCl 8 MG eCW1 ([facility]) Ondansetron 8 MG Oral Tablet Ondansetron HCl 8 MG Ondansetro n HCl 8 MG 05/15/2021 12:00:00 AM EDT 1.0 {tablet_as_needed} active Ondansetron HCl 8 MG eCW1 ([facility]) tramadol hydrochloride 50 MG Oral Tablet traMADol (ULT ELOY) 50 MG tablet traMADol (ULTRAM) 50 MG tablet 04/17/2021 12:00:00 AM EDT 50 mg Oral active Take 50 mg by mouth 2 (two) times a day [facility] topiramate 50 MG Oral Tablet topiramate (TOPAMAX) 50 M G tablet topiramate (TOPAMAX) 50 MG tablet 03/26/2021 12:00:00 AM EDT 50 mg Oral active Take 50 mg by mouth nightly [facility] Medrol Medrol 03/20/2021 12:00:00 AM EDT active MEDENT ([facility]) Hydrocortisone 10 MG/ML / Neomycin 3.5 M G/ML / Polymyxin B 69248 UNT/ML Otic Suspension Wuvvjnxn-Uykhhxafq-KM 3.5-52299-3 Qtoibgdl-Nnvyiydiw-ZV 3.5-59141-2 03/18/2021 12:00:00 AM EDT 4.0 {drops_into_affected_ear} active Pgwlielf-Kbebeixbo-RI 3.5-35262-3 eCW1 ([facility]) Hydrocortisone 10 MG/ML / Neomycin 3.5 M G/ML / Polymyxin B 83541 UNT/ML Otic Suspension Ewvhaxyw-Mpqnxvtze-MV 3.5-61551-0 Vtfsslgf-Rawrzvxkq-KQ 3.5-70310-0 03/18/2021 12:00:00 AM EDT 4.0 {drops_into_affected_ear} active Reukdvwp-Clmmwhokd-II 3.5-67681-4 eCW1 ([facility]) Hydrocortisone 10 MG/ML / Neomycin 3.5 M G/ML / Polymyxin B 39401 UNT/ML Otic Suspension Sqwfqwni-Erxywvluw-SQ 3.5-85379-8 Pbaodmmb-Veajkbwce-CF 3.5-74557-9 03/18/2021 12:00:00 AM EDT 4.0 {drops_into_affected_ear} active Houzipkx-Vratcwyfb-BV 3.5-06092-3 eCW1 ([facility]) Hydrocortisone 10 MG/ML / Neomycin 3.5 M G/ML / Polymyxin B 53756 UNT/ML Otic Suspension Gaxkfytu-Ytekcescp-YZ 3.5-23399-0 Yitzcorh-Wwzpjtgqw-IU 3.5-96687-7 03/18/2021 12:00:00 AM EDT 4.0 {drops_into_affected_ear} active Wfcrlymh-Smcxasquy-SN 3.561574-7 eCW1 ([facility]) Hydrocortisone 10 MG/ML / Neomycin 3.5 M G/ML / Polymyxin B 23654 UNT/ML Otic Suspension Klnaxsag-Bmwkmdole-LP 3.561890-2 Mrrvsvdk-Clwwkvnbt-CV 3.5-14541-0 03/18/2021 12:00:00 AM EDT 4.0 {drops_into_affected_ear} active Cywpslzs-Ciiwmsbmx-MM 3.503398-9 eCW1 ([facility]) Hydrocortisone 10 MG/ML / Neomycin 3.5 M G/ML / Polymyxin B 01280 UNT/ML Otic Suspension Dfynqcsv-Wkmamohpp-EB 3.583420-3 Fhlilxzz-Rczbzilpj-FQ 3.5-33527-8 03/18/2021 12:00:00 AM EDT 4.0 {drops_into_affected_ear} active Rlsnvaud-Pjbyoqzpw-AX 3.545880-4 eCW1 ([facility]) Hydrocortisone 10 MG/ML / Neomycin 3.5 M G/ML / Polymyxin B 03975 UNT/ML Otic Suspension Qgyhhttn-Gwrjxpuul-PJ 3.503091-1 Lxahgwpp-Lidzhpzjm-PP 3.512201-9 03/18/2021 12:00:00 AM EDT 4.0 {drops_into_affected_ear} active Kxokdart-Gpnftnjda-AU 3.5-42394-0 eCW1 ([facility]) Hydrocortisone 10 MG/ML / Neomycin 3.5 M G/ML / Polymyxin B 51810 UNT/ML Otic Suspension Bwzfbfsn-Vwwuvivzq-BY 3.5-51459-6 Amcfjnrk-Fwtqpqcpr-LO 3.5-44569-1 03/18/2021 12:00:00 AM EDT 4.0 {drops_into_affected_ear} active Ymyvdqtg-Lofvjpwgs-BQ 3.505081-6 eCW1 ([facility]) Hydrocortisone 10 MG/ML / Neomycin 3.5 M G/ML / Polymyxin B 57875 UNT/ML Otic Suspension Mzfhmpwt-Zqlxpngrx-KE 3.5-32777-4 Gbskilsh-Avajyyshb-LC 3.5-54241-9 03/18/2021 12:00:00 AM EDT 4.0 {drops_into_affected_ear} active Xzwgpvdg-Dbzdgajvj-CL 3.533222-0 eCW1 ([facility]) Hydrocortisone 10 MG/ML / Neomycin 3.5 M G/ML / Polymyxin B 64609 UNT/ML Otic Suspension Nbndtgzl-Ghcyddahd-DG 3.5-78176-4 Vpiybrwq-Cxngivmwx-HI 3.5-99537-6 03/18/2021 12:00:00 AM EDT 4.0 {drops_into_affected_ear} active Blgzncwv-Rrhxzrzdi-QM 3.501536-5 eCW1 ([facility]) Hydrocortisone 10 MG/ML / Neomycin 3.5 M G/ML / Polymyxin B 33407 UNT/ML Otic Suspension Zphdbwyo-Qhyicaqmf-OH 3.5-92650-6 Kwytcuay-Nlvdhfxqb-UB 3.5-65655-2 03/18/2021 12:00:00 AM EDT 4.0 {drops_into_affected_ear} active Areytebx-Fdwbpgmtq-SH 3.578258-6 eCW1 ([facility]) Hydrocortisone 10 MG/ML / Neomycin 3.5 M G/ML / Polymyxin B 62292 UNT/ML Otic Suspension Ctrdibnw-Fjmksxznn-II 3.5-09048-6 Zoqbgecl-Qjfcjgoxn-WL 3.5-41993-8 03/18/2021 12:00:00 AM EDT 4.0 {drops_into_affected_ear} active Egupqwvh-Vmjjscrfy-VH 3.5-93943-9 eCW1 ([facility]) Hydrocortisone 10 MG/ML / Neomycin 3.5 M G/ML / Polymyxin B 42107 UNT/ML Otic Suspension Rzjioolr-Gljkvifil-YO 3.5-37170-4 Upomcwpt-Lubmfipwz-GP 3.5-67087-9 03/18/2021 12:00:00 AM EDT 4.0 {drops_into_affected_ear} active Vdfrxpzf-Pmardmdeb-YC 3.5-27206-7 eCW1 ([facility]) Hydrocortisone 10 MG/ML / Neomycin 3.5 M G/ML / Polymyxin B 07679 UNT/ML Otic Suspension Uttqhxmx-Yihzrzesd-NM 3.5-01257-2 Kiskeeod-Ajikygmjh-DO 3.5-85212-9 03/18/2021 12:00:00 AM EDT 4.0 {drops_into_affected_ear} active Ubxrhomx-Gfwbbaaih-EI 3.586921-5 eCW1 ([facility]) Hydrocortisone 10 MG/ML / Neomycin 3.5 M G/ML / Polymyxin B 20153 UNT/ML Otic Suspension Veefvpbk-Tvjrutkuu-IX 3.544789-4 Rwnrtgze-Fhserobxr-JJ 3.514783-4 03/18/2021 12:00:00 AM EDT 4.0 {drops_into_affected_ear} active Usprlkhi-Vpbwdfvrd-TB 3.527543-1 eCW1 ([facility]) Hydrocortisone 10 MG/ML / Neomycin 3.5 M G/ML / Polymyxin B 34165 UNT/ML Otic Suspension Ytdnmayn-Wgmbmmyqo-QS 3.515149-3 Dbjknjfj-Jetnzfjpo-XR 3.563885-8 03/18/2021 12:00:00 AM EDT 4.0 {drops_into_affected_ear} active Kjfvthvt-Lxykozdva-QP 3.502103-5 eCW1 ([facility]) Hydrocortisone 10 MG/ML / Neomycin 3.5 M G/ML / Polymyxin B 70397 UNT/ML Otic Suspension Kutofjtj-Mtjchqjkw-MZ 3.573419-2 Ynjluybx-Sghzuyhpx-YT 3.574422-8 03/18/2021 12:00:00 AM EDT 4.0 {drops_into_affected_ear} active Gxxqnggp-Kgecmazpv-UM 3.586290-9 eCW1 ([facility]) Hydrocortisone 10 MG/ML / Neomycin 3.5 M G/ML / Polymyxin B 78025 UNT/ML Otic Suspension Svaimihf-Vpdfpoeaw-JG 3.5-03412-9 Qsmlwxcu-Lkexlbynu-VK 3.5-32672-2 03/18/2021 12:00:00 AM EDT 4.0 {drops_into_affected_ear} active Xpwiejdj-Fbdowhfcj-GA 3.5-86260-2 eCW1 ([facility]) Hydrocortisone 10 MG/ML / Neomycin 3.5 M G/ML / Polymyxin B 33108 UNT/ML Otic Suspension ybuvuopt-dhhlybzdv-zeepjejedixwmp (CORTISPORIN) 3.5-98353-1 otic suspension zsfzybem-irmyppmgw-tkodtymdkedvft (CORTI SPORIN) 3.5-10089-2 otic suspension 03/18/2021 12:00:00 AM EDT 4 [drp] active Administer 4 drops into both ears 3 (three) times a day [facility] Hydrocortisone 10 MG/ML / Neomycin 3.5 M G/ML / Polymyxin B 55889 UNT/ML Otic Suspension Witqaujc-Hywxovtyb-MC 3.5-27646-9 Cuiohplj-Bjljtfvcl-KO 3.5-53838-2 03/18/2021 12:00:00 AM EDT 4.0 {drops_into_affected_ear} active Vwuaasvg-Mqgivufzj-WE 3.542112-6 eCW1 ([facility]) Hydrocortisone 10 MG/ML / Neomycin 3.5 M G/ML / Polymyxin B 61523 UNT/ML Otic Suspension Thudnyea-Odtliiere-PN 3.5-31899-8 Zcsiuwue-Spfpyqerx-NT 3.5-69421-7 03/18/2021 12:00:00 AM EDT 4.0 {drops_into_affected_ear} active Gunvkcyd-Hytpsoeph-SV 3.5-15382-9 eCW1 ([facility]) Hydrocortisone 10 MG/ML / Neomycin 3.5 M G/ML / Polymyxin B 82933 UNT/ML Otic Suspension Hgpsdgor-Xpzodsygd-JI 3.5-27189-5 Fetopvbq-Nvhnuxoog-PN 3.5-33888-1 03/18/2021 12:00:00 AM EDT 4.0 {drops_into_affected_ear} active Aegyyish-Nazieeveg-EO 3.5-81481-0 eCW1 ([facility]) Hydrocortisone 10 MG/ML / Neomycin 3.5 M G/ML / Polymyxin B 08917 UNT/ML Otic Suspension Oprdvjnl-Hmmpetsdn-SV 3.5-67801-8 Zhqlndaf-Xbjvwulzl-FJ 3.5-33357-0 03/18/2021 12:00:00 AM EDT 4.0 {drops_into_affected_ear} active Djxdqxvs-Dkswdyzqj-UJ 3.5-31288-7 eCW1 ([facility]) Hydrocortisone 10 MG/ML / Neomycin 3.5 M G/ML / Polymyxin B 71048 UNT/ML Otic Suspension Lyyubnwi-Ktqriqvkz-CO 3.5-43219-9 Lprogqud-Rfbhlfwjw-WR 3.5-57118-7 03/18/2021 12:00:00 AM EDT 4.0 {drops_into_affected_ear} active Hiwzcbel-Wpcgoryjr-UI 3.5-37942-3 eCW1 ([facility]) Hydrocortisone 10 MG/ML / Neomycin 3.5 M G/ML / Polymyxin B 92633 UNT/ML Otic Suspension Impddduz-Skscmgrrj-ZN 3.5-25843-6 Oqbqfsgx-Xktvdqsny-OJ 3.5-62377-6 03/18/2021 12:00:00 AM EDT 4.0 {drops_into_affected_ear} active Coegxtcm-Umokioqtf-MV 3.550761-0 eCW1 ([facility]) Hydrocortisone 10 MG/ML / Neomycin 3.5 M G/ML / Polymyxin B 96119 UNT/ML Otic Suspension Iafpgwwa-Qppcitees-FT 3.5-95651-4 Rwbahlvs-Ecocgdkqh-CT 3.5-45561-0 03/18/2021 12:00:00 AM EDT 4.0 {drops_into_affected_ear} active Mxyqcinh-Xmsvzgvlu-VD 3.5-10013-1 eCW1 ([facility]) Hydrocortisone 10 MG/ML / Neomycin 3.5 M G/ML / Polymyxin B 87001 UNT/ML Otic Suspension Lpcuwgqc-Oewzuyjly-IN 3.5-07189-3 Ghydydkr-Izymeolsd-VF 3.5-70235-3 03/18/2021 12:00:00 AM EDT 4.0 {drops_into_affected_ear} active Wixszjkm-Sqigoaayz-VC 3.5-87125-8 eCW1 ([facility]) Hydrocortisone 10 MG/ML / Neomycin 3.5 M G/ML / Polymyxin B 18227 UNT/ML Otic Suspension Tljypqlh-Azqeztsnp-CT 3.5-13802-5 Yzttphgp-Xuzkyyhou-DB 3.5-12802-6 03/18/2021 12:00:00 AM EDT 4.0 {drops_into_affected_ear} active Ohywnetl-Hfktvruoq-FB 3.526190-5 eCW1 ([facility]) Hydrocortisone 10 MG/ML / Neomycin 3.5 M G/ML / Polymyxin B 12275 UNT/ML Otic Suspension Meptpgnf-Nqxziqrgh-YO 3.557029-0 Iutybdex-Aktxynzxk-BG 3.5-13471-8 03/18/2021 12:00:00 AM EDT 4.0 {drops_into_affected_ear} active Akrqkbox-Hpuuptkzi-QK 3.506239-6 eCW1 ([facility]) Hydrocortisone 10 MG/ML / Neomycin 3.5 M G/ML / Polymyxin B 42906 UNT/ML Otic Suspension Inyirdtb-Qukegwyla-PW 3.522363-0 Cpjjqsra-Tzcaemefq-HC 3.5-17613-3 03/18/2021 12:00:00 AM EDT 4.0 {drops_into_affected_ear} active Puuorsqu-Nhmsvkdsq-GO 3.552940-2 eCW1 ([facility]) Hydrocortisone 10 MG/ML / Neomycin 3.5 M G/ML / Polymyxin B 37419 UNT/ML Otic Suspension Dnymupkn-Sezssziis-IY 3.550730-2 Uuhsbvef-Wdgfqyxff-WI 3.5-11570-9 03/18/2021 12:00:00 AM EDT 4.0 {drops_into_affected_ear} active Nxevinxq-Zlbmuzdbm-MS 3.551267-7 eCW1 ([facility]) Hydrocortisone 10 MG/ML / Neomycin 3.5 M G/ML / Polymyxin B 71741 UNT/ML Otic Suspension Yysbifyq-Jitydcrdj-MQ 3.517806-9 Kzaoxqng-Vqlmttheo-DB 3.5-06473-9 03/18/2021 12:00:00 AM EDT 4.0 {drops_into_affected_ear} active Cuuywxpr-Dzpbekhad-HF 3.5-42690-9 eCW1 ([facility]) Hydrocortisone 10 MG/ML / Neomycin 3.5 M G/ML / Polymyxin B 75462 UNT/ML Otic Suspension Lsfrepxu-Nkrkmspro-TC 3.5-35837-9 Qwucwibe-Xpytuuxxb-CF 3.5-03249-3 03/18/2021 12:00:00 AM EDT 4.0 {drops_into_affected_ear} active Yhnylrsf-Bsualxdqk-EY 3.5-91026-8 eCW1 ([facility]) Hydrocortisone 10 MG/ML / Neomycin 3.5 M G/ML / Polymyxin B 81984 UNT/ML Otic Suspension Nspvnlcz-Zevcpjued-AZ 3.5-18597-1 Cvzuvujz-Rlcawlfay-DC 3.5-03721-8 03/18/2021 12:00:00 AM EDT 4.0 {drops_into_affected_ear} active Kggsselk-Nkkkboife-WU 3.5-57133-6 eCW1 ([facility]) Hydrocortisone 10 MG/ML / Neomycin 3.5 M G/ML / Polymyxin B 21707 UNT/ML Otic Suspension Hpdqkgbn-Aqaxnddkr-OE 3.5-31917-3 Popfoiti-Bpidgebww-XU 3.5-41727-6 03/18/2021 12:00:00 AM EDT 4.0 {drops_into_affected_ear} active Teqaayyg-Holuthhbp-GN 3.5-07357-6 eCW1 ([facility]) POLYETHYLENE GLYCOL 3350 142 MG/ML Oral Solution [Carlene lax] MiraLax 17 GM/SCOOP MiraLax 17 GM/SCOOP 03/15/2021 12:00:00 AM EDT active MiraLax 17 GM/SCOOP eCW1 ([facility]) POLYETHYLENE GLYCOL 3350 142 MG/ML Oral Solution [Carlene lax] MiraLax 17 GM/SCOOP MiraLax 17 GM/SCOOP 03/15/2021 12:00:00 AM EDT active MiraLax 17 GM/SCOOP eCW1 ([facility]) Docusate Sodium 100 MG Oral Capsule [Colace] Colace 100 MG C olace 100 MG 03/15/2021 12:00:00 AM EDT 1.0 {capsule} active Colace 100 MG eCW1 ([facility]) POLYETHYLENE GLYCOL 3350 142 MG/ML Oral Solution [Carlene lax] MiraLax 17 GM/SCOOP MiraLax 17 GM/SCOOP 03/15/2021 12:00:00 AM EDT active MiraLax 17 GM/SCOOP eCW1 ([facility]) Docusate Sodium 100 MG Oral Capsule [Colace] Colace 100 MG C olace 100 MG 03/15/2021 12:00:00 AM EDT 1.0 {capsule} active Colace 100 MG eCW1 ([facility]) Docusate Sodium 100 MG Oral Capsule [Colace] Colace 100 MG C olace 100 MG 03/15/2021 12:00:00 AM EDT 1.0 {capsule} active Colace 100 MG eCW1 ([facility]) Docusate Sodium 100 MG Oral Capsule [Colace] Colace 100 MG C olace 100 MG 03/15/2021 12:00:00 AM EDT 1.0 {capsule} active Colace 100 MG eCW1 ([facility]) POLYETHYLENE GLYCOL 3350 142 MG/ML Oral Solution [Carlene lax] MiraLax 17 GM/SCOOP MiraLax 17 GM/SCOOP 03/15/2021 12:00:00 AM EDT active MiraLax 17 GM/SCOOP eCW1 ([facility]) POLYETHYLENE GLYCOL 3350 142 MG/ML Oral Solution [Carlene lax] MiraLax 17 GM/SCOOP MiraLax 17 GM/SCOOP 03/15/2021 12:00:00 AM EDT active MiraLax 17 GM/SCOOP eCW1 ([facility]) Docusate Sodium 100 MG Oral Capsule [Colace] Colace 100 MG C olace 100 MG 03/15/2021 12:00:00 AM EDT 1.0 {capsule} active Colace 100 MG eCW1 ([facility]) POLYETHYLENE GLYCOL 3350 142 MG/ML Oral Solution [Carlene lax] MiraLax 17 GM/SCOOP MiraLax 17 GM/SCOOP 03/15/2021 12:00:00 AM EDT active MiraLax 17 GM/SCOOP eCW1 ([facility]) Docusate Sodium 100 MG Oral Capsule [Colace] Colace 100 MG C olace 100 MG 03/15/2021 12:00:00 AM EDT 1.0 {capsule} active Colace 100 MG eCW1 ([facility]) POLYETHYLENE GLYCOL 3350 142 MG/ML Oral Solution [Carlene lax] MiraLax 17 GM/SCOOP MiraLax 17 GM/SCOOP 03/15/2021 12:00:00 AM EDT active MiraLax 17 GM/SCOOP eCW1 ([facility]) Docusate Sodium 100 MG Oral Capsule [Colace] Colace 100 MG C olace 100 MG 03/15/2021 12:00:00 AM EDT 1.0 {capsule} active Colace 100 MG eCW1 ([facility]) POLYETHYLENE GLYCOL 3350 142 MG/ML Oral Solution [Carlene lax] MiraLax 17 GM/SCOOP MiraLax 17 GM/SCOOP 03/15/2021 12:00:00 AM EDT active MiraLax 17 GM/SCOOP eCW1 ([facility]) POLYETHYLENE GLYCOL 3350 142 MG/ML Oral Solution [Carlene lax] MiraLax 17 GM/SCOOP MiraLax 17 GM/SCOOP 03/15/2021 12:00:00 AM EDT active MiraLax 17 GM/SCOOP eCW1 ([facility]) POLYETHYLENE GLYCOL 3350 142 MG/ML Oral Solution polyethylene glycol (GLYCOLAX) 17 GM/SCOOP powder polyethylene glycol (GLYCOLAX) 17 GM/SCOOP powder 03/05 12:00:00 AM EDT 17 g Oral active Take 17 g by mouth as needed [facility] POLYETHYLENE GLYCOL 3350 142 MG/ML Oral Solution [Carlene lax] MiraLax 17 GM/SCOOP MiraLax 17 GM/SCOOP 03/15/2021 12:00:00 AM EDT active MiraLax 17 GM/SCOOP eCW1 ([facility]) POLYETHYLENE GLYCOL 3350 142 MG/ML Oral Solution [Carlene lax] MiraLax 17 GM/SCOOP MiraLax 17 GM/SCOOP 03/15/2021 12:00:00 AM EDT active MiraLax 17 GM/SCOOP eCW1 ([facility]) Docusate Sodium 100 MG Oral Capsule [Colace] Colace 100 MG C olace 100 MG 03/15/2021 12:00:00 AM EDT 1.0 {capsule} active Colace 100 MG eCW1 ([facility]) POLYETHYLENE GLYCOL 3350 142 MG/ML Oral Solution [Carlene lax] MiraLax 17 GM/SCOOP MiraLax 17 GM/SCOOP 03/15/2021 12:00:00 AM EDT active MiraLax 17 GM/SCOOP eCW1 ([facility]) POLYETHYLENE GLYCOL 3350 142 MG/ML Oral Solution [Carlene lax] MiraLax 17 GM/SCOOP MiraLax 17 GM/SCOOP 03/15/2021 12:00:00 AM EDT active MiraLax 17 GM/SCOOP eCW1 ([facility]) POLYETHYLENE GLYCOL 3350 142 MG/ML Oral Solution [Carlene lax] MiraLax 17 GM/SCOOP MiraLax 17 GM/SCOOP 03/15/2021 12:00:00 AM EDT active MiraLax 17 GM/SCOOP eCW1 ([facility]) Docusate Sodium 100 MG Oral Capsule [Colace] Colace 100 MG C olace 100 MG 03/15/2021 12:00:00 AM EDT 1.0 {capsule} active Colace 100 MG eCW1 ([facility]) Docusate Sodium 100 MG Oral Capsule [Colace] Colace 100 MG C olace 100 MG 03/15/2021 12:00:00 AM EDT 1.0 {capsule} active Colace 100 MG eCW1 ([facility]) POLYETHYLENE GLYCOL 3350 142 MG/ML Oral Solution [Carlene lax] MiraLax 17 GM/SCOOP MiraLax 17 GM/SCOOP 03/15/2021 12:00:00 AM EDT active MiraLax 17 GM/SCOOP eCW1 ([facility]) POLYETHYLENE GLYCOL 3350 142 MG/ML Oral Solution [Carlene lax] MiraLax 17 GM/SCOOP MiraLax 17 GM/SCOOP 03/15/2021 12:00:00 AM EDT active MiraLax 17 GM/SCOOP eCW1 ([facility]) POLYETHYLENE GLYCOL 3350 142 MG/ML Oral Solution [Carlene lax] MiraLax 17 GM/SCOOP MiraLax 17 GM/SCOOP 03/15/2021 12:00:00 AM EDT active MiraLax 17 GM/SCOOP eCW1 ([facility]) POLYETHYLENE GLYCOL 3350 142 MG/ML Oral Solution [Carlene lax] MiraLax 17 GM/SCOOP MiraLax 17 GM/SCOOP 03/15/2021 12:00:00 AM EDT active MiraLax 17 GM/SCOOP eCW1 ([facility]) Docusate Sodium 100 MG Oral Capsule [Colace] Colace 100 MG C olace 100 MG 03/15/2021 12:00:00 AM EDT 1.0 {capsule} active Colace 100 MG eCW1 ([facility]) POLYETHYLENE GLYCOL 3350 142 MG/ML Oral Solution [Carlene lax] MiraLax 17 GM/SCOOP MiraLax 17 GM/SCOOP 03/15/2021 12:00:00 AM EDT active MiraLax 17 GM/SCOOP eCW1 ([facility]) POLYETHYLENE GLYCOL 3350 142 MG/ML Oral Solution [Carlene lax] MiraLax 17 GM/SCOOP MiraLax 17 GM/SCOOP 03/15/2021 12:00:00 AM EDT active MiraLax 17 GM/SCOOP eCW1 ([facility]) Docusate Sodium 100 MG Oral Capsule [Colace] Colace 100 MG C olace 100 MG 03/15/2021 12:00:00 AM EDT 1.0 {capsule} active Colace 100 MG eCW1 ([facility]) POLYETHYLENE GLYCOL 3350 142 MG/ML Oral Solution [Carlene lax] MiraLax 17 GM/SCOOP MiraLax 17 GM/SCOOP 03/15/2021 12:00:00 AM EDT active MiraLax 17 GM/SCOOP eCW1 ([facility]) POLYETHYLENE GLYCOL 3350 142 MG/ML Oral Solution [Carlene lax] MiraLax 17 GM/SCOOP MiraLax 17 GM/SCOOP 03/15/2021 12:00:00 AM EDT active MiraLax 17 GM/SCOOP eCW1 ([facility]) POLYETHYLENE GLYCOL 3350 142 MG/ML Oral Solution [Carlene lax] MiraLax 17 GM/SCOOP MiraLax 17 GM/SCOOP 03/15/2021 12:00:00 AM EDT active MiraLax 17 GM/SCOOP eCW1 ([facility]) Docusate Sodium 100 MG Oral Capsule [Colace] Colace 100 MG C olace 100 MG 03/15/2021 12:00:00 AM EDT 1.0 {capsule} active Colace 100 MG eCW1 ([facility]) POLYETHYLENE GLYCOL 3350 142 MG/ML Oral Solution [Carlene lax] MiraLax 17 GM/SCOOP MiraLax 17 GM/SCOOP 03/15/2021 12:00:00 AM EDT active MiraLax 17 GM/SCOOP eCW1 ([facility]) POLYETHYLENE GLYCOL 3350 142 MG/ML Oral Solution [Carlene lax] MiraLax 17 GM/SCOOP MiraLax 17 GM/SCOOP 03/15/2021 12:00:00 AM EDT active MiraLax 17 GM/SCOOP eCW1 ([facility]) POLYETHYLENE GLYCOL 3350 142 MG/ML Oral Solution [Carlene lax] MiraLax 17 GM/SCOOP MiraLax 17 GM/SCOOP 03/15/2021 12:00:00 AM EDT active MiraLax 17 GM/SCOOP eCW1 ([facility]) Docusate Sodium 100 MG Oral Capsule [Colace] Colace 100 MG C olace 100 MG 03/15/2021 12:00:00 AM EDT 1.0 {capsule} active Colace 100 MG eCW1 ([facility]) POLYETHYLENE GLYCOL 3350 142 MG/ML Oral Solution [Carlene lax] MiraLax 17 GM/SCOOP MiraLax 17 GM/SCOOP 03/15/2021 12:00:00 AM EDT active MiraLax 17 GM/SCOOP eCW1 ([facility]) POLYETHYLENE GLYCOL 3350 142 MG/ML Oral Solution [Carlene lax] MiraLax 17 GM/SCOOP MiraLax 17 GM/SCOOP 03/15/2021 12:00:00 AM EDT active MiraLax 17 GM/SCOOP eCW1 ([facility]) POLYETHYLENE GLYCOL 3350 142 MG/ML Oral Solution [Carlene lax] MiraLax 17 GM/SCOOP MiraLax 17 GM/SCOOP 03/15/2021 12:00:00 AM EDT active MiraLax 17 GM/SCOOP eCW1 ([facility]) Docusate Sodium 100 MG Oral Capsule [Colace] Colace 100 MG C olace 100 MG 03/15/2021 12:00:00 AM EDT 1.0 {capsule} active Colace 100 MG eCW1 ([facility]) Docusate Sodium 100 MG Oral Capsule [Colace] Colace 100 MG C olace 100 MG 03/15/2021 12:00:00 AM EDT 1.0 {capsule} active Colace 100 MG eCW1 ([facility]) POLYETHYLENE GLYCOL 3350 142 MG/ML Oral Solution [Carlene lax] MiraLax 17 GM/SCOOP MiraLax 17 GM/SCOOP 03/15/2021 12:00:00 AM EDT active MiraLax 17 GM/SCOOP eCW1 ([facility]) POLYETHYLENE GLYCOL 3350 142 MG/ML Oral Solution [Carlene lax] MiraLax 17 GM/SCOOP MiraLax 17 GM/SCOOP 03/15/2021 12:00:00 AM EDT active MiraLax 17 GM/SCOOP eCW1 ([facility]) POLYETHYLENE GLYCOL 3350 142 MG/ML Oral Solution [Carlene lax] MiraLax 17 GM/SCOOP MiraLax 17 GM/SCOOP 03/15/2021 12:00:00 AM EDT active MiraLax 17 GM/SCOOP eCW1 ([facility]) POLYETHYLENE GLYCOL 3350 142 MG/ML Oral Solution [Carlene lax] MiraLax 17 GM/SCOOP MiraLax 17 GM/SCOOP 03/15/2021 12:00:00 AM EDT active MiraLax 17 GM/SCOOP eCW1 ([facility]) POLYETHYLENE GLYCOL 3350 142 MG/ML Oral Solution [Carlene lax] MiraLax 17 GM/SCOOP MiraLax 17 GM/SCOOP 03/15/2021 12:00:00 AM EDT active MiraLax 17 GM/SCOOP eCW1 ([facility]) Docusate Sodium 100 MG Oral Capsule [Colace] Colace 100 MG C olace 100 MG 03/15/2021 12:00:00 AM EDT 1.0 {capsule} active Colace 100 MG eCW1 ([facility]) Docusate Sodium 100 MG Oral Capsule [Colace] Colace 100 MG C olace 100 MG 03/15/2021 12:00:00 AM EDT 1.0 {capsule} active Colace 100 MG eCW1 ([facility]) Docusate Sodium 100 MG Oral Capsule [Colace] Colace 100 MG C olace 100 MG 03/15/2021 12:00:00 AM EDT 1.0 {capsule} active Colace 100 MG eCW1 ([facility]) Docusate Sodium 100 MG Oral Capsule [Colace] Colace 100 MG C olace 100 MG 03/15/2021 12:00:00 AM EDT 1.0 {capsule} active Colace 100 MG eCW1 ([facility]) Bisacodyl 5 MG Delayed Release Oral Tablet bisacodyl 5 MG EC tablet bisacodyl 5 MG EC tablet 03/02/2021 12:00:00 AM EDT 10 mg Oral activ e Take 10 mg by mouth daily [facility] Inject Triamcinolone Acetonide 10 ML, [facility] [id number] 02/26/2021 12:00:00 AM EDT completed [facility] ([facility] Medication administered onsite Inject Dexamthosone Phosphate 90729-636-32 02/26/2021 12:00:00 A M EDT completed [facility] ([facility] Medication administered onsite Metoprolol Tartrate 25 MG Oral Tablet me toprolol tartrate (LOPRESSOR) 25 MG tablet metoprolol tartrate (LOPRESSOR) 25 MG tablet 02/26/2021 12:0 0:00 AM EDT active TAKE 1/2 TABLET BY MOUTH @8AM [facility] Prednisone 10 MG Oral Tablet Prednisone 02/12/2021 12:00:00 AM EDT completed [facility] ([facility] Clobetasol Propionate 0.5 MG/ML Topical Cream Clobetas ol Propionate 0.05 % Clobetasol Propionate 0.05 % 01/25/2021 12:00:00 AM EDT active Clobetasol Propionate 0.05 % eCW1 ([facility]) Clobetasol Propionate 0.5 MG/ML Topical Cream Clobetas ol Propionate 0.05 % Clobetasol Propionate 0.05 % 01/25/2021 12:00:00 AM EDT active Clobetasol Propionate 0.05 % eCW1 ([facility]) Clobetasol Propionate 0.5 MG/ML Topical Cream Clobetas ol Propionate 0.05 % Clobetasol Propionate 0.05 % 01/25/2021 12:00:00 AM EDT active Clobetasol Propionate 0.05 % eCW1 ([facility]) Clobetasol Propionate 0.5 MG/ML Topical Cream Clobetas ol Propionate 0.05 % Clobetasol Propionate 0.05 % 01/25/2021 12:00:00 AM EDT active Clobetasol Propionate 0.05 % eCW1 ([facility]) Clobetasol Propionate 0.5 MG/ML Topical Cream Clobetas ol Propionate 0.05 % Clobetasol Propionate 0.05 % 01/25/2021 12:00:00 AM EDT active Clobetasol Propionate 0.05 % eCW1 ([facility]) Clobetasol Propionate 0.5 MG/ML Topical Cream Clobetas ol Propionate 0.05 % Clobetasol Propionate 0.05 % 01/25/2021 12:00:00 AM EDT active Clobetasol Propionate 0.05 % eCW1 ([facility]) Clobetasol Propionate 0.5 MG/ML Topical Cream Clobetas ol Propionate 0.05 % Clobetasol Propionate 0.05 % 01/25/2021 12:00:00 AM EDT active Clobetasol Propionate 0.05 % eCW1 ([facility]) Clobetasol Propionate 0.5 MG/ML Topical Cream Clobetas ol Propionate 0.05 % Clobetasol Propionate 0.05 % 01/25/2021 12:00:00 AM EDT active Clobetasol Propionate 0.05 % eCW1 ([facility]) Betamethasone 0.5 MG/ML / Clotrimazole 10 MG/ML Topica l Cream Clotrimazole/Betamethasone Dipropionate 12/31/2020 12:00:00 AM EDT completed [facility] ([facility] Diclofenac Sodium 0.01 MG/MG Topical Gel Diclofenac Sodium 12/07/2020 12:00:00 AM EST active [facility] ([facility] Polymyxin B 29810 UNT/ML / Trimethoprim 1 MG/ML Ophtha lmic Solution Polymyxin B Sulfate/Trimethoprim Sulfate 11/17/2020 12:00:00 AM EST OPHT HALMIC active MEDENT ([facility]) mometasone furoate 1 MG/ML Topical Cream Mometasone Furoate 11/15/2020 12:00:00 AM EST completed [facility] ([facility] Betamethasone 0.5 MG/ML Topical Cream Betamethasone Dipropio anjel 11/06/2020 12:00:00 AM EST active M EDENT ([facility] Fluocinolone Acetonide 0.1 MG/ML Otic Solution [Jeremy ic] DermOtic 0.01 % DermOtic 0.01 % 08/07/2020 12:00:00 AM EST active DermOtic 0.01 % eCW1 ([facility]) Fluocinolone Acetonide 0.1 MG/ML Otic Solution [Jeremy ic] DermOtic 0.01 % DermOtic 0.01 % 08/07/2020 12:00:00 AM EST cho spended DermOtic 0.01 % eCW1 ([facility]) Fluocinolone Acetonide 0.1 MG/ML Otic Solution [Jeremy ic] DermOtic 0.01 % DermOtic 0.01 % 08/07/2020 12:00:00 AM EST active DermOtic 0.01 % eCW1 ([facility]) Fluocinolone Acetonide 0.1 MG/ML Otic Solution [Jeremy ic] DermOtic 0.01 % DermOtic 0.01 % 08/07/2020 12:00:00 AM EST active DermOtic 0.01 % eCW1 ([facility]) Fluocinolone Acetonide 0.1 MG/ML Otic Solution [Jeremy ic] DermOtic 0.01 % DermOtic 0.01 % 08/07/2020 12:00:00 AM EST active DermOtic 0.01 % eCW1 ([facility]) Fluocinolone Acetonide 0.1 MG/ML Otic Solution [Jeremy ic] DermOtic 0.01 % DermOtic 0.01 % 08/07/2020 12:00:00 AM EST active DermOtic 0.01 % eCW1 ([facility]) Fluocinolone Acetonide 0.1 MG/ML Otic Solution [Jeremy ic] DermOtic 0.01 % DermOtic 0.01 % 08/07/2020 12:00:00 AM EST cho spended DermOtic 0.01 % eCW1 ([facility]) Fluocinolone Acetonide 0.1 MG/ML Otic Solution [Jeremy ic] DermOtic 0.01 % DermOtic 0.01 % 08/07/2020 12:00:00 AM EST active DermOtic 0.01 % eCW1 ([facility]) Fluocinolone Acetonide 0.1 MG/ML Otic Solution [Jeremy ic] DermOtic 0.01 % DermOtic 0.01 % 08/07/2020 12:00:00 AM EST active DermOtic 0.01 % eCW1 ([facility]) Fluocinolone Acetonide 0.1 MG/ML Otic Solution [Jeremy ic] DermOtic 0.01 % DermOtic 0.01 % 08/07/2020 12:00:00 AM EST active DermOtic 0.01 % eCW1 ([facility]) Fluocinolone Acetonide 0.1 MG/ML Otic Solution [Jeremy ic] DermOtic 0.01 % DermOtic 0.01 % 08/07/2020 12:00:00 AM EST active DermOtic 0.01 % eCW1 ([facility]) Fluocinolone Acetonide 0.1 MG/ML Otic Solution [Jeremy ic] DermOtic 0.01 % DermOtic 0.01 % 08/07/2020 12:00:00 AM EST active DermOtic 0.01 % eCW1 ([facility]) Fluocinolone Acetonide 0.1 MG/ML Otic Solution [Jeremy ic] DermOtic 0.01 % DermOtic 0.01 % 08/07/2020 12:00:00 AM EST active DermOtic 0.01 % eCW1 ([facility]) Fluocinolone Acetonide 0.1 MG/ML Otic Solution [Jeremy ic] DermOtic 0.01 % DermOtic 0.01 % 08/07/2020 12:00:00 AM EST active DermOtic 0.01 % eCW1 ([facility]) Fluocinolone Acetonide 0.1 MG/ML Otic Solution [Jeremy ic] DermOtic 0.01 % DermOtic 0.01 % 08/07/2020 12:00:00 AM EST active DermOtic 0.01 % eCW1 ([facility]) Fluocinolone Acetonide 0.1 MG/ML Otic Solution [Jeremy ic] DermOtic 0.01 % DermOtic 0.01 % 08/07/2020 12:00:00 AM EST cho spended DermOtic 0.01 % eCW1 ([facility]) Fluocinolone Acetonide 0.1 MG/ML Otic Solution [Jeremy ic] DermOtic 0.01 % DermOtic 0.01 % 08/07/2020 12:00:00 AM EST active DermOtic 0.01 % eCW1 ([facility]) Fluocinolone Acetonide 0.1 MG/ML Otic Solution [Jeremy ic] DermOtic 0.01 % DermOtic 0.01 % 08/07/2020 12:00:00 AM EST active DermOtic 0.01 % eCW1 ([facility]) Fluocinolone Acetonide 0.1 MG/ML Otic Solution [Jeremy ic] DermOtic 0.01 % DermOtic 0.01 % 08/07/2020 12:00:00 AM EST cho spended DermOtic 0.01 % eCW1 ([facility]) Fluocinolone Acetonide 0.1 MG/ML Otic Solution [Jeremy ic] DermOtic 0.01 % DermOtic 0.01 % 08/07/2020 12:00:00 AM EST cho spended DermOtic 0.01 % eCW1 ([facility]) Fluocinolone Acetonide 0.1 MG/ML Otic Solution [Jeremy ic] DermOtic 0.01 % DermOtic 0.01 % 08/07/2020 12:00:00 AM EST active DermOtic 0.01 % eCW1 ([facility]) Sulfamethoxazole 800 MG / Trimethoprim 160 MG Oral Tab let Sulfamethoxazole/Trimethoprim DS 08/06/2020 12:00:00 AM EST ORAL active [facility] ([facility] linezolid 600 MG Oral Tablet Linezolid 08/06/2020 12:00:00 AM EST ORAL active [facility] ([facility] tramadol hydrochloride 50 MG Oral Tablet Tramadol HCL 08/01/2020 12:00:00 AM EDT active [facility] ([facility] Mupirocin 0.02 MG/MG Topical Ointment Mupirocin 07/14/2020 12:00:00 AM EDT completed [facility] ([facility]) POLYETHYLENE GLYCOL 3350 142 MG/ML Oral Solution [Miralax] M iralax 07/11/2020 12:00:00 AM EDT active M EDENT ([facility]) apixaban 5 MG Oral Tablet [Eliquis] ELIQUIS 5 MG TABS tablet ELIQUIS 5 MG TABS tablet 05/15/2020 12:00:00 AM EDT aborted TAKE TWO TABLETS BY MOUTH TWICE DAILY FOR ONE WEEK THEN ONE TABLET TWICE DAILY FOR 23 DAYS [facility] Mupirocin 0.02 MG/MG Topical Ointment mupirocin (BACTR OBAN) 2 % ointment mupirocin (BACTROBAN) 2 % ointment 04/12/2020 12:00:00 AM EDT aborted APPLY TO WOUND ON RIGHT FOOT ONCE DAILY [facility] Levothyroxine Sodium 0.075 MG Oral Table t levothyroxine (SYNTHROID, LEVOTHROID) 75 MCG tablet levothyroxine (SYNTHROID, LEVOTHROID) 75 MCG tablet 12:00:00 AM EST 1 {tbl} Oral aborted Take 1 tablet by mouth daily [facility] Aspirin 325 MG Delayed Release Oral Tablet aspirin EC 325 MG EC tablet aspirin EC 325 MG EC tablet 325 mg Oral aborted Frank e 325 mg by mouth daily [facility] Polyvinyl Alcohol 0.014 ML/ML Ophthalmic Solution polyvinyl alcohol (ARTIFICIAL TEARS) 1.4 % ophthalmic solution polyvinyl alcohol (ARTIFICIAL TEARS) 1.4 % ophthalmic solution 1 [drp] aborted Administer 1 drop to both eyes 2 (two) times a day [facility] Hydrocortisone 10 MG/ML Topical Cream hydrocortisone 1 % cream hydrocortisone 1 % cream Topical aborted Apply topicall y 2 (two) times a day [facility] Acetaminophen 500 MG Oral Tablet acetaminophen (TYLENO L) 500 MG tablet acetaminophen (TYLENOL) 500 MG tablet 1000 mg Oral aborted Take 1,000 mg by mouth every 6 (six) hours as needed for pain [facility] ammonium lactate 120 MG/ML Topical Lotio n ammonium lactate (LAC-HYDRIN) 12 % lotion ammonium lactate (LAC-HYDRIN) 12 % lotion 1 {appli cation} Topical aborted Apply 1 application topicall y daily as needed for dry skin [facility] Insurance Providers Payer name Policy type / Coverage type Policy ID Covered alliance party ID Covered alliance party's relationship to uribe Policy Uribe Plan Information HMOBLUE OPTION 2 [id number] 1 [id number] HMOBLUE OPTION 2 [id number] 1 [id number] Medicaid [facility] Part B [id number] .[id number] Self [id number] Medicaid [facility] Part B [id number] .[id number] Self [id number] [place] [id number] .[id number] Self [id number] [place] [id number] Self [id number] [place] [id number] .[id number] Self [id number] [place] [id number] Self [id number] [place] [id number] .[id number] Self [id number] [place] [id number] .[id number] Self [id number] [place] [id number] .[id number] Self [id number] [place] [id number] .[id number] Self [id number] [place] [id number] [id number] .[id number] Self [id number] [place] [id number] Self [id number] [place] [id number] [id number] .[id number] Self [id number] [place] [id number] Self BS Moe Hmo Blue Option Medigap Part B [id number] Self [id number] BS [employer]oe [employer]mo Blue Option Medigap Part B [id number] [id number] Self [id number] [employer] Blue Option Medigap Part B [id number] 2.0.1.547799.3.227.99.991.073878.0 Self [id number] [employer] Option Medigap Part B [id number] Self [id number] [employer] Option Medigap Part B [id number] 2..1.298561.3.227.99.991.889283.0 Self [id number] [employer] Option Medigap Part B [id number] 2...903973.3.227.99.991.680073.0 Self [id number] [employer] Medigap Part B [id number] 2...440812.3.227.99.991.323187.0 Self [id number] [employer] Medigap Part B [id number] 2..1.817431.3.227.99.991.427927.0 Self [id number] [employer] Medigap Part B [id number] 2..1.226899.3.227.99.991.980950.0 Self [id number] [employer] Medigap Part B [id number] 2..1.564807.3.227.99.991.460590.0 Self [id number] [employer] Medigap Part B [id number] Self [id number] [employer] Medigap Part B [id number] Self [id number] [employer] Medigap Part B [id number] Self [id number] [employer] Medigap Part B [id number] .[id number] [facility] Community Plan Commercial [id number] Self [id number] [facility] I [id number] Self [id number] [facility] Community Plan Commercial [id number] Self [id number] [facility] Community Plan Commercial [id number] Self [id number] [facility] Hmo Commercial [id number] Self [facility] I [id number] Self [id number] [facility] Hmo Commercial [id number] Self [id number] [facility] MEDICAID [id number] Kisha [id number] 33 [facility] MEDICAID [id number] Kisha [id number] 33 [facility] COMMUNITY PLAN MCDHMO [id number] SP [id number] [facility] COMMUNITY PLAN MCDHMO [id number] SP [id number] [facility] MEDICAID [id number] 1 [facility] COMMUNITY PLAN MCDHMO [id number] SP [id number] [facility] COMMUNITY PLAN MCDHMO [id number] SP [id number] [facility] Community Plan Commercial [id number] Self [id number] [facility] COMMUNITY PLAN MCDHMO [id number] SP [id number] [facility] (HMO) [id number] Self [id number] ANSI-Medicaid [id number] ANSI-Medicaid [id number] ANSI-Medicaid [id number] ANSI-Medicaid [id number] ANSI-Medicaid [id number] ANSI-Medicaid [id number] ANSI-Medicaid [id number] ANSI-Medicaid [id number] ANSI-Medicaid [id number] ANSI-Medicaid [id number] ANSI-Medicaid [id number] ANSI-Medicaid [id number] ANSI-Medicaid [id number] ANSI-Medicaid [id number] ANSI-Medicaid [id number] ANSI-Medicaid [id number] ANSI-Medicaid [id number] ANSI-Medicaid [id number] ANSI-Medicaid [id number] ANSI-Medicaid [id number] ANSI-Medicaid [id number] ANSI-Medicaid [id number] ANSI-Medicaid [id number] ANSI-Medicaid [id number] ANSI-Medicaid [id number] ANSI-Medicaid [id number] ANSI-Medicaid [id number] ANSI-Medicaid [id number] ANSI-Medicaid [id number] ANSI-Medicaid [id number] [facility] [id number] Self [id number] ANSI-Medicaid [id number] ANSI-Medicaid [id number] ANSI-Medicaid [id number] ANSI-Medicaid [id number] ANSI-Medicaid [id number] ANSI-Medicaid [id number] ANSI-Medicaid [id number] ANSI-Medicaid [id number] ANSI-Medicaid [id number] ANSI-Medicaid [id number] ANSI-Medicaid [id number] ANSI-Medicaid [id number] ANSI-Medicaid [id number] ANSI-Medicaid [id number] ANSI-Medicaid [id number] ANSI-Medicaid [id number] ANSI-Medicaid [id number] ANSI-Medicaid [id number] ANSI-Medicaid [id number] ANSI-Medicaid [id number] ANSI-Medicaid [id number] ANSI-Medicaid [id number] ANSI-Medicaid [id number] ANSI-Medicaid [id number] ANSI-Medicaid [id number] ANSI-Medicaid [id number] [facility] [place] [place] [id number] Self [id number] ANSI-Medicaid [id number] ANSI-Medicaid [id number] ANSI-Medicaid [id number]-[id number] ANSI-Medicaid [id number] ANSI-Medicaid [id number] ANSI-Medicaid [id number] ANSI-Medicaid [id number] ANSI-Medicaid [id number] [facility] [place] [place] [facility] [place] [id number] Self [id number] ANSI-Medicaid [id number] ANSI-Medicaid [id number] ANSI-Medicaid [id number] ANSI-Medicaid [id number] [facility] [place] [place] [facility] [place] 1030 [id number] Self [id number] ANSI-Medicaid [id number] ANSI-Medicaid [id number] ANSI-Medicaid [id number] ANSI-Medicaid [id number] ANSI-Medicaid [id number] ANSI-Medicaid [id number] ANSI-Medicaid [id number] ANSI-Medicaid [id number] ANSI-Medicaid [id number] ANSI-Medicaid [id number] ANSI-Medicaid [id number] ANSI-Medicaid [id number] [facility] Health Maintenance Organization [place] [place] [id number] Self [id number] ANSI-Medicaid [id number] ANSI-Medicaid [id number] ANSI-Medicaid [id number] [facility] Health Maintenance Organization [place] [place] [id number] Self [id number] ANSI-Medicaid [id number] ANSI-Medicaid [id number] ANSI-Medicaid [id number] ANSI-Medicaid [id number] ANSI-Medicaid [id number] ANSI-Medicaid [id number] [facility] [id number] ANSI-Medicaid [id number] ANSI-Medicaid [id number] ANSI-Medicaid [id number] ANSI-Medicaid [id number] ANSI-Medicaid [id number] ANSI-Medicaid [id number] ANSI-Medicaid [id number] ANSI-Medicaid [id number] ANSI-Medicaid [id number] [facility] MEDICAID PI PI ANSI-Medicaid [id number] ANSI-Medicaid [id number] ANSI-Medicaid [id number] ANSI-Medicaid [id number] ANSI-Medicaid [id number] ANSI-Medicaid [id number] ANSI-Medicaid [id number] ANSI-Medicaid [id number] ANSI-Medicaid [id number] ANSI-Medicaid [id number] [facility] Health Maintenance Organization (HMO) [id number] Self [id number] ANSI-Medicaid [id number] ANSI-Medicaid [id number] ANSI-Medicaid [id number] ANSI-Medicaid [id number] ANSI-Medicaid [id number] ANSI-Medicaid [id number] ANSI-Medicaid [id number] ANSI-Medicaid [id number] ANSI-Medicaid [id number] ANSI-Medicaid [id number] ANSI-Medicaid [id number] ANSI-Medicaid [id number] ANSI-Medicaid [id number] ANSI-Medicaid [id number] ANSI-Medicaid [id number] ANSI-Medicaid [id number] ANSI-Medicaid [id number] ANSI-Medicaid [id number] ANSI-Medicaid [id number] [facility] [place] [place] [id number] [facility] [id number] [facility] Health Maintenance Organization (HMO) [id number] Self [id number] [facility] [id number] S [id number] [facility] Health Maintenance Organization (HMO) [id number] Self [id number] [facility] COMMUNITY PLAN [facility] [id number] SP [id number] [facility] Health Maintenance Organization (HMO) [id number] Self [id number] [facility] Health Maintenance Organization (O) [id number] Self [id number] [facility]ICAID [facility] [id number] S [id number] FOR[facility] [id number] SP [id number] FOR[facility] COMMUNITY PLAN [facility] [id number] SP [id number] [facility] Health Maintenance Organization (HMO) [id number] Self [facility] Health Maintenance Organization (HMO) [id number] Self MEDICAID [id number] [facility] P UNAVAILABLE [id number] C UNAVAILABLE [employer] PLAN [id number] SP [id number] [employer] P [id number] S [id number] [employer] BCBS P [id number] S [id number] [employer] P UNAVAILABLE [id number] [place] 3 [id number] N [employer]UE [employer] [place] PLAN [id number] SP [id number] SELF PAY 2 UNAVAILABLE 1 UNAVAILA BLE ANSI-Medicaid [id number] FOR[facility]LY [facility] COMMUNITY PLAN MCDO [id number] SP [id number] FOR[facility] PL[facility] [id number] SP [id number] UNHC COMMUNITY PLAN XIX [id number] 18 [id number] [facility](MCAID) O [id number] S [id number] [facility] [id number] SP [id number] [facility] [id number] SP [id number] MEDICAID M [id number] S [id number] ANSI-Medicaid [id number] ANSI-Medicaid [id number] ANSI-Medicaid [id number] ANSI-Medicaid [id number] ANSI-Medicaid [id number] ANSI-Medicaid [id number] ANSI-Medicaid [id number] ANSI-Medicaid [id number] ANSI-Medicaid [id number] ANSI-Medicaid [id number] ANSI-Medicaid [id number] ANSI-Medicaid [id number] ANSI-Medicaid [id number] ANSI-Medicaid [id number] ANSI-Medicaid [id number] ANSI-Medicaid [id number] ANSI-Medicaid [id number] ANSI-Medicaid [id number] ANSI-Medicaid [id number] ANSI-Medicaid [id number] ANSI-Medicaid [id number] [facility] ([facility] [place] [id number] Self [id number] [facility] ([facility] [place] [id number] Self [id number] ANSI-Medicaid [id number] ANSI-Medicaid [id number] ANSI-Medicaid [id number] ANSI-Medicaid [id number] ANSI-Medicaid [id number] ANSI-Medicaid [id number] ANSI-Medicaid [id number] [facility]-Medicaid [id number] [facility]-Medicaid [id number] [facility]-Medicaid [id number] [facility]-Medicaid [id number] [facility]-Medicaid [id number] [facility]-Medicaid [id number] ANSI-Medicaid [id number] [facility] Health Maintenance Organization [place] [place] [id number] [facility] [id number] Problems, Conditions, and Diagnoses Code Display Name Description Problem Type Effective Dates Data Source(s) I10 Essential (primary) hypertension Essential (primary) h ypertension Diagnosis 05/31/2021 07:40:13 AM EDT [facility] E78.5 Hyperlipidemia, unspecified Hyperlipidemia, unspecifie d Diagnosis 05/31/2021 07:40:13 AM EDT [facility] I25.10 Atherosclerotic heart diseas e of [place] coronary artery without angina pectoris Atherosclerotic heart disease of [place] Diagnosis 05/31/2021 07:40:13 AM EDT [facility] G47.30 Sleep apnea, unspecified Sleep apnea, unspecified Diag nosis 04/19/2021 12:58:45 PM EDT [facility] I31.3 Pericardial effusion (noninflammatory) P ericardial effusion (noninflammatory) Diagnosis 04/19/2021 12:58:45 PM EDT [facility] F41.8 Other specified anxiety disorders Other specifie d anxiety disorders Diagnosis 04/19/2021 12:58:45 PM EDT [facility] K21.9 Gastro-esophageal reflux disease without esophagitis Gastro-esophageal reflux disease without Diagnosis 04/19/2021 12:58:45 PM EDT [facility] E03.9 Hypothyroidism, unspecified Hypothyroidism, unspecifie d Diagnosis 04/19/2021 12:58:45 PM EDT [facility] Z1152 ENCOUNTER FOR SCREENING FOR COVID-19 ENCOUNTER F OR SCREENING FOR COVID-19 Diagnosis 03/29/2021 01:56:00 PM EDT [facility] Z6842 Body mass index [BMI] 45.0-49.9, adult B tameka mass index [BMI] 45.0-49.9, adult Diagnosis 03/29/2021 01:56:00 PM EDT [facility] J9811 Atelectasis Atelectasis Diagnosis 03/29/2021 01:56:00 PM EDT [facility] J90 Pleural effusion, not elsewhere classifi ed Pleural effusion, not elsewhere classified Diagnosis 03/29/2021 01:56:00 PM EDT [facility] R600 Localized edema Localized edema Diagnosis 03/29/2021 01:5 6:00 PM EDT [facility] E039 Hypothyroidism, unspecified Hypothyroidism, unspecifie d Diagnosis 03/29/2021 01:56:00 PM EDT [facility] E7800 Pure hypercholesterolemia, unspecified P ure hypercholesterolemia, unspecified Diagnosis [facility] Obesity, unspecified Obesity, unspecified Diagnosis 03/29/2021 01:56:00 PM EDT [facility] I2510 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 Diagnosis 03/29/2021 01:56:00 PM EDT [facility] Z951 Presence of aortocoronary bypass graft P resence of aortocoronary bypass graft Diagnosis 03/29/2021 01:56:00 PM EDT [facility] R0789 Other chest pain Other chest pain Diagnosis 03/29/2021 01 :56:00 PM T [facility] Y[address] or not applicable Unspecified place or not applicable Diagnosis 03/22/2021 04:02:[address] [facility] F29142 Latex allergy status Latex allergy status Diagnosis 03/22/2021 04:02:[address] [facility] Z75554 Personal history of nicotine dependence Personal history of nicotine dependence Diagnosis 03/22/2021 04:02:[address] [facility] V50595T Sprain of unspecified ligament of right ankle, initial encounter Sprain of unspecified ligament of right ankle, initial encounter Diagnosis 03/22/2021 04:02:[address] [facility] L05073 Pain in right ankle and joints of right foot Pain in right ankle and joints of right foot Diagnosis 03/22/2021 04:02:00 PM T [facility] R00.2 Palpitations Palpitations Diagnosis 07/03/2020 11:53:21 A M EDT [facility] L23.9 [id number] Allergic contact dermatitis, unspecified trigger Problem 06/28/2021 12:00:00 AM EDT eCW1 ([facility]) S93.401D Sprain of ankle Sprain of ankle Problem 04/18/2021 12:0 0:00 AM EDT [facility] ([facility] M21.6x1 Pronation Pronation Problem 02/26/2021 12:00:00 AM ED T [facility] ([facility] M72.2 Plantar fascial fibromatosis Plantar fascial fibromato sis Problem 02/26/2021 12:00:00 AM EDT [facility] ([facility] M47.817 [id number] Arthritis of lumbosacral spine Problem 02/12/2021 12:00:00 AM EDT eCW1 ([facility]) G89.29 Chronic pain Other chronic pain Problem 02/04/2021 12:0 0:00 AM EDT eCW1 ([facility]) L84 Callosity Callosity Problem 02/03/2021 12:00:00 AM ED T [facility] ([facility] K76.89 [id number] Liver cyst Problem 01/25/2021 12:00:00 AM ED T eCW1 ([facility]) M20.41 [id number] Other hammer toe(s) (acquired), right cherelle t Problem 01/08/2021 12:00:00 AM EDT eCW1 ([facility]) Z48.89 Convalescence after surgery Convalescence after surger y Problem 08/20/2020 12:00:00 AM EST - 12/20/2020 12:00:00 AM EDT [facility] ([facility] S31.819D [id number] Unspecified open wou nd of right buttock, subsequent encounter Problem 08/09/2020 12:00:00 AM EST eCW1 ([facility]) M46.1 [id number] Sacroiliitis Problem 08/08/2020 12:00:00 AM EST eCW1 ([facility]) H60.93 [id number] Inflammation of both ear canals Problem 08/07/2020 12:00:00 AM EST eCW1 ([facility]) S31.819A [id number] Wound of right buttock, initial encounter Problem 07/26/2020 12:00:00 AM EDT eCW1 ([facility]) Surgeries/Procedures Procedure Description Date Indications Data Source(s) OFFICE OUTPATIENT VISIT 15 MINUTES 07/19/2021 12:00:00 AM EDT [facility] ([facility]) OFFICE OUTPATIENT VISIT 15 MINUTES 07/03/2021 12:00:00 AM EDT [facility] ([facility]) OFFICE OUTPATIENT NEW 45 MINUTES 07/03/2021 12:00:00 A M EDT MEDENT ([facility]) OFFICE OUTPATIENT VISIT 10 MINUTES 07/02/2021 12:00:00 AM EDT [facility] ([facility] Medication: 0.9 % Sodium Chloride IL 06/28/2021 12:00: 00 AM EDT eCW1 ([facility]) Injection, triamcinolone acetonide, not otherwise specified , 10 mg 06/28/2021 12:00:00 AM EDT eCW1 ([facility]) OFFICE OUTPATIENT VISIT 25 MINUTES 06/21/2021 12:00:00 AM EDT MEDENT ([facility]) PHYSICIAN TELEPHONE EVALUATION 11-20 MIN 06/21/2021 12 :00:00 AM EDT MEDENT ([facility]) MRI UPPER EXTREMITY OTH THAN JT W/O CONTR MATRL 2020 12:00:00 AM EDT MEDENT ([facility], ) MRI UPPER EXTREMITY OTH THAN JT W/O CONTR MATRL 2020 12:00:00 AM EDT MEDENT ([facility], ) RADEX HAND MINIMUM 3 VIEWS 06/12/2021 12:00:00 AM EDT MED[facility] ([facility]) OFFICE OUTPATIENT VISIT 15 MINUTES 06/12/2021 12:00:00 AM EDT MEDENT ([facility]) INJECTION 1 TENDON SHEATH/LIGAMENT APONEUROSIS 021 12:00:00 AM EDT [facility] ([facility] OFFICE OUTPATIENT VISIT 10 MINUTES 06/04/2021 12:00:00 AM EDT [facility] ([facility] OFFICE OUTPATIENT VISIT 15 MINUTES 05/23/2021 12:00:00 AM EDT MEDENT ([facility], ) APPLICATION CAST ELBOW FINGER SHORT ARM 05/21/2021 12: 00:00 AM EDT MEDENT ([facility]) RADEX HAND MINIMUM 3 VIEWS 05/21/2021 12:00:00 AM EDT MEDENT ([facility]) OFFICE OUTPATIENT VISIT 15 MINUTES 05/21/2021 12:00:00 AM EDT MED[facility] ([facility]) OFFICE OUTPATIENT VISIT 25 MINUTES 05/21/2021 12:00:00 AM EDT MEDENT ([facility]) OFFICE OUTPATIENT VISIT 15 MINUTES 05/02/2021 12:00:00 AM EDT [facility] ([facility] ECG ROUTINE ECG W/LEAST 12 LDS W/I&R <td>POCT AMB EKG</td><td>Routine</td><td>04/19/2021 1:42 PM EDT</td><td> Coronary artery disease involving eklutna coronary artery of eklutna heart without angina pectoris Benign essential hypertension</td><td> </td> 04/19/2021 01:42:00 PM EDT Benign essential hypertensionCoronary ar litzy disease involving eklutna coronary artery of [place] heart without angina pectoris [facility] Benign essential hypertension Coronary artery disease involving ekl[place]na coronary artery of ekl[place]na heart without angina pectoris OFFICE OUTPATIENT VISIT 10 MINUTES 04/18/2021 12:00:00 AM EDT [facility] ([facility] RADEX FOOT COMPLETE MINIMUM 3 VIEWS 03/20/2021 12:00:0 0 AM EDT [facility] ([facility] OFFICE OUTPATIENT VISIT 10 MINUTES 03/20/2021 12:00:00 AM EDT [facility] ([facility] OFFICE OUTPATIENT VISIT 15 MINUTES 03/20/2021 12:00:00 AM EDT MED[facility] ([facility]) OFFICE OUTPATIENT VISIT 10 MINUTES 03/12/2021 12:00:00 AM EDT [facility] ([facility] INJECTION 1 TENDON SHEATH/LIGAMENT APONEUROSIS 2 021 12:00:00 AM EDT [facility] ([facility] OFFICE OUTPATIENT VISIT 10 MINUTES 02/26/2021 12:00:00 AM EDT [facility] ([facility] OFFICE OUTPATIENT VISIT 25 MINUTES 02/21/2021 12:00:00 AM EDT MED[facility] ([facility]) Strapping Foot Or Ankle 02/12/2021 12:00:00 AM EDT [facility] ([facility] OFFICE OUTPATIENT VISIT 10 MINUTES 02/12/2021 12:00:00 AM EDT [facility] ([facility] OFFICE OUTPATIENT VISIT 10 MINUTES 02/01/2021 12:00:00 AM EDT [facility] ([facility] OFFICE OUTPATIENT VISIT 25 MINUTES 12/26/2020 12:00:00 AM EDT MEDENT ([facility], ) RADEX HAND MINIMUM 3 VIEWS 12/19/2020 12:00:00 AM EDT MED[facility] ([facility]) RADEX FOOT COMPLETE MINIMUM 3 VIEWS 12/07/2020 12:00:0 0 AM EST [facility] ([facility] OFFICE OUTPATIENT VISIT 15 MINUTES 12/07/2020 12:00:00 AM EST [facility] APPLICATION SHORT LEG CAST BELOW KNEE-TOE 11/28/2020 1 2:00:00 AM EST [facility] ([facility]) RADEX HAND MINIMUM 3 VIEWS 11/28/2020 12:00:00 AM EST [facility] ([facility]) RADEX HAND MINIMUM 3 VIEWS 11/14/2020 12:00:00 AM EST [facility] ([facility]) OFFICE OUTPATIENT VISIT 10 MINUTES 11/06/2020 12:00:00 AM EST [facility] ([facility] OFFICE OUTPATIENT VISIT 25 MINUTES 11/02/2020 12:00:00 AM EST MED[facility] ([facility]) CLTX METACARPAL FX W/O MANIPULATION EACH BONE 10/29/19 12:00:00 AM EST [facility] ([facility]) OFFICE OUTPATIENT VISIT 15 MINUTES 10/29/2020 12:00:00 AM EST [facility] ([facility]) ARTHROCENTESIS ASPIR&/INJECTION SMALL JT/BURSA 021 12:00:00 AM EST [facility] ([facility]) OFFICE OUTPATIENT VISIT 15 MINUTES 10/12/2020 12:00:00 AM EST [facility] ([facility]) ARTHROCENTESIS ASPIR&/INJECTION MAJOR JT/BURSA 12:00:00 AM EST [facility] ([facility]) OFFICE OUTPATIENT VISIT 15 MINUTES 10/11/2020 12:00:00 AM EST [facility] ([facility]) FINE NEEDLE ASPIRATION W/O IMAGING GUIDANCE 07/26/2020 12:00:00 AM EDT eCW1 ([facility]) RADEX FOOT COMPLETE MINIMUM 3 VIEWS 07/23/2020 12:00:0 0 AM EDT [facility] ([facility] Remove Support Implant Deep 07/18/2020 12:00:00 AM EDT [facility] ([facility] Hammertoe Proc One Toe 07/18/2020 12:00:00 AM EDT [facility] ([facility] Ostectomy/Exostectomy/Condylectomy Metatarsal Head 07/18/2020 12:00:00 AM EDT [facility] ([facility] Results ID Date Data Source [id number] 04/02/2021 10:21:00 [place] [address] PHONE: [phone] FAX: [phone] Name .................. : JUVE Hawthorne Acct Number.................. : [id number] ROOM. ................. : 103-1 MR Number ................... : [id number] Stay type ............. : O/P Discharge Date......... ... : Admit Date ......... : 03/29/21 Admit Phys .................... : JUANITA- Date of ....... : 1965 Family Phys ................... : [employer] Phone .................. : [phone] Age ................................ : 55 Film# .................. .:[id number] Sex ................................. : M Unsigned transcriptions are preliminary reports and do not represent a medical or legal document CHEST PORTABLE [id number] COMPLETE:03/29/21 16:55 KBO [id number] Reason(s): Chest Pain PORTABLE CHEST X-RAY: INDICATION: Chest pain. FINDINGS: The cardiac and mediastinal silhouettes appear normal and the lungs are clear. The bones and soft tissues are normal. The upper abdomen is unremarkable. IMPRESSION: No acute disease identifiable. Examination dictated by FRANTZ Ponce. Examination was reviewed with Ollie Stewart MD, radiologist at the time of this dictation. Electronically Reviewed and Signed By Ollie Stewart M.D. , 04/02/21 10:21, [facility] Transcribe Initials: DZ , Transcribe Date: 03/30/21 01:15, Dictation Date: Copy for: EMERGENCY DEPT via modem Copy for: 710 MED REC DISCHARGED Page 1 of 1 Name Value Range Interpretation Code Description Data Toma rce(s) Supporting Document(s) ID Date Data Source [id number] 04/02/2021 10:20:00 AM EDT [facility] [address] [place] [address] PHONE: [phone] FAX: [phone] Name .................. : JUVE Hawthorne Acct Number.................. : [id number] ROOM. ................. : 103-1 Number ................... : [id number] Stay type ............. : O/P Discharge Date......... ... : Admit Date ......... : 03/29/21 Admit Phys .................... : COOKIE Date of ....... : 1965 Family Phys ................... : OROURKE NICOLE Phone .................. : [phone] Age ................................ : 55 Film# .................. .:[id number] Sex ................................. : M Unsigned transcriptions are preliminary reports and do not represent a medical or legal document [place] [id number] COMPLETE:03/29/21 14:34 KNB 15047 Reason(s): Pain, Limb VENOUS DOPPLER ULTRASOUND OF THE RIGHT LOWER EXTREMITY: INDICATION: Pain in limb. FINDINGS: There is normal compressibility of the deep venous system from the external iliac through the popliteal vein with normal augmentation identified. IMPRESSION: No evidence for any underlying DVT. Examination dictated by FRANTZ Ponce. Examination was reviewed with Ollie Stewart MD, radiologist at the time of this dictation. Electronically Reviewed and Signed By Ollie Stewart M.D. , 04/02/21 10:20, [place] Transcribe Initials: DZ , Transcribe Date: 03/30/21 01:04, Dictation Date: Copy for: EMERGENCY DEPT via modem Copy for: 710 MED REC DISCHARGED Page 1 of 1 Name Value Range Interpretation Code Description Data Toma rce(s) Supporting Document(s) ID Date Data Source [id number] 04/02/2021 10:19:00 [place] [address] PHONE: [phone] FAX: [phone] Name .................. : JUVE Hawthorne Acct Number.................. : [id number] ROOM. ................. : 103-1 Number ................... : [id number] Stay type ............. : O/P Discharge Date......... ... : Admit Date ......... : 03/29/21 Admit Phys .................... : COOKIE Date of ....... : 1965 Family Phys ................... : HAVEN RIVERA Phone .................. : [phone] Age ................................ : 55 Film# .................. .:[id number] Sex ................................. : M Unsigned transcriptions are preliminary reports and do not represent a medical or legal document CT CTA CHEST NON- CORONARY W Renzo [id number] COMPLETE:03/29/21 15:20 [id number] Reason(s): right leg swelling shortness of breath and chest pain, high d d CTA OF THE CHEST WITH CONTRAST: INDICATION: Right leg swelling, shortness of breath and chest pain. Elevated D-dimer. FINDINGS: The neck base is clear. There are small bilateral pleural effusions and mild dependent atelectasis bilaterally. No focal infiltrate. No suspicious mass or nodule. The heart is normal in size. No central or segmental pulmonary embolism is noted. No lymphadenopathy. Mild coronary artery calcifications are noted. The visualized upper abdomen demonstrates no acute abnormality. There is a 5.0 cm cyst in the liver. No acute osseous abnormality. IMPRESSION: No pulmonary embolism. No focal infiltration. Small bilateral pleural effusions and mild dependent atelectasis noted. While performing the above CT examination, radiation dose reduction was accomplished utilizing automated exposure control, adjusting of the mA and kV based on the patient's body size and/or the use of imperative reconstructive techniques. CT dose: 1222.2 mGycm Page 1 of 2 [facility] [address] [place] [address] PHONE: [phone] FAX: [phone] Name .................. : JUVE Hawthorne Acct Number.................. : [id number] ROOM. ................. : 103-1 MR Number ................... : [id number] Stay type ............. : O/P Discharge Date......... ... : Admit Date ......... : 03/29/21 Admit Phys .......... .......... : JUANITA-FALAN Date of ....... : 1965 Family Phys ................... : OROURKE NICOLE Phone .................. : [phone] Age ................................ : 55 Film# .................. .:[id number] Sex ................................. : M Unsigned transcriptions are preliminary reports and do not represent a medical or legal document CT CTA CHEST NON- CORONARY W C [id number] COMPLETE:03/29/21 15:20 00900 Reason(s): right leg swelling shortness of breath and chest pain, high d d Contrast agent in mL: 75 Isovue 370 Method of administration: Intravenous Electronically Reviewed and Signed By Ollie Stewart M.D. , 04/02/21 10:19, SHEMAR Transcribe Initials: DRE , Transcribe Date: 03/29/21 22:38, Dictation Date: Copy for: EMERGENCY DEPT via mode Copy for: 710 MED REC DISCHARGED Page 2 of 2 Name Value Range Interpretation Code Description Data Toma rce(s) Supporting Document(s) ID Date Data Source [id number] 04/01/2021 06:43:00 PM EDT [facility] [address] [place] [address] RESPIRATORY CARE REPORT ==== ---------NAME------- NUMBER SEX AGE ADMIT DISC. XRAY# F/C TYPEPRENTICE DEANNA Hawthorne [id number] M 55 03/29/21 03/30/21 [id number] X6B O/P DATE OF : 1965 M/R# [id number] #: [id number] 103-1 LOCATION: EMERGENCY DEPT EKG [id number] COMP LETE:03/30/21 13:28 [place] [id number] PHYSICIAN: COOKIE Name Value Range Interpretation Code Description Data Toma rce(s) Supporting Document(s) ID Date Data Source [id number] 04/01/2021 06:45:00 AM EDT [facility] Name Value Range Interpretation Code Description Data Toma rce(s) Supporting Document(s) Creatine kinase.MB [Mass/volume] in Serum or Plasma 4.1 ng/mL 0.0-10 .4 [facility] ID Date Data Source [id number] 03/30/2021 07:38:00 AM EDT [facility] Name Value Range Interpretation Code Description Data Toma rce(s) Supporting Document(s) Magnesium [Mass/volume] in Serum or Plasma 2.2 MG/DL 1.7 - 2.2 [facility] ID Date Data Source [id number] 03/30/2021 07:38:00 AM EDT [facility] Name Value Range Interpretation Code Description Data Toma rce(s) Supporting Document(s) CBC W/AUTOMATED DIFF [facility] COMPLETE BLOOD COUNT Leukocytes [#/volume] in Blood by Automated count 6.5 10^3/uL 4.2 - 1 1.0 [facility] Erythrocytes [#/volume] in Blood by Automated count 4.64 10^6/uL 4. 50 - 6.30 [facility] Hemoglobin [Mass/volume] in Blood 13.3 g/dL 14.0 - 16.0 L [facility] Hematocrit [Volume Fraction] of Blood by Automated count 41.7 % 4 1.0 - 51.0 [facility] Erythrocyte mean corpuscular volume [Entitic volume] by Auto mated count 89.9 fL 80.0 - 94.0 [facility] Erythrocyte mean corpuscular hemoglobin [Entitic mass] by Automated count 28.7 pg 27.0 - 34.0 [facility] Erythrocyte mean corpuscular hemoglobin concentration [Mass/volume] by Automated count 31.9 g/dL 31.0 - 36.0 [facility] Erythrocyte distribution width [Ratio] by Automated count 15.8 % 11.5 - 14.8 H [facility] Platelets [#/volume] in Blood by Automated count 257 10^3/uL 150 - 45 0 [facility] Platelet mean volume [Entitic volume] in Blood by Automated count 9.8 fL 7.4 - 10.4 [facility] Neutrophils/100 leukocytes in Blood by Automated count 63.7 % 37. 0 - 80.0 [facility] Lymphocytes/100 leukocytes in Blood by Manual count 20.6 % 25.0 - 40.0 L [facility] Monocytes/100 leukocytes in Blood by Automated count 13.6 % 3.0 - 8.0 H [facility] Eosinophils/100 leukocytes in Blood by Automated count 0.8 % 0.0 - 7.0 [facility] Basophils/100 leukocytes in Blood by Automated count 0.5 % 0.0 - 2.0 [facility] %IG 0.8 % 0.0 - 0.0 [facility] %NRBC 0.0 % 0.0 - 0.0 [facility] al Neutrophils [#/volume] in Blood by Automated count 4.11 10^3/uL 2.00 - 6.90 [facility] Lymphocytes [#/volume] in Blood by Automated count 1.33 10^3/uL 0.60 - 3.40 [facility] Monocytes [#/volume] in Blood by Automated count 0.88 10^3/uL 0.00 - 0.90 [facility] Eosinophils [#/volume] in Blood by Automated count 0.05 10^3/uL 0.00 - 0.70 [facility] Basophils [#/volume] in Blood by Automated count 0.03 10^3/uL 0.00 - 0.20 [facility] #IG 0.05 10^3/uL 0.00 - 0.10 [facility] #NRBC 0.00 10^3/uL 0.00 - 0.00 [facility] MANUAL DIFF NOT INDICATED [facility] RBC MORPH NOT INDICATED [facility] spital ID Date Data Source [id number] 03/30/2021 07:38:00 AM EDT [facility] Name Value Range Interpretation Code Description Data Toma rce(s) Supporting Document(s) BASIC METABOLIC PANEL [facility] BASIC METABOLIC PANEL Sodium [Moles/volume] in Serum or Plasma 142 mEq/L 134 - 153 [facility] Potassium [Moles/volume] in Serum or Plasma 4.0 mEq/L 3.6 - 5.0 [facility] Chloride [Moles/volume] in Serum or Plasma 107 mEq/L 98 - 107 [facility] Carbon dioxide, total [Moles/volume] in Serum or Plasma 25 MEQ/L 22 - 30 [facility] Glucose [Mass/volume] in Serum or Plasma 98 MG/DL 70 - 99 [facility] BUN 18 MG/DL 7 - 21 [facility] Creatinine [Mass/volume] in Serum or Plasma 1.1 MG/DL 0.7 - 1.5 [facility] BUN/CREAT 16 8 - 27 [facility] Calcium [Mass/volume] in Serum or Plasma 8.8 MG/DL 8.4 - 10.2 [facility] Anion gap 3 in Serum or Plasma 10.0 mmol/L 8.0 - 16.0 [facility] AGE 55 yrs [facility] al AFR AMER GFR >60 mL/min [facility] Ho spital NON-AA GFR >60 mL/min [facility] ital Male GFR Inter prentation 20-49 yrs >60 mL/min Normal 50-59 yrs >56 mL/min Normal 60-69 yrs >49 mL/min Normal 70-79yrs >42 mL/min Normal 80 and above >35 mL/min Normal Female GFR Interpretation 20-39 yrs >60 mL/min Normal 40-49 yrs >58 mL/min Normal 50-59 yrs >51 mL/min Normal 60-69 yrs >45 mL/min Normal 70-79 yrs >39 mL/min Normal 80 and above >32 mL/min Normal ID Date Data Source [id number] 03/29/2021 01:56:00 PM EDT [facility] 1 OrderSheet [facility] [address] [place] [address] Phone #: ext- [phone] 03/29/2021 13:53 [id number] Sex: M : 1965 Age: 55yWEIGHT:140.7 kg (M) HEIGHT:68 inches (S) BMI:47.2ALLERGIES: adhesive talpe, Codeine Phosphate, LatexCHIEF COMPLAINT: chest pain, discomfortDIAGNOSIS: O/E - edema of feet, Chest pain, Acute coronary syndromeLAB ORDERSOrder Description Priority Entered Acknowledged InitialedCBC w Diff STAT 14:00 03/29/2021 14:08 Kristan Li RN ;CMP STAT 14:00 03/29/2021 14:08 Kristan Li RN ;Lipase STAT 14:00 03/29/2021 14:08 Kristan Li RN ;Troponin-T STAT 14:00 03/29/2021 14:08 Kristan Li RN ;D-Dimer STAT 14:00 03/29/2021 14:08 Kristan Li RN ;PT/INR STAT 14:00 03/29/2021 14:08 Kristan Li RN ;BNP STAT 17:08 03/29/2021 17:08 Kristan Li RN ;COVID-19 CAH (Not STAT 18:12 03/29/2021 20:54 StevenSymptomatic as Kristan Swain RNDefined by [facility]) ;(03/28/21) (Not FirstTest) (Hospitalized)(Not ) (NotResident inCongregate CareSetting) (NotEmployed inHealthcare Setting) 2 OrderSheet [facility] [address] [place] [address] Phone #: ext- [phone] 03/29/2021 13:53 Patient: DEANNA AN Sex: M : 1965 Age: 55yTroponin-T STAT 18:19 03/29/2021 20:54 Veronica Saavedra RN N Rhonda;DIAGNOSTIC STUDY ORDERSOrder Description Priority Entered Acknowledged InitialedChest Portable 1 STAT 14:00 03/29/2021 14:18 DorisView Kristan Swain RN(Oxygen?(No)) ; Reason for Study: Chest PainUS Lower Ext STAT 14:01 03/29/2021 14:18 DorisVenous Right Kristan Swain RN(Oxygen?(No)) ; Reason for Study: Pain, Limb, Swelling, LimbCT CTA CHEST STAT 15:20 03/29/2021 15:36 Estefania(NONCOR) W CON Kristan Swain RNINC PP ;(Oxygen?(No))(IV?(Yes)) Reason for Study: right leg swelling shortness of breath and chest pain, high d dimer r/o PEMEDICATION/IV/DRIP/FLUID ORDERSOrder Description Priority Entered Acknowledged InitialedToradol IVP 30 mg 14:01 03/29/2021 14:15 Estefania(NOW x1) Kristan Swain RN ;GENERAL ORDERSOrder Description Priority Entered Acknowledged InitialedBlood Pressure 14:00 03/29/2021 14:08 [employer]is[employer] Kristan Swain RN ;Investment Underwriter 14:00 03/29/2021 14:08 Estefania(continuous) Kristan Swain RN ;EKG 14:00 03/29/2021 14:08 Kristan Li RN ;NPO 14:00 03/29/2021 14:08 Kristan Li RN ;Obtain Old EKG 14:00 03/29/2021 14:08 Estefania 3 OrderSheet [facility] [address] [place] [address] Phone #: ext- [phone] 03/29/2021 13:53 Patient: DEANNA AN Sex: M : 1965 Age: 55y Kristan Swain RN ;Obtain Old Records 14:00 03/29/2021 14:08 Kristan Li RN ;Oxygen titrate to 14:00 03/29/2021 14:08 Estefania92% Kristan Swain RN ;Pulse oximeter 14:00 03/29/2021 14:08 Estefania(Continuous) Kristan Swain RN ;Saline Lock 14:00 03/29/2021 14:08 Kristan Li RN ;Vitals 14:00 03/29/2021 14:08 Kristan Li RN ;[Electronically signed by Richard Martin RN (20:54 03/29/2021)][Electronically signed by Kristan Swain (23:36 03/29/2021)][Electronically locked by Richard Martin RN (20:54 03/29/2021)] Name Value Range Interpretation Code Description Data Toam rce(s) Supporting Document(s) ID Date Data Source [id number] 03/29/2021 01:56:00 PM EDT [facility] 1 Medication Reconciliation Report [facility] [address] [place] [address] Phone #: ext- [phone] 03/29/2021 13:53 Patient: DEANNA AN Sex: M : 1965 Age: 55yWeight: 140.7 kgHeight/Length: 68 in.BMI: 47.2ALLERGIES: adhesive talpe, Codeine Phosphate, LatexThe patient's Home Medications are listed below:THE FOLLOWING MEDICATIONS NEED TO BE RECONCILED: Atorvastatin Calcium Oral 40 mg, daily busPIRone HCl Oral 10 mg Cetirizine HCl Oral 10 mg Famotidine Oral 20 mg Gabapentin Oral (600 mg) Levothyroxine Sodium Oral 25 mcg, daily Metoprolol Tartrate Oral 25 mg, daily Montelukast Sodium Oral (10 mg) Omeprazole Oral 40 mg, daily Topiramate Oral 75 mg, daily Trihexyphenidyl HCl Oral (2 mg)The source(s) of the original Home Medication information:Not obtained.The following Medications were given to the patient in the Emergency Department:Toradol [IVP] IVP 30 mg, administered: 14:15 03/29/2021 2 Medication Reconciliation Report [facility] [address] [place] [address] Phone #: ext- [phone] 03/29/2021 13:53 Patient: DEANNA AN Sex: M : 1965 Age: 55yThe following Medications were prescribed to the patient:None. Name Value Range Interpretation Code Description Data Toma rce(s) Supporting Document(s) ID Date Data Source [id number] 03/29/2021 01:56:00 PM EDT [facility] 1 Medication Administration Record [facility] [address] [place] [address] Phone #: ext- [phone] 03/29/2021 13:53 Patient: DEANNA AN Sex: M : 1965 Age: 55yWeight: 140.7 kgHeight/Length: 68 inBMI: 47.2ALLERGIES: adhesive talpe, Codeine Phosphate, Latex Date/Time Medication Administered Medication OrderedGiven TORADOL [IVP] (KETOROLAC Toradol IVP 30 mg (NOW x1)14:15 03/29/2021 TROMETHAMINE)Estefania Guerin RN Dose: 30 mg IVP Site: #1 right Name Value Range Interpretation Code Description Data Toma rce(s) Supporting Document(s) ID Date Data Source [id number] 03/29/2021 01:56:00 PM EDT [facility] 1 General Instructions [facility] [address] [place] [address] Phone #: ext [phone] 03/29/2021 13:53 Patient: DEANNA AN Sex: M : 1965 Age: 55yPrecordial chest pain characterized as "pressure".Acute coronary syndrome: stable angina.Right pedal edema.(Electronically signed by Kristan Swain 03/29/2021 23:36) Name Value Range Interpretation Code Description Data Toma rce(s) Supporting Document(s) ID Date Data Source [id number] 03/29/2021 01:56:00 PM EDT [facility] 1 Clinical Report - Nurses [facility] [address] [place] [address] Phone #: ext- [phone] 03/29/2021 13:53 Patient: DEANNA AN Sex: M : 1965 Age: 55yTRIAGEArrived by EMS. Historian: patient.Triage time: 13:52 03/29/2021. Acuity: LEVEL 3.Chief Complaint: CHEST PAIN.13:52 03/29/21. Alert. No acute distress.Onset. (10 am). 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 SEPSIS SCREEN NEGATIVE. No suspected or confirmedsigns of infection present. --14:04 03/29/21 Estefania Guerin RN13:58 03/29/21. BP: 130/106. MAP: 114. HR: 78 . RR: 15. O2 saturation: 98% on room air. Temp: 99.1 F.Pain level now: 10/10. Describes the quality as aching. It has been constant. Pain level at maximum: 10/10.No radiation noted. No provoking / relieving factors. --14:04 03/29/21 Estefania Guerin RN14:00 03/29/21.( Plaster splint applied here 03/22, not in place, patient said "it busted up" waiting for call from Ortho forappointment). He has had aching, pleuritic central chest pain. No radiation. 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 (Seen here for right foot ankle pain, splinted for possiblefracture to follow up with Ortho. Seen at [facility] x 2 left AMA due to long wait). --15:16 03/29/21 ANNE Woods.Weight: 140.7 kg measured. Height/Length: 68 inches Per Patient. BMI: 47.2. --13:54 03/29/21 ANNE Woods.MedicationsTopiramate Oral 75 mg, daily. --13:59 03/29/21 Estefania Guerin RN Atorvastatin Calcium Oral 40 mg, daily. busPIRone HCl Oral 10 mg. Cetirizine HCl Oral 10 mg. Famotidine Oral 20 mg. Gabapentin Oral (Tablet 600 mg). Levothyroxine Sodium Oral 25 mcg, daily. 2 Clinical Report - Nurses [facility] [address] [place] [address] Phone #: ext- [phone] 03/29/2021 13:53 Patient: DEANNA AN Sex: M : 1965 Age: 55yMetoprolol Tartrate Oral 25 mg, daily.Montelukast Sodium Oral (Tablet 10 mg).Omeprazole Oral 40 mg, daily.Trihexyphenidyl HCl Oral (Tablet 2 mg). --13:59 03/29/21 Estefania Guerin RNThe following entry was struck by Estefania Guerin RN, 14:33 (03/29/21) Reason - wrong value.Topiramate Oral (Tablet 50 mg), daily. --13:59 03/29/21 Estefania Guerin RNThe following entry was struck and corrected by Estefania Guerin RN, 14:33 (03/29/21) Reason forcorrection - other(correction).Topiramate Oral (Tablet 25 mg) 1 tablet, daily. --13:59 03/29/21 Estefania Guerin RN .Allergiesadhesive talpe.Codeine Phosphate.(hives)Latex. --13:59 03/29/21 Estefania Guerin RN.PROBLEMS:Back Pain.Hypercholesterolemia.Obesity.Hypothyroidism. --14:00 03/29/21 Damián Poon Fracture: RuleOut. --14:00 03/29/21 Estefania Guerin RN.ADDITIONAL SURGERIES:Carpal Tunnel Surgery.Finger removed.Screw in toe. --14:00 03/29/21 Estefania Guerin RNCardiac Surgery [11/13/2016]. (CABG x 4). --14:16 03/29/21 Estefania Guerin RNThe following entry was struck by Estefania Guerin RN, 14:16 03/29/21 Reason - duplicateHeart bypass. --16:47 03/27/20 Estefania Guerin RN.Kapzuhw28:52 03/29/21.PAST MEDICAL HX: Immunizations: up-to-date.SOCIAL HX: Former smoker, end date 2012. No alcohol use or drug use. He was offered HIV testingbut declined and hepatitis C testing but declined. He has not traveled outside the [place]Infectious disease exposure: No infectious disease exposure the patient was exposed to tuberculosis.Patient is a known carrier of tuberculosis. (Negative COVID screen, Had treatment for TB age 20). Patientis not a known carrier of hepatitis, HIV, MRSA, VRE or CRE.SELF HARM ASSESSMENT: Self harm assessment was performed. The patient answered "no" to thequestion(s) "Do you have thoughts of harming or killing yourself?" and "Have you recently had thoughts 3 Clinical Report - Nurses [facility] [address] [place] [address] Phone #: ext- [phone] 03/29/2021 13:53 ---- Patient: DEANNA AN Sex: M : 1965 Age: 55y about harming or killing others?". ABUSE ASSESSMENT: No report of abuse. NUTRITIONAL RISK ASSESSMENT: The nutritional risk assessment revealed no deficiencies. LEARNING NEEDS ASSESSMENT: The learning needs assessment revealed no barriers. FALL RISK ASSESSMENT: Fall risk assessment completed. Risk factors identified include severe pain. Fall interventions initiated. Patient placed on stretcher. Side rails up x2. Bed in low position. Brakes on. Patient identified as a fall risk by chart flagged. Call light in reach of patient. Instructed not to get up without assistance. Instructions given to patient including fall prevention information. Verbalizes understanding. FUNCTIONAL ASSESSMENT: Functional assessment performed. crutch. SKIN INTEGRITY ASSESSMENT: Skin integrity risk assessment completed. No skin integrity risk identified. --14:04 03/29/21 Estefania Guerin RN. Interventions 13:52 03/29/21. To treatment room. Ambulatory by EMS. room 6. --14:04 03/29/21 Estefania Guerin RN. 13:54 03/29/2021 Site #1 started via IV in the right antecubital space with an 20g angiocath, with aseptic technique and good blood return; one attempt. Saline lock flushed with 10 mL saline. --13:55 03/29/21 Estefania Guerin RN.PHYSICAL CLHEYQJABE23:00 03/29/21. Ambulatory to room.GENERAL / NEURO / PSYCH: Alert. Oriented X 4. Appears in no acute distress.HEENT: Mucous membranes are pink.RESPIRATORY: Respirations not labored. Chest pain reproducible with palpation of the sternum and withdeep breathing. Mid- sternal tenderness. The tenderness is well- localized. Decreased breath sounds.CVS: Normal sinus rhythm noted. Cardiac rhythm: normal sinus rhythm; no ectopy noted (82). Heartsounds within normal limits. Pulses within normal limits. Capillary refill less than 2 seconds.GI / : Abdomen soft and nontender.EXTREMITIES: Edema of the right lower extremity involving the foot, ankle and lower leg.SKIN: Skin is warm and dry. --14:08 03/29/21 Estefania Guerin RN.NURSING PROGRESS NOTES13:52 03/29/21. court monitor, NIBP monitor and pulse oximeter placed on patient; residential monitor-Lead II; monitor alarms on. Patient gowned. Head of bed elevated. Two patient identifiers checked.Call light placed in reach. Side rails up x 2. Bed placed in lowest position. Brakes of bed on. Patientready for evaluation- ED physician notified. --14:03/29/21 Estefania Guerin RN 4 Clinical Report - Nurses [facility] [address] [place] [address] Phone #: ext- [phone] 03/29/2021 13:53 Patient: DEANNA AN Sex: M : 1965 Age: 55y13:55 03/29/21. EKG time: (13:55 03/29/2021). EKG was ordered, performed by a nurse and shown tothe ED physician. --14:03/29/21 Estefania Guerin RN14:03/29/21. Patient ID band checked for patient name and birthdate. Blood samples drawn by lab perprotocol. --14:03/29/21 Estefania Guerin RN14:15 03/29/2021 Toradol (Ketorolac Tromethamine) IVP 30 mg given over 1 minute(s) via site #1.Allergies verified and confirmed 5 rights. IV patency established. IV site checked: no pain, redness, orswelling. IV flushed thoroughly pre- and post-medication administration. IVP given by RN. Informationreviewed with patient and family including reason for taking this medication and signs of allergic reaction.Verb alizes understanding. --14:15 03/29/21 Estefania Guerin RN14:15 03/29/21. ( Bedside ultrasound to r/o DVT right leg in progress).CVS: Cardiac rhythm: normal sinus rhythm. --14:20 03/29/21 LEXI Poon:35 03/29/21. Portable chest x-ray completed. (done in room 6). --14:35 03/29/21 LEXI Poon:45 03/29/21. BP: 137/100. MAP: 112. HR: 77. RR: 22. O2 saturation: 97%. Pain level now: 01/12.--15:39 03/29/21 Estefania Guerin RN14:45 03/29/2021 Toradol IVP Response: no adverse reaction pain is improving. Symptoms have improvedthe patient feels better. --15:42 03/29/21 MAYITO Poon:00 03/29/21. Reassessment after medication administered. No adverse reaction. Pain still present butimproving. He is sleeping. ( Awakens easily, respiration easy, no distress).CVS: Cardiac rhythm: normal sinus rhythm; (70). --15:41 03/29/21 MAYITO Poon:00 03/29/21. BP: 133/81. MAP: 98. HR: 71. RR: 22. O2 saturation: 99% on room air. Pain level now:01/12. --15:41 03/29/21 MAYITO Poon:15 03/29/21. BP: 137/87. MAP: 103. HR: 76. RR: 20. O2 saturation: 97%. Pain level now: 01/12.--15:43 03/29/21 MAYITO Poon:30 03/29/21. BP: 146/86. MAP: 106. HR: 80. RR: 20. O2 saturation: 96% on room air. Pain level now:01/12. --15:43 03/29/21 MAYITO Poon:45 03/29/21.Rounding: Pain: assessed pain level (sleeping, awakens to voice). Position: states comfortable (turns selfon left side). Proximity of possessions / care items: call light within easy reach and moved items closer.Plug ins: located all cords, tubes, and lines to prevent fall hazard. Set expectations: advised patient ofrounding protocol timing and asked if they needed anything else at this time. (Awaiting CT scan). --16: Estefania Guerin RN 5 Clinical Report - Nurses [facility] [address] [place] [address] Phone #: ext- [phone] 03/29/2021 13:53 Patient: DEANNA AN Sex: M : 1965 Age: 55y 15:45 03/29/21. BP: 135/88. MAP: 103. HR: 72. RR: 20. O2 saturation: 97%. Pain level now: 01/12. --16:07 03/29/21 Estefania Guerin RN 16:00 03/29/21. BP: 139/92. MAP: 107. HR: 69. RR: 20. O2 saturation: 97%. Pain level now: 01/12. --16:08 03/29/21 Estefania Guerin RN 16:03 03/29/21. Patient transported to CT by wheelchair with mask and crime scene evidence technician. --16:08 03/29/21 Estefania Guerin RN 16:15 03/29/21. Patient returned from CT by wheelchair with mask and crime scene evidence technician. --17:07 03/29/21 sEtefania Guerin RN 17:00 03/29/21. BP: 133/76. MAP: 95. HR: 67. RR: 22. O2 saturation: 100%. Pain level now: 01/12. --17:08 03/29/21 Estefania Guerin RN 17:15 03/29/21. BP: 134/83. MAP: 100. HR: 64. RR: 24. O2 saturation: 100% on room air. Pain level now: 01/12. --18:00 03/29/21 Estefania Guerin RN 17:30 03/29/21. BP: 134/76. MAP: 95. HR: 62. RR: 22. O2 saturation: 100% on room air. Pain level now: 01/12. --18:01 03/29/21 Estefania Guerin RN 17:48 03/29/21. Patient ID band checked for patient name and birthdate: patient confirmed. COVID-19 specimen obtained by RN via nasopharyngeal swab. Labeled in the presence of the patient and sent to lab. --18:01 03/29/21 Estefania Guerin RN 17:52 03/29/21. ( Hospitalist, Jerrica Poe HVAC MAINTENANCE TECHNICIAN in to examine patient for admission). --18:03 03/29/21 Estefania Guerin RN 18:30 03/29/21. The patient reports no complaints and he is calm, resting quietly and sleeping. ( Lying on left side, respirations easy). CVS: Cardiac rhythm: normal sinus rhythm. --19:08 03/29/21 Estefania Guerin RN 18:52 03/29/21. BP: 140/104. MAP: 116. HR: 67. RR: 24. O2 saturation: 97% on room air. Pain level now: 410. --19:08 03/29/21 Estefania Guerin RN 19:00 03/29/21. BP: 135/85. MAP: 101. HR: 59. RR: 17. O2 saturation: 97% on room air. Pain level now : 10. --19:09 03/29/21 Estefania Guerin RN 19:05 03/29/21. Care transferred and report given (Lesvia Martin RN). --19:09 03/29/21 Estefania Guerin RN.DISPOSITION / DISCHARGE Report was given to a nurse via a phone call. Report included information regarding patient's treatment, current vital signs and abnormal labs. Report included treatment information regarding medications given 6 Clinical Report - Nurses [facility] [address] [place] [address] Phone #: ext- [phone] 03/29/2021 13:53 Patient: DEANNA AN Sex: M : 1965 Age: 55y or pending. All questions were answered. Report was acknowledged and care was transferred. Bed obtained and ready. --20:35 03/29/21 Richard Martin RN 20:30 03/29/21. Cardiac rhythm: normal sinus rhythm. Disposition: observation in the Acute Inpatient Unit, Monitored. Transported via stretcher by nurse with monitor and mask. Patient's personal items include: shirt, socks and hat; items were placed in belongings bag and transported with the patient. --20:53 03/29/21 Richard Martin RN 20:30 03/29/21. BP: 144/95 (large adult cuff) taken on the left arm, via an automated monitor, while lying. MAP: 111. HR: 8 (regular, normal rate and strong). RR: 21 (regular, unlabored and normal). O2 saturation: 98% on room air. Temp: 97.6 F (oral). Pain level now: 0/10. --20:53 03/29/21 Richard Martin RN Departure time: 20:35 03/29/2021. --20:53 03/29/21 Richard Martin RN.Locked/Released at 03/29/2021 20:54 by Richard Martin RN Name Value Range Interpretation Code Description Data Toma rce(s) Supporting Document(s) ID Date Data Source [id number] 03/29/2021 01:56:00 PM EDT [facility] 1 Clinical Report - Physicians/Mid Levels [facility] [address] [place] [address] Phone #: ext- [phone] 03/29/2021 13:53 [id number] Sex[facility] : 1965 Age: 55y Time Seen: 13:57 03/29/2021; initial patient contact, initial documentation. Arrived- By ambulance. Historian- patient and EMS personnel. Disposition decision: 17:38 03/29/2021.HISTORY OF PRESENT ILLNESS Chief Complaint: CHEST PAIN and DISCOMFORT. It is described as pressure and tightness and it is described as located in the central chest area. No radiation. This started today and is still present and worsening. It was gradual in onset and has been intermittent. Onset during rest. At its maximum, severity described as 10 / 10. When seen in the E.D., severity described as 10 / 10. Modifying factors. Not worsened by anything. Not relieved by anything. No nausea, vomiting, difficulty breathing or diaphoresis. (Patient had 4 vessel CABG and states that he had 10/10 chest pain mid sternal that started at 10 pm. he states that he could not come to the ER immediately as there was something going on in is apartment. he also complains of worsening pain and swelling of the right leg. he fell 2 weeks ago and was seen in the ER 2 weeks ago. X ray of the foot did not show any fracture but x ray of the right ankle showed a possible avulsion fracture on the lateral maleolar area. he was placed on a posterior splint and saw orthopedics but advised mri of the ankle. he has been having severe pin on the right lower extremity . he went to [facility] yesterday but let without being seen because it was busy. he did not develop chest pain until this morning. he was given t aspirin by EMS).REVIEW OF SYSTEMSNo fever, chills, cough, fainting episodes or headache. No sore throat, blurred vision, abdominal pain,black stools or difficulty with urination. No skin rash, enlarged lymph nodes, joint pain or bloody stools.The patient has had pedal edema and calf pain. All other systems reviewed and are negative.PAST HISTORYSee nurses notes. Problems: Back Pain. Hypercholesterolemia. Obesity. Hypothyroidism. Ankle Fracture [RuleOut]. Additional Surgeries: Carpal Tunnel Surgery. Finger removed. Heart bypass. Screw in toe. Medications: 2 Clinical Report - Physicians/Mid Levels [facility] [address] [place] [address] Phone #: ext- [phone] 03/29/2021 13:53 Patient: DEANNA AN [facility]#: [id number] Sex: M : 1965 Age: 55y Atorvastatin Calcium Oral 40 mg, daily. busPIRone HCl Oral 10 mg. Cetirizine HCl Oral 10 mg. Famotidine Oral 20 mg. Gabapentin Oral (Tablet 600 mg). Levothyroxine Sodium Oral 25 mcg, daily. Metoprolol Tartrate Oral 25 mg, daily. Montelukast Sodium Oral (Tablet 10 mg). Omeprazole Oral 40 mg, daily. Topiramate Oral (Tablet 25 mg) 1 tablet, daily. Topiramate Oral (Tablet 50 mg), daily. Trihexyphenidyl HCl Oral (Tablet 2 mg). Allergies: adhesive talpe. Codeine Phosphate.(hives) Latex.SOCIAL HISTORYNever smoker. No alcohol use or drug use.ADDITIONAL NOTESThe nursing notes have been reviewed.PHYSICAL EXAMVital Signs: 03/29/2021 13:58 BP: 130/106. MAP: 114. HR: 78. RR: 15. O2 saturation: 98% on room air.Temp: 99.1 F. Pain level now: 07/14. Have been reviewed. Oxygen saturation normal.Appearance: Alert. Oriented X3. No acute distress. Anxious.Eyes: Pupils equal, round and reactive to light. Eyes normal inspection.ENT: Pharynx normal.Neck: Normal inspection. Neck supple.CVS: Normal heart rate and rhythm. Heart sounds normal. Pulses normal.Respiratory: No respiratory distress. Chest pain reproducible with palpation of the costochondral junctionand sternum. Chest pain is not reproduced with movement or deep breathing. Painless inspiration.Breath sounds normal.Abdomen: Soft and non tender. Bowel sounds normal. No organomegaly. No mass. Femoral pulsesequal. Obese.Back: Normal external inspection. No CVA tenderness.Skin: Skin warm and dry. Normal skin color. No rash. Normal skin turgor.Extremities: Moderate right- sided calf tenderness. Severe 3+ pitting edema of the right lower extremityinvolving the foot, ankle and lower leg.Neuro: Oriented X 3. No motor deficit. No sensory deficit.LABS, X-RAYS, AND EKGEKG: EKG time: 13:58 03/29/2021. No acute process. No acute ischemia. Normal EKG. Normal 3 Clinical Report - Physicians/Mid Levels [facility] [address] [place] [address] Phone #: ext- [phone] 03/29/2021 13:53 Patient: DEANNA AN Sex: M : 1965 Age: 55ysinus rhythm. Rate: 75. Normal P waves. Normal CHERYL. Normal QRS complex. Normal axis. NormalST and T waves. Prior EKG unavailable. The study has been interpreted contemporaneously by me.The study has been independently viewed by me. The EKG appears to be a good tracing. Interpretationtime: 14:08 03/29/2021.CTA Pulmonary Arteries: Radha dangelo Neal - 03/29/2021 4:28:03 PMNo pulmonary embolismNo focal infiltrate.Small bilateral pleural effusions and mild dependent atelectasis noted. The study was interpreted by theradiologist.Lower Extremity Sonography: Kayla farr Mike - 03/29/2021 2:33:52 PMnad radha/jean. The study was interpreted by the radiologist.Laboratory Tests:US Lower Ext Venous Right: (LEONARDA: 03/29/2021 14:01) ( MsgRcvd 03/29/2021 14:34) In ProgressUS DOPPLER UNI VENOUS LEG RTReason(s): Pain, LimbTRANSPORTATION: S IV? O2? Oxygen?(No) Room: [facility] w Diff: (LEONARDA: 03/29/2021 14:10) ( MsgRcvd 03/29/2021 14:54) Final results Test Result Flag Units (Reference) CBC W/AUTOMATED DIFF COMPLETE BLOOD COUNT WBC 10.2 10/uL (4.2 - 11.0) RBC 4.58 10/uL (4.50 - 6.30) HEMOGLOBIN 13.4 L g/dL (14.0 - 16.0) HEMATOCRIT 41.5 % (41.0 - 51.0) MCV 90.6 fL (80.0 - 94.0) MCH 29.3 pg (27.0 - 34.0) MCHC 32.3 g/dL (31.0 - 36.0) RDW 15.9 H % (11.5 - 14.8) PLATELETS 255 10/uL (150 - 450) MPV 9.6 fL (7.4 - 10.4) NEUT 74.6 % (37.0 - 80.0) LYMPH 12.7 L % (25.0 - 40.0) MONO 11.1 H % (3.0 - 8.0) EOS 0.2 % (0.0 - 7.0) BASO 0.5 % (0.0 - 2.0) %IG 0.9 H % (0.0 - 0.0) %NRBC 0.0 % (0.0 - 0.0) #NEUT 7.62 H 10/uL (2.00 - 6.90) #LYMPH 1.30 10/uL (0.60 - 3.40) #MONO 1.13 H 10/uL (0.00 - 0.90) #EOS 0.02 10/uL (0.00 - 0.70) #BASO 0.05 10/uL (0.00 - 0.20) #IG 0.09 10/uL (0.00 - 0.10) #NRBC 0.00 10/uL (0.00 - 0.00) MANUAL DIFF SEE BELOW SEGS 75 % (37 - 80) BAND 2 % (0 - 5) %LYMPH 11 L % (25 - 40) %MONO 12 H % (3 - 8) 4 Clinical Report - Physicians/Mid Levels [facility] [address] [place] [address] Phone #: ext- [phone] 03/29/2021 13:53 Patient: DEANNA AN Sex: M : 1965 Age: 55y NRBC 1 % RBC MORPH SEE BELOW { SICKLE CELL (NORMAL: NONE SEEN ) PLT EST NORMAL (NORMAL: YOHANA COMMENT: _PLATELET_CLUMPS_SEEN 03/29/21.1453.JSK. CMP: (LEONARDA: 03/29/2021 14:10) ( MsgRcvd 03/29/2021 14:50) Final results Test Result Flag Units (Reference) COMPREHENSIVE METABOLIC PANEL COMPREHENSIVE METABOLIC PANEL SODIUM 140 mEq/L (134 - 153) POTASSIUM 4.2 mEq/L (3.6 - 5.0) CHLORIDE 104 mEq/L (98 - 107) CO2 26 MEQ/L (22 - 30) GLUCOSE 104 H MG/DL (70 - 99) BUN 17 MG/DL (7 - 21) CREATININE 1.1 MG/DL (0.7 - 1.5) BUN/CREAT 15 (8 - 27) TOTAL PROTEIN 6.6 G/DL (6.3 - 8.2) ALBUMIN 4.3 G/DL (3.9 - 5.0) GLOBULIN 2.3 L GM/DL (2.4 - 3.2) A/G RATIO 1.9 (0.8 - 2.0) CALCIUM 9.6 MG/DL (8.4 - 10.2) TOTAL BILI <0.7 MG/DL (0.2 - 1.3) ALKALINE PHOS 125 U/L (38 - 126) SGOT/AST 21 U/L (5 - 40) SGPT/ALT 19 U/L (7 - 56) ANION GAP 10.0 mmol/L (8.0 - 16.0) AGE 55 yrs NON-AA GFR >60 mL/min AFR AMER GFR >60 mL/min Male GFR Interprentation 20-49 yrs >60 mL/min Uwarud78-39 yrs >56 mL/min Normal 60-69 yrs >49 mL/min Normal 70-79yrs>42 mL/min Normal 80 and above >35 mL/min Normal Female GFRInterpretation 20-39 yrs >60 mL/min Normal 40-49 yrs >58 mL/minNormal 50-59 yrs >51 mL/min Normal 60-69 yrs >45 mL/min Abtqez52-69 yrs >39 mL/min Normal 80 and above >32 mL/min NormalLipase: (LEONARDA: 03/29/2021 14:10) ( [facility] 03/29/2021 14:48) Final results Test Result Flag Units (Reference) LIPASE 16 U/L (13 - 60)Troponin-T: (LEONARDA: 03/29/2021 14:10) ( [facility] 03/29/2021 14:38) Final results Test Result Flag Units (Reference) TROPONIN T <0.01 NG/ML (0.00 - 0.10) TROPONIN T0.1 ng/ml Recommended as the clinical threshold value forTroponin T.D-Dimer: (LEONARDA: 03/29/2021 14:10) ( [facility] 03/29/2021 14:36) Final results Test Result Flag Units (Reference) D-DIMER QUANT 1.41 H ug/mL (0.27 - 0.50) 5 Clinical Report - Physicians/Mid Levels [facility] [address] [place] [address] Phone #: ext- [phone] 03/29/2021 13:53 -- [id number] Sex: [facility] : 1965 Age: 55y PT/INR: (LEONARDA: 03/29/2021 14:10) ( MsgRcvd 03/29/2021 14:36) Final results Test Result Flag Units (Reference) PROTIME 13.2 SECONDS (11.0 - 15.5) INR 0.99 (0.93 - 1.23) \\BLDo\\INR INTERPRETATION\\BLDx\\ Therapeutic range for Coumadin and related oral anticoagulants. -International Normalized Ratio (INR): 2.0 - 3.0 for Venous Thrombosis, Pulmonary Embolus, Tissue heart valves, Acute NV, Atrial Fibrillation, Valvular heart disease and recurrent Systemic Embolism. -International Normalized Ratio (INR): 2.5 - 3.5 for Mechanical Prosthetic valve..PROGRESS AND PROCEDURESCourse of Care: 15:22 03/29/21. Patient was given NTG for his chest pain which helped with the pain.Toradol was given for his right leg pain which is also better. his d dimer was elevated but US of theright leg did not show any DVT. will send him for CTA of the chest to rule out pE 17:39 03/29/21. patient had no pulmonary embolism on CTA of the chest. since he has extensive cardiac history we will admit for observation. I discussed the case with Jerrica Hanley who will admit the patient. Critical care performed (45 minutes). Time is exclusive of separately billable procedures. Time includes: direct patient care, patient reassessment, interpretation of data (laboratory data and pulse oximetry), review of patient's medical records, medical consultation and documentation of patient care- see progress notes. Patient counseled in person regarding the patient's stable condition, test results, diagnosis and need for admission. Patient agrees with plan of care. 17:40. Disposition: Observation in the Acute Inpatient Unit, Monitored. 17:41. UTI (catheter associated) was not present prior to being placed in observation. Surgical site infection was not present prior to being placed in observation. Blood incompatibility was not present prior to being placed in observation. Condition: good and stable. Observation decision based on further evaluation, monitoring and further testing.CLINICAL IMPRESSION Precordial chest pain characterized as "pressure". Acute coronary syndrome: stable angina. Right pedal edema.(Electronically signed by Krsitan Swain 03/29/2021 23:36) 6Clinical Report - Physicians/Mid Levels [facility] [address] [place] [address] Phone #: ext- [phone] 03/29/2021 13:53 Patient: DEANNA AN Sex: M : 1965 Age: 55y Name Value Range Interpretation Code Description Data Toma rce(s) Supporting Document(s) ID Date Data Source [id number] 03/29/2021 07:08:00 PM EDT [facility] Name Value Range Interpretation Code Description Data Toma rce(s) Supporting Document(s) TROPONIN T <0.01 NG/ML 0.00 - 0.10 [facility] ospital TROPONIN T0.1 ng/ml Recommended as the c linical threshold value forTroponin T. ID Date Data Source [id number] 03/29/2021 05:50:00 PM EDT [facility] Name Value Range Interpretation Code Description Data [facility] rce(s) Supporting Document(s) COVID19 Case rprt NOT DETECTED [facility] This lab was ordered by [facility] and reported by [facility]. ID Date Data Source [id number] 03/29/2021 06:37:00 PM EDT [facility] NOT DETECTEDNOT DETECTED{ PROC EDURAL CONTROL VALID KIT LOT # _[id number] 03/29/21.DW . KIT EXP DATE _33-02-68 03/29/21.DW . NORMAL RANGE IS NOT DETECTEDNEGATIVE RESULTS SHOULD BE TREATED PRESUMPTIVE AND, IF INCONSISTENT WITHCLINICAL SIGNS AND SYMPTOMS OR NECESSARY FOR PATIENT MANAGEMENT, SHOULD BETESTED WITH DIFFERENT AUTHORIZED OR CLEARED MOLECULAR TESTS. NEGATIVE RESULTSDO NOT PRECLUDE SARS-CoV-2 INFECTION AND SHOULD NOT BE USED THE SOLE BASISFOR PATIENT MANAGEMENT DECISIONS. Name Value Range Interpretation Code Description Data Toma rce(s) Supporting Document(s) ID Date Data Source [id number] 03/29/2021 08:17:00 PM EDT [facility] Name Value Range Interpretation Code Description Data Toma rce(s) Supporting Document(s) CVE PANEL [facility] al LIPID PANEL Cholesterol [Mass/volume] in Serum or Plasma 146 MG/DL 131 - 200 [facility] Deprecated Triglyceride [Mass/volume] in Serum or Plasma 114 MG/DL 3 5 - 160 [facility] HDL 49 MG/DL 29 - 86 [facility] Cholesterol in LDL [Mass/volume] in Serum or Plasma by Direc t assay 85 mg/dL 65 - 175 [facility] Cholesterol.total/Cholesterol in HDL [Mass Ratio] in Serum o r Plasma 3.0 3.4 - 4.9 L [facility] LDL/HDL 1.73 1.00 - 3.55 [facility] ital CVE RISK CHOL/HDL LDL/HDLMEN: 1/2 AVERAGE 3.43 1.00 AVERAGE 4.97 3.55 2X AVERAGE 9.55 6.25 3X AVERAGE 23.99 7.99WOMEN: 1/2 AVERAGE 3.27 1.47 AVERAGE 4.44 3.22 2X AVERAGE 7.05 5.03 3X AVERAGE 11.04 6.14 ID Date Data Source [id number] 03/29/2021 08:17:00 PM EDT [facility] Name Value Range Interpretation Code Description Data Toma rce(s) Supporting Document(s) Hemoglobin A1c/Hemoglobin.total in Blood 6.2 % 4.4 - 6.1 H [facility] {A1]{HB] ID Date Data Source [id number] 03/29/2021 05:43:00 PM EDT [facility] Name Value Range Interpretation Code Description Data Toma rce(s) Supporting Document(s) BNP 162 PG/ML 0 - 125 [facility] ID Date Data Source [id number] 03/29/2021 02:53:00 PM EDT [facility] Name Value Range Interpretation Code Description Data Toma rce(s) Supporting Document(s) CBC W/AUTOMATED DIFF [facility] COMPLETE BLOOD COUNT Leukocytes [#/volume] in Blood by Automated count 10.2 10^3/uL 4.2 - 11.0 [facility] Erythrocytes [#/volume] in Blood by Automated count 4.58 10^6/uL 4. 50 - 6.30 [facility] Hemoglobin [Mass/volume] in Blood 13.4 g/dL 14.0 - 16.0 L [facility] Hematocrit [Volume Fraction] of Blood by Automated count 41.5 % 4 1.0 - 51.0 [facility] Erythrocyte mean corpuscular volume [Entitic volume] by Auto mated count 90.6 fL 80.0 - 94.0 [facility] Erythrocyte mean corpuscular hemoglobin [Entitic mass] by Automated count 29.3 pg 27.0 - 34.0 [facility] Erythrocyte mean corpuscular hemoglobin concentration [Mass/volume] by Automated count 32.3 g/dL 31.0 - 36.0 [facility] Erythrocyte distribution width [Ratio] by Automated count 15.9 % 11.5 - 14.8 H [facility] Platelets [#/volume] in Blood by Automated count 255 10^3/uL 150 - 45 0 [facility] Platelet mean volume [Entitic volume] in Blood by Automated count 9.6 fL 7.4 - 10.4 [facility] Neutrophils/100 leukocytes in Blood by Automated count 74.6 % 37. 0 - 80.0 [facility] Lymphocytes/100 leukocytes in Blood by Manual count 12.7 % 25.0 - 40.0 L [facility] Monocytes/100 leukocytes in Blood by Automated count 11.1 % 3.0 - 8.0 H [facility] Eosinophils/100 leukocytes in Blood by Automated count 0.2 % 0.0 - 7.0 [facility] Basophils/100 leukocytes in Blood by Automated count 0.5 % 0.0 - 2.0 [facility] %IG 0.9 % 0.0 - 0.0 H [facility] al %NRBC 0.0 % 0.0 - 0.0 [facility] al Neutrophils [#/volume] in Blood by Automated count 7.62 10^3/uL 2.00 - 6.90 H [facility] Lymphocytes [#/volume] in Blood by Automated count 1.30 10^3/uL 0.60 - 3.40 [facility] Monocytes [#/volume] in Blood by Automated count 1.13 10^3/uL 0.00 - 0.90 H [facility] Eosinophils [#/volume] in Blood by Automated count 0.02 10^3/uL 0.00 - 0.70 [facility] Basophils [#/volume] in Blood by Automated count 0.05 10^3/uL 0.00 - 0.20 [facility] #IG 0.09 10^3/uL 0.00 - 0.10 [facility] #NRBC 0.00 10^3/uL 0.00 - 0.00 [facility] MANUAL DIFF SEE BELOW [facility] ital Segmented neutrophils/100 leukocytes in Blood by Manual count 75 % 37 - 80 [facility] BAND 2 % 0 - 5 [facility] al %LYMPH 11 % 25 - 40 L [facility] %MONO 12 % 3 - 8 H [facility] Nucleated erythrocytes/100 erythrocytes in Blood by Manual count 1 % [facility] RBC MORPH SEE BELOW [facility] { SICKLE CELL (NORMAL: NONE SEEN ) Platelet adequacy [Presence] in Blood by Light microscopy NORMAL NORMAL: NORMAL [facility] COMMENT: _PLATELET_CLUMPS_SEEN 03/29/21.1453.JSK. ID Date Data Source [id number] 03/29/2021 02:50:00 PM EDT [facility] Name Value Range Interpretation Code Description Data Toma rce(s) Supporting Document(s) COMPREHENSIVE METABOLIC PANEL [facility] COMPREHENSIVE METABOLIC PANEL Sodium [Moles/volume] in Serum or Plasma 140 mEq/L 134 - 153 [facility] Potassium [Moles/volume] in Serum or Plasma 4.2 mEq/L 3.6 - 5.0 [facility] Chloride [Moles/volume] in Serum or Plasma 104 mEq/L 98 - 107 [facility] Carbon dioxide, total [Moles/volume] in Serum or Plasma 26 MEQ/L 22 - 30 [facility] Glucose [Mass/volume] in Serum or Plasma 104 MG/DL 70 - 99 H [facility] BUN 17 MG/DL 7 - 21 [facility] Creatinine [Mass/volume] in Serum or Plasma 1.1 MG/DL 0.7 - 1.5 [facility] BUN/CREAT 15 8 - 27 [facility] al Protein [Mass/volume] in Serum or Plasma 6.6 G/DL 6.3 - 8.2 [facility] Albumin [Mass/volume] in Serum or Plasma 4.3 G/DL 3.9 - 5.0 [facility] Globulin [Mass/volume] in Serum by calculation 2.3 GM/DL 2.4 - 3.2 L [facility] A/G RATIO 1.9 0.8 - 2.0 [facility] Calcium [Mass/volume] in Serum or Plasma 9.6 MG/DL 8.4 - 10.2 [facility] Bilirubin.total [Mass/volume] in Serum or Plasma <0.7 MG/DL 0.2 - 1.3 [facility] Alkaline phosphatase [Enzymatic activity/volume] in Serum or Plasma 125 U/L 38 - 126 [facility] Aspartate aminotransferase [Enzymatic activity/volume] in Serum or Plasma 21 U/L 5 - 40 [facility] Alanine aminotransferase [Enzymatic activity/volume] in Seru m or Plasma 19 U/L 7 - 56 [facility] Anion gap 3 in Serum or Plasma 10.0 mmol/L 8.0 - 16.0 [facility] AGE 55 yrs [facility] NON-AA GFR >60 mL/min [facility] ital AFR AMER GFR >60 mL/min [facility] Male GFR In terprentation 20-49 yrs >60 mL/min Normal 50-59 yrs >56 mL/min Normal 60-69 yrs >49 mL/min Normal 70-79yrs >42 mL/min Normal 80 and above >35 mL/min Normal Female GFR Interpretation 20-39 yrs >60 mL/min Normal 40-49 yrs >58 mL/min Normal 50-59 yrs >51 mL/min Normal 60-69 yrs >45 mL/min Normal 70-79 yrs >39 mL/min Normal 80 and above >32 mL/min Normal ID Date Data Source [id number] 03/29/2021 02:48:00 PM EDT [facility] Name Value Range Interpretation Code Description Data Toma rce(s) Supporting Document(s) Lipase [Enzymatic activity/volume] in Serum or Plasma 16 U/L 13 - 60 [facility] ID Date Data Source [id number] 03/29/2021 02:38:00 PM EDT [facility] Value Range Interpretation Code Description Data Toma rce(s) Supporting Document(s) TROPONIN T <0.01 NG/ML 0.00 - 0.10 [facility] ospital TROPONIN T0.1 ng/ml Recommended as the c linical threshold value forTroponin T. ID Date Data Source [id number] 03/29/2021 02:36:00 PM EDT [facility] Value Range Interpretation Code Description Data Toma rce(s) Supporting Document(s) Fibrin D-dimer FEU [Mass/volume] in Platelet poor plasma 1.41 ug /mL 0.27 - 0.50 H [facility] ID Date Data Source [id number] 03/29/2021 02:36:00 PM EDT [facility] Name Value Range Interpretation Code Description Data Toma rce(s) Supporting Document(s) Prothrombin time (PT) 13.2 SECONDS 11.0 - 15.5 [facility] INR in Platelet poor plasma by Coagulation assay 0.99 0.93 - 1. 23 [facility] \\BLDo\\INR INTERPRETATION\\BLDx\\ Therapeutic range for Coumadin and related oral anticoagulants. - International Normalized Ratio (INR): 2.0 - 3.0 for Venous Thrombosis, Pulmonary Embolus, Tissue heart valves, Acute NV, Atrial Fibrillation, Valvular heart disease and recurrent Systemic Embolism. -International Normalized Ratio (INR): 2.5 - 3.5 for Mechanical Prosthetic valve. ID Date Data Source [id number] 03/26/2021 10:18:00 AM EDT [facility] [address] [place] [address] PHONE: [phone] FAX: [phone] Name .................. : JUVE Hawthorne Acct Number.................. : [id number] ROOM. ................. : [facility] Number ................... : [id number] Stay type ............. : E/R Discharge Date......... ... : 03/22/21 Admit Date ......... : 03/22/21 Admit Phys .................... : COONEYNORM Date of ....... : 1965 Family Phys ................... : HAVEN RIVERA Phone .................. : [phone] Age ................................ : 55 Film# .................. .:[id number] Sex ................................. : M Unsigned transcriptions are preliminary reports and do not represent a medical or legal document ANKLE AP & LATERAL RT [id number] COMPLETE:03/22/21 17:38 JLD [id number] Reason(s): Pain RIGHT ANKLE X-RAY: INDICATION: Pain. FINDINGS/IMPRESSION: The AP view is suboptimal. There is suggestion of a small avulsion fracture of the tip of the lateral malleolus. A large joint effusion is noted and there is soft tissue swelling throughout the ankle. IMPRESSION: Possible avulsion fracture of the distal tip of the lateral malleolus. Suboptimal positioning limits evaluation. Electronically Reviewed and Signed By Ollie Stewart M.D. , 03/26/21 10:18, [facility] Transcribe Initials: DRE , Transcribe Date: 03/22/21 23:06, Dictation Date: Copy for: EMERGENCY DEPT via modem Copy for: 710 MED REC DISCHARGED Page 1 of 1 Name Value Range Interpretation Code Description Data Toma rce(s) Supporting Document(s) ID Date Data Source [id number] 03/26/2021 10:18:00 [place] [address] PHONE: [phone] FAX: [phone] Name .................. : JUVE Hawthorne Acct Number.................. : [id number] ROOM. ................. : VT-30 Number ................... : [id number] Stay type ............. : E/R Discharge Date......... ... : 03/22/21 Admit Date ......... : 03/22/21 Admit Phys .................... : COONEYNORM Date of ....... : 1965 Family Phys ................... : HAVEN RIVERA Phone .................. : [phone] Age ................................ : 55 Film# .................. .:[id number] Sex ................................. : M Unsigned transcriptions are preliminary reports and do not represent a medical or legal document FOOT COMPLETE-3 OR MORE [place] [id number] COMPLETE:03/22/21 17:38 D [id number] Reason(s): Pain RIGHT FOOT X-RAY: INDICATION: Pain. FINDINGS/IMPRESSION: Postoperative changes are noted in the second to with fusion across the PIP joint. There is no evidence of acute hardware complication. No fracture or dislocation is appreciated. No significant degenerative change. Electronically Reviewed and Signed By Ollie Stewart M.D. , 03/26/21 10:18, [facility] Transcribe Initials: DRE , Transcribe Date: 03/22/21 23:08, Dictation Date: Copy for: EMERGENCY DEPT via mode Copy for: 710 MED REC DISCHARGED Page 1 of 1 Name Value Range Interpretation Code Description Data Toma rce(s) Supporting Document(s) ID Date Data Source [id number] 03/22/2021 04:02:00 PM EDT [facility] 1 OrderSheet [facility] [address] [place] [address] Phone #: ext- [phone] 03/22/2021 16:01 Patient: DEANNA AN Sex: M : 1965 Age: 55yWEIGHT:140.6 kg (S) HEIGHT:68 inches (S) BMI:47.1ALLERGIES: adhesive talpe, Codeine Phosphate, LatexCHIEF COMPLAINT: swelling, painDIAGNOSIS: Fracture of ankleLAB ORDERSOrder Description Priority Entered Acknowledged InitialedDIAGNOSTIC STUDY ORDERSOrder Description Priority Entered Acknowledged InitialedFoot Complete STAT 16:03/22/2021 16:27 Right Kristin Corbin Norma MD; Chuck R.N.(Oxygen?(No)) Reason for Study: Pain, Trauma/InjuryAnkle AP And LAT STAT 16:03/22/2021 16:27 Right Kristin Corbin Norma MD; Chuck R.N.(Oxygen?(No)) Reason for Study: Pain, Trauma/InjuryMEDICATION/IV/DRIP/FLUID ORDERSOrder Description Priority Entered Acknowledged InitialedGENERAL ORDERSOrder Description Priority Entered Acknowledged Initialed[Electronically signed by Deborah Fernández R.N. (18:26 03/22/2021)][Electronically signed by Yohana Cason MD (00:47 03/23/2021)][Electronically locked by Deborah Fernández R.N. (18:03/22/2021)] Name Value Range Interpretation Code Description Data Toma rce(s) Supporting Document(s) ID Date Data Source [id number] 03/22/2021 04:02:00 PM EDT [facility] 1 Medication Reconciliation Report [facility] [address] [place] [address] Phone #: ext- [phone] 03/22/2021 16:01 [id number] Sex[facility] M : 1965 Age: 55yWeight: 140.6 kgHeight/Length: 68 in.BMI: 47.1ALLERGIES: adhesive talpe, Codeine Phosphate, LatexThe patient's Home Medications are listed below:CONTINUE TAKING THE FOLLOWING MEDICATIONS: Atorvastatin Calcium Oral 40 mg, daily busPIRone HCl Oral 10 mg Cetirizine HCl Oral 10 mg Escitalopram Oxalate Oral 20 mg Escitalopram Oxalate Oral 10 mg Famotidine Oral 20 mg Gabapentin Oral (600 mg) Levothyroxine Sodium Oral 25 mcg, daily Metoprolol Tartrate Oral 25 mg, daily Montelukast Sodium Oral (10 mg) Omeprazole Oral 40 mg, daily Topiramate Oral (25 mg) 1 tablet, daily Topiramate Oral (50 mg), daily Trihexyphenidyl HCl Oral (2 mg)The source(s) of the original Home Medication information: 2 Medication Reconciliation Report [facility] Emergency Department [address] [place] [address] Phone #: ext- [phone] 03/22/2021 16:01 Patient: DEANNA AN Sex: M : 1965 Age: 55ypatientThe following Medications were given to the patient in the Emergency Department:None.The following Medications were prescribed to the patient:None. Name Value Range Interpretation Code Description Data Toma rce(s) Supporting Document(s) ID Date Data Source [id number] 03/22/2021 04:02:00 PM EDT [facility] 1 Medication Administration Record [facility] [address] [place] [address] Phone #: ext- [phone] 03/22/2021 16:01 Patient: DEANNA AN Sex: M : 1965 Age: 55yWeight: 140.6 kgHeight/Length: 68 inBMI: 47.1ALLERGIES: adhesive talpe, Codeine Phosphate, LatexDate/Time Medication Administered Medication Ordered Name Value Range Interpretation Code Description Data Toma rce(s) Supporting Document(s) ID Date Data Source [id number] 03/22/2021 04:02:00 PM EDT [facility] 1 General Instructions [facility] [address] [place] [address] Phone #: ext- [phone] 03/22/2021 16:01 Patient: DEANNA AN Sex: M : 1965 Age: 55ysprain right ankle.INSTRUCTIONSUse crutches. Wear splint. You may walk and bear weight as tolerated.(Please take tylenol and motrin for pain. please follow up with your plush dresser. use crutches as instructed.return if worse or any new symptoms.).Warnings: Further evaluation is necessary.GENERAL WARNINGS: Return or contact your physician immediately if your condition worsens orchanges unexpectedly, if not improving as expected, or if other problems arise.Your Current Medications: Your current home medications have been reviewed.CONTINUE TAKING THE FOLLOWING MEDICATIONS:Atorvastatin Calcium Oral : 40 mg daily.busPIRone HCl Oral : 10 mg.Cetirizine HCl Oral : 10 mg.Escitalopram Oxalate Oral : 20 mg.Escitalopram Oxalate Oral : 10 mg.Famotidine Oral : 20 mg.Gabapentin Oral : Tablet 600 mg.Levothyroxine Sodium Oral : 25 mcg daily.Metoprolol Tartrate Oral : 25 mg daily.Montelukast Sodium Oral : Tablet 10 mg.Omeprazole Oral : 40 mg daily.Topiramate Oral : Tablet 25 mg, 1 tablet daily.Topiramate Oral : Tablet 50 mg, daily.Trihexyphenidyl HCl Oral : Tablet 2 mg.Follow-up:Follow up with your doctor Thursday even if well. Call for an appointment. Reason for referral: evaluation.Summary of care provided to patient via paper.Understanding of the discharge instructions verbalized by patient. ADDITIONAL INFORMATION 2 General Instructions [facility] [address] [place] [address] Phone #: ext- [phone] 03/22/2021 16:01 Patient: DEANNA AN Sex: M : 1965 Age: 55yAnkle FractureYou have an ankle fracture. This means that one or more of the bones that make up the ankle jointare broken. This often causes pain, swelling, and bruising.A fracture is treated with a splint, cast, or special boot. It will take about 4 to 6 weeks for the fractureto heal. Surgery may be needed to fix severe injuries.Home care You will be given a splint, cast, or boot to prevent movement at the ankle joint. Unless you were told otherwise, use crutches or a walker. Don't put weight on the injured leg until cleared by your healthcare provider to do so. Crutches and walkers can be rented at many pharmacies and surgical or orthopedic supply stores. Don't put weight on a splint. It will break. Keep your leg raised to reduce pain and swelling. When sleeping, place a pillow under the injured leg. When sitting, support the injured leg so it is often. This is very important during the first 48 hours. Apply an ice pack over the injured area for no more than 15 to 20 minutes. Do this every 3 to 6 hours for the first 24 to 48 hours. Keep using ice packs 3 to 4 times a day for the next 2 to 3 3 General Instructions [facility] [address] [place] [address] Phone #: ext- [phone] 03/22/2021 16:01 Patient: DEANNA AN Sex: M : 1965 Age: 55y days, then as needed to ease pain and swelling. To make an ice pack, put ice cubes in a plastic bag that seals at the top. Wrap the bag in a clean, thin towel or cloth. Never put ice or an ice pack directly on the skin. You can place the ice pack directly over the cast or splint. As the ice melts, be careful that the cast or splint doesn't get wet. Keep the cast, splint, or boot completely dry at all times. Bathe with your cast, splint, or boot out of the water, protected with [address] 1 bag outside of the other. Tape each bag with duct tape at the top end or use rubber bands. Water can still leak in. So it's best to keep the cast, splint, or boot away from water. If a boot or fiberglass cast or splint gets wet, dry it with a nursing program chair on a cool setting. You may use [id number] pain medicine to control pain, unless another pain medicine was prescribed. Talk with your provider before using these medicines if you have chronic liver or kidney disease or ever had a stomach ulcer or GI (gastrointestinal) bleeding.Follow-up careFollow up with your healthcare provider in 1 week, or as advised. This is to be sure the bone ishealing correctly. If you were given a splint, it may be changed to a cast or boot at your follow-up visit.If X-rays were taken, you will be told of any new findings that may affect your care.When to seek medical adviceCall your healthcare provider right away if any of these occur: The plaster cast or splint becomes wet or soft The fiberglass cast or splint stays wet for more than 24 hours There is increased tightness, sore areas, or pain under the cast or splint Your toes become swollen, cold, blue, numb, or tingly The cast or splint becomes loose The cast or splint has a bad smell The cast or splint develops cracks or breaks The [employer]. [address] [place] [address]. All rights reserved. This information is not intended as asubstitute for professional medical care. Always follow your healthcare professional's instructions. You have been given the following additional information: Ankle Fracture 4 General Instructions [facility] [address] [place] [address] Phone #: ext- [phone] 03/22/2021 16:01 Patient: DEANNA AN Sex: M : 1965 Age: 55yYou may walk and bear weight as tolerated.(Electronically signed by Yohana Cason MD 03/23/2021 00:47) Name Value Range Interpretation Code Description Data Toma rce(s) Supporting Document(s) ID Date Data Source [id number] 03/22/2021 04:02:00 PM EDT [facility] 1 Clinical Report - Nurses [facility] [address] [place] [address] Phone #: ext [phone] 03/22/2021 16:01 Patient: DEANNA AN Sex: M : 1965 Age: 55yTRIAGE Arrived by private vehicle. Historian: patient. Triage time: 16:08 03/22/2021. Acuity: LEVEL 4. Chief Complaint: RIGHT LOWER EXTREMITY PAIN, SWELLING and REDNESS. Alert. No acute distress. Injury occurred. ( Pt was walking Tues and tripped over some elevated concrete and fell down. He saw his ft doctor and had an x-ray taken. They applied a boot and wrapped his foot. The boot did not fit bc his ft was so swollen. He waited in [facility] waiting room for hrs prior to coming here.). He has had swelling, redness and trouble walking. 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 SEPSIS SCREEN: SIRS SCREEN NEGATIVE. SEPSIS SCREEN NEGATIVE. No suspected or confirmed signs of infection present. TALHA COMA SCORE: 15- eyes open- spontaneous (4); best verbal response- oriented (5); best motor response- obeys commands (6). --16:16 03/22/21 Marisela Bobo R.N. 16:08 03/22/21. HR: 93. RR: 18. O2 saturation: 96% on room air. Temp: 98.2 F (temporal). Pain level now: 07/14. --16:16 03/22/21 Marisela Bobo R.N. 16:17 03/22/21. BP: 130/97. MAP: 108. --16:17 03/22/21 Marisela Bobo R.N. Weight: 140.6 kg stated. Height/Length: 68 inches Per Patient. BMI: 47.1. --16:07 03/22/21 Marisela Bobo R.N. Medications Omeprazole Oral 40 mg, daily. --16:21 03/22/21 Marisela Bobo R.N. Topiramate Oral (Tablet 50 mg), daily. --16:21 03/22/21 Marisela Bobo R.N. Topiramate Oral (Tablet 25 mg) 1 tablet, daily. --16:22 03/22/21 Marisela Bobo R.N. Trihexyphenidyl HCl Oral (Tablet 2 mg). --16:22 03/22/21 Marisela Bobo R.N. Atorvastatin Calcium Oral 40 mg, daily. --16:23 03/22/21 Marisela Bobo R.N. busPIRone HCl Oral 10 mg. --16:23 03/22/21 Marisela Bobo R.N. Cetirizine HCl Oral 10 mg. --16:23 03/22/21 Marisela Bobo R.N. Escitalopram Oxalate Oral 10 mg. --16:23 03/22/21 Marisela Bboo R.N. Escitalopram Oxalate Oral 20 mg. --16:24 03/22/21 Marisela Bobo R.N. Famotidine Oral 20 mg. --16:24 03/22/21 Marisela Bobo R.N. 2 Clinical Report - Nurses [facility] [address] [place] [address] Phone #: ext- [phone] 03/22/2021 16:01 Patient: DEANNA AN Sex: M : 1965 Age: 55yGabapentin Oral (Tablet 600 mg). --16:24 03/22/21 Marisela Bobo R.N.Levothyroxine Sodium Oral 25 mcg, daily. --16:24 03/22/21 Marisela Bobo R.N.Metoprolol Tartrate Oral 25 mg, daily. --16:25 03/22/21 Marisela Bobo R.N.Montelukast Sodium Oral (Tablet 10 mg). --16:25 03/22/21 Marisela Bobo R.N.Allergiesadhesive talpe.Codeine Phosphate.(hives)Latex. --16:16 03/22/21 Marisela Bobo R.N.PROBLEMS:Hypercholesterolemia.Back Pain.Hypothyroidism.Obesity.Neck Pain. --16:16 03/22/21 Marisela Bobo R.N.Medication/allergy information source: the patient. --16:16 03/22/21 Marisela oBbo R.N.ADDITIONAL SURGERIES:Carpal Tunnel Surgery.Finger removed.Heart bypass.Screw in toe. --16:16 03/22/21 Marisela Bobo R.N.HistoryPAST MEDICAL HX: Tetanus status: unknown.SOCIAL HX: Former smoker. No alcohol use or drug use. He was offered HIV testing but declined.Patient education was provided. He was offered hepatitis C testing but declined. Patient education wasprovided. He has not traveled outside the [place]Infectious disease exposure: No infectious disease exposure. The patient may have been exposed totuberculosis. Patient is a known carrier of tuberculosis. (CPVOD screen negative, pt is vaccinated). Patientis not a known carrier of hepatitis, HIV, MRSA, VRE or CRE.SELF HARM ASSESSMENT: Self harm assessment was performed. The patient answered "no" to thequestion(s) "Do you have thoughts of harming or killing yourself?", "Do you have a plan for harming orkilling yourself?" and "Have you recently had thoughts about harming or killing others?".ABUSE ASSESSMENT: Abuse assessment. The patient had positive responses to the question(s) "Do youfeel safe in your home?" (yes). Abuse denied. No suspicion of abuse. No report of abuse.NUTRITIONAL RISK ASSESSMENT: The nutritional risk assessment revealed no deficiencies.FUNCTIONAL ASSESSMENT: Functional assessment: no impairments noted. 3 Clinical Report - Nurses [facility] [address] [place] [address] Phone #: ext- [phone] 03/22/2021 16:01 Patient: DEANNA AN Sex: M : 1965 Age: 55y LEARNING NEEDS ASSESSMENT: The learning needs assessment revealed no barriers. FALL RISK ASSESSMENT: Fall risk assessment completed. Risk factors identified include dizziness and patient medications and history of fall. Fall interventions initiated. Patient placed on stretcher. Side rails up x2. Bed in low position. Brakes on. Patient visible from nurses' station and identified as a fall risk by chart flagged. Call light in reach of patient. Instructed not to get up without assistance. Instructions given to patient. Verbalizes understanding. SKIN INTEGRITY ASSESSMENT: Skin integrity risk assessment completed. No skin integrity risk identified. --16:16 03/22/21 Marisela Bobo R.N. Interventions Identification band on patient. --16:16 03/22/21 Marisela Bobo R.N.PHYSICAL ASSESSMENT 16:15 03/22/21. Ambulatory to room. GENERAL / NEURO / PSYCH: Alert. Appears in no acute distress. EXTREMITIES: Limited ROM present in the right ankle and right foot. Non-pitting edema of the right lower extremity involving the foot and ankle. Extremity pulses are within normal limits. Neuro-vascular status intact to the extremity. Right ankle: tenderness, swelling, ecchymosis and deformity. Limited ROM secondary to pain, weakness and swelling (diminished plantar flexion, dorsiflexion, inversion and eversion). Right ankle: tenderness, swelling and ecchymosis. Right foot: tenderness, swelling and ecchymosis. SKIN: Skin intact. Skin is warm and dry. --16:27 03/22/21 Chuck Corbin R.N.NURSING PROGRESS NOTES Cold pack applied. Reassurance given. Three patient identifiers checked. Call light placed in reach. Side rails up x 2. Bed placed in lowest position. Brakes of bed on. Patient ready for evaluation- ED physician notified. --16:18 03/22/21 Marisela Bobo R.N. 16:29 03/22/21. Patient transported to radiology by wheelchair with crime scene evidence technician. --16:34 03/22/21 Chuck Corbin R.N. 16:41 03/22/21. Patient returned from radiology by wheelchair with crime scene evidence technician. --16:41 03/22/21 Chuck Corbin R.N. Patient fit with new crutches. Crutch training performed by nurse; the patient demonstrated proper use. --18:24 03/22/21 Deborah Fernández R.N.DISPOSITION / DISCHARGE Condition at departure: improved. No learning barriers present. Reviewed crutch walking, splint care and rest, ice, compression and elevation instructions. Patient verbalized understanding. Written instructions provided in Bulgarian. The patient was discharged home and u naccompanied at time of discharge. He left on crutches and via taxi. 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 --18:25 03/22/21 Deborah Fernández R.N. 4 Clinical Report - Nurses [facility] [address] [place] [address] Phone #: ext- [phone] 03/22/2021 16:01 Patient: DEANNA AN Sex: M : 1965 Age: 55y 18:24 03/22/21. BP: 140/89. MAP: 106. HR: 90. RR: 18. O2 saturation: 99%. Temp: 97.6 F. Pain level now: 01/12. --18:25 03/22/21 Deborah Fernández R.N. Departure time: 18:25 03/22/2021. --18:25 03/22/21 Deborah Fernández R.N.Locked/Released at 03/22/2021 18:26 by Deborah Fernández R.N. Name Value Range Interpretation Code Description Data Toma rce(s) Supporting Document(s) ID Date Data Source [id number] 03/22/2021 04:02:00 PM EDT [facility] 1 Clinical Report - Physicians/Mid Levels [facility] [address] [place] [address] Phone #: ext- [phone] 03/22/2021 16:01 Patient: DEANNA AN Sex: M : 1965 Age: 55y Arrived- By private vehicle. Historian- patient. Disposition decision: 18:08 03/22/2021.HISTORY OF PRESENT ILLNESS Chief Complaint: LOWER EXTREMITY PAIN and SWELLING. This started 3 days and is still present. Severity is described as being moderate. The quality is noted to be aching. Symptoms located in the area of the right ankle and right foot. The patient has had swelling, but not had redness. He has had difficulty walking. No bladder dysfunction, bowel dysfunction, sensory loss or motor loss. ( Pt was walking Tues and tripped over some elevated concrete and fell down. He saw his ft doctor and had an x-ray taken. They applied a boot and wrapped his foot. The boot did not fit bc his ft was so swollen. He waited in [facility] waiting room for hrs prior to coming here.). He has had swelling, redness and trouble walking.). Patient notes an injury. Similar symptoms previously. None. Recent medical care: The patient was seen recently in the office.REVIEW OF SYSTEMSThe patient has had extremity swelling. No cough, chest pain or pain, difficulty breathing or fever. Noskin rash or rash, neck pain or back pain or pain. No headache, blurred vision or sore throat or throat.No abdominal pain or pain, vomiting, diarrhea or black stools. No difficulty with urination or urination,chills, fever or decreased vision. No ear pain, epistaxis, cough, constipation or nausea. No vomiting,urinary frequency, hematuria, headache or seizure. No easy bruising. The patient has had joint pain,and complains of pain on weight bearing.PAST HISTORYSee nurses notes.SOCIAL HISTORYNo drug use.ADDITIONAL NOTESThe nursing notes have been reviewed.PHYSICAL EXAMVital Signs: 03/22/2021 18:24 BP: 140/89. MAP: 106. HR: 90. RR: 18. O2 saturation: 99%. Temp: 97.6 F.Pain level now: 01/12.03/22/2021 16:17 BP: 130/97. MAP: 108.03/22/2021 16:08 HR: 93. RR: 18. O2 saturation: 96% on room air. Temp: 98.2 F. Pain level now: 07/14. 2 Clinical Report - Physicians/Mid Levels [facility] [address] [place] [address] Phone #: ext- [phone] 03/22/2021 16:01 Patient: DEANNA AN Sex: M : 1965 Age: 55yHave been reviewed and appear to be correct. Hypertensive. Mean arterial pressure- high. Heart ratenormal. Respiratory rate normal. Temperature normal. Oxygen saturation normal.Appearance: Alert. Oriented X3. In distress.Eyes: Pupils equal, round and reactive to light. Eyes normal inspection.ENT: Nose normal. Pharynx normal.Neck: Normal inspection. Neck supple.CVS: Normal heart rate and rhythm. Heart sounds normal.Respiratory: No respiratory distress. Painless inspiration. Breath sounds normal.Abdomen: Soft and nontender.Back: Normal inspection. No tenderness. ROM normal.Skin: (bruising to proximal foot).Extremities: Moderate 2+ pitting edema of the right lower extremity involving the foot and ankle. No calftenderness.Neuro, Vascular and Tendons: No pulse deficit present.Neuro: Oriented X 3. No motor deficit. No sensory deficit.LABS, X-RAYS, AND EKGLaboratory Tests:Foot Complete Right: (LEONARDA: 03/22/2021 16:21) ( MsgRcvd 03/22/2021 23:09) In ProgressFOOT COMPLETE- 3 OR MORE VW RTReason(s): PainTRANSPORTATION: WC IV? O2? Oxygen?(No) Room: ED Exam FOOT COMPLETE-3 [place] [address] PHONE: [phone] FAX: [phone] Name .................. : JUVE Hawthorne Acct Number.................. : [id number] ROOM. ................. : VT-30 MR Number .. ................. : [id number] Stay type ............. : E/R Discharge Date......... ... : 03/22/21 Admit Date ......... : 03/22/21 Admit Phys .................... : COONEYNORM Date of ....... : 1965 Family Phys ................... : HAVEN RIVERA Phone .................. : [phone] Age ................................ : 55 Film# .................. .:[id number] Sex ................................. : M Unsigned transcriptions are preliminary reports and do not represent a medical or legal document FOOT COMPLETE-3 OR MORE [place] [id number] COMPLETE:03/22/21 17:38 [facility] [id number] Reason(s): Pain Trauma/Injury RIGHT FOOT X-RAY: INDICATION: Pain. FINDINGS/IMPRESSION: Postoperative changes are noted in the second to with fusion across the PIP joint. There is no evidence of acute hardware complication. No fracture or dislocation is appreciated. No significant degenerative change. 3 Clinical Report - Physicians/Mid Levels [facility] [address] [place] [address] Phone #: ext- [phone] 03/22/2021 16:01 Patient: DEANNA AN Sex: M : 1965 Age: 55y Electronically Reviewed and Signed By MARISELA ROMERO NHY Transcribe Initials: DZ , Transcribe Date: 03/22/21 23:08, Dictation Date: <<REPDIST>> Page 1 of 1Ankle AP And LAT Right: (LEONARDA: 03/22/2021 16:21) ( MsgRcvd 03/22/2021 23:08) In ProgressANKLE APReason(s): PainTRANSPORTATION: WC IV? O2? Oxygen?(No) Room: ED Exam ANKLE AP //T// LATERAL RT [facility] [address] [place] [address] PHONE: [phone] FAX: [phone] Name .................. : JUVE Hawthorne Acct Number.................. : [id number] ROOM. ................. : [address] Number ................... : [id number] Stay type ............. : E/R Discharge Date......... ... : 03/22/21 Admit Date ......... : 03/22/21 Admit Phys .................... : [facility] Date of ....... : 1965 Family Phys ................... : OROURKE NICOLE Phone .................. : [phone] Age ................................ : 55 Film# .................. .:[id number] Sex ................................. : M Unsigned transcriptions are preliminary reports and do not represent a medical or legal document ANKLE AP Reason(s): Pain Trauma/Injury RIGHT ANKLE X-RAY: INDICATION: Pain. FINDINGS/IMPRESSION: The AP view is suboptimal. There is suggestion of a small avulsion fracture of the tip of the lateral malleolus. A large joint effusion is noted and there is soft tissue swelling throughout the ankle. IMPRESSION: Possible avulsion fracture of the distal tip of the lateral malleolus. Suboptimal positioning limits evaluation. Electronically Reviewed and Signed By DCTNAME SIGNDATESHEMAR Clinical Report - Physicians/Mid Levels [facility] [address] [place] [address] Phone #: [phone] 03/22/2021 16:01 Patient: DEANNA AN Sex: M : 1965 Age: 55y Transcribe Initials: DRE , Transcribe Date: 03/22/21 23:06, Dictation Date: <<REPDIST>> Page 1 of 1.PROGRESS AND PROCEDURESSplint Application: Posterior fiberglass splint applied to right foot, ankle and lower leg. Reassessedextremity following splint application. Neurovascular intact. Follow-up recommended within 3 days. Fittedfor crutches by the nurse. Splinting applied by me. Course of Care: pt presented for swelling to right foot. the boot he was given by his plush dresser does not fit. xray shows a possible frx to distal lateral malleolus. a short posterior splint was applied. pt tolerated procedure well. no complications. pt was instructed to go back to podiatry for further evaluation. he should take tylenol and motrin for pain. pt given crutches with instructions. Patient/family counseled. Disposition: Discharged. Condition: good and stable.CLINICAL IMPRESSION Possible closed right lateral malleolus fracture. sprain right ankle.INSTRUCTIONS Use crutches. Wear splint. You may walk and bear weight as tolerated. (Please take tylenol and motrin for pain. please follow up with your plush dresser. use crutches as instructed. return if worse or any new symptoms.). Warnings: Further evaluation is necessary. GENERAL WARNINGS: Return or contact your physician immediately if your condition worsens or changes unexpectedly, if not improving as expected, or if other problems arise. Your Current Medications: Your current home medications have been reviewed. CONTINUE TAKING THE FOLLOWING MEDICATIONS: Atorvastatin Calcium Oral : 40 mg daily. 5 Clinical Report - Physicians/Mid Levels [facility] [address] [place] [address] Phone #: ext- [phone] 03/22/2021 16:01 Patient: DEANNA AN Sex: M : 1965 Age: 55y busPIRone HCl Oral : 10 mg. Cetirizine HCl Oral : 10 mg. Escitalopram Oxalate Oral : 20 mg. Escitalopram Oxalate Oral : 10 mg. Famotidine Oral : 20 mg. Gabapentin Oral : Tablet 600 mg. Levothyroxine Sodium Oral : 25 mcg daily. Metoprolol Tartrate Oral : 25 mg daily. Montelukast Sodium Oral : Tablet 10 mg. Omeprazole Oral : 40 mg daily. Topiramate Oral : Tablet 25 mg, 1 tablet daily. Topiramate Oral : Tablet 50 mg, daily. Trihexyphenidyl HCl Oral : Tablet 2 mg. Follow-up: Follow up with your doctor Thursday even if well. Call for an appointment. Reason for referral: evaluation. Summary of care provided to patient via paper. Understanding of the discharge instructions verbalized by patient.(Electronically signed by Yohana Cason MD 03/23/2021 00:47) Name Value Range Interpretation Code Description Data Toma rce(s) Supporting Document(s) ID Date Data Source [id number] 03/09/2021 02:54:00 AM EDT [facility] Name Value Range Interpretation Code Description Data Toma rce(s) Supporting Document(s) SARS coronavirus 2 RNA [Presence] in Res piratory specimen by KIRK with probe detection NEGATIVE [facility] This lab was ordered by [facility] a nd reported by [facility]. ID Date Data Source [id number] 02/28/2021 06:02:00 PM EDT [facility] Name Value Range Interpretation Code Description Data Toma rce(s) Supporting Document(s) SARS coronavirus 2 RNA [Presence] in Res piratory specimen by KIRK with probe detection NEGATIVE [facility] This lab was ordered by [facility] a nd reported by [facility]. ID Date Data Source [id number] 01/17/2021 09:30:00 AM EDT [facility] Name Value Range Interpretation Code Description Data Toma rce(s) Supporting Document(s) SARS-CoV-2 (COVID-19) RNA [Presence] in Respiratory specimen by KIRK with probe detection Not Detected [facility] This lab was ordered by [facility] and reported by [employer]. ID Date Data Source [id number] 11/20/2020 12:00:00 AM EST eCW1 ([facility]) Name Value Range Interpretation Code Description Data Toma rce(s) Supporting Document(s) 24.0 30.0-100.0 eCW1 ([facility]) ID Date Data Source Basic Metabolic Profile (BMP) 11/20/2020 12:00:00 AM EST eCW 1 ([facility]) Name Value Range Interpretation Code Description Data Toma rce(s) Supporting Document(s) 81 70-100 eCW1 ([facility]) 1.29 0.70-1.30 eCW1 ([facility]) 143 136-145 eCW1 ([facility]) > 60.0 >56 eCW1 ([facility]) 10 7-18 eCW1 ([facility]) 109 98-107 eCW1 ([facility]) 4.4 3.5-5.1 eCW1 ([facility]) 29 21-32 eCW1 ([facility]) 9.1 8.5-10.1 eCW1 ([facility]) ID Date Data Source FREE T4 & TSH PANEL 11/20/2020 12:00:00 AM EST eCW1 ([facility]) Name Value Range Interpretation Code Description Data Toma rce(s) Supporting Document(s) 2.460 0.358-3.740 THYROID STIMULATING HORM ONE eCW1 ([facility]) 0.71 0.76-1.46 FREE T4 eCW1 ([facility]) ID Date Data Source [id number] 11/05/2020 09:50:00 AM EST [facility] ([facility]) Name Value Range Interpretation Code Description Data Toma rce(s) Supporting Document(s) Laboratory test finding (navigational concept) Laboratory test result [facility] ([facility]) ID Date Data Source [id number] 07/21/2020 11:01:24 PM EDT [facility] Name Value Range Interpretation Code Description Data Toma rce(s) Supporting Document(s) &PDF [facility] YQBSLj1nJsIILqNd33/ZKWxcERWao3OhIJunSKg8UJvrQAPdH7UauWdbKDCPHP2PDVRZVPEKId0KNCbe 0b3 HkTVVaGoGOiZL2JR8aVGDzxsLjsjV7bK8jYS5IWJH+Oi6MQB7ug0MdBOe2LBZly0YsMEjiSLl0P8PvdF BzkpDkKuvbrCCFBNNhCRToV7lpvun5uAHpSIA4Dp0EYdIya8DeYTDgSMzWrp2qV9/TWBB+X2n/w5H2YY bMhcQewaipoIVPqMy9mQvWCuCBOO6luJFe6CHWc24a 6eBoXSnmiqYjeeH4y2+Z+qK9wcRUAQc//5zEsXNYtuoe2jGGptpRcY+/nacdc8hX4e/YesNPXf41mfLL IZyvGk9Wl/UG7RrhsD9SuUT+HyyIRZuJk2N9rI+tJ7u7QluhVvzvgXuRlmatO7TCT5d9yK0HFZk84fb9 n4vGik7GZ533a0DACqzx16407iyXr07Q2+d1mv5x66 [file] ICAgICAgICAgICAgICAgICAgICAgICAgICAgICAgICAgICAgICAgICAgICAgICAgICAgICAgICAgICAg ICAgICAgICAgICAgICAgICAgICAgICAgDQogICAgICAgICAgICAgICAgICAgICAgICAgICAgICAgICAg ICAgICAgICAgICAgICAgICAgICAgICAgICAgICAgIC AgICAgICAgICAgICAgICAgICAgICAgICAgICAgICAgICAgDQogICAgICAgICAgICAgICAgICAgICAgIC AgICAgICAgICAgICAgICAgICAgICAgICAgICAgICAgICAgICAgICAgICAgICAgICAgICAgICAgICAgIC AgICAgICAgICAgICAgICAgDQogICAgICAgICAgICAg ICAgICAgICAgICAgICAgICAgICAgICAgICAgICAgICAgICAgICAgICAgICAgICAgICAgICAgICAgICAg ICAgICAgICAgICAgICAgICAgICAgICAgICAgDQogICAgICAgICAgICAgICAgICAgICAgICAgICAgICAg ICAgICAgICAgICAgICAgICAgICAgICAgICAgICAgIC AgICAgICAgICAgICAgICAgICAgICAgICAgICAgICAgICAgICAgDQogICAgICAgICAgICAgICAgICAgIC AgICAgICAgICAgICAgICAgICAgICAgICAgICAgICAgICAgICAgICAgICAgICAgICAgICAgICAgICAgIC AgICAgICAgICAgICAgICAgICAgDQogICAgICAgICAg ICAgICAgICAgICAgICAgICAgICAgICAgICAgICAgICAgICAgICAgICAgICAgICAgICAgICAgICAgICAg ICAgICAgICAgICAgICAgICAgICAgICAgICAgICAgDQogICAgICAgICAgICAgICAgICAgICAgICAgICAg ICAgICAgICAgICAgICAgICAgICAgICAgICAgICAgIC AgICAgICAgICAgICAgICAgICAgICAgICAgICAgICAgICAgICAgICAgDQogICAgICAgICAgICAgICAgIC AgICAgICAgICAgICAgICAgICAgICAgICAgICAgICAgICAgICAgICAgICAgICAgICAgICAgICAgICAgIC AgICAgICAgICAgICAgICAgICAgICAgDQogICAgICAg ICAgICAgICAgICAgICAgICAgICAgICAgICAgICAgICAgICAgICAgICAgICAgICAgICAgICAgICAgICAg EZFpLKBlWXChCKVlJSTqZVClFTSeZLKrDLQqXXRxTPRzHYl4S0raXJLxNDOrQF9aRXq3Wo4+DQoNCmVu NVN3nbUiqB1SPF3oh6PrAXkpEOGpd7VoBUa9TC3NNZ GbASeiOY6GNPqwfd1LILIyMLMypTTDe7xkLwYpZZD3TIPmMsxzLI5ATHVyW9xbneCjCNQqJMJBBWtjHO CTRT7HHuEdJ9SifH05NRQVKm3+QLmbxqAvMrtBTkO9TVJhw3JdKYx8XN4DYDCoAZogFR9XQRNsmJ7mHI ihUD3EXoNjOUSzJXQKAyDoJ78viNBsPOz0J0PoWzEs ZGVkRmlsZXMgPDwvTmFtZXMgWyBdDQogID4+ID4+TAkiFI3SURoapnJiDHYaKn2ATJRfLHR0OLCdqQPo XpKmWSDTTZphVI5ZmVUsTKR9yU3bPYbsIFSuPWOyV1iXKeWtlKixPA56fBjguzHnhJHeADa+Zp2NAD5e t2CbGXf9mzNxFFdwVEI2KJwaICZaKJPgOCQyXOL2AY N5DRIGZbQyZQGtJRTnAAevIUCpDLXkqi4ZCVGsKXFrErYkVdEgECYbJJSoVEefACUsUHF9Evw3KXCkEB UbQF9YOxMdPSTrRHSpNVTiPVMjJUPuzm1OYWIfRUHwEpHrXCDlECHmFDFbWNfaLDOrMNJsNnRnDAAmKW OuIX6EGxCmMKCfUIB5YkeaRYCzMRYmky9GEISsZRHy BQDxKYJxZRZnJCZcVWgvUZCmUPX8LGllQHRfRFXfJK9GUhBzVEVaYKKtEMWyCAKrGMVkyp3ZHCReUKNe VHP5FhLeFDAaVOSgXFaoWIXbSDO8OSD3QISjWONnYL3MOwAdXWLsUBP7DuluQRDcQIDdwz0ROWHlIILb NjgxNiAwMDAwMCBuDQowMDAwMDExNjcyIDAwMDAwIG 2CQxXbBCLtBOP1RVpgXQGcAHWirk1DMANyHTHzQpGeTNRwRTUtAVNqMRojWRVqBVZsEXZyHQZxKIWeFW 4ZUrStEULfVIH1RPpjFQQyJFFktu4GKZXpBSVtDnKkQWWvQMImSYOtUTntVUDwWCYiUgT4DELbAHLuNH 9RUbPjGLQtMBM7WPwjGUZoNWBpib3FRERxLCGlBCO0 SdJoNQNqBHHjROvxHQYhCPUmDNmkSOZdVQHcVK9PYsAkKASbDnOiGqsgFMCnPTWodz0LTYWxDDYrIZG6 CDPmWQXnRSKpYRx2bnRwgIYkYAl6EK2UF5MzxqSpScgQAa1Rn821UGE5IPJaLx5GN9uuEm5pKVOaVSPG Na0AWUu3PNA7KeUzEJf1QNPmPtM8TBI5HyZ2VrNhZ5 J0MQHuW1H+ZKbtSIrmKzA1NCioJNBuZtyrAqmgUWdmZZZ2Bnj7DmNfKK5zRLHEDv9+DQpzdGFydHhyZW ACPzI0StW9WQizFQSBUs2O ID Date Data Source [id number] 07/18/2020 10:02:00 AM EDT [facility] ([facility] Name Value Range Interpretation Code Description Data Toma rce(s) Supporting Document(s) Surgical pathology study Laboratory test result [facility] ([facility] FINAL DIAGNOSIS Bone, bilateral feet, exostectomy: Bone, for gross examination only. 07/19/2020 - 09 CLINICAL DIAGNOSIS Pain due to internal orthopedic device 07/18/2020 - 152 GROSS DIAGNOSIS Received in formalin labeled "bilateral feet bone" and consists of two pieces of munguia-white bone measuring 1.2 x 1.0 x 0.4 cm. in aggregate. The specimen is for gross exam only. -SV 07/18/2020 - 1522 Signed KIRSTY HEALY MD 07/19/2020 0900 ID Date Data Source [id number] 07/17/2020 11:13:00 AM EDT [facility] ([facility] Name Value Range Interpretation Code Description Data Toma rce(s) Supporting Document(s) Glucose, Fasting 90 mg/dL 70-100 [facility] ([facility] Blood Urea Nitrogen 15 mg/dL 7-18 [facility] ([facility] Creatinine For GFR 1.08 mg/dL 0.70-1.30 [facility] ([facility] Glomerular Filtration Rate Laboratory test result [facility] ([facility] <content>Units are mL/min/1.73 m2</content>
<content></content>
<content>Chronic Kidney Disease Staging per NKF:</content>
<content></content>
<content>Stage I & II GFR >=60 Normal to Mildly Decreased</content>
<content>Stage III GFR 30- 59 Moderately Decreased</content>
<content>Stage IV GFR 15-29 Severely Decreased</content>
<content>Stage V GFR <15 Very Little GFR Left</content>
<content>ESRD GFR <15 on PODIATRIC TECHNICIAN</content>
<content></content> Sodium Level 142 meq/L 136-145 [facility] ([facility] Potassium Serum 4.4 meq/L 3.5-5.1 [facility] ([facility] Carbon Dioxide Level 27 meq/L 21-32 [facility] ([facility] Chloride Level 110 meq/L 98-107 Above high normal [facility] ([facility] Anion Gap 5 meq/L 8-16 [facility] ([facility] Calcium Level 9.2 mg/dL 8.5-10.1 [facility] ([facility] ID Date Data Source [id number] 07/17/2020 11:13:00 AM EDT [facility] ([facility] Name Value Range Interpretation Code Description Data Toma rce(s) Supporting Document(s) Red Blood Count 5.17 10 4.30-6.10 [facility] ([facility] White Blood Count 6.9 10 4.0-10.0 [facility] ([facility] Hemoglobin 14.8 g/dL 13.5-17.5 [facility] ([facility] Mean Corpuscular Hemoglobin 28.6 pg 27.0-33.0 [facility] ([facility] Mean Corpuscular Volume 90.3 fl 80.0-96.0 M [facility]ENT ([facility] Hematocrit 46.7 % 42.0-52.0 [facility] ([facility] Platelet Count, Automated 250 10 150-450 [facility] ([facility] Mean Corpuscular HGB Conc 31.7 g/dL 32.0-36.5 [facility] ([facility] Red Cell Distribution Width 15.0 % 11.5-14.5 Above high normal [facility] ([facility] Nucleated Red Blood Cell % 0.0 % 0-0 [facility] ([facility] ID Date Data Source [id number] 07/13/2020 11:30:00 AM EDT [facility] Name Value Range Interpretation Code Description Data Toma rce(s) Supporting Document(s) SARS coronavirus 2 RNA [facility] This lab was ordered by [facility] and reported by [facility]. ID Date Data Source [id number] 06/14/2020 11:00:00 AM EDT [facility] ([facility]) Name Value Range Interpretation Code Description Data Toma rce(s) Supporting Document(s) Coronavirus 2019 Nasopharygeal Laboratory test result [facility] ([facility]) This nucleic acid amplification test was developed and its performance characteristics determined by [facility]. Nucleic acid amplification tests include PCR and [...] detected) result in this assay. Performed at: [address] [id number] Director Electronics: Ruth Ann Gonzalez MD, Phone: [phone] Not Detected ID Date Data Source [id number] 06/14/2020 11:00:00 AM EDT [facility] Name Value Range Interpretation Code Description Data Toma rce(s) Supporting Document(s) SARS coronavirus 2 RNA [facility] This lab was ordered by [facility] and reported by [facility]. Procedure Social History Code Duration Value Status Description Data Source(s ) Smoking 07/23/2021 12:00:00 AM EDT Former Smoker completed Former Smoker eCW1 ([facility]) Smoking 07/23/2021 12:00:00 AM EDT Former Smoker completed Former Smoker eCW1 ([facility]) Smoking 07/23/2021 12:00:00 AM EDT Former Smoker completed Former Smoker eCW1 ([facility]) Smoking 07/23/2021 12:00:00 AM EDT Former Smoker completed Former Smoker eCW1 ([facility]) Smoking 07/23/2021 12:00:00 AM EDT Former Smoker completed Former Smoker eCW1 ([facility]) Smoking 07/22/2021 12:00:00 AM EDT Former Smoker completed Former Smoker eCW1 ([facility]) Smoking 06/28/2021 12:00:00 AM EDT Former Smoker completed Former Smoker eCW1 ([facility]) Smoking 06/28/2021 12:00:00 AM EDT Former Smoker completed Former Smoker eCW1 ([facility]) Smoking 06/28/2021 12:00:00 AM EDT Former Smoker completed Former Smoker eCW1 ([facility]) Smoking 06/28/2021 12:00:00 AM EDT Former Smoker completed Former Smoker eCW1 ([facility]) Smoking 06/28/2021 12:00:00 AM EDT Former Smoker completed Former Smoker eCW1 ([facility]) Smoking 06/13/2021 12:00:00 AM EDT Former Smoker completed Former Smoker eCW1 ([facility]) Smoking 06/13/2021 12:00:00 AM EDT Former Smoker completed Former Smoker eCW1 ([facility]) Smoking 06/13/2021 12:00:00 AM EDT Former Smoker completed Former Smoker eCW1 ([facility]) Smoking 05/23/2021 12:00:00 AM EDT Patient is a former smoker completed Patient is a former smoker [facility] ([facility] ) Smoking 05/16/2021 12:00:00 AM EDT Former Smoker completed Former Smoker eCW1 ([facility]) Smoking 05/16/2021 12:00:00 AM EDT Former Smoker completed Former Smoker eCW1 ([facility]) Smoking 05/16/2021 12:00:00 AM EDT Former Smoker completed Former Smoker eCW1 ([facility]) Smoking 05/16/2021 12:00:00 AM EDT Former Smoker completed Former Smoker eCW1 ([facility]) Smoking 05/16/2021 12:00:00 AM EDT Former Smoker completed Former Smoker eCW1 ([facility]) Smoking 04/25/2021 12:00:00 AM EDT Former Smoker completed Former Smoker eCW1 ([facility]) Smoking 04/25/2021 12:00:00 AM EDT Former Smoker completed Former Smoker eCW1 ([facility]) Smoking 04/25/2021 12:00:00 AM EDT Former Smoker completed Former Smoker eCW1 ([facility]) Smoking 04/25/2021 12:00:00 AM EDT Former Smoker completed Former Smoker eCW1 ([facility]) Smoking 04/25/2021 12:00:00 AM EDT Former Smoker completed Former Smoker eCW1 ([facility]) Smoking 04/25/2021 12:00:00 AM EDT Former Smoker completed Former Smoker eCW1 ([facility]) Alcohol intake 04/19/2021 12:00:00 AM EDT Current non-d [place] of alcohol (finding) completed Current non-drinker of alcohol (finding) [facility] Smoking 04/15/2021 12:00:00 AM EDT Former Smoker completed Former Smoker eCW1 ([facility]) Smoking 04/15/2021 12:00:00 AM EDT Former Smoker completed Former Smoker eCW1 ([facility]) Smoking 04/15/2021 12:00:00 AM EDT Former Smoker completed Former Smoker eCW1 ([facility]) Smoking 04/15/2021 12:00:00 AM EDT Former Smoker completed Former Smoker eCW1 ([facility]) Smoking 04/10/2021 12:00:00 AM EDT Former Smoker completed Former Smoker eCW1 ([facility]) Smoking 03/15/2021 12:00:00 AM EDT Former Smoker completed Former Smoker eCW1 ([facility]) Smoking 03/15/2021 12:00:00 AM EDT Former Smoker completed Former Smoker eCW1 ([facility]) Smoking 03/15/2021 12:00:00 AM EDT Former Smoker completed Former Smoker eCW1 ([facility]) Smoking 03/15/2021 12:00:00 AM EDT Former Smoker completed Former Smoker eCW1 ([facility]) Smoking 02/25/2021 12:00:00 AM EDT Former Smoker completed Former Smoker eCW1 ([facility]) Smoking 02/25/2021 12:00:00 AM EDT Former Smoker completed Former Smoker eCW1 ([facility]) Smoking 02/25/2021 12:00:00 AM EDT Former Smoker completed Former Smoker eCW1 ([facility]) Smoking 02/05/2021 12:00:00 AM EDT Former Smoker completed Former Smoker eCW1 ([facility]) Smoking 02/05/2021 12:00:00 AM EDT Former Smoker completed Former Smoker eCW1 ([facility]) Smoking 02/05/2021 12:00:00 AM EDT Former Smoker completed Former Smoker eCW1 ([facility]) Smoking 02/05/2021 12:00:00 AM EDT Former Smoker completed Former Smoker eCW1 ([facility]) Smoking 02/05/2021 12:00:00 AM EDT Former Smoker completed Former Smoker eCW1 ([facility]) Smoking 01/25/2021 12:00:00 AM EDT Former Smoker completed Former Smoker eCW1 ([facility]) Smoking 01/25/2021 12:00:00 AM EDT Former Smoker completed Former Smoker eCW1 ([facility]) Smoking 01/22/2021 12:00:00 AM EDT Former Smoker completed Former Smoker eCW1 ([facility]) Smoking 01/22/2021 12:00:00 AM EDT Former Smoker completed Former Smoker eCW1 ([facility]) Smoking 12/11/2020 12:00:00 AM EST Former Smoker completed Former Smoker eCW1 ([facility]) Smoking 12/11/2020 12:00:00 AM EST Former Smoker completed Former Smoker eCW1 ([facility]) Smoking 12/11/2020 12:00:00 AM EST Former Smoker completed Former Smoker eCW1 ([facility]) Smoking 12/11/2020 12:00:00 AM EST Former Smoker completed Former Smoker eCW1 ([facility]) Smoking 12/11/2020 12:00:00 AM EST Former Smoker completed Former Smoker eCW1 ([facility]) Smoking 12/11/2020 12:00:00 AM EST Former Smoker completed Former Smoker eCW1 ([facility]) Smoking 12/11/2020 12:00:00 AM EST Former Smoker completed Former Smoker eCW1 ([facility]) Smoking 12/11/2020 12:00:00 AM EST Former Smoker completed Former Smoker eCW1 ([facility]) Smoking 12/11/2020 12:00:00 AM EST Former Smoker completed Former Smoker eCW1 ([facility]) Smoking 12/11/2020 12:00:00 AM EST Former Smoker completed Former Smoker eCW1 ([facility]) Smoking 12/10/2020 12:00:00 AM EST Former Smoker completed Former Smoker eCW1 ([facility]) Smoking 11/20/2020 12:00:00 AM EST Former Smoker completed Former Smoker eCW1 ([facility]) Smoking 11/20/2020 12:00:00 AM EST Former Smoker completed Former Smoker eCW1 ([facility]) Smoking 11/20/2020 12:00:00 AM EST Former Smoker completed Former Smoker eCW1 ([facility]) Smoking 11/20/2020 12:00:00 AM EST Former Smoker completed Former Smoker eCW1 ([facility]) Smoking 11/20/2020 12:00:00 AM EST Former Smoker completed Former Smoker eCW1 ([facility]) Smoking 11/20/2020 12:00:00 AM EST Former Smoker completed Former Smoker eCW1 ([facility]) Smoking 11/20/2020 12:00:00 AM EST Former Smoker completed Former Smoker eCW1 ([facility]) Smoking 11/20/2020 12:00:00 AM EST Former Smoker completed Former Smoker eCW1 ([facility]) Smoking 11/17/2020 12:00:00 AM EST Patient is a former smoker completed Patient is a former smoker [facility] ([facility]) Smoking 11/05/2020 12:00:00 AM EST Patient is a former smoker completed Patient is a former smoker [facility] ([facility]) Smoking 10/09/2020 12:00:00 AM EST Former Smoker completed Former Smoker eCW1 ([facility]) Smoking 10/09/2020 12:00:00 AM EST Former Smoker completed Former Smoker eCW1 ([facility]) Smoking 10/09/2020 12:00:00 AM EST Former Smoker completed Former Smoker eCW1 ([facility]) Smoking 09/24/2020 12:00:00 AM EST Former Smoker completed Former Smoker eCW1 ([facility]) Smoking 09/24/2020 12:00:00 AM EST Former Smoker completed Former Smoker eCW1 ([facility]) Smoking 09/24/2020 12:00:00 AM EST Former Smoker completed Former Smoker eCW1 ([facility]) Smoking 09/24/2020 12:00:00 AM EST Former Smoker completed Former Smoker eCW1 ([facility]) Smoking 09/24/2020 12:00:00 AM EST Former Smoker completed Former Smoker eCW1 ([facility]) Smoking 08/15/2020 12:00:00 AM EST Former Smoker completed Former Smoker eCW1 ([facility]) Smoking 08/15/2020 12:00:00 AM EST Former Smoker completed Former Smoker eCW1 ([facility]) Smoking 08/15/2020 12:00:00 AM EST Former Smoker completed Former Smoker eCW1 ([facility]) Smoking 08/15/2020 12:00:00 AM EST Former Smoker completed Former Smoker eCW1 ([facility]) Smoking 08/15/2020 12:00:00 AM EST Former Smoker completed Former Smoker eCW1 ([facility]) Smoking 08/15/2020 12:00:00 AM EST Former Smoker completed Former Smoker eCW1 ([facility]) Smoking 08/15/2020 12:00:00 AM EST Former Smoker completed Former Smoker eCW1 ([facility]) Smoking 08/15/2020 12:00:00 AM EST Former Smoker completed Former Smoker eCW1 ([facility]) Smoking 08/15/2020 12:00:00 AM EST Former Smoker completed Former Smoker eCW1 ([facility]) Smoking 08/09/2020 12:00:00 AM EST Former Smoker completed Former Smoker eCW1 ([facility]) Smoking 08/09/2020 12:00:00 AM EST Former Smoker completed Former Smoker eCW1 ([facility]) Smoking 08/09/2020 12:00:00 AM EST Former Smoker completed Former Smoker eCW1 ([facility]) Smoking 08/09/2020 12:00:00 AM EST Former Smoker completed Former Smoker eCW1 ([facility]) Smoking 08/09/2020 12:00:00 AM EST Former Smoker completed Former Smoker eCW1 ([facility]) Smoking 08/08/2020 12:00:00 AM EST Former Smoker completed Former Smoker eCW1 ([facility]) Smoking 08/07/2020 12:00:00 AM EST Former Smoker completed Former Smoker eCW1 ([facility]) Smoking 07/26/2020 12:00:00 AM EDT Former Smoker completed Former Smoker eCW1 ([facility]) Smoking 07/17/2020 12:00:00 AM EDT Former Smoker completed Former Smoker eCW1 ([facility]) Vital Signs ID Date Data Source UNK Name Value Range Interpretation Code Description Data Source(s) Body weight 312.0 [lb_av] 312.0 [lb_av] eCW1 ([facility]) Body height 68 [in_i] 68 [in_i] eCW1 ([facility]ly [facility]) Body mass index (BMI) [Ratio] 47.43 kg/m2 47.43 kg/m2 eCW1 ([facility]) Systolic blood pressure 132 mm[Hg] 132 mm[Hg] e CW1 ([facility]) Diastolic blood pressure 84 mm[Hg] 84 mm[Hg] eCW1 ([facility]) Body weight 316.6 [lb_av] 316.6 [lb_av] eCW1 ([facility]) Body weight 143.61 kg 143.61 kg eCW1 ([facility]) Body height 68 [in_i] 68 [in_i] eCW1 ([facility]) Body mass index (BMI) [Ratio] 48.13 kg/m2 48.13 kg/m2 eCW1 ([facility]) Systolic blood pressure 130 mm[Hg] 130 mm[Hg] e CW1 ([facility]) Diastolic blood pressure 78 mm[Hg] 78 mm[Hg] eCW1 ([facility]) Body weight 310.0 [lb_av] 310.0 [lb_av] eCW1 ([facility]) Body weight 140.62 kg 140.62 kg eCW1 ([facility]) Body height 68 [in_i] 68 [in_i] eCW1 ([facility]) Body mass index (BMI) [Ratio] 47.13 kg/m2 47.13 kg/m2 eCW1 ([facility]) Heart rate 69 /min 69 /min eCW1 ([facility]) Respiratory rate 18 /min 18 /min eCW1 ([facility]) Body temperature 98.8 [degF] 98.8 [degF] eCW1 ( [facility]) Systolic blood pressure 144 mm[Hg] 144 mm[Hg] e CW1 ([facility]) Diastolic blood pressure 88 mm[Hg] 88 mm[Hg] eCW1 ([facility]) Body height 68 [in_i] 68 [in_i] MEDENT ([facility]) 5'8" Body mass index (BMI) [Ratio] 47.9 kg/m2 47.9 k g/m2 [facility] ([facility]) Body weight 315.00 [lb_av] 315.00 [lb_av] MEDEN T ([facility]) Systolic blood pressure 116 mm[Hg] 116 mm[Hg] M EDENT ([facility]) Diastolic blood pressure 74 mm[Hg] 74 mm[Hg] MEDENT ([facility]) Heart rate 70 /min 70 /min [facility] ([facility]) Oxygen saturation in Arterial blood by Pulse oximetry 100 % 100 % [facility] ([facility]) Room Air Body height 68 [in_i] 68 [in_i] [facility] ([facility]) 5'8" Body weight 313.00 [lb_av] 313.00 [lb_av] MEDEN T ([facility]) Body mass index (BMI) [Ratio] 47.6 kg/m2 47.6 k g/m2 [facility] ([facility]) [place] body weight 154 [lb_av] 154 [lb_av] MEDEN T ([facility]) Body weight 141.[address] [facility] ([facility]) Body surface area Derived from formula 2.47 m[address] [facility] ([facility]) Body weight 312 [lb_av] 312 [lb_av] eCW1 ([facility]) Body weight 141.52 kg 141.52 kg W1 ([facility]) Body height 68 [in_i] 68 [in_i] eCW1 ([facility]) Body mass index (BMI) [Ratio] 47.43 kg/m2 47.43 kg/m2 W1 ([facility]) Systolic blood pressure 136 mm[Hg] 136 mm[Hg] e CW1 ([facility]) Diastolic blood pressure 74 mm[Hg] 74 mm[Hg] eCW1 ([facility]) Body weight 307 [lb_av] 307 [lb_av] eCW1 ([facility]) Body height 68 [in_i] 68 [in_i] eCW1 ([facility]) Body mass index (BMI) [Ratio] 46.67 kg/m2 46.67 kg/m2 W1 ([facility]) Heart rate 84 /min 84 /min eCW1 ([facility]) Respiratory rate 20 /min 20 /min eCW1 ([facility]) Body temperature 97.8 [degF] 97.8 [degF] eCW1 ( [facility]) Systolic blood pressure 134 mm[Hg] 134 mm[Hg] e CW1 ([facility]) Diastolic blood pressure 70 mm[Hg] 70 mm[Hg] eCW1 ([facility]) Systolic blood pressure 116 mm[Hg] 116 mm[Hg] [facility] Diastolic blood pressure 76 mm[Hg] 76 mm[Hg] [facility] Heart rate 65 /min 65 /min [facility] Respiratory rate 18 /min 18 /min [facility] Body weight 140.343 kg 140.343 kg [facility] Body mass index (BMI) [Ratio] 47.04 kg/m2 47.04 kg/m2 [facility] Oxygen saturation in Arterial blood by Pulse oximetry 98 % 98 % [facility] Heart rate 68 /min 68 /min eCW1 ([facility]) Respiratory rate 19 /min 19 /min eCW1 ([facility]) Body weight 306 [lb_av] 306 [lb_av] eCW1 ([facility]) Body height 68 [in_i] 68 [in_i] eCW1 ([facility]) Body mass index (BMI) [Ratio] 46.52 kg/m2 46.52 kg/m2 W1 ([facility]) Body temperature 98 [degF] 98 [degF] eCW1 ([facility]) Systolic blood pressure 133 mm[Hg] 133 mm[Hg] e CW1 ([facility]) Diastolic blood pressure 79 mm[Hg] 79 mm[Hg] eCW1 ([facility]) Body weight 306.8 [lb_av] 306.8 [lb_av] eCW1 ([facility]) Systolic blood pressure 120 mm[Hg] 120 mm[Hg] e CW1 ([facility]) Diastolic blood pressure 60 mm[Hg] 60 mm[Hg] eCW1 ([facility]) Body height 68 [in_i] 68 [in_i] eCW1 ([facility]) Body mass index (BMI) [Ratio] 46.64 kg/m2 46.64 kg/m2 eCW1 ([facility]) Heart rate 87 /min 87 /min eCW1 ([facility]) Respiratory rate 20 /min 20 /min eCW1 ([facility]) Body temperature 97.1 [degF] 97.1 [degF] eCW1 ( [facility]) Body weight 310 [lb_av] 310 [lb_av] eCW1 ([facility]) Body height 68 [in_i] 68 [in_i] eCW1 ([facility]) Body mass index (BMI) [Ratio] 47.13 kg/m2 47.13 kg/m2 W1 ([facility]) Heart rate 77 /min 77 /min eCW1 ([facility]) Respiratory rate 20 /min 20 /min eCW1 ([facility]) Body temperature 98 [degF] 98 [degF] eCW1 ([facility]) Systolic blood pressure 124 mm[Hg] 124 mm[Hg] e CW1 ([facility]) Diastolic blood pressure 70 mm[Hg] 70 mm[Hg] eCW1 ([facility]) Body weight 314 [lb_av] 314 [lb_av] eCW1 ([facility]) Respiratory rate 18 /min 18 /min eCW1 ([facility]) Body temperature 98.1 [degF] 98.1 [degF] eCW1 ( [facility]) Systolic blood pressure 130 mm[Hg] 130 mm[Hg] e CW1 ([facility]) Diastolic blood pressure 80 mm[Hg] 80 mm[Hg] eCW1 ([facility]) Body height 68 [in_i] 68 [in_i] eCW1 ([facility]) Body mass index (BMI) [Ratio] 47.74 kg/m2 47.74 kg/m2 eCW1 ([facility]) Heart rate 81 /min 81 /min eCW1 ([facility]) Body weight 315.00 [lb_av] 315.00 [lb_av] MEDEN T ([facility], ) Body height 68 [in_i] 68 [in_i] MEDENT ([facility]) 5'8" Body mass index (BMI) [Ratio] 47.9 kg/m2 47.9 k g/m[facility] [place] body weight 154 [lb_av] 154 [lb_av] MEDEN T ([facility]) Body weight 142.884 kg 142.884 kg MEDENT ([facility]) Body surface area Derived from formula 2.[address] [facility] ([facility]) Body weight 315.00 [lb_av] 315.00 [lb_av] MEDEN T ([facility]) Body mass index (BMI) [Ratio] 47.9 kg/m2 47.9 k g/m2 [facility] ([facility]) [place] body weight 154 [lb_av] 154 [lb_av] MEDEN T ([facility]) Body weight 142.884 kg 142.884 kg [facility] Systolic blood pressure 126 mm[Hg] 126 mm[Hg] M EDENT ([facility]) Diastolic blood pressure 70 mm[Hg] 70 mm[Hg] MEDENT ([facility]) Body height 68 [in_i] 68 [in_i] MEDENT ([facility]) 5'8" Body surface area Derived from formula 2.[address] [facility] ([facility], ) Body weight 308 [lb_av] 308 [lb_av] eCW1 ([facility]) Body height 68 [in_i] 68 [in_i] eCW1 ([facility]) Body mass index (BMI) [Ratio] 46.83 kg/m2 46.83 kg/m2 eCW1 ([facility]) Heart rate 88 /min 88 /min eCW1 ([facility]) Respiratory rate 20 /min 20 /min eCW1 ([facility]) Body temperature 98.6 [degF] 98.6 [degF] eCW1 ( [facility]) Systolic blood pressure 130 mm[Hg] 130 mm[Hg] e CW1 ([facility]) Diastolic blood pressure 84 mm[Hg] 84 mm[Hg] eCW1 ([facility]) Body weight 304 [lb_av] 304 [lb_av] eCW1 ([facility]) Body height 68 [in_i] 68 [in_i] eCW1 ([facility]) Body mass index (BMI) [Ratio] 46.22 kg/m2 46.22 kg/m2 eCW1 ([facility]) Heart rate 85 /min 85 /min eCW1 ([facility]) Respiratory rate 18 /min 18 /min eCW1 ([facility]) Body temperature 97.6 [degF] 97.6 [degF] eCW1 ( [facility]) Systolic blood pressure 121 mm[Hg] 121 mm[Hg] e CW1 ([facility]) Diastolic blood pressure 76 mm[Hg] 76 mm[Hg] eCW1 ([facility]) Body weight 305 [lb_av] 305 [lb_av] eCW1 ([facility]) Body height 68 [in_i] 68 [in_i] eCW1 ([facility]) Body mass index (BMI) [Ratio] 46.37 kg/m2 46.37 kg/m2 eCW1 ([facility]) Heart rate 85 /min 85 /min eCW1 ([facility]) Respiratory rate 20 /min 20 /min eCW1 ([facility]) Body temperature 97.5 [degF] 97.5 [degF] eCW1 ( [facility]) Systolic blood pressure 136 mm[Hg] 136 mm[Hg] e CW1 ([facility]) Diastolic blood pressure 80 mm[Hg] 80 mm[Hg] eCW1 ([facility]) Body mass index (BMI) [Ratio] 45.6 kg/m2 45.6 k g/m2 MEDENT ([facility] [place], [facility]) Systolic blood pressure 113 mm[Hg] 113 mm[Hg] M EDENT ([facility] [place], [facility]) Diastolic blood pressure 61 mm[Hg] 61 mm[Hg] MEDENT ([facility] [place], [facility]) Heart rate 58 /min 58 /min MEDENT ([facility], [facility]) Respiratory rate 13 /min 13 /min MEDENT ( [facility] [place], [facility]) Oxygen saturation in Arterial blood by Pulse oximetry 96 % 96 % MEDENT ([facility] [place], [facility]) Body temperature 95.1 [degF] 95.1 [degF] MEDENT ([facility] [place], [facility]) Body weight 300.00 [lb_av] 300.00 [lb_av] MEDEN T ([facility], [facility]) Body height 68 [in_i] 68 [in_i] MEDENT ([facility] [place], [facility]) 5'8" Body temperature 96.7 [degF] 96.7 [degF] MEDENT ([facility]) Body temperature 97.3 [degF] 97.3 [degF] MEDENT ([facility]) Body temperature 97.3 [degF] 97.3 [degF] MEDENT ([facility]) Body height 68 [in_i] 68 [in_i] MEDENT ([facility]) 5'8" Body weight 306.00 [lb_av] 306.00 [lb_av] MEDEN T ([facility] ) Body mass index (BMI) [Ratio] 46.5 kg/m2 46.5 k g/m2 MEDENT ([facility]) Body temperature 96.8 [degF] 96.8 [degF] MEDENT ([facility]) Body weight 306 [lb_av] 306 [lb_av] eCW1 ([facility]) Body height 68 [in_i] 68 [in_i] eCW1 ([facility]) Body mass index (BMI) [Ratio] 46.52 kg/m2 46.52 kg/m2 eCW1 ([facility]) Heart rate 90 /min 90 /min eCW1 ([facility]) Respiratory rate 20 /min 20 /min eCW1 ([facility]) Body temperature 97 [degF] 97 [degF] eCW1 ([facility]) Systolic blood pressure 130 mm[Hg] 130 mm[Hg] e CW1 ([facility]) Diastolic blood pressure 80 mm[Hg] 80 mm[Hg] eCW1 ([facility]) Body weight 305.0 [lb_av] 305.0 [lb_av] eCW1 ([facility]) Body height 68 [in_i] 68 [in_i] eCW1 ([facility]) Body mass index (BMI) [Ratio] 46.37 kg/m2 46.37 kg/m2 eCW1 ([facility]) Heart rate 85 /min 85 /min eCW1 ([facility]) Respiratory rate 18 /min 18 /min eCW1 ([facility]) Body temperature 96.9 [degF] 96.9 [degF] eCW1 ( [facility]) Systolic blood pressure 121 mm[Hg] 121 mm[Hg] e CW1 ([facility]) Diastolic blood pressure 76 mm[Hg] 76 mm[Hg] eCW1 ([facility]) Body weight 300 [lb_av] 300 [lb_av] eCW1 ([facility]) Body height 68 [in_i] 68 [in_i] eCW1 ([facility]) Body mass index (BMI) [Ratio] 45.61 kg/m2 45.61 kg/m2 eCW1 ([facility]) Heart rate 69 /min 69 /min eCW1 ([facility]) Respiratory rate 18 /min 18 /min eCW1 ([facility]) Body temperature 97.9 [degF] 97.9 [degF] eCW1 ( [facility]) Systolic blood pressure 118 mm[Hg] 118 mm[Hg] e CW1 ([facility]) Diastolic blood pressure 68 mm[Hg] 68 mm[Hg] eCW1 ([facility]) Body mass index (BMI) [Ratio] 45.79 kg/m2 45.79 kg/m2 eCW1 ([facility]) Body weight 301.2 [lb_av] 301.2 [lb_av] eCW1 ([facility]) Body height 68 [in_i] 68 [in_i] eCW1 ([facility]) Heart rate 68 /min 68 /min eCW1 ([facility]) Respiratory rate 18 /min 18 /min eCW1 ([facility]) Body temperature 98.4 [degF] 98.4 [degF] eCW1 ( [facility]) Systolic blood pressure 115 mm[Hg] 115 mm[Hg] e CW1 ([facility]) Diastolic blood pressure 68 mm[Hg] 68 mm[Hg] eCW1 ([facility]) Body weight 295 [lb_av] 295 [lb_av] eCW1 ([facility]) Body height 68 [in_i] 68 [in_i] eCW1 ([facility]) Body mass index (BMI) [Ratio] 44.85 kg/m2 44.85 kg/m2 eCW1 ([facility]) Heart rate 110 /min 110 /min eCW1 ([facility]) Respiratory rate 18 /min 18 /min eCW1 ([facility]) Body temperature 97.9 [degF] 97.9 [degF] eCW1 ( [facility]) Systolic blood pressure 112 mm[Hg] 112 mm[Hg] e CW1 ([facility]) Diastolic blood pressure 80 mm[Hg] 80 mm[Hg] eCW1 ([facility]) Body weight 297.4 [lb_av] 297.4 [lb_av] eCW1 ([facility]) Body height 68 [in_i] 68 [in_i] eCW1 ([facility]) Body mass index (BMI) [Ratio] 45.21 kg/m2 45.21 kg/m2 eCW1 ([facility]) Heart rate 78 /min 78 /min eCW1 ([facility]) Respiratory rate 20 /min 20 /min eCW1 ([facility]) Body temperature 97.2 [degF] 97.2 [degF] eCW1 ( [facility]) Systolic blood pressure 113 mm[Hg] 113 mm[Hg] e CW1 ([facility]) Diastolic blood pressure 56 mm[Hg] 56 mm[Hg] eCW1 ([facility]) Body weight 297.4 [lb_av] 297.4 [lb_av] eCW1 ([facility]) Body height 68 [in_i] 68 [in_i] eCW1 ([facility]) Body mass index (BMI) [Ratio] 45.21 kg/m2 45.21 kg/m2 W1 ([facility]) Heart rate 99 /min 99 /min eCW1 ([facility]) Respiratory rate 20 /min 20 /min eCW1 ([facility]) Body temperature 98.5 [degF] 98.5 [degF] eCW1 ( [facility]) Systolic blood pressure 104 mm[Hg] 104 mm[Hg] e CW1 ([facility]) Diastolic blood pressure 70 mm[Hg] 70 mm[Hg] eCW1 ([facility]) Systolic blood pressure 111 mm[Hg] 111 mm[Hg] M EDENT ([facility], [facility]) Diastolic blood pressure 77 mm[Hg] 77 mm[Hg] MEDENT ([facility], [facility]) Heart rate 67 /min 67 /min MEDENT ([facility], [facility]) Respiratory rate 14 /min 14 /min [facility] ( [facility]) Oxygen saturation in Arterial blood by Pulse oximetry 7 % 7 % [facility] ([facility]) Body temperature 97.6 [degF] 97.6 [degF] [facility] ([facility]) Body weight 292.00 [lb_av] 292.00 [lb_av] MEDEN T ([facility]) Body height 68 [in_i] 68 [in_i] [facility] ([facility]) 5'8" Body mass index (BMI) [Ratio] 44.4 kg/m2 44.4 k g/m2 [facility] ([facility]) ID Date Data Source [id number] 04/03/2021 10:47:01 AM EDT [facility] Name Value Range Interpretation Code Description Data Source(s) WEIGHT RECORDED 300.30 pounds 300.30 pounds [facility] Height 68 Inches 068 Inches [facility] Patient Treatment Plan of Care Planned Activity Planned Date Details Description Data Source (s) Hydroxyzine Hydrochloride 25 MG Oral Tablet 07/22/2021 12:00:00 AM EDT eCW1 ([facility]) Hydroxyzine Hydrochloride 25 MG Oral Tablet 07/22/2021 12:00:00 AM EDT eCW1 ([facility]) Hydroxyzine Hydrochloride 25 MG Oral Tablet 07/22/2021 12:00:00 AM EDT eCW1 ([facility]) Hydroxyzine Hydrochloride 25 MG Oral Tablet 07/22/2021 12:00:00 AM EDT eCW1 ([facility]) Hydroxyzine Hydrochloride 25 MG Oral Tablet 07/22/2021 12:00:00 AM EDT eCW1 ([facility]) Hydroxyzine Hydrochloride 25 MG Oral Tablet 07/22/2021 12:00:00 AM EDT eCW1 ([facility]) Betamethasone 0.5 MG/ML Topical Cream 06/28/2021 12:00:00 AM EDT eCW1 ([facility]) Betamethasone 0.5 MG/ML Topical Cream 06/28/2021 12:00:00 AM EDT eCW1 ([facility]) Betamethasone 0.5 MG/ML Topical Cream 06/28/2021 12:00:00 AM EDT eCW1 ([facility]) Betamethasone 0.5 MG/ML Topical Cream 06/28/2021 12:00:00 AM EDT eCW1 ([facility]) Betamethasone 0.5 MG/ML Topical Cream 06/28/2021 12:00:00 AM EDT eCW1 ([facility]) Triamcinolone Acetonide 1 MG/ML Topical Cream 05/16/2021 12:00:00 A M EDT eCW1 ([facility]) Triamcinolone Acetonide 1 MG/ML Topical Cream 05/16/2021 12:00:00 A M EDT eCW1 ([facility]) Triamcinolone Acetonide 1 MG/ML Topical Cream 05/16/2021 12:00:00 A M EDT eCW1 ([facility]) Triamcinolone Acetonide 1 MG/ML Topical Cream 05/16/2021 12:00:00 A M EDT eCW1 ([facility]) Triamcinolone Acetonide 1 MG/ML Topical Cream 05/16/2021 12:00:00 A M EDT eCW1 ([facility]) Ondansetron 8 MG Oral Tablet 05/15/2021 12:00:00 AM EDT eCW1 ([facility]) tramadol hydrochloride 50 MG Oral Tablet 04/17/2021 12:00:00 AM EDT [facility] topiramate 50 MG Oral Tablet 03/26/2021 12:00:00 AM EDT [facility] Hydrocortisone 10 MG/ML / Neomycin 3.5 M G/ML / Polymyxin B 41648 UNT/ML Otic Suspension 03/18/2021 12:00:00 AM EDT [facility] Hydrocortisone 10 MG/ML / Neomycin 3.5 M G/ML / Polymyxin B 77619 UNT/ML Otic Suspension 03/18/2021 12:00:00 AM EDT eCW1 ([facility]) Hydrocortisone 10 MG/ML / Neomycin 3.5 M G/ML / Polymyxin B 67772 UNT/ML Otic Suspension 03/18/2021 12:00:00 AM EDT eCW1 ([facility]) Hydrocortisone 10 MG/ML / Neomycin 3.5 M G/ML / Polymyxin B 15734 UNT/ML Otic Suspension 03/18/2021 12:00:00 AM EDT eCW1 ([facility]) Hydrocortisone 10 MG/ML / Neomycin 3.5 M G/ML / Polymyxin B 23430 UNT/ML Otic Suspension 03/18/2021 12:00:00 AM EDT eCW1 ([facility]) POLYETHYLENE GLYCOL 3350 142 MG/ML Oral Solution 03/15/2021 12:00:0 0 AM EDT [facility] Docusate Sodium 100 MG Oral Capsule [Colace] 03/15/2021 12:00:00 AM EDT eCW1 ([facility]) POLYETHYLENE GLYCOL 3350 142 MG/ML Oral Solution [Carlene lax] 03/15/2021 12:00:00 AM EDT eCW1 ([facility]) Docusate Sodium 100 MG Oral Capsule [Colace] 03/15/2021 12:00:00 AM EDT eCW1 ([facility]) POLYETHYLENE GLYCOL 3350 142 MG/ML Oral Solution [Carlene lax] 03/15/2021 12:00:00 AM EDT eCW1 ([facility]) Docusate Sodium 100 MG Oral Capsule [Colace] 03/15/2021 12:00:00 AM EDT eCW1 ([facility]) POLYETHYLENE GLYCOL 3350 142 MG/ML Oral Solution [Carlene lax] 03/15/2021 12:00:00 AM EDT eCW1 ([facility]) Docusate Sodium 100 MG Oral Capsule [Colace] 03/15/2021 12:00:00 AM EDT eCW1 ([facility]) POLYETHYLENE GLYCOL 3350 142 MG/ML Oral Solution [Carlene lax] 03/15/2021 12:00:00 AM EDT eCW1 ([facility]) Bisacodyl 5 MG Delayed Release Oral Tablet 03/02/2021 12:00:00 AM E DT [facility] Metoprolol Tartrate 25 MG Oral Tablet 02/26/2021 12:00:00 AM EDT [facility] Clobetasol Propionate 0.5 MG/ML Topical Cream 01/25/2021 12:00:00 A M EDT eCW1 ([facility]) Clobetasol Propionate 0.5 MG/ML Topical Cream 01/25/2021 12:00:00 A M EDT eCW1 ([facility]) Fluocinolone Acetonide 0.1 MG/ML Otic Solution [Jeremy ic] 08/07/2020 12:00:00 AM EST eCW1 ([facility]) apixaban 5 MG Oral Tablet [Eliquis] 05/15/2020 12:00:00 AM EDT [facility] Mupirocin 0.02 MG/MG Topical Ointment 04/12/2020 12:00:00 AM EDT [facility] Levothyroxine Sodium 0.075 MG Oral Tablet 09/19/2019 12:00:00 AM ES T [facility] Hydrocortisone 10 MG/ML Topical Cream [facility] Acetaminophen 500 MG Oral Tablet [facility] ammonium lactate 120 MG/ML Topical Lotion [facility] Aspirin 325 MG Delayed Release Oral Tablet [facility] Polyvinyl Alcohol 0.014 ML/ML Ophthalmic Solution [facility]
--- OUTSIDE RECORDS SUMMARY | 2021-08-10 15:23 | CCD ---
Author Author [facility] Address Unknown Phone Unavailable Care Team Providers Care Change Consultant Name Role Phone Lashonda Pond, PA-C Unavailable Unavailabl e FishLashonda, PA-C Unavailable Unavailabl e FishLashonda, PA-C Unavailable Unavailabl e FishLashonda, PA-C Unavailable Unavailabl e Lashonda Pond, PA-C Unavailable Unavailabl e FishLashonda, PA-C Unavailable Unavailabl e Lashonda Pond, PA-C Unavailable Unavailabl e FishLashonda, PA-C Unavailable Unavailabl e FishLashonda, PA-C Unavailable Unavailabl e FishLashonda, PA-C Unavailable Unavailabl e Fish, [facility], PA-C Unavailable Unavailabl e Fish, [facility], PA-C Unavailable Unavailabl e Fish, [facility], PA-C Unavailable Unavailabl e Fish, [facility], PA-C Unavailable Unavailabl e Fish, [facility], PA-C Unavailable Unavailabl e Fish, [facility], PA-C Unavailable Unavailabl e Fish, [facility], PA-C Unavailable Unavailabl e Fish, [facility], PA-C Unavailable Unavailabl e Fish, [facility], PA-C Unavailable Unavailabl e Fish, [facility], PA-C Unavailable Unavailabl e Fish, [facility], PA-C Unavailable Unavailabl e Fish, [facility], PA-C Unavailable Unavailabl e Fish, [facility], PA-C Unavailable Unavailabl e Fish, [facility], PA-C Unavailable Unavailabl e Fish, [facility], PA-C Unavailable Unavailabl e Fish, [facility], PA-C Unavailable Unavailabl e Fish, [facility], PA-C Unavailable Unavailabl e Fish, [facility], PA-C Unavailable Unavailabl e Fish, [facility], PA-C Unavailable Unavailabl e Fish, [facility], PA-C Unavailable Unavailabl e Fish, [facility], PA-C Unavailable Unavailabl e Fish, [facility], PA-C Unavailable Unavailabl e Fish, [facility], PA-C Unavailable Unavailabl e Fish, [facility], PA-C Unavailable Unavailabl e Fish, [facility], PA-C Unavailable Unavailabl e Fish, [facility], PA-C Unavailable Unavailabl e HAVEN H NICOLE TELEPRINTER Unavailable Unavailable HAVEN, H NICOLE TELEPRINTER Unavailable Unavailable HAVEN, H NICOLE TELEPRINTER Unavailable Unavailable HAVEN, H NICOLE TELEPRINTER Unavailable Unavailable OROURKE, H NICOLE TELEPRINTER Unavailable Unavailable OROURKE, H NICOLE TELEPRINTER Unavailable Unavailable OROURKE, H NICOEL TELEPRINTER Unavailable Unavailable OROURKE, H NICOLE TELEPRINTER Unavailable Unavailable OROURKE, H NICOLE TELEPRINTER Unavailable Unavailable OROURKE, H NICOLE TELEPRINTER Unavailable Unavailable OROURKE, H NICOLE TELEPRINTER Unavailable Unavailable OROURKE, H NICOLE TELEPRINTER Unavailable Unavailable OROURKE, H NICOLE TELEPRINTER Unavailable Unavailable OROURKE, H NICOLE TELEPRINTER Unavailable Unavailable OROURKE, H NICOLE TELEPRINTER Unavailable Unavailable OROURKE, H NICOLE TELEPRINTER Unavailable Unavailable OROURKE, H NICOLE TELEPRINTER Unavailable Unavailable OROURKE, H NICOLE TELEPRINTER Unavailable Unavailable OROURKE, H NICOLE TELEPRINTER Unavailable Unavailable OROURKE, H NICOLE TELEPRINTER Unavailable Unavailable OROURKE, H NICOLE TELEPRINTER Unavailable Unavailable OROURKE, H NICOLE TELEPRINTER Unavailable Unavailable OROURKE, H NICOLE TELEPRINTER Unavailable Unavailable OROURKE, H NICOLE TELEPRINTER Unavailable Unavailable OROURKE, H NICOLE TELEPRINTER Unavailable Unavailable OROURKE, H NICOLE TELEPRINTER Unavailable Unavailable OROURKE, H NICOLE TELEPRINTER Unavailable Unavailable OROURKE, H NICOLE TELEPRINTER Unavailable Unavailable OROURKE, H NICOLE TELEPRINTER Unavailable Unavailable OROURKE, H NICOLE TELEPRINTER Unavailable Unavailable OROURKE, H NICOLE TELEPRINTER Unavailable Unavailable OROURKE, H NICOLE TELEPRINTER Unavailable Unavailable OROURKE, H NICOLE TELEPRINTER Unavailable Unavailable OROURKE, H NICOLE TELEPRINTER Unavailable Unavailable OROURKE, H NICOLE TELEPRINTER Unavailable Unavailable OROURKE, H NICOLE TELEPRINTER Unavailable Unavailable OROURKE, H NICOLE TELEPRINTER Unavailable Unavailable OROURKE, H NICOLE TELEPRINTER Unavailable Unavailable OROURKE, H NICOLE TELEPRINTER Unavailable Unavailable OROURKE, H NICOLE TELEPRINTER Unavailable Unavailable OROURKE, H NICOLE TELEPRINTER Unavailable Unavailable OROURKE, H NICOLE TELEPRINTER Unavailable Unavailable OROURKE, H NICOLE TELEPRINTER Unavailable Unavailable OROURKE, H NICOLE TELEPRINTER Unavailable Unavailable OROURKE, H NICOLE TELEPRINTER Unavailable Unavailable OROURKE, H NICOLE TELEPRINTER Unavailable Unavailable OROURKE, H NICOLE TELEPRINTER Unavailable Unavailable OROURKE, H NICOLE TELEPRINTER Unavailable Unavailable OROURKE, H NICOLE TELEPRINTER Unavailable Unavailable OROURKE, H NICOLE TELEPRINTER Unavailable Unavailable OROURKE, H NICOLE TELEPRINTER Unavailable Unavailable OROURKE, H NICOLE TELEPRINTER Unavailable Unavailable OROURKE, H NICOLE TELEPRINTER Unavailable Unavailable OROURKE, H NICOLE TELEPRINTER Unavailable Unavailable OROURKE, H NICOLE TELEPRINTER Unavailable Unavailable OROURKE, H NICOLE TELEPRINTER Unavailable Unavailable OROURKE, H NICOLE TELEPRINTER Unavailable Unavailable OROURKE, H NICLOE TELEPRINTER Unavailable Unavailable OROURKE, H NICOLE TELEPRINTER Unavailable Unavailable OROURKE, H NICOLE TELEPRINTER Unavailable Unavailable OROURKE, H NICOLE TELEPRINTER Unavailable Unavailable OROURKE, H NICOLE TELEPRINTER Unavailable Unavailable OROURKE, H NICOLE TELEPRINTER Unavailable Unavailable OROURKE, H NICOLE TELEPRINTER Unavailable Unavailable OROURKE, H NICOLE TELEPRINTER Unavailable Unavailable OROURKE, H NICOLE TELEPRINTER Unavailable Unavailable OROURKE, H NICOLE TELEPRINTER Unavailable Unavailable OROURKE, H NICOLE TELEPRINTER Unavailable Unavailable OROURKE, H NICOLE TELEPRINTER Unavailable Unavailable OROURKE, H NICOLE TELEPRINTER Unavailable Unavailable OROURKE, H NICOLE TELEPRINTER Unavailable Unavailable OROURKE, H NICOLE TELEPRINTER Unavailable Unavailable OROURKE, H NICOLE TELEPRINTER Unavailable Unavailable OROURKE, H NICOLE TELEPRINTER Unavailable Unavailable OROURKE, H NICOLE TELEPRINTER Unavailable Unavailable OROURKE, H NICOLE TELEPRINTER Unavailable Unavailable OROURKE, H NICOLE TELEPRINTER Unavailable Unavailable OROURKE, H NICOLE TELEPRINTER Unavailable Unavailable OROURKE, H NICOLE TELEPRINTER Unavailable Unavailable OROURKE, H NICOLE TELEPRINTER Unavailable Unavailable OROURKE, H NICOLE TELEPRINTER Unavailable Unavailable OROURKE, H NICOLE TELEPRINTER Unavailable Unavailable OROURKE, H NICOLE TELEPRINTER Unavailable Unavailable OROURKE, H NICOLE TELEPRINTER Unavailable Unavailable OROURKE, H NICOLE TELEPRINTER Unavailable Unavailable OROURKE, H NICOLE TELEPRINTER Unavailable Unavailable OROURKE, H NICOLE TELEPRINTER Unavailable Unavailable OROURKE, H NICOLE TELEPRINTER Unavailable Unavailable OROURKE, H NICOLE TELEPRINTER Unavailable Unavailable OROURKE, H NICOLE TELEPRINTER Unavailable Unavailable OROURKE, H NICOLE TELEPRINTER Unavailable Unavailable OROURKE, H NICOLE TELEPRINTER Unavailable Unavailable OROURKE, H NICOLE TELEPRINTER Unavailable Unavailable OROURKE, H NICOLE TELEPRINTER Unavailable Unavailable OROURKE, H NICOLE TELEPRINTER Unavailable Unavailable OROURKE, H NICOLE TELEPRINTER Unavailable Unavailable OROURKE, H NICOLE TELEPRINTER Unavailable Unavailable OROURKE, H NICOLE TELEPRINTER Unavailable Unavailable OROURKE, H NICOLE TELEPRINTER Unavailable Unavailable OROURKE, H NICOLE TELEPRINTER Unavailable Unavailable OROURKE, H NICOLE TELEPRINTER Unavailable Unavailable OROURKE, H NICOLE TELEPRINTER Unavailable Unavailable OROURKE, H NICOLE TELEPRINTER Unavailable Unavailable OROURKE, H NICOLE TELEPRINTER Unavailable Unavailable OROURKE, H NICOLE TELEPRINTER Unavailable Unavailable OROURKE, H NICOLE TELEPRINTER Unavailable Unavailable OROURKE, H NICOLE TELEPRINTER Unavailable Unavailable OROURKE, H NICOLE TELEPRINTER Unavailable Unavailable OROURKE, H NICOLE TELEPRINTER Unavailable Unavailable OROURKE, H NICOLE TELEPRINTER Unavailable Unavailable OROURKE, H NICOLE TELEPRINTER Unavailable Unavailable OROURKE, H NICOLE TELEPRINTER Unavailable Unavailable Marely IRIZARRY DPM Unavailable Unavailable Marely IRIZARRY DPM Unavailable Unavailable Marely IRIZARRY DPM Unavailable Unavailable Marely IRIZARRY DPM Unavailable Unavailable Marely IRIZARRY DPM Unavailable Unavailable Marely IRIZARRY DPM Unavailable Unavailable Marely IRIZARRY DPM Unavailable Unavailable Marely IRIZARRY DPM Unavailable Unavailable Marely IRIZARRY DPM Unavailable Unavailable Marely IRIZARRY DPM Unavailable Unavailable Marely IRZIARRY DPM Unavailable Unavailable Marley IRIZARRY DPM Unavailable Unavailable Marely IRIZARRY DPM [...] Unavailable Unavailable Natividad BEGUM MD Unavailable Unavailable Natviidad BEGUM MD Unavailable Unavailable Natividad BEGUM MD [...] Unavailable KRISTIN, L YOHANA MD Unavailable Unavailable KRSITIN, L YOHANA MD Unavailable Unavailable KRISTIN, L [...] Unavailable KRISTIN, L YOHANA MD Unavailable Unavailable [place], A Jerrica BAND SPLICER Unavailable Unavailable [place], A Jerrica BAND SPLICER Unavailable Unavailable [place], A Jerrica BAND SPLICER Unavailable Unavailable [place], A Jerrica BAND SPLICER Unavailable Unavailable Juanita Falanga, A Jerrica BAND SPLICER Unavailable Unavailable Juanita Falanga, A Jerrica BAND SPLICER Unavailable Unavailable Juanita Falanga, A Jerrica BAND SPLICER Unavailable Unavailable [place], A Jerrica BAND SPLICER Unavailable Unavailable [place], A Jerrica BAND SPLICER Unavailable Unavailable Juanita Falanga, A Jerrica BAND SPLICER Unavailable Unavailable Juanita Falanga, A Jerrica BAND SPLICER Unavailable Unavailable [place], A Jerrica BAND SPLICER Unavailable Unavailable [place], A Jerrica BAND SPLICER Unavailable Unavailable [place], A Jerrica BAND SPLICER Unavailable Unavailable [place], A Jerrica BAND SPLICER Unavailable Unavailable [place], A Jerrica BAND SPLICER Unavailable Unavailable Juanita Falanga, A Jerrica BAND SPLICER Unavailable Unavailable Juanita Falanga, A Jerrica BAND SPLICER Unavailable Unavailable Juanita Falanga, A Jerrica BAND SPLICER Unavailable Unavailable Juanita Falanga, A Jerrica BAND SPLICER Unavailable Unavailable Juanita Falanga, A Jerrica BAND SPLICER Unavailable Unavailable [place], A Jerrica BAND SPLICER Unavailable Unavailable [place], A Jerrica BAND SPLICER Unavailable Unavailable Juanita Falanga, A Jerrica BAND SPLICER Unavailable Unavailable Juanita Falanga, A Jerrica BAND SPLICER Unavailable Unavailable [place], A Jerrica BAND SPLICER Unavailable Unavailable [place], A Jerrica BAND SPLICER Unavailable Unavailable Juanita Faldannya, A Jerrica BAND SPLICER Unavailable Unavailable [place], A Jerrica BAND SPLICER Unavailable Unavailable ANNIE, YVETTE SAVAGE Unavailable Unavailable [...] is protected by Article 27-F of the [place] [facility] Public Health law. If you continue you may have access to information: Regarding HIV / AIDS; Provided by facilities licensed or operated by the [place] [facility] Office of Mental Health; or Provided by the [facility] Office for People With Developmental Disabilities. If such information is present, then the following [facility] mandated warning applies: This information has been [...] law may result in a fine or long term sentence or both. A general authorization for the release of medical or other information is NOT sufficient authorization for further disc losure. Allergies and Adverse Reactions Type Description Substance Reaction Status Data Source(s ) Propensity to adverse reactions LATEX LATEX [facility] Propensity to adverse reactions ADHESIVE ADHESIVE [facility] Drug allergy CODEINE CODEINE [facility] Family History Family Member Name Family Member Gender Family Member Status Date o f Status Description Data Source(s) Unknown Unknown Problem MEDENT ([facility]) Encounters Encounter Providers Location Date Indications Data Source(s ) Unknown [address] [facility] [place] [id number] 07/30/2021 12:00:00 AM EDT eCW1 ([facility]) Unknown [address] [facility] Y [address] 07/29/2021 12:00:00 AM EDT eCW1 ([facility]) Unknown [address] [facility] Y [address] 07/23/2021 12:00:00 AM EDT eCW1 ([facility]) Outpatient [address] [facility] [id number] 07/22/2021 12:00:00 AM EDT eCW1 ([facility]) Unknown [address] [facility] [place] [address] 07/22/2021 12:00:00 AM EDT eCW1 ([facility]) OFFICE OUTPATIENT VISIT 15 MINUTES Attender: Aidee GANT PA-C Physical Therapy 07/19/2021 01:00:00 PM EDT MEDENT ([facility]) Unknown [address] [facility] [place] [address] 07/15/2021 12:00:00 AM EDT eCW1 ([facility]) Unknown [address] [facility], [place] [address] 07/12/2021 12:00:00 AM EDT eCW1 ([facility]) Unknown [address] [facility] [place] [address] 07/04/2021 12:00:00 AM EDT eCW1 ([facility]) OFFICE OUTPATIENT VISIT 15 MINUTES Attender: CATRACHITA Smart [facility] Therapy 07/03/2021 01:45:00 PM EDT MEDENT ([facility]) Unknown [address] [facility] [place] [address] 07/03/2021 12:00:00 AM EDT eCW1 ([facility]) Outpatient Attender: ITZEL IRIZARRY [facility] Office 06/06 10:45:00 AM EDT MEDENT ([facility] Unknown [address] [facility] Y [address] 06/28/2021 12:00:00 AM EDT eCW1 ([facility]) Outpatient [address] [facility] Y [address] 06/28/2021 12:00:00 AM EDT eCW1 ([facility]) Outpatient Attender: Aidee GANT PA-C Physical Therapy 06/21/2021 03:30:00 PM EDT MEDENT ([facility]) Unknown [address] [facility] [place] [address] 06/21/2021 12:00:00 AM EDT eCW1 ([facility]) Unknown [address] [facility] [place] [address] 06/17/2021 12:00:00 AM EDT eCW1 ([facility]) Outpatient [address] [facility] Y [address] 06/13/2021 12:00:00 AM EDT eCW1 ([facility]) Unknown [address] [facility] [place] [address] 06/07/2021 12:00:00 AM EDT eCW1 ([facility]) Outpatient Attender: ITZEL IRIZARRY [facility] Office 05/07 11:00:00 AM EDT MEDENT ([facility] Outpatient Referrer: YVETTE VALENCIA MD SJP.[email or web address] 07:40:13 AM EDT - 05/31/2021 11:52:12 AM EDT [facility] Unknown [address] [facility] [place] [address] 05/27/2021 12:00:00 AM EDT eCW1 ([facility]) Outpatient Attender: Haider Purcell/Giovanni/Rodri/Marely gray 05/23/2021 01:15:00 PM EDT MEDENT ([facility]) OFFICE OUTPATIENT VISIT 15 MINUTES Attender: Marielena LANDRY Physical Therapy 05/21/2021 02:45:00 PM EDT MEDENT ([facility]) Unknown [address] [facility] [place] [address] 05/17/2021 12:00:00 AM EDT eCW1 ([facility]) Outpatient [address] [facility] [place] [address] 05/16/2021 12:00:00 AM EDT eCW1 ([facility]) Unknown [address] [facility] [place] [address] 05/16/2021 12:00:00 AM EDT eCW1 ([facility]) Unknown [address] [facility] [place] [address] 05/15/2021 12:00:00 AM EDT eCW1 ([facility]) Unknown [address] [facility] [place] [address] 05/08/2021 12:00:00 AM EDT eCW1 ([facility]) Unknown [address] [facility] [id number] 05/08/2021 12:00:00 AM EDT eCW1 ([facility]) Unknown [address] [facility] [address] 05/08/2021 12:00:00 AM EDT eCW1 ([facility]) Outpatient Attender: ITZEL IRIZARRY [facility] Office 04/05 10:30:00 AM EDT MEDENT ([facility] Unknown [address] [facility] [id number] 04/29/2021 12:00:00 AM EDT eCW1 ([facility]) Outpatient [address] [facility] [id number] 04/25/2021 12:00:00 AM EDT eCW1 ([facility]) Outpatient Attender: YVETTE AUGUSTEeferrer: NICOLE OROURKE NP SJP .[email or web address] 04/19/2021 12:58:45 PM EDT - 04/19/2021 01:45:40 PM EDT [facility] Outpatient Attender: ITZEL IRIZARRY [facility] Office 04/04 11:15:00 AM EDT MEDENT ([facility] Unknown [address] [facility] [id number] 04/17/2021 12:00:00 AM EDT eCW1 ([facility]) Unknown [address] [facility] [id number] 04/15/2021 12:00:00 AM EDT eCW1 ([facility]) Outpatient [address] [facility] [id number] 04/15/2021 12:00:00 AM EDT eCW1 ([facility]) Unknown [address] [facility] [address] 04/11/2021 12:00:00 AM EDT eCW1 ([facility]) Outpatient [address] [facility] Y [id number] 04/10/2021 12:00:00 AM EDT eCW1 ([facility]) Unknown [address] [facility] [address] 04/04/2021 12:00:00 AM EDT eCW1 ([facility]) Outpatient Attender: Jerrica almanzar FNPAttender: KRISTAN SWAIN MDConsultant: NICOLE OROURKE TELEPRINTER 03/29/2021 01:56:00 PM EDT - 03/30/2021 02:35:00 PM EDT [facility] Patient discharged. Unknown [address] [facility] [id number] 03/29/2021 12:00:00 AM EDT eCW1 ([facility]) Emergency Attender: YOHANA CASON MDConsultant: NICOLE Kirkpatrick P 03/22/2021 04:02:00 PM EDT - 03/22/2021 06:26:00 PM EDT [facility] Patient discharged. Outpatient Attender: ITZEL IRIZARRY [facility] Office 03/05 01:00:00 PM EDT MEDENT ([facility] Unknown [address] [facility] [id number] 03/18/2021 12:00:00 AM EDT eCW1 ([facility]) (TCM) Transition of Care Visit [address] [place] [address] 03/15/2021 12:00:00 AM EDT eCW1 ([facility]) Outpatient Attender: ITZEL IRIZARRY [facility] Office 05/2021 10:30:00 AM EDT MEDENT ([facility] Unknown [address] [facility] [id number] 03/11/2021 12:00:00 AM EDT eCW1 ([facility]) Unknown [address] [facility] [place] [address] 03/07/2021 12:00:00 AM EDT eCW1 ([facility]) Outpatient Attender: ITZEL IRIZARRY [facility] Office 02/03 10:30:00 AM EDT MEDENT ([facility] Outpatient Attender: Richard Pond MDConsultant: NICOLE OROURKE NP 02/25/2021 12:08:27 PM EDT [facility] Unknown [address] [facility] [address] 02/25/2021 12:00:00 AM EDT eCW1 ([facility] Outpatient Attender: Marielena LANDRY Physical Therapy 03:45:00 PM EDT MEDENT ([facility]) Unknown [address] [facility], [facility] [address] 02/14/2021 12:00:00 AM EDT eCW1 ([facility]) Unknown [address] [facility] [place] [address] 02/14/2021 12:00:00 AM EDT eCW1 ([facility]) Outpatient Attender: ITZEL IRIZARRY [facility] Office 02/02 11:00:00 AM EDT MED[facility] ([facility] Unknown [address] [facility] Y [address] 02/12/2021 12:00:00 AM EDT eCW1 ([facility]) Unknown [address] [facility] Y [address] 02/12/2021 12:00:00 AM EDT eCW1 ([facility]) Unknown [address] [facility] [place] [address] 02/11/2021 12:00:00 AM EDT eCW1 ([facility]) Outpatient Attender: ITZEL IRIZARRY [facility] Office 01/05 11:15:00 AM EDT MEDENT ([facility] Unknown [address] [facility] Y [address] 01/28/2021 12:00:00 AM EDT eCW1 ([facility]) Outpatient [address] [facility] Y [address] 01/25/2021 12:00:00 AM EDT eCW1 ([facility]) Unknown [address] [facility] Y [address] 01/24/2021 12:00:00 AM EDT eCW1 ([facility]) Unknown [address] [facility] Y [address] 01/21/2021 12:00:00 AM EDT eCW1 ([facility]) Unknown [address] [facility] Y [address] 01/21/2021 12:00:00 AM EDT eCW1 ([facility]) Unknown [address] [facility] N Y [address] 01/15/2021 12:00:00 AM EDT eCW1 ([facility]) Unknown [address] [facility] Y [address] 01/08/2021 12:00:00 AM EDT eCW1 ([facility]) Outpatient Attender: JEFFREY Purcell/Giovanni/Danny stuart/Reinmarifer 12/26/2020 11:30:00 AM EDT MEDENT ([facility] Unknown [address] [facility] Y [address] 12/26/2020 12:00:00 AM EDT eCW1 ([facility]) Unknown [address] [facility] Y [address] 12/25/2020 12:00:00 AM EDT eCW1 ([facility]) Office Visit Attender: Marielena LANDRY Physical Therapy 03:45:00 PM EDT MEDENT ([facility]) Unknown [address] [facility] [place] [address] 12/12/2020 12:00:00 AM EST eCW1 ([facility]) Unknown [address] [facility] Y [address] 12/12/2020 12:00:00 AM EST eCW1 ([facility]) Outpatient [address] [facility] Y [address] 12/11/2020 12:00:00 AM EST [facility]CW1 [facility] Unknown [address] [facility] Y [address] 12/11/2020 12:00:00 AM EST eCW1 ([facility]) Outpatient [address] [facility] [address] 12/10/2020 12:00:00 AM EST eCW1 ([facility] Outpatient Attender: ITZEL IRIZARRY [facility] Office 02/2021 02:15:00 PM EST MEDENT ([facility] Unknown [address] [facility] [place] [address] 12/07/2020 12:00:00 AM EST eCW1 ([facility]) Unknown [address] [facility] Y [address] 12/07/2020 12:00:00 AM EST eCW1 ([facility]) Unknown [address] [facility] [address] 12/06/2020 12:00:00 AM EST eCW1 ([facility]) Unknown [address] [facility] [address] 12/05/2020 12:00:00 AM EST eCW1 ([facility]) Unknown [address] [facility] [address] 12/03/2020 12:00:00 AM EST eCW1 ([facility] Unknown [address] [facility] [address] 11/29/2020 12:00:00 AM EST [facility]CW[facility] Unknown [address] [facility] [place] [address] 11/27/2020 12:00:00 AM EST eCW1 ([facility]) Unknown [address] [facility], [place] [address] 11/22/2020 12:00:00 AM EST eCW1 ([facility]) Outpatient [address] [facility] [place] [address] 11/20/2020 12:00:00 AM EST eCW1 ([facility]) Outpatient Attender: TANESHA crow 11/17/2020 08:35:00 AM EST MEDENT ([facility]) Unknown [address] [facility] [place] [address] 11/09/2020 12:00:00 AM EST eCW1 ([facility]) Outpatient Attender: ITZEL IRIZARRY [facility] Office 11/2020 01:30:00 PM EST MEDENT ([facility] Unknown [address] [facility] [place] [address] 10/30/2020 12:00:00 AM EST eCW1 ([facility]) Outpatient [address] [facility] [place] [address] 10/09/2020 12:00:00 AM EST eCW1 ([facility]) Unknown [address] [facility] [place] [address] 10/02/2020 12:00:00 AM EST eCW1 ([facility]) Unknown [address] [facility] [place] [address] 09/24/2020 12:00:00 AM EST eCW1 ([facility]) Outpatient [address] [facility] [place] [address] 09/24/2020 12:00:00 AM EST eCW1 ([facility]) Unknown [address] [facility] [place] [address] 09/21/2020 12:00:00 AM EST eCW1 ([facility]) Unknown [address] [facility] [place] [address] 09/21/2020 12:00:00 AM EST eCW1 ([facility]) Unknown [address] [facility] [place] [address] 09/11/2020 12:00:00 AM EST eCW1 ([facility]) Unknown [address] [facility] [place] [address] 09/10/2020 12:00:00 AM EST eCW1 ([facility]) Unknown [address] [facility] [place] [address] 09/06/2020 12:00:00 AM EST eCW1 ([facility]) Unknown [address] [facility] [address] 09/06/2020 12:00:00 AM EST eCW1 ([facility]) Office Visit Attender: ITZEL IRIZARRY [facility] Office 11/2019 09:30:00 AM EST MEDENT ([facility] Unknown [address] [facility], [place] [address] 09/03/2020 12:00:00 AM EST eCW1 ([facility]) Unknown [address] [facility] [place] [address] 08/23/2020 12:00:00 AM EST eCW1 ([facility]) Unknown [address] [facility] [place] [address] 08/20/2020 12:00:00 AM EST eCW1 ([facility]) Office Visit Attender: ITZEL IRIZARRY [facility] Office 08/05 01:30:00 PM EST MEDENT ([facility] Unknown [address] [facility] [address] 08/13/2020 12:00:00 AM EST eCW1 ([facility]) Unknown [address] [facility] [id number] 08/09/2020 12:00:00 AM EST eCW1 ([facility]) (WND STRALINA) Stretcher Required Patients [address] [place] [address] 08/09/2020 12:00:00 AM EST eCW1 ([facility]) Unknown [address] [facility] [id number] 08/08/2020 12:00:00 AM EST eCW1 ([facility]) Outpatient [address] [facility] [id number] 08/08/2020 12:00:00 AM EST eCW1 ([facility]) Unknown [address] [facility] [id number] 08/08/2020 12:00:00 AM EST eCW1 ([facility]) Outpatient [address] [facility] [id number] 08/07/2020 12:00:00 AM EST eCW1 ([facility]) Unknown [address] [facility] [id number] 08/07/2020 12:00:00 AM EST eCW1 ([facility]) Office Visit Attender: ITZEL IRIZARRY [facility] Office 11/2019 02:00:00 PM EST MEDENT ([facility] Unknown [address] [facility] [id number] 08/06/2020 12:00:00 AM EST eCW1 ([facility]) (WND [facility]) Stretcher Required Patients [address] [place] [address] 07/26/2020 12:00:00 AM EDT eCW1 ([facility]) Office [facility]: [facility] 08:45:00 AM EDT MEDENT ([facility] [place] [address] [facility] [place] [address] 07/17/2020 12:00:00 AM EDT eCW1 ([facility]) Outpatient Attender: TANESHA Segura ry 07/14/2020 11:10:00 AM EDT MEDENT ([facility]) Unknown [address] [facility], [place] [address] 07/10/2020 12:00:00 AM EDT eCW1 ([facility]) Outpatient Attender: YVETTE VALENCIA MDReferrer: YVETTE SANTILLAN .CT-SJP 07/03/2020 11:53:21 AM EDT [facility] Outpatient [email or web address] 06/29/2020 12:00:00 AM EDT [facility] Immunizations Vaccine Date Status Description Data Source(s) COVID-19 dose #2 given elsewhere Unspecified 01/07/2021 03:4 8:00 PM EDT completed eCW1 ([facility]) COVID-19 dose #2 given elsewhere Unspecified 01/07/2021 03:4 8:00 PM EDT completed eCW1 ([facility]) COVID-19 dose #2 given elsewhere Unspecified 01/07/2021 03:4 8:00 PM EDT completed eCW1 ([facility]) COVID-19 dose #2 given elsewhere Unspecified 01/07/2021 03:4 8:00 PM EDT completed eCW1 ([facility]) COVID-19 dose #2 given elsewhere Unspecified 01/07/2021 03:4 8:00 PM EDT completed eCW1 ([facility]) COVID-19 dose #2 given elsewhere Unspecified 01/07/2021 03:4 8:00 PM EDT completed eCW1 ([facility]) COVID-19 dose #2 given elsewhere Unspecified 01/07/2021 03:4 8:00 PM EDT completed eCW1 ([facility]) COVID-19 dose #2 given elsewhere Unspecified 01/07/2021 03:4 8:00 PM EDT completed eCW1 ([facility]) COVID-19 dose #2 given elsewhere Unspecified 01/07/2021 03:4 8:00 PM EDT completed eCW1 ([facility]) COVID-19 dose #2 given elsewhere Unspecified 01/07/2021 03:4 8:00 PM EDT completed eCW1 ([facility]) COVID-19 dose #2 given elsewhere Unspecified 01/07/2021 03:4 8:00 PM EDT completed eCW1 ([facility]) COVID-19 dose #2 given elsewhere Unspecified 01/07/2021 03:4 8:00 PM EDT completed eCW1 ([facility]) COVID-19 dose #2 given elsewhere Unspecified 01/07/2021 03:4 8:00 PM EDT completed eCW1 ([facility]) COVID-19 dose #2 given elsewhere Unspecified 01/07/2021 03:4 8:00 PM EDT completed eCW1 ([facility]) COVID-19 dose #2 given elsewhere Unspecified 01/07/2021 03:4 8:00 PM EDT completed eCW1 ([facility]) COVID-19 dose #2 given elsewhere Unspecified 01/07/2021 03:4 8:00 PM EDT completed eCW1 ([facility]) COVID-19 dose #2 given elsewhere Unspecified 01/07/2021 03:4 8:00 PM EDT completed eCW1 ([facility]) COVID-19 dose #2 given elsewhere Unspecified 01/07/2021 03:4 8:00 PM EDT completed eCW1 ([facility]) COVID-19 dose #2 given elsewhere Unspecified 01/07/2021 03:4 8:00 PM EDT completed eCW1 ([facility]) COVID-19 dose #2 given elsewhere Unspecified 01/07/2021 03:4 8:00 PM EDT completed eCW1 ([facility]) COVID-19 dose #2 given elsewhere Unspecified 01/07/2021 03:4 8:00 PM EDT completed eCW1 ([facility]) COVID-19 dose #2 given elsewhere Unspecified 01/07/2021 03:4 8:00 PM EDT completed eCW1 ([facility]) COVID-19 dose #2 given elsewhere Unspecified 01/07/2021 03:4 8:00 PM EDT completed eCW1 ([facility]) COVID-19 dose #2 given elsewhere Unspecified 01/07/2021 03:4 8:00 PM EDT completed eCW1 ([facility]) COVID-19 dose #2 given elsewhere Unspecified 01/07/2021 03:4 8:00 PM EDT completed eCW1 ([facility]) COVID-19 dose #2 given elsewhere Unspecified 01/07/2021 03:4 8:00 PM EDT completed eCW1 ([facility]) COVID-19 dose #2 given elsewhere Unspecified 01/07/2021 03:4 8:00 PM EDT completed eCW1 ([facility]) COVID-19 dose #2 given elsewhere Unspecified 01/07/2021 03:4 8:00 PM EDT completed eCW1 ([facility]) COVID-19 dose #2 given elsewhere Unspecified 01/07/2021 03:4 8:00 PM EDT completed eCW1 ([facility]) COVID-19 dose #2 given elsewhere Unspecified 01/07/2021 03:4 8:00 PM EDT completed eCW1 ([facility]) COVID-19 dose #2 given elsewhere Unspecified 01/07/2021 03:4 8:00 PM EDT completed eCW1 ([facility]) COVID-19 dose #2 given elsewhere Unspecified 01/07/2021 03:4 8:00 PM EDT completed eCW1 ([facility]) COVID-19 dose #2 given elsewhere Unspecified 01/07/2021 03:4 8:00 PM EDT completed eCW1 ([facility]) COVID-19 dose #2 given elsewhere Unspecified 01/07/2021 03:4 8:00 PM EDT completed eCW1 ([facility]) COVID-19 dose #2 given elsewhere Unspecified 01/07/2021 03:4 8:00 PM EDT completed eCW1 ([facility]) COVID-19 dose #2 given elsewhere Unspecified 01/07/2021 03:4 8:00 PM EDT completed eCW1 ([facility]) COVID-19 dose #2 given elsewhere Unspecified 01/07/2021 03:4 8:00 PM EDT completed eCW1 ([facility]) COVID-19 dose #2 given elsewhere Unspecified 01/07/2021 03:4 8:00 PM EDT completed eCW1 ([facility]) COVID-19 dose #2 given elsewhere Unspecified 01/07/2021 03:4 8:00 PM EDT completed eCW1 ([facility]) COVID-19 dose #2 given elsewhere Unspecified 01/07/2021 03:4 8:00 PM EDT completed eCW1 ([facility]) COVID-19 dose #2 given elsewhere Unspecified 01/07/2021 03:4 8:00 PM EDT completed eCW1 ([facility]) COVID-19 dose #2 given elsewhere Unspecified 01/07/2021 03:4 8:00 PM EDT completed eCW1 ([facility]) COVID-19 dose #2 given elsewhere Unspecified 01/07/2021 03:4 8:00 PM EDT completed eCW1 ([facility]) COVID-19 dose #2 given elsewhere Unspecified 01/07/2021 03:4 8:00 PM EDT completed eCW1 ([facility]) COVID-19 VACCINE Moderna 01/07/2021 12:00:00 AM EDT completed [employer] Vaccine Series Complete: YESThis Data wa s Submitted to [facility] Via [employer]. COVID-19 dose #1 given elsewhere Unspecified 12/11/2020 10:0 8:00 AM EST completed eCW1 ([facility]) COVID-19 dose #1 given elsewhere Unspecified 12/11/2020 10:0 8:00 AM EST completed eCW1 ([facility]) COVID-19 dose #1 given elsewhere Unspecified 12/11/2020 10:0 8:00 AM EST completed eCW1 ([facility]) COVID-19 dose #1 given elsewhere Unspecified 12/11/2020 10:0 8:00 AM EST completed eCW1 ([facility]) COVID-19 dose #1 given elsewhere Unspecified 12/11/2020 10:0 8:00 AM EST completed eCW1 ([facility]) COVID-19 dose #1 given elsewhere Unspecified 12/11/2020 10:0 8:00 AM EST completed eCW1 ([facility]) COVID-19 dose #1 given elsewhere Unspecified 12/11/2020 10:0 8:00 AM EST completed eCW1 ([facility]) COVID-19 dose #1 given elsewhere Unspecified 12/11/2020 10:0 8:00 AM EST completed eCW1 ([facility]) COVID-19 dose #1 given elsewhere Unspecified 12/11/2020 10:0 8:00 AM EST completed eCW1 ([facility]) COVID-19 dose #1 given elsewhere Unspecified 12/11/2020 10:0 8:00 AM EST completed eCW1 ([facility]) COVID-19 dose #1 given elsewhere Unspecified 12/11/2020 10:0 8:00 AM EST completed eCW1 ([facility]) COVID-19 dose #1 given elsewhere Unspecified 12/11/2020 10:0 8:00 AM EST completed eCW1 ([facility]) COVID-19 dose #1 given elsewhere Unspecified 12/11/2020 10:0 8:00 AM EST completed eCW1 ([facility]) COVID-19 dose #1 given elsewhere Unspecified 12/11/2020 10:0 8:00 AM EST completed eCW1 ([facility]) COVID-19 dose #1 given elsewhere Unspecified 12/11/2020 10:0 8:00 AM EST completed eCW1 ([facility]) COVID-19 dose #1 given elsewhere Unspecified 12/11/2020 10:0 8:00 AM EST completed eCW1 ([facility]) COVID-19 dose #1 given elsewhere Unspecified 12/11/2020 10:0 8:00 AM EST completed eCW1 ([facility]) COVID-19 dose #1 given elsewhere Unspecified 12/11/2020 10:0 8:00 AM EST completed eCW1 ([facility]) COVID-19 dose #1 given elsewhere Unspecified 12/11/2020 10:0 8:00 AM EST completed eCW1 ([facility]) COVID-19 dose #1 given elsewhere Unspecified 12/11/2020 10:0 8:00 AM EST completed eCW1 ([facility]) COVID-19 dose #1 given elsewhere Unspecified 12/11/2020 10:0 8:00 AM EST completed eCW1 ([facility]) COVID-19 dose #1 given elsewhere Unspecified 12/11/2020 10:0 8:00 AM EST completed eCW1 ([facility]) COVID-19 dose #1 given elsewhere Unspecified 12/11/2020 10:0 8:00 AM EST completed eCW1 ([facility]) COVID-19 dose #1 given elsewhere Unspecified 12/11/2020 10:0 8:00 AM EST completed eCW1 ([facility]) COVID-19 dose #1 given elsewhere Unspecified 12/11/2020 10:0 8:00 AM EST completed eCW1 ([facility]) COVID-19 dose #1 given elsewhere Unspecified 12/11/2020 10:0 8:00 AM EST completed eCW1 ([facility]) COVID-19 dose #1 given elsewhere Unspecified 12/11/2020 10:0 8:00 AM EST completed eCW1 ([facility]) COVID-19 dose #1 given elsewhere Unspecified 12/11/2020 10:0 8:00 AM EST completed eCW1 ([facility]) COVID-19 dose #1 given elsewhere Unspecified 12/11/2020 10:0 8:00 AM EST completed eCW1 ([facility]) COVID-19 dose #1 given elsewhere Unspecified 12/11/2020 10:0 8:00 AM EST completed eCW1 ([facility]) COVID-19 dose #1 given elsewhere Unspecified 12/11/2020 10:0 8:00 AM EST completed eCW1 ([facility]) COVID-19 dose #1 given elsewhere Unspecified 12/11/2020 10:0 8:00 AM EST completed eCW1 ([facility]) COVID-19 dose #1 given elsewhere Unspecified 12/11/2020 10:0 8:00 AM EST completed eCW1 ([facility]) COVID-19 dose #1 given elsewhere Unspecified 12/11/2020 10:0 8:00 AM EST completed eCW1 ([facility]) COVID-19 dose #1 given elsewhere Unspecified 12/11/2020 10:0 8:00 AM EST completed eCW1 ([facility]) COVID-19 dose #1 given elsewhere Unspecified 12/11/2020 10:0 8:00 AM EST completed eCW1 ([facility]) COVID-19 dose #1 given elsewhere Unspecified 12/11/2020 10:0 8:00 AM EST completed eCW1 ([facility]) COVID-19 dose #1 given elsewhere Unspecified 12/11/2020 10:0 8:00 AM EST completed eCW1 ([facility]) COVID-19 dose #1 given elsewhere Unspecified 12/11/2020 10:0 8:00 AM EST completed eCW1 ([facility]) COVID-19 dose #1 given elsewhere Unspecified 12/11/2020 10:0 8:00 AM EST completed eCW1 ([facility]) COVID-19 dose #1 given elsewhere Unspecified 12/11/2020 10:0 8:00 AM EST completed eCW1 ([facility]) COVID-19 dose #1 given elsewhere Unspecified 12/11/2020 10:0 8:00 AM EST completed eCW1 ([facility]) COVID-19 dose #1 given elsewhere Unspecified 12/11/2020 10:0 8:00 AM EST completed eCW1 ([facility]) COVID-19 dose #1 given elsewhere Unspecified 12/11/2020 10:0 8:00 AM EST completed eCW1 ([facility]) COVID-19 dose #1 given elsewhere Unspecified 12/11/2020 10:0 8:00 AM EST completed eCW1 ([facility]) COVID-19 dose #1 given elsewhere Unspecified 12/11/2020 10:0 8:00 AM EST completed eCW1 ([facility]) COVID-19 dose #1 given elsewhere Unspecified 12/11/2020 10:0 8:00 AM EST completed eCW1 ([facility]) COVID-19 dose #1 given elsewhere Unspecified 12/11/2020 10:0 8:00 AM EST completed eCW1 ([facility]) COVID-19 dose #1 given elsewhere Unspecified 12/11/2020 10:0 8:00 AM EST completed eCW1 ([facility]) COVID-19 dose #1 given elsewhere Unspecified 12/11/2020 10:0 8:00 AM EST completed eCW1 ([facility]) COVID-19 dose #1 given elsewhere Unspecified 12/11/2020 10:0 8:00 AM EST completed eCW1 ([facility]) COVID-19 dose #1 given elsewhere Unspecified 12/11/2020 10:0 8:00 AM EST completed eCW1 ([facility]) COVID-19 dose #1 given elsewhere Unspecified 12/11/2020 10:0 8:00 AM EST completed eCW1 ([facility]) COVID-19 dose #1 given elsewhere Unspecified 12/11/2020 10:0 8:00 AM EST completed eCW1 ([facility]) COVID-19 dose #1 given elsewhere Unspecified 12/11/2020 10:0 8:00 AM EST completed eCW1 ([facility]) COVID-19 dose #1 given elsewhere Unspecified 12/11/2020 10:0 8:00 AM EST completed eCW1 ([facility]) COVID-19 VACCINE Moderna 12/10/2020 12:00:00 AM EST completed [employer] Vaccine Series Complete: NOThis Data was Submitted to [facility] Via [employer]. influenza, recombinant, quadrIvalent,injectable, prese rvative free 11/20/2020 01:35:00 PM EST completed eCW1 ([facility]) influenza, recombinant, quadrIvalent,injectable, prese rvative free 11/20/2020 01:35:00 PM EST completed eCW1 ([facility]) influenza, recombinant, quadrIvalent,injectable, prese rvative free 11/20/2020 01:35:00 PM EST completed eCW1 ([facility]) influenza, recombinant, quadrIvalent,injectable, prese rvative free 11/20/2020 01:35:00 PM EST completed eCW1 ([facility]) influenza, recombinant, quadrIvalent,injectable, prese rvative free 11/20/2020 01:35:00 PM EST completed eCW1 ([facility]) influenza, recombinant, quadrIvalent,injectable, prese rvative free 11/20/2020 01:35:00 PM EST completed eCW1 ([facility]) influenza, recombinant, quadrIvalent,injectable, prese rvative free 11/20/2020 01:35:00 PM EST completed eCW1 ([facility]) influenza, recombinant, quadrIvalent,injectable, prese rvative free 11/20/2020 01:35:00 PM EST completed eCW1 ([facility]) influenza, recombinant, quadrIvalent,injectable, prese rvative free 11/20/2020 01:35:00 PM EST completed eCW1 ([facility]) influenza, recombinant, quadrIvalent,injectable, prese rvative free 11/20/2020 01:35:00 PM EST completed eCW1 ([facility]) influenza, recombinant, quadrIvalent,injectable, prese rvative free 11/20/2020 01:35:00 PM EST completed eCW1 ([facility]) influenza, recombinant, quadrIvalent,injectable, prese rvative free 11/20/2020 01:35:00 PM EST completed eCW1 ([facility]) influenza, recombinant, quadrIvalent,injectable, prese rvative free 11/20/2020 01:35:00 PM EST completed eCW1 ([facility]) influenza, recombinant, quadrIvalent,injectable, prese rvative free 11/20/2020 01:35:00 PM EST completed eCW1 ([facility]) influenza, recombinant, quadrIvalent,injectable, prese rvative free 11/20/2020 01:35:00 PM EST completed eCW1 ([facility]) influenza, recombinant, quadrIvalent,injectable, prese rvative free 11/20/2020 01:35:00 PM EST completed eCW1 ([facility]) influenza, recombinant, quadrIvalent,injectable, prese rvative free 11/20/2020 01:35:00 PM EST completed eCW1 ([facility]) influenza, recombinant, quadrIvalent,injectable, prese rvative free 11/20/2020 01:35:00 PM EST completed eCW1 ([facility]) influenza, recombinant, quadrIvalent,injectable, prese rvative free 11/20/2020 01:35:00 PM EST completed eCW1 ([facility]) influenza, recombinant, quadrIvalent,injectable, prese rvative free 11/20/2020 01:35:00 PM EST completed eCW1 ([facility]) influenza, recombinant, quadrIvalent,injectable, prese rvative free 11/20/2020 01:35:00 PM EST completed eCW1 ([facility]) influenza, recombinant, quadrIvalent,injectable, prese rvative free 11/20/2020 01:35:00 PM EST completed eCW1 ([facility]) influenza, recombinant, quadrIvalent,injectable, prese rvative free 11/20/2020 01:35:00 PM EST completed eCW1 ([facility]) influenza, recombinant, quadrIvalent,injectable, prese rvative free 11/20/2020 01:35:00 PM EST completed eCW1 ([facility]) influenza, recombinant, quadrIvalent,injectable, prese rvative free 11/20/2020 01:35:00 PM EST completed eCW1 ([facility]) influenza, recombinant, quadrIvalent,injectable, prese rvative free 11/20/2020 01:35:00 PM EST completed eCW1 ([facility]) influenza, recombinant, quadrIvalent,injectable, prese rvative free 11/20/2020 01:35:00 PM EST completed eCW1 ([facility]) influenza, recombinant, quadrIvalent,injectable, prese rvative free 11/20/2020 01:35:00 PM EST completed eCW1 ([facility]) influenza, recombinant, quadrIvalent,injectable, prese rvative free 11/20/2020 01:35:00 PM EST completed eCW1 ([facility]) influenza, recombinant, quadrIvalent,injectable, prese rvative free 11/20/2020 01:35:00 PM EST completed eCW1 ([facility]) influenza, recombinant, quadrIvalent,injectable, prese rvative free 11/20/2020 01:35:00 PM EST completed eCW1 ([facility]) influenza, recombinant, quadrIvalent,injectable, prese rvative free 11/20/2020 01:35:00 PM EST completed eCW1 ([facility]) influenza, recombinant, quadrIvalent,injectable, prese rvative free 11/20/2020 01:35:00 PM EST completed eCW1 ([facility]) influenza, recombinant, quadrIvalent,injectable, prese rvative free 11/20/2020 01:35:00 PM EST completed eCW1 ([facility]) influenza, recombinant, quadrIvalent,injectable, prese rvative free 11/20/2020 01:35:00 PM EST completed eCW1 ([facility]) influenza, recombinant, quadrIvalent,injectable, prese rvative free 11/20/2020 01:35:00 PM EST completed eCW1 ([facility]) influenza, recombinant, quadrIvalent,injectable, prese rvative free 11/20/2020 01:35:00 PM EST completed eCW1 ([facility]) influenza, recombinant, quadrIvalent,injectable, prese rvative free 11/20/2020 01:35:00 PM EST completed eCW1 ([facility]) influenza, recombinant, quadrIvalent,injectable, prese rvative free 11/20/2020 01:35:00 PM EST completed eCW1 ([facility]) influenza, recombinant, quadrIvalent,injectable, prese rvative free 11/20/2020 01:35:00 PM EST completed eCW1 ([facility]) influenza, recombinant, quadrIvalent,injectable, prese rvative free 11/20/2020 01:35:00 PM EST completed eCW1 ([facility]) influenza, recombinant, quadrIvalent,injectable, prese rvative free 11/20/2020 01:35:00 PM EST completed eCW1 ([facility]) influenza, recombinant, quadrIvalent,injectable, prese rvative free 11/20/2020 01:35:00 PM EST completed eCW1 ([facility]) influenza, recombinant, quadrIvalent,injectable, prese rvative free 11/20/2020 01:35:00 PM EST completed eCW1 ([facility]) influenza, recombinant, quadrIvalent,injectable, prese rvative free 11/20/2020 01:35:00 PM EST completed eCW1 ([facility]) influenza, recombinant, quadrIvalent,injectable, prese rvative free 11/20/2020 01:35:00 PM EST completed eCW1 ([facility]) influenza, recombinant, quadrIvalent,injectable, prese rvative free 11/20/2020 01:35:00 PM EST completed eCW1 ([facility]) influenza, recombinant, quadrIvalent,injectable, prese rvative free 11/20/2020 01:35:00 PM EST completed eCW1 ([facility]) influenza, recombinant, quadrIvalent,injectable, prese rvative free 11/20/2020 01:35:00 PM EST completed eCW1 ([facility]) influenza, recombinant, quadrIvalent,injectable, prese rvative free 11/20/2020 01:35:00 PM EST completed eCW1 ([facility]) influenza, recombinant, quadrIvalent,injectable, prese rvative free 11/20/2020 01:35:00 PM EST completed eCW1 ([facility]) influenza, recombinant, quadrIvalent,injectable, prese rvative free 11/20/2020 01:35:00 PM EST completed eCW1 ([facility]) influenza, recombinant, quadrIvalent,injectable, prese rvative free 11/20/2020 01:35:00 PM EST completed eCW1 ([facility]) influenza, recombinant, quadrIvalent,injectable, prese rvative free 11/20/2020 01:35:00 PM EST completed eCW1 ([facility]) influenza, recombinant, quadrIvalent,injectable, prese rvative free 11/20/2020 01:35:00 PM EST completed eCW1 ([facility]) influenza, recombinant, quadrIvalent,injectable, prese rvative free 11/20/2020 01:35:00 PM EST completed eCW1 ([facility]) influenza, recombinant, quadrIvalent,injectable, prese rvative free 11/20/2020 01:35:00 PM EST completed eCW1 ([facility]) influenza, recombinant, quadrIvalent,injectable, prese rvative free 11/20/2020 01:35:00 PM EST completed eCW1 ([facility]) influenza, recombinant, quadrIvalent,injectable, prese rvative free 11/20/2020 01:35:00 PM EST completed eCW1 ([facility]) influenza, recombinant, quadrIvalent,injectable, prese rvative free 11/20/2020 01:35:00 PM EST completed eCW1 ([facility]) influenza, recombinant, quadrIvalent,injectable, prese rvative free 11/20/2020 01:35:00 PM EST completed eCW1 ([facility]) influenza, recombinant, quadrIvalent,injectable, prese rvative free 11/20/2020 01:35:00 PM EST completed eCW1 ([facility]) influenza, recombinant, quadrIvalent,injectable, prese rvative free 11/20/2020 01:35:00 PM EST completed eCW1 ([facility]) influenza, recombinant, quadrIvalent,injectable, prese rvative free 11/20/2020 01:35:00 PM EST completed eCW1 ([facility]) influenza, recombinant, quadrIvalent,injectable, prese rvative free 11/20/2020 01:35:00 PM EST completed eCW1 ([facility]) influenza, recombinant, quadrIvalent,injectable, prese rvative free 06/29/2020 02:19:00 PM EDT completed eCW1 ([facility]) influenza, recombinant, quadrIvalent,injectable, prese rvative free 06/29/2020 02:19:00 PM EDT completed eCW1 ([facility]) influenza, recombinant, quadrIvalent,injectable, prese rvative free 06/29/2020 02:19:00 PM EDT completed eCW1 ([facility]) influenza, recombinant, quadrIvalent,injectable, prese rvative free 06/29/2020 02:19:00 PM EDT completed eCW1 ([facility]) influenza, recombinant, quadrIvalent,injectable, prese rvative free 06/29/2020 02:19:00 PM EDT completed eCW1 ([facility]) influenza, recombinant, quadrIvalent,injectable, prese rvative free 06/29/2020 02:19:00 PM EDT completed eCW1 ([facility]) influenza, recombinant, quadrIvalent,injectable, prese rvative free 06/29/2020 02:19:00 PM EDT completed eCW1 ([facility]) influenza, recombinant, quadrIvalent,injectable, prese rvative free 06/29/2020 02:19:00 PM EDT completed eCW1 ([facility]) influenza, recombinant, quadrIvalent,injectable, prese rvative free 06/29/2020 02:19:00 PM EDT completed eCW1 ([facility]) influenza, recombinant, quadrIvalent,injectable, prese rvative free 06/29/2020 02:19:00 PM EDT completed eCW1 ([facility]) influenza, recombinant, quadrIvalent,injectable, prese rvative free 06/29/2020 02:19:00 PM EDT completed eCW1 ([facility]) influenza, recombinant, quadrIvalent,injectable, prese rvative free 06/29/2020 02:19:00 PM EDT completed eCW1 ([facility]) influenza, recombinant, quadrIvalent,injectable, prese rvative free 06/29/2020 02:19:00 PM EDT completed eCW1 ([facility]) influenza, recombinant, quadrIvalent,injectable, prese rvative free 06/29/2020 02:19:00 PM EDT completed eCW1 ([facility]) influenza, recombinant, quadrIvalent,injectable, prese rvative free 06/29/2020 02:19:00 PM EDT completed eCW1 ([facility]) influenza, recombinant, quadrIvalent,injectable, prese rvative free 06/29/2020 02:19:00 PM EDT completed eCW1 ([facility]) influenza, recombinant, quadrIvalent,injectable, prese rvative free 06/29/2020 02:19:00 PM EDT completed eCW1 ([facility]) influenza, recombinant, quadrIvalent,injectable, prese rvative free 06/29/2020 02:19:00 PM EDT completed eCW1 ([facility]) influenza, recombinant, quadrIvalent,injectable, prese rvative free 06/29/2020 02:19:00 PM EDT completed eCW1 ([facility]) influenza, recombinant, quadrIvalent,injectable, prese rvative free 06/29/2020 02:19:00 PM EDT completed eCW1 ([facility]) influenza, recombinant, quadrIvalent,injectable, prese rvative free 06/29/2020 02:19:00 PM EDT completed eCW1 ([facility]) influenza, recombinant, quadrIvalent,injectable, prese rvative free 06/29/2020 02:19:00 PM EDT completed eCW1 ([facility]) influenza, recombinant, quadrIvalent,injectable, prese rvative free 06/29/2020 02:19:00 PM EDT completed eCW1 ([facility]) influenza, recombinant, quadrIvalent,injectable, prese rvative free 06/29/2020 02:19:00 PM EDT completed eCW1 ([facility]) influenza, recombinant, quadrIvalent,injectable, prese rvative free 06/29/2020 02:19:00 PM EDT completed eCW1 ([facility]) influenza, recombinant, quadrIvalent,injectable, prese rvative free 06/29/2020 02:19:00 PM EDT completed eCW1 ([facility]) influenza, recombinant, quadrIvalent,injectable, prese rvative free 06/29/2020 02:19:00 PM EDT completed eCW1 ([facility]) influenza, recombinant, quadrIvalent,injectable, prese rvative free 06/29/2020 02:19:00 PM EDT completed eCW1 ([facility]) influenza, recombinant, quadrIvalent,injectable, prese rvative free 06/29/2020 02:19:00 PM EDT completed eCW1 ([facility]) influenza, recombinant, quadrIvalent,injectable, prese rvative free 06/29/2020 02:19:00 PM EDT completed eCW1 ([facility]) influenza, recombinant, quadrIvalent,injectable, prese rvative free 06/29/2020 02:19:00 PM EDT completed eCW1 ([facility]) influenza, recombinant, quadrIvalent,injectable, prese rvative free 06/29/2020 02:19:00 PM EDT completed eCW1 ([facility]) influenza, recombinant, quadrIvalent,injectable, prese rvative free 06/29/2020 02:19:00 PM EDT completed eCW1 ([facility]) influenza, recombinant, quadrIvalent,injectable, prese rvative free 06/29/2020 02:19:00 PM EDT completed eCW1 ([facility]) influenza, recombinant, quadrIvalent,injectable, prese rvative free 06/29/2020 02:19:00 PM EDT completed eCW1 ([facility]) influenza, recombinant, quadrIvalent,injectable, prese rvative free 06/29/2020 02:19:00 PM EDT completed eCW1 ([facility]) influenza, recombinant, quadrIvalent,injectable, prese rvative free 06/29/2020 02:19:00 PM EDT completed eCW1 ([facility]) influenza, recombinant, quadrIvalent,injectable, prese rvative free 06/29/2020 02:19:00 PM EDT completed eCW1 ([facility]) influenza, recombinant, quadrIvalent,injectable, prese rvative free 06/29/2020 02:19:00 PM EDT completed eCW1 ([facility]) influenza, recombinant, quadrIvalent,injectable, prese rvative free 06/29/2020 02:19:00 PM EDT completed eCW1 ([facility]) influenza, recombinant, quadrIvalent,injectable, prese rvative free 06/29/2020 02:19:00 PM EDT completed eCW1 ([facility]) influenza, recombinant, quadrIvalent,injectable, prese rvative free 06/29/2020 02:19:00 PM EDT completed eCW1 ([facility]) influenza, recombinant, quadrIvalent,injectable, prese rvative free 06/29/2020 02:19:00 PM EDT completed eCW1 ([facility]) influenza, recombinant, quadrIvalent,injectable, prese rvative free 06/29/2020 02:19:00 PM EDT completed eCW1 ([facility]) influenza, recombinant, quadrIvalent,injectable, prese rvative free 06/29/2020 02:19:00 PM EDT completed eCW1 ([facility]) influenza, recombinant, quadrIvalent,injectable, prese rvative free 06/29/2020 02:19:00 PM EDT completed eCW1 ([facility]) influenza, recombinant, quadrIvalent,injectable, prese rvative free 06/29/2020 02:19:00 PM EDT completed eCW1 ([facility]) influenza, recombinant, quadrIvalent,injectable, prese rvative free 06/29/2020 02:19:00 PM EDT completed eCW1 ([facility]) influenza, recombinant, quadrIvalent,injectable, prese rvative free 06/29/2020 02:19:00 PM EDT completed eCW1 ([facility]) influenza, recombinant, quadrIvalent,injectable, prese rvative free 06/29/2020 02:19:00 PM EDT completed eCW1 ([facility]) influenza, recombinant, quadrIvalent,injectable, prese rvative free 06/29/2020 02:19:00 PM EDT completed eCW1 ([facility]) influenza, recombinant, quadrIvalent,injectable, prese rvative free 06/29/2020 02:19:00 PM EDT completed eCW1 ([facility]) influenza, recombinant, quadrIvalent,injectable, prese rvative free 06/29/2020 02:19:00 PM EDT completed eCW1 ([facility]) influenza, recombinant, quadrIvalent,injectable, prese rvative free 06/29/2020 02:19:00 PM EDT completed eCW1 ([facility]) influenza, recombinant, quadrIvalent,injectable, prese rvative free 06/29/2020 02:19:00 PM EDT completed eCW1 ([facility]) influenza, recombinant, quadrIvalent,injectable, prese rvative free 06/29/2020 02:19:00 PM EDT completed eCW1 ([facility]) Medications Medication Brand Name Start Date Product [...] ac tive hydrOXYzine HCl 25 MG eCW1 ([facility]) Hydroxyzine Hydrochloride 25 MG Oral Tablet hydrOXYzin e HCl 25 MG hydrOXYzine HCl 25 MG 07/22/2021 12:00:00 AM EDT 1.0 {tablet} ac tive hydrOXYzine HCl 25 MG eCW1 ([facility]) Hydroxyzine Hydrochloride 25 MG Oral Tablet hydrOXYzin e HCl 25 MG hydrOXYzine HCl 25 MG 07/22/2021 12:00:00 AM EDT 1.0 {tablet} ac tive hydrOXYzine HCl 25 MG eCW1 ([facility]) Hydroxyzine Hydrochloride 25 MG Oral Tablet hydrOXYzin e HCl 25 MG hydrOXYzine HCl 25 MG 07/22/2021 12:00:00 AM EDT 1.0 {tablet} ac tive hydrOXYzine HCl 25 MG eCW1 ([facility]) Hydroxyzine Hydrochloride 25 MG Oral Tablet hydrOXYzin e HCl 25 MG hydrOXYzine HCl 25 MG 07/22/2021 12:00:00 AM EDT 1.0 {tablet} ac tive hydrOXYzine HCl 25 MG eCW1 ([facility]) Hydroxyzine Hydrochloride 25 MG Oral Tablet hydrOXYzin e HCl 25 MG hydrOXYzine HCl 25 MG 07/22/2021 12:00:00 AM EDT 1.0 {tablet} ac tive hydrOXYzine HCl 25 MG eCW1 ([facility]) Betamethasone 0.5 MG/ML Topical Cream Betamethasone Di propionate 0.05 % Betamethasone Dipropionate 0.05 % 06/28/2021 12:00:00 AM EDT 1.0 {application} active Betamethasone Dipropiona te 0.05 % eCW1 ([facility]) Betamethasone 0.5 MG/ML Topical Cream Betamethasone Di propionate 0.05 % Betamethasone Dipropionate 0.05 % 06/28/2021 12:00:00 AM EDT 1.0 {application} active Betamethasone Dipropiona te 0.05 % eCW1 ([facility]) Betamethasone 0.5 MG/ML Topical Cream Betamethasone Di propionate 0.05 % Betamethasone Dipropionate 0.05 % 06/28/2021 12:00:00 AM EDT 1.0 {application} active Betamethasone Dipropiona te 0.05 % eCW1 ([facility]) Betamethasone 0.5 MG/ML Topical Cream Betamethasone Di propionate 0.05 % Betamethasone Dipropionate 0.05 % 06/28/2021 12:00:00 AM EDT 1.0 {application} active Betamethasone Dipropiona te 0.05 % eCW1 ([facility]) Betamethasone 0.5 MG/ML Topical Cream Betamethasone Di propionate 0.05 % Betamethasone Dipropionate 0.05 % 06/28/2021 12:00:00 AM EDT 1.0 {application} active Betamethasone Dipropiona te 0.05 % eCW1 ([facility]) meloxicam 15 MG Oral Tablet Meloxicam 06/21/2021 12:00:00 AM EDT ORAL active MEDENT ([facility]) Inject Triamcinolone Acetonide 10 ML, [facility] 8503-5407-04 06/04/2021 12:00:00 AM EDT completed MEDENT ([facility] Medication administered onsite Inject Dexamthosone Phosphate 66020-453-55 06/04/2021 12:00:00 A M EDT completed MEDENT ([facility] Medication administered onsite Triamcinolone Acetonide 1 MG/ML Topical Cream Triamcin olone Acetonide 0.1 % Triamcinolone Acetonide 0.1 % 05/16/2021 12:00:00 AM EDT 1.0 {appli cation} active Triamcinolone Acetonide 0 .1 % eCW1 ([facility]) Triamcinolone Acetonide 1 MG/ML Topical Cream Triamcin olone Acetonide 0.1 % Triamcinolone Acetonide 0.1 % 05/16/2021 12:00:00 AM EDT 1.0 {appli cation} active Triamcinolone Acetonide 0 .1 % eCW1 ([facility]) Triamcinolone Acetonide 1 MG/ML Topical Cream Triamcin olone Acetonide 0.1 % Triamcinolone Acetonide 0.1 % 05/16/2021 12:00:00 AM EDT 1.0 {appli cation} active Triamcinolone Acetonide 0 .1 % eCW1 ([facility]) Triamcinolone Acetonide 1 MG/ML Topical Cream Triamcin olone Acetonide 0.1 % Triamcinolone Acetonide 0.1 % 05/16/2021 12:00:00 AM EDT 1.0 {appli cation} active Triamcinolone Acetonide 0 .1 % eCW1 ([facility]) Triamcinolone Acetonide 1 MG/ML Topical Cream Triamcin olone Acetonide 0.1 % Triamcinolone Acetonide 0.1 % 05/16/2021 12:00:00 AM EDT 1.0 {appli cation} active Triamcinolone Acetonide 0 .1 % eCW1 ([facility]) Triamcinolone Acetonide 1 MG/ML Topical Cream Triamcin olone Acetonide 0.1 % Triamcinolone Acetonide 0.1 % 05/16/2021 12:00:00 AM EDT 1.0 {appli cation} active Triamcinolone Acetonide 0 .1 % eCW1 ([facility]) Triamcinolone Acetonide 1 MG/ML Topical Cream Triamcin olone Acetonide 0.1 % Triamcinolone Acetonide 0.1 % 05/16/2021 12:00:00 AM EDT 1.0 {appli cation} active Triamcinolone Acetonide 0 .1 % eCW1 ([facility]) Triamcinolone Acetonide 1 MG/ML Topical Cream Triamcin olone Acetonide 0.1 % Triamcinolone Acetonide 0.1 % 05/16/2021 12:00:00 AM EDT 1.0 {appli cation} active Triamcinolone Acetonide 0 .1 % eCW1 ([facility]) Triamcinolone Acetonide 1 MG/ML Topical Cream Triamcin olone Acetonide 0.1 % Triamcinolone Acetonide 0.1 % 05/16/2021 12:00:00 AM EDT 1.0 {appli cation} active Triamcinolone Acetonide 0 .1 % eCW1 ([facility]) Triamcinolone Acetonide 1 MG/ML Topical Cream Triamcin olone Acetonide 0.1 % Triamcinolone Acetonide 0.1 % 05/16/2021 12:00:00 AM EDT 1.0 {appli cation} active Triamcinolone Acetonide 0 .1 % eCW1 ([facility]) Triamcinolone Acetonide 1 MG/ML Topical Cream Triamcin olone Acetonide 0.1 % Triamcinolone Acetonide 0.1 % 05/16/2021 12:00:00 AM EDT 1.0 {appli cation} active Triamcinolone Acetonide 0 .1 % eCW1 ([facility]) Triamcinolone Acetonide 1 MG/ML Topical Cream Triamcin olone Acetonide 0.1 % Triamcinolone Acetonide 0.1 % 05/16/2021 12:00:00 AM EDT 1.0 {appli cation} active Triamcinolone Acetonide 0 .1 % eCW1 ([facility]) Triamcinolone Acetonide 1 MG/ML Topical Cream Triamcin olone Acetonide 0.1 % Triamcinolone Acetonide 0.1 % 05/16/2021 12:00:00 AM EDT 1.0 {appli cation} active Triamcinolone Acetonide 0 .1 % eCW1 ([facility]) Triamcinolone Acetonide 1 MG/ML Topical Cream Triamcin olone Acetonide 0.1 % Triamcinolone Acetonide 0.1 % 05/16/2021 12:00:00 AM EDT 1.0 {appli cation} active Triamcinolone Acetonide 0 .1 % eCW1 ([facility]) Triamcinolone Acetonide 1 MG/ML Topical Cream Triamcin olone Acetonide 0.1 % Triamcinolone Acetonide 0.1 % 05/16/2021 12:00:00 AM EDT 1.0 {appli cation} active Triamcinolone Acetonide 0 .1 % eCW1 ([facility]) Triamcinolone Acetonide 1 MG/ML Topical Cream Triamcin olone Acetonide 0.1 % Triamcinolone Acetonide 0.1 % 05/16/2021 12:00:00 AM EDT 1.0 {appli cation} active Triamcinolone Acetonide 0 .1 % eCW1 ([facility]) Triamcinolone Acetonide 1 MG/ML Topical Cream Triamcin olone Acetonide 0.1 % Triamcinolone Acetonide 0.1 % 05/16/2021 12:00:00 AM EDT 1.0 {appli cation} active Triamcinolone Acetonide 0 .1 % eCW1 ([facility]) Triamcinolone Acetonide 1 MG/ML Topical Cream Triamcin olone Acetonide 0.1 % Triamcinolone Acetonide 0.1 % 05/16/2021 12:00:00 AM EDT 1.0 {appli cation} active Triamcinolone Acetonide 0 .1 % eCW1 ([facility]) Triamcinolone Acetonide 1 MG/ML Topical Cream Triamcin olone Acetonide 0.1 % Triamcinolone Acetonide 0.1 % 05/16/2021 12:00:00 AM EDT 1.0 {appli cation} active Triamcinolone Acetonide 0 .1 % eCW1 ([facility]) Ondansetron 8 MG Oral Tablet Ondansetron HCl 8 MG Ondansetro n HCl 8 MG 05/15/2021 12:00:00 AM EDT 1.0 {tablet_as_needed} active Ondansetron HCl 8 MG eCW1 ([facility]) Ondansetron 8 MG Oral Tablet Ondansetron HCl 8 MG Ondansetro n HCl 8 MG 05/15/2021 12:00:00 AM EDT 1.0 {tablet_as_needed} active Ondansetron HCl 8 MG eCW1 ([facility]) Ondansetron 8 MG Oral Tablet Ondansetron HCl 8 MG Ondansetro n HCl 8 MG 05/15/2021 12:00:00 AM EDT 1.0 {tablet_as_needed} active Ondansetron HCl 8 MG eCW1 ([facility]) Ondansetron 8 MG Oral Tablet Ondansetron HCl 8 MG Ondansetro n HCl 8 MG 05/15/2021 12:00:00 AM EDT 1.0 {tablet_as_needed} active Ondansetron HCl 8 MG eCW1 ([facility]) Ondansetron 8 MG Oral Tablet Ondansetron HCl 8 MG Ondansetro n HCl 8 MG 05/15/2021 12:00:00 AM EDT 1.0 {tablet_as_needed} active Ondansetron HCl 8 MG eCW1 ([facility]) Ondansetron 8 MG Oral Tablet Ondansetron HCl 8 MG Ondansetro n HCl 8 MG 05/15/2021 12:00:00 AM EDT 1.0 {tablet_as_needed} active Ondansetron HCl 8 MG eCW1 ([facility]) Ondansetron 8 MG Oral Tablet Ondansetron HCl 8 MG Ondansetro n HCl 8 MG 05/15/2021 12:00:00 AM EDT 1.0 {tablet_as_needed} active Ondansetron HCl 8 MG eCW1 ([facility]) Ondansetron 8 MG Oral Tablet Ondansetron HCl 8 MG Ondansetro n HCl 8 MG 05/15/2021 12:00:00 AM EDT 1.0 {tablet_as_needed} active Ondansetron HCl 8 MG eCW1 ([facility]) Ondansetron 8 MG Oral Tablet Ondansetron HCl 8 MG Ondansetro n HCl 8 MG 05/15/2021 12:00:00 AM EDT 1.0 {tablet_as_needed} active Ondansetron HCl 8 MG eCW1 ([facility]) Ondansetron 8 MG Oral Tablet Ondansetron HCl 8 MG Ondansetro n HCl 8 MG 05/15/2021 12:00:00 AM EDT 1.0 {tablet_as_needed} active Ondansetron HCl 8 MG eCW1 ([facility]) Ondansetron 8 MG Oral Tablet Ondansetron HCl 8 MG Ondansetro n HCl 8 MG 05/15/2021 12:00:00 AM EDT 1.0 {tablet_as_needed} active Ondansetron HCl 8 MG eCW1 ([facility]) Ondansetron 8 MG Oral Tablet Ondansetron HCl 8 MG Ondansetro n HCl 8 MG 05/15/2021 12:00:00 AM EDT 1.0 {tablet_as_needed} active Ondansetron HCl 8 MG eCW1 ([facility]) Ondansetron 8 MG Oral Tablet Ondansetron HCl 8 MG Ondansetro n HCl 8 MG 05/15/2021 12:00:00 AM EDT 1.0 {tablet_as_needed} active Ondansetron HCl 8 MG eCW1 ([facility]) Ondansetron 8 MG Oral Tablet Ondansetron HCl 8 MG Ondansetro n HCl 8 MG 05/15/2021 12:00:00 AM EDT 1.0 {tablet_as_needed} active Ondansetron HCl 8 MG eCW1 ([facility]) Ondansetron 8 MG Oral Tablet Ondansetron HCl 8 MG Ondansetro n HCl 8 MG 05/15/2021 12:00:00 AM EDT 1.0 {tablet_as_needed} active Ondansetron HCl 8 MG eCW1 ([facility]) Ondansetron 8 MG Oral Tablet Ondansetron HCl 8 MG Ondansetro n HCl 8 MG 05/15/2021 12:00:00 AM EDT 1.0 {tablet_as_needed} active Ondansetron HCl 8 MG eCW1 ([facility]) Ondansetron 8 MG Oral Tablet Ondansetron HCl 8 MG Ondansetro n HCl 8 MG 05/15/2021 12:00:00 AM EDT 1.0 {tablet_as_needed} active Ondansetron HCl 8 MG eCW1 ([facility]) Ondansetron 8 MG Oral Tablet Ondansetron HCl 8 MG Ondansetro n HCl 8 MG 05/15/2021 12:00:00 AM EDT 1.0 {tablet_as_needed} active Ondansetron HCl 8 MG eCW1 ([facility]) Ondansetron 8 MG Oral Tablet Ondansetron HCl 8 MG Ondansetro n HCl 8 MG 05/15/2021 12:00:00 AM EDT 1.0 {tablet_as_needed} active Ondansetron HCl 8 MG eCW1 ([facility]) Ondansetron 8 MG Oral Tablet Ondansetron HCl 8 MG Ondansetro n HCl 8 MG 05/15/2021 12:00:00 AM EDT 1.0 {tablet_as_needed} active Ondansetron HCl 8 MG eCW1 ([facility]) tramadol hydrochloride 50 MG Oral Tablet traMADol (ULT ELOY) 50 MG tablet traMADol (ULTRAM) 50 MG tablet 04/17/2021 12:00:00 AM EDT 50 mg Oral active Take 50 mg by mouth 2 (two) times a day [facility] topiramate 50 MG Oral Tablet topiramate (TOPAMAX) 50 M G tablet topiramate (TOPAMAX) 50 MG tablet 03/26/2021 12:00:00 AM EDT 50 mg Oral active Take 50 mg by mouth nightly [facility] Medrol Medrol 03/20/2021 12:00:00 AM EDT active MEDENT ([facility]) Hydrocortisone 10 MG/ML / Neomycin 3.5 M G/ML / Polymyxin B 19479 UNT/ML Otic Suspension Ouooydfc-Ggnkrfjsc-EZ 3.5-24780-9 Lfqrgpwh-Rsnsbmmmj-VW 3.5-81720-0 03/18/2021 12:00:00 AM EDT 4.0 {drops_into_affected_ear} active Qasmbpwy-Fdxrgssbn-EN 3.5-39985-1 eCW1 ([facility]) Hydrocortisone 10 MG/ML / Neomycin 3.5 M G/ML / Polymyxin B 10272 UNT/ML Otic Suspension Vtkykvzq-Dkoftflhu-LG 3.5-47987-4 Kajckyhr-Uybgfqghr-ML 3.5-28176-4 03/18/2021 12:00:00 AM EDT 4.0 {drops_into_affected_ear} active Uufszmca-Uyzhoqhkp-TL 3.5-23265-4 eCW1 ([facility]) Hydrocortisone 10 MG/ML / Neomycin 3.5 M G/ML / Polymyxin B 51960 UNT/ML Otic Suspension Etljulas-Xfdumelbw-YP 3.5-55047-6 Ndmznlkx-Qcqrlkntz-IV 3.5-54828-7 03/18/2021 12:00:00 AM EDT 4.0 {drops_into_affected_ear} active Hsqwkbzr-Nxjrqyddp-UK 3.5-70706-3 eCW1 ([facility]) Hydrocortisone 10 MG/ML / Neomycin 3.5 M G/ML / Polymyxin B 96908 UNT/ML Otic Suspension Gyxphqgc-Pvfmoyoko-BW 3.5-40733-2 Qbwhvbjt-Oybnusmuo-AG 3.5-27810-2 03/18/2021 12:00:00 AM EDT 4.0 {drops_into_affected_ear} active Cbmrgruz-Xgizituxr-ND 3.581710-6 eCW1 ([facility]) Hydrocortisone 10 MG/ML / Neomycin 3.5 M G/ML / Polymyxin B 61388 UNT/ML Otic Suspension Nbwmittp-Nwlhcfmro-UZ 3.598712-5 Ussxesut-Qvmaioyes-LI 3.5-05210-0 03/18/2021 12:00:00 AM EDT 4.0 {drops_into_affected_ear} active Fzxfqdro-Aykcukcci-TY 3.556536-7 eCW1 ([facility]) Hydrocortisone 10 MG/ML / Neomycin 3.5 M G/ML / Polymyxin B 41330 UNT/ML Otic Suspension Tqmudfmf-Aslleczaz-RV 3.555110-0 Eexfdmqq-Tmbbfwhmr-AO 3.5-36207-9 03/18/2021 12:00:00 AM EDT 4.0 {drops_into_affected_ear} active Ubvdyndy-Wucllovrw-BC 3.575330-4 eCW1 ([facility]) Hydrocortisone 10 MG/ML / Neomycin 3.5 M G/ML / Polymyxin B 14815 UNT/ML Otic Suspension Lrpalihg-Zbekzcsps-OC 3.579878-6 Vsmxhzyz-Yafyygwzd-ZD 3.585831-4 03/18/2021 12:00:00 AM EDT 4.0 {drops_into_affected_ear} active Frhwvbtp-Hykyqaopy-NU 3.5-81413-6 eCW1 ([facility]) Hydrocortisone 10 MG/ML / Neomycin 3.5 M G/ML / Polymyxin B 67745 UNT/ML Otic Suspension Pkghqsxj-Rrdfmxepz-DK 3.5-22608-4 Hamijrmx-Ypxggyqrd-PM 3.5-82615-0 03/18/2021 12:00:00 AM EDT 4.0 {drops_into_affected_ear} active Pznviler-Okpqfwnsl-VL 3.543575-2 eCW1 ([facility]) Hydrocortisone 10 MG/ML / Neomycin 3.5 M G/ML / Polymyxin B 21018 UNT/ML Otic Suspension Tjooonfk-Atjrhxbhz-BG 3.5-98646-9 Mvplhzah-Snxmhyudb-IS 3.5-41271-7 03/18/2021 12:00:00 AM EDT 4.0 {drops_into_affected_ear} active Tfplomhw-Qrsplcxub-SX 3.570872-4 eCW1 ([facility]) Hydrocortisone 10 MG/ML / Neomycin 3.5 M G/ML / Polymyxin B 23017 UNT/ML Otic Suspension Bbmabyds-Ngwemreem-RI 3.5-28956-8 Avkgsrwh-Yxinbavjk-TO 3.5-55252-3 03/18/2021 12:00:00 AM EDT 4.0 {drops_into_affected_ear} active Isrbvvwv-Bcrfaovav-QB 3.585138-5 eCW1 ([facility]) Hydrocortisone 10 MG/ML / Neomycin 3.5 M G/ML / Polymyxin B 33600 UNT/ML Otic Suspension Nmzatrkf-Wyboyqsme-PX 3.5-06938-3 Hdwmhkbr-Ksqbzrpci-SN 3.5-15765-3 03/18/2021 12:00:00 AM EDT 4.0 {drops_into_affected_ear} active Htglleqx-Zomwyfpju-BN 3.568058-3 eCW1 ([facility]) Hydrocortisone 10 MG/ML / Neomycin 3.5 M G/ML / Polymyxin B 55714 UNT/ML Otic Suspension Vroheutg-Zmybchwtk-KU 3.5-15503-4 Dhnrzvut-Pjpqbkpqg-NX 3.5-83167-9 03/18/2021 12:00:00 AM EDT 4.0 {drops_into_affected_ear} active Fldazfyi-Yqdzgelan-TQ 3.5-49268-2 eCW1 ([facility]) Hydrocortisone 10 MG/ML / Neomycin 3.5 M G/ML / Polymyxin B 34493 UNT/ML Otic Suspension Cijzjqtu-Tziznztjx-KU 3.5-33487-1 Bzizrmxf-Trcspzkhf-BQ 3.5-55461-7 03/18/2021 12:00:00 AM EDT 4.0 {drops_into_affected_ear} active Gtibzurv-Iakbotuqy-WS 3.5-59378-2 eCW1 ([facility]) Hydrocortisone 10 MG/ML / Neomycin 3.5 M G/ML / Polymyxin B 51819 UNT/ML Otic Suspension Twfzdvml-Unjahecmv-UG 3.5-92637-4 Eprsizmw-Mmqjalltw-EI 3.5-57987-1 03/18/2021 12:00:00 AM EDT 4.0 {drops_into_affected_ear} active Winmfbzr-Xsxibrjdv-VR 3.581208-9 eCW1 ([facility]) Hydrocortisone 10 MG/ML / Neomycin 3.5 M G/ML / Polymyxin B 56209 UNT/ML Otic Suspension Cylnvqgg-Afuszumkb-LN 3.563574-9 Wlqbpijy-Xqjmxttit-FN 3.577561-6 03/18/2021 12:00:00 AM EDT 4.0 {drops_into_affected_ear} active Styusrqy-Ilkjvkgvl-NW 3.594925-8 eCW1 ([facility]) Hydrocortisone 10 MG/ML / Neomycin 3.5 M G/ML / Polymyxin B 23360 UNT/ML Otic Suspension Bbkqwfov-Zgynldfnz-OG 3.574022-8 Osfendcy-Rdrdozdtk-BL 3.573488-8 03/18/2021 12:00:00 AM EDT 4.0 {drops_into_affected_ear} active Aaxsefoo-Vssqbehnj-TW 3.568249-4 eCW1 ([facility]) Hydrocortisone 10 MG/ML / Neomycin 3.5 M G/ML / Polymyxin B 06966 UNT/ML Otic Suspension Wyntznjk-Oqhgcbynp-NA 3.560749-9 Sflwblrc-Jlmrnudlk-QZ 3.535323-5 03/18/2021 12:00:00 AM EDT 4.0 {drops_into_affected_ear} active Rafbpoah-Apdaeazoo-JH 3.534280-6 eCW1 ([facility]) Hydrocortisone 10 MG/ML / Neomycin 3.5 M G/ML / Polymyxin B 35607 UNT/ML Otic Suspension Bpjusxmw-Ujiwtvdhp-OD 3.5-39583-4 Ipihgoql-Dnegqavud-VB 3.5-85667-6 03/18/2021 12:00:00 AM EDT 4.0 {drops_into_affected_ear} active Ifaanifo-Jperyuiat-SJ 3.5-95709-7 eCW1 ([facility]) Hydrocortisone 10 MG/ML / Neomycin 3.5 M G/ML / Polymyxin B 94158 UNT/ML Otic Suspension vxoryhjn-fhcxqymdh-ujrhpatstrmiku (CORTISPORIN) 3.5-32405-3 otic suspension lcsyypcf-jukagzorr-rqqsglrifkbwwz (CORTI SPORIN) 3.5-61300-2 otic suspension 03/18/2021 12:00:00 AM EDT 4 [drp] active Administer 4 drops into both ears 3 (three) times a day [facility] Hydrocortisone 10 MG/ML / Neomycin 3.5 M G/ML / Polymyxin B 26531 UNT/ML Otic Suspension Jyzzxyjv-Bwbzebpuh-WY 3.5-50232-5 Dqwrvhji-Jpwrcrpsw-GI 3.5-49808-9 03/18/2021 12:00:00 AM EDT 4.0 {drops_into_affected_ear} active Wccpbgst-Uaqcagnwr-DZ 3.540432-9 eCW1 ([facility]) Hydrocortisone 10 MG/ML / Neomycin 3.5 M G/ML / Polymyxin B 85931 UNT/ML Otic Suspension Mgcclolp-Tsctoupob-IQ 3.5-47585-8 Ojlzbjig-Clldowcux-KR 3.5-43460-4 03/18/2021 12:00:00 AM EDT 4.0 {drops_into_affected_ear} active Ligzjqut-Ancetbqal-AY 3.5-39979-4 eCW1 ([facility]) Hydrocortisone 10 MG/ML / Neomycin 3.5 M G/ML / Polymyxin B 73604 UNT/ML Otic Suspension Ojvqdsrf-Twyilwdhw-FD 3.5-79938-5 Iamybiut-Xmabpkotd-II 3.5-98069-4 03/18/2021 12:00:00 AM EDT 4.0 {drops_into_affected_ear} active Rkcjltfy-Hfxrlgbsd-FR 3.5-82355-2 eCW1 ([facility]) Hydrocortisone 10 MG/ML / Neomycin 3.5 M G/ML / Polymyxin B 03645 UNT/ML Otic Suspension Tlrurssf-Iqsxdwskz-SZ 3.5-67959-2 Fjujtsjf-Ulycfxlmr-GN 3.5-17285-9 03/18/2021 12:00:00 AM EDT 4.0 {drops_into_affected_ear} active Rqtpdlhg-Abqyflpow-MJ 3.5-51476-9 eCW1 ([facility]) Hydrocortisone 10 MG/ML / Neomycin 3.5 M G/ML / Polymyxin B 37827 UNT/ML Otic Suspension Emquejqv-Etkcerhpc-YW 3.5-94426-0 Duxlyweq-Fedkptejg-AR 3.5-72683-8 03/18/2021 12:00:00 AM EDT 4.0 {drops_into_affected_ear} active Aijjduem-Dsbbdoxih-XK 3.5-23233-9 eCW1 ([facility]) Hydrocortisone 10 MG/ML / Neomycin 3.5 M G/ML / Polymyxin B 81838 UNT/ML Otic Suspension Olnohzwh-Iqxyceghk-OV 3.5-81411-1 Ksjjbuil-Yoimsnmex-DJ 3.5-14855-5 03/18/2021 12:00:00 AM EDT 4.0 {drops_into_affected_ear} active Evjbegzc-Ckakdgcbr-ZD 3.529856-8 eCW1 ([facility]) Hydrocortisone 10 MG/ML / Neomycin 3.5 M G/ML / Polymyxin B 80003 UNT/ML Otic Suspension Yzobdwbm-Eeblmatfi-ZC 3.5-94549-1 Jnmfjdec-Ugznhesqs-FH 3.5-94560-5 03/18/2021 12:00:00 AM EDT 4.0 {drops_into_affected_ear} active Ypfyafcj-Scpkkkwjl-TK 3.5-25659-6 eCW1 ([facility]) Hydrocortisone 10 MG/ML / Neomycin 3.5 M G/ML / Polymyxin B 79924 UNT/ML Otic Suspension Wugfxriv-Xometcnut-CY 3.5-10425-4 Ngawibit-Jwcxlcvwv-IN 3.5-23375-3 03/18/2021 12:00:00 AM EDT 4.0 {drops_into_affected_ear} active Dmicwhwa-Zvokbpyzy-OC 3.5-69072-8 eCW1 ([facility]) Hydrocortisone 10 MG/ML / Neomycin 3.5 M G/ML / Polymyxin B 27593 UNT/ML Otic Suspension Ptqophnu-Padrvoalg-LS 3.5-93798-8 Pnljxctg-Djtnxehnh-QU 3.5-81028-2 03/18/2021 12:00:00 AM EDT 4.0 {drops_into_affected_ear} active Skuwfggb-Jskcimuea-VD 3.540498-2 eCW1 ([facility]) Hydrocortisone 10 MG/ML / Neomycin 3.5 M G/ML / Polymyxin B 56969 UNT/ML Otic Suspension Qqipzqsb-Yadisissi-BD 3.562339-0 Ernjagba-Selepoltv-AA 3.5-89202-7 03/18/2021 12:00:00 AM EDT 4.0 {drops_into_affected_ear} active Rkmjkhig-Tjfyrkalv-XK 3.548238-4 eCW1 ([facility]) Hydrocortisone 10 MG/ML / Neomycin 3.5 M G/ML / Polymyxin B 10758 UNT/ML Otic Suspension Wnzrrevv-Aydpljnzz-ND 3.519850-3 Vaxqkonw-Nhukppzqj-BW 3.5-64026-3 03/18/2021 12:00:00 AM EDT 4.0 {drops_into_affected_ear} active Ndszyvdm-Ysormfpel-VI 3.582898-0 eCW1 ([facility]) Hydrocortisone 10 MG/ML / Neomycin 3.5 M G/ML / Polymyxin B 24720 UNT/ML Otic Suspension Nnkqyrlb-Suzywfgzo-TO 3.541227-2 Wfnwjhmn-Hmrtfddmg-PQ 3.5-91306-4 03/18/2021 12:00:00 AM EDT 4.0 {drops_into_affected_ear} active Slgepbmd-Uajwgtqmx-WF 3.560168-7 eCW1 ([facility]) Hydrocortisone 10 MG/ML / Neomycin 3.5 M G/ML / Polymyxin B 89048 UNT/ML Otic Suspension Idhsjuah-Oaijnkaxc-TR 3.587239-4 Umqblpat-Ikvwwzebb-OY 3.5-11943-0 03/18/2021 12:00:00 AM EDT 4.0 {drops_into_affected_ear} active Wekbtmar-Gqdggubuv-MO 3.5-19305-5 eCW1 ([facility]) Hydrocortisone 10 MG/ML / Neomycin 3.5 M G/ML / Polymyxin B 68589 UNT/ML Otic Suspension Iriopkzj-Ifcokuqlt-FV 3.5-38963-4 Zehkljrk-Yyfhexftf-BS 3.5-99546-8 03/18/2021 12:00:00 AM EDT 4.0 {drops_into_affected_ear} active Dgagnoqa-Eolgczpas-YH 3.5-01781-5 eCW1 ([facility]) Hydrocortisone 10 MG/ML / Neomycin 3.5 M G/ML / Polymyxin B 14585 UNT/ML Otic Suspension Dxykymul-Drqepeqme-BQ 3.5-02184-1 Fipahuir-Xpnhvenam-JD 3.5-51189-3 03/18/2021 12:00:00 AM EDT 4.0 {drops_into_affected_ear} active Onvczzcn-Wxelddtqd-GB 3.5-33895-4 eCW1 ([facility]) Hydrocortisone 10 MG/ML / Neomycin 3.5 M G/ML / Polymyxin B 24275 UNT/ML Otic Suspension Pbdqloli-Bqtvizcku-XU 3.5-17863-4 Yuggnuma-Lzaufbozd-WA 3.5-70869-1 03/18/2021 12:00:00 AM EDT 4.0 {drops_into_affected_ear} active Tohdvdge-Uqapkjvwf-UN 3.5-22239-5 eCW1 ([facility]) POLYETHYLENE GLYCOL 3350 142 MG/ML Oral Solution [Carlene lax] MiraLax 17 GM/SCOOP MiraLax 17 GM/SCOOP 03/15/2021 12:00:00 AM EDT active MiraLax 17 GM/SCOOP eCW1 ([facility]) POLYETHYLENE GLYCOL 3350 142 MG/ML Oral Solution [Carlene lax] MiraLax 17 GM/SCOOP MiraLax 17 GM/SCOOP 03/15/2021 12:00:00 AM EDT active MiraLax 17 GM/SCOOP eCW1 ([facility]) Docusate Sodium 100 MG Oral Capsule [Colace] Colace 100 MG C olace 100 MG 03/15/2021 12:00:00 AM EDT 1.0 {capsule} active Colace 100 MG eCW1 ([facility]) POLYETHYLENE GLYCOL 3350 142 MG/ML Oral Solution [Carlene lax] MiraLax 17 GM/SCOOP MiraLax 17 GM/SCOOP 03/15/2021 12:00:00 AM EDT active MiraLax 17 GM/SCOOP eCW1 ([facility]) Docusate Sodium 100 MG Oral Capsule [Colace] Colace 100 MG C olace 100 MG 03/15/2021 12:00:00 AM EDT 1.0 {capsule} active Colace 100 MG eCW1 ([facility]) Docusate Sodium 100 MG Oral Capsule [Colace] Colace 100 MG C olace 100 MG 03/15/2021 12:00:00 AM EDT 1.0 {capsule} active Colace 100 MG eCW1 ([facility]) Docusate Sodium 100 MG Oral Capsule [Colace] Colace 100 MG C olace 100 MG 03/15/2021 12:00:00 AM EDT 1.0 {capsule} active Colace 100 MG eCW1 ([facility]) POLYETHYLENE GLYCOL 3350 142 MG/ML Oral Solution [Carlene lax] MiraLax 17 GM/SCOOP MiraLax 17 GM/SCOOP 03/15/2021 12:00:00 AM EDT active MiraLax 17 GM/SCOOP eCW1 ([facility]) POLYETHYLENE GLYCOL 3350 142 MG/ML Oral Solution [Carlene lax] MiraLax 17 GM/SCOOP MiraLax 17 GM/SCOOP 03/15/2021 12:00:00 AM EDT active MiraLax 17 GM/SCOOP eCW1 ([facility]) Docusate Sodium 100 MG Oral Capsule [Colace] Colace 100 MG C olace 100 MG 03/15/2021 12:00:00 AM EDT 1.0 {capsule} active Colace 100 MG eCW1 ([facility]) POLYETHYLENE GLYCOL 3350 142 MG/ML Oral Solution [Carlene lax] MiraLax 17 GM/SCOOP MiraLax 17 GM/SCOOP 03/15/2021 12:00:00 AM EDT active MiraLax 17 GM/SCOOP eCW1 ([facility]) Docusate Sodium 100 MG Oral Capsule [Colace] Colace 100 MG C olace 100 MG 03/15/2021 12:00:00 AM EDT 1.0 {capsule} active Colace 100 MG eCW1 ([facility]) POLYETHYLENE GLYCOL 3350 142 MG/ML Oral Solution [Carlene lax] MiraLax 17 GM/SCOOP MiraLax 17 GM/SCOOP 03/15/2021 12:00:00 AM EDT active MiraLax 17 GM/SCOOP eCW1 ([facility]) Docusate Sodium 100 MG Oral Capsule [Colace] Colace 100 MG C olace 100 MG 03/15/2021 12:00:00 AM EDT 1.0 {capsule} active Colace 100 MG eCW1 ([facility]) POLYETHYLENE GLYCOL 3350 142 MG/ML Oral Solution [Carlene lax] MiraLax 17 GM/SCOOP MiraLax 17 GM/SCOOP 03/15/2021 12:00:00 AM EDT active MiraLax 17 GM/SCOOP eCW1 ([facility]) POLYETHYLENE GLYCOL 3350 142 MG/ML Oral Solution [Carlene lax] MiraLax 17 GM/SCOOP MiraLax 17 GM/SCOOP 03/15/2021 12:00:00 AM EDT active MiraLax 17 GM/SCOOP eCW1 ([facility]) POLYETHYLENE GLYCOL 3350 142 MG/ML Oral Solution polyethylene glycol (GLYCOLAX) 17 GM/SCOOP powder polyethylene glycol (GLYCOLAX) 17 GM/SCOOP powder 03/05 12:00:00 AM EDT 17 g Oral active Take 17 g by mouth as needed [facility] POLYETHYLENE GLYCOL 3350 142 MG/ML Oral Solution [Carlene lax] MiraLax 17 GM/SCOOP MiraLax 17 GM/SCOOP 03/15/2021 12:00:00 AM EDT active MiraLax 17 GM/SCOOP eCW1 ([facility]) POLYETHYLENE GLYCOL 3350 142 MG/ML Oral Solution [Carlene lax] MiraLax 17 GM/SCOOP MiraLax 17 GM/SCOOP 03/15/2021 12:00:00 AM EDT active MiraLax 17 GM/SCOOP eCW1 ([facility]) Docusate Sodium 100 MG Oral Capsule [Colace] Colace 100 MG C olace 100 MG 03/15/2021 12:00:00 AM EDT 1.0 {capsule} active Colace 100 MG eCW1 ([facility]) POLYETHYLENE GLYCOL 3350 142 MG/ML Oral Solution [Carlene lax] MiraLax 17 GM/SCOOP MiraLax 17 GM/SCOOP 03/15/2021 12:00:00 AM EDT active MiraLax 17 GM/SCOOP eCW1 ([facility]) POLYETHYLENE GLYCOL 3350 142 MG/ML Oral Solution [Carlene lax] MiraLax 17 GM/SCOOP MiraLax 17 GM/SCOOP 03/15/2021 12:00:00 AM EDT active MiraLax 17 GM/SCOOP eCW1 ([facility]) POLYETHYLENE GLYCOL 3350 142 MG/ML Oral Solution [Carlene lax] MiraLax 17 GM/SCOOP MiraLax 17 GM/SCOOP 03/15/2021 12:00:00 AM EDT active MiraLax 17 GM/SCOOP eCW1 ([facility]) Docusate Sodium 100 MG Oral Capsule [Colace] Colace 100 MG C olace 100 MG 03/15/2021 12:00:00 AM EDT 1.0 {capsule} active Colace 100 MG eCW1 ([facility]) Docusate Sodium 100 MG Oral Capsule [Colace] Colace 100 MG C olace 100 MG 03/15/2021 12:00:00 AM EDT 1.0 {capsule} active Colace 100 MG eCW1 ([facility]) POLYETHYLENE GLYCOL 3350 142 MG/ML Oral Solution [Carlene lax] MiraLax 17 GM/SCOOP MiraLax 17 GM/SCOOP 03/15/2021 12:00:00 AM EDT active MiraLax 17 GM/SCOOP eCW1 ([facility]) POLYETHYLENE GLYCOL 3350 142 MG/ML Oral Solution [Carlene lax] MiraLax 17 GM/SCOOP MiraLax 17 GM/SCOOP 03/15/2021 12:00:00 AM EDT active MiraLax 17 GM/SCOOP eCW1 ([facility]) POLYETHYLENE GLYCOL 3350 142 MG/ML Oral Solution [Carlene lax] MiraLax 17 GM/SCOOP MiraLax 17 GM/SCOOP 03/15/2021 12:00:00 AM EDT active MiraLax 17 GM/SCOOP eCW1 ([facility]) POLYETHYLENE GLYCOL 3350 142 MG/ML Oral Solution [Carlene lax] MiraLax 17 GM/SCOOP MiraLax 17 GM/SCOOP 03/15/2021 12:00:00 AM EDT active MiraLax 17 GM/SCOOP eCW1 ([facility]) Docusate Sodium 100 MG Oral Capsule [Colace] Colace 100 MG C olace 100 MG 03/15/2021 12:00:00 AM EDT 1.0 {capsule} active Colace 100 MG eCW1 ([facility]) POLYETHYLENE GLYCOL 3350 142 MG/ML Oral Solution [Carlene lax] MiraLax 17 GM/SCOOP MiraLax 17 GM/SCOOP 03/15/2021 12:00:00 AM EDT active MiraLax 17 GM/SCOOP eCW1 ([facility]) POLYETHYLENE GLYCOL 3350 142 MG/ML Oral Solution [Carlene lax] MiraLax 17 GM/SCOOP MiraLax 17 GM/SCOOP 03/15/2021 12:00:00 AM EDT active MiraLax 17 GM/SCOOP eCW1 ([facility]) Docusate Sodium 100 MG Oral Capsule [Colace] Colace 100 MG C olace 100 MG 03/15/2021 12:00:00 AM EDT 1.0 {capsule} active Colace 100 MG eCW1 ([facility]) POLYETHYLENE GLYCOL 3350 142 MG/ML Oral Solution [Carlene lax] MiraLax 17 GM/SCOOP MiraLax 17 GM/SCOOP 03/15/2021 12:00:00 AM EDT active MiraLax 17 GM/SCOOP eCW1 ([facility]) POLYETHYLENE GLYCOL 3350 142 MG/ML Oral Solution [Carlene lax] MiraLax 17 GM/SCOOP MiraLax 17 GM/SCOOP 03/15/2021 12:00:00 AM EDT active MiraLax 17 GM/SCOOP eCW1 ([facility]) POLYETHYLENE GLYCOL 3350 142 MG/ML Oral Solution [Carlene lax] MiraLax 17 GM/SCOOP MiraLax 17 GM/SCOOP 03/15/2021 12:00:00 AM EDT active MiraLax 17 GM/SCOOP eCW1 ([facility]) Docusate Sodium 100 MG Oral Capsule [Colace] Colace 100 MG C olace 100 MG 03/15/2021 12:00:00 AM EDT 1.0 {capsule} active Colace 100 MG eCW1 ([facility]) POLYETHYLENE GLYCOL 3350 142 MG/ML Oral Solution [Carlene lax] MiraLax 17 GM/SCOOP MiraLax 17 GM/SCOOP 03/15/2021 12:00:00 AM EDT active MiraLax 17 GM/SCOOP eCW1 ([facility]) POLYETHYLENE GLYCOL 3350 142 MG/ML Oral Solution [Carlene lax] MiraLax 17 GM/SCOOP MiraLax 17 GM/SCOOP 03/15/2021 12:00:00 AM EDT active MiraLax 17 GM/SCOOP eCW1 ([facility]) POLYETHYLENE GLYCOL 3350 142 MG/ML Oral Solution [Carlene lax] MiraLax 17 GM/SCOOP MiraLax 17 GM/SCOOP 03/15/2021 12:00:00 AM EDT active MiraLax 17 GM/SCOOP eCW1 ([facility]) Docusate Sodium 100 MG Oral Capsule [Colace] Colace 100 MG C olace 100 MG 03/15/2021 12:00:00 AM EDT 1.0 {capsule} active Colace 100 MG eCW1 ([facility]) POLYETHYLENE GLYCOL 3350 142 MG/ML Oral Solution [Carlene lax] MiraLax 17 GM/SCOOP MiraLax 17 GM/SCOOP 03/15/2021 12:00:00 AM EDT active MiraLax 17 GM/SCOOP eCW1 ([facility]) POLYETHYLENE GLYCOL 3350 142 MG/ML Oral Solution [Carlene lax] MiraLax 17 GM/SCOOP MiraLax 17 GM/SCOOP 03/15/2021 12:00:00 AM EDT active MiraLax 17 GM/SCOOP eCW1 ([facility]) POLYETHYLENE GLYCOL 3350 142 MG/ML Oral Solution [Carlene lax] MiraLax 17 GM/SCOOP MiraLax 17 GM/SCOOP 03/15/2021 12:00:00 AM EDT active MiraLax 17 GM/SCOOP eCW1 ([facility]) Docusate Sodium 100 MG Oral Capsule [Colace] Colace 100 MG C olace 100 MG 03/15/2021 12:00:00 AM EDT 1.0 {capsule} active Colace 100 MG eCW1 ([facility]) Docusate Sodium 100 MG Oral Capsule [Colace] Colace 100 MG C olace 100 MG 03/15/2021 12:00:00 AM EDT 1.0 {capsule} active Colace 100 MG eCW1 ([facility]) POLYETHYLENE GLYCOL 3350 142 MG/ML Oral Solution [Carlene lax] MiraLax 17 GM/SCOOP MiraLax 17 GM/SCOOP 03/15/2021 12:00:00 AM EDT active MiraLax 17 GM/SCOOP eCW1 ([facility]) POLYETHYLENE GLYCOL 3350 142 MG/ML Oral Solution [Carlene lax] MiraLax 17 GM/SCOOP MiraLax 17 GM/SCOOP 03/15/2021 12:00:00 AM EDT active MiraLax 17 GM/SCOOP eCW1 ([facility]) POLYETHYLENE GLYCOL 3350 142 MG/ML Oral Solution [Carlene lax] MiraLax 17 GM/SCOOP MiraLax 17 GM/SCOOP 03/15/2021 12:00:00 AM EDT active MiraLax 17 GM/SCOOP eCW1 ([facility]) POLYETHYLENE GLYCOL 3350 142 MG/ML Oral Solution [Carlene lax] MiraLax 17 GM/SCOOP MiraLax 17 GM/SCOOP 03/15/2021 12:00:00 AM EDT active MiraLax 17 GM/SCOOP eCW1 ([facility]) POLYETHYLENE GLYCOL 3350 142 MG/ML Oral Solution [Carlene lax] MiraLax 17 GM/SCOOP MiraLax 17 GM/SCOOP 03/15/2021 12:00:00 AM EDT active MiraLax 17 GM/SCOOP eCW1 ([facility]) Docusate Sodium 100 MG Oral Capsule [Colace] Colace 100 MG C olace 100 MG 03/15/2021 12:00:00 AM EDT 1.0 {capsule} active Colace 100 MG eCW1 ([facility]) Docusate Sodium 100 MG Oral Capsule [Colace] Colace 100 MG C olace 100 MG 03/15/2021 12:00:00 AM EDT 1.0 {capsule} active Colace 100 MG eCW1 ([facility]) Docusate Sodium 100 MG Oral Capsule [Colace] Colace 100 MG C olace 100 MG 03/15/2021 12:00:00 AM EDT 1.0 {capsule} active Colace 100 MG eCW1 ([facility]) Docusate Sodium 100 MG Oral Capsule [Colace] Colace 100 MG C olace 100 MG 03/15/2021 12:00:00 AM EDT 1.0 {capsule} active Colace 100 MG eCW1 ([facility]) Bisacodyl 5 MG Delayed Release Oral Tablet bisacodyl 5 MG EC tablet bisacodyl 5 MG EC tablet 03/02/2021 12:00:00 AM EDT 10 mg Oral activ e Take 10 mg by mouth daily [facility] Inject Triamcinolone Acetonide 10 ML, [facility] 9776-5091-47 02/26/2021 12:00:00 AM EDT completed [facility] ([facility] Medication administered onsite Inject Dexamthosone Phosphate 97909-867-05 02/26/2021 12:00:00 A M EDT completed [facility] ([facility] Medication administered onsite Metoprolol Tartrate 25 MG Oral Tablet me toprolol tartrate (LOPRESSOR) 25 MG tablet metoprolol tartrate (LOPRESSOR) 25 MG tablet 02/26/2021 12:0 0:00 AM EDT active TAKE 1/2 TABLET BY MOUTH @8AM [facility] Prednisone 10 MG Oral Tablet Prednisone 02/12/2021 12:00:00 AM EDT completed [facility] ([facility] Clobetasol Propionate 0.5 MG/ML Topical Cream Clobetas ol Propionate 0.05 % Clobetasol Propionate 0.05 % 01/25/2021 12:00:00 AM EDT active Clobetasol Propionate 0.05 % eCW1 ([facility]) Clobetasol Propionate 0.5 MG/ML Topical Cream Clobetas ol Propionate 0.05 % Clobetasol Propionate 0.05 % 01/25/2021 12:00:00 AM EDT active Clobetasol Propionate 0.05 % eCW1 ([facility]) Clobetasol Propionate 0.5 MG/ML Topical Cream Clobetas ol Propionate 0.05 % Clobetasol Propionate 0.05 % 01/25/2021 12:00:00 AM EDT active Clobetasol Propionate 0.05 % eCW1 ([facility]) Clobetasol Propionate 0.5 MG/ML Topical Cream Clobetas ol Propionate 0.05 % Clobetasol Propionate 0.05 % 01/25/2021 12:00:00 AM EDT active Clobetasol Propionate 0.05 % eCW1 ([facility]) Clobetasol Propionate 0.5 MG/ML Topical Cream Clobetas ol Propionate 0.05 % Clobetasol Propionate 0.05 % 01/25/2021 12:00:00 AM EDT active Clobetasol Propionate 0.05 % eCW1 ([facility]) Clobetasol Propionate 0.5 MG/ML Topical Cream Clobetas ol Propionate 0.05 % Clobetasol Propionate 0.05 % 01/25/2021 12:00:00 AM EDT active Clobetasol Propionate 0.05 % eCW1 ([facility]) Clobetasol Propionate 0.5 MG/ML Topical Cream Clobetas ol Propionate 0.05 % Clobetasol Propionate 0.05 % 01/25/2021 12:00:00 AM EDT active Clobetasol Propionate 0.05 % eCW1 ([facility]) Clobetasol Propionate 0.5 MG/ML Topical Cream Clobetas ol Propionate 0.05 % Clobetasol Propionate 0.05 % 01/25/2021 12:00:00 AM EDT active Clobetasol Propionate 0.05 % eCW1 ([facility]) Betamethasone 0.5 MG/ML / Clotrimazole 10 MG/ML Topica l Cream Clotrimazole/Betamethasone Dipropionate 12/31/2020 12:00:00 AM EDT completed [facility] ([facility] Diclofenac Sodium 0.01 MG/MG Topical Gel Diclofenac Sodium 12/07/2020 12:00:00 AM EST active [facility] ([facility] Polymyxin B 28022 UNT/ML / Trimethoprim 1 MG/ML Ophtha lmic Solution Polymyxin B Sulfate/Trimethoprim Sulfate 11/17/2020 12:00:00 AM EST OPHT HALMIC active [facility] ([facility]) mometasone furoate 1 MG/ML Topical Cream Mometasone Furoate 11/15/2020 12:00:00 AM EST completed [facility] ([facility] Betamethasone 0.5 MG/ML Topical Cream Betamethasone Dipropio anjel 11/06/2020 12:00:00 AM EST active M [facility]ENT ([facility] Fluocinolone Acetonide 0.1 MG/ML Otic Solution [Jeremy ic] DermOtic 0.01 % DermOtic 0.01 % 08/07/2020 12:00:00 AM EST active DermOtic 0.01 % eCW1 ([facility]) Fluocinolone Acetonide 0.1 MG/ML Otic Solution [Jeremy ic] DermOtic 0.01 % DermOtic 0.01 % 08/07/2020 12:00:00 AM EST cho spended DermOtic 0.01 % eCW1 ([facility]) Fluocinolone Acetonide 0.1 MG/ML Otic Solution [Jeremy ic] DermOtic 0.01 % DermOtic 0.01 % 08/07/2020 12:00:00 AM EST active DermOtic 0.01 % eCW1 ([facility]) Fluocinolone Acetonide 0.1 MG/ML Otic Solution [Jeremy ic] DermOtic 0.01 % DermOtic 0.01 % 08/07/2020 12:00:00 AM EST active DermOtic 0.01 % eCW1 ([facility]) Fluocinolone Acetonide 0.1 MG/ML Otic Solution [Jeremy ic] DermOtic 0.01 % DermOtic 0.01 % 08/07/2020 12:00:00 AM EST active DermOtic 0.01 % eCW1 ([facility]) Fluocinolone Acetonide 0.1 MG/ML Otic Solution [Jeremy ic] DermOtic 0.01 % DermOtic 0.01 % 08/07/2020 12:00:00 AM EST active DermOtic 0.01 % eCW1 ([facility]) Fluocinolone Acetonide 0.1 MG/ML Otic Solution [Jeremy ic] DermOtic 0.01 % DermOtic 0.01 % 08/07/2020 12:00:00 AM EST cho spended DermOtic 0.01 % eCW1 ([facility]) Fluocinolone Acetonide 0.1 MG/ML Otic Solution [Jeremy ic] DermOtic 0.01 % DermOtic 0.01 % 08/07/2020 12:00:00 AM EST active DermOtic 0.01 % eCW1 ([facility]) Fluocinolone Acetonide 0.1 MG/ML Otic Solution [Jeremy ic] DermOtic 0.01 % DermOtic 0.01 % 08/07/2020 12:00:00 AM EST active DermOtic 0.01 % eCW1 ([facility]) Fluocinolone Acetonide 0.1 MG/ML Otic Solution [Jeremy ic] DermOtic 0.01 % DermOtic 0.01 % 08/07/2020 12:00:00 AM EST active DermOtic 0.01 % eCW1 ([facility]) Fluocinolone Acetonide 0.1 MG/ML Otic Solution [Jeremy ic] DermOtic 0.01 % DermOtic 0.01 % 08/07/2020 12:00:00 AM EST active DermOtic 0.01 % eCW1 ([facility]) Fluocinolone Acetonide 0.1 MG/ML Otic Solution [Jeremy ic] DermOtic 0.01 % DermOtic 0.01 % 08/07/2020 12:00:00 AM EST active DermOtic 0.01 % eCW1 ([facility]) Fluocinolone Acetonide 0.1 MG/ML Otic Solution [Jeremy ic] DermOtic 0.01 % DermOtic 0.01 % 08/07/2020 12:00:00 AM EST active DermOtic 0.01 % eCW1 ([facility]) Fluocinolone Acetonide 0.1 MG/ML Otic Solution [Jeremy ic] DermOtic 0.01 % DermOtic 0.01 % 08/07/2020 12:00:00 AM EST active DermOtic 0.01 % eCW1 ([facility]) Fluocinolone Acetonide 0.1 MG/ML Otic Solution [Jeremy ic] DermOtic 0.01 % DermOtic 0.01 % 08/07/2020 12:00:00 AM EST active DermOtic 0.01 % eCW1 ([facility]) Fluocinolone Acetonide 0.1 MG/ML Otic Solution [Jeremy ic] DermOtic 0.01 % DermOtic 0.01 % 08/07/2020 12:00:00 AM EST cho spended DermOtic 0.01 % eCW1 ([facility]) Fluocinolone Acetonide 0.1 MG/ML Otic Solution [Jeremy ic] DermOtic 0.01 % DermOtic 0.01 % 08/07/2020 12:00:00 AM EST active DermOtic 0.01 % eCW1 ([facility]) Fluocinolone Acetonide 0.1 MG/ML Otic Solution [Jeremy ic] DermOtic 0.01 % DermOtic 0.01 % 08/07/2020 12:00:00 AM EST active DermOtic 0.01 % eCW1 ([facility]) Fluocinolone Acetonide 0.1 MG/ML Otic Solution [Jeremy ic] DermOtic 0.01 % DermOtic 0.01 % 08/07/2020 12:00:00 AM EST cho spended DermOtic 0.01 % eCW1 ([facility]) Fluocinolone Acetonide 0.1 MG/ML Otic Solution [Jeremy ic] DermOtic 0.01 % DermOtic 0.01 % 08/07/2020 12:00:00 AM EST cho spended DermOtic 0.01 % eCW1 ([facility]) Fluocinolone Acetonide 0.1 MG/ML Otic Solution [Jeremy ic] DermOtic 0.01 % DermOtic 0.01 % 08/07/2020 12:00:00 AM EST active DermOtic 0.01 % eCW1 ([facility]) Sulfamethoxazole 800 MG / Trimethoprim 160 MG Oral Tab let Sulfamethoxazole/Trimethoprim DS 08/06/2020 12:00:00 AM EST ORAL active [facility] ([facility] linezolid 600 MG Oral Tablet Linezolid 08/06/2020 12:00:00 AM EST ORAL active [facility] ([facility] tramadol hydrochloride 50 MG Oral Tablet Tramadol HCL 08/01/2020 12:00:00 AM EDT active MEDENT (No [facility]) Mupirocin 0.02 MG/MG Topical Ointment Mupirocin 07/14/2020 12:00:00 AM EDT completed MEDENT ([facility], [facility]) POLYETHYLENE GLYCOL 3350 142 MG/ML Oral Solution [Miralax] M iralax 07/11/2020 12:00:00 AM EDT active M EDENT ([facility]) apixaban 5 MG Oral Tablet [Eliquis] ELIQUIS 5 MG TABS tablet ELIQUIS 5 MG TABS tablet 05/15/2020 12:00:00 AM EDT aborted TAKE TWO TABLETS BY MOUTH TWICE DAILY FOR ONE WEEK THEN ONE TABLET TWICE DAILY FOR 23 DAYS [facility] Mupirocin 0.02 MG/MG Topical Ointment mupirocin (BACTR OBAN) 2 % ointment mupirocin (BACTROBAN) 2 % ointment 04/12/2020 12:00:00 AM EDT aborted APPLY TO WOUND ON RIGHT FOOT ONCE DAILY [facility] Levothyroxine Sodium 0.075 MG Oral Table t levothyroxine (SYNTHROID, LEVOTHROID) 75 MCG tablet levothyroxine (SYNTHROID, LEVOTHROID) 75 MCG tablet 12:00:00 AM EST 1 {tbl} Oral aborted Take 1 tablet by mouth daily [facility] Aspirin 325 MG Delayed Release Oral Tablet aspirin EC 325 MG EC tablet aspirin EC 325 MG EC tablet 325 mg Oral aborted Frank e 325 mg by mouth daily [facility] Polyvinyl Alcohol 0.014 ML/ML Ophthalmic Solution polyvinyl alcohol (ARTIFICIAL TEARS) 1.4 % ophthalmic solution polyvinyl alcohol (ARTIFICIAL TEARS) 1.4 % ophthalmic solution 1 [drp] aborted Administer 1 drop to both eyes 2 (two) times a day [facility] Hydrocortisone 10 MG/ML Topical Cream hydrocortisone 1 % cream hydrocortisone 1 % cream Topical aborted Apply topicall y 2 (two) times a day [facility] Acetaminophen 500 MG Oral Tablet acetaminophen (TYLENO L) 500 MG tablet acetaminophen (TYLENOL) 500 MG tablet 1000 mg Oral aborted Take 1,000 mg by mouth every 6 (six) hours as needed for pain [facility] ammonium lactate 120 MG/ML Topical Lotio n ammonium lactate (LAC-HYDRIN) 12 % lotion ammonium lactate (LAC-HYDRIN) 12 % lotion 1 {appli cation} Topical aborted Apply 1 application topicall y daily as needed for dry skin [facility] Insurance Providers Payer name Policy type / Coverage type Policy ID Covered constitution party ID Covered constitution party's relationship to uribe Policy Uribe Plan Information HMOBLUE OPTION 2 [id number] 1 [id number] HMOBLUE OPTION 2 [id number] 1 [id number] Medicaid [facility] Part B [id number] .[id number] Self [id number] Medicaid [facility] Part B [id number] .991.460581.0 Self [id number] [place] [id number] 2.0.1.708668.3.227.99 .991.514937.0 Self [id number] [place] [id number] MRN.[id number] Self [id number] [place] [id number] 2.0.1.217135.3.227.99 .991.576262.0 Self [id number] [place] [id number] MRN.[id number] Self [id number] [place] [id number] 2.0.1.495945.3.227.99 .991.677678.0 Self [id number] [place] [id number] 2.0.1.239882.3.227.99 .991.446625.0 Self [id number] [place] [id number] 2.0.1.891583.3.227.99 .991.840686.0 Self [id number] [place] [id number] 2.0.1.622281.3.227.99 .991.598856.0 Self [id number] [place] [id number] 2.0.1.290640.3.227.99 .991.141223.0 Self [id number] [place] [id number] MRN.[id number] Self [id number] [place] [id number] 2.0.1.527318.3.227.99 .991.702777.0 Self [id number] [place] [id number] Self BS Moe Hmo Blue Option Medigap Part B [id number] Self [id number] BS Moe Hmo Blue Option Medigap Part B [id number] 2.0.1.871278.3.227.99.991.599924.0 Self [id number] [employer]oe [employer]mo [employer] Option Medigap Part B [id number] 2.0.1.836996.3.227.99.991.756841.0 Self [id number] BS Moe [employer]mo Blue Option Medigap Part B [id number] Self [id number] [employer]oe [employer]mo [employer] Option Medigap Part B [id number] 2..1.134390.3.227.99.991.998684.0 Self [id number] [employer]oe [employer]mo [employer] Option Medigap Part B [id number] 2...718323.3.227.99.991.462651.0 Self [id number] BS Moe [employer] Medigap Part B [id number] 2...952102.3.227.99.991.550535.0 Self [id number] BS Moe [employer]mo [employer] Medigap Part B [id number] 2..1.820433.3.227.99.991.090649.0 Self [id number] BS [employer]oe [employer] Option Medigap Part B [id number] 2..1.546256.3.227.99.991.578722.0 Self [id number] BS Moe [employer] Medigap Part B [id number] 2..1.615689.3.227.99.991.490002.0 Self [id number] [employer]oe [employer] Medigap Part B [id number] Self [id number] [employer] Moe [employer] Medigap Part B [id number] 840.1.461744.3.227.99.991.767452.0 Self [id number] [employer] Medigap Part B [id number] Self [id number] BS Moe [employer] Option Medigap Part B [id number] .1.042948.3.227.99.991.819143.[id number] [facility] Community Plan Commercial [id number] 840.1.762495.3.227.99.177.41796.0 Self [id number] [facility] I [id number] Self [id number] [facility] Community Plan Commercial [id number] Self [id number] [facility] Community Plan Commercial [id number] Self [id number] [facility] Hmo Commercial [id number] Self [facility] I [id number] Self [id number] [facility] Hmo Commercial [id number] Self [id number] [facility] MEDICAID [id number] Kisha [id number] 33 [facility] MEDICAID [id number] Kisha [id number] 33 [facility] COMMUNITY PLAN MCDHMO [id number] SP [id number] [facility] COMMUNITY PLAN MCDHMO [id number] SP [id number] [facility] MEDICAID [id number] 1 [facility] COMMUNITY PLAN MCDHMO [id number] SP [id number] [facility] COMMUNITY PLAN MCDHMO [id number] SP [id number] [facility] Community Plan Commercial [id number] 7.99.1209.4131.0 Self [id number] [facility] COMMUNITY PLAN MCDHMO [id number] SP [id number] [facility] Maintenance [facility] (HMO) [id number] 2.16.840.1.744256.3.227.99.1767.62477.0 Self [id number] ANSI-Medicaid [id number] ANSI-Medicaid [id number] ANSI-Medicaid [id number] ANSI-Medicaid [id number] ANSI-Medicaid [id number] ANSI-Medicaid [id number] ANSI-Medicaid [id number] ANSI-Medicaid [id number] ANSI-Medicaid [id number] ANSI-Medicaid [id number] ANSI-Medicaid [id number] ANSI-Medicaid [id number] ANSI-Medicaid [id number] ANSI-Medicaid [id number] ANSI-Medicaid [id number] ANSI-Medicaid [id number] ANSI-Medicaid [id number] ANSI-Medicaid [id number] ANSI-Medicaid [id number] ANSI-Medicaid [id number] ANSI-Medicaid [id number] ANSI-Medicaid [id number] ANSI-Medicaid [id number] ANSI-Medicaid [id number] ANSI-Medicaid [id number] ANSI-Medicaid [id number] ANSI-Medicaid [id number] ANSI-Medicaid [id number] ANSI-Medicaid [id number] ANSI-Medicaid [id number] [facility] [id number] 2.16.840.1.261128.3.227.99.7286.86402.0 Self [id number] ANSI-Medicaid [id number] ANSI-Medicaid [id number] ANSI-Medicaid [id number] ANSI-Medicaid [id number] ANSI-Medicaid [id number] ANSI-Medicaid [id number] ANSI-Medicaid [id number] ANSI-Medicaid [id number] ANSI-Medicaid [id number] ANSI-Medicaid [id number] ANSI-Medicaid [id number] ANSI-Medicaid [id number] ANSI-Medicaid [id number] ANSI-Medicaid [id number] ANSI-Medicaid [id number] ANSI-Medicaid [id number] ANSI-Medicaid [id number] ANSI-Medicaid [id number] ANSI-Medicaid [id number] ANSI-Medicaid [id number] ANSI-Medicaid [id number] ANSI-Medicaid [id number] ANSI-Medicaid [id number] ANSI-Medicaid [id number] ANSI-Medicaid [id number] ANSI-Medicaid [id number] [facility] Health Maintenance Organization ([facility] [id number] 2.16.840.1.858784.3.227.99.1767.27123.0 Self [id number] ANSI-Medicaid [id number] ANSI-Medicaid [id number] ANSI-Medicaid [id number] ANSI-Medicaid [id number] ANSI-Medicaid [id number] ANSI-Medicaid [id number] ANSI-Medicaid [id number] ANSI-Medicaid [id number] [facility] Maintenance [facility] ([facility]) 1030 [id number] 2.16.840.1.440052.3.227.99.8646.99841.0 Self [id number] ANSI-Medicaid [id number] ANSI-Medicaid [id number] ANSI-Medicaid [id number] ANSI-Medicaid [id number] [facility] ([facility]) [id number] 2.16.840.1.307927.3.227.99.8646.79078.0 Self [id number] ANSI-Medicaid [id number] ANSI-Medicaid [id number]-[id number] ANSI-Medicaid [id number] ANSI-Medicaid [id number] ANSI-Medicaid [id number] ANSI-Medicaid [id number] ANSI-Medicaid [id number] ANSI-Medicaid [id number] ANSI-Medicaid [id number] ANSI-Medicaid [id number] ANSI-Medicaid [id number] ANSI-Medicaid [id number] [facility] Health Maintenance Organization ([facility]) 1030 [id number] 2.16.840.1.920761.3.227.99.8646.98291.0 Self [id number] ANSI-Medicaid [id number] ANSI-Medicaid [id number] ANSI-Medicaid [id number] [facility] Health Maintenance Organization ([facility]) [id number] 2.16.840.1.560879.3.227.99.1767.24147.0 Self [id number] ANSI-Medicaid [id number] ANSI-Medicaid [id number]-[id number] ANSI-Medicaid [id number] ANSI-Medicaid [id number] ANSI-Medicaid [id number] ANSI-Medicaid [id number] [facility] [id number] ANSI-Medicaid [id number] ANSI-Medicaid [id number] ANSI-Medicaid [id number] ANSI-Medicaid [id number] ANSI-Medicaid [id number] ANSI-Medicaid [id number] ANSI-Medicaid [id number] ANSI-Medicaid [id number] ANSI-Medicaid [id number] [facility] MEDICAID PI PI ANSI-Medicaid [id number] ANSI-Medicaid [id number] ANSI-Medicaid [id number] ANSI-Medicaid [id number] ANSI-Medicaid [id number] ANSI-Medicaid [id number] ANSI-Medicaid [id number] ANSI-Medicaid [id number] ANSI-Medicaid [id number] ANSI-Medicaid [id number] [facility] Health Maintenance Organization ([facility] [id number] Self [id number] ANSI-Medicaid [id number] ANSI-Medicaid [id number] ANSI-Medicaid [id number] ANSI-Medicaid [id number] ANSI-Medicaid [id number] ANSI-Medicaid [id number] ANSI-Medicaid [id number] ANSI-Medicaid [id number] ANSI-Medicaid [id number] ANSI-Medicaid [id number] ANSI-Medicaid [id number] ANSI-Medicaid [id number] ANSI-Medicaid [id number] ANSI-Medicaid [id number] ANSI-Medicaid [id number] ANSI-Medicaid [id number] ANSI-Medicaid [id number] ANSI-Medicaid [id number] ANSI-Medicaid [id number]-[id number] [facility] Health Maintenance Organization ([facility] [id number] [facility] [id number] [facility] Health Maintenance Organization (O) [id number] Self [id number] [facility] O [id number] S [id number] [facility] Health Maintenance Organization (HMO) [id number] Self [id number] [facility] COMMUNITY PLAN [facility] [id number] SP [id number] [facility] Health Maintenance Organization (HMO) [id number] Self [id number] [facility] Health Maintenance Organization (O) [id number] Self [id number] [facility] MEDICAID [facility] [id number] S [id number] [facility] [id number] SP [id number] [facility] COMMUNITY PLAN [facility] [id number] SP [id number] [facility] Health Maintenance Organization (HMO) [id number] Self [facility] Health Maintenance Organization (HMO) [id number] Self MEDICAID [id number] [facility] P UNAVAILABLE [id number] C UNAVAILABLE [employer] [facility] PLAN [id number] SP [id number] [employer] P [id number] S [id number] [employer] BC[employer] P [id number] S [id number] EXCE[employer] BCBS P UNAVAILABLE [id number] [place] 3 [id number] N BLUE [employer]OSS [employer] PLAN [id number] SP [id number] SELF PAY 2 UNAVAILABLE 1 UNAVAILA BLE ANSI-Medicaid [id number] [facility] [id number] SP [id number] [facility] COMMUNITY PLAN [facility] [id number] SP [id number] [employer] COMMUNITY PLAN XIX [id number] 18 [id number] [facility](MCAID) O [id number] S [id number] [facility] [id number] SP [id number] [facility] [id number] SP [id number] MEDICAID M [id number] S [id number] ANSI-Medicaid [id number] ANSI-Medicaid [id number] ANSI-Medicaid [id number] ANSI-Medicaid [id number] ANSI-Medicaid [id number] ANSI-Medicaid [id number] ANSI-Medicaid [id number] ANSI-Medicaid [id number] ANSI-Medicaid [id number] ANSI-Medicaid [id number] ANSI-Medicaid [id number] ANSI-Medicaid [id number] ANSI-Medicaid [id number] ANSI-Medicaid [id number] ANSI-Medicaid [id number] ANSI-Medicaid [id number] ANSI-Medicaid [id number] ANSI-Medicaid [id number] ANSI-Medicaid [id number] ANSI-Medicaid [id number] ANSI-Medicaid [id number] [facility] ([facility] [id number] Self [id number] [facility] ([facility]) [id number] Self [id number] ANSI-Medicaid [id number] ANSI-Medicaid [id number] ANSI-Medicaid [id number] ANSI-Medicaid [id number] ANSI-Medicaid [id number] ANSI-Medicaid [id number] ANSI-Medicaid [id number] [facility]-Medicaid [id number] [facility]-Medicaid [id number] [facility]-Medicaid [id number] [facility]-Medicaid [id number] [facility]-Medicaid [id number] [facility]-Medicaid [id number] ANSI-Medicaid [id number] [facility] Maintenance [facility] ([facility]) [id number] [facility] [id number] Problems, Conditions, and Diagnoses Code Display Name Description Problem Type Effective Dates Data Source(s) I10 Essential (primary) hypertension Essential (primary) h ypertension Diagnosis 05/31/2021 07:40:13 AM EDT [facility] E78.5 Hyperlipidemia, unspecified Hyperlipidemia, unspecifie d Diagnosis 05/31/2021 07:40:13 AM EDT [facility] I25.10 Atherosclerotic heart diseas e of [place] coronary artery without angina pectoris Atherosclerotic heart disease of [place] Diagnosis 05/31/2021 07:40:13 AM EDT [facility] G47.30 Sleep apnea, unspecified Sleep apnea, unspecified Diag nosis 04/19/2021 12:58:45 PM EDT [facility] I31.3 Pericardial effusion (noninflammatory) P ericardial effusion (noninflammatory) Diagnosis 04/19/2021 12:58:45 PM EDT [facility] F41.8 Other specified anxiety disorders Other specifie d anxiety disorders Diagnosis 04/19/2021 12:58:45 PM EDT [facility] K21.9 Gastro-esophageal reflux disease without esophagitis Gastro-esophageal reflux disease without Diagnosis 04/19/2021 12:58:45 PM EDT [facility] E03.9 Hypothyroidism, unspecified Hypothyroidism, unspecifie d Diagnosis 04/19/2021 12:58:45 PM EDT [facility] Z1152 ENCOUNTER FOR SCREENING FOR COVID-19 ENCOUNTER F OR SCREENING FOR COVID-19 Diagnosis 03/29/2021 01:56:00 PM EDT [facility] Z6842 Body mass index [BMI] 45.0-49.9, adult B tameka mass index [BMI] 45.0-49.9, adult Diagnosis 03/29/2021 01:56:00 PM EDT [facility] J9811 Atelectasis Atelectasis Diagnosis 03/29/2021 01:56:00 PM EDT [facility] J90 Pleural effusion, not elsewhere classifi ed Pleural effusion, not elsewhere classified Diagnosis 03/29/2021 01:56:00 PM EDT [facility] R600 Localized edema Localized edema Diagnosis 03/29/2021 01:5 6:00 PM EDT [facility] E039 Hypothyroidism, unspecified Hypothyroidism, unspecifie d Diagnosis 03/29/2021 01:56:00 PM EDT [facility] E7800 Pure hypercholesterolemia, unspecified P ure hypercholesterolemia, unspecified Diagnosis [facility] Obesity, unspecified Obesity, unspecified Diagnosis 03/29/2021 01:56:00 PM EDT [facility] I2510 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 Diagnosis 03/29/2021 01:56:00 PM EDT [facility] Z951 Presence of aortocoronary bypass graft P resence of aortocoronary bypass graft Diagnosis 03/29/2021 01:56:00 PM EDT [facility] R0789 Other chest pain Other chest pain Diagnosis 03/29/2021 01 :56:00 PM T [facility] Y[address] or not applicable Unspecified place or not applicable Diagnosis 03/22/2021 04:02:00 PM [facility] J67498 Latex allergy status Latex allergy status Diagnosis 03/22/2021 04:02:00 PM [facility] N42299 Personal history of nicotine dependence Personal history of nicotine dependence Diagnosis 03/22/2021 04:02:00 PM [facility] [id number] Sprain of unspecified ligament of right ankle, initial encounter Sprain of unspecified ligament of right ankle, initial encounter Diagnosis 03/22/2021 04:02:00 PM [facility] Q54442 Pain in right ankle and joints of right foot Pain in right ankle and joints of right foot Diagnosis 03/22/2021 04:02:00 PM T [facility] R00.2 Palpitations Palpitations Diagnosis 07/03/2020 11:53:21 A M EDT [facility] L23.9 [id number] Allergic contact dermatitis, unspecified trigger Problem 06/28/2021 12:00:00 AM EDT eCW1 ([facility]) S93.401D Sprain of ankle Sprain of ankle Problem 04/18/2021 12:0 0:00 AM EDT [facility] M21.6x1 Pronation Pronation Problem 02/26/2021 12:00:00 AM ED T [facility] ([facility] M72.2 Plantar fascial fibromatosis Plantar fascial fibromato sis Problem 02/26/2021 12:00:00 AM EDT [facility] ([facility] M47.817 [id number] Arthritis of lumbosacral spine Problem 02/12/2021 12:00:00 AM EDT eCW1 ([facility]) G89.29 Chronic pain Other chronic pain Problem 02/04/2021 12:0 0:00 AM EDT eCW1 ([facility]) L84 Callosity Callosity Problem 02/03/2021 12:00:00 AM ED T [facility] ([facility] K76.89 [id number] Liver cyst Problem 01/25/2021 12:00:00 AM ED T eCW1 ([facility]) M20.41 [id number] Other hammer toe(s) (acquired), right cherelle t Problem 01/08/2021 12:00:00 AM EDT eCW1 ([facility]) Z48.89 Convalescence after surgery Convalescence after surger y Problem 08/20/2020 12:00:00 AM EST - 12/20/2020 12:00:00 AM EDT [facility] ([facility] S31.819D [id number] Unspecified open wou nd of right buttock, subsequent encounter Problem 08/09/2020 12:00:00 AM EST eCW1 ([facility]) M46.1 [id number] Sacroiliitis Problem 08/08/2020 12:00:00 AM EST eCW1 ([facility]) H60.93 1936502 Inflammation of both ear canals Problem 08/07/2020 12:00:00 AM EST eCW1 ([facility]) S31.819A [id number] Wound of right buttock, initial encounter Problem 07/26/2020 12:00:00 AM EDT eCW1 ([facility]) Surgeries/Procedures Procedure Description Date Indications Data Source(s) OFFICE OUTPATIENT VISIT 15 MINUTES 07/19/2021 12:00:00 AM EDT [facility] ([facility]) OFFICE OUTPATIENT VISIT 15 MINUTES 07/03/2021 12:00:00 AM EDT [facility] ([facility]) OFFICE OUTPATIENT NEW 45 MINUTES 07/03/2021 12:00:00 A M EDT [facility] ([facility]) OFFICE OUTPATIENT VISIT 10 MINUTES 07/02/2021 12:00:00 AM EDT [facility] Medication: 0.9 % Sodium Chloride IL 06/28/2021 12:00: 00 AM EDT eCW1 ([facility]) Injection, triamcinolone acetonide, not otherwise specified , 10 mg 06/28/2021 12:00:00 AM EDT eCW1 ([facility]) OFFICE OUTPATIENT VISIT 25 MINUTES 06/21/2021 12:00:00 AM EDT [facility] ([facility]) PHYSICIAN TELEPHONE EVALUATION 11-20 MIN 06/21/2021 12 :00:00 AM EDT [facility] ([facility]) MRI UPPER EXTREMITY OTH THAN JT W/O CONTR MATRL 2020 12:00:00 AM EDT [facility] ([facility], ) MRI UPPER EXTREMITY OTH THAN JT W/O CONTR MATRL 2020 12:00:00 AM EDT [facility] ([facility], ) RADEX HAND MINIMUM 3 VIEWS 06/12/2021 12:00:00 AM EDT [facility] ([facility]) OFFICE OUTPATIENT VISIT 15 MINUTES 06/12/2021 12:00:00 AM EDT [facility] ([facility]) INJECTION 1 TENDON SHEATH/LIGAMENT APONEUROSIS 021 12:00:00 AM EDT [facility] ([facility] OFFICE OUTPATIENT VISIT 10 MINUTES 06/04/2021 12:00:00 AM EDT [facility] ([facility] OFFICE OUTPATIENT VISIT 15 MINUTES 05/23/2021 12:00:00 AM EDT [facility] ([facility], ) APPLICATION CAST ELBOW FINGER SHORT ARM 05/21/2021 12: 00:00 AM EDT [facility] ([facility]) RADEX HAND MINIMUM 3 VIEWS 05/21/2021 12:00:00 AM EDT [facility] ([facility]) OFFICE OUTPATIENT VISIT 15 MINUTES 05/21/2021 12:00:00 AM EDT [facility] ([facility]) OFFICE OUTPATIENT VISIT 25 MINUTES 05/21/2021 12:00:00 AM EDT [facility] ([facility]) OFFICE OUTPATIENT VISIT 15 MINUTES 05/02/2021 12:00:00 AM EDT [facility] ([facility] ECG ROUTINE ECG W/LEAST 12 LDS W/I&R <td>POCT AMB EKG</td><td>Routine</td><td>04/19/2021 1:42 PM EDT</td><td> Coronary artery disease involving [place] coronary artery of [place] heart without angina pectoris Benign essential hypertension</td><td> </td> 04/19/2021 01:42:00 PM EDT Benign essential hypertensionCoronary ar litzy disease involving [place] coronary artery of [place] heart without angina pectoris [facility] Benign essential hypertension Coronary artery disease involving [place] coronary artery of [place] heart without angina pectoris OFFICE OUTPATIENT VISIT 10 MINUTES 04/18/2021 12:00:00 AM EDT [facility] ([facility] RADEX FOOT COMPLETE MINIMUM 3 VIEWS 03/20/2021 12:00:0 0 AM EDT [facility] ([facility] OFFICE OUTPATIENT VISIT 10 MINUTES 03/20/2021 12:00:00 AM EDT [facility] ([facility] OFFICE OUTPATIENT VISIT 15 MINUTES 03/20/2021 12:00:00 AM EDT [facility] ([facility]) OFFICE OUTPATIENT VISIT 10 MINUTES 03/12/2021 12:00:00 AM EDT [facility] ([facility] INJECTION 1 TENDON SHEATH/LIGAMENT APONEUROSIS 2 021 12:00:00 AM EDT [facility] ([facility] OFFICE OUTPATIENT VISIT 10 MINUTES 02/26/2021 12:00:00 AM EDT [facility] ([facility] OFFICE OUTPATIENT VISIT 25 MINUTES 02/21/2021 12:00:00 AM EDT [facility] ([facility]) Strapping Foot Or Ankle 02/12/2021 12:00:00 AM EDT [facility] ([facility] OFFICE OUTPATIENT VISIT 10 MINUTES 02/12/2021 12:00:00 AM EDT [facility] ([facility] OFFICE OUTPATIENT VISIT 10 MINUTES 02/01/2021 12:00:00 AM EDT [facility] ([facility] OFFICE OUTPATIENT VISIT 25 MINUTES 12/26/2020 12:00:00 AM EDT [facility] ([facility], ) RADEX HAND MINIMUM 3 VIEWS 12/19/2020 12:00:00 AM EDT [facility] ([facility]) RADEX FOOT COMPLETE MINIMUM 3 VIEWS 12/07/2020 12:00:0 0 AM EST [facility] ([facility] OFFICE OUTPATIENT VISIT 15 MINUTES 12/07/2020 12:00:00 AM EST [facility] APPLICATION SHORT LEG CAST BELOW KNEE-TOE 11/28/2020 1 2:00:00 AM EST [facility] ([facility]) RADEX HAND MINIMUM 3 VIEWS 11/28/2020 12:00:00 AM EST [facility] ([facility]) RADEX HAND MINIMUM 3 VIEWS 11/14/2020 12:00:00 AM EST [facility] ([facility]) OFFICE OUTPATIENT VISIT 10 MINUTES 11/06/2020 12:00:00 AM EST [facility] OFFICE OUTPATIENT VISIT 25 MINUTES 11/02/2020 12:00:00 AM EST [facility] ([facility]) CLTX METACARPAL FX W/O MANIPULATION EACH BONE 10/29/19 12:00:00 AM EST [facility] ([facility]) OFFICE OUTPATIENT VISIT 15 MINUTES 10/29/2020 12:00:00 AM EST [facility] ([facility]) ARTHROCENTESIS ASPIR&/INJECTION SMALL JT/BURSA 021 12:00:00 AM EST [facility] ([facility]) OFFICE OUTPATIENT VISIT 15 MINUTES 10/12/2020 12:00:00 AM EST [facility] ([facility]) ARTHROCENTESIS ASPIR&/INJECTION MAJOR JT/BURSA 12:00:00 AM EST [facility] ([facility]) OFFICE OUTPATIENT VISIT 15 MINUTES 10/11/2020 12:00:00 AM EST [facility] ([facility]) FINE NEEDLE ASPIRATION W/O IMAGING GUIDANCE 07/26/2020 12:00:00 AM EDT eCW1 ([facility]) RADEX FOOT COMPLETE MINIMUM 3 VIEWS 07/23/2020 12:00:0 0 AM EDT [facility] Remove Support Implant Deep 07/18/2020 12:00:00 AM EDT [facility] Hammertoe Proc One Toe 07/18/2020 12:00:00 AM EDT [facility] Ostectomy/Exostectomy/Condylectomy Metatarsal Head 07/18/2020 12:00:00 AM EDT [facility] ([facility] Results ID Date Data Source [id number] 04/02/2021 10:21:00 [place] [address] PHONE: [phone] FAX: [phone] Name .................. : JUVE Hawthorne Acct Number.................. : [id number] ROOM. ................. : 103-1 MR Number ................... : [id number] Stay type ............. : O/P Discharge Date......... ... : Admit Date ......... : 03/29/21 Admit Phys .................... : JUANITA- Date of ....... : 1965 Family Phys ................... : [employer] Phone .................. : [phone] Age ................................ : 55 Film# .................. .:[id number] Sex ................................. : M Unsigned transcriptions are preliminary reports and do not represent a medical or legal document CHEST PORTABLE [id number] COMPLETE:03/29/21 16:55 KBO 57786 Reason(s): Chest Pain PORTABLE CHEST X-RAY: INDICATION: [...] rce(s) Supporting Document(s) ID Date Data Source [id number] 04/02/2021 10:20:00 AM EDT [facility] [address] [place] [address] PHONE: [phone] FAX: [phone] Name .................. : JUVE Hawthorne Acct Number.................. : [id number] ROOM. ................. : 103-1 Number ................... : [id number] Stay type ............. : O/P Discharge Date......... ... : Admit Date ......... : 03/29/21 Admit Phys .................... : COOKIE Date of ....... : 1965 Family Phys ................... : OROURKE NICOLE Phone .................. : [phone] Age ................................ : 55 Film# .................. .:[id number] Sex ................................. : M Unsigned transcriptions are preliminary reports and do not represent a medical or legal document [place] [id number] COMPLETE:03/29/21 14:34 KNB 36354 Reason(s): Pain, Limb VENOUS DOPPLER ULTRASOUND OF [...] rce(s) Supporting Document(s) ID Date Data Source [id number] 04/02/2021 10:19:00 [place] [address] PHONE: [phone] FAX: [phone] Name .................. : JUVE Hawthorne Acct Number.................. : [id number] ROOM. ................. : 103-1 Number ................... : [id number] Stay type ............. : O/P Discharge Date......... ... : Admit Date ......... : 03/29/21 Admit Phys .................... : COOKIE Date of ....... : 1965 Family Phys ................... : HAVEN RIVERA Phone .................. : [phone] Age ................................ : 55 Film# .................. .:[id number] Sex ................................. : M Unsigned transcriptions are preliminary reports and do not represent a medical or legal document CT CTA CHEST NON- CORONARY W Renzo [id number] COMPLETE:03/29/21 15:20 50173 Reason(s): right leg swelling shortness of breath [...] dose: 1222.2 mGycm Page 1 of 2 [facility] [address] [place] [address] PHONE: [phone] FAX: [phone] Name .................. : UJVE Hawthorne Acct Number.................. : [id number] ROOM. ................. : 103-1 MR Number ................... : [id number] Stay type ............. : O/P Discharge Date......... ... : Admit Date ......... : 03/29/21 Admit Phys .......... .......... : JUANITA-FALAN Date of ....... : 1965 Family Phys ................... : OROURKE NICOLE Phone .................. : [phone] Age ................................ : 55 Film# .................. .:[id number] Sex ................................. : M Unsigned transcriptions are preliminary reports and do not represent a medical or legal document CT CTA CHEST NON- CORONARY W C [id number] COMPLETE:03/29/21 15:20 95195 Reason(s): right leg swelling shortness of breath [...] rce(s) Supporting Document(s) ID Date Data Source [id number] 04/01/2021 06:43:00 PM EDT [facility] [address] [place] [address] RESPIRATORY CARE REPORT ==== ---------NAME------- NUMBER SEX AGE ADMIT DISC. XRAY# F/C TYPEPRENTICE DEANNA Hawthorne [id number] M 55 03/29/21 03/30/21 [id number] X6B O/P DATE OF : 1965 M/R# [id number] #: [id number] 103-1 LOCATION: EMERGENCY DEPT EKG [id number] COMP LETE:03/30/21 13:28 [place] [address] PHYSICIAN: COOKIE Name Value Range Interpretation Code Description Data Toma rce(s) Supporting Document(s) ID Date Data Source [id number] 04/01/2021 06:45:00 AM EDT [facility] Name Value Range Interpretation Code Description Data Toma rce(s) Supporting Document(s) Creatine kinase.MB [Mass/volume] in Serum or Plasma 4.1 ng/mL 0.0-10 .4 [facility] ID Date Data Source [id number] 03/30/2021 07:38:00 AM EDT [facility] Name Value Range Interpretation Code Description Data Toma rce(s) Supporting Document(s) Magnesium [Mass/volume] in Serum or Plasma 2.2 MG/DL 1.7 - 2.2 [facility] ID Date Data Source [id number] 03/30/2021 07:38:00 AM EDT [facility] Name Value Range Interpretation Code Description Data Toma rce(s) Supporting Document(s) CBC W/AUTOMATED DIFF [facility] COMPLETE BLOOD COUNT Leukocytes [#/volume] in Blood by Automated count 6.5 10^3/uL 4.2 - 1 1.0 [facility] Erythrocytes [#/volume] in Blood by Automated count 4.64 10^6/uL 4. 50 - 6.30 [facility] Hemoglobin [Mass/volume] in Blood 13.3 g/dL 14.0 - 16.0 L [facility] Hematocrit [Volume Fraction] of Blood by Automated count 41.7 % 4 1.0 - 51.0 [facility] Erythrocyte mean corpuscular volume [Entitic volume] by Auto mated count 89.9 fL 80.0 - 94.0 [facility] Erythrocyte mean corpuscular hemoglobin [Entitic mass] by Automated count 28.7 pg 27.0 - 34.0 [facility] Erythrocyte mean corpuscular hemoglobin concentration [Mass/volume] by Automated count 31.9 g/dL 31.0 - 36.0 [facility] Erythrocyte distribution width [Ratio] by Automated count 15.8 % 11.5 - 14.8 H [facility] Platelets [#/volume] in Blood by Automated count 257 10^3/uL 150 - 45 0 [facility] Platelet mean volume [Entitic volume] in Blood by Automated count 9.8 fL 7.4 - 10.4 [facility] Neutrophils/100 leukocytes in Blood by Automated count 63.7 % 37. 0 - 80.0 [facility] Lymphocytes/100 leukocytes in Blood by Manual count 20.6 % 25.0 - 40.0 L [facility] Monocytes/100 leukocytes in Blood by Automated count 13.6 % 3.0 - 8.0 H [facility] Eosinophils/100 leukocytes in Blood by Automated count 0.8 % 0.0 - 7.0 [facility] Basophils/100 leukocytes in Blood by Automated count 0.5 % 0.0 - 2.0 [facility] %IG 0.8 % 0.0 - 0.0 [facility] %NRBC 0.0 % 0.0 - 0.[address] [facility] al Neutrophils [#/volume] in Blood by Automated count 4.11 10^3/uL 2.00 - 6.90 [facility] Lymphocytes [#/volume] in Blood by Automated count 1.33 10^3/uL 0.60 - 3.40 [facility] Monocytes [#/volume] in Blood by Automated count 0.88 10^3/uL 0.00 - 0.90 [facility] Eosinophils [#/volume] in Blood by Automated count 0.05 10^3/uL 0.00 - 0.70 [facility] Basophils [#/volume] in Blood by Automated count 0.03 10^3/uL 0.00 - 0.20 [facility] #IG 0.05 10^3/uL 0.00 - 0.10 [facility] #NRBC 0.00 10^3/uL 0.00 - 0.00 [facility] MANUAL DIFF NOT INDICATED [facility] RBC MORPH NOT INDICATED [facility] spital ID Date Data Source [id number] 03/30/2021 07:38:00 AM EDT [facility] Name Value Range Interpretation Code Description Data Toma rce(s) Supporting Document(s) BASIC METABOLIC PANEL [facility] BASIC METABOLIC PANEL Sodium [Moles/volume] in Serum or Plasma 142 mEq/L 134 - 153 [facility] Potassium [Moles/volume] in Serum or Plasma 4.0 mEq/L 3.6 - 5.0 [facility] Chloride [Moles/volume] in Serum or Plasma 107 mEq/L 98 - 107 [facility] Carbon dioxide, total [Moles/volume] in Serum or Plasma 25 MEQ/L 22 - 30 [facility] Glucose [Mass/volume] in Serum or Plasma 98 MG/DL 70 - 99 [facility] BUN 18 MG/DL 7 - 21 [facility] Creatinine [Mass/volume] in Serum or Plasma 1.1 MG/DL 0.7 - 1.5 [facility] BUN/CREAT 16 8 - 27 [facility] Calcium [Mass/volume] in Serum or Plasma 8.8 MG/DL 8.4 - 10.2 [facility] Anion gap 3 in Serum or Plasma 10.0 mmol/L 8.0 - 16.0 [facility] AGE [address] [facility] al AFR AMER GFR >60 mL/min [facility] spital NON-AA GFR >60 mL/min [facility] ital Male GFR Inter prentation 20-49 yrs [...] >32 mL/min Normal ID Date Data Source [id number] 03/29/2021 01:56:00 PM EDT [facility] 1 OrderSheet [facility] Emergency Department [address] [place] [address] Phone #: ext- [phone] 03/29/2021 13:53 [id number] Sex: M : 1965 Age: 55yWEIGHT:140.7 kg [...] 20:54 StevenSymptomatic as Kristan Swain RNDefined by [facility]) ;(03/28/21) (Not FirstTest) (Hospitalized)(Not ) (NotResident inCongregate CareSetting) (NotEmployed inHealthcare Setting) 2 OrderSheet [facility] Emergency Department [address] [place] [address] Phone #: ext- [phone] 03/29/2021 13:53 Patient: DEANNA AN Sex: M [...] InitialedToradol IVP 30 mg 14:01 03/29/2021 14:15 Estefnaia(NOW x1) Kristan Swain RN ;GENERAL ORDERSOrder Description Priority Entered Acknowledged InitialedBlood Pressure 14:00 03/29/2021 14:08 [employer] Kristan Swain RN ;[employer] 14:00 03/29/2021 14:08 Estefania(continuous) Kristan Swain RN ;EKG 14:00 03/29/2021 14:08 Kristan Li RN ;NPO 14:00 03/29/2021 14:08 Kristan Li RN ;Obtain Old EKG 14:00 03/29/2021 14:08 Estefania 3 OrderSheet [facility] Emergency Department [address] [place] [address] Phone #: ext- [phone] 03/29/2021 13:53 Patient: [...] rce(s) Supporting Document(s) ID Date Data Source [id number] 03/29/2021 01:56:00 PM EDT [facility] 1 Medication Reconciliation Report [facility] Emergency Department [address] [place] [address] Phone #: ext- [phone] 03/29/2021 13:53 Patient: [...] administered: 14:15 03/29/2021 2 Medication Reconciliation Report [facility] Emergency Department [address] [place] [address] Phone #: ext- [phone] 03/29/2021 13:53 Patient: DEANNA AN Sex: M : 1965 Age: 55yThe following Medications were prescribed to the patient:None. Name Value Range Interpretation Code Description Data Toma rce(s) Supporting Document(s) ID Date Data Source [id number] 03/29/2021 01:56:00 PM EDT [facility] 1 Medication Administration Record [facility] Emergency Department [address] [place] [address] Phone #: ext- [phone] 03/29/2021 13:53 Patient: DEANNA AN Sex: M : 1965 Age: 55yWeight: 140.7 kgHeight/Length: 68 inBMI: 47.2ALLERGIES: adhesive talpe, Codeine Phosphate, Latex Date/Time Medication Administered Medication OrderedGiven TORADOL [IVP] (KETOROLAC Toradol IVP 30 mg (NOW x1)14:15 03/29/2021 TROMETHAMINE)Estefania Guerin RN Dose: 30 mg IVP Site: #1 right Name Value Range Interpretation Code Description Data Toma rce(s) Supporting Document(s) ID Date Data Source [id number] 03/29/2021 01:56:00 PM EDT [facility] 1 General Instructions [facility] Emergency Department [address] [place] [address] Phone #: ext [phone] 03/29/2021 13:53 Patient: DEANNA AN Sex: M : 1965 Age: 55yPrecordial chest pain characterized as "pressure".Acute coronary syndrome: stable angina.Right pedal edema.(Electronically signed by Kristan Swain 03/29/2021 23:36) Name Value Range Interpretation Code Description Data Toma rce(s) Supporting Document(s) ID Date Data Source [id number] 03/29/2021 01:56:00 PM EDT [facility] 1 Clinical Report - Nurses [facility] Emergency Department [address] [place] [address] Phone #: ext- [phone] 03/29/2021 13:53 Patient: DEANNA AN Sex: M : 1965 Age: 55yTRIAGEArrived by EMS. Historian: patient.Triage time: 13:52 03/29/2021. Acuity: LEVEL 3.Chief Complaint: CHEST PAIN.13:52 03/29/21. Alert. No acute distress.Onset. (10 am). He has had right leg pain.EMS Treatment TREATER HELPER:Received prehospital notification of patient arrival.SEPSIS SCREEN: SIRS [...] associated nausea,vomiting, diaphoresis or shortness of breath.Treatment TREATER HELPER:Recently seen at this facility and another facility. (Seen here for right foot ankle pain, splinted for possiblefracture to follow up with Ortho. Seen at [facility] x 2 left AMA due to long [...] mcg, daily. 2 Clinical Report - Nurses [facility] Emergency De partment [address] [place] [address] Phone #: ext- [phone] 03/29/2021 13:53 Patient: [...] Estefania Guerin RN.PROBLEMS:Back Pain.Hypercholesterolemia.Obesity.Hypothyroidism. --14:00 03/29/21 Damián oPon Fracture: RuleOut. --14:00 03/29/21 Estefania Guerin RN.ADDITIONAL SURGERIES:Carpal Tunnel Surgery.Finger removed.Screw in toe. --14:00 03/29/21 Estefania Guerin RNCardiac Surgery [11/13/2016]. (CABG x 4). --14:16 03/29/21 Estefania Guerin RNThe following entry was struck by Estefania Guerin RN, 14:16 03/29/21 Reason - duplicateHeart bypass. --16:47 03/27/20 Estefania Guerin RN.Ultdjcl59:52 03/29/21.PAST MEDICAL HX: Immunizations: up-to-date.SOCIAL HX: Former [...] had thoughts 3 Clinical Report - Nurses [facility] Emergency Department [address] [place] [address] Phone #: ext- [phone] 03/29/2021 13:53 ---- Patient: DEANNA AN Sex: [...] mL saline. --13:55 03/29/21 Estefania Guerin RN.PHYSICAL GNTANKLFVN36:00 03/29/21. Ambulatory to room.GENERAL / NEURO / [...] 03/29/21 Estefania Guerin RN.NURSING PROGRESS NOTES13:52 03/29/21. surveillance system monitor, NIBP monitor and pulse oximeter placed on patient; gambling monitor-Lead II; monitor alarms on. Patient gowned. Head of bed elevated. Two patient identifiers checked.Call light placed in reach. Side rails up x 2. Bed placed in lowest position. Brakes of bed on. Patientready for evaluation- ED physician notified. --14:03/29/21 Estefania Guerin RN 4 Clinical Report - Nurses [facility] Emergency Department [address] [place] [address] Phone #: ext- [phone] 03/29/2021 13:53 Patient: DEANNA AN Sex: M [...] room air. Pain level now:01/12. --15:41 03/29/21 MAIYTO Poon:15 03/29/21. BP: 137/87. MAP: 103. HR: [...] Guerin RN 5 Clinical Report - Nurses [facility] Emergency Dep artment [address] [place] [address] Phone #: ext- [phone] 03/29/2021 13:53 Patient: [...] to CT by wheelchair with mask and radiology interventional physician. --16:08 03/29/21 Estefania Guerin RN 16:15 03/29/21. Patient returned from CT by wheelchair with mask and radiology interventional physician. --17:07 03/29/21 Estefania Guerin RN 17:00 03/29/21. BP: 133/76. MAP: [...] RN 17:52 03/29/21. ( Hospitalist, Jerrica Poe BAND SPLICER in to examine patient for admission). --18:03 [...] medications given 6 Clinical Report - Nurses [facility] Emergency Department [address] [place] [address] Phone #: ext- [phone] 03/29/2021 13:53 Patient: DEANNA AN Sex: M [...] rce(s) Supporting Document(s) ID Date Data Source [id number] 03/29/2021 01:56:00 PM EDT [facility] 1 Clinical Report - Physicians/Mid Levels [facility] Emergency Department [address] [place] [address] Phone #: ext- [phone] 03/29/2021 13:53 [id number] Sex: M : 1965 Age: 55y Time [...] right lower extremity . he went to [facility] yesterday but let without being seen because [...] Medications: 2 Clinical Report - Physicians/Mid Levels [facility] Emergency Department [address] [place] [address] Phone #: ext- [phone] 03/29/2021 13:53 Patient: DEANNA AN [facility]#: [id number] Sex: M : 1965 Age: 55y Atorvastatin [...] Normal 3 Clinical Report - Physicians/Mid Levels [facility] Emergency Department [address] [place] [address] Phone #: ext- [phone] 03/29/2021 13:53 Patient: DEANNA AN Sex: M [...] Pain, LimbTRANSPORTATION: S IV? O2? Oxygen?(No) Room: [facility] w Diff: (LEONARDA: 03/29/2021 14:10) ( MsgRcvd [...] 8) 4 Clinical Report - Physicians/Mid Levels [facility] Emergency Department [address] [place] [address] Phone #: ext- [phone] 03/29/2021 13:53 Patient: [...] Male GFR Interprentation 20-49 yrs >60 mL/min Egrocl94-03 yrs >56 mL/min Normal 60-69 yrs >49 mL/min Normal 70-79yrs>42 mL/min Normal 80 and above >35 mL/min Normal Female GFRInterpretation 20-39 yrs >60 mL/min Normal 40-49 yrs >58 mL/minNormal 50-59 yrs >51 mL/min Normal 60-69 yrs >45 mL/min Kxjitt39-01 yrs >39 mL/min Normal 80 and above >32 mL/min NormalLipase: (LEONARDA: 03/29/2021 14:10) ( [facility] 03/29/2021 14:48) Final results Test Result Flag Units (Reference) LIPASE 16 U/L (13 - 60)Troponin-T: (LEONARDA: 03/29/2021 14:10) ( [facility] 03/29/2021 14:38) Final results Test Result Flag Units (Reference) TROPONIN T <0.01 NG/ML (0.00 - 0.10) TROPONIN T0.1 ng/ml Recommended as the clinical threshold value forTroponin T.D-Dimer: (LEONARDA: 03/29/2021 14:10) ( [facility] 03/29/2021 14:36) Final results Test Result Flag Units (Reference) D-DIMER QUANT 1.41 H ug/mL (0.27 - 0.50) 5 Clinical Report - Physicians/Mid Levels [facility] Emergency Department [address] [place] [address] Phone #: ext- [phone] 03/29/2021 13:53 -- [id number] Sex: M : 1965 Age: 55y PT/INR: (LEONARDA: 03/29/2021 14:10) ( MsgRcvd 03/29/2021 14:36) Final results Test Result Flag Units (Reference) PROTIME 13.2 SECONDS (11.0 - 15.5) INR 0.99 (0.93 - 1.23) \\BLDo\\INR INTERPRETATION\\BLDx\\ Therapeutic range for Coumadin and related oral anticoagulants. -International Normalized Ratio (INR): 2.0 - 3.0 for Venous Thrombosis, Pulmonary Embolus, Tissue heart valves, Acute VT, Atrial Fibrillation, Valvular heart disease and recurrent [...] stable angina. Right pedal edema.(Electronically signed by Kristan Swain 03/29/2021 23:36) 6Clinical Report - Physicians/Mid Levels [facility] Emergency Department [address] [place] [address] Phone #: ext- [phone] 03/29/2021 13:53 Patient: DEANNA AN Sex: M : 1965 Age: 55y Name Value Range Interpretation Code Description Data Toma rce(s) Supporting Document(s) ID Date Data Source [id number] 03/29/2021 07:08:00 PM EDT [facility] Name Value Range Interpretation Code Description Data Toma rce(s) Supporting Document(s) TROPONIN T <0.01 NG/ML 0.00 - 0.10 [facility] ospital TROPONIN T0.1 ng/ml Recommended as the c linical threshold value forTroponin T. ID Date Data Source [id number] 03/29/2021 05:50:00 PM EDT [facility] Name Value Range Interpretation Code Description Data [facility] rce(s) Supporting Document(s) COVID19 Case rprt NOT DETECTED [facility] This lab was ordered by [facility] and reported by [facility]. ID Date Data Source [id number] 03/29/2021 06:37:00 PM EDT [facility] NOT DETECTEDNOT DETECTED{ PROC EDURAL CONTROL VALID KIT LOT # _[id number] 03/29/21.DW . KIT EXP DATE _[id number] 03/29/21.DW . NORMAL RANGE IS NOT DETECTEDNEGATIVE [...] rce(s) Supporting Document(s) ID Date Data Source [id number] 03/29/2021 08:17:00 PM EDT [facility] Name Value Range Interpretation Code Description Data Toma rce(s) Supporting Document(s) CVE PANEL [facility] al LIPID PANEL Cholesterol [Mass/volume] in Serum or Plasma 146 MG/DL 131 - 200 [facility] Deprecated Triglyceride [Mass/volume] in Serum or Plasma 114 MG/DL 3 5 - 160 [facility] HDL 49 MG/DL 29 - [facility] Cholesterol in LDL [Mass/volume] in Serum or Plasma by Direc t assay 85 mg/dL 65 - 175 [facility] Cholesterol.total/Cholesterol in HDL [Mass Ratio] in Serum o r Plasma 3.0 3.4 - 4.9 L [facility] LDL/HDL 1.73 1.00 - 3.55 [facility] ital CVE RISK CHOL/HDL LDL/HDLMEN: 1/2 AVERAGE 3.43 1.00 AVERAGE 4.97 3.55 2X AVERAGE 9.55 6.25 3X AVERAGE 23.99 7.99WOMEN: 1/2 AVERAGE 3.27 1.47 AVERAGE 4.44 3.22 2X AVERAGE 7.05 5.03 3X AVERAGE 11.04 6.14 ID Date Data Source [id number] 03/29/2021 08:17:00 PM EDT [facility] Name Value Range Interpretation Code Description Data Toma rce(s) Supporting Document(s) Hemoglobin A1c/Hemoglobin.total in Blood 6.2 % 4.4 - 6.1 H [facility] {A1]{HB] ID Date Data Source [id number] 03/29/2021 05:43:00 PM EDT [facility] Name Value Range Interpretation Code Description Data Toma rce(s) Supporting Document(s) BNP 162 PG/ML 0 - 125 [facility] ID Date Data Source [id number] 03/29/2021 02:53:00 PM EDT [facility] Name Value Range Interpretation Code Description Data Toma rce(s) Supporting Document(s) CBC W/AUTOMATED DIFF [facility] COMPLETE BLOOD COUNT Leukocytes [#/volume] in Blood by Automated count 10.2 10^3/uL 4.2 - 11.0 [facility] Erythrocytes [#/volume] in Blood by Automated count 4.58 10^6/uL 4. 50 - 6.30 [facility] Hemoglobin [Mass/volume] in Blood 13.4 g/dL 14.0 - 16.0 L [facility] Hematocrit [Volume Fraction] of Blood by Automated count 41.5 % 4 1.0 - 51.0 [facility] Erythrocyte mean corpuscular volume [Entitic volume] by Auto mated count 90.6 fL 80.0 - 94.0 [facility] Erythrocyte mean corpuscular hemoglobin [Entitic mass] by Automated count 29.3 pg 27.0 - 34.0 [facility] Erythrocyte mean corpuscular hemoglobin concentration [Mass/volume] by Automated count 32.3 g/dL 31.0 - 36.0 [facility] Erythrocyte distribution width [Ratio] by Automated count 15.9 % 11.5 - 14.8 H [facility] Platelets [#/volume] in Blood by Automated count 255 10^3/uL 150 - 45 0 [facility] Platelet mean volume [Entitic volume] in Blood by Automated count 9.6 fL 7.4 - 10.4 [facility] Neutrophils/100 leukocytes in Blood by Automated count 74.6 % 37. 0 - 80.0 [facility] Lymphocytes/100 leukocytes in Blood by Manual count 12.7 % 25.0 - 40.0 L [facility] Monocytes/100 leukocytes in Blood by Automated count 11.1 % 3.0 - 8.0 H [facility] Eosinophils/100 leukocytes in Blood by Automated count 0.2 % 0.0 - 7.0 [facility] Basophils/100 leukocytes in Blood by Automated count 0.5 % 0.0 - 2.0 [facility] %IG 0.9 % 0.0 - 0.0 H [facility] %NRBC 0.0 % 0.0 - 0.0 [facility] Neutrophils [#/volume] in Blood by Automated count 7.62 10^3/uL 2.00 - 6.90 H [facility] Lymphocytes [#/volume] in Blood by Automated count 1.30 10^3/uL 0.60 - 3.40 [facility] Monocytes [#/volume] in Blood by Automated count 1.13 10^3/uL 0.00 - 0.90 H [facility] Eosinophils [#/volume] in Blood by Automated count 0.02 10^3/uL 0.00 - 0.70 [facility] Basophils [#/volume] in Blood by Automated count 0.05 10^3/uL 0.00 - 0.20 [facility] #IG 0.09 10^3/uL 0.00 - 0.10 [facility] #NRBC 0.00 10^3/uL 0.00 - 0.00 [facility] MANUAL DIFF SEE BELOW [facility] ital Segmented neutrophils/100 leukocytes in Blood by Manual count 75 % 37 - 80 [facility] BAND 2 % 0 - 5 [facility] %LYMPH 11 % 25 - 40 L [facility] %MONO 12 % 3 - 8 [facility] Nucleated erythrocytes/100 erythrocytes in Blood by Manual count 1 % [facility] RBC MORPH SEE BELOW [facility] { SICKLE CELL (NORMAL: NONE SEEN ) Platelet adequacy [Presence] in Blood by Light microscopy NORMAL NORMAL: NORMAL [facility] COMMENT: _PLATELET_CLUMPS_SEEN 03/29/21.1453.JSK. ID Date Data Source [id number] 03/29/2021 02:50:00 PM EDT [facility] Name Value Range Interpretation Code Description Data Toma rce(s) Supporting Document(s) COMPREHENSIVE METABOLIC PANEL [facility] COMPREHENSIVE METABOLIC PANEL Sodium [Moles/volume] in Serum or Plasma 140 mEq/L 134 - 153 [facility] Potassium [Moles/volume] in Serum or Plasma 4.2 mEq/L 3.6 - 5.0 [facility] Chloride [Moles/volume] in Serum or Plasma 104 mEq/L 98 - 107 [facility] Carbon dioxide, total [Moles/volume] in Serum or Plasma 26 MEQ/L 22 - 30 [facility] Glucose [Mass/volume] in Serum or Plasma 104 MG/DL 70 - 99 H [facility] BUN 17 MG/DL 7 - 21 [facility] Creatinine [Mass/volume] in Serum or Plasma 1.1 MG/DL 0.7 - 1.5 [facility] BUN/CREAT 15 8 - [address] [facility] al Protein [Mass/volume] in Serum or Plasma 6.6 G/DL 6.3 - 8.2 [facility] Albumin [Mass/volume] in Serum or Plasma 4.3 G/DL 3.9 - 5.0 [facility] Globulin [Mass/volume] in Serum by calculation 2.3 GM/DL 2.4 - 3.2 L [facility] A/G RATIO 1.9 0.8 - 2.0 [facility] Calcium [Mass/volume] in Serum or Plasma 9.6 MG/DL 8.4 - 10.2 [facility] Bilirubin.total [Mass/volume] in Serum or Plasma <0.7 MG/DL 0.2 - 1.3 [facility] Alkaline phosphatase [Enzymatic activity/volume] in Serum or Plasma 125 U/L 38 - 126 [facility] Aspartate aminotransferase [Enzymatic activity/volume] in Serum or Plasma 21 U/L 5 - 40 [facility] Alanine aminotransferase [Enzymatic activity/volume] in Seru m or Plasma 19 U/L 7 - 56 [facility] Anion gap 3 in Serum or Plasma 10.0 mmol/L 8.0 - 16.0 [facility] AGE 55 yrs [facility] NON-AA GFR >60 mL/min [facility] AFR AMER GFR >60 mL/min [facility] Male GFR In terprentation [...] >32 mL/min Normal ID Date Data Source [id number] 03/29/2021 02:48:00 PM EDT [facility] Name Value Range Interpretation Code Description Data Toma rce(s) Supporting Document(s) Lipase [Enzymatic activity/volume] in Serum or Plasma 16 U/L 13 - 60 [facility] ID Date Data Source [id number] 03/29/2021 02:38:00 PM EDT [facility] Value Range Interpretation Code Description Data Toma rce(s) Supporting Document(s) TROPONIN T <0.01 NG/ML 0.00 - 0.10 [facility] ospital TROPONIN T0.1 ng/ml Recommended as the c linical threshold value forTroponin T. ID Date Data Source [id number] 03/29/2021 02:36:00 PM EDT [facility] Value Range Interpretation Code Description Data Toma rce(s) Supporting Document(s) Fibrin D-dimer FEU [Mass/volume] in Platelet poor plasma 1.41 ug /mL 0.27 - 0.50 H [facility] ID Date Data Source [id number] 03/29/2021 02:36:00 PM EDT [facility] Name Value Range Interpretation Code Description Data Toma rce(s) Supporting Document(s) Prothrombin time (PT) 13.2 SECONDS 11.0 - 15.5 [facility] INR in Platelet poor plasma by Coagulation assay 0.99 0.93 - 1. 23 [facility] \\BLDo\\INR INTERPRETATION\\BLDx\\ Therapeutic range for Coumadin and related oral anticoagulants. - International Normalized Ratio (INR): 2.0 - 3.0 for Venous Thrombosis, Pulmonary Embolus, Tissue heart valves, Acute VT, Atrial Fibrillation, Valvular heart disease and recurrent Systemic Embolism. -International Normalized Ratio (INR): 2.5 - 3.5 for Mechanical Prosthetic valve. ID Date Data Source [id number] 03/26/2021 10:18:00 AM EDT [facility] [address] [place] [address] PHONE: [phone] FAX: [phone] Name .................. : JUVE Hawthorne Acct Number.................. : [id number] [facility] ................. [facility] Number ................... : [id number] Stay type ............. : E/R Discharge Date......... ... : 03/22/21 Admit Date ......... : 03/22/21 Admit Phys .................... : COONEYNORM Date of ....... : 1965 Family Phys ................... : HAVEN RIVERA Phone .................. : [phone] Age ................................ : 55 Film# .................. .:[id number] Sex ................................. : M Unsigned transcriptions are preliminary reports and do not represent a medical or legal document ANKLE AP & LATERAL RT [id number] COMPLETE:03/22/21 17:38 JLD [id number] Reason(s): Pain RIGHT ANKLE X-RAY: INDICATION: Pain. [...] By Ollie Stewart M.D. , 03/26/21 10:18, [facility] Transcribe Initials: DRE , Transcribe Date: 03/22/21 23:06, Dictation Date: Copy for: EMERGENCY DEPT via modem Copy for: 710 MED REC DISCHARGED Page 1 of 1 Name Value Range Interpretation Code Description Data Toma rce(s) Supporting Document(s) ID Date Data Source [id number] 03/26/2021 10:18:00 [place] [address] PHONE: [phone] FAX: [phone] Name .................. : JUVE Hawthorne Acct Number.................. : [id number] ROOM. ................. : VT-30 Number ................... : [id number] Stay type ............. : E/R Discharge Date......... ... : 03/22/21 Admit Date ......... : 03/22/21 Admit Phys .................... : COONEYNORM Date of ....... : 1965 Family Phys ................... : HAVEN RIVERA Phone .................. : [phone] Age ................................ : 55 Film# .................. .:[id number] Sex ................................. : M Unsigned transcriptions are preliminary reports and do not represent a medical or legal document FOOT COMPLETE-3 OR MORE RT [id number] COMPLETE:03/22/21 17:38 D [id number] Reason(s): Pain RIGHT FOOT X-RAY: INDICATION: Pain. [...] rce(s) Supporting Document(s) ID Date Data Source [id number] 03/22/2021 04:02:00 PM EDT [facility] 1 OrderSheet [facility] Emergency Department [address] [place] [address] Phone #: ext- [phone] 03/22/2021 16:01 Patient: [...] rce(s) Supporting Document(s) ID Date Data Source [id number] 03/22/2021 04:02:00 PM EDT [facility] 1 Medication Reconciliation Report [facility] Emergency Department [address] [place] [address] Phone #: ext- [phone] 03/22/2021 16:01 [id number] Sex: M : 1965 Age: 55yWeight: 140.6 [...] Home Medication information: 2 Medication Reconciliation Report [facility] Emergency Department [address] [place] [address] Phone #: ext- [phone] 03/22/2021 16:01 Patient: DEANNA AN Sex: M : 1965 Age: 55ypatientThe following Medications were given to the patient in the Emergency Department:None.The following Medications were prescribed to the patient:None. Name Value Range Interpretation Code Description Data Toma rce(s) Supporting Document(s) ID Date Data Source [id number] 03/22/2021 04:02:00 PM EDT [facility] 1 Medication Administration Record [facility] Emergency Department [address] [place] [address] Phone #: ext- [phone] 03/22/2021 16:01 Patient: DEANNA AN Sex: M : 1965 Age: 55yWeight: 140.6 kgHeight/Length: 68 inBMI: 47.1ALLERGIES: adhesive talpe, Codeine Phosphate, LatexDate/Time Medication Administered Medication Ordered Name Value Range Interpretation Code Description Data Toma rce(s) Supporting Document(s) ID Date Data Source [id number] 03/22/2021 04:02:00 PM EDT [facility] 1 General Instructions [facility] Emergency Department [address] [place] [address] Phone #: ext- [phone] 03/22/2021 16:01 Patient: DEANNA AN Sex: M : 1965 Age: 55ysprain right ankle.INSTRUCTIONSUse crutches. Wear splint. You may walk and bear weight as tolerated.(Please take tylenol and motrin for pain. please follow up with your chicken picker. use crutches as instructed.return if worse or [...] by patient. ADDITIONAL INFORMATION 2 General Instructions [facility] Emergency Department [address] [place] [address] Phone #: ext- [phone] 03/22/2021 16:01 Patient: [...] next 2 to 3 3 General Instructions [facility] Emergency Department [address] [place] [address] Phone #: ext- [phone] 03/22/2021 16:01 Patient: [...] splint gets wet, dry it with a physics department chair on a cool setting. You may use [id number] pain medicine to control pain, unless another [...] or splint develops cracks or breaks [employer]. [address] [place] [address]. All rights reserved. This information is not intended as asubstitute for professional medical care. Always follow your healthcare professional's instructions. You have been given the following additional information: Ankle Fracture 4 General Instructions [facility] Emergency Department [address] [place] [address] Phone #: ext- [phone] 03/22/2021 16:01 Patient: DEANNA AN Sex: M : 1965 Age: 55yYou may walk and bear weight as tolerated.(Electronically signed by Yohana Cason MD 03/23/2021 00:47) Name Value Range Interpretation Code Description Data Toma rce(s) Supporting Document(s) ID Date Data Source [id number] 03/22/2021 04:02:00 PM EDT [facility] 1 Clinical Report - Nurses [facility] Emergency Department [address] [place] [address] Phone #: ext [phone] 03/22/2021 16:01 Patient: DEANNA AN Sex: M [...] ft was so swollen. He waited in [facility] waiting room for hrs prior to coming here.). He has had swelling, redness and trouble walking. 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 SEPSIS SCREEN: SIRS SCREEN NEGATIVE. SEPSIS [...] Oxalate Oral 10 mg. --16:23 03/22/21 Marisela Bobo R.N. Escitalopram Oxalate Oral 20 mg. --16:24 03/22/21 Marisela Bobo R.N. Famotidine Oral 20 mg. --16:24 03/22/21 Marisela Bobo R.N. 2 Clinical Report - Nurses [facility] Emergency Department [address] [place] [address] Phone #: ext- [phone] 03/22/2021 16:01 Patient: [...] information source: the patient. --16:16 03/22/21 Marisela Bobo R.N.ADDITIONAL SURGERIES:Carpal Tunnel Surgery.Finger removed.Heart bypass.Screw in [...] impairments noted. 3 Clinical Report - Nurses [facility] Emergency Department [address] [place] [address] Phone #: ext- [phone] 03/22/2021 16:01 Patient: DEANNA AN Sex: M [...] Patient transported to radiology by wheelchair with radiology interventional physician. --16:34 03/22/21 Chuck Corbin R.N. 16:41 03/22/21. Patient returned from radiology by wheelchair with radiology interventional physician. --16:41 03/22/21 Chuck Corbin R.N. Patient fit with new crutches. Crutch training performed by nurse; the patient demonstrated proper use. --18:24 03/22/21 Deborah Fernández R.N.DISPOSITION / DISCHARGE Condition at departure: improved. No learning barriers present. Reviewed crutch walking, splint care and rest, ice, compression and elevation instructions. Patient verbalized understanding. Written instructions provided in Faroese. The patient was discharged home and u naccompanied at time of discharge. He left on crutches and via taxi. 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 --18:25 03/22/21 Deborah Fernández R.N. 4 Clinical Report - Nurses [facility] Emergency Department [address] [place] [address] Phone #: ext- [phone] 03/22/2021 16:01 Patient: [...] rce(s) Supporting Document(s) ID Date Data Source [id number] 03/22/2021 04:02:00 PM EDT [facility] 1 Clinical Report - Physicians/Mid Levels [facility] Emergency Department [address] [place] [address] Phone #: ext- [phone] 03/22/2021 16:01 Patient: [...] ft was so swollen. He waited in [facility] waiting room for hrs prior to coming [...] 07/14. 2 Clinical Report - Physicians/Mid Levels [facility] Emergency Department [address] [place] [address] Phone #: ext- [phone] 03/22/2021 16:01 Patient: DEANNA AN Sex: M [...] Exam FOOT COMPLETE-3 [place] [address] PHONE: [phone] FAX: [phone] Name .................. : JUVE Hawthorne Acct Number.................. : [id number] ROOM. ................. : VT-30 MR Number .. ................. : [id number] Stay type ............. : E/R Discharge Date......... ... : 03/22/21 Admit Date ......... : 03/22/21 Admit Phys .................... : COONEYNORM Date of ....... : 1965 Family Phys ................... : HAVEN RIVERA Phone .................. : [phone] Age ................................ : 55 Film# .................. .:[id number] Sex ................................. : M Unsigned transcriptions are preliminary reports and do not represent a medical or legal document FOOT COMPLETE-3 OR MORE [place] [id number] COMPLETE:03/22/21 17:38 [facility] [address] Reason(s): Pain Trauma/Injury RIGHT FOOT X-RAY: INDICATION: Pain. FINDINGS/IMPRESSION: Postoperative changes are noted in the second to with fusion across the PIP joint. There is no evidence of acute hardware complication. No fracture or dislocation is appreciated. No significant degenerative change. 3 Clinical Report - Physicians/Mid Levels [facility] Emergency Department [address] [place] [address] Phone #: ext- [phone] 03/22/2021 16:01 Patient: DEANNA AN Sex: M : 1965 Age: 55y Electronically Reviewed and Signed By MARISELA ROMERO [place] Transcribe Initials: DZ , Transcribe Date: 03/22/21 23:08, Dictation Date: <<REPDIST>> Page 1 of 1Ankle AP And LAT Right: (LEONARDA: 03/22/2021 16:21) ( MsgRcvd 03/22/2021 23:08) In ProgressANKLE APReason(s): PainTRANSPORTATION: WC IV? O2? Oxygen?(No) Room: ED Exam ANKLE AP //T// LATERAL RT [facility] [address] [place] [address] PHONE: [phone] FAX: [phone] Name .................. : JUVE Hawthorne Acct Number.................. : [id number] ROOM. ................. : [address] Number ................... : [id number] Stay type ............. : E/R Discharge Date......... ... : 03/22/21 Admit Date ......... : 03/22/21 Admit Phys .................... : [facility] Date of ....... : 1965 Family Phys ................... : OROURKE NICOLE Phone .................. : [phone] Age ................................ : 55 Film# .................. .:[id number] Sex ................................. : M Unsigned transcriptions are [...] DCTNAME SIGNDATESHEMAR Clinical Report - Physicians/Mid Levels [facility] Emergency Department [address] [place] [address] Phone #: wwv- [phone] 03/22/2021 16:01 Patient: DEANNA AN Sex: M [...] the boot he was given by his chicken picker does not fit. xray shows a possible [...] for pain. please follow up with your chicken picker. use crutches as instructed. return if worse [...] daily. 5 Clinical Report - Physicians/Mid Levels [facility] Emergency Department [address] [place] [address] Phone #: ext- [phone] 03/22/2021 16:01 Patient: [...] rce(s) Supporting Document(s) ID Date Data Source [id number] 03/09/2021 02:54:00 AM EDT [facility] Name Value Range Interpretation Code Description Data Toma rce(s) Supporting Document(s) SARS coronavirus 2 RNA [Presence] in Res piratory specimen by KIRK with probe detection NEGATIVE [facility] This lab was ordered by [facility] a nd reported by [facility]. ID Date Data Source [id number] 02/28/2021 06:02:00 PM EDT [facility] Name Value Range Interpretation Code Description Data Toma rce(s) Supporting Document(s) SARS coronavirus 2 RNA [Presence] in Res piratory specimen by KIRK with probe detection NEGATIVE [facility] This lab was ordered by [facility] a nd reported by [facility]. ID Date Data Source [id number] 01/17/2021 09:30:00 AM EDT [facility] Name Value Range Interpretation Code Description Data Toma rce(s) Supporting Document(s) SARS-CoV-2 (COVID-19) RNA [Presence] in Respiratory specimen by KIRK with probe detection Not Detected [facility] This lab was ordered by [facility] and reported by [facility]. ID Date Data Source [id number] 11/20/2020 12:00:00 AM EST eCW1 ([facility]) Name Value Range Interpretation Code Description Data Toma rce(s) Supporting Document(s) 24.0 30.0-100.0 eCW1 ([facility]) ID Date Data Source Basic Metabolic Profile (BMP) 11/20/2020 12:00:00 AM EST eCW 1 ([facility]) Name Value Range Interpretation Code Description Data Toma rce(s) Supporting Document(s) 81 70-100 eCW1 ([facility]) 1.29 0.70-1.30 eCW1 ([facility]) 143 136-145 eCW1 ([facility]) > 60.0 >56 eCW1 ([facility]) 10 7-18 eCW1 ([facility]) 109 98-107 eCW1 ([facility]) 4.4 3.5-5.1 eCW1 ([facility]) 29 21-32 eCW1 ([facility]) 9.1 8.5-10.1 eCW1 ([facility]) ID Date Data Source FREE T4 & TSH PANEL 11/20/2020 12:00:00 AM EST eCW1 ([facility]) Name Value Range Interpretation Code Description Data Toma rce(s) Supporting Document(s) 2.460 0.358-3.740 THYROID STIMULATING HORM ONE eCW1 ([facility]) 0.71 0.76-1.46 FREE T4 eCW1 ([facility]) ID Date Data Source [id number] 11/05/2020 09:50:00 AM EST [facility] ([facility]) Name Value Range Interpretation Code Description Data Toma rce(s) Supporting Document(s) Laboratory test finding (navigational concept) Laboratory test result [facility] ([facility]) ID Date Data Source [id number] 07/21/2020 11:01:24 PM EDT [facility] Name Value Range Interpretation Code Description Data Toma rce(s) Supporting Document(s) &PDF [facility] GIPZLr2zZcEFDbYs67/BOMymKQNep0QjSPboXPh1TGfhDYLjW7KzkOzzMKIFMV3KSPUMFIERJd7EYMwb 0b3 YnQCOiXmCEhSN5BT8tOAAzadQgnzR8hW0eWV7MFIZ+Kt6OZT9hh8YbBTk6HMIue6ZbSXoqFKk3R0NuyG YrmsSwNmqiaXLDSGHgUPGbD2lfnuk8oLXwQZO7Gq9VHbZjz9IlYUBiBEbOkc3wV2/TWBB+X2n/w5H2YY uUayUelawvmOGDwAf5vCqZMkVTPB5ieEAa5DEKl58h 2qFvDRjinaAgpxI7j2+Z+pQ1kuBEQRn//3aCpJBHztfr7eVVqbsQzT+/eepkw0yI5z/TkkNRVx36alDM WGgyNg9Hz/YJ7YezhP5YvBE+HubOAOvIj3Z8tB+oX7j6XnfvUutacGhMibvhZ8OVK7l4fZ3EHIi72ji5 k5tYch4QU615r3VWXrgx43796exKi98Q6+p9gu5z75 [file] ICAgICAgICAgICAgICAgICAgICAgICAgICAgICAgICAgICAgICAgICAgICAgICAgICAgICAgICAgICAg ICAgICAgICAgICAgICAgICAgICAgICAgDQogICAgICAgICAgICAgICAgICAgICAgICAgICAgICAgICAg ICAgICAgICAgICAgICAgICAgICAgICAgICAgICAgIC AgICAgICAgICAgICAgICAgICAgICAgICAgICAgICAgICAgDQogICAgICAgICAgICAgICAgICAgICAgIC AgICAgICAgICAgICAgICAgICAgICAgICAgICAgICAgICAgICAgICAgICAgICAgICAgICAgICAgICAgIC AgICAgICAgICAgICAgICAgDQogICAgICAgICAgICAg ICAgICAgICAgICAgICAgICAgICAgICAgICAgICAgICAgICAgICAgICAgICAgICAgICAgICAgICAgICAg ICAgICAgICAgICAgICAgICAgICAgICAgICAgDQogICAgICAgICAgICAgICAgICAgICAgICAgICAgICAg ICAgICAgICAgICAgICAgICAgICAgICAgICAgICAgIC AgICAgICAgICAgICAgICAgICAgICAgICAgICAgICAgICAgICAgDQogICAgICAgICAgICAgICAgICAgIC AgICAgICAgICAgICAgICAgICAgICAgICAgICAgICAgICAgICAgICAgICAgICAgICAgICAgICAgICAgIC AgICAgICAgICAgICAgICAgICAgDQogICAgICAgICAg ICAgICAgICAgICAgICAgICAgICAgICAgICAgICAgICAgICAgICAgICAgICAgICAgICAgICAgICAgICAg ICAgICAgICAgICAgICAgICAgICAgICAgICAgICAgDQogICAgICAgICAgICAgICAgICAgICAgICAgICAg ICAgICAgICAgICAgICAgICAgICAgICAgICAgICAgIC AgICAgICAgICAgICAgICAgICAgICAgICAgICAgICAgICAgICAgICAgDQogICAgICAgICAgICAgICAgIC AgICAgICAgICAgICAgICAgICAgICAgICAgICAgICAgICAgICAgICAgICAgICAgICAgICAgICAgICAgIC AgICAgICAgICAgICAgICAgICAgICAgDQogICAgICAg ICAgICAgICAgICAgICAgICAgICAgICAgICAgICAgICAgICAgICAgICAgICAgICAgICAgICAgICAgICAg YTXcSPKpLMFbNMRuEHIjJHUpPXChGKTxLYPrXXJzOEOrXSs3C2nxCNSaMZVzLI8yURl6Cw5+DQoNCmVu HIN5gaMikG8JMF6mq7PlSAkhBFGon7CiVRw7AR5CBV DoAUdlHE3XHJxvjj0YELBaEQHcyVVZh1vjPzUbMSX5SPCrDaxgAU9JWQKtH9ztukZfJAKpYRKSWWnwOA VGGD0GBlEzR4DrzF18BEGPGc0+DBaerxAzLukEEmT7JOHni2EzVBe4LF6NFSIjDSdwAQ2GOAYwwW5wTV qiTN1GRuZrZMHcXHLYQmKeT12ieRZdTWv5I4TiMzPk ZGVkRmlsZXMgPDwvTmFtZXMgWyBdDQogID4+ID4+RQtjYM8EOPdhclYyIKDbXx0POWDfGHK1AFIahYMq DgIoZYNWOOqpHH8FpJAmIWF6bA0xTOckLDZkZDHsJ7iYIjLhcDbhCK65eAjginBxjOGeNJy+Qf1MLV1a y5ZsMTj0qqQdCNjlFBG2SHiaHQShEDWrPWNiTEJ0YM N1TBFGGtFxEVLiYSXmLOdmBFNgJABfqt9XOHKrCJYcEuZeFlHoFRBpHTFnTSnrNIXwECK2Wtu2AWMuVO EiNR2RDwHkIUAuADVpCTRgDAWbMAVgic3OCADeXXFhSlYxZJNzIQGlMSRcYPytPYUoSRIxXeJbNIUyDW MqRN1OPcNjJRCgWTH4NoexUHEqMLBdrj5BBWTfUGSf DLWsCCEdZTFfMXMdYFvsAODpHQH5SAqmRCMrKMJgCT4IHoJjECRxPBNsWHIdSFCzFXBaea5ITCJyTCOm VWD2YbUkFEQvJHQmKTjtVFAlBLO4NBY4AUFjDVJsVG5VFiHuNYLbOZO7WbxlHKFsBEIrsk3DWPZwLOGp NjgxNiAwMDAwMCBuDQowMDAwMDExNjcyIDAwMDAwIG 8WWuTkHGOiUVF2IRriKNAkCLBhlq8FDIDhJWEuEqImIVUwJTInWFUvCAjjYQQzMPGjOQZeWZEsTFUgDC 4EQwGcNCNiHVT1VYayQHMxXIPmxk8UEWDwKVQkNqBzXKSvELMePRZcERyrETWlYJYzDlT6BXDtSRHyJP 3SFtZaBQIfTLE4YQvzEDLdTXUrpm7DAFItHLXtYZC2 GkGhLBTiZQRcTUndQTKqDGMdGUlqOWSgJAIrHR3UKzPgJKNpZrRsYdwoJLHdUSMpgq8JGOHbNCDkXAP4 ANFiQKRrQZVmCZk7bmOptSUtUKr4US1ZJ2BmpcCzWnjBAf8Gg455KGV0NZIvBm4OT6bnGg4vRBQyAVTU Bz5WKUx7YDA9WvQuAZo3DCGsHuY3JOU5EoQ3PnGcO9 Z3VHVnA2Y+ESqtBKyfQvE5GOgeKFHzDlbwTyfiNSlbFCQ2Odk2BuMbKY3wWJSEPy4+DQpzdGFydHhyZW JWRoG3HqT0VVwpOPNEXg5Z ID Date Data Source [id number] 07/18/2020 10:02:00 AM EDT [facility] ([facility] [...] MD 07/19/2020 0900 ID Date Data Source [id number] 07/17/2020 11:13:00 AM EDT [facility] ([facility] [...] Little GFR Left</content>
<content>ESRD GFR <15 on [employer]</content>
<content></content> Sodium Level 142 meq/L 136-145 [facility] [...] ([facility] ID Date Data Source [id number] 07/17/2020 11:13:00 AM EDT [facility] ([facility] [...] [facility] ID Date Data Source [id number] 07/13/2020 11:30:00 AM EDT [facility] Name Value Range Interpretation Code Description Data Toma rce(s) Supporting Document(s) SARS coronavirus 2 RNA [facility] This lab was ordered by [facility] and reported by [facility]. ID Date Data Source [id number] 06/14/2020 11:00:00 AM EDT [facility] ([facility]) Name Value Range Interpretation Code Description Data Toma rce(s) Supporting Document(s) Coronavirus 2019 Nasopharygeal Laboratory test result [facility] ([facility]) This nucleic acid amplification test was developed and its performance characteristics determined by [facility]. Nucleic acid amplification tests include PCR [...] detected) result in this assay. Performed at: [address] [id number] Client Care Manager: Ruth Ann Gonzalez MD, Phone: [phone] Not Detected ID Date Data Source [id number] 06/14/2020 11:00:00 AM EDT [facility] Name Value Range Interpretation Code Description Data Toma rce(s) Supporting Document(s) SARS coronavirus 2 RNA [facility] This lab was ordered by [facility] and reported by [facility]. Procedure Social History Code Duration Value Status Description Data Source(s ) Smoking 07/23/2021 12:00:00 AM EDT Former Smoker completed Former Smoker eCW1 ([facility]) Smoking 07/23/2021 12:00:00 AM EDT Former Smoker completed Former Smoker eCW1 ([facility]) Smoking 07/23/2021 12:00:00 AM EDT Former Smoker completed Former Smoker eCW1 ([facility]) Smoking 07/23/2021 12:00:00 AM EDT Former Smoker completed Former Smoker eCW1 ([facility]) Smoking 07/23/2021 12:00:00 AM EDT Former Smoker completed Former Smoker eCW1 ([facility]) Smoking 07/22/2021 12:00:00 AM EDT Former Smoker completed Former Smoker eCW1 ([facility]) Smoking 06/28/2021 12:00:00 AM EDT Former Smoker completed Former Smoker eCW1 ([facility]) Smoking 06/28/2021 12:00:00 AM EDT Former Smoker completed Former Smoker eCW1 ([facility]) Smoking 06/28/2021 12:00:00 AM EDT Former Smoker completed Former Smoker eCW1 ([facility]) Smoking 06/28/2021 12:00:00 AM EDT Former Smoker completed Former Smoker eCW1 ([facility]) Smoking 06/28/2021 12:00:00 AM EDT Former Smoker completed Former Smoker eCW1 ([facility]) Smoking 06/13/2021 12:00:00 AM EDT Former Smoker completed Former Smoker eCW1 ([facility]) Smoking 06/13/2021 12:00:00 AM EDT Former Smoker completed Former Smoker eCW1 ([facility]) Smoking 06/13/2021 12:00:00 AM EDT Former Smoker completed Former Smoker eCW1 ([facility]) Smoking 05/23/2021 12:00:00 AM EDT Patient is a former smoker completed Patient is a former smoker [facility] ([facility] ) Smoking 05/16/2021 12:00:00 AM EDT Former Smoker completed Former Smoker eCW1 ([facility]) Smoking 05/16/2021 12:00:00 AM EDT Former Smoker completed Former Smoker eCW1 ([facility]) Smoking 05/16/2021 12:00:00 AM EDT Former Smoker completed Former Smoker eCW1 ([facility]) Smoking 05/16/2021 12:00:00 AM EDT Former Smoker completed Former Smoker eCW1 ([facility]) Smoking 05/16/2021 12:00:00 AM EDT Former Smoker completed Former Smoker eCW1 ([facility]) Smoking 04/25/2021 12:00:00 AM EDT Former Smoker completed Former Smoker eCW1 ([facility]) Smoking 04/25/2021 12:00:00 AM EDT Former Smoker completed Former Smoker eCW1 ([facility]) Smoking 04/25/2021 12:00:00 AM EDT Former Smoker completed Former Smoker eCW1 ([facility]) Smoking 04/25/2021 12:00:00 AM EDT Former Smoker completed Former Smoker eCW1 ([facility]) Smoking 04/25/2021 12:00:00 AM EDT Former Smoker completed Former Smoker eCW1 ([facility]) Smoking 04/25/2021 12:00:00 AM EDT Former Smoker completed Former Smoker eCW1 ([facility]) Alcohol intake 04/19/2021 12:00:00 AM EDT Current non-d [place] of alcohol (finding) completed Current non-drinker of alcohol (finding) [facility] Smoking 04/15/2021 12:00:00 AM EDT Former Smoker completed Former Smoker eCW1 ([facility]) Smoking 04/15/2021 12:00:00 AM EDT Former Smoker completed Former Smoker eCW1 ([facility]) Smoking 04/15/2021 12:00:00 AM EDT Former Smoker completed Former Smoker eCW1 ([facility]) Smoking 04/15/2021 12:00:00 AM EDT Former Smoker completed Former Smoker eCW1 ([facility]) Smoking 04/10/2021 12:00:00 AM EDT Former Smoker completed Former Smoker eCW1 ([facility]) Smoking 03/15/2021 12:00:00 AM EDT Former Smoker completed Former Smoker eCW1 ([facility]) Smoking 03/15/2021 12:00:00 AM EDT Former Smoker completed Former Smoker eCW1 ([facility]) Smoking 03/15/2021 12:00:00 AM EDT Former Smoker completed Former Smoker eCW1 ([facility]) Smoking 03/15/2021 12:00:00 AM EDT Former Smoker completed Former Smoker eCW1 ([facility]) Smoking 02/25/2021 12:00:00 AM EDT Former Smoker completed Former Smoker eCW1 ([facility]) Smoking 02/25/2021 12:00:00 AM EDT Former Smoker completed Former Smoker eCW1 ([facility]) Smoking 02/25/2021 12:00:00 AM EDT Former Smoker completed Former Smoker eCW1 ([facility]) Smoking 02/05/2021 12:00:00 AM EDT Former Smoker completed Former Smoker eCW1 ([facility]) Smoking 02/05/2021 12:00:00 AM EDT Former Smoker completed Former Smoker eCW1 ([facility]) Smoking 02/05/2021 12:00:00 AM EDT Former Smoker completed Former Smoker eCW1 ([facility]) Smoking 02/05/2021 12:00:00 AM EDT Former Smoker completed Former Smoker eCW1 ([facility]) Smoking 02/05/2021 12:00:00 AM EDT Former Smoker completed Former Smoker eCW1 ([facility]) Smoking 01/25/2021 12:00:00 AM EDT Former Smoker completed Former Smoker eCW1 ([facility]) Smoking 01/25/2021 12:00:00 AM EDT Former Smoker completed Former Smoker eCW1 ([facility]) Smoking 01/22/2021 12:00:00 AM EDT Former Smoker completed Former Smoker eCW1 ([facility]) Smoking 01/22/2021 12:00:00 AM EDT Former Smoker completed Former Smoker eCW1 ([facility]) Smoking 12/11/2020 12:00:00 AM EST Former Smoker completed Former Smoker eCW1 ([facility]) Smoking 12/11/2020 12:00:00 AM EST Former Smoker completed Former Smoker eCW1 ([facility]) Smoking 12/11/2020 12:00:00 AM EST Former Smoker completed Former Smoker eCW1 ([facility]) Smoking 12/11/2020 12:00:00 AM EST Former Smoker completed Former Smoker eCW1 ([facility]) Smoking 12/11/2020 12:00:00 AM EST Former Smoker completed Former Smoker eCW1 ([facility]) Smoking 12/11/2020 12:00:00 AM EST Former Smoker completed Former Smoker eCW1 ([facility]) Smoking 12/11/2020 12:00:00 AM EST Former Smoker completed Former Smoker eCW1 ([facility]) Smoking 12/11/2020 12:00:00 AM EST Former Smoker completed Former Smoker eCW1 ([facility]) Smoking 12/11/2020 12:00:00 AM EST Former Smoker completed Former Smoker eCW1 ([facility]) Smoking 12/11/2020 12:00:00 AM EST Former Smoker completed Former Smoker eCW1 ([facility]) Smoking 12/10/2020 12:00:00 AM EST Former Smoker completed Former Smoker eCW1 ([facility]) Smoking 11/20/2020 12:00:00 AM EST Former Smoker completed Former Smoker eCW1 ([facility]) Smoking 11/20/2020 12:00:00 AM EST Former Smoker completed Former Smoker eCW1 ([facility]) Smoking 11/20/2020 12:00:00 AM EST Former Smoker completed Former Smoker eCW1 ([facility]) Smoking 11/20/2020 12:00:00 AM EST Former Smoker completed Former Smoker eCW1 ([facility]) Smoking 11/20/2020 12:00:00 AM EST Former Smoker completed Former Smoker eCW1 ([facility]) Smoking 11/20/2020 12:00:00 AM EST Former Smoker completed Former Smoker eCW1 ([facility]) Smoking 11/20/2020 12:00:00 AM EST Former Smoker completed Former Smoker eCW1 ([facility]) Smoking 11/20/2020 12:00:00 AM EST Former Smoker completed Former Smoker eCW1 ([facility]) Smoking 11/17/2020 12:00:00 AM EST Patient is a former smoker completed Patient is a former smoker [facility] ([facility]) Smoking 11/05/2020 12:00:00 AM EST Patient is a former smoker completed Patient is a former smoker [facility] ([facility]) Smoking 10/09/2020 12:00:00 AM EST Former Smoker completed Former Smoker eCW1 ([facility]) Smoking 10/09/2020 12:00:00 AM EST Former Smoker completed Former Smoker eCW1 ([facility]) Smoking 10/09/2020 12:00:00 AM EST Former Smoker completed Former Smoker eCW1 ([facility]) Smoking 09/24/2020 12:00:00 AM EST Former Smoker completed Former Smoker eCW1 ([facility]) Smoking 09/24/2020 12:00:00 AM EST Former Smoker completed Former Smoker eCW1 ([facility]) Smoking 09/24/2020 12:00:00 AM EST Former Smoker completed Former Smoker eCW1 ([facility]) Smoking 09/24/2020 12:00:00 AM EST Former Smoker completed Former Smoker eCW1 ([facility]) Smoking 09/24/2020 12:00:00 AM EST Former Smoker completed Former Smoker eCW1 ([facility]) Smoking 08/15/2020 12:00:00 AM EST Former Smoker completed Former Smoker eCW1 ([facility]) Smoking 08/15/2020 12:00:00 AM EST Former Smoker completed Former Smoker eCW1 ([facility]) Smoking 08/15/2020 12:00:00 AM EST Former Smoker completed Former Smoker eCW1 ([facility]) Smoking 08/15/2020 12:00:00 AM EST Former Smoker completed Former Smoker eCW1 ([facility]) Smoking 08/15/2020 12:00:00 AM EST Former Smoker completed Former Smoker eCW1 ([facility]) Smoking 08/15/2020 12:00:00 AM EST Former Smoker completed Former Smoker eCW1 ([facility]) Smoking 08/15/2020 12:00:00 AM EST Former Smoker completed Former Smoker eCW1 ([facility]) Smoking 08/15/2020 12:00:00 AM EST Former Smoker completed Former Smoker eCW1 ([facility]) Smoking 08/15/2020 12:00:00 AM EST Former Smoker completed Former Smoker eCW1 ([facility]) Smoking 08/09/2020 12:00:00 AM EST Former Smoker completed Former Smoker eCW1 ([facility]) Smoking 08/09/2020 12:00:00 AM EST Former Smoker completed Former Smoker eCW1 ([facility]) Smoking 08/09/2020 12:00:00 AM EST Former Smoker completed Former Smoker eCW1 ([facility]) Smoking 08/09/2020 12:00:00 AM EST Former Smoker completed Former Smoker eCW1 ([facility]) Smoking 08/09/2020 12:00:00 AM EST Former Smoker completed Former Smoker eCW1 ([facility]) Smoking 08/08/2020 12:00:00 AM EST Former Smoker completed Former Smoker eCW1 ([facility]) Smoking 08/07/2020 12:00:00 AM EST Former Smoker completed Former Smoker eCW1 ([facility]) Smoking 07/26/2020 12:00:00 AM EDT Former Smoker completed Former Smoker eCW1 ([facility]) Smoking 07/17/2020 12:00:00 AM EDT Former Smoker completed Former Smoker eCW1 ([facility]) Vital Signs ID Date Data Source UNK Name Value Range Interpretation Code Description Data Source(s) Body weight 312.0 [lb_av] 312.0 [lb_av] eCW1 ([facility]) Body height 68 [in_i] 68 [in_i] eCW1 ([facility]) Body mass index (BMI) [Ratio] 47.43 kg/m2 47.43 kg/m2 eCW1 ([facility]) Systolic blood pressure 132 mm[Hg] 132 mm[Hg] e CW1 ([facility]) Diastolic blood pressure 84 mm[Hg] 84 mm[Hg] eCW1 ([facility]) Body weight 316.6 [lb_av] 316.6 [lb_av] eCW1 ([facility]) Body weight 143.61 kg 143.61 kg eCW1 ([facility]) Body height 68 [in_i] 68 [in_i] eCW1 ([facility]) Body mass index (BMI) [Ratio] 48.13 kg/m2 48.13 kg/m2 eCW1 ([facility]) Systolic blood pressure 130 mm[Hg] 130 mm[Hg] e CW1 ([facility]) Diastolic blood pressure 78 mm[Hg] 78 mm[Hg] eCW1 ([facility]) Body weight 310.0 [lb_av] 310.0 [lb_av] eCW1 ([facility]) Body weight 140.62 kg 140.62 kg eCW1 ([facility]) Body height 68 [in_i] 68 [in_i] eCW1 ([facility]) Body mass index (BMI) [Ratio] 47.13 kg/m2 47.13 kg/m2 eCW1 ([facility]) Heart rate 69 /min 69 /min eCW1 ([facility]) Respiratory rate 18 /min 18 /min eCW1 [facility] Body temperature 98.8 [degF] 98.8 [degF] eCW1 ( [facility]) Systolic blood pressure 144 mm[Hg] 144 mm[Hg] e CW1 ([facility]) Diastolic blood pressure 88 mm[Hg] 88 mm[Hg] eCW1 ([facility]) Body height 68 [in_i] 68 [in_i] MEDENT ([facility]) 5'8" Body mass index (BMI) [Ratio] 47.9 kg/m2 47.9 k g/m2 [facility] ([facility]) Body weight 315.00 [lb_av] 315.00 [lb_av] MEDEN T ([facility]) Systolic blood pressure 116 mm[Hg] 116 mm[Hg] M EDENT ([facility]) Diastolic blood pressure 74 mm[Hg] 74 mm[Hg] MEDENT ([facility]) Heart rate 70 /min 70 /min [facility] ([facility]) Oxygen saturation in Arterial blood by Pulse oximetry 100 % 100 % [facility] ([facility]) Room Air Body height 68 [in_i] 68 [in_i] [facility] ([facility]) 5'8" Body weight 313.00 [lb_av] 313.00 [lb_av] MEDEN T ([facility]) Body mass index (BMI) [Ratio] 47.6 kg/m2 47.6 k g/m2 [facility] ([facility]) [place] body weight 154 [lb_av] 154 [lb_av] MEDEN T ([facility]) Body weight 141.977 kg 141.977 kg [facility] ([facility]) Body surface area Derived from formula 2.47 m2 2.47 m2 [facility] ([facility]) Body weight 312 [lb_av] 312 [lb_av] eCW1 ([facility]) Body weight 141.52 kg 141.52 kg W1 ([facility]) Body height 68 [in_i] 68 [in_i] eCW1 ([facility]) Body mass index (BMI) [Ratio] 47.43 kg/m2 47.43 kg/m2 W1 ([facility]) Systolic blood pressure 136 mm[Hg] 136 mm[Hg] e CW1 ([facility]) Diastolic blood pressure 74 mm[Hg] 74 mm[Hg] eCW1 ([facility]) Body weight 307 [lb_av] 307 [lb_av] eCW1 ([facility]) Body height 68 [in_i] 68 [in_i] eCW1 ([facility]) Body mass index (BMI) [Ratio] 46.67 kg/m2 46.67 kg/m2 W1 ([facility]) Heart rate 84 /min 84 /min eCW1 ([facility]) Respiratory rate 20 /min 20 /min eCW1 ([facility] Body temperature 97.8 [degF] 97.8 [degF] eCW1 ( [facility]) Systolic blood pressure 134 mm[Hg] 134 mm[Hg] e CW1 ([facility]) Diastolic blood pressure 70 mm[Hg] 70 mm[Hg] eCW1 ([facility]) Systolic blood pressure 116 mm[Hg] 116 mm[Hg] [facility] Diastolic blood pressure 76 mm[Hg] 76 mm[Hg] [facility] Heart rate 65 /min 65 /min [facility] Respiratory rate 18 /min 18 /min [facility] Body weight 140.343 kg 140.343 kg [facility] Body mass index (BMI) [Ratio] 47.04 kg/m2 47.04 kg/m2 [facility] Oxygen saturation in Arterial blood by Pulse oximetry 98 % 98 % [facility] Body weight 306 [lb_av] 306 [lb_av] eCW1 ([facility]) Body height 68 [in_i] 68 [in_i] eCW1 ([facility]) Body mass index (BMI) [Ratio] 46.52 kg/m2 46.52 kg/m2 W1 ([facility]) Heart rate 68 /min 68 /min eCW1 ([facility]) Respiratory rate 19 /min 19 /min eCW1 ([facility] Body temperature 98 [degF] 98 [degF] eCW1 ([facility] Systolic blood pressure 133 mm[Hg] 133 mm[Hg] e CW1 ([facility]) Diastolic blood pressure 79 mm[Hg] 79 mm[Hg] eCW1 ([facility]) Body weight 306.8 [lb_av] 306.8 [lb_av] eCW1 ([facility]) Body height 68 [in_i] 68 [in_i] eCW1 ([facility]) Body mass index (BMI) [Ratio] 46.64 kg/m2 46.64 kg/m2 eCW1 ([facility]) Heart rate 87 /min 87 /min eCW1 ([facility]) Respiratory rate 20 /min 20 /min eCW1 ([facility] Body temperature 97.1 [degF] 97.1 [degF] eCW1 ( [facility]) Systolic blood pressure 120 mm[Hg] 120 mm[Hg] e CW1 ([facility]) Diastolic blood pressure 60 mm[Hg] 60 mm[Hg] eCW1 ([facility]) Body weight 310 [lb_av] 310 [lb_av] eCW1 ([facility]) Body height 68 [in_i] 68 [in_i] eCW1 ([facility]) Body mass index (BMI) [Ratio] 47.13 kg/m2 47.13 kg/m2 W1 ([facility]) Heart rate 77 /min 77 /min eCW1 ([facility]) Respiratory rate 20 /min 20 /min eCW1 ([facility] Body temperature 98 [degF] 98 [degF] eCW1 ([facility]) Systolic blood pressure 124 mm[Hg] 124 mm[Hg] e CW1 ([facility]) Diastolic blood pressure 70 mm[Hg] 70 mm[Hg] eCW1 ([facility]) Body weight 314 [lb_av] 314 [lb_av] eCW1 ([facility]) Body height 68 [in_i] 68 [in_i] eCW1 ([facility]) Body mass index (BMI) [Ratio] 47.74 kg/m2 47.74 kg/m2 eCW1 ([facility]) Heart rate 81 /min 81 /min eCW1 ([facility]) Respiratory rate 18 /min 18 /min eCW1 ([facility]) Body temperature 98.1 [degF] 98.1 [degF] eCW1 ( [facility]) Systolic blood pressure 130 mm[Hg] 130 mm[Hg] e CW1 ([facility]) Diastolic blood pressure 80 mm[Hg] 80 mm[Hg] eCW1 ([facility]) Body height 68 [in_i] 68 [in_i] MEDENT ([facility], ) 5'8" Body weight 315.00 [lb_av] 315.00 [lb_av] MEDEN T ([facility]) Body mass index (BMI) [Ratio] 47.9 kg/m2 47.9 k g/m2 [facility] ([facility]) [place] body weight 154 [lb_av] 154 [lb_av] MEDEN T ([facility]) Body weight 142.884 kg 142.884 kg [facility] ([facility]) Body surface area Derived from formula 2.48 m2 2.48 m2 [facility] ([facility]) Body weight 315.00 [lb_av] 315.00 [lb_av] MEDEN T ([facility]) Body mass index (BMI) [Ratio] 47.9 kg/m2 47.9 k g/m2 [facility] ([facility]) [place] body weight 154 [lb_av] 154 [lb_av] MEDEN T ([facility]) Body weight 142.884 kg 142.884 kg [facility] ([facility]) Systolic blood pressure 126 mm[Hg] 126 mm[Hg] M EDENT ([facility]) Diastolic blood pressure 70 mm[Hg] 70 mm[Hg] [facility] ([facility]) Body height 68 [in_i] 68 [in_i] MEDENT ([facility]) 5'8" Body surface area Derived from formula 2.48 m2 2.48 m2 [facility] ([facility], ) Body weight 308 [lb_av] 308 [lb_av] eCW1 ([facility]) Body height 68 [in_i] 68 [in_i] eCW1 ([facility]) Body mass index (BMI) [Ratio] 46.83 kg/m2 46.83 kg/m2 eCW1 ([facility]) Heart rate 88 /min 88 /min eCW1 ([facility]) Respiratory rate 20 /min 20 /min eCW1 ([facility]) Body temperature 98.6 [degF] 98.6 [degF] eCW1 ( [facility]) Systolic blood pressure 130 mm[Hg] 130 mm[Hg] e CW1 ([facility]) Diastolic blood pressure 84 mm[Hg] 84 mm[Hg] eCW1 ([facility]) Body weight 304 [lb_av] 304 [lb_av] eCW1 ([facility]) Body height 68 [in_i] 68 [in_i] eCW1 ([facility]) Body mass index (BMI) [Ratio] 46.22 kg/m2 46.22 kg/m2 eCW1 ([facility]) Heart rate 85 /min 85 /min eCW1 ([facility]) Respiratory rate 18 /min 18 /min eCW1 ([facility]) Body temperature 97.6 [degF] 97.6 [degF] eCW1 ( [facility]) Systolic blood pressure 121 mm[Hg] 121 mm[Hg] e CW1 ([facility]) Diastolic blood pressure 76 mm[Hg] 76 mm[Hg] eCW1 ([facility]) Body weight 305 [lb_av] 305 [lb_av] eCW1 ([facility]) Body height 68 [in_i] 68 [in_i] eCW1 ([facility]) Body mass index (BMI) [Ratio] 46.37 kg/m2 46.37 kg/m2 eCW1 ([facility]) Heart rate 85 /min 85 /min eCW1 ([facility]) Respiratory rate 20 /min 20 /min eCW1 ([facility]) Body temperature 97.5 [degF] 97.5 [degF] eCW1 ( [facility]) Systolic blood pressure 136 mm[Hg] 136 mm[Hg] e CW1 ([facility]) Diastolic blood pressure 80 mm[Hg] 80 mm[Hg] eCW1 ([facility]) Systolic blood pressure 113 mm[Hg] 113 mm[Hg] M EDENT ([facility], [facility]) Diastolic blood pressure 61 mm[Hg] 61 mm[Hg] MEDENT ([facility], [facility]) Heart rate 58 /min 58 /min MEDENT ([facility], [facility]) Respiratory rate 13 /min 13 /min MEDENT ( [facility], [facility]) Oxygen saturation in Arterial blood by Pulse oximetry 96 % 96 % MEDENT ([facility], [facility]) Body temperature 95.1 [degF] 95.1 [degF] MEDENT ([facility], [facility]) Body weight 300.00 [lb_av] 300.00 [lb_av] MEDEN T ([facility], [facility]) Body height 68 [in_i] 68 [in_i] MEDENT ([facility], [facility]) 5'8" Body mass index (BMI) [Ratio] 45.6 kg/m2 45.6 k g/m2 MEDENT ([facility], [facility]) Body temperature 96.7 [degF] 96.7 [degF] MEDENT ([facility] ) Body temperature 97.3 [degF] 97.3 [degF] MEDENT ([facility] ) Body temperature 97.3 [degF] 97.3 [degF] MEDENT ([facility] ) Body height 68 [in_i] 68 [in_i] MEDENT ([facility] ) 5'8" Body weight 306.00 [lb_av] 306.00 [lb_av] MEDEN T ([facility] ) Body mass index (BMI) [Ratio] 46.5 kg/m2 46.5 k g/m2 MEDENT ([facility]) Body temperature 96.8 [degF] 96.8 [degF] MEDENT ([facility]) Body weight 306 [lb_av] 306 [lb_av] eCW1 ([facility]) Body height 68 [in_i] 68 [in_i] eCW1 ([facility]) Body mass index (BMI) [Ratio] 46.52 kg/m2 46.52 kg/m2 eCW1 ([facility]) Heart rate 90 /min 90 /min eCW1 ([facility]) Respiratory rate 20 /min 20 /min eCW1 ([facility] Body temperature 97 [degF] 97 [degF] eCW1 ([facility]) Systolic blood pressure 130 mm[Hg] 130 mm[Hg] e CW1 ([facility]) Diastolic blood pressure 80 mm[Hg] 80 mm[Hg] eCW1 ([facility]) Body weight 305.0 [lb_av] 305.0 [lb_av] eCW1 ([facility]) Body height 68 [in_i] 68 [in_i] eCW1 ([facility]) Body mass index (BMI) [Ratio] 46.37 kg/m2 46.37 kg/m2 eCW1 ([facility]) Heart rate 85 /min 85 /min eCW1 ([facility]) Respiratory rate 18 /min 18 /min eCW1 ([facility]) Body temperature 96.9 [degF] 96.9 [degF] eCW1 ( [facility]) Systolic blood pressure 121 mm[Hg] 121 mm[Hg] e CW1 ([facility]) Diastolic blood pressure 76 mm[Hg] 76 mm[Hg] eCW1 ([facility]) Body weight 300 [lb_av] 300 [lb_av] eCW1 ([facility]) Body height 68 [in_i] 68 [in_i] eCW1 ([facility]) Body mass index (BMI) [Ratio] 45.61 kg/m2 45.61 kg/m2 eCW1 ([facility]) Heart rate 69 /min 69 /min eCW1 ([facility]) Respiratory rate 18 /min 18 /min eCW1 ([facility]) Body temperature 97.9 [degF] 97.9 [degF] eCW1 ( [facility]) Systolic blood pressure 118 mm[Hg] 118 mm[Hg] e CW1 ([facility]) Diastolic blood pressure 68 mm[Hg] 68 mm[Hg] eCW1 ([facility]) Body weight 301.2 [lb_av] 301.2 [lb_av] eCW1 ([facility]) Body height 68 [in_i] 68 [in_i] eCW1 ([facility]) Body mass index (BMI) [Ratio] 45.79 kg/m2 45.79 kg/m2 eCW1 ([facility]) Heart rate 68 /min 68 /min eCW1 ([facility]) Respiratory rate 18 /min 18 /min eCW1 ([facility]) Body temperature 98.4 [degF] 98.4 [degF] eCW1 ( [facility]) Systolic blood pressure 115 mm[Hg] 115 mm[Hg] e CW1 ([facility]) Diastolic blood pressure 68 mm[Hg] 68 mm[Hg] eCW1 ([facility]) Body weight 295 [lb_av] 295 [lb_av] eCW1 ([facility]) Body height 68 [in_i] 68 [in_i] eCW1 ([facility]) Body mass index (BMI) [Ratio] 44.85 kg/m2 44.85 kg/m2 eCW1 ([facility]) Heart rate 110 /min 110 /min eCW1 ([facility]) Respiratory rate 18 /min 18 /min eCW1 ([facility]) Body temperature 97.9 [degF] 97.9 [degF] eCW1 ( [facility]) Systolic blood pressure 112 mm[Hg] 112 mm[Hg] e CW1 ([facility]) Diastolic blood pressure 80 mm[Hg] 80 mm[Hg] eCW1 ([facility]) Body weight 297.4 [lb_av] 297.4 [lb_av] eCW1 ([facility]) Body height 68 [in_i] 68 [in_i] eCW1 ([facility]) Body mass index (BMI) [Ratio] 45.21 kg/m2 45.21 kg/m2 eCW1 ([facility]) Heart rate 78 /min 78 /min eCW1 ([facility]) Respiratory rate 20 /min 20 /min eCW1 ([facility]) Body temperature 97.2 [degF] 97.2 [degF] eCW1 ( [facility]) Systolic blood pressure 113 mm[Hg] 113 mm[Hg] e CW1 ([facility]) Diastolic blood pressure 56 mm[Hg] 56 mm[Hg] eCW1 ([facility]) Body weight 297.4 [lb_av] 297.4 [lb_av] eCW1 ([facility]) Body height 68 [in_i] 68 [in_i] eCW1 ([facility]) Body mass index (BMI) [Ratio] 45.21 kg/m2 45.21 kg/m2 W1 ([facility]) Heart rate 99 /min 99 /min eCW1 ([facility]) Respiratory rate 20 /min 20 /min eCW1 ([facility]) Body temperature 98.5 [degF] 98.5 [degF] eCW1 ( [facility]) Systolic blood pressure 104 mm[Hg] 104 mm[Hg] e CW1 ([facility]) Diastolic blood pressure 70 mm[Hg] 70 mm[Hg] eCW1 ([facility]) Systolic blood pressure 111 mm[Hg] 111 mm[Hg] M EDENT ([facility], [facility]) Diastolic blood pressure 77 mm[Hg] 77 mm[Hg] MEDENT ([facility], [facility]) Heart rate 67 /min 67 /min MEDENT ([facility], [facility]) Respiratory rate 14 /min 14 /min [facility] ( [facility]) Oxygen saturation in Arterial blood by Pulse oximetry 7 % 7 % [facility] ([facility]) Body temperature 97.6 [degF] 97.6 [degF] [facility] ([facility]) Body weight 292.00 [lb_av] 292.00 [lb_av] MEDEN T ([facility]) Body height 68 [in_i] 68 [in_i] [facility] ([facility]) 5'8" Body mass index (BMI) [Ratio] 44.4 kg/m2 44.4 k g/m2 [facility] ([facility]) ID Date Data Source [id number] 04/03/2021 10:47:01 AM EDT [facility] Name Value Range Interpretation Code Description Data Source(s) WEIGHT RECORDED 300.[address] [facility] Height 68 Inches 068 Inches [facility] Patient Treatment Plan of Care Planned Activity Planned Date Details Description Data Source (s) Hydroxyzine Hydrochloride 25 MG Oral Tablet 07/22/2021 12:00:00 AM EDT eCW1 ([facility]) Hydroxyzine Hydrochloride 25 MG Oral Tablet 07/22/2021 12:00:00 AM EDT eCW1 ([facility]) Hydroxyzine Hydrochloride 25 MG Oral Tablet 07/22/2021 12:00:00 AM EDT eCW1 ([facility]) Hydroxyzine Hydrochloride 25 MG Oral Tablet 07/22/2021 12:00:00 AM EDT eCW1 ([facility]) Hydroxyzine Hydrochloride 25 MG Oral Tablet 07/22/2021 12:00:00 AM EDT eCW1 ([facility]) Hydroxyzine Hydrochloride 25 MG Oral Tablet 07/22/2021 12:00:00 AM EDT eCW1 ([facility]) Betamethasone 0.5 MG/ML Topical Cream 06/28/2021 12:00:00 AM EDT eCW1 ([facility]) Betamethasone 0.5 MG/ML Topical Cream 06/28/2021 12:00:00 AM EDT eCW1 ([facility]) Betamethasone 0.5 MG/ML Topical Cream 06/28/2021 12:00:00 AM EDT eCW1 ([facility]) Betamethasone 0.5 MG/ML Topical Cream 06/28/2021 12:00:00 AM EDT eCW1 ([facility]) Betamethasone 0.5 MG/ML Topical Cream 06/28/2021 12:00:00 AM EDT eCW1 ([facility]) Triamcinolone Acetonide 1 MG/ML Topical Cream 05/16/2021 12:00:00 A M EDT eCW1 ([facility]) Triamcinolone Acetonide 1 MG/ML Topical Cream 05/16/2021 12:00:00 A M EDT eCW1 ([facility]) Triamcinolone Acetonide 1 MG/ML Topical Cream 05/16/2021 12:00:00 A M EDT eCW1 ([facility]) Triamcinolone Acetonide 1 MG/ML Topical Cream 05/16/2021 12:00:00 A M EDT eCW1 ([facility]) Triamcinolone Acetonide 1 MG/ML Topical Cream 05/16/2021 12:00:00 A M EDT eCW1 ([facility]) Ondansetron 8 MG Oral Tablet 05/15/2021 12:00:00 AM EDT eCW1 ([facility]) tramadol hydrochloride 50 MG Oral Tablet 04/17/2021 12:00:00 AM EDT [facility] topiramate 50 MG Oral Tablet 03/26/2021 12:00:00 AM EDT [facility] Hydrocortisone 10 MG/ML / Neomycin 3.5 M G/ML / Polymyxin B 12602 UNT/ML Otic Suspension 03/18/2021 12:00:00 AM EDT [facility] Hydrocortisone 10 MG/ML / Neomycin 3.5 M G/ML / Polymyxin B 78057 UNT/ML Otic Suspension 03/18/2021 12:00:00 AM EDT eCW1 ([facility]) Hydrocortisone 10 MG/ML / Neomycin 3.5 M G/ML / Polymyxin B 11347 UNT/ML Otic Suspension 03/18/2021 12:00:00 AM EDT eCW1 ([facility]) Hydrocortisone 10 MG/ML / Neomycin 3.5 M G/ML / Polymyxin B 01680 UNT/ML Otic Suspension 03/18/2021 12:00:00 AM EDT eCW1 ([facility]) Hydrocortisone 10 MG/ML / Neomycin 3.5 M G/ML / Polymyxin B 21541 UNT/ML Otic Suspension 03/18/2021 12:00:00 AM EDT eCW1 ([facility]) POLYETHYLENE GLYCOL 3350 142 MG/ML Oral Solution 03/15/2021 12:00:0 0 AM EDT [facility] Docusate Sodium 100 MG Oral Capsule [Colace] 03/15/2021 12:00:00 AM EDT eCW1 ([facility]) POLYETHYLENE GLYCOL 3350 142 MG/ML Oral Solution [Carlene lax] 03/15/2021 12:00:00 AM EDT eCW1 ([facility]) Docusate Sodium 100 MG Oral Capsule [Colace] 03/15/2021 12:00:00 AM EDT eCW1 ([facility]) POLYETHYLENE GLYCOL 3350 142 MG/ML Oral Solution [Carlene lax] 03/15/2021 12:00:00 AM EDT eCW1 ([facility]) Docusate Sodium 100 MG Oral Capsule [Colace] 03/15/2021 12:00:00 AM EDT eCW1 ([facility]) POLYETHYLENE GLYCOL 3350 142 MG/ML Oral Solution [Carlene lax] 03/15/2021 12:00:00 AM EDT eCW1 ([facility]) Docusate Sodium 100 MG Oral Capsule [Colace] 03/15/2021 12:00:00 AM EDT eCW1 ([facility]) POLYETHYLENE GLYCOL 3350 142 MG/ML Oral Solution [Carlene lax] 03/15/2021 12:00:00 AM EDT eCW1 ([facility]) Bisacodyl 5 MG Delayed Release Oral Tablet 03/02/2021 12:00:00 AM E DT [facility] Metoprolol Tartrate 25 MG Oral Tablet 02/26/2021 12:00:00 AM EDT [facility] Clobetasol Propionate 0.5 MG/ML Topical Cream 01/25/2021 12:00:00 A M EDT eCW1 ([facility]) Clobetasol Propionate 0.5 MG/ML Topical Cream 01/25/2021 12:00:00 A M EDT eCW1 ([facility]) Fluocinolone Acetonide 0.1 MG/ML Otic Solution [Jeremy ic] 08/07/2020 12:00:00 AM EST eCW1 ([facility]) apixaban 5 MG Oral Tablet [Eliquis] 05/15/2020 12:00:00 AM EDT [facility] Mupirocin 0.02 MG/MG Topical Ointment 04/12/2020 12:00:00 AM EDT [facility] Levothyroxine Sodium 0.075 MG Oral Tablet 09/19/2019 12:00:00 AM ES T [facility] Hydrocortisone 10 MG/ML Topical Cream [facility] Acetaminophen 500 MG Oral Tablet [facility] ammonium lactate 120 MG/ML Topical Lotion [facility] Aspirin 325 MG Delayed Release Oral Tablet [facility] Polyvinyl Alcohol 0.014 ML/ML Ophthalmic Solution [facility]
[2021-08-10] MEDS ORDERED: PROM25TA12 PO (16:24)
[2021-08-10] MEDS ORDERED: PROMETHAZINE 25 MG TAB PO ONE (16:25)
[2021-08-10] MEDS ORDERED: ACETAMINOPHEN TAB 650MG DOSE (2X325MG) PO ONE (16:25)
[2021-08-10 16:29] VITALS: BP 122/82
== END 2021-08-10 16:44 | disposition home or self-care (01) ==
LOC: M ED 14:15
DX: R51.9 Headache, unspecified (principal); M79.602 Pain in left arm; T50.Z95A Adverse effect of other vaccines and biological substances, initial encounter; Z79.899 Other long term (current) drug therapy; Z91.89 Other specified personal risk factors, not elsewhere classified; Z88.5 Allergy status to narcotic agent; Z91.040 Latex allergy status

== ENCOUNTER 2021-09-04 19:00 | Emergency (ER) | payer OTHER ==
[~2021-09-04] VITALS: Ht 172.7 cm; Wt 140.0 kg
[~2021-09-04 19:00] MED LIST changes: -MONT10TA10 PO; +MONT10TA97 PO; -OMEP-221 PO; +OMEP40CA5 PO; +PROM25TA12 PO
[2021-09-04 19:32] LABS: BASO % 0.5 % (0.0-1.0); EOS # 0.2 10^3/uL (0.0-0.5); EOS % 1.7 % (0.0-3.0); HEMATOCRIT 44.5 % (42.0-52.0); HEMOGLOBIN 14.5 g/dl (13.5-17.5); LYMPH # 1.9 10^3/uL (1.5-5.0); LYMPH % 21.1 % (24.0-44.0); MEAN CORPUSCULAR HEMOGLOBIN 28.4 pg (27.0-33.0); MEAN CORPUSCULAR HGB CONC 32.6 g/dl (32.0-36.5); MEAN CORPUSCULAR VOLUME 87.3 fl (80.0-96.0); NEUTROPHILS # 5.7 10^3/uL (1.5-8.5); NEUTROPHILS % 64.9 % (36.0-66.0); PLATELET COUNT, AUTOMATED 253 10^3/uL (150-450); WHITE BLOOD COUNT 8.8 10^3/uL (4.0-10.0)
[2021-09-04 19:56] LABS: CK-MB VALUE MASS 3.4 NG/ML (<3.6); MB/CK RELATIVE INDEX 1.37 (< OR =4)
[2021-09-04 20:04] LABS: ALBUMIN 3.4 GM/DL (3.2-5.2); BILIRUBIN,DIRECT 0.2 MG/DL (0.0-0.2); BILIRUBIN,TOTAL 0.5 MG/DL (0.2-1.0); CALCIUM LEVEL 9.2 MG/DL (8.5-10.1); CREATININE FOR GFR 1.51 MG/DL (0.70-1.30); GLOMERULAR FILTRATION RATE 51.5 (>56); POTASSIUM SERUM 4.1 MEQ/L (3.5-5.1); THYROID STIMULATING HORMONE 4.8 uIU/ML (0.358-3.740); TOTAL PROTEIN 6.8 GM/DL (6.4-8.2)
[2021-09-04 22:30] VITALS: BP 129/77
[2021-10-20] MEDS ORDERED: TOPI25TA10 PO (16:10)
[2021-10-29] MEDS ORDERED: TAMS1CAP17 PO (17:19)
== END 2021-09-04 22:52 | disposition home or self-care (01) ==
LOC: M ED 19:00 → EDBD 19:00 → M ED 22:52
DX: R07.89 Other chest pain (principal); E66.9 Obesity, unspecified; R51.9 Headache, unspecified; I10 Essential (primary) hypertension; F90.9 Attention-deficit hyperactivity disorder, unspecified type; Z98.61 Coronary angioplasty status; Z87.891 Personal history of nicotine dependence; Z79.899 Other long term (current) drug therapy; Z91.89 Other specified personal risk factors, not elsewhere classified; Z91.040 Latex allergy status; Z88.5 Allergy status to narcotic agent

== ENCOUNTER 2021-09-15 16:13 | Emergency (ER) | payer OTHER ==
[~2021-09-15] VITALS: Ht 172.7 cm; Wt 137.3 kg
[~2021-09-15 16:13] MED LIST changes: +MONT10TA10 PO; -MONT10TA97 PO; +OMEP-221 PO; -OMEP40CA5 PO
[2021-09-15 16:19] VITALS: BP 121/88
--- OUTSIDE RECORDS SUMMARY | 2021-09-15 16:20 | CCD ---
Author Author [facility] [id number] [facility] Syst ems Organization [facility] Syst ems Address Unknown Phone Unavailable Care Team Providers Care Picker Packer Name Role Phone Debbie Thomson Unavailable PROBLEMS Type Condition ICD9-CM Code NPW96-RS Code Onset Dates Condition S tatus W/U Status Risk SNOMED Code Notes Problem Anxiety disorder, unspecified F41.9 Active confirm ed 579738290 Problem Intervertebral disc disorder with radiculopathy of lumbar region M51.16 Active confirmed 12073933 Problem Obesity, unspecified E66.9 Active confirmed 30723556791123 Problem 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 Active confirmed 03713 01 Problem Disc displacement, 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 Active confirmed 593049228973444 Problem Seborrheic keratoses L82.1 Active confirmed 884661435 Problem Sebaceous hyperplasia L73.8 Active confirmed 663078167 Problem Spondylosis without myelopathy or radiculopathy, lumbosacral region M47.817 Active confirmed 38279357 Problem Depression F32.9 Active confirmed 64746640 Problem Bilateral serous otitis media, unspecified chronicity H65.93 Active confirmed 29055654 Problem Allergic rhinitis J30.9 Active confirmed 61 928155 Problem Essential hypertension I10 Active confirmed 61608247 Problem Coronary artery disease invo lving [place] coronary artery of [place] heart, angina presence unspecified I25.10 Active confirmed 5716830324326 Problem Stage 3 chronic kidney disease N18.3 Active confir med 786670824 Problem Celiac disease K90.0 Active confirmed 07955 1005 Problem Obstructive sleep apnea on CPAP G47.33 Active confi rmed 69883104 Problem CKD (chronic kidney disease), stage III N18.3 Active confirmed 197369222 Problem Hyperlipidemia E78.5 Active confirmed 98115 004 Problem Hypothyroidism, unspecified type E03.9 Active conf irmed 49231095 Problem Dysfunction of both eustachian tubes H69.83 Act forrest confirmed 88815341 Problem Gastroesophageal reflux disease with esophagitis K 21.0 Active confirmed 051864371 Problem Carpal tunnel syndrome of right wrist G56.01 Ac tive confirmed 30871061 Problem Granuloma annulare L92.0 Active confirmed 6 7549509 Problem Wound of right buttock, initial encounter S31.819A Active confirmed 279585924 Problem Sacroiliitis M46.1 Active confirmed 5768408 9 Problem Unspecified open wound of right buttock, subsequ ent encounter S31.819D Active confirmed 41121957568973894 Problem Arthritis of lumbosacral spine M47.817 Active confi rmed 181081181 Problem 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 Active confirmed 878920439 Problem Allergic contact dermatitis, unspecified trigger L 23.9 Active confirmed 584099462 Problem Melanocytic nevi of trunk D22.5 Active confirmed 409633814 Problem Spondylosis of lumbar region without myelopathy or radiculopathy M47.816 Active confirmed 414665168 Problem Inflammation of both ear canals H60.93 Active confi rmed 7135656 Problem Other chronic pain G89.29 Active confirmed 8 8897789 Problem Other hammer toe(s) (acquired), right foot M20.41 Active confirmed 38625555 Problem Liver cyst K76.89 Active confirmed 11816623 ALLERGIES Allergen (clinical drug ingredient) Drug/Non Drug Allergy do cumented on EMR Reaction Allergy Type Onset Date Status Latex Latex Rash Drug Allergy Active Gluten Gluten Rash Drug Allergy Active Adhesive Tape rash Drug Allergy Active Codeine Phosphate (For Allergies Use Only) Nausea/Vomiting Drug Allergy Active ENCOUNTERS from 1967 to 2021-09-06 Encounter Location Date Provider Diagnosis [place] [id number] [facility] [phone] [place] [address] Aug, Debbie Thomson IMMUNIZATIONS Vaccine Route Administration Date Status COVID-19 [...] Education Language: Question Answer Notes Languages spoken: Uzbek Yazdanism: Question Answer Notes Yazdanism 21 Taoist No scientologist beliefs that would impact health care. Drug [...] ON AN EMPTY STOMACH O ral Active Atorvastatin Calcium 40 MG TAKE ONE TABLET BY MOUTH @8AM for 28 Active Aspirin 81 MG 1 tablet Orally Once a day Aug, Active Iwfgxgfl-Umpnplpkh-AI 3.5-99634-3 4 drops into affecte d ear Otic Three times a day for 7 day(s) Mar, Active Ondansetron HCl 8 MG 1 tablet as needed Orally th ree times daily only as needed for nausea or vomiting for 10 day(s) May, Active Montelukast Sodium 10 MG TAKE ONE TABLET BY MOUTH @5PM for 28 Active Metoprolol Tartrate 25 mg 1/2 tab Oral Daily Active tiZANidine HCl 4 MG 1 tablet as needed Orally Th ree times a day NEEDED FOR SEVERE PAIN for 30 Days Active Fluticasone Propionate 50 MCG/ACT instill ONE SPRAY IN EACH NOSTRIL TWICE DAILY NEEDED for 30 Active May Use - as directed Extensor piece for inhaler J30.9 for 99 days Aug, Active Levothyroxine Sodium 25 MCG TAKE ONE TABLET BY MOUTH @8AM for 28 Active [place] Saline Nasal - USE DIRECTED DAILY FOUR TIMES DAILY NEEDED for 20 Active Topiramate 50 MG with a 25 mg tab for total of 75 mgs Orally @ 1700 Active busPIRone HCl 10 MG TAKE ONE TABLET BY MOUTH @8A M and TAKE ONE TABLET @8PM Oral for 28 Active Triamcinolone Acetonide 0.1 % 1 application Externally Twice a day to dorsal hands for 14 days May, Active Vitamin D 1000 UNIT 2 tablets with meal Orally Once a day for 90 day(s) Dec, Active hydrOXYzine HCl 25 MG 1 tablet 30 at bedtime for 30 day(s) Active Docusate Sodium 100 MG TAKE ONE CAPSULE BY MOUTH @8AM for 28 Active Cetirizine HCl 10 MG TAKE ONE TABLET BY MOUTH @5PM for 28 Active MiraLax 17 GM/SCOOP 17gm scoop mixed with water Orally Once a day as needed for 30 Days Mar, Active traMADol HCl 50 MG 1 tablet as needed Orally q6h prn mdd4 for 30 Days Sep, Active Escitalopram Oxalate 10 MG 1 tablet Oral Once a day along with a 20 mg tablet Active Ventolin HFA 108 (90 Base) MCG/ACT INHALE TWO PUFFS BY MOUTH EVERY FOUR HOURS NEEDED Inhalation - for 30 days 2 days ago Active Trihexyphenidyl HCl 2 MG TAKE ONE TABLET BY MOUTH TWICE DAILY Orally bid Active Multivitamin Adult - as directed Orally Dec, Active Gabapentin 600 MG TAKE ONE TABLET BY MOUTH @8A M and TAKE ONE TABLET @12PM and TAKE ONE TABLET @8PM Oral q8h TID for 30 Days Active Famotidine 20 MG TAKE ONE TABLET BY MOUTH @8A M and TAKE ONE TABLET BY MOUTH @8PM Oral for 28 Active PROCEDURES No Information RESULTS No Results REASON FOR VISIT Needs call back from office MEDICAL (GENERAL) HISTORY Type Description Date Medical History Depression/Anxiety- Dr Enriquez. /therapist Q2 weeks Medical History Hyperlipidemia Medical History GERD with Barretts: Repeat EGD in Medical History vitamin d def Medical History FRAN: following with Pulmonol ogy: compliant with CPAP-pulmonology Medical History CAD: Bypass with autologous vein: Dr. Shelley munguia at [facility] Medical History ECHO 10/17/2016. Hypertensive heart disea [...] 03/31/16 Surgical History CABG- 4 vessel at [place] 11/11/16 Surgical History Left hand CP sx, and tendon removal. [facility] 01/2018 Surgical History Upper Endoscopic Ultrasound [...] diagnostic arthroscopy-Dr. Merrill 03/07/2021 Hospitalization History [facility]- Depression/A nxiety 14 yo Hospitalization History [facility]- [place]- depre ssion 18 yo Hospitalization History Father Kel nieves d facilty- tx of depression. [age]yo Hospitalization History Hemorrhoidectomy with remova l of a mixed hemorrhoidal bundles at the left lateral and right anterior and posterior positions. 01/11/2016 Hospitalization History CABG: [facility] 11/11/16 Hospitalization History Rehab [facility] 11/21 Hospitalization History POST RIGHT HAND HAND AND ELBOW SURGE RY 10/2019 Hospitalization History [facility] ED- Post-op problem, left foot c ellulitis 08/03/2020 Hospitalization History Right Ulnar Nerve 01/2020 Hospitalization History [facility] ED-AMA 01/21/2021 Hospitalization History [facility] ED-Right shoulder injury 021 Hospitalization History [facility] ED-Right foot pain 02/05/2021 Hospitalization History [facility] ED-Right ankle pain 02/19/2021 Hospitalization History [facility] ED-Right foot pain 02/22/2021 Hospitalization History [facility] ileus, small bowel obstruction Hospitalization History [facility] [...] tablet 30 at bedtime for 30 day(s) Next Appt Details Provider Name:García Helm, 2021-10-16 02:45:00 PM, [address], , [place], [address], Provider Name:Daisy Hicks, 2021-10-25 02:00:00 PM, [address] [facility], , [place], [address], Insurance Providers Payer Name Payer Address Payer Phone Insured Name Patient Relati onship to Insured Coverage Start Date Coverage End Date [facility] [address] [facility] [address] DEANNA AN self
--- OUTSIDE RECORDS SUMMARY | 2021-09-15 16:20 | CCD ---
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 Active confirmed 52360 01 Problem Disc displacement, 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 Active confirmed 276627127089769 Problem Seborrheic keratoses L82.1 Active confirmed 903881293 Problem Sebaceous hyperplasia L73.8 Active confirmed 577438594 Problem Spondylosis without myelopathy or radiculopathy, lumbosacral region M47.817 Active confirmed 00714786 Problem Depression F32.9 Active confirmed 65435511 Problem Bilateral serous otitis media, unspecified chronicity H65.93 Active confirmed 05943367 Problem Allergic rhinitis J30.9 Active confirmed 61 571716 Problem Essential hypertension I10 Active confirmed 61054988 Problem Coronary artery disease invo lving [place] coronary artery of [place] heart, angina presence unspecified I25.10 Active confirmed 6946113002165 Problem Stage 3 chronic kidney disease N18.3 Active confir med 005694758 Problem Celiac disease K90.0 Active confirmed 05961 1005 Problem Obstructive sleep apnea on CPAP G47.33 Active confi rmed 01396877 Problem CKD (chronic kidney disease), stage III N18.3 Active confirmed 531062383 Problem Hyperlipidemia E78.5 Active confirmed 15690 004 Problem Hypothyroidism, unspecified type E03.9 Active conf irmed 22344269 Problem Dysfunction of both eustachian tubes H69.83 Act forrest confirmed 55084556 Problem Gastroesophageal reflux disease with esophagitis K 21.0 Active confirmed 774855700 Problem Carpal tunnel syndrome of right wrist G56.01 Ac tive confirmed 69496010 Problem Granuloma annulare L92.0 Active confirmed 6 7694718 Problem Wound of right buttock, initial encounter S31.819A Active confirmed 674413600 Problem Sacroiliitis M46.1 Active confirmed 6116322 9 Problem Unspecified open wound of right buttock, subsequ ent encounter S31.819D Active confirmed 42576374125188192 Problem Arthritis of lumbosacral spine M47.817 Active confi rmed 648969033 Problem 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 Active confirmed 008155803 Problem Allergic contact dermatitis, unspecified trigger L 23.9 Active confirmed 785833092 Problem Melanocytic nevi of trunk D22.5 Active confirmed 170119130 Problem Spondylosis of lumbar region without myelopathy or radiculopathy M47.816 Active confirmed 011737635 Problem Inflammation of both ear canals H60.93 Active confi rmed 4421842 Problem Other chronic pain G89.29 Active confirmed 8 5165931 Problem Other hammer toe(s) (acquired), right foot M20.41 Active confirmed 57479911 Problem Liver cyst K76.89 Active confirmed 20108336 ALLERGIES Allergen (clinical drug ingredient) Drug/Non Drug Allergy do cumented on EMR Reaction Allergy Type Onset Date Status Latex Latex Rash Drug Allergy Active Gluten Gluten Rash Drug Allergy Active Adhesive Tape rash Drug Allergy Active Codeine Phosphate (For Allergies Use Only) Nausea/Vomiting Drug Allergy Active ENCOUNTERS from 1967 to 2021-09-13 Encounter Location Date Provider Diagnosis [place] [address] [facility] [phone] [place] [address] Sep, Fidelina Oscar IMMUNIZATIONS Vaccine Route Administration Date Status COVID-19 [...] Education Language: Question Answer Notes Languages spoken: Amharic Buddhist: Question Answer Notes Buddhist 21 Taoist No restorationist beliefs that would impact health care. Drug [...] Notes Start Da te End Date Status Ventolin HFA 108 (90 Base) MCG/ACT INHALE TWO PUFFS BY MOUTH EVERY FOUR HOURS NEEDED Inhalation - for 30 days 2 days ago Active tiZANidine HCl 4 MG 1 tablet as needed Orally Th ree times a day NEEDED FOR SEVERE PAIN for 30 Days Active Cetirizine HCl 10 MG TAKE ONE TABLET BY MOUTH @5PM for 28 Active Gabapentin 600 MG TAKE ONE TABLET BY MOUTH @8A M and TAKE ONE TABLET @12PM and TAKE ONE TABLET @8PM Oral q8h TID for 30 Days Active MiraLax 17 GM/SCOOP 17gm scoop mixed with water Orally Once a day as needed for 30 Days Mar, Active Multivitamin Adult - as directed Orally Dec, Active Topiramate 50 MG with a 25 mg tab for total of 75 mgs Orally @ 1700 Active Trihexyphenidyl HCl 2 MG TAKE ONE TABLET BY MOUTH TWICE DAILY Orally bid Active [place] Saline Nasal - use as directed daily four t imes daily as needed Nasally for 30 days Active Vitamin D 1000 UNIT 2 tablets with meal Orally Once a day for 90 day(s) Dec, Active Aspirin 81 MG 1 tablet Orally Once a day Aug, Active Atorvastatin Calcium 40 MG TAKE ONE TABLET BY MOUTH @8AM for Active Ondansetron HCl 8 MG 1 tablet as needed Orally th ree times daily only as needed for nausea or vomiting for 10 day(s) May, Active hydrOXYzine HCl 25 MG 1 tablet 30 at bedtime for 30 day(s) Active Montelukast Sodium 10 MG TAKE ONE TABLET BY MOUTH @5PM for 28 Active May Use - as directed Extensor piece for inhaler J30.9 for 99 days Aug, Active Fluticasone Propionate 50 MCG/ACT instill ONE SPRAY IN EACH NOSTRIL TWICE DAILY NEEDED for 30 Active Escitalopram Oxalate 10 MG 1 tablet Oral Once a day along with a 20 mg tablet Active Famotidine 20 MG TAKE ONE TABLET BY MOUTH @8A M and TAKE ONE TABLET BY MOUTH @8PM Oral for 28 Active DermOtic 0.01 % 5 drops into both ears Otic Twice a day for 7 da y(s) Mar, Active Levothyroxine Sodium 25 MCG TAKE ONE TABLET BY MOUTH @8AM for 28 Active busPIRone HCl 10 MG TAKE ONE TABLET BY MOUTH @8A M and TAKE ONE TABLET @8PM Oral for 28 Active Omeprazole 40 MG TAKE ONE CAPSULE BY MOUTH @8AM ON AN EMPTY STOMACH O ral Active Triamcinolone Acetonide 0.1 % 1 application Externally Twice a day to dorsal hands for 14 days May, Active traMADol HCl 50 MG 1 tablet as needed Orally q6h prn mdd4 for 30 Days Sep, Active Docusate Sodium 100 MG TAKE ONE CAPSULE BY MOUTH @8AM for 28 Active Metoprolol Tartrate 25 mg 1/2 tab Oral Daily Active Ukddbfsi-Yjtqocukz-SK 3.5-51863-9 4 drops into affecte d ear Otic Three times a day for 7 day(s) 14 Mar, 2021 Active PROCEDURES No Information RESULTS No Results REASON FOR VISIT OptiChamber Gia spacer MEDICAL (GENERAL) HISTORY Type Description Date Medical History Depression/Anxiety- Dr Enriquez. /therapist Q2 weeks Medical History Hyperlipidemia Medical History GERD with Barretts: Repeat EGD in 10 Medical History vitamin d def Medical History FRAN: following with Pulmonol ogy: compliant with CPAP-pulmonology Medical History CAD: Bypass with autologous vein: Dr. Shelley mugnuia at [facility] Medical History ECHO 10/17/2016. Hypertensive heart [...] 03/31/16 Surgical History CABG- 4 vessel at [place] 11/11/16 Surgical History Left hand CP sx, [...] knee diagnostic arthroscopy-Dr. Merrill 03/07/2021 Hospitalization History [facility]- Depression/A nxiety 14 yo Hospitalization History [facility] [place]- depre ssion 18 yo Hospitalization History Father [place]- [place]- ezequiel d facilty- tx of depression. 18-18yo Hospitalization History Hemorrhoidectomy with remova l of a mixed hemorrhoidal bundles at the left lateral and right anterior and posterior positions. 01/11/2016 Hospitalization History CABG: [facility] 11/11/16 Hospitalization History Rehab [facility] 11/21 Hospitalization History POST RIGHT HAND HAND AND ELBOW SURGE RY 10/2019 Hospitalization History [facility] ED- Post-op problem, left foot c ellulitis 08/03/2020 Hospitalization History Right Ulnar Nerve 01/2020 Hospitalization History [facility] ED-AMA 01/21/2021 Hospitalization History [facility] ED-Right shoulder injury 021 Hospitalization History [facility] ED-Right foot pain 02/05/2021 Hospitalization History [facility] ED-Right ankle pain 02/19/2021 Hospitalization History [facility] ED-Right foot pain 02/22/2021 Hospitalization History [facility] ileus, small bowel obstruction Hospitalization History [facility] - partial small bowel obstructio n 03/09/21 Hospitalization History [facility] - atypical chest pains 03/2021 Goals Section No Information Health Concerns No Information MEDICAL EQUIPMENT No Information MENTAL STATUS No Information FUNCTIONAL STATUS No Information ASSESSMENTS No Information PLAN OF TREATMENT Medication Medication Name Sig Start Date Stop Date [place] Saline Nasal - use as directed daily four t imes daily as needed Nasally for 30 days DermOtic 0.01 % 5 drops into both ears Otic Twice a day for 7 day(s) Mar, Next Appt Details Provider Name:García Helm, 2021-10-16 02:45:00 PM, [address], , [place], [address], Provider Name:Daisy Hicks, 2021-10-25 02:00:00 PM, [address] [facility], , [place], [address], Insurance Providers Payer Name Payer Address Payer Phone Insured Name Patient Relati onship to Insured Coverage Start Date Coverage End Date Subscriber Number Group Nu mber [facility] [address] [facility] [phone] DEANNA AN [facility] [id number]
--- OUTSIDE RECORDS SUMMARY | 2021-09-15 16:20 | CCD ---
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 Active confirmed 54674 01 Problem Disc displacement, 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 Active confirmed 682678656757130 Problem Seborrheic keratoses L82.1 Active confirmed 057600970 Problem Sebaceous hyperplasia L73.8 Active confirmed 589295406 Problem Spondylosis without myelopathy or radiculopathy, lumbosacral region M47.817 Active confirmed 72801813 Problem Depression F32.9 Active confirmed 90961388 Problem Bilateral serous otitis media, unspecified chronicity H65.93 Active confirmed 71549843 Problem Allergic rhinitis J30.9 Active confirmed 61 860432 Problem Essential hypertension I10 Active confirmed 65775114 Problem Coronary artery disease invo lving [place] coronary artery of [place] heart, angina presence unspecified I25.10 Active confirmed 4441562492022 Problem Stage 3 chronic kidney disease N18.3 Active confir med 255846737 Problem Celiac disease K90.0 Active confirmed 12222 1005 Problem Obstructive sleep apnea on CPAP G47.33 Active confi rmed 78395002 Problem CKD (chronic kidney disease), stage III N18.3 Active confirmed 251453611 Problem Hyperlipidemia E78.5 Active confirmed 92428 004 Problem Hypothyroidism, unspecified type E03.9 Active conf irmed 61736974 Problem Dysfunction of both eustachian tubes H69.83 Act forrest confirmed 57305281 Problem Gastroesophageal reflux disease with esophagitis K 21.0 Active confirmed 325251037 Problem Carpal tunnel syndrome of right wrist G56.01 Ac tive confirmed 01028948 Problem Granuloma annulare L92.0 Active confirmed 6 2156588 Problem Wound of right buttock, initial encounter S31.819A Active confirmed 430496375 Problem Sacroiliitis M46.1 Active confirmed 6949934 9 Problem Unspecified open wound of right buttock, subsequ ent encounter S31.819D Active confirmed 47971981991236851 Problem Arthritis of lumbosacral spine M47.817 Active confi rmed 723178429 Problem 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 Active confirmed 349735173 Problem Allergic contact dermatitis, unspecified trigger L 23.9 Active confirmed 444321400 Problem Melanocytic nevi of trunk D22.5 Active confirmed 711572080 Problem Spondylosis of lumbar region without myelopathy or radiculopathy M47.816 Active confirmed 041215791 Problem Inflammation of both ear canals H60.93 Active confi rmed 6753588 Problem Other chronic pain G89.29 Active confirmed 8 7371462 Problem Other hammer toe(s) (acquired), right foot M20.41 Active confirmed 28710420 Problem Liver cyst K76.89 Active confirmed 90442448 ALLERGIES Allergen (clinical drug ingredient) Drug/Non Drug Allergy do cumented on EMR Reaction Allergy Type Onset Date Status Latex Latex Rash Drug Allergy Active Gluten Gluten Rash Drug Allergy Active Adhesive Tape rash Drug Allergy Active Codeine Phosphate (For Allergies Use Only) Nausea/Vomiting Drug Allergy Active ENCOUNTERS from 1967 to 2021-09-03 Encounter Location Date Provider Diagnosis [address] [phone] [place] [address] Aug, Gauri Salcedo IMMUNIZATIONS Vaccine Route Administration Date Status COVID-19 [...] Language: Question Answer Notes Languages spoken: Amharic Religious: Question Answer Notes Religious 21 Judaism No catholic beliefs that would impact health care. Drug [...] Notes Start Da te End Date Status MiraLax 17 GM/SCOOP 17gm scoop mixed with water Orally Once a day as needed for 30 Days Mar, Active [place] Saline Nasal - USE DIRECTED DAILY FOUR TIMES DAILY NEEDED for 20 Active Vitamin D 1000 UNIT 2 tablets with meal Orally Once a day for 90 day(s) Dec, Active Ventolin HFA 108 (90 Base) MCG/ACT INHALE TWO PUFFS BY MOUTH EVERY FOUR HOURS NEEDED Inhalation - for 30 days 2 days ago Active Fluticasone Propionate 50 MCG/ACT instill ONE SPRAY IN EACH NOSTRIL TWICE DAILY NEEDED for 30 Active Levothyroxine Sodium 25 MCG TAKE ONE TABLET BY MOUTH @8AM for 28 Active Omeprazole 40 MG TAKE ONE CAPSULE BY MOUTH @8AM ON AN EMPTY STOMACH O ral Active tiZANidine HCl 4 MG 1 tablet as needed Orally Th ree times a day NEEDED FOR SEVERE PAIN for 30 Days Active Atorvastatin Calcium 40 MG TAKE ONE TABLET BY MOUTH @8AM for 28 Active hydrOXYzine HCl 25 MG 1 tablet 30 at bedtime for 30 day(s) Jul, Active Ondansetron HCl 8 MG 1 tablet as needed Orally th ree times daily only as needed for nausea or vomiting for 10 day(s) May, Active Trihexyphenidyl HCl 2 MG TAKE ONE TABLET BY MOUTH TWICE DAILY Orally bid Active Escitalopram Oxalate 10 MG 1 tablet Oral Once a day along with a 20 mg tablet Active May Use - as directed Extensor piece for inhaler J30.9 for 99 days Aug, Active Metoprolol Tartrate 25 mg 1/2 tab Oral Daily Active Docusate Sodium 100 MG TAKE ONE CAPSULE BY MOUTH @8AM for Active Aspirin 81 MG 1 tablet Orally Once a day Aug, Active traMADol HCl 50 MG 1 tablet as needed Orally q6h prn mdd4 for 30 Days Sep, Active Topiramate 50 MG with a 25 mg tab for total of 75 mgs Orally @ 1700 Active Triamcinolone Acetonide 0.1 % 1 application Externally Twice a day to dorsal hands for 14 days May, Active Bdeebkdz-Hnkgisdoj-RC 3.5-10759-5 4 drops into affecte d ear Otic Three times a day for 7 day(s) Mar, Active Multivitamin Adult - as directed Orally Dec, Active Montelukast Sodium 10 MG TAKE ONE TABLET BY MOUTH @5PM for 28 Active Famotidine 20 MG TAKE ONE TABLET BY MOUTH @8A M and TAKE ONE TABLET BY MOUTH @8PM Oral for 28 Active busPIRone HCl 10 MG TAKE ONE TABLET BY MOUTH @8A M and TAKE ONE TABLET @8PM Oral for 28 Active Cetirizine HCl 10 MG TAKE ONE TABLET BY MOUTH @5PM for 28 Active Gabapentin 600 MG TAKE ONE TABLET BY MOUTH @8A M and TAKE ONE TABLET @12PM and TAKE ONE TABLET @8PM Oral q8h TID for 30 Days Active PROCEDURES No Information RESULTS No Results REASON FOR VISIT SOS referral MEDICAL (GENERAL) HISTORY Type Description Date Medical [...] 03/31/16 Surgical History CABG- 4 vessel at [place] 11/11/16 Surgical History Left hand CP sx, and tendon removal. [facility] 01/2018 Surgical History Upper Endoscopic Ultrasound with [...] knee diagnostic arthroscopy-Dr. Merrill 03/07/2021 Hospitalization History [facility]- Depression/A nxiety 14 yo Hospitalization History [facility]- [place]- depre ssion 18 yo Hospitalization History Father Verenice- Janki- ezequiel d facilty- tx of depression. [age]yo Hospitalization History Hemorrhoidectomy with remova l of a mixed hemorrhoidal bundles at the left lateral and right anterior and posterior positions. 01/11/2016 Hospitalization History CABG: [facility] 11/11/16 Hospitalization History Rehab [facility] 11/21 Hospitalization History POST RIGHT HAND HAND AND ELBOW SURGE RY 10/2019 Hospitalization History [facility] ED- Post-op problem, left foot c ellulitis 08/03/2020 Hospitalization History Right Ulnar Nerve 01/2020 Hospitalization History [facility] ED-AMA 01/21/2021 Hospitalization History [facility] ED-Right shoulder injury 021 Hospitalization History [facility] ED-Right foot pain 02/05/2021 Hospitalization History [facility] ED-Right ankle pain 02/19/2021 Hospitalization History [facility] ED-Right foot pain 02/22/2021 Hospitalization History [facility] ileus, small bowel obstruction Hospitalization History [facility] - partial small bowel obstructio n 03/09/21 Hospitalization History [facility] - atypical chest pains 03/2021 Goals Section No Information Health Concerns No Information MEDICAL EQUIPMENT No Information MENTAL STATUS No Information FUNCTIONAL STATUS No Information ASSESSMENTS No Information PLAN OF TREATMENT Medication Medication Name Sig Start Date Stop Date Montelukast Sodium 10 MG TAKE ONE TABLET BY MOUTH @5PM for 28 Cetirizine HCl 10 MG TAKE ONE TABLET BY MOUTH @5PM for 28 Atorvastatin Calcium 40 MG TAKE ONE TABLET BY MOUTH @8AM for 28 February Use - as directed Extensor piece for inhaler J30.9 for 99 days Aug, hydrOXYzine HCl 25 MG 1 tablet 30 at bedtime for 30 day(s) 18 Oc 2020 tiZANidine HCl 4 MG 1 tablet as needed Orally Th ree times a day NEEDED FOR SEVERE PAIN for 30 Days Next Appt Details Provider Name:Debbie Thomson, 2021-09-04 01:15:00 PM, [address] [facility], , [place], [place], [facility] [phone] Provider Name:García Helm, 2021-10-16 02:45:00 PM, [address], , [place], [address], Provider Name:Daisy Hicks, 2021-10-25 02:00:00 PM, [address] [facility] [phone], [place], [address], Insurance Providers Payer Name Payer Address Payer Phone Insured Name Patient Relati onship to Insured Coverage Start Date Coverage End Date [facility] COMMUNITY PLAN [facility] [address] [facility] [address] DEANNA AN self
--- OUTSIDE RECORDS SUMMARY | 2021-09-15 16:20 | CCD | Continuity of Care Document ---
Author Author Rinku XIE MD Organization Unknown Address [address] [facility] [place] [address] Phone [phone] Care Team Providers Care Systems Test Engineer Name Role Phone Lolis Choudhary MEDICAL EXAMINER-C AUTM [phone] [facility] - [phone] AUTM Damaso Hampton MD AUTM [phone] Problems Description No Active Problems Social History [...] Available Procedures Date Code Description Status 07/19/2021 98323 Office/Outpatient Established Lo w MDM 20-29 Min Completed 07/03/2021 13208 Office/Outpatient Established Lo w MDM 20-29 Min Completed 06/21/2021 65349 Office/Outpatient Established Mo d MDM 30-39 Min Completed 06/12/2021 44337 Office/Outpatient Established Lo w MDM 20-29 Min Completed 06/12/2021 79316 X-Ray Hand Three Views Completed 05/21/2021 79535 Office/Outpatient Established Lo w MDM 20-29 Min Completed 05/21/2021 75675 X-Ray Hand Three Views Completed 05/21/2021 10097 Apply Cast Short Arm Completed 03/20/2021 55711 Office/Outpatient Established Lo w MDM 20-29 Min Completed Medical Devices Description No Information Available Encounters Type Date Location Provider Dx Diagnosis Office Visit 07/19/2021 1:00p [place] Aidee LopezCristina JODI Xie S67.02x D Crushing injury of left thumb, subsequent encounter M18.12 Unil primary osteoarth of fi rst carpometacarp joint, l hand Office Visit 07/03/2021 1:45p [place] FRANTZ Willingham S80.02xA Contusion of left knee, initial encounter M17.12 Unilateral primary osteoarth ritis, left knee Office Visit 06/21/2021 3:30p [place] Aidee Xie PA-C S67.02x D Crushing injury of left thumb, subsequent encounter M18.12 Unil primary osteoarth of fi rst carpometacarp joint, l hand Office Visit 05/21/2021 2:45p [place] Marielena Rivera PA-C S6 7.02xA Crushing injury of left thumb, initial encounter M18.12 Unil primary osteoarth of fi rst carpometacarp joint, l hand M17.12 Unilateral primary osteoarth ritis, left knee Assessments Date Code Description Provider 07/19/2021 S67.02xD [...] thumb, s ubsequent encounter Aidee Xie PA-C 06/21/2021 M18.12 Unilateral primary o steoarthritis of first carpometacarpal joint, left hand Aidee Xie PA-C 06/19/2021 S67.02xD Crushing injury of left thumb, s ubsequent encounter Aidee Briscoe JODI Xie 06/19/2021 M18.12 Unilateral primary o steoarthritis of first carpometacarpal joint, left hand Aidee Briscoe JODI Xie 06/12/2021 S67.02xD Crushing injury of left thumb, s ubsequent encounter Aidee Briscoe JODI Xie 06/12/2021 S67.02xD Crushing injury of left thumb, s ubsequent encounter Aidee Briscoe JODI Xie 06/12/2021 M18.12 Unilateral primary o steoarthritis of first carpometacarpal joint, left hand Aidee Briscoe JODI Xie 06/12/2021 M18.12 Unilateral primary o steoarthritis of first carpometacarpal joint, left hand Aidee Briscoe JODI Xie 05/21/2021 M17.12 Unilateral primary osteoarthriti s, left [...] shoulder, not specified as traumatic Enrique Ahuja, PCristinaA. 03/20/2021 M19.011 Primary osteoarthritis, right [facility] Enrique Ahuja, PDeejay. Plan of Treatment 07/19/2021 - Aidee Rachna JODI Xie* S67.02xD Crushing injury of left thumb, subsequent encounter* Follow up:* f/u please put all images on disc for patient. Thank you * M18.12 Unilateral primary osteoarthritis of first carpometacarpal joint, left hand Functional Status Description No Information Available Mental Status Description No Information Available Referrals Refer to Dr Reason for Referral Status Appt Date Aidee Xie PA-C M25.562 PAIN IN LEFT KNEE. Created [address] [facility] [address] [place] [phone] Aidee Xie PA-C REFERRAL APPROVED PER [facility] FOR REFERRAL TO DR. SUSANNE FIGUEROA. DG Created [address] [place] [address] [phone] Aidee Xie PA-C MRI APPROVED PER [facility] WE[facility] FOR MRI OF LEFT HAND (16175) TO TRIAGE. DG Created [address] [place] [address] [phone] Efrain Vidal MD M79.645 PAIN IN LEFT FINGER(S) Created [address] [facility], [address] [place] [address] [phone] Marielena Rivera PA-C FLUORO INJ NO AUTH REQUIRED PER [facility] FOR FLUOROSCOPIC INJECTION TO RIGHT SHOULDER (32788, 61131) TO VICENTE Meade DG Created [address] [place] [address] [phone] Enrique Ahuja PA OV M47.817 BACK Created [address] [place] [address] [phone]
--- OUTSIDE RECORDS SUMMARY | 2021-09-15 16:20 | CCD ---
Author Author [facility] Organization [facility] Address Unknown Phone Unavailable Care Team Providers Care Mold Capper Name Role Phone Debbie Thomson Unavailable PROBLEMS Type Condition ICD9-CM Code [id number] Code Onset Dates Condition S tatus W/U Status Risk SNOMED Code Notes Problem Anxiety disorder, unspecified F41.9 Active confirm ed 086437931 Problem Intervertebral disc disorder with radiculopathy of lumbar region M51.16 Active confirmed 08338487 Problem Obesity, unspecified E66.9 Active confirmed 61548410240398 Problem 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 Active confirmed 82833 01 Problem Disc displacement, 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 Active confirmed 273037356321773 Problem Seborrheic keratoses L82.1 Active confirmed 144289789 Problem Sebaceous hyperplasia L73.8 Active confirmed 998984702 Problem Spondylosis without myelopathy or radiculopathy, lumbosacral region M47.817 Active confirmed 83217434 Problem Depression F32.9 Active confirmed 56773544 Problem Bilateral serous otitis media, unspecified chronicity H65.93 Active confirmed 73896868 Problem Allergic rhinitis J30.9 Active confirmed 61 101387 Problem Essential hypertension I10 Active confirmed 87641626 Problem Coronary artery disease invo lving [place] coronary artery of [place] heart, angina presence unspecified I25.10 Active confirmed 9984078770790 Problem Stage 3 chronic kidney disease N18.3 Active confir med 869574008 Problem Celiac disease K90.0 Active confirmed 52271 1005 Problem Obstructive sleep apnea on CPAP G47.33 Active confi rmed 74015482 Problem CKD (chronic kidney disease), stage III N18.3 Active confirmed 238949425 Problem Hyperlipidemia E78.5 Active confirmed 57654 004 Problem Hypothyroidism, unspecified type E03.9 Active conf irmed 65188574 Problem Dysfunction of both eustachian tubes H69.83 Act forrest confirmed 72499745 Problem Gastroesophageal reflux disease with esophagitis K 21.0 Active confirmed 121823317 Problem Carpal tunnel syndrome of right wrist G56.01 Ac tive confirmed 42971778 Problem Granuloma annulare L92.0 Active confirmed 6 8187973 Problem Wound of right buttock, initial encounter S31.819A Active confirmed 542106130 Problem Sacroiliitis M46.1 Active confirmed 7071163 9 Problem Unspecified open wound of right buttock, subsequ ent encounter S31.819D Active confirmed 58659498725386822 Problem Arthritis of lumbosacral spine M47.817 Active confi rmed 317322804 Problem 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 Active confirmed 997528366 Problem Allergic contact dermatitis, unspecified trigger L 23.9 Active confirmed 825260929 Problem Melanocytic nevi of trunk D22.5 Active confirmed 735116385 Problem Spondylosis of lumbar region without myelopathy or radiculopathy M47.816 Active confirmed 582340691 Problem Inflammation of both ear canals H60.93 Active confi rmed 7440546 Problem Other chronic pain G89.29 Active confirmed 8 9627543 Problem Other hammer toe(s) (acquired), right foot M20.41 Active confirmed 90451095 Problem Liver cyst K76.89 Active confirmed 11491614 ALLERGIES Allergen (clinical drug ingredient) Drug/Non Drug Allergy do cumented on EMR Reaction Allergy Type Onset Date Status Latex Latex Rash Drug Allergy Active Gluten Gluten Rash Drug Allergy Active Adhesive Tape rash Drug Allergy Active Codeine Phosphate (For Allergies Use Only) Nausea/Vomiting Drug Allergy Active ENCOUNTERS from 1967 to 2021-09-09 Encounter Location Date Provider Diagnosis [facility] Dermatology [address] [place] [address] [place] [address] Sep, Debbie Berto Skin tag L91.8 and Skin irri tation R23.8 IMMUNIZATIONS Vaccine Route Administration Date Status COVID-19 [...] Education Language: Question Answer Notes Languages spoken: Lao Confucianist: Question Answer Notes Confucianist 21 Yazidism No baptism beliefs that would impact health care. Drug [...] FOR REFERRAL No Information VITAL SIGNS Weight 308 lbs Sep, Weight-kg 139.71 kg Sep, Height 68 in Sep, BMI 46.83 kg/m2 Sep, Blood pressure systolic 140 mm Hg Sep, Blood pressure diastolic 88 mm Hg Sep, MEDICATIONS Medication SIG (Take, Route, Frequency, Duration) Notes Start Da te End Date Status Omeprazole 40 MG TAKE ONE CAPSULE BY MOUTH @8AM ON AN EMPTY STOMACH O ral Active Atorvastatin Calcium 40 MG TAKE ONE TABLET BY MOUTH @8AM for 28 Active Aspirin 81 MG 1 tablet Orally Once a day Aug, Active Pidtdcgy-Rseklhgnd-AN 3.5-10620-7 4 drops into affecte d ear Otic [...] TABLET BY MOUTH @8AM for 28 Active [place] Saline Nasal - USE DIRECTED DAILY FOUR [...] Information RESULTS No Results REASON FOR VISIT RASH F/U MEDICAL (GENERAL) HISTORY Type Description Date Medical History Depression/Anxiety- Dr Enriquez. /therapist Q2 weeks Medical History Hyperlipidemia Medical History GERD with Barretts: Repeat EGD in 8 Medical History vitamin d def Medical History FRAN: following with Pulmonol ogy: compliant with CPAP-pulmonology Medical History CAD: Bypass with autologous vein: Dr. Shelley munguia at [facility] Medical History ECHO 10/17/2016. Hypertensive heart [...] EGD- [facility] 02/02/15 Surgical History hemorrhoidectomy 4-03-20 Surgical History left foot bunionectomy with first metatarsal osteostomy-Dr. Chand 03/31/16 Surgical History CABG- 4 vessel at [place] 11/11/16 Surgical History Left hand CP sx, and tendon removal. [facility] 01/2018 Surgical History Upper Endoscopic Ultrasound with [...] knee diagnostic arthroscopy-Dr. Merrill 03/07/2021 Hospitalization History [facility] [place]- Depression/A nxiety 14 yo Hospitalization History [facility] [place]- depre ssion 18 yo Hospitalization History Father [place]- Janki- ezequiel d facilty- tx of depression. 16-20yo Hospitalization History Hemorrhoidectomy with remova l of a mixed hemorrhoidal bundles at the left lateral and right anterior and posterior positions. 01/11/2016 Hospitalization History CABG: [facility] 11/11/16 Hospitalization History Rehab [facility] 11/21 Hospitalization History POST RIGHT HAND HAND AND ELBOW SURGE RY 10/2019 Hospitalization History [facility] ED- Post-op problem, left foot c ellulitis 08/03/2020 Hospitalization History Right Ulnar Nerve 01/2020 Hospitalization History [facility] ED-AMA 01/21/2021 Hospitalization History [facility] ED-Right shoulder injury 021 Hospitalization History [facility] ED-Right foot pain 02/05/2021 Hospitalization History [facility] ED-Right ankle pain 02/19/2021 Hospitalization History [facility] ED-Right foot pain 02/22/2021 Hospitalization History [facility] ileus, small bowel obstruction Hospitalization History [facility] - partial small bowel obstructio n 03/09/21 Hospitalization History [facility] - atypical chest pains 03/2021 Goals Section No Information Health Concerns No Information MEDICAL EQUIPMENT No Information MENTAL STATUS No Information FUNCTIONAL STATUS No Information ASSESSMENTS Encounter Date Diagnosis Assessment Notes Treatment Notes Treatm ent Clinical Notes Sep, Skin tag (ICD-10 - L91.8) Lesion(s) destructed in office today with electrocautery. Area was prepped with alcohol pad, destruction with cautery to irritated lesions, followed by application of vaseline. Sep, Skin irritation (ICD-10 - R23.8) Sep, Other Improved with I LK at [facility]. No additional treatment required today Mild cleansers and moisturizers (sampled given). Add hydroxyzine nightly. PLAN OF TREATMENT Medication Medication Name Sig Start Date Stop Date hydrOXYzine HCl 25 MG 1 tablet 30 at bedtime for 30 day(s) Treatment Notes Assessment Notes Clinical Notes Skin tag Lesion(s) destructed in office today with electrocautery. Area was prepped with alcohol pad, destruction with cautery to irritated lesions, followed by application of vaseline. Next Appt Details prn Reason: Provider Name:Chantal Lemus, 11:30:00 AM, [address] [facility], , [place], [address], Provider Name:García Helm, 2021-10-16 02:45:00 PM, [address], , [place], [address], Provider Name:Daisy Hicks, 2021-10-25 02:00:00 PM, [address] [facility], , [place], [address], Insurance Providers Payer Name Payer Address Payer Phone Insured Name Patient Relati onship to Insured Coverage Start Date Coverage End Date [facility] COMMUNITY PLAN [facility] [address] [facility] [id number] [phone] DEANNA AN self
--- OUTSIDE RECORDS SUMMARY | 2021-09-15 16:20 | CCD ---
Author Author [facility] Organization [facility] Address Unknown Phone Unavailable Care Team Providers Care Muffle Worker Name Role Phone Maureen Martin Unavailable PROBLEMS Type Condition ICD9-CM Code QEZ29-IE Code Onset Dates Condition S tatus W/U Status Risk SNOMED Code Notes Problem Anxiety disorder, unspecified F41.9 Active confirm ed 304314788 Problem Intervertebral disc disorder with radiculopathy of lumbar region M51.16 Active confirmed 42723540 Problem Obesity, unspecified E66.9 Active confirmed 30609338864173 Problem 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 Active confirmed 95802 01 Problem Disc displacement, 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 Active confirmed 675017348920142 Problem Seborrheic keratoses L82.1 Active confirmed 050690435 Problem Sebaceous hyperplasia L73.8 Active confirmed 176578779 Problem Spondylosis without myelopathy or radiculopathy, lumbosacral region M47.817 Active confirmed 98189411 Problem Depression F32.9 Active confirmed 92072674 Problem Bilateral serous otitis media, unspecified chronicity H65.93 Active confirmed 70389940 Problem Allergic rhinitis J30.9 Active confirmed 61 670381 Problem Essential hypertension I10 Active confirmed 85032949 Problem Coronary artery disease invo lving three affiliated coronary artery of three affiliated heart, angina presence unspecified I25.10 Active confirmed 7099985381886 Problem Stage 3 chronic kidney disease N18.3 Active confir med 512881680 Problem Celiac disease K90.0 Active confirmed 21363 1005 Problem Obstructive sleep apnea on CPAP G47.33 Active confi rmed 43000501 Problem CKD (chronic kidney disease), stage III N18.3 Active confirmed 958882963 Problem Hyperlipidemia E78.5 Active confirmed 52886 004 Problem Hypothyroidism, unspecified type E03.9 Active conf irmed 39268065 Problem Dysfunction of both eustachian tubes H69.83 Act forrest confirmed 19447657 Problem Gastroesophageal reflux disease with esophagitis K 21.0 Active confirmed 012976159 Problem Carpal tunnel syndrome of right wrist G56.01 Ac tive confirmed 65203445 Problem Granuloma annulare L92.0 Active confirmed 6 0713642 Problem Wound of right buttock, initial encounter S31.819A Active confirmed 433466017 Problem Sacroiliitis M46.1 Active confirmed 6338125 9 Problem Unspecified open wound of right buttock, subsequ ent encounter S31.819D Active confirmed 11716526673768575 Problem Arthritis of lumbosacral spine M47.817 Active confi rmed 584235109 Problem 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 Active confirmed 263515889 Problem Allergic contact dermatitis, unspecified trigger L 23.9 Active confirmed 943914336 Problem Melanocytic nevi of trunk D22.5 Active confirmed 992740860 Problem Spondylosis of lumbar region without myelopathy or radiculopathy M47.816 Active confirmed 325929544 Problem Inflammation of both ear canals H60.93 Active confi rmed 5960501 Problem Other chronic pain G89.29 Active confirmed 8 3809959 Problem Other hammer toe(s) (acquired), right foot M20.41 Active confirmed 64887760 Problem Liver cyst K76.89 Active confirmed 95570175 ALLERGIES Allergen (clinical drug ingredient) Drug/Non Drug Allergy do cumented on EMR Reaction Allergy Type Onset Date Status Latex Latex Rash Drug Allergy Active Gluten Gluten Rash Drug Allergy Active Adhesive Tape rash Drug Allergy Active Codeine Phosphate (For Allergies Use Only) Nausea/Vomiting Drug Allergy Active ENCOUNTERS from 1967 to 2021-08-28 Encounter Location Date Provider Diagnosis [facility] [address] [facility] [facility] 3rd Floor [phone] [place] [address] Aug, Maureen Martin Sacroiliitis M46.1 IMMUNIZATIONS Vaccine Route Administration Date Status Influenza 6mo & up Fluzone IM Intramuscular Jul 16, 2017 Admi nistered Influenza 18 yrs & older Flublok IM Intramuscular Jul 08, 2018 Administered COVID-19 dose #2 given elsewhere Unspecified Unknown Apr , 2021 Administered Pneumococcal Adult 0.5mL Pneumovax 23 IM [...] Education Language: Question Answer Notes Languages spoken: Rwandan Religious: Question Answer Notes Religious 21 Yazidi No orthodoxy beliefs that would impact health care. Drug [...] FOR SEVERE PAIN for 30 Days Active MiraLax 17 GM/SCOOP 17gm scoop mixed with water Orally Once a day as needed for 30 Days Mar, Active [place] Saline Nasal - USE DIRECTED DAILY FOUR TIMES DAILY NEEDED for 20 Active Atorvastatin Calcium 40 MG TAKE ONE TABLET BY MOUTH @8AM for 28 Active hydrOXYzine HCl 25 MG 1 tablet 30 at bedtime for 30 day(s) Jul, Active Fluticasone Propionate 50 MCG/ACT instill ONE SPRAY IN EACH NOSTRIL TWICE DAILY NEEDED for 30 Active Levothyroxine Sodium 25 MCG TAKE ONE TABLET BY MOUTH @8AM for 28 Active traMADol HCl 50 MG 1 tablet as needed Orally q6h prn mdd4 for 30 Days Sep, Active Ondansetron HCl 8 MG 1 tablet as needed Orally th ree times daily only as needed for nausea or vomiting for 10 day(s) May, Active Trihexyphenidyl HCl 2 MG TAKE ONE TABLET BY MOUTH TWICE DAILY Orally bid Active Escitalopram Oxalate 10 MG 1 tablet Oral Once a day along with a 20 mg tablet Active Pbwrxwcn-Cbyljhpxa-YV 3.5-38475-2 4 drops into affecte d ear Otic Three times a day for 7 day(s) Mar, Active Topiramate 50 MG with a 25 mg tab for total of 75 mgs Orally @ 1700 Active Docusate Sodium 100 MG TAKE ONE CAPSULE BY MOUTH @8AM for 28 Active Aspirin 81 MG 1 tablet Orally Once a day Aug, Active Metoprolol Tartrate 25 mg 1/2 tab Oral Daily Active Ventolin HFA 108 (90 Base) MCG/ACT INHALE TWO PUFFS BY MOUTH EVERY FOUR HOURS NEEDED Inhalation - for 30 days 2 days ago Active Triamcinolone Acetonide 0.1 % 1 application Externally Twice a day to dorsal hands for 14 days May, Active Vitamin D 1000 UNIT 2 tablets with meal Orally Once a day for 90 day(s) Dec, Active Multivitamin Adult - as directed Orally [...] Information RESULTS No Results REASON FOR VISIT MEDICATION MEDICAL (GENERAL) HISTORY Type Description Date Medical History Depression/Anxiety- Dr Enriquez. /therapist Q2 weeks Medical History Hyperlipidemia Medical History GERD with Barretts: Repeat EGD in Medical History vitamin d def Medical History FRAN: following with Pulmonol ogy: compliant with CPAP-pulmonology Medical History CAD: Bypass with autologous vein: Dr. Shelley munguia at [facility] Medical History ECHO 10/17/2016. Hypertensive heart [...] 03/31/16 Surgical History CABG- 4 vessel at [place] 11/11/16 Surgical History Left hand CP sx, and tendon removal. [facility] 01/2018 Surgical History Upper Endoscopic Ultrasound with [...] knee diagnostic arthroscopy-Dr. Merrill 03/07/2021 Hospitalization History [facility] Psych [facility]om- Depression/A nxiety 14 yo Hospitalization History [facility]- depre ssion 18 yo Hospitalization History Father Kel bowers facilty- tx of depression. [age]yo Hospitalization History Hemorrhoidectomy with remova l of a mixed hemorrhoidal bundles at the left lateral and right anterior and posterior positions. 01/11/2016 Hospitalization History CABG: [facility] 11/11/16 Hospitalization History Rehab [facility] 11/21 Hospitalization History POST RIGHT HAND HAND AND ELBOW SURGE RY 10/2019 Hospitalization History [facility] ED- Post-op problem, left foot c ellulitis 08/03/2020 Hospitalization History Right Ulnar Nerve 01/2020 Hospitalization History [facility] ED-AMA 01/21/2021 Hospitalization History [facility] ED-Right shoulder injury 021 Hospitalization History [facility] ED-Right foot pain 02/05/2021 Hospitalization History [facility] ED-Right ankle pain 02/19/2021 Hospitalization History [facility] ED-Right foot pain 02/22/2021 Hospitalization History [facility] ileus, small bowel obstruction Hospitalization History [facility] - partial small bowel obstructio n 03/09/21 Hospitalization History [facility] - atypical chest pains 03/2021 Goals Section No Information Health Concerns No Information MEDICAL EQUIPMENT No Information MENTAL STATUS No Information FUNCTIONAL STATUS No Information ASSESSMENTS Encounter Date Diagnosis Assessment Notes Treatment Notes Treatm ent Clinical Notes Aug, Sacroiliitis (ICD-10 - M46.1) PLAN OF TREATMENT Medication Medication Name Sig Start Date Stop Date Montelukast Sodium 10 MG TAKE ONE TABLET BY MOUTH @5PM for 28 Cetirizine HCl 10 MG TAKE ONE TABLET BY MOUTH @5PM for 28 tiZANidine HCl 4 MG 1 tablet as needed Orally Th ree times a day NEEDED FOR SEVERE PAIN for 30 Days Atorvastatin Calcium 40 MG TAKE ONE TABLET BY MOUTH @8AM for 28 hydrOXYzine HCl 25 MG 1 tablet 30 at bedtime for 30 day(s) 18 Oc , 2020 Next Appt Details Provider Name:Debbie Thomson, 2021-09-04 01:15:00 PM, [address] [place] [address], , [place], [address], Provider Name:García Helm, 2021-10-16 02:45:00 PM, [address] [place] [address], , [place], [address], Insurance Providers Payer Name Payer Address Payer Phone Insured Name Patient Relati onship to Insured Coverage Start Date Coverage End Date [facility] [employer] [facility] [address] [facility] [phone] DEANNA AN self
--- OUTSIDE RECORDS SUMMARY | 2021-09-15 16:20 | CCD | Continuity of Care Document ---
Author Author Rinku XIE MD Organization Unknown Address [address] [facility] [place] [address] Phone [phone] Care Team Providers Care Ap Operator Name Role Phone Lolis Choudhary VICE PRESIDENT MEDIA RELATIONS-C AUTM [phone] [facility] - [phone] AUTM [phone] Damaso Hampton MD AUTM [phone] Problems Description No Active Problems Social History [...] Available Procedures Date Code Description Status 07/19/2021 26157 Office/Outpatient Established Lo w MDM 20-29 Min Completed 07/03/2021 67546 Office/Outpatient Established Lo w MDM 20-29 Min Completed 06/21/2021 36244 Office/Outpatient Established Mo d MDM 30-39 Min Completed 06/12/2021 19813 Office/Outpatient Established Lo w MDM 20-29 Min Completed 06/12/2021 17099 X-Ray Hand Three Views Completed 05/21/2021 76003 Office/Outpatient Established Lo w MDM 20-29 Min Completed 05/21/2021 99095 X-Ray Hand Three Views Completed 05/21/2021 35881 Apply Cast Short Arm Completed 03/20/2021 94881 Office/Outpatient Established Lo w MDM 20-29 Min Completed Medical Devices Description No Information Available Encounters Type Date Location Provider Dx Diagnosis Office Visit 07/19/2021 1:00p [place] Aidee LopezCrsitina JODI Xie S67.02x D Crushing injury of left thumb, subsequent encounter M18.12 Unil primary osteoarth of fi rst carpometacarp joint, l hand Office Visit 07/03/2021 1:45p [place] FRANTZ Willingham S80.02xA Contusion of left knee, initial encounter M17.12 Unilateral primary osteoarth ritis, left knee Office Visit 06/21/2021 3:30p [place] Aidee Xie PA-C S67.02x D Crushing injury of left thumb, subsequent encounter M18.12 Unil primary osteoarth of fi rst carpometacarp joint, l hand Office Visit 05/21/2021 2:45p [place] Marielena Rivera PA-C S6 7.02xA Crushing injury [...] Ahuja, PCristinaA. 03/20/2021 M19.011 Primary osteoarthritis, right [facility] Enrique Ahuja, PDeejay. Plan of Treatment [...] M25.562 PAIN IN LEFT KNEE. Created [address] [facility] [address] [place] [phone] Aidee Xie PA-C REFERRAL APPROVED PER [facility] FOR REFERRAL TO DR. SUSANNE FIGUEROA. DG Created [address] [place] [address] [phone] Aidee Xie PA-C MRI APPROVED PER [facility] FOR MRI OF LEFT HAND (69316) TO TRIAGE. DG Created [address] [place] [address] [phone] Efrain Vidal MD M79.645 PAIN IN LEFT FINGER(S) Created [address] [facility], [address] [place] [address] [phone] Marielena Rivera PA-C FLUORO INJ NO AUTH REQUIRED PER [facility] FOR FLUOROSCOPIC INJECTION TO RIGHT SHOULDER (58847, 02807) TO VICENTE Meade DG Created [address] [place] [address] [phone] Enrique Ahuja PA OV M47.817 BACK Created [address] [place] [address] [phone]
--- OUTSIDE RECORDS SUMMARY | 2021-09-15 16:20 | CCD ---
Author Author [facility] Organization [facility] Address Unknown Phone Unavailable Care Team Providers Care Zipper Repairer Name Role Phone Chantal Lemus Unavailable PROBLEMS Type Condition ICD9-CM Code WRC40-CG Code Onset Dates Condition S tatus W/U Status Risk SNOMED Code Notes Problem Anxiety disorder, unspecified F41.9 Active confirm ed 927540339 Problem Intervertebral disc disorder with radiculopathy of lumbar region M51.16 Active confirmed 42824672 Problem Obesity, unspecified E66.9 Active confirmed 17535116418666 Problem 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 Active confirmed 64914 01 Problem Disc displacement, 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 Active confirmed 129283597783984 Problem Seborrheic keratoses L82.1 Active confirmed 664188391 Problem Sebaceous hyperplasia L73.8 Active confirmed 959030899 Problem Spondylosis without myelopathy or radiculopathy, lumbosacral region M47.817 Active confirmed 23158426 Problem Depression F32.9 Active confirmed 34372415 Problem Bilateral serous otitis media, unspecified chronicity H65.93 Active confirmed 26949344 Problem Allergic rhinitis J30.9 Active confirmed 61 342986 Problem Essential hypertension I10 Active confirmed 00711131 Problem Coronary artery disease invo lving [place] coronary artery of [place] heart, angina presence unspecified I25.10 Active confirmed 5277136232614 Problem Stage 3 chronic kidney disease N18.3 Active confir med 514709893 Problem Celiac disease K90.0 Active confirmed 97376 1005 Problem Obstructive sleep apnea on CPAP G47.33 Active confi rmed 12785749 Problem CKD (chronic kidney disease), stage III N18.3 Active confirmed 670671814 Problem Hyperlipidemia E78.5 Active confirmed 96591 004 Problem Hypothyroidism, unspecified type E03.9 Active conf irmed 73470278 Problem Dysfunction of both eustachian tubes H69.83 Act forrest confirmed 24713574 Problem Gastroesophageal reflux disease with esophagitis K 21.0 Active confirmed 460624083 Problem Carpal tunnel syndrome of right wrist G56.01 Ac tive confirmed 75981174 Problem Granuloma annulare L92.0 Active confirmed 6 8656258 Problem Wound of right buttock, initial encounter S31.819A Active confirmed 665885961 Problem Sacroiliitis M46.1 Active confirmed 9623771 9 Problem Unspecified open wound of right buttock, subsequ ent encounter S31.819D Active confirmed 27248541514397952 Problem Arthritis of lumbosacral spine M47.817 Active confi rmed 138143603 Problem 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 Active confirmed 533373388 Problem Allergic contact dermatitis, unspecified trigger L 23.9 Active confirmed 569794128 Problem Melanocytic nevi of trunk D22.5 Active confirmed 003084815 Problem Spondylosis of lumbar region without myelopathy or radiculopathy M47.816 Active confirmed 408924843 Problem Inflammation of both ear canals H60.93 Active confi rmed 4775022 Problem Other chronic pain G89.29 Active confirmed 8 5471828 Problem Other hammer toe(s) (acquired), right foot M20.41 Active confirmed 45072457 Problem Liver cyst K76.89 Active confirmed 49461650 ALLERGIES Allergen (clinical drug ingredient) Drug/Non Drug Allergy do cumented on EMR Reaction Allergy Type Onset Date Status Latex Latex Rash Drug Allergy Active Gluten Gluten Rash Drug Allergy Active Adhesive Tape rash Drug Allergy Active Codeine Phosphate (For Allergies Use Only) Nausea/Vomiting Drug Allergy Active ENCOUNTERS from 1967 to 2021-09-13 Encounter Location Date Provider Diagnosis [place] [address] [facility] [phone] [place] [address] Sep, Chantal Servage Itching of ear L29.9 IMMUNIZATIONS Vaccine Route Administration Date Status Zoster [...] Education Language: Question Answer Notes Languages spoken: Polish Jain: Question Answer Notes Jain 21 Advent No adventism beliefs that would impact health [...] BY MOUTH TWICE DAILY Orally bid Active Bath Saline Nasal - use as directed daily [...] 25 mg 1/2 tab Oral Daily Active Flagrhtq-Owsenenbz-DP 3.5-83135-3 4 drops into affecte d ear Otic Three times a day for 7 day(s) 14 Mar, 2021 Active PROCEDURES No Information RESULTS No Results REASON FOR VISIT DermOtic 0.01% oil MEDICAL (GENERAL) HISTORY Type Description Date Medical History Depression/Anxiety- Dr Enriquez. /therapist Q2 weeks Medical History Hyperlipidemia Medical History GERD with Barretts: Repeat EGD in 10 Medical History vitamin d def Medical History FRAN: following with Pulmonol ogy: compliant with CPAP-pulmonology Medical History CAD: Bypass with autologous vein: [facility]. Shelley munguia at [facility] Medical History ECHO 10/17/2016. Hypertensive [...] 03/31/16 Surgical History CABG- 4 vessel at [place] 11/11/16 Surgical History Left hand CP sx, and tendon removal. [facility] 01/2018 Surgical History Upper Endoscopic Ultrasound [...] knee diagnostic arthroscopy-Dr. Merrill 03/07/2021 Hospitalization History [facility]- Depression/A nxiety 14 yo Hospitalization History [facility] [place]- depre ssion 18 yo Hospitalization History Father [place] [place]- ezequiel d facilty- tx of depression. [age]yo Hospitalization History Hemorrhoidectomy with remova l of a mixed hemorrhoidal bundles at the left lateral and right anterior and posterior positions. 01/11/2016 Hospitalization History CABG: [facility] 11/11/16 Hospitalization History Rehab [facility] 11/21 Hospitalization History POST RIGHT HAND HAND AND ELBOW SURGE RY 10/2019 Hospitalization History [facility] ED- Post-op problem, left foot c ellulitis 08/03/2020 Hospitalization History Right Ulnar Nerve 01/2020 Hospitalization History [facility] ED-AMA 01/21/2021 Hospitalization History [facility] ED-Right shoulder injury 021 Hospitalization History [facility] ED-Right foot pain 02/05/2021 Hospitalization History [facility] ED-Right ankle pain 02/19/2021 Hospitalization History [facility] ED-Right foot pain 02/22/2021 Hospitalization History [facility] ileus, small bowel obstruction Hospitalization History [facility] - partial small bowel obstructio n 03/09/21 Hospitalization History [facility] - atypical chest pains 03/2021 Goals Section No Information Health Concerns No Information MEDICAL EQUIPMENT No Information MENTAL STATUS No Information FUNCTIONAL STATUS No Information ASSESSMENTS Encounter Date Diagnosis Assessment Notes Treatment Notes Treatm ent Clinical Notes Sep, Itching of ear (ICD-10 - L29.9) PLAN OF TREATMENT Medication Medication Name Sig Start Date Stop Date Bath Saline Nasal - use as directed daily four t imes daily as needed Nasally for 30 days DermOtic 0.01 % 5 drops into both ears Otic Twice a day for 7 day(s) Mar, Next Appt Details Provider Name:García Helm, 2021-10-16 02:45:00 PM, [address], , [place], [address], Provider Name:Daisy Hicks, 2021-10-25 02:00:00 PM, [address] [facility], , [place], [address], Insurance Providers Payer Name Payer Address Payer Phone Insured Name Patient Relati onship to Insured Coverage Start Date Coverage End Date Subscriber Number Group Nu mber [facility] [address] [facility] [phone] DEANNA AN [facility] [id number]
--- OUTSIDE RECORDS SUMMARY | 2021-09-15 16:20 | CCD ---
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 Active confirmed 14176 01 Problem Disc displacement, 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 Active confirmed 089543857804318 Problem Seborrheic keratoses L82.1 Active confirmed 471651105 Problem Sebaceous hyperplasia L73.8 Active confirmed 929129919 Problem Spondylosis without myelopathy or radiculopathy, lumbosacral region M47.817 Active confirmed 35897466 Problem Depression F32.9 Active confirmed 29215665 Problem Bilateral serous otitis media, unspecified chronicity H65.93 Active confirmed 00543983 Problem Allergic rhinitis J30.9 Active confirmed 61 667466 Problem Essential hypertension I10 Active confirmed 72744215 Problem Coronary artery disease invo lving [place] coronary artery of [place] heart, angina presence unspecified I25.10 Active confirmed 1735805311060 Problem Stage 3 chronic kidney disease N18.3 Active confir med 746847068 Problem Celiac disease K90.0 Active confirmed 32560 1005 Problem Obstructive sleep apnea on CPAP G47.33 Active confi rmed 41617414 Problem CKD (chronic kidney disease), stage III N18.3 Active confirmed 332563148 Problem Hyperlipidemia E78.5 Active confirmed 30494 004 Problem Hypothyroidism, unspecified type E03.9 Active conf irmed 12755158 Problem Dysfunction of both eustachian tubes H69.83 Act forrest confirmed 06001089 Problem Gastroesophageal reflux disease with esophagitis K 21.0 Active confirmed 514655183 Problem Carpal tunnel syndrome of right wrist G56.01 Ac tive confirmed 25919460 Problem Granuloma annulare L92.0 Active confirmed 6 4335405 Problem Wound of right buttock, initial encounter S31.819A Active confirmed 257053893 Problem Sacroiliitis M46.1 Active confirmed 0649421 9 Problem Unspecified open wound of right buttock, subsequ ent encounter S31.819D Active confirmed 34443134978299272 Problem Arthritis of lumbosacral spine M47.817 Active confi rmed 294916364 Problem 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 Active confirmed 782800623 Problem Allergic contact dermatitis, unspecified trigger L 23.9 Active confirmed 486641009 Problem Melanocytic nevi of trunk D22.5 Active confirmed 811215320 Problem Spondylosis of lumbar region without myelopathy or radiculopathy M47.816 Active confirmed 819056223 Problem Inflammation of both ear canals H60.93 Active confi rmed 2100641 Problem Other chronic pain G89.29 Active confirmed 8 0073688 Problem Other hammer toe(s) (acquired), right foot M20.41 Active confirmed 97666579 Problem Liver cyst K76.89 Active confirmed 65135046 ALLERGIES Allergen (clinical drug ingredient) Drug/Non Drug Allergy do cumented on EMR Reaction Allergy Type Onset Date Status Latex Latex Rash Drug Allergy Active Gluten Gluten Rash Drug Allergy Active Adhesive Tape rash Drug Allergy Active Codeine Phosphate (For Allergies Use Only) Nausea/Vomiting Drug Allergy Active ENCOUNTERS from 1967 to 2021-09-03 Encounter Location Date Provider Diagnosis [address] [phone] [place] [address] Aug, Provider Test IMMUNIZATIONS Vaccine Route Administration Date Status COVID-19 [...] Education Language: Question Answer Notes Languages spoken: Iraqi Jew: Question Answer Notes Jew 21 Mandaen No episcopalian beliefs that would impact health care. Drug [...] as needed for 30 Days Mar, Active [place] Saline Nasal - USE DIRECTED DAILY FOUR [...] dorsal hands for 14 days May, Active Srfsflzu-Noecqtwti-HV 3.5-28768-2 4 drops into affecte d ear Otic [...] Information RESULTS No Results REASON FOR VISIT would like a call from [employer] (GENERAL) HISTORY Type Description Date Medical History Depression/Anxiety- Dr Enriquez. /therapist Q2 weeks Medical History Hyperlipidemia Medical History GERD with Barretts: Repeat EGD in Medical History vitamin d def Medical History FRAN: following with Pulmonol ogy: compliant with CPAP-pulmonology Medical History CAD: Bypass with autologous vein: Dr. Shelley munguia at [facility] [address] Medical History ECHO 10/17/2016. Hypertensive heart disea [...] 03/31/16 Surgical History CABG- 4 vessel at [place] 11/11/16 Surgical History Left hand CP sx, and tendon removal. [facility] 01/2018 Surgical History Upper Endoscopic Ultrasound with [...] knee diagnostic arthroscopy-Dr. Merrill 03/07/2021 Hospitalization History [facility]- Depression/A nxiety 14 yo Hospitalization History [facility] [place]- depre ssion 18 yo Hospitalization History Father Verenice- [facility]- ezequiel d facilty- tx of depression. [age]yo Hospitalization History Hemorrhoidectomy with remova l of a mixed hemorrhoidal bundles at the left lateral and right anterior and posterior positions. 01/11/2016 Hospitalization History CABG: [facility] 11/11/[address] [facility] 11/21 Hospitalization History POST RIGHT HAND HAND AND ELBOW SURGE RY 10/2019 Hospitalization History [facility]- Post-op problem, left foot c ellulitis 08/03/2020 Hospitalization History Right Ulnar Nerve 01/2020 Hospitalization History [facility] ED-AMA 01/21/2021 Hospitalization History [facility] ED-Right shoulder injury 021 Hospitalization History [facility] ED-Right foot pain 02/05/2021 Hospitalization History [facility] ED-Right ankle pain 02/19/2021 Hospitalization History [facility] ED-Right foot pain 02/22/2021 Hospitalization History [facility] ileus, small bowel obstruction Hospitalization History [facility] - partial small bowel obstructio n [...] Provider Name:Debbie Thomson, 2021-09-04 01:15:00 PM, [address] [facility], , [place], [place], [facility] [phone] Provider Name:García Helm, 2021-10-16 02:45:00 PM, [address], , [place], [address], Provider Name:Daisy Hicks, 2021-10-25 02:00:00 PM, [address] [facility] [phone], [place], [address], Insurance Providers Payer Name Payer Address Payer Phone Insured Name Patient Relati onship to Insured Coverage Start Date Coverage End Date [facility] COMMUNITY PLAN [facility] [address] [facility] [phone] DEANNA AN self
--- OUTSIDE RECORDS SUMMARY | 2021-09-15 16:20 | CCD | Continuity of Care Document ---
Author Author Rinku IRIZARRY DPM Organization Unknown Address [address] [place] [address], [address] [place] [address] Phone [phone] Care Team Providers Care Director Of Contracts Name Role Phone Bladimir Ramirez M.D. AUTM [phone] YAMILE Noe AUTM [phone] MD Gauri Salcedo AUTM [phone] [place] Lolis RENEE AUTM [phone] [facility] Problems Active Problems Provider Date Callosity [...] times daily 45caps Dylan Irizarry, [place] 017 Simvastatin 40mg Tablets Take One Tablet By Mouth Every Evening Unknown 0 Oxycodone-Acetaminophen 5-325mg Ta blets Take One Tablet By Mouth Every 8 Hours as Needed For Pain Max Daily DO Unknown Ventolin HFA 108(90Base) mcg/Act A erosol Inhale Two Puffs By Mouth Every 4 Hours as Needed Unknown Elidel 1% Cream Apply Small Amount To Face Twice Daily Unknown Fluticasone Propionate 50mcg/Act Suspension Instill Two Sprays In Each Nostril Once Daily Unknown Pain Relief Extra Strength 500mg T ablets Take One Tablet By Mouth Every 6 Hours as Needed Unknown Amoxicillin/Clavulanate Potassium 875-125mg Tablets Take One Tablet By Mouth Twice Daily For 10 Days Unknown Ondansetron 4mg Tablets Dispers Take One Tablet By Mouth And allow To dissolve Every 8 Hours as Needed Unknown Mitigare 0.6mg Capsules Take One Capsule By Mouth Twice Daily Unknown Gabapentin 600mg Tablets Take One Tablet By Mouth Three Times Daily Unknown Sucralfate 1gm Tablets Take One Tablet By Mouth Four Times Daily On Empty Stomach Unknown Amlodipine Besylate 5mg Tablets Take One Tablet [...] One Tablet By Mouth Every Day Unknown Pantoprazole Sodium 40mg Tablets D R Take One Tablet By Mouth Twice Daily Unknown Lexapro Unknown Risperidone M-Tab Unknown 000 [...] By Mouth Twice Daily as Needed Unknown Clindamycin HCL 300mg Capsules Take One Capsule By Mouth Every 6 Hours as Directed Unkno wn Trihexyphenidyl HCL 2mg Tablets take One- Half [...] One Tablet By Mouth Twice Daily Unknown Medications Administered in Office Medication SIG Qnty Indications Ordering Provider Date Inject Triamcinolone Acetonide 10 ML, ND C Injection Dylan branes, [facility] 06/04/2021 Inject Dexamthosone Phosphate 30002-712- 30 Injection Dylan Irizarry, [facility] 021 Inject Triamcinolone Acetonide 10 ML, ND C Injection Dylan barnes, [facility] 02/26/2021 Inject Dexamthosone Phosphate 47500-607- 30 Injection Dylan Irizarry, [facility] 021 Inject Triamcinolone Acetonide 10 ML, ND C Injection Dylan barnes, [facility] 01/25/2018 Inject Dexamthosone Phosphate 04705-234- 30 Injection Dylan Irizarry, [facility] 018 Inject Triamcinolone Acetonide 10 ML, ND C Injection Dylan barnes, [facility] 03/13/2017 Inject Dexamthosone Phosphate 49997-542- 30 Injection Dylan Irizarry, [facility] 017 Inject Triamcinolone Acetonide 10 ML, ND C Injection Dylan barnes, [facility] 02/06/2017 Inject Dexamthosone Phosphate 23435-608- 30 Injection Dlyan Irizarry, [facility] 017 Inject Dexamthosone Phosphate 72529-893- 30 Injection Dylan Irizarry, [facility] 016 Inject Triamcinolone Acetonide 10 ML, ND C Injection Hansel barnes, [facility] 02/14/2015 Inject Dexamthosone Phosphate 36723-608- 30 Injection Hansel Irizarry, [facility] 015 Inject Triamcinolone Acetonide 10 ML, ND C Injection Hansel barnes, [facility] 07/03/2014 Inject Dexamthosone Phosphate 70716-265- 30 Injection Hansel Irizarry, [facility] 014 Inject Triamcinolone Acetonide 10 ML, ND C 0703-8505-09 Injection Hansel barnes, D[facility] 06/08/2014 Inject Dexamthosone Phosphate 12123-110- 30 Injection Hansel Irizarry, DPM 014 Immunizations [...] Information Available Procedures Date Code Description Status 08/05/2021 39714 Office/Outpatient Established SF MDM 10-19 Min Completed 07/02/2021 24401 Office/Outpatient Established SF MDM 10-19 Min Completed 06/04/2021 38641 Office/Outpatient Established SF MDM 10-19 Min Completed 06/04/2021 44047 Inject Tendon/Ligament/Cyst Comp leted 05/02/2021 74811 Office/Outpatient Established Lo w MDM 20-29 Min Completed 04/18/2021 08591 Office/Outpatient Established SF MDM 10-19 Min Completed 03/20/2021 23687 Office/Outpatient Established SF MDM 10-19 Min Completed 03/20/2021 36880 X-Ray Foot Complete Completed 03/12/2021 04512 Office/Outpatient Established SF MDM 10-19 Min Completed 02/26/2021 20081 Office/Outpatient Established SF MDM 10-19 Min Completed 02/26/2021 14469 Inject Tendon/Ligament/Cyst Comp leted Medical Devices Description No Information Available Encounters Type Date Location Provider Dx Diagnosis Office Visit 08/05/2021 10:00a [facility] Dylan Irizarry DPM S93.401D Sprain of unspecified ligament of right ankle, subs encntr Office Visit 07/02/2021 10:45a [facility] Dylan Irizarry DPM M67.00 Short Achilles tendon (acquired), unspecified ankle M65.879 Other synovitis and tenosyno vitis, unsp ankle and foot Office Visit 06/04/2021 11:00a [facility] Dylan Irizarry DPM M65.871 Other synovitis and tenosynovitis, right ankle and foot Office Visit 05/02/2021 10:30a [facility] Dylan Irizarry DPM S93.401D Sprain of unspecified ligament of right ankle, subs encntr M21.6x1 Other acquired deformities o f right foot Office Visit 04/18/2021 11:15a [facility] Dylan Irizarry DPM S93.401D Sprain of unspecified ligament of right ankle, subs encntr Office Visit 03/20/2021 1:00p [facility] Dylan Irizarry DPM S93.401D Sprain of unspecified ligament of right ankle, subs encntr M65.871 Other synovitis and tenosyno vitis, right ankle and foot Office Visit 03/12/2021 10:30a [facility] Dylan Irizarry DPM S93.401D Sprain of unspecified ligament of right ankle, subs encntr M65.871 Other synovitis and tenosyno vitis, right ankle and foot Office Visit 02/26/2021 10:30a [facility] Dylan Irizarry DPM S93.402D Sprain of unspecified ligament of left ankle, subs encntr M65.872 Other synovitis and tenosyno vitis, left ankle and foot Assessments Date Code Description Provider 08/05/2021 S93.401D Sprain of unspecifie d ligament of right ankle, subsequent encounter Dylan Irizarry DPM 07/02/2021 M67.00 Short Achilles tendon (acquired) , unspecified ankle Dylan Irizarry DPM 07/02/2021 M65.879 Other synovitis and tenosynovitis, unspecified ankle and foot Dylan Irizarry DPM 06/04/2021 M65.871 Other synovitis and tenosynoviti s, right ankle and foot Dylan Irizarry, YAMILE 05/02/2021 S93.401D Sprain of unspecifie d ligament of right ankle, subsequent encounter Dylan Irizarry DPM 05/02/2021 M21.6x1 Other acquired deformities of ri ght foot Dylan Irizarry, YAMILE 04/18/2021 S93.401D Sprain of unspecifie d ligament of right ankle, subsequent encounter Dylan Irizarry DPM 03/20/2021 S93.401D Sprain of unspecifie d ligament of right ankle, subsequent encounter Dylan Irizarry, YAMILE 03/20/2021 M65.871 Other synovitis and tenosynoviti s, right ankle and foot Dylan Irizarry DPM 03/12/2021 S93.401D Sprain of unspecifie d ligament of right ankle, subsequent encounter Dylan Irizarry DPM 03/12/2021 M65.871 Other synovitis and tenosynoviti s, right ankle and foot Dylan Irizarry, YAMILE 02/26/2021 S93.402D Sprain of unspecifie d ligament of left ankle, subsequent encounter Dylan Irizarry DPM 02/26/2021 M65.872 Other synovitis and tenosynoviti s, left ankle and foot Dylan Irizarry DPM Plan of Treatment Future Appointment(s):* 09/10/2021 10:45 am - Dylan Irizarry DPM at [facility] Functional Status Description No Information Available Mental Status Description No Information Available Referrals Refer to Reason for Referral Status Appt Date Dylan Irizarry DPM Created [address] [id number] [phone]
--- OUTSIDE RECORDS SUMMARY | 2021-09-15 16:20 | CCD ---
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 Active confirmed 02533 01 Problem Disc displacement, 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 Active confirmed 080827467565713 Problem Seborrheic keratoses L82.1 Active confirmed 353729768 Problem Sebaceous hyperplasia L73.8 Active confirmed 269554856 Problem Spondylosis without myelopathy or radiculopathy, lumbosacral region M47.817 Active confirmed 22796550 Problem Depression F32.9 Active confirmed 17776994 Problem Bilateral serous otitis media, unspecified chronicity H65.93 Active confirmed 12661861 Problem Allergic rhinitis J30.9 Active confirmed 61 230536 Problem Essential hypertension I10 Active confirmed 02613337 Problem Coronary artery disease invo lving [place] coronary artery of [place] heart, angina presence unspecified I25.10 Active confirmed 7443606401434 Problem Stage 3 chronic kidney disease N18.3 Active confir med 580941915 Problem Celiac disease K90.0 Active confirmed 78550 1005 Problem Obstructive sleep apnea on CPAP G47.33 Active confi rmed 52750100 Problem CKD (chronic kidney disease), stage III N18.3 Active confirmed 602876072 Problem Hyperlipidemia E78.5 Active confirmed 93776 004 Problem Hypothyroidism, unspecified type E03.9 Active conf irmed 25111705 Problem Dysfunction of both eustachian tubes H69.83 Act forrest confirmed 45846647 Problem Gastroesophageal reflux disease with esophagitis K 21.0 Active confirmed 126096243 Problem Carpal tunnel syndrome of right wrist G56.01 Ac tive confirmed 83980580 Problem Granuloma annulare L92.0 Active confirmed 6 8695984 Problem Wound of right buttock, initial encounter S31.819A Active confirmed 721089927 Problem Sacroiliitis M46.1 Active confirmed 7342478 9 Problem Unspecified open wound of right buttock, subsequ ent encounter S31.819D Active confirmed 61267689385870329 Problem Arthritis of lumbosacral spine M47.817 Active confi rmed 953746140 Problem 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 Active confirmed 740837392 Problem Allergic contact dermatitis, unspecified trigger L 23.9 Active confirmed 282032056 Problem Melanocytic nevi of trunk D22.5 Active confirmed 384135533 Problem Spondylosis of lumbar region without myelopathy or radiculopathy M47.816 Active confirmed 437822681 Problem Inflammation of both ear canals H60.93 Active confi rmed 4228601 Problem Other chronic pain G89.29 Active confirmed 8 1714577 Problem Other hammer toe(s) (acquired), right foot M20.41 Active confirmed 10431648 Problem Liver cyst K76.89 Active confirmed 79024631 ALLERGIES Allergen (clinical drug ingredient) Drug/Non Drug Allergy do cumented on EMR Reaction Allergy Type Onset Date Status Latex Latex Rash Drug Allergy Active Gluten Gluten Rash Drug Allergy Active Adhesive Tape rash Drug Allergy Active Codeine Phosphate (For Allergies Use Only) Nausea/Vomiting Drug Allergy Active ENCOUNTERS from 1967 to 2021-09-11 Encounter Location Date Provider Diagnosis [address] [phone] [place] [address] Sep, Lolis Choudhary IMMUNIZATIONS Vaccine Route Administration Date [...] Education Language: Question Answer Notes Languages spoken: Greek Jain: Question Answer Notes Jain 21 Worship No adventism beliefs that would impact health [...] tablet Orally Once a day Aug, Active Pmdvunnx-Dwdhyzawa-HM 3.5-98240-4 4 drops into affecte d ear Otic [...] TABLET BY MOUTH @8AM for 28 Active [place] Saline Nasal - USE DIRECTED DAILY FOUR [...] Information RESULTS No Results REASON FOR VISIT itchy ears MEDICAL (GENERAL) HISTORY Type Description Date Medical History Depression/Anxiety- Dr Enriquez. /therapist Q2 weeks Medical History Hyperlipidemia Medical History GERD with Barretts: Repeat EGD in Medical History vitamin d def Medical History FRAN: following with Pulmonol ogy: compliant with CPAP-pulmonology Medical History CAD: Bypass with autologous vein: Dr. Shelley munguia at [facility] Medical History ECHO 10/17/2016. Hypertensive heart [...] EGD- [facility] 02/02/15 Surgical History hemorrhoidectomy 4-6- Surgical History left foot bunionectomy with first metatarsal osteostomy-Dr. Chand 03/31/16 Surgical History CABG- 4 vessel at [place] 11/11/16 Surgical History Left hand CP sx, and tendon removal. [facility] 01/2018 Surgical History Upper Endoscopic Ultrasound with [...] knee diagnostic arthroscopy-Dr. Merrill 03/07/2021 Hospitalization History [facility]- Depression/A nxiety 14 yo Hospitalization History [facility] [place]- depre ssion 18 yo Hospitalization History Father Kel Shearer- ezequiel d facilty- tx of depression. [age]yo Hospitalization History Hemorrhoidectomy with remova l of a mixed hemorrhoidal bundles at the left lateral and right anterior and posterior positions. 01/11/2016 Hospitalization History CABG: [facility] 11/11/16 Hospitalization History Rehab [facility] 11/21 Hospitalization History POST RIGHT HAND HAND AND ELBOW SURGE RY 10/2019 Hospitalization History [facility]- Post-op problem, left foot c ellulitis 08/03/2020 Hospitalization History Right Ulnar Nerve 01/2020 Hospitalization History [facility] ED-AMA 01/21/2021 Hospitalization History [facility] ED-Right shoulder injury 021 Hospitalization History [facility] ED-Right foot pain 02/05/2021 Hospitalization History [facility] ED-Right ankle pain 02/19/2021 Hospitalization History [facility] ED-Right foot pain 02/22/2021 Hospitalization History [facility] ileus, small bowel obstruction Hospitalization History [facility] [...] for 30 day(s) Next Appt Details Provider Name:Chantal Lemus, 11:30:00 AM, [address] [facility], , [place], [address], Provider Name:García Helm, 2021-10-16 02:45:00 PM, [address] [facility] [facility], , [place], [address], Provider Name:Daisy Hicks, 2021-10-25 02:00:00 PM, [address] [facility], , [place], [address], Insurance Providers Payer Name Payer Address Payer Phone Insured Name Patient Relati onship to Insured Coverage Start Date Coverage End Date Subscriber Number Group Nu mber [facility] COMM[facility]AN [facility] [address] [facility] [address] DEANNA AN [facility] [id number]
--- OUTSIDE RECORDS SUMMARY | 2021-09-15 16:20 | CCD | Continuity of Care Document ---
Author Author Rinku IRIZARRY DPM Organization Unknown Address [address] [place] [address], [address] [place] [address] Phone [phone] Care Team Providers Care Mgmt Specialist Name Role Phone lBadimir Ramirez M.D. AUTM [phone] YAMILE Noe AUTM [phone] MD Gauri Salcedo AUTM [phone] [place] Lolis RENEE AUTM [phone] [facility] Problems Active Problems Provider Date Callosity [...] 10 ML, ND C Injection Dylan barnes, [facility] 06/04/2021 Inject Dexamthosone Phosphate 64437-705- 30 Injection Dylan Irizarry, [facility] 021 Inject Triamcinolone Acetonide 10 ML, ND C Injection Dylan barnes, [facility] 02/26/2021 Inject Dexamthosone Phosphate 89311-237- 30 Injection Dylan Irizarry, [facility] 021 Inject Triamcinolone Acetonide 10 ML, ND C Injection Dylan barnes, [facility] 01/25/2018 Inject Dexamthosone Phosphate 71817-645- 30 Injection Dylan Irizarry, [facility] 018 Inject Triamcinolone Acetonide 10 ML, ND C Injection Dylan barnes, [facility] 03/13/2017 Inject Dexamthosone Phosphate 74649-006- 30 Injection Dylan Irizarry, [facility] 017 Inject Triamcinolone Acetonide 10 ML, ND C Injection Dylan barnes, [facility] 02/06/2017 Inject Dexamthosone Phosphate 05857-950- 30 Injection Dylan Irizarry, [facility] 017 Inject Dexamthosone Phosphate 99546-848- 30 Injection Dylan Irizarry, [facility] 016 Inject Triamcinolone Acetonide 10 ML, ND C Injection Hansel barnes, [facility] 02/14/2015 Inject Dexamthosone Phosphate 59942-854- 30 Injection Hansel Irizarry, [facility] 015 Inject Triamcinolone Acetonide 10 ML, ND C Injection Hansel barnes, DPM 07/03/2014 Inject Dexamthosone Phosphate 89709-930- 30 Injection Hansel Irizarry, DPM 014 Inject Triamcinolone Acetonide 10 ML, ND C 5624-0917-77 Injection Hansel barnes, DPM 06/08/2014 Inject Dexamthosone Phosphate 84772-764- 30 Injection Hansel Irizarry, DPM 014 Immunizations [...] Available Procedures Date Code Description Status 08/05/2021 64836 Office/Outpatient Established SF MDM 10-19 Min Completed 07/02/2021 71966 Office/Outpatient Established SF MDM 10-19 Min Completed 06/04/2021 67828 Office/Outpatient Established SF MDM 10-19 Min Completed 06/04/2021 47376 Inject Tendon/Ligament/Cyst Comp leted 05/02/2021 39358 Office/Outpatient Established Lo w MDM 20-29 Min Completed 04/18/2021 18984 Office/Outpatient Established SF MDM 10-19 Min Completed 03/20/2021 41432 Office/Outpatient Established SF MDM 10-19 Min Completed 03/20/2021 67809 X-Ray Foot Complete Completed 03/12/2021 17370 Office/Outpatient Established SF MDM 10-19 Min Completed Medical Devices Description No Information Available Encounters Type Date Location Provider Dx Diagnosis Office Visit 08/05/2021 10:00a [facility] Dylan Irizarry DPM S93.401D Sprain of unspecified ligament of right ankle, subs encntr Office Visit 07/02/2021 10:45a [facility] Dylan Irizarry DPM M67.00 Short Achilles tendon (acquired), unspecified ankle M65.879 Other synovitis and tenosyno vitis, unsp ankle and foot Office Visit 06/04/2021 11:00a [facility] Dylan Irizarry, YAMILE M65.871 Other synovitis and tenosynovitis, right ankle and foot Office Visit 05/02/2021 10:30a [facility] Dylan Irizarry, YAMILE S93.401D Sprain of unspecified ligament of right ankle, subs encntr M21.6x1 Other acquired deformities o f right foot Office Visit 04/18/2021 11:15a [facility] Dylan Irizarry DPM S93.401D Sprain of unspecified ligament of right ankle, subs encntr Office Visit 03/20/2021 1:00p [facility] Dylan Irizarry DPM S93.401D Sprain of unspecified ligament of right ankle, subs encntr M65.871 Other synovitis and tenosyno vitis, right ankle and foot Office Visit 03/12/2021 10:30a [facility] Dlyan Irizarry DPM S93.401D Sprain of unspecified ligament of right ankle, subs encntr M65.871 Other synovitis and tenosyno vitis, right ankle and foot Assessments Date Code Description Provider 08/05/2021 S93.401D Sprain of unspecifie d ligament of right ankle, subsequent encounter Dylan Irizarry, YAMILE 07/02/2021 M67.00 Short Achilles tendon (acquired) , unspecified ankle Dylan Irizarry, YAMILE 07/02/2021 M65.879 Other synovitis and tenosynovitis, unspecified ankle and foot Dylan Irizarry, [place] 06/04/2021 M65.871 Other synovitis and tenosynoviti s, right ankle and foot Dylan Irizarry, [place] 05/02/2021 S93.401D Sprain of unspecifie d ligament of right ankle, subsequent encounter Dylan Irizarry DPM 05/02/2021 M21.6x1 Other acquired deformities of ri ght foot Dylan Irizarry DPM 04/18/2021 S93.401D Sprain of unspecifie d ligament of right ankle, subsequent encounter Dylan Irizarry DPM 03/20/2021 S93.401D Sprain of unspecifie d ligament of right ankle, subsequent encounter Dylan Irizarry DPM 03/20/2021 M65.871 Other synovitis and tenosynoviti s, right ankle and foot Dylan Irizarry DPM 03/12/2021 S93.401D Sprain of unspecifie d ligament of right ankle, subsequent encounter Dylan Irizarry DPM 03/12/2021 M65.871 Other synovitis and tenosynoviti s, right ankle and foot Dylan Irizarry DPM Plan of Treatment Future Appointment(s):* 10/14/2021 10:15 am - Dylan I[facility]arry DPM at [facility] Functional Status Description No Information Available Mental Status Description No Information Available Referrals Refer to Reason for Referral Status Appt Date Dylan Irizarry DPM Created [address] [address] [phone]
--- OUTSIDE RECORDS SUMMARY | 2021-09-15 16:20 | CCD ---
Author Author [facility] Organization [facility] Address Unknown Phone Unavailable Care Team Providers Care Shine Worker Name Role Phone Lolis Choudhary Unavailable PROBLEMS Type Condition ICD9-CM Code [id number] Code Onset Dates Condition S tatus W/U Status Risk SNOMED Code Notes Problem Anxiety disorder, unspecified F41.9 Active confirm ed 320528069 Problem Intervertebral disc disorder with radiculopathy of lumbar region M51.16 Active confirmed 10151633 Problem Obesity, unspecified E66.9 Active confirmed 56834947397256 Problem M[place]iua angioma D18.01 Active confirmed 52738 01 Problem Disc displacement, 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 Active confirmed 312539930318005 Problem Seborrheic keratoses L82.1 Active confirmed 385344732 Problem Sebaceous hyperplasia L73.8 Active confirmed 602842507 Problem Spondylosis without myelopathy or radiculopathy, lumbosacral region M47.817 Active confirmed 08846855 Problem Depression F32.9 Active confirmed 52545075 Problem Bilateral serous otitis media, unspecified chronicity H65.93 Active confirmed 21937443 Problem Allergic rhinitis J30.9 Active confirmed 61 781064 Problem Essential hypertension I10 Active confirmed 28419624 Problem Coronary artery disease invo lving [place] coronary artery of [place] heart, angina presence unspecified I25.10 Active confirmed 6640969451294 Problem Stage 3 chronic kidney disease N18.3 Active confir med 166478914 Problem Celiac disease K90.0 Active confirmed 46505 1005 Problem Obstructive sleep apnea on CPAP G47.33 Active confi rmed 96493627 Problem CKD (chronic kidney disease), stage III N18.3 Active confirmed 479052130 Problem Hyperlipidemia E78.5 Active confirmed 21890 004 Problem Hypothyroidism, unspecified type E03.9 Active conf irmed 99132720 Problem Dysfunction of both eustachian tubes H69.83 Act forrest confirmed 69050066 Problem Gastroesophageal reflux disease with esophagitis K 21.0 Active confirmed 436714077 Problem Carpal tunnel syndrome of right wrist G56.01 Ac tive confirmed 81342193 Problem Granuloma annulare L92.0 Active confirmed 6 2336189 Problem Wound of right buttock, initial encounter S31.819A Active confirmed 548971948 Problem Sacroiliitis M46.1 Active confirmed 9441494 9 Problem Unspecified open wound of right buttock, subsequ ent encounter S31.819D Active confirmed 42775514079686847 Problem Arthritis of lumbosacral spine M47.817 Active confi rmed 645766459 Problem 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 Active confirmed 932012741 Problem Allergic contact dermatitis, unspecified trigger L 23.9 Active confirmed 291103111 Problem Melanocytic nevi of trunk D22.5 Active confirmed 842817381 Problem Spondylosis of lumbar region without myelopathy or radiculopathy M47.816 Active confirmed 728596991 Problem Inflammation of both ear canals H60.93 Active confi rmed 8790703 Problem Other chronic pain G89.29 Active confirmed 8 5520021 Problem Other hammer toe(s) (acquired), right foot M20.41 Active confirmed 80940627 Problem Liver cyst K76.89 Active confirmed 82671903 ALLERGIES Allergen (clinical drug ingredient) Drug/Non Drug Allergy do cumented on EMR Reaction Allergy Type Onset Date Status Latex Latex Rash Drug Allergy Active Gluten Gluten Rash Drug Allergy Active Adhesive Tape rash Drug Allergy Active Codeine Phosphate (For Allergies Use Only) Nausea/Vomiting Drug Allergy Active ENCOUNTERS from 1967 to 2021-09-03 Encounter Location Date Provider Diagnosis [address] [phone] [place] [address] Aug, Lolis Choudhary IMMUNIZATIONS Vaccine Route Administration Date [...] Education Language: Question Answer Notes Languages spoken: Maltese Sabianism: Question Answer Notes Sabianism 21 Latter-Day No spiritism beliefs that would impact health [...] as needed for 30 Days Mar, Active [place] Saline Nasal - USE DIRECTED DAILY FOUR [...] dorsal hands for 14 days May, Active Ppfuatgv-Eiekndvou-NQ 3.5-52292-2 4 drops into affecte d ear Otic [...] Information RESULTS No Results REASON FOR VISIT order tracer piece for inhaler? MEDICAL (GENERAL) HISTORY Type Description Date Medical History Depression/Anxiety- Dr Enriquez. /therapist Q2 weeks Medical History Hyperlipidemia Medical History GERD with Barretts: Repeat EGD in Medical History vitamin d def Medical History FRAN: following with Pulmonol ogy: compliant with CPAP-pulmonology Medical History CAD: Bypass with autologous vein: Dr. Shelley munguia at [facility] Medical History ECHO 10/17/2016. Hypertensive heart [...] 03/31/16 Surgical History CABG- 4 vessel at [place] 11/11/16 Surgical History Left hand CP sx, and tendon removal. [facility] 01/2018 Surgical History Upper Endoscopic Ultrasound with Anesthe penleope 07/2018 Surgical History Wires removed from chest [...] knee diagnostic arthroscopy-Dr. Merrill 03/07/2021 Hospitalization History [facility]- Depression/A nxiety 14 yo Hospitalization History [facility] [place]- depre ssion 18 yo Hospitalization History Father Verenice- Janki- ezequiel d facilty- tx of depression. [age]yo Hospitalization History Hemorrhoidectomy with remova l of a mixed hemorrhoidal bundles at the left lateral and right anterior and posterior positions. 01/11/2016 Hospitalization History CABG: [facility] 11/11/16 Hospitalization History [facility] [...] Name:Debbie Thomson, 2021-09-04 01:15:00 PM, [address] [facility], , [place], [place], [facility] [phone] Provider Name:García Helm, 2021-10-16 02:45:00 PM, [address], , [place], [address], Provider Name:Daisy Hicks, 2021-10-25 02:00:00 PM, [address] [facility] [phone], [place], [address], Insurance Providers Payer Name Payer Address Payer Phone Insured Name Patient Relati onship to Insured Coverage Start Date Coverage End Date [facility] [address] [facility] [address] [phone] DEANNA AN self
--- OUTSIDE RECORDS SUMMARY | 2021-09-15 16:20 | CCD ---
Author Author [employer] [facility] Organization [employer] [facility] Address Unknown Phone Unavailable Care Team Providers Care Supervisor Records Change Name Role Phone García Helm Unavailable PROBLEMS ALLERGIES ENCOUNTERS from 1967 to 2021-08-17 IMMUNIZATIONS SOCIAL HISTORY REASON FOR REFERRAL No Information VITAL SIGNS MEDICATIONS PROCEDURES No Information RESULTS No Results REASON FOR VISIT No Information MEDICAL (GENERAL) HISTORY Goals Section Health Concerns MEDICAL EQUIPMENT No Information MENTAL STATUS FUNCTIONAL STATUS ASSESSMENTS No Information PLAN OF TREATMENT Insurance Providers
--- OUTSIDE RECORDS SUMMARY | 2021-09-15 16:21 | CCD ---
Author Author [facility] Organization [facility] Address Unknown Phone Unavailable Care Team Providers Care Photo Mask Pattern Generator Name Role Phone Lolis Choudhary Unavailable PROBLEMS Type Condition ICD9-CM Code [id number] Code Onset Dates Condition S tatus W/U Status Risk SNOMED Code Notes Problem Anxiety disorder, unspecified F41.9 Active confirm ed 119159229 Problem Intervertebral disc disorder with radiculopathy of lumbar region M51.16 Active confirmed 34053570 Problem Obesity, unspecified E66.9 Active confirmed 50788938019900 Problem 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 Active confirmed 87356 01 Problem Disc displacement, 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 Active confirmed 043683674756886 Problem Seborrheic keratoses L82.1 Active confirmed 300042757 Problem Sebaceous hyperplasia L73.8 Active confirmed 473150728 Problem Spondylosis without myelopathy or radiculopathy, lumbosacral region M47.817 Active confirmed 40367861 Problem Depression F32.9 Active confirmed 49787141 Problem Bilateral serous otitis media, unspecified chronicity H65.93 Active confirmed 56984977 Problem Allergic rhinitis J30.9 Active confirmed 61 720303 Problem Essential hypertension I10 Active confirmed 37652545 Problem Coronary artery disease invo lving [place] coronary artery of [place] heart, angina presence unspecified I25.10 Active confirmed 4909358561667 Problem Stage 3 chronic kidney disease N18.3 Active confir med 633830731 Problem Celiac disease K90.0 Active confirmed 11825 1005 Problem Obstructive sleep apnea on CPAP G47.33 Active confi rmed 75476489 Problem CKD (chronic kidney disease), stage III N18.3 Active confirmed 393602297 Problem Hyperlipidemia E78.5 Active confirmed 79134 004 Problem Hypothyroidism, unspecified type E03.9 Active conf irmed 91929513 Problem Dysfunction of both eustachian tubes H69.83 Act forrest confirmed 15058424 Problem Gastroesophageal reflux disease with esophagitis K 21.0 Active confirmed 586465190 Problem Carpal tunnel syndrome of right wrist G56.01 Ac tive confirmed 02855374 Problem Granuloma annulare L92.0 Active confirmed 6 2168072 Problem Wound of right buttock, initial encounter S31.819A Active confirmed 797229793 Problem Sacroiliitis M46.1 Active confirmed 1473063 9 Problem Unspecified open wound of right buttock, subsequ ent encounter S31.819D Active confirmed 01076767424984470 Problem Arthritis of lumbosacral spine M47.817 Active confi rmed 392124286 Problem 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 Active confirmed 737246430 Problem Allergic contact dermatitis, unspecified trigger L 23.9 Active confirmed 598417534 Problem Melanocytic nevi of trunk D22.5 Active confirmed 569557136 Problem Spondylosis of lumbar region without myelopathy or radiculopathy M47.816 Active confirmed 818700189 Problem Inflammation of both ear canals H60.93 Active confi rmed 3529702 Problem Other chronic pain G89.29 Active confirmed 8 6281847 Problem Other hammer toe(s) (acquired), right foot M20.41 Active confirmed 19794310 Problem Liver cyst K76.89 Active confirmed 77354258 ALLERGIES Allergen (clinical drug ingredient) Drug/Non Drug Allergy do cumented on EMR Reaction Allergy Type Onset Date Status Latex Latex Rash Drug Allergy Active Gluten Gluten Rash Drug Allergy Active Adhesive Tape rash Drug Allergy Active Codeine Phosphate (For Allergies Use Only) Nausea/Vomiting Drug Allergy Active ENCOUNTERS from 1967 to 2021-08-14 Encounter Location Date Provider Diagnosis [address] [phone] [place] [address] Jul, Lolis Choudhary IMMUNIZATIONS Vaccine Route Administration [...] Education Language: Question Answer Notes Languages spoken: Kyrgyz Confucianist: Question Answer Notes Confucianist 21 Episcopalian No islam beliefs that would impact health care. Drug [...] as needed for 30 Days Mar, Active [place] Saline Nasal - USE DIRECTED DAILY FOUR [...] at bedtime for 30 day(s) Jul, Active Omeprazole 40 MG TAKE ONE CAPSULE BY MOUTH @8AM ON AN EMPTY STOMACH O ral Active Levothyroxine Sodium 25 MCG TAKE ONE TABLET BY MOUTH @8AM for 28 Active Atorvastatin Calcium 40 MG TAKE ONE TABLET BY MOUTH @8AM for 28 Active Ondansetron HCl 8 MG 1 tablet as needed Orally th ree times daily only as needed for nausea or vomiting for 10 day(s) May, Active Trihexyphenidyl HCl 2 MG TAKE ONE TABLET BY MOUTH TWICE DAILY Orally bid Active Escitalopram Oxalate 10 MG 1 tablet Oral Once a day along with a 20 mg tablet Active Ybnnhedi-Pgdluesvg-MS 3.5-66820-4 4 drops into affecte d ear Otic Three times a day for 7 day(s) Mar, Active Metoprolol Tartrate 25 mg 1/2 tab [...] dorsal hands for 14 days May, Active tiZANidine HCl 4 MG 1 tablet as needed Orally Th ree times a day NEEDED FOR SEVERE PAIN for 30 Days Active Multivitamin Adult - as directed Orally [...] Information RESULTS No Results REASON FOR VISIT Letter MEDICAL (GENERAL) HISTORY Type Description Date Medical History Depression/Anxiety- Dr Enriquez. /therapist Q2 weeks Medical History Hyperlipidemia Medical History GERD with Barretts: Repeat EGD in 8 Medical History vitamin d def Medical History FRAN: following with Pulmonol ogy: compliant with CPAP-pulmonology Medical History CAD: Bypass with autologous vein: Dr. Shelley munguia at [facility] Medical History ECHO 10/17/2016. Hypertensive heart [...] 03/31/16 Surgical History CABG- 4 vessel at [place] 11/11/16 Surgical History Left hand CP sx, and tendon removal. [facility] 01/2018 Surgical History Upper Endoscopic Ultrasound with Anesthe penelope 07/2018 Surgical History Wires removed from chest 09/29/2018 Surgical History Hammer toe, Left foot, Dr. Chand 03/30/19 Surgical History EGD-Dr. Druon 01/2019 Surgical History HammerToe 03/2019 Surgical History [...] knee diagnostic arthroscopy-Dr. Merrill 03/07/2021 Hospitalization History [facility]- Depression/A nxiety 14 yo Hospitalization History [facility] [place]- depre ssion 18 yo Hospitalization History Father Verenice- Janki- ezequiel d facilty- tx of depression. 16-18yo Hospitalization History Hemorrhoidectomy with remova l of a mixed hemorrhoidal bundles at the left lateral and right anterior and posterior positions. 01/11/2016 Hospitalization History CABG: [facility] 11/11/16 Hospitalization History Rehab [facility] 11/21 Hospitalization History POST RIGHT HAND HAND AND ELBOW SURGE RY 10/2019 Hospitalization History [facility] ED- Post-op problem, left foot c ellulitis 08/03/2020 Hospitalization History Right Ulnar Nerve 01/2020 Hospitalization History [facility] ED-AMA 01/21/2021 Hospitalization History [facility] ED-Right shoulder injury 021 Hospitalization History [facility] ED-Right foot pain 02/05/2021 Hospitalization History [facility] ED-Right ankle pain 02/19/2021 Hospitalization History [facility] ED-Right foot pain 02/22/2021 Hospitalization History [facility] ileus, small bowel obstruction Hospitalization History [facility] - partial small bowel obstructio [...] ONE TABLET BY MOUTH @5PM for 28 hydrOXYzine HCl 25 MG 1 tablet 30 at bedtime for 30 day(s) 18 Oc t, 2020 Atorvastatin Calcium 40 MG TAKE ONE TABLET BY MOUTH @8AM for 28 Next Appt Details Provider Name:Debbie Thomson, 2021-09-04 01:15:00 PM, [address] [place] [address], , [place], [place], [facility], Insurance Providers Payer Name Payer Address Payer Phone Insured Name Patient Relati onship to Insured Coverage Start Date Coverage End Date [facility] COMMUNITY PLAN [facility] [address] [facility] [address] DEANNA AN self
--- OUTSIDE RECORDS SUMMARY | 2021-09-15 16:21 | CCD ---
Author Author [employer] [facility] Organization [employer] [facility] Address Unknown Phone Unavailable Care Team Providers Care Installation Technician Name Role Phone Gauri Salcedo Unavailable PROBLEMS ALLERGIES ENCOUNTERS from 1967 to 2021-08-16 IMMUNIZATIONS SOCIAL HISTORY REASON FOR REFERRAL No Information VITAL SIGNS MEDICATIONS PROCEDURES No Information RESULTS No Results REASON FOR VISIT MEDICAL (GENERAL) HISTORY Goals Section Health Concerns MEDICAL EQUIPMENT No Information MENTAL STATUS FUNCTIONAL STATUS ASSESSMENTS No Information PLAN OF TREATMENT Insurance Providers
--- OUTSIDE RECORDS SUMMARY | 2021-09-15 16:23 | CCD ---
Author Author [facility] Organization [facility] Address Unknown Phone Unavailable Care Team Providers Care Pecan Mallow Dipper Name Role Phone Lashonda Pond PA-C Unavailable Unavailabl Lashonda Gotti PA-C Unavailable Unavailabl Lashonda Gotti PA-C Unavailable Unavailabl e Fish, Lashonda Aidee MPAS, PA-C Unavailable Unavailabl e Fish, [facility], PA-C Unavailable Unavailabl e Fish, [facility], PA-C Unavailable Unavailabl e Fish, [facility], PA-C Unavailable Unavailabl e Fish, [facility], PA-C Unavailable Unavailabl e Fish, [facility], PA-C Unavailable Unavailabl e Fish, [facility], PA-C Unavailable Unavailabl e Fish, [facility], PA-C Unavailable Unavailabl e Fish, [facility], PA-C Unavailable Unavailabl e Fish, [facility], PA-C Unavailable Unavailabl e Fish, [facility], PA-C Unavailable Unavailabl e Fish, [facility], PA-C Unavailable Unavailabl e Fish, [facility], PA-C Unavailable Unavailabl e Fish, [facility], PA-C Unavailable Unavailabl e Fish, [facility], PA-C Unavailable Unavailabl e Fish, [facility], PA-C Unavailable Unavailabl e Fish, [facility], PA-C Unavailable Unavailabl e Fish, [facility], PA-C Unavailable Unavailabl e Fish, [facility], PA-C Unavailable Unavailabl e Fish, [facility], PA-C Unavailable Unavailabl e Fish, [facility], PA-C Unavailable Unavailabl e Fish, [facility], PA-C Unavailable Unavailabl e Fish, [facility], PA-C Unavailable Unavailabl e Fish, [facility], PA-C Unavailable Unavailabl e Fish, [facility], PA-C Unavailable Unavailabl e Fish, [facility], PA-C Unavailable Unavailabl e Fish, [facility], PA-C Unavailable Unavailabl e Fish, [facility], PA-C Unavailable Unavailabl e Fish, [facility], PA-C Unavailable Unavailabl e Fish, [facility], PA-C Unavailable Unavailabl e Fish, [facility], PA-C Unavailable Unavailabl e Fish, [facility], PA-C Unavailable Unavailabl e Fish, Lashonda Aidee MPAS, PA-C Unavailable Unavailabl e OROURKE, H NICOLE PATTERN SHOP SUPERVISOR Unavailable Unavailable OROURKE, H NICOLE PATTERN SHOP SUPERVISOR Unavailable Unavailable OROURKE, H NICOLE PATTERN SHOP SUPERVISOR Unavailable Unavailable OROURKE, H NICOLE PATTERN SHOP SUPERVISOR Unavailable Unavailable OROURKE, H NICOLE PATTERN SHOP SUPERVISOR Unavailable Unavailable OROURKE, H NICOLE PATTERN SHOP SUPERVISOR Unavailable Unavailable OROURKE, H NICOLE PATTERN SHOP SUPERVISOR Unavailable Unavailable OROURKE, H NICOLE PATTERN SHOP SUPERVISOR Unavailable Unavailable OROURKE, H NICOLE PATTERN SHOP SUPERVISOR Unavailable Unavailable OROURKE, H NICOLE PATTERN SHOP SUPERVISOR Unavailable Unavailable OROURKE, H NICOLE PATTERN SHOP SUPERVISOR Unavailable Unavailable OROURKE, H NICOLE PATTERN SHOP SUPERVISOR Unavailable Unavailable OROURKE, H NICOLE PATTERN SHOP SUPERVISOR Unavailable Unavailable OROURKE, H NICOLE PATTERN SHOP SUPERVISOR Unavailable Unavailable OROURKE, H NICOLE PATTERN SHOP SUPERVISOR Unavailable Unavailable OROURKE, H NICOLE PATTERN SHOP SUPERVISOR Unavailable Unavailable OROURKE, H NICOLE PATTERN SHOP SUPERVISOR Unavailable Unavailable OROURKE, H NICOLE PATTERN SHOP SUPERVISOR Unavailable Unavailable OROURKE, H NICOLE PATTERN SHOP SUPERVISOR Unavailable Unavailable OROURKE, H NICOLE PATTERN SHOP SUPERVISOR Unavailable Unavailable OROURKE, H NICOLE PATTERN SHOP SUPERVISOR Unavailable Unavailable OROURKE, H NICOLE PATTERN SHOP SUPERVISOR Unavailable Unavailable OROURKE, H NICOLE PATTERN SHOP SUPERVISOR Unavailable Unavailable OROURKE, H NICOLE PATTERN SHOP SUPERVISOR Unavailable Unavailable OROURKE, H NICOLE PATTERN SHOP SUPERVISOR Unavailable Unavailable OROURKE, H NICOLE PATTERN SHOP SUPERVISOR Unavailable Unavailable OROURKE, H NICOLE PATTERN SHOP SUPERVISOR Unavailable Unavailable OROURKE, H NICOLE PATTERN SHOP SUPERVISOR Unavailable Unavailable OROURKE, H NICOLE PATTERN SHOP SUPERVISOR Unavailable Unavailable OROURKE, H NICOLE PATTERN SHOP SUPERVISOR Unavailable Unavailable OROURKE, H NICOLE PATTERN SHOP SUPERVISOR Unavailable Unavailable OROURKE, H NICOLE PATTERN SHOP SUPERVISOR Unavailable Unavailable OROURKE, H NICOLE PATTERN SHOP SUPERVISOR Unavailable Unavailable OROURKE, H NICOLE PATTERN SHOP SUPERVISOR Unavailable Unavailable OROURKE, H NICOLE PATTERN SHOP SUPERVISOR Unavailable Unavailable OROURKE, H NICOLE PATTERN SHOP SUPERVISOR Unavailable Unavailable OROURKE, H NICOLE PATTERN SHOP SUPERVISOR Unavailable Unavailable OROURKE, H NICOLE PATTERN SHOP SUPERVISOR Unavailable Unavailable OROURKE, H NICOLE PATTERN SHOP SUPERVISOR Unavailable Unavailable OROURKE, H NICOLE PATTERN SHOP SUPERVISOR Unavailable Unavailable OROURKE, H NICOLE PATTERN SHOP SUPERVISOR Unavailable Unavailable OROURKE, H NICOLE PATTERN SHOP SUPERVISOR Unavailable Unavailable OROURKE, H NICOLE PATTERN SHOP SUPERVISOR Unavailable Unavailable OROURKE, H NICOLE PATTERN SHOP SUPERVISOR Unavailable Unavailable OROURKE, H NICOLE PATTERN SHOP SUPERVISOR Unavailable Unavailable OROURKE, H NICOLE PATTERN SHOP SUPERVISOR Unavailable Unavailable OROURKE, H NICOLE PATTERN SHOP SUPERVISOR Unavailable Unavailable OROURKE, H NICOLE PATTERN SHOP SUPERVISOR Unavailable Unavailable OROURKE, H NICOLE PATTERN SHOP SUPERVISOR Unavailable Unavailable OROURKE, H NICOLE PATTERN SHOP SUPERVISOR Unavailable Unavailable OROURKE, H NICOLE PATTERN SHOP SUPERVISOR Unavailable Unavailable OROURKE, H NICOLE PATTERN SHOP SUPERVISOR Unavailable Unavailable OROURKE, H NICOLE PATTERN SHOP SUPERVISOR Unavailable Unavailable OROURKE, H NICOLE PATTERN SHOP SUPERVISOR Unavailable Unavailable OROURKE, H NICOLE PATTERN SHOP SUPERVISOR Unavailable Unavailable OROURKE, H NICOLE PATTERN SHOP SUPERVISOR Unavailable Unavailable Marely IRIZARRY DPM Unavailable Unavailable [...] Unavailable Unavailable REMINGTON, TANESHA PA Unavailable Unavailable Juan Manuel Salcedo MD Unavailable Unavailable Juan Manuel Salcedo MD Unavailable Unavailable Juan Manuel Salcedo MD Unavailable Unavailable Juan Manuel Salcedo MD Unavailable Unavailable Juan Manuel Salcedo MD Unavailable Unavailable Juan Manuel Salcedo MD Unavailable Unavailable Juan Manuel Salcedo MD Unavailable Unavailable Juan Manuel Salcedo MD Unavailable Unavailable Juan Manuel Salcedo MD Unavailable Unavailable Juan Manuel Salcedo MD Unavailable Unavailable Juan Manuel Salcedo MD Unavailable Unavailable Juan Manuel Salcedo MD Unavailable Unavailable Juan Manuel Salcedo MD Unavailable Unavailable Skipton, E Gauri MD Unavailable Unavailable Skipton, E Gauri MD Unavailable Unavailable Skipton, E Gauri MD Unavailable Unavailable Skipton, E Gauri MD Unavailable Unavailable Skipton, E Gauri MD Unavailable Unavailable Skipton, E Gauri MD Unavailable Unavailable Skipton, E Gauri MD Unavailable Unavailable Skipton, E Gauri MD Unavailable Unavailable Skipton, E Gauri MD Unavailable Unavailable Skipton, E Gauri MD Unavailable Unavailable Skipton, E Gauri MD Unavailable Unavailable Skipton, E Gauri MD Unavailable Unavailable Skipton, E Gauri MD Unavailable Unavailable Skipton, E Gauri MD Unavailable Unavailable Skipton, E Gauri MD Unavailable Unavailable Skipton, E Gauri MD Unavailable Unavailable Skipton, E Gauri MD Unavailable Unavailable Skipton, E Gauri MD Unavailable Unavailable Skipton, E Gauri MD Unavailable Unavailable Skipton, E Gauri MD Unavailable Unavailable Skipton, E Gauri MD Unavailable Unavailable Skipton, E Aguri MD Unavailable Unavailable Skipton, E Gauri MD Unavailable Unavailable Skipton, E Gauri MD Unavailable Unavailable Skipton, E Gauri MD Unavailable Unavailable Skipton, E Gauri MD Unavailable Unavailable Skipton, E Gauri MD Unavailable Unavailable Skipton, E Gauri MD Unavailable Unavailable Skipton, E Gauri MD Unavailable Unavailable Skipton, E Gauri MD Unavailable Unavailable Skipton, E Gauri MD Unavailable Unavailable Skipton, E Gauri MD Unavailable Unavailable Skipton, E Gauri MD Unavailable Unavailable Skipton, E Gauri MD Unavailable Unavailable Skipton, E Gauri MD Unavailable Unavailable Skipton, E Gauri MD Unavailable Unavailable Skipton, E Gauri MD Unavailable Unavailable Skipton, E Gauri MD Unavailable Unavailable Skipton, E Gauri MD Unavailable Unavailable Skipton, E Gauri MD Unavailable Unavailable Skipton, E Gauri MD Unavailable Unavailable Skipton, E Gauir MD Unavailable Unavailable Skipton, E Gauri MD Unavailable Unavailable Skipton, E Gauri MD Unavailable Unavailable Skipton, E Gauri MD Unavailable Unavailable Skipton, E Gauri MD Unavailable Unavailable Skipton, E Gauri MD Unavailable Unavailable Skipton, E Gauri MD Unavailable Unavailable Natividad BEGUM MD Unavailable [...] Unavailable Unavailable Natividad BEGUM MD Unavailable Unavailable Jessica CASON MD Unavailable Unavailable Jessica CASON MD Unavailable Unavailable Jessica CASON MD Unavailable Unavailable Jessica CASON MD Unavailable Unavailable Jessica CASON MD Unavailable Unavailable Jessica CASON MD Unavailable Unavailable Jessica CASON MD Unavailable Unavailable Jessica CASON MD Unavailable Unavailable Jessica CASON MD Unavailable Unavailable Jessica CASON MD Unavailable Unavailable Jessica CASON MD Unavailable Unavailable Jessica CASON MD Unavailable Unavailable Jessica CASON MD Unavailable Unavailable Jessica CASON MD Unavailable Unavailable Jessica CASON MD Unavailable Unavailable Jessica CASON MD Unavailable Unavailable Jessica CASON MD Unavailable Unavailable Jessica CASON MD Unavailable Unavailable Jessica CASON MD Unavailable Unavailable Jessica CASON MD Unavailable Unavailable García MARCOS PA Unavailable Unavailable DEMARTINI, M JOIE PA Unavailable Unavailable DEMARTINI, M JOIE PA Unavailable Unavailable DEMARTINI, M JOIE PA Unavailable Unavailable DEMARTINI, M JOIE PA Unavailable Unavailable DEMARTINI, M JOIE PA Unavailable Unavailable DEMARTINI, M JOIE PA Unavailable Unavailable DEMARTINI, M JOIE PA Unavailable Unavailable DEMARTINI, M JOIE PA Unavailable Unavailable DEMARTINI, M JOIE PA Unavailable Unavailable DEMARTINI, M JOIE PA Unavailable Unavailable DEMARTINI, M JOIE PA Unavailable Unavailable DEMARTINI, M JOIE PA Unavailable Unavailable DEMARTINI, M JOIE PA Unavailable Unavailable DEMARTINI, M JOIE PA Unavailable Unavailable DEMARTINI, M JOIE PA Unavailable Unavailable DEMARTINI, M JOIE PA Unavailable Unavailable DEMARTINI, M JOIE PA Unavailable Unavailable DEMARTINI, M JOIE PA Unavailable Unavailable DEMARTINI, M JOIE PA Unavailable Unavailable DEMARTINI, M JOIE PA Unavailable Unavailable DEMARTINI, M JOIE PA Unavailable Unavailable DEMARTINI, M JOIE PA Unavailable Unavailable DEMARTINI, M JOIE PA Unavailable Unavailable DEMARTINI, M JOIE PA Unavailable Unavailable DEMARTINI, M JOIE PA Unavailable Unavailable DEMARTINI, M JOIE PA Unavailable Unavailable DEMARTINI, M JOIE PA Unavailable Unavailable DEMARTINI, M JOIE PA Unavailable Unavailable DEMARTINI, M JOIE PA Unavailable Unavailable DEMARTINI, M JOIE PA Unavailable Unavailable DEMARTINI, M JOIE PA Unavailable Unavailable DEMARTINI, M JOIE PA Unavailable Unavailable DEMARTINI, M JOIE PA Unavailable Unavailable DEMARTINI, M JOIE PA Unavailable Unavailable DEMARTINI, M JOIE PA Unavailable Unavailable DEMARTINI, M JOIE PA Unavailable Unavailable DEMARTINI, M JOIE PA Unavailable Unavailable DEMARTINI, M JOIE PA Unavailable Unavailable DEMARTINI, M JOIE PA Unavailable Unavailable DEMARTINI, M JOIE PA Unavailable Unavailable DEMARTINI, M JOIE PA Unavailable Unavailable DEMARTINI, M JOIE PA Unavailable Unavailable DEMARTINI, M JOIE PA Unavailable Unavailable DEMARTINI, M JOIE PA Unavailable Unavailable Juanita Falanga, A Jerrica ORTHOTIC FINISH GRINDING TECHNICIAN Unavailable Unavailable Oakley Falanga, A Jerrica ORTHOTIC FINISH GRINDING TECHNICIAN Unavailable Unavailable Oakley Falanga, A Jerrica ORTHOTIC FINISH GRINDING TECHNICIAN Unavailable Unavailable Juanita Falanga, A Jerrica ORTHOTIC FINISH GRINDING TECHNICIAN Unavailable Unavailable Juanita Falanga, A Jerrica ORTHOTIC FINISH GRINDING TECHNICIAN Unavailable Unavailable Juanita Falanga, A Jerrica ORTHOTIC FINISH GRINDING TECHNICIAN Unavailable Unavailable Oakley Falanga, A Jerrica ORTHOTIC FINISH GRINDING TECHNICIAN Unavailable Unavailable Juanita Falanga, A Jerrica ORTHOTIC FINISH GRINDING TECHNICIAN Unavailable Unavailable Oakley Falanga, A Jerrica ORTHOTIC FINISH GRINDING TECHNICIAN Unavailable Unavailable Juanita Falanga, A Jerrica ORTHOTIC FINISH GRINDING TECHNICIAN Unavailable Unavailable Oakley Falanga, A Jerrica ORTHOTIC FINISH GRINDING TECHNICIAN Unavailable Unavailable Juanita Falanga, A Jerrica ORTHOTIC FINISH GRINDING TECHNICIAN Unavailable Unavailable Oakley Falanga, A Jerrica ORTHOTIC FINISH GRINDING TECHNICIAN Unavailable Unavailable Juanita Falanga, A Jerrica ORTHOTIC FINISH GRINDING TECHNICIAN Unavailable Unavailable Juanita Falanga, A Jerrica ORTHOTIC FINISH GRINDING TECHNICIAN Unavailable Unavailable Oakley Falanga, A Jerrica ORTHOTIC FINISH GRINDING TECHNICIAN Unavailable Unavailable Juanita Falanga, A Jerrica ORTHOTIC FINISH GRINDING TECHNICIAN Unavailable Unavailable Juanita Falanga, A Jerrica ORTHOTIC FINISH GRINDING TECHNICIAN Unavailable Unavailable Juanita Falanga, A Jerrica ORTHOTIC FINISH GRINDING TECHNICIAN Unavailable Unavailable Oakley Falanga, A Jerrica ORTHOTIC FINISH GRINDING TECHNICIAN Unavailable Unavailable Juanita Falanga, A Jerrica ORTHOTIC FINISH GRINDING TECHNICIAN Unavailable Unavailable Juanita Falanga, A Jerrica ORTHOTIC FINISH GRINDING TECHNICIAN Unavailable Unavailable Juanita Falanga, A Jerrica ORTHOTIC FINISH GRINDING TECHNICIAN Unavailable Unavailable Oakley Falanga, A Jerrica ORTHOTIC FINISH GRINDING TECHNICIAN Unavailable Unavailable Juanita Falanga, A Jerrica ORTHOTIC FINISH GRINDING TECHNICIAN Unavailable Unavailable Juanita Falanga, A Jerrica ORTHOTIC FINISH GRINDING TECHNICIAN Unavailable Unavailable Oakley Falanga, A Jerrica ORTHOTIC FINISH GRINDING TECHNICIAN Unavailable Unavailable Juanita Falanga, A Jerrica ORTHOTIC FINISH GRINDING TECHNICIAN Unavailable Unavailable Oakley Falanga, A Jerrica ORTHOTIC FINISH GRINDING TECHNICIAN Unavailable Unavailable Juanita Falanga, A Jerrica ORTHOTIC FINISH GRINDING TECHNICIAN Unavailable Unavailable Juanita Falanga, A Jerrica ORTHOTIC FINISH GRINDING TECHNICIAN Unavailable Unavailable OROURKE, H NICOLE PATTERN SHOP SUPERVISOR Unavailable Unavailable OROURKE, H NICOLE PATTERN SHOP SUPERVISOR Unavailable Unavailable OROURKE, H NICOLE PATTERN SHOP SUPERVISOR Unavailable Unavailable OROURKE, H NICOLE PATTERN SHOP SUPERVISOR Unavailable Unavailable OROURKE, H NICOLE PATTERN SHOP SUPERVISOR Unavailable Unavailable OROURKE, H NICOLE PATTERN SHOP SUPERVISOR Unavailable Unavailable OROURKE, H NICOLE PATTERN SHOP SUPERVISOR Unavailable Unavailable OROURKE, H NICOLE PATTERN SHOP SUPERVISOR Unavailable Unavailable OROURKE, H NICOLE PATTERN SHOP SUPERVISOR Unavailable Unavailable OROURKE, H NICOLE PATTERN SHOP SUPERVISOR Unavailable Unavailable OROURKE, H NICOLE PATTERN SHOP SUPERVISOR Unavailable Unavailable OROURKE, H NICOLE PATTERN SHOP SUPERVISOR Unavailable Unavailable OROURKE, H NICOLE PATTERN SHOP SUPERVISOR Unavailable Unavailable OROURKE, H NICOLE PATTERN SHOP SUPERVISOR Unavailable Unavailable OROURKE, H NICOLE PATTERN SHOP SUPERVISOR Unavailable Unavailable OROURKE, H NICOLE PATTERN SHOP SUPERVISOR Unavailable Unavailable OROURKE, H NICOLE PATTERN SHOP SUPERVISOR Unavailable Unavailable OROURKE, H NICOLE PATTERN SHOP SUPERVISOR Unavailable Unavailable OROURKE, H NICOLE PATTERN SHOP SUPERVISOR Unavailable Unavailable OROURKE, H NICOLE PATTERN SHOP SUPERVISOR Unavailable Unavailable OROURKE, H NICOLE PATTERN SHOP SUPERVISOR Unavailable Unavailable OROURKE, H NICOLE PATTERN SHOP SUPERVISOR Unavailable Unavailable OROURKE, H NICOLE PATTERN SHOP SUPERVISOR Unavailable Unavailable OROURKE, H NICOLE PATTERN SHOP SUPERVISOR Unavailable Unavailable OROURKE, H NICOLE PATTERN SHOP SUPERVISOR Unavailable Unavailable OROURKE, H NICOLE PATTERN SHOP SUPERVISOR Unavailable Unavailable OROURKE, H NICOLE PATTERN SHOP SUPERVISOR Unavailable Unavailable OROURKE, H NICOLE PATTERN SHOP SUPERVISOR Unavailable Unavailable OROURKE, H NICOLE PATTERN SHOP SUPERVISOR Unavailable Unavailable OROURKE, H NICOLE PATTERN SHOP SUPERVISOR Unavailable Unavailable OROURKE, H NICOLE PATTERN SHOP SUPERVISOR Unavailable Unavailable OROURKE, H NICOLE PATTERN SHOP SUPERVISOR Unavailable Unavailable OROURKE, H NICOLE PATTERN SHOP SUPERVISOR Unavailable Unavailable OROURKE, H NICOLE PATTERN SHOP SUPERVISOR Unavailable Unavailable OROURKE, H NICOLE PATTERN SHOP SUPERVISOR Unavailable Unavailable OROURKE, H NICOLE PATTERN SHOP SUPERVISOR Unavailable Unavailable OROURKE, H NICOLE PATTERN SHOP SUPERVISOR Unavailable Unavailable OROURKE, H NICOLE PATTERN SHOP SUPERVISOR Unavailable Unavailable OROURKE, H NICOLE PATTERN SHOP SUPERVISOR Unavailable Unavailable OROURKE, H NICOLE PATTERN SHOP SUPERVISOR Unavailable Unavailable OROURKE, H NICOLE PATTERN SHOP SUPERVISOR Unavailable Unavailable OROURKE, H NICOLE PATTERN SHOP SUPERVISOR Unavailable Unavailable OROURKE, H NICOLE PATTERN SHOP SUPERVISOR Unavailable Unavailable OROURKE, H NICOLE PATTERN SHOP SUPERVISOR Unavailable Unavailable OROURKE, H NICOLE PATTERN SHOP SUPERVISOR Unavailable Unavailable OROURKE, H NICOLE PATTERN SHOP SUPERVISOR Unavailable Unavailable OROURKE, H NICOLE PATTERN SHOP SUPERVISOR Unavailable Unavailable OROURKE, H NICOLE PATTERN SHOP SUPERVISOR Unavailable Unavailable OROURKE, H NICOLE PATTERN SHOP SUPERVISOR Unavailable Unavailable OROURKE, H NICOLE PATTERN SHOP SUPERVISOR Unavailable Unavailable OROURKE, H NICOLE PATTERN SHOP SUPERVISOR Unavailable Unavailable OROURKE, H NICOLE PATTERN SHOP SUPERVISOR Unavailable Unavailable OROURKE, H NICOLE PATTERN SHOP SUPERVISOR Unavailable Unavailable OROURKE, H NICOLE PATTERN SHOP SUPERVISOR Unavailable Unavailable OROURKE, H NICOLE PATTERN SHOP SUPERVISOR Unavailable Unavailable OROURKE, H NICOLE PATTERN SHOP SUPERVISOR Unavailable Unavailable YVETTE VALENCIA MD Unavailable Unavailable YVETTE VALENCIA MD Unavailable Unavailable YVETTE VALENCIA MD Unavailable Unavailable YVETTE VALENCIA MD Unavailable Unavailable YVETTE VALENCIA MD Unavailable Unavailable ANNIEYVETTE MD Unavailable Unavailable ANNIEYVETTE MD Unavailable Unavailable ANNIEYVETTE MD Unavailable Unavailable ANNIEYVETTE MD Unavailable Unavailable ANNIEYVETTE MD Unavailable Unavailable ANNIEYVETTE MD Unavailable Unavailable ANNIEYVETTE MD Unavailable Unavailable ANNIEYVETTE MD Unavailable Unavailable YVETTE VALENCIA MD Unavailable [...] MD Unavailable Unavailable ANNIEYVETTE MD Unavailable Unavailable YVETTE VALENCIA MD Unavailable Unavailable ANNIEYVETTE MD Unavailable Unavailable ANNIEYVETTE MD Unavailable Unavailable ANNIEYVETTE MD Unavailable Unavailable ANNIE CRAWFORD MD Unavailable Unavailable ANNIEYVETTE MD Unavailable Unavailable [...] ANNIE, YVETTE MD Unavailable Unavailable ANNIE, YVETTE SAVAGE Unavailable Unavailable ANNIE, CRAWFORD MD Unavailable Unavailable DRAZEK, I CATRACHITA PA [...] Unavailable DRAZEK, I CATRACHITA PA Unavailable Unavailable Fish, B Richard SAVAGE Unavailable Unavailable Fish, B Richard SAVAGE Unavailable Unavailable Fish, B Richard SAVAGE Unavailable Unavailable Fish, B Richard SAVAGE Unavailable Unavailable Fish, B Richard SAVAGE Unavailable Unavailable Fish, B Richard SAVAGE Unavailable Unavailable Fish, B Richard SAVAGE Unavailable Unavailable Fish, B Richard SAVAGE Unavailable Unavailable Fish, B Richard SAVAGE Unavailable Unavailable Fish, B Richard SAVAGE Unavailable Unavailable Fish, B Richard SAVAGE Unavailable Unavailable Fish, B Richard SAVAGE Unavailable Unavailable Fish, B Richard SAVAGE Unavailable Unavailable Fish, B Richard SAVAGE Unavailable Unavailable Fish, B Richard SAVAGE Unavailable Unavailable Fish, B Richard SAVAGE Unavailable Unavailable Fish, B Richard SAVAGE Unavailable Unavailable Fish, B Richard SAVAGE Unavailable Unavailable Fish, B Richard SAVAGE Unavailable Unavailable Fish, B Richard SAVAGE Unavailable Unavailable Fish, B Richard SAVAGE Unavailable Unavailable Fish, B Richard SAVAGE Unavailable Unavailable Fish, B Richard SAVAGE Unavailable Unavailable Fish, B Richard SAVAGE Unavailable Unavailable Fish, B Richard SAVAGE Unavailable Unavailable Fish, B Richard SAVAGE Unavailable Unavailable Fish, B Richard SAVAGE Unavailable Unavailable Fish, B Richard SAVAGE Unavailable Unavailable Fish, B Richard SAVAGE Unavailable Unavailable Fish, B Richard SAVAGE Unavailable Unavailable Fish, B Richard SAVAGE Unavailable Unavailable Fish, B Richard SAVAGE Unavailable Unavailable Fish, B Richard SAVAGE Unavailable Unavailable Fish, B Richard SAVAGE Unavailable Unavailable Fish, B Richard SAVAGE Unavailable Unavailable Fish, B Richard SAVAGE Unavailable Unavailable Fish, B Richard SAVAGE Unavailable Unavailable Fish, B Richard SAVAGE Unavailable Unavailable Fish, B Richard SAVAGE Unavailable Unavailable Fish, B Richard SAVAGE Unavailable Unavailable Fish, B Richard SAVAGE Unavailable Unavailable Fish, B Richard SAVAGE Unavailable Unavailable Fish, B Richard SAVAGE Unavailable Unavailable Fish, B Richard SAVAGE Unavailable Unavailable Fish, B Richard SAVAGE Unavailable Unavailable Fish, B Richard SAVAGE Unavailable Unavailable Fish, B Richard SAVAGE Unavailable Unavailable Fish, B Richard SAVAGE Unavailable Unavailable Fish, B Richard SAVAGE Unavailable Unavailable Fish, B Richard SAVAGE Unavailable Unavailable Fish, B Richard SAVAGE Unavailable Unavailable Fish, B Richard SAVAGE Unavailable Unavailable Fish, B Richard SAVAGE Unavailable Unavailable Fish, B Richard SAVAGE Unavailable Unavailable Fish, B Richard SAVAGE Unavailable Unavailable Fish, B Richard SAVGAE Unavailable Unavailable Fish, B Richard SAVAGE Unavailable Unavailable Trent Puentes MD Unavailable Unavailable [...] Unavailable Puentes, Trent Maloney MD Unavailable Unavailable Puetnes, Trent Maloney MD Unavailable Unavailable Puentes, Trent [...] Unavailable Puentes, Trent Maloney MD Unavailable Unavailable CHANRenzo RIOS MD Unavailable Unavailable CHANLIECRenzo ARCHIBALD MD Unavailable Unavailable CHANLIECRenzo ARCHIBALD MD Unavailable Unavailable CHANLIECRenzo ARCHIBALD MD Unavailable Unavailable CHANLIECRenzo ARCHIBALD MD Unavailable Unavailable CHANLIECRenzo ARCHIBALD MD Unavailable Unavailable CHANLIECRenzo ARCHIBALD MD Unavailable Unavailable CHANLIECRenzo ARCHIBALD MD Unavailable Unavailable CHANLIECCORenzo MD Unavailable Unavailable CHANLIECRenzo ARCHIBALD MD Unavailable Unavailable CHANLIECRenzo ARCHIBALD MD Unavailable Unavailable Re-disclosure Warning The records [...] is protected by Article 27-F of the [facility] Public Health law. If you continue you may have access to information: Regarding HIV / AIDS; Provided by facilities licensed or operated by the [facility] Office of Mental Health; or Provided by the [facility] Office for People With Developmental Disabilities. If such information is present, then the following [facility] mandated warning applies: This information has been [...] law may result in a fine or fci sentence or both. A general authorization for the release of medical or other information is NOT sufficient authorization for further disc losure. Allergies and Adverse Reactions Type Description Substance Reaction Status Data Source(s ) Propensity to adverse reactions LATEX LATEX [facility] Propensity to adverse reactions ADHESIVE ADHESIVE [facility] Drug allergy CODEINE CODEINE [place] [facility] Family History Family Member Name Family Member Gender Family Member Status Date o f Status Description Data Source(s) Unknown Unknown Problem MEDENT ([facility]) Encounters Encounter Providers Location Date Indications Data Source(s ) Outpatient Attender: JOIE Rios: Gauri kan MD 09/17/2021 12:00:00 AM [facility] Unknown [address] [facility] [address] 09/12/2021 12:00:00 AM EST eCW1 ([facility]) Unknown [address] [facility] [address] 09/11/2021 12:00:00 AM EST eCW1 ([facility]) Unknown [address] [facility] [place] [address] 09/09/2021 12:00:00 AM EST eCW1 ([facility]) Outpatient [address] [facility] [place] [address] 09/04/2021 12:00:00 AM EST eCW1 ([facility]) Unknown [address] [facility] [place] [address] 09/03/2021 12:00:00 AM EST eCW1 ([facility]) Unknown [address] [facility] [place] [address] 09/03/2021 12:00:00 AM EST [facility]) Outpatient Attender: JOIE Brownerrer: Gauri kan MD 09/03/2021 12:00:00 AM [facility] Unknown [address] [facility] [place] [address] 09/02/2021 12:00:00 AM EST eCW1 ([facility]) Unknown [address] [facility] [place] [address] 08/26/2021 12:00:00 AM EST eCW1 ([facility]) Unknown [address] [facility] [address] 08/16/2021 12:00:00 AM EST eCW1 ([facility]) Unknown [address] [facility] [address] 08/15/2021 12:00:00 AM EST eCW1 ([facility]) Unknown [address] [facility] [place] [address] 08/12/2021 12:00:00 AM EST eCW1 ([facility]) Outpatient Attender: ITZEL IRIZARRY [facility] Office 10/2020 10:00:00 AM EDT MEDENT ([facility] Unknown [address] [facility] [address] 07/30/2021 12:00:00 AM EDT eCW1 ([facility]) Unknown [address] [facility], [place] [address] 07/29/2021 12:00:00 AM EDT eCW1 ([facility]) Unknown [address] [facility] [place] [address] 07/23/2021 12:00:00 AM EDT eCW1 ([facility]) Outpatient [address] [facility] [address] 07/22/2021 12:00:00 AM EDT eCW1 ([facility]) Unknown [address] [facility] [place] [address] 07/22/2021 12:00:00 AM EDT eCW1 ([facility]) OFFICE OUTPATIENT VISIT 15 MINUTES Attender: Aidee GANT PA-C Physical Therapy 07/19/2021 01:00:00 PM EDT MEDENT ([facility]) Unknown [address] [facility] [address] 07/15/2021 12:00:00 AM EDT eCW1 ([facility]) Unknown [address] [facility] [place] [address] 07/12/2021 12:00:00 AM EDT eCW1 ([facility]) Unknown [address] [facility] [place] [address] 07/04/2021 12:00:00 AM EDT eCW1 ([facility]) OFFICE OUTPATIENT VISIT 15 MINUTES Attender: CATRACHITA Smart ical Therapy 07/03/2021 01:45:00 PM EDT MEDENT ([facility]) Unknown [address] [facility] [place] [address] 07/03/2021 12:00:00 AM EDT eCW1 ([facility]) Outpatient Attender: ITZEL IRIZARRY [facility] Office 06/06 10:45:00 AM EDT MED[facility] ([facility] [place] [address] [facility] [address] 06/28/2021 12:00:00 AM EDT eCW1 ([facility]) Outpatient [address] [facility] [address] 06/28/2021 12:00:00 AM EDT eCW1 ([facility]) Outpatient Attender: Aidee GANT PA-C Physical Therapy 06/21/2021 03:30:00 PM EDT MEDENT ([facility]) Unknown [address] [facility] [address] 06/21/2021 12:00:00 AM EDT eCW1 ([facility]) Unknown [address] [facility] [address] 06/17/2021 12:00:00 AM EDT eCW1 ([facility]) Outpatient [address] [facility] [address] 06/13/2021 12:00:00 AM EDT eCW1 ([facility]) Unknown [address] [facility] [address] 06/07/2021 12:00:00 AM EDT eCW1 ([facility]) Outpatient Attender: ITZEL IRIZARRY [facility] Office 05/07 11:00:00 AM EDT MEDENT ([facility] Outpatient Referrer: YVETTE VALENCIA MD [email or web address] 07:40:13 AM EDT - 05/31/2021 11:52:12 AM EDT [facility] Unknown [address] [facility] [address] 05/27/2021 12:00:00 AM EDT eCW1 ([facility]) Outpatient Attender: Haider Purcell/Giovanni/Gricelda gray 05/23/2021 01:15:00 PM EDT MEDENT ([facility]) OFFICE OUTPATIENT VISIT 15 MINUTES Attender: Marielena LANDRY Physical Therapy 05/21/2021 02:45:00 PM EDT MEDENT ([facility]) Unknown [address] [facility] [address] [address] 05/17/2021 12:00:00 AM EDT eCW1 ([facility]) Outpatient [address] [facility] [place] [address] 05/16/2021 12:00:00 AM EDT eCW1 ([facility]) Unknown [address] [facility] [place] [address] 05/16/2021 12:00:00 AM EDT eCW1 ([facility]) Unknown [address] [facility] [place] [address] 05/15/2021 12:00:00 AM EDT eCW1 ([facility]) Unknown [address] [facility] [place] [address] 05/08/2021 12:00:00 AM EDT eCW1 ([facility]) Unknown [address] [facility] [place] [address] 05/08/2021 12:00:00 AM EDT eCW1 ([facility]) Unknown [address] [facility] [place] [address] 05/08/2021 12:00:00 AM EDT eCW1 ([facility]) Outpatient Attender: ITZEL IRIZARRY [facility] Office 04/05 10:30:00 AM EDT MEDENT ([facility] Unknown [address] [facility] [place] [address] 04/29/2021 12:00:00 AM EDT eCW1 ([facility]) Outpatient [address] [facility] [place] [address] 04/25/2021 12:00:00 AM EDT eCW1 ([facility]) Outpatient Attender: YVETTE VALENCIA MDReferrer: NICOLE OROURKE [employer]PER[employer] SJP .[email or web address] 04/19/2021 12:58:45 PM EDT - 04/19/2021 01:45:40 PM EDT [facility] Outpatient Attender: ITZEL IRIZARRY [facility] Office 04/04 11:15:00 AM EDT MEDENT ([facility] Unknown [address] [facility] [address], [facility] [address] 04/17/2021 12:00:00 AM EDT [facility]) Unknown [address] [facility] [place] [address] 04/15/2021 12:00:00 AM EDT eCW1 [facility]) Outpatient [address] [facility] [address] 04/15/2021 12:00:00 AM EDT eCW1 ([facility]) Unknown [address] [facility] [place] [address] 04/11/2021 12:00:00 AM EDT eCW1 ([facility]) Outpatient [address] [facility] [place] [address] 04/10/2021 12:00:00 AM EDT eCW1 ([facility]) Unknown [address] [facility] [address] 04/04/2021 12:00:00 AM EDT eCW1 ([facility]) Outpatient Attender: Jerrica almanzar FNPAttender: KRISTAN SWAIN MDConsultant: NICOLE OROURKE NP 03/29/2021 01:56:00 PM EDT - 03/30/2021 02:35:[address] [facility] Patient discharged. Unknown [address] [place] [address] [place] [address] 03/29/2021 12:00:00 AM EDT eCW1 ([facility]) Emergency Attender: YOHANA CASON MDConsultant: NICOLE Kirkpatrick P 03/22/2021 04:02:00 PM EDT - 03/22/2021 06:26:[address] [facility] Patient discharged. Outpatient Attender: ITZEL IRIZARRY [facility] Office 03/05 01:00:00 PM EDT MEDENT ([facility] Unknown [address] [facility] [address], [facility] [address] 03/18/2021 12:00:00 AM EDT eCW1 ([facility]) ([facility]) Transition of Care Visit [address] [place] [address] 03/15/2021 12:00:00 AM EDT eCW1 ([facility]) Outpatient Attender: ITZEL IRIZARRY [facility] Office 05/2021 10:30:00 AM EDT MEDENT ([facility] Unknown [address] [facility], [place] [address] 03/11/2021 12:00:00 AM EDT eCW1 ([facility]) Unknown [address] [facility] [place] [address] 03/07/2021 12:00:00 AM EDT eCW1 ([facility]) Outpatient Attender: ITZEL IRIZARRY [facility] Office 02/03 10:30:00 AM EDT MEDENT ([facility] Outpatient Attender: Richard Pond MDConsultant: NICOLE OROURKE NP 02/25/2021 12:08:[address] [facility] Unknown [address] [facility] [place] [address] 02/25/2021 12:00:00 AM EDT eCW1 ([facility]) Outpatient Attender: Marielena LANDRY Physical Therapy 03:45:00 PM EDT MEDENT ([facility]) [place] [address] [facility] [address] 02/14/2021 12:00:00 AM EDT eCW1 ([facility]) Unknown [address] [facility] [address] 02/14/2021 12:00:00 AM EDT eCW1 ([facility]) Outpatient Attender: ITZEL IRIZARRY [facility] Office 02/02 11:00:00 AM EDT MEDENT ([facility] Unknown [address] [facility] [place] [address] 02/12/2021 12:00:00 AM EDT eCW1 ([facility]) Unknown [address] [facility] [place] [address] 02/12/2021 12:00:00 AM EDT eCW1 ([facility]) Unknown [address] [facility] [address] 02/11/2021 12:00:00 AM EDT eCW1 ([facility]) Outpatient Attender: ITZEL IRIZARRY [facility] Office 01/05 11:15:00 AM EDT MEDENT ([facility] Unknown [address] [facility] [place] [address] 01/28/2021 12:00:00 AM EDT eCW1 ([facility] Outpatient [address] [facility] [place] [address] 01/25/2021 12:00:00 AM EDT eCW1 ([facility]) Unknown [address] [facility] [place] [address] 01/24/2021 12:00:00 AM EDT eCW1 ([facility]) Unknown [address] [facility] [place] [address] 01/21/2021 12:00:00 AM EDT eCW1 ([facility]) Unknown [address] [facility] [address] 01/21/2021 12:00:00 AM EDT eCW1 ([facility]) Unknown [address] [facility] [address] 01/15/2021 12:00:00 AM EDT eCW1 [facility]) Unknown [address] [facility] [address] 01/08/2021 12:00:00 AM EDT eCW1 ([facility]) Outpatient Attender: JEFFREY Purcell/Giovanni/Danny stuart/Neha 12/26/2020 11:30:00 AM EDT MEDENT ([facility]) Unknown [address] [facility] [address] 12/26/2020 12:00:00 AM EDT eCW1 ([facility]) Unknown [address] [facility] [address] 12/25/2020 12:00:00 AM EDT eCW1 ([facility]) Office Visit Attender: Marielena LANDRY Physical Therapy 03:45:00 PM EDT MEDENT ([facility]) Unknown [address] [facility] [address] 12/12/2020 12:00:00 AM EST eCW1 ([facility]) Unknown [address] [facility] [address] 12/12/2020 12:00:00 AM EST eCW1 ([facility]) Outpatient [address] [facility] [address] 12/11/2020 12:00:00 AM EST eCW1 ([facility]) Unknown [address] [facility] [place] [address] 12/11/2020 12:00:00 AM EST [facility]CW1 [facility]) Outpatient [address] [facility] [address] 12/10/2020 12:00:00 AM EST eCW1 ([facility]) Outpatient Attender: ITZEL IRIZARRY [facility] Office 02/2021 02:15:00 PM EST MEDENT ([facility] Unknown [address] [facility] [place] [address] 12/07/2020 12:00:00 AM EST eCW1 ([facility]) Unknown [address] [facility] [place] [address] 12/07/2020 12:00:00 AM EST eCW1 ([facility]) Unknown [address] [facility] [place] [address] 12/06/2020 12:00:00 AM EST eCW1 ([facility]) Unknown [address] [facility] [place] [address] 12/05/2020 12:00:00 AM EST eCW1 ([facility]) Unknown [address] [facility] [place] [address] 12/03/2020 12:00:00 AM EST eCW1 ([facility]) Unknown [address] [facility] [place] [address] 11/29/2020 12:00:00 AM EST eCW1 ([facility]) Unknown [address] [facility] [place] [address] 11/27/2020 12:00:00 AM EST eCW1 ([facility]) Unknown [address] [facility] [place] [address] 11/22/2020 12:00:00 AM EST eCW1 ([facility]) Outpatient [address] [facility] [place] [address] 11/20/2020 12:00:00 AM EST eCW1 ([facility]) Outpatient Attender: TANESHA crow 11/17/2020 08:35:00 AM EST MEDENT ([facility] [place] [address] [facility] [address] 11/09/2020 12:00:00 AM EST eCW1 ([facility]) Outpatient Attender: ITZEL IRIZARRY [facility] Office 11/2020 01:30:00 PM EST MEDENT ([facility] [place] [address] [facility] [address] 10/30/2020 12:00:00 AM EST eCW1 ([facility]) Outpatient [address] [facility] [place] [address] 10/09/2020 12:00:00 AM EST eCW1 ([facility]) Unknown [address] [facility] [place] [address] 10/02/2020 12:00:00 AM EST eCW1 ([facility]) Unknown [address] [facility] [place] [address] 09/24/2020 12:00:00 AM EST eCW1 ([facility]) Outpatient [address] [facility] [place] [address] 09/24/2020 12:00:00 AM EST eCW1 ([facility]) Unknown [address] [facility] [place] [address] 09/21/2020 12:00:00 AM EST eCW1 ([facility]) Unknown [address] [facility] [place] [address] 09/21/2020 12:00:00 AM EST eCW1 ([facility]) Unknown [address] [facility] [place] [address] 09/11/2020 12:00:00 AM EST eCW1 ([facility]) Unknown [address] [facility] [place] [address] 09/10/2020 12:00:00 AM EST eCW1 ([facility]) Unknown [address] [facility] [place] [address] 09/06/2020 12:00:00 AM EST eCW1 ([facility]) Unknown [address] [facility] [address] 09/06/2020 12:00:00 AM EST eCW1 ([facility]) Office Visit Attender: ITZEL IRIZARRY [facility] Office 11/2019 09:30:00 AM EST MEDENT ([facility] Unknown [address] [facility] [address] 09/03/2020 12:00:00 AM EST eCW1 ([facility]) Unknown [address] [facility] [address] 08/23/2020 12:00:00 AM EST eCW1 ([facility]) Unknown [address] [facility] [address] 08/20/2020 12:00:00 AM EST eCW1 ([facility]) Office Visit Attender: ITZEL IRIZARRY [facility] Office 08/05 01:30:00 PM EST MEDENT ([facility] Unknown [address] [facility] [address] 08/13/2020 12:00:00 AM EST eCW1 ([facility]) Unknown [address] [facility] [address] 08/09/2020 12:00:00 AM EST eCW1 ([facility]) (WND MANUELTCH) Stretcher Required Patients [address] [place] [address] 08/09/2020 12:00:00 AM EST eCW1 ([facility]) Unknown [address] [facility] [address] 08/08/2020 12:00:00 AM EST eCW1 ([facility]) Outpatient [address] [facility] [address] 08/08/2020 12:00:00 AM EST eCW1 ([facility]) Unknown [address] [facility] [address] 08/08/2020 12:00:00 AM EST eCW1 ([facility]) Outpatient [address] [facility] [address] 08/07/2020 12:00:00 AM EST eCW1 ([facility]) Unknown [address] [facility] [address] 08/07/2020 12:00:00 AM EST eCW1 ([facility]) Office Visit Attender: ITZEL IRIZARRY [facility] Office 11/2019 02:00:00 PM EST MEDENT ([facility] Unknown [address] [facility] [address] 08/06/2020 12:00:00 AM EST eCW1 ([facility]) (WNKristyn YOON) Stretcher Required Patients [address] [place] [address] 07/26/2020 12:00:00 AM EDT eCW1 ([facility]) Office Visit Attender: ITZEL IRIZARRY [facility] Office 07/05 08:45:00 AM EDT MEDENT ([facility] Outpatient [address] [facility] [address] 07/17/2020 12:00:00 AM EDT eCW1 ([facility]) Outpatient Attender: YVETTE VALENCIA MDReferrer: YVETTE VALENCIA MD SJP .CT-SJP 07/03/2020 11:53:21 AM EDT [facility] Immunizations Vaccine Date Status Description Data Source(s) COVID-19 VACCINE Moderna 08/09/2021 12:00:00 AM EDT completed [employer] Vaccine Series Complete: YESThis Data wa s Submitted to [facility] Via [employer]. COVID-19 dose #2 given elsewhere Unspecified 01/07/2021 03:4 8:00 PM EDT completed eCW1 ([facility]) COVID-19 dose #2 given elsewhere Unspecified 01/07/2021 03:4 8:00 PM EDT completed eCW1 ([facility]) COVID-19 dose #2 given elsewhere Unspecified 01/07/2021 03:4 8:00 PM EDT completed eCW1 ([facility]) COVID-19 dose #2 given elsewhere Unspecified 01/07/2021 03:4 8:00 PM EDT completed eCW1 ([facility]) COVID-19 dose #2 given elsewhere Unspecified 01/07/2021 03:4 8:00 PM EDT completed eCW1 ([facility]) COVID-19 dose #2 given elsewhere Unspecified 01/07/2021 03:4 8:00 PM EDT completed eCW1 ([facility]) COVID-19 dose #2 given elsewhere Unspecified 01/07/2021 03:4 8:00 PM EDT completed eCW1 ([facility]) COVID-19 dose #2 given elsewhere Unspecified 01/07/2021 03:4 8:00 PM EDT completed eCW1 ([facility]) COVID-19 dose #2 given elsewhere Unspecified 01/07/2021 03:4 8:00 PM EDT completed eCW1 ([facility]) COVID-19 dose #2 given elsewhere Unspecified 01/07/2021 03:4 8:00 PM EDT completed eCW1 ([facility]) COVID-19 dose #2 given elsewhere Unspecified 01/07/2021 03:4 8:00 PM EDT completed eCW1 ([facility]) COVID-19 dose #2 given elsewhere Unspecified 01/07/2021 03:4 8:00 PM EDT completed eCW1 ([facility]) COVID-19 dose #2 given elsewhere Unspecified 01/07/2021 03:4 8:00 PM EDT completed eCW1 ([facility]) COVID-19 dose #2 given elsewhere Unspecified 01/07/2021 03:4 8:00 PM EDT completed eCW1 ([facility]) COVID-19 dose #2 given elsewhere Unspecified 01/07/2021 03:4 8:00 PM EDT completed eCW1 ([facility]) COVID-19 dose #2 given elsewhere Unspecified 01/07/2021 03:4 8:00 PM EDT completed eCW1 ([facility]) COVID-19 dose #2 given elsewhere Unspecified 01/07/2021 03:4 8:00 PM EDT completed eCW1 ([facility]) COVID-19 dose #2 given elsewhere Unspecified 01/07/2021 03:4 8:00 PM EDT completed eCW1 ([facility]) COVID-19 dose #2 given elsewhere Unspecified 01/07/2021 03:4 8:00 PM EDT completed eCW1 ([facility]) COVID-19 dose #2 given elsewhere Unspecified 01/07/2021 03:4 8:00 PM EDT completed eCW1 ([facility]) COVID-19 dose #2 given elsewhere Unspecified 01/07/2021 03:4 8:00 PM EDT completed eCW1 ([facility]) COVID-19 dose #2 given elsewhere Unspecified 01/07/2021 03:4 8:00 PM EDT completed eCW1 ([facility]) COVID-19 dose #2 given elsewhere Unspecified 01/07/2021 03:4 8:00 PM EDT completed eCW1 ([facility]) COVID-19 dose #2 given elsewhere Unspecified 01/07/2021 03:4 8:00 PM EDT completed eCW1 ([facility]) COVID-19 dose #2 given elsewhere Unspecified 01/07/2021 03:4 8:00 PM EDT completed eCW1 ([facility]) COVID-19 dose #2 given elsewhere Unspecified 01/07/2021 03:4 8:00 PM EDT completed eCW1 ([facility]) COVID-19 dose #2 given elsewhere Unspecified 01/07/2021 03:4 8:00 PM EDT completed eCW1 ([facility]) COVID-19 dose #2 given elsewhere Unspecified 01/07/2021 03:4 8:00 PM EDT completed eCW1 ([facility]) COVID-19 dose #2 given elsewhere Unspecified 01/07/2021 03:4 8:00 PM EDT completed eCW1 ([facility]) COVID-19 dose #2 given elsewhere Unspecified 01/07/2021 03:4 8:00 PM EDT completed eCW1 ([facility]) COVID-19 dose #2 given elsewhere Unspecified 01/07/2021 03:4 8:00 PM EDT completed eCW1 ([facility]) COVID-19 dose #2 given elsewhere Unspecified 01/07/2021 03:4 8:00 PM EDT completed eCW1 ([facility]) COVID-19 dose #2 given elsewhere Unspecified 01/07/2021 03:4 8:00 PM EDT completed eCW1 ([facility]) COVID-19 dose #2 given elsewhere Unspecified 01/07/2021 03:4 8:00 PM EDT completed eCW1 ([facility]) COVID-19 dose #2 given elsewhere Unspecified 01/07/2021 03:4 8:00 PM EDT completed eCW1 ([facility]) COVID-19 dose #2 given elsewhere Unspecified 01/07/2021 03:4 8:00 PM EDT completed eCW1 ([facility]) COVID-19 dose #2 given elsewhere Unspecified 01/07/2021 03:4 8:00 PM EDT completed eCW1 ([facility]) COVID-19 dose #2 given elsewhere Unspecified 01/07/2021 03:4 8:00 PM EDT completed eCW1 ([facility]) COVID-19 dose #2 given elsewhere Unspecified 01/07/2021 03:4 8:00 PM EDT completed eCW1 ([facility]) COVID-19 dose #2 given elsewhere Unspecified 01/07/2021 03:4 8:00 PM EDT completed eCW1 ([facility]) COVID-19 dose #2 given elsewhere Unspecified 01/07/2021 03:4 8:00 PM EDT completed eCW1 ([facility]) COVID-19 dose #2 given elsewhere Unspecified 01/07/2021 03:4 8:00 PM EDT completed eCW1 ([facility]) COVID-19 dose #2 given elsewhere Unspecified 01/07/2021 03:4 8:00 PM EDT completed eCW1 ([facility]) COVID-19 dose #2 given elsewhere Unspecified 01/07/2021 03:4 8:00 PM EDT completed eCW1 ([facility]) COVID-19 dose #2 given elsewhere Unspecified 01/07/2021 03:4 8:00 PM EDT completed eCW1 ([facility]) COVID-19 dose #2 given elsewhere Unspecified 01/07/2021 03:4 8:00 PM EDT completed eCW1 ([facility]) COVID-19 dose #2 given elsewhere Unspecified 01/07/2021 03:4 8:00 PM EDT completed eCW1 ([facility]) COVID-19 dose #2 given elsewhere Unspecified 01/07/2021 03:4 8:00 PM EDT completed eCW1 ([facility]) COVID-19 dose #2 given elsewhere Unspecified 01/07/2021 03:4 8:00 PM EDT completed eCW1 ([facility]) COVID-19 dose #2 given elsewhere Unspecified 01/07/2021 03:4 8:00 PM EDT completed eCW1 ([facility]) COVID-19 dose #2 given elsewhere Unspecified 01/07/2021 03:4 8:00 PM EDT completed eCW1 ([facility]) COVID-19 dose #2 given elsewhere Unspecified 01/07/2021 03:4 8:00 PM EDT completed eCW1 ([facility]) COVID-19 dose #2 given elsewhere Unspecified 01/07/2021 03:4 8:00 PM EDT completed eCW1 ([facility]) COVID-19 dose #2 given elsewhere Unspecified 01/07/2021 03:4 8:00 PM EDT completed eCW1 ([facility]) COVID-19 dose #2 given elsewhere Unspecified 01/07/2021 03:4 8:00 PM EDT completed eCW1 ([facility]) COVID-19 VACCINE Moderna 01/07/2021 12:00:00 AM EDT completed [employer] Vaccine Series Complete: YESThis Data wa s Submitted to [facility] Via [employer]. COVID-19 dose #1 given elsewhere Unspecified 12/11/2020 10:0 8:00 AM EST completed eCW1 ([facility]) COVID-19 dose #1 given elsewhere Unspecified 12/11/2020 10:0 8:00 AM EST completed eCW1 ([facility]) COVID-19 dose #1 given elsewhere Unspecified 12/11/2020 10:0 8:00 AM EST completed eCW1 ([facility]) COVID-19 dose #1 given elsewhere Unspecified 12/11/2020 10:0 8:00 AM EST completed eCW1 ([facility]) COVID-19 dose #1 given elsewhere Unspecified 12/11/2020 10:0 8:00 AM EST completed eCW1 ([facility]) COVID-19 dose #1 given elsewhere Unspecified 12/11/2020 10:0 8:00 AM EST completed eCW1 ([facility]) COVID-19 dose #1 given elsewhere Unspecified 12/11/2020 10:0 8:00 AM EST completed eCW1 ([facility]) COVID-19 dose #1 given elsewhere Unspecified 12/11/2020 10:0 8:00 AM EST completed eCW1 ([facility]) COVID-19 dose #1 given elsewhere Unspecified 12/11/2020 10:0 8:00 AM EST completed eCW1 ([facility]) COVID-19 dose #1 given elsewhere Unspecified 12/11/2020 10:0 8:00 AM EST completed eCW1 ([facility]) COVID-19 dose #1 given elsewhere Unspecified 12/11/2020 10:0 8:00 AM EST completed eCW1 ([facility]) COVID-19 dose #1 given elsewhere Unspecified 12/11/2020 10:0 8:00 AM EST completed eCW1 ([facility]) COVID-19 dose #1 given elsewhere Unspecified 12/11/2020 10:0 8:00 AM EST completed eCW1 ([facility]) COVID-19 dose #1 given elsewhere Unspecified 12/11/2020 10:0 8:00 AM EST completed eCW1 ([facility]) COVID-19 dose #1 given elsewhere Unspecified 12/11/2020 10:0 8:00 AM EST completed eCW1 ([facility]) COVID-19 dose #1 given elsewhere Unspecified 12/11/2020 10:0 8:00 AM EST completed eCW1 ([facility]) COVID-19 dose #1 given elsewhere Unspecified 12/11/2020 10:0 8:00 AM EST completed eCW1 ([facility]) COVID-19 dose #1 given elsewhere Unspecified 12/11/2020 10:0 8:00 AM EST completed eCW1 ([facility]) COVID-19 dose #1 given elsewhere Unspecified 12/11/2020 10:0 8:00 AM EST completed eCW1 ([facility]) COVID-19 dose #1 given elsewhere Unspecified 12/11/2020 10:0 8:00 AM EST completed eCW1 ([facility]) COVID-19 dose #1 given elsewhere Unspecified 12/11/2020 10:0 8:00 AM EST completed eCW1 ([facility]) COVID-19 dose #1 given elsewhere Unspecified 12/11/2020 10:0 8:00 AM EST completed eCW1 ([facility]) COVID-19 dose #1 given elsewhere Unspecified 12/11/2020 10:0 8:00 AM EST completed eCW1 ([facility]) COVID-19 dose #1 given elsewhere Unspecified 12/11/2020 10:0 8:00 AM EST completed eCW1 ([facility]) COVID-19 dose #1 given elsewhere Unspecified 12/11/2020 10:0 8:00 AM EST completed eCW1 ([facility]) COVID-19 dose #1 given elsewhere Unspecified 12/11/2020 10:0 8:00 AM EST completed eCW1 ([facility]) COVID-19 dose #1 given elsewhere Unspecified 12/11/2020 10:0 8:00 AM EST completed eCW1 ([facility]) COVID-19 dose #1 given elsewhere Unspecified 12/11/2020 10:0 8:00 AM EST completed eCW1 ([facility]) COVID-19 dose #1 given elsewhere Unspecified 12/11/2020 10:0 8:00 AM EST completed eCW1 ([facility]) COVID-19 dose #1 given elsewhere Unspecified 12/11/2020 10:0 8:00 AM EST completed eCW1 ([facility]) COVID-19 dose #1 given elsewhere Unspecified 12/11/2020 10:0 8:00 AM EST completed eCW1 ([facility]) COVID-19 dose #1 given elsewhere Unspecified 12/11/2020 10:0 8:00 AM EST completed eCW1 ([facility]) COVID-19 dose #1 given elsewhere Unspecified 12/11/2020 10:0 8:00 AM EST completed eCW1 ([facility]) COVID-19 dose #1 given elsewhere Unspecified 12/11/2020 10:0 8:00 AM EST completed eCW1 ([facility]) COVID-19 dose #1 given elsewhere Unspecified 12/11/2020 10:0 8:00 AM EST completed eCW1 ([facility]) COVID-19 dose #1 given elsewhere Unspecified 12/11/2020 10:0 8:00 AM EST completed eCW1 ([facility]) COVID-19 dose #1 given elsewhere Unspecified 12/11/2020 10:0 8:00 AM EST completed eCW1 ([facility]) COVID-19 dose #1 given elsewhere Unspecified 12/11/2020 10:0 8:00 AM EST completed eCW1 ([facility]) COVID-19 dose #1 given elsewhere Unspecified 12/11/2020 10:0 8:00 AM EST completed eCW1 ([facility]) COVID-19 dose #1 given elsewhere Unspecified 12/11/2020 10:0 8:00 AM EST completed eCW1 ([facility]) COVID-19 dose #1 given elsewhere Unspecified 12/11/2020 10:0 8:00 AM EST completed eCW1 ([facility]) COVID-19 dose #1 given elsewhere Unspecified 12/11/2020 10:0 8:00 AM EST completed eCW1 ([facility]) COVID-19 dose #1 given elsewhere Unspecified 12/11/2020 10:0 8:00 AM EST completed eCW1 ([facility]) COVID-19 dose #1 given elsewhere Unspecified 12/11/2020 10:0 8:00 AM EST completed eCW1 ([facility]) COVID-19 dose #1 given elsewhere Unspecified 12/11/2020 10:0 8:00 AM EST completed eCW1 ([facility]) COVID-19 dose #1 given elsewhere Unspecified 12/11/2020 10:0 8:00 AM EST completed eCW1 ([facility]) COVID-19 dose #1 given elsewhere Unspecified 12/11/2020 10:0 8:00 AM EST completed eCW1 ([facility]) COVID-19 dose #1 given elsewhere Unspecified 12/11/2020 10:0 8:00 AM EST completed eCW1 ([facility]) COVID-19 dose #1 given elsewhere Unspecified 12/11/2020 10:0 8:00 AM EST completed eCW1 ([facility]) COVID-19 dose #1 given elsewhere Unspecified 12/11/2020 10:0 8:00 AM EST completed eCW1 ([facility]) COVID-19 dose #1 given elsewhere Unspecified 12/11/2020 10:0 8:00 AM EST completed eCW1 ([facility]) COVID-19 dose #1 given elsewhere Unspecified 12/11/2020 10:0 8:00 AM EST completed eCW1 ([facility]) COVID-19 dose #1 given elsewhere Unspecified 12/11/2020 10:0 8:00 AM EST completed eCW1 ([facility]) COVID-19 dose #1 given elsewhere Unspecified 12/11/2020 10:0 8:00 AM EST completed eCW1 ([facility]) COVID-19 dose #1 given elsewhere Unspecified 12/11/2020 10:0 8:00 AM EST completed eCW1 ([facility]) COVID-19 dose #1 given elsewhere Unspecified 12/11/2020 10:0 8:00 AM EST completed eCW1 ([facility]) COVID-19 dose #1 given elsewhere Unspecified 12/11/2020 10:0 8:00 AM EST completed eCW1 ([facility]) COVID-19 dose #1 given elsewhere Unspecified 12/11/2020 10:0 8:00 AM EST completed eCW1 ([facility]) COVID-19 dose #1 given elsewhere Unspecified 12/11/2020 10:0 8:00 AM EST completed eCW1 ([facility]) COVID-19 dose #1 given elsewhere Unspecified 12/11/2020 10:0 8:00 AM EST completed eCW1 ([facility]) COVID-19 dose #1 given elsewhere Unspecified 12/11/2020 10:0 8:00 AM EST completed eCW1 ([facility]) COVID-19 dose #1 given elsewhere Unspecified 12/11/2020 10:0 8:00 AM EST completed eCW1 ([facility]) COVID-19 dose #1 given elsewhere Unspecified 12/11/2020 10:0 8:00 AM EST completed eCW1 ([facility]) COVID-19 dose #1 given elsewhere Unspecified 12/11/2020 10:0 8:00 AM EST completed eCW1 ([facility]) COVID-19 dose #1 given elsewhere Unspecified 12/11/2020 10:0 8:00 AM EST completed eCW1 ([facility]) COVID-19 dose #1 given elsewhere Unspecified 12/11/2020 10:0 8:00 AM EST completed eCW1 ([facility]) COVID-19 dose #1 given elsewhere Unspecified 12/11/2020 10:0 8:00 AM EST completed eCW1 ([facility]) COVID-19 VACCINE Moderna 12/10/2020 12:00:00 AM EST completed [employer] Vaccine Series Complete: NOThis Data was Submitted to [facility] Via [employer]. influenza, recombinant, quadrIvalent,injectable, prese rvative free 11/20/2020 01:35:00 PM EST completed eCW1 ([facility]) influenza, recombinant, quadrIvalent,injectable, prese rvative free 11/20/2020 01:35:00 PM EST completed eCW1 ([facility]) influenza, recombinant, quadrIvalent,injectable, prese rvative free 11/20/2020 01:35:00 PM EST completed eCW1 ([facility]) influenza, recombinant, quadrIvalent,injectable, prese rvative free 11/20/2020 01:35:00 PM EST completed eCW1 ([facility]) influenza, recombinant, quadrIvalent,injectable, prese rvative free 11/20/2020 01:35:00 PM EST completed eCW1 ([facility]) influenza, recombinant, quadrIvalent,injectable, prese rvative free 11/20/2020 01:35:00 PM EST completed eCW1 ([facility]) influenza, recombinant, quadrIvalent,injectable, prese rvative free 11/20/2020 01:35:00 PM EST completed eCW1 ([facility]) influenza, recombinant, quadrIvalent,injectable, prese rvative free 11/20/2020 01:35:00 PM EST completed eCW1 ([facility]) influenza, recombinant, quadrIvalent,injectable, prese rvative free 11/20/2020 01:35:00 PM EST completed eCW1 ([facility]) influenza, recombinant, quadrIvalent,injectable, prese rvative free 11/20/2020 01:35:00 PM EST completed eCW1 ([facility]) influenza, recombinant, quadrIvalent,injectable, prese rvative free 11/20/2020 01:35:00 PM EST completed eCW1 ([facility]) influenza, recombinant, quadrIvalent,injectable, prese rvative free 11/20/2020 01:35:00 PM EST completed eCW1 ([facility]) influenza, recombinant, quadrIvalent,injectable, prese rvative free 11/20/2020 01:35:00 PM EST completed eCW1 ([facility]) influenza, recombinant, quadrIvalent,injectable, prese rvative free 11/20/2020 01:35:00 PM EST completed eCW1 ([facility]) influenza, recombinant, quadrIvalent,injectable, prese rvative free 11/20/2020 01:35:00 PM EST completed eCW1 ([facility]) influenza, recombinant, quadrIvalent,injectable, prese rvative free 11/20/2020 01:35:00 PM EST completed eCW1 ([facility]) influenza, recombinant, quadrIvalent,injectable, prese rvative free 11/20/2020 01:35:00 PM EST completed eCW1 ([facility]) influenza, recombinant, quadrIvalent,injectable, prese rvative free 11/20/2020 01:35:00 PM EST completed eCW1 ([facility]) influenza, recombinant, quadrIvalent,injectable, prese rvative free 11/20/2020 01:35:00 PM EST completed eCW1 ([facility]) influenza, recombinant, quadrIvalent,injectable, prese rvative free 11/20/2020 01:35:00 PM EST completed eCW1 ([facility]) influenza, recombinant, quadrIvalent,injectable, prese rvative free 11/20/2020 01:35:00 PM EST completed eCW1 ([facility]) influenza, recombinant, quadrIvalent,injectable, prese rvative free 11/20/2020 01:35:00 PM EST completed eCW1 ([facility]) influenza, recombinant, quadrIvalent,injectable, prese rvative free 11/20/2020 01:35:00 PM EST completed eCW1 ([facility]) influenza, recombinant, quadrIvalent,injectable, prese rvative free 11/20/2020 01:35:00 PM EST completed eCW1 ([facility]) influenza, recombinant, quadrIvalent,injectable, prese rvative free 11/20/2020 01:35:00 PM EST completed eCW1 ([facility]) influenza, recombinant, quadrIvalent,injectable, prese rvative free 11/20/2020 01:35:00 PM EST completed eCW1 ([facility]) influenza, recombinant, quadrIvalent,injectable, prese rvative free 11/20/2020 01:35:00 PM EST completed eCW1 ([facility]) influenza, recombinant, quadrIvalent,injectable, prese rvative free 11/20/2020 01:35:00 PM EST completed eCW1 ([facility]) influenza, recombinant, quadrIvalent,injectable, prese rvative free 11/20/2020 01:35:00 PM EST completed eCW1 ([facility]) influenza, recombinant, quadrIvalent,injectable, prese rvative free 11/20/2020 01:35:00 PM EST completed eCW1 ([facility]) influenza, recombinant, quadrIvalent,injectable, prese rvative free 11/20/2020 01:35:00 PM EST completed eCW1 ([facility]) influenza, recombinant, quadrIvalent,injectable, prese rvative free 11/20/2020 01:35:00 PM EST completed eCW1 ([facility]) influenza, recombinant, quadrIvalent,injectable, prese rvative free 11/20/2020 01:35:00 PM EST completed eCW1 ([facility]) influenza, recombinant, quadrIvalent,injectable, prese rvative free 11/20/2020 01:35:00 PM EST completed eCW1 ([facility]) influenza, recombinant, quadrIvalent,injectable, prese rvative free 11/20/2020 01:35:00 PM EST completed eCW1 ([facility]) influenza, recombinant, quadrIvalent,injectable, prese rvative free 11/20/2020 01:35:00 PM EST completed eCW1 ([facility]) influenza, recombinant, quadrIvalent,injectable, prese rvative free 11/20/2020 01:35:00 PM EST completed eCW1 ([facility]) influenza, recombinant, quadrIvalent,injectable, prese rvative free 11/20/2020 01:35:00 PM EST completed eCW1 ([facility]) influenza, recombinant, quadrIvalent,injectable, prese rvative free 11/20/2020 01:35:00 PM EST completed eCW1 ([facility]) influenza, recombinant, quadrIvalent,injectable, prese rvative free 11/20/2020 01:35:00 PM EST completed eCW1 ([facility]) influenza, recombinant, quadrIvalent,injectable, prese rvative free 11/20/2020 01:35:00 PM EST completed eCW1 ([facility]) influenza, recombinant, quadrIvalent,injectable, prese rvative free 11/20/2020 01:35:00 PM EST completed eCW1 ([facility]) influenza, recombinant, quadrIvalent,injectable, prese rvative free 11/20/2020 01:35:00 PM EST completed eCW1 ([facility]) influenza, recombinant, quadrIvalent,injectable, prese rvative free 11/20/2020 01:35:00 PM EST completed eCW1 ([facility]) influenza, recombinant, quadrIvalent,injectable, prese rvative free 11/20/2020 01:35:00 PM EST completed eCW1 ([facility]) influenza, recombinant, quadrIvalent,injectable, prese rvative free 11/20/2020 01:35:00 PM EST completed eCW1 ([facility]) influenza, recombinant, quadrIvalent,injectable, prese rvative free 11/20/2020 01:35:00 PM EST completed eCW1 ([facility]) influenza, recombinant, quadrIvalent,injectable, prese rvative free 11/20/2020 01:35:00 PM EST completed eCW1 ([facility]) influenza, recombinant, quadrIvalent,injectable, prese rvative free 11/20/2020 01:35:00 PM EST completed eCW1 ([facility]) influenza, recombinant, quadrIvalent,injectable, prese rvative free 11/20/2020 01:35:00 PM EST completed eCW1 ([facility]) influenza, recombinant, quadrIvalent,injectable, prese rvative free 11/20/2020 01:35:00 PM EST completed eCW1 ([facility]) influenza, recombinant, quadrIvalent,injectable, prese rvative free 11/20/2020 01:35:00 PM EST completed eCW1 ([facility]) influenza, recombinant, quadrIvalent,injectable, prese rvative free 11/20/2020 01:35:00 PM EST completed eCW1 ([facility]) influenza, recombinant, quadrIvalent,injectable, prese rvative free 11/20/2020 01:35:00 PM EST completed eCW1 ([facility]) influenza, recombinant, quadrIvalent,injectable, prese rvative free 11/20/2020 01:35:00 PM EST completed eCW1 ([facility]) influenza, recombinant, quadrIvalent,injectable, prese rvative free 11/20/2020 01:35:00 PM EST completed eCW1 ([facility]) influenza, recombinant, quadrIvalent,injectable, prese rvative free 11/20/2020 01:35:00 PM EST completed eCW1 ([facility]) influenza, recombinant, quadrIvalent,injectable, prese rvative free 11/20/2020 01:35:00 PM EST completed eCW1 ([facility]) influenza, recombinant, quadrIvalent,injectable, prese rvative free 11/20/2020 01:35:00 PM EST completed eCW1 ([facility]) influenza, recombinant, quadrIvalent,injectable, prese rvative free 11/20/2020 01:35:00 PM EST completed eCW1 ([facility]) influenza, recombinant, quadrIvalent,injectable, prese rvative free 11/20/2020 01:35:00 PM EST completed eCW1 ([facility]) influenza, recombinant, quadrIvalent,injectable, prese rvative free 11/20/2020 01:35:00 PM EST completed eCW1 ([facility]) influenza, recombinant, quadrIvalent,injectable, prese rvative free 11/20/2020 01:35:00 PM EST completed eCW1 ([facility]) influenza, recombinant, quadrIvalent,injectable, prese rvative free 11/20/2020 01:35:00 PM EST completed eCW1 ([facility]) influenza, recombinant, quadrIvalent,injectable, prese rvative free 11/20/2020 01:35:00 PM EST completed eCW1 ([facility]) influenza, recombinant, quadrIvalent,injectable, prese rvative free 11/20/2020 01:35:00 PM EST completed eCW1 ([facility]) influenza, recombinant, quadrIvalent,injectable, prese rvative free 11/20/2020 01:35:00 PM EST completed eCW1 ([facility]) influenza, recombinant, quadrIvalent,injectable, prese rvative free 11/20/2020 01:35:00 PM EST completed eCW1 ([facility]) influenza, recombinant, quadrIvalent,injectable, prese rvative free 11/20/2020 01:35:00 PM EST completed eCW1 ([facility]) influenza, recombinant, quadrIvalent,injectable, prese rvative free 11/20/2020 01:35:00 PM EST completed eCW1 ([facility]) influenza, recombinant, quadrIvalent,injectable, prese rvative free 11/20/2020 01:35:00 PM EST completed eCW1 ([facility]) influenza, recombinant, quadrIvalent,injectable, prese rvative free 11/20/2020 01:35:00 PM EST completed eCW1 ([facility]) influenza, recombinant, quadrIvalent,injectable, prese rvative free 11/20/2020 01:35:00 PM EST completed eCW1 ([facility]) influenza, recombinant, quadrIvalent,injectable, prese rvative free 11/20/2020 01:35:00 PM EST completed eCW1 ([facility]) influenza, recombinant, quadrIvalent,injectable, prese rvative free 11/20/2020 01:35:00 PM EST completed eCW1 ([facility]) influenza, recombinant, quadrIvalent,injectable, prese rvative free 11/20/2020 01:35:00 PM EST completed eCW1 ([facility]) Medications Medication Brand Name Start Date Product Form Dose Route Admi nistrative Instructions Pharmacy Instructions Status Indications Reaction Description Data Source(s) May Use - UNK 09/03/2021 12:00:00 AM EST active [facility] May Use - UNK 09/03/2021 12:00:00 AM EST active May Use - eCW1 [facility]) May Use - UNK 09/03/2021 12:00:00 AM EST active May Use - eCW1 [facility]) May Use - UNK 09/03/2021 12:00:00 AM EST active May Use - eCW1 [facility]) May Use - UNK 09/03/2021 12:00:00 AM EST active May Use - eCW1 [facility]) May Use - UNK 09/03/2021 12:00:00 AM EST active May Use - eCW1 [facility]) May Use - UNK 09/03/2021 12:00:00 AM EST active May Use - eCW1 [facility]) May Use - UNK 09/03/2021 12:00:00 AM EST active May Use - eCW1 ([facility]) Prednisone 10 MG Oral Tablet Prednisone 08/05/2021 12:00:00 AM EDT active [facility] ([facility] Hydroxyzine Hydrochloride 25 MG Oral Tablet hydrOXYzin e HCl 25 MG hydrOXYzine HCl 25 MG 07/22/2021 12:00:00 AM EDT 1.0 {tablet} ac tive hydrOXYzine HCl 25 MG eCW1 ([facility]) Hydroxyzine Hydrochloride 25 MG Oral Tablet hydrOXYzin e HCl 25 MG hydrOXYzine HCl 25 MG 07/22/2021 12:00:00 AM EDT 1.0 {tablet} active eCW1 ([facility]) Hydroxyzine Hydrochloride 25 MG Oral Tablet hydrOXYzin e HCl 25 MG hydrOXYzine HCl 25 MG 07/22/2021 12:00:00 AM EDT 1.0 {tablet} ac tive hydrOXYzine HCl 25 MG eCW1 ([facility]) Hydroxyzine Hydrochloride 25 MG Oral Tablet hydrOXYzin e HCl 25 MG hydrOXYzine HCl 25 MG 07/22/2021 12:00:00 AM EDT 1.0 {tablet} ac tive hydrOXYzine HCl 25 MG eCW1 ([facility]) Hydroxyzine Hydrochloride 25 MG Oral Tablet hydrOXYzin e HCl 25 MG hydrOXYzine HCl 25 MG 07/22/2021 12:00:00 AM EDT 1.0 {tablet} ac tive hydrOXYzine HCl 25 MG eCW1 ([facility]) Hydroxyzine Hydrochloride 25 MG Oral Tablet hydrOXYzin e HCl 25 MG hydrOXYzine HCl 25 MG 07/22/2021 12:00:00 AM EDT 1.0 {tablet} ac tive hydrOXYzine HCl 25 MG eCW1 ([facility]) Hydroxyzine Hydrochloride 25 MG Oral Tablet hydrOXYzin e HCl 25 MG hydrOXYzine HCl 25 MG 07/22/2021 12:00:00 AM EDT 1.0 {tablet} active eCW1 ([facility]) Hydroxyzine Hydrochloride 25 MG Oral Tablet hydrOXYzin e HCl 25 MG hydrOXYzine HCl 25 MG 07/22/2021 12:00:00 AM EDT 1.0 {tablet} ac tive hydrOXYzine HCl 25 MG eCW1 ([facility]) Hydroxyzine Hydrochloride 25 MG Oral Tablet hydrOXYzin e HCl 25 MG hydrOXYzine HCl 25 MG 07/22/2021 12:00:00 AM EDT 1.0 {tablet} ac tive hydrOXYzine HCl 25 MG eCW1 ([facility]) Hydroxyzine Hydrochloride 25 MG Oral Tablet hydrOXYzin e HCl 25 MG hydrOXYzine HCl 25 MG 07/22/2021 12:00:00 AM EDT 1.0 {tablet} ac tive hydrOXYzine HCl 25 MG eCW1 ([facility]) Hydroxyzine Hydrochloride 25 MG Oral Tablet hydrOXYzin e HCl 25 MG hydrOXYzine HCl 25 MG 07/22/2021 12:00:00 AM EDT 1.0 {tablet} ac tive hydrOXYzine HCl 25 MG eCW1 ([facility]) Hydroxyzine Hydrochloride 25 MG Oral Tablet hydrOXYzin e HCl 25 MG hydrOXYzine HCl 25 MG 07/22/2021 12:00:00 AM EDT 1.0 {tablet} ac tive hydrOXYzine HCl 25 MG eCW1 ([facility]) Betamethasone 0.5 MG/ML Topical Cream Betamethasone Di propionate 0.05 % Betamethasone Dipropionate 0.05 % 06/28/2021 12:00:00 AM EDT 1.0 {application} active Betamethasone Dipropiona te 0.05 % [facility]CW1 ([facility]) Betamethasone 0.5 MG/ML Topical Cream Betamethasone Di propionate 0.05 % Betamethasone Dipropionate 0.05 % 06/28/2021 12:00:00 AM EDT 1.0 {application} active Betamethasone Dipropiona te 0.05 % eCW1 ([facility]) Betamethasone 0.5 MG/ML Topical Cream Betamethasone Di propionate 0.05 % Betamethasone Dipropionate 0.05 % 06/28/2021 12:00:00 AM EDT 1.0 {application} active Betamethasone Dipropiona te 0.05 % eCW1 ([facility]) Betamethasone 0.5 MG/ML Topical Cream Betamethasone Di propionate 0.05 % Betamethasone Dipropionate 0.05 % 06/28/2021 12:00:00 AM EDT 1.0 {application} active Betamethasone Dipropiona te 0.05 % eCW1 ([facility]) Betamethasone 0.5 MG/ML Topical Cream Betamethasone Di propionate 0.05 % Betamethasone Dipropionate 0.05 % 06/28/2021 12:00:00 AM EDT 1.0 {application} active Betamethasone Dipropiona te 0.05 % eCW1 ([facility]) meloxicam 15 MG Oral Tablet Meloxicam 06/21/2021 12:00:00 AM EDT ORAL active [facility] ([facility]) Inject Triamcinolone Acetonide 10 ML, [facility] [id number] 06/04/2021 12:00:00 AM EDT completed [facility] ([facility] Medication administered onsite Inject Dexamthosone Phosphate 11058-084-52 06/04/2021 12:00:00 A M EDT completed [facility] ([facility] Medication administered onsite Triamcinolone Acetonide 1 MG/ML Topical Cream Triamcin olone Acetonide 0.1 % Triamcinolone Acetonide 0.1 % 05/16/2021 12:00:00 AM EDT 1.0 {appli cation} active Triamcinolone Acetonide 0 .1 % [facility]CW[facility] ([facility]) Triamcinolone Acetonide 1 MG/ML Topical Cream Triamcin olone Acetonide 0.1 % Triamcinolone Acetonide 0.1 % 05/16/2021 12:00:00 AM EDT 1.0 {appli cation} active eCW1 ([facility]) Triamcinolone Acetonide 1 MG/ML Topical Cream Triamcin olone Acetonide 0.1 % Triamcinolone Acetonide 0.1 % 05/16/2021 12:00:00 AM EDT 1.0 {appli cation} active Triamcinolone Acetonide 0 .1 % [facility] Triamcinolone Acetonide 1 MG/ML Topical Cream Triamcin olone Acetonide 0.1 % Triamcinolone Acetonide 0.1 % 05/16/2021 12:00:00 AM EDT 1.0 {appli cation} active Triamcinolone Acetonide 0 .1 % [facility] Triamcinolone Acetonide 1 MG/ML Topical Cream Triamcin olone Acetonide 0.1 % Triamcinolone Acetonide 0.1 % 05/16/2021 12:00:00 AM EDT 1.0 {appli cation} active Triamcinolone Acetonide 0 .1 % [facility] Triamcinolone Acetonide 1 MG/ML Topical Cream Triamcin olone Acetonide 0.1 % Triamcinolone Acetonide 0.1 % 05/16/2021 12:00:00 AM EDT 1.0 {appli cation} active Triamcinolone Acetonide 0 .1 % [facility] Triamcinolone Acetonide 1 MG/ML Topical Cream Triamcin olone Acetonide 0.1 % Triamcinolone Acetonide 0.1 % 05/16/2021 12:00:00 AM EDT 1.0 {appli cation} active Triamcinolone Acetonide 0 .1 % [facility] Triamcinolone Acetonide 1 MG/ML Topical Cream Triamcin olone Acetonide 0.1 % Triamcinolone Acetonide 0.1 % 05/16/2021 12:00:00 AM EDT 1.0 {appli cation} active Triamcinolone Acetonide 0 .1 % [facility] Triamcinolone Acetonide 1 MG/ML Topical Cream Triamcin olone Acetonide 0.1 % Triamcinolone Acetonide 0.1 % 05/16/2021 12:00:00 AM EDT 1.0 {appli cation} active Triamcinolone Acetonide 0 .1 % [facility]) Triamcinolone Acetonide 1 MG/ML Topical Cream Triamcin olone Acetonide 0.1 % Triamcinolone Acetonide 0.1 % 05/16/2021 12:00:00 AM EDT 1.0 {appli cation} active Triamcinolone Acetonide 0 .1 % [facility]) Triamcinolone Acetonide 1 MG/ML Topical Cream Triamcin olone Acetonide 0.1 % Triamcinolone Acetonide 0.1 % 05/16/2021 12:00:00 AM EDT 1.0 {appli cation} active Triamcinolone Acetonide 0 .1 % [facility]CW[facility]) Triamcinolone Acetonide 1 MG/ML Topical Cream Triamcin olone Acetonide 0.1 % Triamcinolone Acetonide 0.1 % 05/16/2021 12:00:00 AM EDT 1.0 {appli cation} active Triamcinolone Acetonide 0 .1 % [facility]) Triamcinolone Acetonide 1 MG/ML Topical Cream Triamcin olone Acetonide 0.1 % Triamcinolone Acetonide 0.1 % 05/16/2021 12:00:00 AM EDT 1.0 {appli cation} active Triamcinolone Acetonide 0 .1 % [facility]CW[facility]) Triamcinolone Acetonide 1 MG/ML Topical Cream Triamcin olone Acetonide 0.1 % Triamcinolone Acetonide 0.1 % 05/16/2021 12:00:00 AM EDT 1.0 {appli cation} active Triamcinolone Acetonide 0 .1 % [facility]CW1 [facility]) Triamcinolone Acetonide 1 MG/ML Topical Cream Triamcin olone Acetonide 0.1 % Triamcinolone Acetonide 0.1 % 05/16/2021 12:00:00 AM EDT 1.0 {appli cation} active Triamcinolone Acetonide 0 .1 % [facility]CW[facility]) Triamcinolone Acetonide 1 MG/ML Topical Cream Triamcin olone Acetonide 0.1 % Triamcinolone Acetonide 0.1 % 05/16/2021 12:00:00 AM EDT 1.0 {appli cation} active Triamcinolone Acetonide 0 .1 % [facility]CW[facility]) Triamcinolone Acetonide 1 MG/ML Topical Cream Triamcin olone Acetonide 0.1 % Triamcinolone Acetonide 0.1 % 05/16/2021 12:00:00 AM EDT 1.0 {appli cation} active Triamcinolone Acetonide 0 .1 % [facility]CW[facility]) Triamcinolone Acetonide 1 MG/ML Topical Cream Triamcin olone Acetonide 0.1 % Triamcinolone Acetonide 0.1 % 05/16/2021 12:00:00 AM EDT 1.0 {appli cation} active Triamcinolone Acetonide 0 .1 % [facility]CW1 [facility]) Triamcinolone Acetonide 1 MG/ML Topical Cream Triamcin olone Acetonide 0.1 % Triamcinolone Acetonide 0.1 % 05/16/2021 12:00:00 AM EDT 1.0 {appli cation} active Triamcinolone Acetonide 0 .1 % [facility]CW[facility]) Triamcinolone Acetonide 1 MG/ML Topical Cream Triamcin olone Acetonide 0.1 % Triamcinolone Acetonide 0.1 % 05/16/2021 12:00:00 AM EDT 1.0 {appli cation} active Triamcinolone Acetonide 0 .1 % [facility]CW1 [facility]) Triamcinolone Acetonide 1 MG/ML Topical Cream Triamcin olone Acetonide 0.1 % Triamcinolone Acetonide 0.1 % 05/16/2021 12:00:00 AM EDT 1.0 {appli cation} active eCW1 ([facility]) Triamcinolone Acetonide 1 MG/ML Topical Cream Triamcin olone Acetonide 0.1 % Triamcinolone Acetonide 0.1 % 05/16/2021 12:00:00 AM EDT 1.0 {appli cation} active Triamcinolone Acetonide 0 .1 % [facility]CW1 [facility]) Triamcinolone Acetonide 1 MG/ML Topical Cream Triamcin olone Acetonide 0.1 % Triamcinolone Acetonide 0.1 % 05/16/2021 12:00:00 AM EDT 1.0 {appli cation} active Triamcinolone Acetonide 0 .1 % [facility]CW1 [facility]) Triamcinolone Acetonide 1 MG/ML Topical Cream Triamcin olone Acetonide 0.1 % Triamcinolone Acetonide 0.1 % 05/16/2021 12:00:00 AM EDT 1.0 {appli cation} active Triamcinolone Acetonide 0 .1 % [facility]CW1 [facility]) Triamcinolone Acetonide 1 MG/ML Topical Cream Triamcin olone Acetonide 0.1 % Triamcinolone Acetonide 0.1 % 05/16/2021 12:00:00 AM EDT 1.0 {appli cation} active Triamcinolone Acetonide 0 .1 % [facility]CW1 [facility]) Triamcinolone Acetonide 1 MG/ML Topical Cream Triamcin olone Acetonide 0.1 % Triamcinolone Acetonide 0.1 % 05/16/2021 12:00:00 AM EDT 1.0 {appli cation} active Triamcinolone Acetonide 0 .1 % [facility]CW1 [facility] Triamcinolone Acetonide 1 MG/ML Topical Cream Triamcin olone Acetonide 0.1 % Triamcinolone Acetonide 0.1 % 05/16/2021 12:00:00 AM EDT 1.0 {appli cation} active Triamcinolone Acetonide 0 .1 % [facility]CW1 [facility]) Triamcinolone Acetonide 1 MG/ML Topical Cream Triamcin olone Acetonide 0.1 % Triamcinolone Acetonide 0.1 % 05/16/2021 12:00:00 AM EDT 1.0 {appli cation} active Triamcinolone Acetonide 0 .1 % [facility]CW1 [facility]) Triamcinolone Acetonide 1 MG/ML Topical Cream Triamcin olone Acetonide 0.1 % Triamcinolone Acetonide 0.1 % 05/16/2021 12:00:00 AM EDT 1.0 {appli cation} active Triamcinolone Acetonide 0 .1 % [facility]CW1 [facility]) Triamcinolone Acetonide 1 MG/ML Topical Cream Triamcin olone Acetonide 0.1 % Triamcinolone Acetonide 0.1 % 05/16/2021 12:00:00 AM EDT 1.0 {appli cation} active Triamcinolone Acetonide 0 .1 % [facility]CW[facility]) Ondansetron 8 MG Oral Tablet Ondansetron HCl 8 MG Ondansetro n HCl 8 MG 05/15/2021 12:00:00 AM EDT 1.0 {tablet_as_needed} active Ondansetron HCl 8 MG eCW1 ([facility]) Ondansetron 8 MG Oral Tablet Ondansetron HCl 8 MG Ondansetro n HCl 8 MG 05/15/2021 12:00:00 AM EDT 1.0 {tablet_as_needed} active Ondansetron HCl 8 MG eCW1 ([facility]) Ondansetron 8 MG Oral Tablet Ondansetron HCl 8 MG Ondansetro n HCl 8 MG 05/15/2021 12:00:00 AM EDT 1.0 {tablet_as_needed} active Ondansetron HCl 8 MG eCW1 ([facility]) Ondansetron 8 MG Oral Tablet Ondansetron HCl 8 MG Ondansetro n HCl 8 MG 05/15/2021 12:00:00 AM EDT 1.0 {tablet_as_needed} active Ondansetron HCl 8 MG eCW1 ([facility]) Ondansetron 8 MG Oral Tablet Ondansetron HCl 8 MG Ondansetro n HCl 8 MG 05/15/2021 12:00:00 AM EDT 1.0 {tablet_as_needed} active Ondansetron HCl 8 MG eCW1 ([facility]) Ondansetron 8 MG Oral Tablet Ondansetron HCl 8 MG Ondansetro n HCl 8 MG 05/15/2021 12:00:00 AM EDT 1.0 {tablet_as_needed} active Ondansetron HCl 8 MG eCW1 ([facility]) Ondansetron 8 MG Oral Tablet Ondansetron HCl 8 MG Ondansetro n HCl 8 MG 05/15/2021 12:00:00 AM EDT 1.0 {tablet_as_needed} active Ondansetron HCl 8 MG eCW1 ([facility]) Ondansetron 8 MG Oral Tablet Ondansetron HCl 8 MG Ondansetro n HCl 8 MG 05/15/2021 12:00:00 AM EDT 1.0 {tablet_as_needed} active Ondansetron HCl 8 MG eCW1 ([facility]) Ondansetron 8 MG Oral Tablet Ondansetron HCl 8 MG Ondansetro n HCl 8 MG 05/15/2021 12:00:00 AM EDT 1.0 {tablet_as_needed} active Ondansetron HCl 8 MG eCW1 ([facility]) Ondansetron 8 MG Oral Tablet Ondansetron HCl 8 MG Ondansetro n HCl 8 MG 05/15/2021 12:00:00 AM EDT 1.0 {tablet_as_needed} active Ondansetron HCl 8 MG eCW1 ([facility]) Ondansetron 8 MG Oral Tablet Ondansetron HCl 8 MG Ondansetro n HCl 8 MG 05/15/2021 12:00:00 AM EDT 1.0 {tablet_as_needed} active Ondansetron HCl 8 MG eCW1 ([facility]) Ondansetron 8 MG Oral Tablet Ondansetron HCl 8 MG Ondansetro n HCl 8 MG 05/15/2021 12:00:00 AM EDT 1.0 {tablet_as_needed} active Ondansetron HCl 8 MG eCW1 ([facility]) Ondansetron 8 MG Oral Tablet Ondansetron HCl 8 MG Ondansetro n HCl 8 MG 05/15/2021 12:00:00 AM EDT 1.0 {tablet_as_needed} active Ondansetron HCl 8 MG eCW1 ([facility]) Ondansetron 8 MG Oral Tablet Ondansetron HCl 8 MG Ondansetro n HCl 8 MG 05/15/2021 12:00:00 AM EDT 1.0 {tablet_as_needed} active Ondansetron HCl 8 MG eCW1 ([facility]) Ondansetron 8 MG Oral Tablet Ondansetron HCl 8 MG Ondansetro n HCl 8 MG 05/15/2021 12:00:00 AM EDT 1.0 {tablet_as_needed} active Ondansetron HCl 8 MG eCW1 ([facility]) Ondansetron 8 MG Oral Tablet Ondansetron HCl 8 MG Ondansetro n HCl 8 MG 05/15/2021 12:00:00 AM EDT 1.0 {tablet_as_needed} active Ondansetron HCl 8 MG eCW1 ([facility]) Ondansetron 8 MG Oral Tablet Ondansetron HCl 8 MG Ondansetro n HCl 8 MG 05/15/2021 12:00:00 AM EDT 1.0 {tablet_as_needed} active Ondansetron HCl 8 MG eCW1 ([facility]) Ondansetron 8 MG Oral Tablet Ondansetron HCl 8 MG Ondansetro n HCl 8 MG 05/15/2021 12:00:00 AM EDT 1.0 {tablet_as_needed} active Ondansetron HCl 8 MG eCW1 ([facility]) Ondansetron 8 MG Oral Tablet Ondansetron HCl 8 MG Ondansetro n HCl 8 MG 05/15/2021 12:00:00 AM EDT 1.0 {tablet_as_needed} active Ondansetron HCl 8 MG eCW1 ([facility]) Ondansetron 8 MG Oral Tablet Ondansetron HCl 8 MG Ondansetro n HCl 8 MG 05/15/2021 12:00:00 AM EDT 1.0 {tablet_as_needed} active Ondansetron HCl 8 MG eCW1 ([facility]) Ondansetron 8 MG Oral Tablet Ondansetron HCl 8 MG Ondansetro n HCl 8 MG 05/15/2021 12:00:00 AM EDT 1.0 {tablet_as_needed} active Ondansetron HCl 8 MG eCW1 ([facility]) Ondansetron 8 MG Oral Tablet Ondansetron HCl 8 MG Ondansetro n HCl 8 MG 05/15/2021 12:00:00 AM EDT 1.0 {tablet_as_needed} active Ondansetron HCl 8 MG eCW1 ([facility]) Ondansetron 8 MG Oral Tablet Ondansetron HCl 8 MG Ondansetro n HCl 8 MG 05/15/2021 12:00:00 AM EDT 1.0 {tablet_as_needed} active Ondansetron HCl 8 MG eCW1 ([facility]) Ondansetron 8 MG Oral Tablet Ondansetron HCl 8 MG Ondansetro n HCl 8 MG 05/15/2021 12:00:00 AM EDT 1.0 {tablet_as_needed} active Ondansetron HCl 8 MG eCW1 ([facility]) Ondansetron 8 MG Oral Tablet Ondansetron HCl 8 MG Ondansetro n HCl 8 MG 05/15/2021 12:00:00 AM EDT 1.0 {tablet_as_needed} active Ondansetron HCl 8 MG eCW1 ([facility]) Ondansetron 8 MG Oral Tablet Ondansetron HCl 8 MG Ondansetro n HCl 8 MG 05/15/2021 12:00:00 AM EDT 1.0 {tablet_as_needed} active Ondansetron HCl 8 MG eCW1 ([facility]) Ondansetron 8 MG Oral Tablet Ondansetron HCl 8 MG Ondansetro n HCl 8 MG 05/15/2021 12:00:00 AM EDT 1.0 {tablet_as_needed} active Ondansetron HCl 8 MG eCW1 ([facility]) Ondansetron 8 MG Oral Tablet Ondansetron HCl 8 MG Ondansetro n HCl 8 MG 05/15/2021 12:00:00 AM EDT 1.0 {tablet_as_needed} active Ondansetron HCl 8 MG eCW1 ([facility]) Ondansetron 8 MG Oral Tablet Ondansetron HCl 8 MG Ondansetro n HCl 8 MG 05/15/2021 12:00:00 AM EDT 1.0 {tablet_as_needed} active Ondansetron HCl 8 MG eCW1 ([facility]) Ondansetron 8 MG Oral Tablet Ondansetron HCl 8 MG Ondansetro n HCl 8 MG 05/15/2021 12:00:00 AM EDT 1.0 {tablet_as_needed} ac tive eCW1 ([facility]) Ondansetron 8 MG Oral Tablet Ondansetron HCl 8 MG Ondansetro n HCl 8 MG 05/15/2021 12:00:00 AM EDT 1.0 {tablet_as_needed} ac tive eCW1 ([facility]) tramadol hydrochloride 50 MG Oral Tablet traMADol (ULT ELOY) 50 MG tablet traMADol (ULTRAM) 50 MG tablet 04/17/2021 12:00:00 AM EDT 50 mg Oral active Take 50 mg by mouth 2 (two) times a day [facility] topiramate 50 MG Oral Tablet topiramate (TOPAMAX) 50 M G tablet topiramate (TOPAMAX) 50 MG tablet 03/26/2021 12:00:00 AM EDT 50 mg Oral active Take 50 mg by mouth nightly [facility] Medrol Medrol 03/20/2021 12:00:00 AM EDT active MEDENT ([facility]) Hydrocortisone 10 MG/ML / Neomycin 3.5 M G/ML / Polymyxin B 77835 UNT/ML Otic Suspension Pwtfmhcs-Hpkjbxact-UD 3.5-16610-8 Hithcbih-Paacspewk-SB 3.5-97277-3 03/18/2021 12:00:00 AM EDT 4.0 {drops_into_affected_ear} active Kvoddjnc-Jsxxrqzmo-LP 3.5-54166-8 eCW1 ([facility]) Hydrocortisone 10 MG/ML / Neomycin 3.5 M G/ML / Polymyxin B 19333 UNT/ML Otic Suspension Trsxhbve-Tkqxuzqqa-MV 3.5-42402-2 Katchwmi-Stkmvejyb-RX 3.5-52962-1 03/18/2021 12:00:00 AM EDT 4.0 {drops_into_affected_ear} active [place]-Dosxgjngu-MU 3.5-18162-3 eCW1 ([facility]) Hydrocortisone 10 MG/ML / Neomycin 3.5 M G/ML / Polymyxin B 05678 UNT/ML Otic Suspension Axtjdcrn-Jyewxbayz-OK 3.5-91368-0 Aexkgprg-Dwotdwrps-JW 3.5-02796-8 03/18/2021 12:00:00 AM EDT 4.0 {drops_into_affected_ear} active Qnbfklnk-Iavlmxwhl-ZV 3.5-21400-2 eCW1 ([facility]) Hydrocortisone 10 MG/ML / Neomycin 3.5 M G/ML / Polymyxin B 10539 UNT/ML Otic Suspension Hpdporcc-Aizsazvay-MY 3.5-16405-0 Ldchruyy-Xbayoivfj-RW 3.5-78078-5 03/18/2021 12:00:00 AM EDT 4.0 {drops_into_affected_ear} active Olawxvyx-Mlfhooxqm-CK 3.5-30711-9 eCW1 ([facility]) Hydrocortisone 10 MG/ML / Neomycin 3.5 M G/ML / Polymyxin B 13387 UNT/ML Otic Suspension Amxtcmeb-Bbgjvshlt-QL 3.5-69162-2 Fboaaytd-Gmsawnovw-XO 3.5-90452-7 03/18/2021 12:00:00 AM EDT 4.0 {drops_into_affected_ear} active Auuuqlqf-Lgyzvoaff-SY 3.5-95513-2 eCW1 ([facility]) Hydrocortisone 10 MG/ML / Neomycin 3.5 M G/ML / Polymyxin B 51336 UNT/ML Otic Suspension Kivvjypu-Kudlnbugn-RA 3.5-26889-2 Wihsxssh-Esssykgsy-QB 3.5-89675-7 03/18/2021 12:00:00 AM EDT 4.0 {drops_into_affected_ear} active eCW1 ([facility]) Hydrocortisone 10 MG/ML / Neomycin 3.5 M G/ML / Polymyxin B 43686 UNT/ML Otic Suspension Mpclwvct-Uozahbpvz-EG 3.5-32483-4 Duvznjhy-Ekaizczir-RY 3.5-42834-5 03/18/2021 12:00:00 AM EDT 4.0 {drops_into_affected_ear} active Cutcfahi-Bbjhdwsqi-NR 3.582951-0 eCW1 ([facility]) Hydrocortisone 10 MG/ML / Neomycin 3.5 M G/ML / Polymyxin B 66918 UNT/ML Otic Suspension Ngodpmkv-Thuepyiqk-KV 3.5-49160-9 Tgxobbtf-Zswphxmts-XO 3.5-91179-0 03/18/2021 12:00:00 AM EDT 4.0 {drops_into_affected_ear} active Ecmgrpbq-Brhhqfhdr-IG 3.5-55109-8 eCW1 ([facility]) Hydrocortisone 10 MG/ML / Neomycin 3.5 M G/ML / Polymyxin B 54563 UNT/ML Otic Suspension Tjjccmui-Ucagevzyp-JS 3.5-03625-2 Hqyklzpi-Lypqbyvao-YP 3.5-83602-5 03/18/2021 12:00:00 AM EDT 4.0 {drops_into_affected_ear} active Etyyiddk-Dfnwxpmda-VK 3.5-65541-4 eCW1 ([facility]) Hydrocortisone 10 MG/ML / Neomycin 3.5 M G/ML / Polymyxin B 86641 UNT/ML Otic Suspension Mxnhyctj-Eltatiujq-HL 3.5-85790-9 Jiotnzfa-Xcckxyhep-OV 3.5-85149-5 03/18/2021 12:00:00 AM EDT 4.0 {drops_into_affected_ear} active Lhlxxvif-Yplbxfovl-OL 3.547010-8 eCW1 ([facility] Hydrocortisone 10 MG/ML / Neomycin 3.5 M G/ML / Polymyxin B 67204 UNT/ML Otic Suspension Qizjxpxn-Deyedkkos-QB 3.586219-1 Brvepypk-Vnhqfydou-WV 3.5-02720-3 03/18/2021 12:00:00 AM EDT 4.0 {drops_into_affected_ear} active Xdjycxzp-Xcqroozjx-MD 3.503972-1 eCW1 ([facility]) Hydrocortisone 10 MG/ML / Neomycin 3.5 M G/ML / Polymyxin B 83172 UNT/ML Otic Suspension Nrzqyzhd-Pegsnpmgr-KB 3.564273-1 Kfjcbtgp-Swodctjlh-CI 3.550171-4 03/18/2021 12:00:00 AM EDT 4.0 {drops_into_affected_ear} active [place]-Otyufjktj-QP 3.503680-8 eCW1 [facility]) Hydrocortisone 10 MG/ML / Neomycin 3.5 M G/ML / Polymyxin B 58455 UNT/ML Otic Suspension Xetbxuky-Lbdqwicap-VV 3.539572-5 Lgphxeyc-Lwwhwwlwb-BR 3.536765-8 03/18/2021 12:00:00 AM EDT 4.0 {drops_into_affected_ear} active Zbczxgbt-Fjrcynajz-JQ 3.577298-1 eCW1 ([facility]) Hydrocortisone 10 MG/ML / Neomycin 3.5 M G/ML / Polymyxin B 26250 UNT/ML Otic Suspension Nlghcjir-Qmlwjwclx-FE 3.5-92090-1 Ikxexmmt-Vbbatjkne-SP 3.5-92121-3 03/18/2021 12:00:00 AM EDT 4.0 {drops_into_affected_ear} active Wljvcdbe-Vxhgboiwh-GA 3.506212-9 eCW1 ([facility]) Hydrocortisone 10 MG/ML / Neomycin 3.5 M G/ML / Polymyxin B 60632 UNT/ML Otic Suspension Dlnhulcw-Qmesqzasv-DR 3.5-78467-4 Frnasvds-Ospnyhabo-YQ 3.5-76773-9 03/18/2021 12:00:00 AM EDT 4.0 {drops_into_affected_ear} active Urqvalvk-Xcqpsqrag-SW 3.5-75180-0 eCW1 ([facility]) Hydrocortisone 10 MG/ML / Neomycin 3.5 M G/ML / Polymyxin B 73000 UNT/ML Otic Suspension Vkiqxyis-Pqxwwbfpz-CN 3.5-79955-6 Lwryrkms-Clclbplda-NX 3.5-45566-9 03/18/2021 12:00:00 AM EDT 4.0 {drops_into_affected_ear} active Asknmhwu-Yfzyimmbg-AQ 3.577648-7 eCW1 ([facility]) Hydrocortisone 10 MG/ML / Neomycin 3.5 M G/ML / Polymyxin B 96581 UNT/ML Otic Suspension Gakigbgt-Benjblilc-WP 3.587145-6 Enlmmosz-Laafowkwu-CG 3.5-80404-2 03/18/2021 12:00:00 AM EDT 4.0 {drops_into_affected_ear} active Ebggmoms-Iuirfuxxk-CZ 3.558442-5 eCW1 ([facility]) Hydrocortisone 10 MG/ML / Neomycin 3.5 M G/ML / Polymyxin B 14910 UNT/ML Otic Suspension Yzhjgmga-Ktcoqvzhv-AB 3.5-83646-8 Jrnprnfg-Zhjwvbyob-RJ 3.5-02599-7 03/18/2021 12:00:00 AM EDT 4.0 {drops_into_affected_ear} active Mxrmpvjx-Vkpjirjeh-VW 3.5-89392-5 eCW1 ([facility]) Hydrocortisone 10 MG/ML / Neomycin 3.5 M G/ML / Polymyxin B 99958 UNT/ML Otic Suspension Exezxcjx-Kmysyjdpq-YD 3.5-43660-5 Sugkpjlk-Gtohcsvms-SG 3.5-54811-4 03/18/2021 12:00:00 AM EDT 4.0 {drops_into_affected_ear} active Bfcrmofm-Kyjhqtwpv-RD 3.5-82635-3 eCW1 ([facility]) Hydrocortisone 10 MG/ML / Neomycin 3.5 M G/ML / Polymyxin B 27983 UNT/ML Otic Suspension Titpfqyw-Xbqrdeniy-CU 3.5-95404-6 Fornycja-Tkznwdtty-BL 3.5-08833-5 03/18/2021 12:00:00 AM EDT 4.0 {drops_into_affected_ear} active Ghvxrwns-Ptumtyoem-RM 3.590535-1 eCW1 ([facility]) Hydrocortisone 10 MG/ML / Neomycin 3.5 M G/ML / Polymyxin B 79874 UNT/ML Otic Suspension Damfazth-Rbwlgrrml-OH 3.547434-6 Mrinkcnl-Hqfbwnzpj-XQ 3.5-87571-9 03/18/2021 12:00:00 AM EDT 4.0 {drops_into_affected_ear} active Pbfmpnqx-Rwfmdegnd-JF 3.531364-5 eCW1 ([facility] Hydrocortisone 10 MG/ML / Neomycin 3.5 M G/ML / Polymyxin B 71177 UNT/ML Otic Suspension Fxcmqmwf-Vcylzcjke-KL 3.574014-2 Pqelvyey-Ocuydtqxm-HZ 3.508631-4 03/18/2021 12:00:00 AM EDT 4.0 {drops_into_affected_ear} active Dpbeagtz-Cnblypmnc-YG 3.586834-5 eCW1 ([facility]) Hydrocortisone 10 MG/ML / Neomycin 3.5 M G/ML / Polymyxin B 42287 UNT/ML Otic Suspension fwxgsuxp-igaoicuyw-ptdepufamksxlp (CORTISPORIN) 3.5-85701-6 otic suspension qtpolqmm-krbjshrkx-tjivnqmluxhshp (CORTI SPORIN) 3.5-12414-2 otic suspension 03/18/2021 12:00:00 AM EDT 4 [drp] active Administer 4 drops into both ears 3 (three) times a day [facility] Hydrocortisone 10 MG/ML / Neomycin 3.5 M G/ML / Polymyxin B 54518 UNT/ML Otic Suspension Sqsvzlpj-Qwgbppgvn-IT 3.5-83544-3 Tfuftuts-Vyspsnire-AV 3.5-80899-7 03/18/2021 12:00:00 AM EDT 4.0 {drops_into_affected_ear} active [facility]CW1 [facility]) Hydrocortisone 10 MG/ML / Neomycin 3.5 M G/ML / Polymyxin B 81118 UNT/ML Otic Suspension Spdguqha-Nfjwhnhnj-EX 3.5-12534-6 Xtbfrqca-Lmscudmqp-CH 3.5-11545-5 03/18/2021 12:00:00 AM EDT 4.0 {drops_into_affected_ear} active Qgyoneap-Yrcxavaiu-AX 3.5-02609-0 eCW1 ([facility]) Hydrocortisone 10 MG/ML / Neomycin 3.5 M G/ML / Polymyxin B 95332 UNT/ML Otic Suspension Ojmxnczw-Eaviqkvtv-RE 3.5-57625-0 Pntmrgob-Lpbjwmynl-ZP 3.5-67942-2 03/18/2021 12:00:00 AM EDT 4.0 {drops_into_affected_ear} active Wvajeauh-Omszdzqtj-TY 3.524546-2 [facility]) Hydrocortisone 10 MG/ML / Neomycin 3.5 M G/ML / Polymyxin B 56894 UNT/ML Otic Suspension Ekebpnbm-Enhmzufze-EX 3.5-19696-3 Tgqphnhj-Blqhqxmpn-AQ 3.5-65743-3 03/18/2021 12:00:00 AM EDT 4.0 {drops_into_affected_ear} active Scdamejz-Cflnrxtch-AI 3.545812-2 [facility]) Hydrocortisone 10 MG/ML / Neomycin 3.5 M G/ML / Polymyxin B 79930 UNT/ML Otic Suspension Rsgsfucl-Nrzbhxygh-BF 3.5-66245-8 Bbgwaqwt-Hpclhvwbm-YM 3.5-30125-2 03/18/2021 12:00:00 AM EDT 4.0 {drops_into_affected_ear} active Ritwszbo-Vqgiempes-DY 3.5-08815-3 [facility]) Hydrocortisone 10 MG/ML / Neomycin 3.5 M G/ML / Polymyxin B 02052 UNT/ML Otic Suspension Gaphcyoj-Tnkqenlse-QX 3.5-31934-3 Eqczwfxk-Xtsczofkr-QF 3.5-43023-9 03/18/2021 12:00:00 AM EDT 4.0 {drops_into_affected_ear} active Bckcqzjc-Efrfluknz-TT 3.5-67494-3 [facility] ([facility]) Hydrocortisone 10 MG/ML / Neomycin 3.5 M G/ML / Polymyxin B 45458 UNT/ML Otic Suspension Ubtzabbn-Rhdlzsdhv-NP 3.5-38362-8 Tyomyuxj-Mhueriicf-QX 3.5-95803-5 03/18/2021 12:00:00 AM EDT 4.0 {drops_into_affected_ear} active Eovhvoua-Eldzqhdlo-HG 3.551061-6 [facility] ([facility]) Hydrocortisone 10 MG/ML / Neomycin 3.5 M G/ML / Polymyxin B 09129 UNT/ML Otic Suspension Qybmeahg-Zphpmoohu-BA 3.511977-3 Jmwxrnkf-Oqdutzsbl-EF 3.5-95362-9 03/18/2021 12:00:00 AM EDT 4.0 {drops_into_affected_ear} active Epslpkbz-Saanpeqpv-PB 3.516268-8 [facility] ([facility]) Hydrocortisone 10 MG/ML / Neomycin 3.5 M G/ML / Polymyxin B 29913 UNT/ML Otic Suspension Krzsamim-Fupbtpmvb-VT 3.554078-9 Lyssnhzh-Axbfnrhbz-UW 3.508446-1 03/18/2021 12:00:00 AM EDT 4.0 {drops_into_affected_ear} active Yfpjbfyg-Hyjxkphmt-SW 3.519996-7 [facility] ([facility]) Hydrocortisone 10 MG/ML / Neomycin 3.5 M G/ML / Polymyxin B 72198 UNT/ML Otic Suspension Vpojrhbe-Thwjrrozt-VI 3.506247-7 Jyainies-Kvalzckvy-HT 3.5-98805-1 03/18/2021 12:00:00 AM EDT 4.0 {drops_into_affected_ear} active Sihelqai-Hmkdnguaq-HV 3.552979-6 [facility]) Hydrocortisone 10 MG/ML / Neomycin 3.5 M G/ML / Polymyxin B 86866 UNT/ML Otic Suspension Ertvaxhe-Roneaohrm-PX 3.5-25804-3 Xyrcafad-Mhjualcfe-HG 3.5-47517-9 03/18/2021 12:00:00 AM EDT 4.0 {drops_into_affected_ear} active Qrozmymw-Thwcybqmw-MJ 3.5-65343-5 [facility] ([facility]) Hydrocortisone 10 MG/ML / Neomycin 3.5 M G/ML / Polymyxin B 79738 UNT/ML Otic Suspension Stboqcom-Tisvjhygo-TB 3.5-62165-6 Barskate-Hlzwzkqof-AQ 3.5-56173-8 03/18/2021 12:00:00 AM EDT 4.0 {drops_into_affected_ear} active Ricdgdpc-Yxxynifks-WT 3.592796-9 [facility] ([facility]) Hydrocortisone 10 MG/ML / Neomycin 3.5 M G/ML / Polymyxin B 20263 UNT/ML Otic Suspension Hesjzmnw-Ehppouzfm-GN 3.568923-6 Zjmxoqik-Irsqsiixs-CF 3.5-83083-0 03/18/2021 12:00:00 AM EDT 4.0 {drops_into_affected_ear} active Xyiiklig-Attsgknfc-DM 3.592468-5 [facility] ([facility]) Hydrocortisone 10 MG/ML / Neomycin 3.5 M G/ML / Polymyxin B 10009 UNT/ML Otic Suspension Kikkmokq-Eozdiprqh-WD 3.510568-9 Zmsyplhw-Vmuzotdys-AJ 3.5-58109-7 03/18/2021 12:00:00 AM EDT 4.0 {drops_into_affected_ear} active Uqdxhkvx-Uuwdlglko-XV 3.568824-2 [facility] ([facility]) Hydrocortisone 10 MG/ML / Neomycin 3.5 M G/ML / Polymyxin B 79124 UNT/ML Otic Suspension Csqagjdb-Nmypuqlff-XO 3.5-47494-9 Oecqkinu-Txjbmsgqy-KW 3.5-93380-3 03/18/2021 12:00:00 AM EDT 4.0 {drops_into_affected_ear} active Duwknuhh-Lruvkzsin-ED 3.597389-2 [facility] ([facility]) Hydrocortisone 10 MG/ML / Neomycin 3.5 M G/ML / Polymyxin B 48713 UNT/ML Otic Suspension Yzbwvedx-Isktuofjn-GG 3.5-04371-1 Usgmwjbd-Hcdljxaur-AU 3.5-02270-6 03/18/2021 12:00:00 AM EDT 4.0 {drops_into_affected_ear} active Oufmykvl-Tkxerwpcx-IF 3.5-78637-5 [facility] ([facility]) Hydrocortisone 10 MG/ML / Neomycin 3.5 M G/ML / Polymyxin B 98802 UNT/ML Otic Suspension Iwozhext-Dxhsovzba-AB 3.5-22067-1 Qqvbhqnw-Zikufpqgu-WZ 3.5-29046-1 03/18/2021 12:00:00 AM EDT 4.0 {drops_into_affected_ear} active Bqgyufyf-Iyisbjeuu-WH 3.5-98862-3 [facility]CW[facility] ([facility]) Hydrocortisone 10 MG/ML / Neomycin 3.5 M G/ML / Polymyxin B 58444 UNT/ML Otic Suspension Dvcjjrjs-Yufpldnqw-CD 3.5-41919-5 Tydsqqvj-Vunphjtyp-NY 3.5-80540-8 03/18/2021 12:00:00 AM EDT 4.0 {drops_into_affected_ear} active Tacnphic-Didqldvnc-DL 3.520310-3 [facility] ([facility]) Hydrocortisone 10 MG/ML / Neomycin 3.5 M G/ML / Polymyxin B 18366 UNT/ML Otic Suspension Rfugztaa-Gupbkkckq-TZ 3.524459-0 Njunsqvy-Utctapund-UL 3.5-84339-4 03/18/2021 12:00:00 AM EDT 4.0 {drops_into_affected_ear} active Szerohul-Ndzsyzugl-HT 3.561622-7 [facility] Hydrocortisone 10 MG/ML / Neomycin 3.5 M G/ML / Polymyxin B 08364 UNT/ML Otic Suspension Mbicntii-Cliqdfivn-PW 3.5-03543-7 Qfichdre-Haeuzzhuw-JC 3.5-81432-5 03/18/2021 12:00:00 AM EDT 4.0 {drops_into_affected_ear} active Hncszbac-Hjyninmks-BN 3.5-37526-5 eCW1 ([facility]) Hydrocortisone 10 MG/ML / Neomycin 3.5 M G/ML / Polymyxin B 03803 UNT/ML Otic Suspension Zkafqowo-Tmzlwtcnt-DJ 3.5-43448-0 Rpzfljyl-Dkbievfeg-CT 3.5-54540-6 03/18/2021 12:00:00 AM EDT 4.0 {drops_into_affected_ear} active Qztbqmgn-Nwdixcjpr-NL 3.5-54267-4 eCW1 ([facility]) Hydrocortisone 10 MG/ML / Neomycin 3.5 M G/ML / Polymyxin B 50613 UNT/ML Otic Suspension Nbgepsno-Bfdnppuyo-TW 3.5-46781-9 Knyenesq-Eikxgzhet-IN 3.5-89549-4 03/18/2021 12:00:00 AM EDT 4.0 {drops_into_affected_ear} active Tihfdydv-Hmsmztbba-YM 3.5-78152-9 eCW1 ([facility]) Hydrocortisone 10 MG/ML / Neomycin 3.5 M G/ML / Polymyxin B 48413 UNT/ML Otic Suspension Etcgtlhn-Ijityaicp-EG 3.5-18910-2 Zyiavfuy-Rmoxvhlzj-RS 3.5-02302-5 03/18/2021 12:00:00 AM EDT 4.0 {drops_into_affected_ear} active Pflhnmpq-Rjyjapqiv-RK 3.5-43421-9 eCW1 ([facility]) POLYETHYLENE GLYCOL 3350 142 MG/ML Oral Solution [Carlene lax] MiraLax 17 GM/SCOOP MiraLax 17 GM/SCOOP 03/15/2021 12:00:00 AM EDT active MiraLax 17 GM/SCOOP eCW1 ([facility]) POLYETHYLENE GLYCOL 3350 142 MG/ML Oral Solution [Carlene lax] MiraLax 17 GM/SCOOP MiraLax 17 GM/SCOOP 03/15/2021 12:00:00 AM EDT active MiraLax 17 GM/SCOOP eCW1 ([facility]) POLYETHYLENE GLYCOL 3350 142 MG/ML Oral Solution [Carlene lax] MiraLax 17 GM/SCOOP MiraLax 17 GM/SCOOP 03/15/2021 12:00:00 AM EDT active MiraLax 17 GM/SCOOP eCW1 ([facility]) Docusate Sodium 100 MG Oral Capsule [Colace] Colace 100 MG C olace 100 MG 03/15/2021 12:00:00 AM EDT 1.0 {capsule} active Colace 100 MG eCW1 ([facility]) POLYETHYLENE GLYCOL 3350 142 MG/ML Oral Solution [Carlene lax] MiraLax 17 GM/SCOOP MiraLax 17 GM/SCOOP 03/15/2021 12:00:00 AM EDT active MiraLax 17 GM/SCOOP eCW1 ([facility]) Docusate Sodium 100 MG Oral Capsule [Colace] Colace 100 MG C olace 100 MG 03/15/2021 12:00:00 AM EDT 1.0 {capsule} active Colace 100 MG eCW1 ([facility]) POLYETHYLENE GLYCOL 3350 142 MG/ML Oral Solution [Carlene lax] MiraLax 17 GM/SCOOP MiraLax 17 GM/SCOOP 03/15/2021 12:00:00 AM EDT active MiraLax 17 GM/SCOOP eCW1 ([facility]) POLYETHYLENE GLYCOL 3350 142 MG/ML Oral Solution [Carlene lax] MiraLax 17 GM/SCOOP MiraLax 17 GM/SCOOP 03/15/2021 12:00:00 AM EDT active MiraLax 17 GM/SCOOP eCW1 ([facility]) Docusate Sodium 100 MG Oral Capsule [Colace] Colace 100 MG C olace 100 MG 03/15/2021 12:00:00 AM EDT 1.0 {capsule} active Colace 100 MG eCW1 ([facility]) Docusate Sodium 100 MG Oral Capsule [Colace] Colace 100 MG C olace 100 MG 03/15/2021 12:00:00 AM EDT 1.0 {capsule} active Colace 100 MG eCW1 ([facility]) POLYETHYLENE GLYCOL 3350 142 MG/ML Oral Solution [Carlene lax] MiraLax 17 GM/SCOOP MiraLax 17 GM/SCOOP 03/15/2021 12:00:00 AM EDT active MiraLax 17 GM/SCOOP eCW1 ([facility]) POLYETHYLENE GLYCOL 3350 142 MG/ML Oral Solution [Carlene lax] MiraLax 17 GM/SCOOP MiraLax 17 GM/SCOOP 03/15/2021 12:00:00 AM EDT active MiraLax 17 GM/SCOOP eCW1 ([facility]) Docusate Sodium 100 MG Oral Capsule [Colace] Colace 100 MG C olace 100 MG 03/15/2021 12:00:00 AM EDT 1.0 {capsule} active Colace 100 MG eCW1 ([facility]) POLYETHYLENE GLYCOL 3350 142 MG/ML Oral Solution [Carlene lax] MiraLax 17 GM/SCOOP MiraLax 17 GM/SCOOP 03/15/2021 12:00:00 AM EDT active MiraLax 17 GM/SCOOP eCW1 ([facility]) Docusate Sodium 100 MG Oral Capsule [Colace] Colace 100 MG C olace 100 MG 03/15/2021 12:00:00 AM EDT 1.0 {capsule} active Colace 100 MG eCW1 ([facility]) POLYETHYLENE GLYCOL 3350 142 MG/ML Oral Solution [Carlene lax] MiraLax 17 GM/SCOOP MiraLax 17 GM/SCOOP 03/15/2021 12:00:00 AM EDT active MiraLax 17 GM/SCOOP eCW1 ([facility]) Docusate Sodium 100 MG Oral Capsule [Colace] Colace 100 MG C olace 100 MG 03/15/2021 12:00:00 AM EDT 1.0 {capsule} active Colace 100 MG eCW1 ([facility]) POLYETHYLENE GLYCOL 3350 142 MG/ML Oral Solution [Carlene lax] MiraLax 17 GM/SCOOP MiraLax 17 GM/SCOOP 03/15/2021 12:00:00 AM EDT active MiraLax 17 GM/SCOOP eCW1 ([facility]) POLYETHYLENE GLYCOL 3350 142 MG/ML Oral Solution [Carlene lax] MiraLax 17 GM/SCOOP MiraLax 17 GM/SCOOP 03/15/2021 12:00:00 AM EDT active MiraLax 17 GM/SCOOP eCW1 ([facility]) POLYETHYLENE GLYCOL 3350 142 MG/ML Oral Solution [Carlene lax] MiraLax 17 GM/SCOOP MiraLax 17 GM/SCOOP 03/15/2021 12:00:00 AM EDT active MiraLax 17 GM/SCOOP eCW1 ([facility]) POLYETHYLENE GLYCOL 3350 142 MG/ML Oral Solution [Carlene lax] MiraLax 17 GM/SCOOP MiraLax 17 GM/SCOOP 03/15/2021 12:00:00 AM EDT act forrest eCW1 ([facility]) POLYETHYLENE GLYCOL 3350 142 MG/ML Oral Solution [Carlene lax] MiraLax 17 GM/SCOOP MiraLax 17 GM/SCOOP 03/15/2021 12:00:00 AM EDT active MiraLax 17 GM/SCOOP eCW1 ([facility]) POLYETHYLENE GLYCOL 3350 142 MG/ML Oral Solution polyethylene glycol (GLYCOLAX) 17 GM/SCOOP powder polyethylene glycol (GLYCOLAX) 17 GM/SCOOP powder 03/05 12:00:00 AM EDT 17 g Oral active Take 17 g by mouth as needed [facility] POLYETHYLENE GLYCOL 3350 142 MG/ML Oral Solution [Carlene lax] MiraLax 17 GM/SCOOP MiraLax 17 GM/SCOOP 03/15/2021 12:00:00 AM EDT active MiraLax 17 GM/SCOOP eCW1 ([facility]) POLYETHYLENE GLYCOL 3350 142 MG/ML Oral Solution [Carlene lax] MiraLax 17 GM/SCOOP MiraLax 17 GM/SCOOP 03/15/2021 12:00:00 AM EDT active MiraLax 17 GM/SCOOP eCW1 ([facility]) Docusate Sodium 100 MG Oral Capsule [Colace] Colace 100 MG C olace 100 MG 03/15/2021 12:00:00 AM EDT 1.0 {capsule} active Colace 100 MG eCW1 ([facility]) POLYETHYLENE GLYCOL 3350 142 MG/ML Oral Solution [Carlene lax] MiraLax 17 GM/SCOOP MiraLax 17 GM/SCOOP 03/15/2021 12:00:00 AM EDT active MiraLax 17 GM/SCOOP eCW1 ([facility]) POLYETHYLENE GLYCOL 3350 142 MG/ML Oral Solution [Carlene lax] MiraLax 17 GM/SCOOP MiraLax 17 GM/SCOOP 03/15/2021 12:00:00 AM EDT active MiraLax 17 GM/SCOOP eCW1 ([facility]) POLYETHYLENE GLYCOL 3350 142 MG/ML Oral Solution [Carlene lax] MiraLax 17 GM/SCOOP MiraLax 17 GM/SCOOP 03/15/2021 12:00:00 AM EDT active MiraLax 17 GM/SCOOP eCW1 ([facility]) Docusate Sodium 100 MG Oral Capsule [Colace] Colace 100 MG C olace 100 MG 03/15/2021 12:00:00 AM EDT 1.0 {capsule} active Colace 100 MG eCW1 ([facility]) Docusate Sodium 100 MG Oral Capsule [Colace] Colace 100 MG C olace 100 MG 03/15/2021 12:00:00 AM EDT 1.0 {capsule} active Colace 100 MG eCW1 ([facility]) POLYETHYLENE GLYCOL 3350 142 MG/ML Oral Solution [Carlene lax] MiraLax 17 GM/SCOOP MiraLax 17 GM/SCOOP 03/15/2021 12:00:00 AM EDT active MiraLax 17 GM/SCOOP eCW1 ([facility]) POLYETHYLENE GLYCOL 3350 142 MG/ML Oral Solution [Carlene lax] MiraLax 17 GM/SCOOP MiraLax 17 GM/SCOOP 03/15/2021 12:00:00 AM EDT active MiraLax 17 GM/SCOOP eCW1 ([facility]) POLYETHYLENE GLYCOL 3350 142 MG/ML Oral Solution [Carlene lax] MiraLax 17 GM/SCOOP MiraLax 17 GM/SCOOP 03/15/2021 12:00:00 AM EDT active MiraLax 17 GM/SCOOP eCW1 ([facility]) POLYETHYLENE GLYCOL 3350 142 MG/ML Oral Solution [Carlene lax] MiraLax 17 GM/SCOOP MiraLax 17 GM/SCOOP 03/15/2021 12:00:00 AM EDT active MiraLax 17 GM/SCOOP eCW1 ([facility]) Docusate Sodium 100 MG Oral Capsule [Colace] Colace 100 MG C olace 100 MG 03/15/2021 12:00:00 AM EDT 1.0 {capsule} active Colace 100 MG eCW1 ([facility]) POLYETHYLENE GLYCOL 3350 142 MG/ML Oral Solution [Carlene lax] MiraLax 17 GM/SCOOP MiraLax 17 GM/SCOOP 03/15/2021 12:00:00 AM EDT active MiraLax 17 GM/SCOOP eCW1 ([facility]) POLYETHYLENE GLYCOL 3350 142 MG/ML Oral Solution [Carlene lax] MiraLax 17 GM/SCOOP MiraLax 17 GM/SCOOP 03/15/2021 12:00:00 AM EDT active MiraLax 17 GM/SCOOP eCW1 ([facility]) Docusate Sodium 100 MG Oral Capsule [Colace] Colace 100 MG C olace 100 MG 03/15/2021 12:00:00 AM EDT 1.0 {capsule} active Colace 100 MG eCW1 ([facility]) POLYETHYLENE GLYCOL 3350 142 MG/ML Oral Solution [Carlene lax] MiraLax 17 GM/SCOOP MiraLax 17 GM/SCOOP 03/15/2021 12:00:00 AM EDT active MiraLax 17 GM/SCOOP eCW1 ([facility]) Fluocinolone Acetonide 0.1 MG/ML Otic Solution [Jeremy ic] DermOtic 0.01 % DermOtic 0.01 % 03/15/2021 12:00:00 AM EDT active DermOtic 0.01 % eCW1 ([facility]) POLYETHYLENE GLYCOL 3350 142 MG/ML Oral Solution [Carlene lax] MiraLax 17 GM/SCOOP MiraLax 17 GM/SCOOP 03/15/2021 12:00:00 AM EDT active MiraLax 17 GM/SCOOP eCW1 ([facility]) POLYETHYLENE GLYCOL 3350 142 MG/ML Oral Solution [Carlene lax] MiraLax 17 GM/SCOOP MiraLax 17 GM/SCOOP 03/15/2021 12:00:00 AM EDT active MiraLax 17 GM/SCOOP eCW1 ([facility]) Docusate Sodium 100 MG Oral Capsule [Colace] Colace 100 MG C olace 100 MG 03/15/2021 12:00:00 AM EDT 1.0 {capsule} active Colace 100 MG eCW1 ([facility]) POLYETHYLENE GLYCOL 3350 142 MG/ML Oral Solution [Carlene lax] MiraLax 17 GM/SCOOP MiraLax 17 GM/SCOOP 03/15/2021 12:00:00 AM EDT active MiraLax 17 GM/SCOOP eCW1 ([facility]) POLYETHYLENE GLYCOL 3350 142 MG/ML Oral Solution [Carlene lax] MiraLax 17 GM/SCOOP MiraLax 17 GM/SCOOP 03/15/2021 12:00:00 AM EDT active MiraLax 17 GM/SCOOP eCW1 ([facility]) POLYETHYLENE GLYCOL 3350 142 MG/ML Oral Solution [Carlene lax] MiraLax 17 GM/SCOOP MiraLax 17 GM/SCOOP 03/15/2021 12:00:00 AM EDT active MiraLax 17 GM/SCOOP eCW1 ([facility]) POLYETHYLENE GLYCOL 3350 142 MG/ML Oral Solution [Carlene lax] MiraLax 17 GM/SCOOP MiraLax 17 GM/SCOOP 03/15/2021 12:00:00 AM EDT active MiraLax 17 GM/SCOOP eCW1 ([facility]) Fluocinolone Acetonide 0.1 MG/ML Otic Solution [Jeremy ic] DermOtic 0.01 % DermOtic 0.01 % 03/15/2021 12:00:00 AM EDT active DermOtic 0.01 % eCW1 ([facility]) POLYETHYLENE GLYCOL 3350 142 MG/ML Oral Solution [Carlene lax] MiraLax 17 GM/SCOOP MiraLax 17 GM/SCOOP 03/15/2021 12:00:00 AM EDT active MiraLax 17 GM/SCOOP eCW1 ([facility]) Docusate Sodium 100 MG Oral Capsule [Colace] Colace 100 MG C olace 100 MG 03/15/2021 12:00:00 AM EDT 1.0 {capsule} active Colace 100 MG eCW1 ([facility]) POLYETHYLENE GLYCOL 3350 142 MG/ML Oral Solution [Carlene lax] MiraLax 17 GM/SCOOP MiraLax 17 GM/SCOOP 03/15/2021 12:00:00 AM EDT active MiraLax 17 GM/SCOOP eCW1 ([facility]) POLYETHYLENE GLYCOL 3350 142 MG/ML Oral Solution [Carlene lax] MiraLax 17 GM/SCOOP MiraLax 17 GM/SCOOP 03/15/2021 12:00:00 AM EDT active MiraLax 17 GM/SCOOP eCW1 ([facility]) POLYETHYLENE GLYCOL 3350 142 MG/ML Oral Solution [Carlene lax] MiraLax 17 GM/SCOOP MiraLax 17 GM/SCOOP 03/15/2021 12:00:00 AM EDT active MiraLax 17 GM/SCOOP eCW1 ([facility]) Docusate Sodium 100 MG Oral Capsule [Colace] Colace 100 MG C olace 100 MG 03/15/2021 12:00:00 AM EDT 1.0 {capsule} active Colace 100 MG eCW1 ([facility]) Docusate Sodium 100 MG Oral Capsule [Colace] Colace 100 MG C olace 100 MG 03/15/2021 12:00:00 AM EDT 1.0 {capsule} active Colace 100 MG eCW1 ([facility]) POLYETHYLENE GLYCOL 3350 142 MG/ML Oral Solution [Carlene lax] MiraLax 17 GM/SCOOP MiraLax 17 GM/SCOOP 03/15/2021 12:00:00 AM EDT active MiraLax 17 GM/SCOOP eCW1 ([facility]) POLYETHYLENE GLYCOL 3350 142 MG/ML Oral Solution [Carlene lax] MiraLax 17 GM/SCOOP MiraLax 17 GM/SCOOP 03/15/2021 12:00:00 AM EDT active MiraLax 17 GM/SCOOP eCW1 ([facility]) POLYETHYLENE GLYCOL 3350 142 MG/ML Oral Solution [Carlene lax] MiraLax 17 GM/SCOOP MiraLax 17 GM/SCOOP 03/15/2021 12:00:00 AM EDT active MiraLax 17 GM/SCOOP eCW1 ([facility]) POLYETHYLENE GLYCOL 3350 142 MG/ML Oral Solution [Carlene lax] MiraLax 17 GM/SCOOP MiraLax 17 GM/SCOOP 03/15/2021 12:00:00 AM EDT active MiraLax 17 GM/SCOOP eCW1 ([facility]) POLYETHYLENE GLYCOL 3350 142 MG/ML Oral Solution [Carlene lax] MiraLax 17 GM/SCOOP MiraLax 17 GM/SCOOP 03/15/2021 12:00:00 AM EDT active MiraLax 17 GM/SCOOP eCW1 ([facility]) POLYETHYLENE GLYCOL 3350 142 MG/ML Oral Solution [Carlene lax] MiraLax 17 GM/SCOOP MiraLax 17 GM/SCOOP 03/15/2021 12:00:00 AM EDT active MiraLax 17 GM/SCOOP eCW1 ([facility]) Docusate Sodium 100 MG Oral Capsule [Colace] Colace 100 MG C olace 100 MG 03/15/2021 12:00:00 AM EDT 1.0 {capsule} active Colace 100 MG eCW1 ([facility]) POLYETHYLENE GLYCOL 3350 142 MG/ML Oral Solution [Carlene lax] MiraLax 17 GM/SCOOP MiraLax 17 GM/SCOOP 03/15/2021 12:00:00 AM EDT active MiraLax 17 GM/SCOOP eCW1 ([facility]) POLYETHYLENE GLYCOL 3350 142 MG/ML Oral Solution [Carlene lax] MiraLax 17 GM/SCOOP MiraLax 17 GM/SCOOP 03/15/2021 12:00:00 AM EDT act forrest eCW1 ([facility]) Docusate Sodium 100 MG Oral Capsule [Colace] Colace 100 MG C olace 100 MG 03/15/2021 12:00:00 AM EDT 1.0 {capsule} active Colace 100 MG eCW1 ([facility]) Docusate Sodium 100 MG Oral Capsule [Colace] Colace 100 MG C olace 100 MG 03/15/2021 12:00:00 AM EDT 1.0 {capsule} active Colace 100 MG eCW1 ([facility]) Docusate Sodium 100 MG Oral Capsule [Colace] Colace 100 MG C olace 100 MG 03/15/2021 12:00:00 AM EDT 1.0 {capsule} active Colace 100 MG eCW1 ([facility]) Bisacodyl 5 MG Delayed Release Oral Tablet bisacodyl 5 MG EC tablet bisacodyl 5 MG EC tablet 03/02/2021 12:00:00 AM EDT 10 mg Oral activ e Take 10 mg by mouth daily [facility] Inject Triamcinolone Acetonide 10 ML, [facility] 8637-9308-16 02/26/2021 12:00:00 AM EDT completed [facility] Medication administered onsite Inject Dexamthosone Phosphate 66763-892-94 02/26/2021 12:00:00 A M EDT completed [facility] ([facility] Medication administered onsite Metoprolol Tartrate 25 MG Oral Tablet me toprolol tartrate (LOPRESSOR) 25 MG tablet metoprolol tartrate (LOPRESSOR) 25 MG tablet 02/26/2021 12:0 0:00 AM EDT active TAKE 1/2 TABLET BY MOUTH @8AM [facility] Prednisone 10 MG Oral Tablet Prednisone 02/12/2021 12:00:00 AM EDT completed [facility] ([facility] Clobetasol Propionate 0.5 MG/ML Topical Cream Clobetas ol Propionate 0.05 % Clobetasol Propionate 0.05 % 01/25/2021 12:00:00 AM EDT active Clobetasol Propionate 0.05 % [facility]CW1 ([facility] Clobetasol Propionate 0.5 MG/ML Topical Cream Clobetas ol Propionate 0.05 % Clobetasol Propionate 0.05 % 01/25/2021 12:00:00 AM EDT active Clobetasol Propionate 0.05 % eCW1 ([facility]) Clobetasol Propionate 0.5 MG/ML Topical Cream Clobetas ol Propionate 0.05 % Clobetasol Propionate 0.05 % 01/25/2021 12:00:00 AM EDT active Clobetasol Propionate 0.05 % eCW1 ([facility]) Clobetasol Propionate 0.5 MG/ML Topical Cream Clobetas ol Propionate 0.05 % Clobetasol Propionate 0.05 % 01/25/2021 12:00:00 AM EDT active Clobetasol Propionate 0.05 % eCW1 ([facility]) Clobetasol Propionate 0.5 MG/ML Topical Cream Clobetas ol Propionate 0.05 % Clobetasol Propionate 0.05 % 01/25/2021 12:00:00 AM EDT active Clobetasol Propionate 0.05 % eCW1 ([facility]) Clobetasol Propionate 0.5 MG/ML Topical Cream Clobetas ol Propionate 0.05 % Clobetasol Propionate 0.05 % 01/25/2021 12:00:00 AM EDT active Clobetasol Propionate 0.05 % eCW1 ([facility]) Clobetasol Propionate 0.5 MG/ML Topical Cream Clobetas ol Propionate 0.05 % Clobetasol Propionate 0.05 % 01/25/2021 12:00:00 AM EDT active Clobetasol Propionate 0.05 % eCW1 ([facility]) Clobetasol Propionate 0.5 MG/ML Topical Cream Clobetas ol Propionate 0.05 % Clobetasol Propionate 0.05 % 01/25/2021 12:00:00 AM EDT active Clobetasol Propionate 0.05 % eCW1 ([facility]) Betamethasone 0.5 MG/ML / Clotrimazole 10 MG/ML Topica l Cream Clotrimazole/Betamethasone Dipropionate 12/31/2020 12:00:00 AM EDT completed [facility] ([facility] Diclofenac Sodium 0.01 MG/MG Topical Gel Diclofenac Sodium 12/07/2020 12:00:00 AM EST active [facility] ([facility] Polymyxin B 75640 UNT/ML / Trimethoprim 1 MG/ML Ophtha lmic Solution Polymyxin B Sulfate/Trimethoprim Sulfate 11/17/2020 12:00:00 AM EST OPHT HALMIC active [facility] ([facility]) mometasone furoate 1 MG/ML Topical Cream Mometasone Furoate 11/15/2020 12:00:00 AM EST completed [facility] ([facility] Betamethasone 0.5 MG/ML Topical Cream Betamethasone Dipropio anjel 11/06/2020 12:00:00 AM EST active M [facility] ([facility] Fluocinolone Acetonide 0.1 MG/ML Otic Solution [Jeremy ic] DermOtic 0.01 % DermOtic 0.01 % 08/07/2020 12:00:00 AM EST active DermOtic 0.01 % eCW1 ([facility] Fluocinolone Acetonide 0.1 MG/ML Otic Solution [Jeremy ic] DermOtic 0.01 % DermOtic 0.01 % 08/07/2020 12:00:00 AM EST cho spended DermOtic 0.01 % eCW1 ([facility]) Fluocinolone Acetonide 0.1 MG/ML Otic Solution [Jeremy ic] DermOtic 0.01 % DermOtic 0.01 % 08/07/2020 12:00:00 AM EST active DermOtic 0.01 % eCW1 ([facility]) Fluocinolone Acetonide 0.1 MG/ML Otic Solution [Jeremy ic] DermOtic 0.01 % DermOtic 0.01 % 08/07/2020 12:00:00 AM EST active DermOtic 0.01 % eCW1 ([facility]) Fluocinolone Acetonide 0.1 MG/ML Otic Solution [Jeremy ic] DermOtic 0.01 % DermOtic 0.01 % 08/07/2020 12:00:00 AM EST active DermOtic 0.01 % eCW1 ([facility]) Fluocinolone Acetonide 0.1 MG/ML Otic Solution [Jeremy ic] DermOtic 0.01 % DermOtic 0.01 % 08/07/2020 12:00:00 AM EST active DermOtic 0.01 % eCW1 ([facility]) Fluocinolone Acetonide 0.1 MG/ML Otic Solution [Jeremy ic] DermOtic 0.01 % DermOtic 0.01 % 08/07/2020 12:00:00 AM EST cho spended DermOtic 0.01 % eCW1 ([facility]) Fluocinolone Acetonide 0.1 MG/ML Otic Solution [Jeremy ic] DermOtic 0.01 % DermOtic 0.01 % 08/07/2020 12:00:00 AM EST active DermOtic 0.01 % eCW1 ([facility]) Fluocinolone Acetonide 0.1 MG/ML Otic Solution [Jeremy ic] DermOtic 0.01 % DermOtic 0.01 % 08/07/2020 12:00:00 AM EST active DermOtic 0.01 % eCW1 ([facility]) Fluocinolone Acetonide 0.1 MG/ML Otic Solution [Jeremy ic] DermOtic 0.01 % DermOtic 0.01 % 08/07/2020 12:00:00 AM EST active DermOtic 0.01 % eCW1 ([facility]) Fluocinolone Acetonide 0.1 MG/ML Otic Solution [Jeremy ic] DermOtic 0.01 % DermOtic 0.01 % 08/07/2020 12:00:00 AM EST active DermOtic 0.01 % eCW1 ([facility]) Fluocinolone Acetonide 0.1 MG/ML Otic Solution [Jeremy ic] DermOtic 0.01 % DermOtic 0.01 % 08/07/2020 12:00:00 AM EST active DermOtic 0.01 % eCW1 ([facility]) Fluocinolone Acetonide 0.1 MG/ML Otic Solution [Jeremy ic] DermOtic 0.01 % DermOtic 0.01 % 08/07/2020 12:00:00 AM EST active DermOtic 0.01 % eCW1 ([facility]) Fluocinolone Acetonide 0.1 MG/ML Otic Solution [Jeremy ic] DermOtic 0.01 % DermOtic 0.01 % 08/07/2020 12:00:00 AM EST active DermOtic 0.01 % eCW1 ([facility]) Fluocinolone Acetonide 0.1 MG/ML Otic Solution [Jeremy ic] DermOtic 0.01 % DermOtic 0.01 % 08/07/2020 12:00:00 AM EST active DermOtic 0.01 % eCW1 ([facility]) Fluocinolone Acetonide 0.1 MG/ML Otic Solution [Jeremy ic] DermOtic 0.01 % DermOtic 0.01 % 08/07/2020 12:00:00 AM EST cho spended DermOtic 0.01 % eCW1 ([facility]) Fluocinolone Acetonide 0.1 MG/ML Otic Solution [Jeremy ic] DermOtic 0.01 % DermOtic 0.01 % 08/07/2020 12:00:00 AM EST active DermOtic 0.01 % eCW1 ([facility]) Fluocinolone Acetonide 0.1 MG/ML Otic Solution [Jeremy ic] DermOtic 0.01 % DermOtic 0.01 % 08/07/2020 12:00:00 AM EST active DermOtic 0.01 % eCW1 ([facility]) Fluocinolone Acetonide 0.1 MG/ML Otic Solution [Jeremy ic] DermOtic 0.01 % DermOtic 0.01 % 08/07/2020 12:00:00 AM EST cho spended DermOtic 0.01 % eCW1 ([facility]) Fluocinolone Acetonide 0.1 MG/ML Otic Solution [Jeremy ic] DermOtic 0.01 % DermOtic 0.01 % 08/07/2020 12:00:00 AM EST cho spended DermOtic 0.01 % eCW1 ([facility]) Fluocinolone Acetonide 0.1 MG/ML Otic Solution [Jeremy ic] DermOtic 0.01 % DermOtic 0.01 % 08/07/2020 12:00:00 AM EST active DermOtic 0.01 % eCW1 ([facility]) Sulfamethoxazole 800 MG / Trimethoprim 160 MG Oral Tab let Sulfamethoxazole/Trimethoprim DS 08/06/2020 12:00:00 AM EST ORAL active [facility] ([facility] linezolid 600 MG Oral Tablet Linezolid 08/06/2020 12:00:00 AM EST ORAL active [facility] ([facility] tramadol hydrochloride 50 MG Oral Tablet Tramadol HCL 08/01/2020 12:00:00 AM EDT active [facility] ([facility]) Mupirocin 0.02 MG/MG Topical Ointment Mupirocin 07/14/2020 12:00:00 AM EDT completed [facility] ([facility]) apixaban 5 MG Oral Tablet [Eliquis] ELIQUIS 5 MG TABS tablet ELIQUIS 5 MG TABS tablet 05/15/2020 12:00:00 AM EDT aborted TAKE TWO TABLETS BY MOUTH TWICE DAILY FOR ONE WEEK THEN ONE TABLET TWICE DAILY FOR 23 DAYS [facility] Mupirocin 0.02 MG/MG Topical Ointment mupirocin (BACTR OBAN) 2 % ointment mupirocin (BACTROBAN) 2 % ointment 04/12/2020 12:00:00 AM EDT aborted APPLY TO WOUND ON RIGHT FOOT ONCE DAILY [facility] Levothyroxine Sodium 0.075 MG Oral Table t levothyroxine (SYNTHROID, LEVOTHROID) 75 MCG tablet levothyroxine (SYNTHROID, LEVOTHROID) 75 MCG tablet 12:00:00 AM EST 1 {tbl} Oral aborted Take 1 tablet by mouth daily [facility] Aspirin 325 MG Delayed Release Oral Tablet aspirin EC 325 MG EC tablet aspirin EC 325 MG EC tablet 325 mg Oral aborted Frank e 325 mg by mouth daily [facility] Polyvinyl Alcohol 0.014 ML/ML Ophthalmic Solution polyvinyl alcohol (ARTIFICIAL TEARS) 1.4 % ophthalmic solution polyvinyl alcohol (ARTIFICIAL TEARS) 1.4 % ophthalmic solution 1 [drp] aborted Administer 1 drop to both eyes 2 (two) times a day [facility] Hydrocortisone 10 MG/ML Topical Cream hydrocortisone 1 % cream hydrocortisone 1 % cream Topical aborted Apply topicall y 2 (two) times a day [facility] Acetaminophen 500 MG Oral Tablet acetaminophen (TYLENO L) 500 MG tablet acetaminophen (TYLENOL) 500 MG tablet 1000 mg Oral aborted Take 1,000 mg by mouth every 6 (six) hours as needed for pain [facility] ammonium lactate 120 MG/ML Topical Lotio n ammonium lactate (LAC-HYDRIN) 12 % lotion ammonium lactate (LAC-HYDRIN) 12 % lotion 1 {appli cation} Topical aborted Apply 1 application topicall y daily as needed for dry skin [facility] Insurance Providers Payer name Policy type / Coverage type Policy ID Covered libertarian ID Covered libertarian's relationship to uribe Policy Uribe Plan Information HMOBLUE OPTION 2 [id number] 1 [id number] HMOBLUE OPTION 2 [id number] Medicaid [facility] Part B [id number] Self [id number] [facility] [id number] Self [id number] [facility] [id number] Self [id number] [facility] [id number] Self [id number] [facility] [id number] Self [id number] [facility] [id number] -[id number] Self [id number] [facility] [id number] 2.16.840.1.881548.3.227.99 .991.607308.0 Self [id number] [place] [id number] 2.0.1.324459.3.227.99 .991.847369.0 Self [id number] [place] [id number] 2.0.1.940033.3.227.99 .991.676731.0 Self [id number] [place] [id number] 2.0.1.526528.3.227.99 .991.691212.0 Self [id number] [place] [id number] 2.0.1.408021.3.227.99 .991.780626.0 Self [id number] [place] [id number] MRN.991.ra75pv74 -[id number] Self [id number] [place] [id number] 2.0.1.791324.3.227.99 .991.306343.0 Self [id number] [place] [id number] Self [facility] [employer] Medigap Part B [id number] Self [id number] [employer] Medigap Part B [id number] 2.0.1.574401.3.227.99.991.608116.0 Self [id number] [employer] Medigap Part B [id number] 2.0.1.242749.3.227.99.991.532729.0 Self [id number] [employer] Medigap Part B [id number] MRN.991.[id number] Self [id number] [employer] Medigap Part B [id number] 2.0.1.327061.3.227.99.991.927659.0 Self [id number] [employer] Medigap Part B [id number] 2.0.1.998915.3.227.99.991.687702.0 Self [id number] [employer] Medigap Part B [id number] 2.0.1.637191.3.227.99.991.907454.0 Self [id number] [employer] Medigap Part B [id number] 2.0.1.823181.3.227.99.991.332166.0 Self [id number] [employer] Medigap Part B [id number] 2..1.810214.3.227.99.991.309667.0 Self [id number] [employer] Medigap Part B [id number] 2..1.214757.3.227.99.991.766792.0 Self [id number] [employer] Medigap Part B [id number] MRN.991.[id number] Self [id number] [employer] Medigap Part B [id number] 2..1.660025.3.227.99.991.020278.0 Self [id number] [employer] Medigap Part B [id number] MRN.991.[id number] Self [id number] [employer] Medigap Part B [id number] 2..1.479247.3.227.99.991.221004.0 Self [id number] [facility] Commercial [id number] 2.0.1.417676.3.227.99.177.78800.0 Self [id number] [facility] I [id number] Self [id number] [facility] Community Plan Commercial [id number] MRN.991.[id number] Self [id number] [facility] Community Plan Commercial [id number] [facility] [id number] [id number] Self [facility] I [id number] Self [id number] [facility] [id number] MRN.[id number] Self [id number] [facility] MEDICAID [id number] Kisha [id number] 33 [facility] MEDICAID [id number] Kisha [id number] 33 [facility] COMMUNITY PLAN MCDHMO [id number] SP [id number] [facility] COMMUNITY PLAN MCDHMO [id number] SP [id number] [facility] MEDICAID [id number] 1 [facility] COMMUNITY PLAN MCDHMO [id number] SP [id number] [facility] COMMUNITY PLAN MCDHMO [id number] SP [id number] [facility] Community Plan Commercial [id number] 2.16.840.1.092624.3.22 7.99.1209.4131.0 Self [id number] [facility] COMMUNITY PLAN MCDHMO [id number] SP [id number] [facility] Health Maintenance Organization (HMO) [id number] 2.16.840.1.462810.3.227.99.1767.74378.0 Self [id number] [facility]-Med[facility] [id number] ANS-Medicaid [id number] ANSI-Medicaid [id number] ANSI-Medicaid [id number] ANSI-Medicaid [id number] ANSI-Medicaid [id number] ANSI-Medicaid [id number] ANSI-Medicaid [id number]-[id number] ANSI-Medicaid [id number] ANSI-Medicaid [id number] ANSI-Medicaid [id number]-72y3-w48j-[id number] ANSI-Medicaid [id number] ANSI-Medicaid [id number] ANSI-Medicaid [id number]-[id number] ANSI-Medicaid [id number] ANSI-Medicaid [id number]-[id number] ANSI-Medicaid [id number]-[id number] ANSI-Medicaid [id number]-[id number] ANSI-Medicaid [id number] ANSI-Medicaid [id number]-6c69-v97o-[id number] ANSI-Medicaid [id number]-18z7-[id number] ANSI-Medicaid [id number] ANSI-Medicaid [id number]-2103-yra8-h2s08te984hm ANSI-Medicaid [id number]-ltv8-zl3c17oo6cgc ANSI-Medicaid [id number]-[id number] ANSI-Medicaid [id number]-5e9t-998o-[id number] ANSI-Medicaid [id number]-[id number]-9cy2-q77n-[id number] ANSI-Medicaid [id number]-o2h6-8950-3r1x-pi4cx80ajbd4 ANSI-Medicaid [id number]-88w1-2543-xds9-33g4ph5n2885 ANSI-Medicaid [id number]-78i5-[id number] [facility] [id number] 2.16.840.1.619123.3.227.99.7286.45215.0 Self [id number] ANSI-Medicaid [id number] ANSI-Medicaid [id number]-[id number] ANSI-Medicaid [id number] k9q5h4dn-c9u2-4563-69bk-8l7619cnea1k ANSI-Medicaid [id number]-[id number] ANSI-Medicaid [id number]-[id number] ANSI-Medicaid [id number]-[id number] ANSI-Medicaid [id number]-o2370ib690y2 ANSI-Medicaid [id number]-[id number] ANSI-Medicaid [id number]-[id number] ANSI-Medicaid [id number]-[id number]-3103-784k-9v6v-[id number] ANSI-Medicaid [id number]-f12w-4t73-k886-[id number] ANSI-Medicaid [id number]-mp90-0l3e-[id number] ANSI-Medicaid [id number]-an2t0l77pkum 8248gkw7-9vr2-91m9-43d5-hs4s8m19utxs ANSI-Medicaid [id number]-[id number]-v9cs-433e-7ln7-h96c1a8x6553 ANSI-Medicaid [id number]-[id number]-[id number]-3t8y-3s1w-23dva700t22l ANSI-Medicaid [id number]-510s-24c9-[id number] ANSI-Medicaid [id number]-[id number] 36w2w855-4x2j-990i-o9z9-5rf34b1v6f83 ANSI-Medicaid [id number]-[id number] ANSI-Medicaid [id number] ANSI-Medicaid [id number]-[id number] [id number]-821z-[id number] ANSI-Medicaid [id number]-[id number] q976o5q4-5079-6v11-[id number] ANSI-Medicaid [id number]-[id number] ANSI-Medicaid [id number] ANSI-Medicaid [id number]-in1r-[id number] [id number]-rd5y-[id number] ANSI-Medicaid [id number] ANSI-Medicaid [id number] [facility] Health Maintenance Organization (O) [id number] 2.16.840.1.464647.3.227.99.1767.51953.0 [facility] [id number] ANSI-Medicaid [id number]-8o12-4msw-[id number] ANSI-Medicaid [id number]-[id number] ANSI-Medicaid [id number]-g3rz-4p1r-[id number]-b3hj-3i6d-8aqv-7f70z63yov1d ANSI-Medicaid [id number]-[id number]-1i50-wt41d5k5wys5 ANSI-Medicaid [id number]-fb1b-[id number] ANSI-Medicaid [id number]-7058-[id number] ANSI-Medicaid [id number] ANSI-Medicaid [id number] [facility] Health Maintenance Organization (HMO) 1030 [id number] 2.16.840.1.508444.3.227.99.8646.21258.0 Self [id number] ANSI-Medicaid [id number]-s52s-[id number] ANSI-Medicaid [id number]-qf30-[id number]-ar12-ro55heh92qv6 ANSI-Medicaid [id number]-q963-3j39-8s0x-[id number]-r129-2d56-6t8c-5732sa21f56j ANSI-Medicaid [id number]-[id number] [facility] Health Maintenance Organization ([facility] 1030 [id number] 2.16.840.1.680221.3.227.99.8646.10865.0 Self [id number] ANSI-Medicaid [id number]-5d1q-2cjn-9861-[id number] ANSI-Medicaid [id number]-g1g7-[id number] s6c564em-w8e9-666u-s8t8-wl3n2i280am3 ANSI-Medicaid [id number]-8137-f4on-[id number] ANSI-Medicaid [id number]-[id number]-hj5k-[id number] ANSI-Medicaid [id number]-[id number] ANSI-Medicaid [id number]-[id number]-[id number]-11ld-9n81-u35j-[id number] ANS-Medicaid [id number]-2ne8-0fi2-[id number] 9413b8za-3pj7-3ng2-g73s-[id number] ANSI-Medicaid [id number]-8d1q-[id number]-6x5w-59u6-76po-[id number] ANS-Medicaid [id number]-[id number] [id number]-4w75-2q17-[id number] ANS-Medicaid [id number]-r45p-[id number] ANS-Medicaid [id number]-[id number] ANS-Medicaid [id number]-3jc7-[id number] [id number]-9bg0-s8l0f287q40q [facility] Health Maintenance Organization ([facility] [id number] 2.16.840.1.406376.3.227.99.8646.40517.0 Self [id number] ANS-Medicaid [id number]-0g61-35a8-67a0-57w8t78u5vi2 ANS-Medicaid [id number]-60c6-8lz1-jyix-[id number]-13t6-4wr9-gpnn-[id number] ANS-Medicaid [id number]-1630-18u9-60y5-[id number] [facility] Health Maintenance Organization ([facility]) [id number] 2.16.840.1.193923.3.227.99.1767.36169.0 [facility] [id number] ANSI-Medicaid [id number]-[id number] ANSI-Medicaid [id number]-[id number]-[id number] qq1o195f-b3xm-415h-099l-2lqv14i0zs3i ANSI-Medicaid [id number]-904k-[id number] ANSI-Medicaid [id number]-[id number]-a4g7-7xol-26e6-73n80m5eua5z ANSI-Medicaid [id number]-jppo-[id number] s0u54t3d-mgzz-050z-f038-ig231s0052lg ANSI-Medicaid [id number]-[id number] [facility] [id number] ANSI-Medicaid [id number]-x974-9b55-9101-3u4ae77t6n2u ANSI-Medicaid [id number]-[id number] 88e769in-xp1s-7ew3-p6du-48q59wowjj25 ANSI-Medicaid [id number]-i9i9-7rfp-i26t-[id number] ANSI-Medicaid [id number] ANSI-Medicaid [id number]-[id number] [id number]-303t-[id number] ANSI-Medicaid [id number]-[id number]-7786-18b6-9ei3-vms99m9qj4i1 ANSI-Medicaid [id number]-l778-[id number] ANSI-Medicaid [id number]-[id number]-[id number] ANSI-Medicaid [id number]-u084-746c-555d-[id number] [facility] MEDICAID PI PI ANSI-Medicaid [id number]-[id number]-[id number] ANSI-Medicaid [id number]-iost-2212-0f2f-[id number] ANSI-Medicaid [id number]-8b6p-[id number]-n1d9-02mz-3a5j-1oe789e3g0zw ANSI-Medicaid [id number]-g8om-5dr9-[id number] 154x0cct-i4dz-2qk0-m1ku-[id number] ANSI-Medicaid [id number]-[id number] ANSI-Medicaid [id number] ANSI-Medicaid [id number]-[id number] 39cpcg31-5226-7nnw-54nk-[id number] ANSI-Medicaid [id number]-[id number] ANSI-Medicaid [id number] ANSI-Medicaid [id number]-[id number] [facility] Health Maintenance Organization (HMO) [id number] 2.16.840.1.401264.3.227.99.8646.76007.0 Self [id number] ANSI-Medicaid [id number]-fi7d-2704-f24q-[id number] ANSI-Medicaid [id number]-7y1f-5y59-[id number] ANSI-Medicaid [id number]-0q3b-[id number] ANSI-Medicaid [id number]-4g69-sy5d-[id number] ANSI-Medicaid [id number]-38lq-[id number] ANSI-Medicaid [id number]-[id number] ANSI-Medicaid [id number] ANSI-Medicaid [id number] ANSI-Medicaid [id number] ANSI-Medicaid [id number] ANSI-Medicaid [id number] ANSI-Medicaid [id number] ANSI-Medicaid [id number] ANSI-Medicaid [id number] ANSI-Medicaid [id number] ANSI-Medicaid [id number] ANSI-Medicaid [id number] ANSI-Medicaid [id number] ANSI-Medicaid [id number] [facility] Health Maintenance Organization (HMO) [id number] Self [id number] [facility] Health Maintenance Organization (HMO) [id number] Self [id number] [facility] [id number] S [id number] [facility] Health Maintenance Organization (HMO) [id number] Self [id number] [facility] COMMUNITY PLAN [facility] [id number] SP [id number] [facility] Health Maintenance Organization (HMO) [id number]..[id number] Self [id number] [facility] Health Maintenance Organization (HMO) [id number] [facility] MEDICAID MOE HMO [id number] S [id number] [employer] COMMUNITY PLAN MCDHMO [id number] SP [id number] UNHC COMMUNITY PLAN MCDHMO [id number] SP [id number] [facility] Health Maintenance Organization (HMO) [id number] Self [facility] Health Maintenance Organization (HMO) [id number] Self MEDICAID [id number] [facility] P UNAVAILABLE [id number] C UNAVAILABLE BLUE CROSS MCDERMOTT PLAN [id number] SP [id number] EXCELLUS BCBS P [id number] S [id number] EXCELLUS BCBS P [id number] S [id number] EXCELLUS BCBS P UNAVAILABLE [id number] [place] 3 [id number] N BLUE CROSS MCDERMOTT PLAN [id number] SP [id number] SELF PAY 2 UNAVAILABLE 1 UNAVAILA BLE ANSI-Medicaid [id number] UNHC COMMUNITY PLAN MCDHMO [id number] SP [id number] [facility] MOE [id number] SP [id number] UNHC COMMUNITY PLAN XIX [id number] [id number] [facility](MCAID) O [id number] S [id number] [facility] MOE [id number] SP [id number] [facility] [id number] SP [id number] MEDICAID M [id number] S [id number] ANSI-Medicaid [id number] ANSI-Medicaid [id number] ANSI-Medicaid [id number] ANSI-Medicaid [id number] ANSI-Medicaid [id number] ANSI-Medicaid [id number] ANSI-Medicaid [id number] ANSI-Medicaid [id number] ANSI-Medicaid [id number] ANSI-Medicaid [id number] ANSI-Medicaid [id number] ANSI-Medicaid [id number] ANSI-Medicaid [id number] ANSI-Medicaid [id number] ANSI-Medicaid [id number] ANSI-Medicaid [id number] ANSI-Medicaid [id number] ANSI-Medicaid [id number] ANSI-Medicaid [id number] ANSI-Medicaid [id number] ANSI-Medicaid [id number] [facility] Health Maintenance Organization ([facility] [id number] Self [id number] [facility] Health Maintenance Organization ([facility]) [id number] Self [id number] [facility]-Med[facility] [id number] ANSI-Medicaid [id number] ANSI-Medicaid [id number] ANSI-Medicaid [id number] ANSI-Medicaid [id number] ANSI-Medicaid [id number] ANSI-Medicaid [id number] ANSI-Medicaid [id number] ANSI-Medicaid [id number] ANSI-Medicaid [id number] ANSI-Medicaid [id number] ANSI-Medicaid [id number] ANSI-Medicaid [id number] ANSI-Medicaid [id number] [facility] Health Maintenance Organization ([facility]) [id number] Self [id number] Problems, Conditions, and Diagnoses Code Display Name Description Problem Type Effective Dates Data Source(s) I10 Essential (primary) hypertension Essential (primary) h ypertension Diagnosis 05/31/2021 07:40:13 AM EDT [facility] E78.5 Hyperlipidemia, unspecified Hyperlipidemia, unspecifie d Diagnosis 05/31/2021 07:40:13 AM EDT [facility] I25.10 Atherosclerotic heart diseas e of [place] coronary artery without angina pectoris Atherosclerotic heart disease of [place] Diagnosis 05/31/2021 07:40:13 AM EDT [facility] G47.30 Sleep apnea, unspecified Sleep apnea, unspecified Diag nosis 04/19/2021 12:58:45 PM EDT [facility] I31.3 Pericardial effusion (noninflammatory) P ericardial effusion (noninflammatory) Diagnosis 04/19/2021 12:58:45 PM EDT [facility] F41.8 Other specified anxiety disorders Other specifie d anxiety disorders Diagnosis 04/19/2021 12:58:45 PM EDT [facility] K21.9 Gastro-esophageal reflux disease without esophagitis Gastro-esophageal reflux disease without Diagnosis 04/19/2021 12:58:45 PM EDT [facility] E03.9 Hypothyroidism, unspecified Hypothyroidism, unspecifie d Diagnosis 04/19/2021 12:58:45 PM EDT [facility] Z1152 ENCOUNTER FOR SCREENING FOR COVID-19 ENCOUNTER F OR SCREENING FOR COVID-19 Diagnosis 03/29/2021 01:56:[address] [facility] Z6842 Body mass index [BMI] 45.0-49.9, adult B tame[place] mass index [BMI] 45.0-49.9, adult Diagnosis 03/29/2021 01:56:[address] [facility] J9811 Atelectasis Atelectasis Diagnosis 03/29/2021 01:56:[address] [facility] J90 Pleural effusion, not elsewhere classifi ed Pleural effusion, not elsewhere classified Diagnosis 03/29/2021 01:56:[address] [facility] R600 Localized edema Localized edema Diagnosis 03/29/2021 01:5 6:[address] [facility] E039 Hypothyroidism, unspecified Hypothyroidism, unspecifie d Diagnosis 03/29/2021 01:56:[address] [facility] E7800 Pure hypercholesterolemia, unspecified P ure hypercholesterolemia, unspecified Diagnosis 03/29/2021 01:56:[address] [facility] E669 Obesity, unspecified Obesity, unspecified Diagnosis 03/29/2021 01:56:[address] 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 Z951 Presence of aortocoronary bypass graft P resence of aortocoronary bypass graft Diagnosis 03/29/2021 01:56:[address] [facility] R0789 Other chest pain Other chest pain Diagnosis 03/29/2021 01 :56:[address] [facility] Y[address] or not applicable Unspecified place or not applicable Diagnosis 03/22/2021 04:02:[address] [facility] K88211 Latex allergy status Latex allergy status Diagnosis 03/22/2021 04:02:[address] [facility] P09350 Personal history of nicotine dependence Personal history of nicotine dependence Diagnosis 03/22/2021 04:02:[address] [facility] [id number] Sprain of unspecified ligament of right ankle, initial encounter Sprain of unspecified ligament of right ankle, initial encounter Diagnosis 03/22/2021 04:02:[address] [facility] O59023 Pain in right ankle and joints of right foot Pain in right ankle and joints of right foot Diagnosis 03/22/2021 04:02:00 PM EDT [facility] L23.9 [id number] Allergic contact dermatitis, unspecified trigger Problem 06/28/2021 12:00:00 AM EDT [facility] S93.401D Sprain of ankle Sprain of ankle Problem 04/18/2021 12:0 0:00 AM EDT [facility] ([facility] M21.6x1 Pronation Pronation Problem 02/26/2021 12:00:00 AM ED T [facility] ([facility] M72.2 Plantar fascial fibromatosis Plantar fascial fibromato sis Problem 02/26/2021 12:00:00 AM EDT [facility] ([facility] M47.817 [id number] Arthritis of lumbosacral spine Problem 02/12/2021 12:00:00 AM EDT [facility]) G89.29 Chronic pain Other chronic pain Problem 02/04/2021 12:0 0:00 AM EDT [facility] ([facility]) L84 Callosity Callosity Problem 02/03/2021 12:00:00 AM ED T [facility] ([facility] K76.89 [id number] Liver cyst Problem 01/25/2021 12:00:00 AM ED T [facility]) M20.41 [id number] Other hammer toe(s) (acquired), right cherelle t Problem 01/08/2021 12:00:00 AM EDT [facility] ([facility]) Z48.89 Convalescence after surgery Convalescence after surger y Problem 08/20/2020 12:00:00 AM EST - 12/20/2020 12:00:00 AM EDT [facility] ([facility] S31.819D [id number] Unspecified open wou nd of right buttock, subsequent encounter Problem 08/09/2020 12:00:00 AM EST eCW1 ([facility]) M46.1 [id number] Sacroiliitis Problem 08/08/2020 12:00:00 AM EST [facility] ([facility]) H60.93 [id number] Inflammation of both ear canals Problem 08/07/2020 12:00:00 AM EST [facility] ([facility]) S31.819A [id number] Wound of right buttock, initial encounter Problem 07/26/2020 12:00:00 AM EDT [facility] ([facility]) Surgeries/Procedures Procedure Description Date Indications Data Source(s) OFFICE OUTPATIENT VISIT 10 MINUTES 08/05/2021 12:00:00 AM EDT [facility] OFFICE OUTPATIENT VISIT 15 MINUTES 07/19/2021 12:00:00 AM EDT [facility] ([facility] ) OFFICE OUTPATIENT VISIT 15 MINUTES 07/03/2021 12:00:00 AM EDT [facility] ([facility] ) OFFICE OUTPATIENT NEW 45 MINUTES 07/03/2021 12:00:00 A M EDT [facility] ([facility] ) OFFICE OUTPATIENT VISIT 10 MINUTES 07/02/2021 12:00:00 AM EDT [facility] Medication: 0.9 % Sodium Chloride [place] 06/28/2021 12:00: 00 AM EDT [facility]) Injection, triamcinolone acetonide, not otherwise specified , 10 mg 06/28/2021 12:00:00 AM EDT eCW1 ([facility]) OFFICE OUTPATIENT VISIT 25 MINUTES 06/21/2021 12:00:00 AM EDT [facility] ([facility] ) PHYSICIAN TELEPHONE EVALUATION 11-20 MIN 06/21/2021 12 :00:00 AM EDT [facility] ([facility] ) MRI UPPER EXTREMITY OTH THAN JT W/O CONTR MATRL 2020 12:00:00 AM EDT [facility] ([facility] ) MRI UPPER EXTREMITY OTH THAN JT W/O CONTR MATRL 2020 12:00:00 AM EDT [facility] ([facility] ) RADEX HAND MINIMUM 3 VIEWS 06/12/2021 12:00:00 AM EDT [facility] ([facility]) OFFICE OUTPATIENT VISIT 15 MINUTES 06/12/2021 12:00:00 AM EDT [facility] ([facility]) INJECTION 1 TENDON SHEATH/LIGAMENT APONEUROSIS 021 12:00:00 AM EDT [facility] ([facility] OFFICE OUTPATIENT VISIT 10 MINUTES 06/04/2021 12:00:00 AM EDT [facility] ([facility] OFFICE OUTPATIENT VISIT 15 MINUTES 05/23/2021 12:00:00 AM EDT [facility] ([facility], ) APPLICATION CAST ELBOW FINGER SHORT ARM 05/21/2021 12: 00:00 AM EDT [facility] ([facility]) RADEX HAND MINIMUM 3 VIEWS 05/21/2021 12:00:00 AM EDT [facility] ([facility]) OFFICE OUTPATIENT VISIT 15 MINUTES 05/21/2021 12:00:00 AM EDT [facility] ([facility]) OFFICE OUTPATIENT VISIT 25 MINUTES 05/21/2021 12:00:00 AM EDT [facility] ([facility]) OFFICE OUTPATIENT VISIT 15 MINUTES 05/02/2021 12:00:00 AM EDT [facility] ([facility] ECG ROUTINE ECG W/LEAST 12 LDS W/I&R <td>POCT AMB EKG</td><td>Routine</td><td>04/19/2021 1:42 PM EDT</td><td> Coronary artery disease involving [place] coronary artery of [place] heart without angina pectoris Benign essential hypertension</td><td> </td> 04/19/2021 01:42:00 PM EDT Benign essential hypertensionCoronary ar litzy disease involving [place] coronary artery of [place] heart without angina pectoris [facility] Benign essential hypertension Coronary artery disease involving [place] coronary artery of [place] heart without angina pectoris OFFICE OUTPATIENT VISIT 10 MINUTES 04/18/2021 12:00:00 AM EDT [facility] RADEX FOOT COMPLETE MINIMUM 3 VIEWS 03/20/2021 12:00:0 0 AM EDT [facility] OFFICE OUTPATIENT VISIT 10 MINUTES 03/20/2021 12:00:00 AM EDT [facility] OFFICE OUTPATIENT VISIT 15 MINUTES 03/20/2021 12:00:00 AM EDT [facility] ([facility] ) OFFICE OUTPATIENT VISIT 10 MINUTES 03/12/2021 12:00:00 AM EDT [facility] INJECTION 1 TENDON SHEATH/LIGAMENT APONEUROSIS 021 12:00:00 AM EDT [facility] OFFICE OUTPATIENT VISIT 10 MINUTES 02/26/2021 12:00:00 AM EDT [facility] OFFICE OUTPATIENT VISIT 25 MINUTES 02/21/2021 12:00:00 AM EDT [facility] ([facility] ) Strapping Foot Or Ankle 02/12/2021 12:00:00 AM EDT [facility] ([facility] OFFICE OUTPATIENT VISIT 10 MINUTES 02/12/2021 12:00:00 AM EDT [facility] OFFICE OUTPATIENT VISIT 10 MINUTES 02/01/2021 12:00:00 AM EDT [facility] OFFICE OUTPATIENT VISIT 25 MINUTES 12/26/2020 12:00:00 AM EDT [facility] ([facility], ) RADEX HAND MINIMUM 3 VIEWS 12/19/2020 12:00:00 AM EDT [facility] ([facility]) RADEX FOOT COMPLETE MINIMUM 3 VIEWS 12/07/2020 12:00:0 0 AM EST [facility] OFFICE OUTPATIENT VISIT 15 MINUTES 12/07/2020 12:00:00 AM EST [facility] APPLICATION SHORT LEG CAST BELOW KNEE-TOE 11/28/2020 1 2:00:00 AM EST [facility] ([facility]) RADEX HAND MINIMUM 3 VIEWS 11/28/2020 12:00:00 AM EST [facility] ([facility]) RADEX HAND MINIMUM 3 VIEWS 11/14/2020 12:00:00 AM EST [facility] ([facility]) OFFICE OUTPATIENT VISIT 10 MINUTES 11/06/2020 12:00:00 AM EST [facility] OFFICE OUTPATIENT VISIT 25 MINUTES 11/02/2020 12:00:00 AM EST [facility] ([facility]) CLTX METACARPAL FX W/O MANIPULATION EACH BONE 10/29/19 12:00:00 AM EST [facility] ([facility]) OFFICE OUTPATIENT VISIT 15 MINUTES 10/29/2020 12:00:00 AM EST [facility] ([facility]) ARTHROCENTESIS ASPIR&/INJECTION SMALL JT/BURSA 021 12:00:00 AM EST [facility] ([facility]) OFFICE OUTPATIENT VISIT 15 MINUTES 10/12/2020 12:00:00 AM EST [facility] ([facility]) ARTHROCENTESIS ASPIR&/INJECTION MAJOR JT/BURSA 021 12:00:00 AM EST [facility] ([facility]) OFFICE OUTPATIENT VISIT 15 MINUTES 10/11/2020 12:00:00 AM EST [facility] ([facility] ) FINE NEEDLE ASPIRATION W/O IMAGING GUIDANCE 07/26/2020 12:00:00 AM EDT [facility] RADEX FOOT COMPLETE MINIMUM 3 VIEWS 07/23/2020 12:00:0 0 AM EDT [facility] ([facility] Remove Support Implant Deep 07/18/2020 12:00:00 AM EDT [facility] ([facility] Hammertoe Proc One Toe 07/18/2020 12:00:00 AM EDT [facility] ([facility] Ostectomy/Exostectomy/Condylectomy Metatarsal Head 07/18/2020 12:00:00 AM EDT [facility] ([facility] Results ID Date Data Source [id number] 04/02/2021 10:21:00 [place] [address] PHONE: [phone] FAX: [phone] Name .................. : JUVE Hawthorne Acct Number.................. : [id number] ROOM. ................. : 103-1 MR Number ................... : [id number] Stay type ............. : O/P Discharge Date......... ... : Admit Date ......... : 03/29/21 Admit Phys .................... : COOKIE Date of ....... : 1965 Family Phys ................... : HAVEN RIVERA Phone .................. : [phone] Age ................................ : 55 Film# .................. .:[id number] Sex ................................. : M Unsigned transcriptions are preliminary reports and do not represent a medical or legal document CHEST PORTABLE [id number] COMPLETE:03/29/21 16:55 KBO 15197 Reason(s): Chest Pain PORTABLE CHEST X-RAY: INDICATION: [...] By Ollie Stewart M.D. , 04/02/21 10:21, [facility] Transcribe Initials: DZ , Transcribe Date: 03/30/21 01:15, Dictation Date: Copy for: EMERGENCY DEPT via modem Copy for: 710 MED REC DISCHARGED Page 1 of 1 Name Value Range Interpretation Code Description Data Toma rce(s) Supporting Document(s) ID Date Data Source [id number] 04/02/2021 10:20:00 AM EDT [facility] [address] [place] [address] PHONE: [phone] FAX: [phone] Name .................. : JUVE Hawthorne Acct Number.................. : [id number] ROOM. ................. : 103-1 MR Number ................... : [id number] Stay type ............. : O/P Discharge Date......... ... : Admit Date ......... : 03/29/21 Admit Phys .................... : JUANITA-ALAN Date of ....... : 1965 Family Phys ................... : OROURKE NICOLE Phone .................. : [phone] Age ................................ : 55 Film# .................. .:[id number] Sex ................................. : M Unsigned transcriptions are preliminary reports and do not represent a medical or legal document [place] [id number] COMPLETE:03/29/21 14:34 KNB 37505 Reason(s): Pain, Limb VENOUS DOPPLER ULTRASOUND OF [...] By Ollie Stewart M.D. , 04/02/21 10:20, [facility] Transcribe Initials: DRE , Transcribe Date: 03/30/21 01:04, Dictation Date: Copy for: EMERGENCY DEPT via modem Copy for: 710 MED REC DISCHARGED Page 1 of 1 Name Value Range Interpretation Code Description Data Toma rce(s) Supporting Document(s) ID Date Data Source [id number] 04/02/2021 10:19:00 AM EDT [facility] [address] [place] [address] PHONE: [phone] FAX: [phone] Name .................. : JUVE Hawthorne Acct Number.................. : [id number] ROOM. ................. : 103-1 MR Number ................... : [id number] Stay type ............. : O/P Discharge Date......... ... : Admit Date ......... : 03/29/21 Admit Phys .................... : JUANITA-ALAN Date of ....... : 1965 Family Phys ................... : BEVERLY NICOLE Phone .................. : [phone] Age ................................ : 55 Film# .................. .:[id number] Sex ................................. : M Unsigned transcriptions are preliminary reports and do not represent a medical or legal document CT CTA CHEST NON- CORONARY W C [id number] COMPLETE:03/29/21 15:20 58244 Reason(s): right leg swelling shortness of breath [...] CT dose: 1222.2 mGycm [address] [place] [address] [address] [place] [address] PHONE: [phone] FAX: [phone] Name .................. : JUVE Hawthorne Acct Number.................. : [id number] ROOM. ................. : 103-1 MR Number ................... : [id number] Stay type ............. : O/P Discharge Date......... ... : Admit Date ......... : 03/29/21 Admit Phys .......... .......... : COOKIE Date of ....... : 1965 Family Phys ................... : HAVEN RIVERA Phone .................. : [phone] Age ................................ : 55 Film# .................. .:[id number] Sex ................................. : M Unsigned transcriptions are preliminary reports and do not represent a medical or legal document CT CTA CHEST NON- CORONARY W C [id number] COMPLETE:03/29/21 15:20 99646 Reason(s): right leg swelling shortness of breath and chest pain, high d d Contrast agent in mL: 75 Isovue 370 Method of administration: Intravenous Electronically Reviewed and Signed By Ollie Stewart M.D. , 04/02/21 10:19, [facility] Transcribe Initials: DZ , Transcribe Date: 03/29/21 22:38, Dictation Date: Copy for: EMERGENCY DEPT via modem Copy for: 710 MED REC DISCHARGED Page 2 of 2 Name Value Range Interpretation Code Description Data Toma rce(s) Supporting Document(s) ID Date Data Source [id number] 04/01/2021 06:43:00 [place] [address] RESPIRATORY CARE REPORT ==== ---------NAME------- NUMBER SEX AGE ADMIT DISC. XRAY# F/C TYPEPRENTICE DEANNA Hawthorne [id number] 55 03/29/21 03/30/21726022 X6B O/P DATE OF : 1965 M/R# [id number] #: [phone] 103-1 LOCATION: EMERGENCY DEPT EKG 17501 COMP LETE:03/30/21 13:28 [place] [address] PHYSICIAN: COOKIE Name Value Range Interpretation Code Description Data Toma rce(s) Supporting Document(s) ID Date Data Source [id number] 04/01/2021 06:45:[address] [facility] Name Value Range Interpretation Code Description Data Toma rce(s) Supporting Document(s) Creatine kinase.MB [Mass/volume] in Serum or Plasma 4.1 ng/mL 0.0-[address] [facility] ID Date Data Source [id number] 03/30/2021 07:38:[address] [facility] Name Value Range Interpretation Code Description Data Toma rce(s) Supporting Document(s) Magnesium [Mass/volume] in Serum or Plasma 2.2 MG/DL 1.7 - 2.2 [facility] ID Date Data Source [id number] 03/30/2021 07:38:[address] [facility] Name Value Range Interpretation Code Description Data Toma rce(s) Supporting Document(s) CBC W/AUTOMATED DIFF [facility] COMPLETE BLOOD COUNT Leukocytes [#/volume] in Blood by Automated count 6.5 10^3/uL 4.2 - [address] [facility] Erythrocytes [#/volume] in Blood by Automated count 4.64 10^6/uL 4. 50 - 6.30 [facility] Hemoglobin [Mass/volume] in Blood 13.3 g/dL 14.0 - 16.[address] [facility] Hematocrit [Volume Fraction] of Blood by Automated count 41.7 % 4 1.0 - 51.0 [facility] Erythrocyte mean corpuscular volume [Entitic volume] by Auto mated count 89.9 fL 80.0 - 94.0 [facility] Erythrocyte mean corpuscular hemoglobin [Entitic mass] by Automated count 28.7 pg 27.0 - 34.0 [facility] Erythrocyte mean corpuscular hemoglobin concentration [Mass/volume] by Automated count 31.9 g/dL 31.0 - 36.0 [facility] Erythrocyte distribution width [Ratio] by Automated count 15.8 % 11.5 - 14.[address] [facility] Platelets [#/volume] in Blood by Automated count 257 10^3/uL 150 - [address] [facility] Platelet mean volume [Entitic volume] in Blood by Automated count 9.8 fL 7.4 - 10.4 [facility] Neutrophils/100 leukocytes in Blood by Automated count 63.7 % 37. 0 - 80.0 [facility] Lymphocytes/100 leukocytes in Blood by Manual count 20.6 % 25.0 - 40.[address] [facility] Monocytes/100 leukocytes in Blood by Automated count 13.6 % 3.0 - 8.[address] [facility] Eosinophils/100 leukocytes in Blood by Automated count 0.8 % 0.0 - 7.0 [facility] Basophils/100 leukocytes in Blood by Automated count 0.5 % 0.0 - 2.0 [facility] %IG 0.8 % 0.0 - 0.0 [facility] 0.[facility] % 0.0 - 0.0 [facility] al Neutrophils [#/volume] in Blood by Automated count 4.11 10^3/uL 2.00 - 6.90 [facility] Lymphocytes [#/volume] in Blood by Automated count 1.33 10^3/uL 0.60 - 3.40 [facility] Monocytes [#/volume] in Blood by Automated count 0.88 10^3/uL 0.00 - 0.90 [facility] Eosinophils [#/volume] in Blood by Automated count 0.05 10^3/uL 0.00 - 0.70 [facility] Basophils [#/volume] in Blood by Automated count 0.03 10^3/uL 0.00 - 0.20 [facility] #IG 0.05 10^3/uL 0.00 - 0.10 [facility] ospital #NRBC 0.00 10^3/uL 0.00 - 0.00 [facility] ospital MANUAL DIFF NOT INDICATED [facility] RBC MORPH NOT INDICATED [facility] spital ID Date Data Source [id number] 03/30/2021 07:38:[address] [facility] Name Value Range Interpretation Code Description Data Toma rce(s) Supporting Document(s) BASIC METABOLIC PANEL [facility] BASIC METABOLIC PANEL Sodium [Moles/volume] in Serum or Plasma 142 mEq/L 134 - 153 [facility] Potassium [Moles/volume] in Serum or Plasma 4.0 mEq/L 3.6 - 5.0 [facility] Chloride [Moles/volume] in Serum or Plasma 107 mEq/L 98 - 107 [facility] Carbon dioxide, total [Moles/volume] in Serum or Plasma 25 MEQ/L 22 - 30 [facility] Glucose [Mass/volume] in Serum or Plasma 98 MG/DL 70 - 99 [facility] BUN 18 MG/DL 7 - 21 Health system Creatinine [Mass/volume] in Serum or Plasma 1.1 MG/DL 0.7 - 1.5 [facility] BUN/CREAT 16 8 - 27 Health system Calcium [Mass/volume] in Serum or Plasma 8.8 MG/DL 8.4 - 10.2 [facility] Anion gap 3 in Serum or Plasma 10.0 mmol/L 8.0 - 16.0 [facility] AGE 55 yrs [facility] al AFR AMER GFR >60 mL/min [facility] Ho spital NON-AA GFR >60 mL/min [facility] ital Male GFR Inter prentation 20-49 yrs [...] >32 mL/min Normal ID Date Data Source [id number] 03/29/2021 01:56:[address] [facility] [address] [facility] Emergency Department [address] [place] [address] Phone #: ext- [phone] 03/29/2021 13:53 Patient: DEANNA AN Sex: M : 1965 Age: 55yWEIGHT:140.7 kg [...] 20:54 StevenSymptomatic as Kristan Swain RNDefined by CDC) ;(03/28/21) (Not FirstTest) (Hospitalized)(Not ) (NotResident inCongregate CareSetting) (NotEmployed inHealthcare Setting) [address] [facility] Emergency Department [address] [place] [address] Phone #: ext- [phone] 03/29/2021 13:53 Patient: DEANNA AN Sex: M : 1965 Age: 55yTroponin-T STAT 18:19 03/29/2021 20:54 Veronica Saavedra RN;DIAGNOSTIC STUDY ORDERSOrder Description Priority Entered Acknowledged InitialedChest Portable 1 STAT 14:00 03/29/2021 14:18 DorisView Kristan Swain RN(Oxygen?(No)) ; Reason for Study: Chest PainUS Lower Ext STAT 14:01 03/29/2021 14:18 DorisVenous Right Kristan Swain RN(Oxygen?(No)) ; Reason for Study: Pain, Limb, Swelling, LimbCT CTA CHEST STAT 15:20 03/29/2021 15:36 Estefania(NONCOR) W Kristan Nugent RNINC PP ;(Oxygen?(No))(IV?(Yes)) Reason for Study: right leg swelling shortness of breath and chest pain, high d dimer r/o PEMEDICATION/IV/DRIP/FLUID ORDERSOrder Description Priority Entered Acknowledged InitialedToradol IVP 30 mg 14:01 03/29/2021 14:15 Estefania(NOW x1) Kristan Swain RN ;GENERAL ORDERSOrder Description Priority Entered Acknowledged InitialedBlood Pressure 14:00 03/29/2021 14:08 DorisMonitor Kristan Swain RN ;Accounting Intern 14:00 03/29/2021 14:08 Estefania(continuous) Kristan Swain RN ;EKG 14:00 03/29/2021 14:08 Kristan Li RN ;NPO 14:00 03/29/2021 14:08 Kristan Li RN ;Obtain Old EKG 14:00 03/29/2021 14:08 [address]efania [address] [facility] Emergency Department [address] [place] [address] Phone #: ext- [phone] 03/29/2021 13:53 Patient: DEANNA AN Sex: M [...] rce(s) Supporting Document(s) ID Date Data Source [id number] 03/29/2021 01:56:[address] [facility] [address] [facility] Emergency Department [address] [place] [address] Phone #: ext- [phone] 03/29/2021 13:53 Patient: [...] administered: 14:15 03/29/2021 [address] [facility] Emergency Department [address] [place] [address] Phone #: ext- [phone] 03/29/2021 13:53 Patient: DEANNA AN Sex: M : 1965 Age: 55yThe following Medications were prescribed to the patient:None. Name Value Range Interpretation Code Description Data Toma rce(s) Supporting Document(s) ID Date Data Source [id number] 03/29/2021 01:56:[address] [facility] [address] [facility] Emergency Department [address] [place] [address] Phone #: huh- [phone] 03/29/2021 13:53 Patient: DEANNA AN Sex: M : 1965 Age: 55yWeight: 140.7 kgHeight/Length: 68 inBMI: 47.2ALLERGIES: adhesive talpe, Codeine Phosphate, Latex Date/Time Medication Administered Medication OrderedGiven TORADOL [IVP] (KETOROLAC Toradol IVP 30 mg (NOW x1)14:15 03/29/2021 TROMETHAMINE)Estefania Guerin RN Dose: 30 mg IVP Site: #1 right Name Value Range Interpretation Code Description Data Toma rce(s) Supporting Document(s) ID Date Data Source [id number] 03/29/2021 01:56:[address] [facility] [address] 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 1 Clinical Report - Nurses [facility] Emergency Department [address] [place] [address] Phone #: ext- [phone] 03/29/2021 13:53 Patient: DEANNA AN Marine Sex: M : 1965 Age: 55yTRIAGEArrived by EMS. Historian: patient.Triage time: 13:52 03/29/2021. Acuity: LEVEL 3.Chief Complaint: CHEST PAIN.13:52 03/29/21. Alert. No acute distress.Onset. (10 am). 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 (Seen here for right foot ankle pain, splinted for possiblefracture to follow up with Ortho. Seen at [facility] x 2 left AMA due [...] mcg, daily. 2 Clinical Report - Nurses [facility] Emergency De partment [address] [place] [address] Phone #: ext- [phone] 03/29/2021 13:53 Patient: DEANNA AN [facility]#: [id number] Sex: M : 1965 Age: 55yMetoprolol Tartrate [...] - duplicateHeart bypass. --16:47 03/27/20 Estefania Guerin RN.Kokjecd64:52 03/29/21.PAST MEDICAL HX: Immunizations: up-to-date.SOCIAL HX: Former [...] had thoughts 3 Clinical Report - Nurses [facility] Emergency Department [address] [place] [address] Phone #: ext- [phone] 03/29/2021 13:53 ---- Patient: DEANNA AN Sex: [...] mL saline. --13:55 03/29/21 Estefania Guerin RN.PHYSICAL KJSUDPPFAL48:00 03/29/21. Ambulatory to room.GENERAL / NEURO / [...] 03/29/21 Estefania Guerin RN.NURSING PROGRESS NOTES13:52 03/29/21. groundwater monitoring technician, NIBP monitor and pulse oximeter placed on patient; director cardiac-Lead II; monitor alarms on. Patient gowned. Head of bed elevated. Two patient identifiers checked.Call light placed in reach. Side rails up x 2. Bed placed in lowest position. Brakes of bed on. Patientready for evaluation- ED physician notified. --14:05 03/29/21 Estefania Guerin RN 4 Clinical Report - Nurses [facility] Emergency Department [address] [place] [address] Phone #: ext- [phone] 03/29/2021 13:53 [id number] Sex: M : 1965 Age: 55y13:55 03/29/21. EKG time: (13:55 03/29/2021). EKG was ordered, performed by a nurse and shown [facility] ED physician. --14:05 03/29/21 Estefania Guerin RN14:08 03/29/21. Patient ID band checked for patient name and birthdate. Blood samples drawn by lab perprotocol. --14:08 03/29/21 Estefania Guerin RN14:15 03/29/2021 Toradol (Ketorolac Tromethamine) [...] Cardiac rhythm: normal sinus rhythm. --14:20 03/29/21 Estefania Guerin RN14:35 03/29/21. Portable chest x-ray completed. (done in room 6). --14:35 03/29/21 LEXI Poon:45 03/29/21. BP: 137/100. MAP: 112. HR: 77. RR: 22. O2 saturation: 97%. Pain level now: 4/10.--15:39 03/29/21 LEXI Poon:45 03/29/2021 Toradol IVP Response: no adverse reaction pain is improving. Symptoms have improvedthe patient feels better. --15:42 03/29/21 Estefania Guerin RN15:00 03/29/21. Reassessment after medication administered. No adverse reaction. Pain still present butimproving. He is sleeping. ( Awakens easily, respiration easy, no distress).CVS: Cardiac rhythm: normal sinus rhythm; (70). --15:41 03/29/21 Estefania Guerin RN15:00 03/29/21. BP: 133/81. MAP: 98. HR: 71. RR: 22. O2 saturation: 99% on room air. Pain level now:01/12. --15:41 03/29/21 Estefania Guerin RN15:15 03/29/21. BP: 137/87. MAP: 103. HR: 76. RR: 20. O2 saturation: 97%. Pain level now: 01/12.--15:43 03/29/21 Estefania Guerin RN15:30 03/29/21. BP: 146/86. MAP: 106. HR: 80. RR: 20. O2 saturation: 96% on room air. Pain level now:01/12. --15:43 03/29/21 Estefania Guerin RN15:45 03/29/21.Rounding: Pain: assessed pain level (sleeping, awakens [...] Guerin RN 5 Clinical Report - Nurses [facility] Emergency Dep artment [address] [place] [address] Phone #: ext- [phone] 03/29/2021 13:53 Patient: [...] Guerin RN 16:03 03/29/21. Patient transported to [place] by wheelchair with mask and process controls technician. --16:08 03/29/21 Estefania Guerin RN 16:15 03/29/21. Patient returned from CT by wheelchair with mask and process controls technician. --17:07 03/29/21 Estefania Guerin RN 17:00 03/29/21. [...] RN 17:52 03/29/21. ( Hospitalist, Jerrica Poe ORTHOTIC FINISH GRINDING TECHNICIAN in to examine patient for admission). [...] 97% on room air. Pain level now: 01/12. --19:08 03/29/21 Estefania Guerin RN 19:00 03/29/21. BP: 135/85. MAP: 101. HR: 59. RR: 17. O2 saturation: 97% on room air. Pain level now : 01/12. --19:09 03/29/21 Estefania Guerin RN 19:05 03/29/21. Care transferred and report given (Lesvia Martin RN). --19:03/29/21 Estefania Guerin RN.DISPOSITION / DISCHARGE Report was given to a nurse via a phone call. Report included information regarding patient's treatment, current vital signs and abnormal labs. Report included treatment information regarding medications given 6 Clinical Report - Nurses [facility] Emergency Department [address] [place] [address] Phone #: ext- [phone] 03/29/2021 13:53 Patient: [...] Temp: 97.6 F (oral). Pain level now: . --20:53 03/29/21 Richard Martin RN Departure time: 20:35 03/29/2021. --20:53 03/29/21 Richard Martin RN.Locked/Released at 03/29/2021 20:54 by Richard Martin RN Name Value Range Interpretation Code Description Data Toma rce(s) Supporting Document(s) ID Date Data Source [id number] 03/29/2021 01:56:[address] [facility] 1 Clinical Report - Physicians/Mid Levels [facility] Emergency Department [address] [place] [address] Phone #: ext- [phone] 03/29/2021 13:53 Patient: DEANNA AN Sex: M : 1965 Age: 55y Time [...] right lower extremity . he went to [facility] yesterday but let without being [...] Medications: 2 Clinical Report - Physicians/Mid Levels [facility] Emergency Department [address] [place] [address] Phone #: ext- [phone] 03/29/2021 13:53 Patient: DEANNA AN Sex: M : 1965 Age: 55y Atorvastatin [...] Normal 3 Clinical Report - Physicians/Mid Levels [facility] Emergency Department [address] [place] [address] Phone #: ext- [phone] 03/29/2021 13:53 Patient: DEANNA AN Sex: M [...] Pain, LimbTRANSPORTATION: S IV? O2? Oxygen?(No) Room: [facility] Diff: (LEONARDA: 03/29/2021 14:10) ( OhgRcvd 03/29/2021 14:54) Final results Test Result Flag [...] 8) 4 Clinical Report - Physicians/Mid Levels [facility] Emergency Department [address] [place] [address] Phone #: ext- [phone] 03/29/2021 13:53 Patient: [...] Male GFR Interprentation 20-49 yrs >60 mL/min Etpibb99-34 yrs >56 mL/min Normal 60-69 yrs >49 mL/min Normal 70-79yrs>42 mL/min Normal 80 and above >35 mL/min Normal Female GFRInterpretation 20-39 yrs >60 mL/min Normal 40-49 yrs >58 mL/minNormal 50-59 yrs >51 mL/min Normal 60-69 yrs >45 mL/min Sdvwea19-70 yrs >39 mL/min Normal 80 and above >32 mL/min NormalLipase: (LEONARDA: 03/29/2021 14:10) ( [facility] 03/29/2021 14:48) Final results Test Result Flag Units (Reference) LIPASE 16 U/L (13 - 60)Troponin-T: (LEONARDA: 03/29/2021 14:10) ( [facility] 03/29/2021 14:38) Final results Test Result Flag Units (Reference) TROPONIN T <0.01 NG/ML (0.00 - 0.10) TROPONIN T0.1 ng/ml Recommended as the clinical threshold value forTroponin T.D-Dimer: (LEONARDA: 03/29/2021 14:10) ( [facility] 03/29/2021 14:36) Final results Test Result Flag Units (Reference) D-DIMER QUANT 1.41 H ug/mL (0.27 - 0.50) 5 Clinical Report - Physicians/Mid Levels [facility] Emergency Department [address] [place] [address] Phone #: ext- [phone] 03/29/2021 13:53 -- Patient: DEANNA AN Sex: M : 1965 Age: 55y PT/INR: (LEONARDA: 03/29/2021 14:10) ( [facility] 03/29/2021 14:36) Final results Test Result Flag Units (Reference) PROTIME 13.2 SECONDS (11.0 - 15.5) INR 0.99 (0.93 - 1.23) \\BLDo\\INR INTERPRETATION\\BLDx\\ Therapeutic range for Coumadin and related oral anticoagulants. -International Normalized Ratio (INR): 2.0 - 3.0 for Venous Thrombosis, Pulmonary Embolus, Tissue heart valves, Acute OK, Atrial Fibrillation, Valvular heart disease and recurrent [...] 03/29/2021 23:36) 6Clinical Report - Physicians/Mid Levels [facility] Emergency Department [address] [place] [address] Phone #: ext- [phone] 03/29/2021 13:53 Patient: DEANNA AN Sex: M : 1965 Age: 55y Name Value Range Interpretation Code Description Data Toma rce(s) Supporting Document(s) ID Date Data Source [id number] 03/29/2021 07:08:[address] [facility] Name Value Range Interpretation Code Description Data Toma rce(s) Supporting Document(s) TROPONIN T <0.01 NG/ML 0.00 - 0.10 [facility] ospital TROPONIN T0.1 ng/ml Recommended as the c linical threshold value forTroponin T. ID Date Data Source [id number] 03/29/2021 05:50:00 PM EDT [facility] Name Value Range Interpretation Code Description Data Toma rce(s) Supporting Document(s) COVID19 Case rprt NOT DETECTED [facility] This lab was ordered by [facility] and [facility] ID Date Data Source [id number] 03/29/2021 06:37:[address] [facility] NOT DETECTEDNOT DETECTED{ PROC EDURAL CONTROL VALID KIT LOT # _[id number] 03/29/21.DW . KIT EXP DATE _[id number] 03/29/21.DW . NORMAL RANGE IS NOT DETECTEDNEGATIVE [...] rce(s) Supporting Document(s) ID Date Data Source [id number] 03/29/2021 08:17:[address] [facility] Name Value Range Interpretation Code Description Data Toma rce(s) Supporting Document(s) [facility] Cholesterol [Mass/volume] in Serum or Plasma 146 MG/DL 131 - 200 [facility] Deprecated Triglyceride [Mass/volume] in Serum or Plasma 114 MG/DL 3 5 - 160 [facility] HDL 49 MG/DL 29 - 86 [facility] Cholesterol in LDL [Mass/volume] in Serum or Plasma by Direc t assay 85 mg/dL 65 - 175 [facility] Cholesterol.total/Cholesterol in HDL [Mass Ratio] in Serum o r Plasma 3.0 3.4 - 4.[address] [facility] LDL/HDL 1.73 1.00 - 3.55 [facility] ital CVE RISK CHOL/HDL LDL/HDLMEN: 1/2 AVERAGE 3.43 1.00 AVERAGE 4.97 3.55 2X AVERAGE 9.55 6.25 3X AVERAGE 23.99 7.99WOMEN: 1/2 AVERAGE 3.27 1.47 AVERAGE 4.44 3.22 2X AVERAGE 7.05 5.03 3X AVERAGE 11.04 6.14 ID Date Data Source [id number] 03/29/2021 08:17:[address] [facility] Name Value Range Interpretation Code Description Data Toma rce(s) Supporting Document(s) Hemoglobin A1c/Hemoglobin.total in Blood 6.2 % 4.4 - 6.[address] [facility] {A1]{HB] ID Date Data Source [id number] 03/29/2021 05:43:[address] [facility] Name Value Range Interpretation Code Description Data Toma rce(s) Supporting Document(s) BNP 162 PG/ML 0 - 125 H [facility] al ID Date Data Source [id number] 03/29/2021 02:53:[address] [facility] Name Value Range Interpretation Code Description Data Toma rce(s) Supporting Document(s) CBC W/AUTOMATED DIFF [facility] COMPLETE BLOOD COUNT Leukocytes [#/volume] in Blood by Automated count 10.2 10^3/uL 4.2 - 11.0 [facility] Erythrocytes [#/volume] in Blood by Automated count 4.58 10^6/uL 4. 50 - 6.30 [facility] Hemoglobin [Mass/volume] in Blood 13.4 g/dL 14.0 - 16.[address] [facility] Hematocrit [Volume Fraction] of Blood by Automated count 41.5 % 4 1.0 - 51.0 [facility] Erythrocyte mean corpuscular volume [Entitic volume] by Auto mated count 90.6 fL 80.0 - 94.0 [facility] Erythrocyte mean corpuscular hemoglobin [Entitic mass] by Automated count 29.3 pg 27.0 - 34.0 [facility] Erythrocyte mean corpuscular hemoglobin concentration [Mass/volume] by Automated count 32.3 g/dL 31.0 - 36.0 [facility] Erythrocyte distribution width [Ratio] by Automated count 15.9 % 11.5 - 14.[address] [facility] Platelets [#/volume] in Blood by Automated count 255 10^3/uL 150 - [address] [facility] Platelet mean volume [Entitic volume] in Blood by Automated count 9.6 fL 7.4 - 10.4 [facility] Neutrophils/100 leukocytes in Blood by Automated count 74.6 % 37. 0 - 80.0 [facility] Lymphocytes/100 leukocytes in Blood by Manual count 12.7 % 25.0 - 40.[address] [facility] Monocytes/100 leukocytes in Blood by Automated count 11.1 % 3.0 - 8.[address] [facility] Eosinophils/100 leukocytes in Blood by Automated count 0.2 % 0.0 - 7.0 [facility] Basophils/100 leukocytes in Blood by Automated count 0.5 % 0.0 - 2.0 [facility] %IG 0.9 % 0.0 - 0.0 H [facility] al %NRBC 0.0 % 0.0 - 0.0 [facility] al Neutrophils [#/volume] in Blood by Automated count 7.62 10^3/uL 2.00 - 6.[address] [facility] Lymphocytes [#/volume] in Blood by Automated count 1.30 10^3/uL 0.60 - 3.40 [facility] Monocytes [#/volume] in Blood by Automated count 1.13 10^3/uL 0.00 - 0.[address] [facility] Eosinophils [#/volume] in Blood by Automated count 0.02 10^3/uL 0.00 - 0.70 [facility] Basophils [#/volume] in Blood by Automated count 0.05 10^3/uL 0.00 - 0.20 [facility] #IG 0.09 10^3/uL 0.00 - 0.10 [facility] #NRBC 0.00 10^3/uL 0.00 - 0.00 [facility] MANUAL DIFF SEE BELOW [facility] ital Segmented neutrophils/100 leukocytes in Blood by Manual count 75 % 37 - 80 [facility] BAND 2 % 0 - 5 [facility] al %LYMPH 11 % 25 - 40 L [facility] al %MONO 12 % 3 - 8 H [facility] Nucleated erythrocytes/100 erythrocytes in Blood by Manual count 1 % [facility] RBC MORPH SEE BELOW [facility] { SICKLE CELL (NORMAL: NONE SEEN ) Platelet adequacy [Presence] in Blood by Light microscopy NORMAL NORMAL: NORMAL [facility] COMMENT: _PLATELET_CLUMPS_SEEN 03/29/21.1453.JSK. ID Date Data Source [id number] 03/29/2021 02:50:[address] [facility] Name Value Range Interpretation Code Description Data Toma rce(s) Supporting Document(s) COMPREHENSIVE METABOLIC PANEL [facility] COMPREHENSIVE METABOLIC PANEL Sodium [Moles/volume] in Serum or Plasma 140 mEq/L 134 - 153 [facility] Potassium [Moles/volume] in Serum or Plasma 4.2 mEq/L 3.6 - 5.0 [facility] Chloride [Moles/volume] in Serum or Plasma 104 mEq/L 98 - 107 [facility] Carbon dioxide, total [Moles/volume] in Serum or Plasma 26 MEQ/L 22 - 30 [facility] Glucose [Mass/volume] in Serum or Plasma 104 MG/DL 70 - [address] [facility] BUN 17 MG/DL 7 - 21 Health system Creatinine [Mass/volume] in Serum or Plasma 1.1 MG/DL 0.7 - 1.5 [facility] BUN/CREAT 15 8 - 27 [facility] al Protein [Mass/volume] in Serum or Plasma 6.6 G/DL 6.3 - 8.2 [facility] Albumin [Mass/volume] in Serum or Plasma 4.3 G/DL 3.9 - 5.0 [facility] Globulin [Mass/volume] in Serum by calculation 2.3 GM/DL 2.4 - 3.[address] [facility] A/G RATIO 1.9 0.8 - 2.0 Health system Calcium [Mass/volume] in Serum or Plasma 9.6 MG/DL 8.4 - 10.2 [facility] Bilirubin.total [Mass/volume] in Serum or Plasma <0.7 MG/DL 0.2 - 1.3 [facility] Alkaline phosphatase [Enzymatic activity/volume] in Serum or Plasma 125 U/L 38 - 126 [facility] Aspartate aminotransferase [Enzymatic activity/volume] in Serum or Plasma 21 U/L 5 - 40 [facility] Alanine aminotransferase [Enzymatic activity/volume] in Seru m or Plasma 19 U/L 7 - 56 [facility] Anion gap 3 in Serum or Plasma 10.0 mmol/L 8.0 - 16.0 [facility] AGE 55 yrs [facility] al NON-AA GFR >60 mL/min [facility] ital AFR AMER GFR >60 mL/min [facility] Ho spital Male GFR In terprentation 20-49 [...] >32 mL/min Normal ID Date Data Source [id number] 03/29/2021 02:48:[address] [facility] Name Value Range Interpretation Code Description Data Toma rce(s) Supporting Document(s) Lipase [Enzymatic activity/volume] in Serum or Plasma 16 U/L 13 - 60 [facility] ID Date Data Source [id number] 03/29/2021 02:38:[address] [facility] Name Value Range Interpretation Code Description Data Toma rce(s) Supporting Document(s) TROPONIN T <0.01 NG/ML 0.00 - 0.10 [facility]ital TROPONIN T0.1 ng/ml Recommended as the c linical threshold value forTroponin T. ID Date Data Source [id number] 03/29/2021 02:36:[address] [facility] Name Value Range Interpretation Code Description Data Toma rce(s) Supporting Document(s) Fibrin D-dimer FEU [Mass/volume] in Platelet poor plasma 1.41 ug /mL 0.27 - 0.[address] [facility] ID Date Data Source [id number] 03/29/2021 02:36:[address] [facility] Name Value Range Interpretation Code Description Data Toma rce(s) Supporting Document(s) Prothrombin time (PT) 13.2 SECONDS 11.0 - 15.5 [facility] INR in Platelet poor plasma by Coagulation assay 0.99 0.93 - 1. 23 [facility] \\BLDo\\INR INTERPRETATION\\BLDx\\ Therapeutic range for Coumadin and related oral anticoagulants. - International Normalized Ratio (INR): 2.0 - 3.0 for Venous Thrombosis, Pulmonary Embolus, Tissue heart valves, Acute OK, Atrial Fibrillation, Valvular heart disease and recurrent Systemic Embolism. -International Normalized Ratio (INR): 2.5 - 3.5 for Mechanical Prosthetic valve. ID Date Data Source [id number] 03/26/2021 10:18:00 AM EDT [facility] [place] [address] PHONE: [phone] FAX: [phone] Name .................. : JUVE Hawthorne Acct Number.................. : [id number] ROOM. ................. : [facility] MR Number ................... : [id number] Stay type ............. : E/R Discharge Date......... ... : 03/22/21 Admit Date ......... : 03/22/21 Admit Phys .................... : COONEYNORM Date of ....... : 1965 Family Phys ................... : OROURKE NICOLE Phone .................. : [phone] Age ................................ : 55 Film# .................. .:[id number] Sex ................................. : M Unsigned transcriptions are preliminary reports and do not represent a medical or legal document ANKLE AP & LATERAL RT [id number] COMPLETE:03/22/21 17:38 D [id number] Reason(s): Pain RIGHT ANKLE X-RAY: INDICATION: Pain. [...] By Ollie Stewart M.D. , 03/26/21 10:18, [place] Transcribe Initials: DZ , Transcribe Date: 03/22/21 23:06, Dictation Date: Copy for: EMERGENCY DEPT via modem Copy for: 710 MED REC DISCHARGED Page 1 of 1 Name Value Range Interpretation Code Description Data Toma rce(s) Supporting Document(s) ID Date Data Source [id number] 03/26/2021 10:18:00 AM EDT [facility] [address] [place] [address] PHONE: [phone] FAX: [phone] Name .................. : JUVE Hawthorne Acct Number.................. : [id number] ROOM. ................. : [address] Number ................... : [id number] Stay type ............. : E/R Discharge Date......... ... : 03/22/21 Admit Date ......... : 03/22/21 Admit Phys .................... : COONEYNORM Date of ....... : 1965 Family Phys ................... : OROURKE NICOLE Phone .................. : [phone] Age ................................ : 55 Film# .................. .:[id number] Sex ................................. : M Unsigned transcriptions are preliminary reports and do not represent a medical or legal document FOOT COMPLETE-3 OR MORE VW RT [id number] COMPLETE:03/22/21 17:38 JLD [id number] Reason(s): Pain RIGHT FOOT X-RAY: INDICATION: Pain. [...] Dictation Date: Copy for: EMERGENCY DEPT via [facility] Copy for: 710 MED REC DISCHARGED Page 1 of 1 Name Value Range Interpretation Code Description Data Toma rce(s) Supporting Document(s) ID Date Data Source [id number] 03/22/2021 04:02:[address] [facility] [address] [facility] Emergency Department [address] [place] [address] Phone #: ext- [phone] 03/22/2021 16:01 Patient: DEANNA AN Sex: M : 1965 Age: 55yWEIGHT:140.6 kg (S) HEIGHT:68 inches (S) BMI:47.1ALLERGIES: adhesive talpe, Codeine Phosphate, LatexCHIEF COMPLAINT: swelling, painDIAGNOSIS: Fracture of ankleLAB ORDERSOrder Description Priority Entered Acknowledged InitialedDIAGNOSTIC STUDY ORDERSOrder Description Priority Entered Acknowledged InitialedFoot Complete STAT 16:21 03/22/2021 16:27 Right Kristin Corbin Norma MD; Chuck Moise(Oxygen?(No)) Reason for Study: Pain, Trauma/InjuryAnkle AP And LAT STAT 16:21 03/22/2021 16:27 Right Kristin Corbin Norma MD; Chuck Moise(Oxygen?(No)) Reason for Study: Pain, Trauma/InjuryMEDICATION/IV/DRIP/FLUID ORDERSOrder Description Priority Entered Acknowledged InitialedGENERAL ORDERSOrder Description Priority Entered Acknowledged Initialed[Electronically signed by Deborah Fernández R.N. (18:03/22/2021)][Electronically signed by Yohana Cason MD (00:47 03/23/2021)][Electronically locked by Deborah Fernández R.N. (03/22/2021)] Name Value Range Interpretation Code Description Data Toma rce(s) Supporting Document(s) ID Date Data Source [id number] 03/22/2021 04:02:[address] [facility] [address] [facility] Emergency Department [address] [place] [address] Phone #: ext- [phone] 03/22/2021 16:01 Patient: [...] Home Medication information: 2 Medication Reconciliation Report [facility] Emergency Department [address] [place] [address] Phone #: ext- [phone] 03/22/2021 16:01 Patient: DEANNA AN Sex: M : 1965 Age: 55ypatientThe following Medications were given to the patient in the Emergency Department:None.The following Medications were prescribed to the patient:None. Name Value Range Interpretation Code Description Data Toma rce(s) Supporting Document(s) ID Date Data Source [id number] 03/22/2021 04:02:[address] [facility] [address] [facility] Emergency Department [address] [place] [address] Phone #: ext [phone] 03/22/2021 16:01 Patient: DEANNA AN Sex: M : 1965 Age: 55yWeight: 140.6 kgHeight/Length: 68 inBMI: 47.1ALLERGIES: adhesive talpe, Codeine Phosphate, LatexDate/Time Medication Administered Medication Ordered Name Value Range Interpretation Code Description Data Toma rce(s) Supporting Document(s) ID Date Data Source [id number] 03/22/2021 04:02:[address] [facility] [address] [facility] Emergency Department [address] [place] [address] Phone #: ext- [phone] 03/22/2021 16:01 Patient: DEANNA AN [facility]#: [id number] Sex: M : 1965 Age: 55ysprain right ankle.INSTRUCTIONSUse crutches. Wear splint. You may walk and bear weight as tolerated.(Please take tylenol and motrin for pain. please follow up with your credit compliance officer. use crutches as instructed.return if worse or [...] by patient. ADDITIONAL INFORMATION [address] [facility] Emergency Department [address] [place] [address] Phone #: ext- [phone] 03/22/2021 16:01 Patient: [...] next 2 to [address] [facility] Emergency Department [address] [place] [address] Phone #: ext- [phone] 03/22/2021 16:01 Patient: [...] splint gets wet, dry it with a wheelchair driver on a cool setting. You may use [id number] pain medicine to control pain, unless another [...] cast or splint develops cracks or breaks [id number] [employer]. [address] [place] [address]228. All rights reserved. This information is not intended as asubstitute for professional medical care. Always follow your healthcare professional's instructions. You have been given the following additional information: Ankle Fracture [address] [facility] Emergency Department [address] [place] [address] Phone #: ext- [phone] 03/22/2021 16:01 Patient: DEANNA AN Sex: M : 1965 Age: 55yYou may walk and bear weight as tolerated.(Electronically signed by Yohana Cason MD 03/23/2021 00:47) Name Value Range Interpretation Code Description Data Toma rce(s) Supporting Document(s) ID Date Data Source [id number] 03/22/2021 04:02:[address] [facility] 1 Clinical Report - Nurses [facility] Emergency Department [address] [place] [address] Phone #: ncm- [phone] 03/22/2021 16:01 Patient: DEANNA AN Sex: M [...] ft was so swollen. He waited in [facility] waiting room for hrs prior to coming here.). He has had swelling, redness and trouble walking. 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 SEPSIS SCREEN: SIRS SCREEN NEGATIVE. SEPSIS [...] R.N. Medications Omeprazole Oral 40 mg, daily. --16:03/22/21 Marisela Bobo R.N. Topiramate Oral (Tablet 50 mg), daily. --16:03/22/21 Marisela Bobo R.N. Topiramate Oral (Tablet 25 [...] Bobo R.N. 2 Clinical Report - Nurses [facility] Emergency Department [address] [place] [address] Phone #: ext- [phone] 03/22/2021 16:01 [id number] Sex: M : 1965 Age: 55yGabapentin Oral (Tablet 600 mg). --16:24 03/22/21 Marisela Bobo R.N.Levothyroxine Sodium Oral 25 mcg, daily. --16:24 03/22/21 Marisela Bobo R.N.Metoprolol Tartrate Oral 25 mg, daily. --16:03/22/21 Marisela Bobo R.N.Montelukast Sodium Oral (Tablet 10 mg). --16:03/22/21 Marisela Bobo R.N.Allergiesadhesive talpe.Codeine Phosphate.(hives)Latex. --16:16 03/22/21 [...] impairments noted. 3 Clinical Report - Nurses [facility] Emergency Department [address] [place] [address] Phone #: ext- [phone] 03/22/2021 16:01 [facility]: [id number] Sex: M : 1965 Age: 55y LEARNING [...] Patient transported to radiology by wheelchair with process controls technician. --16:34 03/22/21 Chuck Corbin R.N. 16:41 03/22/21. Patient returned from radiology by wheelchair with process controls technician. --16:41 03/22/21 Chuck Corbin R.N. Patient fit with new crutches. Crutch training performed by nurse; the patient demonstrated proper use. --18:24 03/22/21 Deborah Fernández R.N.DISPOSITION / DISCHARGE Condition at departure: improved. No learning barriers present. Reviewed crutch walking, splint care and rest, ice, compression and elevation instructions. Patient verbalized understanding. Written instructions provided in Bermudian. The patient was discharged home and u naccompanied at time of discharge. He left on crutches and via taxi. 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 --18:25 03/22/21 Deborah Fernández R.N. 4 Clinical Report - Nurses [facility] Emergency Department [address] [place] [address] Phone #: ext- [phone] 03/22/2021 16:01 Patient: DEANNA AN Sex: M [...] rce(s) Supporting Document(s) ID Date Data Source [id number] 03/22/2021 04:02:[address] [facility] 1 Clinical Report - Physicians/Mid Levels [facility] Emergency Department [address] [place] [address] Phone #: ext- [phone] 03/22/2021 16:01 [id number] Sex: M : 1965 Age: 55y Arrived- [...] ft was so swollen. He waited in [facility] waiting room for hrs prior [...] 07/14. 2 Clinical Report - Physicians/Mid Levels [facility] Emergency Department [address] [place] [address] Phone #: ext- [phone] 03/22/2021 16:01 Patient: DEANNA AN Sex: M [...] Exam FOOT COMPLETE-3 OR MORE VW RT [facility] [address] [place] [address] PHONE: [phone] FAX: [phone] Name .................. : JUVE Hawthorne Acct Number.................. : [id number] ROOM. ................. : VT-30 Number .. ................. : [id number] Stay type ............. : E/R Discharge Date......... ... : 03/22/21 Admit Date ......... : 03/22/21 Admit Phys .................... : COONEYNORM Date of ....... : 1965 Family Phys ................... : HAVEN RIVERA Phone .................. : [phone] Age ................................ : 55 Film# .................. .:[id number] Sex ................................. : M Unsigned transcriptions are preliminary reports and do not represent a medical or legal document FOOT COMPLETE-3 OR MORE VW RT [id number] COMPLETE:03/22/21 17:38 JLD [id number] Reason(s): Pain Trauma/Injury RIGHT FOOT X-RAY: INDICATION: Pain. FINDINGS/IMPRESSION: Postoperative changes are noted in the second to with fusion across the PIP joint. There is no evidence of acute hardware complication. No fracture or dislocation is appreciated. No significant degenerative change. 3 Clinical Report - Physicians/Mid Levels [facility] Emergency Department [address] [place] [address] Phone #: ext- [phone] 03/22/2021 16:01 Patient: JUVE, DEANNA Hawthorne Sex: M : 1965 Age: 55y Electronically Reviewed and Signed By DCTNAME , SIGNDATE, NHY Transcribe Initials: DRE , Transcribe Date: 03/22/21 23:08, Dictation Date: <<REPDIST>> Page 1 of 1Ankle AP And LAT Right: (LEONARDA: 03/22/2021 16:21) ( MsgRcvd 03/22/2021 23:08) In ProgressANKLE APReason(s): PainTRANSPORTATION: WC IV? O2? Oxygen?(No) Room: ED Exam ANKLE AP //T// [place] [address] PHONE: [phone] FAX: [phone] Name .................. : JUVE Hawthorne Acct Number.................. : [id number] ROOM. ................. : VT-30 MR Number ................... : [id number] Stay type ............. : E/R Discharge Date......... ... : 03/22/21 Admit Date ......... : 03/22/21 Admit Phys .................... : COONEYNORM Date of ....... : 1965 Family Phys ................... : Thwapr Phone .................. : [phone] Age ................................ : 55 Film# .................. .:[id number] Sex ................................. : M Unsigned transcriptions are [...] limits evaluation. Electronically Reviewed and Signed By HEATHER SIGNDASHEMAR CANALES 4 Clinical Report - Physicians/Mid Levels [facility] Emergency Department [address] [place] [address] Phone #: nev- [phone] 03/22/2021 16:01 Patient: DEANNA AN Sex: M [...] the boot he was given by his credit compliance officer does not fit. xray shows a possible [...] for pain. please follow up with your credit compliance officer. use crutches as instructed. return if worse [...] daily. 5 Clinical Report - Physicians/Mid Levels [facility] Emergency Department [address] [place] [address] Phone #: ext- [phone] 03/22/2021 16:01 [id number] Sex: M : 1965 Age: 55y busPIRone [...] rce(s) Supporting Document(s) ID Date Data Source [id number] 03/09/2021 02:54:00 AM EDT [facility] Name Value Range Interpretation Code Description Data Toma rce(s) Supporting Document(s) SARS coronavirus 2 RNA [Presence] in Res piratory specimen by KIRK with probe detection NEGATIVE [facility] This lab was ordered by [facility] a nd reported by [facility]. ID Date Data Source [id number] 02/28/2021 06:02:00 PM EDT [facility] Name Value Range Interpretation Code Description Data Toma rce(s) Supporting Document(s) SARS coronavirus 2 RNA [Presence] in Res piratory specimen by KIRK with probe detection NEGATIVE [facility] This lab was ordered by [facility] a nd reported by [facility]. ID Date Data Source [id number] 01/17/2021 09:30:00 AM EDT [facility] Name Value Range Interpretation Code Description Data Toma rce(s) Supporting Document(s) SARS-CoV-2 (COVID-19) RNA [Presence] in Respiratory specimen by KIRK with probe detection Not Detected [facility] This lab was ordered by [facility] and reported by [facility]. ID Date Data Source [id number] 11/20/2020 12:00:00 AM EST eCW1 ([facility]) Name Value Range Interpretation Code Description Data Toma rce(s) Supporting Document(s) 24.0 30.0-100.0 eCW1 ([facility]) ID Date Data Source Basic Metabolic Profile (BMP) 11/20/2020 12:00:00 AM EST [facility]CW [facility] Name Value Range Interpretation Code Description Data Toma rce(s) Supporting Document(s) 81 70-100 eCW1 ([facility]) 1.29 0.70-1.30 eCW1 ([facility]) 143 136-145 eCW1 ([facility]) > 60.0 >56 eCW1 ([facility]) 10 7-18 eCW1 ([facility]) 109 98-107 eCW1 ([facility]) 4.4 3.5-5.1 eCW1 ([facility]) 29 21-32 eCW1 ([facility]) 9.1 8.5-10.1 eCW1 ([facility]) ID Date Data Source FREE T4 & TSH PANEL 11/20/2020 12:00:00 AM EST eCW1 ([facility]) Name Value Range Interpretation Code Description Data Toma rce(s) Supporting Document(s) 2.460 0.358-3.740 THYROID STIMULATING HORM ONE eCW1 ([facility]) 0.71 0.76-1.46 FREE T4 eCW1 ([facility]) ID Date Data Source [id number] 11/05/2020 09:50:00 AM EST [facility] ([facility]) Name Value Range Interpretation Code Description Data Toma rce(s) Supporting Document(s) Laboratory test finding (navigational concept) Laboratory test result [facility] ([facility]) ID Date Data Source [id number] 07/21/2020 11:01:24 PM EDT [facility] Name Value Range Interpretation Code Description Data Toma rce(s) Supporting Document(s) &PDF [facility] EFNTKo6tGbSKThLs61/AUXkvPDUez6FqZLxbRFc8XIohDZAvE1ZxbFpoHKHSAG5QPCRNLMPNPj5KWLup 0b3 MmLFKxCkLMlFI8KC9oKOUnzgNfvfV0mT4uKD1JVRP+Iy7FZT4nl5AkOFw8LMIpe8FcOMgdCKx9J3GpoZ FknsKhFrwhnWHAFXNhUNXyL4mhgqh5vIFlXNI4Ql7IXpEnp0KmPZOsYKlChs0tO9/TWBB+X2n/w5H2YY vCueArhsmfwVNLtLi2jFuUGvFART5icBNl7IELh02l 2bPjTBktsjFfngJ4v1+Z+uO7vtDBAVq//5lGmBTRbdqg9gNRfveKjC+/votog9uQ5l/GxaLKDp47vbXM CWpvIe9Xr/MK8OkdkW1IhXS+PzpEKAnYg1Y8aS+oU2w1SjvgWvjapFaVqpywK1YHY6a9qN9TLSl81rl8 a5qZry1HA840q0RTLlrs00689gjVt06A9+s7zx6p25 [file] ICAgICAgICAgICAgICAgICAgICAgICAgICAgICAgICAgICAgICAgICAgICAgICAgICAgICAgICAgICAg ICAgICAgICAgICAgICAgICAgICAgICAgDQogICAgICAgICAgICAgICAgICAgICAgICAgICAgICAgICAg ICAgICAgICAgICAgICAgICAgICAgICAgICAgICAgIC AgICAgICAgICAgICAgICAgICAgICAgICAgICAgICAgICAgDQogICAgICAgICAgICAgICAgICAgICAgIC AgICAgICAgICAgICAgICAgICAgICAgICAgICAgICAgICAgICAgICAgICAgICAgICAgICAgICAgICAgIC AgICAgICAgICAgICAgICAgDQogICAgICAgICAgICAg ICAgICAgICAgICAgICAgICAgICAgICAgICAgICAgICAgICAgICAgICAgICAgICAgICAgICAgICAgICAg ICAgICAgICAgICAgICAgICAgICAgICAgICAgDQogICAgICAgICAgICAgICAgICAgICAgICAgICAgICAg ICAgICAgICAgICAgICAgICAgICAgICAgICAgICAgIC AgICAgICAgICAgICAgICAgICAgICAgICAgICAgICAgICAgICAgDQogICAgICAgICAgICAgICAgICAgIC AgICAgICAgICAgICAgICAgICAgICAgICAgICAgICAgICAgICAgICAgICAgICAgICAgICAgICAgICAgIC AgICAgICAgICAgICAgICAgICAgDQogICAgICAgICAg ICAgICAgICAgICAgICAgICAgICAgICAgICAgICAgICAgICAgICAgICAgICAgICAgICAgICAgICAgICAg ICAgICAgICAgICAgICAgICAgICAgICAgICAgICAgDQogICAgICAgICAgICAgICAgICAgICAgICAgICAg ICAgICAgICAgICAgICAgICAgICAgICAgICAgICAgIC AgICAgICAgICAgICAgICAgICAgICAgICAgICAgICAgICAgICAgICAgDQogICAgICAgICAgICAgICAgIC AgICAgICAgICAgICAgICAgICAgICAgICAgICAgICAgICAgICAgICAgICAgICAgICAgICAgICAgICAgIC AgICAgICAgICAgICAgICAgICAgICAgDQogICAgICAg ICAgICAgICAgICAgICAgICAgICAgICAgICAgICAgICAgICAgICAgICAgICAgICAgICAgICAgICAgICAg BOVeOQAcXLHmSLBqSAXcAZLvEZClKSSnIYYvHVSmLPIlFMc4P1zmNCWpYMTnAW8uNSq5Zn0+DQoNCmVu FOW6cuQwoY3KMT2uw7RgJEqwBIMbm0CsSHx9GV8XFO TaCCkuTJ6NXUddpe4WYYMqFFBnbKPNd6jlRhSuLIJ1WQYfNgfaJA4HOVLpO5wqtgQzBSCyUILFYMrhSP ATQI5IUsVkN1CteI83QXOZYp9+FXurqvDhKytCGyS7JYVyu5ZpODv4ES0QWRTyYGwjYC4UNPDoeU6zOG phPE0TNsMeKMWyTUUXCgQeK37dpQLsQKe2U7TyLwRb ZGVkRmlsZXMgPDwvTmFtZXMgWyBdDQogID4+ID4+DUzfTO5XIRunebInONLeTl0YTBPnOLK9VVJjyYDn EzOpDGMHTMseWO1LnWVqEOJ8zP0iSRbuZFCuVSZtR4lUNhNinCyaOU01wQbatfPwjMGcJKk+Uj3IJY4r a7YrLPh3wmGrLKwdLUC1UPirYRPgNBFmTRKhKDO4BR U2MBKBNuOhORKgSGWbXBzsLSWwXPOasb9FHMHhTGZgVgAqFhQyWXLtODRaNPlhKARpAMR2Dni6NJExGY LmRS3BPlGkDTQgOFPlEWWfLWUlDOZfem3FXTFmACYhEfFrOUDxZDTtXGHuHZduHSBdRSNdGtNxBXMkIF PvBD6SPiDpXWAcNFT9DzjlYILuOYFgpl2KDJIvSFUr SFXzWTXhCXGrMRFmNRzxAGJiSOW3GNhlNDYeZBOoSA7VWoSgJGJtIBXgPSVxCBCjXFFmym1GBQOzPDPj BVS0KrExKDDtNYGfHMkxIHMlPBW8IZF4BVPgJCQdWG6PZcNpHGScAXH9HofsDUIeMWKfwt5ONRIgOMGu NjgxNiAwMDAwMCBuDQowMDAwMDExNjcyIDAwMDAwIG 9WDuDsJXXyOJK3AUjcTHPnWPHrgl5JTNLvSHVaUmRwFGSjRDCaKYYpOHkmDRWrZJUhCTXxUYTeKBOnLK 9EDlAmNEWhIMD5OCfgDIHrPEBnse3QAGMoHEHqKsBbEVMxRQLqRDHcTQsmQHWyJETkAnA4OPXwKKPgJF 7DRlXtNHKxFMU3WNdrQUKdGTDvfm6MYDMlSEWmQGS9 HrAiGQWdKDIgPSmgBSDiOXVpTIkyLBAuHQEbAG3WSbNmMNDoBkZmAewyHVWsPVCilt0XHRJdXMQgFGZ4 BIJeJRUlXTAyMKs9gsCpyWFbALw0FI4YV7QuxoBhDswIOs9Ml346TRL9MBOhWq3SW9maCb4uXIHzUFFL Yl9AXAg9ZEB5QiGySWb9WDIrEoN4RFV8VdO2QhPxJ4 V4PAUtN8R+CWpyNOpgPcB4UNveCIUrHbkcZrgxBDysFMS8Kxh3BsJfMU3cDBMZQq5+DQpzdGFydHhyZW DHXsU0SsE8SNsaXIUEKm5B ID Date Data Source [id number] 07/18/2020 10:02:00 AM EDT [facility] ([facility] Name Value Range Interpretation Code Description Data Toma rce(s) Supporting Document(s) Surgical pathology study Laboratory test result [facility] FINAL DIAGNOSIS Bone, bilateral feet, exostectomy: Bone, for gross examination only. 07/19/2020899 CLINICAL DIAGNOSIS Pain due to internal orthopedic device 07/18/20201521 GROSS DIAGNOSIS Received in formalin labeled "bilateral feet bone" and consists of two pieces of munguia-white bone measuring 1.2 x 1.0 x 0.4 cm. in aggregate. The specimen is for gross exam only. -SV 07/18/20201521 Signed KIRSTY HEALY MD 07/19/2020 09 ID Date Data Source [id number] 07/17/2020 11:13:00 AM EDT [facility] ([facility] Name Value Range Interpretation Code Description Data Toma rce(s) Supporting Document(s) Glucose, Fasting 90 mg/dL 70-100 [facility] ([facility] Blood Urea Nitrogen 15 mg/dL 7-18 [facility] ([facility] Glomerular Filtration Rate Laboratory test result [facility] ([facility] <content>Units are mL/min/1.73 m2</content>
<content></content>
<content>Chronic Kidney Disease Staging per NKF:</content>
<content></content>
<content>Stage I & II GFR >=60 Normal to Mildly Decreased</content>
<content>Stage III GFR 30- 59 Moderately Decreased</content>
<content>Stage IV GFR 15-29 Severely Decreased</content>
<content>Stage V GFR <15 Very Little GFR Left</content>
<content>ESRD GFR <15 on ASSEMBLER FINGER BUFFS</content>
<content></content> Creatinine For GFR 1.08 mg/dL 0.70-1.30 [facility] ([facility] Sodium Level 142 meq/L 136-145 [facility] ([facility] Carbon Dioxide Level 27 meq/L 21-32 [facility] ([facility] Potassium Serum 4.4 meq/L 3.5-5.1 [facility] ([facility] Chloride Level 110 meq/L 98-107 Above high normal [facility] ([facility] Calcium Level 9.2 mg/dL 8.5-10.1 [facility] ([facility] Anion Gap 5 meq/L 8-16 [facility] ([facility] ID Date Data Source [id number] 07/17/2020 11:13:00 AM EDT [facility] ([facility] [...] 27.0-33.0 [facility] ([facility] Mean Corpuscular HGB Conc 31.7 g/dL 32.0-36.5 [facility] ([facility] Red Cell Distribution Width 15.0 % 11.5-14.5 Above high normal [facility] ([facility] Platelet Count, Automated 250 10 150-450 [facility] ([facility] Nucleated Red Blood Cell % 0.0 % 0-0 [facility] Procedure Social History Code Duration Value Status Description Data Source(s ) Smoking 09/10/2021 12:00:00 AM EST Former Smoker completed Former Smoker [facility] Smoking 09/10/2021 12:00:00 AM EST Former Smoker completed Former Smoker [facility] ([facility]) Smoking 09/10/2021 12:00:00 AM EST Former Smoker completed Former Smoker eCW1 ([facility]) Smoking 09/04/2021 12:00:00 AM EST Former Smoker completed Former Smoker eCW1 ([facility]) Smoking 09/04/2021 12:00:00 AM EST Former Smoker completed Former Smoker [facility]CW1 ([facility]) Smoking 07/23/2021 12:00:00 AM EDT Former Smoker completed Former Smoker [facility] ([facility]) Smoking 07/23/2021 12:00:00 AM EDT Former Smoker completed Former Smoker eCW1 ([facility]) Smoking 07/23/2021 12:00:00 AM EDT Former Smoker completed Former Smoker eCW1 ([facility]) Smoking 07/23/2021 12:00:00 AM EDT Former Smoker completed Former Smoker eCW1 ([facility]) Smoking 07/23/2021 12:00:00 AM EDT Former Smoker completed Former Smoker eCW1 ([facility]) Smoking 07/23/2021 12:00:00 AM EDT Former Smoker completed Former Smoker eCW1 ([facility]) Smoking 07/23/2021 12:00:00 AM EDT Former Smoker completed Former Smoker eCW1 ([facility]) Smoking 07/23/2021 12:00:00 AM EDT Former Smoker completed Former Smoker eCW1 ([facility]) Smoking 07/23/2021 12:00:00 AM EDT Former Smoker completed Former Smoker eCW1 ([facility]) Smoking 07/23/2021 12:00:00 AM EDT Former Smoker completed Former Smoker eCW1 ([facility]) Smoking 07/23/2021 12:00:00 AM EDT Former Smoker completed Former Smoker eCW1 ([facility]) Smoking 07/22/2021 12:00:00 AM EDT Former Smoker completed Former Smoker eCW1 ([facility]) Smoking 06/28/2021 12:00:00 AM EDT Former Smoker completed Former Smoker [facility]CW1 ([facility]) Smoking 06/28/2021 12:00:00 AM EDT Former Smoker completed Former Smoker eCW1 ([facility]) Smoking 06/28/2021 12:00:00 AM EDT Former Smoker completed Former Smoker eCW1 ([facility]) Smoking 06/28/2021 12:00:00 AM EDT Former Smoker completed Former Smoker eCW1 ([facility]) Smoking 06/28/2021 12:00:00 AM EDT Former Smoker completed Former Smoker eCW1 ([facility]) Smoking 06/13/2021 12:00:00 AM EDT Former Smoker completed Former Smoker eCW1 ([facility]) Smoking 06/13/2021 12:00:00 AM EDT Former Smoker completed Former Smoker [facility]CW1 ([facility]) Smoking 06/13/2021 12:00:00 AM EDT Former Smoker completed Former Smoker [facility]CW[facility] ([facility]) Smoking 05/23/2021 12:00:00 AM EDT Patient is a former smoker completed Patient is a former smoker [facility] ([facility] ) Smoking 05/16/2021 12:00:00 AM EDT Former Smoker completed Former Smoker [facility] Smoking 05/16/2021 12:00:00 AM EDT Former Smoker completed Former Smoker [facility]CW1 ([facility]) Smoking 05/16/2021 12:00:00 AM EDT Former Smoker completed Former Smoker eCW1 ([facility]) Smoking 05/16/2021 12:00:00 AM EDT Former Smoker completed Former Smoker eCW1 ([facility]) Smoking 05/16/2021 12:00:00 AM EDT Former Smoker completed Former Smoker [facility]CW1 ([facility]) Smoking 04/25/2021 12:00:00 AM EDT Former Smoker completed Former Smoker eCW1 ([facility]) Smoking 04/25/2021 12:00:00 AM EDT Former Smoker completed Former Smoker eCW1 ([facility]) Smoking 04/25/2021 12:00:00 AM EDT Former Smoker completed Former Smoker eCW1 ([facility]) Smoking 04/25/2021 12:00:00 AM EDT Former Smoker completed Former Smoker eCW1 ([facility]) Smoking 04/25/2021 12:00:00 AM EDT Former Smoker completed Former Smoker eCW1 ([facility]) Smoking 04/25/2021 12:00:00 AM EDT Former Smoker completed Former Smoker eCW1 ([facility]) Alcohol intake 04/19/2021 12:00:00 AM EDT Current non-d [place] of alcohol (finding) completed Current non-drinker of alcohol (finding) [facility] Smoking 04/15/2021 12:00:00 AM EDT Former Smoker completed Former Smoker [facility]CW1 ([facility] Smoking 04/15/2021 12:00:00 AM EDT Former Smoker completed Former Smoker eCW1 ([facility]) Smoking 04/15/2021 12:00:00 AM EDT Former Smoker completed Former Smoker eCW1 ([facility]) Smoking 04/15/2021 12:00:00 AM EDT Former Smoker completed Former Smoker eCW1 ([facility]) Smoking 04/10/2021 12:00:00 AM EDT Former Smoker completed Former Smoker eCW1 ([facility]) Smoking 03/15/2021 12:00:00 AM EDT Former Smoker completed Former Smoker eCW1 ([facility]) Smoking 03/15/2021 12:00:00 AM EDT Former Smoker completed Former Smoker eCW1 ([facility]) Smoking 03/15/2021 12:00:00 AM EDT Former Smoker completed Former Smoker eCW1 ([facility]) Smoking 03/15/2021 12:00:00 AM EDT Former Smoker completed Former Smoker [facility]CW1 ([facility]) Smoking 02/25/2021 12:00:00 AM EDT Former Smoker completed Former Smoker eCW1 ([facility]) Smoking 02/25/2021 12:00:00 AM EDT Former Smoker completed Former Smoker eCW1 ([facility]) Smoking 02/25/2021 12:00:00 AM EDT Former Smoker completed Former Smoker eCW1 ([facility]) Smoking 02/05/2021 12:00:00 AM EDT Former Smoker completed Former Smoker eCW1 ([facility]) Smoking 02/05/2021 12:00:00 AM EDT Former Smoker completed Former Smoker eCW1 ([facility]) Smoking 02/05/2021 12:00:00 AM EDT Former Smoker completed Former Smoker eCW1 ([facility]) Smoking 02/05/2021 12:00:00 AM EDT Former Smoker completed Former Smoker eCW1 ([facility]) Smoking 02/05/2021 12:00:00 AM EDT Former Smoker completed Former Smoker eCW1 ([facility]) Smoking 01/25/2021 12:00:00 AM EDT Former Smoker completed Former Smoker eCW1 ([facility]) Smoking 01/25/2021 12:00:00 AM EDT Former Smoker completed Former Smoker eCW1 ([facility]) Smoking 01/22/2021 12:00:00 AM EDT Former Smoker completed Former Smoker eCW1 ([facility]) Smoking 01/22/2021 12:00:00 AM EDT Former Smoker completed Former Smoker eCW1 ([facility]) Smoking 12/11/2020 12:00:00 AM EST Former Smoker completed Former Smoker eCW1 ([facility]) Smoking 12/11/2020 12:00:00 AM EST Former Smoker completed Former Smoker eCW1 ([facility]) Smoking 12/11/2020 12:00:00 AM EST Former Smoker completed Former Smoker eCW1 ([facility]) Smoking 12/11/2020 12:00:00 AM EST Former Smoker completed Former Smoker eCW1 ([facility]) Smoking 12/11/2020 12:00:00 AM EST Former Smoker completed Former Smoker eCW1 ([facility]) Smoking 12/11/2020 12:00:00 AM EST Former Smoker completed Former Smoker eCW1 ([facility]) Smoking 12/11/2020 12:00:00 AM EST Former Smoker completed Former Smoker eCW1 ([facility]) Smoking 12/11/2020 12:00:00 AM EST Former Smoker completed Former Smoker eCW1 ([facility]) Smoking 12/11/2020 12:00:00 AM EST Former Smoker completed Former Smoker eCW1 ([facility]) Smoking 12/11/2020 12:00:00 AM EST Former Smoker completed Former Smoker eCW1 ([facility]) Smoking 12/10/2020 12:00:00 AM EST Former Smoker completed Former Smoker eCW1 ([facility]) Smoking 11/20/2020 12:00:00 AM EST Former Smoker completed Former Smoker eCW1 ([facility]) Smoking 11/20/2020 12:00:00 AM EST Former Smoker completed Former Smoker eCW1 ([facility]) Smoking 11/20/2020 12:00:00 AM EST Former Smoker completed Former Smoker eCW1 ([facility]) Smoking 11/20/2020 12:00:00 AM EST Former Smoker completed Former Smoker eCW1 ([facility]) Smoking 11/20/2020 12:00:00 AM EST Former Smoker completed Former Smoker eCW1 ([facility]) Smoking 11/20/2020 12:00:00 AM EST Former Smoker completed Former Smoker eCW1 ([facility]) Smoking 11/20/2020 12:00:00 AM EST Former Smoker completed Former Smoker eCW1 ([facility]) Smoking 11/20/2020 12:00:00 AM EST Former Smoker completed Former Smoker eCW1 ([facility]) Smoking 11/17/2020 12:00:00 AM EST Patient is a former smoker completed Patient is a former smoker [facility] ([facility]) Smoking 11/05/2020 12:00:00 AM EST Patient is a former smoker completed Patient is a former smoker [facility] ([facility]) Smoking 10/09/2020 12:00:00 AM EST Former Smoker completed Former Smoker [facility] Smoking 10/09/2020 12:00:00 AM EST Former Smoker completed Former Smoker eCW1 ([facility]) Smoking 10/09/2020 12:00:00 AM EST Former Smoker completed Former Smoker eCW1 ([facility]) Smoking 09/24/2020 12:00:00 AM EST Former Smoker completed Former Smoker [email or web address] Smoking 09/24/2020 12:00:00 AM EST Former Smoker completed Former Smoker [email or web address] Smoking 09/24/2020 12:00:00 AM EST Former Smoker completed Former Smoker [email or web address] Smoking 09/24/2020 12:00:00 AM EST Former Smoker completed Former Smoker [email or web address] [facility] Smoking 09/24/2020 12:00:00 AM EST Former Smoker completed Former Smoker [email or web address] [facility] Smoking 08/15/2020 12:00:00 AM EST Former Smoker completed Former Smoker [email or web address] [facility] Smoking 08/15/2020 12:00:00 AM EST Former Smoker completed Former Smoker [email or web address] [facility] Smoking 08/15/2020 12:00:00 AM EST Former Smoker completed Former Smoker [email or web address] [facility] Smoking 08/15/2020 12:00:00 AM EST Former Smoker completed Former Smoker [email or web address] [facility] Smoking 08/15/2020 12:00:00 AM EST Former Smoker completed Former Smoker eCW1 [facility] Smoking 08/15/2020 12:00:00 AM EST Former Smoker completed Former Smoker eCW1 [facility] Smoking 08/15/2020 12:00:00 AM EST Former Smoker completed Former Smoker eCW1 [facility] Smoking 08/15/2020 12:00:00 AM EST Former Smoker completed Former Smoker eCW1 [facility]) Smoking 08/15/2020 12:00:00 AM EST Former Smoker completed Former Smoker eCW1 [facility] Smoking 08/09/2020 12:00:00 AM EST Former Smoker completed Former Smoker eCW1 [facility] Smoking 08/09/2020 12:00:00 AM EST Former Smoker completed Former Smoker eCW1 ([facility] Smoking 08/09/2020 12:00:00 AM EST Former Smoker completed Former Smoker eCW1 [facility]) Smoking 08/09/2020 12:00:00 AM EST Former Smoker completed Former Smoker eCW1 [facility]) Smoking 08/09/2020 12:00:00 AM EST Former Smoker completed Former Smoker eCW1 [facility]) Smoking 08/08/2020 12:00:00 AM EST Former Smoker completed Former Smoker eCW1 [facility]) Smoking 08/07/2020 12:00:00 AM EST Former Smoker completed Former Smoker eCW1 ([facility]) Smoking 07/26/2020 12:00:00 AM EDT Former Smoker completed Former Smoker [email or web address] ([facility]) Smoking 07/17/2020 12:00:00 AM EDT Former Smoker completed Former Smoker [email or web address] [facility]) Vital Signs ID Date Data Source UNK Name Value Range Interpretation Code Description Data Source(s) Body weight 308 [lb_av] 308 [lb_av] eCW1 ([facility]) Body weight 139.71 kg 139.71 kg W1 ([facility]) Body height 68 [in_i] 68 [in_i] eCW1 ([facility]) Body mass index (BMI) [Ratio] 46.83 kg/m2 46.83 kg/m2 [facility]CW1 [facility]) Systolic blood pressure 140 mm[Hg] 140 mm[Hg] e CW1 ([facility]) Diastolic blood pressure 88 mm[Hg] 88 mm[Hg] eCW1 [facility] Body weight 312.0 [lb_av] 312.0 [lb_av] eCW1 ([facility]) Body height 68 [in_i] 68 [in_i] eCW1 ([facility]) Body mass index (BMI) [Ratio] 47.43 kg/m2 47.43 kg/m2 eCW1 [facility]) Systolic blood pressure 132 mm[Hg] 132 mm[Hg] e CW1 ([facility]) Diastolic blood pressure 84 mm[Hg] 84 mm[Hg] eCW1 [facility]) Body weight 316.6 [lb_av] 316.6 [lb_av] eCW1 ([facility]) Body weight 143.61 kg 143.61 kg eCW1 ([facility]) Body height 68 [in_i] 68 [in_i] eCW1 ([facility]) Body mass index (BMI) [Ratio] 48.13 kg/m2 48.13 kg/m2 eCW1 ([facility]) Systolic blood pressure 130 mm[Hg] 130 mm[Hg] e CW1 ([facility]) Diastolic blood pressure 78 mm[Hg] 78 mm[Hg] eCW1 [facility]) Body weight 140.62 kg 140.62 kg eCW1 ([facility]) Body height 68 [in_i] 68 [in_i] eCW1 ([facility]) Body weight 310.0 [lb_av] 310.0 [lb_av] eCW1 ([facility]) Body mass index (BMI) [Ratio] 47.13 kg/m2 47.13 kg/m2 eCW1 ([facility]) Heart rate 69 /min 69 /min eCW1 ([facility]) Respiratory rate 18 /min 18 /min eCW1 ([facility]) Body temperature 98.8 [degF] 98.8 [degF] eCW1 ( [facility]) Systolic blood pressure 144 mm[Hg] 144 mm[Hg] e CW1 ([facility]) Diastolic blood pressure 88 mm[Hg] 88 mm[Hg] eCW1 [facility]) Body height 68 [in_i] 68 [in_i] MEDENT ([facility] ) 5'8" Body mass index (BMI) [Ratio] 47.9 kg/m2 47.9 k g/m2 MEDENT ([facility] ) Body weight 315.00 [lb_av] 315.00 [lb_av] MEDEN T ([facility] ) Systolic blood pressure 116 mm[Hg] 116 mm[Hg] M EDENT ([facility], ) Diastolic blood pressure 74 mm[Hg] 74 mm[Hg] MEDSAHARA ([facility], ) Heart rate 70 /min 70 /min MEDSAHARA ([facility], ) Oxygen saturation in Arterial blood by Pulse oximetry 100 % 100 % MEDSAHARA ([facility], ) Room Air Body height 68 [in_i] 68 [in_i] [facility] 5'8" Body weight 313.00 [lb_av] 313.00 [lb_av] MEDEN T ([facility]) Body mass index (BMI) [Ratio] 47.6 kg/m2 47.6 k g/m2 [facility] ([facility]) [place] body weight 154 [lb_av] 154 [lb_av] MEDEN T ([facility]) Body weight 141.977 kg 141.977 kg [facility] ([facility]) Body surface area Derived from formula 2.47 m2 2.47 m2 [facility] ([facility]) Body weight 312 [lb_av] 312 [lb_av] eCW1 ([facility]) Body weight 141.52 kg 141.52 kg W1 ([facility]) Body height 68 [in_i] 68 [in_i] eCW1 ([facility]) Body mass index (BMI) [Ratio] 47.43 kg/m2 47.43 kg/m2 eCW1 [facility]) Systolic blood pressure 136 mm[Hg] 136 mm[Hg] e CW1 ([facility]) Diastolic blood pressure 74 mm[Hg] 74 mm[Hg] eCW1 ([facility]) Body weight 307 [lb_av] 307 [lb_av] eCW1 ([facility]) Body height 68 [in_i] 68 [in_i] eCW1 ([facility]) Body mass index (BMI) [Ratio] 46.67 kg/m2 46.67 kg/m2 eCW1 ([facility]) Heart rate 84 /min 84 /min eCW1 ([facility]) Respiratory rate 20 /min 20 /min eCW1 ([facility]) Body temperature 97.8 [degF] 97.8 [degF] eCW1 ( [facility]) Systolic blood pressure 134 mm[Hg] 134 mm[Hg] e CW1 ([facility]) Diastolic blood pressure 70 mm[Hg] 70 mm[Hg] eCW1 ([facility]) Systolic blood pressure 116 mm[Hg] 116 mm[Hg] [facility] Diastolic blood pressure 76 mm[Hg] 76 mm[Hg] [facility] Heart rate 65 /min 65 /min [facility] Respiratory rate 18 /min 18 /min [facility] Body weight 140.343 kg 140.343 kg [facility] Body mass index (BMI) [Ratio] 47.04 kg/m2 47.04 kg/m2 [facility] Oxygen saturation in Arterial blood by Pulse oximetry 98 % 98 % [facility] Body weight 306 [lb_av] 306 [lb_av] eCW1 ([facility]) Heart rate 68 /min 68 /min eCW1 ([facility]) Body height 68 [in_i] 68 [in_i] eCW1 ([facility]) Body mass index (BMI) [Ratio] 46.52 kg/m2 46.52 kg/m2 eCW1 [facility]) Respiratory rate 19 /min 19 /min eCW1 ([facility]) Body temperature 98 [degF] 98 [degF] eCW1 ([facility]) Systolic blood pressure 133 mm[Hg] 133 mm[Hg] e CW1 ([facility]) Diastolic blood pressure 79 mm[Hg] 79 mm[Hg] eCW1 [facility]) Body weight 306.8 [lb_av] 306.8 [lb_av] eCW1 ([facility]) Body height 68 [in_i] 68 [in_i] eCW1 ([facility]) Body mass index (BMI) [Ratio] 46.64 kg/m2 46.64 kg/m2 eCW1 ([facility]) Heart rate 87 /min 87 /min eCW1 ([facility]) Systolic blood pressure 120 mm[Hg] 120 mm[Hg] e CW1 ([facility]) Respiratory rate 20 /min 20 /min eCW1 ([facility]) Body temperature 97.1 [degF] 97.1 [degF] eCW1 ( [facility]) Diastolic blood pressure 60 mm[Hg] 60 mm[Hg] eCW1 ([facility]) Body weight 310 [lb_av] 310 [lb_av] eCW1 ([facility]) Body height 68 [in_i] 68 [in_i] eCW1 ([facility]) Body mass index (BMI) [Ratio] 47.13 kg/m2 47.13 kg/m2 eCW1 ([facility]) Heart rate 77 /min 77 /min eCW1 ([facility]) Respiratory rate 20 /min 20 /min eCW1 ([facility]) Body temperature 98 [degF] 98 [degF] eCW1 ([facility]) Systolic blood pressure 124 mm[Hg] 124 mm[Hg] e CW1 ([facility]) Diastolic blood pressure 70 mm[Hg] 70 mm[Hg] eCW1 ([facility]) Respiratory rate 18 /min 18 /min eCW1 ([facility]) Body temperature 98.1 [degF] 98.1 [degF] eCW1 ( [facility]) Systolic blood pressure 130 mm[Hg] 130 mm[Hg] e CW1 ([facility]) Diastolic blood pressure 80 mm[Hg] 80 mm[Hg] eCW1 ([facility]) Body weight 314 [lb_av] 314 [lb_av] eCW1 ([facility]) Body height 68 [in_i] 68 [in_i] eCW1 ([facility]) Body mass index (BMI) [Ratio] 47.74 kg/m2 47.74 kg/m2 eCW1 ([facility]) Heart rate 81 /min 81 /min eCW1 ([facility]) Body weight 315.00 [lb_av] 315.00 [lb_av] MEDEN T ([facility], ) Body mass index (BMI) [Ratio] 47.9 kg/m2 47.9 k g/m2 MEDENT ([facility]) [place] body weight 154 [lb_av] 154 [lb_av] MEDEN T ([facility]) Body weight 142.884 kg 142.884 kg MEDENT ([facility]) Body surface area Derived from formula 2.48 m2 2.48 m2 MEDENT ([facility]) Body height 68 [in_i] 68 [in_i] MEDENT ([facility]) 5'8" Body weight 315.00 [lb_av] 315.00 [lb_av] MEDEN T ([facility]) Body mass index (BMI) [Ratio] 47.9 kg/m2 47.9 k g/m2 [facility] ([facility]) [place] body weight 154 [lb_av] 154 [lb_av] MEDEN T ([facility]) Body weight 142.884 kg 142.884 kg [facility] ([facility]) Systolic blood pressure 126 mm[Hg] 126 mm[Hg] M EDENT ([facility]) Diastolic blood pressure 70 mm[Hg] 70 mm[Hg] MEDENT ([facility]) Body height 68 [in_i] 68 [in_i] MEDENT ([facility]) 5'8" Body surface area Derived from formula 2.48 m2 2.48 m2 [facility] ([facility]) Body weight 308 [lb_av] 308 [lb_av] eCW1 ([facility]) Body height 68 [in_i] 68 [in_i] eCW1 ([facility]) Body mass index (BMI) [Ratio] 46.83 kg/m2 46.83 kg/m2 eCW1 [facility]) Heart rate 88 /min 88 /min eCW1 ([facility]) Respiratory rate 20 /min 20 /min eCW1 ([facility]) Body temperature 98.6 [degF] 98.6 [degF] eCW1 ( [facility]) Systolic blood pressure 130 mm[Hg] 130 mm[Hg] e CW1 ([facility]) Diastolic blood pressure 84 mm[Hg] 84 mm[Hg] eCW1 ([facility]) Body weight 304 [lb_av] 304 [lb_av] eCW1 ([facility]) Body height 68 [in_i] 68 [in_i] eCW1 ([facility]) Body mass index (BMI) [Ratio] 46.22 kg/m2 46.22 kg/m2 eCW1 ([facility]) Heart rate 85 /min 85 /min eCW1 ([facility]) Respiratory rate 18 /min 18 /min eCW1 ([facility]) Body temperature 97.6 [degF] 97.6 [degF] eCW1 ( [facility]) Systolic blood pressure 121 mm[Hg] 121 mm[Hg] e CW1 ([facility]) Diastolic blood pressure 76 mm[Hg] 76 mm[Hg] eCW1 ([facility]) Body weight 305 [lb_av] 305 [lb_av] eCW1 ([facility]) Body height 68 [in_i] 68 [in_i] eCW1 ([facility]) Body mass index (BMI) [Ratio] 46.37 kg/m2 46.37 kg/m2 eCW1 ([facility]) Heart rate 85 /min 85 /min eCW1 ([facility]) Respiratory rate 20 /min 20 /min eCW1 ([facility]) Body temperature 97.5 [degF] 97.5 [degF] eCW1 ( [facility]) Systolic blood pressure 136 mm[Hg] 136 mm[Hg] e CW1 ([facility]) Diastolic blood pressure 80 mm[Hg] 80 mm[Hg] eCW1 ([facility]) Systolic blood pressure 113 mm[Hg] 113 mm[Hg] M EDENT ([facility], [facility]) Body mass index (BMI) [Ratio] 45.6 kg/m2 45.6 k g/m2 MEDENT ([facility], [facility]) Diastolic blood pressure 61 mm[Hg] 61 mm[Hg] MEDENT ([facility], [facility]) Heart rate 58 /min 58 /min MEDENT ([facility], [facility]) Respiratory rate 13 /min 13 /min MEDENT ( [facility], [facility]) Oxygen saturation in Arterial blood by Pulse oximetry 96 % 96 % MEDENT ([facility], [facility]) Body temperature 95.1 [degF] 95.1 [degF] MEDENT ([facility], [facility]) Body weight 300.00 [lb_av] 300.00 [lb_av] MEDEN T ([facility], [facility]) Body height 68 [in_i] 68 [in_i] MEDENT ([facility], [facility]) 5'8" Body temperature 96.7 [degF] 96.7 [degF] MEDENT ([facility]) Body temperature 97.3 [degF] 97.3 [degF] MEDENT ([facility]) Body temperature 97.3 [degF] 97.3 [degF] MEDENT ([facility]) Body height 68 [in_i] 68 [in_i] MEDENT ([facility]) 5'8" Body weight 306.00 [lb_av] 306.00 [lb_av] MEDEN T ([facility]) Body mass index (BMI) [Ratio] 46.5 kg/m2 46.5 k g/m2 MEDENT ([facility]) Body temperature 96.8 [degF] 96.8 [degF] MEDENT ([facility]) Body weight 306 [lb_av] 306 [lb_av] eCW1 ([facility]) Body temperature 97 [degF] 97 [degF] eCW1 ([facility]) Systolic blood pressure 130 mm[Hg] 130 mm[Hg] e CW1 ([facility]) Diastolic blood pressure 80 mm[Hg] 80 mm[Hg] eCW1 ([facility]) Body height 68 [in_i] 68 [in_i] eCW1 ([facility]) Body mass index (BMI) [Ratio] 46.52 kg/m2 46.52 kg/m2 W1 ([facility]) Heart rate 90 /min 90 /min eCW1 ([facility]) Respiratory rate 20 /min 20 /min eCW1 ([facility]) Body weight 305.0 [lb_av] 305.0 [lb_av] eCW1 ([facility]) Body height 68 [in_i] 68 [in_i] eCW1 ([facility]) Body mass index (BMI) [Ratio] 46.37 kg/m2 46.37 kg/m2 eCW1 ([facility]) Heart rate 85 /min 85 /min eCW1 ([facility]) Respiratory rate 18 /min 18 /min eCW1 ([facility]) Body temperature 96.9 [degF] 96.9 [degF] eCW1 ( [facility]) Systolic blood pressure 121 mm[Hg] 121 mm[Hg] e CW1 ([facility]) Diastolic blood pressure 76 mm[Hg] 76 mm[Hg] eCW1 ([facility]) Body weight 300 [lb_av] 300 [lb_av] eCW1 ([facility]) Body height 68 [in_i] 68 [in_i] eCW1 ([facility]) Body mass index (BMI) [Ratio] 45.61 kg/m2 45.61 kg/m2 eCW1 ([facility]) Heart rate 69 /min 69 /min eCW1 ([facility]) Respiratory rate 18 /min 18 /min eCW1 ([facility]) Body temperature 97.9 [degF] 97.9 [degF] eCW1 ( [facility]) Systolic blood pressure 118 mm[Hg] 118 mm[Hg] e CW1 ([facility]) Diastolic blood pressure 68 mm[Hg] 68 mm[Hg] eCW1 ([facility]) Body weight 301.2 [lb_av] 301.2 [lb_av] eCW1 ([facility]) Body height 68 [in_i] 68 [in_i] eCW1 ([facility]) Body mass index (BMI) [Ratio] 45.79 kg/m2 45.79 kg/m2 eCW1 ([facility]) Heart rate 68 /min 68 /min eCW1 ([facility]) Respiratory rate 18 /min 18 /min eCW1 ([facility]) Body temperature 98.4 [degF] 98.4 [degF] eCW1 ( [facility]) Systolic blood pressure 115 mm[Hg] 115 mm[Hg] e CW1 ([facility]) Diastolic blood pressure 68 mm[Hg] 68 mm[Hg] eCW1 ([facility]) Body weight 295 [lb_av] 295 [lb_av] eCW1 ([facility]) Body height 68 [in_i] 68 [in_i] eCW1 ([facility]) Body mass index (BMI) [Ratio] 44.85 kg/m2 44.85 kg/m2 eCW1 ([facility]) Heart rate 110 /min 110 /min eCW1 ([facility]) Respiratory rate 18 /min 18 /min eCW1 ([facility]) Body temperature 97.9 [degF] 97.9 [degF] eCW1 ( [facility]) Systolic blood pressure 112 mm[Hg] 112 mm[Hg] e CW1 ([facility]) Diastolic blood pressure 80 mm[Hg] 80 mm[Hg] eCW1 ([facility]) Body weight 297.4 [lb_av] 297.4 [lb_av] eCW1 ([facility]) Body height 68 [in_i] 68 [in_i] eCW1 ([facility]) Body mass index (BMI) [Ratio] 45.21 kg/m2 45.21 kg/m2 eCW1 ([facility]) Heart rate 78 /min 78 /min eCW1 ([facility]) Respiratory rate 20 /min 20 /min eCW1 ([facility]) Body temperature 97.2 [degF] 97.2 [degF] eCW1 ( [facility]) Systolic blood pressure 113 mm[Hg] 113 mm[Hg] e CW1 ([facility]) Diastolic blood pressure 56 mm[Hg] 56 mm[Hg] eCW1 ([facility]) Body weight 297.4 [lb_av] 297.4 [lb_av] eCW1 ([facility]) Body height 68 [in_i] 68 [in_i] eCW1 ([facility]) Body mass index (BMI) [Ratio] 45.21 kg/m2 45.21 kg/m2 eCW1 ([facility]) Heart rate 99 /min 99 /min eCW1 ([facility]) Respiratory rate 20 /min 20 /min eCW1 ([facility]) Body temperature 98.5 [degF] 98.5 [degF] eCW1 ( [facility]) Systolic blood pressure 104 mm[Hg] 104 mm[Hg] e CW1 ([facility]) Diastolic blood pressure 70 mm[Hg] 70 mm[Hg] eCW1 [facility]) ID Date Data Source [id number] 04/03/2021 10:47:[address] [facility] Name Value Range Interpretation Code Description Data Source(s) WEIGHT RECORDED 300.30 pounds 300.30 pounds [facility] Height [address] [facility] Patient Treatment Plan of Care Planned Activity Planned Date Details Description Data Source (s) May Use - 09/03/2021 12:00:00 AM EST e CW1 ([facility]) May Use - 09/03/2021 12:00:00 AM EST e CW1 ([facility]) May Use - 09/03/2021 12:00:00 AM EST e CW1 ([facility]) Hydroxyzine Hydrochloride 25 MG Oral Tablet 07/22/2021 12:00:00 AM EDT eCW1 ([facility]) Hydroxyzine Hydrochloride 25 MG Oral Tablet 07/22/2021 12:00:00 AM EDT eCW1 ([facility]) Hydroxyzine Hydrochloride 25 MG Oral Tablet 07/22/2021 12:00:00 AM EDT eCW1 ([facility]) Hydroxyzine Hydrochloride 25 MG Oral Tablet 07/22/2021 12:00:00 AM EDT eCW1 ([facility]) Hydroxyzine Hydrochloride 25 MG Oral Tablet 07/22/2021 12:00:00 AM EDT eCW1 ([facility]) Hydroxyzine Hydrochloride 25 MG Oral Tablet 07/22/2021 12:00:00 AM EDT eCW1 ([facility]) Hydroxyzine Hydrochloride 25 MG Oral Tablet 07/22/2021 12:00:00 AM EDT eCW1 ([facility]) Hydroxyzine Hydrochloride 25 MG Oral Tablet 07/22/2021 12:00:00 AM EDT eCW1 ([facility]) Hydroxyzine Hydrochloride 25 MG Oral Tablet 07/22/2021 12:00:00 AM EDT eCW1 ([facility]) Hydroxyzine Hydrochloride 25 MG Oral Tablet 07/22/2021 12:00:00 AM EDT eCW1 ([facility]) Hydroxyzine Hydrochloride 25 MG Oral Tablet 07/22/2021 12:00:00 AM EDT eCW1 ([facility]) Hydroxyzine Hydrochloride 25 MG Oral Tablet 07/22/2021 12:00:00 AM EDT eCW1 ([facility]) Betamethasone 0.5 MG/ML Topical Cream 06/28/2021 12:00:00 AM EDT eCW1 ([facility]) Betamethasone 0.5 MG/ML Topical Cream 06/28/2021 12:00:00 AM EDT eCW1 ([facility]) Betamethasone 0.5 MG/ML Topical Cream 06/28/2021 12:00:00 AM EDT eCW1 ([facility]) Betamethasone 0.5 MG/ML Topical Cream 06/28/2021 12:00:00 AM EDT eCW1 ([facility]) Betamethasone 0.5 MG/ML Topical Cream 06/28/2021 12:00:00 AM EDT eCW1 ([facility]) Triamcinolone Acetonide 1 MG/ML Topical Cream 05/16/2021 12:00:00 A M EDT eCW1 ([facility]) Triamcinolone Acetonide 1 MG/ML Topical Cream 05/16/2021 12:00:00 A M EDT eCW1 ([facility]) Triamcinolone Acetonide 1 MG/ML Topical Cream 05/16/2021 12:00:00 A M EDT eCW1 ([facility]) Triamcinolone Acetonide 1 MG/ML Topical Cream 05/16/2021 12:00:00 A M EDT eCW1 ([facility]) Triamcinolone Acetonide 1 MG/ML Topical Cream 05/16/2021 12:00:00 A M EDT eCW1 ([facility]) Ondansetron 8 MG Oral Tablet 05/15/2021 12:00:00 AM EDT eCW1 ([facility]) tramadol hydrochloride 50 MG Oral Tablet 04/17/2021 12:00:00 AM EDT [facility] topiramate 50 MG Oral Tablet 03/26/2021 12:00:00 AM EDT [facility] Hydrocortisone 10 MG/ML / Neomycin 3.5 M G/ML / Polymyxin B 99722 UNT/ML Otic Suspension 03/18/2021 12:00:00 AM EDT [facility] Hydrocortisone 10 MG/ML / Neomycin 3.5 M G/ML / Polymyxin B 99621 UNT/ML Otic Suspension 03/18/2021 12:00:00 AM EDT eCW1 ([facility] Hydrocortisone 10 MG/ML / Neomycin 3.5 M G/ML / Polymyxin B 44851 UNT/ML Otic Suspension 03/18/2021 12:00:00 AM EDT eCW1 ([facility]) Hydrocortisone 10 MG/ML / Neomycin 3.5 M G/ML / Polymyxin B 11103 UNT/ML Otic Suspension 03/18/2021 12:00:00 AM EDT eCW1 ([facility]) Hydrocortisone 10 MG/ML / Neomycin 3.5 M G/ML / Polymyxin B 19724 UNT/ML Otic Suspension 03/18/2021 12:00:00 AM EDT eCW1 ([facility]) Fluocinolone Acetonide 0.1 MG/ML Otic Solution [Jeremy ic] 03/15/2021 12:00:00 AM EDT eCW1 ([facility]) Fluocinolone Acetonide 0.1 MG/ML Otic Solution [Jeremy ic] 03/15/2021 12:00:00 AM EDT eCW1 ([facility]) POLYETHYLENE GLYCOL 3350 142 MG/ML Oral Solution 03/15/2021 12:00:0 0 AM EDT [facility] Docusate Sodium 100 MG Oral Capsule [Colace] 03/15/2021 12:00:00 AM EDT eCW1 ([facility]) POLYETHYLENE GLYCOL 3350 142 MG/ML Oral Solution [Carlene lax] 03/15/2021 12:00:00 AM EDT eCW1 ([facility]) Docusate Sodium 100 MG Oral Capsule [Colace] 03/15/2021 12:00:00 AM EDT eCW1 ([facility]) POLYETHYLENE GLYCOL 3350 142 MG/ML Oral Solution [Carlene lax] 03/15/2021 12:00:00 AM EDT eCW1 ([facility]) Docusate Sodium 100 MG Oral Capsule [Colace] 03/15/2021 12:00:00 AM EDT eCW1 ([facility]) POLYETHYLENE GLYCOL 3350 142 MG/ML Oral Solution [Carlene lax] 03/15/2021 12:00:00 AM EDT eCW1 ([facility]) Docusate Sodium 100 MG Oral Capsule [Colace] 03/15/2021 12:00:00 AM EDT eCW1 ([facility]) POLYETHYLENE GLYCOL 3350 142 MG/ML Oral Solution [Carlene lax] 03/15/2021 12:00:00 AM EDT eCW1 ([facility]) Bisacodyl 5 MG Delayed Release Oral Tablet 03/02/2021 12:00:00 AM E DT [facility] Metoprolol Tartrate 25 MG Oral Tablet 02/26/2021 12:00:00 AM EDT [facility] Clobetasol Propionate 0.5 MG/ML Topical Cream 01/25/2021 12:00:00 A M EDT [email or web address] Clobetasol Propionate 0.5 MG/ML Topical Cream 01/25/2021 12:00:00 A M EDT eCW1 ([facility]) Fluocinolone Acetonide 0.1 MG/ML Otic Solution [[facility]] 08/07/2020 12:00:00 AM EST [email or web address] ([facility]) apixaban 5 MG Oral Tablet [Eliquis] 05/15/2020 12:00:00 AM EDT [facility] Mupirocin 0.02 MG/MG Topical Ointment 04/12/2020 12:00:00 AM EDT [facility] Levothyroxine Sodium 0.075 MG Oral Tablet 09/19/2019 12:00:00 AM ES T [facility] Hydrocortisone 10 MG/ML Topical Cream [facility] Acetaminophen 500 MG Oral Tablet [facility] ammonium lactate 120 MG/ML Topical Lotion [facility] Aspirin 325 MG Delayed Release Oral Tablet [facility] Polyvinyl Alcohol 0.014 ML/ML Ophthalmic Solution [facility]
--- OUTSIDE RECORDS SUMMARY | 2021-09-15 20:07 | CCD ---
Author Author [facility] Organization [facility] Address Unknown Phone Unavailable Care Team Providers Care Editor House Organ Name Role Phone Lashonda Pond PA-C Unavailable Unavailabl Lashonda Gotit PA-C Unavailable Unavailabl Lashonda Gotti PA-C Unavailable Unavailabl e Fish, Lashonda Aidee MPAS, PA-C Unavailable Unavailabl e Fish, [facility], PA-C Unavailable Unavailabl e Fish, [facility], PA-C Unavailable Unavailabl e Fish, [facility], PA-C Unavailable Unavailabl e Fish, [facility], PA-C Unavailable Unavailabl e Fish, [facility], PA-C Unavailable Unavailabl e Fish, [facility], PA-C Unavailable Unavailabl e Fish, [facility], PA-C Unavailable Unavailabl e Fish, [facility], PA-C Unavailable Unavailabl e Fish, [facility], PA-C Unavailable Unavailabl e Fish, [facility], PA-C Unavailable Unavailabl e Fish, [facility], PA-C Unavailable Unavailabl e Fish, [facility], PA-C Unavailable Unavailabl e Fish, [facility], PA-C Unavailable Unavailabl e Fish, [facility], PA-C Unavailable Unavailabl e Fish, [facility], PA-C Unavailable Unavailabl e Fish, [facility], PA-C Unavailable Unavailabl e Fish, [facility], PA-C Unavailable Unavailabl e Fish, [facility], PA-C Unavailable Unavailabl e Fish, [facility], PA-C Unavailable Unavailabl e Fish, [facility], PA-C Unavailable Unavailabl e Fish, [facility], PA-C Unavailable Unavailabl e Fish, [facility], PA-C Unavailable Unavailabl e Fish, [facility], PA-C Unavailable Unavailabl e Fish, [facility], PA-C Unavailable Unavailabl e Fish, [facility], PA-C Unavailable Unavailabl e Fish, [facility], PA-C Unavailable Unavailabl e Fish, [facility], PA-C Unavailable Unavailabl e Fish, [facility], PA-C Unavailable Unavailabl e Fish, [facility], PA-C Unavailable Unavailabl e Fish, [facility], PA-C Unavailable Unavailabl e Fish, [facility], PA-C Unavailable Unavailabl e Fish, Lashonda Aidee MPAS, PA-C Unavailable Unavailabl e OROURKE, H NICOLE NEUROLOGY STROKE PHYSICIAN Unavailable Unavailable OROURKE, H NICOLE NEUROLOGY STROKE PHYSICIAN Unavailable Unavailable OROURKE, H NICOLE NEUROLOGY STROKE PHYSICIAN Unavailable Unavailable OROURKE, H NICOLE NEUROLOGY STROKE PHYSICIAN Unavailable Unavailable OROURKE, H NICOLE NEUROLOGY STROKE PHYSICIAN Unavailable Unavailable OROURKE, H NICOLE NEUROLOGY STROKE PHYSICIAN Unavailable Unavailable OROURKE, H NICOLE NEUROLOGY STROKE PHYSICIAN Unavailable Unavailable OROURKE, H NICOLE NEUROLOGY STROKE PHYSICIAN Unavailable Unavailable OROURKE, H NICOLE NEUROLOGY STROKE PHYSICIAN Unavailable Unavailable OROURKE, H NICOLE NEUROLOGY STROKE PHYSICIAN Unavailable Unavailable OROURKE, H NICOLE NEUROLOGY STROKE PHYSICIAN Unavailable Unavailable OROURKE, H NICOLE NEUROLOGY STROKE PHYSICIAN Unavailable Unavailable OROURKE, H NICOLE NEUROLOGY STROKE PHYSICIAN Unavailable Unavailable OROURKE, H NICOLE NEUROLOGY STROKE PHYSICIAN Unavailable Unavailable OROURKE, H NICOLE NEUROLOGY STROKE PHYSICIAN Unavailable Unavailable OROURKE, H NICOLE NEUROLOGY STROKE PHYSICIAN Unavailable Unavailable OROURKE, H NICOLE NEUROLOGY STROKE PHYSICIAN Unavailable Unavailable OROURKE, H NICOLE NEUROLOGY STROKE PHYSICIAN Unavailable Unavailable OROURKE, H NICOLE NEUROLOGY STROKE PHYSICIAN Unavailable Unavailable OROURKE, H NICOLE NEUROLOGY STROKE PHYSICIAN Unavailable Unavailable OROURKE, H NICOLE NEUROLOGY STROKE PHYSICIAN Unavailable Unavailable OROURKE, H NICOLE NEUROLOGY STROKE PHYSICIAN Unavailable Unavailable OROURKE, H NICOLE NEUROLOGY STROKE PHYSICIAN Unavailable Unavailable OROURKE, H NICOLE NEUROLOGY STROKE PHYSICIAN Unavailable Unavailable OROURKE, H NICOLE NEUROLOGY STROKE PHYSICIAN Unavailable Unavailable OROURKE, H NICOLE NEUROLOGY STROKE PHYSICIAN Unavailable Unavailable OROURKE, H NICOLE NEUROLOGY STROKE PHYSICIAN Unavailable Unavailable OROURKE, H NICOLE NEUROLOGY STROKE PHYSICIAN Unavailable Unavailable OROURKE, H NICOLE NEUROLOGY STROKE PHYSICIAN Unavailable Unavailable OROURKE, H NICOLE NEUROLOGY STROKE PHYSICIAN Unavailable Unavailable OROURKE, H NICOLE NEUROLOGY STROKE PHYSICIAN Unavailable Unavailable OROURKE, H NICOLE NEUROLOGY STROKE PHYSICIAN Unavailable Unavailable OROURKE, H NICOLE NEUROLOGY STROKE PHYSICIAN Unavailable Unavailable OROURKE, H NICOLE NEUROLOGY STROKE PHYSICIAN Unavailable Unavailable OROURKE, H NICOLE NEUROLOGY STROKE PHYSICIAN Unavailable Unavailable OROURKE, H NICOLE NEUROLOGY STROKE PHYSICIAN Unavailable Unavailable OROURKE, H NICOLE NEUROLOGY STROKE PHYSICIAN Unavailable Unavailable OROURKE, H NICOLE NEUROLOGY STROKE PHYSICIAN Unavailable Unavailable OROURKE, H NICOLE NEUROLOGY STROKE PHYSICIAN Unavailable Unavailable OROURKE, H NICOLE NEUROLOGY STROKE PHYSICIAN Unavailable Unavailable OROURKE, H NICOLE NEUROLOGY STROKE PHYSICIAN Unavailable Unavailable OROURKE, H NICOLE NEUROLOGY STROKE PHYSICIAN Unavailable Unavailable OROURKE, H NICOLE NEUROLOGY STROKE PHYSICIAN Unavailable Unavailable OROURKE, H NICOLE NEUROLOGY STROKE PHYSICIAN Unavailable Unavailable OROURKE, H NICOLE NEUROLOGY STROKE PHYSICIAN Unavailable Unavailable OROURKE, H NICOLE NEUROLOGY STROKE PHYSICIAN Unavailable Unavailable OROURKE, H NICOLE NEUROLOGY STROKE PHYSICIAN Unavailable Unavailable OROURKE, H NICOLE NEUROLOGY STROKE PHYSICIAN Unavailable Unavailable OROURKE, H NICOLE NEUROLOGY STROKE PHYSICIAN Unavailable Unavailable OROURKE, H NICOLE NEUROLOGY STROKE PHYSICIAN Unavailable Unavailable OROURKE, H NICOLE NEUROLOGY STROKE PHYSICIAN Unavailable Unavailable OROURKE, H NICOLE NEUROLOGY STROKE PHYSICIAN Unavailable Unavailable OROURKE, H NICOLE NEUROLOGY STROKE PHYSICIAN Unavailable Unavailable OROURKE, H NICOLE NEUROLOGY STROKE PHYSICIAN Unavailable Unavailable OROURKE, H NICOLE NEUROLOGY STROKE PHYSICIAN Unavailable Unavailable OROURKE, H NICOLE NEUROLOGY STROKE PHYSICIAN Unavailable Unavailable Marely IRIZARRY DPM Unavailable Unavailable [...] Unavailable REMINGTON, TANESHA PA Unavailable Unavailable REMINGTON, TANSEHA PA Unavailable Unavailable REMINGTON, TANESHA PA Unavailable [...] PA Unavailable Unavailable Juanita Falanga, A Jerrica AUTISM TEACHER Unavailable Unavailable [place] Falanga, A Jerrica AUTISM TEACHER Unavailable Unavailable [place] Falanga, A Jerrica AUTISM TEACHER Unavailable Unavailable Juanita Falanga, A Jerrica AUTISM TEACHER Unavailable Unavailable Juanita Falanga, A Jerrica AUTISM TEACHER Unavailable Unavailable Juanita Falanga, A Jerrica AUTISM TEACHER Unavailable Unavailable [place] Falanga, A Jerrica AUTISM TEACHER Unavailable Unavailable Juanita Falanga, A Jerrica AUTISM TEACHER Unavailable Unavailable [place] Falanga, A Jerrica AUTISM TEACHER Unavailable Unavailable Juanita Falanga, A Jerrica AUTISM TEACHER Unavailable Unavailable [place] Falanga, A Jerrica AUTISM TEACHER Unavailable Unavailable Juanita Falanga, A Jerrica AUTISM TEACHER Unavailable Unavailable [place] Falanga, A Jerrica AUTISM TEACHER Unavailable Unavailable Juanita Falanga, A Jerrica AUTISM TEACHER Unavailable Unavailable Juanita Falanga, A Jerrica AUTISM TEACHER Unavailable Unavailable [place] Falanga, A Jerrica AUTISM TEACHER Unavailable Unavailable Juanita Falanga, A Ejrrica AUTISM TEACHER Unavailable Unavailable Juanita Falanga, A Jerrica AUTISM TEACHER Unavailable Unavailable Juanita Falanga, A Jerrica AUTISM TEACHER Unavailable Unavailable [place] Falanga, A Jerrica AUTISM TEACHER Unavailable Unavailable Juanita Falanga, A Jerrica AUTISM TEACHER Unavailable Unavailable Juanita Falanga, A Jerrica AUTISM TEACHER Unavailable Unavailable Juanita Falanga, A Ejrrica AUTISM TEACHER Unavailable Unavailable [place] Falanga, A Jerrica AUTISM TEACHER Unavailable Unavailable Juanita Falanga, A Jerrica AUTISM TEACHER Unavailable Unavailable Juanita Falanga, A Jerrica AUTISM TEACHER Unavailable Unavailable [place] Falanga, A Jerrica AUTISM TEACHER Unavailable Unavailable Juanita Falanga, A Jerrica AUTISM TEACHER Unavailable Unavailable [place] Falanga, A Jerrica AUTISM TEACHER Unavailable Unavailable Juanita Falanga, A Jerrica AUTISM TEACHER Unavailable Unavailable Juanita Falanga, A Jerrica AUTISM TEACHER Unavailable Unavailable OROURKE, H NICOLE NEUROLOGY STROKE PHYSICIAN Unavailable Unavailable OROURKE, H NICOLE NEUROLOGY STROKE PHYSICIAN Unavailable Unavailable OROURKE, H NICOLE NEUROLOGY STROKE PHYSICIAN Unavailable Unavailable OROURKE, H NICOLE NEUROLOGY STROKE PHYSICIAN Unavailable Unavailable OROURKE, H NICOLE NEUROLOGY STROKE PHYSICIAN Unavailable Unavailable OROURKE, H NICOLE NEUROLOGY STROKE PHYSICIAN Unavailable Unavailable OROURKE, H NICOLE NEUROLOGY STROKE PHYSICIAN Unavailable Unavailable OROURKE, H NICOLE NEUROLOGY STROKE PHYSICIAN Unavailable Unavailable OROURKE, H NICOLE NEUROLOGY STROKE PHYSICIAN Unavailable Unavailable OROURKE, H NICOLE NEUROLOGY STROKE PHYSICIAN Unavailable Unavailable OROURKE, H NICOLE NEUROLOGY STROKE PHYSICIAN Unavailable Unavailable OROURKE, H NICOLE NEUROLOGY STROKE PHYSICIAN Unavailable Unavailable OROURKE, H NICOLE NEUROLOGY STROKE PHYSICIAN Unavailable Unavailable OROURKE, H NICOLE NEUROLOGY STROKE PHYSICIAN Unavailable Unavailable OROURKE, H NICOLE NEUROLOGY STROKE PHYSICIAN Unavailable Unavailable OROURKE, H NICOLE NEUROLOGY STROKE PHYSICIAN Unavailable Unavailable OROURKE, H NICOLE NEUROLOGY STROKE PHYSICIAN Unavailable Unavailable OROURKE, H NICOLE NEUROLOGY STROKE PHYSICIAN Unavailable Unavailable OROURKE, H NICOLE NEUROLOGY STROKE PHYSICIAN Unavailable Unavailable OROURKE, H NICOLE NEUROLOGY STROKE PHYSICIAN Unavailable Unavailable OROURKE, H NICOLE NEUROLOGY STROKE PHYSICIAN Unavailable Unavailable OROURKE, H NICOLE NEUROLOGY STROKE PHYSICIAN Unavailable Unavailable OROURKE, H NICOLE NEUROLOGY STROKE PHYSICIAN Unavailable Unavailable OROURKE, H NICOLE NEUROLOGY STROKE PHYSICIAN Unavailable Unavailable OROURKE, H NICOLE NEUROLOGY STROKE PHYSICIAN Unavailable Unavailable OROURKE, H NICOLE NEUROLOGY STROKE PHYSICIAN Unavailable Unavailable OROURKE, H NICOLE NEUROLOGY STROKE PHYSICIAN Unavailable Unavailable OROURKE, H NICOLE NEUROLOGY STROKE PHYSICIAN Unavailable Unavailable OROURKE, H NICOLE NEUROLOGY STROKE PHYSICIAN Unavailable Unavailable OROURKE, H NICOLE NEUROLOGY STROKE PHYSICIAN Unavailable Unavailable OROURKE, H NICOLE NEUROLOGY STROKE PHYSICIAN Unavailable Unavailable OROURKE, H NICOLE NEUROLOGY STROKE PHYSICIAN Unavailable Unavailable OROURKE, H NICOLE NEUROLOGY STROKE PHYSICIAN Unavailable Unavailable OROURKE, H NICOLE NEUROLOGY STROKE PHYSICIAN Unavailable Unavailable OROURKE, H NICOLE NEUROLOGY STROKE PHYSICIAN Unavailable Unavailable OROURKE, H NICOLE NEUROLOGY STROKE PHYSICIAN Unavailable Unavailable OROURKE, H NICOLE NEUROLOGY STROKE PHYSICIAN Unavailable Unavailable OROURKE, H NICOLE NEUROLOGY STROKE PHYSICIAN Unavailable Unavailable OROURKE, H NICOLE NEUROLOGY STROKE PHYSICIAN Unavailable Unavailable OROURKE, H NICOLE NEUROLOGY STROKE PHYSICIAN Unavailable Unavailable OROURKE, H NICOLE NEUROLOGY STROKE PHYSICIAN Unavailable Unavailable OROURKE, H NICOLE NEUROLOGY STROKE PHYSICIAN Unavailable Unavailable OROURKE, H NICOLE NEUROLOGY STROKE PHYSICIAN Unavailable Unavailable OROURKE, H NICOLE NEUROLOGY STROKE PHYSICIAN Unavailable Unavailable OROURKE, H NICOLE NEUROLOGY STROKE PHYSICIAN Unavailable Unavailable OROURKE, H NICOLE NEUROLOGY STROKE PHYSICIAN Unavailable Unavailable OROURKE, H NICOLE NEUROLOGY STROKE PHYSICIAN Unavailable Unavailable OROURKE, H NICOLE NEUROLOGY STROKE PHYSICIAN Unavailable Unavailable OROURKE, H NICOLE NEUROLOGY STROKE PHYSICIAN Unavailable Unavailable OROURKE, H NICOLE NEUROLOGY STROKE PHYSICIAN Unavailable Unavailable OROURKE, H NICOLE NEUROLOGY STROKE PHYSICIAN Unavailable Unavailable OROURKE, H NICOLE NEUROLOGY STROKE PHYSICIAN Unavailable Unavailable OROURKE, H NICOLE NEUROLOGY STROKE PHYSICIAN Unavailable Unavailable OROURKE, H NICOLE NEUROLOGY STROKE PHYSICIAN Unavailable Unavailable OROURKE, H NICOLE NEUROLOGY STROKE PHYSICIAN Unavailable Unavailable OROURKE, H NICOLE NEUROLOGY STROKE PHYSICIAN Unavailable Unavailable YVETTE VALENCIA MD Unavailable Unavailable [...] Richard SAVAGE Unavailable Unavailable Fish, B Richard SVAAGE Unavailable Unavailable Fish, B Richard SAVAGE Unavailable [...] Unavailable Puentes, Trent Maloney MD Unavailable Unavailable Punetes, Trent Maloney MD Unavailable Unavailable Puentes, Trent [...] is protected by Article 27-F of the [facility] Public Health law. If you continue you may have access to information: Regarding HIV / AIDS; Provided by facilities licensed or operated by the [facility] Office of Mental Health; or Provided by the [facility] Office for People With Developmental Disabilities. If such information is present, then the following [facility] mandated warning applies: This information has been [...] ) Propensity to adverse reactions LATEX LATEX [facility] Propensity to adverse reactions ADHESIVE ADHESIVE [facility] Drug allergy CODEINE CODEINE [facility] Family History Family Member Name Family Member Gender Family Member Status Date o f Status Description Data Source(s) Unknown Unknown Problem [facility] ([facility]) Encounters Encounter Providers Location Date Indications Data Source(s ) Outpatient Attender: JOIE Rios: Gauri kan MD 09/17/2021 12:00:00 AM [facility] Unknown [address] [facility] [address] 09/12/2021 12:00:00 AM EST eCW1 (Critical access hospital) Unknown [address] [facility] [address] 09/11/2021 12:00:00 AM EST eCW1 ([facility]) Unknown [address] [facility] Y [address] 09/09/2021 12:00:00 AM EST eCW1 ([facility]) Outpatient [address] [facility] Y [address] 09/04/2021 12:00:00 AM EST eCW1 ([facility]) Unknown [address] [facility] Y [address] 09/03/2021 12:00:00 AM EST eCW1 ([facility]) Unknown [address] [facility] Y [address] 09/03/2021 12:00:00 AM EST eCW1 ([facility]) Outpatient Attender: JOIE Brownerrer: Gauri kan MD 09/03/2021 12:00:00 AM [facility] Unknown [address] [facility] Y [address] 09/02/2021 12:00:00 AM EST eCW1 [facility] Unknown [address] [facility] Y [address] 08/26/2021 12:00:00 AM EST eCW1 ([facility]) Unknown [address] [facility] [address] 08/16/2021 12:00:00 AM EST eCW1 ([facility]) Unknown [address] [facility] [address] 08/15/2021 12:00:00 AM EST eCW1 ([facility]) Unknown [address] [facility] Y [address] 08/12/2021 12:00:00 AM EST eCW1 ([facility]) Outpatient Attender: ITZEL IRIZARRY [facility] Office 10/2020 10:00:00 AM EDT [facility] ([facility] Unknown [address] [facility] [address] 07/30/2021 12:00:00 AM EDT eCW1 ([facility]) Unknown [address] [facility], [place] [address] 07/29/2021 12:00:00 AM EDT eCW1 ([facility]) Unknown [address] [facility] Y [address] 07/23/2021 12:00:00 AM EDT eCW1 ([facility]) Outpatient [address] [facility] [address] 07/22/2021 12:00:00 AM EDT eCW1 ([facility]) Unknown [address] [facility] Y [address] 07/22/2021 12:00:00 AM EDT eCW1 ([facility]) OFFICE OUTPATIENT VISIT 15 MINUTES Attender: Aidee GANT PA-C Physical Therapy 07/19/2021 01:00:00 PM EDT [facility] ([facility]) Unknown [address] [facility] [address] 07/15/2021 12:00:00 AM EDT eCW1 ([facility]) Unknown [address] [facility] [place] [address] 07/12/2021 12:00:00 AM EDT eCW1 ([facility]) Unknown [address] [facility] Y [address] 07/04/2021 12:00:00 AM EDT eCW1 ([facility]) OFFICE OUTPATIENT VISIT 15 MINUTES Attender: CATRACHITA Smart ical Therapy 07/03/2021 01:45:00 PM EDT MED[facility] ([facility]) Unknown [address] [facility] Y [address] 07/03/2021 12:00:00 AM EDT eCW1 ([facility]) Outpatient Attender: ITZEL IRIZARRY [facility] Office 06/06 10:45:00 AM EDT [facility] ([facility] Unknown [address] [facility] [address] 06/28/2021 12:00:00 AM EDT eCW1 (Critical access hospital) Outpatient [address] [facility] [address] 06/28/2021 12:00:00 AM EDT eCW1 (Critical access hospital) Outpatient Attender: Aidee GANT PA-C Physical Therapy 06/21/2021 03:30:00 PM EDT [facility] ([facility]) Unknown [address] [facility], [place] [address] 06/21/2021 12:00:00 AM EDT eCW1 (Critical access hospital) Unknown [address] [facility], [place] [address] 06/17/2021 12:00:00 AM EDT eCW1 (Critical access hospital) Outpatient [address] [facility] [address] 06/13/2021 12:00:00 AM EDT eCW1 (Critical access hospital) Unknown [address] [facility] [address] 06/07/2021 12:00:00 AM EDT eCW1 (Critical access hospital) Outpatient Attender: ITZEL IRIZARRY [facility] Office 05/07 11:00:00 AM EDT [facility] ([facility] Outpatient Referrer: YVETTE VALENCIA MD SJP.[email or web address] 07:40:13 AM EDT - 05/31/2021 11:52:12 AM EDT [facility] Unknown [address] [facility] [address] 05/27/2021 12:00:00 AM EDT eCW1 (Critical access hospital) Outpatient Attender: Haider Purcell/Giovanni/Gricelda gray 05/23/2021 01:15:00 PM EDT MED[facility] ([facility]) OFFICE OUTPATIENT VISIT 15 MINUTES Attender: Marielena LANDRY Physical Therapy 05/21/2021 02:45:00 PM EDT [facility] ([facility]) Unknown [address] [facility] [address] 05/17/2021 12:00:00 AM EDT eCW1 ([facility]) Outpatient [address] [facility] Y [address] 05/16/2021 12:00:00 AM EDT eCW1 ([facility]) Unknown [address] [facility] Y [address] 05/16/2021 12:00:00 AM EDT eCW1 ([facility]) Unknown [address] [facility] Y [address] 05/15/2021 12:00:00 AM EDT eCW1 ([facility]) Unknown [address] [facility] Y [address] 05/08/2021 12:00:00 AM EDT eCW1 ([facility]) Unknown [address] [facility] Y [address] 05/08/2021 12:00:00 AM EDT eCW1 ([facility]) Unknown [address] [facility] Y [address] 05/08/2021 12:00:00 AM EDT eCW1 ([facility]) Outpatient Attender: ITZEL IRIZARRY [facility] Office 04/05 10:30:00 AM EDT [facility] ([facility] Unknown [address] [facility] Y [address] 04/29/2021 12:00:00 AM EDT eCW1 ([facility]) Outpatient [address] [facility] Y [address] 04/25/2021 12:00:00 AM EDT eCW1 ([facility]) Outpatient Attender: YVETTE VALENCIA MDReferrer: NICOLE OROURKE NEUROLOGY STROKE PHYSICIAN SJP .[email or web address] 04/19/2021 12:58:45 PM EDT - 04/19/2021 01:45:40 PM EDT [facility] Outpatient Attender: ITZEL IRIZARRY [facility] Office 04/04 11:15:00 AM EDT MED[facility] ([facility] Unknown [address] [facility], [facility] [address] 04/17/2021 12:00:00 AM EDT eCW1 ([facility]) Unknown [address] [facility] Y [address] 04/15/2021 12:00:00 AM EDT eCW1 ([facility]) Outpatient [address] [facility] [address] 04/15/2021 12:00:00 AM EDT eCW1 ([facility]) Unknown [address] [facility] Y [address] 04/11/2021 12:00:00 AM EDT eCW1 ([facility]) Outpatient [address] [facility] Y [address] 04/10/2021 12:00:00 AM EDT eCW1 ([facility]) Unknown [address] [facility] [address] 04/04/2021 12:00:00 AM EDT eCW1 ([facility]) Outpatient Attender: Jerrica almanzar FNPAttender: KRISTAN SWAIN MDConsultant: NICOLE OROURKE NP 03/29/2021 01:56:00 PM EDT - 03/30/2021 02:35:00 PM EDT [facility] Patient discharged. Unknown [address] [place] [address] Y [address] 03/29/2021 12:00:00 AM EDT eCW1 ([facility]) Emergency Attender: YOHANA CASON MDConsultant: NICOLE Kirkpatrick P 03/22/2021 04:02:00 PM EDT - 03/22/2021 06:26:00 PM EDT [facility] Patient discharged. Outpatient Attender: ITZEL IRIZARRY [facility] Office 03/05 01:00:00 PM EDT MED[facility] ([facility] Unknown [address] [facility], [facility] [address] 03/18/2021 12:00:00 AM EDT eCW1 (Critical access hospital) ([facility]) Transition of Care Visit [address] [place] [address] 03/15/2021 12:00:00 AM EDT eCW1 ([facility]) Outpatient Attender: ITZEL IRIZARRY [facility] Office 05/2021 10:30:00 AM EDT [facility] ([facility] Unknown [address] [facility], [place] [address] 03/11/2021 12:00:00 AM EDT eCW1 (Critical access hospital) Unknown [address] [facility] [place] [address] 03/07/2021 12:00:00 AM EDT eCW1 (Critical access hospital) Outpatient Attender: ITZEL IRIZARRY [facility] Office 02/03 10:30:00 AM EDT [facility] ([facility] Outpatient Attender: Richard Pond MDConsultant: NICOLE OROURKE NP 02/25/2021 12:08:27 PM EDT [facility] Unknown [address] [facility], [place] [address] 02/25/2021 12:00:00 AM EDT eCW1 (Critical access hospital) Outpatient Attender: Marielena LANDRY Physical Therapy 03:45:00 PM EDT MED[facility] ([facility]) Unknown [address] [facility] [address] 02/14/2021 12:00:00 AM EDT eCW1 ([facility]) Unknown [address] [facility] [address] 02/14/2021 12:00:00 AM EDT eCW1 ([facility]) Outpatient Attender: ITZEL IRIZARRY [facility] Office 02/02 11:00:00 AM EDT [facility] ([facility] Unknown [address] [facility] Y [address] 02/12/2021 12:00:00 AM EDT eCW1 ([facility]) Unknown [address] [facility] [place] [address] 02/12/2021 12:00:00 AM EDT eCW1 ([facility]) Unknown [address] [facility] [place] [address] 02/11/2021 12:00:00 AM EDT eCW1 ([facility]) Outpatient Attender: ITZEL IRIZARRY [facility] Office 01/05 11:15:00 AM EDT MEDENT ([facility] Unknown [address] [facility] Y [address] 01/28/2021 12:00:00 AM EDT eCW1 [facility] Outpatient [address] [facility] [address] Y [address] 01/25/2021 12:00:00 AM EDT eCW1 ([facility]) Unknown [address] [facility] Y [address] 01/24/2021 12:00:00 AM EDT eCW1 ([facility]) Unknown [address] [facility] Y [address] 01/21/2021 12:00:00 AM EDT eCW1 ([facility]) Unknown [address] [facility] [place] [address] 01/21/2021 12:00:00 AM EDT eCW1 ([facility]) Unknown [address] [facility] [place] [address] 01/15/2021 12:00:00 AM EDT eCW1 ([facility]) Unknown [address] [facility] [place] [address] 01/08/2021 12:00:00 AM EDT eCW1 ([facility]) Outpatient Attender: JEFFREY Purcell/Giovanni/Danny stuart/Neha 12/26/2020 11:30:00 AM EDT MEDENT ([facility]) Unknown [address] [facility] [place] [address] 12/26/2020 12:00:00 AM EDT eCW1 ([facility]) Unknown [address] [facility] [place] [address] 12/25/2020 12:00:00 AM EDT eCW1 ([facility]) Office Visit Attender: Marielena LANDRY Physical Therapy 03:45:00 PM EDT MEDENT ([facility]) Unknown [address] [facility] [place] [address] 12/12/2020 12:00:00 AM EST eCW1 ([facility]) Unknown [address] [facility] [place] [address] 12/12/2020 12:00:00 AM EST eCW1 ([facility]) Outpatient [address] [facility] [place] [address] 12/11/2020 12:00:00 AM EST eCW1 ([facility]) Unknown [address] [facility] [place] [address] 12/11/2020 12:00:00 AM EST eCW1 ([facility]) Outpatient [address] [facility] [place] [address] 12/10/2020 12:00:00 AM EST eCW1 ([facility]) Outpatient Attender: ITZEL IRIZARRY [facility] Office 02/2021 02:15:00 PM EST MEDENT ([facility] Unknown [address] [facility] Y [address] 12/07/2020 12:00:00 AM EST eCW1 ([facility]) Unknown [address] [facility] Y [address] 12/07/2020 12:00:00 AM EST eCW1 ([facility]) Unknown [address] [facility] Y [address] 12/06/2020 12:00:00 AM EST eCW1 ([facility]) Unknown [address] [facility] Y [address] 12/05/2020 12:00:00 AM EST eCW1 ([facility]) Unknown [address] [facility] [address] [place] [address] 12/03/2020 12:00:00 AM EST eCW1 ([facility]) Unknown [address] [facility] [address] Y [address] 11/29/2020 12:00:00 AM EST eCW1 ([facility]) Unknown [address] [facility] Y [address] 11/27/2020 12:00:00 AM EST eCW1 ([facility]) Unknown [address] [facility] [address] Y [address] 11/22/2020 12:00:00 AM EST eCW1 ([facility]) Outpatient [address] [facility] Y [address] 11/20/2020 12:00:00 AM EST eCW1 ([facility]) Outpatient Attender: TANESHA crow 11/17/2020 08:35:00 AM EST [facility] ([facility]) Unknown [address] [facility] [place] [address] 11/09/2020 12:00:00 AM EST eCW1 ([facility]) Outpatient Attender: ITZEL IRIZARRY [facility] Office 11/2020 01:30:00 PM EST [facility] ([facility] Unknown [address] [facility] [place] [address] 10/30/2020 12:00:00 AM EST eCW1 ([facility]) Outpatient [address] [facility] Y [address] 10/09/2020 12:00:00 AM EST eCW1 ([facility]) Unknown [address] [facility] Y [address] 10/02/2020 12:00:00 AM EST eCW1 ([facility]) Unknown [address] [facility] Y [address] 09/24/2020 12:00:00 AM EST eCW1 ([facility]) Outpatient [address] [facility] Y [address] 09/24/2020 12:00:00 AM EST eCW1 ([facility]) Unknown [address] [facility] [address] [place] [address] 09/21/2020 12:00:00 AM EST eCW1 ([facility]) Unknown [address] [facility] [address] Y [address] 09/21/2020 12:00:00 AM EST eCW1 ([facility]) Unknown [address] [facility] Y [address] 09/11/2020 12:00:00 AM EST eCW1 ([facility]) Unknown [address] [facility] Y [address] 09/10/2020 12:00:00 AM EST eCW1 ([facility]) Unknown [address] [facility] Y [address] 09/06/2020 12:00:00 AM EST eCW1 (Critical [facility] hospital) Unknown [address] [facility] [address] 09/06/2020 12:00:00 AM EST eCW1 (Critical access hospital) Office Visit Attender: ITZEL IRIZARRY [facility] Office 11/2019 09:30:00 AM EST [facility] ([facility] Unknown [address] [facility] [address] 09/03/2020 12:00:00 AM EST eCW1 (Critical access hospital) Unknown [address] [facility] [address] 08/23/2020 12:00:00 AM EST eCW1 (Critical access hospital) Unknown [address] [facility] [address] 08/20/2020 12:00:00 AM EST eCW1 (Critical access hospital) Office Visit Attender: ITZEL IRIZARRY [facility] Office 08/05 01:30:00 PM EST [facility] ([facility] Unknown [address] [facility] [address] 08/13/2020 12:00:00 AM EST eCW1 (Critical access hospital) Unknown [address] [facility] [address] 08/09/2020 12:00:00 AM EST eCW1 (Critical access hospital) (WND MANUELTCH) Stretcher Required Patients [address] [place] [address] 08/09/2020 12:00:00 AM EST eCW1 ([facility]) Unknown [address] [facility] [address] 08/08/2020 12:00:00 AM EST eCW1 (Critical access hospital) Outpatient [address] [facility] [address] 08/08/2020 12:00:00 AM EST eCW1 (Critical access hospital) Unknown [address] [facility] [address] 08/08/2020 12:00:00 AM EST eCW1 (Critical access hospital) Outpatient [address] [facility] [address] 08/07/2020 12:00:00 AM EST eCW1 (Critical access hospital) Unknown [address] [facility] [address] 08/07/2020 12:00:00 AM EST eCW1 (Critical access hospital) Office Visit Attender: ITEZL IRIZARRY [facility] Office 11/2019 02:00:00 PM EST MED[facility] ([facility] Unknown [address] [facility] [address] 08/06/2020 12:00:00 AM EST eCW1 (Critical access hospital) (WNKristyn YOON) Stretcher Required Patients [address] [place] [address] 07/26/2020 12:00:00 AM EDT eCW1 ([facility]) Office Visit Attender: ITZEL IRIZARRY [facility] Office 07/05 08:45:00 AM EDT MEDENT ([facility] Outpatient [address] [facility] [address] 07/17/2020 12:00:00 AM EDT eCW1 (Critical access hospital) Outpatient Attender: YVETTE VALENCIA MDReferrer: YVETTE VALENCIA MD SJP .CT-SJP 07/03/2020 11:53:21 AM EDT [facility] Immunizations Vaccine Date Status Description Data Source(s) COVID-19 VACCINE Moderna 08/09/2021 12:00:00 AM EDT completed [employer] Vaccine Series Complete: YESThis Data wa s Submitted to [facility] Via [employer]. COVID-19 dose #2 given elsewhere Unspecified 01/07/2021 03:4 8:00 PM EDT completed eCW1 (Critical access hospital) COVID-19 dose #2 given elsewhere Unspecified 01/07/2021 03:4 8:00 PM EDT completed eCW1 (Critical access hospital) COVID-19 dose #2 given elsewhere Unspecified 01/07/2021 03:4 8:00 PM EDT completed eCW1 (Critical access hospital) COVID-19 dose #2 given elsewhere Unspecified 01/07/2021 03:4 8:00 PM EDT completed eCW1 (Critical access hospital) COVID-19 dose #2 given elsewhere Unspecified 01/07/2021 03:4 8:00 PM EDT completed eCW1 (Critical access hospital) COVID-19 dose #2 given elsewhere Unspecified 01/07/2021 03:4 8:00 PM EDT completed eCW1 (Critical access hospital) COVID-19 dose #2 given elsewhere Unspecified 01/07/2021 03:4 8:00 PM EDT completed eCW1 (Critical access hospital) COVID-19 dose #2 given elsewhere Unspecified 01/07/2021 03:4 8:00 PM EDT completed eCW1 (Critical access hospital) COVID-19 dose #2 given elsewhere Unspecified 01/07/2021 03:4 8:00 PM EDT completed eCW1 (Critical access hospital) COVID-19 dose #2 given elsewhere Unspecified 01/07/2021 03:4 8:00 PM EDT completed eCW1 (Critical access hospital) COVID-19 dose #2 given elsewhere Unspecified 01/07/2021 03:4 8:00 PM EDT completed eCW1 (Critical access hospital) COVID-19 dose #2 given elsewhere Unspecified 01/07/2021 03:4 8:00 PM EDT completed eCW1 (Critical access hospital) COVID-19 dose #2 given elsewhere Unspecified 01/07/2021 03:4 8:00 PM EDT completed eCW1 (Critical access hospital) COVID-19 dose #2 given elsewhere Unspecified 01/07/2021 03:4 8:00 PM EDT completed eCW1 (Critical access hospital) COVID-19 dose #2 given elsewhere Unspecified 01/07/2021 03:4 8:00 PM EDT completed eCW1 (Critical access hospital) COVID-19 dose #2 given elsewhere Unspecified 01/07/2021 03:4 8:00 PM EDT completed eCW1 (Critical access hospital) COVID-19 dose #2 given elsewhere Unspecified 01/07/2021 03:4 8:00 PM EDT completed eCW1 (Critical access hospital) COVID-19 dose #2 given elsewhere Unspecified 01/07/2021 03:4 8:00 PM EDT completed eCW1 (Critical access hospital) COVID-19 dose #2 given elsewhere Unspecified 01/07/2021 03:4 8:00 PM EDT completed eCW1 (Critical access hospital) COVID-19 dose #2 given elsewhere Unspecified 01/07/2021 03:4 8:00 PM EDT completed eCW1 (Critical access hospital) COVID-19 dose #2 given elsewhere Unspecified 01/07/2021 03:4 8:00 PM EDT completed eCW1 (Critical access hospital) COVID-19 dose #2 given elsewhere Unspecified 01/07/2021 03:4 8:00 PM EDT completed eCW1 (Critical access hospital) COVID-19 dose #2 given elsewhere Unspecified 01/07/2021 03:4 8:00 PM EDT completed eCW1 (Critical access hospital) COVID-19 dose #2 given elsewhere Unspecified 01/07/2021 03:4 8:00 PM EDT completed eCW1 (Critical access hospital) COVID-19 dose #2 given elsewhere Unspecified 01/07/2021 03:4 8:00 PM EDT completed eCW1 (Critical access hospital) COVID-19 dose #2 given elsewhere Unspecified 01/07/2021 03:4 8:00 PM EDT completed eCW1 (Critical access hospital) COVID-19 dose #2 given elsewhere Unspecified 01/07/2021 03:4 8:00 PM EDT completed eCW1 (Critical access hospital) COVID-19 dose #2 given elsewhere Unspecified 01/07/2021 03:4 8:00 PM EDT completed eCW1 (Critical access hospital) COVID-19 dose #2 given elsewhere Unspecified 01/07/2021 03:4 8:00 PM EDT completed eCW1 (Critical access hospital) COVID-19 dose #2 given elsewhere Unspecified 01/07/2021 03:4 8:00 PM EDT completed eCW1 (Critical access hospital) COVID-19 dose #2 given elsewhere Unspecified 01/07/2021 03:4 8:00 PM EDT completed eCW1 (Critical access hospital) COVID-19 dose #2 given elsewhere Unspecified 01/07/2021 03:4 8:00 PM EDT completed eCW1 (Critical access hospital) COVID-19 dose #2 given elsewhere Unspecified 01/07/2021 03:4 8:00 PM EDT completed eCW1 (Critical access hospital) COVID-19 dose #2 given elsewhere Unspecified 01/07/2021 03:4 8:00 PM EDT completed eCW1 (Critical access hospital) COVID-19 dose #2 given elsewhere Unspecified 01/07/2021 03:4 8:00 PM EDT completed eCW1 (Critical access hospital) COVID-19 dose #2 given elsewhere Unspecified 01/07/2021 03:4 8:00 PM EDT completed eCW1 (Critical access hospital) COVID-19 dose #2 given elsewhere Unspecified 01/07/2021 03:4 8:00 PM EDT completed eCW1 (Critical access hospital) COVID-19 dose #2 given elsewhere Unspecified 01/07/2021 03:4 8:00 PM EDT completed eCW1 (Critical access hospital) COVID-19 dose #2 given elsewhere Unspecified 01/07/2021 03:4 8:00 PM EDT completed eCW1 (Critical access hospital) COVID-19 dose #2 given elsewhere Unspecified 01/07/2021 03:4 8:00 PM EDT completed eCW1 (Critical access hospital) COVID-19 dose #2 given elsewhere Unspecified 01/07/2021 03:4 8:00 PM EDT completed eCW1 (Critical access hospital) COVID-19 dose #2 given elsewhere Unspecified 01/07/2021 03:4 8:00 PM EDT completed eCW1 (Critical access hospital) COVID-19 dose #2 given elsewhere Unspecified 01/07/2021 03:4 8:00 PM EDT completed eCW1 (Critical access hospital) COVID-19 dose #2 given elsewhere Unspecified 01/07/2021 03:4 8:00 PM EDT completed eCW1 (Critical access hospital) COVID-19 dose #2 given elsewhere Unspecified 01/07/2021 03:4 8:00 PM EDT completed eCW1 (Critical access hospital) COVID-19 dose #2 given elsewhere Unspecified 01/07/2021 03:4 8:00 PM EDT completed eCW1 (Critical access hospital) COVID-19 dose #2 given elsewhere Unspecified 01/07/2021 03:4 8:00 PM EDT completed eCW1 (Critical access hospital) COVID-19 dose #2 given elsewhere Unspecified 01/07/2021 03:4 8:00 PM EDT completed eCW1 (Critical access hospital) COVID-19 dose #2 given elsewhere Unspecified 01/07/2021 03:4 8:00 PM EDT completed eCW1 (Critical access hospital) COVID-19 dose #2 given elsewhere Unspecified 01/07/2021 03:4 8:00 PM EDT completed eCW1 (Critical access hospital) COVID-19 dose #2 given elsewhere Unspecified 01/07/2021 03:4 8:00 PM EDT completed eCW1 (Critical access hospital) COVID-19 dose #2 given elsewhere Unspecified 01/07/2021 03:4 8:00 PM EDT completed eCW1 (Critical access hospital) COVID-19 dose #2 given elsewhere Unspecified 01/07/2021 03:4 8:00 PM EDT completed eCW1 (Critical access hospital) COVID-19 dose #2 given elsewhere Unspecified 01/07/2021 03:4 8:00 PM EDT completed eCW1 (Critical access hospital) COVID-19 dose #2 given elsewhere Unspecified 01/07/2021 03:4 8:00 PM EDT completed eCW1 (Critical access hospital) COVID-19 VACCINE Moderna 01/07/2021 12:00:00 AM EDT completed [employer] Vaccine Series Complete: YESThis Data wa s Submitted to [facility] Via [employer]. COVID-19 dose #1 given elsewhere Unspecified 12/11/2020 10:0 8:00 AM EST completed eCW1 (Critical access hospital) COVID-19 dose #1 given elsewhere Unspecified 12/11/2020 10:0 8:00 AM EST completed eCW1 (Critical access hospital) COVID-19 dose #1 given elsewhere Unspecified 12/11/2020 10:0 8:00 AM EST completed eCW1 (Critical access hospital) COVID-19 dose #1 given elsewhere Unspecified 12/11/2020 10:0 8:00 AM EST completed eCW1 (Critical access hospital) COVID-19 dose #1 given elsewhere Unspecified 12/11/2020 10:0 8:00 AM EST completed eCW1 (Critical access hospital) COVID-19 dose #1 given elsewhere Unspecified 12/11/2020 10:0 8:00 AM EST completed eCW1 (Critical access hospital) COVID-19 dose #1 given elsewhere Unspecified 12/11/2020 10:0 8:00 AM EST completed eCW1 (Critical access hospital) COVID-19 dose #1 given elsewhere Unspecified 12/11/2020 10:0 8:00 AM EST completed eCW1 (Critical access hospital) COVID-19 dose #1 given elsewhere Unspecified 12/11/2020 10:0 8:00 AM EST completed eCW1 (Critical access hospital) COVID-19 dose #1 given elsewhere Unspecified 12/11/2020 10:0 8:00 AM EST completed eCW1 (Critical access hospital) COVID-19 dose #1 given elsewhere Unspecified 12/11/2020 10:0 8:00 AM EST completed eCW1 (Critical access hospital) COVID-19 dose #1 given elsewhere Unspecified 12/11/2020 10:0 8:00 AM EST completed eCW1 (Critical access hospital) COVID-19 dose #1 given elsewhere Unspecified 12/11/2020 10:0 8:00 AM EST completed eCW1 (Critical access hospital) COVID-19 dose #1 given elsewhere Unspecified 12/11/2020 10:0 8:00 AM EST completed eCW1 (Critical access hospital) COVID-19 dose #1 given elsewhere Unspecified 12/11/2020 10:0 8:00 AM EST completed eCW1 (Critical access hospital) COVID-19 dose #1 given elsewhere Unspecified 12/11/2020 10:0 8:00 AM EST completed eCW1 (Critical access hospital) COVID-19 dose #1 given elsewhere Unspecified 12/11/2020 10:0 8:00 AM EST completed eCW1 (Critical access hospital) COVID-19 dose #1 given elsewhere Unspecified 12/11/2020 10:0 8:00 AM EST completed eCW1 (Critical access hospital) COVID-19 dose #1 given elsewhere Unspecified 12/11/2020 10:0 8:00 AM EST completed eCW1 (Critical access hospital) COVID-19 dose #1 given elsewhere Unspecified 12/11/2020 10:0 8:00 AM EST completed eCW1 (Critical access hospital) COVID-19 dose #1 given elsewhere Unspecified 12/11/2020 10:0 8:00 AM EST completed eCW1 (Critical access hospital) COVID-19 dose #1 given elsewhere Unspecified 12/11/2020 10:0 8:00 AM EST completed eCW1 (Critical access hospital) COVID-19 dose #1 given elsewhere Unspecified 12/11/2020 10:0 8:00 AM EST completed eCW1 (Critical access hospital) COVID-19 dose #1 given elsewhere Unspecified 12/11/2020 10:0 8:00 AM EST completed eCW1 (Critical access hospital) COVID-19 dose #1 given elsewhere Unspecified 12/11/2020 10:0 8:00 AM EST completed eCW1 (Critical access hospital) COVID-19 dose #1 given elsewhere Unspecified 12/11/2020 10:0 8:00 AM EST completed eCW1 (Critical access hospital) COVID-19 dose #1 given elsewhere Unspecified 12/11/2020 10:0 8:00 AM EST completed eCW1 (Critical access hospital) COVID-19 dose #1 given elsewhere Unspecified 12/11/2020 10:0 8:00 AM EST completed eCW1 (Critical access hospital) COVID-19 dose #1 given elsewhere Unspecified 12/11/2020 10:0 8:00 AM EST completed eCW1 (Critical access hospital) COVID-19 dose #1 given elsewhere Unspecified 12/11/2020 10:0 8:00 AM EST completed eCW1 (Critical access hospital) COVID-19 dose #1 given elsewhere Unspecified 12/11/2020 10:0 8:00 AM EST completed eCW1 (Critical access hospital) COVID-19 dose #1 given elsewhere Unspecified 12/11/2020 10:0 8:00 AM EST completed eCW1 (Critical access hospital) COVID-19 dose #1 given elsewhere Unspecified 12/11/2020 10:0 8:00 AM EST completed eCW1 (Critical access hospital) COVID-19 dose #1 given elsewhere Unspecified 12/11/2020 10:0 8:00 AM EST completed eCW1 (Critical access hospital) COVID-19 dose #1 given elsewhere Unspecified 12/11/2020 10:0 8:00 AM EST completed eCW1 (Critical access hospital) COVID-19 dose #1 given elsewhere Unspecified 12/11/2020 10:0 8:00 AM EST completed eCW1 (Critical access hospital) COVID-19 dose #1 given elsewhere Unspecified 12/11/2020 10:0 8:00 AM EST completed eCW1 (Critical access hospital) COVID-19 dose #1 given elsewhere Unspecified 12/11/2020 10:0 8:00 AM EST completed eCW1 (Critical access hospital) COVID-19 dose #1 given elsewhere Unspecified 12/11/2020 10:0 8:00 AM EST completed eCW1 (Critical access hospital) COVID-19 dose #1 given elsewhere Unspecified 12/11/2020 10:0 8:00 AM EST completed eCW1 (Critical access hospital) COVID-19 dose #1 given elsewhere Unspecified 12/11/2020 10:0 8:00 AM EST completed eCW1 (Critical access hospital) COVID-19 dose #1 given elsewhere Unspecified 12/11/2020 10:0 8:00 AM EST completed eCW1 (Critical access hospital) COVID-19 dose #1 given elsewhere Unspecified 12/11/2020 10:0 8:00 AM EST completed eCW1 (Critical access hospital) COVID-19 dose #1 given elsewhere Unspecified 12/11/2020 10:0 8:00 AM EST completed eCW1 (Critical access hospital) COVID-19 dose #1 given elsewhere Unspecified 12/11/2020 10:0 8:00 AM EST completed eCW1 (Critical access hospital) COVID-19 dose #1 given elsewhere Unspecified 12/11/2020 10:0 8:00 AM EST completed eCW1 (Critical access hospital) COVID-19 dose #1 given elsewhere Unspecified 12/11/2020 10:0 8:00 AM EST completed eCW1 (Critical access hospital) COVID-19 dose #1 given elsewhere Unspecified 12/11/2020 10:0 8:00 AM EST completed eCW1 (Critical access hospital) COVID-19 dose #1 given elsewhere Unspecified 12/11/2020 10:0 8:00 AM EST completed eCW1 (Critical access hospital) COVID-19 dose #1 given elsewhere Unspecified 12/11/2020 10:0 8:00 AM EST completed eCW1 (Critical access hospital) COVID-19 dose #1 given elsewhere Unspecified 12/11/2020 10:0 8:00 AM EST completed eCW1 (Critical access hospital) COVID-19 dose #1 given elsewhere Unspecified 12/11/2020 10:0 8:00 AM EST completed eCW1 (Critical access hospital) COVID-19 dose #1 given elsewhere Unspecified 12/11/2020 10:0 8:00 AM EST completed eCW1 (Critical access hospital) COVID-19 dose #1 given elsewhere Unspecified 12/11/2020 10:0 8:00 AM EST completed eCW1 (Critical access hospital) COVID-19 dose #1 given elsewhere Unspecified 12/11/2020 10:0 8:00 AM EST completed eCW1 (Critical access hospital) COVID-19 dose #1 given elsewhere Unspecified 12/11/2020 10:0 8:00 AM EST completed eCW1 (Critical access hospital) COVID-19 dose #1 given elsewhere Unspecified 12/11/2020 10:0 8:00 AM EST completed eCW1 (Critical access hospital) COVID-19 dose #1 given elsewhere Unspecified 12/11/2020 10:0 8:00 AM EST completed eCW1 (Critical access hospital) COVID-19 dose #1 given elsewhere Unspecified 12/11/2020 10:0 8:00 AM EST completed eCW1 (Critical access hospital) COVID-19 dose #1 given elsewhere Unspecified 12/11/2020 10:0 8:00 AM EST completed eCW1 (Critical access hospital) COVID-19 dose #1 given elsewhere Unspecified 12/11/2020 10:0 8:00 AM EST completed eCW1 (Critical access hospital) COVID-19 dose #1 given elsewhere Unspecified 12/11/2020 10:0 8:00 AM EST completed eCW1 (Critical access hospital) COVID-19 dose #1 given elsewhere Unspecified 12/11/2020 10:0 8:00 AM EST completed eCW1 (Critical access hospital) COVID-19 dose #1 given elsewhere Unspecified 12/11/2020 10:0 8:00 AM EST completed eCW1 (Critical access hospital) COVID-19 dose #1 given elsewhere Unspecified 12/11/2020 10:0 8:00 AM EST completed eCW1 (Critical access hospital) COVID-19 dose #1 given elsewhere Unspecified 12/11/2020 10:0 8:00 AM EST completed eCW1 (Critical access hospital) COVID-19 dose #1 given elsewhere Unspecified 12/11/2020 10:0 8:00 AM EST completed eCW1 (Critical access hospital) COVID-19 VACCINE Moderna 12/10/2020 12:00:00 AM EST completed [employer] Vaccine Series Complete: NOThis Data was Submitted to [facility] Via [employer]. influenza, recombinant, quadrIvalent,injectable, prese rvative free 11/20/2020 01:35:00 PM EST completed eCW1 ([facility]) influenza, recombinant, quadrIvalent,injectable, prese rvative free 11/20/2020 01:35:00 PM EST completed eCW1 ([facility]) influenza, recombinant, quadrIvalent,injectable, prese rvative free 11/20/2020 01:35:00 PM EST completed eCW1 ([facility]) influenza, recombinant, quadrIvalent,injectable, prese rvative free 11/20/2020 01:35:00 PM EST completed eCW1 ([facility]) influenza, recombinant, quadrIvalent,injectable, prese rvative free 11/20/2020 01:35:00 PM EST completed eCW1 ([facility]) influenza, recombinant, quadrIvalent,injectable, prese rvative free 11/20/2020 01:35:00 PM EST completed eCW1 ([facility]) influenza, recombinant, quadrIvalent,injectable, prese rvative free 11/20/2020 01:35:00 PM EST completed eCW1 ([facility]) influenza, recombinant, quadrIvalent,injectable, prese rvative free 11/20/2020 01:35:00 PM EST completed eCW1 ([facility]) influenza, recombinant, quadrIvalent,injectable, prese rvative free 11/20/2020 01:35:00 PM EST completed eCW1 ([facility]) influenza, recombinant, quadrIvalent,injectable, prese rvative free 11/20/2020 01:35:00 PM EST completed eCW1 ([facility]) influenza, recombinant, quadrIvalent,injectable, prese rvative free 11/20/2020 01:35:00 PM EST completed eCW1 ([facility]) influenza, recombinant, quadrIvalent,injectable, prese rvative free 11/20/2020 01:35:00 PM EST completed eCW1 ([facility]) influenza, recombinant, quadrIvalent,injectable, prese rvative free 11/20/2020 01:35:00 PM EST completed eCW1 ([facility]) influenza, recombinant, quadrIvalent,injectable, prese rvative free 11/20/2020 01:35:00 PM EST completed eCW1 ([facility]) influenza, recombinant, quadrIvalent,injectable, prese rvative free 11/20/2020 01:35:00 PM EST completed eCW1 ([facility]) influenza, recombinant, quadrIvalent,injectable, prese rvative free 11/20/2020 01:35:00 PM EST completed eCW1 ([facility]) influenza, recombinant, quadrIvalent,injectable, prese rvative free 11/20/2020 01:35:00 PM EST completed eCW1 ([facility]) influenza, recombinant, quadrIvalent,injectable, prese rvative free 11/20/2020 01:35:00 PM EST completed eCW1 ([facility]) influenza, recombinant, quadrIvalent,injectable, prese rvative free 11/20/2020 01:35:00 PM EST completed eCW1 ([facility]) influenza, recombinant, quadrIvalent,injectable, prese rvative free 11/20/2020 01:35:00 PM EST completed eCW1 ([facility]) influenza, recombinant, quadrIvalent,injectable, prese rvative free 11/20/2020 01:35:00 PM EST completed eCW1 ([facility]) influenza, recombinant, quadrIvalent,injectable, prese rvative free 11/20/2020 01:35:00 PM EST completed eCW1 ([facility]) influenza, recombinant, quadrIvalent,injectable, prese rvative free 11/20/2020 01:35:00 PM EST completed eCW1 ([facility]) influenza, recombinant, quadrIvalent,injectable, prese rvative free 11/20/2020 01:35:00 PM EST completed eCW1 ([facility]) influenza, recombinant, quadrIvalent,injectable, prese rvative free 11/20/2020 01:35:00 PM EST completed eCW1 ([facility]) influenza, recombinant, quadrIvalent,injectable, prese rvative free 11/20/2020 01:35:00 PM EST completed eCW1 ([facility]) influenza, recombinant, quadrIvalent,injectable, prese rvative free 11/20/2020 01:35:00 PM EST completed eCW1 ([facility]) influenza, recombinant, quadrIvalent,injectable, prese rvative free 11/20/2020 01:35:00 PM EST completed eCW1 ([facility]) influenza, recombinant, quadrIvalent,injectable, prese rvative free 11/20/2020 01:35:00 PM EST completed eCW1 ([facility]) influenza, recombinant, quadrIvalent,injectable, prese rvative free 11/20/2020 01:35:00 PM EST completed eCW1 ([facility]) influenza, recombinant, quadrIvalent,injectable, prese rvative free 11/20/2020 01:35:00 PM EST completed eCW1 ([facility]) influenza, recombinant, quadrIvalent,injectable, prese rvative free 11/20/2020 01:35:00 PM EST completed eCW1 ([facility]) influenza, recombinant, quadrIvalent,injectable, prese rvative free 11/20/2020 01:35:00 PM EST completed eCW1 ([facility]) influenza, recombinant, quadrIvalent,injectable, prese rvative free 11/20/2020 01:35:00 PM EST completed eCW1 ([facility]) influenza, recombinant, quadrIvalent,injectable, prese rvative free 11/20/2020 01:35:00 PM EST completed eCW1 ([facility]) influenza, recombinant, quadrIvalent,injectable, prese rvative free 11/20/2020 01:35:00 PM EST completed eCW1 ([facility]) influenza, recombinant, quadrIvalent,injectable, prese rvative free 11/20/2020 01:35:00 PM EST completed eCW1 ([facility]) influenza, recombinant, quadrIvalent,injectable, prese rvative free 11/20/2020 01:35:00 PM EST completed eCW1 ([facility]) influenza, recombinant, quadrIvalent,injectable, prese rvative free 11/20/2020 01:35:00 PM EST completed eCW1 ([facility]) influenza, recombinant, quadrIvalent,injectable, prese rvative free 11/20/2020 01:35:00 PM EST completed eCW1 ([facility]) influenza, recombinant, quadrIvalent,injectable, prese rvative free 11/20/2020 01:35:00 PM EST completed eCW1 ([facility]) influenza, recombinant, quadrIvalent,injectable, prese rvative free 11/20/2020 01:35:00 PM EST completed eCW1 ([facility]) influenza, recombinant, quadrIvalent,injectable, prese rvative free 11/20/2020 01:35:00 PM EST completed eCW1 ([facility]) influenza, recombinant, quadrIvalent,injectable, prese rvative free 11/20/2020 01:35:00 PM EST completed eCW1 ([facility]) influenza, recombinant, quadrIvalent,injectable, prese rvative free 11/20/2020 01:35:00 PM EST completed eCW1 ([facility]) influenza, recombinant, quadrIvalent,injectable, prese rvative free 11/20/2020 01:35:00 PM EST completed eCW1 ([facility]) influenza, recombinant, quadrIvalent,injectable, prese rvative free 11/20/2020 01:35:00 PM EST completed eCW1 ([facility]) influenza, recombinant, quadrIvalent,injectable, prese rvative free 11/20/2020 01:35:00 PM EST completed eCW1 ([facility]) influenza, recombinant, quadrIvalent,injectable, prese rvative free 11/20/2020 01:35:00 PM EST completed eCW1 ([facility]) influenza, recombinant, quadrIvalent,injectable, prese rvative free 11/20/2020 01:35:00 PM EST completed eCW1 ([facility]) influenza, recombinant, quadrIvalent,injectable, prese rvative free 11/20/2020 01:35:00 PM EST completed eCW1 ([facility]) influenza, recombinant, quadrIvalent,injectable, prese rvative free 11/20/2020 01:35:00 PM EST completed eCW1 ([facility]) influenza, recombinant, quadrIvalent,injectable, prese rvative free 11/20/2020 01:35:00 PM EST completed eCW1 ([facility]) influenza, recombinant, quadrIvalent,injectable, prese rvative free 11/20/2020 01:35:00 PM EST completed eCW1 ([facility]) influenza, recombinant, quadrIvalent,injectable, prese rvative free 11/20/2020 01:35:00 PM EST completed eCW1 ([facility]) influenza, recombinant, quadrIvalent,injectable, prese rvative free 11/20/2020 01:35:00 PM EST completed eCW1 ([facility]) influenza, recombinant, quadrIvalent,injectable, prese rvative free 11/20/2020 01:35:00 PM EST completed eCW1 ([facility]) influenza, recombinant, quadrIvalent,injectable, prese rvative free 11/20/2020 01:35:00 PM EST completed eCW1 ([facility]) influenza, recombinant, quadrIvalent,injectable, prese rvative free 11/20/2020 01:35:00 PM EST completed eCW1 ([facility]) influenza, recombinant, quadrIvalent,injectable, prese rvative free 11/20/2020 01:35:00 PM EST completed eCW1 ([facility]) influenza, recombinant, quadrIvalent,injectable, prese rvative free 11/20/2020 01:35:00 PM EST completed eCW1 ([facility]) influenza, recombinant, quadrIvalent,injectable, prese rvative free 11/20/2020 01:35:00 PM EST completed eCW1 ([facility]) influenza, recombinant, quadrIvalent,injectable, prese rvative free 11/20/2020 01:35:00 PM EST completed eCW1 ([facility]) influenza, recombinant, quadrIvalent,injectable, prese rvative free 11/20/2020 01:35:00 PM EST completed eCW1 ([facility]) influenza, recombinant, quadrIvalent,injectable, prese rvative free 11/20/2020 01:35:00 PM EST completed eCW1 ([facility]) influenza, recombinant, quadrIvalent,injectable, prese rvative free 11/20/2020 01:35:00 PM EST completed eCW1 ([facility]) influenza, recombinant, quadrIvalent,injectable, prese rvative free 11/20/2020 01:35:00 PM EST completed eCW1 ([facility]) influenza, recombinant, quadrIvalent,injectable, prese rvative free 11/20/2020 01:35:00 PM EST completed eCW1 ([facility]) influenza, recombinant, quadrIvalent,injectable, prese rvative free 11/20/2020 01:35:00 PM EST completed eCW1 ([facility]) influenza, recombinant, quadrIvalent,injectable, prese rvative free 11/20/2020 01:35:00 PM EST completed eCW1 ([facility]) influenza, recombinant, quadrIvalent,injectable, prese rvative free 11/20/2020 01:35:00 PM EST completed eCW1 ([facility]) influenza, recombinant, quadrIvalent,injectable, prese rvative free 11/20/2020 01:35:00 PM EST completed eCW1 ([facility]) influenza, recombinant, quadrIvalent,injectable, prese rvative free 11/20/2020 01:35:00 PM EST completed eCW1 ([facility]) influenza, recombinant, quadrIvalent,injectable, prese rvative free 11/20/2020 01:35:00 PM EST completed eCW1 ([facility]) influenza, recombinant, quadrIvalent,injectable, prese rvative free 11/20/2020 01:35:00 PM EST completed eCW1 ([facility]) influenza, recombinant, quadrIvalent,injectable, prese rvative free 11/20/2020 01:35:00 PM EST completed eCW1 ([facility]) Medications Medication Brand Name Start Date Product Form Dose Route Admi nistrative Instructions Pharmacy Instructions Status Indications Reaction Description Data Source(s) May Use - UNK 09/03/2021 12:00:00 AM EST active May Use - eCW1 ([facility]) May Use - UNK 09/03/2021 12:00:00 AM EST active May Use - eCW1 ([facility]) May Use - UNK 09/03/2021 12:00:00 AM EST active May Use - eCW1 ([facility]) May Use - UNK 09/03/2021 12:00:00 AM EST active May Use - eCW1 ([facility]) May Use - UNK 09/03/2021 12:00:00 AM EST active May Use - eCW1 ([facility]) May Use - UNK 09/03/2021 12:00:00 AM EST active May Use - eCW1 ([facility]) May Use - UNK 09/03/2021 12:00:00 AM EST active May Use - eCW1 ([facility]) May Use - UNK 09/03/2021 12:00:00 AM EST active May Use - eCW1 ([facility]) Prednisone 10 MG Oral Tablet Prednisone 08/05/2021 12:00:00 AM EDT active [facility] ([facility] Hydroxyzine Hydrochloride 25 MG Oral Tablet hydrOXYzin e HCl 25 MG hydrOXYzine HCl 25 MG 07/22/2021 12:00:00 AM EDT 1.0 {tablet} ac tive hydrOXYzine HCl 25 MG eCW1 ([facility]) Hydroxyzine Hydrochloride 25 MG Oral Tablet hydrOXYzin e HCl 25 MG hydrOXYzine HCl 25 MG 07/22/2021 12:00:00 AM EDT 1.0 {tablet} active eCW1 ([facility]) Hydroxyzine Hydrochloride 25 MG Oral Tablet hydrOXYzin e HCl 25 MG hydrOXYzine HCl 25 MG 07/22/2021 12:00:00 AM EDT 1.0 {tablet} ac tive hydrOXYzine HCl 25 MG eCW1 ([facility]) Hydroxyzine Hydrochloride 25 MG Oral Tablet hydrOXYzin e HCl 25 MG hydrOXYzine HCl 25 MG 07/22/2021 12:00:00 AM EDT 1.0 {tablet} ac tive hydrOXYzine HCl 25 MG eCW1 ([facility]) Hydroxyzine Hydrochloride 25 MG Oral Tablet hydrOXYzin e HCl 25 MG hydrOXYzine HCl 25 MG 07/22/2021 12:00:00 AM EDT 1.0 {tablet} ac tive hydrOXYzine HCl 25 MG eCW1 ([facility]) Hydroxyzine Hydrochloride 25 MG Oral Tablet hydrOXYzin e HCl 25 MG hydrOXYzine HCl 25 MG 07/22/2021 12:00:00 AM EDT 1.0 {tablet} ac tive hydrOXYzine HCl 25 MG eCW1 ([facility]) Hydroxyzine Hydrochloride 25 MG Oral Tablet hydrOXYzin e HCl 25 MG hydrOXYzine HCl 25 MG 07/22/2021 12:00:00 AM EDT 1.0 {tablet} active eCW1 ([facility]) Hydroxyzine Hydrochloride 25 MG Oral Tablet hydrOXYzin e HCl 25 MG hydrOXYzine HCl 25 MG 07/22/2021 12:00:00 AM EDT 1.0 {tablet} ac tive hydrOXYzine HCl 25 MG eCW1 ([facility]) Hydroxyzine Hydrochloride 25 MG Oral Tablet hydrOXYzin e HCl 25 MG hydrOXYzine HCl 25 MG 07/22/2021 12:00:00 AM EDT 1.0 {tablet} ac tive hydrOXYzine HCl 25 MG eCW1 ([facility]) Hydroxyzine Hydrochloride 25 MG Oral Tablet hydrOXYzin e HCl 25 MG hydrOXYzine HCl 25 MG 07/22/2021 12:00:00 AM EDT 1.0 {tablet} ac tive hydrOXYzine HCl 25 MG eCW1 ([facility]) Hydroxyzine Hydrochloride 25 MG Oral Tablet hydrOXYzin e HCl 25 MG hydrOXYzine HCl 25 MG 07/22/2021 12:00:00 AM EDT 1.0 {tablet} ac tive hydrOXYzine HCl 25 MG eCW1 ([facility]) Hydroxyzine Hydrochloride 25 MG Oral Tablet hydrOXYzin e HCl 25 MG hydrOXYzine HCl 25 MG 07/22/2021 12:00:00 AM EDT 1.0 {tablet} ac tive hydrOXYzine HCl 25 MG eCW1 ([facility]) Betamethasone 0.5 MG/ML Topical Cream Betamethasone Di propionate 0.05 % Betamethasone Dipropionate 0.05 % 06/28/2021 12:00:00 AM EDT 1.0 {application} active Betamethasone Dipropiona te 0.05 % eCW1 ([facility]) Betamethasone 0.5 MG/ML Topical Cream Betamethasone Di propionate 0.05 % Betamethasone Dipropionate 0.05 % 06/28/2021 12:00:00 AM EDT 1.0 {application} active Betamethasone Dipropiona te 0.05 % eCW1 ([facility]) Betamethasone 0.5 MG/ML Topical Cream Betamethasone Di propionate 0.05 % Betamethasone Dipropionate 0.05 % 06/28/2021 12:00:00 AM EDT 1.0 {application} active Betamethasone Dipropiona te 0.05 % eCW1 ([facility]) Betamethasone 0.5 MG/ML Topical Cream Betamethasone Di propionate 0.05 % Betamethasone Dipropionate 0.05 % 06/28/2021 12:00:00 AM EDT 1.0 {application} active Betamethasone Dipropiona te 0.05 % eCW1 ([facility]) Betamethasone 0.5 MG/ML Topical Cream Betamethasone Di propionate 0.05 % Betamethasone Dipropionate 0.05 % 06/28/2021 12:00:00 AM EDT 1.0 {application} active Betamethasone Dipropiona te 0.05 % eCW1 ([facility]) meloxicam 15 MG Oral Tablet Meloxicam 06/21/2021 12:00:00 AM EDT ORAL active MEDENT ([facility]) Inject Triamcinolone Acetonide 10 ML, [facility] [id number] 06/04/2021 12:00:00 AM EDT completed [facility] ([facility] Medication administered onsite Inject Dexamthosone Phosphate 96298-368-53 06/04/2021 12:00:00 A M EDT [facility] Medication administered onsite Triamcinolone Acetonide 1 MG/ML Topical Cream Triamcin olone Acetonide 0.1 % Triamcinolone Acetonide 0.1 % 05/16/2021 12:00:00 AM EDT 1.0 {appli cation} active Triamcinolone Acetonide 0 .1 % eCW1 ([facility]) Triamcinolone Acetonide 1 MG/ML Topical Cream Triamcin olone Acetonide 0.1 % Triamcinolone Acetonide 0.1 % 05/16/2021 12:00:00 AM EDT 1.0 {appli cation} active eCW1 ([facility]) Triamcinolone Acetonide 1 MG/ML Topical Cream Triamcin olone Acetonide 0.1 % Triamcinolone Acetonide 0.1 % 05/16/2021 12:00:00 AM EDT 1.0 {appli cation} active Triamcinolone Acetonide 0 .1 % eCW1 ([facility]) Triamcinolone Acetonide 1 MG/ML Topical Cream Triamcin olone Acetonide 0.1 % Triamcinolone Acetonide 0.1 % 05/16/2021 12:00:00 AM EDT 1.0 {appli cation} active Triamcinolone Acetonide 0 .1 % eCW1 ([facility]) Triamcinolone Acetonide 1 MG/ML Topical Cream Triamcin olone Acetonide 0.1 % Triamcinolone Acetonide 0.1 % 05/16/2021 12:00:00 AM EDT 1.0 {appli cation} active Triamcinolone Acetonide 0 .1 % eCW1 ([facility]) Triamcinolone Acetonide 1 MG/ML Topical Cream Triamcin olone Acetonide 0.1 % Triamcinolone Acetonide 0.1 % 05/16/2021 12:00:00 AM EDT 1.0 {appli cation} active Triamcinolone Acetonide 0 .1 % eCW1 ([facility]) Triamcinolone Acetonide 1 MG/ML Topical Cream Triamcin olone Acetonide 0.1 % Triamcinolone Acetonide 0.1 % 05/16/2021 12:00:00 AM EDT 1.0 {appli cation} active Triamcinolone Acetonide 0 .1 % eCW1 ([facility]) Triamcinolone Acetonide 1 MG/ML Topical Cream Triamcin olone Acetonide 0.1 % Triamcinolone Acetonide 0.1 % 05/16/2021 12:00:00 AM EDT 1.0 {appli cation} active Triamcinolone Acetonide 0 .1 % eCW1 ([facility]) Triamcinolone Acetonide 1 MG/ML Topical Cream Triamcin olone Acetonide 0.1 % Triamcinolone Acetonide 0.1 % 05/16/2021 12:00:00 AM EDT 1.0 {appli cation} active Triamcinolone Acetonide 0 .1 % eCW1 ([facility]) Triamcinolone Acetonide 1 MG/ML Topical Cream Triamcin olone Acetonide 0.1 % Triamcinolone Acetonide 0.1 % 05/16/2021 12:00:00 AM EDT 1.0 {appli cation} active Triamcinolone Acetonide 0 .1 % eCW1 ([facility]) Triamcinolone Acetonide 1 MG/ML Topical Cream Triamcin olone Acetonide 0.1 % Triamcinolone Acetonide 0.1 % 05/16/2021 12:00:00 AM EDT 1.0 {appli cation} active Triamcinolone Acetonide 0 .1 % eCW1 ([facility]) Triamcinolone Acetonide 1 MG/ML Topical Cream Triamcin olone Acetonide 0.1 % Triamcinolone Acetonide 0.1 % 05/16/2021 12:00:00 AM EDT 1.0 {appli cation} active Triamcinolone Acetonide 0 .1 % eCW1 ([facility]) Triamcinolone Acetonide 1 MG/ML Topical Cream Triamcin olone Acetonide 0.1 % Triamcinolone Acetonide 0.1 % 05/16/2021 12:00:00 AM EDT 1.0 {appli cation} active Triamcinolone Acetonide 0 .1 % eCW1 ([facility]) Triamcinolone Acetonide 1 MG/ML Topical Cream Triamcin olone Acetonide 0.1 % Triamcinolone Acetonide 0.1 % 05/16/2021 12:00:00 AM EDT 1.0 {appli cation} active Triamcinolone Acetonide 0 .1 % eCW1 ([facility]) Triamcinolone Acetonide 1 MG/ML Topical Cream Triamcin olone Acetonide 0.1 % Triamcinolone Acetonide 0.1 % 05/16/2021 12:00:00 AM EDT 1.0 {appli cation} active Triamcinolone Acetonide 0 .1 % eCW1 ([facility]) Triamcinolone Acetonide 1 MG/ML Topical Cream Triamcin olone Acetonide 0.1 % Triamcinolone Acetonide 0.1 % 05/16/2021 12:00:00 AM EDT 1.0 {appli cation} active Triamcinolone Acetonide 0 .1 % eCW1 ([facility]) Triamcinolone Acetonide 1 MG/ML Topical Cream Triamcin olone Acetonide 0.1 % Triamcinolone Acetonide 0.1 % 05/16/2021 12:00:00 AM EDT 1.0 {appli cation} active Triamcinolone Acetonide 0 .1 % eCW1 ([facility]) Triamcinolone Acetonide 1 MG/ML Topical Cream Triamcin olone Acetonide 0.1 % Triamcinolone Acetonide 0.1 % 05/16/2021 12:00:00 AM EDT 1.0 {appli cation} active Triamcinolone Acetonide 0 .1 % eCW1 ([facility]) Triamcinolone Acetonide 1 MG/ML Topical Cream Triamcin olone Acetonide 0.1 % Triamcinolone Acetonide 0.1 % 05/16/2021 12:00:00 AM EDT 1.0 {appli cation} active Triamcinolone Acetonide 0 .1 % eCW1 ([facility]) Triamcinolone Acetonide 1 MG/ML Topical Cream Triamcin olone Acetonide 0.1 % Triamcinolone Acetonide 0.1 % 05/16/2021 12:00:00 AM EDT 1.0 {appli cation} active Triamcinolone Acetonide 0 .1 % eCW1 ([facility]) Triamcinolone Acetonide 1 MG/ML Topical Cream Triamcin olone Acetonide 0.1 % Triamcinolone Acetonide 0.1 % 05/16/2021 12:00:00 AM EDT 1.0 {appli cation} active eCW1 ([facility]) Triamcinolone Acetonide 1 MG/ML Topical Cream Triamcin olone Acetonide 0.1 % Triamcinolone Acetonide 0.1 % 05/16/2021 12:00:00 AM EDT 1.0 {appli cation} active Triamcinolone Acetonide 0 .1 % eCW1 ([facility]) Triamcinolone Acetonide 1 MG/ML Topical Cream Triamcin olone Acetonide 0.1 % Triamcinolone Acetonide 0.1 % 05/16/2021 12:00:00 AM EDT 1.0 {appli cation} active Triamcinolone Acetonide 0 .1 % eCW1 ([facility]) Triamcinolone Acetonide 1 MG/ML Topical Cream Triamcin olone Acetonide 0.1 % Triamcinolone Acetonide 0.1 % 05/16/2021 12:00:00 AM EDT 1.0 {appli cation} active Triamcinolone Acetonide 0 .1 % eCW1 ([facility]) Triamcinolone Acetonide 1 MG/ML Topical Cream Triamcin olone Acetonide 0.1 % Triamcinolone Acetonide 0.1 % 05/16/2021 12:00:00 AM EDT 1.0 {appli cation} active Triamcinolone Acetonide 0 .1 % eCW1 ([facility]) Triamcinolone Acetonide 1 MG/ML Topical Cream Triamcin olone Acetonide 0.1 % Triamcinolone Acetonide 0.1 % 05/16/2021 12:00:00 AM EDT 1.0 {appli cation} active Triamcinolone Acetonide 0 .1 % eCW1 ([facility]) Triamcinolone Acetonide 1 MG/ML Topical Cream Triamcin olone Acetonide 0.1 % Triamcinolone Acetonide 0.1 % 05/16/2021 12:00:00 AM EDT 1.0 {appli cation} active Triamcinolone Acetonide 0 .1 % eCW1 ([facility]) Triamcinolone Acetonide 1 MG/ML Topical Cream Triamcin olone Acetonide 0.1 % Triamcinolone Acetonide 0.1 % 05/16/2021 12:00:00 AM EDT 1.0 {appli cation} active Triamcinolone Acetonide 0 .1 % eCW1 ([facility]) Triamcinolone Acetonide 1 MG/ML Topical Cream Triamcin olone Acetonide 0.1 % Triamcinolone Acetonide 0.1 % 05/16/2021 12:00:00 AM EDT 1.0 {appli cation} active Triamcinolone Acetonide 0 .1 % eCW1 ([facility]) Triamcinolone Acetonide 1 MG/ML Topical Cream Triamcin olone Acetonide 0.1 % Triamcinolone Acetonide 0.1 % 05/16/2021 12:00:00 AM EDT 1.0 {appli cation} active Triamcinolone Acetonide 0 .1 % eCW1 ([facility]) Ondansetron 8 MG Oral Tablet Ondansetron HCl 8 MG Ondansetro n HCl 8 MG 05/15/2021 12:00:00 AM EDT 1.0 {tablet_as_needed} active Ondansetron HCl 8 MG eCW1 ([facility]) Ondansetron 8 MG Oral Tablet Ondansetron HCl 8 MG Ondansetro n HCl 8 MG 05/15/2021 12:00:00 AM EDT 1.0 {tablet_as_needed} active Ondansetron HCl 8 MG eCW1 ([facility]) Ondansetron 8 MG Oral Tablet Ondansetron HCl 8 MG Ondansetro n HCl 8 MG 05/15/2021 12:00:00 AM EDT 1.0 {tablet_as_needed} active Ondansetron HCl 8 MG eCW1 ([facility]) Ondansetron 8 MG Oral Tablet Ondansetron HCl 8 MG Ondansetro n HCl 8 MG 05/15/2021 12:00:00 AM EDT 1.0 {tablet_as_needed} active Ondansetron HCl 8 MG eCW1 ([facility]) Ondansetron 8 MG Oral Tablet Ondansetron HCl 8 MG Ondansetro n HCl 8 MG 05/15/2021 12:00:00 AM EDT 1.0 {tablet_as_needed} active Ondansetron HCl 8 MG eCW1 ([facility]) Ondansetron 8 MG Oral Tablet Ondansetron HCl 8 MG Ondansetro n HCl 8 MG 05/15/2021 12:00:00 AM EDT 1.0 {tablet_as_needed} active Ondansetron HCl 8 MG eCW1 ([facility]) Ondansetron 8 MG Oral Tablet Ondansetron HCl 8 MG Ondansetro n HCl 8 MG 05/15/2021 12:00:00 AM EDT 1.0 {tablet_as_needed} active Ondansetron HCl 8 MG eCW1 ([facility]) Ondansetron 8 MG Oral Tablet Ondansetron HCl 8 MG Ondansetro n HCl 8 MG 05/15/2021 12:00:00 AM EDT 1.0 {tablet_as_needed} active Ondansetron HCl 8 MG eCW1 ([facility]) Ondansetron 8 MG Oral Tablet Ondansetron HCl 8 MG Ondansetro n HCl 8 MG 05/15/2021 12:00:00 AM EDT 1.0 {tablet_as_needed} active Ondansetron HCl 8 MG eCW1 ([facility]) Ondansetron 8 MG Oral Tablet Ondansetron HCl 8 MG Ondansetro n HCl 8 MG 05/15/2021 12:00:00 AM EDT 1.0 {tablet_as_needed} active Ondansetron HCl 8 MG eCW1 ([facility]) Ondansetron 8 MG Oral Tablet Ondansetron HCl 8 MG Ondansetro n HCl 8 MG 05/15/2021 12:00:00 AM EDT 1.0 {tablet_as_needed} active Ondansetron HCl 8 MG eCW1 ([facility]) Ondansetron 8 MG Oral Tablet Ondansetron HCl 8 MG Ondansetro n HCl 8 MG 05/15/2021 12:00:00 AM EDT 1.0 {tablet_as_needed} active Ondansetron HCl 8 MG eCW1 ([facility]) Ondansetron 8 MG Oral Tablet Ondansetron HCl 8 MG Ondansetro n HCl 8 MG 05/15/2021 12:00:00 AM EDT 1.0 {tablet_as_needed} active Ondansetron HCl 8 MG eCW1 ([facility]) Ondansetron 8 MG Oral Tablet Ondansetron HCl 8 MG Ondansetro n HCl 8 MG 05/15/2021 12:00:00 AM EDT 1.0 {tablet_as_needed} active Ondansetron HCl 8 MG eCW1 ([facility]) Ondansetron 8 MG Oral Tablet Ondansetron HCl 8 MG Ondansetro n HCl 8 MG 05/15/2021 12:00:00 AM EDT 1.0 {tablet_as_needed} active Ondansetron HCl 8 MG eCW1 ([facility]) Ondansetron 8 MG Oral Tablet Ondansetron HCl 8 MG Ondansetro n HCl 8 MG 05/15/2021 12:00:00 AM EDT 1.0 {tablet_as_needed} active Ondansetron HCl 8 MG eCW1 ([facility]) Ondansetron 8 MG Oral Tablet Ondansetron HCl 8 MG Ondansetro n HCl 8 MG 05/15/2021 12:00:00 AM EDT 1.0 {tablet_as_needed} active Ondansetron HCl 8 MG eCW1 ([facility]) Ondansetron 8 MG Oral Tablet Ondansetron HCl 8 MG Ondansetro n HCl 8 MG 05/15/2021 12:00:00 AM EDT 1.0 {tablet_as_needed} active Ondansetron HCl 8 MG eCW1 ([facility]) Ondansetron 8 MG Oral Tablet Ondansetron HCl 8 MG Ondansetro n HCl 8 MG 05/15/2021 12:00:00 AM EDT 1.0 {tablet_as_needed} active Ondansetron HCl 8 MG eCW1 ([facility]) Ondansetron 8 MG Oral Tablet Ondansetron HCl 8 MG Ondansetro n HCl 8 MG 05/15/2021 12:00:00 AM EDT 1.0 {tablet_as_needed} active Ondansetron HCl 8 MG eCW1 ([facility]) Ondansetron 8 MG Oral Tablet Ondansetron HCl 8 MG Ondansetro n HCl 8 MG 05/15/2021 12:00:00 AM EDT 1.0 {tablet_as_needed} active Ondansetron HCl 8 MG eCW1 ([facility]) Ondansetron 8 MG Oral Tablet Ondansetron HCl 8 MG Ondansetro n HCl 8 MG 05/15/2021 12:00:00 AM EDT 1.0 {tablet_as_needed} active Ondansetron HCl 8 MG eCW1 ([facility]) Ondansetron 8 MG Oral Tablet Ondansetron HCl 8 MG Ondansetro n HCl 8 MG 05/15/2021 12:00:00 AM EDT 1.0 {tablet_as_needed} active Ondansetron HCl 8 MG eCW1 ([facility]) Ondansetron 8 MG Oral Tablet Ondansetron HCl 8 MG Ondansetro n HCl 8 MG 05/15/2021 12:00:00 AM EDT 1.0 {tablet_as_needed} active Ondansetron HCl 8 MG eCW1 ([facility]) Ondansetron 8 MG Oral Tablet Ondansetron HCl 8 MG Ondansetro n HCl 8 MG 05/15/2021 12:00:00 AM EDT 1.0 {tablet_as_needed} active Ondansetron HCl 8 MG eCW1 ([facility]) Ondansetron 8 MG Oral Tablet Ondansetron HCl 8 MG Ondansetro n HCl 8 MG 05/15/2021 12:00:00 AM EDT 1.0 {tablet_as_needed} active Ondansetron HCl 8 MG eCW1 ([facility]) Ondansetron 8 MG Oral Tablet Ondansetron HCl 8 MG Ondansetro n HCl 8 MG 05/15/2021 12:00:00 AM EDT 1.0 {tablet_as_needed} active Ondansetron HCl 8 MG eCW1 ([facility]) Ondansetron 8 MG Oral Tablet Ondansetron HCl 8 MG Ondansetro n HCl 8 MG 05/15/2021 12:00:00 AM EDT 1.0 {tablet_as_needed} active Ondansetron HCl 8 MG eCW1 ([facility]) Ondansetron 8 MG Oral Tablet Ondansetron HCl 8 MG Ondansetro n HCl 8 MG 05/15/2021 12:00:00 AM EDT 1.0 {tablet_as_needed} active Ondansetron HCl 8 MG eCW1 ([facility]) Ondansetron 8 MG Oral Tablet Ondansetron HCl 8 MG Ondansetro n HCl 8 MG 05/15/2021 12:00:00 AM EDT 1.0 {tablet_as_needed} ac tive eCW1 ([facility]) Ondansetron 8 MG Oral Tablet Ondansetron HCl 8 MG Ondansetro n HCl 8 MG 05/15/2021 12:00:00 AM EDT 1.0 {tablet_as_needed} ac tive eCW1 ([facility]) tramadol hydrochloride 50 MG Oral Tablet traMADol (ULT ELOY) 50 MG tablet traMADol (ULTRAM) 50 MG tablet 04/17/2021 12:00:00 AM EDT 50 mg Oral active Take 50 mg by mouth 2 (two) times a day [facility] topiramate 50 MG Oral Tablet topiramate (TOPAMAX) 50 M G tablet topiramate (TOPAMAX) 50 MG tablet 03/26/2021 12:00:00 AM EDT 50 mg Oral active Take 50 mg by mouth nightly [facility] Medrol Medrol 03/20/2021 12:00:00 AM EDT active MEDENT ([facility]) Hydrocortisone 10 MG/ML / Neomycin 3.5 M G/ML / Polymyxin B 50483 UNT/ML Otic Suspension Jklzmzkv-Uxjaawpdi-LH 3.5-34336-5 Anfaymql-Wahqtycey-UD 3.5-86407-5 03/18/2021 12:00:00 AM EDT 4.0 {drops_into_affected_ear} active Youhxqzl-Uyskhmbxp-MJ 3.5-05877-0 eCW1 ([facility]) Hydrocortisone 10 MG/ML / Neomycin 3.5 M G/ML / Polymyxin B 65438 UNT/ML Otic Suspension Zddsfdad-Ngdjtoyqi-DV 3.5-69040-5 Tyfqowdq-Xsngoqpmg-ED 3.5-19162-2 03/18/2021 12:00:00 AM EDT 4.0 {drops_into_affected_ear} active Ixskvvhb-Yebcnfnah-IQ 3.5-11149-4 eCW1 ([facility]) Hydrocortisone 10 MG/ML / Neomycin 3.5 M G/ML / Polymyxin B 74202 UNT/ML Otic Suspension Kfrtewld-Sqeknvklf-RO 3.5-46760-2 Vqjhyblr-Hzzvcfwvq-ND 3.5-45251-7 03/18/2021 12:00:00 AM EDT 4.0 {drops_into_affected_ear} active Pejbviyn-Qsddstgfg-BE 3.5-65817-8 eCW1 ([facility]) Hydrocortisone 10 MG/ML / Neomycin 3.5 M G/ML / Polymyxin B 55347 UNT/ML Otic Suspension Tqjzndnx-Vqpxdthbt-DE 3.5-58127-7 Iouvuxtk-Gxdsvqdit-TZ 3.5-59066-8 03/18/2021 12:00:00 AM EDT 4.0 {drops_into_affected_ear} active Pgbxqqpq-Zpfxqoqzo-RC 3.5-65104-1 eCW1 ([facility]) Hydrocortisone 10 MG/ML / Neomycin 3.5 M G/ML / Polymyxin B 42483 UNT/ML Otic Suspension Rqurowtb-Gqxekhzrq-DV 3.5-35337-3 Cnosbfem-Omkrkzrqq-SL 3.5-87920-2 03/18/2021 12:00:00 AM EDT 4.0 {drops_into_affected_ear} active Xqccbuqr-Yqbxsrzyz-OF 3.5-48415-8 eCW1 ([facility]) Hydrocortisone 10 MG/ML / Neomycin 3.5 M G/ML / Polymyxin B 15657 UNT/ML Otic Suspension Zavtqpmx-Dnbbsrjge-DM 3.5-23372-9 Ranngbim-Bbzkgseur-YT 3.5-88334-7 03/18/2021 12:00:00 AM EDT 4.0 {drops_into_affected_ear} active eCW1 ([facility]) Hydrocortisone 10 MG/ML / Neomycin 3.5 M G/ML / Polymyxin B 58946 UNT/ML Otic Suspension Racyqfdf-Obxpxwnez-SE 3.5-96703-7 Tluiifbp-Lshlleyby-KP 3.5-49486-0 03/18/2021 12:00:00 AM EDT 4.0 {drops_into_affected_ear} active Cavktaje-Euddzzmqx-WI 3.556870-1 eCW1 ([facility]) Hydrocortisone 10 MG/ML / Neomycin 3.5 M G/ML / Polymyxin B 59496 UNT/ML Otic Suspension Uksjracc-Nuhxaeuuf-EP 3.5-24596-9 Ugekdspl-Pgjzyosik-BV 3.5-84503-7 03/18/2021 12:00:00 AM EDT 4.0 {drops_into_affected_ear} active Zhibvkwp-Bigcidaka-GF 3.5-25746-4 eCW1 ([facility]) Hydrocortisone 10 MG/ML / Neomycin 3.5 M G/ML / Polymyxin B 23072 UNT/ML Otic Suspension Lkswpgrf-Wwinllznp-KD 3.5-10447-7 Xbuyrkpj-Jpbabtyik-VD 3.5-40843-4 03/18/2021 12:00:00 AM EDT 4.0 {drops_into_affected_ear} active Cnekkbuc-Kobekbroh-BN 3.5-03533-8 eCW1 ([facility]) Hydrocortisone 10 MG/ML / Neomycin 3.5 M G/ML / Polymyxin B 23910 UNT/ML Otic Suspension Roqxqcba-Azfojfyfh-TZ 3.5-46238-2 Ltlfprgm-Pbmxumnfj-DK 3.5-35208-2 03/18/2021 12:00:00 AM EDT 4.0 {drops_into_affected_ear} active Zpfvywdz-Ofpdwfggw-QB 3.595903-0 eCW1 ([facility]) Hydrocortisone 10 MG/ML / Neomycin 3.5 M G/ML / Polymyxin B 72241 UNT/ML Otic Suspension Uiyjwpwt-Xhbvoyrnq-WW 3.542875-8 Liabmguu-Pxkqtxcbq-IS 3.5-94532-0 03/18/2021 12:00:00 AM EDT 4.0 {drops_into_affected_ear} active Whtbuifv-Uohxdqgqd-JW 3.575586-6 eCW1 ([facility]) Hydrocortisone 10 MG/ML / Neomycin 3.5 M G/ML / Polymyxin B 84671 UNT/ML Otic Suspension Ebivuasx-Nmbxxsdqm-AB 3.548606-9 Ijmrxfgq-Hdnwgpnyp-UU 3.514106-9 03/18/2021 12:00:00 AM EDT 4.0 {drops_into_affected_ear} active Glursoxg-Wjospalna-SX 3.580357-5 eCW1 ([facility]) Hydrocortisone 10 MG/ML / Neomycin 3.5 M G/ML / Polymyxin B 41818 UNT/ML Otic Suspension Fksokycm-Eiezhzkge-NB 3.566503-3 Wcaxzinq-Ezlwqpnim-JT 3.594357-9 03/18/2021 12:00:00 AM EDT 4.0 {drops_into_affected_ear} active Exubxjhm-Yhejohmlb-ZE 3.515842-0 eCW1 ([facility]) Hydrocortisone 10 MG/ML / Neomycin 3.5 M G/ML / Polymyxin B 31779 UNT/ML Otic Suspension Ahybgrqk-Nmsdrxutp-MA 3.5-23513-3 Hrrrqdzo-Uwidcjqhi-SF 3.5-56983-9 03/18/2021 12:00:00 AM EDT 4.0 {drops_into_affected_ear} active Fcykbhhy-Gsyoqsfxb-SV 3.541247-1 eCW1 ([facility]) Hydrocortisone 10 MG/ML / Neomycin 3.5 M G/ML / Polymyxin B 00496 UNT/ML Otic Suspension Rkbrzogg-Zzsdjxcxe-SY 3.5-50910-1 Vzgqveoh-Fgoscynvt-BS 3.5-07625-7 03/18/2021 12:00:00 AM EDT 4.0 {drops_into_affected_ear} active Kolhcoxl-Svtkioltp-UG 3.5-62378-5 eCW1 ([facility]) Hydrocortisone 10 MG/ML / Neomycin 3.5 M G/ML / Polymyxin B 62367 UNT/ML Otic Suspension Spdowycx-Cddttaztt-ZS 3.5-73924-5 Spalsume-Smveajdbq-TH 3.5-44504-6 03/18/2021 12:00:00 AM EDT 4.0 {drops_into_affected_ear} active Xhrshppw-Xdegrszho-YS 3.593399-9 eCW1 ([facility]) Hydrocortisone 10 MG/ML / Neomycin 3.5 M G/ML / Polymyxin B 81116 UNT/ML Otic Suspension Dklulszp-Ahhkjqbnn-KS 3.524732-4 Gscwdmcl-Btyufwtkc-JT 3.5-17373-1 03/18/2021 12:00:00 AM EDT 4.0 {drops_into_affected_ear} active Ayrfbujj-Fcghkbhve-UJ 3.581563-4 eCW1 ([facility]) Hydrocortisone 10 MG/ML / Neomycin 3.5 M G/ML / Polymyxin B 45031 UNT/ML Otic Suspension Srmjvfvz-Ioabpoxgf-OG 3.5-86355-4 Gfjpphgk-Opmmsomwn-NH 3.5-91893-5 03/18/2021 12:00:00 AM EDT 4.0 {drops_into_affected_ear} active Jdbrjhgf-Qfpdymlgg-CW 3.5-12314-9 eCW1 ([facility]) Hydrocortisone 10 MG/ML / Neomycin 3.5 M G/ML / Polymyxin B 93810 UNT/ML Otic Suspension Ksfdbrgg-Rdjcxjskz-RN 3.5-35616-0 Cbyzyrdj-Iavhxnowx-HI 3.5-23431-2 03/18/2021 12:00:00 AM EDT 4.0 {drops_into_affected_ear} active Eleymlzq-Tuwxbhhew-PH 3.5-96035-3 eCW1 ([facility]) Hydrocortisone 10 MG/ML / Neomycin 3.5 M G/ML / Polymyxin B 38348 UNT/ML Otic Suspension Wakudsxa-Hzegkpfjt-HR 3.5-42405-3 Evzbrqho-Nhfkxarsq-KM 3.5-55218-9 03/18/2021 12:00:00 AM EDT 4.0 {drops_into_affected_ear} active Mfukvllq-Jjbcupwyb-DJ 3.508083-7 eCW1 ([facility]) Hydrocortisone 10 MG/ML / Neomycin 3.5 M G/ML / Polymyxin B 81041 UNT/ML Otic Suspension Ibtgwqpo-Flslayots-QF 3.512808-7 Xryziyex-Tpergaghz-UZ 3.5-80820-9 03/18/2021 12:00:00 AM EDT 4.0 {drops_into_affected_ear} active Vdnkedhp-Xfitzijbq-UE 3.599872-4 eCW1 ([facility]) Hydrocortisone 10 MG/ML / Neomycin 3.5 M G/ML / Polymyxin B 50658 UNT/ML Otic Suspension Dghrkxfo-Kpbwcyfat-TE 3.592148-0 Ftiltwwq-Hjhbouzxj-XD 3.533173-3 03/18/2021 12:00:00 AM EDT 4.0 {drops_into_affected_ear} active Edlebvtl-Eakvygsqa-QO 3.517360-6 eCW1 ([facility]) Hydrocortisone 10 MG/ML / Neomycin 3.5 M G/ML / Polymyxin B 07608 UNT/ML Otic Suspension supqqhdo-hojrhfcuu-exnujhklzbxghy (CORTISPORIN) 3.5-29519-7 otic suspension lyxwwewg-ptrnrfmmh-xespzyorisviex (CORTI SPORIN) 3.5-27871-1 otic suspension 03/18/2021 12:00:00 AM EDT 4 [drp] active Administer 4 drops into both ears 3 (three) times a day [facility] Hydrocortisone 10 MG/ML / Neomycin 3.5 M G/ML / Polymyxin B 41964 UNT/ML Otic Suspension Vgmhwpox-Khumutiea-ZN 3.5-13133-2 Wvqtnmjy-Ujglbrnao-SI 3.5-84898-0 03/18/2021 12:00:00 AM EDT 4.0 {drops_into_affected_ear} active eCW1 ([facility]) Hydrocortisone 10 MG/ML / Neomycin 3.5 M G/ML / Polymyxin B 20788 UNT/ML Otic Suspension Mjlxwwal-Ekhvjgiiy-CA 3.5-38246-7 Ohcwcnpc-Xjigzdawq-MD 3.5-39131-0 03/18/2021 12:00:00 AM EDT 4.0 {drops_into_affected_ear} active Zmxllyaz-Rkxedpghd-UP 3.5-65062-6 eCW1 ([facility]) Hydrocortisone 10 MG/ML / Neomycin 3.5 M G/ML / Polymyxin B 32642 UNT/ML Otic Suspension Rcpkktzc-Stpvkbqph-PE 3.5-95496-5 Ucfehthz-Otdnjflnm-IU 3.5-02236-4 03/18/2021 12:00:00 AM EDT 4.0 {drops_into_affected_ear} active Cwfsffzy-Jifgbyssz-WE 3.570265-3 eCW1 ([facility]) Hydrocortisone 10 MG/ML / Neomycin 3.5 M G/ML / Polymyxin B 31003 UNT/ML Otic Suspension Apvamedd-Nvcgehpee-SU 3.5-14299-4 Nzjvrwzr-Sfekcpwsw-HR 3.5-27756-9 03/18/2021 12:00:00 AM EDT 4.0 {drops_into_affected_ear} active Kbytglec-Mfyaqlkyc-BG 3.562700-6 eCW1 ([facility]) Hydrocortisone 10 MG/ML / Neomycin 3.5 M G/ML / Polymyxin B 83064 UNT/ML Otic Suspension Zdrusekc-Eokrnqyzy-TP 3.5-75632-1 Vjczqhte-Nolqxwbef-OF 3.5-44034-6 03/18/2021 12:00:00 AM EDT 4.0 {drops_into_affected_ear} active Mtsinkhf-Tnilkkcoi-FJ 3.5-40610-1 eCW1 ([facility]) Hydrocortisone 10 MG/ML / Neomycin 3.5 M G/ML / Polymyxin B 18475 UNT/ML Otic Suspension Otduhuer-Erhxgiscy-VM 3.5-75817-8 Hapyrfes-Airmrhgka-TU 3.5-01297-2 03/18/2021 12:00:00 AM EDT 4.0 {drops_into_affected_ear} active Obcflqpp-Drphqpnic-KD 3.5-96678-1 eCW1 ([facility]) Hydrocortisone 10 MG/ML / Neomycin 3.5 M G/ML / Polymyxin B 31082 UNT/ML Otic Suspension Ywktxezk-Jqxgtnomm-AF 3.5-53916-2 Imedxsaa-Mfymjrued-HP 3.5-46694-7 03/18/2021 12:00:00 AM EDT 4.0 {drops_into_affected_ear} active Pqirbwnu-Cfhkfktdo-QR 3.595112-8 eCW1 ([facility]) Hydrocortisone 10 MG/ML / Neomycin 3.5 M G/ML / Polymyxin B 93957 UNT/ML Otic Suspension Jyhpepkp-Fhbynmvhb-YU 3.526816-4 Dojnzpha-Kcbymnoqe-MN 3.5-11424-8 03/18/2021 12:00:00 AM EDT 4.0 {drops_into_affected_ear} active Oummhywk-Wjvkosezy-KI 3.597234-9 eCW1 ([facility]) Hydrocortisone 10 MG/ML / Neomycin 3.5 M G/ML / Polymyxin B 25035 UNT/ML Otic Suspension Etdlhwqx-Urhcmqvdd-II 3.528661-0 Taykuqdc-Yokqptyfs-UL 3.502136-7 03/18/2021 12:00:00 AM EDT 4.0 {drops_into_affected_ear} active Mtgpijvd-Cnzzaxcqw-US 3.503596-6 eCW1 ([facility]) Hydrocortisone 10 MG/ML / Neomycin 3.5 M G/ML / Polymyxin B 62369 UNT/ML Otic Suspension Qmqbzwya-Hdfjhwcor-RU 3.566493-2 Fjdtamlr-Mgwnjbzps-LH 3.5-72022-3 03/18/2021 12:00:00 AM EDT 4.0 {drops_into_affected_ear} active Zfrxdiug-Ttkvwkibh-VO 3.583098-0 eCW1 ([facility]) Hydrocortisone 10 MG/ML / Neomycin 3.5 M G/ML / Polymyxin B 84643 UNT/ML Otic Suspension Mqmthnmc-Cvkdhjlft-GL 3.5-37742-8 Vbeayfoh-Klkwbhkxe-JY 3.5-76233-7 03/18/2021 12:00:00 AM EDT 4.0 {drops_into_affected_ear} active Firblgtc-Ffnngsrqf-XN 3.5-35885-3 eCW1 ([facility]) Hydrocortisone 10 MG/ML / Neomycin 3.5 M G/ML / Polymyxin B 21256 UNT/ML Otic Suspension Nsquibgd-Ahlipiwov-JK 3.5-28505-3 Jvutgdkd-Huiqzqfau-FC 3.5-38616-3 03/18/2021 12:00:00 AM EDT 4.0 {drops_into_affected_ear} active Ldtyvqbo-Fzdiisrpr-QD 3.556091-6 eCW1 ([facility]) Hydrocortisone 10 MG/ML / Neomycin 3.5 M G/ML / Polymyxin B 19160 UNT/ML Otic Suspension Nqdwrqsq-Nxurofvxv-HN 3.538790-2 Mukncvyt-Ehyqxrcwx-UW 3.5-91726-1 03/18/2021 12:00:00 AM EDT 4.0 {drops_into_affected_ear} active Raxmhgub-Vmfxtwtyf-NH 3.525309-5 eCW1 ([facility]) Hydrocortisone 10 MG/ML / Neomycin 3.5 M G/ML / Polymyxin B 33559 UNT/ML Otic Suspension Okwafgtq-Ynxzinzmx-EY 3.586855-6 Tyamkybf-Hrtlsznxw-YQ 3.5-19508-2 03/18/2021 12:00:00 AM EDT 4.0 {drops_into_affected_ear} active Czdhvlyq-Ktdllghuc-HI 3.534466-8 eCW1 ([facility]) Hydrocortisone 10 MG/ML / Neomycin 3.5 M G/ML / Polymyxin B 77380 UNT/ML Otic Suspension Wqduffnb-Rbxocasdf-PD 3.5-63345-2 Veixgqfm-Jwvjrghdl-ND 3.5-12784-4 03/18/2021 12:00:00 AM EDT 4.0 {drops_into_affected_ear} active Axpkqnew-Iuvvodclp-YR 3.584043-0 eCW1 ([facility]) Hydrocortisone 10 MG/ML / Neomycin 3.5 M G/ML / Polymyxin B 99987 UNT/ML Otic Suspension Sislmwuu-Aexaudcjk-KO 3.5-50356-9 Bkxiemxg-Akwgutzxn-AH 3.5-12877-4 03/18/2021 12:00:00 AM EDT 4.0 {drops_into_affected_ear} active Cgfjlvff-Sagrcfdvx-WR 3.5-33127-4 eCW1 ([facility]) Hydrocortisone 10 MG/ML / Neomycin 3.5 M G/ML / Polymyxin B 58290 UNT/ML Otic Suspension Lknjvxaw-Nfmkmwecy-PR 3.5-56522-9 Jchaiqeo-Sukkqnyoo-MO 3.5-62443-9 03/18/2021 12:00:00 AM EDT 4.0 {drops_into_affected_ear} active Ylimjvsr-Sdawpzqfb-AU 3.5-46207-2 eCW1 ([facility]) Hydrocortisone 10 MG/ML / Neomycin 3.5 M G/ML / Polymyxin B 91232 UNT/ML Otic Suspension Qvdbelib-Lulkqwiro-TI 3.5-68783-4 Sqrhmudu-Cqvlzgelc-JN 3.5-81080-1 03/18/2021 12:00:00 AM EDT 4.0 {drops_into_affected_ear} active Rqadikvb-Wksrnjzun-TC 3.510314-0 eCW1 ([facility]) Hydrocortisone 10 MG/ML / Neomycin 3.5 M G/ML / Polymyxin B 86966 UNT/ML Otic Suspension Vogekyrv-Qdfqdmsav-GA 3.547374-7 Uyrggugg-Udxbuqttw-XJ 3.5-97597-0 03/18/2021 12:00:00 AM EDT 4.0 {drops_into_affected_ear} active Ncnrcwmx-Vbusiqgzy-UZ 3.548557-5 eCW1 ([facility]) Hydrocortisone 10 MG/ML / Neomycin 3.5 M G/ML / Polymyxin B 15075 UNT/ML Otic Suspension Fccneqag-Rszugfdfd-MJ 3.5-87913-5 Lnubvahe-Esvwauydi-OW 3.5-53315-3 03/18/2021 12:00:00 AM EDT 4.0 {drops_into_affected_ear} active Lxdksgtf-Hmmauqfzb-KX 3.5-14864-8 eCW1 ([facility]) Hydrocortisone 10 MG/ML / Neomycin 3.5 M G/ML / Polymyxin B 05802 UNT/ML Otic Suspension Vwlkuhqa-Izbykgvzz-RH 3.5-04365-8 Rucjgjau-Pvjbpaluy-LS 3.5-42014-3 03/18/2021 12:00:00 AM EDT 4.0 {drops_into_affected_ear} active Yzhtnhes-Wguxqmfnw-CK 3.5-39972-4 eCW1 ([facility]) Hydrocortisone 10 MG/ML / Neomycin 3.5 M G/ML / Polymyxin B 18318 UNT/ML Otic Suspension Aemquylr-Hzeiojxjv-EN 3.5-85623-9 Ckzjuohs-Nelhakqnl-GB 3.5-99769-1 03/18/2021 12:00:00 AM EDT 4.0 {drops_into_affected_ear} active Qucydvcn-Ipjrhlckm-NQ 3.5-03705-9 eCW1 ([facility]) Hydrocortisone 10 MG/ML / Neomycin 3.5 M G/ML / Polymyxin B 09277 UNT/ML Otic Suspension Hrugdxnw-Hlyfrzhiu-BQ 3.5-14239-4 Hkwgsfom-Kppzpqqbs-KG 3.5-13767-6 03/18/2021 12:00:00 AM EDT 4.0 {drops_into_affected_ear} active Bvalkjrl-Fwsukekup-CW 3.5-00046-9 eCW1 ([facility]) POLYETHYLENE GLYCOL 3350 142 MG/ML Oral Solution [Carlene lax] MiraLax 17 GM/SCOOP MiraLax 17 GM/SCOOP 03/15/2021 12:00:00 AM EDT active MiraLax 17 GM/SCOOP eCW1 ([facility]) POLYETHYLENE GLYCOL 3350 142 MG/ML Oral Solution [Carlene lax] MiraLax 17 GM/SCOOP MiraLax 17 GM/SCOOP 03/15/2021 12:00:00 AM EDT active MiraLax 17 GM/SCOOP eCW1 ([facility]) POLYETHYLENE GLYCOL 3350 142 MG/ML Oral Solution [Carlene lax] MiraLax 17 GM/SCOOP MiraLax 17 GM/SCOOP 03/15/2021 12:00:00 AM EDT active MiraLax 17 GM/SCOOP eCW1 ([facility]) Docusate Sodium 100 MG Oral Capsule [Colace] Colace 100 MG C olace 100 MG 03/15/2021 12:00:00 AM EDT 1.0 {capsule} active Colace 100 MG eCW1 ([facility]) POLYETHYLENE GLYCOL 3350 142 MG/ML Oral Solution [Carlene lax] MiraLax 17 GM/SCOOP MiraLax 17 GM/SCOOP 03/15/2021 12:00:00 AM EDT active MiraLax 17 GM/SCOOP eCW1 ([facility]) Docusate Sodium 100 MG Oral Capsule [Colace] Colace 100 MG C olace 100 MG 03/15/2021 12:00:00 AM EDT 1.0 {capsule} active Colace 100 MG eCW1 ([facility]) POLYETHYLENE GLYCOL 3350 142 MG/ML Oral Solution [Carlene lax] MiraLax 17 GM/SCOOP MiraLax 17 GM/SCOOP 03/15/2021 12:00:00 AM EDT active MiraLax 17 GM/SCOOP eCW1 ([facility]) POLYETHYLENE GLYCOL 3350 142 MG/ML Oral Solution [Carlene lax] MiraLax 17 GM/SCOOP MiraLax 17 GM/SCOOP 03/15/2021 12:00:00 AM EDT active MiraLax 17 GM/SCOOP eCW1 ([facility]) Docusate Sodium 100 MG Oral Capsule [Colace] Colace 100 MG C olace 100 MG 03/15/2021 12:00:00 AM EDT 1.0 {capsule} active Colace 100 MG eCW1 ([facility]) Docusate Sodium 100 MG Oral Capsule [Colace] Colace 100 MG C olace 100 MG 03/15/2021 12:00:00 AM EDT 1.0 {capsule} active Colace 100 MG eCW1 ([facility]) POLYETHYLENE GLYCOL 3350 142 MG/ML Oral Solution [Carlene lax] MiraLax 17 GM/SCOOP MiraLax 17 GM/SCOOP 03/15/2021 12:00:00 AM EDT active MiraLax 17 GM/SCOOP eCW1 ([facility]) POLYETHYLENE GLYCOL 3350 142 MG/ML Oral Solution [Carlene lax] MiraLax 17 GM/SCOOP MiraLax 17 GM/SCOOP 03/15/2021 12:00:00 AM EDT active MiraLax 17 GM/SCOOP eCW1 ([facility]) Docusate Sodium 100 MG Oral Capsule [Colace] Colace 100 MG C olace 100 MG 03/15/2021 12:00:00 AM EDT 1.0 {capsule} active Colace 100 MG eCW1 ([facility]) POLYETHYLENE GLYCOL 3350 142 MG/ML Oral Solution [Carlene lax] MiraLax 17 GM/SCOOP MiraLax 17 GM/SCOOP 03/15/2021 12:00:00 AM EDT active MiraLax 17 GM/SCOOP eCW1 ([facility]) Docusate Sodium 100 MG Oral Capsule [Colace] Colace 100 MG C olace 100 MG 03/15/2021 12:00:00 AM EDT 1.0 {capsule} active Colace 100 MG eCW1 ([facility]) POLYETHYLENE GLYCOL 3350 142 MG/ML Oral Solution [Carlene lax] MiraLax 17 GM/SCOOP MiraLax 17 GM/SCOOP 03/15/2021 12:00:00 AM EDT active MiraLax 17 GM/SCOOP eCW1 ([facility]) Docusate Sodium 100 MG Oral Capsule [Colace] Colace 100 MG C olace 100 MG 03/15/2021 12:00:00 AM EDT 1.0 {capsule} active Colace 100 MG eCW1 ([facility]) POLYETHYLENE GLYCOL 3350 142 MG/ML Oral Solution [Carlene lax] MiraLax 17 GM/SCOOP MiraLax 17 GM/SCOOP 03/15/2021 12:00:00 AM EDT active MiraLax 17 GM/SCOOP eCW1 ([facility]) POLYETHYLENE GLYCOL 3350 142 MG/ML Oral Solution [Carlene lax] MiraLax 17 GM/SCOOP MiraLax 17 GM/SCOOP 03/15/2021 12:00:00 AM EDT active MiraLax 17 GM/SCOOP eCW1 ([facility]) POLYETHYLENE GLYCOL 3350 142 MG/ML Oral Solution [Carlene lax] MiraLax 17 GM/SCOOP MiraLax 17 GM/SCOOP 03/15/2021 12:00:00 AM EDT active MiraLax 17 GM/SCOOP eCW1 ([facility]) POLYETHYLENE GLYCOL 3350 142 MG/ML Oral Solution [Carlene lax] MiraLax 17 GM/SCOOP MiraLax 17 GM/SCOOP 03/15/2021 12:00:00 AM EDT act forrest eCW1 ([facility]) POLYETHYLENE GLYCOL 3350 142 MG/ML Oral Solution [Carlene lax] MiraLax 17 GM/SCOOP MiraLax 17 GM/SCOOP 03/15/2021 12:00:00 AM EDT active MiraLax 17 GM/SCOOP eCW1 ([facility]) POLYETHYLENE GLYCOL 3350 142 MG/ML Oral Solution polyethylene glycol (GLYCOLAX) 17 GM/SCOOP powder polyethylene glycol (GLYCOLAX) 17 GM/SCOOP powder 03/05 12:00:00 AM EDT 17 g Oral active Take 17 g by mouth as needed [facility] POLYETHYLENE GLYCOL 3350 142 MG/ML Oral Solution [Carlene lax] MiraLax 17 GM/SCOOP MiraLax 17 GM/SCOOP 03/15/2021 12:00:00 AM EDT active MiraLax 17 GM/SCOOP eCW1 ([facility]) POLYETHYLENE GLYCOL 3350 142 MG/ML Oral Solution [Carlene lax] MiraLax 17 GM/SCOOP MiraLax 17 GM/SCOOP 03/15/2021 12:00:00 AM EDT active MiraLax 17 GM/SCOOP eCW1 ([facility]) Docusate Sodium 100 MG Oral Capsule [Colace] Colace 100 MG C olace 100 MG 03/15/2021 12:00:00 AM EDT 1.0 {capsule} active Colace 100 MG eCW1 ([facility]) POLYETHYLENE GLYCOL 3350 142 MG/ML Oral Solution [Carlene lax] MiraLax 17 GM/SCOOP MiraLax 17 GM/SCOOP 03/15/2021 12:00:00 AM EDT active MiraLax 17 GM/SCOOP eCW1 ([facility]) POLYETHYLENE GLYCOL 3350 142 MG/ML Oral Solution [Carlene lax] MiraLax 17 GM/SCOOP MiraLax 17 GM/SCOOP 03/15/2021 12:00:00 AM EDT active MiraLax 17 GM/SCOOP eCW1 ([facility]) POLYETHYLENE GLYCOL 3350 142 MG/ML Oral Solution [Carlene lax] MiraLax 17 GM/SCOOP MiraLax 17 GM/SCOOP 03/15/2021 12:00:00 AM EDT active MiraLax 17 GM/SCOOP eCW1 ([facility]) Docusate Sodium 100 MG Oral Capsule [Colace] Colace 100 MG C olace 100 MG 03/15/2021 12:00:00 AM EDT 1.0 {capsule} active Colace 100 MG eCW1 ([facility]) Docusate Sodium 100 MG Oral Capsule [Colace] Colace 100 MG C olace 100 MG 03/15/2021 12:00:00 AM EDT 1.0 {capsule} active Colace 100 MG eCW1 ([facility]) POLYETHYLENE GLYCOL 3350 142 MG/ML Oral Solution [Carlene lax] MiraLax 17 GM/SCOOP MiraLax 17 GM/SCOOP 03/15/2021 12:00:00 AM EDT active MiraLax 17 GM/SCOOP eCW1 ([facility]) POLYETHYLENE GLYCOL 3350 142 MG/ML Oral Solution [Carlene lax] MiraLax 17 GM/SCOOP MiraLax 17 GM/SCOOP 03/15/2021 12:00:00 AM EDT active MiraLax 17 GM/SCOOP eCW1 ([facility]) POLYETHYLENE GLYCOL 3350 142 MG/ML Oral Solution [Carlene lax] MiraLax 17 GM/SCOOP MiraLax 17 GM/SCOOP 03/15/2021 12:00:00 AM EDT active MiraLax 17 GM/SCOOP eCW1 ([facility]) POLYETHYLENE GLYCOL 3350 142 MG/ML Oral Solution [Carlene lax] MiraLax 17 GM/SCOOP MiraLax 17 GM/SCOOP 03/15/2021 12:00:00 AM EDT active MiraLax 17 GM/SCOOP eCW1 ([facility]) Docusate Sodium 100 MG Oral Capsule [Colace] Colace 100 MG C olace 100 MG 03/15/2021 12:00:00 AM EDT 1.0 {capsule} active Colace 100 MG eCW1 ([facility]) POLYETHYLENE GLYCOL 3350 142 MG/ML Oral Solution [Carlene lax] MiraLax 17 GM/SCOOP MiraLax 17 GM/SCOOP 03/15/2021 12:00:00 AM EDT active MiraLax 17 GM/SCOOP eCW1 ([facility]) POLYETHYLENE GLYCOL 3350 142 MG/ML Oral Solution [Carlene lax] MiraLax 17 GM/SCOOP MiraLax 17 GM/SCOOP 03/15/2021 12:00:00 AM EDT active MiraLax 17 GM/SCOOP eCW1 ([facility]) Docusate Sodium 100 MG Oral Capsule [Colace] Colace 100 MG C olace 100 MG 03/15/2021 12:00:00 AM EDT 1.0 {capsule} active Colace 100 MG eCW1 ([facility]) POLYETHYLENE GLYCOL 3350 142 MG/ML Oral Solution [Carlene lax] MiraLax 17 GM/SCOOP MiraLax 17 GM/SCOOP 03/15/2021 12:00:00 AM EDT active MiraLax 17 GM/SCOOP eCW1 ([facility]) Fluocinolone Acetonide 0.1 MG/ML Otic Solution [Jeremy ic] DermOtic 0.01 % DermOtic 0.01 % 03/15/2021 12:00:00 AM EDT active DermOtic 0.01 % eCW1 ([facility]) POLYETHYLENE GLYCOL 3350 142 MG/ML Oral Solution [Carlene lax] MiraLax 17 GM/SCOOP MiraLax 17 GM/SCOOP 03/15/2021 12:00:00 AM EDT active MiraLax 17 GM/SCOOP eCW1 ([facility]) POLYETHYLENE GLYCOL 3350 142 MG/ML Oral Solution [Carlene lax] MiraLax 17 GM/SCOOP MiraLax 17 GM/SCOOP 03/15/2021 12:00:00 AM EDT active MiraLax 17 GM/SCOOP eCW1 ([facility]) Docusate Sodium 100 MG Oral Capsule [Colace] Colace 100 MG C olace 100 MG 03/15/2021 12:00:00 AM EDT 1.0 {capsule} active Colace 100 MG eCW1 ([facility]) POLYETHYLENE GLYCOL 3350 142 MG/ML Oral Solution [Carlene lax] MiraLax 17 GM/SCOOP MiraLax 17 GM/SCOOP 03/15/2021 12:00:00 AM EDT active MiraLax 17 GM/SCOOP eCW1 ([facility]) POLYETHYLENE GLYCOL 3350 142 MG/ML Oral Solution [Carlene lax] MiraLax 17 GM/SCOOP MiraLax 17 GM/SCOOP 03/15/2021 12:00:00 AM EDT active MiraLax 17 GM/SCOOP eCW1 ([facility]) POLYETHYLENE GLYCOL 3350 142 MG/ML Oral Solution [Carlene lax] MiraLax 17 GM/SCOOP MiraLax 17 GM/SCOOP 03/15/2021 12:00:00 AM EDT active MiraLax 17 GM/SCOOP eCW1 ([facility]) POLYETHYLENE GLYCOL 3350 142 MG/ML Oral Solution [Carlene lax] MiraLax 17 GM/SCOOP MiraLax 17 GM/SCOOP 03/15/2021 12:00:00 AM EDT active MiraLax 17 GM/SCOOP eCW1 ([facility]) Fluocinolone Acetonide 0.1 MG/ML Otic Solution [Jeremy ic] DermOtic 0.01 % DermOtic 0.01 % 03/15/2021 12:00:00 AM EDT active DermOtic 0.01 % eCW1 ([facility]) POLYETHYLENE GLYCOL 3350 142 MG/ML Oral Solution [Carlene lax] MiraLax 17 GM/SCOOP MiraLax 17 GM/SCOOP 03/15/2021 12:00:00 AM EDT active MiraLax 17 GM/SCOOP eCW1 ([facility]) Docusate Sodium 100 MG Oral Capsule [Colace] Colace 100 MG C olace 100 MG 03/15/2021 12:00:00 AM EDT 1.0 {capsule} active Colace 100 MG eCW1 ([facility]) POLYETHYLENE GLYCOL 3350 142 MG/ML Oral Solution [Carlene lax] MiraLax 17 GM/SCOOP MiraLax 17 GM/SCOOP 03/15/2021 12:00:00 AM EDT active MiraLax 17 GM/SCOOP eCW1 ([facility]) POLYETHYLENE GLYCOL 3350 142 MG/ML Oral Solution [Carlene lax] MiraLax 17 GM/SCOOP MiraLax 17 GM/SCOOP 03/15/2021 12:00:00 AM EDT active MiraLax 17 GM/SCOOP eCW1 ([facility]) POLYETHYLENE GLYCOL 3350 142 MG/ML Oral Solution [Carlene lax] MiraLax 17 GM/SCOOP MiraLax 17 GM/SCOOP 03/15/2021 12:00:00 AM EDT active MiraLax 17 GM/SCOOP eCW1 ([facility]) Docusate Sodium 100 MG Oral Capsule [Colace] Colace 100 MG C olace 100 MG 03/15/2021 12:00:00 AM EDT 1.0 {capsule} active Colace 100 MG eCW1 ([facility]) Docusate Sodium 100 MG Oral Capsule [Colace] Colace 100 MG C olace 100 MG 03/15/2021 12:00:00 AM EDT 1.0 {capsule} active Colace 100 MG eCW1 ([facility]) POLYETHYLENE GLYCOL 3350 142 MG/ML Oral Solution [Carlene lax] MiraLax 17 GM/SCOOP MiraLax 17 GM/SCOOP 03/15/2021 12:00:00 AM EDT active MiraLax 17 GM/SCOOP eCW1 ([facility]) POLYETHYLENE GLYCOL 3350 142 MG/ML Oral Solution [Carlene lax] MiraLax 17 GM/SCOOP MiraLax 17 GM/SCOOP 03/15/2021 12:00:00 AM EDT active MiraLax 17 GM/SCOOP eCW1 ([facility]) POLYETHYLENE GLYCOL 3350 142 MG/ML Oral Solution [Carlene lax] MiraLax 17 GM/SCOOP MiraLax 17 GM/SCOOP 03/15/2021 12:00:00 AM EDT active MiraLax 17 GM/SCOOP eCW1 ([facility]) POLYETHYLENE GLYCOL 3350 142 MG/ML Oral Solution [Carlene lax] MiraLax 17 GM/SCOOP MiraLax 17 GM/SCOOP 03/15/2021 12:00:00 AM EDT active MiraLax 17 GM/SCOOP eCW1 ([facility]) POLYETHYLENE GLYCOL 3350 142 MG/ML Oral Solution [Carlene lax] MiraLax 17 GM/SCOOP MiraLax 17 GM/SCOOP 03/15/2021 12:00:00 AM EDT active MiraLax 17 GM/SCOOP eCW1 ([facility]) POLYETHYLENE GLYCOL 3350 142 MG/ML Oral Solution [Carlene lax] MiraLax 17 GM/SCOOP MiraLax 17 GM/SCOOP 03/15/2021 12:00:00 AM EDT active MiraLax 17 GM/SCOOP eCW1 ([facility]) Docusate Sodium 100 MG Oral Capsule [Colace] Colace 100 MG C olace 100 MG 03/15/2021 12:00:00 AM EDT 1.0 {capsule} active Colace 100 MG eCW1 ([facility]) POLYETHYLENE GLYCOL 3350 142 MG/ML Oral Solution [Carlene lax] MiraLax 17 GM/SCOOP MiraLax 17 GM/SCOOP 03/15/2021 12:00:00 AM EDT active MiraLax 17 GM/SCOOP eCW1 ([facility]) POLYETHYLENE GLYCOL 3350 142 MG/ML Oral Solution [Carlene lax] MiraLax 17 GM/SCOOP MiraLax 17 GM/SCOOP 03/15/2021 12:00:00 AM EDT act forrest eCW1 ([facility]) Docusate Sodium 100 MG Oral Capsule [Colace] Colace 100 MG C olace 100 MG 03/15/2021 12:00:00 AM EDT 1.0 {capsule} active Colace 100 MG eCW1 ([facility]) Docusate Sodium 100 MG Oral Capsule [Colace] Colace 100 MG C olace 100 MG 03/15/2021 12:00:00 AM EDT 1.0 {capsule} active Colace 100 MG eCW1 ([facility]) Docusate Sodium 100 MG Oral Capsule [Colace] Colace 100 MG C olace 100 MG 03/15/2021 12:00:00 AM EDT 1.0 {capsule} active Colace 100 MG eCW1 ([facility]) Bisacodyl 5 MG Delayed Release Oral Tablet bisacodyl 5 MG EC tablet bisacodyl 5 MG EC tablet 03/02/2021 12:00:00 AM EDT 10 mg Oral activ e Take 10 mg by mouth daily [facility] Inject Triamcinolone Acetonide 10 ML, [facility] 7355-0443-14 02/26/2021 12:00:00 AM EDT completed MED[facility] ([facility] Medication administered onsite Inject Dexamthosone Phosphate 24094-320-93 02/26/2021 12:00:00 A M EDT completed MEDENT ([facility] Medication administered onsite Metoprolol Tartrate 25 MG Oral Tablet me toprolol tartrate (LOPRESSOR) 25 MG tablet metoprolol tartrate (LOPRESSOR) 25 MG tablet 02/26/2021 12:0 0:00 AM EDT active TAKE 1/2 TABLET BY MOUTH @8AM [facility] Prednisone 10 MG Oral Tablet Prednisone 02/12/2021 12:00:00 AM EDT completed [facility] ([facility] Clobetasol Propionate 0.5 MG/ML Topical Cream Clobetas ol Propionate 0.05 % Clobetasol Propionate 0.05 % 01/25/2021 12:00:00 AM EDT active Clobetasol Propionate 0.05 % eCW1 ([facility]) Clobetasol Propionate 0.5 MG/ML Topical Cream Clobetas ol Propionate 0.05 % Clobetasol Propionate 0.05 % 01/25/2021 12:00:00 AM EDT active Clobetasol Propionate 0.05 % eCW1 ([facility]) Clobetasol Propionate 0.5 MG/ML Topical Cream Clobetas ol Propionate 0.05 % Clobetasol Propionate 0.05 % 01/25/2021 12:00:00 AM EDT active Clobetasol Propionate 0.05 % eCW1 ([facility]) Clobetasol Propionate 0.5 MG/ML Topical Cream Clobetas ol Propionate 0.05 % Clobetasol Propionate 0.05 % 01/25/2021 12:00:00 AM EDT active Clobetasol Propionate 0.05 % eCW1 ([facility]) Clobetasol Propionate 0.5 MG/ML Topical Cream Clobetas ol Propionate 0.05 % Clobetasol Propionate 0.05 % 01/25/2021 12:00:00 AM EDT active Clobetasol Propionate 0.05 % eCW1 ([facility]) Clobetasol Propionate 0.5 MG/ML Topical Cream Clobetas ol Propionate 0.05 % Clobetasol Propionate 0.05 % 01/25/2021 12:00:00 AM EDT active Clobetasol Propionate 0.05 % eCW1 ([facility]) Clobetasol Propionate 0.5 MG/ML Topical Cream Clobetas ol Propionate 0.05 % Clobetasol Propionate 0.05 % 01/25/2021 12:00:00 AM EDT active Clobetasol Propionate 0.05 % eCW1 ([facility]) Clobetasol Propionate 0.5 MG/ML Topical Cream Clobetas ol Propionate 0.05 % Clobetasol Propionate 0.05 % 01/25/2021 12:00:00 AM EDT active Clobetasol Propionate 0.05 % eCW1 ([facility]) Betamethasone 0.5 MG/ML / Clotrimazole 10 MG/ML Topica l Cream Clotrimazole/Betamethasone Dipropionate 12/31/2020 12:00:00 AM EDT completed [facility] ([facility] Diclofenac Sodium 0.01 MG/MG Topical Gel Diclofenac Sodium 12/07/2020 12:00:00 AM EST active [facility] ([facility] Polymyxin B 98521 UNT/ML / Trimethoprim 1 MG/ML Ophtha lmic Solution Polymyxin B Sulfate/Trimethoprim Sulfate 11/17/2020 12:00:00 AM EST OPHT HALMIC active MEDENT ([facility]) mometasone furoate 1 MG/ML Topical Cream Mometasone Furoate 11/15/2020 12:00:00 AM EST completed [facility] ([facility] Betamethasone 0.5 MG/ML Topical Cream Betamethasone Dipropio anjel 11/06/2020 12:00:00 AM EST active M EDENT ([facility] Fluocinolone Acetonide 0.1 MG/ML Otic Solution [Jeremy ic] DermOtic 0.01 % DermOtic 0.01 % 08/07/2020 12:00:00 AM EST active DermOtic 0.01 % eCW1 ([facility]) Fluocinolone Acetonide 0.1 MG/ML Otic Solution [Jeremy ic] DermOtic 0.01 % DermOtic 0.01 % 08/07/2020 12:00:00 AM EST cho spended DermOtic 0.01 % eCW1 ([facility]) Fluocinolone Acetonide 0.1 MG/ML Otic Solution [Jeremy ic] DermOtic 0.01 % DermOtic 0.01 % 08/07/2020 12:00:00 AM EST active DermOtic 0.01 % eCW1 ([facility]) Fluocinolone Acetonide 0.1 MG/ML Otic Solution [Jeremy ic] DermOtic 0.01 % DermOtic 0.01 % 08/07/2020 12:00:00 AM EST active DermOtic 0.01 % eCW1 ([facility]) Fluocinolone Acetonide 0.1 MG/ML Otic Solution [Jeremy ic] DermOtic 0.01 % DermOtic 0.01 % 08/07/2020 12:00:00 AM EST active DermOtic 0.01 % eCW1 ([facility]) Fluocinolone Acetonide 0.1 MG/ML Otic Solution [Jeremy ic] DermOtic 0.01 % DermOtic 0.01 % 08/07/2020 12:00:00 AM EST active DermOtic 0.01 % eCW1 ([facility]) Fluocinolone Acetonide 0.1 MG/ML Otic Solution [Jeremy ic] DermOtic 0.01 % DermOtic 0.01 % 08/07/2020 12:00:00 AM EST cho spended DermOtic 0.01 % eCW1 ([facility]) Fluocinolone Acetonide 0.1 MG/ML Otic Solution [Jeremy ic] DermOtic 0.01 % DermOtic 0.01 % 08/07/2020 12:00:00 AM EST active DermOtic 0.01 % eCW1 ([facility]) Fluocinolone Acetonide 0.1 MG/ML Otic Solution [Jeremy ic] DermOtic 0.01 % DermOtic 0.01 % 08/07/2020 12:00:00 AM EST active DermOtic 0.01 % eCW1 ([facility]) Fluocinolone Acetonide 0.1 MG/ML Otic Solution [Jeremy ic] DermOtic 0.01 % DermOtic 0.01 % 08/07/2020 12:00:00 AM EST active DermOtic 0.01 % eCW1 ([facility]) Fluocinolone Acetonide 0.1 MG/ML Otic Solution [Jeremy ic] DermOtic 0.01 % DermOtic 0.01 % 08/07/2020 12:00:00 AM EST active DermOtic 0.01 % eCW1 ([facility]) Fluocinolone Acetonide 0.1 MG/ML Otic Solution [Jeremy ic] DermOtic 0.01 % DermOtic 0.01 % 08/07/2020 12:00:00 AM EST active DermOtic 0.01 % eCW1 ([facility]) Fluocinolone Acetonide 0.1 MG/ML Otic Solution [Jeremy ic] DermOtic 0.01 % DermOtic 0.01 % 08/07/2020 12:00:00 AM EST active DermOtic 0.01 % eCW1 ([facility]) Fluocinolone Acetonide 0.1 MG/ML Otic Solution [Jeremy ic] DermOtic 0.01 % DermOtic 0.01 % 08/07/2020 12:00:00 AM EST active DermOtic 0.01 % eCW1 ([facility]) Fluocinolone Acetonide 0.1 MG/ML Otic Solution [Jeremy ic] DermOtic 0.01 % DermOtic 0.01 % 08/07/2020 12:00:00 AM EST active DermOtic 0.01 % eCW1 ([facility]) Fluocinolone Acetonide 0.1 MG/ML Otic Solution [Jeremy ic] DermOtic 0.01 % DermOtic 0.01 % 08/07/2020 12:00:00 AM EST cho spended DermOtic 0.01 % eCW1 ([facility]) Fluocinolone Acetonide 0.1 MG/ML Otic Solution [Jeremy ic] DermOtic 0.01 % DermOtic 0.01 % 08/07/2020 12:00:00 AM EST active DermOtic 0.01 % eCW1 ([facility]) Fluocinolone Acetonide 0.1 MG/ML Otic Solution [Jeremy ic] DermOtic 0.01 % DermOtic 0.01 % 08/07/2020 12:00:00 AM EST active DermOtic 0.01 % eCW1 ([facility]) Fluocinolone Acetonide 0.1 MG/ML Otic Solution [Jeremy ic] DermOtic 0.01 % DermOtic 0.01 % 08/07/2020 12:00:00 AM EST cho spended DermOtic 0.01 % eCW1 ([facility]) Fluocinolone Acetonide 0.1 MG/ML Otic Solution [Jeremy ic] DermOtic 0.01 % DermOtic 0.01 % 08/07/2020 12:00:00 AM EST cho spended DermOtic 0.01 % eCW1 ([facility]) Fluocinolone Acetonide 0.1 MG/ML Otic Solution [Jeremy ic] DermOtic 0.01 % DermOtic 0.01 % 08/07/2020 12:00:00 AM EST active DermOtic 0.01 % eCW1 ([facility]) Sulfamethoxazole 800 MG / Trimethoprim 160 [...] Mupirocin 07/14/2020 12:00:00 AM EDT completed MEDENT ([facility]) apixaban 5 MG Oral Tablet [Eliquis] ELIQUIS 5 MG TABS tablet ELIQUIS 5 MG TABS tablet 05/15/2020 12:00:00 AM EDT aborted TAKE TWO TABLETS BY MOUTH TWICE DAILY FOR ONE WEEK THEN ONE TABLET TWICE DAILY FOR 23 DAYS [facility] Mupirocin 0.02 MG/MG Topical Ointment mupirocin (BACTR OBAN) 2 % ointment mupirocin (BACTROBAN) 2 % ointment 04/12/2020 12:00:00 AM EDT aborted APPLY TO WOUND ON RIGHT FOOT ONCE DAILY [facility] Levothyroxine Sodium 0.075 MG Oral Table t levothyroxine (SYNTHROID, LEVOTHROID) 75 MCG tablet levothyroxine (SYNTHROID, LEVOTHROID) 75 MCG tablet 12:00:00 AM EST 1 {tbl} Oral aborted Take 1 tablet by mouth daily [facility] Aspirin 325 MG Delayed Release Oral Tablet aspirin EC 325 MG EC tablet aspirin EC 325 MG EC tablet 325 mg Oral aborted Frank e 325 mg by mouth daily [facility] Polyvinyl Alcohol 0.014 ML/ML Ophthalmic Solution polyvinyl alcohol (ARTIFICIAL TEARS) 1.4 % ophthalmic solution polyvinyl alcohol (ARTIFICIAL TEARS) 1.4 % ophthalmic solution 1 [drp] aborted Administer 1 drop to both eyes 2 (two) times a day [facility] Hydrocortisone 10 MG/ML Topical Cream hydrocortisone 1 % cream hydrocortisone 1 % cream Topical aborted Apply topicall y 2 (two) times a day [facility] Acetaminophen 500 MG Oral Tablet acetaminophen (TYLENO L) 500 MG tablet acetaminophen (TYLENOL) 500 MG tablet 1000 mg Oral aborted Take 1,000 mg by mouth every 6 (six) hours as needed for pain [facility] ammonium lactate 120 MG/ML Topical Lotio n ammonium lactate (LAC-HYDRIN) 12 % lotion ammonium lactate (LAC-HYDRIN) 12 % lotion 1 {appli cation} Topical aborted Apply 1 application topicall y daily as needed for dry skin [facility] Insurance Providers Payer name Policy type / Coverage type Policy ID Covered democrat ID Covered democrat's relationship to uribe Policy Uribe Plan Information HMOBLUE OPTION 2 [id number] HMOBLUE OPTION 2 [id number] Medicaid [facility] Part B [id number] ..[id number] .[id number] Self [id number] [facility] [id number] .[id number] .[id number] Self [id number] [facility] [id number] ..[id number] .[id number] Self [id number] [facility] [id number] Self [id number] [facility] [id number] ..[id number] .[id number] Self [id number] [facility] [id number] Self [id number] [facility] [id number] .[id number] Self [id number] [place] [id number] .[id number] Self [id number] [place] [id number] .[id number] Self [id number] [place] [id number] .[id number] Self [id number] [place] [id number] .[id number] Self [id number] [place] [id number] Self [id number] [place] [id number] [id number] .[id number] Self [id number] [place] [id number] Self BS [employer] Medigap Part B [id number] Self [id number] BS [employer] Medigap Part B [id number] [id number] Self [id number] [employer] Medigap Part B [id number] 2.0.1.065[id number] Self [id number] [employer] Medigap Part B [id number] Self [id number] [employer] Medigap Part B [id number] 2.0.1.780[id number] Self [id number] [employer] Medigap Part B [id number] 2.0.1.327[id number] Self [id number] [employer] Medigap Part B [id number] [id number] Self [id number] [employer] Part B [id number] 2.0.1.017[id number] Self [id number] [employer] Medigap Part B [id number] 2..1.149209.3.227.99.991.541906.0 Self [id number] [employer] Medigap Part B [id number] 2..1.345542.3.227.99.991.495181.0 Self [id number] [employer] Medigap Part B [id number] Self [id number] [employer] Medigap Part B [id number] 2..1.969269.3.227.99.991.352577.0 Self [id number] [employer] Medigap Part B [id number] Self [id number] [employer] Medigap Part B [id number] 2..1.663024.3.227.99.991.973403.0 Self [id number] [facility] Plan Commercial [id number] 2.0.1.20[id number] Self 1 [id number] [facility] I [id number] Self [id number] [facility] Community Plan Commercial [id number] Self [id number] [facility] Community Plan Commercial [id number] Self [id number] [facility] [id number] Self [facility] I [id number] Self [id number] [facility] Commercial [id number] Self [id number] [facility] MEDICAID [id number] Kisha [id number] [facility] MEDICAID [id number] Kisha [id number] 33 FORMERLY [facility] COMMUNITY PLAN MCDHMO [id number] SP [id number] [facility] COMMUNITY PLAN MCDHMO [id number] SP [id number] [facility] MEDICAID [id number] 1 [facility] COMMUNITY PLAN MCDHMO [id number] SP [id number] [facility]MERLY [facility] COMMUNITY PLAN MCDHMO [id number] SP [id number] [facility] Community Plan Commercial [id number] Self [id number] FORMERLY [facility] COMMUNITY PLAN MCDHMO [id number] SP [id number] [facility] Health Maintenance Organization (HMO) [id number] Self [id number] [facility]-Medicaid [id number] ANS-Medicaid [id number] ANSI-Medicaid [id number] ANSI-Medicaid [id number] ANSI-Medicaid [id number] ANSI-Medicaid [id number] ANSI-Medicaid [id number] ANSI-Medicaid [id number] ANSI-Medicaid [id number] ANSI-Medicaid [id number] ANSI-Medicaid [id number] ANSI-Medicaid [id number] ANSI-Medicaid [id number] ANSI-Medicaid [id number] ANSI-Medicaid [id number] ANSI-Medicaid [id number] ANSI-Medicaid [id number] ANSI-Medicaid [id number] ANSI-Medicaid [id number] ANSI-Medicaid [id number] ANSI-Medicaid [id number] ANSI-Medicaid [id number] ANSI-Medicaid [id number] ANSI-Medicaid [id number] ANSI-Medicaid [id number] ANSI-Medicaid [id number]-[id number] ANSI-Medicaid [id number] ANSI-Medicaid [id number]-[id number] ANSI-Medicaid [id number]-[id number] ANSI-Medicaid [id number] [id number] Self [id number] ANSI-Medicaid [id number] ANSI-Medicaid [id number] ANSI-Medicaid [id number] ANSI-Medicaid [id number] ANSI-Medicaid [id number] ANSI-Medicaid [id number] ANSI-Medicaid [id number] ANSI-Medicaid [id number] ANSI-Medicaid [id number] ANSI-Medicaid [id number] ANSI-Medicaid [id number] ANSI-Medicaid [id number] ANSI-Medicaid [id number]-[id number] ANSI-Medicaid [id number] ANSI-Medicaid [id number]-[id number]-[id number]-[id number] ANSI-Medicaid [id number] ANSI-Medicaid [id number] ANSI-Medicaid [id number] ANSI-Medicaid [id number] ANSI-Medicaid [id number] ANSI-Medicaid [id number] ANSI-Medicaid [id number] ANSI-Medicaid [id number] ANSI-Medicaid [id number] ANSI-Medicaid [id number] ANSI-Medicaid [id number] [facility] ([facility]) [id number] [facility] [id number] ANSI-Medicaid [id number] ANSI-Medicaid [id number] ANSI-Medicaid [id number] ANSI-Medicaid [id number]-[id number] ANSI-Medicaid [id number] ANSI-Medicaid [id number] ANSI-Medicaid [id number] ANSI-Medicaid [id number] [facility] Health Maintenance Organization (HMO) [id number] Self [id number] ANSI-Medicaid [id number] ANSI-Medicaid [id number] ANSI-Medicaid [id number] ANSI-Medicaid [id number] [facility] Health Maintenance Organization ([facility]) 1030 [id number] Self [id number] ANSI-Medicaid [id number]-[id number] ANSI-Medicaid [id number] ANSI-Medicaid [id number] ANSI-Medicaid [id number] ANSI-Medicaid [id number] ANSI-Medicaid [id number] ANS-Medicaid [id number] ANSI-Medicaid [id number] ANS-Medicaid [id number] ANS-Medicaid [id number] ANS-Medicaid [id number] ANS-Medicaid [id number] [facility] Health Maintenance Organization ([facility]) 1030 [id number] Self [id number] ANS-Medicaid [id number] ANS-Medicaid [id number] ANS-Medicaid [id number] [facility] Health Maintenance Organization ([facility]) [id number] [facility] [id number] ANSI-Medicaid [id number] ANSI-Medicaid [id number] ANSI-Medicaid [id number] ANSI-Medicaid [id number] ANSI-Medicaid [id number] ANSI-Medicaid [id number] [facility] [id number] ANSI-Medicaid [id number] ANSI-Medicaid [id number] ANSI-Medicaid [id number] ANSI-Medicaid [id number] ANSI-Medicaid [id number] ANSI-Medicaid [id number] ANSI-Medicaid [id number] ANSI-Medicaid [id number] ANSI-Medicaid [id number] [facility] MEDICAID PI PI ANSI-Medicaid [id number] ANSI-Medicaid [id number] ANSI-Medicaid [id number] ANSI-Medicaid [id number]-[id number] ANSI-Medicaid [id number] ANSI-Medicaid [id number] ANSI-Medicaid [id number] ANSI-Medicaid [id number] ANSI-Medicaid [id number] ANSI-Medicaid [id number] [facility] Health Maintenance Organization (HMO) [id number] Self [id number] ANSI-Medicaid [id number] ANSI-Medicaid [id number] ANSI-Medicaid [id number] ANSI-Medicaid [id number] ANSI-Medicaid [id number] ANSI-Medicaid [id number] ANSI-Medicaid [id number] ANSI-Medicaid [id number] ANSI-Medicaid [id number] ANSI-Medicaid [id number] ANSI-Medicaid [id number] ANSI-Medicaid [id number] ANSI-Medicaid [id number] ANSI-Medicaid [id number] ANSI-Medicaid [id number] ANSI-Medicaid [id number] ANSI-Medicaid [id number] ANSI-Medicaid [id number] ANSI-Medicaid [id number] [facility] Health Maintenance Organization (HMO) [id number] 2..[id number] Self [id number] [facility] Health Maintenance Organization (HMO) [id number]..[id number] Self [id number] [facility] [id number] S [id number] [facility] Health Maintenance Organization (HMO) [id number] 2..[id number] Self [id number] [facility] [id number] SP [id number] [facility] Health Maintenance Organization (HMO) [id number]..[id number] Self [id number] [facility] Health Maintenance Organization (HMO) [id number] Self [id number] [facility] MEDICAID MOE HMO [id number] S [id number] [employer] COMMUNITY PLAN MCDHMO [id number] SP [id number] UNHC COMMUNITY PLAN MCDHMO [id number] SP [id number] [facility] Health Maintenance Organization (HMO) [id number] Self [facility] Health Maintenance Organization (HMO) [id number] Self MEDICAID [id number] [facility] P UNAVAILABLE [id number] C UNAVAILABLE BLUE CROSS MCDER[place]OTT PLAN [id number] SP [id number] EXCELLUS BCBS P [id number] S [id number] EXCELLUS BCBS P [id number] S [id number] EXCELLUS BCBS P UNAVAILABLE [id number] [place] 3 [id number] N BLUE CROSS MCDER[place]OTT PLAN [id number] SP [id number] SELF PAY 2 UNAVAILABLE 1 UNAVAILA BLE ANSI-Medicaid [id number] UNHC COMMUNITY PLAN MCDHMO [id number] SP [id number] [facility] HEALTH MOE [id number] SP [id number] UNHC COMMUNITY PLAN XIX [id number] 18 [id number] [facility](MCAID) O [id number] S [id number] [facility] HEALTH MOE [id number] SP [id number] [facility] [id number] SP [id number] MEDICAID M [id number] S [id number] ANSI-Medicaid [id number] ANSI-Medicaid [id number] ANSI-Medicaid [id number] ANSI-Medicaid [id number] ANSI-Medicaid [id number] ANSI-Medicaid [id number] ANSI-Medicaid [id number] ANSI-Medicaid [id number] ANSI-Medicaid [id number] ANSI-Medicaid [id number] ANSI-Medicaid [id number] ANSI-Medicaid [id number] ANSI-Medicaid [id number] ANSI-Medicaid [id number] ANSI-Medicaid [id number] ANSI-Medicaid [id number] ANSI-Medicaid [id number] ANSI-Medicaid [id number] ANSI-Medicaid [id number] ANSI-Medicaid [id number] ANSI-Medicaid [id number] [facility] Health Maintenance Organization ([facility]) [id number] Self [id number] [facility] Health Maintenance Organization ([facility]) [id number] Self [id number] [facility]-Medicaid [id number] ANSI-Medicaid [id number] ANSI-Medicaid [id number] ANSI-Medicaid [id number] ANSI-Medicaid [id number] ANSI-Medicaid [id number] ANSI-Medicaid [id number] ANSI-Medicaid [id number] ANSI-Medicaid [id number] ANSI-Medicaid [id number] ANSI-Medicaid [id number] ANSI-Medicaid [id number] ANSI-Medicaid [id number] ANSI-Medicaid [id number] [facility] Health Maintenance Organization ([facility]) [id number] Self [id number] Problems, Conditions, and Diagnoses Code Display Name Description Problem Type Effective Dates Data Source(s) I10 Essential (primary) hypertension Essential (primary) h ypertension Diagnosis 05/31/2021 07:40:13 AM EDT [facility] E78.5 Hyperlipidemia, unspecified Hyperlipidemia, unspecifie d Diagnosis 05/31/2021 07:40:13 AM EDT [facility] I25.10 Atherosclerotic heart diseas e of [place] coronary artery without angina pectoris Atherosclerotic heart disease of [place] Diagnosis 05/31/2021 07:40:13 AM EDT [facility] G47.30 Sleep apnea, unspecified Sleep apnea, unspecified Diag nosis 04/19/2021 12:58:45 PM EDT [facility] I31.3 Pericardial effusion (noninflammatory) P ericardial effusion (noninflammatory) Diagnosis 04/19/2021 12:58:45 PM EDT [facility] F41.8 Other specified anxiety disorders Other specifie d anxiety disorders Diagnosis 04/19/2021 12:58:45 PM EDT [facility] K21.9 Gastro-esophageal reflux disease without esophagitis Gastro-esophageal reflux disease without Diagnosis 04/19/2021 12:58:[address] [facility] E03.9 Hypothyroidism, unspecified Hypothyroidism, unspecifie d Diagnosis 04/19/2021 12:58:45 PM EDT [facility] Z1152 ENCOUNTER FOR SCREENING FOR COVID-19 ENCOUNTER F OR SCREENING FOR COVID-19 Diagnosis 03/29/2021 01:56:00 PM EDT [facility] Z6842 Body mass index [BMI] 45.0-49.9, adult B tameka mass index [BMI] 45.0-49.9, adult Diagnosis 03/29/2021 01:56:00 PM EDT [facility] J9811 Atelectasis Atelectasis Diagnosis 03/29/2021 01:56:00 PM EDT [facility] J90 Pleural effusion, not elsewhere classifi ed Pleural effusion, not elsewhere classified Diagnosis 03/29/2021 01:56:00 PM EDT [facility] R600 Localized edema Localized edema Diagnosis 03/29/2021 01:5 6:00 PM EDT [facility] E039 Hypothyroidism, unspecified Hypothyroidism, unspecifie d Diagnosis 03/29/2021 01:56:00 PM EDT [facility] E7800 Pure hypercholesterolemia, unspecified P ure hypercholesterolemia, unspecified Diagnosis 03/29/2021 01:56:00 PM EDT [facility] E669 Obesity, unspecified Obesity, unspecified Diagnosis 03/29/2021 01:56:00 PM EDT [facility] I2510 Atherosclerotic heart diseas e of [place] coronary artery without angina pectoris Atherosclerotic heart disease of [place] coronary artery without angina pectoris Diagnosis 03/29/2021 01:56:00 PM EDT [facility] Z951 Presence of aortocoronary bypass graft P resence of aortocoronary bypass graft Diagnosis 03/29/2021 01:56:00 PM EDT [facility] R0789 Other chest pain Other chest pain Diagnosis 03/29/2021 01 :56:00 PM EDT [facility] Y[address] or not applicable Unspecified place or not applicable Diagnosis 03/22/2021 04:02:00 PM EDT [facility] T36590 Latex allergy status Latex allergy status Diagnosis 03/22/2021 04:02:00 PM EDT [facility] N60109 Personal history of nicotine dependence Personal history of nicotine dependence Diagnosis 03/22/2021 04:02:00 PM EDT [facility] P44191V Sprain of unspecified ligament of right ankle, initial encounter Sprain of unspecified ligament of right ankle, initial encounter Diagnosis 03/22/2021 04:02:00 PM EDT [facility] R73973 Pain in right ankle and joints of right foot Pain in right ankle and joints of right foot Diagnosis 03/22/2021 04:02:00 PM EDT [facility] L23.9 [id number] Allergic contact dermatitis, unspecified trigger Problem 06/28/2021 12:00:00 AM EDT eCW1 ([facility]) S93.401D Sprain of ankle Sprain of ankle Problem 04/18/2021 12:0 0:00 AM EDT [facility] ([facility] M21.6x1 Pronation Pronation Problem 02/26/2021 12:00:00 AM ED T [facility] ([facility] M72.2 Plantar fascial fibromatosis Plantar fascial fibromato sis Problem 02/26/2021 12:00:00 AM EDT [facility] ([facility] M47.817 [id number] Arthritis of lumbosacral spine Problem 02/12/2021 12:00:00 AM EDT eCW1 ([facility]) G89.29 Chronic pain Other chronic pain Problem 02/04/2021 12:0 0:00 AM EDT eCW1 ([facility]) L84 Callosity Callosity Problem 02/03/2021 12:00:00 AM ED T [facility] ([facility] K76.89 [id number] Liver cyst Problem 01/25/2021 12:00:00 AM ED T eCW1 ([facility]) M20.41 [id number] Other hammer toe(s) (acquired), right cherelle t Problem 01/08/2021 12:00:00 AM EDT eCW1 ([facility]) Z48.89 Convalescence after surgery Convalescence after surger y Problem 08/20/2020 12:00:00 AM EST - 12/20/2020 12:00:00 AM EDT [facility] ([facility] S31.819D [id number] Unspecified open wou nd of right buttock, subsequent encounter Problem 08/09/2020 12:00:00 AM EST eCW1 ([facility]) M46.1 [id number] Sacroiliitis Problem 08/08/2020 12:00:00 AM EST eCW1 ([facility]) H60.93 [id number] Inflammation of both ear canals Problem 08/07/2020 12:00:00 AM EST eCW1 ([facility]) S31.819A [id number] Wound of right buttock, initial encounter Problem 07/26/2020 12:00:00 AM EDT eCW1 ([facility]) Surgeries/Procedures Procedure Description Date Indications Data Source(s) OFFICE OUTPATIENT VISIT 10 MINUTES 08/05/2021 12:00:00 AM EDT [facility] OFFICE OUTPATIENT VISIT 15 MINUTES 07/19/2021 12:00:00 AM EDT [facility] ([facility] ) OFFICE OUTPATIENT VISIT 15 MINUTES 07/03/2021 12:00:00 AM EDT [facility] ([facility] ) OFFICE OUTPATIENT NEW 45 MINUTES 07/03/2021 12:00:00 A M EDT [facility] ([facility] ) OFFICE OUTPATIENT VISIT 10 MINUTES 07/02/2021 12:00:00 AM EDT [facility] ([facility] Medication: 0.9 % Sodium Chloride [place] 06/28/2021 12:00: 00 AM EDT eCW1 ([facility]) Injection, triamcinolone acetonide, not otherwise specified , 10 mg 06/28/2021 12:00:00 AM EDT [facility]CW[facility] OFFICE OUTPATIENT VISIT 25 MINUTES 06/21/2021 12:00:00 AM EDT [facility] ([facility] ) PHYSICIAN TELEPHONE EVALUATION 11-20 MIN 06/21/2021 12 :00:00 AM EDT [facility] ([facility] ) MRI UPPER EXTREMITY OTH THAN JT W/O CONTR MATRL 2020 12:00:00 AM EDT [facility] ([facility] ) MRI UPPER EXTREMITY OTH THAN JT W/O CONTR MATRL 2020 12:00:00 AM EDT [facility] ([facility] ) RADEX HAND MINIMUM 3 VIEWS 06/12/2021 12:00:00 AM EDT [facility] ([facility]) OFFICE OUTPATIENT VISIT 15 MINUTES 06/12/2021 12:00:00 AM EDT [facility] ([facility]) INJECTION 1 TENDON SHEATH/LIGAMENT APONEUROSIS 021 12:00:00 AM EDT [facility] ([facility] OFFICE OUTPATIENT VISIT 10 MINUTES 06/04/2021 12:00:00 AM EDT [facility] ([facility] OFFICE OUTPATIENT VISIT 15 MINUTES 05/23/2021 12:00:00 AM EDT [facility] ([facility] ) APPLICATION CAST ELBOW FINGER SHORT ARM 05/21/2021 12: 00:00 AM EDT [facility] ([facility]) RADEX HAND MINIMUM 3 VIEWS 05/21/2021 12:00:00 AM EDT [facility] ([facility]) OFFICE OUTPATIENT VISIT 15 MINUTES 05/21/2021 12:00:00 AM EDT [facility] ([facility]) OFFICE OUTPATIENT VISIT 25 MINUTES 05/21/2021 12:00:00 AM EDT [facility] ([facility]) OFFICE OUTPATIENT VISIT 15 MINUTES 05/02/2021 12:00:00 AM EDT [facility] ([facility] ECG ROUTINE ECG W/LEAST 12 LDS W/I&R <td>POCT AMB EKG</td><td>Routine</td><td>04/19/2021 1:42 PM EDT</td><td> Coronary artery disease involving [place] coronary artery of [place] heart without angina pectoris Benign essential hypertension</td><td> </td> 04/19/2021 01:42:00 PM EDT Benign essential hypertensionCoronary ar litzy disease involving [place] coronary artery of [place] heart without angina pectoris [facility] Benign essential hypertension Coronary artery disease involving [place] coronary artery of [place] heart without angina pectoris OFFICE OUTPATIENT VISIT 10 MINUTES 04/18/2021 12:00:00 AM EDT [facility] ([facility] RADEX FOOT COMPLETE MINIMUM 3 VIEWS 03/20/2021 12:00:0 0 AM EDT [facility] ([facility] OFFICE OUTPATIENT VISIT 10 MINUTES 03/20/2021 12:00:00 AM EDT [facility] ([facility] OFFICE OUTPATIENT VISIT 15 MINUTES 03/20/2021 12:00:00 AM EDT [facility] ([facility] ) OFFICE OUTPATIENT VISIT 10 MINUTES 03/12/2021 12:00:00 AM EDT [facility] ([facility] INJECTION 1 TENDON SHEATH/LIGAMENT APONEUROSIS 021 12:00:00 AM EDT [facility] OFFICE OUTPATIENT VISIT 10 MINUTES 02/26/2021 12:00:00 AM EDT [facility] ([facility] OFFICE OUTPATIENT VISIT 25 MINUTES 02/21/2021 12:00:00 AM EDT [facility] ([facility] ) Strapping Foot Or Ankle 02/12/2021 12:00:00 AM EDT [facility] ([facility] OFFICE OUTPATIENT VISIT 10 MINUTES 02/12/2021 12:00:00 AM EDT [facility] ([facility] OFFICE OUTPATIENT VISIT 10 MINUTES 02/01/2021 12:00:00 AM EDT [facility] OFFICE OUTPATIENT VISIT 25 MINUTES 12/26/2020 12:00:00 AM EDT [facility] ([facility], ) RADEX HAND MINIMUM 3 VIEWS 12/19/2020 12:00:00 AM EDT [facility] ([facility]) RADEX FOOT COMPLETE MINIMUM 3 VIEWS 12/07/2020 12:00:0 0 AM EST [facility] ([facility] OFFICE OUTPATIENT VISIT 15 MINUTES 12/07/2020 12:00:00 AM EST [facility] ([facility] APPLICATION SHORT LEG CAST BELOW KNEE-TOE 11/28/2020 1 2:00:00 AM EST [facility] ([facility]) RADEX HAND MINIMUM 3 VIEWS 11/28/2020 12:00:00 AM EST [facility] ([facility]) RADEX HAND MINIMUM 3 VIEWS 11/14/2020 12:00:00 AM EST [facility] ([facility]) OFFICE OUTPATIENT VISIT 10 MINUTES 11/06/2020 12:00:00 AM EST [facility] OFFICE OUTPATIENT VISIT 25 MINUTES 11/02/2020 12:00:00 AM EST [facility] ([facility]) CLTX METACARPAL FX W/O MANIPULATION EACH BONE 10/29/19 12:00:00 AM EST [facility] ([facility]) OFFICE OUTPATIENT VISIT 15 MINUTES 10/29/2020 12:00:00 AM EST [facility] ([facility]) ARTHROCENTESIS ASPIR&/INJECTION SMALL JT/BURSA 021 12:00:00 AM EST [facility] ([facility]) OFFICE OUTPATIENT VISIT 15 MINUTES 10/12/2020 12:00:00 AM EST [facility] ([facility]) ARTHROCENTESIS ASPIR&/INJECTION MAJOR JT/BURSA 021 12:00:00 AM EST [facility] ([facility]) OFFICE OUTPATIENT VISIT 15 MINUTES 10/11/2020 12:00:00 AM EST [facility] ([facility] ) FINE NEEDLE ASPIRATION W/O IMAGING GUIDANCE 07/26/2020 12:00:00 AM EDT eCW1 ([facility]) RADEX FOOT COMPLETE MINIMUM 3 VIEWS 07/23/2020 12:00:0 0 AM EDT [facility] ([facility] Remove Support Implant Deep 07/18/2020 12:00:00 AM EDT [facility] ([facility] Hammertoe Proc One Toe 07/18/2020 12:00:00 AM EDT [facility] ([facility] Ostectomy/Exostectomy/Condylectomy Metatarsal Head 07/18/2020 12:00:00 AM EDT [facility] ([facility] Results ID Date Data Source [id number] 04/02/2021 10:21:00 [place] [address] PHONE: [phone] FAX: [phone] Name .................. : JUVE Hawthorne Acct Number.................. : [id number] ROOM. ................. : 103-1 MR Number ................... : [id number] Stay type ............. : O/P Discharge Date......... ... : Admit Date ......... : 03/29/21 Admit Phys .................... : COOKIE Date of ....... : 1965 Family Phys ................... : HAVEN RIVERA Phone .................. : [phone] Age ................................ : 55 Film# .................. .:[id number] Sex ................................. : M Unsigned transcriptions are preliminary reports and do not represent a medical or legal document CHEST PORTABLE [id number] COMPLETE:03/29/21 16:55 KBO [id number] Reason(s): Chest Pain PORTABLE CHEST X-RAY: INDICATION: [...] By Ollie Stewart M.D. , 04/02/21 10:21, [facility] Transcribe Initials: DZ , Transcribe Date: 03/30/21 01:15, Dictation Date: Copy for: EMERGENCY DEPT via modem Copy for: 710 MED REC DISCHARGED Page 1 of 1 Name Value Range Interpretation Code Description Data Toma rce(s) Supporting Document(s) ID Date Data Source [id number] 04/02/2021 10:20:00 AM EDT [facility] [address] [place] [address] PHONE: [phone] FAX: [phone] Name .................. : JUVE Hawthorne Acct Number.................. : [id number] ROOM. ................. : 103-1 MR Number ................... : [id number] Stay type ............. : O/P Discharge Date......... ... : Admit Date ......... : 03/29/21 Admit Phys .................... : JUANITA-ALAN Date of ....... : 1965 Family Phys ................... : OROURKE NICOLE Phone .................. : [phone] Age ................................ : 55 Film# .................. .:[id number] Sex ................................. : M Unsigned transcriptions are preliminary reports and do not represent a medical or legal document [place] [id number] COMPLETE:03/29/21 14:34 KNB 99421 Reason(s): Pain, Limb VENOUS DOPPLER ULTRASOUND OF [...] By Ollie Stewart M.D. , 04/02/21 10:20, [facility] Transcribe Initials: DRE , Transcribe Date: 03/30/21 01:04, Dictation Date: Copy for: EMERGENCY DEPT via modem Copy for: 710 MED REC DISCHARGED Page 1 of 1 Name Value Range Interpretation Code Description Data Toma rce(s) Supporting Document(s) ID Date Data Source [id number] 04/02/2021 10:19:00 AM EDT [facility] [address] [place] [address] PHONE: [phone] FAX: [phone] Name .................. : JUVE Hawthorne Acct Number.................. : [id number] ROOM. ................. : 103-1 MR Number ................... : [id number] Stay type ............. : O/P Discharge Date......... ... : Admit Date ......... : 03/29/21 Admit Phys .................... : JUANITA-ALAN Date of ....... : 1965 Family Phys ................... : BEACON NICOLE Phone .................. : [phone] Age ................................ : 55 Film# .................. .:[id number] Sex ................................. : M Unsigned transcriptions are preliminary reports and do not represent a medical or legal document CT CTA CHEST NON- CORONARY W C [id number] COMPLETE:03/29/21 15:20 [id number] Reason(s): right leg swelling shortness of breath [...] CT dose: 1222.2 mGycm [address] [place] [address] [address] [place] [address] PHONE: [phone] FAX: [phone] Name .................. : JUVE Hawthorne Acct Number.................. : [id number] ROOM. ................. : 103-1 MR Number ................... : [id number] Stay type ............. : O/P Discharge Date......... ... : Admit Date ......... : 03/29/21 Admit Phys .......... .......... : COOKIE Date of ....... : 1965 Family Phys ................... : HAVEN RIVERA Phone .................. : [phone] Age ................................ : 55 Film# .................. .:[id number] Sex ................................. : M Unsigned transcriptions are preliminary reports and do not represent a medical or legal document CT CTA CHEST NON- CORONARY W C [id number] COMPLETE:03/29/21 15:20 23712 Reason(s): right leg swelling shortness of breath [...] rce(s) Supporting Document(s) ID Date Data Source [id number] 04/01/2021 06:43:00 [place] [address] RESPIRATORY CARE REPORT ==== ---------NAME------- NUMBER SEX AGE ADMIT DISC. XRAY# F/C TYPEPRENTICE DEANNA Hawthorne [id number] 55 03/29/21 03/30/21574468 X6B O/P DATE OF : 1965 M/R# [id number] #: [phone] 103-1 LOCATION: EMERGENCY DEPT EKG 16915 COMP LETE:03/30/21 13:28 [place] [id number] PHYSICIAN: COOKIE Name Value Range Interpretation Code Description Data Toma rce(s) Supporting Document(s) ID Date Data Source [id number] 04/01/2021 06:45:00 AM EDT [facility] Name Value Range Interpretation Code Description Data Toma rce(s) Supporting Document(s) Creatine kinase.MB [Mass/volume] in Serum or Plasma 4.1 ng/mL 0.0-10 .4 [facility] ID Date Data Source [id number] 03/30/2021 07:38:00 AM EDT [facility] Name Value Range Interpretation Code Description Data Toma rce(s) Supporting Document(s) Magnesium [Mass/volume] in Serum or Plasma 2.2 MG/DL 1.7 - 2.2 [facility] ID Date Data Source [id number] 03/30/2021 07:38:00 AM EDT [facility] Name Value Range Interpretation Code Description Data Toma rce(s) Supporting Document(s) CBC W/AUTOMATED DIFF [facility] COMPLETE BLOOD COUNT Leukocytes [#/volume] in Blood by Automated count 6.5 10^3/uL 4.2 - 1 1.0 [facility] Erythrocytes [#/volume] in Blood by Automated count 4.64 10^6/uL 4. 50 - 6.30 [facility] Hemoglobin [Mass/volume] in Blood 13.3 g/dL 14.0 - 16.0 L [facility] Hematocrit [Volume Fraction] of Blood by Automated count 41.7 % 4 1.0 - 51.0 [facility] Erythrocyte mean corpuscular volume [Entitic volume] by Auto mated count 89.9 fL 80.0 - 94.0 [facility] Erythrocyte mean corpuscular hemoglobin [Entitic mass] by Automated count 28.7 pg 27.0 - 34.0 [facility] Erythrocyte mean corpuscular hemoglobin concentration [Mass/volume] by Automated count 31.9 g/dL 31.0 - 36.0 [facility] Erythrocyte distribution width [Ratio] by Automated count 15.8 % 11.5 - 14.8 H [facility] Platelets [#/volume] in Blood by Automated count 257 10^3/uL 150 - 45 0 [facility] Platelet mean volume [Entitic volume] in Blood by Automated count 9.8 fL 7.4 - 10.4 [facility] Neutrophils/100 leukocytes in Blood by Automated count 63.7 % 37. 0 - 80.0 [facility] Lymphocytes/100 leukocytes in Blood by Manual count 20.6 % 25.0 - 40.0 L [facility] Monocytes/100 leukocytes in Blood by Automated count 13.6 % 3.0 - 8.0 H [facility] Eosinophils/100 leukocytes in Blood by Automated count 0.8 % 0.0 - 7.0 [facility] Basophils/100 leukocytes in Blood by Automated count 0.5 % 0.0 - 2.0 [facility] %IG 0.8 % 0.0 - 0.0 [facility] %NRBC 0.0 % 0.0 - 0.0 [facility] al Neutrophils [#/volume] in Blood by Automated count 4.11 10^3/uL 2.00 - 6.90 [facility] Lymphocytes [#/volume] in Blood by Automated count 1.33 10^3/uL 0.60 - 3.40 [facility] Monocytes [#/volume] in Blood by Automated count 0.88 10^3/uL 0.00 - 0.90 [facility] Eosinophils [#/volume] in Blood by Automated count 0.05 10^3/uL 0.00 - 0.70 [facility] Basophils [#/volume] in Blood by Automated count 0.03 10^3/uL 0.00 - 0.20 [facility] #IG 0.05 10^3/uL 0.00 - 0.10 [facility] ospital #NRBC 0.00 10^3/uL 0.00 - 0.00 [facility] ospital MANUAL DIFF NOT INDICATED [facility] RBC MORPH NOT INDICATED [facility] spital ID Date Data Source [id number] 03/30/2021 07:38:00 AM EDT [facility] Name Value Range Interpretation Code Description Data Toma rce(s) Supporting Document(s) BASIC METABOLIC PANEL [facility] BASIC METABOLIC PANEL Sodium [Moles/volume] in Serum or Plasma 142 mEq/L 134 - 153 [facility] Potassium [Moles/volume] in Serum or Plasma 4.0 mEq/L 3.6 - 5.0 [facility] Chloride [Moles/volume] in Serum or Plasma 107 mEq/L 98 - 107 [facility] Carbon dioxide, total [Moles/volume] in Serum or Plasma 25 MEQ/L 22 - 30 [facility] Glucose [Mass/volume] in Serum or Plasma 98 MG/DL 70 - 99 [facility] BUN 18 MG/DL 7 - 21 [facility] Creatinine [Mass/volume] in Serum or Plasma 1.1 MG/DL 0.7 - 1.5 [facility] BUN/CREAT 16 8 - 27 [facility] Calcium [Mass/volume] in Serum or Plasma 8.8 MG/DL 8.4 - 10.2 [facility] Anion gap 3 in Serum or Plasma 10.0 mmol/L 8.0 - 16.0 [facility] AGE 55 yrs [facility] al AFR AMER GFR >60 mL/min [facility] spital NON-AA GFR >60 mL/min [facility] ital Male GFR Inter prentation 20-49 [...] >32 mL/min Normal ID Date Data Source [id number] 03/29/2021 01:56:00 PM EDT [facility] 1 OrderSheet [facility] Emergency Department [address] [place] [address] Phone #: ext- [phone] 03/29/2021 13:53 Patient: [...] inCongregate CareSetting) (NotEmployed inHealthcare Setting) 2 OrderSheet [facility] Emergency Department [address] [place] [address] Phone #: ext- [phone] 03/29/2021 13:53 Patient: [...] 14:00 03/29/2021 14:08 DorisMonitor Kristan Swain RN ;Spooler Operator Automatic 14:00 03/29/2021 14:08 Estefania(continuous) Kristan Swain RN ;EKG 14:00 03/29/2021 14:08 Kristan Li RN ;NPO 14:00 03/29/2021 14:08 Kristan Li RN ;Obtain Old EKG 14:00 03/29/2021 14:08 Estefania 3 OrderSheet [facility] Emergency Department [address] [place] [address] Phone #: ext- [phone] 03/29/2021 13:53 Patient: DEANNA AN Sex: M : 1965 Age: 55y Kristan Swian RN ;Obtain Old Records 14:00 03/29/2021 14:08 [...] rce(s) Supporting Document(s) ID Date Data Source [id number] 03/29/2021 01:56:00 PM EDT [facility] 1 Medication Reconciliation Report [facility] Emergency Department [address] [place] [address] Phone #: ext- [phone] 03/29/2021 13:53 Patient: [...] administered: 14:15 03/29/2021 2 Medication Reconciliation Report [facility] Emergency Department [address] [place] [address] Phone #: ext- [phone] 03/29/2021 13:53 Patient: DEANNA AN Sex: M : 1965 Age: 55yThe following Medications were prescribed to the patient:None. Name Value Range Interpretation Code Description Data Toma rce(s) Supporting Document(s) ID Date Data Source [id number] 03/29/2021 01:56:00 PM EDT [facility] 1 Medication Administration Record [facility] Emergency Department [address] [place] [address] Phone #: [phone]- [phone] 03/29/2021 13:53 Patient: DEANNA AN Sex: M : 1965 Age: 55yWeight: 140.7 kgHeight/Length: 68 inBMI: 47.2ALLERGIES: adhesive talpe, Codeine Phosphate, Latex Date/Time Medication Administered Medication OrderedGiven TORADOL [IVP] (KETOROLAC Toradol IVP 30 mg (NOW x1)14:15 03/29/2021 TROMETHAMINE)Estefania Guerin RN Dose: 30 mg IVP Site: #1 right Name Value Range Interpretation Code Description Data Toma rce(s) Supporting Document(s) ID Date Data Source [id number] 03/29/2021 01:56:00 PM EDT [facility] 1 General Instructions [facility] Emergency Department [address] [place] [address] Phone #: ext- [phone] 03/29/2021 13:53 Patient: DEANNA AN Marine Sex: M : 1965 Age: 55yPrecordial chest pain characterized as "pressure".Acute coronary syndrome: stable angina.Right pedal edema.(Electronically signed by Kristan Swain 03/29/2021 23:36) Name Value Range Interpretation Code Description Data Toma rce(s) Supporting Document(s) ID Date Data Source [id number] 03/29/2021 01:56:00 PM EDT [facility] 1 Clinical Report - Nurses [facility] Emergency Department [address] [place] [address] Phone #: ext- [phone] 03/29/2021 13:53 Patient: DEANNA AN Marine Sex: M : 1965 Age: 55yTRIAGEArrived by EMS. Historian: patient.Triage time: 13:52 03/29/2021. Acuity: LEVEL 3.Chief Complaint: CHEST PAIN.13:52 03/29/21. Alert. No acute distress.Onset. (10 am). 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 (Seen here for right foot ankle pain, splinted for possiblefracture to follow up with Ortho. Seen at [facility] x 2 left AMA due to [...] mcg, daily. 2 Clinical Report - Nurses [facility] Emergency De partment [address] [place] [address] Phone #: ext- [phone] 03/29/2021 13:53 Patient: DEANNA AN [facility]#: [id number] Sex: M : 1965 Age: 55yMetoprolol Tartrate [...] - duplicateHeart bypass. --16:47 03/27/20 Estefania Guerin RN.Aymzsln59:52 03/29/21.PAST MEDICAL HX: Immunizations: up-to-date.SOCIAL HX: Former [...] had thoughts 3 Clinical Report - Nurses [facility] Emergency Department [address] [place] [address] Phone #: ext- [phone] 03/29/2021 13:53 ---- [...] mL saline. --13:55 03/29/21 Estefania Guerin RN.PHYSICAL RPLZVNMXTA73:00 03/29/21. Ambulatory to room.GENERAL / NEURO / [...] 03/29/21 Estefania Guerin RN.NURSING PROGRESS NOTES13:52 03/29/21. color television console monitor, NIBP monitor and pulse oximeter placed on patient; cafeteria monitor-Lead II; monitor alarms on. Patient gowned. Head of bed elevated. Two patient identifiers checked.Call light placed in reach. Side rails up x 2. Bed placed in lowest position. Brakes of bed on. Patientready for evaluation- ED physician notified. --14:05 03/29/21 Estefania Guerin RN 4 Clinical Report - Nurses [facility] Emergency Department [address] [place] [address] Phone #: ext- [phone] 03/29/2021 13:53 [id number] Sex: M : 1965 Age: 55y13:55 03/29/21. EKG time: (13:55 03/29/2021). EKG was ordered, performed by a nurse and shown [facility] ED physician. --14:05 03/29/21 Estefania Guerin RN14:08 [...] Guerin RN 5 Clinical Report - Nurses [facility] Emergency Dep artment [address] [place] [address] Phone #: ext- [phone] 03/29/2021 13:53 Patient: [...] Guerin RN 16:03 03/29/21. Patient transported to [place] by wheelchair with mask and professor of radiology. --16:08 03/29/21 Estefania Guerin RN 16:15 03/29/21. Patient returned from CT by wheelchair with mask and professor of radiology. --17:07 03/29/21 Estefania Guerin RN 17:00 03/29/21. [...] RN 17:52 03/29/21. ( Hospitalist, Jerrica Poe AUTISM TEACHER in to examine patient for admission). --18:03 [...] medications given 6 Clinical Report - Nurses [facility] Emergency Department [address] [place] [address] Phone #: ext- [phone] 03/29/2021 13:53 Patient: [...] rce(s) Supporting Document(s) ID Date Data Source [id number] 03/29/2021 01:56:00 PM EDT [facility] 1 Clinical Report - Physicians/Mid Levels [facility] Emergency Department [address] [place] [address] Phone #: ext- [phone] 03/29/2021 13:53 Patient: [...] right lower extremity . he went to [facility] yesterday but let without being [...] Medications: 2 Clinical Report - Physicians/Mid Levels [facility] Emergency Department [address] [place] [address] Phone #: ext- [phone] 03/29/2021 13:53 Patient: DEANNA AN Sex: M [...] Normal 3 Clinical Report - Physicians/Mid Levels [facility] Emergency Department [address] [place] [address] Phone #: ext- [phone] 03/29/2021 13:53 Patient: DEANNA AN Sex: M [...] Pain, LimbTRANSPORTATION: S IV? O2? Oxygen?(No) Room: [facility] Diff: (LEONARDA: 03/29/2021 14:10) ( MigRcvd 03/29/2021 14:54) Final results Test Result Flag [...] 8) 4 Clinical Report - Physicians/Mid Levels [facility] Emergency Department [address] [place] [address] Phone #: ext- [phone] 03/29/2021 13:53 Patient: [...] Male GFR Interprentation 20-49 yrs >60 mL/min Bsgzfn42-77 yrs >56 mL/min Normal 60-69 yrs >49 mL/min Normal 70-79yrs>42 mL/min Normal 80 and above >35 mL/min Normal Female GFRInterpretation 20-39 yrs >60 mL/min Normal 40-49 yrs >58 mL/minNormal 50-59 yrs >51 mL/min Normal 60-69 yrs >45 mL/min Huupih63-39 yrs >39 mL/min Normal 80 and above >32 mL/min NormalLipase: (LEONARDA: 03/29/2021 14:10) ( [facility] 03/29/2021 14:48) Final results Test Result Flag Units (Reference) LIPASE 16 U/L (13 - 60)Troponin-T: (LEONARDA: 03/29/2021 14:10) ( [facility] 03/29/2021 14:38) Final results Test Result Flag Units (Reference) TROPONIN T <0.01 NG/ML (0.00 - 0.10) TROPONIN T0.1 ng/ml Recommended as the clinical threshold value forTroponin T.D-Dimer: (LEONARDA: 03/29/2021 14:10) ( [facility] 03/29/2021 14:36) Final results Test Result Flag Units (Reference) D-DIMER QUANT 1.41 H ug/mL (0.27 - 0.50) 5 Clinical Report - Physicians/Mid Levels [facility] Emergency Department [address] [place] [address] Phone #: ext- [phone] 03/29/2021 13:53 -- Patient: DEANNA AN Sex: M : 1965 Age: 55y PT/INR: (LEONARDA: 03/29/2021 14:10) ( [facility] 03/29/2021 14:36) Final results Test Result Flag Units (Reference) PROTIME 13.2 SECONDS (11.0 - 15.5) INR 0.99 (0.93 - 1.23) \\BLDo\\INR INTERPRETATION\\BLDx\\ Therapeutic range for Coumadin and related oral anticoagulants. -International Normalized Ratio (INR): 2.0 - 3.0 for Venous Thrombosis, Pulmonary Embolus, Tissue heart valves, Acute IN, Atrial Fibrillation, Valvular heart disease and recurrent [...] 03/29/2021 23:36) 6Clinical Report - Physicians/Mid Levels [facility] Emergency Department [address] [place] [address] Phone #: ext- [phone] 03/29/2021 13:53 Patient: DEANNA AN Sex: M : 1965 Age: 55y Name Value Range Interpretation Code Description Data Toma rce(s) Supporting Document(s) ID Date Data Source [id number] 03/29/2021 07:08:00 PM EDT [facility] Name Value Range Interpretation Code Description Data Toma rce(s) Supporting Document(s) TROPONIN T <0.01 NG/ML 0.00 - 0.10 [facility] ospital TROPONIN T0.1 ng/ml Recommended as the c linical threshold value forTroponin T. ID Date Data Source [id number] 03/29/2021 05:50:00 PM EDT [facility] Name Value Range Interpretation Code Description Data Toma rce(s) Supporting Document(s) COVID19 Case rprt NOT DETECTED [facility] This lab was ordered by [facility] and [facility] ID Date Data Source [id number] 03/29/2021 06:37:00 PM EDT [facility] NOT DETECTEDNOT DETECTED{ PROC EDURAL CONTROL VALID KIT LOT # _[id number] 03/29/21.DW . KIT EXP DATE _[id number] 03/29/21.DW . NORMAL RANGE IS NOT DETECTEDNEGATIVE [...] rce(s) Supporting Document(s) ID Date Data Source [id number] 03/29/2021 08:17:00 PM EDT [facility] Name Value Range Interpretation Code Description Data Toma rce(s) Supporting Document(s) [facility]EL [facility] LIPID PANEL Cholesterol [Mass/volume] in Serum or Plasma 146 MG/DL 131 - 200 [facility] Deprecated Triglyceride [Mass/volume] in Serum or Plasma 114 MG/DL 3 5 - 160 [facility] HDL 49 MG/DL 29 - 86 [facility] Cholesterol in LDL [Mass/volume] in Serum or Plasma by Direc t assay 85 mg/dL 65 - 175 [facility] Cholesterol.total/Cholesterol in HDL [Mass Ratio] in Serum o r Plasma 3.0 3.4 - 4.9 L [facility] LDL/HDL 1.73 1.00 - 3.55 [facility] ital CVE RISK CHOL/HDL LDL/HDLMEN: 1/2 AVERAGE 3.43 1.00 AVERAGE 4.97 3.55 2X AVERAGE 9.55 6.25 3X AVERAGE 23.99 7.99WOMEN: 1/2 AVERAGE 3.27 1.47 AVERAGE 4.44 3.22 2X AVERAGE 7.05 5.03 3X AVERAGE 11.04 6.14 ID Date Data Source [id number] 03/29/2021 08:17:00 PM EDT [facility] Name Value Range Interpretation Code Description Data Toma rce(s) Supporting Document(s) Hemoglobin A1c/Hemoglobin.total in Blood 6.2 % 4.4 - 6.1 H [facility] {A1]{HB] ID Date Data Source [id number] 03/29/2021 05:43:00 PM EDT [facility] Name Value Range Interpretation Code Description Data Toma rce(s) Supporting Document(s) BNP 162 PG/ML 0 - 125 H [facility] al ID Date Data Source [id number] 03/29/2021 02:53:00 PM EDT [facility] Name Value Range Interpretation Code Description Data Toma rce(s) Supporting Document(s) CBC W/AUTOMATED DIFF [facility] COMPLETE BLOOD COUNT Leukocytes [#/volume] in Blood by Automated count 10.2 10^3/uL 4.2 - 11.0 [facility] Erythrocytes [#/volume] in Blood by Automated count 4.58 10^6/uL 4. 50 - 6.30 [facility] Hemoglobin [Mass/volume] in Blood 13.4 g/dL 14.0 - 16.0 L [facility] Hematocrit [Volume Fraction] of Blood by Automated count 41.5 % 4 1.0 - 51.0 [facility] Erythrocyte mean corpuscular volume [Entitic volume] by Auto mated count 90.6 fL 80.0 - 94.0 [facility] Erythrocyte mean corpuscular hemoglobin [Entitic mass] by Automated count 29.3 pg 27.0 - 34.0 [facility] Erythrocyte mean corpuscular hemoglobin concentration [Mass/volume] by Automated count 32.3 g/dL 31.0 - 36.0 [facility] Erythrocyte distribution width [Ratio] by Automated count 15.9 % 11.5 - 14.8 H [facility] Platelets [#/volume] in Blood by Automated count 255 10^3/uL 150 - 45 0 [facility] Platelet mean volume [Entitic volume] in Blood by Automated count 9.6 fL 7.4 - 10.4 [facility] Neutrophils/100 leukocytes in Blood by Automated count 74.6 % 37. 0 - 80.0 [facility] Lymphocytes/100 leukocytes in Blood by Manual count 12.7 % 25.0 - 40.0 L [facility] Monocytes/100 leukocytes in Blood by Automated count 11.1 % 3.0 - 8.0 H [facility] Eosinophils/100 leukocytes in Blood by Automated count 0.2 % 0.0 - 7.0 [facility] Basophils/100 leukocytes in Blood by Automated count 0.5 % 0.0 - 2.0 [facility] %IG 0.9 % 0.0 - 0.0 H [facility] al %NRBC 0.0 % 0.0 - 0.0 [facility] al Neutrophils [#/volume] in Blood by Automated count 7.62 10^3/uL 2.00 - 6.90 H [facility] Lymphocytes [#/volume] in Blood by Automated count 1.30 10^3/uL 0.60 - 3.40 [facility] Monocytes [#/volume] in Blood by Automated count 1.13 10^3/uL 0.00 - 0.90 H [facility] Eosinophils [#/volume] in Blood by Automated count 0.02 10^3/uL 0.00 - 0.70 [facility] Basophils [#/volume] in Blood by Automated count 0.05 10^3/uL 0.00 - 0.20 [facility] #IG 0.09 10^3/uL 0.00 - 0.10 [facility] H ospital #NRBC 0.00 10^3/uL 0.00 - 0.00 [facility] H ospital MANUAL DIFF SEE BELOW [facility] ital Segmented neutrophils/100 leukocytes in Blood by Manual count 75 % 37 - 80 [facility] BAND 2 % 0 - 5 [facility] al %LYMPH 11 % 25 - 40 L [facility] Hospit al %MONO 12 % 3 - 8 H [facility] al Nucleated erythrocytes/100 erythrocytes in Blood by Manual count 1 % [facility] RBC MORPH SEE BELOW [facility] Hospit al { SICKLE CELL (NORMAL: NONE SEEN ) Platelet adequacy [Presence] in Blood by Light microscopy NORMAL NORMAL: NORMAL [facility] COMMENT: _PLATELET_CLUMPS_SEEN 03/29/21.1453.JSK. ID Date Data Source [id number] 03/29/2021 02:50:00 PM EDT [facility] Name Value Range Interpretation Code Description Data Toma rce(s) Supporting Document(s) COMPREHENSIVE METABOLIC PANEL [facility] COMPREHENSIVE METABOLIC PANEL Sodium [Moles/volume] in Serum or Plasma 140 mEq/L 134 - 153 [facility] Potassium [Moles/volume] in Serum or Plasma 4.2 mEq/L 3.6 - 5.0 [facility] Chloride [Moles/volume] in Serum or Plasma 104 mEq/L 98 - 107 [facility] Carbon dioxide, total [Moles/volume] in Serum or Plasma 26 MEQ/L 22 - 30 [facility] Glucose [Mass/volume] in Serum or Plasma 104 MG/DL 70 - 99 H [facility] BUN 17 MG/DL 7 - 21 [facility] Creatinine [Mass/volume] in Serum or Plasma 1.1 MG/DL 0.7 - 1.5 [facility] BUN/CREAT 15 8 - 27 [facility] al Protein [Mass/volume] in Serum or Plasma 6.6 G/DL 6.3 - 8.2 [facility] Albumin [Mass/volume] in Serum or Plasma 4.3 G/DL 3.9 - 5.0 [facility] Globulin [Mass/volume] in Serum by calculation 2.3 GM/DL 2.4 - 3.2 L [facility] A/G RATIO 1.9 0.8 - 2.0 [facility] Calcium [Mass/volume] in Serum or Plasma 9.6 MG/DL 8.4 - 10.2 [facility] Bilirubin.total [Mass/volume] in Serum or Plasma <0.7 MG/DL 0.2 - 1.3 [facility] Alkaline phosphatase [Enzymatic activity/volume] in Serum or Plasma 125 U/L 38 - 126 [facility] Aspartate aminotransferase [Enzymatic activity/volume] in Serum or Plasma 21 U/L 5 - 40 [facility] Alanine aminotransferase [Enzymatic activity/volume] in Seru m or Plasma 19 U/L 7 - 56 [facility] Anion gap 3 in Serum or Plasma 10.0 mmol/L 8.0 - 16.0 [facility] AGE 55 yrs [facility] al NON-AA GFR >60 mL/min [facility] ital AFR AMER GFR >60 mL/min [facility] Ho spital Male GFR In terprentation [...] >32 mL/min Normal ID Date Data Source [id number] 03/29/2021 02:48:00 PM EDT [facility] Name Value Range Interpretation Code Description Data Toma rce(s) Supporting Document(s) Lipase [Enzymatic activity/volume] in Serum or Plasma 16 U/L 13 - 60 [facility] ID Date Data Source [id number] 03/29/2021 02:38:00 PM EDT [facility] Name Value Range Interpretation Code Description Data Toma rce(s) Supporting Document(s) TROPONIN T <0.01 NG/ML 0.00 - 0.10 [facility] ospital TROPONIN T0.1 ng/ml Recommended as the c linical threshold value forTroponin T. ID Date Data Source [id number] 03/29/2021 02:36:00 PM EDT [facility] Name Value Range Interpretation Code Description Data Toma rce(s) Supporting Document(s) Fibrin D-dimer FEU [Mass/volume] in Platelet poor plasma 1.41 ug /mL 0.27 - 0.50 H [facility] ID Date Data Source [id number] 03/29/2021 02:36:00 PM EDT [facility] Name Value Range Interpretation Code Description Data Toma rce(s) Supporting Document(s) Prothrombin time (PT) 13.2 SECONDS 11.0 - 15.5 [facility] INR in Platelet poor plasma by Coagulation assay 0.99 0.93 - 1. 23 [facility] \\BLDo\\INR INTERPRETATION\\BLDx\\ Therapeutic range for Coumadin and related oral anticoagulants. - International Normalized Ratio (INR): 2.0 - 3.0 for Venous Thrombosis, Pulmonary Embolus, Tissue heart valves, Acute IN, Atrial Fibrillation, Valvular heart disease and recurrent Systemic Embolism. -International Normalized Ratio (INR): 2.5 - 3.5 for Mechanical Prosthetic valve. ID Date Data Source [id number] 03/26/2021 10:18:00 AM EDT [facility] [place] [address] PHONE: [phone] FAX: [phone] Name .................. : JUVE Hawthorne Acct Number.................. : [id number] ROOM. ................. : [facility] MR Number ................... : [id number] Stay type ............. : E/R Discharge Date......... ... : 03/22/21 Admit Date ......... : 03/22/21 Admit Phys .................... : COONEYNORM Date of ....... : 1965 Family Phys ................... : OROURKE NICOLE Phone .................. : [phone] Age ................................ : 55 Film# .................. .:[id number] Sex ................................. : M Unsigned transcriptions are preliminary reports and do not represent a medical or legal document ANKLE AP & LATERAL RT [id number] COMPLETE:03/22/21 17:38 D [id number] Reason(s): Pain RIGHT ANKLE X-RAY: INDICATION: Pain. [...] rce(s) Supporting Document(s) ID Date Data Source [id number] 03/26/2021 10:18:00 AM EDT [facility] [address] [place] [address] PHONE: [phone] FAX: [phone] Name .................. : JUVE Hawthorne Acct Number.................. : [id number] ROOM. ................. : [address] Number ................... : [id number] Stay type ............. : E/R Discharge Date......... ... : 03/22/21 Admit Date ......... : 03/22/21 Admit Phys .................... : COONEYNORM Date of ....... : 1965 Family Phys ................... : OROURKE NICOLE Phone .................. : [phone] Age ................................ : 55 Film# .................. .:[id number] Sex ................................. : M Unsigned transcriptions are preliminary reports and do not represent a medical or legal document FOOT COMPLETE-3 OR MORE VW RT [id number] COMPLETE:03/22/21 17:38 JLD [id number] Reason(s): Pain RIGHT FOOT X-RAY: INDICATION: Pain. [...] Dictation Date: Copy for: EMERGENCY DEPT via [facility] Copy for: 710 MED REC DISCHARGED Page 1 of 1 Name Value Range Interpretation Code Description Data Toma rce(s) Supporting Document(s) ID Date Data Source [id number] 03/22/2021 04:02:00 PM EDT [facility] 1 OrderSheet [facility] Emergency Department [address] [place] [address] Phone #: ext- [phone] 03/22/2021 16:01 Patient: [...] rce(s) Supporting Document(s) ID Date Data Source [id number] 03/22/2021 04:02:00 PM EDT [facility] 1 Medication Reconciliation Report [facility] Emergency Department [address] [place] [address] Phone #: ext- [phone] 03/22/2021 16:01 Patient: [...] Home Medication information: 2 Medication Reconciliation Report [facility] Emergency Department [address] [place] [address] Phone #: ext- [phone] 03/22/2021 16:01 Patient: DEANNA AN Sex: M : 1965 Age: 55ypatientThe following Medications were given to the patient in the Emergency Department:None.The following Medications were prescribed to the patient:None. Name Value Range Interpretation Code Description Data Toma rce(s) Supporting Document(s) ID Date Data Source [id number] 03/22/2021 04:02:00 PM EDT [facility] 1 Medication Administration Record [facility] Emergency Department [address] [place] [address] Phone #: ext [phone] 03/22/2021 16:01 Patient: DEANNA AN Sex: M : 1965 Age: 55yWeight: 140.6 kgHeight/Length: 68 inBMI: 47.1ALLERGIES: adhesive talpe, Codeine Phosphate, LatexDate/Time Medication Administered Medication Ordered Name Value Range Interpretation Code Description Data Toma rce(s) Supporting Document(s) ID Date Data Source [id number] 03/22/2021 04:02:00 PM EDT [facility] 1 General Instructions [facility] Emergency Department [address] [place] [address] Phone #: ext- [phone] 03/22/2021 16:01 Patient: DEANNA AN [facility]#: [id number] Sex: M : 1965 Age: 55ysprain right ankle.INSTRUCTIONSUse crutches. Wear splint. You may walk and bear weight as tolerated.(Please take tylenol and motrin for pain. please follow up with your insurance verification rep. use crutches as instructed.return if worse or [...] by patient. ADDITIONAL INFORMATION 2 General Instructions [facility] Emergency Department [address] [place] [address] Phone #: ext- [phone] 03/22/2021 16:01 Patient: [...] next 2 to 3 3 General Instructions [facility] Emergency Department [address] [place] [address] Phone #: ext- [phone] 03/22/2021 16:01 Patient: [...] splint gets wet, dry it with a chairman emeritus on a cool setting. You may use fkvr-dti-bubbowz pain medicine to control pain, unless another [...] cast or splint develops cracks or breaks [id number] [employer]. [address] [place] [address]. All rights reserved. This information is not intended as asubstitute for professional medical care. Always follow your healthcare professional's instructions. You have been given the following additional information: Ankle Fracture 4 General Instructions [facility] Emergency Department [address] [place] [address] Phone #: ext- [phone] 03/22/2021 16:01 Patient: DEANNA AN Sex: M : 1965 Age: 55yYou may walk and bear weight as tolerated.(Electronically signed by Yohana Cason MD 03/23/2021 00:47) Name Value Range Interpretation Code Description Data Toma rce(s) Supporting Document(s) ID Date Data Source [id number] 03/22/2021 04:02:00 PM EDT [facility] 1 Clinical Report - Nurses [facility] Emergency Department [address] [place] [address] Phone #: [phone]- [phone] 03/22/2021 16:01 Patient: DEANNA AN Sex: M [...] ft was so swollen. He waited in [facility] waiting room for hrs prior to coming here.). He has had swelling, redness and trouble walking. 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 SEPSIS SCREEN: SIRS SCREEN NEGATIVE. SEPSIS [...] Bobo R.N. 2 Clinical Report - Nurses [facility] Emergency Department [address] [place] [address] Phone #: ext- [phone] 03/22/2021 16:01 [id number] Sex: M : 1965 Age: 55yGabapentin Oral (Tablet 600 mg). --16:24 03/22/21 Marisela Bobo R.N.Levothyroxine Sodium Oral 25 mcg, daily. --16:24 03/22/21 Marisela Bobo R.N.Metoprolol Tartrate Oral 25 mg, daily. --16:03/22/21 Marisela Bobo R.N.Montelukast Sodium Oral (Tablet 10 mg). --16:03/22/21 Marisela Bobo R.N.Allergiesadhesive talpe.Codeine Phosphate.(hives)Latex. --16:16 03/22/21 Marisela Bboo R.N.PROBLEMS:Hypercholesterolemia.Back Pain.Hypothyroidism.Obesity.Neck Pain. --16:16 03/22/21 Marisela Bobo [...] impairments noted. 3 Clinical Report - Nurses [facility] Emergency Department [address] [place] [address] Phone #: ext- [phone] 03/22/2021 16:01 [id number] Sex: M : 1965 Age: 55y LEARNING [...] Patient transported to radiology by wheelchair with professor of radiology. --16:34 03/22/21 Chuck Corbin R.N. 16:41 03/22/21. Patient returned from radiology by wheelchair with professor of radiology. --16:41 03/22/21 Chuck Corbin R.N. Patient fit with new crutches. Crutch training performed by nurse; the patient demonstrated proper use. --18:24 03/22/21 Deborah Fernández R.N.DISPOSITION / DISCHARGE Condition at departure: improved. No learning barriers present. Reviewed crutch walking, splint care and rest, ice, compression and elevation instructions. Patient verbalized understanding. Written instructions provided in [place]ankan. The patient was discharged home and u naccompanied at time of discharge. He left on crutches and via taxi. 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 --18:25 03/22/21 Deborah Fernández R.N. 4 Clinical Report - Nurses [facility] Emergency Department [address] [place] [address] Phone #: ext- [phone] 03/22/2021 16:01 Patient: DEANNA AN Sex: M [...] rce(s) Supporting Document(s) ID Date Data Source [id number] 03/22/2021 04:02:00 PM EDT [facility] 1 Clinical Report - Physicians/Mid Levels [facility] Emergency Department [address] [place] [address] Phone #: ext- [phone] 03/22/2021 16:01 [id number] Sex: M : 1965 Age: 55y Arrived- [...] ft was so swollen. He waited in [facility] waiting room for hrs prior to [...] 07/14. 2 Clinical Report - Physicians/Mid Levels [facility] Emergency Department [address] [place] [address] Phone #: ext- [phone] 03/22/2021 16:01 Patient: DEANNA AN Sex: M [...] Exam FOOT COMPLETE-3 OR MORE VW RT [facility] [address] [place] [address] PHONE: [phone] FAX: [phone] Name .................. : JUVE Hawthorne Acct Number.................. : [id number] ROOM. ................. : VT-30 Number .. ................. : [id number] Stay type ............. : E/R Discharge Date......... ... : 03/22/21 Admit Date ......... : 03/22/21 Admit Phys .................... : COONEYNORM Date of ....... : 1965 Family Phys ................... : HAVEN RIVERA Phone .................. : [phone] Age ................................ : 55 Film# .................. .:[id number] Sex ................................. : M Unsigned transcriptions are preliminary reports and do not represent a medical or legal document FOOT COMPLETE-3 OR MORE VW RT [id number] COMPLETE:03/22/21 17:38 JLD [id number] Reason(s): Pain Trauma/Injury RIGHT FOOT X-RAY: INDICATION: Pain. FINDINGS/IMPRESSION: Postoperative changes are noted in the second to with fusion across the PIP joint. There is no evidence of acute hardware complication. No fracture or dislocation is appreciated. No significant degenerative change. 3 Clinical Report - Physicians/Mid Levels [facility] Emergency Department [address] [place] [address] Phone #: ext- [phone] 03/22/2021 16:01 Patient: JUVE, DEANNA Hawthorne Sex: M : 1965 Age: 55y Electronically Reviewed and Signed By DCTNAME , SIGNDATE, NHY Transcribe Initials: DRE , Transcribe Date: 03/22/21 23:08, Dictation Date: <<REPDIST>> Page 1 of 1Ankle AP And LAT Right: (LEONARDA: 03/22/2021 16:21) ( MsgRcvd 03/22/2021 23:08) In ProgressANKLE APReason(s): PainTRANSPORTATION: WC IV? O2? Oxygen?(No) Room: ED Exam ANKLE AP //T// [place] [address] PHONE: [phone] FAX: [phone] Name .................. : JUVE Hawthorne Acct Number.................. : [id number] ROOM. ................. : VT-30 MR Number ................... : [id number] Stay type ............. : E/R Discharge Date......... ... : 03/22/21 Admit Date ......... : 03/22/21 Admit Phys .................... : COONEYNORM Date of ....... : 1965 Family Phys ................... : [employer] Phone .................. : [phone] Age ................................ : 55 Film# .................. .:[id number] Sex ................................. : M Unsigned transcriptions are [...] CANALES 4 Clinical Report - Physicians/Mid Levels [facility] Emergency Department [address] [place] [address] Phone #: [phone]- [phone] 03/22/2021 16:01 Patient: DEANNA AN Sex: M [...] the boot he was given by his insurance verification rep does not fit. xray shows a possible [...] for pain. please follow up with your insurance verification rep. use crutches as instructed. return if worse [...] daily. 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 ID Date Data Source [id number] 02/28/2021 06:02:00 PM EDT [facility] Name Value Range Interpretation Code Description Data Toma rce(s) Supporting Document(s) SARS coronavirus 2 RNA [Presence] in Res piratory specimen by KIRK with probe detection NEGATIVE [facility] This lab was ordered by [facility] a nd reported by [facility]. ID Date Data Source [id number] 01/17/2021 09:30:00 AM EDT [facility] Name Value Range Interpretation Code Description Data Toma rce(s) Supporting Document(s) SARS-CoV-2 (COVID-19) RNA [Presence] in Respiratory specimen by KIRK with probe detection Not Detected [facility] This lab was ordered by [facility] and reported by [employer]. ID Date Data Source [id number] 11/20/2020 12:00:00 AM EST eCW1 ([facility]) Name Value Range Interpretation Code Description Data Toma rce(s) Supporting Document(s) 24.0 30.0-100.0 eCW1 ([facility]) ID Date Data Source Basic Metabolic Profile (BMP) 11/20/2020 12:00:00 AM EST eCW 1 ([facility]) Name Value Range Interpretation Code Description Data Toma rce(s) Supporting Document(s) 81 70-100 eCW1 ([facility]) 1.29 0.70-1.30 eCW1 ([facility]) 143 136-145 eCW1 ([facility]) > 60.0 >56 eCW1 ([facility]) 10 7-18 eCW1 ([facility]) 109 98-107 eCW1 ([facility]) 4.4 3.5-5.1 eCW1 ([facility]) 29 21-32 eCW1 ([facility]) 9.1 8.5-10.1 eCW1 ([facility]) ID Date Data Source FREE T4 & TSH PANEL 11/20/2020 12:00:00 AM EST eCW1 ([facility]) Name Value Range Interpretation Code Description Data Toma rce(s) Supporting Document(s) 2.460 0.358-3.740 THYROID STIMULATING HORM ONE eCW1 ([facility]) 0.71 0.76-1.46 FREE T4 eCW1 ([facility]) ID Date Data Source [id number] 11/05/2020 09:50:00 AM EST [facility] ([facility]) Name Value Range Interpretation Code Description Data Toma rce(s) Supporting Document(s) Laboratory test finding (navigational concept) Laboratory test result [facility] ([facility]) ID Date Data Source [id number] 07/21/2020 11:01:24 PM EDT [facility] Name Value Range Interpretation Code Description Data Toma rce(s) Supporting Document(s) &PDF [facility] JPPKUx2lSyFLKmTu86/YNLxyNOTer7NxTRdiHBp1CYddYXQxO9HrjUfkVMIDNK8QKRLUXJQNBg1JVXud 0b3 DyOZMrFnQDuWT6PK1jRSUlrgTejgU1cE9bCL9VHRD+Er5XTB8it2IoSMz1HUCft7GgMRunEKs6N7IadJ ZqzkTvQomcmVUHGKPzNAImU7pflhv4jEXqEDM6Mc2GDnWyg5FzYWQvSHzGbj0uP0/TWBB+X2n/w5H2YY nGutRedsfvcEWLpYo9tAhOZgDHAS0qxLQg1GHPu97b 0aIiELixmeNgndK6z1+Z+uO9mvYGMCq//1qEwQJPszyz7hPBruxQtG+/qcnff8rX7y/OtdDHRr63ttPJ JMlrOq7St/JB5XcclI4DqFR+ClsYHUlAl9J0wB+yW8e7VgewQzxojHoMwrimA7GLQ8s7wI0SWTb03mz8 g4qNic2JK037v2MXMnjv15718mpEu81S0+e6gw6y81 [file] ICAgICAgICAgICAgICAgICAgICAgICAgICAgICAgICAgICAgICAgICAgICAgICAgICAgICAgICAgICAg ICAgICAgICAgICAgICAgICAgICAgICAgDQogICAgICAgICAgICAgICAgICAgICAgICAgICAgICAgICAg ICAgICAgICAgICAgICAgICAgICAgICAgICAgICAgIC AgICAgICAgICAgICAgICAgICAgICAgICAgICAgICAgICAgDQogICAgICAgICAgICAgICAgICAgICAgIC AgICAgICAgICAgICAgICAgICAgICAgICAgICAgICAgICAgICAgICAgICAgICAgICAgICAgICAgICAgIC AgICAgICAgICAgICAgICAgDQogICAgICAgICAgICAg ICAgICAgICAgICAgICAgICAgICAgICAgICAgICAgICAgICAgICAgICAgICAgICAgICAgICAgICAgICAg ICAgICAgICAgICAgICAgICAgICAgICAgICAgDQogICAgICAgICAgICAgICAgICAgICAgICAgICAgICAg ICAgICAgICAgICAgICAgICAgICAgICAgICAgICAgIC AgICAgICAgICAgICAgICAgICAgICAgICAgICAgICAgICAgICAgDQogICAgICAgICAgICAgICAgICAgIC AgICAgICAgICAgICAgICAgICAgICAgICAgICAgICAgICAgICAgICAgICAgICAgICAgICAgICAgICAgIC AgICAgICAgICAgICAgICAgICAgDQogICAgICAgICAg ICAgICAgICAgICAgICAgICAgICAgICAgICAgICAgICAgICAgICAgICAgICAgICAgICAgICAgICAgICAg ICAgICAgICAgICAgICAgICAgICAgICAgICAgICAgDQogICAgICAgICAgICAgICAgICAgICAgICAgICAg ICAgICAgICAgICAgICAgICAgICAgICAgICAgICAgIC AgICAgICAgICAgICAgICAgICAgICAgICAgICAgICAgICAgICAgICAgDQogICAgICAgICAgICAgICAgIC AgICAgICAgICAgICAgICAgICAgICAgICAgICAgICAgICAgICAgICAgICAgICAgICAgICAgICAgICAgIC AgICAgICAgICAgICAgICAgICAgICAgDQogICAgICAg ICAgICAgICAgICAgICAgICAgICAgICAgICAgICAgICAgICAgICAgICAgICAgICAgICAgICAgICAgICAg VVEpMNQfAOBpHQSsYXXiHZNlPDCrWDOrOOYxXDRdTCJoDJb7A9wnKTDuVRTmYC7oIWq1Yo0+DQoNCmVu PUE9dcDofU5IMZ5el6TmEWujCBAsf5XyWRy6PC9WYU ZtDTtfLY9YNOaqxy7GUTCbGTBnoNSWm9rrTpIcQQQ0RUGkSgzrAG3EWFGtK6aykfDoJHGqDVJHOBxsFV DGHQ9VJfSeH2ZbnT60YEZWJe3+VNorycQrEuxSLsA9FJWwo1CmEPl2CM0UAOLlXTgjCV6XEHHawI1pNM lpOW2QFvPaQSKqUTXRDrXfL57gsAQcBSs8M3StNnCw ZGVkRmlsZXMgPDwvTmFtZXMgWyBdDQogID4+ID4+PKpdSA2KVHgsbtVnUWYlBl1UJZBcWCM5DLNrvEZe IlJiOCJISCxrZO1IcNYwHIC0gC4rTVyfXPReTKKtB5yJLpNenUphJA59wRbnpoWstAOsYBh+Rh1XBX7c j1MnIRn8ouOpSZjePMY4AWwrFQVoWYHmALUfABV2EQ V0DFFTViDsEKKyRCRgWOnnLOVdHNPzvl7PEJIqIUYvCwQiZsYsQCLlJJCqQZvrQNUpISC7Zsh7IKQzZY XyAC8ZYgFcETHpHZJaEAZiKHOpTQBwgp2UQRWfXFJnWvZlPFCsSYGvKOJqOXbbUOHpXICoVxEoIMXvQG RpMZ1RCgZvZVTjMWZ9QyozOSXxOCIjba3EQRWsHRDn LFVyGEKsHQUdBQOhHTneFRJuCPU8OHjsUWVeKYOaXN6GFyYlECFxNUDqPKMhWTKxHRCeje0RNDTaTVEc YZT2LlQeHABxCDHbOUtfJLJlCBF8ZRX5RDZmXDBrNW7CDvEeTKFwVJW4MdumPRCtWVBphj3VDBNeCVLg NjgxNiAwMDAwMCBuDQowMDAwMDExNjcyIDAwMDAwIG 8UQnUnFFBoRXC1GKtkRTEwPYJpyg1DBTTjGEOlTaDuATYlTWExXHPqNLyxLWAcYOQeZRRvNRPjRTWrTP 7LNjRiWQMmEQH9LPxnODBhRHFhbr0FTNClPXOpPwQwUCJmHDWfNJUpYGqgQFKvXVGuTbQ9KQWlJEDlAK 4TDxIsKNYqGWZ3HGftIBYtAQPzxm4FDYVkLRTmBZR9 GxCuADZiOIJbKDyaXGWsGVNkVBxbHWQxCNUmBV8WDwCaGATxCnTsVpblMULjPLWvzp6NOWBuMXXbOOQ8 JJUgREBcKWGlHKe1qjNewWDgIRy7BS8EZ1AestPhBmpNHu3Ds831DFN8KQGrMk7CL9ghMg6rYUMwWCCR Bw1KRFv4JWZ9TmGfYNx0UGOnAnE2BMH0JsI7XfZtX1 P8IBMzK5U+BIjfFQbpSqN8EOeaEFJtJfxpRsheOFuxACA8Csd6OpYfDE0bZKOUKi4+DQpzdGFydHhyZW LIPzD1NgK3YIltMOGDVr8E ID Date Data Source [id number] 07/18/2020 10:02:00 AM EDT [facility] ([facility] [...] MD 07/19/2020 09 ID Date Data Source [id number] 07/17/2020 11:13:00 AM EDT [facility] ([facility] [...] Little GFR Left</content>
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
<content></content> Creatinine For GFR 1.08 mg/dL 0.70-1.30 [...] [facility] ID Date Data Source [id number] 07/17/2020 11:13:00 AM EDT [facility] ([facility] [...] EST Former Smoker completed Former Smoker eCW1 ([facility]) Smoking 09/10/2021 12:00:00 AM EST Former Smoker completed Former Smoker eCW1 ([facility]) Smoking 09/10/2021 12:00:00 AM EST Former Smoker completed Former Smoker eCW1 ([facility]) Smoking 09/04/2021 12:00:00 AM EST Former Smoker completed Former Smoker eCW1 ([facility]) Smoking 09/04/2021 12:00:00 AM EST Former Smoker completed Former Smoker eCW1 ([facility]) Smoking 07/23/2021 12:00:00 AM EDT Former Smoker completed Former Smoker eCW1 ([facility]) Smoking 07/23/2021 12:00:00 AM EDT Former Smoker completed Former Smoker eCW1 ([facility]) Smoking 07/23/2021 12:00:00 AM EDT Former Smoker completed Former Smoker eCW1 ([facility]) Smoking 07/23/2021 12:00:00 AM EDT Former Smoker completed Former Smoker eCW1 ([facility]) Smoking 07/23/2021 12:00:00 AM EDT Former Smoker completed Former Smoker eCW1 ([facility]) Smoking 07/23/2021 12:00:00 AM EDT Former Smoker completed Former Smoker eCW1 ([facility]) Smoking 07/23/2021 12:00:00 AM EDT Former Smoker completed Former Smoker eCW1 ([facility]) Smoking 07/23/2021 12:00:00 AM EDT Former Smoker completed Former Smoker eCW1 ([facility]) Smoking 07/23/2021 12:00:00 AM EDT Former Smoker completed Former Smoker eCW1 ([facility]) Smoking 07/23/2021 12:00:00 AM EDT Former Smoker completed Former Smoker eCW1 ([facility]) Smoking 07/23/2021 12:00:00 AM EDT Former Smoker completed Former Smoker eCW1 ([facility]) Smoking 07/22/2021 12:00:00 AM EDT Former Smoker completed Former Smoker eCW1 ([facility]) Smoking 06/28/2021 12:00:00 AM EDT Former Smoker completed Former Smoker eCW1 ([facility]) Smoking 06/28/2021 12:00:00 AM EDT Former Smoker completed Former Smoker eCW1 ([facility]) Smoking 06/28/2021 12:00:00 AM EDT Former Smoker completed Former Smoker eCW1 ([facility]) Smoking 06/28/2021 12:00:00 AM EDT Former Smoker completed Former Smoker eCW1 ([facility]) Smoking 06/28/2021 12:00:00 AM EDT Former Smoker completed Former Smoker eCW1 ([facility]) Smoking 06/13/2021 12:00:00 AM EDT Former Smoker completed Former Smoker eCW1 ([facility]) Smoking 06/13/2021 12:00:00 AM EDT Former Smoker completed Former Smoker eCW1 ([facility]) Smoking 06/13/2021 12:00:00 AM EDT Former Smoker completed Former Smoker eCW1 ([facility]) Smoking 05/23/2021 12:00:00 AM EDT Patient is a former smoker completed Patient is a former smoker [facility] ([facility] ) Smoking 05/16/2021 12:00:00 AM EDT Former Smoker completed Former Smoker eCW1 ([facility]) Smoking 05/16/2021 12:00:00 AM EDT Former Smoker completed Former Smoker eCW1 ([facility]) Smoking 05/16/2021 12:00:00 AM EDT Former Smoker completed Former Smoker eCW1 ([facility]) Smoking 05/16/2021 12:00:00 AM EDT Former Smoker completed Former Smoker eCW1 ([facility]) Smoking 05/16/2021 12:00:00 AM EDT Former Smoker completed Former Smoker eCW1 ([facility]) Smoking 04/25/2021 12:00:00 AM EDT Former Smoker completed Former Smoker eCW1 ([facility]) Smoking 04/25/2021 12:00:00 AM EDT Former Smoker completed Former Smoker eCW1 ([facility]) Smoking 04/25/2021 12:00:00 AM EDT Former Smoker completed Former Smoker eCW1 ([facility]) Smoking 04/25/2021 12:00:00 AM EDT Former Smoker completed Former Smoker eCW1 ([facility]) Smoking 04/25/2021 12:00:00 AM EDT Former Smoker completed Former Smoker eCW1 ([facility]) Smoking 04/25/2021 12:00:00 AM EDT Former Smoker completed Former Smoker eCW1 ([facility]) Alcohol intake 04/19/2021 12:00:00 AM EDT Current non-d [place] of alcohol (finding) completed Current non-drinker of alcohol (finding) [facility] Smoking 04/15/2021 12:00:00 AM EDT Former Smoker completed Former Smoker eCW1 ([facility]) Smoking 04/15/2021 12:00:00 AM EDT Former Smoker completed Former Smoker eCW1 ([facility]) Smoking 04/15/2021 12:00:00 AM EDT Former Smoker completed Former Smoker eCW1 ([facility]) Smoking 04/15/2021 12:00:00 AM EDT Former Smoker completed Former Smoker eCW1 ([facility]) Smoking 04/10/2021 12:00:00 AM EDT Former Smoker completed Former Smoker eCW1 ([facility]) Smoking 03/15/2021 12:00:00 AM EDT Former Smoker completed Former Smoker eCW1 ([facility]) Smoking 03/15/2021 12:00:00 AM EDT Former Smoker completed Former Smoker eCW1 ([facility]) Smoking 03/15/2021 12:00:00 AM EDT Former Smoker completed Former Smoker eCW1 ([facility]) Smoking 03/15/2021 12:00:00 AM EDT Former Smoker completed Former Smoker eCW1 ([facility]) Smoking 02/25/2021 12:00:00 AM EDT Former Smoker completed Former Smoker eCW1 ([facility]) Smoking 02/25/2021 12:00:00 AM EDT Former Smoker completed Former Smoker eCW1 ([facility]) Smoking 02/25/2021 12:00:00 AM EDT Former Smoker completed Former Smoker eCW1 ([facility]) Smoking 02/05/2021 12:00:00 AM EDT Former Smoker completed Former Smoker eCW1 ([facility]) Smoking 02/05/2021 12:00:00 AM EDT Former Smoker completed Former Smoker eCW1 ([facility]) Smoking 02/05/2021 12:00:00 AM EDT Former Smoker completed Former Smoker eCW1 ([facility]) Smoking 02/05/2021 12:00:00 AM EDT Former Smoker completed Former Smoker eCW1 ([facility]) Smoking 02/05/2021 12:00:00 AM EDT Former Smoker completed Former Smoker eCW1 ([facility]) Smoking 01/25/2021 12:00:00 AM EDT Former Smoker completed Former Smoker eCW1 ([facility]) Smoking 01/25/2021 12:00:00 AM EDT Former Smoker completed Former Smoker eCW1 ([facility]) Smoking 01/22/2021 12:00:00 AM EDT Former Smoker completed Former Smoker eCW1 ([facility]) Smoking 01/22/2021 12:00:00 AM EDT Former Smoker completed Former Smoker eCW1 ([facility]) Smoking 12/11/2020 12:00:00 AM EST Former Smoker completed Former Smoker eCW1 ([facility]) Smoking 12/11/2020 12:00:00 AM EST Former Smoker completed Former Smoker eCW1 ([facility]) Smoking 12/11/2020 12:00:00 AM EST Former Smoker completed Former Smoker eCW1 ([facility]) Smoking 12/11/2020 12:00:00 AM EST Former Smoker completed Former Smoker eCW1 ([facility]) Smoking 12/11/2020 12:00:00 AM EST Former Smoker completed Former Smoker eCW1 ([facility]) Smoking 12/11/2020 12:00:00 AM EST Former Smoker completed Former Smoker eCW1 ([facility]) Smoking 12/11/2020 12:00:00 AM EST Former Smoker completed Former Smoker eCW1 ([facility]) Smoking 12/11/2020 12:00:00 AM EST Former Smoker completed Former Smoker eCW1 ([facility]) Smoking 12/11/2020 12:00:00 AM EST Former Smoker completed Former Smoker eCW1 ([facility]) Smoking 12/11/2020 12:00:00 AM EST Former Smoker completed Former Smoker eCW1 ([facility]) Smoking 12/10/2020 12:00:00 AM EST Former Smoker completed Former Smoker eCW1 ([facility]) Smoking 11/20/2020 12:00:00 AM EST Former Smoker completed Former Smoker eCW1 ([facility]) Smoking 11/20/2020 12:00:00 AM EST Former Smoker completed Former Smoker eCW1 ([facility]) Smoking 11/20/2020 12:00:00 AM EST Former Smoker completed Former Smoker eCW1 ([facility]) Smoking 11/20/2020 12:00:00 AM EST Former Smoker completed Former Smoker eCW1 ([facility]) Smoking 11/20/2020 12:00:00 AM EST Former Smoker completed Former Smoker eCW1 ([facility]) Smoking 11/20/2020 12:00:00 AM EST Former Smoker completed Former Smoker eCW1 ([facility]) Smoking 11/20/2020 12:00:00 AM EST Former Smoker completed Former Smoker eCW1 ([facility]) Smoking 11/20/2020 12:00:00 AM EST Former Smoker completed Former Smoker eCW1 ([facility]) Smoking 11/17/2020 12:00:00 AM EST Patient is a former smoker completed Patient is a former smoker MEDENT ([facility]) Smoking 11/05/2020 12:00:00 AM EST Patient is a former smoker completed Patient is a former smoker MEDENT ([facility]) Smoking 10/09/2020 12:00:00 AM EST Former Smoker completed Former Smoker eCW1 ([facility]) Smoking 10/09/2020 12:00:00 AM EST Former Smoker completed Former Smoker eCW1 ([facility]) Smoking 10/09/2020 12:00:00 AM EST Former Smoker completed Former Smoker eCW1 ([facility]) Smoking 09/24/2020 12:00:00 AM EST Former Smoker completed Former Smoker eCW1 ([facility]) Smoking 09/24/2020 12:00:00 AM EST Former Smoker completed Former Smoker eCW1 ([facility]) Smoking 09/24/2020 12:00:00 AM EST Former Smoker completed Former Smoker eCW1 ([facility]) Smoking 09/24/2020 12:00:00 AM EST Former Smoker completed Former Smoker eCW1 ([facility]) Smoking 09/24/2020 12:00:00 AM EST Former Smoker completed Former Smoker eCW1 ([facility]) Smoking 08/15/2020 12:00:00 AM EST Former Smoker completed Former Smoker eCW1 ([facility]) Smoking 08/15/2020 12:00:00 AM EST Former Smoker completed Former Smoker eCW1 ([facility]) Smoking 08/15/2020 12:00:00 AM EST Former Smoker completed Former Smoker eCW1 ([facility]) Smoking 08/15/2020 12:00:00 AM EST Former Smoker completed Former Smoker eCW1 ([facility]) Smoking 08/15/2020 12:00:00 AM EST Former Smoker completed Former Smoker eCW1 ([facility]) Smoking 08/15/2020 12:00:00 AM EST Former Smoker completed Former Smoker eCW1 ([facility]) Smoking 08/15/2020 12:00:00 AM EST Former Smoker completed Former Smoker eCW1 ([facility]) Smoking 08/15/2020 12:00:00 AM EST Former Smoker completed Former Smoker eCW1 ([facility]) Smoking 08/15/2020 12:00:00 AM EST Former Smoker completed Former Smoker eCW1 ([facility]) Smoking 08/09/2020 12:00:00 AM EST Former Smoker completed Former Smoker eCW1 ([facility]) Smoking 08/09/2020 12:00:00 AM EST Former Smoker completed Former Smoker eCW1 ([facility]) Smoking 08/09/2020 12:00:00 AM EST Former Smoker completed Former Smoker eCW1 ([facility]) Smoking 08/09/2020 12:00:00 AM EST Former Smoker completed Former Smoker eCW1 ([facility]) Smoking 08/09/2020 12:00:00 AM EST Former Smoker completed Former Smoker eCW1 ([facility]) Smoking 08/08/2020 12:00:00 AM EST Former Smoker completed Former Smoker eCW1 ([facility]) Smoking 08/07/2020 12:00:00 AM EST Former Smoker completed Former Smoker eCW1 ([facility]) Smoking 07/26/2020 12:00:00 AM EDT Former Smoker completed Former Smoker eCW1 ([facility]) Smoking 07/17/2020 12:00:00 AM EDT Former Smoker completed Former Smoker eCW1 ([facility]) Vital Signs ID Date Data Source UNK Name Value Range Interpretation Code Description Data Source(s) Body weight 139.71 kg 139.71 kg eCW1 ([facility]) Body height 68 [in_i] 68 [in_i] eCW1 ([facility]) Body mass index (BMI) [Ratio] 46.83 kg/m2 46.83 kg/m2 eCW1 ([facility]) Systolic blood pressure 140 mm[Hg] 140 mm[Hg] e CW1 ([facility]) Diastolic blood pressure 88 mm[Hg] 88 mm[Hg] eCW1 ([facility]) Body weight 308 [lb_av] 308 [lb_av] eCW1 ([facility]) Body weight 312.0 [lb_av] 312.0 [lb_av] eCW1 ([facility]) Body height 68 [in_i] 68 [in_i] eCW1 ([facility]) Body mass index (BMI) [Ratio] 47.43 kg/m2 47.43 kg/m2 eCW1 ([facility]) Systolic blood pressure 132 mm[Hg] 132 mm[Hg] e CW1 ([facility]) Diastolic blood pressure 84 mm[Hg] 84 mm[Hg] eCW1 ([facility]) Body weight 316.6 [lb_av] 316.6 [lb_av] eCW1 ([facility]) Body weight 143.61 kg 143.61 kg eCW1 ([facility]) Body height 68 [in_i] 68 [in_i] eCW1 ([facility]) Body mass index (BMI) [Ratio] 48.13 kg/m2 48.13 kg/m2 eCW1 ([facility]) Systolic blood pressure 130 mm[Hg] 130 mm[Hg] e CW1 ([facility]) Diastolic blood pressure 78 mm[Hg] 78 mm[Hg] eCW1 ([facility]) Body height 68 [in_i] 68 [in_i] eCW1 ([facility]) Body weight 310.0 [lb_av] 310.0 [lb_av] eCW1 ([facility]) Body mass index (BMI) [Ratio] 47.13 kg/m2 47.13 kg/m2 eCW1 ([facility]) Heart rate 69 /min 69 /min eCW1 ([facility]) Respiratory rate 18 /min 18 /min eCW1 ([facility]) Body temperature 98.8 [degF] 98.8 [degF] eCW1 ( [facility]) Systolic blood pressure 144 mm[Hg] 144 mm[Hg] e CW1 ([facility]) Diastolic blood pressure 88 mm[Hg] 88 mm[Hg] eCW1 ([facility]) Body weight 140.62 kg 140.62 kg eCW1 ([facility]) Body height 68 [in_i] 68 [in_i] MEDENT ([facility] ) 5'8" Body mass index (BMI) [Ratio] 47.9 kg/m2 47.9 k g/m2 MEDENT ([facility] ) Body weight 315.00 [lb_av] 315.00 [lb_av] MEDEN T ([facility] ) Systolic blood pressure 116 mm[Hg] 116 mm[Hg] M EDENT ([facility], ) Diastolic blood pressure 74 mm[Hg] 74 mm[Hg] MEDENT ([facility], ) Heart rate 70 /min 70 /min MEDSAHARA ([facility], ) Oxygen saturation in Arterial blood by Pulse oximetry 100 % 100 % MEDSAHARA ([facility], ) Room Air Body height 68 [in_i] 68 [in_i] [facility] [place] 5'8" Body weight 313.00 [lb_av] 313.00 [lb_av] MEDEN T ([facility]) Body mass index (BMI) [Ratio] 47.6 kg/m2 47.6 k g/m2 [facility] ([facility]) [place] body weight 154 [lb_av] 154 [lb_av] MEDEN T ([facility]) Body weight 141.977 kg 141.977 kg [facility] ([facility] [place]) Body surface area Derived from formula 2.47 m2 2.47 m2 [facility] ([facility]) Body weight 312 [lb_av] 312 [lb_av] eCW1 ([facility]) Body weight 141.52 kg 141.52 kg W1 ([facility]) Body height 68 [in_i] 68 [in_i] eCW1 ([facility]) Body mass index (BMI) [Ratio] 47.43 kg/m2 47.43 kg/m2 eCW1 ([facility]) Systolic blood pressure 136 mm[Hg] 136 mm[Hg] e CW1 ([facility]) Diastolic blood pressure 74 mm[Hg] 74 mm[Hg] eCW1 ([facility]) Body weight 307 [lb_av] 307 [lb_av] eCW1 ([facility]) Body height 68 [in_i] 68 [in_i] eCW1 ([facility]) Body mass index (BMI) [Ratio] 46.67 kg/m2 46.67 kg/m2 eCW1 ([facility]) Heart rate 84 /min 84 /min eCW1 ([facility]) Respiratory rate 20 /min 20 /min eCW1 ([facility]) Body temperature 97.8 [degF] 97.8 [degF] eCW1 ( [facility]) Systolic blood pressure 134 mm[Hg] 134 mm[Hg] e CW1 ([facility]) Diastolic blood pressure 70 mm[Hg] 70 mm[Hg] eCW1 ([facility]) Systolic blood pressure 116 mm[Hg] 116 mm[Hg] [facility] Diastolic blood pressure 76 mm[Hg] 76 mm[Hg] [facility] Heart rate 65 /min 65 /min [facility] Respiratory rate 18 /min 18 /min [facility] Body weight 140.343 kg 140.343 kg [facility] Body mass index (BMI) [Ratio] 47.04 kg/m2 47.04 kg/m2 [facility] Oxygen saturation in Arterial blood by Pulse oximetry 98 % 98 % [facility] Heart rate 68 /min 68 /min eCW1 ([facility]) Respiratory rate 19 /min 19 /min eCW1 ([facility]) Body temperature 98 [degF] 98 [degF] eCW1 ([facility]) Systolic blood pressure 133 mm[Hg] 133 mm[Hg] e CW1 ([facility]) Diastolic blood pressure 79 mm[Hg] 79 mm[Hg] eCW1 ([facility]) Body weight 306 [lb_av] 306 [lb_av] eCW1 ([facility]) Body height 68 [in_i] 68 [in_i] eCW1 ([facility]) Body mass index (BMI) [Ratio] 46.52 kg/m2 46.52 kg/m2 eCW1 ([facility]) Body weight 306.8 [lb_av] 306.8 [lb_av] eCW1 ([facility]) Systolic blood pressure 120 mm[Hg] 120 mm[Hg] e CW1 ([facility]) Diastolic blood pressure 60 mm[Hg] 60 mm[Hg] eCW1 ([facility]) Body height 68 [in_i] 68 [in_i] eCW1 ([facility]) Body mass index (BMI) [Ratio] 46.64 kg/m2 46.64 kg/m2 eCW1 ([facility]) Heart rate 87 /min 87 /min eCW1 ([facility]) Respiratory rate 20 /min 20 /min eCW1 ([facility]) Body temperature 97.1 [degF] 97.1 [degF] eCW1 ( [facility]) Body weight 310 [lb_av] 310 [lb_av] eCW1 ([facility]) Body height 68 [in_i] 68 [in_i] eCW1 ([facility]) Body mass index (BMI) [Ratio] 47.13 kg/m2 47.13 kg/m2 eCW1 ([facility]) Heart rate 77 /min 77 /min eCW1 ([facility]) Respiratory rate 20 /min 20 /min eCW1 ([facility]) Body temperature 98 [degF] 98 [degF] eCW1 ([facility]) Systolic blood pressure 124 mm[Hg] 124 mm[Hg] e CW1 ([facility]) Diastolic blood pressure 70 mm[Hg] 70 mm[Hg] eCW1 ([facility]) Respiratory rate 18 /min 18 /min eCW1 ([facility]) Body temperature 98.1 [degF] 98.1 [degF] eCW1 ( [facility]) Systolic blood pressure 130 mm[Hg] 130 mm[Hg] e CW1 ([facility]) Diastolic blood pressure 80 mm[Hg] 80 mm[Hg] eCW1 ([facility]) Body weight 314 [lb_av] 314 [lb_av] eCW1 ([facility]) Body height 68 [in_i] 68 [in_i] eCW1 ([facility]) Body mass index (BMI) [Ratio] 47.74 kg/m2 47.74 kg/m2 eCW1 ([facility]) Heart rate 81 /min 81 /min eCW1 ([facility]) Body mass index (BMI) [Ratio] 47.9 kg/m2 47.9 k g/m2 MEDENT ([facility]) Body weight 315.00 [lb_av] 315.00 [lb_av] MEDEN T ([facility]) Body height 68 [in_i] 68 [in_i] MEDENT ([facility] [place]) 5'8" [place] body weight 154 [lb_av] 154 [lb_av] MEDEN T ([facility]) Body weight 142.884 kg 142.884 kg MEDENT ([facility] [place]) Body surface area Derived from formula 2.48 m2 2.48 m2 MEDENT ([facility]) Body weight 315.00 [lb_av] 315.00 [lb_av] MEDEN T ([facility]) Body mass index (BMI) [Ratio] 47.9 kg/m2 47.9 k [facility] [place] body weight 154 [lb_av] 154 [lb_av] MEDEN T ([facility]) Body weight 142.884 [facility].884 [facility] [place] Systolic blood pressure 126 mm[Hg] 126 mm[Hg] M EDENT ([facility]) Diastolic blood pressure 70 mm[Hg] 70 mm[Hg] MEDENT ([facility]) Body height 68 [in_i] 68 [in_i] MEDENT ([facility] [place]) 5'8" Body surface area Derived from formula 2.48 m2 2.48 m2 [facility] ([facility]) Body weight 308 [lb_av] 308 [lb_av] eCW1 ([facility]) Body height 68 [in_i] 68 [in_i] eCW1 ([facility]) Body mass index (BMI) [Ratio] 46.83 kg/m2 46.83 kg/m2 eCW1 ([facility]) Heart rate 88 /min 88 /min eCW1 ([facility]) Respiratory rate 20 /min 20 /min eCW1 ([facility]) Body temperature 98.6 [degF] 98.6 [degF] eCW1 ( [facility]) Systolic blood pressure 130 mm[Hg] 130 mm[Hg] e CW1 ([facility]) Diastolic blood pressure 84 mm[Hg] 84 mm[Hg] eCW1 ([facility]) Body weight 304 [lb_av] 304 [lb_av] eCW1 ([facility]) Body height 68 [in_i] 68 [in_i] eCW1 ([facility]) Body mass index (BMI) [Ratio] 46.22 kg/m2 46.22 kg/m2 eCW1 ([facility]) Heart rate 85 /min 85 /min eCW1 ([facility]) Respiratory rate 18 /min 18 /min eCW1 ([facility]) Body temperature 97.6 [degF] 97.6 [degF] eCW1 ( [facility]) Systolic blood pressure 121 mm[Hg] 121 mm[Hg] e CW1 ([facility]) Diastolic blood pressure 76 mm[Hg] 76 mm[Hg] eCW1 ([facility]) Body weight 305 [lb_av] 305 [lb_av] eCW1 ([facility]) Body height 68 [in_i] 68 [in_i] eCW1 ([facility]) Body mass index (BMI) [Ratio] 46.37 kg/m2 46.37 kg/m2 W1 ([facility]) Heart rate 85 /min 85 /min eCW1 ([facility]) Respiratory rate 20 /min 20 /min eCW1 ([facility]) Body temperature 97.5 [degF] 97.5 [degF] eCW1 ( [facility]) Systolic blood pressure 136 mm[Hg] 136 mm[Hg] e CW1 ([facility]) Diastolic blood pressure 80 mm[Hg] 80 mm[Hg] eCW1 ([facility]) Systolic blood pressure 113 mm[Hg] 113 mm[Hg] M EDENT ([facility]) Diastolic blood pressure 61 mm[Hg] 61 mm[Hg] MEDENT ([facility]) Heart rate 58 /min 58 /min [facility] ([facility] Respiratory rate 13 /min 13 /min MEDENT ( [facility]) Oxygen saturation in Arterial blood by Pulse oximetry 96 % 96 % MEDENT ([facility], [facility]) Body temperature 95.1 [degF] 95.1 [degF] MEDENT ([facility], [facility]) Body weight 300.00 [lb_av] 300.00 [lb_av] MEDEN T ([facility], [facility]) Body height 68 [in_i] 68 [in_i] MEDENT ([facility], [facility]) 5'8" Body mass index (BMI) [Ratio] 45.6 kg/m2 45.6 k g/m2 MEDENT ([facility], [facility]) Body temperature 96.7 [degF] 96.7 [degF] MEDENT ([facility]) Body temperature 97.3 [degF] 97.3 [degF] MEDENT ([facility]) Body temperature 97.3 [degF] 97.3 [degF] MEDENT ([facility]) Body height 68 [in_i] 68 [in_i] MEDENT ([facility]) 5'8" Body weight 306.00 [lb_av] 306.00 [lb_av] MEDEN T ([facility]) Body mass index (BMI) [Ratio] 46.5 kg/m2 46.5 k g/m2 MEDENT ([facility]) Body temperature 96.8 [degF] 96.8 [degF] MEDENT ([facility]) Body weight 306 [lb_av] 306 [lb_av] eCW1 ([facility]) Body height 68 [in_i] 68 [in_i] eCW1 ([facility]) Body mass index (BMI) [Ratio] 46.52 kg/m2 46.52 kg/m2 eCW1 ([facility]) Heart rate 90 /min 90 /min eCW1 ([facility]) Respiratory rate 20 /min 20 /min eCW1 ([facility]) Body temperature 97 [degF] 97 [degF] eCW1 ([facility]) Systolic blood pressure 130 mm[Hg] 130 mm[Hg] e CW1 ([facility]) Diastolic blood pressure 80 mm[Hg] 80 mm[Hg] eCW1 ([facility]) Body weight 305.0 [lb_av] 305.0 [lb_av] eCW1 ([facility]) Body height 68 [in_i] 68 [in_i] eCW1 ([facility]) Body mass index (BMI) [Ratio] 46.37 kg/m2 46.37 kg/m2 eCW1 ([facility]) Heart rate 85 /min 85 /min eCW1 ([facility]) Respiratory rate 18 /min 18 /min eCW1 ([facility]) Body temperature 96.9 [degF] 96.9 [degF] eCW1 ( [facility]) Systolic blood pressure 121 mm[Hg] 121 mm[Hg] e CW1 ([facility]) Diastolic blood pressure 76 mm[Hg] 76 mm[Hg] eCW1 ([facility]) Body weight 300 [lb_av] 300 [lb_av] eCW1 ([facility]) Body height 68 [in_i] 68 [in_i] eCW1 ([facility]) Body mass index (BMI) [Ratio] 45.61 kg/m2 45.61 kg/m2 eCW1 ([facility]) Heart rate 69 /min 69 /min eCW1 ([facility]) Respiratory rate 18 /min 18 /min eCW1 ([facility]) Body temperature 97.9 [degF] 97.9 [degF] eCW1 ( [facility]) Systolic blood pressure 118 mm[Hg] 118 mm[Hg] e CW1 ([facility]) Diastolic blood pressure 68 mm[Hg] 68 mm[Hg] eCW1 ([facility]) Body weight 301.2 [lb_av] 301.2 [lb_av] eCW1 ([facility]) Body height 68 [in_i] 68 [in_i] eCW1 ([facility]) Body mass index (BMI) [Ratio] 45.79 kg/m2 45.79 kg/m2 eCW1 ([facility]) Heart rate 68 /min 68 /min eCW1 ([facility]) Respiratory rate 18 /min 18 /min eCW1 ([facility]) Body temperature 98.4 [degF] 98.4 [degF] eCW1 ( [facility]) Systolic blood pressure 115 mm[Hg] 115 mm[Hg] e CW1 ([facility]) Diastolic blood pressure 68 mm[Hg] 68 mm[Hg] eCW1 ([facility]) Body weight 295 [lb_av] 295 [lb_av] eCW1 ([facility]) Body height 68 [in_i] 68 [in_i] eCW1 ([facility]) Body mass index (BMI) [Ratio] 44.85 kg/m2 44.85 kg/m2 eCW1 ([facility]) Heart rate 110 /min 110 /min eCW1 ([facility]) Respiratory rate 18 /min 18 /min eCW1 ([facility]) Body temperature 97.9 [degF] 97.9 [degF] eCW1 ( [facility]) Systolic blood pressure 112 mm[Hg] 112 mm[Hg] e CW1 ([facility]) Diastolic blood pressure 80 mm[Hg] 80 mm[Hg] eCW1 ([facility]) Body weight 297.4 [lb_av] 297.4 [lb_av] eCW1 ([facility]) Body height 68 [in_i] 68 [in_i] eCW1 ([facility]ly [facility], [facility]) Body mass index (BMI) [Ratio] 45.21 kg/m2 45.21 kg/m2 eCW1 ([facility]) Heart rate 78 /min 78 /min eCW1 ([facility]) Respiratory rate 20 /min 20 /min eCW1 ([facility]) Body temperature 97.2 [degF] 97.2 [degF] eCW1 ( [facility]) Systolic blood pressure 113 mm[Hg] 113 mm[Hg] e CW1 ([facility]) Diastolic blood pressure 56 mm[Hg] 56 mm[Hg] eCW1 ([facility]) Body weight 297.4 [lb_av] 297.4 [lb_av] eCW1 ([facility]) Body height 68 [in_i] 68 [in_i] eCW1 ([facility], [facility]) Body mass index (BMI) [Ratio] 45.21 kg/m2 45.21 kg/m2 eCW1 ([facility]) Heart rate 99 /min 99 /min eCW1 ([facility]) Respiratory rate 20 /min 20 /min eCW1 ([facility]) Body temperature 98.5 [degF] 98.5 [degF] eCW1 ( [facility]) Systolic blood pressure 104 mm[Hg] 104 mm[Hg] e CW1 ([facility]) Diastolic blood pressure 70 mm[Hg] 70 mm[Hg] eCW1 ([facility]) ID Date Data Source [id number] 04/03/2021 10:47:01 AM EDT [facility] Name Value Range Interpretation Code Description Data Source(s) WEIGHT RECORDED 300.[address] [facility] Height 68 Inches 068 Inches [facility] Patient Treatment Plan of Care Planned Activity Planned Date Details Description Data Source (s) May Use - 09/03/2021 12:00:00 AM EST e CW1 ([facility]) May Use - 09/03/2021 12:00:00 AM EST e CW1 ([facility]) May Use - 09/03/2021 12:00:00 AM EST e CW1 ([facility]) Hydroxyzine Hydrochloride 25 MG Oral Tablet 07/22/2021 12:00:00 AM EDT eCW1 ([facility]) Hydroxyzine Hydrochloride 25 MG Oral Tablet 07/22/2021 12:00:00 AM EDT eCW1 ([facility]) Hydroxyzine Hydrochloride 25 MG Oral Tablet 07/22/2021 12:00:00 AM EDT eCW1 ([facility]) Hydroxyzine Hydrochloride 25 MG Oral Tablet 07/22/2021 12:00:00 AM EDT eCW1 ([facility]) Hydroxyzine Hydrochloride 25 MG Oral Tablet 07/22/2021 12:00:00 AM EDT eCW1 ([facility]) Hydroxyzine Hydrochloride 25 MG Oral Tablet 07/22/2021 12:00:00 AM EDT eCW1 ([facility]) Hydroxyzine Hydrochloride 25 MG Oral Tablet 07/22/2021 12:00:00 AM EDT eCW1 ([facility]) Hydroxyzine Hydrochloride 25 MG Oral Tablet 07/22/2021 12:00:00 AM EDT eCW1 ([facility]) Hydroxyzine Hydrochloride 25 MG Oral Tablet 07/22/2021 12:00:00 AM EDT eCW1 ([facility]) Hydroxyzine Hydrochloride 25 MG Oral Tablet 07/22/2021 12:00:00 AM EDT eCW1 ([facility]) Hydroxyzine Hydrochloride 25 MG Oral Tablet 07/22/2021 12:00:00 AM EDT eCW1 ([facility]) Hydroxyzine Hydrochloride 25 MG Oral Tablet 07/22/2021 12:00:00 AM EDT eCW1 ([facility]) Betamethasone 0.5 MG/ML Topical Cream 06/28/2021 12:00:00 AM EDT eCW1 ([facility]) Betamethasone 0.5 MG/ML Topical Cream 06/28/2021 12:00:00 AM EDT eCW1 ([facility]) Betamethasone 0.5 MG/ML Topical Cream 06/28/2021 12:00:00 AM EDT eCW1 ([facility]) Betamethasone 0.5 MG/ML Topical Cream 06/28/2021 12:00:00 AM EDT eCW1 ([facility]) Betamethasone 0.5 MG/ML Topical Cream 06/28/2021 12:00:00 AM EDT eCW1 ([facility]) Triamcinolone Acetonide 1 MG/ML Topical Cream 05/16/2021 12:00:00 A M EDT eCW1 ([facility]) Triamcinolone Acetonide 1 MG/ML Topical Cream 05/16/2021 12:00:00 A M EDT eCW1 ([facility]) Triamcinolone Acetonide 1 MG/ML Topical Cream 05/16/2021 12:00:00 A M EDT eCW1 ([facility]) Triamcinolone Acetonide 1 MG/ML Topical Cream 05/16/2021 12:00:00 A M EDT eCW1 ([facility]) Triamcinolone Acetonide 1 MG/ML Topical Cream 05/16/2021 12:00:00 A M EDT eCW1 ([facility]) Ondansetron 8 MG Oral Tablet 05/15/2021 12:00:00 AM EDT eCW1 ([facility]) tramadol hydrochloride 50 MG Oral Tablet 04/17/2021 12:00:00 AM EDT [facility] topiramate 50 MG Oral Tablet 03/26/2021 12:00:00 AM EDT [facility] Hydrocortisone 10 MG/ML / Neomycin 3.5 M G/ML / Polymyxin B 35246 UNT/ML Otic Suspension 03/18/2021 12:00:00 AM EDT [facility] Hydrocortisone 10 MG/ML / Neomycin 3.5 M G/ML / Polymyxin B 79139 UNT/ML Otic Suspension 03/18/2021 12:00:00 AM EDT eCW1 ([facility]) Hydrocortisone 10 MG/ML / Neomycin 3.5 M G/ML / Polymyxin B 01204 UNT/ML Otic Suspension 03/18/2021 12:00:00 AM EDT eCW1 ([facility]) Hydrocortisone 10 MG/ML / Neomycin 3.5 M G/ML / Polymyxin B 53926 UNT/ML Otic Suspension 03/18/2021 12:00:00 AM EDT eCW1 ([facility]) Hydrocortisone 10 MG/ML / Neomycin 3.5 M G/ML / Polymyxin B 41017 UNT/ML Otic Suspension 03/18/2021 12:00:00 AM EDT eCW1 ([facility]) Fluocinolone Acetonide 0.1 MG/ML Otic Solution [Jeremy ic] 03/15/2021 12:00:00 AM EDT eCW1 ([facility]) Fluocinolone Acetonide 0.1 MG/ML Otic Solution [Jeremy ic] 03/15/2021 12:00:00 AM EDT eCW1 ([facility]) POLYETHYLENE GLYCOL 3350 142 MG/ML Oral Solution 03/15/2021 12:00:0 0 AM EDT [facility] Docusate Sodium 100 MG Oral Capsule [Colace] 03/15/2021 12:00:00 AM EDT eCW1 ([facility]) POLYETHYLENE GLYCOL 3350 142 MG/ML Oral Solution [Carlene lax] 03/15/2021 12:00:00 AM EDT eCW1 ([facility]) Docusate Sodium 100 MG Oral Capsule [Colace] 03/15/2021 12:00:00 AM EDT eCW1 ([facility]) POLYETHYLENE GLYCOL 3350 142 MG/ML Oral Solution [Carlene lax] 03/15/2021 12:00:00 AM EDT eCW1 ([facility]) Docusate Sodium 100 MG Oral Capsule [Colace] 03/15/2021 12:00:00 AM EDT eCW1 ([facility]) POLYETHYLENE GLYCOL 3350 142 MG/ML Oral Solution [Carlene lax] 03/15/2021 12:00:00 AM EDT eCW1 ([facility]) Docusate Sodium 100 MG Oral Capsule [Colace] 03/15/2021 12:00:00 AM EDT eCW1 ([facility]) POLYETHYLENE GLYCOL 3350 142 MG/ML Oral Solution [Carlene lax] 03/15/2021 12:00:00 AM EDT eCW1 ([facility]) Bisacodyl 5 MG Delayed Release Oral Tablet 03/02/2021 12:00:00 AM E DT [facility] Metoprolol Tartrate 25 MG Oral Tablet 02/26/2021 12:00:00 AM EDT [facility] Clobetasol Propionate 0.5 MG/ML Topical Cream 01/25/2021 12:00:00 A M EDT eCW1 ([facility]) Clobetasol Propionate 0.5 MG/ML Topical Cream 01/25/2021 12:00:00 A M EDT eCW1 ([facility]) Fluocinolone Acetonide 0.1 MG/ML Otic Solution [Jeremy ic] 08/07/2020 12:00:00 AM EST eCW1 ([facility]) apixaban 5 MG Oral Tablet [Eliquis] 05/15/2020 12:00:00 AM EDT [facility] Mupirocin 0.02 MG/MG Topical Ointment 04/12/2020 12:00:00 AM EDT [facility] Levothyroxine Sodium 0.075 MG Oral Tablet 09/19/2019 12:00:00 AM ES T [facility] Hydrocortisone 10 MG/ML Topical Cream [facility] Acetaminophen 500 MG Oral Tablet [facility] ammonium lactate 120 MG/ML Topical Lotion [facility] Aspirin 325 MG Delayed Release Oral Tablet [facility] Polyvinyl Alcohol 0.014 ML/ML Ophthalmic Solution [facility]
[2021-09-15] MEDS ORDERED: LIDOCAINE 5% (LIDODERM) PATCH TD ONE (20:35)
[2021-09-15] MEDS ORDERED: ASPE4PAD TOP (20:35)
[2021-09-15] MEDS ORDERED: traMADol 50 MG TAB PO ONE (20:35)
[2021-09-15] MEDS ORDERED: TRAM50TA2 PO (20:37)
[2021-09-15] MEDS ORDERED: **NOTE PATIENT COMMENT** MISC XX SCH (21:00)
== END 2021-09-15 21:40 | disposition home or self-care (01) ==
LOC: M ED 16:13
DX: M54.50 Low back pain, unspecified (principal); I25.10 Atherosclerotic heart disease of native coronary artery without angina pectoris; I10 Essential (primary) hypertension; K21.9 Gastro-esophageal reflux disease without esophagitis; Z87.442 Personal history of urinary calculi; Z98.84 Bariatric surgery status; F17.200 Nicotine dependence, unspecified, uncomplicated; Z79.899 Other long term (current) drug therapy; Z91.89 Other specified personal risk factors, not elsewhere classified; Z88.5 Allergy status to narcotic agent; Z91.040 Latex allergy status

== ENCOUNTER → 2021-09-18 | Outpatient (CLI) | payer OTHER ==
[~2021-09-18] MED LIST changes: +ASPE4PAD TOP
--- NOTE | 2021-09-19 12:52 | REPVR ---
PROCEDURE INFORMATION: Exam: MR Lumbar Spine Without Contrast Exam date and time: 09/18/2021 10:02 AM Age: 56 years old Clinical indication: Low back pain; Additional Info: INTERVERTEBRAL DISC DISORDERS W RADICULOPATHY, LUM TECHNIQUE: Imaging protocol: Multiplanar magnetic resonance images of the lumbar spine without intravenous contrast. COMPARISON: MRI-Spine, L.S. without con 06/28/2015 7:16 AM FINDINGS: Vertebrae: Vertebral body height is maintained at each level. Spinal cord: The lower thoracic spinal cord and conus medullaris demonstrate preservation of signal intensity on all pulse sequences. Cauda equina are normal in caliber and signal intensity. T12-L1: The posterior disc contour is normal. There is no central canal or neural foraminal stenosis. L1-L2: Bilateral facet arthropathy with ligamentum flavum hypertrophy. No central canal stenosis. No disc herniation. Mild right neural foraminal stenosis secondary to vertebral endplate ridging, progressive from prior. L2-L3: Less than 2 mm grade 1 retrolisthesis. No disc herniation. Minor sagittal plane stenosis secondary to facet arthropathy and ligamentum flavum hypertrophy, with interval progression compared to prior. No neural foraminal stenosis. L3-L4: Less than 2 mm grade 1 retrolisthesis. 3 mm left neural foraminal disc protrusion with endplate ridging, causing moderate neural foraminal stenosis. Facet arthropathy contacts the exiting left L3 nerve root. Appearance is similar compared to prior. Bilateral facet arthropathy is present with ligamentum flavum hypertrophy. No central canal stenosis. L4-L5: Interval progression of bilateral facet arthropathy with marked ligamentum flavum hypertrophy, severe on the right. This causes moderate sagittal plane narrowing with impression on the thecal sac. Hypertrophied right sided ligamentum flavum contacts the right L5 nerve root in the lateral recess. 2 mm left neural foraminal disc protrusion with focal tear of the annular margin. Severe left neural foraminal stenosis is present, and there is mild impression on the exiting left L4 nerve root from facet arthropathy and disc protrusion. Severe right neural foraminal stenosis is present with mass effect on the right L4 nerve root from facet arthropathy and ligamentum flavum hypertrophy. L5-S1: Bilateral facet arthropathy. No disc herniation. No central canal stenosis. Mild right neural foraminal stenosis secondary to endplate ridging and facet arthropathy without contact of the exiting right L5 nerve root. Other bones/joints: Signal from bone is preserved. There is no acute fracture. Soft tissues: Soft tissues in the prevertebral space are preserved. IMPRESSION: 1. Interval progression in degenerative spondylosis at L4-L5. We severe right facet arthropathy and ligamentum flavum hypertrophy, contacting the right L5 nerve root in the lateral recess. Severe bilateral neural foraminal stenosis with mass effect on the exiting L4 nerve roots. 2. Left neural foraminal disc protrusion at L3-L4 with moderate neural foraminal stenosis. Contact of the exiting left L3 nerve root from facet arthropathy, similar compared to prior. Electronically signed by: Julita Lafleur On 09/19/2021 12:52:11 PM
== END ==
LOC: M RAD 09:12
PROVIDERS: ATTEND Anesthesiology
DX: M51.16 Intervertebral disc disorders with radiculopathy, lumbar region (principal); M51.27 Other intervertebral disc displacement, lumbosacral region; M47.816 Spondylosis without myelopathy or radiculopathy, lumbar region; M47.817 Spondylosis without myelopathy or radiculopathy, lumbosacral region; M48.061 Spinal stenosis, lumbar region without neurogenic claudication; M48.07 Spinal stenosis, lumbosacral region

== ENCOUNTER 2021-10-07 14:52 | Emergency (ER) | payer OTHER ==
[~2021-10-07] VITALS: Ht 172.7 cm; Wt 138.5 kg
[2021-10-07] MEDS ORDERED: dexameTHASONE 20MG/5ML VIAL (J1100 PER 1MG) IV ONE (20:20)
[2021-10-07] MEDS ORDERED: ACETAMINOPHEN 500 MG TAB PO ONE (20:20)
[2021-10-07] MEDS ORDERED: NS 500 ML IV ONE (20:20)
[2021-10-07] MEDS ORDERED: PROMETHAZINE INJ 25 MG/ML VIAL (J2550) IV ONE (20:20)
[2021-10-07 20:53] LABS: BASO # 0.1 10^3/uL (0.0-0.2); BASO % 0.7 % (0.0-1.0); EOS # 0.2 10^3/uL (0.0-0.5); HEMATOCRIT 44.3 % (42.0-52.0); HEMOGLOBIN 14.1 g/dl (13.5-17.5); LYMPH # 1.5 10^3/uL (1.5-5.0); LYMPH % 16.4 % (24.0-44.0); MEAN CORPUSCULAR HEMOGLOBIN 28.3 pg (27.0-33.0); MEAN CORPUSCULAR HGB CONC 31.8 g/dl (32.0-36.5); MEAN CORPUSCULAR VOLUME 88.8 fl (80.0-96.0); NEUTROPHILS # 6.2 10^3/uL (1.5-8.5); NEUTROPHILS % 69.2 % (36.0-66.0); PLATELET COUNT, AUTOMATED 255 10^3/uL (150-450); RED BLOOD COUNT 4.99 10^6/uL (4.30-6.10)
[2021-10-07 21:20] LABS: BLOOD UREA NITROGEN 10 MG/DL (7-18); CALCIUM LEVEL 8.7 MG/DL (8.5-10.1); CARBON DIOXIDE LEVEL 25 MEQ/L (21-32); CHLORIDE LEVEL 109 MEQ/L (98-107); CREATININE FOR GFR 1.25 MG/DL (0.70-1.30); GLOMERULAR FILTRATION RATE > 60.0 (>56); GLUCOSE, FASTING 116 MG/DL (70-100); SODIUM LEVEL 141 MEQ/L (136-145)
[2021-10-07 22:06] LABS: ERYTHROCYTE SEDIMENTATION RATE 6 mm/hr (0-20)
--- NOTE | 2021-10-07 23:22 | REPVR ---
PROCEDURE INFORMATION: Exam: CT Abdomen And Pelvis Without Contrast Exam date and time: 10/07/2021 10:33 PM Age: 56 years old Clinical indication: Other: Hematuria; Additional info: Hematuria, suprapubic pain TECHNIQUE: Imaging protocol: Computed tomography of the abdomen and pelvis without contrast. Radiation optimization: All CT scans at this facility use at least one of these dose optimization techniques: automated exposure control; mA and/or kV adjustment per patient size (includes targeted exams where dose is matched to clinical indication); or iterative reconstruction. COMPARISON: CT ABD/PEL W/IV CONTRAST ONLY 03/09/2021 12:15 AM FINDINGS: Lungs: Mild left base infiltrate and atelectasis and minimal right lower lobe fibro-atelectatic change. Liver: Exophytic hepatic cyst adjacent to the gallbladder measuring 5.9 cm with a Hounsfield measurement of 9 which is similar to the prior study. Gallbladder and bile ducts: Normal. No calcified stones. No ductal dilation. Pancreas: Normal. No ductal dilation. Spleen: Normal. No splenomegaly. Adrenal glands: Normal. No mass. Kidneys and ureters: Nonobstructing bilateral renal calculi are noted. There is a large calculus in the left renal pelvis at the UPJ measuring 7 x 8 x 11 mm with no significant hydronephrosis or evidence of obstructive uropathy. Stomach and bowel: Mild stool throughout much of the colon. Appendix: A normal appendix is seen. Intraperitoneal space: Unremarkable. No free air. No significant fluid collection. Vasculature: Unremarkable. No abdominal aortic aneurysm. Lymph nodes: Unremarkable. No enlarged lymph nodes. Urinary bladder: Unremarkable as visualized. Reproductive: Unremarkable as visualized. Bones/joints: Status post sternotomy. Soft tissues: Small fat filled umbilical hernia. IMPRESSION: 1. Nonobstructing bilateral renal calculi with a large left renal calculus which has migrated from the upper pole to the left renal pelvis at the UPJ measuring 7 x 8 x 11 mm with no significant hydronephrosis or obstructive uropathy. 2. Mild left base infiltrate and atelectasis or scar which is similar to 03/09/2021. There is minimal right lower lobe fibro-atelectatic change which is new with resolution of right base infiltrates since the prior study. 3. Otherwise negative CT abdomen/pelvis. Electronically signed by: Pablito Henderson On 10/07/2021 23:21:12 PM
[2021-10-07 23:51] VITALS: BP 131/76
== END 2021-10-08 00:09 | disposition home or self-care (01) ==
LOC: M ED 14:52
DX: R51.9 Headache, unspecified (principal); N20.0 Calculus of kidney; R31.9 Hematuria, unspecified; I10 Essential (primary) hypertension; E78.5 Hyperlipidemia, unspecified; I25.2 Old myocardial infarction; G47.33 Obstructive sleep apnea (adult) (pediatric); Z88.5 Allergy status to narcotic agent; Z91.040 Latex allergy status; Z79.899 Other long term (current) drug therapy
CPT/HCPCS: 74176; 80048; 81001; 85025; 85652; 87086; 96374; 96375; 99284; J1100

== ENCOUNTER → 2021-10-07 | Outpatient (CLI) | payer OTHER | LOC: M PAIN 13:30 | PROVIDERS: ATTEND Anesthesiology | DX: M48.062 Spinal stenosis, lumbar region with neurogenic claudication (principal); M51.16 Intervertebral disc disorders with radiculopathy, lumbar region; G89.29 Other chronic pain; K21.9 Gastro-esophageal reflux disease without esophagitis; E55.9 Vitamin D deficiency, unspecified; G47.33 Obstructive sleep apnea (adult) (pediatric); Z86.59 Personal history of other mental and behavioral disorders; Z87.891 Personal history of nicotine dependence; Z88.5 Allergy status to narcotic agent; Z91.018 Allergy to other foods; Z91.040 Latex allergy status; Z91.09 Other allergy status, other than to drugs and biological substances; E66.01 Morbid (severe) obesity due to excess calories; Z68.42 Body mass index [BMI] 45.0-49.9, adult; Z79.82 Long term (current) use of aspirin; Z79.899 Other long term (current) drug therapy ==

== ENCOUNTER 2021-10-11 09:13 | Observation (INO) | payer OTHER ==
[~2021-10-11] VITALS: Ht 172.7 cm; Wt 140.1 kg
[~2021-10-11 09:13] MED LIST changes: -MONT10TA10 PO; +MONT10TA97 PO
[2021-10-11] MEDS ORDERED: PROMETHAZINE INJ 25 MG/ML VIAL (J2550) IV ONE (12:30)
[2021-10-11] MEDS ORDERED: MORPHINE 4 MG/ML 1ML VIAL/SYRINGE (J2270) IV ONE (12:30)
[2021-10-11] MEDS ORDERED: NS 1,000 ML IV ONE (12:30)
[2021-10-11 13:16] LABS: BASO # 0.1 10^3/uL (0.0-0.2); BASO % 0.5 % (0.0-1.0); EOS # 0.1 10^3/uL (0.0-0.5); EOS % 0.7 % (0.0-3.0); HEMATOCRIT 45.2 % (42.0-52.0); HEMOGLOBIN 14.6 g/dl (13.5-17.5); LYMPH # 1.1 10^3/uL (1.5-5.0); LYMPH % 8.3 % (24.0-44.0); MEAN CORPUSCULAR HEMOGLOBIN 28.2 pg (27.0-33.0); MEAN CORPUSCULAR HGB CONC 32.3 g/dl (32.0-36.5); MEAN CORPUSCULAR VOLUME 87.3 fl (80.0-96.0); MONO # 1.1 10^3/uL (0.0-0.8); MONO % 8.5 % (2.0-8.0); NEUTROPHILS # 10.8 10^3/uL (1.5-8.5); PLATELET COUNT, AUTOMATED 276 10^3/uL (150-450); RED BLOOD COUNT 5.18 10^6/uL (4.30-6.10); WHITE BLOOD COUNT 13.3 10^3/uL (4.0-10.0)
[2021-10-11 13:32] LABS: CREATININE FOR GFR 1.48 MG/DL (0.70-1.30); GLOMERULAR FILTRATION RATE 52.7 (>56); POTASSIUM SERUM 3.9 MEQ/L (3.5-5.1)
[2021-10-11] MEDS ORDERED: TAMSULOSIN 0.4 MG CAP PO ONE (15:20)
[2021-10-11] MEDS ORDERED: ONDANSETRON 4MG/2ML VIAL IV PRN (15:35)
[2021-10-11] MEDS ORDERED: MORPHINE 4 MG/ML 1ML VIAL/SYRINGE (J2270) IV PRN (15:35)
[2021-10-11 15:44] LABS: RSV AMPLIFICATION NEGATIVE (NEGATIVE)
[2021-10-11] MEDS ORDERED: TOPI50TA9 PO (16:52)
[2021-10-11] MEDS: KCL 20MEQ in NS 1000ML 1,000 ML IV SCH ×2 (17:53→23:50)
[2021-10-11] MEDS ORDERED: ALBUTEROL 90 MCG/ACT 8GM HFA INHALER INH PRN (18:30)
[2021-10-11] MEDS ORDERED: HOME MED LIST COMPLETE! XX SCH (19:50)
[2021-10-11] MEDS ORDERED: HYDR-3363 PO (20:04)
[2021-10-11] MEDS ORDERED: ASPI81TA26 PO (20:04)
[2021-10-11] MEDS ORDERED: ESCITALOPRAM OXALATE 10 MG TAB (LEXAPRO) PO SCH (21:00)
[2021-10-11] MEDS ORDERED: TAMSULOSIN 0.4 MG CAP PO SCH (21:00)
[2021-10-11] MEDS: busPIRone 10 MG TAB PO SCH (21:16)
[2021-10-11] MEDS: GABAPENTIN 300 MG CAP PO SCH (21:16)
[2021-10-11] MEDS: TRIHEXYPHENIDYL 2 MG TAB PO SCH (21:33)
[2021-10-11 22:05] VITALS: BP 139/91
[2021-10-12] VITALS (8 sets, daily range): BP systolic 96–137; BP diastolic 69–88
[2021-10-12] MEDS: GABAPENTIN 300 MG CAP PO SCH ×2 (05:07→15:49)
[2021-10-12] MEDS: KCL 20MEQ in NS 1000ML 1,000 ML IV SCH ×2 (05:09→11:24)
[2021-10-12] MEDS ORDERED: LEVOTHYROXINE 25MCG TABLET (0.025MG) PO SCH (06:00)
[2021-10-12 07:07] LABS: HEMATOCRIT 42.8 % (42.0-52.0); HEMOGLOBIN 13.7 g/dl (13.5-17.5); MEAN CORPUSCULAR HEMOGLOBIN 28.4 pg (27.0-33.0); MEAN CORPUSCULAR VOLUME 88.6 fl (80.0-96.0); PLATELET COUNT, AUTOMATED 256 10^3/uL (150-450); RED BLOOD COUNT 4.83 10^6/uL (4.30-6.10); WHITE BLOOD COUNT 13.5 10^3/uL (4.0-10.0)
[2021-10-12 07:29] LABS: CALCIUM LEVEL 8.5 MG/DL (8.5-10.1); CREATININE FOR GFR 1.82 MG/DL (0.70-1.30); GLOMERULAR FILTRATION RATE 41.5 (>56); POTASSIUM SERUM 4.5 MEQ/L (3.5-5.1)
[2021-10-12] MEDS ORDERED: cefTRIAXone SOD 1 GM in D5W MINI-BAG PLUS 50 ML IV SCH (08:00)
[2021-10-12] MEDS ORDERED: LIDOCAINE 2% 100MG/5ML SDV (FOR ANES.) As Ordered ONE (08:28)
[2021-10-12] MEDS ORDERED: MIDAZOLAM INJ 2MG/2ML VIAL (J2250 PER 1MG) As Ordered ONE (08:28)
[2021-10-12] MEDS ORDERED: fentaNYL 100 MCG/2 ML INJECTION (J3010) As Ordered ONE (08:28)
[2021-10-12] MEDS ORDERED: propofoL 200 MG/20 ML VIAL As Ordered ONE ×3 (08:28→08:32)
[2021-10-12] MEDS ORDERED: ONDANSETRON 4MG/2ML VIAL As Ordered ONE (08:29)
[2021-10-12] MEDS ORDERED: CONRAY-60 60% 50ML VIAL (Q9961) As Ordered ONE (08:39)
[2021-10-12] MEDS ORDERED: ESCITALOPRAM OXALATE 10 MG TAB (LEXAPRO) PO SCH ×2 (09:00)
[2021-10-12] MEDS ORDERED: METOPROLOL TART 12.5 MG PER 1/2 TAB PO SCH (09:00)
[2021-10-12] MEDS ORDERED: PANTOPRAZOLE 40MG VIAL (C9113 PER 1) IV SCH (09:00)
[2021-10-12] MEDS ORDERED: ENOXAPARIN 40MG/0.4ML SYRINGE (J1650 PER 10MG) SC SCH (09:00)
[2021-10-12] MEDS ORDERED: dexameTHASONE 4 MG/ML 1ML VIAL (J1100 PER 1MG) As Ordered ONE (09:01)
[2021-10-12] MEDS ORDERED: ACETAMINOPHEN 1000MG 100ML IV BTL (OFIRMEV) (J0131 PER 10MG) As Ordered ONE (09:12)
[2021-10-12] MEDS ORDERED: PHENYLephrine 500MCG 5ML (100MCG/ML) SYRINGE As Ordered ONE (09:21)
[2021-10-12] MEDS ORDERED: fentaNYL 100 MCG/2 ML INJECTION (J3010) IV PRN (10:00)
[2021-10-12] MEDS ORDERED: LR 1,000 ML IV SCH ×2 (10:00→12:45)
[2021-10-12] MEDS ORDERED: PROMETHAZINE INJ 25 MG/ML VIAL (J2550) IV PRN (10:00)
[2021-10-12] MEDS ORDERED: ALBUTEROL SULFATE 2.5 MG/0.5 ML INH NEB SOLN INH ONE (10:00)
[2021-10-12] MEDS ORDERED: HYDROMORPHONE HCL 0.5 MG/ 0.5 ML SYRINGE (J1170 PER 1) IV PRN (10:00)
[2021-10-12] MEDS ORDERED: ONDANSETRON 4MG/2ML VIAL IV PRN (10:00)
[2021-10-12] MEDS ORDERED: oxyCODONE 5MG TAB PO PRN (10:00)
[2021-10-12] MEDS: TRIHEXYPHENIDYL 2 MG TAB PO SCH (11:24)
[2021-10-12] MEDS: busPIRone 10 MG TAB PO SCH (11:24)
[2021-10-12] MEDS ORDERED: IBUPROFEN 600MG TAB PO PRN (12:45)
== END 2021-10-12 16:00 | disposition home or self-care (01) ==
LOC: M ED 09:13 → M ED INP 09:14 → M MS5PR 20:53
PROVIDERS: ADMIT Family Medicine; ATTEND Family Medicine
DX: N13.2 Hydronephrosis with renal and ureteral calculous obstruction (principal); K21.9 Gastro-esophageal reflux disease without esophagitis; M54.50 Low back pain, unspecified; G47.33 Obstructive sleep apnea (adult) (pediatric); E03.9 Hypothyroidism, unspecified; F41.9 Anxiety disorder, unspecified; F32.9 Major depressive disorder, single episode, unspecified; Z95.1 Presence of aortocoronary bypass graft; I25.10 Atherosclerotic heart disease of native coronary artery without angina pectoris; Z87.891 Personal history of nicotine dependence; Z91.040 Latex allergy status; Z88.5 Allergy status to narcotic agent; Z79.82 Long term (current) use of aspirin; Z79.899 Other long term (current) drug therapy
CPT/HCPCS: 36415; 52332; 74176; 74420; 80048; 81001; 85025; 85027; 87086; 87631; 96361; 96365; 96375; 99284; C2617; C9113; J0131; J0696; J1100; J2250; J2270; J2370; J2405; J3010; J3480; Q9961

== ENCOUNTER 2021-10-20 15:54 | Emergency (ER) | payer OTHER ==
[~2021-10-20] VITALS: Ht 172.7 cm; Wt 137.0 kg
[~2021-10-20 15:54] MED LIST changes: +ASPI81TA26 PO; +HYDR-3363 PO; -OMEP-221 PO; +OMEP40CA5 PO
[2021-10-20] MEDS ORDERED: TOPI25TA10 (16:10)
[2021-10-20 17:43] LABS: BASO # 0.1 10^3/uL (0.0-0.2); EOS # 0.2 10^3/uL (0.0-0.5); EOS % 2.9 % (0.0-3.0); HEMATOCRIT 44.7 % (42.0-52.0); HEMOGLOBIN 13.8 g/dl (13.5-17.5); LYMPH % 24.5 % (24.0-44.0); MEAN CORPUSCULAR HEMOGLOBIN 27.8 pg (27.0-33.0); MEAN CORPUSCULAR HGB CONC 30.9 g/dl (32.0-36.5); MEAN CORPUSCULAR VOLUME 89.9 fl (80.0-96.0); MONO # 1.2 10^3/uL (0.0-0.8); MONO % 14.5 % (2.0-8.0); NEUTROPHILS # 4.6 10^3/uL (1.5-8.5); NEUTROPHILS % 55.9 % (36.0-66.0); PLATELET COUNT, AUTOMATED 304 10^3/uL (150-450); RED BLOOD COUNT 4.97 10^6/uL (4.30-6.10); WHITE BLOOD COUNT 8.2 10^3/uL (4.0-10.0)
[2021-10-20 18:14] LABS: ALBUMIN 3.4 GM/DL (3.2-5.2); ALT/SGPT 26 U/L (12-78); BILIRUBIN,DIRECT < 0.1 MG/DL (0.0-0.2); BILIRUBIN,TOTAL 0.2 MG/DL (0.2-1.0); BLOOD UREA NITROGEN 9 MG/DL (7-18); CALCIUM LEVEL 9.2 MG/DL (8.5-10.1); CARBON DIOXIDE LEVEL 29 MEQ/L (21-32); CHLORIDE LEVEL 109 MEQ/L (98-107); CREATININE FOR GFR 1.39 MG/DL (0.70-1.30); GLOMERULAR FILTRATION RATE 56.7 (>56); GLUCOSE, FASTING 101 MG/DL (70-100); LIPASE 92 U/L (73-393); POTASSIUM SERUM 4.1 MEQ/L (3.5-5.1); SODIUM LEVEL 141 MEQ/L (136-145); TOTAL PROTEIN 6.9 GM/DL (6.4-8.2)
[2021-10-20] MEDS ORDERED: CIPR-249 PO (19:57)
[2021-10-20 20:12] VITALS: BP 139/74
[2021-10-20] MEDS ORDERED: CIPROFLOXACIN 500MG TABLET PO ONE (21:00)
== END 2021-10-20 20:18 | disposition home or self-care (01) ==
LOC: M ED 15:54
DX: N39.0 Urinary tract infection, site not specified (principal); N20.0 Calculus of kidney; Z96.0 Presence of urogenital implants; I50.9 Heart failure, unspecified; I10 Essential (primary) hypertension; K21.9 Gastro-esophageal reflux disease without esophagitis; K76.0 Fatty (change of) liver, not elsewhere classified; E03.9 Hypothyroidism, unspecified; F90.9 Attention-deficit hyperactivity disorder, unspecified type; F41.9 Anxiety disorder, unspecified; F32.9 Major depressive disorder, single episode, unspecified; Z86.711 Personal history of pulmonary embolism; Z87.442 Personal history of urinary calculi; Z95.1 Presence of aortocoronary bypass graft; Z79.82 Long term (current) use of aspirin; Z79.899 Other long term (current) drug therapy; Z91.89 Other specified personal risk factors, not elsewhere classified; Z88.5 Allergy status to narcotic agent; Z91.040 Latex allergy status

== ENCOUNTER 2021-10-29 17:03 | Emergency (ER) | payer MEDICAID, OTHER ==
[~2021-10-29 17:03] MED LIST changes: +CIPR-249 PO; +TOPI25TA10
[2021-10-29] MEDS ORDERED: TAMS1CAP17 (17:19)
[2021-10-29 18:26] LABS: BASO # 0.1 10^3/uL (0.0-0.2); BASO % 0.9 % (0.0-1.0); EOS # 0.3 10^3/uL (0.0-0.5); EOS % 3.9 % (0.0-3.0); HEMATOCRIT 45.4 % (42.0-52.0); HEMOGLOBIN 14.6 g/dl (13.5-17.5); LYMPH # 1.8 10^3/uL (1.5-5.0); LYMPH % 22.4 % (24.0-44.0); MEAN CORPUSCULAR HEMOGLOBIN 28.2 pg (27.0-33.0); MEAN CORPUSCULAR HGB CONC 32.2 g/dl (32.0-36.5); MEAN CORPUSCULAR VOLUME 87.6 fl (80.0-96.0); MONO # 1.1 10^3/uL (0.0-0.8); MONO % 13.1 % (2.0-8.0); NEUTROPHILS # 4.8 10^3/uL (1.5-8.5); NEUTROPHILS % 58.7 % (36.0-66.0); PLATELET COUNT, AUTOMATED 291 10^3/uL (150-450); RED BLOOD COUNT 5.18 10^6/uL (4.30-6.10); WHITE BLOOD COUNT 8.2 10^3/uL (4.0-10.0)
[2021-10-29] MEDS ORDERED: PROMETHAZINE INJ 25 MG/ML VIAL (J2550) IV ONE (19:05)
[2021-10-29] MEDS ORDERED: MORPHINE 4 MG/ML 1ML VIAL/SYRINGE (J2270) IV ONE (19:05)
[2021-10-29] MEDS ORDERED: NS 1,000 ML IV ONE (19:05)
[2021-10-29 19:07] LABS: ALBUMIN 3.6 GM/DL (3.2-5.2); ALT/SGPT 27 U/L (12-78); BILIRUBIN,DIRECT < 0.1 MG/DL (0.0-0.2); BILIRUBIN,TOTAL 0.2 MG/DL (0.2-1.0); BLOOD UREA NITROGEN 9 MG/DL (7-18); CALCIUM LEVEL 9.2 MG/DL (8.5-10.1); CARBON DIOXIDE LEVEL 26 MEQ/L (21-32); CHLORIDE LEVEL 106 MEQ/L (98-107); CREATININE FOR GFR 1.38 MG/DL (0.70-1.30); GLOMERULAR FILTRATION RATE 57.2 (>56); GLUCOSE, FASTING 94 MG/DL (70-100); LIPASE 100 U/L (73-393); POTASSIUM SERUM 4.1 MEQ/L (3.5-5.1); SODIUM LEVEL 139 MEQ/L (136-145); TOTAL PROTEIN 7.1 GM/DL (6.4-8.2)
[2021-10-29] MEDS ORDERED: HYDR-3713 PO (21:19)
[2021-10-29 21:30] VITALS: BP 140/91
[2021-10-29] MEDS ORDERED: NORCO 5/325MG TABLET (BULK FOR ED) PO ONE (21:30)
== END 2021-10-29 21:47 | disposition home or self-care (01) ==
LOC: M ED 17:03
DX: R31.9 Hematuria, unspecified (principal); R10.32 Left lower quadrant pain; I25.10 Atherosclerotic heart disease of native coronary artery without angina pectoris; I25.2 Old myocardial infarction; Z96.0 Presence of urogenital implants; N20.0 Calculus of kidney; K76.89 Other specified diseases of liver; Z79.82 Long term (current) use of aspirin; Z79.899 Other long term (current) drug therapy; Z91.89 Other specified personal risk factors, not elsewhere classified; Z91.040 Latex allergy status; Z88.5 Allergy status to narcotic agent
CPT/HCPCS: 74176; 80048; 80076; 81001; 83690; 85025; 87086; 96361; 96374; 96375; 99283; J2270

== ENCOUNTER → 2021-11-11 | Outpatient (REF) | payer OTHER, MEDICAID ==
[~2021-11-11] MED LIST changes: +TAMS1CAP17
[2021-11-11 17:25] LABS: APPEARANCE, URINE CLOUDY (CLEAR); BACTERIA, URINE AUTO NEGATIVE (NEGATIVE); BILIRUBIN, URINE AUTO NEGATIVE (NEGATIVE); BLOOD, URINE BLOOD 2+ (NEGATIVE); COLOR, URINE RED (YELLOW); GLUCOSE, URINE (UA) AUTO NEGATIVE (NEGATIVE); KETONE, URINE AUTO NEGATIVE (NEGATIVE); LEUKOCYTE ESTERASE, URINE AUTO 1+ (NEGATIVE); MUCUS, URINE SMALL (NEGATIVE); NITRITE, URINE AUTO NEGATIVE (NEGATIVE); PROTEIN, URINE AUTO 2+ mg/dL (NEGATIVE); RBC, URINE AUTO TNTC /HPF (0-3); SQUAMOUS EPITHELIAL CELL UR AU 0 /HPF (0-6); UROBILINOGEN, URINE AUTO 0.2 mg/dL (0.0-2.0); WBC, URINE AUTO 86 /HPF (0-3)
== END ==
LOC: M SMT 15:04
PROVIDERS: ATTEND Nurse Practitioner Women's Health
DX: N20.0 Calculus of kidney (principal); Z01.818 Encounter for other preprocedural examination

== ENCOUNTER → 2021-11-13 | Outpatient (CLI) | payer OTHER, MEDICAID | LOC: M LABSMTC 12:33 | PROVIDERS: ATTEND Anesthesiology | DX: Z01.812 Encounter for preprocedural laboratory examination (principal) ==

== ENCOUNTER → 2021-11-13 | Outpatient (CLI) | payer OTHER | LOC: M RAD 09:53 | PROVIDERS: ATTEND Urology | DX: N20.0 Calculus of kidney (principal) ==

== ENCOUNTER → 2021-11-13 | Outpatient (CLI) | payer OTHER ==
[2021-11-13 11:02] LABS: HEMATOCRIT 42.2 % (42.0-52.0); HEMOGLOBIN 13.3 g/dl (13.5-17.5); MEAN CORPUSCULAR HEMOGLOBIN 28.2 pg (27.0-33.0); MEAN CORPUSCULAR HGB CONC 31.5 g/dl (32.0-36.5); MEAN CORPUSCULAR VOLUME 89.6 fl (80.0-96.0); PLATELET COUNT, AUTOMATED 263 10^3/uL (150-450); RED BLOOD COUNT 4.71 10^6/uL (4.30-6.10); WHITE BLOOD COUNT 6.7 10^3/uL (4.0-10.0)
[2021-11-13 11:13] LABS: INR 0.92; PROTHROMBIN TIME 12.8 SECONDS (12.7-14.5)
[2021-11-13 11:14] LABS: PARTIAL THROMBOPLASTIN TIME 29.9 SECONDS (25.9-37.0)
[2021-11-13 11:26] LABS: BLOOD UREA NITROGEN 13 MG/DL (7-18); CALCIUM LEVEL 8.8 MG/DL (8.5-10.1); CARBON DIOXIDE LEVEL 27 MEQ/L (21-32); CHLORIDE LEVEL 110 MEQ/L (98-107); CREATININE FOR GFR 1.32 MG/DL (0.70-1.30); GLOMERULAR FILTRATION RATE > 60.0 (>56); GLUCOSE, FASTING 109 MG/DL (70-100); POTASSIUM SERUM 3.9 MEQ/L (3.5-5.1); SODIUM LEVEL 143 MEQ/L (136-145)
== END ==
LOC: M LAB 09:48
PROVIDERS: ATTEND Nurse Practitioner Women's Health
DX: Z01.818 Encounter for other preprocedural examination (principal); N20.0 Calculus of kidney

== ENCOUNTER 2021-11-19 15:58 | Emergency (ER) | payer OTHER, MEDICAID ==
[~2021-11-19] VITALS: Ht 172.7 cm; Wt 137.4 kg
[2021-11-19] MEDS ORDERED: NS 500 ML IV ONE (17:50)
[2021-11-19] MEDS ORDERED: KETOROLAC 30 MG/ML 1ML VIAL IV ONE (17:50)
[2021-11-19 17:52] LABS: BASO # 0.1 10^3/uL (0.0-0.2); BASO % 0.7 % (0.0-1.0); EOS # 0.4 10^3/uL (0.0-0.5); EOS % 5.4 % (0.0-3.0); HEMATOCRIT 45.1 % (42.0-52.0); HEMOGLOBIN 14.1 g/dl (13.5-17.5); LYMPH # 1.6 10^3/uL (1.5-5.0); LYMPH % 21.3 % (24.0-44.0); MEAN CORPUSCULAR HEMOGLOBIN 28.1 pg (27.0-33.0); MEAN CORPUSCULAR HGB CONC 31.3 g/dl (32.0-36.5); MEAN CORPUSCULAR VOLUME 89.8 fl (80.0-96.0); MONO # 1.1 10^3/uL (0.0-0.8); MONO % 15.4 % (2.0-8.0); NEUTROPHILS # 4.2 10^3/uL (1.5-8.5); NEUTROPHILS % 56.5 % (36.0-66.0); PLATELET COUNT, AUTOMATED 284 10^3/uL (150-450); RED BLOOD COUNT 5.02 10^6/uL (4.30-6.10); WHITE BLOOD COUNT 7.4 10^3/uL (4.0-10.0)
[2021-11-19 18:03] LABS: CALCIUM LEVEL 8.9 MG/DL (8.5-10.1); CREATININE FOR GFR 1.36 MG/DL (0.70-1.30); GLOMERULAR FILTRATION RATE 58.1 (>56); POTASSIUM SERUM 4.4 MEQ/L (3.5-5.1)
[2021-11-19 19:45] VITALS: BP 174/93
== END 2021-11-19 20:03 | disposition home or self-care (01) ==
LOC: M ED 15:58
DX: N20.0 Calculus of kidney (principal); I50.9 Heart failure, unspecified; I25.2 Old myocardial infarction; I10 Essential (primary) hypertension; E78.5 Hyperlipidemia, unspecified; K21.9 Gastro-esophageal reflux disease without esophagitis; Z87.442 Personal history of urinary calculi; Z86.711 Personal history of pulmonary embolism; K76.0 Fatty (change of) liver, not elsewhere classified; F90.9 Attention-deficit hyperactivity disorder, unspecified type; Z95.1 Presence of aortocoronary bypass graft; Z96.0 Presence of urogenital implants; Z79.82 Long term (current) use of aspirin; Z79.899 Other long term (current) drug therapy; Z91.89 Other specified personal risk factors, not elsewhere classified; Z88.5 Allergy status to narcotic agent; Z91.040 Latex allergy status
CPT/HCPCS: 74018; 76775; 80048; 81001; 85025; 87086; 96374; 99284; J1885

== ENCOUNTER → 2021-11-23 | Outpatient (CLI) | payer OTHER ==
[~2021-11-23] MED LIST changes: -TAMS1CAP17; +TAMS1CAP17 PO; -TOPI25TA10
== END ==
LOC: M LABSMTC 09:44
PROVIDERS: ATTEND Anesthesiology
DX: Z01.812 Encounter for preprocedural laboratory examination (principal); Z20.822 Contact with and (suspected) exposure to COVID-19

== ENCOUNTER 2021-11-28 06:53 | Day surgery (SDC) | payer OTHER ==
[~2021-11-28] VITALS: Ht 172.7 cm; Wt 136.1 kg
[~2021-11-28 06:53] MED LIST changes: +LIDOCAINE 1% MDV 20ML VIAL SQ PRN; +LR 1,000 ML IV ONE; +ceFAZolin SOD 1 GM in D5W MINI-BAG PLUS 50 ML IV ONE; +ceFAZolin SOD 2 GM in IV 1 EA IV ONE
[2021-11-28] MEDS ORDERED: MIDAZOLAM INJ 2MG/2ML VIAL (J2250 PER 1MG) As Ordered ONE (07:09)
[2021-11-28] MEDS ORDERED: ONDANSETRON 4MG/2ML VIAL As Ordered ONE (07:10)
[2021-11-28] MEDS ORDERED: LIDOCAINE 2% 100MG/5ML SDV (FOR ANES.) As Ordered ONE (07:10)
[2021-11-28] MEDS ORDERED: propofoL 200 MG/20 ML VIAL As Ordered ONE ×2 (07:10→09:07)
[2021-11-28] MEDS ORDERED: fentaNYL 100 MCG/2 ML INJECTION As Ordered ONE (08:18)
[2021-11-28 09:48] VITALS: BP 127/62
== END 2021-11-28 10:28 | disposition home or self-care (01) ==
LOC: M SDC 06:53
PROVIDERS: ATTEND Urology
DX: N20.0 Calculus of kidney (principal); I25.10 Atherosclerotic heart disease of native coronary artery without angina pectoris; I10 Essential (primary) hypertension; E78.5 Hyperlipidemia, unspecified; K76.0 Fatty (change of) liver, not elsewhere classified; E03.9 Hypothyroidism, unspecified; Z79.899 Other long term (current) drug therapy; G47.33 Obstructive sleep apnea (adult) (pediatric); F32.9 Major depressive disorder, single episode, unspecified; M41.9 Scoliosis, unspecified; Z91.040 Latex allergy status; F41.9 Anxiety disorder, unspecified; K21.9 Gastro-esophageal reflux disease without esophagitis; Z86.711 Personal history of pulmonary embolism; Z87.891 Personal history of nicotine dependence; D64.9 Anemia, unspecified
CPT/HCPCS: 50590; 74018; J0690; J2250; J2405; J3010

== ENCOUNTER → 2021-12-04 | Outpatient (CLI) | payer OTHER ==
[~2021-12-04] MED LIST changes: -LIDOCAINE 1% MDV 20ML VIAL SQ PRN; -LR 1,000 ML IV ONE; -ceFAZolin SOD 1 GM in D5W MINI-BAG PLUS 50 ML IV ONE; -ceFAZolin SOD 2 GM in IV 1 EA IV ONE
[2021-12-04 19:31] LABS: ALBUMIN 3.5 GM/DL (3.2-5.2); ALT/SGPT 27 U/L (12-78); BILIRUBIN,TOTAL 0.3 MG/DL (0.2-1.0); BLOOD UREA NITROGEN 8 MG/DL (7-18); CALCIUM LEVEL 8.8 MG/DL (8.5-10.1); CARBON DIOXIDE LEVEL 25 MEQ/L (21-32); CHLORIDE LEVEL 109 MEQ/L (98-107); CHOLESTEROL LEVEL 150 MG/DL (<200); CHOLESTEROL RISK RATIO 4.166 (<5); CREATININE FOR GFR 1.26 MG/DL (0.70-1.30); FREE T4 0.68 NG/DL (0.76-1.46); GLOMERULAR FILTRATION RATE > 60.0 (>56); GLUCOSE, FASTING 91 MG/DL (70-100); HDL CHOLESTEROL 36 MG/DL (>40); LDL CHOLESTEROL 51 MG/DL (<100); NON-HDL-C 114 MG/DL; POTASSIUM SERUM 4.5 MEQ/L (3.5-5.1); SODIUM LEVEL 140 MEQ/L (136-145); TOTAL PROTEIN 6.7 GM/DL (6.4-8.2); TRIGLYCERIDES LEVEL 315 MG/DL (<150)
[2021-12-04 19:34] LABS: BASO # 0.1 10^3/uL (0.0-0.2); BASO % 0.8 % (0.0-1.0); EOS # 0.3 10^3/uL (0.0-0.5); EOS % 4.8 % (0.0-3.0); HEMATOCRIT 44.3 % (42.0-52.0); LYMPH % 28.8 % (24.0-44.0); MEAN CORPUSCULAR HEMOGLOBIN 27.8 pg (27.0-33.0); MEAN CORPUSCULAR HGB CONC 31.6 g/dl (32.0-36.5); MEAN CORPUSCULAR VOLUME 88.1 fl (80.0-96.0); MONO # 1.2 10^3/uL (0.0-0.8); MONO % 16.6 % (2.0-8.0); NEUTROPHILS # 3.4 10^3/uL (1.5-8.5); NEUTROPHILS % 48.4 % (36.0-66.0); PLATELET COUNT, AUTOMATED 323 10^3/uL (150-450); RED BLOOD COUNT 5.03 10^6/uL (4.30-6.10); WHITE BLOOD COUNT 7.1 10^3/uL (4.0-10.0)
[2021-12-04 20:12] LABS: MAU/CREAT RATIO 378.7 MCG/MG (0.0-30.0)
[2021-12-04 21:14] LABS: HEMOGLOBIN A1c 6.2 %
== END ==
LOC: M PLALAB 15:28
PROVIDERS: ATTEND Physician Assistant
DX: R73.03 Prediabetes (principal); E03.9 Hypothyroidism, unspecified; I10 Essential (primary) hypertension; E78.5 Hyperlipidemia, unspecified

== ENCOUNTER → 2021-12-07 | Outpatient (CLI) | payer OTHER | LOC: M RAD 10:39 | PROVIDERS: ATTEND Urology | DX: N20.0 Calculus of kidney (principal); Z96.0 Presence of urogenital implants ==

== ENCOUNTER → 2021-12-18 | Outpatient (CLI) | payer OTHER, MEDICAID | LOC: M PLAIMG 12:44 | PROVIDERS: ATTEND Physician Assistant | DX: M79.641 Pain in right hand (principal) ==

== ENCOUNTER → 2021-12-25 | Outpatient (CLI) | payer OTHER | LOC: M RAD 15:29 | PROVIDERS: ATTEND Urology | DX: N20.0 Calculus of kidney (principal) ==

== ENCOUNTER → 2022-01-02 | Outpatient (CLI) | payer OTHER, MEDICAID | LOC: M LABSMTC 09:37 | PROVIDERS: ATTEND Anesthesiology | DX: Z01.812 Encounter for preprocedural laboratory examination (principal); Z20.822 Contact with and (suspected) exposure to COVID-19 ==

== ENCOUNTER 2022-01-04 13:23 | Emergency (ER) | payer MEDICAID, OTHER ==
[~2022-01-04] VITALS: Ht 172.7 cm; Wt 138.2 kg
[2022-01-04] MEDS ORDERED: ONDA-84 (13:43)
[2022-01-04] MEDS ORDERED: NS 1,000 ML IV ONE (14:20)
[2022-01-04] MEDS ORDERED: KETOROLAC 30 MG/ML 1ML VIAL IV ONE (14:20)
[2022-01-04] MEDS ORDERED: ONDANSETRON 4MG/2ML VIAL IV ONE (14:20)
[2022-01-04] MEDS ORDERED: diphenhydrAMINE 50MG/ML VIAL (J1200) IV ONE (14:20)
[2022-01-04 15:03] LABS: BASO % 0.6 % (0.0-1.0); EOS # 0.1 10^3/uL (0.0-0.5); EOS % 2.1 % (0.0-3.0); HEMATOCRIT 43.6 % (42.0-52.0); HEMOGLOBIN 13.8 g/dl (13.5-17.5); LYMPH # 1.4 10^3/uL (1.5-5.0); LYMPH % 21.5 % (24.0-44.0); MEAN CORPUSCULAR HEMOGLOBIN 27.2 pg (27.0-33.0); MEAN CORPUSCULAR HGB CONC 31.7 g/dl (32.0-36.5); MEAN CORPUSCULAR VOLUME 85.8 fl (80.0-96.0); MONO % 14.8 % (2.0-8.0); NEUTROPHILS % 60.4 % (36.0-66.0); PLATELET COUNT, AUTOMATED 269 10^3/uL (150-450); RED BLOOD COUNT 5.08 10^6/uL (4.30-6.10); WHITE BLOOD COUNT 6.7 10^3/uL (4.0-10.0)
[2022-01-04 15:26] LABS: CALCIUM LEVEL 8.6 MG/DL (8.5-10.1); CREATININE FOR GFR 1.34 MG/DL (0.70-1.30); GLOMERULAR FILTRATION RATE 59.1 (>56); POTASSIUM SERUM 4.6 MEQ/L (3.5-5.1)
[2022-01-04 15:27] LABS: MAGNESIUM LEVEL 2.2 MG/DL (1.8-2.4)
[2022-01-04 15:48] VITALS: BP 140/80
== END 2022-01-04 16:07 | disposition home or self-care (01) ==
LOC: M ED 13:23
DX: G43.909 Migraine, unspecified, not intractable, without status migrainosus (principal); E66.9 Obesity, unspecified; I50.9 Heart failure, unspecified; I10 Essential (primary) hypertension; E78.5 Hyperlipidemia, unspecified; M54.9 Dorsalgia, unspecified; F90.9 Attention-deficit hyperactivity disorder, unspecified type; F41.9 Anxiety disorder, unspecified; F32.9 Major depressive disorder, single episode, unspecified; G47.33 Obstructive sleep apnea (adult) (pediatric); K21.9 Gastro-esophageal reflux disease without esophagitis; E03.9 Hypothyroidism, unspecified; H40.9 Unspecified glaucoma; J30.89 Other allergic rhinitis; Z86.711 Personal history of pulmonary embolism; Z87.442 Personal history of urinary calculi; Z95.1 Presence of aortocoronary bypass graft; Z79.82 Long term (current) use of aspirin; Z79.899 Other long term (current) drug therapy; Z91.89 Other specified personal risk factors, not elsewhere classified; Z88.5 Allergy status to narcotic agent; Z91.040 Latex allergy status
CPT/HCPCS: 80048; 83735; 85025; 96361; 96374; 96375; 99284; J1200; J1885; J2405

== ENCOUNTER → 2022-01-07 | Outpatient (CLI) | payer OTHER ==
[~2022-01-07] MED LIST changes: +ISOVUE-M 300 61% 15ML VIAL As Ordered ONE; +LIDOCAINE 1% SDV 30ML VIAL As Ordered ONE; +NORCO, ANEXSIA 5/325MG TABLET (HYDROcodone/ACETAMINOPHEN) As Ordered ONE; +ONDA-84; +diazePAM 5MG TABLET As Ordered ONE; +methylPREDNISolone SUSP 40MG/ML 1ML VIAL (DEPO MEDROL) As Ordered ONE
== END ==
LOC: M PAIN 08:30
PROVIDERS: ATTEND Anesthesiology
DX: M51.16 Intervertebral disc disorders with radiculopathy, lumbar region (principal); G47.33 Obstructive sleep apnea (adult) (pediatric); R73.03 Prediabetes; K21.9 Gastro-esophageal reflux disease without esophagitis; G43.909 Migraine, unspecified, not intractable, without status migrainosus; Z86.59 Personal history of other mental and behavioral disorders; Z86.711 Personal history of pulmonary embolism; Z87.891 Personal history of nicotine dependence; Z88.5 Allergy status to narcotic agent; Z91.018 Allergy to other foods; Z91.040 Latex allergy status; Z91.09 Other allergy status, other than to drugs and biological substances; E66.01 Morbid (severe) obesity due to excess calories; Z68.42 Body mass index [BMI] 45.0-49.9, adult; Z79.82 Long term (current) use of aspirin; Z79.899 Other long term (current) drug therapy
CPT/HCPCS: 62323; J1030; Q9967

== ENCOUNTER 2022-01-21 13:36 | Emergency (ER) | payer OTHER ==
[~2022-01-21] VITALS: Ht 172.7 cm; Wt 138.2 kg
[~2022-01-21 13:36] MED LIST changes: -ISOVUE-M 300 61% 15ML VIAL As Ordered ONE; -LIDOCAINE 1% SDV 30ML VIAL As Ordered ONE; -NORCO, ANEXSIA 5/325MG TABLET (HYDROcodone/ACETAMINOPHEN) As Ordered ONE; -diazePAM 5MG TABLET As Ordered ONE; -methylPREDNISolone SUSP 40MG/ML 1ML VIAL (DEPO MEDROL) As Ordered ONE
[2022-01-21] MEDS ORDERED: PERCOCET 5MG/325MG TAB PO ONE (16:30)
[2022-01-21] MEDS ORDERED: tiZANidine 4 MG TAB PO ONE (16:30)
[2022-01-21 17:53] VITALS: BP 89/52
== END 2022-01-21 18:35 | disposition home or self-care (01) ==
LOC: M ED 13:36 → EDBD 13:36 → M ED 18:35
DX: G89.29 Other chronic pain (principal); M54.50 Low back pain, unspecified; J30.89 Other allergic rhinitis; Z79.82 Long term (current) use of aspirin; Z79.899 Other long term (current) drug therapy; Z91.89 Other specified personal risk factors, not elsewhere classified; Z88.5 Allergy status to narcotic agent; Z91.040 Latex allergy status

== ENCOUNTER → 2022-02-04 | Outpatient (REF) | payer OTHER | LOC: M SFHCPLAZ 16:44 | PROVIDERS: ATTEND Physician Assistant | DX: R05.9 Cough, unspecified (principal) ==

== ENCOUNTER 2022-02-14 22:28 | Emergency (ER) | payer OTHER, MEDICAID ==
[~2022-02-14] VITALS: Ht 172.7 cm; Wt 136.4 kg
[2022-02-14 23:32] LABS: HEMOGLOBIN 13.3 g/dl (13.5-17.5); MEAN CORPUSCULAR HEMOGLOBIN 27.6 pg (27.0-33.0); MEAN CORPUSCULAR HGB CONC 31.7 g/dl (32.0-36.5); MEAN CORPUSCULAR VOLUME 87.1 fl (80.0-96.0); PLATELET COUNT, AUTOMATED 255 10^3/uL (150-450); RED BLOOD COUNT 4.82 10^6/uL (4.30-6.10); WHITE BLOOD COUNT 5.2 10^3/uL (4.0-10.0)
[2022-02-14 23:55] LABS: CK-MB VALUE MASS 3.9 NG/ML (<3.6); MB/CK RELATIVE INDEX 1.08 (< OR =4)
[2022-02-14 23:56] LABS: CREATININE FOR GFR 1.34 MG/DL (0.70-1.30); GLOMERULAR FILTRATION RATE 59.1 (>56); POTASSIUM SERUM 3.7 MEQ/L (3.5-5.1)
[2022-02-15 00:07] LABS: ANISOCYTOSIS 1+; ATYPICAL LYMPH 11 % (0-5); BASOPHILS 1 % (0-1); HYPOCHROMASIA 1+; LYMPHOCYTES 30 % (16-44); MONOCYTES 9 % (0-5); NEUTROPHILS 48 % (28-66); PLATELET CLUMPS SMALL AMT; PLATELET ESTIMATE NORMAL (NORMAL)
[2022-02-15 01:15] VITALS: BP 127/81
== END 2022-02-15 03:26 | disposition left against medical advice (07) ==
LOC: M ED 22:28 → EDBD 22:28 → M ED 02-15 03:26
DX: Z53.21 Procedure and treatment not carried out due to patient leaving prior to being seen by health care provider (principal)

== ENCOUNTER → 2022-03-12 | Outpatient (CLI) | payer OTHER | LOC: M PAIN 10:45 | PROVIDERS: ATTEND Anesthesiology | DX: M70.60 Trochanteric bursitis, unspecified hip (principal); M51.16 Intervertebral disc disorders with radiculopathy, lumbar region; G89.29 Other chronic pain; G47.33 Obstructive sleep apnea (adult) (pediatric); R73.03 Prediabetes; K21.9 Gastro-esophageal reflux disease without esophagitis; E03.9 Hypothyroidism, unspecified; G43.909 Migraine, unspecified, not intractable, without status migrainosus; Z86.59 Personal history of other mental and behavioral disorders; Z86.711 Personal history of pulmonary embolism; Z87.891 Personal history of nicotine dependence; Z88.5 Allergy status to narcotic agent; Z91.018 Allergy to other foods; Z91.040 Latex allergy status; Z91.09 Other allergy status, other than to drugs and biological substances; E66.01 Morbid (severe) obesity due to excess calories; Z68.42 Body mass index [BMI] 45.0-49.9, adult; Z79.82 Long term (current) use of aspirin; Z79.899 Other long term (current) drug therapy ==

== ENCOUNTER 2022-04-10 16:48 | Emergency (ER) | payer OTHER ==
[~2022-04-10] VITALS: Ht 172.7 cm; Wt 134.6 kg
[2022-04-10 16:50] VITALS: BP 128/80
== END 2022-04-10 21:29 | disposition left against medical advice (07) ==
LOC: M ED 16:48
DX: Z53.21 Procedure and treatment not carried out due to patient leaving prior to being seen by health care provider (principal)

== ENCOUNTER 2022-04-16 16:40 | Emergency (ER) | payer OTHER ==
[~2022-04-16] VITALS: Ht 172.7 cm; Wt 130.5 kg
[2022-04-16] MEDS ORDERED: NS 1,000 ML IV ONE (18:10)
[2022-04-16] MEDS ORDERED: PROCHLORPERAZINE 10MG 2ML VIAL IV ONE (18:10)
[2022-04-16] MEDS ORDERED: diphenhydrAMINE 50MG/ML VIAL (J1200) IV ONE (18:10)
[2022-04-16] MEDS ORDERED: KETOROLAC 30 MG/ML 1ML VIAL IM ONE (18:10)
[2022-04-16 19:34] LABS: BASO # 0.1 10^3/uL (0.0-0.2); BASO % 0.9 % (0.0-1.0); EOS # 0.1 10^3/uL (0.0-0.5); EOS % 1.4 % (0.0-3.0); HEMATOCRIT 43.1 % (42.0-52.0); HEMOGLOBIN 13.4 g/dl (13.5-17.5); LYMPH # 1.9 10^3/uL (1.5-5.0); LYMPH % 24.5 % (24.0-44.0); MEAN CORPUSCULAR HEMOGLOBIN 26.5 pg (27.0-33.0); MEAN CORPUSCULAR HGB CONC 31.1 g/dl (32.0-36.5); MEAN CORPUSCULAR VOLUME 85.3 fl (80.0-96.0); MONO # 0.9 10^3/uL (0.0-0.8); MONO % 11.9 % (2.0-8.0); NEUTROPHILS # 4.6 10^3/uL (1.5-8.5); NEUTROPHILS % 60.4 % (36.0-66.0); PLATELET COUNT, AUTOMATED 247 10^3/uL (150-450); RED BLOOD COUNT 5.05 10^6/uL (4.30-6.10); WHITE BLOOD COUNT 7.7 10^3/uL (4.0-10.0)
[2022-04-16 19:55] LABS: CALCIUM LEVEL 9.2 MG/DL (8.5-10.1); CREATININE FOR GFR 1.36 MG/DL (0.70-1.30); GLOMERULAR FILTRATION RATE 58.1 (>56); POTASSIUM SERUM 4.5 MEQ/L (3.5-5.1)
[2022-04-16 20:32] VITALS: BP 129/67
== END 2022-04-16 20:40 | disposition home or self-care (01) ==
LOC: M ED 16:40
DX: R51.9 Headache, unspecified (principal); I10 Essential (primary) hypertension; G43.909 Migraine, unspecified, not intractable, without status migrainosus; Z79.82 Long term (current) use of aspirin; Z79.899 Other long term (current) drug therapy; J30.89 Other allergic rhinitis; Z88.5 Allergy status to narcotic agent; Z91.89 Other specified personal risk factors, not elsewhere classified; Z91.040 Latex allergy status
CPT/HCPCS: 80048; 85025; 96361; 96372; 96374; 96375; 99283; J0780; J1200; J1885

== ENCOUNTER → 2022-04-29 | Outpatient (CLI) | payer OTHER | LOC: M RAD 15:10 | PROVIDERS: ATTEND Anesthesiology | DX: M70.62 Trochanteric bursitis, left hip (principal); M16.0 Bilateral primary osteoarthritis of hip ==

== ENCOUNTER 2022-05-17 14:56 | Emergency (ER) | payer MEDICAID, OTHER ==
[~2022-05-17] VITALS: Ht 177.8 cm; Wt 135.9 kg
[2022-05-17] MEDS ORDERED: EMGA120I (15:08)
[2022-05-17 19:15] VITALS: BP 125/70
== END 2022-05-17 19:16 | disposition home or self-care (01) ==
LOC: M ED 14:56
DX: M17.12 Unilateral primary osteoarthritis, left knee (principal); X50.1XXA Overexertion from prolonged static or awkward postures, initial encounter; Y92.099 Unspecified place in other non-institutional residence as the place of occurrence of the external cause; I50.9 Heart failure, unspecified; Z79.82 Long term (current) use of aspirin; Z79.899 Other long term (current) drug therapy; J30.89 Other allergic rhinitis; Z91.89 Other specified personal risk factors, not elsewhere classified; Z88.5 Allergy status to narcotic agent; Z91.040 Latex allergy status

== ENCOUNTER 2022-05-25 14:59 | Emergency (ER) | payer OTHER ==
[~2022-05-25 14:59] MED LIST changes: +EMGA120I
[2022-05-25] MEDS ORDERED: NEOSPORIN OINT 0.9 GM PKT TOP ONE (16:35)
[2022-05-25] MEDS ORDERED: BOOSTRIX/ADACEL VACCINE (DIPHTH/PERTUSS/ACELL/TETANUS) 0.5ML SYR IM ONE (16:35)
[2022-05-25 17:39] VITALS: BP 118/76
== END 2022-05-25 17:41 | disposition home or self-care (01) ==
LOC: M ED 14:59 → EDBD 14:59 → M ED 17:41
DX: S91.204A Unspecified open wound of right lesser toe(s) with damage to nail, initial encounter (principal); S90.416A Abrasion, unspecified lesser toe(s), initial encounter; W01.10XA Fall on same level from slipping, tripping and stumbling with subsequent striking against unspecified object, initial encounter; Y92.099 Unspecified place in other non-institutional residence as the place of occurrence of the external cause; I50.9 Heart failure, unspecified; E78.5 Hyperlipidemia, unspecified; K21.9 Gastro-esophageal reflux disease without esophagitis; G47.33 Obstructive sleep apnea (adult) (pediatric); E03.9 Hypothyroidism, unspecified; F41.9 Anxiety disorder, unspecified; F32.9 Major depressive disorder, single episode, unspecified; Z86.711 Personal history of pulmonary embolism; J30.89 Other allergic rhinitis; Z79.82 Long term (current) use of aspirin; Z79.890 Hormone replacement therapy; Z79.899 Other long term (current) drug therapy; Z88.5 Allergy status to narcotic agent; Z91.040 Latex allergy status; Z91.89 Other specified personal risk factors, not elsewhere classified

== ENCOUNTER 2022-06-10 15:40 | Emergency (ER) | payer OTHER, MEDICAID ==
[~2022-06-10] VITALS: Ht 172.7 cm; Wt 133.8 kg
[2022-06-10 18:12] LABS: BASO # 0.1 10^3/uL (0.0-0.2); BASO % 0.8 % (0.0-1.0); EOS # 0.2 10^3/uL (0.0-0.5); EOS % 1.8 % (0.0-3.0); HEMOGLOBIN 14.6 g/dl (13.5-17.5); LYMPH # 1.8 10^3/uL (1.5-5.0); LYMPH % 19.7 % (24.0-44.0); MEAN CORPUSCULAR HEMOGLOBIN 26.5 pg (27.0-33.0); MEAN CORPUSCULAR HGB CONC 31.1 g/dl (32.0-36.5); MEAN CORPUSCULAR VOLUME 85.5 fl (80.0-96.0); MONO % 11.3 % (2.0-8.0); NEUTROPHILS % 65.4 % (36.0-66.0); PLATELET COUNT, AUTOMATED 266 10^3/uL (150-450); WHITE BLOOD COUNT 9.1 10^3/uL (4.0-10.0)
[2022-06-10 18:39] LABS: CALCIUM LEVEL 9.1 MG/DL (8.5-10.1); CREATININE FOR GFR 1.41 MG/DL (0.70-1.30); GLOMERULAR FILTRATION RATE 55.6 (>56)
[2022-06-10] MEDS ORDERED: METOCLOPRAMIDE INJ 10MG/2ML VIAL (J2765 PER 1) IV ONE (19:40)
[2022-06-10] MEDS ORDERED: NS 1,000 ML IV ONE (19:40)
[2022-06-10] MEDS ORDERED: KETOROLAC 30 MG/ML 1ML VIAL IV ONE (19:40)
[2022-06-10] MEDS ORDERED: REGL10TA6 PO (21:10)
[2022-06-10] MEDS ORDERED: CEPH500C PO (21:10)
[2022-06-10] MEDS ORDERED: CEPHALEXIN 500 MG CAP PO ONE (21:15)
[2022-06-10 21:17] VITALS: BP 152/96
== END 2022-06-10 21:35 | disposition home or self-care (01) ==
LOC: M ED 15:40
DX: G40.909 Epilepsy, unspecified, not intractable, without status epilepticus (principal); L03.114 Cellulitis of left upper limb; E66.9 Obesity, unspecified; I50.9 Heart failure, unspecified; E78.5 Hyperlipidemia, unspecified; K21.9 Gastro-esophageal reflux disease without esophagitis; E03.9 Hypothyroidism, unspecified; F90.9 Attention-deficit hyperactivity disorder, unspecified type; F41.9 Anxiety disorder, unspecified; F32.9 Major depressive disorder, single episode, unspecified; Z87.442 Personal history of urinary calculi; Z86.711 Personal history of pulmonary embolism; G47.33 Obstructive sleep apnea (adult) (pediatric); J30.89 Other allergic rhinitis; Z87.891 Personal history of nicotine dependence; Z82.3 Family history of stroke; Z79.82 Long term (current) use of aspirin; Z79.899 Other long term (current) drug therapy; Z88.5 Allergy status to narcotic agent; Z91.89 Other specified personal risk factors, not elsewhere classified; Z91.040 Latex allergy status
CPT/HCPCS: 73130; 80048; 85025; 96361; 96374; 96375; 99284; J1885; J2765

== ENCOUNTER 2022-06-19 17:17 | Emergency (ER) | payer MEDICAID, OTHER ==
[~2022-06-19] VITALS: Ht 172.7 cm; Wt 135.4 kg
[~2022-06-19 17:17] MED LIST changes: +CEPH500C PO; +REGL10TA6 PO
[2022-06-19] MEDS ORDERED: ONDANSETRON 4MG ORAL DISINTEGRATING TAB PO ONE (19:35)
[2022-06-19] MEDS ORDERED: ACETAMINOPHEN 500 MG TAB PO ONE (19:35)
[2022-06-19 20:38] LABS: RSV AMPLIFICATION NEGATIVE (NEGATIVE)
[2022-06-19 21:21] VITALS: BP 105/60
== END 2022-06-19 21:24 | disposition home or self-care (01) ==
LOC: M ED 17:17
DX: U07.1 COVID-19 (principal); I50.9 Heart failure, unspecified; E78.5 Hyperlipidemia, unspecified; Z86.711 Personal history of pulmonary embolism; Z95.1 Presence of aortocoronary bypass graft; J30.9 Allergic rhinitis, unspecified; Z91.040 Latex allergy status; Z91.89 Other specified personal risk factors, not elsewhere classified; Z88.5 Allergy status to narcotic agent; Z79.82 Long term (current) use of aspirin; Z79.890 Hormone replacement therapy; Z79.899 Other long term (current) drug therapy

== ENCOUNTER → 2022-07-25 | Outpatient (CLI) | payer OTHER | LOC: M PAIN 09:45 | PROVIDERS: ATTEND Nurse Practitioner Family | DX: M25.552 Pain in left hip (principal); G89.29 Other chronic pain; I10 Essential (primary) hypertension; G47.33 Obstructive sleep apnea (adult) (pediatric); R73.03 Prediabetes; K21.9 Gastro-esophageal reflux disease without esophagitis; E03.9 Hypothyroidism, unspecified; G43.909 Migraine, unspecified, not intractable, without status migrainosus; Z86.59 Personal history of other mental and behavioral disorders; Z86.711 Personal history of pulmonary embolism; Z87.891 Personal history of nicotine dependence; Z88.5 Allergy status to narcotic agent; Z91.018 Allergy to other foods; Z91.040 Latex allergy status; Z91.09 Other allergy status, other than to drugs and biological substances; E66.01 Morbid (severe) obesity due to excess calories; Z68.42 Body mass index [BMI] 45.0-49.9, adult; Z79.82 Long term (current) use of aspirin; Z79.890 Hormone replacement therapy; Z79.899 Other long term (current) drug therapy ==

== ENCOUNTER 2022-07-30 15:31 | Emergency (ER) | payer OTHER, MEDICAID ==
[~2022-07-30] VITALS: Ht 172.7 cm; Wt 131.0 kg
[2022-07-30] MEDS ORDERED: KETOROLAC 30 MG/ML 1ML VIAL IV ONE (20:45)
[2022-07-30] MEDS ORDERED: NS 1,000 ML IV ONE (20:45)
[2022-07-30] MEDS ORDERED: ONDANSETRON 4MG 2ML VIAL IV ONE (20:45)
[2022-07-30 22:41] VITALS: BP 135/74
== END 2022-07-30 22:40 | disposition home or self-care (01) ==
LOC: M ED 15:31
DX: G43.909 Migraine, unspecified, not intractable, without status migrainosus (principal); E66.9 Obesity, unspecified; I50.9 Heart failure, unspecified; I11.0 Hypertensive heart disease with heart failure; E78.5 Hyperlipidemia, unspecified; M54.9 Dorsalgia, unspecified; F90.9 Attention-deficit hyperactivity disorder, unspecified type; F41.9 Anxiety disorder, unspecified; F32.9 Major depressive disorder, single episode, unspecified; J30.89 Other allergic rhinitis; G47.33 Obstructive sleep apnea (adult) (pediatric); Z86.711 Personal history of pulmonary embolism; E03.9 Hypothyroidism, unspecified; Z79.82 Long term (current) use of aspirin; Z79.890 Hormone replacement therapy; Z79.899 Other long term (current) drug therapy; Z88.5 Allergy status to narcotic agent; Z91.89 Other specified personal risk factors, not elsewhere classified; Z91.040 Latex allergy status
CPT/HCPCS: 96361; 96374; 96375; 99284; J1885; J2405

== ENCOUNTER 2022-08-19 16:56 | Emergency (ER) | payer MEDICAID, OTHER ==
[~2022-08-19] VITALS: Ht 172.7 cm; Wt 109.1 kg
[2022-08-19] MEDS ORDERED: METOCLOPRAMIDE 10MG TAB PO ONE (21:05)
[2022-08-19 21:40] LABS: BASO % 0.2 % (0.0-1.0); EOS % 0.2 % (0.0-3.0); HEMATOCRIT 50.3 % (42.0-52.0); HEMOGLOBIN 15.5 g/dl (13.5-17.5); LYMPH # 0.9 10^3/uL (1.5-5.0); LYMPH % 9.6 % (24.0-44.0); MEAN CORPUSCULAR HEMOGLOBIN 26.9 pg (27.0-33.0); MEAN CORPUSCULAR HGB CONC 30.8 g/dl (32.0-36.5); MEAN CORPUSCULAR VOLUME 87.2 fl (80.0-96.0); MONO # 0.9 10^3/uL (0.0-0.8); MONO % 8.8 % (2.0-8.0); NEUTROPHILS # 7.8 10^3/uL (1.5-8.5); NEUTROPHILS % 80.8 % (36.0-66.0); PLATELET COUNT, AUTOMATED 297 10^3/uL (150-450); RED BLOOD COUNT 5.77 10^6/uL (4.30-6.10); WHITE BLOOD COUNT 9.7 10^3/uL (4.0-10.0)
[2022-08-19] MEDS ORDERED: ISOVUE-370 76% 100ML VIAL As Ordered ONE (22:09)
[2022-08-19 22:22] LABS: ALBUMIN 3.9 G/DL (3.2-5.2); BILIRUBIN,DIRECT 0.2 MG/DL (<0.4); BILIRUBIN,TOTAL 0.6 MG/DL (0.3-1.2); CALCIUM LEVEL 9.4 MG/DL (8.5-10.1); CREATININE FOR GFR 1.51 MG/DL (0.70-1.30); GLOMERULAR FILTRATION RATE 51.3 (>56); POTASSIUM SERUM 4.6 MMOL/L (3.5-5.1); TOTAL PROTEIN 7.3 G/DL
[2022-08-19] MEDS ORDERED: REGL10TA6 PO (23:38)
[2022-08-19 23:59] VITALS: BP 158/89
== END 2022-08-20 00:01 | disposition home or self-care (01) ==
LOC: M ED 16:56
DX: K56.7 Ileus, unspecified (principal); I50.9 Heart failure, unspecified; E78.5 Hyperlipidemia, unspecified; K21.9 Gastro-esophageal reflux disease without esophagitis; J30.89 Other allergic rhinitis; Z87.442 Personal history of urinary calculi; Z95.1 Presence of aortocoronary bypass graft; Z79.82 Long term (current) use of aspirin; Z79.890 Hormone replacement therapy; Z79.899 Other long term (current) drug therapy; Z91.040 Latex allergy status; Z91.89 Other specified personal risk factors, not elsewhere classified; Z88.5 Allergy status to narcotic agent

== ENCOUNTER → 2022-09-05 | Outpatient (REF) | payer OTHER ==
[2022-09-05 16:36] LABS: BASO # 0.1 10^3/uL (0.0-0.2); EOS # 0.2 10^3/uL (0.0-0.5); EOS % 2.5 % (0.0-3.0); HEMATOCRIT 43.4 % (42.0-52.0); HEMOGLOBIN 13.2 g/dl (13.5-17.5); LYMPH # 1.7 10^3/uL (1.5-5.0); LYMPH % 28.5 % (24.0-44.0); MEAN CORPUSCULAR HEMOGLOBIN 26.6 pg (27.0-33.0); MEAN CORPUSCULAR HGB CONC 30.4 g/dl (32.0-36.5); MEAN CORPUSCULAR VOLUME 87.3 fl (80.0-96.0); MONO % 16.9 % (2.0-8.0); NEUTROPHILS % 50.6 % (36.0-66.0); PLATELET COUNT, AUTOMATED 261 10^3/uL (150-450); RED BLOOD COUNT 4.97 10^6/uL (4.30-6.10)
[2022-09-05 17:28] LABS: ALBUMIN 3.8 G/DL (3.2-5.2); ALKALINE PHOSPHATASE 99 U/L (46-116); ALT/SGPT 30 U/L (7.0-40); AST/SGOT 23 U/L (<34); BILIRUBIN,TOTAL 0.4 MG/DL (0.3-1.2); BLOOD UREA NITROGEN 12 MG/DL (9-23); CALCIUM LEVEL 9.4 MG/DL (8.5-10.1); CARBON DIOXIDE LEVEL 26 MMOL/L (20-31); CHLORIDE LEVEL 102 MMOL/L (98-107); CREATININE FOR GFR 1.27 MG/DL (0.70-1.30); GLOMERULAR FILTRATION RATE > 60.0 (>56); GLUCOSE, FASTING 99 MG/DL (60-100); POTASSIUM SERUM 4.5 MMOL/L (3.5-5.1); SODIUM LEVEL 137 MMOL/L (136-145); TOTAL PROTEIN 6.8 G/DL (5.7-8.2)
== END ==
LOC: M SFHCADAM 13:31
PROVIDERS: ATTEND Physician Assistant
DX: K56.609 Unspecified intestinal obstruction, unspecified as to partial versus complete obstruction (principal)

== ENCOUNTER 2022-09-11 14:46 | Emergency (ER) | payer OTHER ==
[~2022-09-11] VITALS: Ht 172.7 cm; Wt 127.3 kg
[2022-09-11 14:46] VITALS: BP 119/73
== END 2022-09-11 19:05 | disposition left against medical advice (07) ==
LOC: M ED 14:46
DX: Z53.21 Procedure and treatment not carried out due to patient leaving prior to being seen by health care provider (principal)

== ENCOUNTER 2022-09-14 13:55 | Emergency (ER) | payer OTHER ==
[~2022-09-14] VITALS: Ht 172.7 cm; Wt 127.3 kg
[2022-09-14 14:15] VITALS: BP 124/80
[2022-09-14 18:08] LABS: BASO % 0.7 % (0.0-1.0); EOS # 0.1 10^3/uL (0.0-0.5); EOS % 2.6 % (0.0-3.0); HEMATOCRIT 44.9 % (42.0-52.0); HEMOGLOBIN 13.8 g/dl (13.5-17.5); LYMPH # 1.5 10^3/uL (1.5-5.0); LYMPH % 27.7 % (24.0-44.0); MEAN CORPUSCULAR HEMOGLOBIN 27.1 pg (27.0-33.0); MEAN CORPUSCULAR HGB CONC 30.7 g/dl (32.0-36.5); MONO # 0.8 10^3/uL (0.0-0.8); MONO % 14.2 % (2.0-8.0); NEUTROPHILS # 2.9 10^3/uL (1.5-8.5); NEUTROPHILS % 54.2 % (36.0-66.0); PLATELET COUNT, AUTOMATED 267 10^3/uL (150-450); WHITE BLOOD COUNT 5.4 10^3/uL (4.0-10.0)
[2022-09-14 18:22] LABS: ALBUMIN 3.6 G/DL (3.2-5.2); ALKALINE PHOSPHATASE 101 U/L (46-116); ALT/SGPT 26 U/L (7.0-40); AST/SGOT 27 U/L (<34); BILIRUBIN,TOTAL 0.4 MG/DL (0.3-1.2); BLOOD UREA NITROGEN 9 MG/DL (9-23); CALCIUM LEVEL 8.8 MG/DL (8.5-10.1); CARBON DIOXIDE LEVEL 26 MMOL/L (20-31); CHLORIDE LEVEL 103 MMOL/L (98-107); CPK CREATINE PHOSPHOKINASE 341 U/L (46-171); CREATININE FOR GFR 1.17 MG/DL (0.70-1.30); GLOMERULAR FILTRATION RATE > 60.0 (>56); GLUCOSE, FASTING 103 MG/DL (60-100); POTASSIUM SERUM 4.5 MMOL/L (3.5-5.1); SODIUM LEVEL 139 MMOL/L (136-145); TOTAL PROTEIN 6.6 G/DL (5.7-8.2)
== END 2022-09-14 18:55 | disposition home or self-care (01) ==
LOC: M ED 13:55 → EDBD 13:55 → M ED 18:55
DX: R25.1 Tremor, unspecified (principal); I25.10 Atherosclerotic heart disease of native coronary artery without angina pectoris; E03.9 Hypothyroidism, unspecified; J30.89 Other allergic rhinitis; Z79.82 Long term (current) use of aspirin; Z79.890 Hormone replacement therapy; Z79.899 Other long term (current) drug therapy; Z88.5 Allergy status to narcotic agent; Z91.89 Other specified personal risk factors, not elsewhere classified; Z91.040 Latex allergy status

== ENCOUNTER 2022-09-21 11:12 | Emergency (ER) | payer OTHER ==
[~2022-09-21] VITALS: Ht 172.7 cm; Wt 131.8 kg
[2022-09-21] MEDS ORDERED: TRAZ-252 PO (11:33)
[2022-09-21] MEDS ORDERED: TRAM50TA2 PO (11:33)
[2022-09-21] MEDS ORDERED: TRIA1CR80 TOP (11:33)
[2022-09-21 11:52] LABS: BASO % 0.6 % (0.0-1.0); EOS # 0.1 10^3/uL (0.0-0.5); EOS % 2.5 % (0.0-3.0); HEMATOCRIT 45.5 % (42.0-52.0); HEMOGLOBIN 14.2 g/dl (13.5-17.5); LYMPH # 1.1 10^3/uL (1.5-5.0); MEAN CORPUSCULAR HEMOGLOBIN 26.7 pg (27.0-33.0); MEAN CORPUSCULAR HGB CONC 31.2 g/dl (32.0-36.5); MEAN CORPUSCULAR VOLUME 85.7 fl (80.0-96.0); MONO # 0.7 10^3/uL (0.0-0.8); MONO % 13.4 % (2.0-8.0); NEUTROPHILS # 3.3 10^3/uL (1.5-8.5); NEUTROPHILS % 62.1 % (36.0-66.0); PLATELET COUNT, AUTOMATED 271 10^3/uL (150-450); RED BLOOD COUNT 5.31 10^6/uL (4.30-6.10); WHITE BLOOD COUNT 5.2 10^3/uL (4.0-10.0)
[2022-09-21 12:21] LABS: BLOOD UREA NITROGEN 11 MG/DL (9-23); CARBON DIOXIDE LEVEL 26 MMOL/L (20-31); CHLORIDE LEVEL 104 MMOL/L (98-107); CK-MB VALUE MASS 1.6 NG/ML (<3.6); CPK CREATINE PHOSPHOKINASE 259 U/L (46-171); CREATININE FOR GFR 1.07 MG/DL (0.70-1.30); GLOMERULAR FILTRATION RATE > 60.0 (>56); GLUCOSE, FASTING 115 MG/DL (60-100); MB/CK RELATIVE INDEX 0.61 (< OR =4); POTASSIUM SERUM 4.4 MMOL/L (3.5-5.1); SODIUM LEVEL 137 MMOL/L (136-145)
[2022-09-21 13:17] LABS: CK-MB VALUE MASS 1.7 NG/ML (<3.6)
[2022-09-21 13:19] LABS: MB/CK RELATIVE INDEX 0.71 (< OR =4)
[2022-09-21 14:35] VITALS: BP 137/85
== END 2022-09-21 14:37 | disposition home or self-care (01) ==
LOC: M ED 11:12 → EDBD 11:12 → M ED 14:37
DX: R07.9 Chest pain, unspecified (principal); I50.9 Heart failure, unspecified; I10 Essential (primary) hypertension; E78.5 Hyperlipidemia, unspecified; K21.9 Gastro-esophageal reflux disease without esophagitis; F90.9 Attention-deficit hyperactivity disorder, unspecified type; F41.9 Anxiety disorder, unspecified; J30.89 Other allergic rhinitis; Z95.1 Presence of aortocoronary bypass graft; Z87.891 Personal history of nicotine dependence; Z79.82 Long term (current) use of aspirin; Z79.890 Hormone replacement therapy; Z79.899 Other long term (current) drug therapy; Z88.5 Allergy status to narcotic agent; Z91.89 Other specified personal risk factors, not elsewhere classified; Z91.040 Latex allergy status

== ENCOUNTER → 2022-11-18 | Outpatient (CLI) | payer OTHER ==
[~2022-11-18] MED LIST changes: +TRAZ-252 PO; +TRIA1CR80 TOP
== END ==
LOC: M PAIN 14:00
PROVIDERS: ATTEND Nurse Practitioner Family
DX: M46.1 Sacroiliitis, not elsewhere classified (principal); M25.552 Pain in left hip; G89.29 Other chronic pain; I10 Essential (primary) hypertension; G47.33 Obstructive sleep apnea (adult) (pediatric); R73.03 Prediabetes; K21.9 Gastro-esophageal reflux disease without esophagitis; E03.9 Hypothyroidism, unspecified; G43.909 Migraine, unspecified, not intractable, without status migrainosus; Z86.711 Personal history of pulmonary embolism; Z86.59 Personal history of other mental and behavioral disorders; Z87.891 Personal history of nicotine dependence; Z88.5 Allergy status to narcotic agent; Z91.018 Allergy to other foods; Z91.040 Latex allergy status; Z91.09 Other allergy status, other than to drugs and biological substances; E66.01 Morbid (severe) obesity due to excess calories; Z68.41 Body mass index [BMI] 40.0-44.9, adult; Z79.82 Long term (current) use of aspirin; Z79.890 Hormone replacement therapy; Z79.899 Other long term (current) drug therapy

== ENCOUNTER → 2023-01-02 | Outpatient (CLI) | payer OTHER ==
[~2023-01-02] MED LIST changes: +SIMV-254 PO; +TOPI-254 PO; -TOPI50TA9 PO; -ZOCO40TA PO
== END ==
LOC: M PAIN 11:15
PROVIDERS: ATTEND Nurse Practitioner Family
DX: M70.62 Trochanteric bursitis, left hip (principal); G89.29 Other chronic pain; I10 Essential (primary) hypertension; G47.33 Obstructive sleep apnea (adult) (pediatric); R73.03 Prediabetes; E03.9 Hypothyroidism, unspecified; K21.9 Gastro-esophageal reflux disease without esophagitis; G43.909 Migraine, unspecified, not intractable, without status migrainosus; Z86.59 Personal history of other mental and behavioral disorders; Z86.711 Personal history of pulmonary embolism; Z87.891 Personal history of nicotine dependence; Z88.5 Allergy status to narcotic agent; Z91.018 Allergy to other foods; Z91.040 Latex allergy status; Z91.09 Other allergy status, other than to drugs and biological substances; E66.01 Morbid (severe) obesity due to excess calories; Z68.41 Body mass index [BMI] 40.0-44.9, adult; Z79.82 Long term (current) use of aspirin; Z79.890 Hormone replacement therapy; Z79.899 Other long term (current) drug therapy

== ENCOUNTER → 2023-01-16 | Outpatient (CLI) | payer OTHER ==
[~2023-01-16] MED LIST changes: +ARTIDRO4 OU; +FLUT50SP17; -FLUTISP; -POLYOPD OU
== END ==
LOC: M PAIN 14:00
PROVIDERS: ATTEND Nurse Practitioner Family
DX: M70.62 Trochanteric bursitis, left hip (principal); G89.29 Other chronic pain; I10 Essential (primary) hypertension; G47.33 Obstructive sleep apnea (adult) (pediatric); K21.9 Gastro-esophageal reflux disease without esophagitis; E03.9 Hypothyroidism, unspecified; G43.909 Migraine, unspecified, not intractable, without status migrainosus; Z86.59 Personal history of other mental and behavioral disorders; Z87.891 Personal history of nicotine dependence; Z88.5 Allergy status to narcotic agent; Z91.018 Allergy to other foods; Z91.040 Latex allergy status; Z91.09 Other allergy status, other than to drugs and biological substances; E66.01 Morbid (severe) obesity due to excess calories; Z68.41 Body mass index [BMI] 40.0-44.9, adult; Z79.82 Long term (current) use of aspirin; Z79.890 Hormone replacement therapy; Z79.899 Other long term (current) drug therapy

== ENCOUNTER → 2023-01-30 | Outpatient (REF) | payer OTHER ==
[2023-01-30 13:16] LABS: BASO # 0.1 10^3/uL (0.0-0.2); BASO % 0.7 % (0.0-1.0); EOS # 0.1 10^3/uL (0.0-0.5); EOS % 1.3 % (0.0-3.0); HEMATOCRIT 46.3 % (42.0-52.0); HEMOGLOBIN 14.2 g/dl (13.5-17.5); LYMPH # 1.6 10^3/uL (1.5-5.0); LYMPH % 21.4 % (24.0-44.0); MEAN CORPUSCULAR HEMOGLOBIN 27.2 pg (27.0-33.0); MEAN CORPUSCULAR HGB CONC 30.7 g/dl (32.0-36.5); MEAN CORPUSCULAR VOLUME 88.5 fl (80.0-96.0); MONO % 13.2 % (2.0-8.0); NEUTROPHILS # 4.7 10^3/uL (1.5-8.5); NEUTROPHILS % 62.7 % (36.0-66.0); PLATELET COUNT, AUTOMATED 264 10^3/uL (150-450); RED BLOOD COUNT 5.23 10^6/uL (4.30-6.10); WHITE BLOOD COUNT 7.4 10^3/uL (4.0-10.0)
[2023-01-30 13:27] LABS: HEMOGLOBIN A1c 6.2 % (4.0-6.0)
[2023-01-30 13:48] LABS: ALBUMIN 3.5 G/DL (3.2-5.2); ALKALINE PHOSPHATASE 134 U/L (46-116); ALT/SGPT 15 U/L (7.0-40); AST/SGOT 17 U/L (<34); BILIRUBIN,TOTAL 0.4 MG/DL (0.3-1.2); BLOOD UREA NITROGEN 8 MG/DL (9-23); CALCIUM LEVEL 8.9 MG/DL (8.5-10.1); CARBON DIOXIDE LEVEL 28 MMOL/L (20-31); CHLORIDE LEVEL 104 MMOL/L (98-107); CHOLESTEROL LEVEL 138 MG/DL (<200); CHOLESTEROL RISK RATIO 3.59 (<5); CREATININE FOR GFR 1.31 MG/DL (0.70-1.30); GLOMERULAR FILTRATION RATE > 60.0 (>56); GLUCOSE, FASTING 86 MG/DL (60-100); HDL CHOLESTEROL 38.4 MG/DL (>40); IRON (FE) 46 UG/DL (65-175); LDL CHOLESTEROL 70.4 MG/DL (<100); NON-HDL-C 99.6 MG/DL; POTASSIUM SERUM 4.3 MMOL/L (3.5-5.1); SODIUM LEVEL 138 MMOL/L (136-145); TOTAL IRON BINDING CAPACITY 354 UG/DL (250-425); TOTAL PROTEIN 6.8 G/DL (5.7-8.2); TRIGLYCERIDES LEVEL 146 MG/DL (<150)
[2023-01-30 13:50] LABS: FERRITIN 11.1 NG/ML (10.5-307.3); FREE T4 0.64 NG/DL (0.89-1.76); THYROID STIMULATING HORMONE 4.439 uIU/ML (0.55-4.78)
== END ==
LOC: M SFHCADAM 10:32
PROVIDERS: ATTEND Physician Assistant
DX: I25.10 Atherosclerotic heart disease of native coronary artery without angina pectoris (principal); I11.9 Hypertensive heart disease without heart failure; R73.03 Prediabetes; E03.9 Hypothyroidism, unspecified; N18.9 Chronic kidney disease, unspecified; Z12.5 Encounter for screening for malignant neoplasm of prostate

== ENCOUNTER → 2023-02-24 | Outpatient (CLI) | payer OTHER | LOC: M PLAIMG 12:56 | PROVIDERS: ATTEND Physician Assistant Surgical | DX: M17.12 Unilateral primary osteoarthritis, left knee (principal) ==

== ENCOUNTER → 2023-03-03 | Outpatient (CLI) | payer OTHER ==
[~2023-03-03] MED LIST changes: +EMGA120I SC; +FLUT50SP17 NARES; +METO10TA2 PO
== END ==
LOC: M PAIN 14:45
PROVIDERS: ATTEND Nurse Practitioner Family
DX: M70.62 Trochanteric bursitis, left hip (principal); G89.29 Other chronic pain; G47.33 Obstructive sleep apnea (adult) (pediatric); R73.03 Prediabetes; K21.9 Gastro-esophageal reflux disease without esophagitis; E03.9 Hypothyroidism, unspecified; G43.909 Migraine, unspecified, not intractable, without status migrainosus; Z86.59 Personal history of other mental and behavioral disorders; Z86.711 Personal history of pulmonary embolism; Z87.891 Personal history of nicotine dependence; Z88.5 Allergy status to narcotic agent; Z91.018 Allergy to other foods; Z91.040 Latex allergy status; Z91.09 Other allergy status, other than to drugs and biological substances; E66.01 Morbid (severe) obesity due to excess calories; Z68.41 Body mass index [BMI] 40.0-44.9, adult; Z79.82 Long term (current) use of aspirin; Z79.890 Hormone replacement therapy; Z79.899 Other long term (current) drug therapy

== ENCOUNTER 2023-03-06 15:25 | Inpatient (IN) | payer OTHER ==
[~2023-03-06] VITALS: Ht 172.7 cm; Wt 137.1 kg
[~2023-03-06 15:25] MED LIST changes: -EMGA120I SC; -FLUT50SP17 NARES; -METO10TA2 PO
[2023-03-06 17:03] LABS: BASO # 0.1 10^3/uL (0.0-0.2); BASO % 0.9 % (0.0-1.0); EOS # 0.1 10^3/uL (0.0-0.5); HEMATOCRIT 41.8 % (42.0-52.0); HEMOGLOBIN 12.9 g/dl (13.5-17.5); LYMPH # 1.7 10^3/uL (1.5-5.0); LYMPH % 24.5 % (24.0-44.0); MEAN CORPUSCULAR HEMOGLOBIN 27.4 pg (27.0-33.0); MEAN CORPUSCULAR HGB CONC 30.9 g/dl (32.0-36.5); MEAN CORPUSCULAR VOLUME 88.9 fl (80.0-96.0); MONO % 13.9 % (2.0-8.0); NEUTROPHILS # 4.1 10^3/uL (1.5-8.5); NEUTROPHILS % 57.6 % (36.0-66.0); PLATELET COUNT, AUTOMATED 239 10^3/uL (150-450); WHITE BLOOD COUNT 7.1 10^3/uL (4.0-10.0)
[2023-03-06 17:21] LABS: ETHYL ALCOHOL (ETHANOL) < 0.003 % (0.000-0.010)
[2023-03-06 17:23] LABS: BLOOD UREA NITROGEN 9 MG/DL (9-23); CALCIUM LEVEL 7.9 MG/DL (8.5-10.1); CARBON DIOXIDE LEVEL 22 MMOL/L (20-31); CHLORIDE LEVEL 106 MMOL/L (98-107); CREATININE FOR GFR 1.23 MG/DL (0.70-1.30); GLOMERULAR FILTRATION RATE > 60.0 (>56); GLUCOSE, FASTING 108 MG/DL (60-100); POTASSIUM SERUM 4.1 MMOL/L (3.5-5.1); SODIUM LEVEL 137 MMOL/L (136-145)
[2023-03-06 17:25] LABS: INR 1.01; PROTHROMBIN TIME 13.5 SECONDS (12.5-14.5)
[2023-03-06 17:26] LABS: PARTIAL THROMBOPLASTIN TIME 28.6 SECONDS (24.8-34.2)
[2023-03-06] MEDS ORDERED: FLUT50SP17 NARES (18:43)
[2023-03-06] MEDS ORDERED: METO10TA2 PO (18:43)
[2023-03-06] MEDS ORDERED: EMGA120I SC (18:43)
[2023-03-06] MEDS ORDERED: DOCU100C16 PO (18:43)
[2023-03-06] MEDS ORDERED: TOPI-254 PO (18:43)
[2023-03-06] MEDS ORDERED: HOME MED LIST COMPLETE! XX SCH (18:45)
[2023-03-06] MEDS ORDERED: ALBUTEROL 90 MCG/ACT 8GM HFA INHALER INH PRN (18:55)
[2023-03-06] MEDS ORDERED: traZODone 50 MG TAB PO PRN (18:55)
[2023-03-06] MEDS ORDERED: FLUTICASONE PROP 0.05% NASAL SPRAY 16 GM (FLONASE) NARES PRN (18:55)
[2023-03-06] MEDS ORDERED: METOCLOPRAMIDE 10MG TAB PO PRN (18:55)
[2023-03-06] MEDS ORDERED: traMADol 50 MG TAB PO PRN (18:55)
[2023-03-06] MEDS ORDERED: CLOPIDOGREL 75 MG TAB PO SCH (18:55)
[2023-03-06] MEDS ORDERED: NS 1,000 ML IV SCH (19:00)
[2023-03-06] MEDS ORDERED: GLUCOSE 4GM CHEW TABLET PO PRN (19:05)
[2023-03-06] MEDS ORDERED: DEXTROSE 50% 50ML SYRINGE IV PRN (19:05)
[2023-03-06] MEDS ORDERED: GLUCAGON INJ 1MG VIAL SC PRN (19:05)
[2023-03-06 19:11] LABS: ALBUMIN 3.2 G/DL (3.2-5.2); ALKALINE PHOSPHATASE 116 U/L (46-116); ALT/SGPT 17 U/L (7.0-40); AST/SGOT 23 U/L (<34); BILIRUBIN,DIRECT 0.1 MG/DL (<0.4); BILIRUBIN,TOTAL 0.4 MG/DL (0.3-1.2); CHOLESTEROL LEVEL 133 MG/DL (<200); CHOLESTEROL RISK RATIO 4.68 (<5); HDL CHOLESTEROL 28.4 MG/DL (>40); LDL CHOLESTEROL 58.8 MG/DL (<100); NON-HDL-C 104.6 MG/DL; TOTAL PROTEIN 5.8 G/DL (5.7-8.2); TRIGLYCERIDES LEVEL 229 MG/DL (<150)
[2023-03-06 19:16] LABS: VITAMIN B12 LEVEL 251 PG/ML (211-911)
[2023-03-06 19:18] LABS: FOLATE 5.27 NG/ML (>5.4)
[2023-03-06] MEDS: ESCITALOPRAM OXALATE 10 MG TAB (LEXAPRO) PO SCH (20:54)
[2023-03-06] MEDS: FAMOTIDINE 20 MG TAB PO SCH (20:54)
[2023-03-06] MEDS: CETIRIZINE (ZyrTEC) 10 MG TAB PO SCH (20:54)
[2023-03-06] MEDS: busPIRone 10 MG TAB PO SCH (20:55)
[2023-03-06] MEDS: ATORVASTATIN 20 MG TAB PO SCH (20:55)
[2023-03-06] MEDS: tiZANidine 4 MG TAB PO SCH (20:55)
[2023-03-06] MEDS: TOPIRAMATE (TopAMAX) 25 MG TAB PO SCH (20:56)
[2023-03-06] MEDS: GABAPENTIN 300 MG CAP PO SCH (20:56)
[2023-03-06] MEDS: INSULIN LISPRO (NovoLOG) PER UNIT SC SCH (21:00)
[2023-03-07] MEDS: TRIHEXYPHENIDYL 2 MG TAB PO SCH ×3 (00:19→20:39)
[2023-03-07] MEDS: MONTELUKAST 10 MG TAB PO SCH ×2 (00:19→20:39)
[2023-03-07 00:57] LABS: AMPHETAMINES LEVEL URINE NEGATIVE (NEGATIVE); BARBITURATES URINE NEGATIVE (NEGATIVE); BENZODIAZEPINES URINE NEGATIVE (NEGATIVE); CANNABINOIDS URINE NEGATIVE (NEGATIVE); COCAINE METABOLITE URINE NEGATIVE (NEGATIVE); METHADONE URINE NEGATIVE (NEGATIVE); OPIATES URINE NEGATIVE (NEGATIVE); PHENCYCLIDINE URINE NEGATIVE (NEGATIVE)
[2023-03-07 06:02] VITALS: BP 119/65
[2023-03-07] MEDS: LEVOTHYROXINE 25MCG TABLET (0.025MG) PO SCH (06:31)
[2023-03-07 06:48] LABS: BASO # 0.1 10^3/uL (0.0-0.2); BASO % 1.1 % (0.0-1.0); EOS # 0.1 10^3/uL (0.0-0.5); EOS % 2.2 % (0.0-3.0); HEMATOCRIT 42.9 % (42.0-52.0); HEMOGLOBIN 13.4 g/dl (13.5-17.5); LYMPH # 1.8 10^3/uL (1.5-5.0); LYMPH % 33.3 % (24.0-44.0); MEAN CORPUSCULAR HEMOGLOBIN 27.8 pg (27.0-33.0); MEAN CORPUSCULAR HGB CONC 31.2 g/dl (32.0-36.5); MONO # 0.8 10^3/uL (0.0-0.8); MONO % 14.2 % (2.0-8.0); NEUTROPHILS # 2.6 10^3/uL (1.5-8.5); NEUTROPHILS % 48.3 % (36.0-66.0); PLATELET COUNT, AUTOMATED 226 10^3/uL (150-450); RED BLOOD COUNT 4.82 10^6/uL (4.30-6.10); WHITE BLOOD COUNT 5.4 10^3/uL (4.0-10.0)
[2023-03-07 07:06] LABS: BLOOD UREA NITROGEN 10 MG/DL (9-23); CALCIUM LEVEL 8.6 MG/DL (8.5-10.1); CARBON DIOXIDE LEVEL 27 MMOL/L (20-31); CHLORIDE LEVEL 107 MMOL/L (98-107); CREATININE FOR GFR 1.26 MG/DL (0.70-1.30); GLOMERULAR FILTRATION RATE > 60.0 (>56); GLUCOSE, FASTING 106 MG/DL (60-100); PHOSPHORUS LEVEL 3.6 MG/DL (2.5-4.9); POTASSIUM SERUM 4.4 MMOL/L (3.5-5.1); SODIUM LEVEL 139 MMOL/L (136-145)
[2023-03-07] MEDS: INSULIN LISPRO (NovoLOG) PER UNIT SC SCH ×4 (07:30→20:30)
[2023-03-07 07:47] VITALS: BP 136/59
[2023-03-07] MEDS: METOPROLOL TART 12.5 MG PER 1/2 TAB PO SCH (09:00)
[2023-03-07] MEDS: ASPIRIN 81MG ENTERIC TABLET PO SCH (09:28)
[2023-03-07] MEDS: DOCUSATE SODIUM 100MG CAPSULE PO SCH (09:29)
[2023-03-07] MEDS: busPIRone 10 MG TAB PO SCH ×2 (09:29→20:39)
[2023-03-07] MEDS: FAMOTIDINE 20 MG TAB PO SCH ×2 (09:29→20:39)
[2023-03-07] MEDS: OMEPRAZOLE 20MG CAP PO SCH (09:29)
[2023-03-07] MEDS: TOPIRAMATE (TopAMAX) 25 MG TAB PO SCH ×2 (09:29→20:40)
[2023-03-07] MEDS: GABAPENTIN 300 MG CAP PO SCH ×3 (09:29→20:40)
[2023-03-07] MEDS: ESCITALOPRAM OXALATE 10 MG TAB (LEXAPRO) PO SCH ×2 (09:29→20:39)
[2023-03-07] MEDS ORDERED: FOLIC ACID 1 MG in NS 50 ML IV SCH (10:00)
[2023-03-07 15:29] VITALS: BP 138/86
[2023-03-07 20:00] VITALS: BP 120/75
[2023-03-07] MEDS: ENOXAPARIN 40MG/0.4ML SYRINGE (J1650 PER 10MG) SC SCH (20:38)
[2023-03-07] MEDS: CETIRIZINE (ZyrTEC) 10 MG TAB PO SCH (20:39)
[2023-03-07] MEDS: ATORVASTATIN 20 MG TAB PO SCH (20:39)
[2023-03-07] MEDS: tiZANidine 4 MG TAB PO SCH (20:39)
[2023-03-08] VITALS: BP 138/73
[2023-03-08 03:40] VITALS: BP 125/71
[2023-03-08] MEDS: LEVOTHYROXINE 25MCG TABLET (0.025MG) PO SCH (06:21)
[2023-03-08] MEDS: INSULIN LISPRO (NovoLOG) PER UNIT SC SCH (07:30)
[2023-03-08 08:16] VITALS: BP 134/80
[2023-03-08] MEDS: ENOXAPARIN 40MG/0.4ML SYRINGE (J1650 PER 10MG) SC SCH (08:26)
[2023-03-08] MEDS: ASPIRIN 81MG ENTERIC TABLET PO SCH (08:27)
[2023-03-08] MEDS: METOPROLOL TART 12.5 MG PER 1/2 TAB PO SCH ×2 (08:27→08:28)
[2023-03-08] MEDS: ESCITALOPRAM OXALATE 10 MG TAB (LEXAPRO) PO SCH (08:27)
[2023-03-08] MEDS: DOCUSATE SODIUM 100MG CAPSULE PO SCH (08:27)
[2023-03-08] MEDS: GABAPENTIN 300 MG CAP PO SCH (08:27)
[2023-03-08] MEDS: OMEPRAZOLE 20MG CAP PO SCH (08:27)
[2023-03-08 08:28] VITALS: BP 134/80
[2023-03-08] MEDS: TRIHEXYPHENIDYL 2 MG TAB PO SCH (08:28)
[2023-03-08] MEDS: FAMOTIDINE 20 MG TAB PO SCH (08:28)
[2023-03-08] MEDS: TOPIRAMATE (TopAMAX) 25 MG TAB PO SCH (08:28)
[2023-03-08] MEDS: busPIRone 10 MG TAB PO SCH (08:28)
[2023-03-08] MEDS ORDERED: FOLIC ACID 1MG TAB PO SCH (09:00)
[2023-03-08] MEDS ORDERED: FOLI1TAB11 PO (09:43)
== END 2023-03-08 12:10 | disposition home or self-care (01) | DRG 47 ==
LOC: M ED 15:25 → EDBD 15:25 → M ED INP 18:31 → ENRESERV 03-07 05:32 → M PCU 03-07 05:59
PROVIDERS: ADMIT Internal Medicine; ATTEND Internal Medicine
DX: G45.9 Transient cerebral ischemic attack, unspecified (principal); I27.20 Pulmonary hypertension, unspecified; K76.0 Fatty (change of) liver, not elsewhere classified; Z68.42 Body mass index [BMI] 45.0-49.9, adult; G47.33 Obstructive sleep apnea (adult) (pediatric); G43.909 Migraine, unspecified, not intractable, without status migrainosus; E66.9 Obesity, unspecified; J45.909 Unspecified asthma, uncomplicated; E78.5 Hyperlipidemia, unspecified; I12.9 Hypertensive chronic kidney disease with stage 1 through stage 4 chronic kidney disease, or unspecified chronic kidney disease; R00.1 Bradycardia, unspecified; E53.8 Deficiency of other specified B group vitamins; R73.03 Prediabetes; M17.12 Unilateral primary osteoarthritis, left knee; K21.9 Gastro-esophageal reflux disease without esophagitis; G89.29 Other chronic pain; Z91.040 Latex allergy status; Z88.5 Allergy status to narcotic agent; Z88.8 Allergy status to other drugs, medicaments and biological substances; Z79.82 Long term (current) use of aspirin; Z79.899 Other long term (current) drug therapy; I25.10 Atherosclerotic heart disease of native coronary artery without angina pectoris; J44.9 Chronic obstructive pulmonary disease, unspecified; N18.9 Chronic kidney disease, unspecified; E55.9 Vitamin D deficiency, unspecified; F41.9 Anxiety disorder, unspecified; F32.A Depression, unspecified; E03.9 Hypothyroidism, unspecified; Z87.442 Personal history of urinary calculi

== ENCOUNTER → 2023-03-23 | Outpatient (CLI) | payer OTHER ==
[~2023-03-23] MED LIST changes: +EMGA120I SC; +FLUT50SP17 NARES; +FOLI1TAB11 PO; +METO10TA2 PO
[2023-03-23 17:42] LABS: BASO # 0.1 10^3/uL (0.0-0.2); BASO % 0.7 % (0.0-1.0); EOS # 0.1 10^3/uL (0.0-0.5); EOS % 1.6 % (0.0-3.0); HEMATOCRIT 47.3 % (42.0-52.0); HEMOGLOBIN 14.9 g/dl (13.5-17.5); LYMPH # 1.9 10^3/uL (1.5-5.0); LYMPH % 23.5 % (24.0-44.0); MEAN CORPUSCULAR HEMOGLOBIN 27.8 pg (27.0-33.0); MEAN CORPUSCULAR HGB CONC 31.5 g/dl (32.0-36.5); MEAN CORPUSCULAR VOLUME 88.2 fl (80.0-96.0); MONO # 0.9 10^3/uL (0.0-0.8); MONO % 11.4 % (2.0-8.0); NEUTROPHILS % 61.9 % (36.0-66.0); PLATELET COUNT, AUTOMATED 305 10^3/uL (150-450); RED BLOOD COUNT 5.36 10^6/uL (4.30-6.10)
[2023-03-23 17:53] LABS: ERYTHROCYTE SEDIMENTATION RATE 23 mm/hr (0-20)
[2023-03-23 18:04] LABS: URIC ACID 7.5 MG/DL (3.7-9.2)
[2023-03-23 18:05] LABS: C REACTIVE PROTEIN QUANTITATIV < 0.40 MG/DL (<1.0)
== END ==
LOC: M PLALAB 16:04
PROVIDERS: ATTEND Orthopaedic Surgery
DX: M17.12 Unilateral primary osteoarthritis, left knee (principal); M25.562 Pain in left knee

== ENCOUNTER → 2023-03-30 | Outpatient (REF) | payer OTHER ==
[2023-03-30 20:17] LABS: FOLATE 4.4 NG/ML (>5.4)
== END ==
LOC: M SFHCADAM 13:38
PROVIDERS: ATTEND Physician Assistant
DX: E53.8 Deficiency of other specified B group vitamins (principal)

== ENCOUNTER → 2023-05-18 | Outpatient (CLI) | payer OTHER | LOC: M RAD 08:09 | PROVIDERS: ATTEND Physician Assistant | DX: Z12.2 Encounter for screening for malignant neoplasm of respiratory organs (principal); F17.211 Nicotine dependence, cigarettes, in remission ==

== ENCOUNTER → 2023-06-01 | Outpatient (CLI) | payer OTHER | LOC: M PAIN 14:45 | PROVIDERS: ATTEND Nurse Practitioner Family | DX: M70.62 Trochanteric bursitis, left hip (principal); G89.29 Other chronic pain; G47.33 Obstructive sleep apnea (adult) (pediatric); K21.9 Gastro-esophageal reflux disease without esophagitis; G43.909 Migraine, unspecified, not intractable, without status migrainosus; Z86.59 Personal history of other mental and behavioral disorders; Z86.711 Personal history of pulmonary embolism; Z87.891 Personal history of nicotine dependence; Z88.5 Allergy status to narcotic agent; Z91.040 Latex allergy status; Z91.09 Other allergy status, other than to drugs and biological substances; E66.01 Morbid (severe) obesity due to excess calories; Z68.42 Body mass index [BMI] 45.0-49.9, adult; Z79.82 Long term (current) use of aspirin; Z79.899 Other long term (current) drug therapy ==

== ENCOUNTER → 2023-07-13 | Outpatient (CLI) | payer OTHER ==
[~2023-07-13] MED LIST changes: +MECL-209 PO; -MECL1TAB31 PO; +ONDA-84 PO
== END ==
LOC: M SOG 08:01
PROVIDERS: ATTEND Orthopaedic Surgery
DX: M25.572 Pain in left ankle and joints of left foot (principal); S82.402A Unspecified fracture of shaft of left fibula, initial encounter for closed fracture; X58.XXXA Exposure to other specified factors, initial encounter; Y92.9 Unspecified place or not applicable; Y93.9 Activity, unspecified; Y99.9 Unspecified external cause status

== ENCOUNTER → 2023-07-27 | Outpatient (CLI) | payer OTHER | LOC: M PAIN 11:15 | PROVIDERS: ATTEND Nurse Practitioner Family | DX: M70.62 Trochanteric bursitis, left hip (principal); G89.29 Other chronic pain; Z86.16 Personal history of COVID-19; Z80.8 Family history of malignant neoplasm of other organs or systems; Z87.891 Personal history of nicotine dependence; Z88.5 Allergy status to narcotic agent; Z91.040 Latex allergy status; Z91.09 Other allergy status, other than to drugs and biological substances; E66.01 Morbid (severe) obesity due to excess calories; Z68.41 Body mass index [BMI] 40.0-44.9, adult; Z79.82 Long term (current) use of aspirin; Z79.899 Other long term (current) drug therapy ==

== ENCOUNTER → 2023-07-30 | Outpatient (CLI) | payer OTHER | LOC: M SOG 07:47 | PROVIDERS: ATTEND Orthopaedic Surgery | DX: S82.65XD Nondisplaced fracture of lateral malleolus of left fibula, subsequent encounter for closed fracture with routine healing (principal); Z53.9 Procedure and treatment not carried out, unspecified reason ==

== ENCOUNTER → 2023-08-12 | Outpatient (CLI) | payer OTHER, MEDICAID | LOC: M SOG 07:53 | PROVIDERS: ATTEND Orthopaedic Surgery | DX: S82.65XD Nondisplaced fracture of lateral malleolus of left fibula, subsequent encounter for closed fracture with routine healing (principal); Z53.9 Procedure and treatment not carried out, unspecified reason ==

== ENCOUNTER → 2023-08-20 | Outpatient (CLI) | payer OTHER, MEDICAID | LOC: M SOG 16:17 | PROVIDERS: ATTEND Orthopaedic Surgery | DX: S82.65XD Nondisplaced fracture of lateral malleolus of left fibula, subsequent encounter for closed fracture with routine healing (principal) ==

== ENCOUNTER → 2023-10-08 | Outpatient (CLI) | payer OTHER ==
[~2023-10-08] MED LIST changes: -FLUT50SP17; -FLUT50SP17 NARES; +FLUTISP; +FLUTISP NARES; +TOPI-21 PO; -TOPI-254 PO
== END ==
LOC: M SOG 08:24
PROVIDERS: ATTEND Orthopaedic Surgery
DX: Z53.9 Procedure and treatment not carried out, unspecified reason (principal)

== ENCOUNTER → 2023-10-22 | Outpatient (CLI) | payer OTHER, MEDICAID | LOC: M SOG 08:05 | PROVIDERS: ATTEND Orthopaedic Surgery | DX: S82.65XD Nondisplaced fracture of lateral malleolus of left fibula, subsequent encounter for closed fracture with routine healing (principal); Z53.9 Procedure and treatment not carried out, unspecified reason ==

== ENCOUNTER 2023-10-31 17:07 | Emergency (ER) | payer MEDICAID, OTHER ==
[~2023-10-31] VITALS: Ht 172.7 cm; Wt 128.2 kg
[2023-10-31] MEDS ORDERED: TRIH2TAB3 (17:22)
[2023-10-31 17:52] LABS: BASO # 0.1 10^3/uL (0.0-0.2); BASO % 0.6 % (0.0-1.0); EOS # 0.2 10^3/uL (0.0-0.5); EOS % 1.4 % (0.0-3.0); HEMATOCRIT 48.5 % (42.0-52.0); HEMOGLOBIN 15.2 g/dl (13.5-17.5); LYMPH # 1.3 10^3/uL (1.5-5.0); LYMPH % 12.2 % (24.0-44.0); MEAN CORPUSCULAR HEMOGLOBIN 27.4 pg (27.0-33.0); MEAN CORPUSCULAR HGB CONC 31.3 g/dl (32.0-36.5); MEAN CORPUSCULAR VOLUME 87.4 fl (80.0-96.0); MONO # 1.3 10^3/uL (0.0-0.8); MONO % 11.7 % (2.0-8.0); NEUTROPHILS # 7.9 10^3/uL (1.5-8.5); NEUTROPHILS % 73.4 % (36.0-66.0); PLATELET COUNT, AUTOMATED 283 10^3/uL (150-450); RED BLOOD COUNT 5.55 10^6/uL (4.30-6.10); WHITE BLOOD COUNT 10.7 10^3/uL (4.0-10.0)
[2023-10-31 18:03] LABS: INR 1.03; PARTIAL THROMBOPLASTIN TIME 28.4 SECONDS (24.8-34.2); PROTHROMBIN TIME 13.2 SECONDS (12.5-14.5)
[2023-10-31 18:17] LABS: RSV AMPLIFICATION NEGATIVE (NEGATIVE)
[2023-10-31 18:18] LABS: LIPASE 29 U/L (12-53)
[2023-10-31 18:20] LABS: ALBUMIN 3.6 G/DL (3.2-5.2); ALKALINE PHOSPHATASE 137 U/L (46-116); ALT/SGPT 17 U/L (7.0-40); AMYLASE 30 U/L (30-118); AST/SGOT 17 U/L (<34); BILIRUBIN,DIRECT < 0.1 MG/DL (<0.4); BILIRUBIN,TOTAL 0.4 MG/DL (0.3-1.2); BLOOD UREA NITROGEN 12 MG/DL (9-23); CALCIUM LEVEL 9.1 MG/DL (8.5-10.1); CARBON DIOXIDE LEVEL 29 MMOL/L (20-31); CHLORIDE LEVEL 107 MMOL/L (98-107); CREATININE FOR GFR 1.28 MG/DL (0.70-1.30); GLOMERULAR FILTRATION RATE > 60.0 (>56); GLUCOSE, FASTING 98 MG/DL (60-100); POTASSIUM SERUM 4.4 MMOL/L (3.5-5.1); SODIUM LEVEL 140 MMOL/L (136-145); TOTAL PROTEIN 7.1 G/DL (5.7-8.2)
[2023-10-31 19:03] VITALS: BP 127/76; TEMP 97.8; O2SAT 97
[2023-10-31] MEDS ORDERED: ISOVUE-370 76% 100ML VIAL As Ordered ONE (19:41)
[2023-10-31] MEDS ORDERED: BACTRIM 160MG/800MG DS TAB PO ONE (22:15)
[2023-10-31] MEDS ORDERED: KETO10TAB PO (22:15)
[2023-10-31] MEDS ORDERED: BACT800T5 PO (22:15)
[2023-10-31] MEDS ORDERED: FLOM0.4C39 PO (22:15)
== END 2023-10-31 22:28 | disposition home or self-care (01) ==
LOC: M ED 17:07
DX: N39.0 Urinary tract infection, site not specified (principal); N20.1 Calculus of ureter; I25.2 Old myocardial infarction; J45.909 Unspecified asthma, uncomplicated; E03.9 Hypothyroidism, unspecified; G47.33 Obstructive sleep apnea (adult) (pediatric); I10 Essential (primary) hypertension; Z91.040 Latex allergy status; Z91.048 Other nonmedicinal substance allergy status; Z88.5 Allergy status to narcotic agent; Z79.52 Long term (current) use of systemic steroids; Z79.82 Long term (current) use of aspirin; Z79.02 Long term (current) use of antithrombotics/antiplatelets; Z79.83 Long term (current) use of bisphosphonates; Z79.899 Other long term (current) drug therapy
CPT/HCPCS: 36415; 74177; 80048; 80076; 81001; 82150; 83605; 83690; 85025; 85610; 85730; 87088; 87186; 87631; 99284; Q9967

== ENCOUNTER 2023-11-25 22:07 | Inpatient (IN) | payer MEDICAID, OTHER ==
[~2023-11-25] VITALS: Ht 172.7 cm; Wt 116.5 kg
[~2023-11-25 22:07] MED LIST changes: +BACT800T5 PO; -RISP-7 PO; +RISP0.5T82 PO; +TRIH2TAB3
[2023-11-26 00:09] LABS: BASO % 0.4 % (0.0-1.0); EOS # 0.1 10^3/uL (0.0-0.5); HEMATOCRIT 46.9 % (42.0-52.0); HEMOGLOBIN 14.8 g/dl (13.5-17.5); LYMPH # 1.4 10^3/uL (1.5-5.0); LYMPH % 15.3 % (24.0-44.0); MEAN CORPUSCULAR HEMOGLOBIN 27.8 pg (27.0-33.0); MEAN CORPUSCULAR HGB CONC 31.6 g/dl (32.0-36.5); MONO # 1.1 10^3/uL (0.0-0.8); MONO % 11.1 % (2.0-8.0); NEUTROPHILS # 6.7 10^3/uL (1.5-8.5); NEUTROPHILS % 71.2 % (36.0-66.0); PLATELET COUNT, AUTOMATED 244 10^3/uL (150-450); RED BLOOD COUNT 5.33 10^6/uL (4.30-6.10); WHITE BLOOD COUNT 9.4 10^3/uL (4.0-10.0)
[2023-11-26 00:18] LABS: ALBUMIN 4.1 G/DL (3.2-5.2); BILIRUBIN,DIRECT 0.1 MG/DL (<0.4); BILIRUBIN,TOTAL 0.4 MG/DL (0.3-1.2); CALCIUM LEVEL 9.3 MG/DL (8.5-10.1); CREATININE FOR GFR 1.36 MG/DL (0.70-1.30); GLOMERULAR FILTRATION RATE 57.7 (>56); TOTAL PROTEIN 7.4 G/DL (5.7-8.2)
[2023-11-26] MEDS: ONDANSETRON 4MG 2ML VIAL IV ONE (05:05)
[2023-11-26] MEDS: NS 1,000 ML IV SCH ×2 (05:05→08:08)
[2023-11-26] MEDS ORDERED: ISOVUE-370 76% 100ML VIAL As Ordered ONE (05:26)
[2023-11-26] MEDS: MAALOX 30 ML SUSP *UDC PO ONE (05:52)
[2023-11-26] MEDS: PANTOPRAZOLE 40MG VIAL IV ONE (05:52)
[2023-11-26] MEDS: LORazepam 2 MG/ML 1ML VIAL IV STA (06:55)
[2023-11-26 07:25] LABS: RSV AMPLIFICATION NEGATIVE (NEGATIVE)
[2023-11-26] MEDS: ONDANSETRON 4MG 2ML VIAL IV PRN (08:04)
[2023-11-26] MEDS: PANTOPRAZOLE 40MG VIAL IV SCH (08:04)
[2023-11-26 08:53] LABS: CK-MB VALUE MASS 3.6 NG/ML (<3.6)
[2023-11-26 09:04] LABS: CPK CREATINE PHOSPHOKINASE 199 U/L (46-171)
[2023-11-26 09:06] LABS: PROCALCITONIN <0.04 ng/ml
[2023-11-26] MEDS ORDERED: TRAM50TA2 PO (09:20)
[2023-11-26] MEDS ORDERED: LEXA1TAB PO (09:20)
[2023-11-26] MEDS ORDERED: CETI-24 PO (09:20)
[2023-11-26] MEDS ORDERED: ALBU2.5V10 INH (09:41)
[2023-11-26] MEDS ORDERED: ALBUTEROL SULFATE 2.5MG/0.5ML INH NEB SOLN INH PRN (09:45)
[2023-11-26] MEDS ORDERED: HOME MED LIST COMPLETE! XX SCH (09:45)
[2023-11-26 12:39] VITALS: BP 127/84; TEMP 98; O2SAT 94
[2023-11-26] MEDS: HEPARIN SOD (PORCINE) 5000UNITS/ML 1ML VIAL/SYRINGE SC SCH (14:53)
[2023-11-26] MEDS: LEVOTHYROXINE 100MCG (0.1MG) 5ML SDV PF (SOLUTION FORM) IV SCH (14:53)
[2023-11-26 16:02] VITALS: BP 131/66; TEMP 98.2; O2SAT 92
[2023-11-26 19:54] VITALS: BP 115/68; TEMP 97.2; O2SAT 91
[2023-11-26 23:49] VITALS: BP 109/61; TEMP 97.6; O2SAT 90
[2023-11-27 03:55] VITALS: BP 115/57; TEMP 97.4; O2SAT 91
[2023-11-27 05:12] LABS: BASO % 0.1 % (0.0-1.0); EOS # 0.1 10^3/uL (0.0-0.5); HEMATOCRIT 41.6 % (42.0-52.0); HEMOGLOBIN 13.1 g/dl (13.5-17.5); LYMPH # 1.3 10^3/uL (1.5-5.0); LYMPH % 19.1 % (24.0-44.0); MEAN CORPUSCULAR HEMOGLOBIN 28.1 pg (27.0-33.0); MEAN CORPUSCULAR HGB CONC 31.5 g/dl (32.0-36.5); MEAN CORPUSCULAR VOLUME 89.1 fl (80.0-96.0); MONO # 1.3 10^3/uL (0.0-0.8); MONO % 18.5 % (2.0-8.0); NEUTROPHILS # 4.2 10^3/uL (1.5-8.5); NEUTROPHILS % 60.2 % (36.0-66.0); PLATELET COUNT, AUTOMATED 192 10^3/uL (150-450); RED BLOOD COUNT 4.67 10^6/uL (4.30-6.10)
[2023-11-27 05:35] LABS: BLOOD UREA NITROGEN 11 MG/DL (9-23); CALCIUM LEVEL 7.8 MG/DL (8.5-10.1); CARBON DIOXIDE LEVEL 26 MMOL/L (20-31); CHLORIDE LEVEL 114 MMOL/L (98-107); CREATININE FOR GFR 1.06 MG/DL (0.70-1.30); GLOMERULAR FILTRATION RATE > 60.0 (>56); GLUCOSE, FASTING 98 MG/DL (60-100); MAGNESIUM LEVEL 2.1 MG/DL (1.8-2.4); POTASSIUM SERUM 3.9 MMOL/L (3.5-5.1); SODIUM LEVEL 144 MMOL/L (136-145)
[2023-11-27] MEDS: MORPHINE 2 MG/ML 1ML VIAL IV PRN (05:59)
[2023-11-27 07:55] VITALS: BP 141/67; TEMP 98.5; O2SAT 92
[2023-11-27] MEDS ORDERED: E-Z-PAQUE 96% w/w SUSP 176GM BTL As Ordered ONE (08:26)
[2023-11-27] MEDS: LORazepam 2 MG/ML 1ML VIAL IV PRN (10:10)
[2023-11-27 16:12] VITALS: BP 132/70; TEMP 98.3; O2SAT 91
[2023-11-27 18:53] VITALS: BP 133/69; TEMP 97.8; O2SAT 92
[2023-11-27 23:31] VITALS: BP 118/69; TEMP 98.3; O2SAT 96
[2023-11-28 03:22] VITALS: BP 133/75; TEMP 97.9; O2SAT 94
[2023-11-28 05:48] LABS: BASO % 0.3 % (0.0-1.0); EOS # 0.1 10^3/uL (0.0-0.5); EOS % 1.2 % (0.0-3.0); HEMATOCRIT 40.8 % (42.0-52.0); HEMOGLOBIN 12.8 g/dl (13.5-17.5); LYMPH # 1.2 10^3/uL (1.5-5.0); LYMPH % 13.4 % (24.0-44.0); MEAN CORPUSCULAR HEMOGLOBIN 27.8 pg (27.0-33.0); MEAN CORPUSCULAR HGB CONC 31.4 g/dl (32.0-36.5); MEAN CORPUSCULAR VOLUME 88.5 fl (80.0-96.0); MONO # 1.3 10^3/uL (0.0-0.8); MONO % 14.3 % (2.0-8.0); NEUTROPHILS # 6.2 10^3/uL (1.5-8.5); NEUTROPHILS % 70.3 % (36.0-66.0); PLATELET COUNT, AUTOMATED 192 10^3/uL (150-450); RED BLOOD COUNT 4.61 10^6/uL (4.30-6.10); WHITE BLOOD COUNT 8.8 10^3/uL (4.0-10.0)
[2023-11-28 05:49] LABS: BLOOD UREA NITROGEN 10 MG/DL (9-23); CALCIUM LEVEL 8.1 MG/DL (8.5-10.1); CARBON DIOXIDE LEVEL 23 MMOL/L (20-31); CHLORIDE LEVEL 110 MMOL/L (98-107); CREATININE FOR GFR 0.94 MG/DL (0.70-1.30); GLOMERULAR FILTRATION RATE > 60.0 (>56); GLUCOSE, FASTING 90 MG/DL (60-100); POTASSIUM SERUM 4.3 MMOL/L (3.5-5.1); SODIUM LEVEL 140 MMOL/L (136-145)
[2023-11-28 08:07] VITALS: BP 130/80; TEMP 97.1; O2SAT 95
[2023-11-28 11:48] VITALS: BP 122/71; TEMP 97.2; O2SAT 97
[2023-11-28 15:47] VITALS: BP 118/63; TEMP 97.5; O2SAT 99
[2023-11-28] MEDS ORDERED: traZODone 50 MG TAB PO PRN (18:35)
[2023-11-28] MEDS ORDERED: traMADol 50 MG TAB PO PRN (18:35)
[2023-11-28] MEDS ORDERED: ONDANSETRON 4MG TAB PO PRN (18:35)
[2023-11-28] MEDS ORDERED: tiZANidine 4 MG TAB PO PRN (18:35)
[2023-11-28 19:21] VITALS: BP 114/57; TEMP 97.6; O2SAT 97
[2023-11-28] MEDS ORDERED: MONTELUKAST 10 MG TAB PO SCH (21:00)
[2023-11-28] MEDS ORDERED: CETIRIZINE (ZyrTEC) 10 MG TAB PO SCH (21:00)
[2023-11-28] MEDS ORDERED: FAMOTIDINE 20 MG TAB PO SCH (21:00)
[2023-11-28] MEDS ORDERED: TOPIRAMATE (TopAMAX) 25 MG TAB PO SCH (21:00)
[2023-11-28] MEDS ORDERED: busPIRone 10 MG TAB PO SCH (21:00)
[2023-11-28] MEDS ORDERED: TRIHEXYPHENIDYL 2 MG TAB PO SCH (21:00)
[2023-11-28] MEDS ORDERED: ESCITALOPRAM OXALATE 10 MG TAB (LEXAPRO) PO SCH (21:00)
[2023-11-28] MEDS ORDERED: GABAPENTIN 300 MG CAP PO SCH (21:00)
[2023-11-29] MEDS ORDERED: METOPROLOL TART 12.5 MG PER 1/2 TAB PO SCH (09:00)
[2023-11-29] MEDS ORDERED: ATORVASTATIN 20 MG TAB PO SCH (09:00)
[2023-11-29] MEDS ORDERED: ESCITALOPRAM OXALATE 10 MG TAB (LEXAPRO) PO SCH (09:00)
[2023-11-29] MEDS ORDERED: ASPIRIN 81MG ENTERIC TABLET PO SCH (09:00)
[2023-11-29] MEDS ORDERED: DOCUSATE SODIUM 100MG CAPSULE PO SCH (09:00)
[2023-11-29] MEDS ORDERED: OMEPRAZOLE 20MG CAP PO SCH (09:00)
== END 2023-11-28 20:25 | disposition home or self-care (01) | DRG 247 ==
LOC: M ED 22:07 → M ED INP 11-26 08:54 → M PCU 11-26 12:30
PROVIDERS: ADMIT Internal Medicine; ATTEND Internal Medicine
DX: K56.600 Partial intestinal obstruction, unspecified as to cause (principal); L13.0 Dermatitis herpetiformis; K76.0 Fatty (change of) liver, not elsewhere classified; N18.30 Chronic kidney disease, stage 3 unspecified; K52.9 Noninfective gastroenteritis and colitis, unspecified; I25.10 Atherosclerotic heart disease of native coronary artery without angina pectoris; I12.9 Hypertensive chronic kidney disease with stage 1 through stage 4 chronic kidney disease, or unspecified chronic kidney disease; E78.5 Hyperlipidemia, unspecified; G47.33 Obstructive sleep apnea (adult) (pediatric); J44.9 Chronic obstructive pulmonary disease, unspecified; E03.9 Hypothyroidism, unspecified; G43.909 Migraine, unspecified, not intractable, without status migrainosus; E55.9 Vitamin D deficiency, unspecified; F39 Unspecified mood [affective] disorder; M54.9 Dorsalgia, unspecified; G89.29 Other chronic pain; M19.90 Unspecified osteoarthritis, unspecified site; K90.0 Celiac disease; K22.70 Barrett's esophagus without dysplasia; K21.9 Gastro-esophageal reflux disease without esophagitis; Z87.891 Personal history of nicotine dependence; Z86.711 Personal history of pulmonary embolism; Z95.5 Presence of coronary angioplasty implant and graft; Z79.890 Hormone replacement therapy; Z79.899 Other long term (current) drug therapy; Z79.82 Long term (current) use of aspirin; Z88.5 Allergy status to narcotic agent; Z91.040 Latex allergy status; Z91.048 Other nonmedicinal substance allergy status; Z11.52 Encounter for screening for COVID-19

== ENCOUNTER → 2023-12-08 | Outpatient (CLI) | payer OTHER ==
[~2023-12-08] MED LIST changes: +ALBU2.5V10 INH; +CETI-24 PO; +RISP-106 PO; -RISP-9 PO
== END ==
LOC: M PAIN 09:45
PROVIDERS: ATTEND Nurse Practitioner Family
DX: M51.16 Intervertebral disc disorders with radiculopathy, lumbar region (principal); Z79.891 Long term (current) use of opiate analgesic; M70.62 Trochanteric bursitis, left hip; G89.29 Other chronic pain; F32.A Depression, unspecified; F41.9 Anxiety disorder, unspecified; I13.10 Hypertensive heart and chronic kidney disease without heart failure, with stage 1 through stage 4 chronic kidney disease, or unspecified chronic kidney disease; N18.30 Chronic kidney disease, stage 3 unspecified; R73.03 Prediabetes; K22.70 Barrett's esophagus without dysplasia; K21.9 Gastro-esophageal reflux disease without esophagitis; K90.0 Celiac disease; E03.9 Hypothyroidism, unspecified; G43.909 Migraine, unspecified, not intractable, without status migrainosus; E55.9 Vitamin D deficiency, unspecified; M17.12 Unilateral primary osteoarthritis, left knee; Z86.711 Personal history of pulmonary embolism; Z87.891 Personal history of nicotine dependence; Z79.82 Long term (current) use of aspirin; Z79.899 Other long term (current) drug therapy; Z88.5 Allergy status to narcotic agent; Z91.040 Latex allergy status; Z91.048 Other nonmedicinal substance allergy status

== ENCOUNTER → 2023-12-17 | Outpatient (CLI) | payer OTHER | LOC: M PLARAD 14:35 | PROVIDERS: ATTEND Orthopaedic Surgery | DX: M25.462 Effusion, left knee (principal); M17.12 Unilateral primary osteoarthritis, left knee; M71.22 Synovial cyst of popliteal space [Baker], left knee; M22.42 Chondromalacia patellae, left knee; M24.19 Other articular cartilage disorders, other specified site ==

== ENCOUNTER → 2024-01-27 | Outpatient (CLI) | payer OTHER | LOC: M PAIN 13:30 | PROVIDERS: ATTEND Anesthesiology | DX: M51.16 Intervertebral disc disorders with radiculopathy, lumbar region (principal); Z79.891 Long term (current) use of opiate analgesic; M25.552 Pain in left hip; I25.10 Atherosclerotic heart disease of native coronary artery without angina pectoris; E03.9 Hypothyroidism, unspecified; N18.9 Chronic kidney disease, unspecified; E78.5 Hyperlipidemia, unspecified; M17.12 Unilateral primary osteoarthritis, left knee; Z87.891 Personal history of nicotine dependence; Z79.02 Long term (current) use of antithrombotics/antiplatelets; Z79.82 Long term (current) use of aspirin; Z79.890 Hormone replacement therapy; Z79.899 Other long term (current) drug therapy; Z88.5 Allergy status to narcotic agent; Z91.040 Latex allergy status; Z91.048 Other nonmedicinal substance allergy status ==

== ENCOUNTER 2024-02-10 10:37 | Emergency (ER) | payer MEDICAID, OTHER ==
[~2024-02-10] VITALS: Ht 172.7 cm; Wt 130.0 kg
[2024-02-10] MEDS: ACETAMINOPHEN TAB 650MG DOSE (2X325MG) PO ONE (11:41)
[2024-02-10] MEDS: traMADol 50 MG TAB PO ONE (11:44)
[2024-02-10 12:45] VITALS: BP 152/88; TEMP 98; O2SAT 94
== END 2024-02-10 12:45 | disposition home or self-care (01) ==
LOC: M ED 10:37
DX: M54.50 Low back pain, unspecified (principal); I25.2 Old myocardial infarction; G43.909 Migraine, unspecified, not intractable, without status migrainosus; M51.36 Other intervertebral disc degeneration, lumbar region; N18.30 Chronic kidney disease, stage 3 unspecified; Z87.442 Personal history of urinary calculi; Z86.79 Personal history of other diseases of the circulatory system; Z88.5 Allergy status to narcotic agent; Z91.040 Latex allergy status; Z91.09 Other allergy status, other than to drugs and biological substances; Z79.52 Long term (current) use of systemic steroids; Z79.82 Long term (current) use of aspirin; Z79.02 Long term (current) use of antithrombotics/antiplatelets; Z79.891 Long term (current) use of opiate analgesic; Z79.899 Other long term (current) drug therapy

== ENCOUNTER 2024-03-15 17:12 | Emergency (ER) | payer OTHER ==
[~2024-03-15] VITALS: Ht 172.7 cm; Wt 129.5 kg
[~2024-03-15 17:12] MED LIST changes: -BUSP15TA47
[2024-03-15] MEDS ORDERED: BUSP15TA47 (17:29)
[2024-03-15 19:04] VITALS: BP 122/70; TEMP 97.8; O2SAT 98
== END 2024-03-15 19:19 | disposition home or self-care (01) ==
LOC: M ED 17:12 → EDBD 17:12 → M ED 19:19
DX: S63.501A Unspecified sprain of right wrist, initial encounter (principal); W10.1XXA Fall (on)(from) sidewalk curb, initial encounter; E78.5 Hyperlipidemia, unspecified; J45.909 Unspecified asthma, uncomplicated; N18.30 Chronic kidney disease, stage 3 unspecified; K76.0 Fatty (change of) liver, not elsewhere classified; I10 Essential (primary) hypertension; G47.33 Obstructive sleep apnea (adult) (pediatric); Z79.52 Long term (current) use of systemic steroids; Z79.02 Long term (current) use of antithrombotics/antiplatelets; Z79.83 Long term (current) use of bisphosphonates; Z79.899 Other long term (current) drug therapy; Z88.5 Allergy status to narcotic agent; Z91.040 Latex allergy status; Z91.09 Other allergy status, other than to drugs and biological substances; Y92.410 Unspecified street and highway as the place of occurrence of the external cause; Y93.89 Activity, other specified; Y99.9 Unspecified external cause status

== ENCOUNTER → 2024-03-15 | Outpatient (CLI) | payer OTHER ==
[~2024-03-15] MED LIST changes: +BUSP15TA47; +ONDA-282 PO; +ONDA-284; +ONDA-284 PO; -ONDA4TAB6 PO; -ONDA8TAB8; -ONDA8TAB8 PO
[2024-03-15 13:28] LABS: HEMATOCRIT 43.7 % (42.0-52.0); HEMOGLOBIN 13.6 g/dl (13.5-17.5); MEAN CORPUSCULAR HEMOGLOBIN 28.3 pg (27.0-33.0); MEAN CORPUSCULAR HGB CONC 31.1 g/dl (32.0-36.5); PLATELET COUNT, AUTOMATED 239 10^3/uL (150-450); WHITE BLOOD COUNT 6.5 10^3/uL (4.0-10.0)
[2024-03-15 14:07] LABS: CREATININE, URINE 35.2 MG/DL; MAU/CREAT RATIO 39.7 MCG/MG (0.0-30.0)
[2024-03-15 14:08] LABS: CPK CREATINE PHOSPHOKINASE 371 U/L (46-171)
[2024-03-15 14:09] LABS: ALBUMIN 3.4 G/DL (3.2-5.2); ALKALINE PHOSPHATASE 109 U/L (46-116); ALT/SGPT 30 U/L (7.0-40); AST/SGOT 21 U/L (<34); BILIRUBIN,TOTAL 0.3 MG/DL (0.3-1.2); BLOOD UREA NITROGEN 13 MG/DL (9-23); CALCIUM LEVEL 8.9 MG/DL (8.5-10.1); CARBON DIOXIDE LEVEL 28 MMOL/L (20-31); CHLORIDE LEVEL 107 MMOL/L (98-107); CHOLESTEROL LEVEL 133 MG/DL (<200); CHOLESTEROL RISK RATIO 3.67 (<5); CK-MB VALUE MASS 3.5 NG/ML (<3.6); GLOMERULAR FILTRATION RATE > 60.0 (>56); GLUCOSE, FASTING 99 MG/DL (60-100); HDL CHOLESTEROL 36.2 MG/DL (>40); LDL CHOLESTEROL 45.2 MG/DL (<100); MB/CK RELATIVE INDEX 0.94 (< OR =4); NON-HDL-C 96.8 MG/DL; POTASSIUM SERUM 4.4 MMOL/L (3.5-5.1); SODIUM LEVEL 139 MMOL/L (136-145); TOTAL PROTEIN 6.6 G/DL (5.7-8.2); TRIGLYCERIDES LEVEL 258 MG/DL (<150)
[2024-03-15 14:14] LABS: THYROID STIMULATING HORMONE 4.207 uIU/ML (0.55-4.78)
[2024-03-15 14:17] LABS: VITAMIN B12 LEVEL 313 PG/ML (211-911)
[2024-03-15 14:18] LABS: FREE T4 0.76 NG/DL (0.89-1.76)
== END ==
LOC: M PLALAB 09:23
PROVIDERS: ATTEND Family Medicine
DX: G47.33 Obstructive sleep apnea (adult) (pediatric) (principal); R07.9 Chest pain, unspecified; K76.0 Fatty (change of) liver, not elsewhere classified; E03.9 Hypothyroidism, unspecified; R73.03 Prediabetes; I25.10 Atherosclerotic heart disease of native coronary artery without angina pectoris; I11.9 Hypertensive heart disease without heart failure

== ENCOUNTER → 2024-03-28 | Outpatient (CLI) | payer OTHER ==
[~2024-03-28] MED LIST changes: +BUSP15TA47
== END ==
LOC: M PAIN 09:30
PROVIDERS: ATTEND Nurse Practitioner Family
DX: M51.16 Intervertebral disc disorders with radiculopathy, lumbar region (principal); M25.552 Pain in left hip; I11.9 Hypertensive heart disease without heart failure; E03.9 Hypothyroidism, unspecified; N18.30 Chronic kidney disease, stage 3 unspecified; Z86.711 Personal history of pulmonary embolism; Z79.02 Long term (current) use of antithrombotics/antiplatelets; Z79.82 Long term (current) use of aspirin; Z79.891 Long term (current) use of opiate analgesic; Z79.899 Other long term (current) drug therapy; Z88.5 Allergy status to narcotic agent; Z91.040 Latex allergy status; Z91.048 Other nonmedicinal substance allergy status

== ENCOUNTER → 2024-04-28 | Outpatient (CLI) | payer OTHER ==
[~2024-04-28] MED LIST changes: -BUSP15TA47; +BUSP15TA47 PO; +LEVO1TAB39 PO
== END ==
LOC: M PAIN 11:15
PROVIDERS: ATTEND Nurse Practitioner Family
DX: M51.16 Intervertebral disc disorders with radiculopathy, lumbar region (principal); M25.552 Pain in left hip; G89.29 Other chronic pain; F32.A Depression, unspecified; F41.0 Panic disorder [episodic paroxysmal anxiety]; I25.10 Atherosclerotic heart disease of native coronary artery without angina pectoris; I13.10 Hypertensive heart and chronic kidney disease without heart failure, with stage 1 through stage 4 chronic kidney disease, or unspecified chronic kidney disease; N18.30 Chronic kidney disease, stage 3 unspecified; R73.03 Prediabetes; K22.70 Barrett's esophagus without dysplasia; K90.0 Celiac disease; E03.9 Hypothyroidism, unspecified; G43.909 Migraine, unspecified, not intractable, without status migrainosus; M17.11 Unilateral primary osteoarthritis, right knee; E55.9 Vitamin D deficiency, unspecified; J45.909 Unspecified asthma, uncomplicated; Z87.891 Personal history of nicotine dependence; Z79.890 Hormone replacement therapy; Z79.899 Other long term (current) drug therapy; Z79.891 Long term (current) use of opiate analgesic; Z88.5 Allergy status to narcotic agent; Z91.040 Latex allergy status; Z91.048 Other nonmedicinal substance allergy status

== ENCOUNTER 2024-05-08 12:19 | Inpatient (IN) | payer MEDICAID, OTHER ==
[~2024-05-08] VITALS: Ht 172.7 cm; Wt 131.8 kg
[~2024-05-08 12:19] MED LIST changes: -LEVO1TAB39 PO
[2024-05-08 13:43] LABS: VENOUS BASE EXCESS -2.4 (-2.0-2.0); VENOUS HCO3 23.2 MMOL/L (23.0-27.0); VENOUS O2 SATURATION 52.3 % (60.0-80.0); VENOUS PARTIAL PRESSURE CO2 43.1 mmHg (38.0-50.0); VENOUS PARTIAL PRESSURE O2 26.8 mmHg (30.0-50.0); VENOUS PH 7.349 UNITS (7.330-7.430); VENOUS STANDARD HCO3 21.3 MMOL/L; VENOUS TOTAL CO2 24.5 MMOL/L (24.0-28.0)
[2024-05-08] MEDS: ACETAMINOPHEN TAB 650MG DOSE (2X325MG) PO ONE (13:44)
[2024-05-08] MEDS: NS IV STA (13:45)
[2024-05-08] MEDS: CEFEPIME HCL 2 GM in D5W MINI-BAG PLUS 50 ML IV ONE (13:45)
[2024-05-08 13:48] LABS: BASO % 0.3 % (0.0-1.0); EOS # 0.1 10^3/uL (0.0-0.5); EOS % 0.4 % (0.0-3.0); HEMATOCRIT 44.5 % (42.0-52.0); HEMOGLOBIN 14.4 g/dl (13.5-17.5); LYMPH # 0.9 10^3/uL (1.5-5.0); LYMPH % 6.7 % (24.0-44.0); MEAN CORPUSCULAR HEMOGLOBIN 28.1 pg (27.0-33.0); MEAN CORPUSCULAR HGB CONC 32.4 g/dl (32.0-36.5); MEAN CORPUSCULAR VOLUME 86.9 fl (80.0-96.0); MONO % 7.7 % (2.0-8.0); NEUTROPHILS # 11.5 10^3/uL (1.5-8.5); NEUTROPHILS % 84.7 % (36.0-66.0); PLATELET COUNT, AUTOMATED 215 10^3/uL (150-450); RED BLOOD COUNT 5.12 10^6/uL (4.30-6.10); WHITE BLOOD COUNT 13.5 10^3/uL (4.0-10.0)
[2024-05-08 13:54] LABS: APPEARANCE, URINE HAZY (CLEAR); BACTERIA, URINE AUTO 1+ (NEGATIVE); BILIRUBIN, URINE AUTO NEGATIVE (NEGATIVE); BLOOD, URINE BLOOD 2+ (NEGATIVE); COLOR, URINE YELLOW (YELLOW); GLUCOSE, URINE (UA) AUTO NEGATIVE (NEGATIVE); KETONE, URINE AUTO NEGATIVE (NEGATIVE); LEUKOCYTE ESTERASE, URINE AUTO 3+ (NEGATIVE); MUCUS, URINE SMALL (NEGATIVE); NITRITE, URINE AUTO POSITIVE (NEGATIVE); PROTEIN, URINE AUTO 1+ mg/dL (NEGATIVE); RBC, URINE AUTO 65 /HPF (0-3); SPECIFIC GRAVITY URINE AUTO 1.015 (1.002-1.035); SQUAMOUS EPITHELIAL CELL UR AU 0 /HPF (0-6); UROBILINOGEN, URINE AUTO 0.2 mg/dL (0.0-2.0); WBC, URINE AUTO 181 /HPF (0-3)
[2024-05-08 14:13] LABS: C REACTIVE PROTEIN QUANTITATIV < 0.40 MG/DL (<1.0)
[2024-05-08 14:14] LABS: AMYLASE 32 U/L (30-118)
[2024-05-08 14:22] LABS: ALBUMIN 3.9 G/DL (3.2-5.2); ALKALINE PHOSPHATASE 117 U/L (46-116); ALT/SGPT 28 U/L (7.0-40); AST/SGOT 49 U/L (<34); BILIRUBIN,DIRECT 0.1 MG/DL (<0.4); BILIRUBIN,TOTAL 0.5 MG/DL (0.3-1.2); BLOOD UREA NITROGEN 18 MG/DL (9-23); CALCIUM LEVEL 8.7 MG/DL (8.5-10.1); CARBON DIOXIDE LEVEL 24 MMOL/L (20-31); CHLORIDE LEVEL 107 MMOL/L (98-107); CK-MB VALUE MASS 2.3 NG/ML (<3.6); CREATININE FOR GFR 1.05 MG/DL (0.70-1.30); GLOMERULAR FILTRATION RATE > 60.0 (>56); GLUCOSE, FASTING 110 MG/DL (60-100); POTASSIUM SERUM 5.6 MMOL/L (3.5-5.1); SODIUM LEVEL 136 MMOL/L (136-145); TOTAL PROTEIN 7.1 G/DL (5.7-8.2)
[2024-05-08 14:31] LABS: PROCALCITONIN <0.04 ng/ml
[2024-05-08 14:32] LABS: CPK CREATINE PHOSPHOKINASE 224 U/L (46-171); MB/CK RELATIVE INDEX 1.02 (< OR =4)
[2024-05-08] MEDS: VANCOMYCIN HCL 1,000 MG, VIAL MATE ADAPTER 1 EACH in D5W 250 ML IV ONE (14:34)
[2024-05-08 14:42] LABS: INR 1.07; PARTIAL THROMBOPLASTIN TIME 26.9 SECONDS (24.8-34.2); PROTHROMBIN TIME 13.5 SECONDS (12.5-14.5)
[2024-05-08 15:02] LABS: CK-MB VALUE MASS 1.8 NG/ML (<3.6); MB/CK RELATIVE INDEX 0.56 (< OR =4)
[2024-05-08] MEDS ORDERED: HYDR-3715 PO (16:33)
[2024-05-08] MEDS ORDERED: HOME MED LIST COMPLETE! XX SCH (16:35)
[2024-05-08] MEDS ORDERED: ACETAMINOPHEN TAB 650MG DOSE (2X325MG) PO PRN (16:50)
[2024-05-08] MEDS ORDERED: ALBUTEROL SULFATE 2.5MG/0.5ML INH NEB SOLN INH PRN (17:20)
[2024-05-08] MEDS: cefTRIAXone SOD 2 GM in D5W MINI-BAG PLUS 50 ML IV SCH (18:23)
[2024-05-08] MEDS: DOXYCYCLINE HYCLATE 100MG TABLET PO SCH (22:46)
[2024-05-08] MEDS: ESCITALOPRAM OXALATE 10 MG TAB (LEXAPRO) PO SCH (22:46)
[2024-05-08] MEDS: busPIRone 5 MG TAB PO SCH (22:46)
[2024-05-08] MEDS: TOPIRAMATE (TopAMAX) 25 MG TAB PO SCH (22:46)
[2024-05-08] MEDS: FAMOTIDINE 20 MG TAB PO SCH (22:46)
[2024-05-08] MEDS: NORCO, ANEXSIA 5/325MG TABLET (HYDROcodone/ACETAMINOPHEN) PO SCH (22:47)
[2024-05-08] MEDS: DOCUSATE SODIUM 100MG CAPSULE PO SCH (22:47)
[2024-05-08] MEDS: TRIHEXYPHENIDYL 2 MG TAB PO SCH (23:27)
[2024-05-09] VITALS (8 sets, daily range): BP systolic 121–127; BP diastolic 70–84; TEMP 98.9–100.4; O2SAT 92–97
[2024-05-09] MEDS: LEVOTHYROXINE 50MCG TABLET (0.05MG) PO SCH (06:35)
[2024-05-09 07:15] LABS: BASO % 0.3 % (0.0-1.0); HEMATOCRIT 44.5 % (42.0-52.0); HEMOGLOBIN 14.6 g/dl (13.5-17.5); LYMPH % 6.3 % (24.0-44.0); MEAN CORPUSCULAR HEMOGLOBIN 28.6 pg (27.0-33.0); MEAN CORPUSCULAR HGB CONC 32.8 g/dl (32.0-36.5); MEAN CORPUSCULAR VOLUME 87.3 fl (80.0-96.0); MONO # 1.5 10^3/uL (0.0-0.8); MONO % 9.7 % (2.0-8.0); NEUTROPHILS # 12.9 10^3/uL (1.5-8.5); NEUTROPHILS % 83.2 % (36.0-66.0); PLATELET COUNT, AUTOMATED 232 10^3/uL (150-450); WHITE BLOOD COUNT 15.5 10^3/uL (4.0-10.0)
[2024-05-09 07:35] LABS: BLOOD UREA NITROGEN 17 MG/DL (9-23); CALCIUM LEVEL 8.7 MG/DL (8.5-10.1); CARBON DIOXIDE LEVEL 24 MMOL/L (20-31); CHLORIDE LEVEL 107 MMOL/L (98-107); CREATININE FOR GFR 1.05 MG/DL (0.70-1.30); GLOMERULAR FILTRATION RATE > 60.0 (>56); GLUCOSE, FASTING 120 MG/DL (60-100); POTASSIUM SERUM 3.8 MMOL/L (3.5-5.1); SODIUM LEVEL 140 MMOL/L (136-145)
[2024-05-09] MEDS: ESCITALOPRAM OXALATE 10 MG TAB (LEXAPRO) PO SCH (08:14)
[2024-05-09] MEDS: ASPIRIN 81MG ENTERIC TABLET PO SCH (08:14)
[2024-05-09] MEDS: ATORVASTATIN 20 MG TAB PO SCH (08:14)
[2024-05-09] MEDS: MONTELUKAST 10 MG TAB PO SCH (08:14)
[2024-05-09] MEDS: CETIRIZINE (ZyrTEC) 10 MG TAB PO SCH (08:14)
[2024-05-09] MEDS: NYSTATIN 500,000U/5ML SUSP UDC SS SCH (18:46)
[2024-05-10] VITALS (9 sets, daily range): BP systolic 117–121; BP diastolic 62–70; TEMP 98–98.1; O2SAT 92–96
[2024-05-10 05:42] LABS: BASO % 0.3 % (0.0-1.0); EOS # 0.1 10^3/uL (0.0-0.5); EOS % 0.4 % (0.0-3.0); HEMATOCRIT 43.1 % (42.0-52.0); HEMOGLOBIN 13.8 g/dl (13.5-17.5); LYMPH # 1.3 10^3/uL (1.5-5.0); LYMPH % 9.1 % (24.0-44.0); MEAN CORPUSCULAR VOLUME 87.4 fl (80.0-96.0); MONO # 1.8 10^3/uL (0.0-0.8); MONO % 12.6 % (2.0-8.0); NEUTROPHILS # 11.2 10^3/uL (1.5-8.5); NEUTROPHILS % 77.1 % (36.0-66.0); PLATELET COUNT, AUTOMATED 216 10^3/uL (150-450); RED BLOOD COUNT 4.93 10^6/uL (4.30-6.10); WHITE BLOOD COUNT 14.5 10^3/uL (4.0-10.0)
[2024-05-10 05:58] LABS: BLOOD UREA NITROGEN 18 MG/DL (9-23); CALCIUM LEVEL 8.6 MG/DL (8.5-10.1); CARBON DIOXIDE LEVEL 24 MMOL/L (20-31); CHLORIDE LEVEL 110 MMOL/L (98-107); CREATININE FOR GFR 1.02 MG/DL (0.70-1.30); GLOMERULAR FILTRATION RATE > 60.0 (>56); GLUCOSE, FASTING 101 MG/DL (60-100); POTASSIUM SERUM 3.8 MMOL/L (3.5-5.1); SODIUM LEVEL 140 MMOL/L (136-145)
[2024-05-10] MEDS ORDERED: LEVO1TAB39 PO (07:22)
== END 2024-05-10 13:41 | disposition home or self-care (01) | DRG 720 ==
LOC: EDBD 12:19 → M ED 12:19 → M ED INP 16:47 → M PCU 05-09 08:33
PROVIDERS: ADMIT Internal Medicine Nephrology; ATTEND Internal Medicine
DX: A41.9 Sepsis, unspecified organism (principal); Z68.41 Body mass index [BMI] 40.0-44.9, adult; N18.30 Chronic kidney disease, stage 3 unspecified; K76.0 Fatty (change of) liver, not elsewhere classified; E66.01 Morbid (severe) obesity due to excess calories; N39.0 Urinary tract infection, site not specified; Z95.1 Presence of aortocoronary bypass graft; I25.10 Atherosclerotic heart disease of native coronary artery without angina pectoris; J06.9 Acute upper respiratory infection, unspecified; G43.909 Migraine, unspecified, not intractable, without status migrainosus; E03.9 Hypothyroidism, unspecified; E78.5 Hyperlipidemia, unspecified; I12.9 Hypertensive chronic kidney disease with stage 1 through stage 4 chronic kidney disease, or unspecified chronic kidney disease; Z86.711 Personal history of pulmonary embolism; J44.9 Chronic obstructive pulmonary disease, unspecified; K21.9 Gastro-esophageal reflux disease without esophagitis; K22.70 Barrett's esophagus without dysplasia; E55.9 Vitamin D deficiency, unspecified; F41.8 Other specified anxiety disorders; F32.9 Major depressive disorder, single episode, unspecified; M51.36 Other intervertebral disc degeneration, lumbar region; J45.909 Unspecified asthma, uncomplicated; M19.011 Primary osteoarthritis, right shoulder; Z91.040 Latex allergy status; Z88.5 Allergy status to narcotic agent; Z88.8 Allergy status to other drugs, medicaments and biological substances; Z79.82 Long term (current) use of aspirin; Z79.899 Other long term (current) drug therapy; Z91.048 Other nonmedicinal substance allergy status; M54.81 Occipital neuralgia; B96.1 Klebsiella pneumoniae [K. pneumoniae] as the cause of diseases classified elsewhere

== ENCOUNTER 2024-05-12 19:47 | Emergency (ER) | payer OTHER ==
[~2024-05-12] VITALS: Ht 172.7 cm; Wt 134.4 kg
[~2024-05-12 19:47] MED LIST changes: +LEVO1TAB39 PO
[2024-05-13] MEDS ORDERED: NYST-38 PO (01:05)
[2024-05-13] MEDS: NYSTATIN 500,000U/5ML SUSP UDC PO ONE (01:13)
[2024-05-13 01:24] VITALS: BP 127/90; TEMP 97.1; O2SAT 98
== END 2024-05-13 01:25 | disposition home or self-care (01) ==
LOC: M ED 19:47
DX: B37.0 Candidal stomatitis (principal); I10 Essential (primary) hypertension; J44.9 Chronic obstructive pulmonary disease, unspecified; E78.5 Hyperlipidemia, unspecified; F17.200 Nicotine dependence, unspecified, uncomplicated; Z86.79 Personal history of other diseases of the circulatory system; Z88.5 Allergy status to narcotic agent; Z91.040 Latex allergy status; Z91.048 Other nonmedicinal substance allergy status; Z79.52 Long term (current) use of systemic steroids; Z79.82 Long term (current) use of aspirin; Z79.02 Long term (current) use of antithrombotics/antiplatelets; Z79.899 Other long term (current) drug therapy; Z79.83 Long term (current) use of bisphosphonates

== ENCOUNTER 2024-06-05 18:58 | Emergency (ER) | payer OTHER ==
[~2024-06-05] VITALS: Ht 172.7 cm; Wt 120.6 kg
[~2024-06-05 18:58] MED LIST changes: +GABA-1490 PO; -GABA600T4 PO; +NYST-38 PO
[2024-06-05] MEDS: NS 1,000 ML IV ONE (20:20)
[2024-06-05] MEDS: METOCLOPRAMIDE INJ 10MG/2ML VIAL IV ONE (20:21)
[2024-06-05 21:01] LABS: ALBUMIN 3.6 G/DL (3.2-5.2); ALKALINE PHOSPHATASE 127 U/L (46-116); ALT/SGPT 17 U/L (7.0-40); AST/SGOT 14 U/L (<34); BILIRUBIN,TOTAL 0.7 MG/DL (0.3-1.2); BLOOD UREA NITROGEN 13 MG/DL (9-23); CALCIUM LEVEL 8.8 MG/DL (8.5-10.1); CARBON DIOXIDE LEVEL 27 MMOL/L (20-31); CHLORIDE LEVEL 109 MMOL/L (98-107); CREATININE FOR GFR 1.24 MG/DL (0.70-1.30); GLOMERULAR FILTRATION RATE > 60.0 (>56); GLUCOSE, FASTING 106 MG/DL (60-100); POTASSIUM SERUM 3.7 MMOL/L (3.5-5.1); SODIUM LEVEL 142 MMOL/L (136-145); TOTAL PROTEIN 6.9 G/DL (5.7-8.2)
[2024-06-05 21:37] LABS: BASO % 0.6 % (0.0-1.0); EOS # 0.1 10^3/uL (0.0-0.5); EOS % 1.8 % (0.0-3.0); HEMATOCRIT 44.4 % (42.0-52.0); HEMOGLOBIN 14.5 g/dl (13.5-17.5); LYMPH # 2.1 10^3/uL (1.5-5.0); LYMPH % 32.2 % (24.0-44.0); MEAN CORPUSCULAR HEMOGLOBIN 28.6 pg (27.0-33.0); MEAN CORPUSCULAR HGB CONC 32.7 g/dl (32.0-36.5); MEAN CORPUSCULAR VOLUME 87.6 fl (80.0-96.0); MONO # 1.2 10^3/uL (0.0-0.8); NEUTROPHILS # 3.1 10^3/uL (1.5-8.5); NEUTROPHILS % 47.1 % (36.0-66.0); PLATELET COUNT, AUTOMATED 213 10^3/uL (150-450); RED BLOOD COUNT 5.07 10^6/uL (4.30-6.10); WHITE BLOOD COUNT 6.6 10^3/uL (4.0-10.0)
[2024-06-05] MEDS ORDERED: MIRA3350 PO (21:47)
[2024-06-05 22:05] VITALS: BP 134/99; TEMP 97.1; O2SAT 97
== END 2024-06-05 22:08 | disposition home or self-care (01) ==
LOC: EDBD 18:58 → M ED 18:58
DX: K59.00 Constipation, unspecified (principal); N20.1 Calculus of ureter; I10 Essential (primary) hypertension; N18.9 Chronic kidney disease, unspecified; F90.9 Attention-deficit hyperactivity disorder, unspecified type; F41.9 Anxiety disorder, unspecified; G43.909 Migraine, unspecified, not intractable, without status migrainosus; Z88.5 Allergy status to narcotic agent; Z91.040 Latex allergy status; Z91.048 Other nonmedicinal substance allergy status; Z79.52 Long term (current) use of systemic steroids; Z79.82 Long term (current) use of aspirin; Z79.02 Long term (current) use of antithrombotics/antiplatelets; Z79.83 Long term (current) use of bisphosphonates; Z79.899 Other long term (current) drug therapy
CPT/HCPCS: 74018; 80053; 85025; 96361; 96374; 99284; J2765

== ENCOUNTER → 2024-07-01 | Outpatient (CLI) | payer OTHER ==
[~2024-07-01] MED LIST changes: +GABA-1172 PO; -GABA-282 PO; +MIRA3350 PO
== END ==
LOC: M PAIN 11:30
PROVIDERS: ATTEND Nurse Practitioner Family
DX: M51.16 Intervertebral disc disorders with radiculopathy, lumbar region (principal); Z79.891 Long term (current) use of opiate analgesic; M25.552 Pain in left hip; G89.29 Other chronic pain; F32.A Depression, unspecified; F41.9 Anxiety disorder, unspecified; I25.10 Atherosclerotic heart disease of native coronary artery without angina pectoris; I13.10 Hypertensive heart and chronic kidney disease without heart failure, with stage 1 through stage 4 chronic kidney disease, or unspecified chronic kidney disease; E78.5 Hyperlipidemia, unspecified; G47.33 Obstructive sleep apnea (adult) (pediatric); N18.30 Chronic kidney disease, stage 3 unspecified; R73.03 Prediabetes; K22.70 Barrett's esophagus without dysplasia; K21.9 Gastro-esophageal reflux disease without esophagitis; K90.0 Celiac disease; E03.9 Hypothyroidism, unspecified; G43.909 Migraine, unspecified, not intractable, without status migrainosus; E55.9 Vitamin D deficiency, unspecified; J45.909 Unspecified asthma, uncomplicated; J44.9 Chronic obstructive pulmonary disease, unspecified; Z87.891 Personal history of nicotine dependence; Z79.82 Long term (current) use of aspirin; Z79.899 Other long term (current) drug therapy; Z79.890 Hormone replacement therapy; Z88.5 Allergy status to narcotic agent; Z91.040 Latex allergy status; Z91.048 Other nonmedicinal substance allergy status

== ENCOUNTER 2024-07-25 11:17 | Emergency (ER) | payer MEDICAID, OTHER ==
[~2024-07-25] VITALS: Ht 172.7 cm; Wt 124.8 kg
[~2024-07-25 11:17] MED LIST changes: -LIDO1CRE2 EXT; +LIDO4CRE12 EXT
[2024-07-25] MEDS ORDERED: DEBR6.5S4 AS (15:10)
[2024-07-25 15:20] VITALS: BP 120/66; TEMP 98.1; O2SAT 98
== END 2024-07-25 15:22 | disposition home or self-care (01) ==
LOC: M ED 11:17
DX: H92.02 Otalgia, left ear (principal); H61.22 Impacted cerumen, left ear; I10 Essential (primary) hypertension; E78.5 Hyperlipidemia, unspecified; G47.33 Obstructive sleep apnea (adult) (pediatric); N18.30 Chronic kidney disease, stage 3 unspecified; F90.9 Attention-deficit hyperactivity disorder, unspecified type; Z88.5 Allergy status to narcotic agent; Z91.040 Latex allergy status; Z91.048 Other nonmedicinal substance allergy status; Z86.79 Personal history of other diseases of the circulatory system; Z79.52 Long term (current) use of systemic steroids; Z79.82 Long term (current) use of aspirin; Z79.02 Long term (current) use of antithrombotics/antiplatelets; Z79.899 Other long term (current) drug therapy; Z79.83 Long term (current) use of bisphosphonates

== ENCOUNTER 2024-08-16 09:35 | Emergency (ER) | payer MEDICAID, OTHER ==
[~2024-08-16] VITALS: Ht 172.7 cm; Wt 134.2 kg
[~2024-08-16 09:35] MED LIST changes: +DEBR6.5S4 AS
[2024-08-16 09:40] VITALS: TEMP 96.3
[2024-08-16 11:59] LABS: BASO % 0.5 % (0.0-1.0); EOS # 0.2 10^3/uL (0.0-0.5); EOS % 2.2 % (0.0-3.0); HEMATOCRIT 46.4 % (42.0-52.0); HEMOGLOBIN 14.8 g/dl (13.5-17.5); LYMPH # 2.2 10^3/uL (1.5-5.0); LYMPH % 27.8 % (24.0-44.0); MEAN CORPUSCULAR HGB CONC 31.9 g/dl (32.0-36.5); MONO # 1.3 10^3/uL (0.0-0.8); MONO % 16.1 % (2.0-8.0); NEUTROPHILS # 4.2 10^3/uL (1.5-8.5); PLATELET COUNT, AUTOMATED 220 10^3/uL (150-450)
[2024-08-16 12:09] LABS: LIPASE 42 U/L (12-53)
[2024-08-16 12:11] LABS: ALBUMIN 3.4 G/DL (3.2-5.2); ALKALINE PHOSPHATASE 129 U/L (40-129); ALT/SGPT 18 U/L (7.0-40); AST/SGOT 17 U/L (<34); BILIRUBIN,DIRECT < 0.1 MG/DL (<0.4); BILIRUBIN,TOTAL 0.3 MG/DL (0.3-1.2)
[2024-08-16] MEDS ORDERED: ISOVUE-370 76% 100ML VIAL As Ordered ONE (13:01)
[2024-08-16] MEDS ORDERED: CEFD300C PO (14:34)
[2024-08-16 14:42] VITALS: BP 121/65; O2SAT 97
== END 2024-08-16 14:45 | disposition home or self-care (01) ==
LOC: M ED 09:35
DX: N20.1 Calculus of ureter (principal); N18.30 Chronic kidney disease, stage 3 unspecified; E03.9 Hypothyroidism, unspecified; Z87.442 Personal history of urinary calculi; Z88.5 Allergy status to narcotic agent; Z91.040 Latex allergy status; Z91.048 Other nonmedicinal substance allergy status; Z79.52 Long term (current) use of systemic steroids; Z79.82 Long term (current) use of aspirin; Z79.02 Long term (current) use of antithrombotics/antiplatelets; Z79.2 Long term (current) use of antibiotics; Z79.899 Other long term (current) drug therapy
CPT/HCPCS: 36415; 69210; 74177; 80047; 80076; 81001; 83690; 85025; 87086; 99204; 99284; Q9967

== ENCOUNTER 2024-09-20 17:41 | Emergency (ER) | payer MEDICAID, OTHER ==
[~2024-09-20] VITALS: Ht 172.7 cm; Wt 127.3 kg
[~2024-09-20 17:41] MED LIST changes: +CEFD300C PO
[2024-09-21] MEDS: NORCO, ANEXSIA 5/325MG TABLET (HYDROcodone/ACETAMINOPHEN) PO ONE (07:14)
[2024-09-21 10:02] VITALS: BP 127/63; TEMP 97.5; O2SAT 95
== END 2024-09-21 10:12 | disposition home or self-care (01) ==
LOC: EDBD 17:41 → M ED 17:41
DX: M25.562 Pain in left knee (principal); E78.5 Hyperlipidemia, unspecified; I10 Essential (primary) hypertension; G47.30 Sleep apnea, unspecified; Z86.711 Personal history of pulmonary embolism; Z88.5 Allergy status to narcotic agent; Z91.040 Latex allergy status; Z91.048 Other nonmedicinal substance allergy status; Z79.899 Other long term (current) drug therapy; Z79.52 Long term (current) use of systemic steroids; Z79.02 Long term (current) use of antithrombotics/antiplatelets; Z79.82 Long term (current) use of aspirin

== ENCOUNTER 2024-10-28 08:09 | Emergency (ER) | payer OTHER ==
[~2024-10-28] VITALS: Ht 172.7 cm; Wt 129.5 kg
[2024-10-28] MEDS ORDERED: SALMDISK (08:25)
[2024-10-28] MEDS ORDERED: GABA-1490 (08:25)
[2024-10-28] MEDS: ACETAMINOPHEN 325 MG TAB PO ONE (09:10)
[2024-10-28 09:39] VITALS: BP 135/75; TEMP 97.8; O2SAT 98
== END 2024-10-28 09:43 | disposition home or self-care (01) ==
LOC: M ED 08:09
DX: R20.2 Paresthesia of skin (principal); G56.21 Lesion of ulnar nerve, right upper limb; I10 Essential (primary) hypertension; K21.9 Gastro-esophageal reflux disease without esophagitis; N18.30 Chronic kidney disease, stage 3 unspecified; E03.9 Hypothyroidism, unspecified; G43.909 Migraine, unspecified, not intractable, without status migrainosus; F90.9 Attention-deficit hyperactivity disorder, unspecified type; Z86.711 Personal history of pulmonary embolism; Z91.040 Latex allergy status; Z91.048 Other nonmedicinal substance allergy status; Z88.5 Allergy status to narcotic agent; Z79.52 Long term (current) use of systemic steroids; Z79.82 Long term (current) use of aspirin; Z79.02 Long term (current) use of antithrombotics/antiplatelets; Z79.4 Long term (current) use of insulin; Z79.899 Other long term (current) drug therapy

== ENCOUNTER 2024-11-23 15:00 | Emergency (ER) | payer MEDICAID, OTHER ==
[~2024-11-23] VITALS: Ht 172.7 cm; Wt 127.3 kg
[~2024-11-23 15:00] MED LIST changes: +MINO100C4 PO; +SALMDISK
[2024-11-23] MEDS: ANEXSIA, NORCO 7.5MG/325MG TABLET(HYDROCODONE/APAP) PO ONE (23:38)
[2024-11-23] MEDS: NORCO 5/325MG TABLET (HOME DOSE PACK) PO ONE (23:39)
[2024-11-23 23:45] VITALS: BP 128/70; TEMP 98; O2SAT 99
== END 2024-11-24 00:03 | disposition home or self-care (01) ==
LOC: M ED 15:00
DX: G89.29 Other chronic pain (principal); M54.50 Low back pain, unspecified; E78.5 Hyperlipidemia, unspecified; E03.9 Hypothyroidism, unspecified; J45.909 Unspecified asthma, uncomplicated; K21.9 Gastro-esophageal reflux disease without esophagitis; Z88.5 Allergy status to narcotic agent; Z91.048 Other nonmedicinal substance allergy status; Z91.040 Latex allergy status; Z79.899 Other long term (current) drug therapy; Z79.890 Hormone replacement therapy

== ENCOUNTER → 2024-11-28 | Outpatient (CLI) | payer OTHER | LOC: M PAIN 11:00 | PROVIDERS: ATTEND Nurse Practitioner Family | DX: M51.16 Intervertebral disc disorders with radiculopathy, lumbar region (principal); G89.29 Other chronic pain; Z79.891 Long term (current) use of opiate analgesic; M25.552 Pain in left hip; F32.A Depression, unspecified; F41.9 Anxiety disorder, unspecified; I25.10 Atherosclerotic heart disease of native coronary artery without angina pectoris; I13.10 Hypertensive heart and chronic kidney disease without heart failure, with stage 1 through stage 4 chronic kidney disease, or unspecified chronic kidney disease; E78.5 Hyperlipidemia, unspecified; G47.33 Obstructive sleep apnea (adult) (pediatric); N18.30 Chronic kidney disease, stage 3 unspecified; R73.03 Prediabetes; K22.70 Barrett's esophagus without dysplasia; K21.9 Gastro-esophageal reflux disease without esophagitis; K90.0 Celiac disease; E03.9 Hypothyroidism, unspecified; G43.909 Migraine, unspecified, not intractable, without status migrainosus; E55.9 Vitamin D deficiency, unspecified; J45.909 Unspecified asthma, uncomplicated; J44.9 Chronic obstructive pulmonary disease, unspecified; Z87.891 Personal history of nicotine dependence; Z79.82 Long term (current) use of aspirin; Z79.899 Other long term (current) drug therapy; Z79.890 Hormone replacement therapy; Z88.5 Allergy status to narcotic agent; Z91.040 Latex allergy status; Z91.048 Other nonmedicinal substance allergy status ==

== ENCOUNTER 2024-12-23 15:17 | Inpatient (IN) | payer OTHER ==
[~2024-12-23] VITALS: Ht 172.7 cm; Wt 135.0 kg
[~2024-12-23 15:17] MED LIST changes: -SALMDISK; +SALMDISK INH
[2024-12-23 16:01] LABS: BASO % 0.2 % (0.0-1.0); EOS % 0.1 % (0.0-3.0); HEMATOCRIT 43.6 % (42.0-52.0); HEMOGLOBIN 14.4 g/dl (13.5-17.5); LYMPH # 1.3 10^3/uL (1.5-5.0); LYMPH % 7.2 % (24.0-44.0); MEAN CORPUSCULAR HEMOGLOBIN 29.4 pg (27.0-33.0); MEAN CORPUSCULAR VOLUME 89.2 fl (80.0-96.0); MONO # 1.7 10^3/uL (0.0-0.8); MONO % 9.7 % (2.0-8.0); NEUTROPHILS # 14.7 10^3/uL (1.5-8.5); NEUTROPHILS % 82.2 % (36.0-66.0); PLATELET COUNT, AUTOMATED 235 10^3/uL (150-450); RED BLOOD COUNT 4.89 10^6/uL (4.30-6.10); WHITE BLOOD COUNT 17.9 10^3/uL (4.0-10.0)
[2024-12-23 16:20] LABS: ALBUMIN 3.4 G/DL (3.2-5.2); ALKALINE PHOSPHATASE 106 U/L (40-129); ALT/SGPT 22 U/L (7.0-40); AST/SGOT 30 U/L (<34); BILIRUBIN,DIRECT 0.2 MG/DL (<0.4); BILIRUBIN,TOTAL 0.6 MG/DL (0.3-1.2); BLOOD UREA NITROGEN 15 MG/DL (9-23); CALCIUM LEVEL 8.6 MG/DL (8.5-10.1); CARBON DIOXIDE LEVEL 25 MMOL/L (20-31); CHLORIDE LEVEL 105 MMOL/L (98-107); CK-MB VALUE MASS 4.1 NG/ML (<3.6); CREATININE FOR GFR 1.26 MG/DL (0.70-1.30); GLOMERULAR FILTRATION RATE > 60.0 (>56); GLUCOSE, FASTING 95 MG/DL (60-100); POTASSIUM SERUM 4.2 MMOL/L (3.5-5.1); SODIUM LEVEL 139 MMOL/L (136-145); TOTAL PROTEIN 6.8 G/DL (5.7-8.2)
[2024-12-23 16:21] LABS: FREE T4 0.65 NG/DL (0.89-1.76)
[2024-12-23] MEDS ORDERED: ISOVUE-370 76% 100ML VIAL As Ordered ONE (16:21)
[2024-12-23 16:22] LABS: THYROID STIMULATING HORMONE 6.993 uIU/ML (0.55-4.78)
[2024-12-23 16:23] LABS: CPK CREATINE PHOSPHOKINASE 712 U/L (46-171); MB/CK RELATIVE INDEX 0.57 (< OR =4)
[2024-12-23 16:38] LABS: INR 1.03; PARTIAL THROMBOPLASTIN TIME 28.2 SECONDS (24.8-34.2); PROTHROMBIN TIME 13.8 SECONDS (12.5-14.5)
[2024-12-23] MEDS: NS 500 ML IV ONE (17:03)
[2024-12-23 17:25] LABS: CK-MB VALUE MASS 4.8 NG/ML (<3.6)
[2024-12-23 17:33] LABS: MB/CK RELATIVE INDEX 0.57 (< OR =4)
[2024-12-23 17:35] LABS: MAGNESIUM LEVEL 1.9 MG/DL (1.8-2.4); PHOSPHORUS LEVEL 3.6 MG/DL (2.5-4.9)
[2024-12-23 18:38] VITALS: O2SAT 88
[2024-12-23] MEDS ORDERED: cefTRIAXone SOD 1 GM in DEXTROSE 5% (D5W) ADV/MINI-BAG 50 ML IV ONE (18:40)
[2024-12-23] MEDS ORDERED: ACETAMINOPHEN 325 MG TAB PO PRN (19:00)
[2024-12-23] MEDS ORDERED: ALBUTEROL SULFATE 2.5MG/0.5ML INH NEB SOLN NEB PRN (19:05)
[2024-12-23 19:57] LABS: KETONE, URINE AUTO RFX NEGATIVE (NEGATIVE); MUCUS, URINE RFX LARGE (NEGATIVE); NITRITE, URINE AUTO RFX NEGATIVE (NEGATIVE); RBC, URINE AUTO RFX 127 /HPF (0-3); SQUAM EPITHELIAL CELL UR AURFX 0 /HPF (0-6); WBC, URINE AUTO RFX 0 /HPF (0-3); YEAST LIKE CELL URINE AUTO RFX SMALL
[2024-12-23] MEDS: ADVAIR HFA 230/21MCG INHALER INH SCH (20:00)
[2024-12-23] MEDS: IPRATROPIUM 0.5MG/ALBUTEROL 2.5MG INH SOL UD 3ML (DUONEB) NEB ONE (20:06)
[2024-12-23] MEDS: cefTRIAXone SOD 2 GM in DEXTROSE 5% (D5W) ADV/MINI-BAG 50 ML IV ONE (20:06)
[2024-12-23 20:19] LABS: LEUKOCYTE ESTERASE UR AUTO RFX TRACE (NEGATIVE)
[2024-12-23] MEDS ORDERED: POLY17PO18 PO (20:50)
[2024-12-23] MEDS ORDERED: NYST100084 TOP (20:50)
[2024-12-23] MEDS ORDERED: HOME MED LIST COMPLETE! XX SCH (20:55)
[2024-12-23] MEDS: DOCUSATE SODIUM 100MG CAPSULE PO SCH (21:00)
[2024-12-23 21:22] LABS: CK-MB VALUE MASS 7.1 NG/ML (<3.6)
[2024-12-23 21:24] LABS: MB/CK RELATIVE INDEX 0.67 (< OR =4)
[2024-12-23] MEDS: AZITHROMYCIN INJ 500 MG, VIAL MATE ADAPTER 1 EACH in NS 250 ML IV ONE (21:33)
[2024-12-23] MEDS: PANTOPRAZOLE 40MG VIAL IV ONE (21:33)
[2024-12-24 00:17] VITALS: BP 141/84; TEMP 96.8; O2SAT 97
[2024-12-24] MEDS: BISACODYL 5MG TAB PO SCH (01:10)
[2024-12-24] MEDS: busPIRone 5 MG TAB PO SCH (01:11)
[2024-12-24] MEDS: GABAPENTIN 300 MG CAP PO SCH (01:11)
[2024-12-24] MEDS: FAMOTIDINE 20 MG TAB PO SCH (01:11)
[2024-12-24] MEDS: NORCO, ANEXSIA 5/325MG TABLET (HYDROcodone/ACETAMINOPHEN) PO SCH (01:11)
[2024-12-24] MEDS: tiZANidine 4 MG TAB PO SCH (01:12)
[2024-12-24] MEDS: ESCITALOPRAM OXALATE 10 MG TAB (LEXAPRO) PO SCH (01:12)
[2024-12-24] MEDS: TRIHEXYPHENIDYL 2 MG TAB PO SCH (01:14)
[2024-12-24] MEDS: IPRATROPIUM 0.5MG/ALBUTEROL 2.5MG INH SOL UD 3ML (DUONEB) NEB SCH (02:00)
[2024-12-24 04:19] VITALS: BP 122/64; TEMP 96.8; O2SAT 96
[2024-12-24] MEDS: LEVOTHYROXINE 50MCG TABLET (0.05MG) PO SCH (06:03)
[2024-12-24 08:03] LABS: BASO % 0.3 % (0.0-1.0); EOS # 0.1 10^3/uL (0.0-0.5); EOS % 1.2 % (0.0-3.0); HEMATOCRIT 40.5 % (42.0-52.0); LYMPH # 1.5 10^3/uL (1.5-5.0); LYMPH % 17.5 % (24.0-44.0); MEAN CORPUSCULAR HEMOGLOBIN 28.7 pg (27.0-33.0); MEAN CORPUSCULAR HGB CONC 32.1 g/dl (32.0-36.5); MEAN CORPUSCULAR VOLUME 89.4 fl (80.0-96.0); MONO # 0.9 10^3/uL (0.0-0.8); MONO % 10.5 % (2.0-8.0); NEUTROPHILS # 6.1 10^3/uL (1.5-8.5); NEUTROPHILS % 69.9 % (36.0-66.0); PLATELET COUNT, AUTOMATED 192 10^3/uL (150-450); RED BLOOD COUNT 4.53 10^6/uL (4.30-6.10); WHITE BLOOD COUNT 8.7 10^3/uL (4.0-10.0)
[2024-12-24 08:27] LABS: BLOOD UREA NITROGEN 15 MG/DL (9-23); CALCIUM LEVEL 8.9 MG/DL (8.5-10.1); CARBON DIOXIDE LEVEL 25 MMOL/L (20-31); CHLORIDE LEVEL 105 MMOL/L (98-107); CREATININE FOR GFR 1.06 MG/DL (0.70-1.30); GLOMERULAR FILTRATION RATE > 60.0 (>56); GLUCOSE, FASTING 121 MG/DL (60-100); POTASSIUM SERUM 3.6 MMOL/L (3.5-5.1); SODIUM LEVEL 142 MMOL/L (136-145)
[2024-12-24 08:31] LABS: CPK CREATINE PHOSPHOKINASE 941 U/L (46-171)
[2024-12-24] MEDS ORDERED: METOPROLOL TART 12.5 MG PER 1/2 TAB PO SCH (09:00)
[2024-12-24] MEDS: ENOXAPARIN 40MG/0.4ML SYRINGE (J1650 PER 10MG) SC SCH (09:19)
[2024-12-24] MEDS: ASPIRIN 81MG ENTERIC TABLET PO SCH (09:20)
[2024-12-24] MEDS: MONTELUKAST 10 MG TAB PO SCH (09:20)
[2024-12-24] MEDS: ATORVASTATIN 20 MG TAB PO SCH (09:20)
[2024-12-24] MEDS: TOPIRAMATE (TopAMAX) 25 MG TAB PO SCH (09:20)
[2024-12-24] MEDS: CETIRIZINE (ZyrTEC) 10 MG TAB PO SCH (09:22)
[2024-12-24] MEDS: OMEPRAZOLE 20MG CAP PO SCH (09:24)
[2024-12-24 12:22] VITALS: BP 112/64; TEMP 97.3; O2SAT 95
[2024-12-24] MEDS ORDERED: MIRALAX *UNIT DOSE* 17GM PACKET PO PRN (13:35)
[2024-12-24] MEDS: SALMETEROL DISKUS 50MCG INHALER (SEREVENT) INH SCH (19:40)
[2024-12-24 20:00] VITALS: BP 149/90; TEMP 98.7; O2SAT 97
[2024-12-24] MEDS: AZITHROMYCIN 250MG TABLET PO SCH (20:38)
[2024-12-24] MEDS: cefTRIAXone SOD 2 GM in DEXTROSE 5% (D5W) ADV/MINI-BAG 50 ML IV SCH (20:42)
[2024-12-24] MEDS: MINOCYCLINE 50 MG CAP PO SCH (21:09)
[2024-12-25 05:03] VITALS: BP 99/60; TEMP 99; O2SAT 95
[2024-12-25 07:14] LABS: BASO % 0.4 % (0.0-1.0); EOS # 0.1 10^3/uL (0.0-0.5); EOS % 1.7 % (0.0-3.0); HEMATOCRIT 41.3 % (42.0-52.0); HEMOGLOBIN 13.2 g/dl (13.5-17.5); LYMPH % 18.1 % (24.0-44.0); MEAN CORPUSCULAR HEMOGLOBIN 29.1 pg (27.0-33.0); MONO # 0.9 10^3/uL (0.0-0.8); MONO % 16.4 % (2.0-8.0); NEUTROPHILS # 3.3 10^3/uL (1.5-8.5); NEUTROPHILS % 62.4 % (36.0-66.0); PLATELET COUNT, AUTOMATED 219 10^3/uL (150-450); RED BLOOD COUNT 4.54 10^6/uL (4.30-6.10); WHITE BLOOD COUNT 5.2 10^3/uL (4.0-10.0)
[2024-12-25 07:37] LABS: BLOOD UREA NITROGEN 12 MG/DL (9-23); CALCIUM LEVEL 8.4 MG/DL (8.5-10.1); CARBON DIOXIDE LEVEL 27 MMOL/L (20-31); CHLORIDE LEVEL 105 MMOL/L (98-107); GLOMERULAR FILTRATION RATE > 60.0 (>56); GLUCOSE, FASTING 107 MG/DL (60-100); POTASSIUM SERUM 3.6 MMOL/L (3.5-5.1); SODIUM LEVEL 143 MMOL/L (136-145)
[2024-12-25] MEDS: CEFDINIR 300 MG CAP (OMNICEF) PO SCH (09:19)
[2024-12-25] MEDS ORDERED: AZIT-12 PO (10:04)
[2024-12-25] MEDS ORDERED: CEFD300CAP PO (10:04)
== END 2024-12-25 13:54 | disposition home or self-care (01) | DRG 720 ==
LOC: EDBD 15:17 → M ED 15:17 → M ED INP 18:57 → M MS4PR 12-24 00:10
PROVIDERS: ADMIT Internal Medicine Nephrology; ATTEND Student in an Organized Health Care Education/Training Program
DX: A41.59 Other Gram-negative sepsis (principal); J15.69 Pneumonia due to other Gram-negative bacteria; I13.0 Hypertensive heart and chronic kidney disease with heart failure and stage 1 through stage 4 chronic kidney disease, or unspecified chronic kidney disease; M62.82 Rhabdomyolysis; Z68.42 Body mass index [BMI] 45.0-49.9, adult; J44.0 Chronic obstructive pulmonary disease with (acute) lower respiratory infection; I50.9 Heart failure, unspecified; E66.01 Morbid (severe) obesity due to excess calories; J44.1 Chronic obstructive pulmonary disease with (acute) exacerbation; N18.30 Chronic kidney disease, stage 3 unspecified; K76.0 Fatty (change of) liver, not elsewhere classified; G47.33 Obstructive sleep apnea (adult) (pediatric); I25.10 Atherosclerotic heart disease of native coronary artery without angina pectoris; E03.9 Hypothyroidism, unspecified; K21.9 Gastro-esophageal reflux disease without esophagitis; K90.0 Celiac disease; G43.909 Migraine, unspecified, not intractable, without status migrainosus; M54.81 Occipital neuralgia; F32.A Depression, unspecified; F41.0 Panic disorder [episodic paroxysmal anxiety]; M17.11 Unilateral primary osteoarthritis, right knee; G89.29 Other chronic pain; Z87.891 Personal history of nicotine dependence; Z79.82 Long term (current) use of aspirin; Z79.890 Hormone replacement therapy; Z79.899 Other long term (current) drug therapy; Z91.040 Latex allergy status; Z91.048 Other nonmedicinal substance allergy status; Z88.5 Allergy status to narcotic agent; Z95.5 Presence of coronary angioplasty implant and graft; Z86.711 Personal history of pulmonary embolism; K22.70 Barrett's esophagus without dysplasia; E04.1 Nontoxic single thyroid nodule

== ENCOUNTER 2025-01-05 14:42 | Emergency (ER) | payer MEDICAID, OTHER ==
[~2025-01-05] VITALS: Ht 172.7 cm; Wt 136.1 kg
[~2025-01-05 14:42] MED LIST changes: +AZIT-12 PO; +CEFD300CAP PO; +NYST100084 TOP; +POLY17PO18 PO
[2025-01-05 15:24] LABS: BASO % 0.5 % (0.0-1.0); EOS # 0.1 10^3/uL (0.0-0.5); EOS % 1.6 % (0.0-3.0); HEMATOCRIT 45.2 % (42.0-52.0); LYMPH # 1.4 10^3/uL (1.5-5.0); LYMPH % 23.3 % (24.0-44.0); MEAN CORPUSCULAR HGB CONC 33.2 g/dl (32.0-36.5); MEAN CORPUSCULAR VOLUME 87.3 fl (80.0-96.0); MONO # 0.8 10^3/uL (0.0-0.8); MONO % 12.3 % (2.0-8.0); NEUTROPHILS # 3.8 10^3/uL (1.5-8.5); PLATELET COUNT, AUTOMATED 327 10^3/uL (150-450); RED BLOOD COUNT 5.18 10^6/uL (4.30-6.10); WHITE BLOOD COUNT 6.2 10^3/uL (4.0-10.0)
[2025-01-05 15:37] LABS: INR 0.99; PROTHROMBIN TIME 13.4 SECONDS (12.5-14.5)
[2025-01-05 15:50] LABS: LIPASE 28 U/L (12-53)
[2025-01-05 15:53] LABS: ALBUMIN 3.9 G/DL (3.2-5.2); ALKALINE PHOSPHATASE 110 U/L (40-129); ALT/SGPT 23 U/L (7.0-40); AST/SGOT 28 U/L (<34); BILIRUBIN,DIRECT 0.2 MG/DL (<0.4); BILIRUBIN,TOTAL 0.8 MG/DL (0.3-1.2); BLOOD UREA NITROGEN 12 MG/DL (9-23); CALCIUM LEVEL 8.9 MG/DL (8.5-10.1); CARBON DIOXIDE LEVEL 25 MMOL/L (20-31); CHLORIDE LEVEL 105 MMOL/L (98-107); CK-MB VALUE MASS 3.1 NG/ML (<3.6); CREATININE FOR GFR 1.21 MG/DL (0.70-1.30); GLOMERULAR FILTRATION RATE > 60.0 (>56); GLUCOSE, FASTING 122 MG/DL (60-100); POTASSIUM SERUM 4.1 MMOL/L (3.5-5.1); SODIUM LEVEL 139 MMOL/L (136-145); TOTAL PROTEIN 7.1 G/DL (5.7-8.2)
[2025-01-05 15:55] LABS: CPK CREATINE PHOSPHOKINASE 398 U/L (46-171); MB/CK RELATIVE INDEX 0.77 (< OR =4)
[2025-01-05 18:43] VITALS: BP 164/97; TEMP 97.2; O2SAT 99
== END 2025-01-05 18:52 | disposition home or self-care (01) ==
LOC: M ED 14:42
DX: R07.9 Chest pain, unspecified (principal); G43.909 Migraine, unspecified, not intractable, without status migrainosus; I10 Essential (primary) hypertension; E78.5 Hyperlipidemia, unspecified; J44.9 Chronic obstructive pulmonary disease, unspecified; G47.30 Sleep apnea, unspecified; K21.9 Gastro-esophageal reflux disease without esophagitis; N18.30 Chronic kidney disease, stage 3 unspecified; K76.0 Fatty (change of) liver, not elsewhere classified; F90.9 Attention-deficit hyperactivity disorder, unspecified type; Z79.52 Long term (current) use of systemic steroids; Z79.82 Long term (current) use of aspirin; Z79.02 Long term (current) use of antithrombotics/antiplatelets; Z79.2 Long term (current) use of antibiotics; Z79.899 Other long term (current) drug therapy; Z87.442 Personal history of urinary calculi; Z88.5 Allergy status to narcotic agent; Z91.040 Latex allergy status; Z91.048 Other nonmedicinal substance allergy status

== ENCOUNTER 2025-01-22 23:39 | Emergency (ER) | payer OTHER ==
[~2025-01-22] VITALS: Ht 172.7 cm; Wt 134.0 kg
[~2025-01-22 23:39] MED LIST changes: -FLOM0.4C39 PO; +TAMS-18 PO; +TOPI-256 PO; -TOPI25TA10 PO
[2025-01-23 06:14] LABS: MEAN CORPUSCULAR HEMOGLOBIN 28.7 pg (27.0-33.0); MEAN CORPUSCULAR HGB CONC 32.6 g/dl (32.0-36.5); MEAN CORPUSCULAR VOLUME 88.3 fl (80.0-96.0); PLATELET COUNT, AUTOMATED 267 10^3/uL (150-450); RED BLOOD COUNT 4.87 10^6/uL (4.30-6.10); WHITE BLOOD COUNT 6.2 10^3/uL (4.0-10.0)
[2025-01-23] MEDS: NS (Normal Saline) 0.9% 1,000 ML IV ONE (06:23)
[2025-01-23] MEDS: KETOROLAC 30 MG/ML 1ML VIAL IV ONE (06:24)
[2025-01-23] MEDS: ONDANSETRON 4MG 2ML VIAL IV ONE (06:24)
[2025-01-23 06:30] VITALS: BP 117/69; TEMP 97.2; O2SAT 93
[2025-01-23 06:38] LABS: ATYPICAL LYMPH 2 % (0-5); BASOPHILS 1 % (0-1); EOSINOPHILS 3 % (0-3); LYMPHOCYTES 35 % (16-44); MONOCYTES 11 % (0-5); NEUTROPHILS 48 % (28-66)
[2025-01-23 06:39] LABS: ANISOCYTOSIS 1+; PLATELET ESTIMATE NORMAL (NORMAL)
[2025-01-23 06:41] LABS: ALBUMIN 3.6 G/DL (3.2-5.2); BILIRUBIN,DIRECT 0.1 MG/DL (<0.4); BILIRUBIN,TOTAL 0.4 MG/DL (0.3-1.2); CREATININE FOR GFR 1.33 MG/DL (0.70-1.30); GLOMERULAR FILTRATION RATE 62.3 (>56); POTASSIUM SERUM 4.6 MMOL/L (3.5-5.1); TOTAL PROTEIN 6.8 G/DL (5.7-8.2)
[2025-01-23] MEDS ORDERED: ISOVUE-370 76% 100ML VIAL As Ordered ONE (07:19)
[2025-01-23] MEDS: LIDOCAINE 2% 5ML JELLY UROJET TOP ONE (09:09)
[2025-01-23 09:34] LABS: KETONE, URINE AUTO RFX NEGATIVE (NEGATIVE); LEUKOCYTE ESTERASE UR AUTO RFX 1+ (NEGATIVE); MUCUS, URINE RFX SMALL (NEGATIVE); NITRITE, URINE AUTO RFX NEGATIVE (NEGATIVE); RBC, URINE AUTO RFX 34 /HPF (0-3); SQUAM EPITHELIAL CELL UR AURFX 0 /HPF (0-6); WBC, URINE AUTO RFX 34 /HPF (0-3)
[2025-01-23] MEDS ORDERED: TAMS-18 PO (10:29)
[2025-01-23] MEDS ORDERED: BACT800T5 PO (10:29)
[2025-01-23] MEDS: BACTRIM 160MG/800MG DS TAB PO ONE (10:41)
[2025-01-23] MEDS: TAMSULOSIN 0.4 MG CAP PO ONE (10:41)
== END 2025-01-23 11:17 | disposition home or self-care (01) ==
LOC: M ED 23:39 → EDBD 23:39 → M ED 01-23 11:17
DX: R10.9 Unspecified abdominal pain (principal); N39.0 Urinary tract infection, site not specified; K21.9 Gastro-esophageal reflux disease without esophagitis; E55.9 Vitamin D deficiency, unspecified; F90.9 Attention-deficit hyperactivity disorder, unspecified type; F19.10 Other psychoactive substance abuse, uncomplicated; Z88.5 Allergy status to narcotic agent; Z91.040 Latex allergy status; Z91.09 Other allergy status, other than to drugs and biological substances; Z79.1 Long term (current) use of non-steroidal anti-inflammatories (NSAID); Z79.51 Long term (current) use of inhaled steroids; Z79.2 Long term (current) use of antibiotics; Z79.899 Other long term (current) drug therapy
CPT/HCPCS: 74177; 80047; 80048; 80076; 81001; 82150; 83605; 83690; 85025; 87086; 87486; 87581; 87633; 87798; 93041; 96374; 99284; J1885; J2405; Q9967

== ENCOUNTER 2025-01-29 18:43 | Emergency (ER) | payer OTHER ==
[~2025-01-29] VITALS: Ht 172.7 cm; Wt 136.3 kg
[2025-01-29 18:50] VITALS: BP 124/78; TEMP 98; O2SAT 99
== END 2025-01-29 22:17 | disposition home or self-care (01) ==
LOC: M ED 18:43
DX: S80.912A Unspecified superficial injury of left knee, initial encounter (principal); M25.562 Pain in left knee; W01.0XXA Fall on same level from slipping, tripping and stumbling without subsequent striking against object, initial encounter; M54.50 Low back pain, unspecified; Y92.009 Unspecified place in unspecified non-institutional (private) residence as the place of occurrence of the external cause; Y93.89 Activity, other specified; Y99.9 Unspecified external cause status; Z88.5 Allergy status to narcotic agent; Z91.040 Latex allergy status; Z91.048 Other nonmedicinal substance allergy status; Z79.52 Long term (current) use of systemic steroids; Z79.82 Long term (current) use of aspirin; Z79.02 Long term (current) use of antithrombotics/antiplatelets; Z79.899 Other long term (current) drug therapy

== ENCOUNTER → 2025-05-12 | Outpatient (CLI) | payer OTHER ==
[~2025-05-12] MED LIST changes: +AMMO12CR4 TOP; -AMMO12CR7 TOP; +CEFD1CAP9 PO; +CIPR500T39 PO; +DIVA-41 PO; -DIVA500T94 PO; +LIDO1ADH93 TOP; -LIDO5DIS41 TOP
== END ==
LOC: M PLAIMG 11:56
PROVIDERS: ATTEND Nurse Practitioner Family
DX: M51.379 Other intervertebral disc degeneration, lumbosacral region without mention of lumbar back pain or lower extremity pain (principal); N20.0 Calculus of kidney

== ENCOUNTER 2025-06-26 20:07 | Emergency (ER) | payer OTHER ==
[~2025-06-26] VITALS: Ht 172.7 cm; Wt 126.0 kg
[~2025-06-26 20:07] MED LIST changes: -IBUP-1022 PO; +IBUP600T42 PO
[2025-06-27 02:00] VITALS: BP 136/97; TEMP 97; O2SAT 97
== END 2025-06-27 02:08 | disposition home or self-care (01) ==
LOC: M ED 20:07
DX: M25.552 Pain in left hip (principal); J44.9 Chronic obstructive pulmonary disease, unspecified; I10 Essential (primary) hypertension; G43.909 Migraine, unspecified, not intractable, without status migrainosus; Z86.79 Personal history of other diseases of the circulatory system; Z88.5 Allergy status to narcotic agent; Z91.040 Latex allergy status; Z91.048 Other nonmedicinal substance allergy status; Z79.52 Long term (current) use of systemic steroids; Z79.82 Long term (current) use of aspirin; Z79.02 Long term (current) use of antithrombotics/antiplatelets; Z79.899 Other long term (current) drug therapy

== ENCOUNTER 2025-07-05 01:00 | Emergency (ER) | payer MEDICAID, OTHER ==
[~2025-07-05] VITALS: Ht 170.2 cm; Wt 128.1 kg
[2025-07-05] MEDS: PERCOCET 5MG/325MG TAB PO ONE (03:20)
[2025-07-05] MEDS ORDERED: PERC5TAB12 PO (04:20)
[2025-07-05 04:31] VITALS: BP 141/79; TEMP 97.1; O2SAT 98
== END 2025-07-05 04:45 | disposition home or self-care (01) ==
LOC: M ED 01:00
DX: S06.0X0A Concussion without loss of consciousness, initial encounter (principal); S70.02XA Contusion of left hip, initial encounter; W01.198A Fall on same level from slipping, tripping and stumbling with subsequent striking against other object, initial encounter; K21.9 Gastro-esophageal reflux disease without esophagitis; I25.2 Old myocardial infarction; N18.4 Chronic kidney disease, stage 4 (severe); F90.9 Attention-deficit hyperactivity disorder, unspecified type; F32.A Depression, unspecified; F41.9 Anxiety disorder, unspecified; M50.222 Other cervical disc displacement at C5-C6 level; M50.223 Other cervical disc displacement at C6-C7 level; Z86.79 Personal history of other diseases of the circulatory system; Z88.5 Allergy status to narcotic agent; Z91.040 Latex allergy status; Z91.048 Other nonmedicinal substance allergy status; Y92.009 Unspecified place in unspecified non-institutional (private) residence as the place of occurrence of the external cause; Y93.89 Activity, other specified; Y99.9 Unspecified external cause status; Z79.52 Long term (current) use of systemic steroids; Z79.82 Long term (current) use of aspirin; Z79.02 Long term (current) use of antithrombotics/antiplatelets; Z79.2 Long term (current) use of antibiotics; Z79.899 Other long term (current) drug therapy

== ENCOUNTER → 2025-09-05 | Outpatient (CLI) | payer MEDICAID, OTHER ==
[2025-09-05 10:23] LABS: BASO # 0.0 10^3/uL (0.0-0.2); BASO % 0.6 % (0.0-1.0); EOS # 0.2 10^3/uL (0.0-0.5); EOS % 3.3 % (0.0-3.0); LYMPH # 1.3 10^3/uL (1.5-5.0); LYMPH % 20.4 % (24.0-44.0); MONO # 1.2 10^3/uL (0.0-0.8); MONO % 18.5 % (2.0-8.0); NEUTROPHILS # 3.6 10^3/uL (1.5-8.5); NEUTROPHILS % 56.7 % (36.0-66.0); PLATELET COUNT, AUTOMATED 221 10^3/uL (150-450)
[2025-09-05 10:54] LABS: ALT/SGPT 16.0 U/L (7.0-40); AST/SGOT 20.0 U/L (<34); CALCIUM LEVEL 9.0 MG/DL (8.5-10.1); CARBON DIOXIDE LEVEL 29.0 MMOL/L (20-31); CHLORIDE LEVEL 103.0 MMOL/L (98-107); CREATININE FOR GFR 1.18 MG/DL (0.70-1.30); GLOMERULAR FILTRATION RATE 71.5 (>56); POTASSIUM SERUM 4.4 MMOL/L (3.5-5.1); SODIUM LEVEL 139.0 MMOL/L (136-145)
== END ==
LOC: M LAB 08:51
PROVIDERS: ATTEND Physician Assistant
DX: L13.0 Dermatitis herpetiformis (principal)